=== PATIENT | female | born 1945 | race Caucasian/White ===

== ENCOUNTER 2022-01-06 17:58 | Outpatient (CLI) | payer MEDICARE, SELFPAY ==
[2022-01-06 22:15] LABS: SARS PCR* Negative SARS-CoV-2 (Negative)
== END 2022-01-06 17:59 | disposition home or self-care (01) ==
LOC: KYNREF 17:59
PROVIDERS: PCP Nurse Practitioner Family; Visit Provider Nurse Practitioner Family
DX: Z11.52 Encounter for screening for COVID-19 (principal); R05.9 Cough, unspecified
CPT/HCPCS: 87635

== ENCOUNTER 2022-01-19 09:32 | Outpatient (CLI) | payer MEDICARE, SELFPAY ==
[2022-01-19 13:29] LABS: Basophils Absolute Auto 0.06 K/uL (0.00-0.30); Basophils Percent Auto 0.8 % (0.0-3.0); Eosinophils Absolute Auto 0.13 K/uL (0.00-0.50); Eosinophils Percent Auto 1.8 % (0.0-7.0); Hematocrit 40.7 % (33.0-51.0); Hemoglobin* 13.6 gm/dL (12.0-16.0); Immature Granulocytes Abs Auto 0.01 K/uL (0.00-0.30); Lymphocytes Absolute Auto 1.71 K/uL (0.90-2.90); Lymphocytes Percent Auto 23.1 % (20-44); Mean Corpuscular HGB Conc 33 gm/dL (32-36); Mean Corpuscular Hemoglobin 31 pg (26-34); Mean Corpuscular Volume 93 fL (80-100); Monocytes Percent Auto 7.2 % (0.0-11.0); Neutrophils Absolute Auto 4.95 K/uL (1.7-7.0); Platelet Count* 345 K/uL (140-440); RDW Coefficient of Variation % 12.2 % (11.5-15.5); Red Blood Count 4.38 m/uL (4.00-5.20); White Blood Count* 7.39 K/uL (4.50-11.00)
[2022-01-19 13:46] LABS: Slide Review Reflex No
[2022-01-19 14:07] LABS: Chloride* 99 mmol/L (96-114)
[2022-01-19 14:08] LABS: Potassium* 4.3 mmol/L (3.6-5.1); Sodium* 134 mmol/L (135-149)
[2022-01-19 14:10] LABS: Cholesterol* 216 mg/dL (90-199); Creatinine* 0.8 mg/dL (0.5-1.5); Estimated Glomerular Filt Rate 77 ml/min
[2022-01-19 14:11] LABS: Blood Urea Nitrogen* 13 mg/dL (7-30); Calcium* 9.9 mg/dL (8.4-10.6); Carbon Dioxide* 27 mmol/L (20-32); Glucose* 107 mg/dL (60-115); HDL Cholesterol* 63 mg/dL (>=50); LDL Cholesterol Calculated 130 mg/dL (<100); Triglycerides* 114 mg/dL (40-149)
== END 2022-01-19 09:33 | disposition home or self-care (01) ==
PROVIDERS: PCP Nurse Practitioner Family; Visit Provider Nurse Practitioner Family
DX: Z00.00 Encounter for general adult medical examination without abnormal findings (principal); Z13.0 Encounter for screening for diseases of the blood and blood-forming organs and certain disorders involving the immune mechanism; Z13.1 Encounter for screening for diabetes mellitus; Z13.6 Encounter for screening for cardiovascular disorders
CPT/HCPCS: 36415; 80048; 80061; 85025

== ENCOUNTER 2022-02-13 09:03 | Outpatient (CLI) | payer MEDICARE, SELFPAY ==
--- OUTSIDE RECORDS SUMMARY | 2022-02-13 09:14 | XMS_ITS | Encounter Summary ---
:1945 Author Organization [facility] Address [address] [place] [address] Care Team Providers Name Role Phone Tigre Preciado P.A.-C. Primary Care Provider [phone] Reason for Visit Reason Comments Mouth Lesions Appointment Request (Routine) - Closed Specialty Diagnoses / Procedures Referred By Contact Refer red To Contact Family Medicine Referral ID Status Reason Start Date Expiration Date Visits Requ ested Visits Authorized [id number] Closed 06/30/2021 06/30/2022 1 1 Encounter Details Date Type Department Care Team Description 07/02/2021 Office Visit Department of Family Tigre Preciado Ca ndidiasis Oral (Primary Dx); Medicine, Jeff Edmondson Asthma ([facility]) Clinic, in [address] [address] [place], [place] [phone] (Work) [phone] Social History Tobacco Use Types Packs/Day Years Used Date Smoking Tobacco: Former Cigarettes Quit : 1968 Smokeless Tobacco: Never Alcohol Use Standard Drinks/Week Comments Yes 5 (1 standard drink = 0.6 oz pure alcoho l) Physical Activity Answer Date Recorded On average, how many days per week do you engage in moderate to 3 days 12/01/2019 strenuous exercise (like walking fast, running, jogging, dancing, swimming, biking, or other activities that cause a light or heavy sweat)? On average, how many minutes do you engage in exercise at th is 60 min 12/01/2019 level? Stress Answer Date Recorded Do you feel stress - tense, restless, nervous, or Only a lit tle 12/01/2019 anxious, or unable to sleep at night because your mind is troubled all the time - these days? Financial Resource Strain Answer Date Recorded How hard is it for you to pay for the very basics like Not h luiza at all 12/01/2019 food, housing, medical care, and heating? Food Insecurity Answer Date Recorded Within the past 12 months, you worried that your food would Never true 12/01/2019 run out before you got money to buy more. Within the past 12 months, the food you bought just didn't N ever true 12/01/2019 last and you didn't have money to get more. Transportation Needs Answer Date Recorded In the past 12 months, has lack of transportation kept you f rom No 12/01/2019 medical appointments or from getting medications? In the past 12 months, has lack of transportation kept you f rom No 12/01/2019 meetings, work, or getting things needed for daily living? Sex Assigned at Date Recorded Female 01/14/2021 8:28 AM CDT documented as of this encounter Last Filed Vital Signs Vital Sign Reading Time Taken Comments Blood Pressure 139/83 07/02/2021 9:16 AM CDT Pulse 84 07/02/2021 9:16 AM CDT Temperature 36.7 ??C (98.1 ??F) 07/02/2021 9:11 AM CDT Respiratory Rate 16 07/02/2021 9:11 AM CDT Oxygen Saturation - - Inhaled Oxygen Concentration - - Weight 57.6 kg (126 lb 15.8 oz) 07/02/2021 9:11 AM CDT Height - - Body Mass Index 22.22 01/27/2021 1:24 PM CDT documented in this encounter Progress Notes Tigre Preciado P.A.-C. - 07/02/2021 9:30 AM CDT SUBJECTIVE CHIEF COMPLAINT / REASON FOR VISIT Isadora Back is a 76 y.o. female who presents for evaluation of Mouth Lesions. HISTORY OF PRESENT ILLNESS Isadora presents today with complaints of a sore inside her mouth. She has a history of oral candidiasis in the past has responded nicely to nystatin. She has been trying some different toothpaste and this may have causing irritation. She does also have some asthma she had pulmonary function testing donelast year I did review this with her there was not a significant response to bronchodilators. She continues to use albuterol on an as-needed basis. OBJECTIVE Vitals: 07/02/21 0911 07/02/21 0916 BP: 150/82 139/83 BP Location: Right arm Right arm Patient Position: Sitting Sitting Cuff Size: Regular Regular Pulse: 89 84 Resp: 16 Temp: 36.7 ??C TempSrc: Temporal Weight: 57.6 kg Body mass index is 22.22 kg/m??. PHYSICAL EXAMINATION In general she appears in no acute distress Heart: Regular rate rhythm no murmurs Lungs: Clear to auscultation ENT: Oropharynx is moist she does have a whitish colored looking lesions inside of her lower lip these are mildly tender consistent with thrush ASSESSMENT / PLAN #1 Candidiasis Oral I am going to treated with nystatin swish and swallow. If her symptoms worsen or not improve she will let us know #2 Asthma (HCC) She will continue to use the albuterol as needed. It would be reasonable to try some Singulair when her symptoms flare. I called this in for her. She is in agreement with this plan if she has any further questions or problems she will let us know. Tigre Preciado P.A.-C. 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 PCP - General Family Medicine 10/11/19 [address] [place] [address] documented as of this encounter
--- OUTSIDE RECORDS SUMMARY | 2022-02-13 09:14 | XMS_ITS | Clinical Summary ---
:1945 Author Organization [facility] Address [address] [place] [address] Care Team Providers Name Role Phone Tigre Preciado P.A.-C. Primary Care Provider [phone] Source Comments Patient records contain information from all sites at [facility]. For routine questions regarding patient records, call [phone] during business hours, M-F 8:00 AM - 5:00 PM Central Time. Record requests for emergency care only can be directed to [phone] at any time.[facility] Allergies Active Allergy Reactions Severity Noted Date Comments Cefuroxime Axetil GI intolerance Medium 06/02/2017 Other re action(s): GI Upset Ciprofloxacin Tendonitis 08/05/2012 Other reaction (s): Myalgia Fluconazole Other (see comments), High 01/20/2010 Lip bl ister, Anaphylaxis throat closing Latex Rash 03/24/2015 Lidocaine-Epinephrine Palpitations 11/07/2014 Metronidazole Tendonitis 08/05/2012 Other reaction (s): Myalgia Sulfa (Sulfonamide Nausea Only 02/28/2013 Antibiotics) Medications Medication Sig Dispensed Refills Start Date End Date Status CRANBERRY FRUIT cranberry oral 0 08/13/2016 Active EXTRACT (CRANBERRY tablet PRN: ORAL) Urinary discomfort LACTOBACILLUS Take by mouth 0 10/05/2012 A ctive ACIDOPHILUS daily. (ACIDOPHILUS ORAL) calcium Chew 1 tablet. 0 11/07/2009 Acti ve carbonate-vitamin D3 1,250 mg (500 mg calcium)-400 unit per chewable tablet multivitamin tablet Take 1 tablet by 0 06/28/2009 Active mouth. magnesium 200 mg Take 400 mg by 0 Active tablet mouth daily. vitamin Take 1 tablet by 0 Act angelique A,C,A-uyjbbc-zrvtrkby mouth daily. (OCUVITE W/LUTEIN) 1,000 Unit-200 mg-60 Unit-2 mg tablet bromelains (PINEAPPLE Take by mouth 2 0 Active EXTRACT ORAL) (two) times a day. dicyclomine (BENTYL) Take 1 capsule 180 capsule 3 10/31/2020 Active 10 mg capsule (10 mg total) by mouth 4 (four) times a day as needed (abdominal pain or cramps). SUMAtriptan (IMITREX) Take 1 tablet (25 9 tablet 5 05/30/2021 Active 25 mg tablet mg total) by mouth as needed for migraine. May repeat dose once in 2 hours if migraine unresolved. nystatin (MYCOSTATIN) Take 5 mL 280 mL 0 07/02/2021 Active 100,000 unit/mL (500,000 Units suspension total) by mouth 4 (four) times a day. Swish in mouth and swallow albuterol 90 Inhale 2 puffs 8 g 3 07/02/2021 A ctive mcg/actuation inhaler every 4 (four) hours as needed for wheezing. montelukast Take 1 tablet (10 90 tablet 3 07/02/2021 Active (SINGULAIR) 10 mg mg total) by tablet mouth at bedtime. Active Problems Problem Noted Date Cystocele 12/01/2019 Overview: Grade 2-3 cystocele present. Prefers to manage with referral to [facility] and accupuncture at this time. Last Assessment & Plan: Referral to [facility] was completed in f axed. 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 We also discussed management options with vaginal estrogen therapy, pessary, or surgical intervent ion. She is not interested in these opti ons at this time. I recommend she follow up as needed in the future. Hyponatremia 11/13/2019 Neuropathy Peripheral 06/14/2018 Osteoporosis 07/20/2017 Anxiety 03/19/2013 Polyp Colon Personal History 11/10/2012 Asthma 07/12/2009 Resolved Problems Problem Noted Date Resolved Date Cheilitis Angular 12/01/2019 12/30/2020 Overview: Prescription for miconazole 2% ointment was faxed to her pharmacy and she will apply 2 times daily for up to 30 days. If symptoms do not improve I recommend she follow up with her primary care provider or contact me. At this point she has no additional concerns or questions and is agreeable to this plan of care. Immunizations Name Administration Dates Next Due Influenza, Injectable, Quadrivalent 02/19/2020 Influenza, Seasonal, Injectable 04/06/2012, 01/21/2009, 11/0 06/2007, 02/15/2007, 02/24/2006 Influenza, Unspecified 03/07/2014, 02/16/2013, 04/06/2012 PCV13 05/29/2014 PPSV23 04/08/2012 RZV (SHINGRIX) 02/21/2020 (Deferred: Other) SARS-COV-2 (COVID-19) - MODERNA 07/04/2020, 06/06/2020 Td (Adult), adsorbed 01/23/2003 Tdap 04/03/2013 Zoster, Unspecified 02/21/2020 (Deferred: Other) influenza vaccine quad 02/03/2021, 02/19/2020 (FLUZONE/FLUARIX) (6 months and older)(PF) Family History Medical History Relation Name Comments Cancer Brother tibozena laryngeal cancer Cancer Father laryngeal cancer Hypertension Father Breast cancer Mother COPD Mother Diabetes Mother Hypertension Mother Macular degeneration Mother Breast cancer Mother's Sister Coronary artery disease Sister nara Pacemaker pulse generator Sister nara Retinal detachment Sister nara Relation Name Status Comments Brother tibozena (Age 52) Father (Age 80) Mother (Age 90) Mother's Sister Sister nara Alive Social History Tobacco Use Types Packs/Day Years Used Date Smoking Tobacco: Former Cigarettes Quit : 1968 Smokeless Tobacco: Never Tobacco Cessation: Counseling Given: Yes Alcohol Use Standard Drinks/Week Comments Yes 5 [...] Date Recorded Female 01/14/2021 8:28 AM CDT Last Filed Vital Signs Vital Sign Reading Time Taken Comments Blood Pressure 139/83 07/02/2021 9:16 AM CDT Pulse 84 07/02/2021 9:16 AM CDT Temperature 36.7 ??C (98.1 ??F) 07/02/2021 9:11 AM CDT Respiratory Rate 16 07/02/2021 9:11 AM CDT Oxygen Saturation 97% 01/27/2021 1:24 PM CDT Inhaled Oxygen Concentration - - Weight 57.6 kg (126 lb 15.8 oz) 07/02/2021 9:11 AM CDT Height 161 cm (5' 3.39) 01/27/2021 1:24 PM CDT Body Mass Index 22.22 01/27/2021 1:24 PM CDT Plan of Treatment Health Maintenance Due Date Last Done Comments CT Colonography 1945 Cologuard 1945 Zoster Vaccines (1 of 2) 1997 Bone Density Scan Monitoring 07/02/2019 07/01/2017 COVID-19 Vaccine (5 - Booster for 12/12/2021 10/17/2021, , Moderna series) 07/04/2020, Additional history exists Mammogram 01/21/2022 01/21/2021, 11/21/2019, 06/14/2018, Additional history exists Visit: Annual, age 65+ 07/02/2022 07/02/2021 Colonoscopy 03/13/2023 03/13/2020, 11/10/2012, 11/10/2012 Colorectal Cancer Surveillance 03/13/2023 DTaP,Tdap,and Td Vaccines (2 - Td 04/03/2023 04/03/2013, or Tdap) Fasting Glucose for Diabetes 10/19/2023 10/18/2020, 020, Screening 10/12/2019, Additional history exists Pneumococcal vaccine (65+ years) Completed 05/29/2014, Hepatitis C Screening Completed 06/01/2016 Depression Screening (Annual Completed 06/26/2021 PHQ-2) Fall Risk Screen (Annual) Completed 06/26/2021 Influenza Vaccine Completed 01/19/2022, 02/03/2021, 02/19/2020, Additional history exists Insurance Payer Benefit Plan / Subscriber ID Effective Dates Phone Addre ss Type Group UCARE UCARE FOR [id number] 2019-Present [phone] [address] [place] [address] Care Teams Night Filler Relationship Specialty Start Date End Date Tigre Preciado P.A.-C. PCP - General Family Medicine 10/11/19 [address] [place] [address]
--- OUTSIDE RECORDS SUMMARY | 2022-02-13 09:14 | XMS_ITS | Encounter Summary ---
:1945 Author Organization [facility] Address [address] [place] [address] Care Team Providers Name Role Phone Tigre Preciado P.A.-C. Primary Care Provider [phone] Encounter Details Date Type Department Care Team Description 02/24/2021 Admin Visit Department of Family Medicine, [address] [address] [facility] [phone] Social History Tobacco Use Types Packs/Day Years Used Date Smoking Tobacco: Former Cigarettes Quit : 1967 Smokeless Tobacco: Never Alcohol Use Standard Drinks/Week [...] minutes do you engage in exercise at is 60 min 12/01/2019 level? 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 PCP - General Family Medicine 10/11/[address] [place] [phone] documented as of this encounter
--- OUTSIDE RECORDS SUMMARY | 2022-02-13 09:14 | XMS_ITS | Encounter Summary ---
:1945 Author Organization [facility] Address [address] [place] [address] Care Team Providers Name Role Phone Tigre Preciado P.A.-C. Primary Care Provider [phone] Reason for Visit Reason Comments Cough productive cough, sinus drai nage, bouts of diarrhea, fatigue for the last four days - diagnosed with bronch itis on 01/07/2021 Outpatient (Routine) - Closed Specialty Diagnoses / Procedures Referred By Contact Refer red To Contact Family Medicine Tigre Preciado P. A.-C. [facility] Region [address] [place] [address] Referral ID Status Reason Start Date Expiration Date Visits Requ ested Visits Authorized [id number] Closed 12/30/2020 12/30/2021 1 1 Encounter Details Date Type Department Care Team Description 01/27/2021 Office Visit Department of [facility] Mary Segovia, Segundo nba Cough (Primary Dx); Medicine, Jeff Edmondson Drip Post Nasal; Clinic, in [place], [address] [facility]; [place], [place] Cerumen Impacted Right [address] [facility] [address] [place], [place] [phone] (Work) [phone] Social History Tobacco Use Types Packs/Day Years [...] Sign Reading Time Taken Comments Blood Pressure 151/84 01/27/2021 1:27 PM CDT Pulse 69 01/27/2021 1:27 PM CDT Temperature 36.2 ??C (97.1 ??F) 01/27/2021 1:24 PM CDT Respiratory Rate 16 01/27/2021 1:24 PM CDT Oxygen Saturation 97% 01/27/2021 1:24 PM CDT Inhaled Oxygen Concentration - - Weight 57.2 kg (126 lb 1.7 oz) 01/27/2021 1:24 PM CDT Height 161 cm (5' 3.39) 01/27/2021 1:24 PM CDT Body Mass Index 22.07 01/27/2021 1:24 PM CDT documented in this encounter Patient Instructions Patient InstructionsWitte, Mary K, P.A.-C. - 01/27/2021 1:30 PM CDT Cetrizine (Zyrtec) once nightly for drainage. documented in this encounter Progress Notes Mary Segovia P.A.-C. - 01/27/2021 1:30 PM CDT SUBJECTIVE CHIEF COMPLAINT/REASON FOR VISIT Chief Complaint Patient presents with ??? Cough productive cough, sinus drainage, bouts of diarrhea, fatigue for the last four days - diagnosed with bronchitis on 01/07/2021 HISTORY OF PRESENT ILLNESS Isadora Back is a pleasant 75 y.o. female who presents to the clinic today for evaluation of upperrespiratory symptoms. Patient reports multiple bouts of bronchitis over the last few months. She has been seen in November, December and now again. Patient woke Wednesday morning with headache at the base of her skull. Patient reports cough which has improved. She continues to have lots of sinus congestion and postnasal drip. With this bout of bronchitis she has also had associated diarrhea, sweats, weakness, brain fog and fatigue. She denies fevers. Patient was at the [facility] this weekend and may have had COVID exposure there. She is fully vaccinated. Patient has been using Mucinex and her grandson's nebulizer. She uses her albuterol inhaler only when she is coughing really hard. REVIEW OF SYSTEMS Pertinent positive ROS are listed above in HPI. Patient Active Problem List Diagnosis ??? Anxiety ??? Polyp Colon Personal History ??? Asthma (HCC) ??? Osteoporosis ??? Neuropathy Peripheral ??? Hyponatremia ??? Cystocele ALLERGIES/CONTRAINDICATIONS Allergies Allergen Reactions ??? Fluconazole Other (see comments) and Anaphylaxis Lip blister, throat closing ??? Cefuroxime Axetil GI intolerance Other reaction(s): GI Upset ??? Azithromycin Nausea Only and GI intolerance Mood changes Other reaction(s): Headache Mood changes ??? Ciprofloxacin Tendonitis Other reaction(s): Myalgia ??? Latex Rash ??? Lidocaine-Epinephrine Palpitations ??? Metronidazole Tendonitis Other reaction(s): Myalgia ??? Sulfa (Sulfonamide Antibiotics) Nausea Only CURRENT MEDICATIONS Current Outpatient Medications: ??? albuterol (PROAIR HFA) 90 mcg/actuation inhaler, Inhale 2 puffs every 4 (four) hours as needed.,Disp: , Rfl: ??? calcium carbonate-vitamin D3 1,250 mg (500 mg calcium)-400 unit per chewable tablet, Chew 1 tablet., Disp: , Rfl: ??? CRANBERRY FRUIT EXTRACT (CRANBERRY ORAL), cranberry oral tablet PRN: Urinary discomfort, Disp: ,Rfl: ??? dicyclomine (BENTYL) 10 mg capsule, Take 1 capsule (10 mg total) by mouth 4 (four) times a day as needed (abdominal pain or cramps)., Disp: 180 capsule, Rfl: 3 ??? LACTOBACILLUS ACIDOPHILUS (ACIDOPHILUS ORAL), Take by mouth daily., Disp: , Rfl: ??? magnesium 200 mg tablet, Take 400 mg by mouth daily., Disp: , Rfl: ??? multivitamin tablet, Take 1 tablet by mouth., Disp: , Rfl: ??? SUMAtriptan (IMITREX) 25 mg tablet, Take 1 tablet (25 mg total) by mouth as needed for migraine.May repeat dose once in 2 hours if migraine unresolved., Disp: 9 tablet, Rfl: 5 ??? vitamin A,C,J-txsacu-wildqxjz (OCUVITE W/LUTEIN) 1,000 Unit-200 mg-60 Unit-2 mg tablet, Take 1 tablet by mouth daily., Disp: , Rfl: ??? bromelains (PINEAPPLE EXTRACT ORAL), Take by mouth 2 (two) times a day., Disp: , Rfl: OBJECTIVE VITAL SIGNS Vitals: 01/27/21 1327 BP: 151/84 Pulse: 69 Resp: Temp: SpO2: PHYSICAL EXAMINATION General: Well-nourished, well-developed 75 y.o. in no apparent distress. Awake, alert, age appropriate. HEENT: Head is normocephalic, atraumatic. Pupils round and reactive bilaterally. EOM's intact. Conjunctivae and sclerae are clear. Right TM impacted by cerumen. Left TM normal. Oropharynx pink and moist without exudate or erythema. Neck: Neck is supple without lymphadenopathy. Cardiovascular: Regular rate and rhythm without murmurs. Lungs: Clear to auscultation bilaterally with no adventitious sounds ASSESSMENT / PLAN IMPRESSION/REPORT/PLAN: #1 Chronic Cough #2 Drip Post Nasal #3 Fatigue -With constellation of current symptoms recommend retesting for COVID. From chart review it appears patient has had issues with chronic cough over the years. She has asthma listed on her problem list, however has never had spirometry done. Recommend obtaining spirometry with bronchodilation for better evaluation of asthma versus obstructive lung disease pattern to guide treatment. Discussed she may benefit from every day inhaler. -Recommend use of oral antihistamine such as Zyrtec for treatment of postnasal drip. Patient may continue to use Mucinex for nasal congestion. Ibuprofen/Tylenol may be used for headache. -Pulmonary Function Tests; Future; Expected date: 01/27/2021 #4 Impacted Cerumen Right -Ear lavage was terminated due to pain. Recommend use of Debrox ear drops in right ear per instructions on back of box. All questions have been answered. Patient demonstrated understanding and verbalized agreement with the plan. Total time spent is 25 minutes. Mayr Segovia P.A.-C. Mary Segovia P.A.-C. - 01/27/2021 1:30 PM CDT Isadora is seen by Mary Segovia who ordered lavage of the right ear. Verified there are no PE (pressure equalization) tubes in [address] place. The procedure was explained to the patient and verbal consent obtained. Irrigation was performed using Rhino Ear Wash System and 250 cc warm tap water. Irrigant returned with absent amount of none cerumen. The procedure was tolerated with difficulty had to stop due to patient said that it was hurting her, without complication. Instructed not to place cotton tip swabs orother foreign objects in ears and to call the office if there is pressure, discomfort, irritability,and/or decreased hearing. Understanding verbalized. Provider notified of completion. 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 PCP - General Family Medicine 10/11/19 [address] [place] [phone] documented as of this encounter
--- OUTSIDE RECORDS SUMMARY | 2022-02-13 09:14 | XMS_ITS | Encounter Summary ---
:1945 Author Organization [facility] Address [address] [place] [address] Care Team Providers Name Role Phone Tigre Preciado P.A.-C. Primary Care Provider [phone] Reason for Referral Outpatient (Routine) - Closed Specialty Diagnoses / Procedures Referred By Contact Refer red To Contact Family Medicine Tigre [facility]ado P. A.-C. [facility] [address] [phone] Referral ID Status Reason Start Date Expiration Date Visits Requ ested Visits Authorized [id number] Closed 12/30/2020 12/30/2021 1 1 Reason for Visit Reason Comments Follow-up labs taken in October. She will have PAP and Mammo in the future. Outpatient (Routine) - Closed Specialty Diagnoses / Procedures Referred By Contact Refer red To Contact Family Medicine Tigre Preciado P. A.-C. [facility] [address] [phone] Referral ID Status Reason Start Date Expiration Date Visits Requ ested Visits Authorized [id number] Closed 11/13/2019 11/12/2020 1 1 Encounter Details Date Type Department Care Team Description 12/30/2020 Comprehensive Visit Department of Disha Preciado (OPAL) (Primary Dx); Family MedicineTigre P.A.-C. Hyponatremia; [facility], [address] Cystocele; in [facility] [place], [place] Osteoporosis; [place] [address] Polyp Colon Personal History; [address] [phone] General Medical Examination Adult DEJA NOVAK (Work) [phone] Social History Tobacco Use Types Packs/Day Years Used Date Smoking Tobacco: Former Cigarettes Quit : 1967 Smokeless Tobacco: Never Tobacco Cessation: Counseling Given: [...] Sign Reading Time Taken Comments Blood Pressure 136/81 12/30/2020 10:47 AM CDT Pulse 83 12/30/2020 10:47 AM CDT Temperature 36.1 ??C (97 ??F) 12/30/2020 10:47 AM CDT Respiratory Rate 14 12/30/2020 10:47 AM CDT Oxygen Saturation 100% 12/30/2020 10:47 AM CDT Inhaled Oxygen Concentration - - Weight 57.4 kg (126 lb 8.7 oz) 12/30/2020 10:47 AM CDT Height 161 cm (5' 3.39) 12/30/2020 10:47 AM CDT Body Mass Index 22.14 12/30/2020 10:47 AM CDT documented in this encounter Progress Notes Tigre Preciado P.A.-C. - 12/30/2020 11:00 AM CDT CHIEF COMPLAINT / REASON FOR VISIT Isadora Back is a 75 y.o. female who presents for evaluation of Follow-up (labs taken in October. Shewill have PAP and Mammo in the future. ). HISTORY OF PRESENT ILLNESS Isadora presents today for her yearly medication review. Overall she is doing well she had blood drawna month or 2 ago and this does show mild hyponatremia but otherwise no significant abnormalities. She has asthma in rarely uses her albuterol inhaler. She has a cystocele and continues to do her pelvicfloor exercises which seems to continue helping with this. She has osteoporosis she did not like theway Fosamax made her feel so she continues with calcium and weight-bearing exercise. She has a history of a colon polyp she will need another colonoscopy in a couple years. She otherwise has no new concerns she has some irritable bowel that flares up occasionally Bentyl has helped with this somewhat she occasionally does get the diarrhea but she is going to try some increased fiber. Patient Active Problem List Diagnosis ??? Anxiety ??? Polyp Colon Personal History ??? Asthma (HCC) ??? Osteoporosis ??? Neuropathy Peripheral ??? Hyponatremia ??? Cystocele OBJECTIVE Vitals: 12/30/20 1047 BP: 136/81 BP Location: Left arm Patient Position: Sitting Cuff Size: Small Pulse: 83 Resp: 14 Temp: 36.1 ??C TempSrc: Temporal SpO2: 100% Weight: 57.4 kg Height: 161 cm Body mass index is 22.14 kg/m??. PHYSICAL EXAM General: Patient appears in no acute distress. ENT: TMs no erythema. Throat no erythema. Neck: No lymphadenopathy. No thyroid masses. Heart: Regular rate and rhythm. No murmurs. Lungs: Clear to auscultation. Abdomen: Soft and nontender to palpation. IMPRESSION / REPORT / PLAN #1 Asthma (HCC) She will continue with the inhaler as needed #2 Hyponatremia I will recheck her sodium again next year with metabolic panel. This is just slightly abnormal and Ithink we can continue to monitor this without further treatment #3 Cystocele She would like to follow with OBGYN but says overall she will continue her exercises and follow-up with them next year #4 Osteoporosis She will continue her weight-bearing exercise and calcium intake #5 Polyp Colon Personal History She will be due for colonoscopy in a couple years. #6 General Medical Examination Adult She has irritable bowel and this is somewhat frustrating for but overall she seems to control it pretty well the Bentyl helps the fiber will hopefully help as well. She is up-to-date on her immunizations I recommend she continue with an active lifestyle as much as possible. If she has any questions orproblems she will let us know otherwise follow up as needed. Total time spent 30 Tigre Preciado P.A.-C. documented in this encounter Plan of Treatment Scheduled Orders Name Type Priority Associated Diagnoses Order S [facility] Basic Metabolic Panel Lab Routine Hyponatremia Expect ed: 12/30/2021 (Approximate), Expires: 12/31/2023 Scheduled Referrals Name Type Priority Associated Diagnoses Order S [facility] Family Medicine Outpatient Referral Routine Expec erickson: office visit 12/30/2021 (clinic) (Approximate), Expires: 12/31/2023 documented as of this encounter Visit Diagnoses Diagnosis Asthma (HCC) - Primary Hyponatremia Cystocele Osteoporosis Polyp Colon Personal History General Medical Examination Adult documented in this encounter Additional Health Concerns Assessment Noted Time PHQ-9 Depression Total Score: 1 06/02/2017 9:34 AM BAKER BISCUIT documented as of this encounter Care Teams Director Community Health Nursing Relationship Specialty Start Date End Date Tigre Preciado P.A.-C. PCP - General Family Medicine 10/11/19 [address] [place] [address] documented as of this encounter
--- OUTSIDE RECORDS SUMMARY | 2022-02-13 09:14 | XMS_ITS | Encounter Summary ---
:1945 Author Organization [facility] Address [address] [place] [address] Care Team Providers Name Role Phone Tigre Preciado P.A.-C. Primary Care Provider [phone] Reason for Visit Reason Comments Medication Question Encounter Details Date Type Department Care Team Description 02/07/2021 Nurse Triage Department of [facility] Nanda Barakat Me dication Question Medicine, [facility], [facility] [phone] [place] (Work) [address] [place] [phone] Social History Tobacco Use Types Packs/Day Years [...] AM CDT documented as of this encounter Miscellaneous Notes Telephone Encounter - Nanda Barakat R.N. - 02/07/2021 5:15 PM CDT Chief Complaint / Reason for Call Patient is a 75 y.o. female calling regarding Medication Question. Assessment Concern: Patient was prescribed doxycyline today by her PCP. She had 2 messages into the clinic requesting changing the medication to amoxicillin or a Z- pac. Patient received no response. Offered to send message to our on-call provider to request switching medication. Let patient know response could take up to 4 hours. Patient was upset that medication couldn't be changed right now. Shestates she will be seen at to get her medication. documented in this encounter Plan of Treatment Not on filedocumented as of this encounter Visit Diagnoses Not on filedocumented in this encounter Additional Health Concerns Assessment Noted Time PHQ-9 Depression Total Score: 1 06/02/2017 9:34 AM CARE ATTENDANT documented as of this encounter Care Teams Systems Software Designer Relationship Specialty Start Date End Date Tigre Preciado P.A.-C. PCP - General Family Medicine 10/11/[address] [place] [phone] documented as of this encounter
--- OUTSIDE RECORDS SUMMARY | 2022-02-13 09:14 | XMS_ITS | Encounter Summary ---
:1945 Author Organization [facility] Address [address] [place] [address] Care Team Providers Name Role Phone Tigre Preciado P.A.-C. Primary Care Provider [phone] Reason for Visit Reason Comments Form Review [facility] POC 03/27/21 Encounter Details Date Type Department Care Team Description 03/28/2021 Clinical Communication Department of Ilana, Form Review ([facility], [facility] POC 03/27) [facility] [address] [facility] [address] [place], [place] [phone] (Work) [phone] Social History Tobacco Use Types Packs/Day Years [...] this encounter Miscellaneous Notes Telephone Encounter - Carie Ahmadi - 03/31/2021 9:07 AM CST Form faxed back to facility and sent for scanning. TIATIONS DIRECTOR Telephone Encounter - Carie Ahmadi - 03/28/2021 11:43 AM CST Form was emailed to Tigre Preciado PA-C for electronic review/signature. SUPERVISOR PROCESS TESTING: [facility] PHONE NUMBER: [phone] INFO REQUESTED: PT POC 03/27/21 INSTRUCTIONS: Fax form to [phone] TIATIONS DIRECTOR documented in this encounter Plan of Treatment Not on filedocumented as of this encounter Visit Diagnoses Not on filedocumented in this encounter Additional Health Concerns Assessment Noted Time PHQ-9 Depression Total Score: 1 06/02/2017 9:34 AM NEGOTIATIONS DIRECTOR documented as of this encounter Care Teams Automobile Brake Bonder Relationship Specialty Start Date End Date Tigre Preciado P.A.-C. PCP - General Family Medicine 10/11/[address] [place] [phone] documented as of this encounter
--- OUTSIDE RECORDS SUMMARY | 2022-02-13 09:14 | XMS_ITS | Encounter Summary ---
:1945 Author Organization [facility] Address [address] [place] [address] Care Team Providers Name Role Phone Tigre Preciado P.A.-C. Primary Care Provider [phone] Reason for Visit Reason Comments Cough JAMARCUS Nurse Barb Encounter Details Date Type Department Care Team Description 07/17/2021 Nurse Triage Department of [facility] Garima Serrato; JAMARCUS Nurse Medicine, Ozaukeeedaurdo Dozier R.N. [facility], [facility] [phone] [place] (Work) [address] [place] [phone] Social History Tobacco Use Types Packs/Day [...] this encounter Miscellaneous Notes Telephone Encounter - Marco Ortiz L.P.N. - 07/17/2021 12:44 PM CDT Patient has an appointment set up with Tammy Dobson on July 18. Telephone Encounter - Tigre Preciado P.A.-C. - 07/17/2021 12:14 PM CDT I would really like to listen to her lungs. I think it is best if she comes in Telephone Encounter - Phuong Alexandra - 07/17/2021 11:56 AM CDT SUBJECTIVE CHIEF COMPLAINT / REASON FOR CALL Cough and COVID Nurse Line Information Discussed Called and informed patient she will need to be seen per Chato Serra. Patient states shewas feeling better on 07/16/21 but now does not feel very well again. Patient states she does have some tightness in the chest, but it is not as bad as it was. Also, feeling weak and shaky inside. Patient states she has been doing everything she can to help with her cough, she has been using a nebulizer. Patient was going to go soak in a warm bath hoping that would help her to feel better. Patient states that she is really not wanting to drive for an appointment and would like to have an antibiotic. Patient states she knows that antibiotics don't always work, but would like to try something before co yudelka in. Patient was transferred to scheduling to assist with an appointment. PLAN Disposition/Recommendation: notified provider and awaiting recommendations Information/Education: patient/caller able to teach back Caller agreeable to plan of care: yes The following references were used: provider Tigre Preciado P.A.-C. Telephone Encounter - Tigre Preciado P.A.-C. - 07/17/2021 11:22 AM CDT She needs to be seen Telephone Encounter - Garima Serrato R.N. - 07/17/2021 9:36 AM CDT COVID-19 Nurse Line Screening ASSESSMENT Initial Screening Pathway Select appropriate pathway: : Adult In the last 48 hours, have you had a fever* OR symptoms that are unrelated to a preexisting illness?: New cough, New headache Date of symptom onset: 07/13/21 COVID Symptomatic Screening Do you have any of the following urgent symptoms?: No urgent symptoms noted (Continue Screening) Have you received a COVID-19 vaccine in the last 72 hours? : No vaccine received (Continue Screening) Have you had close contact* with a person who has tested positive with COVID-19 in the past 14 days?: No (Continue Screening) Have you tested positive for COVID-19 in the last 45 days?: No. COVID-19 testing is indicated (Continue Screening for Additional Testing) Additional Screening for Influenza, RSV and Strep Select appropriate region: : [place] Do you have any of the following respiratory syntonical virus (RSV) complications? : No complications noted (Continue Screening) Do you have any of the following high risk influenza criteria?: Age 65 years or older, Chronic pulmonary disease including asthma or COPD, 1 or more high risk flu complications are noted. (Continue Screening) Based on your last response, you are considered high risk for Influenza complications and may benefit taking a medication called Tamiflu?? (Oseltamivir). Are you interested in pursuing a prescription for Tamiflu?? (Oseltamivir)?: No, patient doesn't qualify since symptoms started >48h ago (ContinueScreening) Are all of the following Strep criteria met? : No, all criteria are not met. Influenza testing is indicated. (End Screening) Symptom Onset Date of symptom onset: 07/13/21 Testing Recommendation Endpoint Is testing recommended? : Recommended to test Further Triage Needs Any further triage needs? : No further concerns noted. PLAN Endpoint recommendation: Testing indicated, patient declining testing. Standard Care Points -Get a COVID -19 vaccine as soon as you can if not fully vaccinated. -Wash hands frequently with soap and water, use hand tag stringer if soap and water aren't available. -Wear a mask over your nose and mouth to help protect yourself and others if not fully vaccinated and having no symptoms -Stay 6 feet between yourself and others who don't live with you. -Avoid crowds and poorly ventilated indoor spaces. -Seek emergent care if any of the following occur Trouble breathing Bluish lips or face Persistent pain or pressure in the chest New confusion or inability to rouse. -Notify your regular care provider of any new or worsening symptoms. Patient agreeable to plan of care: No The following references were used: [facility] novel coronavirus (COVID- 19) resources Nursing judgement Telephone Encounter - Garima Serrato R.N. - 07/17/2021 9:15 AM CDT Chief Complaint / Reason for Call Patient is a 76 y.o. female calling regarding Cough and COVID Nurse Line. Assessment Concern: Patient is experiencing a cough, headache and sinus congestion. The cough is productive of clear-yellow mucus. The cough interferes with sleep. She does not experience long lasting coughing fits. The headache is located around her RIGHT eye. She describes the pain as aching/throbbing and rates it an 8 out of 10. The headache has resolved at the time of this call. The sinus congestion is on the LEFT side. She denies fever, chest pain or difficulty breathing. Patient had a negative at-home COVID test. Present for: 5 days Home cares tried: Mucinex DM, nasal rinses, inhaler and breathing treatments Calling to request: Treatment The recommended disposition is See a health care provider within 24 hours. Patient prefers to have amessage sent to primary care Patient would like to know if she has to be seen or if a prescription for an antibiotic can be sent to [facility] on file. Reason for Disposition ??? [1] Known COPD or other severe lung disease (i.e., bronchiectasis, cystic fibrosis, lung surgery) AND [2] worsening symptoms (i.e., increased sputum purulence or amount, increased breathing difficulty Protocols used: COUGH - ACUTE [id number] Care Advice Patient/Caregiver understands and will follow care advice?: Yes, able to teach back CALL BACK IF: * You become worse. CARE ADVICE given per Cough - Acute Productive (Adult) guideline. documented in this encounter Plan of Treatment Not on filedocumented as of this encounter Visit Diagnoses Not on filedocumented in this encounter Additional Health Concerns Assessment Noted Time PHQ-9 Depression Total Score: 1 06/02/2017 9:34 AM SOLE BUFFER documented as of this encounter Care Teams Manager Public Relationship Specialty Start Date End Date Tigre Preciado P.A.-C. PCP - General Family Medicine 10/11/[address] [place] [phone] documented as of this encounter
--- OUTSIDE RECORDS SUMMARY | 2022-02-13 09:14 | XMS_ITS | Encounter Summary ---
:1945 Author Organization [facility] Address [address] [place] [address] Care Team Providers Name Role Phone Tigre Preciado P.A.-C. Primary Care Provider Reason for Visit Reason Comments Form Review [facility] PT 11/25/20 POC Encounter Details Date Type Department Care Team Description 11/25/2020 Clinical Communication Department of Ilana, Form Review ([facility], PT 11/25/20 P OC ) [facility] [address] [facility] [address] [place], [place] [phone] (Work) [phone] Social History Tobacco Use Types Packs/Day Years [...] Notes Telephone Encounter - Carie Ahmadi - 11/25/2020 4:56 PM CDT Form faxed back to facility and sent for scanning. Telephone Encounter - Carie Ahmadi - 11/25/2020 4:17 PM CDT Form was emailed to Tigre Preciado PA-C for electronic review/signature. SHUTTLECOCK FEATHER TRIMMER: [facility] Physical Therapy PHONE NUMBER: [phone] INFO REQUESTED: POC 11/25/20 INSTRUCTIONS: Fax form to [phone] documented in this encounter Plan of Treatment Not on filedocumented as of this encounter Visit Diagnoses Not on filedocumented in this encounter Additional Health Concerns Assessment Noted Time PHQ-9 Depression Total Score: 1 06/02/2017 9:34 AM RADAR SYSTEMS ENGINEER documented as of this encounter Care Teams Silver Wrapper Relationship Specialty Start Date End Date Tigre Preciado P.A.-C. PCP - General Family Medicine 10/11/[address] [place] [phone] documented as of this encounter
--- OUTSIDE RECORDS SUMMARY | 2022-02-13 09:14 | XMS_ITS | Encounter Summary ---
:1945 Author Organization [facility] Address [address] [place] [address] Care Team Providers Name Role Phone Tigre Preciado P.A.-C. Primary Care Provider [phone] Encounter Details Date Type Department Care Team Description 02/11/2021 Orders Only [facility] Sa juani Rivera M.D. [address] [place], [place] [phone] (Wo rk) Social History Tobacco Use Types Packs/Day Years [...] Depression Total Score: 1 06/02/2017 9:34 AM LETTER SORTING MACHINE OPERATOR documented as of this encounter Care Teams Lead Applications Developer Relationship Specialty Start Date End Date Tigre Preciado P.A.-C. PCP - General Family Medicine 10/11/[address] [place] [phone] documented as of this encounter
--- OUTSIDE RECORDS SUMMARY | 2022-02-13 09:14 | XMS_ITS | Encounter Summary ---
:1945 Author Organization [facility] Address [address] [place] [address] Care Team Providers Name Role Phone Tirge Preciado P.A.-C. Primary Care Provider [phone] Encounter Details Date Type Department Care Team Description 02/27/2021 Hospital Encounter Department of Pulmonary Zach Segovia, Chronic Cough Medicine in [facility] Juan-Tae [place] [address] [place] [phone] Social History Tobacco Use Types Packs/Day Years [...] AM CDT documented as of this encounter Medications at Time of Discharge Medication Sig Dispensed Refills Start Date End Date bromelains (PINEAPPLE Take by mouth 2 0 EXTRACT ORAL) (two) times a day. calcium Chew 1 tablet. 0 11/07/2009 carbonate-vitamin D3 1,250 mg (500 mg calcium)-400 unit per chewable tablet CRANBERRY FRUIT EXTRACT cranberry oral 0 08/14/19 17 (CRANBERRY ORAL) tablet PRN: Urinary discomfort dicyclomine (BENTYL) 10 Take 1 capsule (10 180 capsule 3 mg capsule mg total) by mouth 4 (four) times a day as needed (abdominal pain or cramps). LACTOBACILLUS Take by mouth daily. 0 10/05/2012 ACIDOPHILUS (ACIDOPHILUS ORAL) magnesium 200 mg tablet Take 400 mg by mouth 0 daily. multivitamin tablet Take 1 tablet by 0 06/28/2009 mouth. vitamin Take 1 tablet by 0 A,C,U-umuuvh-numeddke mouth daily. (OCUVITE W/LUTEIN) 1,000 Unit-200 mg-60 Unit-2 mg tablet albuterol 90 Inhale 2 puffs every 0 10/30/2016 mcg/actuation inhaler 4 (four) hours as needed. doxycycline hyclate Take 1 capsule (100 20 capsule 0 021 07/02/2021 (VIBRAMYCIN) 100 mg mg total) by mouth 2 capsule (two) times a day. SUMAtriptan (IMITREX) Take 1 tablet (25 mg 9 tablet 5 07/2 10/2019 05/29/2021 25 mg tablet total) by mouth as needed for migraine. May repeat dose once in 2 hours if migraine unresolved. documented as of this encounter Plan of Treatment Pending Results Name Type Priority Associated Diagnoses Date/Ti me Pulmonary Function Tests PFT Routine Chronic Cough 11:31 AM BOX SPRING FRAME BUILDER documented as of this encounter Procedures Procedure Name Priority Date/Time Associated Diagnosis Comme nts PULMONARY FUNCTION Routine 02/27/2021 11:31 AM BOX SPRING FRAME BUILDER Chronic Cou gh TESTS documented in this encounter Visit Diagnoses Diagnosis Chronic Cough documented in this encounter Additional Health Concerns Assessment Noted Time PHQ-9 Depression Total Score: 1 06/02/2017 9:34 AM BOX SPRING FRAME BUILDER documented as of this encounter Care Teams Roll Up Helper Relationship Specialty Start Date End Date Tigre Preciado P.A.-C. PCP - General Family Medicine 10/11/19 [address] [place] [phone] documented as of this encounter
--- OUTSIDE RECORDS SUMMARY | 2022-02-13 09:14 | XMS_ITS | Encounter Summary ---
:[address] [facility] Address [address] [place] [address] Care Team Providers Name Role Phone Tigre Preciado P.A.-C. Primary Care Provider [phone] Reason for Visit Reason Onset Date Comments Testing For Upper Respiratory Virus Symptoms 01/27/2021 Encounter Details Date Type Department Care Team Description 01/27/2021 External Outreach Department of Family Sree Posadas Contact With And Medicine, Waylon Montanez D.O. (Suspected) Exposure Clinic, in [place], [address] To COVID-19 (Primary [place], [place] Dx) [address] [address] [place], [place] [phone] [address] (Work) [phone] Social History Tobacco Use Types Packs/Day Years [...] AM CDT documented as of this encounter Progress Notes Chelsea Lott R.N. - 01/27/2021 3:05 PM CDT Encounter created for symptomatic infectious disease screening with possible COVID, Influenza, RSV, and/or Group A Strep testing. documented in this encounter Plan of Treatment Not on filedocumented as of this encounter Procedures Procedure Name Priority Date/Time Associated Diagnosis Comme nts SARS CORONAVIRUS-2 Routine 01/28/2021 10:39 AM Contact With An d Results for this RNA, V CDT (Suspected) Exposure procedu re are in To COVID-19 the results section. documented in this encounter Results SARS Coronavirus-2 RNA, V Symptomatic (01/28/2021 10:39 AM CDT) [facility] Method Time Signature SARS-CoV-2 Swab, 01/28/2021 MKTO Specimen Nasopharynx 9:44 PM CDT Source SARS CoV-2 Undetected Undetected 01/28/2021 MKTO RNA, TMA 9:44 PM CDT Comment: SARS-CoV-2 RNA absent. This result does not rule out COVID-19 in the patient, as the sensitivity of the test depends o n the timing of the specimen collection and the quality of the specim en. Result should be correlated with patient's history and clinical presentat ion. ----ADDITIONAL INFORMATION---- This molecular amplification test was pe rformed using the Aptima SARS-CoV-2 assay ([employer] on the [employer] tem under emergency use authorization (EUA) by the U.S. Food and Drug Administ ration. Fact sheets for this EUA assay can be fo und at the following links: For Healthcare Providers: https://www.Mini[employer] a.gov/media/369678/download For Patients: https://www.fda.gov/media/ 175873/download Specimen Anatomical Collection Method Collection Time Receive d Time (Source) Location / / Volume Laterality Varies 01/28/2021 10:39 01/28/2021 2:47 (Nasopharynx) AM CDT PM CDT Sree Posadas D.O. LAB MICROBIOLOGY - GENERAL O RDERABLES Performing Organization Address City/State/ZIP Code Phon e Number [address] [address] [address] documented in this encounter Visit Diagnoses Diagnosis Contact With And (Suspected) Exposure To COVID-19 - Primary documented in this encounter Additional Health Concerns Infection Onset Date Last Indicated Resolved Time COVID19 Pending 01/27/2021 01/28/2021 01/28/2021 9:44 PM CDT Assessment Noted Time PHQ-9 Depression Total Score: 1 06/02/2017 9:34 AM WATER POLLUTION SPECIALIST documented as of this encounter Care Teams Tray Drier Operator Relationship Specialty Start Date End Date Tigre Preciado P.A.-C. PCP - General Family Medicine 10/11/19 [address] [place] [address] documented as of this encounter
--- OUTSIDE RECORDS SUMMARY | 2022-02-13 09:14 | XMS_ITS | Encounter Summary ---
:1945 Author Organization [facility] Address [address] [place] [address] Care Team Providers Name Role Phone Tigre Preciado P.A.-C. Primary Care Provider Encounter Details Date Type Department Care Team Description 01/28/2021 Admin Visit Department of Family Medicine, [address] [address] [facility] [phone] Social History Tobacco Use Types Packs/Day Years [...] Depression Total Score: 1 06/02/2017 9:34 AM CAR DELIVERER documented as of this encounter Care Teams Environmental Department Manager Relationship Specialty Start Date End Date Tigre Preciado P.A.-C. PCP - General Family Medicine 10/11/19 [address] [place] [address] documented as of this encounter
--- OUTSIDE RECORDS SUMMARY | 2022-02-13 09:14 | XMS_ITS | Encounter Summary ---
:1945 Author Organization [facility] Address [address] [place] [address] Care Team Providers Name Role Phone Tigre Preciado P.A.-C. Primary Care Provider [phone] Reason for Visit Reason Comments Other Swelling under tongue x 6 we eks, patient stated that there are bumps under her tongue and the texture feels off. Patient stated she has an extremely dry mouth at night where at time s it does wake her up. Patient stated the only recent thing that happened w as that she was exposed to Covid 19. Appointment Request (Routine) - Closed Specialty Diagnoses / Procedures Referred By Contact Refer red To Contact Family Medicine Referral ID Status Reason Start Date Expiration Date Visits Requ ested Visits Authorized [id number] Closed 06/26/2021 06/26/2022 1 1 Encounter Details Date Type Department Care Team Description 06/26/2021 Office Visit Department of Family Aydc, Colt M, Dry Mouth Unspecified Medicine, Jeff Valladares (Primary Dx) Clinic, in [address] [address] [place], [place] [phone] [address] (Work) [phone] Social History Tobacco Use Types Packs/Day Years [...] Sign Reading Time Taken Comments Blood Pressure 157/84 06/26/2021 1:18 PM HEALTHCARE CONSULTANT Pulse 91 06/26/2021 1:18 PM HEALTHCARE CONSULTANT Temperature 36.6 ??C (97.9 ??F) 06/26/2021 1:08 PM HEALTHCARE CONSULTANT Respiratory Rate 20 06/26/2021 1:08 PM HEALTHCARE CONSULTANT Oxygen Saturation - - Inhaled Oxygen Concentration - - Weight 58 kg (127 lb 12.1 oz) 06/26/2021 1:08 PM HEALTHCARE CONSULTANT Height - - Body Mass Index 22.36 01/27/2021 1:24 PM CDT documented in this encounter Progress Colt Reyes M.D. - 06/26/2021 1:30 PM CST Progress Note Patient is 76 years old female who presented today to the clinic for evaluation of dry mouth. Patient stated that she has been having dry mouth mostly at night. She also noticed bumps under her tongue and the texture feel different. She denies any other symptoms such as dry eyes, pain, numbness, sore throat or cough. Allergies Allergen Reactions ??? Fluconazole Other (see comments) and Anaphylaxis Lip blister, throat closing ??? Cefuroxime Axetil GI intolerance Other reaction(s): GI Upset ??? Ciprofloxacin Tendonitis Other reaction(s): Myalgia ??? Latex Rash ??? Lidocaine-Epinephrine Palpitations ??? Metronidazole Tendonitis Other reaction(s): Myalgia ??? Sulfa (Sulfonamide Antibiotics) Nausea Only Current Outpatient Medications: ??? albuterol 90 mcg/actuation inhaler, Inhale 2 puffs every 4 (four) hours as needed., Disp: , Rfl: ??? calcium carbonate-vitamin D3 1,250 [...] Disp: 9 tablet, Rfl: 5 ??? vitamin A,C,D-gmurma-gopebhfl (OCUVITE W/LUTEIN) 1,000 Unit-200 mg-60 Unit-2 mg tablet, Take 1 tablet by mouth daily., Disp: , Rfl: ??? bromelains (PINEAPPLE EXTRACT ORAL), Take by mouth 2 (two) times a day., Disp: , Rfl: ??? doxycycline hyclate (VIBRAMYCIN) 100 mg capsule, Take 1 capsule (100 mg total) by mouth 2 (two) times a day. (Patient not taking: Reported on 06/26/2021), Disp: 20 capsule, Rfl: 0 Past Medical History: Diagnosis Date ??? Anxiety ??? Asthma NOS ??? Diverticulosis with one episode of diverticulitis ??? Fasciitis Plantar ??? Migraine Headache ??? Osteoporosis 06/2017 ??? Pain Neck ??? Polyp Colon Personal History ??? Tendonitis Of the right knee which she believes was secondary to Levaquin. Social History Tobacco Use ??? Smoking status: Former Smoker Quit date: 1968 Years since quittin.2 ??? Smokeless tobacco: Never Used Substance Use Topics ??? Alcohol use: Yes Alcohol/week: 5.0 standard drinks Types: 5 Glasses of wine per week ??? Drug use: No REVIEW OF SYSTEMS Vitals: 06/26/21 1308 06/26/21 1318 BP: 149/83 157/84 BP Location: Left arm Left arm Patient Position: Sitting Sitting Cuff Size: Regular Regular Pulse: 83 91 Resp: 20 Temp: 36.6 ??C TempSrc: Temporal Weight: 58 kg Constitutional Appearance: She is well-developed. HENT Head: Normocephalic and atraumatic. Right Ear: External ear normal. Left Ear: External ear normal. Nose: Nose normal. Eyes Conjunctiva/sclera: Conjunctivae normal. Pupils: Pupils are equal, round, and reactive to light. Cardiovascular Rate and Rhythm: Normal rate and regular rhythm. Heart sounds: Normal heart sounds. Pulmonary Effort: Pulmonary effort is normal. No respiratory distress. Breath sounds: Normal breath sounds. Abdominal General: Bowel sounds are normal. There is no distension. Palpations: Abdomen is soft. There is no mass. Tenderness: There is no abdominal tenderness. There is no guarding. Musculoskeletal General: Normal range of motion. Cervical back: Normal range of motion and neck supple. Skin General: Skin is warm and dry. Neurological Mental Status: She is alert and oriented to person, place, and time. Deep Tendon Reflexes: Reflexes are normal and symmetric. Psychiatric Behavior: Behavior normal. Isadora was seen today for other. Diagnoses and all orders for this visit: Dry Mouth Unspecified Physical exam within normal limit. Patient stated that she does not have symptoms during the day butonly at night. She stated that she breathes through her mouth. We discussed that her symptoms are most likely due to mouth breathing. She does have history of allergies and she has been taking over-the- counter antihistamine p.r.n. as well as using Flonase p.r.n.. We discussed she needs to maximize thetreatment of her allergies by using Claritin and Flonase. She also needs to use mouth tape at night.If she continues to have symptoms she will let us know. THCARE CONSULTANT documented in this encounter Plan of Treatment Not on filedocumented as of this encounter Visit Diagnoses Diagnosis Dry Mouth Unspecified - Primary documented in this encounter Additional Health Concerns Assessment Noted Time PHQ-9 Depression Total Score: 1 06/02/2017 9:34 AM HEALTHCARE CONSULTANT documented as of this encounter Care Teams Front Office Administrator Relationship Specialty Start Date End Date Tigre Preciado P.A.-C. PCP - General Family Medicine 10/11/[address] [place] [phone] documented as of this encounter
--- OUTSIDE RECORDS SUMMARY | 2022-02-13 09:14 | XMS_ITS | Encounter Summary ---
:1945 Author Organization [facility] Address [address] [place] [address] Care Team Providers Name Role Phone Tigre Preciado P.A.-C. Primary Care Provider [phone] Encounter Details Date Type Department Care Team Description 02/07/2021 Clinical Communication Department of [facility] Tigre Preciado, [facility] [place] [facility], in [address] [address] [place], [place] [phone] [phone] (Work) [phone] Social History Tobacco Use Types Packs/Day Years [...] this encounter Miscellaneous Notes Telephone Encounter - Maricruz Easton L.P.N. - 02/11/2021 8:35 AM CDT SUBJECTIVE CHIEF COMPLAINT / REASON FOR CALL No chief complaint on file. Information Discussed Called and informed patient that DIANNE Alas has sent in a new prescription. Patient states thatshe needed that four days ago, not today. Patient states that she couldn't wait so she went to Urgent Care that evening and was given an antibiotic. Reviewed patient's allergies. Patient states that she is not allergic to Azithromycin and asks that it be removed. Allergy removed from list. PLAN Disposition/Recommendation: self-care is appropriate at this time, patient encouraged to call back with questions Information/Education: patient/caller able to teach back Caller agreeable to plan of care: no Patient sought alternative care The following references were used: provider Luca Addendum Note - Janie Pressley P.A.-C. - 02/11/2021 8:11 AM CDT Addended by: JANIE PRESSLEY on: 02/11/2021 08:11 AM Modules accepted: Orders Telephone Encounter - Krysta Sanches - 02/07/2021 4:24 PM CDT Reason for Communication: Patient needs a different medication Current Can Nursing/Provider leave a detailed message?: n/a Did the patient refuse triage through Nurse line? (for symptom based concerns): n/a Action Needed: Patient is waiting up at the pharmacy in hopes that a rx can be sent for the z pac oramoxycillin. The medication that was sent makes her joints hurt as stated in previous message. Name of Medication (if relevant): doxycycline hyclate (VIBRAMYCIN) 100 mg capsule Please send all scheduling replies to scheduling pool. Telephone Encounter - Minerva Lock L.P.N. - 02/07/2021 2:34 PM CDT SUBJECTIVE CHIEF COMPLAINT / REASON FOR CALL No chief complaint on file. Information Discussed Called and spoke to patient she usually gets joint pain on Doxycycline. Was wondering if amoxicillinor the Z pack would work? PLAN Disposition/Recommendation: notified provider and awaiting recommendations Information/Education: patient/caller able to teach back Caller agreeable to plan of care: yes The following references were used: provider Janie Telephone Encounter - Janie Pressley P.A.-C. - 02/07/2021 2:24 PM CDT Please let patient know I will send prescription for doxycyline. If symptoms do not improve following antibiotic she should return to clinic for further evaluation. Recommend she hold her vitamin supplements while taking antibiotic. Telephone Encounter - Phuong Alexandra - 02/07/2021 10:03 AM CDT Does patient need to be seen or can she get a prescription? See also nurse triage note. Thank you Telephone Encounter - Loyda Rosales - 02/07/2021 9:40 AM CDT Reason for Communication: Patient called. She spoke to Hanna on [facility] and was transferred to tx to take a message. Isadora saw Janie Pressley on 01/27/21. She is still having the tightness in her chest, cough and phlegm, and having trouble sleeping. (she had a neg covid test on 01/28). She is wondering if she should be seen again or get an Rx? If Rx, she would like it sent to [facility] in [place]. They close at 6:00 today and she lives in [place] so would like a call back as soon as possible. Current Can Nursing/Provider leave a detailed message?: yes Did the patient refuse triage through Nurse line? (for symptom based concerns): She did speak to NL Action Needed: wants call back Name of Medication (if relevant): Please send all scheduling replies to scheduling pool. documented in this encounter Plan of Treatment Not on filedocumented as of this encounter Visit Diagnoses Not on filedocumented in this encounter Additional Health Concerns Assessment Noted Time PHQ-9 Depression Total Score: 1 06/02/2017 9:34 AM IVF EMBRYOLOGIST documented as of this encounter Care Teams Lump Machine Operator Relationship Specialty Start Date End Date Tigre Preciado P.A.-C. PCP - General Family Medicine 10/11/[address] [place] [phone] documented as of this encounter
--- OUTSIDE RECORDS SUMMARY | 2022-02-13 09:14 | XMS_ITS | Encounter Summary ---
:1945 Author Organization [facility] Address [address] [place] [address] Care Team Providers Name Role Phone Tigre Preciado P.A.-C. Primary Care Provider [phone] Reason for Visit Reason Comments URI Encounter Details Date Type Department Care Team Description 02/07/2021 [facility], [facility], [facility] [address] [place] [address] [place] [phone] Social History Tobacco Use Types Packs/Day Years [...] this encounter Miscellaneous Notes Telephone Encounter - Hanna Calvo R.N. - 02/07/2021 9:21 AM CDT Chief Complaint / Reason for Call Patient is a 75 y.o. female calling regarding URI. Assessment Concern: Was seen last week for symptoms, has continuing issues with bronchitis. She has been doing recommendations from last visit and states that she doesn't have pulmonology consult until 02/27. States she has a little more chest tightness than when she was previously seen, but continues to have a lot of post nasal drainage and coughing up phlegm that is sometimes yellowish in color and sometimes clear. She has felt better for a few days and Wednesday night really hit her again. Present for: Ongoing Home cares tried: Inhaler, Mucinex, Zyrtec, and regular saline nasal spray Calling to request: Appointment/Advice The recommended disposition is See a health care provider within 24 hours. Patient was warm transferred to [place] at the clinic for further assistance. Reason for Disposition ??? [1] Known COPD or other severe lung disease (i.e., bronchiectasis, cystic fibrosis, lung surgery) AND [2] worsening symptoms (i.e., increased sputum purulence or amount, increased breathing difficulty Protocols used: COUGH - ACUTE [id number] Care Advice Patient/Caregiver understands and will follow care advice?: Yes, able to teach back DRINK PLENTY OF LIQUIDS: * Drink plenty of liquids. * Staying well-hydrated will help loosen phlegm. * The liquids will also help soothe a dry or irritated throat. HUMIDIFIER: * If the air is dry, use a humidifier in the bedroom. * Dry air makes coughs worse. CALL BACK IF: * You become worse. COVID-19 Nurse Line Screening ASSESSMENT Region Select appropriate region: : [place] Age Pathway Select approprite pathway: : Adult Have you had close contact* with a person who has a LABORATORY CONFIRMED case of COVID-19 in the past 14 days?: No (Continue Screening) In the last 48 hours, have you had a fever* OR symptoms that are unrelated to a preexisting illness?: New cough Have you received a COVID-19 vaccine in the last 72 hours? : No vaccine received (Continue Screening) Do you have any of the following urgent symptoms?: No urgent symptoms noted (Continue Screening) Have you tested positive for COVID-19 in the last 45 days?: No (Continue Screening) Are ALL the following criteria met: age between 18 to 75 yrs, main symptom is a sore throat with duration of 24 hrs to 7 days, onset of sore throat not associated with new upper respiratory symptoms*? : No, COVID testing is recommended (End Screening) Testing Recommendation Endpoint Is testing recommended? : Recommended to test PLAN Endpoint recommendation: Testing indicated, patient declining testing. Symptomatic Carepoints: Rest. Hydrate. Use a humidifier. Education: Patient/caregiver able to teach back Patient agreeable to plan of care: Yes The following references were used: [facility] novel coronavirus (COVID- 19) resources documented in this encounter Plan of Treatment Not on filedocumented as of this encounter Visit Diagnoses Not on filedocumented in this encounter Additional Health Concerns Assessment Noted Time PHQ-9 Depression Total Score: 1 06/02/2017 9:34 AM MANAGER COMPLIANCE documented as of this encounter Care Teams Records Analyst Relationship Specialty Start Date End Date Tigre Preciado P.A.-C. PCP - General Family Medicine 10/11/[address] [place] [phone] documented as of this encounter
--- OUTSIDE RECORDS SUMMARY | 2022-02-13 09:14 | XMS_ITS | Encounter Summary ---
:1945 Author Organization [facility] Address [address] [place] [address] Care Team Providers Name Role Phone Tigre Preciado P.A.-C. Primary Care Provider [phone] Reason for Referral Outpatient (Routine) - Closed Specialty Diagnoses / Procedures Referred By Contact Refer red To Contact Diagnoses Screening Mammogram Breast Cancer Tigre Preciado P.A.-C. [facility] Procedures BI Breast Screening Bilateral with Tomosynthesis [address] [place] [address] Referral ID Status Reason Start Date Expiration Date Visits Requ ested Visits Authorized [id number] Closed 12/03/2020 12/03/2021 1 1 Encounter Details Date Type Department Care Team Description 12/03/2020 [facility] Tigre Preciado, Screening Mammogram [facility] Breast Cancer [address] [place] [phone] Social History Tobacco Use Types Packs/Day Years [...] Not on filedocumented as of this encounter Results BI Breast Screening Bilateral with Tomosynthesis (01/21/2021 2:18 PM CDT) Anatomical Region Laterality Modality Breast, Breast Imaging [facility], Breast Imaging [facility], [address] Bilateral Mammography Imaging [facility] Specimen (Source) Anatomical Collection Method Collection Time Re ceived Time Location / / Volume Laterality 01/21/2021 3:16 PM CDT Impressions 01/21/2021 3:18 PM CDT Negative. RECOMMENDATION: ??Annual Screening Mammo gram ASSESSMENT: ??BI-RADS: 1: Negative. Narrative 01/21/2021 3:18 PM CDT EXAM: ??BI BREAST SCREENING BILATERAL WITH TOMOSYNTHESIS Current study was evaluated with a Compu ter Aided Detection (CAD) system. INDICATION: ??Screening mammogram. COMPARISON: ??Prior exam(s) were availab le and reviewed for comparison. DENSITY: ??c. The breast(s) are heteroge neously dense, which may obscure small masses. FINDINGS: ??No mammographic findings of malignancy. Procedure Note Sanjeev Rodriguez M.D. - 01/21/2021 EXAM: BI BREAST SCREENING BILATERAL WITH TOMOSYNTHESIS Current study was evaluated with a Compu ter Aided Detection (CAD) system. INDICATION: Screening mammogram. COMPARISON: Prior exam(s) were available and reviewed for comparison. DENSITY: c. The breast(s) are heterogene ously dense, which may obscure small masses. FINDINGS: No mammographic findings of ma lignancy. IMPRESSION: Negative. RECOMMENDATION: Annual Screening Mammogr am ASSESSMENT: BI-RADS: 1: Negative. Tigre Preciado P.A.-C. IMG BI PROCEDURES documented in this encounter Visit Diagnoses Diagnosis Screening Mammogram Breast Cancer Screening Mammogram Breast Cancer documented in this encounter Additional Health Concerns Assessment Noted Time PHQ-9 Depression Total Score: 1 06/02/2017 9:34 AM GUEST SERVICES AMBASSADOR documented as of this encounter Care Teams News Agent Relationship Specialty Start Date End Date Tigre Preciado P.A.-C. PCP - General Family Medicine 10/11/[address] [place] [phone] documented as of this encounter
--- OUTSIDE RECORDS SUMMARY | 2022-02-13 09:14 | XMS_ITS | Encounter Summary ---
:1945 Author Organization [facility] Address [address] [place] [address] Care Team Providers Name Role Phone Tigre Preciado P.A.-C. Primary Care Provider [phone] Encounter Details Date Type Department Care Team Description 01/28/2021 Hospital Encounter Department of Laboratory Wood Posadas, Medicine, [facility], in [place], [address] [place], [place] [address] [facility] [phone] [place] [address] [phone] Social History Tobacco Use Types Packs/Day Years [...] mouth. vitamin Take 1 tablet by 0 A,C,T-nuhriq-crtxruxz mouth daily. (OCUVITE W/LUTEIN) 1,000 Unit-200 mg-60 Unit-2 mg tablet albuterol 90 Inhale 2 puffs every 0 10/30/2016 mcg/actuation inhaler 4 (four) hours as needed. SUMAtriptan (IMITREX) Take 1 tablet (25 mg 9 tablet 5 10/1805/29/2021 25 mg tablet total) by mouth as [...] Depression Total Score: 1 06/02/2017 9:34 AM FIELD SERVICE ENGINEER documented as of this encounter Care Teams Training Systems Officer Relationship Specialty Start Date End Date Tigre Preciado P.A.-C. PCP - General Family Medicine 10/11/[address] [place] [phone] documented as of this encounter
--- OUTSIDE RECORDS SUMMARY | 2022-02-13 09:14 | XMS_ITS | Encounter Summary ---
:1945 Author Organization [facility] Address [address] [place] [address] Care Team Providers Name Role Phone Tigre Preciado P.A.-C. Primary Care Provider [phone] Reason for Visit Reason Onset Date Comments Outpatient COVID-19 Testing 02/23/2021 Encounter Details Date Type Department Care Team Description 02/23/2021 External Outreach Department of Family Sree Posadas Contact With And Medicine, John Montanez D.O. (Suspected) Exposure Building, in [address] To COVID-19 (Primary [place], [place] Dx) [address] [facility] [address] [place], [place] [phone] [address] (Work) [phone] Social History Tobacco Use Types Packs/Day Years [...] documented as of this encounter Progress Notes Solange Brown R.N. - 02/23/2021 10:48 AM CST Encounter created for infectious disease screening. CULTURE PROGRAM DIRECTOR documented in this encounter Plan of Treatment Not on filedocumented as of this encounter Procedures Procedure Name Priority Date/Time Associated Diagnosis Comme nts SARS CORONAVIRUS-2 Routine 02/24/2021 11:04 AM Contact With An d Results for this RNA, V AQUACULTURE PROGRAM DIRECTOR (Suspected) Exposure procedu re are in To COVID-19 the results section. documented in this encounter Results SARS Coronavirus-2 RNA, V Asymptomatic (02/24/2021 11:04 AM AQUACULTURE PROGRAM DIRECTOR) [facility] Method Time Signature SARS-CoV-2 Swab, 02/25/2021 MKTO Specimen Nasopharynx 3:11 PM AQUACULTURE PROGRAM DIRECTOR Source SARS CoV-2 Undetected Undetected 02/25/2021 MKTO RNA, TMA 3:11 PM AQUACULTURE PROGRAM DIRECTOR Comment: SARS-CoV-2 RNA absent. This result does not rule out COVID-19 in the patient, as the sensitivity of the test depends o n the timing of the specimen collection and the quality of the specim en. Result should be correlated with patient's history and clinical presentat ion. ----ADDITIONAL INFORMATION---- This molecular amplification test was pe rformed using the Aptima SARS-CoV-2 assay ([employer] on the [place] Sys tem under emergency use authorization (EUA) by the U.S. Food and Drug Administ ration. Fact sheets for this EUA assay can be fo und at the following links: For Healthcare Providers: https://www.fd a.gov/media/242583/download For Patients: https://www.fda.gov/media/ 625940/download Specimen Anatomical Collection Method Collection Time Receive d Time (Source) Location / / Volume Laterality Varies 02/24/2021 11:04 02/25/2021 7:49 (Nasopharynx) AM AQUACULTURE PROGRAM DIRECTOR AM AQUACULTURE PROGRAM DIRECTOR Sree Posadas D.O. LAB MICROBIOLOGY - GENERAL O RDERABLES Performing Organization Address [facility] Phon e Number [address] [place] [address] [address] documented in this encounter Visit Diagnoses Diagnosis Contact With And (Suspected) Exposure To COVID-19 - Primary documented in this encounter Additional Health Concerns Infection Onset Date Last Indicated Resolved Time COVID19 Pending 02/23/2021 02/24/2021 02/25/2021 3:12 PM AQUACULTURE PROGRAM DIRECTOR Assessment Noted Time PHQ-9 Depression Total Score: 1 06/02/2017 9:34 AM AQUACULTURE PROGRAM DIRECTOR documented as of this encounter Care Teams Substance Abuse Rn Relationship Specialty Start Date End Date Tigre Preciado P.A.-C. PCP - General Family Medicine 10/11/19 [address] [place] [address] documented as of this encounter
--- OUTSIDE RECORDS SUMMARY | 2022-02-13 09:14 | XMS_ITS | Encounter Summary ---
:1945 Author Organization [facility] Address [address] [place] [address] Care Team Providers Name Role Phone Tigre Preciado P.A.-C. Primary Care Provider [phone] Reason for Referral Specialty Diagnoses / Procedures Referred By Contact Refer red To Contact Tigre Preciado P. A.-C. [facility] Region [address] [place] [address] Referral ID Status Reason Start Date Expiration Date Visits Requ ested Visits Authorized Encounter Details Date Type Department Care Team Description 09/02/2021 Orders Only [facility] PCP [facility] Tigre Preciado P.A.-C. [address] [place] [phone] (Wo rk) Social History Tobacco Use Types [...] as of this encounter Plan of Treatment Scheduled Referrals Name Type Priority Associated Order Schedule Diagnoses Covid immunization Outpatient Referral Routine Ex pected: office visit Booster 022 (Approximate), Expires: 09/02/2022 documented as of this encounter Visit Diagnoses Not on filedocumented in this encounter Additional Health Concerns Assessment Noted Time PHQ-9 Depression Total Score: 1 06/02/2017 9:34 AM TRAY LINE SUPERVISOR documented as of this encounter Care Teams Bladder Tier Relationship Specialty Start Date End Date Tigre Preciado P.A.-C. PCP - General Family Medicine 10/11/19 [address] [place] [address] documented as of this encounter
--- OUTSIDE RECORDS SUMMARY | 2022-02-13 09:14 | XMS_ITS | Encounter Summary ---
:1945 Author Organization [facility] Address [address] [place] [address] Care Team Providers Name Role Phone Tigre Preciado P.A.-C. Primary Care Provider [phone] Reason for Referral Outpatient (Routine) - Closed Specialty Diagnoses / Procedures Referred By Contact Refer red To Contact Diagnoses Screening Mammogram Breast Cancer Tigre Preciado P.A.-C. [facility] Region Procedures BI Breast Screening Bilateral with Tomosynthesis [address] [place] [address] Referral ID Status Reason Start Date Expiration Date Visits Requ ested Visits Authorized [id number] Closed 12/03/2020 12/03/2021 1 1 Reason for Visit Outpatient (Routine) - Closed Specialty Diagnoses / Procedures Referred By Contact Refer red To Contact Diagnoses Screening Mammogram Breast Cancer Tigre Preciado P.A.-C. [facility] Procedures BI Breast Screening Bilateral with Tomosynthesis [address] [place] [address] Referral ID Status Reason Start Date Expiration Date Visits Requ ested Visits Authorized [id number] Closed 12/03/2020 12/03/2021 1 1 Encounter Details Date Type Department Care Team Description 01/21/2021 Hospital Encounter Department of Loco Preciado Mammogram Radiology in [place] Breast Cancer [place], [place] [address] [place] [phone] [phone] Social History Tobacco Use Types Packs/Day Years [...] mouth. vitamin Take 1 tablet by 0 A,C,J-rsicml-qhqylaii mouth daily. (OCUVITE W/LUTEIN) 1,000 Unit-200 mg-60 [...] encounter Procedures Procedure Name Priority Date/Time Associated Comments Diagnosis BI BREAST SCREENING RAD - Routine 01/21/2021 2:18 Screening Resu lts for BILATERAL WITH (most inpatients PM CDT Mammogram Breast this procedure TOMOSYNTHESIS and all Cancer are in the outpatients) results section. documented in this encounter Results BI Breast Screening Bilateral with Tomosynthesis (01/21/2021 2:18 PM CDT) Anatomical Region Laterality Modality Breast, Breast Imaging RST LOS, Breast Imaging ARZ LOS, Tami st Bilateral Mammography Imaging FLA [facility] Specimen (Source) Anatomical Collection Method Collection Time [...] Visit Diagnoses Diagnosis Screening Mammogram Breast Cancer documented in this encounter Additional Health Concerns Assessment Noted Time PHQ-9 Depression Total Score: 1 06/02/2017 9:34 AM STAFF ANESTHETIST documented as of this encounter Care Teams Diplomatic Courier Relationship Specialty Start Date End Date Tigre Preciado P.A.-C. PCP - General Family Medicine 10/11/19 [address] [place] [address] documented as of this encounter
--- OUTSIDE RECORDS SUMMARY | 2022-02-13 09:15 | XMS_ITS | Encounter Summary ---
:1945 Author Organization [facility] Address [address] [place] [address] Care Team Providers Name Role Phone Tigre Preciado P.A.-C. Primary Care Provider [phone] Reason for Visit Reason Comments Headache Nasal Congestion Facial Pain Encounter Details Date Type Department Care Team Description 11/06/2020 Nurse Triage Department of [facility] Tigre Preciado He adache; Nasal Medicine, Jeff Edmondson Congestion; Facial Clinic, in [address] [facility] [address] [place], [place] [phone] (Work) [phone] Social History Tobacco Use Types Packs/Day Years [...] this encounter Miscellaneous Notes Telephone Encounter - Ashli Rosales RKarime. - 11/06/2020 9:15 AM CDT CARE POINTS REVIEWED - Drink plenty of fluids. - Apply warm wet compresses to sinus area. - Get adequate rest. - Use cool-mist humidifier in room or home. - Avoid smoke and do not smoke. - Continue the medications normally taken for pain/discomfort, as directed, including wbrn-szi-uzppjyx cold remedies. - Consider use of Flonase or other steroid nasal sprayChief Complaint / Reason for Call Patient is a 75 y.o. female calling regarding No chief complaint on file.. Assessment Concern: Facial pain, nasal congestion, headache Present for: 3 days Home cares tried: None Calling to request: Treatment The recommended disposition is No disposition on file.. 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 PCP - General Family Medicine 10/11/[address] [place] [phone] documented as of this encounter
--- OUTSIDE RECORDS SUMMARY | 2022-02-13 09:15 | XMS_ITS | Encounter Summary ---
:1945 Author Organization [facility] Address [address] [place] [address] Care Team Providers Name Role Phone Tigre Preciado P.A.-C. Primary Care Provider [phone] Encounter Details Date Type Department Care Team Description 03/18/[address] [facility] Milo Amaro, Surgery in [place] [facility] [address] [place] [phone] Social History Tobacco Use Types Packs/Day Years [...] this encounter Miscellaneous Notes Telephone Encounter - Claudia Mensah L.P.N. - 03/20/2020 4:01 PM CONTRACT TECHNICAL WRITER Patient is aware HM and reminders updated RACT TECHNICAL WRITER Telephone Encounter - Duncan Amaro M.D. - 03/18/2020 10:00 PM CST This patient recently underwent colonoscopy. Preoperative diagnosis: History of colon polyps 5 years ago. 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 One tubular and one serrated polyp were 10 mm in size. The others were smaller. Prep Given: Two day prep. Watson Bowel Prep Score: 9 (Excellent bowel preparation on the second day) Recommendations for timing of next scheduled colonoscopy: 3 years Recommendations for bowel preparation for next colonoscopy: Two day prep Electronically signed by: Duncan Amaro M.D. 03/18/20 10:02 PM CONTRACT TECHNICAL WRITER RACT TECHNICAL WRITER documented in this encounter Plan of Treatment Not on filedocumented as of this encounter Visit Diagnoses Not on filedocumented in this encounter Additional Health Concerns Assessment Noted Time PHQ-9 Depression Total Score: 1 06/02/2017 9:34 AM CONTRACT TECHNICAL WRITER documented as of this encounter Care Teams Manager In Training Relationship Specialty Start Date End Date Tigre Preciado P.A.-C. PCP - General Family Medicine 10/11/19 [address] [place] [address] documented as of this encounter
--- OUTSIDE RECORDS SUMMARY | 2022-02-13 09:15 | XMS_ITS | Encounter Summary ---
:1945 Author Organization [facility] Address [address] [place] [address] Care Team Providers Name Role Phone Tigre Preciado P.A.-C. Primary Care Provider [phone] Encounter Details Date Type Department Care Team Description 10/18/2020 Hospital Encounter Department of Ilana, Pain Lef t Lower Quadrant; Radiology in [place] Bloating Abdominal; [place], [place] [address] Nausea [address] [place] [phone] Social History Tobacco Use Types Packs/Day Years [...] EXTRACT ORAL) (two) times a day. calcium carbonate-vitamin Chew 1 tablet. 0 2009 D3 1,250 mg (500 mg calcium)-400 unit per chewable tablet CRANBERRY FRUIT EXTRACT cranberry oral 0 08/14/19 17 (CRANBERRY ORAL) tablet PRN: Urinary discomfort LACTOBACILLUS ACIDOPHILUS Take by mouth daily. 0 10/05/2012 (ACIDOPHILUS ORAL) magnesium 200 mg tablet Take 400 mg by mouth 0 daily. multivitamin tablet Take 1 tablet by 0 06/28/2009 mouth. vitamin Take 1 tablet by 0 A,C,Z-gzyfox-hdvvlwhr mouth daily. (OCUVITE W/LUTEIN) 1,000 Unit-200 mg-60 Unit-2 mg tablet albuterol 90 Inhale 2 puffs every 0 10/30/2016 mcg/actuation inhaler 4 (four) hours as needed. ondansetron ODT Take 1 tablet (4 mg 20 tablet 0 10/18/2020 12/30/2020 (ZOFRAN-ODT) 4 mg total) by mouth disintegrating tablet every 8 (eight) hours as needed for nausea or vomiting. SUMAtriptan (IMITREX) 25 Take 1 tablet (25 mg 9 tablet 5 0 11/13/2019 05/29/2021 mg tablet total) by mouth as needed for migraine. May repeat dose once in 2 hours if migraine unresolved. documented as of this encounter Plan of Treatment Not on filedocumented as of this encounter Procedures Procedure Name Priority Date/Time Associated Comments Diagnosis DX ABDOMEN 1 VIEW RAD - Routine 10/18/2020 11:06 Pain Left Lower Re sults for this (most inpatients AM CDT Quadrant procedure are in and all Bloating the results outpatients) Abdominal section. Nausea documented in this encounter Results DX Abdomen 1 View (10/18/2020 11:06 AM CDT) Anatomical Region Laterality Modality Abdomen, Abdominal RST LOS, Abdominal ARZ LOS, N/A Digital Radiography Abdominal FLA LOS Specimen (Source) Anatomical Collection Method Collection Time Re ceived Time Location / / Volume Laterality 10/18/2020 11:38 AM CDT Impressions 10/18/2020 11:42 AM CDT Nonobstructed bowel gas pattern. Large stool burden. Cholecystectomy. No consolidations of th e lung bases. Lumbar curve. 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 Sclerosis at the pubic symphysis. Narrative 10/18/2020 11:42 AM CDT EXAM: DX ABDOMEN 1 VIEW Procedure Note Misael Ortega M.D. - 10/18/2020For matting of this note might be different from the original. EXAM: DX ABDOMEN 1 VIEW IMPRESSION: Nonobstructed bowel gas pattern. Large s tool burden. Cholecystectomy. No consolidations of th e lung bases. Lumbar curve. 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 Sclerosis at the pubic symphysis. Tigre Preciado P.A.-C. IMG DIAGNOSTIC IMAGING PROCE DURES documented in this encounter Visit Diagnoses Diagnosis Pain Left Lower Quadrant Bloating Abdominal Nausea documented in this encounter Additional Health Concerns Assessment Noted Time PHQ-9 Depression Total Score: 1 06/02/2017 9:34 AM NEUROSCIENTIST documented as of this encounter Care Teams Computer System Specialist Relationship Specialty Start Date End Date Tigre Preciado P.A.-C. PCP - General Family Medicine 10/11/19 [address] [place] [address] documented as of this encounter
--- OUTSIDE RECORDS SUMMARY | 2022-02-13 09:15 | XMS_ITS | Encounter Summary ---
:1945 Author Organization [facility] Address [address] [place] [address] Care Team Providers Name Role Phone Tigre Preciado P.A.-C. Primary Care Provider [phone] Reason for Referral Outpatient (Routine) - Closed Specialty Diagnoses / Procedures Referred By Contact Refer red To Contact Family Medicine Tigre Preciado P. A.-C. [facility] Region [address] [place] [phone] Referral ID Status Reason Start Date Expiration Date Visits Requ ested Visits Authorized [id number] Closed 10/18/2020 10/18/2021 1 1 Reason for Visit Reason Comments Follow-up nausea/gas, vomiting, follow up from same day clinic, abdominal pain. Appointment Request (Routine) - Closed Specialty Diagnoses / Procedures Referred By Contact Refer red To Contact Family Medicine Referral ID Status Reason Start Date Expiration Date Visits Requ ested Visits Authorized [id number] Closed 10/18/2020 10/18/2021 1 1 Encounter Details Date Type Department Care Team Description 10/18/2020 Office Visit Department of Tigre Simon Pa in Left Lower Quadrant (Primary Dx); Medicine, Jeff Edmondson Bloating Abdominal; Clinic, in [address] [facility] [address] [place], [place] [phone] (Work) [phone] Social History Tobacco Use Types Packs/Day Years [...] Sign Reading Time Taken Comments Blood Pressure 129/60 10/18/2020 10:04 AM CDT Pulse 72 10/18/2020 10:04 AM CDT Temperature 36.3 ??C (97.3 ??F) 10/18/2020 10:04 AM CDT Respiratory Rate 16 10/18/2020 10:04 AM CDT Oxygen Saturation - - Inhaled Oxygen Concentration - - Weight 57.4 kg (126 lb 8.7 oz) 10/18/2020 10:04 AM CDT Height 161 cm (5' 3.39) 10/18/2020 10:04 AM CDT Body Mass Index 22.14 10/18/2020 10:04 AM CDT documented in this encounter Progress Notes Tigre Preciado P.A.-C. - 10/18/2020 10:00 AM CDT CHIEF COMPLAINT / REASON FOR VISIT Isadora Back is a 75 y.o. female who presents for evaluation of Follow-up (nausea/gas, vomiting, follow up from same day clinic, abdominal pain. ). HISTORY OF PRESENT ILLNESS Isadora for follow-up of her recent urgent care visit for abdominal bloating and possible diverticulitis. Isadora has a longstanding history of abdominal bloating. She has tried some other remedies for thisin the past she has use simethicone she also uses magnesium which keeps her bowels soft. The bloating is been ongoing issue but over the last couple weeks his seems to have gotten worse. She has had some nausea as well she is having normal bowel movements. She had a colonoscopy last year that showed afew polyps but no significant abnormalities otherwise. She was seen in urgent care and treated for diverticulitis with Augmentin but took 1 dose and became significantly nauseated. She has not taken another dose since then and says that she thinks she is feeling a little better she does not have any acute pain or fever. OBJECTIVE Vitals: 10/18/20 1004 BP: 129/60 BP Location: Left arm Patient Position: Sitting Cuff Size: Regular Pulse: 72 Resp: 16 Temp: 36.3 ??C TempSrc: Temporal Weight: 57.4 kg Height: 161 cm Body mass index is 22.14 kg/m??. PHYSICAL EXAM In general she appears in no acute distress Heart: Regular rate rhythm no murmurs Lungs: Clear to auscultation Abdomen: Bowel sounds are present abdomen was soft with some mild generalized discomfort but no acute discomfort to palpation. IMPRESSION / REPORT / PLAN #1 Pain Left Lower Quadrant I would like to look into this further. There is a couple possibilities. I am going to do a CBC metabolic panel and C reactive protein today I think we should do a CT scan of her abdomen. I am going todo an abdominal x-ray today as well to rule out a small-bowel obstruction. She will let us know if any of her symptoms worsen. I will plan to see her back after this CT scan. #2 Bloating Abdominal I will see her back after this workup. #3 Nausea I am going to give her some Zofran to help with the nausea. If she has any worsening of her symptomsin the meantime she should be seen sooner. Total time spent 30 minutes Tigre Preciado P.A.-C. documented in this encounter Plan of Treatment Scheduled Referrals Name Type Priority Associated Diagnoses Order S [facility] Medicine Outpatient Referral Routine Expec erickson: office visit 10/18/2020 (clinic) (Approximate), Expires: 10/19/2023 documented as of this encounter Procedures Procedure Name Priority Date/Time Associated Comments Diagnosis CELIAC DISEASE SEROLOGY Routine 10/18/2020 11:09 Pain Left Low er Results for this CASCADE, S AM CDT Quadrant procedure are in Bloating Abdominal the resul ts section. TISSUE TRANSGLUTAMINASE Routine 10/18/2020 11:09 Results for this (TTG) AB, IGA, S AM CDT procedure a re in the results section. CBC WITH DIFFERENTIAL, B Routine 10/18/2020 11:09 Pain Left Lo wer Results for this AM CDT Quadrant procedure are in Bloating Abdominal the resul ts section. COMPREHENSIVE METABOLIC Routine 10/18/2020 11:09 Pain Left Low er Results for this PANEL, S/P AM CDT Quadrant procedure are in Bloating Abdominal the resul ts section. documented in this encounter Results tTG (Tissue Transglutaminase), Antibody, IgA (10/18/2020 11:09 AM CDT) [facility] Method Time Signature Tissue <1.2 <4.0 10/22/2020 [facility] Transglutaminase Ab, (Negative 3:45 PM CDT IgA, S ) U/mL Specimen Anatomical Collection Method Collection Time Receive d Time (Source) Location / / Volume Laterality Blood 10/18/2020 11:09 10/22/2020 AM CDT 10:51 AM CDT Tigre Preciado P.A.-C. LAB BLOOD ADD-ON Performing Organization Address City/State/ZIP Code Phon e Number [facility] [address] [place] [phone] [facility] [place] [address] Laboratory Medicine and Pathology [address] [place] [address] Dr. CADET Celiac Disease Serology [place] (10/18/2020 11:09 AM CDT) Component Value Ref Test Analysis Performed Pathologis t Range Method Time At Signature Immunoglobulin A 162 61 - 356 10/22/2020 [facility] (IgA), S mg/dL 7:53 AM CDT Celiac Disease Negative serology. Celiac di sease unlikely. However, approximately 10% of 10/22/2020 [facility] Interpretation patients with celiac disease are seronegative. Also, patients who are already 10:13 PM adhering to a gluten-free diet may be seronegative. If everett iac disease is CDT highly clinically suspected, consider HLA-DQ typing. Specimen Anatomical Collection Method Collection Time Receive d Time (Source) Location / / Volume Laterality Blood (Blood, 10/18/2020 11:09 10/22/2020 6:10 Venous) AM CDT AM CDT Narrative [facility] - 10/22/2020 10:13 PM CDT Specimen Information: Specimen ID: [id number] Specimen Type: Blood Specimen Collection Start Date: 11:09 AM Specimen Received Date: 10/22/2020 ??6:10 AM Specimen ID: [id number] Specimen Type: Blood Specimen Collection Start Date: 11:09 AM Specimen Received Date: 10/19/2020 ??7:07 AM Tigre Preciado P.A.-C. LAB BLOOD ADD-ON Performing Organization Address City/[facility]/ZIP Code Phon e Number [facility] [address] [place] [phone] [facility] [place] [address] Laboratory Medicine and Pathology [address] [place] [address] Dr. CADET CBC with Differential, Blood (10/18/2020 11:09 AM CDT) P athologist Signature Hemoglobin 13.3 11.6 - 10/18/2020 [facility] 15.0 g/dL 11:17 AM CDT Hematocrit 38.7 35.5 - 10/18/2020 [facility] 44.9 % 11:17 AM CDT Erythrocytes 4.25 3.92 - 10/18/2020 [facility] 5.13 11:17 AM CDT x10(12)/L MCV 91.1 78.2 - 10/18/2020 [facility] 97.9 fL 11:17 AM CDT RBC Distrib Width 12.9 12.2 - 10/18/2020 [facility] 16.1 % 11:17 AM CDT Platelet Count 339 157 - 371 10/18/2020 [facility] x10(9)/L 11:17 AM CDT Leukocytes 8.6 3.4 - 9.6 10/18/2020 [facility] x10(9)/L 11:17 AM CDT Neutrophils 5.76 1.56 - 10/18/2020 [facility] 6.45 11:17 AM CDT x10(9)/L Lymphocytes 1.75 0.95 - 10/18/2020 [facility] 3.07 11:17 AM CDT x10(9)/L Monocytes 0.81 0.26 - 10/18/2020 [facility] 0.81 11:17 AM CDT x10(9)/L Eosinophils 0.25 0.03 - 10/18/2020 [facility] 0.48 11:17 AM CDT x10(9)/L Basophils 0.03 0.01 - 10/18/2020 [facility] 0.08 11:17 AM CDT x10(9)/L Specimen Anatomical Collection Method Collection Time Receive d Time (Source) Location / / Volume Laterality Blood (Blood, 10/18/2020 11:09 10/18/2020 Venous) AM CDT 11:09 AM CDT Tigre Preciado P.A.-C. LAB BLOOD ADD-ON Performing Organization Address City/State/ZIP Code Phon e Number [facility]- [address] [place] [address] [facility] [place] [address] System in [place] [address] (ABNORMAL) Comprehensive Metabolic Panel (10/18/2020 11:09 AM CDT) P athologist Signature Potassium, P 4.4 3.6 - 5.2 10/18/2020 [facility] mmol/L 2:13 PM CDT Sodium, P 134 (L) 135 - 145 10/18/2020 [facility] mmol/L 2:13 PM CDT Chloride, P 98 98 - 107 10/18/2020 [facility] mmol/L 2:13 PM CDT Bicarbonate, P 27 22 - 29 10/18/2020 [facility] mmol/L 2:13 PM CDT Anion Gap, P 9 7 - 15 10/18/2020 [facility] 2:13 PM CDT BUN (Blood Urea 11 6 - 21 10/18/2020 [facility] Nitrogen), P mg/dL 2:13 PM CDT Creatinine 0.86 0.59 - 10/18/2020 [facility] 1.04 mg/dL 2:13 PM CDT eGFR-Black/Afri 78 >=60 10/18/2020 [facility] can Guine[place] mL/min/BSA 2:13 PM CDT Comment: ----ADDITIONAL INFORMATION---- Estimated GFR calculated using the 2009 CKD_EPI creatinine equation. eGFR Non-Black/ 67 >=60 mL/min/BSA 2:13 PM CDT [facility] Comment: ----ADDITIONAL INFORMATION---- Estimated GFR calculated using the 2009 CKD_EPI creatinine equation. Calcium, Total, P 9.5 8.8 - 10.2 mg/dL 10/18/2020 2:13 PM CDT [facility] Glucose, P 99 70 - 140 mg/dL 10/18/2020 2:13 PM CDT O DAISY Protein, Total, P 7.3 6.3 - 7.9 g/dL 10/18/2020 2:13 P M CDT [facility] Albumin, P 4.3 3.5 - 5.0 g/dL 10/18/2020 2:13 PM CDT O DAISY Aspartate Aminotransferase 27 8 - 43 U/L 10/18/2020 2 :13 PM CDT [facility] (AST), P Alkaline Phosphatase, P 98 35 - 104 U/L 10/18/2020 2: 13 PM CDT [facility] Alanine Aminotransferase (ALT), 14 7 - 45 U/L 021 2:13 PM CDT [facility] P Bilirubin, Total, P 0.3 <=1.2 mg/dL 10/18/2020 2:13 PM CDT [facility] Specimen Anatomical Collection Method Collection Time Receive d Time (Source) Location / / Volume Laterality Blood (Blood, 10/18/2020 11:09 10/18/2020 1:40 Venous) AM CDT PM CDT Tigre Preciado P.A.-C. 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 PCP - General Family Medicine 10/11/[address] [place] [phone] documented as of this encounter
--- OUTSIDE RECORDS SUMMARY | 2022-02-13 09:15 | XMS_ITS | Encounter Summary ---
:1945 Author Organization [facility] Address [address] [place] [address] Care Team Providers Name Role Phone Tigre Preciado P.A.-C. Primary Care Provider [phone] Reason for Visit Reason Comments Colonoscopy Encounter Details Date Type Department Care Team Description 03/12/2020 Nurse Triage Department of [facility] Adal Aldridge Tasia, [place] Colonoscopy Medicine, [facility], [address] [place], [place] [address] [facility] [address] [address] [place] [address] [phone] Social History Tobacco Use Types Packs/Day Years [...] this encounter Miscellaneous Notes Telephone Encounter - Milagros Aldridge R.N. - 03/12/2020 4:19 AM CST Chief Complaint / Reason for Call Patient is a 74 y.o. female calling regarding Colonoscopy. Assessment Concern: Colonoscopy scheduled for the morning, she has been trying to do the prep all night. She isstruggling to tolerate the prep. Her test is scheduled for 8 a.m. this morning. Is having liquid diarrhea. The magnesium citrate lisa. She has taken the laxative earlier and half of the magnesium citrate. Present for: overnight Home cares tried: Sipping on other liquids Calling to request: advice The recommended disposition is Home Care Reason for Disposition ??? Abdominal bloating, cramping, nausea, or vomiting while drinking bowel prep, questions about Protocols used: COLONOSCOPY SYMPTOMS AND [id number] Care Advice Patient/Caregiver understands and will follow care advice?: Yes, able to teach back HOME CARE: * You should be able to treat this at home. REASSURANCE AND EDUCATION: * Most liquid bowel preps have a pleasant flavor. However, some people do not like the taste. * The prep can sometimes cause mild nausea or cramps. Less often, a person may vomit a couple times. * It is important to try and take the prep as ordered. * Here is some care advice that should help. TIPS TO IMPROVE THE TASTE OF THE BOWEL PREP: * Keep the liquid bowel prep in the fridge. It often tastes better cold. * You can add sugar-free flavor packets or drops (such as Crystal Light or [place]) to improve the taste. CAUTION: Do not use red-colored flavoring. It can be mistaken for blood. * Use a straw to drink the bowel prep. Some people find this helps. TIPS TO RELIEVE NAUSEA DUE TO THE BOWEL PREP: * If you vomit or feel very nauseated, stop taking the prep. * Let your stomach rest for one hour. * Then start sipping the bowel prep liquid again. Take a sip every 5 minutes. * Try to drink as much of the bowel prep as possible. GOAL: * The goal of the prep is to clean out the colon and remove all stool. * During your prep, you will pass lots of liquid stool. * Towards the end of your prep, the stool should look like castellanos or yellow clear water (similar to urine). CALL BACK IF: * You continue to vomit following this care advice * You are unable to continue taking the bowel preparation * You have other questions or concerns * You become worse. 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 PCP - General Family Medicine 10/11/19 [address] [place] [phone] documented as of this encounter
--- OUTSIDE RECORDS SUMMARY | 2022-02-13 09:15 | XMS_ITS | Encounter Summary ---
:1945 Author Organization [facility] Address [address] [place] [address] Care Team Providers Name Role Phone Tigre Preciado P.A.-C. Primary Care Provider [phone] Reason for Visit Reason Comments Results Encounter Details Date Type Department Care Team Description 10/18/2020 Clinical Communication Department of [facility] Tigre Preciado, [facility] Medicine, [place] [facility], in [address] [address] [place], [place] [phone] (Work) [phone] Social History Tobacco Use Types Packs/Day Years [...] this encounter Miscellaneous Notes Telephone Encounter - Malena Trevizo R.M.A. - 10/23/2020 8:29 AM CDT SUBJECTIVE CHIEF COMPLAINT / REASON FOR CALL Results PLAN The following information was provided: Per Tigre Preciado PA-C patient notified of the following: Please call the patient. ??Her x-ray does show a large amount of stool present. ??It is possible that constipation could contribute to this. ??It would be reasonable to try some MiraLax to see if this helps alleviate some of the stool burden and this might help with some of her symptoms she is experiencing. Information/Education: patient/caller able to teach back The following references were used: none Telephone Encounter - Minerva Lock L.P.N. - 10/22/2020 9:56 AM CDT Images from the original note were not included. Left message for patient to return call to clinic. ?? Does the patient need to speak to nursing? N/A ?? Action needed: please inform the patient of the following ? Result Notes Awilda Levine CCMA 10/18/2020 ??1:21 PM CDT Back to Top Result Notes Tigre Preciado P.A.-C. 10/18/2020 12:52 PM CDT Back to Top ?? Please call the patient. ??Her x-ray does show a large amount of stool present. ??It is possible that constipation could contribute to this. ??It would be reasonable to try some MiraLax to see if this helps alleviate some of the stool burden and this might help with some of her symptoms she is experiencing. Telephone Encounter - Awilda Levine CCMA - 10/18/2020 4:51 PM CDT Images from the original note were not included. Left message for patient to return call to clinic. Patient has no voicemail Does the patient need to speak to nursing? yes Action needed: inform the patient of the following Tigre Preciado P.A.-C. P [facility] Fam Fbfb Nurse Cc: Noel Veliz Fbfb Scheduling Please let her know I have everything back but her celiac test. ??The rest of her labs look good. ??I will see her back as we discussed after the CT scan. ??I am also copying the schedulers on this. ??I see that her follow-up is November [address] scanis October 30. ??I should be able to see her on the or of October. 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 PCP - General Family Medicine 10/11/19 [address] [place] [phone] documented as of this encounter
--- OUTSIDE RECORDS SUMMARY | 2022-02-13 09:15 | XMS_ITS | Encounter Summary ---
:1945 Author Organization [facility] Address [address] [place] [address] Care Team Providers Name Role Phone Tigre Preciado P.A.-C. Primary Care Provider [phone] Reason for Visit Reason Comments Abdominal Pain Lower Left, gas, 4 days on and off, not sleeping Pain Lower Left, started last nig ht Nausea denies vomiting, 4 days come s and goes gagging with eating, 4 times Appointment Request (Routine) - Closed Specialty Diagnoses / Procedures Referred By Contact Refer red To Contact Family Medicine Referral ID Status Reason Start Date Expiration Date Visits Requ ested Visits Authorized [id number] Closed 10/15/2020 10/15/2021 1 1 Encounter Details Date Type Department Care Team Description 10/15/2020 Office Visit Department of Family Kitty Garrett [facility], [facility], in [place] (Primary Dx) [place] [address] [place] [phone] Social History Tobacco Use Types Packs/Day Years [...] Sign Reading Time Taken Comments Blood Pressure 133/61 10/15/2020 1:17 PM CDT Pulse 79 10/15/2020 1:17 PM CDT Temperature 36.4 ??C (97.5 ??F) 10/15/2020 1:17 PM CDT Respiratory Rate 16 10/15/2020 1:17 PM CDT Oxygen Saturation 96% 10/15/2020 1:17 PM CDT Inhaled Oxygen Concentration - - Weight 57.3 kg (126 lb 5.2 oz) 10/15/2020 1:17 PM CDT Height - - Body Mass Index 22.38 03/04/2020 3:49 PM TACKER OFF documented in this encounter Progress Notes Del Garrett P.A.-C. - 10/15/2020 1:30 PM CDT SUBJECTIVE CHIEF COMPLAINT / REASON FOR VISIT Isadora Back is a 75 y.o. female who presents for evaluation of Abdominal Pain (Lower Left, gas,4 days on and off, not sleeping), Pain (Lower Left, started last night), and Nausea (denies vomiting, 4 days comes and goes gagging with eating, 4 times). HISTORY OF PRESENT ILLNESS Patient states that She has been feeling ill for 4 day(s). The abdominal pain has been Moderate and located LLQ, associated by nausea. Pt has had no fever . Chills and sweats have been absent. She denied any vomiting, diarrhea, signs of constipation. Also denied frequency and urgency with urination. No household members or close friends have had similar symptoms. Pt denied any recent travel or ingestion of untreated water or suspicious foods. Pt has h/o diverticulitis. Denied surgeries or ho spitalizations The following portions of the patient's history were reviewed and updated as appropriate: allergies,current medications, family history, medical history, social history, surgical history and problem list. Brief Review of Systems: A brief review of systems was negative except for that mentioned in the history of present of illness. Past Surgical History: Procedure Laterality Date ??? BREAST BIOPSY Right OK ??? COLONOSCOPY W/ OR W/O BIOPSY 11/10/[address] Eric Cabrera who recommended repeat in 5 years. ??? DILATION AND CURETTAGE OF UTERUS at age 15 for menorrhagia ??? LAPAROSCOPIC CHOLECYSTECTOMY N/A 2007 Laparoscopic cholecystectomy ??? LUMPECTOMY BREAST Right ??? VAGINAL DELIVERY 1973 1975 1977 x 3 Current Outpatient Medications Medication Sig ??? albuterol (PROAIR HFA) 90 mcg/actuation inhaler Inhale 2 puffs every 4 (four) hours as needed. ??? calcium carbonate-vitamin D3 1,250 mg (500 mg calcium)-400 unit per chewable tablet Chew 1 tablet. ??? CRANBERRY FRUIT EXTRACT (CRANBERRY ORAL) cranberry oral tablet PRN: Urinary discomfort ??? LACTOBACILLUS ACIDOPHILUS (ACIDOPHILUS ORAL) Take by mouth daily. ??? magnesium 200 mg tablet Take 400 mg by mouth daily. ??? multivitamin tablet Take 1 tablet by mouth. ??? SUMAtriptan (IMITREX) 25 mg tablet Take 1 tablet (25 mg total) by mouth as needed for migraine. May repeat dose once in 2 hours if migraine unresolved. ??? vitamin A,C,F-jpndxt-voksrmfk (OCUVITE W/LUTEIN) 1,000 Unit-200 mg-60 Unit-2 mg tablet Take 1 tablet by mouth daily. ??? amoxicillin-pot clavulanate (AUGMENTIN) 875-125 mg per tablet Take 1 tablet by mouth every 12 (twelve) hours for 10 days. ??? nystatin (MYCOSTATIN) 100,000 unit/mL suspension Take 5 mL (500,000 Units total) by mouth 4 (four) times a day. Swish in mouth and swallow (Patient not taking: Reported on 10/15/2020 ) Allergies Allergen Reactions ??? Fluconazole Other (see comments) and Anaphylaxis Lip blister, throat closing ??? Cefuroxime Axetil GI intolerance Other reaction(s): GI Upset ??? Azithromycin Nausea Only and GI intolerance Mood changes Other reaction(s): Headache Mood changes ??? Ciprofloxacin Tendonitis Other reaction(s): Myalgia ??? Latex Rash ??? Lidocaine-Epinephrine Palpitations ??? Metronidazole Tendonitis Other reaction(s): Myalgia ??? Sulfa (Sulfonamide Antibiotics) Nausea Only OBJECTIVE PHYSICAL EXAM BP 133/61 (BP Location: Right arm, Patient Position: Sitting, Cuff Size: Regular) Pulse 79 Temp 36.4 ??C (Temporal) Resp 16 Wt 57.3 kg LMP (LMP Unknown) SpO2 96% BMI 22.38 kg/m?? Body mass index is 22.38 kg/m??. GENERAL: this patient is alert and awake in NAD in no acute distress, responds appropriately to auditory and visual stimmuli HEENT: mucosa of the mouth is WNL, no sores or other lesions noted, hydration normal RESPIRATORY: lungs are clear to ascultation, no wheezing/rales or rhonchi; normal respiratory effort, no retractions; CVA tenderness absent bilateral ABDOMEN: soft, bowel sounds are present in all four quads; tenderness present in LLQ and is Moderate, rebound Absent HEART: RRR, SKIN: normal color tugor, temperature and moisture, no rashes or lesions are noted DIAGNOSTICS: No results found for this or any previous visit (from the past 24 hour(s)). ASSESSMENT/PLAN: Diagnosis Plan 1. Tenderness Left Lower Quadrant Abdominal amoxicillin-pot clavulanate (AUGMENTIN) 875-125 mg per tablet Discussed etiology, course and treatment of diverticular disease and diverticulitis. Eduction from up-to-date beyond the basics provided. Questions answered. Go to the ED if severe pain, fever and chills. Advised to stay hydrated and rested. Suggested increasing dietary fiber content in the diet. Advisedavoiding foods that promote constipation. Discussed in detail, questions answered. Follow up in 2-3 days if sxs worsen. Del Garrett P.A.-C. documented in this encounter Plan of Treatment Not on filedocumented as of this encounter Visit Diagnoses Diagnosis Tenderness Left Lower Quadrant Abdominal - Primary documented in this encounter Additional Health Concerns Assessment Noted Time PHQ-9 Depression Total Score: 1 06/02/2017 9:34 AM TACKER OFF documented as of this encounter Care Teams Digital Field Service Technician Relationship Specialty Start Date End Date Tigre Preciado P.A.-C. PCP - General Family Medicine 10/11/[address] [place] [phone] documented as of this encounter
--- OUTSIDE RECORDS SUMMARY | 2022-02-13 09:15 | XMS_ITS | Encounter Summary ---
:1945 Author Organization [facility] Address [address] [place] [address] Care Team Providers Name Role Phone Tigre Preciado P.A.-C. Primary Care Provider [phone] Encounter Details Date Type Department Care Team Description 10/16/2020 Clinical Communication [facility] [address] [place] [phone] Social History Tobacco Use Types Packs/Day Years [...] this encounter Miscellaneous Notes Telephone Encounter - Del Garrett P.A.-C. - 10/16/2020 1:48 PM CDT Returned phone call. Will hold antibiotics for now. Pt's abdominal pain is better. Advised to followup in 2-3 days. Questions answered. Del Garrett P.A.-C. Telephone Encounter - Meliza Steiner - 10/16/2020 10:58 AM CDT Patient states she started the Augmentin at 6pm and was vomiting at 11pm. Patient is wondering if this is the right medication for her. 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 PCP - General Family Medicine 10/11/[address] [place] [phone] documented as of this encounter
--- OUTSIDE RECORDS SUMMARY | 2022-02-13 09:15 | XMS_ITS | Encounter Summary ---
:1945 Author Organization [facility] Address [address] [place] [address] Care Team Providers Name Role Phone Tigre Preciado P.A.-C. Primary Care Provider [phone] Reason for Visit Reason Comments Results Encounter Details Date Type Department Care Team Description 10/18/2020 Clinical Communication Department of [facility] Tigre Preciado, [facility] Medicine, [place] [facility], in [address] [address] [place], [place] [phone] (Work) [phone] Social History Tobacco Use Types Packs/Day Years [...] this encounter Miscellaneous Notes Telephone Encounter - Awilda Levine CCMA - 10/18/2020 1:23 PM CDT Images from the original note were not included. Left message for patient to return call to clinic. Does the patient need to speak to nursing? N/A Action needed: please inform the patient of the following Result Notes Awilda Levine CCMA 10/18/2020 ??1:21 [...] some of her symptoms she is experiencing. 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 PCP - General Family Medicine 10/11/19 [address] [place] [address] documented as of this encounter
--- OUTSIDE RECORDS SUMMARY | 2022-02-13 09:15 | XMS_ITS | Encounter Summary ---
:1945 Author Organization [facility] Address [address] [place] [address] Care Team Providers Name Role Phone Tigre Preciado P.A.-C. Primary Care Provider [phone] Reason for Visit Reason Comments Follow-up go over CT scan results from 10/30 in [facility]. Outpatient (Routine) - Closed Specialty Diagnoses / Procedures Referred By Contact Refer red To Contact Family Medicine Tigre Preciado P. A.-C. [address] [phone] Referral ID Status Reason Start Date Expiration Date Visits Requ ested Visits Authorized [id number] Closed 10/18/2020 10/18/2021 1 1 Encounter Details Date Type Department Care Team Description 10/31/2020 Office Visit Department of Tigre Simon [facility] Irritable Bowel [facility], [place], in [address] [facility] [address] [place], [place] [phone] (Work) [phone] Social History Tobacco Use Types Packs/Day Years [...] Sign Reading Time Taken Comments Blood Pressure 124/59 10/31/2020 2:12 PM CDT Pulse 84 10/31/2020 2:12 PM CDT Temperature 35.8 ??C (96.5 ??F) 10/31/2020 2:12 PM CDT Respiratory Rate 20 10/31/2020 2:12 PM CDT Oxygen Saturation - - Inhaled Oxygen Concentration - - Weight 56.5 kg (124 lb 9 oz) 10/31/2020 2:12 PM CDT Height 161 cm (5' 3.39) 10/31/2020 2:12 PM CDT Body Mass Index 21.8 10/31/2020 2:12 PM CDT documented in this encounter Progress Notes Modesta Byrne REldaN. - 10/31/2020 2:30 PM CDT SUBJECTIVE CHIEF COMPLAINT/REASON FOR VISIT Chief Complaint Patient presents with ??? Follow-up go over CT scan results from 10/30 in [facility]. HISTORY OF PRESENT ILLNESS Isadora Back is a 75 y.o. female who presents to the clinic today for follow up of abdominal pain.This been ongoing issue for her, and she was recently seen in the urgent care for this. Tigre saw her for follow-up on October 18, 2020 and ordered labs and CT scan. Since that visit, she states her symptoms reoccurred last night with severe abdominal cramping and pain that continued throughout the night. This morning she experienced more bloating and belching and an overall decrease in appetite. She sees an accupuncturist regularly and saw one before this visit which she experienced relief from. She adds she has tried to remove dairy from her diet, but only did this for one week and didn't find a diff erence. She seems to associate many of these symptoms with cheese intake. We talked that removing dairy can take up to a month to see a difference. In addition, today we reviewed her labs which were noncontributory and her CT was negative as well for findings that would be related to her symptomology of abdominal pain and cramping. We discussed in detail trying a FODMAP diet to see if there is any association with food sensitivities. She expressed interest in this, so I printed and gave her instructions and more information on the FODMAP diet. REVIEW OF SYSTEMS ROS negative except for in HPI above The patient's social history, problem list, medications and allergies were reviewed in the electronic medical record. OBJECTIVE VITAL SIGNS BP 124/59 (BP Location: Right arm, Patient Position: Sitting, Cuff Size: Regular) Pulse 84 Temp (!) 35.8 ??C (Temporal) Resp 20 Ht 161 cm Wt 56.5 kg LMP (LMP Unknown) BMI 21.80 kg/m?? PHYSICAL EXAMINATION General: Alert female in no acute distress, nontoxic in appearance, well dressed, normal hygiene. Cardiovascular: Regular rate, rhythm, S1, S2. No murmur. No edema. Respiratory: Lungs clear to auscultation in the anterior and posterior chest, easy Respirations. Nonlabored breathing. : Soft, flat abdomen. Mildly tender in upper abdomen on light palpation. BS present. No hepatomegaly or organomegaly appreciated. Neurologic: Alert, oriented, steady gait. Extremities: Warm, pink, dry. DIAGNOSTICS: No results found for this or any previous visit (from the past 24 hour(s)). CT Abdomen Pelvis without IV Contrast Result Date: 10/30/2020 Impression: No acute or suspicious finding in the abdomen or pelvis by noncontrast CT. No findings to explain the patient's symptoms. Incidental findings are in the body of the report. ASSESSMENT / PLAN #1 Mixed Irritable Bowel Syndrome Other orders - Family Medicine office visit (clinic) - dicyclomine (BENTYL) 10 mg capsule; Take 1 capsule (10 mg total) by mouth 4 (four) times a day as needed (abdominal pain or cramps)., Starting Francesca 10/31/2020, Normal After reviewing her labs and CT results, I am suspicious this could be either IBS-mixed or a food allergy/sensitivity. We discussed trying a FODMAP diet and she was agreeable to this. In addition, we discussed and offered a medication option with Bentyl for abdominal cramping relief and she is willingto try this. She will try these interventions and follow up with us as needed for further intervention. PATIENT EDUCATION Ready to learn, no apparent learning barriers were identified; learning preferences include listening. Patient was provided verbal and written education. Patient has no further questions or concerns. Patient will follow up as needed or at the next scheduled return visit. Patient will call the clinic if there are any further questions or concerns in the meantime. Thank you for letting me be involved in your care. Tigre Preciado P.A.-C. - 10/31/2020 2:30 PM CDT CHIEF COMPLAINT / REASON FOR VISIT Isadora Back is a 75 y.o. female who presents for evaluation of Follow-up (go over CT scan resultsfrom 10[facility]30 in [facility] HISTORY OF PRESENT ILLNESS Isadora presents today for follow-up of her CT scan. She continues to have abdominal bloating and discomfort. Her CT scan did not show any significant abnormalities. This always seems to be associated with a meal. She does have a history of some anxiety as well. I think it would be reasonable to treat her for irritable bowel. Patient Active Problem List Diagnosis ??? Anxiety ??? Polyp Colon Personal History ??? Asthma (HCC) ??? Osteoporosis ??? Neuropathy Peripheral ??? Hyponatremia ??? Cystocele ??? Cheilitis Angular OBJECTIVE Vitals: 10/31/20 1412 BP: 124/59 BP Location: Right arm Patient Position: Sitting Cuff Size: Regular Pulse: 84 Resp: 20 Temp: (!) 35.8 ??C TempSrc: Temporal Weight: 56.5 kg Height: 161 cm Body mass index is 21.8 kg/m??. PHYSICAL EXAM In general she appears in no acute distress Heart: Regular rate rhythm no murmurs Lungs: Clear to auscultation Abdomen: Soft and nontender IMPRESSION / REPORT / PLAN #1 Mixed Irritable Bowel Syndrome We had a good discussion about this. I saw her today with nurse practitioner student Modesta Byrne. She is going to work on a FODMAP diet and I am going to give her a trial of some Bentyl for her ongoing issues with irritable bowel. If her symptoms worsen or not improve with this she will let us know and we will consider further imaging possibly EGD. Tigre Preciado P.A.-C. documented in this encounter Plan of Treatment Not on filedocumented as of this encounter Visit Diagnoses Diagnosis Mixed Irritable Bowel Syndrome - Primary documented in this encounter Additional Health Concerns Assessment Noted Time PHQ-9 Depression Total Score: 1 06/02/2017 9:34 AM SOCIAL SERVICE MANAGER documented as of this encounter Care Teams Appliance Fixer Relationship Specialty Start Date End Date Tigre Preciado P.A.-C. PCP - General Family Medicine 10/11/19 [address] [place] [address] documented as of this encounter
--- OUTSIDE RECORDS SUMMARY | 2022-02-13 09:15 | XMS_ITS | Encounter Summary ---
:1945 Author Organization [facility] Address [address] [place] [address] Care Team Providers Name Role Phone Tigre Preciado P.A.-C. Primary Care Provider [phone] Reason for Visit Reason Comments Diverticulitis Encounter Details Date Type Department Care Team Description 10/15/2020 Nurse Triage Department of [facility] Claudia Tovar D iverticulitis Medicine, [facility] [address] [address] Social History Tobacco Use Types Packs/Day [...] encounter Miscellaneous Notes Telephone Encounter - Claudia Tovar RKarime. - 10/15/2020 8:13 AM CDT COVID-19 Nurse Line Screening ASSESSMENT Region Select appropriate region: : [place] Age Pathway Select approprite pathway: : Adult Have you had close contact* with a person who has a LABORATORY CONFIRMED case of COVID-19 in the past 14 days?: No (Continue Screening) In the last 48 hours, have you had a fever* OR symptoms that are unrelated to a preexisting illness?: No symptoms noted (Continue Screening) Have you tested positive for COVID-19 in the last 90 days?: No (Continue Screening) Have you been advised to undergo testing or are you requesting testing?: No, testing not recommended(End Screening) Testing Recommendation Endpoint Is testing recommended? : Not recommended to test PLAN Endpoint recommendation: Screening negative, testing not indicated at this time Asymptomatic without exposure Carepoints: Testing is not recommended at this time. If you become symptomatic, please call back for additional screening. Patient agreeable to plan of care: Yes The following references were used: [facility] novel coronavirus (COVID- 19) resources Telephone Encounter - Claudia Tovar R.N. - 10/15/2020 8:02 AM CDT Chief Complaint / Reason for Call Patient is a 75 y.o. female calling regarding Diverticulitis. Assessment Concern: Abdominal and back pain Home cares tried: Rest, bland diet Calling to request: Advice The recommended disposition is See a health care provider within 24 hours. Warm transfer to [facility]. Location: pain in her Left lower back, bloating and gas. Onset: Wednesday. Sudden: Comes on worse at night when laying. Severity: 3/10 Recurrent symptoms: Patient has hx of of diverticulitis. Relieving/Aggravating factors: Passing gas. Other symptoms: Decreased appetite Denies vomiting, constipation, diarrhea, or urine problems. Reason for Disposition ??? [1] MILD pain (e.g., does not interfere with normal activities) AND [2] pain comes and goes (cramps) AND [3] present > 48 hours Protocols used: ABDOMINAL PAIN - [id number] Care Advice Patient/Caregiver understands and will follow care advice?: Yes, able to teach back SEE PCP WITHIN 24 HOURS: * IF OFFICE WILL BE OPEN: You need to be seen within the next 24 hours. Call your doctor (or MATERIALS DIRECTOR/PA) when the office opens and make an appointment. * IF OFFICE WILL BE CLOSED AND NO PCP (PRIMARY CARE PROVIDER) SECOND-LEVEL TRIAGE: You need to be seen within the next 24 hours. A clinic or an urgent care center is often a good source of care if yourdoctor's office is closed or you can't get an appointment. * IF OFFICE WILL BE CLOSED AND PCP SECOND-LEVEL TRIAGE REQUIRED: You may need to be seen within the next 24 hours. Your doctor (or MATERIALS DIRECTOR/PA) will want to talk with you to decide what's best. I'll page theon-call provider now. NOTE: Since this isn't serious, hold the page between 10 pm and 7 am. Page theon-call provider in the morning. * IF PATIENT HAS NO PCP: Refer patient to a clinic or urgent care center. Also try to help caller find a PCP for future care. CALL BACK IF: * Severe pain lasts over 1 hour * Constant pain lasts over 2 hours * You become worse. documented in this encounter Plan of Treatment Not on filedocumented as of this encounter Visit Diagnoses Not on filedocumented in this encounter Additional Health Concerns Assessment Noted Time PHQ-9 Depression Total Score: 1 06/02/2017 9:34 AM POWER ORIGINATOR documented as of this encounter Care Teams Balling Machine Operator Relationship Specialty Start Date End Date Tigre Preciado P.A.-C. PCP - General Family Medicine 10/11/19 [address] [place] [phone] documented as of this encounter
--- OUTSIDE RECORDS SUMMARY | 2022-02-13 09:15 | XMS_ITS | Encounter Summary ---
:1945 Author Organization [facility] Address [address] [place] [address] Care Team Providers Name Role Phone Tigre Precaido P.A.-C. Primary Care Provider [phone] Reason for Visit MRI/CAT/PET Scan (Routine) - Closed Specialty Diagnoses / Procedures Referred By Contact Refer red To Contact Radiology Diagnoses Bloating Abdominal Tigre Preciado P.A.-C. [facility] Region Procedures CT Abdomen Pelvis without IV Contrast CT Abdomen Pelvis with IV Contrast CT Abdomen Pelvis without IV Contrast FL CT ABD&PELVIS W CNTRST FL CT ABD&PELVIS WO CNTRST [address] [place] [address] Referral ID Status Reason Start Date Expiration Date Visits Requ ested Visits Authorized [id number] Closed 10/18/2020 10/18/2021 1 1 Encounter Details Date Type Department Care Team Description 10/30/2020 Hospital Encounter Department of Maverick Preciado Abdominal Radiology in [place], [place] [address] [facility] [address] [place] [phone] Social History Tobacco Use Types Packs/Day Years [...] mouth. vitamin Take 1 tablet by 0 A,C,E-voaoyy-wshtyrqz mouth daily. (OCUVITE W/LUTEIN) 1,000 Unit-200 mg-60 [...] Procedure Name Priority Date/Time Associated Comments Diagnosis CT ABDOMEN PELVIS RAD - Semiurgent 10/30/2020 3:46 Bloating Res ults for this WITHOUT IV (Fast; most ED PM CDT Abdominal procedure are in CONTRAST patients; some the results inpatients) section. documented in this encounter Results CT Abdomen Pelvis without IV Contrast (10/30/2020 3:46 PM CDT) Anatomical Region Laterality Modality Abdomen, Pelvis, Abdominal RST LOS, Abdominal ARZ LOS, N/A Computed Tomography Abdominal FLA LOS Specimen (Source) Anatomical Collection Method Collection Time Re ceived Time Location / / Volume Laterality 10/30/2020 3:54 PM CDT Impressions 10/30/2020 3:58 PM CDT No acute or suspicious finding in the abdomen or pelvis by noncontrast CT. No findings to explain the patient's sympto ms. Incidental findings are in the body of the report. Narrative 10/30/2020 3:58 PM CDT EXAM: CT ABDOMEN PELVIS WITHOUT IV CONTRAST COMPARISON: None FINDINGS: Evaluation for malignancy and/ or infection is slightly limited without the use of intravenous contrast. Mild bibasilar scarring/atelectasis in t he lungs. No pleural or pericardial effusion. Abdomen/pelvis: Cholecystectomy. No acut e or suspicious finding within the noncontrast enhanced liver, spleen, adre nal glands, pancreas, or kidneys. No hydronephrosis or nephrolithiasis. No hy droureter or obstructing ureteral stone. Urinary bladder is decompressed. Gynecol ogic structures are unremarkable. No adnexal mass. Stomach and duodenum are unremarkable. N o bowel obstruction. Appendix is not seen and may be surgically absent. No ev idence of acute appendicitis. Redundant colon. No significant colonic diverticul osis. No abnormal bowel wall thickening. No free fluid or free air. Aorta is norm al in caliber. No abnormally enlarged lymph nodes. Grade 2 anterolisthesis of L5 on S1 rela erickson to bilateral L5 spondylolysis. Convex left scoliotic curvature of the t horacolumbar spine. Thoracolumbar spondylosis. Osteitis pubis. Mild degene rative changes at the sacroiliac joints. No acute or suspicious finding. Procedure Note Dawson Xiong M.D. - 10/30/2020Formattin g of this note might be different from the original. EXAM: CT ABDOMEN PELVIS WITHOUT IV CONTR AST COMPARISON: None FINDINGS: Evaluation for malignancy and/ or infection is slightly limited without the use of intravenous contrast. Mild bibasilar scarring/atelectasis in t he lungs. No pleural or pericardial effusion. Abdomen/pelvis: Cholecystectomy. No acut e or suspicious finding within the noncontrast enhanced liver, spleen, adre nal glands, pancreas, or kidneys. No hydronephrosis or nephrolithiasis. No hy droureter or obstructing ureteral stone. Urinary bladder is decompressed. Gynecol ogic structures are unremarkable. No adnexal mass. Stomach and duodenum are unremarkable. N o bowel obstruction. Appendix is not seen and may be surgically absent. No ev idence of acute appendicitis. Redundant colon. No significant colonic diverticul osis. No abnormal bowel wall thickening. No free fluid or free air. Aorta is norm al in caliber. No abnormally enlarged lymph nodes. Grade 2 anterolisthesis of L5 on S1 rela erickson to bilateral L5 spondylolysis. Convex left scoliotic curvature of the t horacolumbar spine. Thoracolumbar spondylosis. Osteitis pubis. Mild degene rative changes at the sacroiliac joints. No acute or suspicious finding. IMPRESSION: No acute or suspicious finding in the ab domen or pelvis by noncontrast CT. No findings to explain the patient's sympto ms. Incidental findings are in the body of the report. Tigre Preciado P.A.-C. 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 PCP - General Family Medicine 10/11/19 [address] [place] [address] documented as of this encounter
--- OUTSIDE RECORDS SUMMARY | 2022-02-13 09:15 | XMS_ITS | Encounter Summary ---
:1945 Author Organization [facility] Address [address] [place] [address] Care Team Providers Name Role Phone Tigre Preciado P.A.-C. Primary Care Provider [phone] Reason for Visit Reason Comments Form Review PT POC Encounter Details Date Type Department Care Team Description 08/09/2020 Clinical Communication Department of Grant Preciado Review (PT Family Medicine, Tiger, POC) [facility] in [address] [facility] [address] [place], [place] [phone] (Work) [phone] Social History Tobacco Use Types Packs/Day Years [...] encounter Miscellaneous Notes Telephone Encounter - Carie Naranjo - 08/09/2020 1:41 PM CDT Form faxed back to facility and sent to scanning. Telephone Encounter - Carie Naranjo - 08/09/2020 10:36 AM CDT BATH STEWARD: [facility] PHONE NUMBER: [phone] INFO REQUESTED: POC 08/06/20 INSTRUCTIONS: Fax to: [phone] Requested information was emailed/faxed to Tigre Preciado for review/signature electronically. 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 PCP - General Family Medicine 10/11/[address] [place] [phone] documented as of this encounter
--- OUTSIDE RECORDS SUMMARY | 2022-02-13 09:15 | XMS_ITS | Encounter Summary ---
:1945 Author Organization [facility] Address [address] [place] [address] Care Team Providers Name Role Phone Tigre Preciado P.A.-C. Primary Care Provider [phone] Encounter Details Date Type Department Care Team Description 03/09/2020 Lab Department of [facility] Tigre Preciado, En counter For Screening Medicine, [facility] P.A.-C. For Other Viral Diseases [facility], in [address] (COVID-19) [place], [place] [address] [facility] [address] [place] [address] [phone] Social History Tobacco Use Types Packs/Day Years [...] Associated Diagnosis Comme nts SARS CORONAVIRUS-2 Routine 03/09/2020 1:12 PM Encounter For Re sults for this RNA, V APPLICATIONS PROCESSOR Screening For Other procedur e are in Viral Diseases the results (COVID-19) section. documented in this encounter Results SARS Coronavirus-2 RNA, V Asymptomatic (03/09/2020 1:12 PM APPLICATIONS PROCESSOR) [facility] gist Method Time Signature SARS-CoV-2 Swab, 03/10/2020 [facility] Specimen Nasopharynx 6:19 AM APPLICATIONS PROCESSOR Source SARS CoV-2 Undetected Undetected 03/10/2020 [facility] RNA, TMA 6:19 AM APPLICATIONS PROCESSOR Comment: SARS-CoV-2 RNA absent. This result does not rule out COVID-19 in the patient, as the sensitivity of the test depends o n the timing of the specimen collection and the quality of the specim en. Result should be correlated with patient's history and clinical presentat ion. ----ADDITIONAL INFORMATION---- This test is performed using the Aptima SARS-CoV-2 assay ([employer] which has received Emergency Use Authori zation (EUA) by the U.S. Food and Drug Administration. Fact sheets for this Emergency Use Autho rization (EUA) assay can be found at the following links: For Healthcare Providers: https://www.fd a.gov/media/819107/download For Patients: https://www.fda.gov/media/ 025889/download Specimen Anatomical Collection Method Collection Time Receive d Time (Source) Location / / Volume Laterality Varies 03/09/2020 1:12 PM 0 8:47 (Nasopharynx) APPLICATIONS PROCESSOR PM APPLICATIONS PROCESSOR Tigre Preciado P.A.-C. LAB MICROBIOLOGY - GENERAL O RDERABLES Performing Organization Address City/State/ZIP Code Phon e Number [facility]- [address] [place] [address] [facility] [place] [address] System in [place] [address] [place] [address] documented in this encounter Visit Diagnoses Diagnosis Encounter For Screening For Other Viral Diseases (COVID-19) documented in this encounter Additional Health Concerns Infection Onset Date Last Indicated Resolved Time COVID19 Pending 03/09/2020 03/09/2020 03/10/2020 6:19 AM APPLICATIONS PROCESSOR Assessment Noted Time PHQ-9 Depression Total Score: 1 06/02/2017 9:34 AM APPLICATIONS PROCESSOR documented as of this encounter Care Teams Earth Moving Machine Operator Relationship Specialty Start Date End Date Tigre Preciado P.A.-C. PCP - General Family Medicine 10/11/[address] [place] [phone] documented as of this encounter
--- OUTSIDE RECORDS SUMMARY | 2022-02-13 09:15 | XMS_ITS | Encounter Summary ---
:1945 Author Organization [facility] Address [address] [place] [address] Care Team Providers Name Role Phone Tigre Preciado P.A.-C. Primary Care Provider [phone] Encounter Details Date Type Department Care Team Description 10/18/2020 Clinical Communication Department of [facility] Tigre Preciado, [facility], [place] [facility], in [address] [address] [place], [place] [phone] (Work) [phone] Social History Tobacco Use Types Packs/Day Years [...] this encounter Miscellaneous Notes Telephone Encounter - Arminda Willoughby - 10/18/2020 8:10 AM CDT What is the purpose of the call?: Standard Appointment Process Standard Appointment Process Have you tested positive for COVID-19 in the last 20 days OR do you have a pending COVID-19 test because you had symptoms?: No, neither apply What region is the appointment being requested?: Less than 14 days [employer] In the past 14 days are any of the following symptoms new to you and not related to an existing health condition?: No symptoms noted In the past 14 days have you had close contact* with a person who has a LABORATORY CONFIRMED case ofCOVID-19?: No exposure noted, follow appt process (End Screening) Testing Recommendation Endpoint Is testing recommended? : Not recommended to test Plan: Endpoint recommendation: Followed regional OTG *Reminder if sending patient for testing in [facility] or [facility], route encounter to the correct testing pool. 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 PCP - General Family Medicine 10/11/[address] [place] [phone] documented as of this encounter
--- OUTSIDE RECORDS SUMMARY | 2022-02-13 09:15 | XMS_ITS | Encounter Summary ---
:1945 Author Organization [facility] Address [address] [place] [address] Care Team Providers Name Role Phone Tigre Preciado P.A.-C. Primary Care Provider [phone] Reason for Visit Reason Comments Medication Question Encounter Details Date Type Department Care Team Description 11/06/2020 Clinical Communication [facility] in [address] [facility] [address] [place], [place] [phone] [phone] (Work) [phone] Social History Tobacco Use Types Packs/Day Years [...] this encounter Miscellaneous Notes Telephone Encounter - Rianna Groves R.N. - 11/08/2020 9:44 AM CDT After reviewing patient's chart, it appears that the original prescription was prescribed by Nurse triage line. It also appears that patient was seen for this at [facility] and prescribed Amoxicillin. Telephone Encounter - Minerva Lock L.P.NElda - 11/07/2020 3:03 PM CDT Left message with to have patient return our call. Telephone Encounter - Kanchan Hart - 11/07/2020 11:09 AM CDT Reason for Communication: Patient is calling she is upset wants to have Amoxicillin not Augmentin sent to Pharmacy Current Can Nursing/Provider leave a detailed message?: yes Did the patient refuse triage through Nurse line? (for symptom based concerns): na Action Needed: Please send to [facility] for her Name of Medication (if relevant): Amoxicillin Please send all scheduling replies to scheduling pool. Telephone Encounter - Maricruz Gamboa - 11/06/2020 3:42 PM CDT Reason for Communication: Patient calling. States the wrong Prescription was sent to [facility]. Patient states she cannot take Augmentin as she throws that up. States [facility] Current Can Nursing/Provider leave a detailed message?: yes Did the patient refuse triage through Nurse line? (for symptom based concerns): n/a Action Needed: Call Pharmacy Name of Medication (if relevant): Amoxicillin Please send all scheduling replies to scheduling pool. Telephone Encounter - Nevaeh Baca - 11/06/2020 12:26 PM CDT Reason for Communication: Pharmacist from [facility] called in and stated that patient will not take the compound Amoxicillin since last time she took it she got sick. Patient is willing to try just Amoxicillin. Please send new script to [facility] in [place] Current Can Nursing/Provider leave a detailed message?: No Did the patient refuse triage through Nurse line? (for symptom based concerns): Action Needed: Please send new script to [facility] in [place] Name of Medication (if relevant): amoxicillin-pot clavulanate (AUGMENTIN) Please send all scheduling replies to scheduling pool. 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 PCP - General Family Medicine 10/11/[address] [place] [phone] documented as of this encounter
--- OUTSIDE RECORDS SUMMARY | 2022-02-13 09:16 | XMS_ITS | Encounter Summary ---
:1945 Author Organization [facility] Address [address] [place] [address] Care Team Providers Name Role Phone Tigre Preciado P.A.-C. Primary Care Provider [phone] Encounter Details Date Type Department Care Team Description 01/24/2020 Clinical Communication Department of [facility] Tigre Preciado, [facility], [place] [facility], in [address] [address] [place], [place] [phone] (Work) [phone] Social History Tobacco Use Types Packs/Day Years [...] this encounter Miscellaneous Notes Telephone Encounter - Yana Bella - 01/26/2020 12:31 PM CDT Forwarding to SS team. Telephone Encounter - Roscoe Acevedo - 01/24/2020 9:21 AM CDT Reason for Communication: Patient calling in she is needing to reschedule her colonoscopy she originally had it scheduled for 01/18 but was need to be canceled and is now wanting to reschedule it. Please call the patient back Current Can Nursing/Provider leave a detailed message?: Yes Did the patient refuse triage through Nurse line? 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 PCP - General Family Medicine 10/11/[address] [place] [phone] documented as of this encounter
--- OUTSIDE RECORDS SUMMARY | 2022-02-13 09:16 | XMS_ITS | Encounter Summary ---
:1945 Author Organization [facility] Address [address] [place] [address] Care Team Providers Name Role Phone Tigre Preciado P.A.-C. Primary Care Provider Reason for Referral Outpatient (Routine) - Closed Specialty Diagnoses / Procedures Referred By Contact Refer red To Contact Diagnoses Screening Mammogram Breast Cancer Tiger Preciado P.A.-C. [facility] Procedures BI Breast Screening Bilateral [address] [place] [address] Referral ID Status Reason Start Date Expiration Date Visits Requ ested Visits Authorized [id number] Closed 11/13/2019 11/12/2020 1 1 Reason for Visit Outpatient (Routine) - Closed Specialty Diagnoses / Procedures Referred By Contact Refer red To Contact Diagnoses Screening Mammogram Breast Cancer Tigre Preciado P.A.-C. [facility] Procedures BI Breast Screening Bilateral [address] [place] [address] Referral ID Status Reason Start Date Expiration Date Visits Requ ested Visits Authorized [id number] Closed 11/13/2019 11/12/2020 1 1 Encounter Details Date Type Department Care Team Description 11/21/2019 Hospital Encounter Department of Loco Preciado Mammogram Radiology in [place] Breast Cancer [place], [place] [address] [phone] [phone] Social History Tobacco Use Types Packs/Day Years [...] Sig Dispensed Refills Start Date End Date calcium carbonate-vitamin Chew 1 tablet. 0 2009 [...] mouth. vitamin Take 1 tablet by 0 A,C,M-wlxfgk-gnirfzpi mouth daily. (OCUVITE W/LUTEIN) 1,000 Unit-200 mg-60 Unit-2 mg tablet albuterol 90 Inhale 2 puffs every 0 10/30/2016 mcg/actuation inhaler 4 (four) hours as needed. cyanocobalamin (vitamin Take 100 mcg by 0 03/04/2020 B-12) 100 mcg tablet mouth daily. SUMAtriptan (IMITREX) 25 Take 1 tablet (25 mg 9 tablet 5 0 11/13/2019 05/29/2021 mg tablet total) by mouth as needed for migraine. May repeat dose once in 2 hours if migraine unresolved. documented as of this encounter Plan of Treatment Not on filedocumented as of this encounter Procedures Procedure Name Priority Date/Time Associated Comments Diagnosis BI BREAST RAD - Routine 11/21/2019 1:10 Screening Results for this SCREENING (most inpatients PM CDT Mammogram Breast procedu re are in BILATERAL and all Cancer the results outpatients) section. documented in this encounter Results BI Breast Screening Bilateral (11/21/2019 1:10 PM CDT) Anatomical Region Laterality Modality Breast, Breast Imaging RST LOS, Breast Imaging [facility], Tami Bilateral Mammography Imaging [facility] Specimen (Source) Anatomical Collection Method Collection Time Re ceived Time Location / / Volume Laterality 11/21/2019 1:18 PM CDT Impressions 11/21/2019 1:19 PM CDT Negative. RECOMMENDATION: ??Annual Screening Mammo gram ASSESSMENT: ??BI-RADS: 1: Negative. Narrative 11/21/2019 1:19 PM CDT EXAM: ??BI BREAST SCREENING BILATERAL Current study was evaluated with a Compu ter Aided Detection (CAD) system. INDICATION: ??Screening mammogram. COMPARISON: ??Prior exam(s) were availab le and reviewed for comparison. DENSITY: ??c. The breast(s) are heteroge neously dense, which may obscure small masses. FINDINGS: ??No mammographic findings of malignancy. Procedure Note Sebastian Armstrong M.D. - 11/21/2019Forma tting of this note might be different from the original. EXAM: BI BREAST SCREENING BILATERAL Current study was evaluated with a Compu [...] Depression Total Score: 1 06/02/2017 9:34 AM PADDER documented as of this encounter Care Teams Systems Design Engineer Relationship Specialty Start Date End Date Tigre Preciado P.A.-C. PCP - General Family Medicine 10/11/19 [address] [place] [address] documented as of this encounter
--- OUTSIDE RECORDS SUMMARY | 2022-02-13 09:16 | XMS_ITS | Encounter Summary ---
:1945 Author Organization [facility] Address [address] [place] [address] Care Team Providers Name Role Phone Tigre Preciado P.A.-C. Primary Care Provider [phone] Reason for Visit Reason Onset Date Comments Outpatient COVID-19 Testing Outpatient COVID-19 Testing 10/11/2019 Encounter Details Date Type Department Care Team Description 10/11/2019 External Outreach Department of Sree Posadas Infect [facility] Internal Medicine in J, D.O. Respiratory (Primary [place], [place] [address] Dx) [address] [place] [phone] Social History Tobacco Use [...] documented as of this encounter Progress Notes Krysta Pierce R.N. - 10/11/2019 10:27 AM CDT Encounter created for the drive-through COVID-19 testing. documented in this encounter Plan of Treatment Not on filedocumented as of this encounter Procedures Procedure Name Priority Date/Time Associated Diagnosis Comme nts SARS CORONAVIRUS-2 Routine 10/11/2019 2:24 PM Infection Upper Results for this RNA, V CDT Respiratory procedure are i n the results section. documented in this encounter Results SARS Coronavirus-2 RNA, V Symptomatic (10/11/2019 2:24 PM CDT) [facility] Method Time Signature SARS-CoV-2 Swab, 10/12/2019 MKTO Specimen Nasopharynx 2:05 PM CDT Source SARS CoV-2 Undetected Undetected 10/12/2019 MKTO RNA, TMA 2:05 PM CDT Comment: SARS-CoV-2 RNA absent. This result does not rule out COVID-19 in the patient, as the sensitivity of the test depends o n the timing of the specimen collection and the quality of the specim en. Result should be correlated with patient's history and clinical presentat ion. ----ADDITIONAL INFORMATION---- This test is performed using the Aptima SARS-CoV-2 assay ([employer] which has received Emergency Use Authori zation (EUA) by the U.S. Food and Drug Administration. Fact sheets for this Emergency Use Autho rization (EUA) assay can be found at the following links: For Healthcare Providers: https://www.fd a.gov/media/494140/download For Patients: https://www.fda.gov/media/ 095054/download Specimen Anatomical Collection Method Collection Time Receive d Time (Source) Location / / Volume Laterality Varies 10/11/2019 2:24 PM 0 7:10 (Nasopharynx) CDT PM CDT Sree Posadas D.O. 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 PCP - General Family Medicine 10/11/[address] [place] [phone] documented as of this encounter
--- OUTSIDE RECORDS SUMMARY | 2022-02-13 09:16 | XMS_ITS | Encounter Summary ---
:1945 Author Organization [facility] Address [address] [place] [address] Care Team Providers Name Role Phone Tigre Preciado P.A.-C. Primary Care Provider [phone] Reason for Referral Outpatient (Routine) - Closed Specialty Diagnoses / Procedures Referred By Contact Refer red To Contact Diagnoses Shortness Of Breath Fatigue Cough Unspecified Type Nikkie Singletary APRN, MELONIES [facility] C.N[facility] [address] [place] [address] Referral ID Status Reason Start Date Expiration Date Visits Requ ested Visits Authorized [id number] Closed 10/11/2019 10/10/2020 1 1 Encounter Details Date Type Department Care Team Description 10/11/2019 Orders Only Department of Family Nikkie Singletary Sho rtness Of Breath (Primary Dx); Medicine, [place] [facility], C.N.P[facility] Fatigue; Clinic, in [place], [address] [place], [place] [address] [facility] [address] [place], [place] [phone] (Work) [phone] Social History Tobacco Use Types Packs/Day Years [...] Name Type Priority Associated Order Schedule Diagnoses Comprehensive Outpatient Referral Routine Shortness Of Breath Expected: Respiratory Care Fatigue 10/11/2019 Center Visit Cough (Approximate), Expires: 10/10/2022 documented as of this encounter Visit Diagnoses Diagnosis Shortness Of Breath - Primary Fatigue Cough Unspecified Type documented in this encounter Additional Health Concerns Infection Onset Date Last Indicated Resolved Time COVID19 Pending 10/11/2019 10/11/2019 10/12/2019 2:05 PM CDT Assessment Noted Time PHQ-9 Depression Total Score: 1 06/02/2017 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 PCP - General Family Medicine 10/11/19 [address] [place] [phone] documented as of this encounter
--- OUTSIDE RECORDS SUMMARY | 2022-02-13 09:16 | XMS_ITS | Encounter Summary ---
:1945 Author Organization [facility] Address [address] [place] [address] Care Team Providers Name Role Phone Tigre Preciado P.A.-C. Primary Care Provider [phone] Encounter Details Date Type Department Care Team Description 10/12/2019 Hospital Encounter Department of [place], Shortnes s Of Breath; Radiology in [facility] [address], Fatigue; [place], [place] [facility], P.A. Cough [address] [place] [phone] Social History Tobacco Use Types Packs/Day Years [...] mouth. vitamin Take 1 tablet by 0 A,C,B-poexyv-gtnncvsf mouth daily. (OCUVITE W/LUTEIN) 1,000 Unit-200 mg-60 Unit-2 mg tablet albuterol 90 Inhale 2 puffs every 0 10/30/2016 mcg/actuation inhaler 4 (four) hours as needed. cyanocobalamin (vitamin Take 100 mcg by 0 03/04/2020 B-12) 100 mcg tablet mouth daily. fluticasone (for_FLONASE) Administer 2 sprays 16 g 0 0 07/08/2017 11/13/2019 50 mcg/actuation nasal into each nostril spray daily. SUMAtriptan (IMITREX) 25 TAKE 1 TABLET BY 9 tablet 5 06/0311/13/2019 mg tablet MOUTH FOR 1 DOSE NEEDED FOR MIGRAINE. MAY REPEAT AFTER 1 HOUR IF NEEDED documented as of this encounter Plan of Treatment Not on filedocumented as of this encounter Procedures Procedure Name Priority Date/Time Associated Comments Diagnosis DX CHEST 1 VIEW RAD - Routine 10/12/2019 3:39 Shortness Of Results for this (most inpatients PM CDT Breath procedure are in and all Fatigue the results outpatients) Cough section. documented in this encounter Results DX Chest 1 View (10/12/2019 3:39 PM CDT) Anatomical Region Laterality Modality Chest, Thoracic RST LOS, Thoracic ARZ LOS, Thoracic N/A Digital Radiography FLA LOS Specimen (Source) Anatomical Collection Method Collection Time Re ceived Time Location / / Volume Laterality 10/12/2019 3:46 PM CDT Impressions 10/12/2019 3:47 PM CDT No acute radiographic abnormality. Narrative 10/12/2019 3:47 PM CDT EXAM: DX CHEST 1 VIEW COMPARISON: 07/18/2008 FINDINGS: Cardiomediastinal silhouette a nd pulmonary vasculature are within normal limits. No acute airspace opacity , pleural effusion, or pneumothorax. No acute finding in the bones or upper abdo men. Scoliosis. Spondylosis. Procedure Note Dawson Xiong M.D. - 10/12/2019Formattin g of this note might be different from the original. EXAM: DX CHEST 1 VIEW COMPARISON: 07/18/2008 FINDINGS: Cardiomediastinal silhouette a nd pulmonary vasculature are within normal limits. No acute airspace opacity , pleural effusion, or pneumothorax. No acute finding in the bones or upper abdo men. Scoliosis. Spondylosis. IMPRESSION: No acute radiographic abnormality. Mitch Trivedi P.A.-C., P.A. 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 PCP - General Family Medicine 10/11/19 [address] [place] [phone] documented as of this encounter
--- OUTSIDE RECORDS SUMMARY | 2022-02-13 09:16 | XMS_ITS | Encounter Summary ---
:1945 Author Organization [facility] Address [address] [place] [address] Care Team Providers Name Role Phone Luisa Roy M.D. Primary Care Provider [phone] Encounter Details Date Type Department Care Team Description 09/04/2019 Orders Only RST PCP HLTH MNT Maliha Licea ening Mammogram Breast Luisa guevara M.D. 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 PCP - General 10/01/16 10/10/19 [address], [place] [phone] documented as of this encounter
--- OUTSIDE RECORDS SUMMARY | 2022-02-13 09:16 | XMS_ITS | Encounter Summary ---
:1945 Author Organization [facility] Address [address] [place] [address] Care Team Providers Name Role Phone Tigre Preciado P.A.-C. Primary Care Provider [phone] Encounter Details Date Type Department Care Team Description 01/16/2020 Hospital Encounter Department of Dorita Preciado Laboratory Medicine Juan Landeros Screening For Other in [address] Viral Diseases [place], [place] (COVID-19) [address] [address] [place], [place] [phone] (Work) [phone] Social History Tobacco Use Types Packs/Day Years [...] Dispensed Refills Start Date End Date calcium Chew 1 tablet. 0 11/07/2009 carbonate-vitamin D3 1,250 mg (500 mg calcium)-400 unit per chewable tablet CRANBERRY FRUIT EXTRACT cranberry oral tablet 0 0 08/13/2016 (CRANBERRY ORAL) PRN: Urinary discomfort LACTOBACILLUS Take by mouth daily. 0 10/05/2012 ACIDOPHILUS (ACIDOPHILUS ORAL) magnesium 200 mg tablet Take 400 mg by mouth 0 daily. multivitamin tablet Take 1 tablet by 0 06/28/2009 mouth. vitamin Take 1 tablet by 0 A,C,Z-dbnxch-xkqacwyt mouth daily. (OCUVITE W/LUTEIN) 1,000 Unit-200 mg-60 Unit-2 mg tablet albuterol 90 Inhale 2 puffs every 0 10/30/2016 mcg/actuation inhaler 4 (four) hours as needed. cyanocobalamin (vitamin Take 100 mcg by mouth 0 03/04/2020 B-12) 100 mcg tablet daily. miconazole (MICATIN) 2 % Apply 1 application 28.35 g 0 02/21/2020 creamIndications: topically 2 (two) Cheilitis Angular times a day. SUMAtriptan (IMITREX) 25 Take 1 tablet (25 mg 9 tablet 5 0 11/13/2019 05/29/2021 mg tablet total) by mouth as needed for migraine. May repeat dose once in 2 hours if migraine unresolved. documented as of this encounter Plan of Treatment Not on filedocumented as of this encounter Procedures Procedure Name Priority Date/Time Associated Diagnosis Comme nts SARS CORONAVIRUS-2 Routine 01/16/2020 1:19 PM Encounter For Re sults for this RNA, V CDT Screening For Other procedur e are in Viral Diseases the results (COVID-19) section. SARS-COV-2 TOTAL Routine 01/16/2020 12:59 PM Encounter For Res ults for this ANTIBODY, SERUM CDT Screening For Other proce dure are in Viral Diseases the results (COVID-19) section. documented in this encounter Results SARS Coronavirus-2 RNA, V Asymptomatic (01/16/2020 1:19 PM CDT) [facility] Method Time Signature SARS-CoV-2 Swab, 01/17/2020 MKTO Specimen Nasopharynx 2:22 AM CDT Source SARS CoV-2 Undetected Undetected 01/17/2020 MKTO RNA, TMA 2:22 AM CDT Comment: SARS-CoV-2 RNA absent. This result does not rule out COVID-19 in the patient, as the sensitivity of the test depends o n the timing of the specimen collection and the quality of the specim en. Result should be correlated with patient's history and clinical presentat ion. ----ADDITIONAL INFORMATION---- This test is performed using the Aptima SARS-CoV-2 assay ([employer] which has received Emergency Use Authori zation (EUA) by the U.S. Food and Drug Administration. Fact sheets for this Emergency Use Autho rization (EUA) assay can be found at the following links: For Healthcare Providers: https://www.fd a.gov/media/761282/download For Patients: https://www.fda.gov/media/ 608431/download Specimen Anatomical Collection Method Collection Time Receive d Time (Source) Location / / Volume Laterality Varies 01/16/2020 1:19 PM 0 7:36 (Nasopharynx) CDT PM CDT Tigre Preciado P.A.-C. LAB MICROBIOLOGY - GENERAL O RDERABLES Performing Organization Address City/State/ZIP Code Phon e Number [facility]- [address] [place] [id number] [place] [address] System [address] SARS-CoV-2 Total Antibody, Serum (01/16/2020 12:59 PM CDT) [facility] gist Method Time Signature SARS-CoV-2 Negative Negative 01/16/2020 [facility] Nucleocapsid 7:59 PM CDT Total Ab, S Comment: No antibodies to SARS-CoV-2 detected. Ne gative results may occur in serum collected too soon fo llowing infection or in immunosuppressed patients. Follow- up testing with a molecular test is recommended in symptom atic patients. This test should not be used to exclude activ e/recent COVID-19. ----ADDITIONAL INFORMATION---- Testing was performed using the [employer] [id number]-2 Reagent assay from [employer], which has received Emergency Use Authori zation(EUA) by the U.S. Food and Drug Administration . Fact sheets for this Emergency Use Autho rization (EUA) assay can be found at the following link s: For Healthcare Providers: https://www.fda.gov/media/412350/downloa d For Patients: https://www.fda.gov/media/022992/downloa d Specimen Anatomical Collection Method Collection Time Receive d Time (Source) Location / / Volume Laterality Blood (Blood, 01/16/2020 12:59 01/16/2020 7:31 Venous) PM CDT PM CDT Tigre Preciado P.A.-C. 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 PCP - General Family Medicine 10/11/19 [address] [place] [address] documented as of this encounter
--- OUTSIDE RECORDS SUMMARY | 2022-02-13 09:16 | XMS_ITS | Encounter Summary ---
:1945 Author Organization [facility] Address [address] [place] [address] Care Team Providers Name Role Phone Tigre Preciado P.A.-C. 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 PCP - General Family Medicine 10/11/19 [address] [place] [phone] documented as of this encounter
--- OUTSIDE RECORDS SUMMARY | 2022-02-13 09:16 | XMS_ITS | Encounter Summary ---
:1945 Author Organization [facility] Address [address] [place] [address] Care Team Providers Name Role Phone Tigre Preciado P.A.-C. Primary Care Provider [phone] Reason for Visit Reason Comments Colonoscopy Date Encounter Details Date Type Department Care Team Description 11/13/2019 Clinical Communication Department of Gal Stout Co lonoscopy Date General Surgery in [place], [place] [address] [place] [phone] Social History Tobacco Use [...] this encounter Miscellaneous Notes Telephone Encounter - Tameka Rodriguez - 11/13/2019 3:06 PM CDT PHYSICIAN: Girish REASON FOR CALL: Preop 01/12/20 Tigre Preciado S: SURG DATE: 01/19/2020 Colonoscopy Girish B: REQUEST FOR SURG: OW BRIDGETT A: ANESTHESIA: R: HOSP WILL CALL WITH TIME COVID Lab and Swab scheduled for 01/16/2020 documented in this encounter Plan of Treatment Not on filedocumented as of this encounter Visit Diagnoses Not on filedocumented in this encounter Additional Health Concerns Assessment Noted Time PHQ-9 Depression Total Score: 1 06/02/2017 9: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 PCP - General Family Medicine 10/11/[address] [place] [phone] documented as of this encounter
--- OUTSIDE RECORDS SUMMARY | 2022-02-13 09:16 | XMS_ITS | Encounter Summary ---
:1945 Author Organization [facility] Address [address] [place] [address] Care Team Providers Name Role Phone Tigre PreciadoAElda-CElda Primary Care Provider [phone] Reason for Visit Reason Comments Bladder Prolapse Outpatient (Routine) - Closed Specialty Diagnoses / Procedures Referred By Contact Refer red To Contact Obstetrics and Diagnoses Cystocele Tigre Preciado [facility] [address] [place] [address] Referral ID Status Reason Start Date Expiration Date Visits Requ ested Visits Authorized [id number] Closed 11/13/2019 11/12/2020 1 1 Encounter Details Date Type Department Care Team Description 11/30/2019 Comprehensive Visit Department of Nivia Trujillo (Primary Dx); Obstetrics and J, SENIOR ANALYSIS SPECIALIST, C.N.P. Pap Smear Examination; Gynecology in [address] [facility] [phone] [place] [address] [place], [place] (Work) [phone] Social History Tobacco Use Types [...] Sign Reading Time Taken Comments Blood Pressure 92/62 11/30/2019 2:22 PM CDT Pulse - - Temperature - - Respiratory Rate - - Oxygen Saturation - - Inhaled Oxygen Concentration - - Weight 56.5 kg (124 lb 9 oz) 11/30/2019 2:22 PM CDT Height - - Body Mass Index 22.07 11/13/2019 12:47 PM CDT documented in this encounter Progress Notes Nivia Trujillo, ORION, C.N.P. - 11/30/2019 2:30 PM CDT SUBJECTIVE CHIEF COMPLAINT / REASON FOR VISIT Chief Complaint Patient presents with ??? Bladder Prolapse HISTORY OF PRESENT ILLNESS Isadora is a 74 y.o. . No LMP recorded (lmp unknown). Patient is postmenopausal. She presents with concerns surrounding Bladder Prolapse. Became menopausal at the age of 57. Reproductive organs areintact. She has not used any hormone replacement therapy. Denies any postmenopausal bleeding. Notes that she 1st noticed her cystocele a few years ago, but feels that it has progressively worsened overthe last year. She describes occasional shooting pains in the urethra intermittently, but no pains recently. In regard to her bladder function she states that she occasionally has to sit for prolonged period of time to completely empty her bladder. She does double void on occasion. States that she will occasionally manually reduce her cystocele to help with bladder emptying. She denies any urgency, frequency, or incontinence. She does have history of a tendency towards constipation. States that if she takes her magnesium on a daily basis, her bowel movements are soft, firm, and regular. She really has no concerns surrounding her bowels at this time. Admits that in the past when she has been constipated she will strain to eliminate her stool. She is not sexually active. She is requesting a Pap smear. She has no history of abnormal Pap smears. Her most recent Pap smear was performed 04/14/2013 and indicated in adequate endocervical/transformation zone component, negative for intraepithelial lesion or malignancy, and negative for high-risk Human Papilloma Virus. We did spend time discussing recommendations surrounding Pap smear screening, which recommends discontinuation of Pap smears at the age of 65. Patient states that she does not feelcomfortable with that and would like to proceed with Pap smear today. Her only other concern for me today is surrounding some redness, dryness and cracking at the cornersof her mouth. States that she has tried an [id number] antibiotic cream, a Lotrimin cream, and a herpes cream and did not experience improvement of her symptoms with any of these products. She is i nterested in a prescription to help treat these symptoms. REVIEW OF SYSTEMS Skin: Positive for skin rash. Genitourinary: Positive for difficulty urinating. The following systems were negative: Constitutional, Eyes, ENT, CV, Respiratory, GI, Hematologic, Musculoskeletal, Neuro, Psych The patient's allergies, current medications, problem list, social history and family history were reviewed and updated as appropriate. OBJECTIVE BP 92/62 Wt 56.5 kg LMP (LMP Unknown) BMI 22.07 kg/m?? PHYSICAL EXAM General: She is a well-appearing female, in no acute distress. Mental: Alert and oriented x3. Affect pleasant. Mood happy. SKIN: Warm, dry and pink. No rashes, lesions or bruising. HEENT: Vision and hearing grossly intact. Lymph Nodes: No inguinal lymphadenopathy. No masses or tenderness. Abdomen: Soft, nontender, nondistended. No masses palpable. Pelvis: External genitalia appears healthy and normal. BUS is negative. Negative cough stress test. Urethral hypermobility is present. Prolapse is apparent at rest. Upon speculum exam vaginal mucosa appears atrophic and intact. Cervix is present and cervical os is noted to be stenosed. Thin prep Pap smear was obtained nonetheless. Upon split speculum exam findings include: Grade 2-3 cystocele, minimal uterine descent, and apparent adequate posterior support. Pelvic floor muscle strength is moderate.No pelvic floor tension myalgia noted. Upon bimanual exam there is no cervical motion tenderness, uterus is small mobile and nontender. Adnexa is not palpable, and is without masses or tenderness. Rectovaginal confirms bimanual exam. Bag Loader Machine Operator: Bag Loader Machine Operator for pelvic exam or qualifying procedure: Iman Hackett L.P.N. DIAGNOSTICS Thin prep Pap smear obtained and pending. ASSESSMENT / PLAN #1 Cystocele Overview: Grade 2-3 cystocele present. Prefers to manage with referral to [facility] and accupuncture at this time. Assessment & Plan: Referral to [facility] was completed in faxed. 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 We also discussed management options with vaginal estrogen therapy, pessary, or surgical intervention. She is not interested in these options at this time. I recommend she follow up as needed in thefuture. Orders: - Obstetrics and Gynecology - Urogynecology consult (clinic) #2 Pap Smear Examination - ThinPrep w/HPV Co-Test Screen #3 Cheilitis Angular Overview: Prescription for miconazole 2% ointment was faxed to her pharmacy and she will apply 2 times daily for up to 30 days. If symptoms do not improve I recommend she follow up with her primary care provideror contact me. At this point she has no additional concerns or questions and is agreeable to this plan of care. Other orders - HPV with Genotyping, PCR, ThinPrep - miconazole nitrate (DERMAFUNGAL) 2 % ointment; Apply 1 application topically 2 (two) times a day.,Starting Wed12/01/2019, Normal I will plan to send her a letter with her Pap smear results. If Pap smear is normal, she no longer needs to have Pap smears obtained going forward, based on the current guidelines. All questions have been answered and those present are in agreement with this plan. Nivia Trujillo APRN, C.N.P. Patient Education Ready to learn, no apparent learning barriers were identified; learning preferences include listening. Explained diagnosis and treatment plan; patient expressed understanding of the content. documented in this encounter Miscellaneous Notes Assessment & Plan Note - Nivia Trujillo APRN, C.N.P. - 12/01/2019 8:32 AM CDTAssociated Problem(s): Cystocele Referral to [facility] was completed in faxed. 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 We also discussed management options with vaginal estrogen therapy, pessary, or surgical intervention. She is not interested in these options at this time. I recommend she follow up as needed in thefuture. documented in this encounter Plan of Treatment Not on filedocumented as of this encounter Procedures Procedure Name Priority Date/Time Associated Diagnosis Comme nts THINPREP W/HPV Routine 11/30/2019 3:29 PM Pap Smear Results for this CO-TEST SCREEN CDT Examination procedure are in the results section. HPV WITH Routine 11/30/2019 3:29 PM Results f or this GENOTYPING, PCR, CDT procedure a re in THINPREP the results section. documented in this encounter Results HPV with Genotyping, PCR, ThinPrep (11/30/2019 3:29 PM CDT) P athologist Signature HPV with Negative Negative 12/01/2019 [facility] Genotyping, 1:42 PM CDT ThinPrep, PCR Comment: Negative for high risk HPV by nucleic ac id amplification. ??The following high risk HPV types were not detected: 16, 18, 31, 33, 35, 39, 45, 51, 52, 56, 58, 59, 66, and 68 Specimen Anatomical Collection Method Collection Time Receive d Time (Source) Location / / Volume Laterality Varies 11/30/2019 3:29 PM 0 6:58 CDT AM CDT Tae Stein APRNN.P. LAB MICROBIOLOGY - GENE RAL ORDERABLES Performing Organization Address City/State/ZIP Code Phon e Number [facility] [place] [address] [facility] [place] [address] System in [place] [address] [place] [address] ThinPrep w/HPV Co-Test Screen (11/30/2019 3:29 PM CDT) Component Value Ref Test Analysis Performed Pathologis t Range Method Time At Signature 12/04/2019 [facility] 2:01 PM CDT Report RHONA Grullon(ASCP) 12/04/2019 [facility] electronically I verify that I have examined all relevant slides/ma terials 2:01 PM signed by for the specimen(s) and rendered or confirmed the diagnosis. CDT Gross Description Received specimen 12/04/2019 [facility] in a ThinPrep 2:01 PM vial. CDT Pap Test Source Cervical/Endocervi 12/04/2019 [facility] rocio 2:01 PM CDT Clinical History screen 12/04/2019 [facility] 2:01 PM CDT Menstrual pm 12/04/2019 [facility] Status(LMP, PM, 2:01 PM ) CDT Hormone None/Not known 12/04/2019 [facility] Therapy/Contracep 2:01 PM tives CDT Interpretation Cervical/Endocervical ??(ThinPrep): 12/04/2019 [facility] Satisfactory for Evaluation 2:01 PM Negative for Intraepithelial Lesion or Malignancy CDT High Risk HPV: ??Negative Negative for High Risk HPV by nucleic acid amplification. The following High Risk HPV types were not detected: 16, 18, 31, 33, 35, 39, 45, 51, 52, 56, 58, 59, 66, and 68. Specimen Anatomical Collection Method Collection Time Receive d Time (Source) Location / / Volume Laterality Varies 11/30/2019 3:29 PM 0 6:58 (Cervix/Endocerv CDT AM CDT ix) Narrative This result has an attachment that is no t available. iNvia Trujillo APRN, C.N.P. LAB PAP PATHDX ORDERABL ES Performing Organization Address City/State/ZIP Code Phon e Number 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 PCP - General Family Medicine 10/11/19 [address] [place] [address] documented as of this encounter
--- OUTSIDE RECORDS SUMMARY | 2022-02-13 09:16 | XMS_ITS | Encounter Summary ---
:1945 Author Organization [facility] Address [address] [place] [address] Care Team Providers Name Role Phone Tigre Preciado P.A.-C. Primary Care Provider [phone] Reason for Referral Outpatient (Routine) - Closed Specialty Diagnoses / Procedures Referred By Contact Refer red To Contact Diagnoses Shortness Of Breath Fatigue Mitch Trivedi [facility] Procedures ECG 12 Lead P.Vy.Chery., P.A. [address] [place] [phone] Referral ID Status Reason Start Date Expiration Date Visits Requ ested Visits Authorized [id number] Closed 10/12/2019 10/11/2020 1 1 Reason for Visit Reason Comments Shortness of Breath x 2-3 days - had a spell lik e this a few weeks ago Fatigue Outpatient (Routine) - Closed Specialty Diagnoses / Procedures Referred By Contact Refer red To Contact Diagnoses Shortness Of Breath Fatigue Cough Unspecified Type Nikkie Singletary APRN, [facility] [place] [facility] C.N.P. [address] [place] [address] [phone] Referral ID Status Reason Start Date Expiration Date Visits Requ ested Visits Authorized [id number] Closed 10/11/2019 10/10/2020 1 1 Encounter Details Date Type Department Care Team Description 10/12/2019 Office Visit Urgent Care in Nikkie Singletary APRN, C.N.P. [address] [place] [phone] Elevated Blood Pressure (Primary Dx); [place], [place] Mitch Trivedi P.A.-C., P.A. [address] [place] [phone] Shortness Of Breath; [address] Fatigue; [place] [phone] Social History Tobacco Use Types Packs/Day [...] Sign Reading Time Taken Comments Blood Pressure 156/105 10/12/2019 2:25 PM CDT Pulse 102 10/12/2019 2:25 PM CDT Temperature 36.7 ??C (98.1 ??F) 10/12/2019 2:25 PM CDT Respiratory Rate - - Oxygen Saturation 97% 10/12/2019 2:25 PM CDT Inhaled Oxygen Concentration - - Weight - - Height - - Body Mass Index - - documented in this encounter Progress Notes Mitch Trivedi P.A.-C., Noel.Vielka - 10/12/2019 2:30 PM CDT SUBJECTIVE CHIEF COMPLAINT / REASON FOR VISIT Isadora Back is a 74 y.o. female who presents for evaluation of Shortness of Breath (x 2-3 days - had a spell like this a few weeks ago ) and Fatigue. HISTORY OF PRESENT ILLNESS Patient is a pleasant well-appearing 72-year-old female presenting clinic today with concerns for fatigue, shortness of breath, leg weakness. Shares that a couple days ago she had a spell similar to what she had a few weeks ago which included the shortness of breath and fatigue. Slight lightheadedness. Currently with what she describes an extremely minor headache. She does admit to having headaches frequently in the morning due to neck pain. She has not scheduled physical therapy appointment that she feels would be beneficial which she has used in the past. Denies any fever or chills. No sore throat, earache, or worse headache ever. Denies any chest pain. Admits to a cough which is producing some mucus but relates this to chronic sinus drainage for the last several months unchanged. No abdominal pain, nausea, vomiting, diarrhea. No urinary symptoms including urgency, frequency, dysuria, burning.Normal bowel habits. He does admit to being bit by some sort of insect or bug a few weeks ago just prior to symptoms beginning which was quite bloody. She did have increased swelling and mild the pruritus with this. She is uncertain what did bit her but denies any known tick bites. She has been outside and her has been bitten by a tick and has been treated with antibiotics recently. The likely this is increased but she does admit to having neuropathy. Overall, the patient shares that her symp toms have improved considerably just beginning this afternoon. She occasionally does take aspirin and Advil which also did seem to help. Again, the initial episode was a few weeks ago and seem to resolve and most recent was a couple of days ago with mood very recent improvement of symptoms. She deniesany changes in vision, logic, thinking. Denies any history of bleeding or clotting disorders. Patient does share with me that her younger sister has an unknown heart condition but does have a pacemakerand her symptoms did begin with shortness of breath. This is of concern for the patient herself as her biggest concern is the shortness of breath. Was screen and recently tested for COVID and returned n egative. Patient was unaware of this result as it looks to be resulted just prior to today's appointment. Denies any recent travel or or otherwise ill contacts. The following portions of the patient's history were reviewed and updated as appropriate: allergies,current medications, family history, medical history, social history, surgical history and problem list. REVIEW OF SYSTEMS All other systems reviewed and are negative. OBJECTIVE BP (!) 156/105 (BP Location: Right arm, Patient Position: Sitting, Cuff Size: Regular) Pulse 102 Temp 36.7 ??C LMP (LMP Unknown) SpO2 97% No PHYSICAL EXAM Vitals signs and nursing note reviewed. Constitutional General: She is not in acute distress. Appearance: Normal appearance. She is not ill-appearing, toxic-appearing or diaphoretic. HENT Head: Normocephalic and atraumatic. Right Ear: Tympanic membrane, ear canal and external ear normal. Left Ear: Tympanic membrane, ear canal and external ear normal. Nose: Nose normal. Mouth/Throat: Mouth: Mucous membranes are moist. Pharynx: Oropharynx is clear. Eyes Conjunctiva/sclera: Conjunctivae normal. Neck Musculoskeletal: Normal range of motion and neck supple. Thyroid: No thyroid mass or thyromegaly. Trachea: Trachea normal. Cardiovascular Rate and Rhythm: Normal rate and regular rhythm. Heart sounds: Normal heart sounds. No murmur. No friction rub. No gallop. Pulmonary Effort: Pulmonary effort is normal. Breath sounds: Normal breath sounds. No wheezing, rhonchi or rales. Abdominal General: Bowel sounds are normal. Palpations: Abdomen is soft. There is no mass. Tenderness: There is no abdominal tenderness. Musculoskeletal Normal range of motion. Comments: Normal strength upper and lower extremity myotomes bilaterally. Lymphadenopathy Cervical: No cervical adenopathy. Skin General: Skin is warm and dry. Comments: Tiny area for probable insect bite the midline posterior neck region approximately C6. Slightly tender and very minimal erythema. No induration or fluctuance. No distinct borders or target type lesions. No streaking no drainage or discharge. Neurological General: No focal deficit present. Mental Status: She is alert and oriented to person, place, and time. Cranial Nerves: No cranial nerve deficit ( 2 through 12 intact.). Sensory: No sensory deficit (Normal sensation light touch upper and lower extremity dermatomes bilaterally.). Motor: No weakness. Gait: Gait normal. Deep Tendon Reflexes: Reflexes normal. Psychiatric Mood and Affect: Mood normal. Thought Content: Thought content normal. Judgment: Judgment normal. Diagnostics Results for orders placed or performed in visit on 10/12/19 CBC with Differential, Blood Result Value Ref Range Hemoglobin 13.9 11.6 - 15.0 g/dL Hematocrit 40.2 35.5 - 44.9 % Erythrocytes 4.44 3.92 - 5.13 x10(12)/L MCV 90.5 78.2 - 97.9 fL RBC Distrib Width 12.8 12.2 - 16.1 % Platelet Count 390 (H) 157 - 371 x10(9)/L Leukocytes 8.8 3.4 - 9.6 x10(9)/L Neutrophils 5.79 1.56 - 6.45 x10(9)/L Lymphocytes 2.17 0.95 - 3.07 x10(9)/L Monocytes 0.68 0.26 - 0.81 x10(9)/L Eosinophils 0.10 0.03 - 0.48 x10(9)/L Basophils 0.06 0.01 - 0.08 x10(9)/L Urinalysis with Microscopic if Indicated Result Value Ref Range Source Midstream Clarity Clear Clear Color Yellow Blood Negative Negative Nitrite Negative Negative Leukocyte Esterase Small (A) Negative Protein Negative mg/dL Glucose Negative Negative mg/dL Ketone Negative Negative mg/dL Bilirubin Negative Negative pH 6.5 5.0 - 8.0 Specific Mcclave 1.005 1.001 - 1.035 Urobilinogen 0.2 0.2 - 1.0 Comprehensive Metabolic Panel Result Value Ref Range Potassium, P 4.3 3.6 - 5.2 mmol/L Sodium, P 132 (L) 135 - 145 mmol/L Chloride, P 95 (L) 98 - 107 mmol/L Bicarbonate, P 23 22 - 29 mmol/L Anion Gap, P 14 7 - 15 BUN, P 10 6 - 21 mg/dL Creatinine, P 0.83 0.59 - 1.04 mg/dL eGFR Black 81 >=60 mL/min/BSA eGFR Non-Black 71 >=60 mL/min/BSA Calcium, Total, P 9.8 8.8 - 10.2 mg/dL Glucose, P 98 70 - 140 mg/dL Protein, Total, P 7.6 6.3 - 7.9 g/dL Albumin, P 4.6 3.5 - 5.0 g/dL Aspartate Aminotransferase (AST), P 26 8 - 43 U/L Alkaline Phosphatase, P 96 35 - 104 U/L Alanine Aminotransferase (ALT), P 16 7 - 45 U/L Bilirubin, Total, P 0.4 <=1.2 mg/dL Microscopic Automated Result Value Ref Range White Blood Cells None Seen /hpf Red Blood Cells None Seen 0 - 2 /hpf Squamous Cells Occ-3 /hpf ECG 12 Lead Result Value Ref Range Ventricular Rate ECG/Min 75 BPM AK Interval 154 ms QRSD Interval 90 ms QT Interval 388 ms QTC Interval 433 ms P [employer] 48 degrees R [employer] 14 degrees T Wave [employer] 23 degrees IMPRESSION: Normal sinus rhythm Nonspecific ST and T wave abnormality No previous ECGs available Dx Chest 1 View Result Date: 10/12/2019 Impression: No acute radiographic abnormality. ASSESSMENT / PLAN #1 Shortness Of Breath Shared with the patient that exam is quite unremarkable with normal EKG and imaging. No signs and other labs to indicated reason for shortness of breath. Oxygen saturation is normal. With the shortnessof breath seems to be improving will continue to monitor. #2 Fatigue No clear-cut explanation for fatigue but again will continue to monitor as symptoms seem to be improving. Did share with her that she does have slight decrease in sodium and chloride. Very minor but may be contributory. I would increase sodium intake and follow up primary care provider. Red flags thatwould indicate a need for immediate attention emergency department or calling 911 were discussed. #3 Cough Seems to be a more chronic problem associated with postnasal drainage and sinus drainage. Will continue oral her at home management. #4 Elevated Blood Pressure Shared concerns for elevated blood pressure. Failed to get repeat blood pressure in clinic. Did advise monitoring blood pressure at home and when out about. Blood pressure should be less than 140/90 consistently if not follow up primary care provider. She is aware red flags that would would indicate aneed for immediate attention emergency department or by calling 911. Other orders - [facility] Visit - ECG 12 Lead - DX Chest 1 View; Future; Expected date: 10/12/2019 - CBC with Differential, Blood - Urinalysis with Microscopic if Indicated - Comprehensive Metabolic Panel - Tick-Borne Ab Panel - Microscopic Automated Tick-borne panel pending. If need for treatment change be notified and treated accordingly. If symptoms worsen or do not improve, they are to seek further medical attention. Patient's questions were answered. They voiced understanding and agree to this plan. Mitch Trivedi PA-C documented in this encounter Plan of Treatment Not on filedocumented as of this encounter Procedures Procedure Name Priority Date/Time Associated Comments Diagnosis TICK-BORNE AB PANEL STAT 10/12/2019 3:47 PM Shortness Of Breath Results for this CDT Fatigue procedure are i n the results section. CBC WITH DIFFERENTIAL, STAT 10/12/2019 3:47 PM Shortn ess Of Breath Results for this B CDT Fatigue procedure are i n the results section. COMPREHENSIVE STAT 10/12/2019 3:47 PM Shortness Of Breath Results for this METABOLIC PANEL, S/P CDT Fatigue procedu re are in the results section. ECG Routine 10/12/2019 3:38 PM Shortness Of Breath Results for this CDT Fatigue procedure are i n the results section. URINALYSIS WITH STAT 10/12/2019 2:58 PM Shortness Of Breath Results for this MICROSCOPIC IF CDT Fatigue procedure are in INDICATED, U the results section. AK URINALYSIS AUTO WO STAT 10/12/2019 2:58 PM Results for this MICRO CDT procedure are i n the results section. documented in this encounter Results Tick-Borne Ab Panel (10/12/2019 3:47 PM CDT) athologist Signature Lyme Disease Negative Negative 10/13/2019 [facility] Serology, S 3:06 PM CDT Comment: No evidence of antibodies to B. burgdorf jennifer detected. False negative results may occur in rece ntly infected patients (<=2 weeks) due to low or undet ectable antibody levels to B. burgdorferi. If recent expo sure is suspected, a second sample should be collected and tested in 2-4 weeks. Anaplasma phagocytophilum Ab, IgG,S <1:64 <1:64 titer 10/13/2019 3:22 PM CDT [facility] Comment: ----ADDITIONAL INFORMATION---- This test was developed using an analyte specific reagent. Its performance characteristics were determined by [facility] in a manner consistent with CLIA requirements. This test has not bee n cleared or approved by the U.S. Food and Drug Administration. Ehrlichia Chaffeensis ([facility]) Ab, IgG <1:64 <1:64 titer 10/13/2019 3:21 PM CDT [facility] Comment: ----ADDITIONAL INFORMATION---- This test was developed using an analyte specific reagent. Its performance characteristics were determined by [facility] in a manner consistent with CLIA requirements. This test has not bee n cleared or approved by the U.S. Food and Drug Administration. Babesia microti IgG Ab, S <1:64 <1:64 titer 10/13/2019 3 :20 PM CDT [facility] Comment: ----ADDITIONAL INFORMATION---- This test was developed using an analyte specific reagent. Its performance characteristics were determined by [facility] in a manner consistent with CLIA requirements. This test has not bee n cleared or approved by the U.S. Food and Drug Administration. Specimen Anatomical Collection Method Collection Time Receive d Time (Source) Location / / Volume Laterality Blood (Blood, 10/12/2019 3:47 PM 10/13/19 7:08 Venous) CDT AM CDT Mitch Trivedi P.A.-C., P.A. LAB MICROBIOLOGY - BL OOD ORDERABLES Performing Organization Address City/State/ZIP Code Phon e Number [facility] [address] [place], [place] [address] [place] [address] [place] [address] Laboratory Medicine and Pathology [address] CADET (ABNORMAL) Comprehensive Metabolic Panel (10/12/2019 3:47 PM CDT) P athologist Signature Potassium, P 4.3 3.6 - 5.2 10/12/2019 [place] mmol/L 4:33 PM CDT Sodium, P 132 (L) 135 - 145 10/12/2019 [facility] mmol/L 4:33 PM CDT Chloride, P 95 (L) 98 - 107 10/12/2019 [place] mmol/L 4:33 PM CDT Bicarbonate, P 23 22 - 29 10/12/2019 [place] mmol/L 4:33 PM CDT Anion Gap, P 14 7 - 15 10/12/2019 [facility] 4:33 PM CDT BUN (Blood Urea 10 6 - 21 10/12/2019 [facility] Nitrogen), P mg/dL 4:33 PM CDT Creatinine 0.83 0.59 - 10/12/2019 [facility] 1.04 mg/dL 4:33 PM CDT eGFR-Black/Afri 81 >=60 10/12/2019 [facility] can [place] mL/min/BSA 4:33 PM CDT Comment: ----ADDITIONAL INFORMATION---- Estimated GFR calculated using the 2009 CKD_EPI creatinine equation. eGFR Non-Black/ 71 >=60 mL/min/BSA 4:33 PM CDT [facility] Comment: ----ADDITIONAL INFORMATION---- Estimated GFR calculated using the 2009 CKD_EPI creatinine equation. Calcium, Total, P 9.8 8.8 - 10.2 mg/dL 10/12/2019 4:33 PM CDT [facility] Glucose, P 98 70 - 140 mg/dL 10/12/2019 4:33 PM CDT O DAISY Protein, Total, P 7.6 6.3 - 7.9 g/dL 10/12/2019 4:33 P M CDT [facility] Albumin, P 4.6 3.5 - 5.0 g/dL 10/12/2019 4:33 PM CDT O DAISY Aspartate Aminotransferase 26 8 - 43 U/L 10/12/2019 4 :33 PM CDT [facility] (AST), P Alkaline Phosphatase, P 96 35 - 104 U/L 10/12/2019 4: 33 PM CDT [facility] Alanine Aminotransferase (ALT), 16 7 - 45 U/L 020 4:33 PM CDT [facility] P Bilirubin, Total, P 0.4 <=1.2 mg/dL 10/12/2019 4:33 PM CDT [facility] Specimen Anatomical Collection Method Collection Time Receive d Time (Source) Location / / Volume Laterality Blood (Blood, 10/12/2019 3:47 PM 10/12/19 20 4:02 Venous) CDT PM CDT Mitch Trivedi P.A.-C., P.A. LAB BLOOD ADD-ON Performing Organization Address City/State/ZIP Code Phon e Number [facility] [address] [place] [address] [place] [address] System in [place] [address] (ABNORMAL) CBC with Differential, Blood (10/12/2019 3:47 PM CDT) [facility] gist Method Time Signature Hemoglobin 13.9 11.6 - 10/12/2019 [facility] 15.0 g/dL 4:12 PM CDT Hematocrit 40.2 35.5 - 10/12/2019 [facility] 44.9 % 4:12 PM CDT Erythrocytes 4.44 3.92 - 10/12/2019 [place] 5.13 4:12 PM CDT x10(12)/L MCV 90.5 78.2 - 10/12/2019 [facility] 97.9 fL 4:12 PM CDT RBC Distrib Width 12.8 12.2 - 10/12/2019 [facility] 16.1 % 4:12 PM CDT Platelet Count 390 (H) 157 - 371 10/12/2019 [facility] x10(9)/L 4:12 PM CDT Leukocytes 8.8 3.4 - 9.6 10/12/2019 [place] x10(9)/L 4:12 PM CDT Neutrophils 5.79 1.56 - 10/12/2019 [facility] 6.45 4:12 PM CDT x10(9)/L Lymphocytes 2.17 0.95 - 10/12/2019 [place] 3.07 4:12 PM CDT x10(9)/L Monocytes 0.68 0.26 - 10/12/2019 [facility] 0.81 4:12 PM CDT x10(9)/L Eosinophils 0.10 0.03 - 10/12/2019 [place] 0.48 4:12 PM CDT x10(9)/L Basophils 0.06 0.01 - 10/12/2019 [place] 0.08 4:12 PM CDT x10(9)/L Specimen Anatomical Collection Method Collection Time Receive d Time (Source) Location / / Volume Laterality Blood (Blood, 10/12/2019 3:47 PM 10/12/19 20 4:02 Venous) CDT PM CDT Mitch Trivedi P.A.-C., P.A. LAB BLOOD ADD-ON Performing Organization Address City/State/ZIP Code Phon e Number [facility] [address] [place] [address] [facility] [place] [address] System in [place] [address] DX Chest 1 View (10/12/2019 3:39 PM [...] Spondylosis. IMPRESSION: No acute radiographic abnormality. Mitch T Holzwarth P.A.-C., P.A. IMG DIAGNOSTIC IMAGIN G PROCEDURES ECG 12 Lead (10/12/2019 3:38 PM CDT) P athologist Signature Ventricular Rate 75 BPM MUSE ECG/Min AK Interval 154 ms MUSE QRSD Interval 90 ms MUSE QT Interval 388 ms MUSE QTC Interval 433 ms MUSE P [employer] 48 degrees MUSE R [employer] 14 degrees MUSE T Wave [employer] 23 degrees MUSE Specimen Anatomical Collection Method Collection Time Receive d Time (Source) Location / / Volume Laterality 10/12/2019 3:38 PM 0 3:52 CDT PM CDT Impressions MUSE - 10/12/2019 3:52 PM CDT Normal sinus rhythm Nonspecific ST and T wave abnormality No previous ECGs available Reviewed by MAYLIN Schmitt Narrative This result has an attachment that is no t available. Procedure Note Luciano Atkins Jr., M.D. - 10/12/2019For matting of this note might be different from the original. IMPRESSION: Normal sinus rhythm Nonspecific ST and T wave abnormality No previous ECGs available Reviewed by MAYLIN Schmitt Mitch Trivedi P.A.-C., P.A. ECG ORDERABLES Performing Organization Address City/State/ZIP Code Phon e Number MUSE MUSE NA Microscopic Automated (10/12/2019 2:58 PM CDT) Analysis Performed At Patho logist Time Signature White Blood None Seen /hpf 10/12/2019 [facility] Cells 4:10 PM CDT Comment: ----REFERENCE VALUE---- Males: 0-3 Females: 0-10 Unknown: 0-10 Red Blood Cells None Seen 0 - 2 /hpf 10/12/2019 4:10 PM CDT [facility] Squamous Cells Occ-3 /hpf 10/12/2019 4:10 PM CDT [facility] Specimen Anatomical Collection Method Collection Time Receive d Time (Source) Location / / Volume Laterality Urine 10/12/2019 2:58 PM 0 4:03 CDT PM CDT Mitch Trivedi P.A.-C., P.A. LAB URINE ORDERABLES Performing Organization Address City/State/ZIP Code Phon e Number [facility]- [address] [place] [address] [place] [address] System in [place] [address] [facility] (ABNORMAL) Urinalysis with Microscopic if Indicated (10/12/2019 2:58 PM CDT) P athologist Signature Source Midstream 10/12/2019 [facility] 4:10 PM CDT Clarity Clear Clear 10/12/2019 [facility] 4:10 PM CDT Color Yellow 10/12/2019 [facility] 4:10 PM CDT Comment: ----REFERENCE VALUE---- Colorless Yellow Ny Blood Negative Negative 10/12/2019 4:10 PM CDT [facility] Nitrite Negative Negative 10/12/2019 4:10 PM CDT [facility] Leukocyte Esterase Small (A) Negative 10/12/2019 4:10 PM CD T [facility] Protein Negative mg/dL 10/12/2019 4:10 PM CDT [facility] Comment: ----REFERENCE VALUE---- Negative Trace Glucose Negative Negative mg/dL 10/12/2019 4:10 PM CDT [facility] Ketone Negative Negative mg/dL 10/12/2019 4:10 PM CDT [facility] Bilirubin Negative Negative 10/12/2019 4:10 PM CDT [facility] pH 6.5 5.0 - 8.0 10/12/2019 4:10 PM CDT [facility] Specific [place] 1.005 1.001 - 1.035 10/12/2019 4:10 PM CDT [facility] Urobilinogen 0.2 0.2 - 1.0 10/12/2019 4:10 PM CDT [facility] Specimen Anatomical Collection Method Collection Time Receive d Time (Source) Location / / Volume Laterality Urine (Urine, 10/12/2019 2:58 PM 10/12/19 20 4:03 Clean Catch) CDT PM CDT Mitch Trivedi P.A.-C., P.A. 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 PCP - General Family Medicine 10/11/19 [address] [place] [address] documented as of this encounter
--- OUTSIDE RECORDS SUMMARY | 2022-02-13 09:16 | XMS_ITS | Encounter Summary ---
:1945 Author Organization [facility] Address [address] [place] [address] Care Team Providers Name Role Phone Tigre Preciado P.A.-C. 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 PCP - General Family Medicine 10/11/[address] [place] [phone] documented as of this encounter
--- OUTSIDE RECORDS SUMMARY | 2022-02-13 09:16 | XMS_ITS | Encounter Summary ---
:1945 Author Organization [facility] Address [address] [place] [address] Care Team Providers Name Role Phone Tigre Preciado P.A.-C. Primary Care Provider [phone] Reason for Visit Reason Comments Pain Mouth sores 3 days, Sore Throat from mouth sores Nausea 3 days on and off from mout h sores Outpatient (Routine) - Closed Specialty Diagnoses / Procedures Referred By Contact Refer red To Contact Diagnoses Nausea Tigre Preciado P.A.-C. [facility] Region [address] [place] [address] Referral ID Status Reason Start Date Expiration Date Visits Requ ested Visits Authorized [id number] Closed 02/12/2020 02/11/2021 1 1 Encounter Details Date Type Department Care Team Description 02/12/2020 Office Visit Urgent Care in Tigre Preciado P.A.-C. [address] [place] [phone] Sialoadenitis ([place], [place] Del Garrett P.A.-C. [address] [place] [address] Dx) [address] [place] [address] Social History Tobacco Use Types Packs/Day [...] Sign Reading Time Taken Comments Blood Pressure 149/70 02/12/2020 4:40 PM CDT Pulse 83 02/12/2020 4:40 PM CDT Temperature 36.6 ??C (97.9 ??F) 02/12/2020 4:40 PM CDT Respiratory Rate - - Oxygen Saturation 96% 02/12/2020 4:40 PM CDT Inhaled Oxygen Concentration - - Weight - - Height - - Body Mass Index - - documented in this encounter Progress Notes Del Garrett P.A.-Jovani., P.A. - 02/12/2020 4:45 PM CDT SUBJECTIVE: Isadora Back is an 74 y.o. female who presents for evaluation and treatment of sores in the mouth.Symptoms also include dry mouth. Onset 3 days, stable since that time. Known exposure: none pertinent. She has had some sore throat, denied other symptoms. Current Outpatient Medications on File Prior to Visit Medication Sig Dispense Refill ??? albuterol (PROAIR HFA) 90 mcg/actuation inhaler Inhale 2 puffs every 4 (four) hours as needed. ??? calcium carbonate-vitamin D3 1,250 mg (500 mg calcium)-400 unit per chewable tablet Chew 1 tablet. ??? CRANBERRY FRUIT EXTRACT (CRANBERRY ORAL) cranberry oral tablet PRN: Urinary discomfort ??? cyanocobalamin (vitamin B-12) 100 mcg tablet Take 100 mcg by mouth daily. ??? LACTOBACILLUS ACIDOPHILUS (ACIDOPHILUS ORAL) Take by mouth daily. ??? magnesium 200 mg tablet Take 400 mg by mouth daily. ??? multivitamin tablet Take 1 tablet by mouth. ??? SUMAtriptan (IMITREX) 25 mg tablet Take 1 tablet (25 mg total) by mouth as needed for migraine. May repeat dose once in 2 hours if migraine unresolved. 9 tablet 5 ??? vitamin A,C,A-hbvhhw-rfocfewb (OCUVITE W/LUTEIN) 1,000 Unit-200 mg-60 Unit-2 mg tablet Take 1 tablet by mouth daily. ??? miconazole (MICATIN) 2 % cream Apply 1 application topically 2 (two) times a day. (Patient not taking: Reported on 02/12/2020 ) 28.35 g 0 No current facility-administered medications on file prior to visit. Allergies Allergen Reactions ??? Fluconazole Other (see comments) and Anaphylaxis Lip blister, throat closing ??? Cefuroxime Axetil GI intolerance Other reaction(s): GI Upset ??? Azithromycin Nausea Only and GI intolerance Mood changes Other reaction(s): Headache Mood changes ??? Ciprofloxacin Tendonitis Other reaction(s): Myalgia ??? Latex Rash ??? Lidocaine-Epinephrine Palpitations ??? Metronidazole Tendonitis Other reaction(s): Myalgia ??? Sulfa (Sulfonamide Antibiotics) Nausea Only Social History Tobacco Use ??? Smoking status: Former Smoker Quit date: 1968 Years since quittin.8 ??? Smokeless tobacco: Never Used Substance Use Topics ??? Alcohol use: Yes Alcohol/week: 5.0 standard drinks Types: 5 Glasses of wine per week OBJECTIVE: BP 149/70 (BP Location: Right arm, Patient Position: Sitting, Cuff Size: Regular) Pulse 83 Temp 36.6 ??C (Temporal) LMP (LMP Unknown) SpO2 96% General appearance:healthy, alert, no distress, cooperative Ears: R TM - normal landmarks and mobility without significant erythema or bulging, L TM - normal landmarks and mobility without significant erythema or bulging Nose: normal Oropharynx: bilateral sublingual and submandibular salivary ducts appear inflamed and tender with palpation, no ductal stones palpated, tonsils normal bilaterally, pharynx normal Uvula midline Neck: supple and no lymphadenopathy; trismus absent No results found for this or any previous visit (from the past 24 hour(s)). ASSESSMENT and PLAN: Diagnosis Plan 1. [facility]oadenitis [facility] Visit cephalexin (Keflex) 500 mg capsule 1) Symptomatic treatment with fluids, vaporizer, acetaminophen. Recommended sialogogues. 2) Recheck as needed for persistence, worsening, appearance of new symptoms. Typical improvement should be expected in 2-3 days with antibiotics. Please follow up with ENT if not better. Side effects of the recommended medications discussed. Questions answered. Del Garrett P.A.-C., P.A. 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 PCP - General Family Medicine 10/11/[address] [place] [phone] documented as of this encounter
--- OUTSIDE RECORDS SUMMARY | 2022-02-13 09:16 | XMS_ITS | Encounter Summary ---
:1945 Author Organization [facility] Address [address] [place] [address] Care Team Providers Name Role Phone Tigre Preciado P.A.-C. Primary Care Provider [phone] Reason for Referral Outpatient (Routine) - Closed Specialty Diagnoses / Procedures Referred By Contact Refer red To Contact Family Medicine Tigre Preciado P. A.-C. [facility] Region [address] [place] [phone] Referral ID Status Reason Start Date Expiration Date Visits Requ ested Visits Authorized [id number] Closed 11/13/2019 11/12/2020 1 1 Outpatient (Routine) - Closed Specialty Diagnoses / Procedures Referred By Contact Refer red To Contact Diagnoses Screening Mammogram Breast Cancer Tigre Preciado P.A.-C. [facility] Procedures BI Breast Screening Bilateral [address] [place] [phone] Referral ID Status Reason Start Date Expiration Date Visits Requ ested Visits Authorized [id number] Closed 11/13/2019 11/12/2020 1 1 Physical Therapy (Routine) - Closed Specialty Diagnoses / Procedures Referred By Contact Refer red To Contact Diagnoses Pain Neck Tigre Preciado P.A.-C. [address] [place] [phone] Referral ID Status Reason Start Date Expiration Date Visits V isits Requested Authorized Closed Service not 11/13/2019 11/12/2020 1 1 available in [facility] Outpatient (Routine) - Closed Specialty Diagnoses / Procedures Referred By Contact Refer red To Contact Obstetrics and Diagnoses Cystocele Tigre Preciado [facility] Gynecology [place] [address] [place] [phone] Referral ID Status Reason Start Date Expiration Date Visits Requ ested Visits Authorized [id number] Closed 11/13/2019 11/12/2020 1 1 Reason for Visit Reason Comments Annual Exam labs completed on 11/08/2019 Appointment Request (Routine) - Closed Specialty Diagnoses / Procedures Referred By Contact Refer red To Contact Family Medicine Referral ID Status Reason Start Date Expiration Date Visits Requ ested Visits Authorized [id number] Closed 10/13/2019 10/12/2020 1 1 Encounter Details Date Type Department Care Team Description 11/13/2019 Comprehensive Visit Department of Claudia Preciado Personal History (Primary Dx); Family MedicineTigre P.A.-C. Asthma (HCC); [facility], [address] [place] [address] Anxiety; in [place], [place] Osteoporosis; [place] [address] Neuropathy Peripheral; [address] [phone] General Medical Examination Adult; [place], [place] (Work) Cystocele; [phone] Hyponatremia; Pain Neck; Screening Mammo gram Breast Cancer Social History Tobacco Use Types Packs/Day Years [...] Sign Reading Time Taken Comments Blood Pressure 118/72 11/13/2019 12:47 PM CDT Pulse 89 11/13/2019 12:47 PM CDT Temperature 37.2 ??C (99 ??F) 11/13/2019 12:47 PM CDT Respiratory Rate 18 11/13/2019 12:47 PM CDT Oxygen Saturation - - Inhaled Oxygen Concentration - - Weight 55.5 kg (122 lb 5.7 11/13/2019 12:47 PM with nadege es on oz) CDT Height 160 cm (5' 2.99) 11/13/2019 12:47 PM with shoes on CDT Body Mass Index 21.68 11/13/2019 12:47 PM CDT documented in this encounter H&P Notes Tigre Preciado P.A.-C. - 11/13/2019 1:00 PM CDT CHIEF COMPLAINT / REASON FOR VISIT Isadora Back is a 74 y.o. female who presents for evaluation of Annual Exam (labs completed on 11/08/2019). HISTORY OF PRESENT ILLNESS Isadora presents today for her yearly history and physical. For the most part she is doing quite well she has a history of colon polyps and is due for colonoscopy. She would like to do Cologuard but she is at higher risk because of her history of polyps and would really benefit from having colonoscopy. She has asthma and uses her albuterol occasionally. She has a history of migraine headaches and rarely uses Imitrex. She would like a refill of this. She recently was feeling fatigued she had extensive evaluation that was really negative with the exception of some mild hyponatremia. She says she eats plenty of salt. She prefers salty snacks to sugar he snacks. She has peripheral neuropathy and occasionally diverticulitis and she says she treats these with herbal remedies and has had good success withthis. She has a history of a lumpectomy of her breast in the past she is due for a mammogram again. She has a cystocele and says she can palpate her bladder from her vagina occasionally. She is wantingif his anything that can be done about this. PAST MEDICAL HISTORY: Patient Active Problem List Diagnosis ??? Anxiety ??? Polyp Colon Personal History ??? Asthma (HCC) ??? Osteoporosis ??? Neuropathy Peripheral ??? Hyponatremia PAST SURGICAL HISTORY: Past Surgical History: Procedure Laterality Date ??? BREAST BIOPSY Right OK ??? COLONOSCOPY W/ OR W/O BIOPSY 11/10/[address] Eric Cabrera who recommended repeat in 5 years. ??? DILATION AND CURETTAGE OF UTERUS at age 15 for menorrhagia ??? LAPAROSCOPIC CHOLECYSTECTOMY N/A 2007 Laparoscopic cholecystectomy ??? LUMPECTOMY BREAST Right ??? VAGINAL DELIVERY 1973 1976 1978 x 3 SOCIAL HISTORY: Social History Tobacco Use ??? Smoking status: Former Smoker Last attempt to quit: 1968 Years since quittin.6 ??? Smokeless tobacco: Never Used Substance Use Topics ??? Alcohol use: Yes Alcohol/week: 5.0 standard drinks Types: 5 Glasses of wine per week ??? Drug use: No FAMILY HISTORY: Family History Problem Relation Age of Onset ??? COPD Mother ??? Diabetes Mother ??? Hypertension Mother ??? Macular degeneration Mother ??? Breast cancer Mother ??? Hypertension Father ??? Cancer Father laryngeal cancer ??? Pacemaker pulse generator Sister ??? Coronary artery disease Sister ??? Retinal detachment Sister ??? Cancer Brother laryngeal cancer ??? Breast cancer Mother's Sister REVIEW OF SYSTEMS: General: Denies recent fever, weight loss, or extreme fatigue. Eyes: Denies double vision or sudden loss of vision. ENT: Denies sore throat, runny nose, ear pain, or hearing loss. Heart:: Denies chest pain or irregular heartbeats. Respiratory: Denies cough, wheezing, shortness of breath. Digestion: Denies nausea, vomiting, diarrhea or constipation. Genito/Urinary: Denies frequent or painful urination. Skin: Denies rash, sores, excessive bruising, or change of a mole. Nerves/Brain: Denies headache, persistent weakness or numbness. Endocrine: Denies excessive thirst or urination, cold or heat intolerance. Blood: Denies unusual bruising or bleeding or enlarged lymph nodes. MEDICATIONS: Current Outpatient Medications Medication Sig Dispense Refill ??? albuterol (PROAIR [...] migraine unresolved. 9 tablet 5 ??? vitamin A,C,F-dxmylp-vettlkkc (OCUVITE W/LUTEIN) 1,000 Unit-200 mg-60 Unit-2 mg tablet Take 1 tablet by mouth daily. No current facility-administered medications for this visit. ALLERGIES: Allergies Allergen Reactions ??? Fluconazole Other (see comments) and Anaphylaxis Lip blister, throat closing ??? Cefuroxime Axetil GI intolerance Other reaction(s): GI Upset ??? Azithromycin Nausea Only and GI intolerance Mood changes Other reaction(s): Headache Mood changes ??? Ciprofloxacin Tendonitis Other reaction(s): Myalgia ??? Latex Rash ??? Lidocaine-Epinephrine Palpitations ??? Metronidazole Tendonitis Other reaction(s): Myalgia ??? Sulfa (Sulfonamide Antibiotics) Nausea Only OBJECTIVE Vitals: 11/13/19 1247 BP: 118/72 Pulse: 89 Resp: 18 Temp: 37.2 ??C TempSrc: Temporal Weight: 55.5 kg Height: 160 cm Body mass index is 21.68 kg/m??. PHYSICAL EXAMINATION General: Patient appears in no acute distress. ENT: TMs no erythema. Throat no erythema. Neck: No lymphadenopathy. No thyroid masses. Heart: Regular rate and rhythm. No murmurs. Lungs: Clear to auscultation. Abdomen: Soft and nontender to palpation. IMPRESSION / REPORT / PLAN #1 Polyp Colon Personal History She is due for colonoscopy. Will put this through today today's visit will count as her preop if shegets them within the next 30 days. She will be ASA class 2 #2 Asthma (HCC) This is well controlled she will use her albuterol as needed #3 Anxiety Overall this is stable. #4 Osteoporosis She will continue with her calcium supplementation #5 Neuropathy Peripheral She says that this has done much better with herbal treatments #6 General Medical Examination Adult She maintains an active lifestyle I would encourage her to continue with this #7 Cystocele I would like her to follow up with Nivia Trujillo in OBGYN. She discussed possibly doing some physical therapy as well #8 Hyponatremia A this point will have her liberalize her salt intake and will reassess this is again in the future.Her sodium was just slightly low I do not think there is anything that needs to be done acutely. There is nothing else that is contributing to her low sodium based on her medications. #9 Pain Neck She occasionally gets some neck pain is not bothering her now but when it does she likes to do physical therapy. I gave her a referral for physical therapy today #10 Screening Mammogram Breast Cancer Will put through her mammogram today. Total time spent with her was 40 minutes of which 30 was [id number] coordination of care and counseling Tigre Preciado P.A.-C. documented in this encounter Plan of Treatment Scheduled Referrals Name Type Priority Associated Order Schedule Diagnoses Obstetrics and Outpatient Referral Routine Cystocele Expect ed: Gynecology - 11/13/2019 Urogynecology consult (Appro ximate), (clinic) Expires: 11/12/2022 Family Medicine office Outpatient Referral Routine Expected: visit (clinic) 11/12/2020 (Approximate), Expires: 11/12/2022 documented as of this encounter Results BI Breast Screening Bilateral (11/21/2019 1:10 PM CDT) Anatomical Region Laterality Modality Breast, Breast Imaging RST LOS, Breast Imaging ARZ LOS, Tami st Bilateral Mammography Imaging FLA LOS Specimen (Source) Anatomical Collection Method [...] documented in this encounter Visit Diagnoses Diagnosis Polyp Colon Personal History - Primary Asthma (HCC) Anxiety Osteoporosis Neuropathy Peripheral General Medical Examination Adult Cystocele Hyponatremia Pain Neck Screening Mammogram Breast Cancer Screening Mammogram Breast Cancer documented in this encounter Additional Health Concerns Assessment Noted Time PHQ-9 Depression Total Score: 1 06/02/2017 9: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 PCP - General Family Medicine 10/11/19 [address] [place] [address] documented as of this encounter
--- OUTSIDE RECORDS SUMMARY | 2022-02-13 09:16 | XMS_ITS | Encounter Summary ---
:1945 Author Organization [facility] Address [address] [place] [address] Care Team Providers Name Role Phone Tigre Preciado P.A.-C. Primary Care Provider [phone] Reason for Visit Reason Comments Pre-op Exam froman 01/19/20 colonoscopy sore on face Appointment Request (Routine) - Closed Specialty Diagnoses / Procedures Referred By Contact Refer red To Contact Family Medicine Tigre Preciado P. A.-C. [address] [place] [phone] Referral ID Status Reason Start Date Expiration Date Visits Requ ested Visits Authorized [id number] Closed 11/13/2019 11/12/2020 1 1 Encounter Details Date Type Department Care Team Description 01/12/2020 Office Visit Department of Family Tigre Preciado Po lyfrancesco Colon Personal History (Primary Dx); MedicineJeff P.A.-C. Screening Cancer Colon; Clinic, in [address] [facility] [address] [place], [place] [phone] (Work) [phone] Social History Tobacco Use Types Packs/Day Years [...] Sign Reading Time Taken Comments Blood Pressure 138/70 01/12/2020 10:58 AM CDT Pulse 74 01/12/2020 10:06 AM CDT Temperature 36.6 ??C (97.9 ??F) 01/12/2020 10:06 AM CDT Respiratory Rate 20 01/12/2020 10:06 AM CDT Oxygen Saturation 99% 01/12/2020 10:06 AM CDT Inhaled Oxygen Concentration - - Weight 56.2 kg (123 lb 14.4 oz) 01/12/2020 10:06 AM CDT Height 159 cm (5' 2.6) 01/12/2020 10:06 AM CDT Body Mass Index 22.23 01/12/2020 10:06 AM CDT documented in this encounter H&P Notes Tigre Preciado P.A.-C. - 01/12/2020 10:30 AM CDT PREOPERATIVE HISTORY AND PHYSICAL CHIEF COMPLAINT / REASON FOR VISIT Isadora Back is a 74 y.o. female who presents for evaluation of Pre-op Exam (from 01/19/20 colonoscopy ) and sore on face. HISTORY OF PRESENT ILLNESS: Isadora presents today for preop history and physical prior to her colonoscopy coming up next week. Overall she is doing well. She has a history of colon polyps and is due for her colonoscopy. She is very active woman and is able to walk at least 2 city blocks without getting shortness of breath or chest discomfort PAST MEDICAL HISTORY: Patient Active Problem List Diagnosis ??? Anxiety ??? Polyp Colon Personal History ??? Asthma (HCC) ??? Osteoporosis ??? Neuropathy Peripheral ??? Hyponatremia ??? Cystocele ??? Cheilitis Angular PAST SURGICAL HISTORY: Past Surgical History: Procedure Laterality Date ??? BREAST BIOPSY Right 1990s [place] ??? COLONOSCOPY W/ OR W/O BIOPSY 11/10/[address] Eric Cabrera who recommended repeat in 5 years. ??? DILATION AND CURETTAGE OF UTERUS at age 15 for menorrhagia ??? LAPAROSCOPIC CHOLECYSTECTOMY N/A 2007 Laparoscopic cholecystectomy ??? LUMPECTOMY BREAST Right ??? VAGINAL DELIVERY 1974 1976 1978 x 3 SOCIAL HISTORY: Social History Tobacco Use ??? Smoking status: Former Smoker Last attempt to quit: 1968 Years since quittin.7 ??? Smokeless tobacco: Never Used Substance Use [...] Take 400 mg by mouth daily. ??? miconazole (MICATIN) 2 % cream Apply 1 application topically 2 (two) times a day. 28.35 g 0 ??? multivitamin tablet Take 1 tablet by mouth. ??? SUMAtriptan (IMITREX) 25 mg tablet Take 1 tablet (25 mg total) by mouth as needed for migraine. May repeat dose once in 2 hours if migraine unresolved. 9 tablet 5 ??? vitamin A,C,W-mzjmmf-biwvlwqr (OCUVITE W/LUTEIN) 1,000 Unit-200 mg-60 Unit-2 mg [...] Myalgia ??? Sulfa (Sulfonamide Antibiotics) Nausea Only VITALS: Vitals: 01/12/20 1006 01/12/20 1010 01/12/20 1058 BP: 151/68 150/72 138/70 BP Location: Left arm Left arm Patient Position: Sitting Sitting Cuff Size: Regular Regular Pulse: 74 Resp: 20 Temp: 36.6 ??C SpO2: 99% Weight: 56.2 kg Height: 159 cm Body mass index is 22.23 kg/m??. PHYSICAL EXAMINATION: General: Patient appears in no acute distress. ENT: TMs no erythema. Throat no erythema. She does have an area of erythema on the left side of her mouth consistent with angular cheilitis Neck: No lymphadenopathy. No thyroid masses. Heart: Regular rate and rhythm. No murmurs. Lungs: Clear to auscultation. Abdomen: Soft and nontender to palpation. IMPRESSION / REPORT / PLAN: #1 Polyp Colon Personal History She will follow up for colonoscopy as scheduled #2 Screening Cancer Colon She is ASA class 2 for surgery. She has medical comorbidities but they are all well controlled. Follow-up as scheduled #3 Cheilitis Angular She has been using some miconazole for this am going to have her also use some hydrocortisone this will hopefully help settle down her inflammation of it does not resolve she will let us know Tigre Preciado P.A.-C. 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 PCP - General Family Medicine 10/11/19 [address] [place] [phone] documented as of this encounter
--- OUTSIDE RECORDS SUMMARY | 2022-02-13 09:16 | XMS_ITS | Encounter Summary ---
:1945 Author Organization [facility] Address [address] [place] [address] Care Team Providers Name Role Phone Tigre Preciado P.A.-C. Primary Care Provider [phone] Encounter Details Date Type Department Care Team Description 11/08/2019 Hospital Encounter Department of Loco Preciado Examination Diabetes Mellitus; Laboratory Medicine Juan Landeros Encounter For Screening For Cardiovascul ar Disorders; in [address] Screening Examination For Thyroid Disord er [place], [place] [address] [facility] [address] [place], [place] [phone] [address] (Work) [phone] Social History Tobacco Use Types Packs/Day Years [...] mouth. vitamin Take 1 tablet by 0 A,C,V-zqriqc-afrmijvh mouth daily. (OCUVITE W/LUTEIN) 1,000 Unit-200 mg-60 [...] Name Priority Date/Time Associated Diagnosis Comme nts LIPID PANEL, S Routine 11/08/2019 9:24 AM Screening Examinatio n Results for this CDT Diabetes Mellitu s procedure are in Encounter For Screening the results For Cardiovascular section. Disorders Screening Examination For Thyroid Disorder THYROID-STIMULATIN Routine 11/08/2019 9:24 AM Screening Examin ation Results for this G CDT Diabetes Wenitu s procedure are in HORMONE-SENSITIVE Encounter For Screening the results (S-TSH) For Cardiovascular section. Disorders Screening Examination For Thyroid Disorder BASIC METABOLIC Routine 11/08/2019 9:24 AM Screening Examinati on Results for this PANEL, S/P CDT Diabetes Mellitu s procedure are in Encounter For Screening the results For Cardiovascular section. Disorders Screening Examination For Thyroid Disorder documented in this encounter Results S-TSH (Thyroid-Stimulating Hormone - Sensitive) (11/08/2019 9:24 AM CDT) P athologist Signature TSH, Sensitive 4.0 0.3 - 4.2 11/08/2019 [place] mIU/L 11:17 AM CDT Comment: Biotin has been identified by the emilia galloway as a potential interfering substance. ??Higher concentr ations of biotin may be found in multivitamins, hair/nail supple ments, and workout supplements. ??If the result does not ma tch clinical observations, repeat testing after patient refrains fr om the use of supplements for at least 12 hours. Specimen Anatomical Collection Method Collection Time Receive d Time (Source) Location / / Volume Laterality Blood (Blood, 11/08/2019 9:24 AM 11/08/19 20 Venous) CDT 10:26 AM CDT Tigre Preciado P.A.-C. LAB BLOOD ADD-ON Performing Organization Address City/State/ZIP Code Phon e Number [facility] [address] [place] [address] [place] [address] System in [place] [address] (ABNORMAL) Lipid Panel (11/08/2019 9:24 AM CDT) P athologist Signature Cholesterol, 210 (H) mg/dL 11/08/2019 [place] Total 4:18 PM CDT Comment: ----REFERENCE VALUE---- Desirable: < 200 Borderline high: 200 - 239 High: > or = 240 Triglycerides 83 mg/dL 11/08/2019 4:18 PM CDT [place] T Comment: ----REFERENCE VALUE---- Normal: <150 Borderline high: 150-199 High: 200-499 Very high: > or =500 Cholesterol, HDL 68 >=50 mg/dL 11/08/2019 4:18 PM CDT [place] Calculated LDL 125 mg/dL 11/08/2019 4:18 PM CDT [place] Comment: ----REFERENCE VALUE---- Desirable: <100 Above Desirable: 100-129 Borderline high: 130-159 High: 160-189 Very high: > or =190 Cholesterol, Non-HDL, Calculated 142 mg/dL 020 4:18 PM CDT [place] Comment: ----REFERENCE VALUE---- Desirable: <130 Above Desirable: 130-159 Borderline high: 160-189 High: 190-219 Very high: > or =220 Specimen Anatomical Collection Method Collection Time Receive d Time (Source) Location / / Volume Laterality Blood (Blood, 11/08/2019 9:24 AM 11/08/19 20 Venous) CDT 10:26 AM CDT Tigre Preciado P.A.-C. LAB BLOOD ADD-ON Performing Organization Address City/State/ZIP Code Phon e Number [facility] [address] [place] [address] [facility] [place] [address] System in [place] [address] [facility] (ABNORMAL) Basic Metabolic Panel (11/08/2019 9:24 AM CDT) P athologist Signature Potassium, P 4.5 3.6 - 5.2 11/08/2019 [place] mmol/L 4:18 PM CDT Sodium, P 132 (L) 135 - 145 11/08/2019 [place] mmol/L 4:18 PM CDT Chloride, P 94 (L) 98 - 107 11/08/2019 [place] mmol/L 4:18 PM CDT Bicarbonate, P 25 22 - 29 11/08/2019 [place] mmol/L 4:18 PM CDT Anion Gap, P 13 7 - 15 11/08/2019 [place] 4:18 PM CDT BUN (Blood Urea 10 6 - 21 11/08/2019 [place] Nitrogen), P mg/dL 4:18 PM CDT Creatinine 0.85 0.59 - 11/08/2019 [place] 1.04 mg/dL 4:18 PM CDT eGFR-Black/Afri 79 >=60 11/08/2019 [facility] can Algerian mL/min/BSA 4:18 PM CDT Comment: ----ADDITIONAL INFORMATION---- Estimated GFR calculated using the 2009 CKD_EPI creatinine equation. eGFR Non-Black/ 69 >=60 mL/min/BSA 4:18 PM CDT [facility] Comment: ----ADDITIONAL INFORMATION---- Estimated GFR calculated using the 2009 CKD_EPI creatinine equation. Calcium, Total, P 9.9 8.8 - 10.2 mg/dL 11/08/2019 4:18 PM CDT [place] Glucose, P 95 70 - 140 mg/dL 11/08/2019 4:18 PM CDT O DAISY Specimen Anatomical Collection Method Collection Time Receive d Time (Source) Location / / Volume Laterality Blood (Blood, 11/08/2019 9:24 AM 11/08/19 20 Venous) CDT 10:26 AM CDT Tigre Preciado P.A.-C. LAB BLOOD ADD-ON Performing Organization Address City/State/ZIP Code Phon e Number [facility] [address] [place] [address] [place] [address] System in [place] [facility] documented in this encounter Visit Diagnoses Diagnosis Screening Examination Diabetes Mellitus Encounter For Screening For Cardiovascul ar Disorders Screening Examination For Thyroid Disord er documented in this encounter Additional Health Concerns Assessment Noted Time PHQ-9 Depression Total Score: 1 06/02/2017 9:34 AM ACQUISITION EDITOR documented as of this encounter Care Teams Professor Of Theatre Relationship Specialty Start Date End Date Tigre Preciado P.A.-C. PCP - General Family Medicine 10/11/19 [address] [place] [address] documented as of this encounter
--- OUTSIDE RECORDS SUMMARY | 2022-02-13 09:16 | XMS_ITS | Encounter Summary ---
:1945 Author Organization [facility] Address [address] [place] [address] Care Team Providers Name Role Phone Tigre Preciado P.A.-C. Primary Care Provider [phone] Reason for Visit Reason Comments COVID Inquiry Encounter Details Date Type Department Care Team Description 11/08/2019 Clinical Communication Department of [facility] JAMARCUS Preciado [facility] Juan Landeros [facility], in [address] [facility] [address] [place], [place] [phone] (Work) [phone] Social History Tobacco Use Types Packs/Day Years [...] this encounter Miscellaneous Notes Telephone Encounter - Loyda Rosales - 11/08/2019 8:41 AM CDT ([facility] and [facility] locations only: If the patient is not having symptoms and is requesting COVID-19 Nasal Swab testing only, use the process listed in the COVID-19 Patient Requesting COVID PCR Test OTG COVID-19 [place] Patient Requesting COVID PCR Test). 1. Do you have a pending COVID test because you had symptoms or exposure to someone with COVID or you have tested positive for COVID in the last 30 days? no 2. In the past 14 days, do you, anyone in the household, or anyone you have had prolonged exposure have any of the following? a. Fever greater than or equal to 37.8 C (100.0 F)? no b. New symptoms (Specifically: headache, cough, shortness of breath, respiratory distress, sore throat, diarrhea, nausea, vomiting, chills and repeated shaking with chills, myalgia's (muscle aches), loss of smell, or change or loss of taste sensation)? no c. Had close contact with a patient with known or possible COVID-19 in the last 14 days? no Scheduling Contact Number: [phone] documented in this encounter Plan of Treatment Not on filedocumented as of this encounter Visit Diagnoses Not on filedocumented in this encounter Additional Health Concerns Assessment Noted Time PHQ-9 Depression Total Score: 1 06/02/2017 9:34 AM CONSTRUCTION SAFETY MANAGER documented as of this encounter Care Teams Adult School Counselor Relationship Specialty Start Date End Date Tigre Preciado P.A.-C. PCP - General Family Medicine 10/11/19 [address] [place] [address] documented as of this encounter
--- OUTSIDE RECORDS SUMMARY | 2022-02-13 09:16 | XMS_ITS | Encounter Summary ---
:1945 Author Organization [facility] Address [address] [place] [address] Care Team Providers Name Role Phone Tigre Preciado P.A.-C. Primary Care Provider Reason for Visit Reason Comments Colonoscopy Date Encounter Details Date Type Department Care Team Description 02/07/2020 Clinical Communication Department of Duncan Amaro onoscopy Date General Surgery in [place], [place] [address] [place] [phone] Social History Tobacco Use Types Packs/Day Years [...] this encounter Miscellaneous Notes Telephone Encounter - Krysta Banda L.PEldaNElda - 02/07/2020 11:34 AM CDT Noted. Telephone Encounter - Tameka Rodriguez - 02/07/2020 11:27 AM CDT PHYSICIAN: Sherman Amaro REASON FOR CALL: Preop 03/04/2020 Tigre Preciado S: SURG DATE: 03/12/2020 Colonoscopy Fatmata B: REQUEST FOR SURG: [facility] [place] A: ANESTHESIA: R: HOSP WILL CALL WITH TIME COVID Swab scheduled for 03/09/2020 documented in this encounter Plan of Treatment Not on filedocumented as of this encounter Visit Diagnoses Not on filedocumented in this encounter Additional Health Concerns Assessment Noted Time PHQ-9 Depression Total Score: 1 06/02/2017 9:34 AM PERSONAL LINES ADVISOR documented as of this encounter Care Teams Logistics Management Specialist Relationship Specialty Start Date End Date Tigre Preciado P.A.-C. PCP - General Family Medicine 10/11/19 [address] [place] [address] documented as of this encounter
--- OUTSIDE RECORDS SUMMARY | 2022-02-13 09:16 | XMS_ITS | Encounter Summary ---
:1945 Author Organization [facility] Address [address] [place] [address] Care Team Providers Name Role Phone Tigre Preciado P.A.-C. Primary Care Provider Reason for Visit Reason Comments COVID Nurse Line Encounter Details Date Type Department Care Team Description 10/11/2019 Clinical Communication Central Appointment Line, Cov[place] Nurse Line Office in [facility] [address] [place] [address] Social History Tobacco Use Types Packs/Day Years [...] encounter Miscellaneous Notes Telephone Encounter - Maricruz Garcia R.N. - 10/11/2019 9:52 AM CDT COVID-19 Nurse Line Screening Patient called COVID-19 Triage Line on 10/10 to report shortness of breath within the last 48 hours. Patient screened positive for COVID-19 testing. She agreed to test. Patient was given address, hours,and instructions of [place], [place] testing location. Patient educated on procedure and precautions andverbalized understanding. Patient advised to call back if new symptoms develop. She agreed to plan of care. No further questions at the end of encounter. ASSESSMENT COVID 19 Screening Have you had close contact with a person who has a LABORATORY CONFIRMED case of COVID-19?: No - Continue screening. In the last 48 hours have you had any of the following symptoms?: New shortness of breath Do you have any urgent symptoms?: None- Patient meets criteria for testing. PLAN Endpoint recommendation: Screening positive, testing indicated, advised to be swabbed for COVID-19, sent to [place] located [address] [facility]. Take [address]age [address] to back of the clinic; cannot access from main parking lot. Testing hours are daily 10 am to 6 pm. When you arrive stay in your car and someone will direct you. and Self-isolation, quarantine at home Care Points provided: STANDARD PRECAUTIONS FOR ALL PATIENTS: Wash hands often with soap and water for at least 20 seconds, especially after blowing your nose, coughing, sneezing, or having been in a public place. Avoid close contact with anyone who may be exhibiting respiratory symptoms such as coughing and sneezing. Clean and disinfect frequently touched surfaces daily. Cover your mouth and nose with a cloth face cover when around others or in public. The cloth face cover is not a substitute for social distancing. Continue to keep about 6 feet between yourself and others. Monitor for symptoms. Do not take your temperature within 30 minutes of exercise. If your test or screen is negative and new symptoms develop please contact your care provider to determine if re-testing is necessary. RECOMMENDATIONS TESTING CRITERIA IS MET: Stay home except to get medical care. Avoid public areasand public transportation. Separate yourself from other people and stay in a specific sick room ifpossible. Wear a cloth face covering, over your nose and mouth if you must be around other people even at home). Cover your nose and mouth when coughing or sneezing. Seek emergent care if any of the following occur: 1) Trouble breathing, 2) Bluish lips or face, 3) Persistent pain or pressure in the chest, 4) Newly confused or unable to stay alert and awake. Notify appropriate care provider if any newor worsening symptoms. If your test is negative and new symptoms develop please contact your care provider to determine if re-testing is necessary. SELF CARE FOR ALL PATIENTS: Take breaks from watching, reading, or listening to news stories. Connect with others. Be creative in keeping connected with loved ones, especially those at high risk. Try healthy coping strategies such as meditation, relaxation, exercise, healthy eating habits, and avoid alcohol and drugs. Education: patient/caregiver Patient/caregiver able to teach back Patient agreeable to plan of care: Yes The following references were used: [facility] novel coronavirus (COVID- 19) resources Nursing judgement documented in this encounter Plan of Treatment Not on filedocumented as of this encounter Visit Diagnoses Not on filedocumented in this encounter Additional Health Concerns Assessment Noted Time PHQ-9 Depression Total Score: 1 06/02/2017 9:34 AM MODEL BUILDER DISPLAY documented as of this encounter Care Teams Chemist Enzymes Relationship Specialty Start Date End Date Tigre Preciado P.A.-C. PCP - General Family Medicine 10/11/19 [address] [place] [address] documented as of this encounter
--- OUTSIDE RECORDS SUMMARY | 2022-02-13 09:16 | XMS_ITS | Encounter Summary ---
:1945 Author Organization [facility] Address [address] [place] [address] Care Team Providers Name Role Phone Tigre Preciado P.A.-C. Primary Care Provider [phone] Reason for Visit Reason Comments Pre-op Exam colonoscopy on 03/[address] Amaro in [place] Appointment Request (Routine) - Closed Specialty Diagnoses / Procedures Referred By Contact Refer red To Contact Family Medicine Referral ID Status Reason Start Date Expiration Date Visits Requ ested Visits Authorized [id number] Closed 02/05/2020 02/04/2021 1 1 Encounter Details Date Type Department Care Team Description 03/04/2020 Office Visit Department of Family Tigre Preciado Pr eoperative Exam (Primary Dx); Medicine, Jeff Edmondson Polyp Colon Personal History Clinic, in [address] [facility] [address] [place], [place] [phone] [phone] (Work) [phone] Social History Tobacco Use Types Packs/Day Years [...] Sign Reading Time Taken Comments Blood Pressure 138/80 03/04/2020 3:49 PM FRONT DESK AGENT Pulse 76 03/04/2020 3:49 PM FRONT DESK AGENT Temperature 36.5 ??C (97.7 ??F) 03/04/2020 3:49 PM FRONT DESK AGENT Respiratory Rate - - Oxygen Saturation 98% 03/04/2020 3:49 PM FRONT DESK AGENT Inhaled Oxygen Concentration - - Weight 57 kg (125 lb 10.6 oz) 03/04/2020 3:49 PM FRONT DESK AGENT Height 160 cm (5' 2.99) 03/04/2020 3:49 PM FRONT DESK AGENT Body Mass Index 22.27 03/04/2020 3:49 PM FRONT DESK AGENT documented in this encounter H&P Notes Tigre Preciado P.A.-C. - 03/04/2020 4:00 PM CST PREOPERATIVE HISTORY AND PHYSICAL CHIEF COMPLAINT / REASON FOR VISIT Isadora Back is a 74 y.o. female who presents for evaluation of Pre-op Exam (colonoscopy on 03/[address] Amaro in [place]). HISTORY OF PRESENT ILLNESS: Isadora comes in today for preop history and physical. She has a history of colon polyps. She was to have her colonoscopy done about a month ago but her was ill and so she delayed it to now. Now she needs to be seen for another preop. I did recently see her for angular cheilitis and she also hadthrush she responded nicely to nystatin. I did review her other medical problems. In general she is feeling well she is able to walk 2 city blocks without getting short of breath or have chest pain PAST MEDICAL HISTORY: Patient Active Problem List [...] Former Smoker Quit date: 1968 Years since quittin.9 ??? Smokeless tobacco: Never Used Substance Use [...] tablet Take 1 tablet by mouth. ??? nystatin (MYCOSTATIN) 100,000 unit/mL suspension Take 5 mL (500,000 Units total) by mouth 4 (four) times a day. Swish in mouth and swallow 280 mL 0 ??? SUMAtriptan (IMITREX) 25 mg tablet Take 1 tablet (25 mg total) by mouth as needed for migraine. May repeat dose once in 2 hours if migraine unresolved. 9 tablet 5 ??? vitamin A,C,C-zwhzmg-ldlkleak (OCUVITE W/LUTEIN) 1,000 Unit-200 mg-60 Unit-2 mg [...] Sulfa (Sulfonamide Antibiotics) Nausea Only VITALS: Vitals: 03/04/20 1549 BP: 138/80 BP Location: Left arm Patient Position: Sitting Cuff Size: Regular Pulse: 76 Temp: 36.5 ??C SpO2: 98% Weight: 57 kg Height: 160 cm Body mass index is 22.27 kg/m??. PHYSICAL EXAMINATION: General: Patient appears in no acute distress. ENT: TMs no erythema. Throat no erythema. Oropharynx is moist no lesions on her tongue Neck: No lymphadenopathy. No thyroid masses. Heart: Regular rate and rhythm. No murmurs. Lungs: Clear to auscultation. Abdomen: Soft and nontender to palpation. IMPRESSION / REPORT / PLAN: #1 Preoperative Exam She is ASA class 2 for surgery. Follow-up as scheduled she does have a COVID test scheduled #2 Polyp Colon Personal History Follow-up for her colonoscopy as scheduled. Total time spent with her was 25 minutes of which 15 [id number] coordination of care and counseling Tigre Preciado P.A.-C. T DESK AGENT documented in this encounter Plan of Treatment Not on filedocumented as of this encounter Visit Diagnoses Diagnosis Preoperative Exam - Primary Polyp Colon Personal History documented in this encounter Additional Health Concerns Assessment Noted Time PHQ-9 Depression Total Score: 1 06/02/2017 9:34 AM FRONT DESK AGENT documented as of this encounter Care Teams Bit Sharpener Relationship Specialty Start Date End Date Tigre Preciado P.A.-C. PCP - General Family Medicine 10/11/19 [address] [place] [address] documented as of this encounter
--- OUTSIDE RECORDS SUMMARY | 2022-02-13 09:16 | XMS_ITS | Encounter Summary ---
:1945 Author Organization [facility] Address [address] [place] [address] Care Team Providers Name Role Phone Tigre Preciado P.A.-C. Primary Care Provider [phone] Reason for Visit Reason Comments Medication Question Pharm calling Encounter Details Date Type Department Care Team Description 12/01/2019 Clinical Communication Department of Charles Zafar Obstetrics and Oc Montanez (Pharm callin g) [facility] [address] [place], [place] [address] [facility] [address] [place], [place] [phone] [address] (Work) [phone] Social History Tobacco Use Types Packs/Day Years [...] this encounter Miscellaneous Notes Telephone Encounter - Laurence Kapadia R.N. - 12/01/2019 4:38 PM CDT Isadora was notified. Addendum Note - Oc Zafar APRN, C.N.P. - 12/01/2019 4:27 PM CDT Addended by: OC ZAFAR on: 12/01/2019 04:27 PM Modules accepted: Orders Telephone Encounter - Laurence Kapadia R.N. - 12/01/2019 9:43 AM CDT Was seen yesterday. Please advise. Thanks Telephone Encounter - Ivon Purdy - 12/01/2019 9:37 AM CDT Reason for Communication: Yesika from [facility] called. RX miconazole nitrate was sent as an ointment and they are asking if they can switch it to a cream. Current Action Needed: please call documented in this encounter Plan of Treatment Not on filedocumented as of this encounter Visit Diagnoses Diagnosis Cheilitis Angular - Primary documented in this encounter Additional Health Concerns Assessment Noted Time PHQ-9 Depression Total Score: 1 06/02/2017 9:34 AM APPRENTICE EMBALMER documented as of this encounter Care Teams Track Dresser Relationship Specialty Start Date End Date Tigre Preciado P.A.-C. PCP - General Family Medicine 10/11/[address] [place] [phone] documented as of this encounter
--- OUTSIDE RECORDS SUMMARY | 2022-02-13 09:16 | XMS_ITS | Encounter Summary ---
:1945 Author Organization [facility] Address [address] [place] [address] Care Team Providers Name Role Phone Tigre Preciado P.A.-C. Primary Care Provider [phone] Encounter Details Date Type Department Care Team Description 10/13/2019 Clinical Communication Department of [facility] Tigre Preciado, [facility] [place], Jeff Edmondson [facility], in [address] [address] [place], [place] [phone] [address] (Work) [phone] Social History Tobacco Use Types Packs/Day Years [...] this encounter Miscellaneous Notes Telephone Encounter - Soniya Martinez LEldaP.N. - 10/16/2019 11:41 AM CDT SUBJECTIVE CHIEF COMPLAINT / REASON FOR CALL No chief complaint on file. PLAN The following information was provided: Patient notified of the information as indicated. Call connected with industry operations investigator to set up lab only appointment Information/Education: patient/caller able to teach back The following references were used: provider Tigre DEAN Telephone Encounter - Nanda Wilkins - 10/13/2019 1:35 PM CDT Reason for Communication: pt called and scheduled a physical on 11/12 she would like labs prior. Current Phone Number: Can Nursing/Provider leave a detailed message: Did the patient refuse triage through Nurse line? (for symptom based concerns): Action Needed: Name of Medication (if relevant): documented in this encounter Plan of Treatment Not on filedocumented as of this encounter Results S-TSH (Thyroid-Stimulating Hormone - Sensitive) (11/08/2019 9:24 AM CDT) P athologist Signature TSH, Sensitive 4.0 0.3 - 4.2 11/08/2019 [place] mIU/L 11:17 AM CDT Comment: Biotin has been identified by the emilia aglloway as a potential interfering substance. ??Higher concentr ations of biotin may be found in multivitamins, hair/nail supple ments, and workout supplements. ??If the result does not [facility] clinical observations, repeat testing after patient refrains fr om the use of supplements for at least 12 hours. Specimen Anatomical Collection Method Collection Time Receive d Time (Source) Location / / Volume Laterality Blood (Blood, 11/08/2019 9:24 AM 11/08/19 20 Venous) CDT 10:26 AM CDT Tigre Preciado P.A.-C. LAB BLOOD ADD-ON Performing Organization Address City/State/ZIP Code Phon e Number [facility]- [address] [place] [address] [facility] [address] System in [place] [address] (ABNORMAL) Lipid Panel (11/08/2019 9:24 AM CDT) athologist Signature Cholesterol, 210 (H) mg/dL 11/08/2019 [...] Organization Address City/State/ZIP Code Phon e Number [facility]- [address] [place] [address] [facility] [place] [address] System in [place] [address] (ABNORMAL) Basic Metabolic Panel (11/08/2019 9:24 AM [...] CDT eGFR-Black/Afri 79 >=60 11/08/2019 [place] can [place] mL/min/BSA 4:18 PM CDT Comment: ----ADDITIONAL INFORMATION---- [...] Organization Address City/State/ZIP Code Phon e Number [facility]- [address] [place] [address] [place] [address] System in [place] [address] documented in this encounter Visit Diagnoses Diagnosis Screening Examination Diabetes Mellitus - Primary Encounter For Screening For Cardiovascul ar Disorders Screening Examination For Thyroid Disord er documented in this encounter Additional Health Concerns Assessment Noted Time PHQ-9 Depression Total Score: 1 06/02/2017 9:34 AM APPLICATION DBA documented as of this encounter Care Teams Manager Stylist Relationship Specialty Start Date End Date Tigre Preciado P.A.-C. PCP - General Family Medicine 10/11/[address] [place] [phone] documented as of this encounter
--- OUTSIDE RECORDS SUMMARY | 2022-02-13 09:16 | XMS_ITS | Encounter Summary ---
:1945 Author Organization [facility] Address [address] [place] [address] Care Team Providers Name Role Phone Tigre Preciado P.A.-C. Primary Care Provider [phone] Reason for Visit Reason Comments Follow-up [place] [facility] about mouth infecti on Appointment Request (Routine) - Closed Specialty Diagnoses / Procedures Referred By Contact Refer red To Contact Family Medicine Referral ID Status Reason Start Date Expiration Date Visits Requ ested Visits Authorized [id number] Closed 02/21/2020 02/20/2021 1 1 Encounter Details Date Type Department Care Team Description 02/21/2020 Office Visit Department of Family Tigre Preciado Ch eilitis Angular (Primary Dx); Medicine, Jeff Edmondson [facility], in [address] [address] [place], [place] [phone] [address] (Work) [phone] Social History Tobacco Use Types Packs/Day Years [...] Sign Reading Time Taken Comments Blood Pressure 146/60 02/21/2020 1:10 PM YARD GOODS SALESPERSON Pulse 86 02/21/2020 1:05 PM YARD GOODS SALESPERSON Temperature 36.7 ??C (98.1 ??F) 02/21/2020 1:05 PM YARD GOODS SALESPERSON Respiratory Rate 18 02/21/2020 1:05 PM YARD GOODS SALESPERSON Oxygen Saturation - - Inhaled Oxygen Concentration - - Weight 56.7 kg (125 lb) 02/21/2020 1:05 PM YARD GOODS SALESPERSON Height - - Body Mass Index 22.43 01/12/2020 10:06 AM CDT documented in this encounter Progress Notes Tigre Preciado P.A.-C. - 02/21/2020 1:30 PM CST CHIEF COMPLAINT / REASON FOR VISIT Isadora Back is a 74 y.o. female who presents for evaluation of Follow-up (From [facility] about mouth infection). HISTORY OF PRESENT ILLNESS Isadora was recently seen in same-day clinic and diagnosed with sialadenitis. She was started on antibiotic. Her symptoms have persisted. It has been there for a little over a week now. She also has a history of angular chelitis. She has been treating this and it seems to be getting better but has not yet resolved OBJECTIVE Vitals: 02/21/20 1305 02/21/20 1310 BP: 153/69 146/60 BP Location: Left arm Left arm Patient Position: Sitting Sitting Cuff Size: Regular Regular Pulse: 86 Resp: 18 Temp: 36.7 ??C TempSrc: Temporal Weight: 56.7 kg Body mass index is 22.43 kg/m??. PHYSICAL EXAM In general she appears in no acute distress. She does have some mild inflammation on the left side of her mouth. Oropharynx she has a few areas of small white sores both on the outside of her gums as well as on the inside under her tongue. More so on the left side. There are whitish small plaques. They were tender to the touch. IMPRESSION / REPORT / PLAN #1 Cheilitis Angular I am going to treat this for possible yeast I will have her use some nystatin if it does not resolveshe will let us know #2 Aphthous Ulcer We talked about the possible diagnoses. This does look like a thrush am hopeful that will respond tothe treatment with nystatin. It also could be aphthous ulcers and they should resolve on their own. If it does not completely resolve within the next 1-2 weeks she will let us know and I will probably have her follow-up with ENT for possible biopsy. Tigre Preciado P.A.-C. GOODS SALESPERSON documented in this encounter Plan of Treatment Not on filedocumented as of this encounter Visit Diagnoses Diagnosis Cheilitis Angular - Primary Aphthous Ulcer documented in this encounter Additional Health Concerns Assessment Noted Time PHQ-9 Depression Total Score: 1 06/02/2017 9:34 AM YARD GOODS SALESPERSON documented as of this encounter Care Teams Public Address Technician Relationship Specialty Start Date End Date Tigre Preciado P.A.-C. PCP - General Family Medicine 10/11/19 [address] [place] [address] documented as of this encounter
--- OUTSIDE RECORDS SUMMARY | 2022-02-13 09:16 | XMS_ITS | Encounter Summary ---
:1945 Author Organization [facility] Address [address] [place] [address] Care Team Providers Name Role Phone Tigre Preciado P.A.-C. Primary Care Provider [phone] Encounter Details Date Type Department Care Team Description 10/16/2019 Clinical Communication Department of [facility] Tigre Preciado, [facility], Jeff Edmondson [facility], in [address] [address] [place] [phone] (Work) [phone] Social History Tobacco Use Types Packs/Day Years [...] encounter Miscellaneous Notes Telephone Encounter - Claudia Rodriguez - 10/16/2019 11:44 AM CDT ([facility] and [facility] locations only: If the patient is not having symptoms and is requesting COVID-19 Nasal Swab testing only, use the process listed in the COVID-19 Patient Requesting COVID PCR Test OTG COVID-19 [place] Patient Requesting COVID PCR Test). In the past 30 days have you had a swab for COVID that tested positive? no Route reply to: Scheduling Contact Number: [phone] documented in this encounter Plan of Treatment Not on filedocumented as of this encounter Visit Diagnoses Not on filedocumented in this encounter Additional Health Concerns Assessment Noted Time PHQ-9 Depression Total Score: 1 06/02/2017 9:34 AM NEWSPAPER DELIVERER documented as of this encounter Care Teams Police Officer Crime Prevention Relationship Specialty Start Date End Date Tigre Preciado P.A.-C. PCP - General Family Medicine 10/11/19 [address] [place] [phone] documented as of this encounter
--- OUTSIDE RECORDS SUMMARY | 2022-02-13 09:17 | XMS_ITS | Encounter Summary ---
:[address] [facility] Address [address] [place] [address] Care Team Providers Name Role Phone Luisa Roy M.D. Primary Care Provider Reason for Visit Reason Comments Communication Encounter Details Date Type Department Care Team Description 05/28/2017 Clinical Communication Department of [facility] Beka Trimble [facility] Medicine, Luisa Mendoza, [facility], in [place] [address] [facility] [place] [phone] Social History Tobacco Use Types Packs/Day Years [...] encounter Miscellaneous Notes Telephone Encounter - Claudia Harden R.N. - 05/28/2017 2:56 PM CST Patient notified of recommendation. She will cone picker prescription. ER/INSTALLER Telephone Encounter - Claudia Harden R.N. - 05/28/2017 2:54 PM CST Images from the original note were not included. Tigre Preciado P.A.-C. ??You 1 hour ago (1:42 PM) I called in [facility] for her (Routing comment) ER/INSTALLER Telephone Encounter - Claudia Rodriguez - 05/28/2017 12:47 PM CST Patient called in and still has a blocked ear and has a lot of drainage and bringing up a lot of stuff and her teeth hurt. Please call her back at [phone] or [phone](no voicemail) She wouldlike to know what she should do. ER/INSTALLER documented in this encounter Plan of Treatment Not on filedocumented as of this encounter Visit Diagnoses Not on filedocumented in this encounter Care Teams Baggage Agent Supervisor Relationship Specialty Start Date End Date Luisa Roy M.D. PCP - General 10/01/16 10/10/[address] [phone] documented as of this encounter
--- OUTSIDE RECORDS SUMMARY | 2022-02-13 09:17 | XMS_ITS | Encounter Summary ---
:1945 Author Organization [facility] Address [address] [place] [address] Care Team Providers Name Role Phone Luisa Roy M.D. Primary Care Provider [phone] Reason for Visit Reason Comments Gynecologic Exam patient states it feels like my bladder is falling into my nicolas x 2 weeks and also noting pa in in uretha Appointment Request (Routine) - Closed Specialty Diagnoses / Procedures Referred By Contact Refer red To Contact Family Medicine Referral ID Status Reason Start Date Expiration Date Visits Requ ested Visits Authorized [id number] Closed 01/03/2018 01/03/2019 1 Encounter Details Date Type Department Care Team Description 01/14/2018 Office Visit Department of Family [place] axation Pelvic Floor (Primary Dx); Medicine, Luisa Connolly, [facility], in Jac[place] Aguilar [place] [address] [place] [phone] Social History Tobacco Use Types Packs/Day Years [...] Sign Reading Time Taken Comments Blood Pressure 128/62 01/14/2018 10:17 AM CDT Pulse 80 01/14/2018 10:17 AM CDT Temperature 36.7 ??C (98.1 ??F) 01/14/2018 10:17 AM CDT Respiratory Rate 16 01/14/2018 10:17 AM CDT Oxygen Saturation - - Inhaled Oxygen Concentration - - Weight 57.2 kg (125 lb 15.9 oz) 01/14/2018 10:17 AM CDT Height 159 cm (5' 2.6) 01/14/2018 10:17 AM CDT Body Mass Index 22.61 01/14/2018 10:17 AM CDT documented in this encounter Progress Notes Luisa Roy M.D. - 01/14/2018 10:15 AM CDT SUBJECTIVE CHIEF COMPLAINT / REASON FOR VISIT Isadora Back is a 72 y.o. female who presents for evaluation of Gynecologic Exam (patient states it feels like my bladder is falling into my nicolas x 2 weeks and also noting pain in uretha). HISTORY OF PRESENT ILLNESS Isadora Back comes in with complaints of a feeling of fullness in her vagina and wonders if her bladder is falling. She has had a similar sensation for few years but now feels that the bulge is bigger than it used to be. She is not having any problems with incontinence. She is not having any problems emptying, starting or stopping. She and has not had any stool problem, constipation or hemorrhoids. She has had 3 pregnancies and vaginal deliveries. She has also noticed a stinging sensation with urination. OBJECTIVE BP 128/62 Pulse 80 Temp 36.7 ??C (Temporal) Resp 16 Ht 159 cm Wt 57.2 kg LMP (LMP Unknown) BMI 22.61 kg/m?? PHYSICAL EXAM GENERAL: Patient is alert and oriented, well groomed and appropriately dressed. HEENT: TMS are both normal. Nasal mucosa is normal without congestion or discharge. Oropharynx is without erythema or exudate. NECK: Without adenopathy, thyromegaly or carotid bruits. HEART: Regular rate and rhythm without murmur. LUNGS: Clear without wheeze crackle or rhonchus. GENITALIA: No lesions on the external genitalia. There is a moderate cystocele well recumbent and bearing down it descends to but not below the vaginal opening. There is a tiny urethral prolapse. EXTREMITIES: Normal without edema. SKIN: No rashes or unusual lesions on exposed skin. ASSESSMENT / PLAN #1 Relaxation Pelvic Floor It is not particularly bothersome but will probably become so later on. We could consider vaginal estrogen. Consider slusher operator consult. #2 Dysuria This is likely secondary to the small urethral prolapse. UA UC are obtained to rule out infection. Other orders - Urinalysis with Microscopic if Indicated - Bacterial Culture, Aerobic + Susc, Urine - Microscopic Manual documented in this encounter Plan of Treatment Not on filedocumented as of this encounter Procedures Procedure Name Priority Date/Time Associated Comments Diagnosis URINALYSIS WITH Routine 01/14/2018 11:10 Relaxation Pelvic Res ults for this MICROSCOPIC IF AM CDT Floor procedure are in INDICATED, U Dysuria the results section. MICROSCOPIC MANUAL Routine 01/14/2018 11:10 Resul ts for this AM CDT procedure are i n the results section. BACTERIAL CULTURE, Routine 01/14/2018 11:10 Relaxation Pelvic Results for this AEROBIC + SUSC, URINE AM CDT Floor procedure are in Dysuria the results section. documented in this encounter Results Microscopic Manual (01/14/2018 11:10 AM CDT) P athologist Signature White Blood Occ-3 /hpf 01/14/2018 [facility] Cells 11:43 AM CDT [facility]ENIXGen4 [facility]PLA[facility] Comment: ----REFERENCE VALUE---- Males: 0-3 Females: 0-10 Unknown: 0-10 Red Blood Cells None Seen 0 - 2 /hpf 01/14/2018 11:43 AM CDT [facility] [place] B Specimen Anatomical Collection Method Collection Time Receive d Time (Source) Location / / Volume Laterality Urine 01/14/2018 11:10 01/14/2018 AM CDT 11:29 AM CDT Luisa Roy M.D. LAB URINE ORDERABLES Performing Organization Address City/[facility]/ZIP Code Phon e Number [facility]- [address] [place] [id number] [place] [facility]- [address] [place] [address] [facility] Bacterial Culture, Aerobic + Susc, Urine (01/14/2018 11:10 AM CDT) [facility] gist Method Time Signature Bacterial No growth 01/15/2018 [facility] Culture, after 1 day 4:12 PM CDT [facility] Aerobic, Urine of SYSTEM- [facility] LAB Specimen Anatomical Collection Method Collection Time Receive d Time (Source) Location / / Volume Laterality Urine (Urine, 01/14/2018 11:10 01/14/2018 6:53 Midstream) AM CDT PM CDT Comment: Specimen Source Site: Urine Mid stream Luisa Roy M.D. LAB MICROBIOLOGY - GEN ERAL ORDERABLES Performing Organization Address City/State/ZIP Code Phon e Number [facility] [address] [place] [address] LAB (ABNORMAL) Urinalysis with Microscopic if Indicated (01/14/2018 11:10 AM CDT) P athologist Signature Source Midstream 01/14/2018 [facility] 11:29 AM [facility] Clarity Clear Clear 01/14/2018 [facility] 11:29 AM [facility] Color Yellow 01/14/2018 [facility] 11:29 AM [facility] Comment: ----REFERENCE VALUE---- Colorless Yellow [place] Blood Negative Negative 01/14/2018 11:29 AM [facility] [place] B Nitrite Negative Negative 01/14/2018 11:29 AM [facility] [place] B Leukocyte Esterase Trace (A) Negative 01/14/2018 11:29 AM [facility] [place] B Protein Negative mg/dL 01/14/2018 11:29 AM [facility] [place] B Comment: ----REFERENCE VALUE---- Negative Trace Glucose Negative Negative mg/dL 01/14/2018 11:29 AM [facility] Ketones, QI(U) Negative Negative mg/dL 01/14/2018 11:29 AM [facility] Bilirubin Negative Negative 01/14/2018 11:29 AM [facility] pH 7.0 5.0 - 8.0 01/14/2018 11:29 AM [facility] Specific [place] 1.015 1.001 - 1.035 01/14/2018 11:29 AM [facility] Urobilinogen 0.2 0.2 - 1.0 mg/dL 01/14/2018 11:29 AM [facility] Specimen Anatomical Collection Method Collection Time Receive d Time (Source) Location / / Volume Laterality Urine (Urine, 01/14/2018 11:10 01/14/2018 Clean Catch) AM CDT 11:18 AM CDT Luisa Roy M.D. LAB URINE ORDERABLES Performing Organization Address City/State/ZIP Code Phon e Number [facility] State [place] [address] [place] [facility] [address] [facility] DEJA Agu[place] [address], [facility] documented in this encounter Visit Diagnoses Diagnosis Relaxation Pelvic Floor - Primary Dysuria documented in this encounter Additional Health Concerns Assessment Noted Time PHQ-9 Depression Total Score: 1 06/02/2017 9:34 AM PALEOLOGIST documented as of this encounter Care Teams Marketing Program Manager Relationship Specialty Start Date End Date Luisa Roy M.D. PCP - General 10/01/16 10/10/19 [address] [phone] documented as of this encounter
--- OUTSIDE RECORDS SUMMARY | 2022-02-13 09:17 | XMS_ITS | Encounter Summary ---
:1945 Author Organization [facility] Address [address] [place] [address] Care Team Providers Name Role Phone Luisa Roy M.D. Primary Care Provider [phone] Reason for Visit Reason Comments Follow-up review dexa scan findings co mpleted on 07/01/2017 Appointment Request (Routine) - Closed Specialty Diagnoses / Procedures Referred By Contact Refer red To Contact Family Medicine Referral ID Status Reason Start Date Expiration Date Visits Requ ested Visits Authorized [id number] Closed 07/05/2017 01/01/2018 1 Encounter Details Date Type Department Care Team Description 07/20/2017 Office Visit Department of Family [place] Ost eoporosis (Primary Dx); Medicine, Luisa Connolly, Octavio s; Clinic, in [place] [facility] [address] [place] [phone] Social History Tobacco Use Types Packs/Day [...] Sign Reading Time Taken Comments Blood Pressure 138/72 07/20/2017 1:17 PM CDT Pulse 84 07/20/2017 1:13 PM CDT Temperature 37.1 ??C (98.8 ??F) 07/20/2017 1:13 PM CDT Respiratory Rate 16 07/20/2017 1:13 PM CDT Oxygen Saturation - - Inhaled Oxygen Concentration - - Weight 56.9 kg (125 lb 7.1 oz) 07/20/2017 1:13 PM CDT Height 159 cm (5' 2.6) 07/20/2017 1:13 PM CDT Body Mass Index 22.51 07/20/2017 1:13 PM CDT documented in this encounter Patient Instructions Patient InstructionsLuisa Roy M.D. - 07/20/2017 1:30 PM CDT We discussed management of your osteoporosis and considered four options. 1. Do nothing 2. Continue calcium 1200 mg daily, vitamin D 1000 IU daily, and daily weight bearing exercise. 3. Restart a bisphosphonate like Fosamax 4. See an chief engineer production to discus other injectable options You have chosen to continue with your current course of treatment. We'll check another bone density test in 2 years. I sent a prescription for 3 azithromycin pills to finish up a 5 day course of treatment for sinus infection. I popped out a little bead of sebum ( sebaceous cyst ) from your left cheek. Keep this covered with ointment and guaze and let me know it there are any problems. documented in this encounter Progress Notes Luisa Roy M.D. - 07/20/2017 1:30 PM CDT CHIEF COMPLAINT/ REASON FOR VISIT Review bone density scan results. HISTORY OF PRESENT ILLNESS Isadora Back is a 72 y.o. female who presents to the clinic today for review bone density scan results. She had a bone density scan on 07/01/2017 and I asked her to followup to review those results. The T-score of her hips was -2.7 which puts her in range of osteoporosis. She was seen at an outside clinic urgent care recently and diagnosed with a sinus infection. Isadora was treated with Augmentin but wasn???t able to tolerate the medication. She had 3 pills of Azithromycin at home and started taking these and would like to complete a course of Zithromax. She pointed out a small nodule on the left upper cheek that has been bothering her for a few years and wonders what can be done about it. The patient denies any additional questions or concerns at this time. SYSTEMS REVIEW Please see HPI for pertinent positives, otherwise rest of ROS negative. MEDICATIONS Current Outpatient Prescriptions Medication Sig Dispense Refill ??? albuterol (PROAIR [...] Take 1 tablet by mouth. ??? SUMAtriptan (for_IMITREX) 25 mg tablet TAKE 1 TABLET BY MOUTH FOR 1 DOSE NEEDED FOR MIGRAINE.MAY REPEAT AFTER 1 HOUR IF NEEDED 9 tablet 5 ??? amoxicillin-pot clavulanate (for_AUGMENTIN) 875-125 mg per tablet Take 1 tablet by mouth. ??? azithromycin (for_ZITHROMAX) 250 mg tablet Take one tab daily for 3 days to finish up a 5 day course. 3 tablet 0 ??? fluticasone (for_FLONASE) 50 mcg/actuation nasal spray Administer 2 sprays into each nostril daily. (Patient not taking: Reported on 07/20/2017 ) 16 g 0 No current facility-administered medications for this visit. ALLERGIES Allergies Allergen Reactions ??? Ceftin [Cefuroxime Axetil] GI intolerance ??? Ciprofloxacin Tendonitis ??? Fluconazole Other (see comments) and Anaphylaxis ??? Latex Rash ??? Lidocaine-Epinephrine Palpitations ??? Metronidazole Tendonitis ??? Sulfa (Sulfonamide Antibiotics) Nausea Only PAST MEDICAL / SURGICAL HISTORY Past Medical History: Diagnosis Date ??? Anxiety ??? Asthma NOS ??? Diverticulosis with one episode of diverticulitis ??? Fasciitis Plantar ??? Migraine Headache ??? Osteoporosis 06/2017 ??? Pain Neck ??? Polyp Colon Personal History ??? Tendonitis Of the right knee which she believes was secondary to Levaquin. Past Surgical History: Procedure Laterality Date ??? BREAST BIOPSY Right OK ??? COLONOSCOPY W/ OR W/O BIOPSY 11/10/[address] Eric Cabrera who recommended repeat in 5 years. ??? DILATION AND CURETTAGE OF UTERUS at age 15 for menorrhagia ??? LAPAROSCOPIC CHOLECYSTECTOMY N/A 2007 Laparoscopic cholecystectomy ??? LUMPECTOMY BREAST Right ??? VAGINAL DELIVERY x 3 PREVENTIVE SERVICES Social History Substance Use Topics ??? Smoking status: Former Smoker Quit date: 1967 ??? Smokeless tobacco: Never Used ??? Alcohol use 3.0 oz/week 5 Glasses of wine per week VITAL SIGNS Vitals: 07/20/17 1313 07/20/17 1317 BP: 146/78 138/72 Pulse: 84 Temp: 37.1 ??C Resp: 16 Height: 159 cm Weight: 56.9 kg TempSrc: Temporal PHYSICAL EXAMINATION General: Patient is alert and oriented times three, in no acute distress, good hygiene and is dressed appropriately. Skin: Overlying the mid maxilla on the left is a small subcutaneous nodule, mobile, consistent with a milium. This was cleansed with betadine and the overlying skin was unroofed and a small, approximately 2 mm milium was extruded. ASSESSMENT / PLAN #1 Osteoporosis Management was discussed with the patient and the following four options were considered: 1. Do nothing 2. Continue calcium 1200 mg daily, vitamin D 1000 IU daily, and daily weight bearing exercise. 3. Restart a bisphosphonate like Fosamax. 4. See an chief engineer production to discus other injectable options. The patient decided to continue with option 2 at this time. She will need a bone density scan again in 2 years. #2 Sinusitis A prescription was sent to her pharmacy for #3 tablets of Azithromycin 250 mg in order to complete a5-day course of Zithromax. #3 Milium, left cheek See above. I recommended keeping this covered with antibiotic ointment and gauze. She will notify ifshe has any difficulty. Follow up The patient will contact the clinic with any new or worsening symptoms. This document serves as a record of services personally performed by Luisa Ireland MD. It was created on their behalf by Beryl Augustine, a trained medical coding specialist. The creation of this record is based on the scribe's personal observations and the provider's statements to them. This document has been arti cked and approved by the attending provider. documented in this encounter Plan of Treatment Not on filedocumented as of this encounter Visit Diagnoses Diagnosis Osteoporosis - Primary Sinusitis Milium Colloid documented in this encounter Additional Health Concerns Assessment Noted Time PHQ-9 Depression Total Score: 1 06/02/2017 9:34 AM TOOL DISTRIBUTOR documented as of this encounter Care Teams Soil Specialist Relationship Specialty Start Date End Date Luisa Roy M.D. PCP - General 10/01/16 10/10/[address] [phone] documented as of this encounter
--- OUTSIDE RECORDS SUMMARY | 2022-02-13 09:17 | XMS_ITS | Encounter Summary ---
:1945 Author Organization [facility] Address [address] [place] [address] Care Team Providers Name Role Phone Luisa Roy M.D. Primary Care Provider [phone] Reason for Visit Reason Comments Vaginal Pain patient wishes to discuss re occurring sharp pain of uretha, she has experienced Appointment Request (Routine) - Closed Specialty Diagnoses / Procedures Referred By Contact Refer red To Contact Family Medicine Referral ID Status Reason Start Date Expiration Date Visits Requ ested Visits Authorized [id number] Closed 10/17/2018 10/17/2019 1 1 Encounter Details Date Type Department Care Team Description 10/24/2018 Office Visit Department of Family Gertrude lira (Primary Dx) Medicine, [place] Luisa thomson M.D. [facility], in [facility] [address] [place], [place] [address] [facility] [address] [place], [place] [phone] (Work) [phone] Social History Tobacco Use Types Packs/Day Years [...] Sign Reading Time Taken Comments Blood Pressure 110/70 10/24/2018 2:56 PM CDT Pulse 76 10/24/2018 2:56 PM CDT Temperature 36.6 ??C (97.9 ??F) 10/24/2018 2:56 PM CDT Respiratory Rate 16 10/24/2018 2:56 PM CDT Oxygen Saturation - - Inhaled Oxygen Concentration - - Weight 57.3 kg (126 lb 6.9 oz) 10/24/2018 2:56 PM CDT Height 159.5 cm (5' 2.8) 10/24/2018 2:56 PM CDT Body Mass Index 22.54 10/24/2018 2:56 PM CDT documented in this encounter Progress Notes Luisa Roy M.D. - 10/24/2018 2:30 PM CDT SUBJECTIVE Chief Complaint Patient presents with ??? Vaginal Pain patient wishes to discuss reoccurring sharp pain of uretha, she has experienced HISTORY OF PRESENT ILLNESS Isadora Back is a 73 y.o. female who presents to the clinic today for evaluation of a vaginal pain. The patient states that she is experiencing intermittent stabbing sensation in urethra that occurs every few weeks and lasts a few days at time. There is nothing that precipitates it. Isadora relieves itby using cranberry. The symptoms do not necessarily occur with urinating. The patient denies any additional questions or concerns at this time. REVIEW OF SYSTEMS Please see HPI for pertinent positives, otherwise rest of ROS negative. CURRENT MEDICATIONS Current Outpatient Medications Medication Sig Dispense Refill [...] mouth. ??? SUMAtriptan (IMITREX) 25 mg tablet TAKE 1 TABLET BY MOUTH FOR 1 DOSE NEEDED FOR MIGRAINE. MAYREPEAT AFTER 1 HOUR IF NEEDED 9 tablet 5 ??? vitamin A,C,N-zghhpo-jnhrkpvt (OCUVITE W/LUTEIN) 1,000 Unit-200 mg-60 Unit-2 mg tablet Take 1 tablet by mouth daily. ??? cyanocobalamin (vitamin B-12) 100 mcg tablet Take 100 mcg by mouth daily. ??? fluticasone (for_FLONASE) 50 mcg/actuation nasal spray Administer 2 sprays into each nostril daily. (Patient not taking: Reported on 07/20/2017 ) 16 g 0 No current facility-administered medications for this visit. ALLERGIES / CONTRAINDICATIONS Allergies Allergen Reactions ??? Fluconazole Other (see comments) and Anaphylaxis Lip blister, throat closing ??? Cefuroxime Axetil GI intolerance Other reaction(s): GI Upset ??? Azithromycin Nausea Only and GI intolerance Mood changes Other reaction(s): Headache Mood changes ??? Ciprofloxacin Tendonitis Other reaction(s): Myalgia ??? Latex Rash ??? Lidocaine-Epinephrine Palpitations ??? Metronidazole Tendonitis Other reaction(s): Myalgia ??? Sulfa (Sulfonamide Antibiotics) Nausea Only MEDICAL HISTORY Past Medical History: Diagnosis Date ??? Anxiety ??? Asthma NOS ??? Diverticulosis with one episode of diverticulitis ??? Fasciitis Plantar ??? Migraine Headache ??? Osteoporosis 06/2017 ??? Pain Neck ??? Polyp Colon Personal History ??? Tendonitis Of the right knee which she believes was secondary to Levaquin. SURGICAL HISTORY Past Surgical History: Procedure Laterality Date ??? BREAST BIOPSY Right 1990s [place] ??? COLONOSCOPY W/ OR W/O BIOPSY 11/10/[address] Eric Cabrera who recommended repeat in 5 years. ??? DILATION AND CURETTAGE OF UTERUS at age 15 for menorrhagia ??? LAPAROSCOPIC CHOLECYSTECTOMY N/A 2007 Laparoscopic cholecystectomy ??? LUMPECTOMY BREAST Right ??? VAGINAL DELIVERY 1974 1976 1978 x 3 PREVENTIVE SERVICES: SOCIAL HISTORY Social History Tobacco Use ??? Smoking status: Former Smoker Last attempt to quit: 1968 Years since quittin.5 ??? Smokeless tobacco: Never Used Substance Use Topics ??? Alcohol use: Yes Alcohol/week: 5.0 standard drinks Types: 5 Glasses of wine per week ??? Drug use: No OBJECTIVE VITAL SIGNS BP 110/70 Pulse 76 Temp 36.6 ??C (Temporal) Resp 16 Ht 159.5 cm Wt 57.3 kg LMP (LMP Unknown) BMI 22.54 kg/m?? PHYSICAL EXAMINATION General: Patient is alert and oriented times three, in no acute distress, good hygiene and is dressed appropriately. Heart: Regular rate and rhythm without murmur. Lungs: Clear to auscultation. Abdomen: Soft and nontender with no masses. Pelvic: There is a tiny urethra caruncle noted. Otherwise pelvic examination is unremarkable. Extremities: Within normal limits. Skin: No rashes or suspicious lesions noted on exposed skin. ASSESSMENT / PLAN #1. Dysuria. PLAN: the following studies are performed today: - Bacterial Culture, Aerobic + Susc, Urine - Urinalysis with Microscopic if Indicated The patient will be notified of the results when available and provided with further recommendationsat that time. #2. Follow up PLAN: The patient will contact the clinic with any new or worsening symptoms. This document serves as a record of services personally performed by Dr. Liusa Ireland. It was created on their behalf by Yessenia Vail, a trained medical billing assistant. The creation of this record is based on the scribe's personal observations and the provider's statements to them. This document has been checked and approved by the attending provider. documented in this encounter Plan of Treatment Not on filedocumented as of this encounter Procedures Procedure Name Priority Date/Time Associated Comments Diagnosis URINALYSIS WITH Routine 10/24/2018 3:46 PM Dysuria Result s for this MICROSCOPIC IF CDT procedure are in INDICATED, U the results section. MO URINALYSIS AUTO WO Routine 10/24/2018 3:46 PM Results for this MICRO CDT procedure are i n the results section. BACTERIAL CULTURE, Routine 10/24/2018 3:46 PM Dysuria Res ults for this AEROBIC + SUSC, URINE CDT proced ure are in the results section. documented in this encounter Results Microscopic Manual (10/24/2018 3:46 PM CDT) athologist Signature White Blood Occ-3 /hpf 10/24/2018 Cells 4:03 PM CDT Comment: ----REFERENCE VALUE---- Males: 0-3 Females: 0-10 Unknown: 0-10 Red Blood Cells Occ-2 0 - 2 /hpf 10/24/2018 4:03 PM CDT Specimen Anatomical Collection Method Collection Time Receive d Time (Source) Location / / Volume Laterality Urine 10/24/2018 3:46 PM 9 3:53 CDT PM CDT Luisa Roy M.D. LAB URINE ORDERABLES Performing Organization Address City/State/ZIP Code Phon e Number [facility] [address] [address] LAB (ABNORMAL) Urinalysis with Microscopic if Indicated (10/24/2018 3:46 PM CDT) athologist Signature Source Midstream 10/24/2018 3:57 PM CDT Clarity Clear Clear 10/24/2018 3:57 PM CDT Color Yellow 10/24/2018 3:57 PM CDT Comment: ----REFERENCE VALUE---- Colorless Yellow Ny Blood Negative Negative 10/24/2018 3:57 PM CDT Nitrite Negative Negative 10/24/2018 3:57 PM CDT Leukocyte Esterase Trace (A) Negative 10/24/2018 3:57 PM CD T Protein Negative mg/dL 10/24/2018 3:57 PM CDT Comment: ----REFERENCE VALUE---- Negative Trace Glucose Negative Negative mg/dL 10/24/2018 3:57 PM CDT Ketones, QI(U) Negative Negative mg/dL 10/24/2018 3:57 PM C DT Bilirubin Negative Negative 10/24/2018 3:57 PM CDT pH 7.0 5.0 - 8.0 10/24/2018 3:57 PM CDT Specific [place] 1.010 1.001 - 1.035 10/24/2018 3:57 PM CDT Urobilinogen 0.2 0.2 - 1.0 mg/dL 10/24/2018 3:57 PM CD T Specimen Anatomical Collection Method Collection Time Receive d Time (Source) Location / / Volume Laterality Urine (Urine, 10/24/2018 3:46 PM 10/25/19 19 3:53 Clean Catch) CDT PM CDT Luisa Roy M.D. LAB URINE ORDERABLES Performing Organization Address City/[facility]/ZIP Code Phon e Number [address] [address] LAB Bacterial Culture, Aerobic + Susc, Urine (10/24/2018 3:46 PM CDT) [facility] Method Time Signature Urine Culture No growth 10/25/2018 after 1 day 4:47 PM CDT of incubation. Specimen Anatomical Collection Method Collection Time Receive d Time (Source) Location / / Volume Laterality Urine (Urine, 10/24/2018 3:46 PM 10/25/19 19 6:56 Midstream) CDT PM CDT Comment: Specimen Source Site: Urine Luisa Roy M.D. LAB MICROBIOLOGY - GEN ERAL ORDERABLES Performing Organization Address City/State/ZIP Code Phon e Number [facility] [address] [place] [address] LAB documented in this encounter Visit Diagnoses Diagnosis Dysuria - Primary documented in this encounter Additional Health Concerns Assessment Noted Time PHQ-9 Depression Total Score: 1 06/02/2017 9:34 AM CHUCK WAGON COOK documented as of this encounter Care Teams Underground Miner Relationship Specialty Start Date End Date Luisa Roy M.D. PCP - General 10/01/16 10/10/[address] [phone] documented as of this encounter
--- OUTSIDE RECORDS SUMMARY | 2022-02-13 09:17 | XMS_ITS | Encounter Summary ---
:1945 Author Organization [facility] Address [address] [place] [address] Care Team Providers Name Role Phone Luisa Roy M.D. Primary Care Provider [phone] Reason for Visit Reason Comments Earache Right ear pain, swollen lymp h nodes Encounter Details Date Type Department Care Team Description 06/30/2017 Office Visit Department of Family Christian Tesfaye Post Nasal (Primary Dx); Medicine, Alice CraneSElda, Hearing Disorder Right Clinic, in [facility] [address] [facility] [address] [place] [phone] Social History Tobacco Use Types Packs/Day [...] Sign Reading Time Taken Comments Blood Pressure 120/84 06/30/2017 11:40 AM CDT Pulse 72 06/30/2017 11:40 AM CDT Temperature 37.1 ??C (98.8 ??F) 06/30/2017 11:40 AM CDT Respiratory Rate 16 06/30/2017 11:40 AM CDT Oxygen Saturation - - Inhaled Oxygen Concentration - - Weight 57.3 kg (126 lb 6.9 oz) 06/30/2017 11:40 AM CDT Height 159 cm (5' 2.6) 06/30/2017 11:40 AM CDT Body Mass Index 22.69 06/30/2017 11:40 AM CDT documented in this encounter H&P Notes Christian Tesfaye M.D., M.B.B.S. - 06/30/2017 11:45 AM CDT SUBJECTIVE CHIEF COMPLAINT / REASON FOR VISIT Isadora Back is a 72 y.o. female who presents for evaluation of Earache (Right ear pain, swollen lymph nodes). HISTORY OF PRESENT ILLNESS Patient is here with 2 month history of right ear ache. There's also has associated reduced hearing (she describes it as muffled hearing). Patient denies tinnitus, vertigo or ear discharge. She has hadno fever or chills. Two weeks ago patient had her ears cleaned but this did not help. Symptoms began after she recovered from an influenza infection. She reports postnasal drip with associated nighttime coughing. She also reports a sinus congestion. She denies any cough, fatigue or shortness of breath. She denies any headaches or focal weakness. The following portions of the patient's history were reviewed and updated as appropriate: allergies,current medications, family history, medical history, social history, surgical history and problem list. REVIEW OF SYSTEMS Pertinent items are noted in HPI. OBJECTIVE BP 120/84 (BP Location: Right arm, Patient Position: Sitting, Cuff Size: Regular) Pulse 72 Temp 37.1 ??C Resp 16 Ht 159 cm Wt 57.3 kg LMP (LMP Unknown) BMI 22.69 kg/m?? PHYSICAL EXAM General Appearance: healthy, alert, no distress, cooperative. Head: normocephalic, no masses, lesions, tenderness or abnormalities. Ears: external ears normal, canals clear, TM's normal. Oropharynx: lips, mucosa, and tongue normal, teeth and gums normal, oropharynx normal. Neck: positive findings: moderate anterior cervical nodes. ASSESSMENT / PLAN #1 Drip Post Nasal #2 Hearing Disorder Right Patient's symptoms are most likely associated with a postnasal drip which would control. I have recommended 2 weeks of intranasal steroids twice a day. If symptoms do not improve patient should return for re-evaluation. documented in this encounter Plan of Treatment Not on filedocumented as of this encounter Visit Diagnoses Diagnosis Drip Post Nasal - Primary Hearing Disorder Right documented in this encounter Additional Health Concerns Assessment Noted Time PHQ-9 Depression Total Score: 1 06/02/2017 9:34 AM TODDLER CAREGIVER documented as of this encounter Care Teams Campus Supervisor Relationship Specialty Start Date End Date Luisa Roy M.D. PCP - General 10/01/16 10/10/19 [address] [place] [phone] documented as of this encounter
--- OUTSIDE RECORDS SUMMARY | 2022-02-13 09:17 | XMS_ITS | Encounter Summary ---
:1945 Author Organization [facility] Address [address] [place] [address] Care Team Providers Name Role Phone Luisa Roy M.D. Primary Care Provider Reason for Referral Outpatient (Routine) - Closed Specialty Diagnoses / Procedures Referred By Contact Refer red To Contact Otorhinolaryngology Diagnoses Loss Hearing Bilateral Scot Chavarria Judy, M.D. M.D. [address] [place], [place] [phone] Referral ID Status Reason Start Date Expiration Visits Visits Date Requested Authorized [id number] Closed Patient 08/24/2017 02/20/2018 1 1 Preference Encounter Details Date Type Department Care Team Description 08/24/2017 Orders Only Department of [facility] [place] rose Hearing Bilateral Medicine, Luisa Connolly, (Primary Dx) Clinic, in [place] [facility] [address] [place] [phone] Social History Tobacco Use Types Packs/Day Years [...] as of this encounter Visit Diagnoses Diagnosis Loss Hearing Bilateral - Primary documented in this encounter Additional Health Concerns Assessment Noted Time PHQ-9 Depression Total Score: 1 06/02/2017 9:34 AM RESTORATION TECHNICIAN documented as of this encounter Care Teams Lombardi Developer Relationship Specialty Start Date End Date Luisa Roy M.D. PCP - General 10/01/16 10/10/19 [address] [place] [address] documented as of this encounter
--- OUTSIDE RECORDS SUMMARY | 2022-02-13 09:17 | XMS_ITS | Encounter Summary ---
:1945 Author Organization [facility] Address [address] [place] [address] Care Team Providers Name Role Phone Luisa Roy M.D. Primary Care Provider [phone] Reason for Visit Reason Comments Med Refill Encounter Details Date Type Department Care Team Description 05/24/2017 Refill Department of Family Medicine, [facility] Refill [facility], in Luisa Aguilar M.D. [place] [address] [phone] [place] [address] [phone] Social History Tobacco Use Types Packs/Day Years [...] on filedocumented in this encounter Care Teams Learning Analyst Relationship Specialty Start Date End Date Luisa Roy M.D. PCP - General 10/01/16 10/10/[address] [phone] documented as of this encounter
--- OUTSIDE RECORDS SUMMARY | 2022-02-13 09:17 | XMS_ITS | Encounter Summary ---
:1945 Author Organization [facility] Address [address] [place] [address] Care Team Providers Name Role Phone Luisa Roy M.D. Primary Care Provider [phone] Reason for Visit Reason Comments Follow-up right ear, states not better , states now the left ear is starting to bug her. Encounter Details Date Type Department Care Team Description 07/08/2017 Office Visit Department of Tigre Simon Eu stach[facility] T[facility] in [place], P.A.-C. Disorder Right [place] [address] [facility] (Primary Dx) [address] [place] [phone] Social History Tobacco Use Types Packs/Day Years [...] Sign Reading Time Taken Comments Blood Pressure 122/76 07/08/2017 12:54 PM CDT Pulse 87 07/08/2017 12:54 PM CDT Temperature 37.1 ??C (98.8 ??F) 07/08/2017 12:54 PM CDT Respiratory Rate 16 07/08/2017 12:54 PM CDT Oxygen Saturation 99% 07/08/2017 12:54 PM CDT Inhaled Oxygen Concentration - - Weight 56.1 kg (123 lb 10.9 oz) 07/08/2017 12:54 PM CDT Height - - Body Mass Index 22.19 06/30/2017 11:40 AM CDT documented in this encounter Progress Notes Tigre Preciado P.A.-C. - 07/08/2017 1:00 PM CDT CHIEF COMPLAINT / REASON FOR VISIT Isadora Back is a 72 y.o. female who presents for evaluation of Follow-up (right ear, states not better, states now the left ear is starting to bug her.). HISTORY OF PRESENT ILLNESS Isadora presents today because of ongoing difficulty hearing in her right ear. This been going on for almost 3 months now following her influenza. She had ear wax irrigated from a year she has tried Afrinwithout much success she did see Dr. Tesfaye who recommended she try nasal spray but she did not dothis yet. OBJECTIVE Vitals: 07/08/17 1254 BP: 122/76 BP Location: Right arm Patient Position: Sitting Cuff Size: Large Pulse: 87 Resp: 16 Temp: 37.1 ??C TempSrc: Temporal SpO2: 99% Weight: 56.1 kg Body mass index is 22.19 kg/m??. PHYSICAL EXAM GENERAL: Patient appears in no acute distress. ENT: TMs no erythema. Throat no erythema. NECK: No lymphadenopathy. No thyroid masses. HEART: Regular rate and rhythm. No murmurs. LUNGS: Clear to auscultation. ABDOMEN: Soft and nontender to palpation. IMPRESSION / REPORT / PLAN #1 Eustachian Tube Disorder Right I discussed this diagnosis with her today I am going to have her try Flonase 2 sprays in each nostril once a day if her symptoms do not improve with this I will have her follow up with ENT within the next couple weeks if she has questions or problems she will let us know Tigre Preciado P.A.-C. documented in this encounter Plan of Treatment Not on filedocumented as of this encounter Visit Diagnoses Diagnosis Eustachian Tube Disorder Right - Primary documented in this encounter Additional Health Concerns Assessment Noted Time PHQ-9 Depression Total Score: 1 06/02/2017 9:34 AM SECONDARY SPANISH TEACHER documented as of this encounter Care Teams Newspaper Stuffer Relationship Specialty Start Date End Date Luisa Roy M.D. PCP - General 10/01/16 10/10/[address] [address] documented as of this encounter
--- OUTSIDE RECORDS SUMMARY | 2022-02-13 09:17 | XMS_ITS | Encounter Summary ---
:1945 Author Organization [facility] Address [address] [place] [address] Care Team Providers Name Role Phone Luisa Roy M.D. Primary Care Provider Reason for Visit Reason Onset Date Comments Scheduling AWV 05/02/2019 Encounter Details Date Type Department Care Team Description 05/02/2019 Clinical Communication Department of [facility] Beka Trimble Scheduling AWV Medicine, Luisa Bocanegra, [facility], in Jacquelyn Aguilar [place] [address] [place] [phone] Social History Tobacco Use Types Packs/Day [...] this encounter Miscellaneous Notes Telephone Encounter - Lili Rodriguez REldaN. - 05/02/2019 2:13 PM CST Called patient to discuss scheduling a Medicare Annual Wellness Visit. Patient not interested but can call again next year. R SOFTWARE ENGINEER documented in this encounter Plan of Treatment Not on filedocumented as of this encounter Visit Diagnoses Not on filedocumented in this encounter Additional Health Concerns Assessment Noted Time PHQ-9 Depression Total Score: 1 06/02/2017 9:34 AM CYBER SOFTWARE ENGINEER documented as of this encounter Care Teams Air Export Agent Relationship Specialty Start Date End Date Luisa Roy M.D. PCP - General 10/01/16 10/10/[address] [address] documented as of this encounter
--- OUTSIDE RECORDS SUMMARY | 2022-02-13 09:17 | XMS_ITS | Encounter Summary ---
:1945 Author Organization [facility] Address [address] [place] [address] Care Team Providers Name Role Phone Luisa Roy M.D. Primary Care Provider Reason for Referral Outpatient (Routine) - Closed Specialty Diagnoses / Procedures Referred By Contact Refer red To Contact Podiatry Diagnoses Pain Foot Left [facility], [facility] [address] [facility] [place] [address] [address] [place] [address] Phone: [phone] Referral ID Status Reason Start Date Expiration Visits Visits Date Requested Authorized [id number] Closed Patient 06/14/2018 06/14/2019 1 1 Preference hysical Therapy (Routine) - Closed Specialty Diagnoses / Procedures Referred By Contact Refer red To Contact Physical Therapy Diagnoses Pain Neck [facility] [address] [place] [address] [address] [place] [address] Phone: [phone] Referral ID Status Reason Start Date Expiration Visits Visits Date Requested Authorized [id number] Closed Patient 06/14/2018 06/14/2019 1 1 Preference SUPERVISOR Reason for Visit Reason Comments Annual Exam Patient is in today for barney al exam. Appointment Request (Routine) - Closed Specialty Diagnoses / Procedures Referred By Contact Refer red To Contact Family Medicine Referral ID Status Reason Start Date Expiration Date Visits Requ ested Visits Authorized [id number] Closed 05/06/2018 05/06/2019 1 Encounter Details Date Type Department Care Team Description 06/14/2018 [facility] Examination Diabetes Mellitus (Primary Dx); Medicine, [place] Luisa mendez, Screen ing Lipid; Clinic, in M.D. Pain Neck; [place], [place] [address] Neuropathy Peripheral; [address] [place] [address] Social History Tobacco Use Types Packs/Day [...] Sign Reading Time Taken Comments Blood Pressure 136/88 06/14/2018 8:41 AM CREW SUPERVISOR Pulse 76 06/14/2018 8:35 AM CREW SUPERVISOR Temperature 36.6 ??C (97.9 ??F) 06/14/2018 8:35 AM CREW SUPERVISOR Respiratory Rate 12 06/14/2018 8:35 AM CREW SUPERVISOR Oxygen Saturation - - Inhaled Oxygen Concentration - - Weight 56.7 kg (125 lb) 06/14/2018 8:35 AM CREW SUPERVISOR Height 159.5 cm (5' 2.8) 06/14/2018 8:35 AM CREW SUPERVISOR Body Mass Index 22.29 06/14/2018 8:35 AM CREW SUPERVISOR documented in this encounter H&P Notes Luisa Roy M.D. - 06/14/2018 8:45 AM CST CHIEF COMPLAINT/ REASON FOR VISIT Review medications, review medical concerns, update preventive services. HISTORY OF PRESENT ILLNESS Isadora Back is a 73 y.o. female who presents to the clinic today for her annual examination. She is having pain in the back of her neck which she attributes to arthritis. She is interested in physical therapy. She is also having pain in her left foot. There was a previous fracture and now she has it and occasional catching sensation. She is also having some numbness and tingling in both of her feet. There are no further concerns at this time. SYSTEMS REVIEW Please [...] HOUR IF NEEDED 9 tablet 5 ??? cyanocobalamin (vitamin B-12) 100 mcg tablet [...] BREAST Right ??? VAGINAL DELIVERY 1974 1976 1977 x 3 PREVENTIVE SERVICES Mammogram: Updated today Lipid panel: Updated today Colonoscopy: 11/10/2012 with 5 year follow-up recommended. Pap smear: No longer indicated Bone density scan: 07/01/2017 with T-score -3.2 Immunization History Administered Date(s) Administered ??? Influenza, Seasonal, Injectable 02/24/2006, 02/15/2007, 02/20/2008, 01/21/2009, 04/06/2012 ??? Influenza, Unspecified 04/06/2012, 02/16/2013, 03/07/2014 ??? PCV13 05/29/2014 ??? PPSV23 04/08/2012 ??? Td (Adult), adsorbed 01/23/2003 ??? Tdap 04/03/2013 SOCIAL HISTORY Social History Social History ??? Marital status: Spouse name: N/A ??? Number of children: N/A ??? Years of education: N/A Social History Main Topics ??? Smoking status: Former Smoker Quit date: 1967 ??? Smokeless tobacco: Never Used ??? Alcohol use 3.0 oz/week 5 Glasses of wine per week ??? Drug use: No ??? Sexual activity: Not Asked Other Topics Concern ??? None Social History Narrative She is . Previously helped operate an [employer]. She also helps care for her grandchildren. She has 3 daughters, 1 out [place], 1 in the [facility], 1 in [place]. History Drug Use No History Alcohol Use ??? 3.0 oz/week ??? 5 Glasses of wine per week FAMILY HISTORY Family History Problem Relation Age of Onset ??? COPD Mother ??? Diabetes Mother ??? Hypertension Mother ??? Macular degeneration Mother ??? Breast cancer Mother ??? Hypertension Father ??? Cancer Father laryngeal cancer ??? Pacemaker pulse generator Sister ??? Coronary artery disease Sister ??? Retinal detachment Sister ??? Cancer Brother laryngeal cancer ??? Breast cancer Mother's Sister VITAL SIGNS Vitals: 06/14/18 0835 06/14/18 0841 BP: 144/80 136/88 Patient Position: Sitting Sitting Pulse: 76 Temp: 36.6 ??C Resp: 12 Height: 159.5 cm Weight: 56.7 kg TempSrc: Temporal Body mass index is 22.29 kg/m??. PHYSICAL EXAMINATION General: Patient is alert and oriented times three, in no acute distress, good hygiene and is dressed appropriately. HEENT: Tympanic membranes are normal bilaterally. Oropharynx is without erythema or exudate. Nasal mucosa is without injection. Neck is without adenopathy. Lymph nodes: Not palpably enlarged and no nodules are palpated. Heart: Regular rate and rhythm without murmur. Lungs: Clear to auscultation. Abdomen: Soft and nontender with no masses. Breasts: Without mass or nipple discharge. There are no axillary or supraclavicular adenopathy. Rectum: Exam is without mass. Genitalia: External genitalia without lesions. Cervix is normal in appearance. Bimanual exam revealssmall nontender uterus and adnexa. Extremities: Within normal limits. Skin: No rashes or suspicious lesions noted on exposed skin. ASSESSMENT / PLAN #1 Screening Examination Diabetes Mellitus Basic metabolic panel with fasting blood sugar obtained today. #2 Screening Lipid Fasting lipid panel obtained today #3 Pain Neck She will be referred to Physical therapy. #4 Neuropathy Peripheral #5 Pain Foot Left She is referred to Podiatry. #6 General medical examination adult PLAN: Mammogram was completed today, continue annually. Colonoscopy is due. Will arrange for colonoscopy. Pap smear no longer indicated due to age. Immunizations are reviewed and are up to date . New shingles vaccine is recommended. Continue with annual flu shots. She is encouraged to maintain healthybody weight through diet and exercise. She is reminded of the need for monthly self-breast exam, yearly eye and regular dental visits. Follow up PLAN: The patient will contact the clinic with any new or worsening symptoms. SUPERVISOR documented in this encounter Plan of Treatment Not on filedocumented as of this encounter Procedures Procedure Name Priority Date/Time Associated Diagnosis Comme nts LIPID PANEL, S Routine 06/14/2018 10:20 AM Screening Lipid Res ults for this CREW SUPERVISOR procedure are i n the results section. BASIC METABOLIC Routine 06/14/2018 10:20 AM Screening Resul ts for this PANEL, S/P CREW SUPERVISOR Examination Diabetes procedu re are in Mellitus the results section. documented in this encounter Results Basic Metabolic Panel (06/14/2018 10:20 AM CREW SUPERVISOR) P athologist Signature Potassium, S 4.4 3.6 - 5.2 06/14/2018 [facility] mmol/L 1:55 PM [facility] Sodium, S 139 135 - 145 06/14/2018 [facility] mmol/L 1:55 PM [facility] Chloride, S 100 98 - 107 06/14/2018 [facility] mmol/L 1:55 PM [facility] Bicarbonate, S 29 22 - 29 06/14/2018 [facility] mmol/L 1:55 PM [facility] Anion Gap 10 7 - 15 06/14/2018 [facility] 1:55 PM [facility] BUN (Blood Urea 10 6 - 21 06/14/2018 [facility] Nitrogen), S mg/dL 1:55 PM [facility] Creatinine 0.90 0.59 - 06/14/2018 [facility] 1.04 mg/dL 2:51 PM [facility] eGFR-Non 65 >=60 06/14/2018 [facility] Black/ mL/min/BSA 2:51 PM [facility] Amanda Huff DBA [facility] Comment: ----ADDITIONAL INFORMATION---- Estimated GFR calculated using the 2009 CKD_EPI creatinine equation. eGFR-Black/ 74 >=60 mL/min/BSA 2018 2:51 PM [facility] Amanda Huff DBA [facility] Comment: ----ADDITIONAL INFORMATION---- Estimated GFR calculated using the 2009 CKD_EPI creatinine equation. Calcium, Total, S 9.7 8.8 - 10.2 mg/dL 06/14/2018 1 :55 PM [facility] Glucose, S 95 70 - 140 mg/dL 06/14/2018 2:51 PM [facility] Amanda Huff [facility]BA [facility] Specimen Anatomical Collection Method Collection Time Receive d Time (Source) Location / / Volume Laterality Blood (Blood, 06/14/2018 10:20 06/14/2018 1:05 Venous) AM [facility] PM CREW SUPERVISOR Luisa Roy M.D. LAB BLOOD ADD-ON Performing Organization Address City/State/ZIP Code Phon e Number [facility] [place] [address] [place] [address] LAB Lipid Panel (06/14/2018 10:20 AM [facility]) athologist Signature Cholesterol, 183 mg/dL 06/14/2018 [facility] Total 2:51 PM [facility] Amanda Huff DBA [facility] Comment: ----REFERENCE VALUE---- Desirable: < 200 Borderline high: 200 - 239 High: > or = 240 Triglycerides 97 mg/dL 06/14/2018 2:51 PM [facility] Comment: ----REFERENCE VALUE---- Normal: <150 Borderline high: 150-199 High: 200-499 Very high: > or =500 Cholesterol, HDL, S 63 >=50 mg/dL 06/14/2018 2:51 PM [facility] Calculated LDL 101 mg/dL 06/14/2018 2:[address] [facility] Comment: ----REFERENCE VALUE---- Desirable: <100 Above Desirable: 100-129 Borderline high: 130-159 High: 160-189 Very high: > or =190 Cholesterol, Non-HDL, 120 mg/dL 06/14/2018 2:51 PM [facility] Comment: ----REFERENCE VALUE---- Desirable: <130 Above Desirable: 130-159 Borderline high: 160-189 High: 190-219 Very high: > or =220 Specimen Anatomical Collection Method Collection Time Receive d Time (Source) Location / / Volume Laterality Blood (Blood, 06/14/2018 10:20 06/14/2018 1:05 Venous) AM CREW SUPERVISOR PM CREW SUPERVISOR Luisa Roy M.D. LAB BLOOD ADD-ON Performing Organization Address City/State/ZIP Code Phon e Number [facility] [address] [place] [address] LAB DX Foot Left 3+ Views (06/14/2018 10:15 AM CREW SUPERVISOR) Anatomical Region Laterality Modality Lower Extremity, Foot, Musculoskeletal RST LOS, Left Digital Radiography Musculoskeletal ARZ LOS, Muskuloskeletal FLA LOS Specimen (Source) Anatomical Collection Method Collection Time Re ceived Time Location / / Volume Laterality 06/14/2018 10:36 AM CREW SUPERVISOR Impressions 06/14/2018 10:37 AM CREW SUPERVISOR IMPRESSION: No appreciable acute osseous injury of the left foot. Scattered degenerative changes of the left mid and hindfoot. Narrative 06/14/2018 10:37 AM CREW SUPERVISOR EXAM: DX FOOT LEFT 3+ VIEWS COMPARISON: November 09, 2013. FINDINGS: Moderately prominent scattered degenerative changes of the left mid, hind foot. No radiopaque foreign bodies. No appreci able acute osseous injury of the left foot. Medium-sized left calcaneal heel spur. If pain persists consider follow-up imag ing. Procedure Note Sebastian Armstrong M.D. - 06/14/2018Forma tting of this note might be different from the original. EXAM: DX FOOT LEFT 3+ VIEWS COMPARISON: November 09, 2013. FINDINGS: Moderately prominent scattered degenerative changes of the left mid, hind foot. No radiopaque foreign bodies. No appreci able acute osseous injury of the left foot. Medium-sized left calcaneal heel spur. If pain persists consider follow-up imag ing. IMPRESSION: No appreciable acute osseous injury of the left foot. Scattered degenerative changes of the left mid and hindfoot. Luisa Roy M.D. IMG DIAGNOSTIC IMAGING PROCEDURES documented in this encounter Visit Diagnoses Diagnosis Screening Examination Diabetes Mellitus - Primary Screening Lipid Pain Neck Neuropathy Peripheral Pain Foot Left Pain Foot Left documented in this encounter Additional Health Concerns Assessment Noted Time PHQ-9 Depression Total Score: 1 06/02/2017 9:34 AM CREW SUPERVISOR documented as of this encounter Care Teams Mail Handler Sorter Relationship Specialty Start Date End Date Luisa Roy M.D. PCP - General 10/01/16 10/10/[address] [address] documented as of this encounter
--- OUTSIDE RECORDS SUMMARY | 2022-02-13 09:17 | XMS_ITS | Encounter Summary ---
:1945 Author Organization [facility] Address [address] [place] [address] Care Team Providers Name Role Phone Luisa Roy M.D. Primary Care Provider [phone] Reason for Visit Reason Comments Med Refill Encounter Details Date Type Department Care Team Description 06/03/2018 Refill Department of Family Medicine, [facility] Refill [facility], in Luisa Aguilar M.D. [place] [address] [address] [place] [address] [phone] Social History Tobacco Use Types Packs/Day Years [...] Depression Total Score: 1 06/02/2017 9:34 AM COMMERCIAL CENTER MANAGER documented as of this encounter Care Teams Carpet Sewing Machine Operator Relationship Specialty Start Date End Date Luisa Roy M.D. PCP - General 10/01/16 10/10/19 [address] [address] documented as of this encounter
--- OUTSIDE RECORDS SUMMARY | 2022-02-13 09:17 | XMS_ITS | Encounter Summary ---
:1945 Author Organization [facility] Address [address] [place] [address] Care Team Providers Name Role Phone Luisa Roy M.D. Primary Care Provider Reason for Visit Reason Comments Foot Pain and up leg at times Appointment Request (Routine) - Closed Specialty Diagnoses / Procedures Referred By Contact Refer red To Contact Family Medicine Referral ID Status Reason Start Date Expiration Date Visits Requ ested Visits Authorized [id number] Closed 12/03/2017 12/03/2018 1 Encounter Details Date Type Department Care Team Description 12/13/2017 Office Visit Department of Family Tigre Preciado Pe s Planus Left (Primary Dx); Medicine in [place] Pain Foot Left [place] [address] [facility] [address] [place], [place] [address] [phone] Social History Tobacco Use Types Packs/Day Years [...] Sign Reading Time Taken Comments Blood Pressure 118/76 12/13/2017 11:57 AM CDT Pulse 88 12/13/2017 11:57 AM CDT Temperature 37.3 ??C (99.1 ??F) 12/13/2017 11:57 AM CDT Respiratory Rate - - Oxygen Saturation - - Inhaled Oxygen Concentration - - Weight 57 kg (125 lb 10.6 oz) 12/13/2017 11:57 AM CDT Height - - Body Mass Index 22.55 11/18/2017 8:36 AM CDT documented in this encounter Progress Notes Tigre Preciado P.A.-C. - 12/13/2017 11:45 AM CDT CHIEF COMPLAINT / REASON FOR VISIT Isadora Back is a 72 y.o. female who presents for evaluation of Foot Pain (and up leg at times). HISTORY OF PRESENT ILLNESS Isadora presents today for complaints of left foot pain has been bothering her chronically. She broke this foot many years ago and says that she has always had some pain there but it does seem to be getting worse lately and also radiates up into her leg and in her low back. She does not think that she has been walking abnormally. She does go to physical therapy regularly and finds this to be helpful. OBJECTIVE Vitals: 12/13/17 1157 BP: 118/76 BP Location: Right arm Patient Position: Sitting Cuff Size: Regular Pulse: 88 Temp: 37.3 ??C Weight: 57 kg Body mass index is 22.55 kg/m??. PHYSICAL EXAM Examination of her left foot today shows some discomfort to palpation on the arch of her foot she does have definite pes planus. She has a full range of motion of her ankle and her foot she also has some discomfort to palpation of her left sciatic region in the gluteal area no pain really in the low back. IMPRESSION / REPORT / PLAN #1 Pes Planus Left I do think that she would benefit from wearing orthotics. She goes to physical therapy regularly Dahlia gave her a new referral for physical therapy and she is going to take this with her to do some treatments on this and consider a custom orthotic. We gave her the option of seeing the project assistant but for now she wants to stick with physical therapy we also talked about possibly doing an x-ray but weregoing to hold off for now if it does not get better with this she will let us know #2 Pain Foot Left Follow up with physical therapy as we discussed if it does get better she will let us know Tigre Preciado P.A.-C. documented in this encounter Plan of Treatment Not on filedocumented as of this encounter Visit Diagnoses Diagnosis Pes Planus Left - Primary Pain Foot Left documented in this encounter Additional Health Concerns Assessment Noted Time PHQ-9 Depression Total Score: 1 06/02/2017 9:34 AM SALVAGE CLERK documented as of this encounter Care Teams Bevel Mill Operator Relationship Specialty Start Date End Date Luisa Roy M.D. PCP - General 10/01/16 10/10/19 [address] [place] [phone] documented as of this encounter
--- OUTSIDE RECORDS SUMMARY | 2022-02-13 09:17 | XMS_ITS | Encounter Summary ---
:1945 Author Organization [facility] Address [address] [place] [address] Care Team Providers Name Role Phone Luisa Roy M.D. Primary Care Provider Reason for Referral Physical Therapy (Routine) - Closed Specialty Diagnoses / Procedures Referred By Contact Refer red To Contact Physical Therapy Diagnoses Pain Neck Chase Roy Physical [facility] [address] [facility] [place] [address] [place] [address] Phone: [phone] Referral ID Status Reason Start Date Expiration Visits Visits Date Requested Authorized [id number] Closed Patient 09/15/2017 09/15/2018 1 1 Preference Encounter Details Date Type Department Care Team Description 09/08/2017 Clinical Communication Department [facility], in [place] [address] [place] [phone] [phone] Social History Tobacco Use Types Packs/Day Years [...] this encounter Miscellaneous Notes Telephone Encounter - Cara Alston, L.P.N. - 09/22/2017 7:46 AM CDT referal faxed to [facility] physical therapy Telephone Encounter - Luisa Roy M.D. - 09/15/2017 5:28 PM CDT [facility] Encounter - Namita Rodriguez L.P.N. - 09/14/2017 2:05 PM CDT See message. Telephone Encounter - Namita Rodriguez L.P.N. - 09/08/2017 2:03 PM CDT Patient would like to continue therapy for her neck. Last referral found scanned under document viewer. Please call patient back when complete. May leave message on her phone. Telephone Encounter - Claudia Rodriguez - 09/08/2017 8:43 AM CDT Patient would like to extended her referral at [facility]. She can be reached at [phone] documented in this encounter Plan of Treatment Not on filedocumented as of this encounter Visit Diagnoses Diagnosis Pain Neck - Primary documented in this encounter Additional Health Concerns Assessment Noted Time PHQ-9 Depression Total Score: 1 06/02/2017 9:34 AM CLAIM ANALYST documented as of this encounter Care Teams Irrigator Valve Pipe Relationship Specialty Start Date End Date Luisa Roy M.D. PCP - General 10/01/16 10/10/[address] [phone] documented as of this encounter
--- OUTSIDE RECORDS SUMMARY | 2022-02-13 09:17 | XMS_ITS | Encounter Summary ---
:1945 Author Organization [facility] Address [address] [place] [address] Care Team Providers Name Role Phone Luisa Roy M.D. Primary Care Provider [phone] Encounter Details Date Type Department Care Team Description 08/23/2017 Clinical Communication Department of Internal [facility] in [place], [place] Jacqu[place] [address] [place] [address] [place], [place] [phone] Social History Tobacco Use Types Packs/Day Years [...] this encounter Miscellaneous Notes Telephone Encounter - Luisa Roy M.D. - 08/24/2017 1:06 PM CDT Where would she like to go? Telephone Encounter - Namita Rodriguez L.P.N. - 08/24/2017 9:28 AM CDT See message. Telephone Encounter - Rosalind Velazquez - 08/23/2017 11:13 AM CDT Patient is wondering if she could be referred elsewhere for Audiology/ENT. She does not want to waituntil 09/08/17. Please advise and call [phone] documented in this encounter Plan of Treatment Not on filedocumented as of this encounter Visit Diagnoses Not on filedocumented in this encounter Additional Health Concerns Assessment Noted Time PHQ-9 Depression Total Score: 1 06/02/2017 9:34 AM SEAFOOD FISHERMAN documented as of this encounter Care Teams Technical Maintenance Technician Relationship Specialty Start Date End Date Luisa Roy M.D. PCP - General 10/01/16 10/10/[address] [phone] documented as of this encounter
--- OUTSIDE RECORDS SUMMARY | 2022-02-13 09:17 | XMS_ITS | Encounter Summary ---
:1945 Author Organization [facility] Address [address] [place] [address] Care Team Providers Name Role Phone Luisa Roy M.D. Primary Care Provider [phone] Encounter Details Date Type Department Care Team Description 06/14/2018 Hospital Encounter Department of Radiology Grant Felix Pain Foot Left in [place], [facility] Luisa randle M.D. [address] [facility] [address] [place] [phone] Social History Tobacco Use Types Packs/Day Years [...] Take 1 tablet by 0 06/28/2009 mouth. albuterol 90 Inhale 2 puffs every 0 [...] Name Priority Date/Time Associated Comments Diagnosis DX FOOT LEFT 3+ RAD - Routine 06/14/2018 10:15 Pain Foot Left Resul ts for this VIEWS (most inpatients AM BEARING RING ASSEMBLER procedure a re in and all the results outpatients) section. documented in this encounter Results DX Foot Left 3+ Views (06/14/2018 10:15 AM BEARING RING ASSEMBLER) Anatomical Region Laterality Modality Lower Extremity, Foot, Musculoskeletal RST LOS, Left Digital Radiography Musculoskeletal ARZ LOS, Muskuloskeletal FLA LOS Specimen (Source) Anatomical Collection Method Collection Time Re ceived Time Location / / Volume Laterality 06/14/2018 10:36 AM BEARING RING ASSEMBLER Impressions 06/14/2018 10:37 AM BEARING RING ASSEMBLER IMPRESSION: No appreciable acute osseous injury of the left foot. Scattered degenerative changes of the left mid and hindfoot. Narrative 06/14/2018 10:37 AM BEARING RING ASSEMBLER EXAM: DX FOOT LEFT 3+ VIEWS COMPARISON: [...] in this encounter Visit Diagnoses Diagnosis Pain Foot Left documented in this encounter Additional Health Concerns Assessment Noted Time PHQ-9 Depression Total Score: 1 06/02/2017 9:34 AM BEARING RING ASSEMBLER documented as of this encounter Care Teams Dairy Quality Assurance Officer Relationship Specialty Start Date End Date Luisa Roy M.D. PCP - General 10/01/16 10/10/19 [address], [place] [address] documented as of this encounter
--- OUTSIDE RECORDS SUMMARY | 2022-02-13 09:17 | XMS_ITS | Encounter Summary ---
:1945 Author Organization [facility] Address [address] [place] [address] Care Team Providers Name Role Phone Luisa Roy M.D. Primary Care Provider [phone] Encounter Details Date Type Department Care Team Description 06/02/2017 Hospital Encounter Department of Chitra salcido Mammogram Radiology in Luisa mendez, Average Risk Patient Norman Aguilar M.D. [address] [facility] [address] [facility] [address] [place], [place] [phone] Social History Tobacco Use Types Packs/Day [...] B-12) 100 mcg tablet mouth daily. SUMAtriptan (for_IMITREX) TAKE 1 TABLET BY 9 tablet 5 09/201706/03/2018 25 mg tablet MOUTH FOR 1 DOSE NEEDED FOR MIGRAINE. MAY REPEAT AFTER 1 HOUR IF NEEDED documented as of this encounter Plan of Treatment Not on filedocumented as of this encounter Procedures Procedure Name Priority Date/Time Associated Comments Diagnosis BI BREAST RAD - Routine 06/02/2017 11:02 Screening Results fo r this SCREENING (most inpatients AM WEED CONTROL INSPECTOR Mammogram Average proced ure are in BILATERAL and all Risk Patient the results outpatients) section. documented in this encounter Results BI Breast Screening Bilateral (06/02/2017 11:02 AM WEED CONTROL INSPECTOR) Anatomical Region Laterality Modality Breast Bilateral Mammography Specimen (Source) Anatomical Collection Method Collection Time Re ceived Time Location / / Volume Laterality 06/02/2017 1:18 PM WEED CONTROL INSPECTOR Impressions 06/02/2017 1:19 PM WEED CONTROL INSPECTOR IMPRESSION: ??Negative. RECOMMENDATION: ??Annual Screening Mammo gram ASSESSMENT: ??BI-RADS: 1: Negative. Narrative 06/02/2017 1:19 PM WEED CONTROL INSPECTOR EXAM: ??BI BREAST SCREENING BILATERAL Current study was evaluated with a Compu ter Aided Detection (CAD) system. INDICATION: ??Screening mammogram. COMPARISON: ??Prior exams were available for comparison. DENSITY: ??c. The breast(s) are heteroge neously dense, which may obscure small masses. FINDINGS: ??No mammographic findings of malignancy. Procedure Note Sebastian Armstrong M.D. - 06/02/2017Forma tting of this note might be different from the original. EXAM: BI BREAST SCREENING BILATERAL Current study was evaluated with a Compu ter Aided Detection (CAD) system. INDICATION: Screening mammogram. COMPARISON: Prior exams were available f or comparison. DENSITY: c. The breast(s) are heterogene ously dense, which may obscure small masses. FINDINGS: No mammographic findings of ma lignancy. IMPRESSION: Negative. RECOMMENDATION: Annual Screening Mammogr am ASSESSMENT: BI-RADS: 1: Negative. Luisa Roy M.D. IMG BI PROCEDURES documented in this encounter Visit Diagnoses Diagnosis Screening Mammogram Average Risk Patient documented in this encounter Additional Health Concerns Assessment Noted Time PHQ-9 Depression Total Score: 1 06/02/2017 9:34 AM WEED CONTROL INSPECTOR documented as of this encounter Care Teams Grain Cleaner And Transfer Operator Relationship Specialty Start Date End Date Luisa Roy M.D. PCP - General 10/01/16 10/10/[address] [phone] documented as of this encounter
--- OUTSIDE RECORDS SUMMARY | 2022-02-13 09:17 | XMS_ITS | Encounter Summary ---
:[address] [facility] Address [address] [place] [address] Care Team Providers Name Role Phone Luisa Roy M.D. Primary Care Provider [phone] Reason for Visit Reason Onset Date Comments Medicare Annual Wellness Visit Subsequent 08/03/2018 Encounter Details Date Type Department Care Team Description 08/03/2018 Clinical Communication Department of Rianna Groves Annual Family Medicine, M, R.N. Wellness Visit [facility], Subsequent in [facility] (Work) [address] [phone] Social History Tobacco Use Types Packs/Day Years [...] Telephone Encounter - Rianna Groves R.N. - 08/11/2018 11:51 AM CDT Order placed. Scheduling will make another attempt to reach patient to schedule Medicare Annual Wellness Visit. Telephone Encounter - Rianna Groves R.N. - 08/03/2018 10:30 AM CDT Called patient to discuss scheduling a Medicare Annual Wellness Visit. Unable to reach patient, left message for patient to return call to discuss. documented in this encounter Plan of Treatment Not on filedocumented as of this encounter Visit Diagnoses Diagnosis Annual Medicare Examination Return - Palmira perez documented in this encounter Additional Health Concerns Assessment Noted Time PHQ-9 Depression Total Score: 1 06/02/2017 9:34 AM LOCOMOTIVE ENGINEER documented as of this encounter Care Teams Tow Boat Captain Relationship Specialty Start Date End Date Luisa Roy M.D. PCP - General 10/01/16 10/10/19 [address] [address] documented as of this encounter
--- OUTSIDE RECORDS SUMMARY | 2022-02-13 09:17 | XMS_ITS | Encounter Summary ---
:1945 Author Organization [facility] Address [address] [place] [address] Care Team Providers Name Role Phone Luisa Roy M.D. Primary Care Provider Reason for Visit Reason Comments Rash x 2 weeks located behind eliud ateral ears Ear Fullness noted since recovery from t he flu Encounter Details Date Type Department Care Team Description 05/18/2017 Office Visit Department of [facility] ea Corporis (Primary Medicine, Luisa [place], [place]) Clinic, in [place] [address] [facility] [place] [phone] Social History Tobacco Use Types Packs/Day [...] Sign Reading Time Taken Comments Blood Pressure 130/78 05/18/2017 11:52 AM BRIQUETTE MACHINE OPERATOR Pulse 76 05/18/2017 11:52 AM BRIQUETTE MACHINE OPERATOR Temperature 36.9 ??C (98.4 ??F) 05/18/2017 11:52 AM BRIQUETTE MACHINE OPERATOR Respiratory Rate 20 05/18/2017 11:52 AM BRIQUETTE MACHINE OPERATOR Oxygen Saturation - - Inhaled Oxygen Concentration - - Weight 56.5 kg (124 lb 9 oz) 05/18/2017 11:52 AM BRIQUETTE MACHINE OPERATOR Height 160 cm (5' 2.99) 05/18/2017 11:52 AM BRIQUETTE MACHINE OPERATOR Body Mass Index 22.07 05/18/2017 11:52 AM BRIQUETTE MACHINE OPERATOR documented in this encounter Progress Notes Luisa Roy M.D. - 05/18/2017 11:45 AM CST CHIEF COMPLAINT/ REASON FOR VISIT Rash. HISTORY OF PRESENT ILLNESS Isadora Back is a 72 y.o. female who presents to the clinic today for rash. She has a circular rash on each side of her face along her jaw. She also has another spot starting on the bridge of her nose. Isadora is wondering if the rash is ringworm. She wonders this because a flyer was sent home from school with information about ringworm and it said that people can get ringworm from cats and dogs and she is worried her cat may have ringworm. Isadora has been sick for the last couple weeks with what she thinks was the flu. She had an episodes where she fainted. She was seen in the clinic on 05/06 by Tigre Preciado who treated her for left otitis media with a course of Amoxicillin. The patient denies any additional questions or [...] (IMITREX) 25 mg tablet Take 1 tablet by mouth once as needed. ??? azithromycin (for_ZITHROMAX) 250 mg tablet Take 2 tabs (500 mg) by mouth today, then 1 tab (250 mg) daily for 4 days. (Patient not taking: Reported on 05/06/2017 ) 6 tablet 0 No current facility-administered medications for this visit. ALLERGIES Allergies Allergen Reactions ??? Ciprofloxacin Tendonitis ??? Fluconazole Other (see comments) and Anaphylaxis ??? Latex Rash ??? Lidocaine-Epinephrine Palpitations ??? Metronidazole Tendonitis ??? Sulfa (Sulfonamide Antibiotics) Nausea Only PAST MEDICAL / SURGICAL HISTORY Past Medical History: Diagnosis Date ??? Anxiety ??? Asthma NOS ??? Diverticulosis with one episode of diverticulitis ??? Fasciitis Plantar ??? Migraine Headache ??? Osteopenia ??? Pain Neck ??? Polyp Colon Personal History ??? Tendonitis Of the right knee which she believes was secondary to Levaquin. Past Surgical History: Procedure Laterality Date ??? COLONOSCOPY W/ OR W/O BIOPSY 11/10/[address] Eric Cabrera who recommended repeat in 5 years. ??? LAPAROSCOPIC CHOLECYSTECTOMY N/A 2007 Laparoscopic cholecystectomy ??? LUMPECTOMY BREAST Right ??? VAGINAL DELIVERY x 3 PREVENTIVE SERVICES Social History Substance Use Topics ??? Smoking status: Former Smoker Quit date: 1967 ??? Smokeless tobacco: Never Used ??? Alcohol use 3.0 oz/week 5 Glasses of wine per week VITAL SIGNS BP 130/78 (BP Location: Left arm, Patient Position: Sitting, Cuff Size: Regular) Pulse 76 Temp 36.9 ??C (Temporal) Resp 20 Ht 160 cm Wt 56.5 kg LMP (LMP Unknown) BMI 22.07 kg/m?? PHYSICAL EXAMINATION General: Patient is alert and oriented times three, in no acute distress, good hygiene and is dressed appropriately. HEENT: Tympanic membranes are normal bilaterally. Oropharynx is without erythema or exudate. Nasal mucosa is without injection. Neck: Is without cervical lymphadenopathy. Heart: Regular rate and rhythm without murmur. Lungs: Faint crackles right base clears with deep inspiration. Skin: On the right cheek, just at the angle of the jaw is an erythematous plaque 2x1.5 cm that is slightly raised with central clearing. Just posterior to the angle of the jaw on the left is a similar appearing area 3x1 cm. Just to the left of the bridge of the nose between the bridge and medial canthus of the left eye is a slightly raised and slightly erythematous patch with some mild flaking unableto determine central clearing. There is a violaceous macule just to the right of midline on the bridge of the nose. ASSESSMENT / PLAN #1 Tinea corporis. I recommended that she use [id number] Lamisil. Discussed that it may take 2-4 weeks to resolve. Follow up The patient will contact the clinic with any new or worsening symptoms. This document serves as a record of services personally performed by Luisa Ireland MD. It was created on their behalf by Beryl Augustine, a trained medical office coordinator. The creation of this record is based on the scribe's personal observations and the provider's statements to them. This document has been arti cked and approved by the attending provider. UETTE MACHINE OPERATOR documented in this encounter Plan of Treatment Not on filedocumented as of this encounter Visit Diagnoses Diagnosis Tinea Corporis - Primary documented in this encounter Care Teams Mobile Sales Technician Relationship Specialty Start Date End Date Luisa Roy M.D. PCP - General 10/01/16 10/10/[address] [phone] documented as of this encounter
--- OUTSIDE RECORDS SUMMARY | 2022-02-13 09:17 | XMS_ITS | Encounter Summary ---
:1945 Author Organization [facility] Address [address] [place] [address] Care Team Providers Name Role Phone Luisa Roy M.D. Primary Care Provider [phone] Encounter Details Date Type Department Care Team Description 01/14/2018 Clinical Communication Department of [facility] Beka Menard [facility], [facility] in [place]quelyn Aguilar [address] [place], [place] [phone] Social History Tobacco Use Types Packs/Day Years [...] this encounter Miscellaneous Notes Telephone Encounter - Clarissa Owens C.MRobert - 01/17/2018 9:20 AM CDT Patient informed and verbalized understanding. Telephone Encounter - Luisa Roy M.D. - 01/14/2018 4:48 PM CDT Please call patient with normal urinalysis results. documented in this encounter Plan of Treatment Not on filedocumented as of this encounter Visit Diagnoses Not on filedocumented in this encounter Additional Health Concerns Assessment Noted Time PHQ-9 Depression Total Score: 1 06/02/2017 9:34 AM PHOTO OPTICS TECHNICIAN documented as of this encounter Care Teams Table Worker Relationship Specialty Start Date End Date Luisa Roy M.D. PCP - General 10/01/16 10/10/19 [address], [place] [address] documented as of this encounter
--- OUTSIDE RECORDS SUMMARY | 2022-02-13 09:17 | XMS_ITS | Encounter Summary ---
:1945 Author Organization [facility] Address [address] [place] [address] Care Team Providers Name Role Phone Luisa Roy M.D. Primary Care Provider [phone] Encounter Details Date Type Department Care Team Description 12/03/2017 Clinical Communication Department [facility], in [address] [address] [place], [place] [phone] (Work) [phone] Social History Tobacco Use Types Packs/Day Years [...] this encounter Miscellaneous Notes Telephone Encounter - Diya Saenz LEldaP.N. - 12/03/2017 3:42 PM CDT Switched appt from Dec to Dec 13 Telephone Encounter - Davis Villalobos - 12/03/2017 12:51 PM CDT PT calling to see if we could work her into schedule on either 12/06 or 12/13, in [place]. Pt is havingft pain, and we have an appt set for 12/23, but was hoping to be seen sooner. Please advise: [phone] documented in this encounter Plan of Treatment Not on filedocumented as of this encounter Visit Diagnoses Not on filedocumented in this encounter Additional Health Concerns Assessment Noted Time PHQ-9 Depression Total Score: 1 06/02/2017 9:34 AM STAFF COUNSELOR documented as of this encounter Care Teams Handbook Writer Relationship Specialty Start Date End Date Luisa Roy M.D. PCP - General 10/01/16 10/10/19 [address] [address] documented as of this encounter
--- OUTSIDE RECORDS SUMMARY | 2022-02-13 09:17 | XMS_ITS | Encounter Summary ---
:1945 [address] [facility] Address [address] [place] [address] Care Team Providers Name Role Phone Luisa Roy M.D. Primary Care Provider Reason for Visit Reason Comments Pain In Limb constant numbness and tingli ng sensation in bilateral toes URI cough and congestion with lo w grade fever x 4 days Encounter Details Date Type Department Care Team Description 11/18/2017 Office Visit Department of [facility] [place] burgess Peripheral (Primary Dx); Medicine, Luisa Connolly, Infectio n Upper Respiratory Clinic, in Jacquelyn Aguilar [place] [address] [place] [address] [facility] [place] [phone] Social History Tobacco Use Types Packs/Day [...] Sign Reading Time Taken Comments Blood Pressure 118/70 11/18/2017 8:36 AM CDT Pulse 84 11/18/2017 8:36 AM CDT Temperature 37.3 ??C (99.1 ??F) 11/18/2017 8:36 AM CDT Respiratory Rate 16 11/18/2017 8:36 AM CDT Oxygen Saturation 99% 11/18/2017 8:36 AM CDT room ai r Inhaled Oxygen Concentration - - Weight 56.8 kg (125 lb 5.3 oz) 11/18/2017 8:36 AM CDT Height 159 cm (5' 2.6) 11/18/2017 8:36 AM CDT Body Mass Index 22.49 11/18/2017 8:36 AM CDT documented in this encounter Progress Notes Luisa Roy M.D. - 11/18/2017 8:45 AM CDT SUBJECTIVE CHIEF COMPLAINT / REASON FOR VISIT Isadora Back is a 72 y.o. female who presents for evaluation of Pain In Limb (constant numbness and tingling sensation in bilateral toes) and URI (cough and congestion with low grade fever x 4 days). HISTORY OF PRESENT ILLNESS She has had a 'cold ' for the last four days with low grade fevers. She has some muslcle aching associated so thinks it may be viral. Right ear is blocked up after myringotomy. Both feet have tingling and a numb sensation on the toes. It isn't painful but it it very irritataing. The right foot has had remote injury and has pain laterally causing her to supinate when walking causing left leg and back pain. Has had PT in the past. Has final sessions approved already. Has had leg cramping. OBJECTIVE BP 118/70 Pulse 84 Temp 37.3 ??C (Temporal) Resp 16 Ht 159 cm Wt 56.8 kg LMP (LMP Unknown) SpO2 99% Comment: room air BMI 22.49 kg/m?? PHYSICAL EXAM GENERAL: Patient is alert and oriented, well groomed and appropriately dressed. HEENT: TMS are both normal. Nasal mucosa is normal without congestion or discharge. Oropharynx is without erythema or exudate. NECK: Without adenopathy, thyromegaly or carotid bruits. HEART: Regular rate and rhythm without murmur. LUNGS: Clear without wheeze crackle or rhonchus. ABDOMEN: Normal bowel sounds. No mass or tenderness. EXTREMITIES: She has normal sensation on her toes. She has good dorsalis and posterior tibial pulses. Capillary refill is normal. No lesions on the feet. There is a nontender bony prominence the dorsal lateral aspect the left foot over the tarsal metatarsal area.. SKIN: No rashes or unusual lesions on exposed skin. ASSESSMENT / PLAN #1 Neuropathy Peripheral She has not had neuropathy screening labs. Will contact with results. Suspect non reversible causes. - CBC with Differential, Blood - Vitamin B12 Assay - Thyroid Function [place] #2 Infection Upper Respiratory Like viral. Symptomatic measures discussed and recommended. documented in this encounter Plan of Treatment Not on filedocumented as of this encounter Procedures Procedure Name Priority Date/Time Associated Diagnosis Comme nts THYROID FUNCTION Routine 11/18/2017 9:38 AM Neuropathy Resul ts for this CASCADE, S CDT Peripheral procedure are i n the results section. CBC WITH Routine 11/18/2017 9:38 AM Neuropathy Results f or this DIFFERENTIAL, B CDT Peripheral procedure ar e in the results section. VITAMIN B12 ASSAY, Routine 11/18/2017 9:38 AM Neuropathy Res ults for this S CDT Peripheral procedure are i n the results section. documented in this encounter Results Thyroid Function [place] (11/18/2017 9:38 AM CDT) P athologist Signature TSH, Sensitive 3.7 0.3 - 4.2 11/18/2017 [facility] mIU/L 11:47 AM CDT [facility] Comment: Biotin has been identified by the emilia galloway as a potential interfering substance. ??Higher concentr ations of biotin may be found in multivitamins, hair/nail supple ments, and workout supplements. ??If the result does not ma tc clinical observations, repeat testing after patient refrains fr om the use of supplements for at least 12 hours. Specimen Anatomical Collection Method Collection Time Receive d Time (Source) Location / / Volume Laterality Blood (Blood, 11/18/2017 9:38 AM 11/19/19 18 Venous) CDT 11:09 AM CDT Luisa Roy M.D. LAB BLOOD ADD-ON Performing Organization Address City/State/ZIP Code Phon e Number [facility] [address] [place] [address] LAB (ABNORMAL) Vitamin B12 Assay (11/18/2017 9:38 AM CDT) Analysis Performed At Patho logist Time Signature Vitamin B12 >2000 (H) 232 - 1245 11/18/2017 [facility] Assay, S ng/L 2:49 PM CDT [facility] Comment: Biotin has been identified by the emilia galloway as a potential interfering substance. ??Higher concentr ations of biotin may be found in multivitamins, hair/nail supple ments, and workout supplements. ??If the result does not ma tc clinical observations, repeat testing after patient refrains fr om the use of supplements for at least 12 hours. Specimen Anatomical Collection Method Collection Time Receive d Time (Source) Location / / Volume Laterality Blood (Blood, 11/18/2017 9:38 AM 11/19/19 18 1:59 Venous) CDT PM CDT Luisa Roy M.D. LAB BLOOD ADD-ON Performing Organization Address City/State/ZIP Code Phon e Number [facility]- [address] [place] [address] [facility] CBC with Differential, Blood (11/18/2017 9:38 AM CDT) P athologist Signature Hemoglobin 14.2 11.6 - 11/18/2017 [facility] 15.0 g/dL 9:[address] [email or web address] Hematocrit 41.4 35.5 - 11/18/2017 [facility] 44.9 % 9:[address] [facility] Erythrocytes 4.57 3.92 - 11/18/2017 [facility] 5.13 9:55 AM CDT [facility] x10(12)/L [facility]- [facility] MCV 90.6 78.2 - 11/18/2017 [facility] 97.9 fL 9:[address] [facility] RBC Distrib Width 13.0 12.2 - 11/18/2017 [facility] 16.1 % 9:[address] [facility] Platelet Count 349 157 - 371 11/18/2017 [facility] x10(9)/L 9:[address] [facility] Leukocytes 6.4 3.4 - 9.6 11/18/2017 [facility] x10(9)/L 9:[address] [facility] Neutrophils 3.50 1.56 - 11/18/2017 [facility] 6.45 9:55 AM CDT [facility] x10(9)/L SYSTEM- [facility] Lymphocytes 1.87 0.95 - 11/18/2017 [facility] 3.07 9:55 AM CDT [facility] x10(9)/L SYSTEM- [facility] Monocytes 0.79 0.26 - 11/18/2017 [facility] 0.81 9:55 AM CDT [facility] x10(9)/L SYSTEM- [facility] Eosinophils 0.16 0.03 - 11/18/2017 [facility] 0.48 9:55 AM CDT [facility] x10(9)/L [facility]- [facility] Basophils 0.07 0.01 - 11/18/2017 [facility] 0.08 9:55 AM CDT [facility] x[facility](9)/[facility]- [facility] Specimen Anatomical Collection Method Collection Time Receive d Time (Source) Location / / Volume Laterality Blood (Blood, 11/18/2017 9:38 AM 11/19/19 18 9:40 Venous) CDT AM CDT Luisa Roy M.D. LAB BLOOD ADD-ON Performing Organization Address City/State/ZIP Code Phon e Number [facility] [address] [facility] [place] [address] [facility] [address] [facility] DEJA Aguilar [address] [place] [facility] documented in this encounter Visit Diagnoses Diagnosis Neuropathy Peripheral - Primary Infection Upper Respiratory documented in this encounter Additional Health Concerns Assessment Noted Time PHQ-9 Depression Total Score: 1 06/02/2017 9:34 AM TRAVEL TRAILER COMPONENTS ASSEMBLER documented as of this encounter Care Teams Acute Care Physical Therapist Relationship Specialty Start Date End Date Luisa Roy M.D. PCP - General 10/01/16 10/10/[address] [phone] documented as of this encounter
--- OUTSIDE RECORDS SUMMARY | 2022-02-13 09:17 | XMS_ITS | Encounter Summary ---
:1945 Author Organization [facility] Address [address] [place] [address] Care Team Providers Name Role Phone Luisa Roy M.D. Primary Care Provider [phone] Reason for Visit Reason Comments URI states not feeling any heriberto r ears/neck states may feel a little better not completely Encounter Details Date Type Department Care Team Description 05/06/2017 Office Visit Department of [facility] Tigre Preciado As thma ([facility]) (Primary Dx); Medicine in [place], PEldaAElda-Jovani. Otitis Media Acute Left [place] [address] [facility] [address] [place] [phone] Social History Tobacco Use Types Packs/Day Years [...] Sign Reading Time Taken Comments Blood Pressure 138/76 05/06/2017 1:00 PM TRAIN MASTER Pulse 82 05/06/2017 1:00 PM TRAIN MASTER Temperature 36.5 ??C (97.7 ??F) 05/06/2017 1:00 PM TRAIN MASTER Respiratory Rate 16 05/06/2017 1:00 PM TRAIN MASTER Oxygen Saturation 96% 05/06/2017 1:00 PM TRAIN MASTER Inhaled Oxygen Concentration - - Weight 56.2 kg (123 lb 14.4 oz) 05/06/2017 1:00 PM TRAIN MASTER Height - - Body Mass Index 21.95 03/08/2017 4:39 PM TRAIN MASTER documented in this encounter Progress Notes Tigre Preciado, ChatoC. - 05/06/2017 1:00 PM CST CHIEF COMPLAINT / REASON FOR VISIT Isadora Back is a 72 y.o. female who presents for evaluation of URI (states not feeling any betterears/neck states may feel a little better not completely). HISTORY OF PRESENT ILLNESS Isadora presents today for follow-up of her recent upper respiratory infection. I thought she had influenza I treated her with Tamiflu and azithromycin but she never got the Tamiflu because it was too expensive. She continues to have a cough and feel poorly her cough has been very productive of a thick mucus OBJECTIVE Vitals: 05/06/17 1300 BP: 138/76 BP Location: Left arm Patient Position: Sitting Cuff Size: Large Pulse: 82 Resp: 16 Temp: 36.5 ??C TempSrc: Temporal SpO2: 96% Weight: 56.2 kg Body mass index is 21.95 kg/m??. PHYSICAL EXAM GENERAL: Patient appears in no acute distress. ENT: TMs no erythema. Throat no erythema. NECK: No lymphadenopathy. No thyroid masses. HEART: Regular rate and rhythm. No murmurs. LUNGS: She has just a few crackles in her right base otherwise lungs are clear ABDOMEN: Soft and nontender to palpation. IMPRESSION / REPORT / PLAN #1 Asthma (HCC) She continues on her inhaler as necessary. We had a good discussion about this today she has a little bit of fluid behind her ear and I am going to treated with a different antibiotic I would like to cover something that covers more resistant bacteria. She requested amoxicillin and is on a fixed budget but not very good insurance coverage so I am going to treated with amoxicillin 875 mg twice daily for 10 days if her symptoms worsen or not improve in 7-10 days she will let us know #2 Otitis Media Acute Left Will treat her as per 1. Tigre Preciado P.A.-C. N MASTER documented in this encounter Plan of Treatment Not on filedocumented as of this encounter Visit Diagnoses Diagnosis Asthma (HCC) - Primary Otitis Media Acute Left documented in this encounter Care Teams Relay Record Clerk Relationship Specialty Start Date End Date Luisa Roy M.D. PCP - General 10/01/16 10/10/19 [address] [place] [phone] documented as of this encounter
--- OUTSIDE RECORDS SUMMARY | 2022-02-13 09:17 | XMS_ITS | Encounter Summary ---
:1945 Author Organization [facility] Address [address] [place] [address] Care Team Providers Name Role Phone Luisa Roy M.D. Primary Care Provider [phone] Reason for Referral Outpatient (Routine) - Closed Specialty Diagnoses / Procedures Referred By Contact Refer stephon To Contact Diagnoses Screening Osteoporosis YOGI Roy [place] Procedures BMD Bone Density Spine Hips [place] DEXA BONE DENSITY AXIAL HC DEXA BONE DENSITY AXIAL W[place] DEXA BONE DENSITY AXIAL Jacquelyn Moran [address] [place] [phone] Referral ID Status Reason Start Date Expiration Date Visits Requ ested Visits Authorized [id number] Closed 06/02/2017 11/29/2017 1 1 Reason for Visit Outpatient (Routine) - Closed Specialty Diagnoses / Procedures Referred By Contact Refer red To Contact Diagnoses Screening Osteoporosis YOGI Roy [place] Procedures BMD Bone Density Spine Hips [place] DEXA BONE DENSITY AXIAL HC DEXA BONE DENSITY AXIAL [place] DEXA BONE DENSITY AXIAL Jacquelyn Moran [address], [place] [address] Referral ID Status Reason Start Date Expiration Date Visits Requ ested Visits Authorized [id number] Closed 06/02/2017 11/29/2017 1 1 Encounter Details Date Type Department Care Team Description 07/01/2017 Hospital Encounter Department of [facility] Radiology in Luisa mendez, Osteoporosis [place] Norman Valladares [address] [place] [phone] [place] [phone] Social History Tobacco Use Types Packs/Day [...] Procedure Name Priority Date/Time Associated Comments Diagnosis BMD BONE DENSITY RAD - Routine 07/01/2017 1:41 Screening Results for this SPINE HIPS (most inpatients PM CDT Osteoporosis procedure a re in and all the results outpatients) section. documented in this encounter Results BMD Bone Density Spine Hips (07/01/2017 1:41 PM CDT) Anatomical Region Laterality Modality Hip, Lumbar Spine N/A Radiographic Imaging Specimen (Source) Anatomical Collection Method Collection Time Re ceived Time Location / / Volume Laterality 07/01/2017 2:57 PM CDT Impressions 07/01/2017 2:59 PM CDT Impression: Osteoporosis. Narrative 07/01/2017 2:59 PM CDT EXAM: BMD BONE DENSITY SPINE HIPS COMPARISON: 2012, 2007, 2005 Drug Safety Physician/Model: Fanshout FINDINGS: ?? LUMBAR SPINE L1-L4 included unless otherwise indicate d. Lumbar BMD: 0.951 gm/cm2 T-score: -2.0 BMD % change: -3.2% Significance: Statistically significant BMD decrease from the comparison exam. HIP(S) Lowest femoral BMD: 0.66 gm/cm 2 Lowest T-score: -2.7 BMD % change: -5.7% Significance: Statistically significant BMD decrease from the comparison exam. Continued and significant trend in bone mineral loss is identified throughout all exams dating to 2005. FRAX 10 year probability of major osteop orotic fracture 24.2 % FRAX 10 year probability of hip fracture ??7.2 % FRAX scores: Not clinically validated fo r patients with history of therapy with bisphosphonates in the past two years, c alcitonin in the last year, PTH in the last year, Denosumab in the last year. ? ?Calcium and vitamin D do NOT constitute treatment' in this context. ??All treat ment decisions require clinical judgement and consideration of individual patient factors which may not be captured in the FRAX model and the risk of fracture may be over- or under-estimated by FRAX. Treatment recommended for: Patients with hip or vertebral fracture (clinical or morphometric). Patients with osteoporosis at the spine and/or hip as defined by T-score <= -2.5. Postmenopausal women or men age 50 and o lder with low bone mass (T-score -1 to -2.5, osteopenia) at the femoral neck, t otal hip, or spine and 10 year hip fracture probability >3% or a 10 year al l major osteoporosis related fracture probability of >20% based on the [place] apted WHO absolute risk model. Exclude secondary causes of low bone den sity in the appropriate clinical setting. Follow-up exams should be performed at n o sooner than two-year intervals. Direct comparison can only be performed on exams performed at the same facility. World Health Organization T-score criter ia: 0 to -1.0 ?? Normal range < -1.0 to > -2.5 ?? Low bone density (os teopenia) -2.5 or less ?? Osteoporosis Procedure Note Patric Uriarte M.D. - 07/01/2017Formatti ng of this note might be different from the original. EXAM: BMD BONE DENSITY SPINE HIPS COMPARISON: 2012, 2007, 2005 Drug Safety Physician/Model: Fanshout FINDINGS: LUMBAR SPINE L1-L4 included unless otherwise indicate d. Lumbar BMD: 0.951 gm/cm2 T-score: -2.0 BMD % change: -3.2% Significance: Statistically significant BMD decrease from the comparison exam. HIP(S) Lowest femoral BMD: 0.66 gm/cm 2 Lowest T-score: -2.7 BMD % change: -5.7% Significance: Statistically significant BMD decrease from the comparison exam. Continued and significant trend in bone mineral loss is identified throughout all exams dating to 2006. FRAX 10 year probability of major osteop orotic fracture 24.2 % FRAX 10 year probability of hip fracture 7.2 % FRAX scores: Not clinically validated fo r patients with history of therapy with bisphosphonates in the past two years, c alcitonin in the last year, PTH in the last year, Denosumab in the last year. C alcium and vitamin D do NOT constitute treatment' in this context. All treatme nt decisions require clinical judgement and consideration of individual patient factors which may not be captured in the FRAX model and the risk of fracture may be over- or under-estimated by FRAX. Treatment recommended for: Patients with hip or vertebral fracture (clinical or morphometric). Patients with osteoporosis at the spine and/or hip as defined by T-score <= -2.5. Postmenopausal women or men age 50 and o lder with low bone mass (T-score -1 to -2.5, osteopenia) at the femoral neck, t otal hip, or spine and 10 year hip fracture probability >3% or a 10 year al l major osteoporosis related fracture probability of >20% based on the [place] ad apted WHO absolute risk model. Exclude secondary causes of low bone den sity in the appropriate clinical setting. Follow-up exams should be performed at n o sooner than two-year intervals. Direct comparison can only be performed on exams performed at the same facility. World Health Organization T-score criter ia: 0 to -1.0 Normal range < -1.0 to > -2.5 Low bone density (osteo penia) -2.5 or less Osteoporosis Impression: Osteoporosis. Luisa Roy M.D. IMG DXA PROCEDURES documented in this encounter Visit Diagnoses Diagnosis Screening Osteoporosis documented in this encounter Additional Health Concerns Assessment Noted Time PHQ-9 Depression Total Score: 1 06/02/2017 9:34 AM RADAR SYSTEMS ENGINEER documented as of this encounter Care Teams Building Repair Maintenance Supervisor Relationship Specialty Start Date End Date Luisa Roy M.D. PCP - General 10/01/16 10/10/19 [address], [place] [phone] documented as of this encounter
--- OUTSIDE RECORDS SUMMARY | 2022-02-13 09:17 | XMS_ITS | Encounter Summary ---
:1945 Author Organization [facility] Address [address] [place] [address] Care Team Providers Name Role Phone Luisa Roy M.D. Primary Care Provider Reason for Referral Outpatient (Routine) - Closed Specialty Diagnoses / Procedures Referred By Contact Refer stephon To Contact Diagnoses Screening Osteoporosis YOGI Roy [facility] Region Procedures BMD Bone Density Spine Hips VT DEXA BONE DENSITY AXIAL HC DEXA BONE DENSITY AXIAL VT DEXA BONE DENSITY AXIAL Jac[place]elyn Moran [address] [place] [phone] Referral ID Status Reason Start Date Expiration Date Visits Requ ested Visits Authorized [id number] Closed 06/02/2017 11/29/2017 1 1 E POURER Reason for Visit Reason Comments Annual Exam patient fasting for any need ed bloodwork Gynecologic Exam Appointment Request (Routine) - Closed Specialty Diagnoses / Procedures Referred By Contact Refer stephon To Contact Family Medicine Referral ID Status Reason Start Date Expiration Date Visits Requ ested Visits Authorized [id number] Closed 05/18/2017 11/14/2017 1 1 Encounter Details Date Type Department Care Team Description 06/02/2017 Comprehensive Visit Department of [facility] Malika Screening Osteoporosis (Primary Dx); Medicine, [place] Examination Diabetes Mellitus; Clinic, in [place] Moran Screening Lipid [place], [place] [address] [place] [phone] Social History Tobacco Use Types Packs/Day Years [...] Sign Reading Time Taken Comments Blood Pressure 142/64 06/02/2017 9:41 AM LADLE POURER Pulse 80 06/02/2017 9:35 AM LADLE POURER Temperature 36.7 ??C (98.1 ??F) 06/02/2017 9:35 AM LADLE POURER Respiratory Rate 16 06/02/2017 9:35 AM LADLE POURER Oxygen Saturation - - Inhaled Oxygen Concentration - - Weight 56.4 kg (124 lb 7.2 oz) 06/02/2017 9:35 AM LADLE POURER Height 159 cm (5' 2.6) 06/02/2017 9:35 AM LADLE POURER Body Mass Index 22.33 06/02/2017 9:35 AM LADLE POURER documented in this encounter H&P Notes Luisa Roy M.D. - 06/02/2017 9:30 AM CST CHIEF COMPLAINT/ REASON FOR VISIT Review medications, review medical concerns, update preventive services. HISTORY OF PRESENT ILLNESS Isadora Back is a 72 y.o. female who presents to the clinic today for her annual examination. She has not been feeling well for several weeks now with what she assumes has been influenza. She continues to have some lingering symptoms. She rarely gets a migraine but when she does Imitrex is helpful. There are no further concerns at this [...] 1 HOUR IF NEEDED 9 tablet 5 No current facility-administered medications for this visit. [...] ??? VAGINAL DELIVERY x 3 PREVENTIVE SERVICES Mammogram: 06/02/2017. Colonoscopy: 11/10/2012 with recommended 5 year followup. Pap smear: 04/14/2013. Hepatitis C screening results: 06/01/2016. Bone density scan: 04/25/2012. Lipid panel: 06/02/2017. Immunization History Administered Date(s) Administered ??? Influenza, [...] None Social History Narrative She is . 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 She also helps care for her grandchildren. History Drug Use No History Alcohol Use [...] detachment Sister ??? Cancer Brother laryngeal cancer VITAL SIGNS BP 142/64 (BP Location: Left arm, Patient Position: Sitting, Cuff Size: Regular) Pulse 80 Temp 36.7 ??C (Temporal) Resp 16 Ht 159 cm Wt 56.4 kg LMP (LMP Unknown) BMI 22.33 kg/m?? PHYSICAL EXAMINATION General: Patient is alert [...] without mass. Genitalia: External genitalia without lesions. Speculum exam was brief; cervix is normal in appearance. Bimanual exam reveals small nontender uterus and adnexa. Extremities: Within normal limits. Skin: No rashes or suspicious lesions noted on exposed skin. DIAGNOSTICS PHQ-9 Flowsheet Row Comprehensive Visit from 06/02/2017 in Department of Family Medicine in [place], [place] Office Visit from 03/08/2017 in Department of Family Medicine in [place], [place] OP Visit from 06/01/2016 in [facility] OP Visit from 05/30/2015 in [facility] OP Visit from in [facility] PHQ-9 Total Score (max 27) 1 0 0 0 4 LABORATORY: BMP and lipid panel results: pending. ASSESSMENT / PLAN #1 Health care maintenance. She is encouraged to achieve and maintain healthy body weight through diet and exercise. She is reminded of the need for monthly self-breast exam, yearly eye and regular dental visits. Mammogram will be updated today. Fasting labs will be checked today including BMP and lipid panel; she will be notified of the results. Immunizations are up-to-date; a high dose influenza vaccine was given today. #2 Personal history of adenomatous colon polyps. She will be due for a colonoscopy in October this year. #3 Migraine headaches. Continue with as needed use of Imitrex. #4 Influenza-like illness. There is no evidence for bacterial process on exam. Continue with symptomatic measures. Follow up The patient will contact the clinic with any new or worsening symptoms. This document serves as a record of services personally performed by Luisa Irealnd MD. It was created on their behalf by Beryl Augustine, a trained medical assistant prn. The creation of this record is based on the scribe's personal observations and the provider's statements to them. This document has been arti cked and approved by the attending provider. E POURER documented in this encounter Plan of Treatment Not on filedocumented as of this encounter Procedures Procedure Name Priority Date/Time Associated Diagnosis Comme nts LIPID PANEL, S Routine 06/02/2017 11:15 AM Screening Lipid Res ults for this LADLE POURER procedure are i n the results section. BASIC METABOLIC Routine 06/02/2017 11:15 AM Screening Lipid Re sults for this PANEL, S/P LADLE POURER procedure are i n the results section. documented in this encounter Results BMD [...] DENSITY SPINE HIPS COMPARISON: 2012, 2007, 2005 Closing Manager/Model: [employer] FINDINGS: ?? LUMBAR SPINE L1-L4 included unless [...] DENSITY SPINE HIPS COMPARISON: 2012, 2007, 2005 Closing Manager/Model: [employer] FINDINGS: LUMBAR SPINE L1-L4 included unless otherwise [...] -2.5 or less Osteoporosis Impression: Osteoporosis. Luisa UGARTE DXA PROCEDURES BMP (Basic Metabolic Panel) (06/02/2017 11:15 AM LADLE POURER) P athologist Signature Potassium, S 4.5 3.6 - 5.2 06/02/2017 [facility] mmol/L 3:49 PM [facility] [place] [facility] Sodium, S 139 135 - 145 06/02/2017 [facility] mmol/L 3:49 PM [facility] [place] [facility] Chloride, S 98 98 - 107 06/02/2017 [facility] mmol/L 3:49 PM [facility] [place] [facility] Bicarbonate, S 28 22 - 29 06/02/2017 [facility] mmol/L 3:49 PM [facility] [place] [facility] Anion Gap 13 7 - 15 06/02/2017 [facility] 3:49 PM [facility] [place] [facility] BUN (Blood Urea 10 6 - 21 06/02/2017 [facility] Nitrogen), S mg/dL 3:49 PM [facility] [place] [facility] Creatinine 0.88 0.59 - 06/02/2017 [facility] 1.04 mg/dL 3:49 PM [facility] [place] [facility] eGFR 67 >=60 06/02/2017 [facility] Non-Black/Afric mL/min/BSA 3:49 PM [facility] [place] [facility] Comment: ----ADDITIONAL INFORMATION---- Estimated GFR calculated using the 2009 CKD_EPI creatinine equation. eGFR Black/ 77 >=60 mL/min/BSA 06/02/2017 3:49 PM [facility] [place] [facility] [place] [facility] Comment: ----ADDITIONAL INFORMATION---- Estimated GFR calculated using the 2009 CKD_EPI creatinine equation. Calcium, Total, S 10.0 8.9 - 10.1 mg/dL 06/02/2017 3 :49 PM [facility] [place] [facility] Glucose, S 88 70 - 140 mg/dL 06/02/2017 3:49 PM [facility] [place] [facility] Specimen Anatomical Collection Method Collection Time Receive d Time (Source) Location / / Volume Laterality Blood (Blood, 06/02/2017 11:15 06/02/2017 3:34 Venous) AM LADLE POURER PM [facility] Luisa Roy M.D. LAB BLOOD ADD-ON Performing Organization Address City/State/ZIP Code Phon e Number [facility] [place] [address] [place] [address] LAB (ABNORMAL) Lipid Panel (06/02/2017 11:15 AM [facility]) athologist Signature Cholesterol, 208 (H) mg/dL 06/02/2017 [facility] Total 3:49 PM LADLE POURER [facility] [place] [facility] Comment: ----REFERENCE VALUE---- Desirable: < 200 Borderline high: 200 - 239 High: > or = 240 Triglycerides 112 mg/dL 06/02/2017 3:[address] [facility] [place] [facility] Comment: ----REFERENCE VALUE---- Normal: <150 Borderline high: 150-199 High: 200-499 Very high: > or =500 Cholesterol, HDL, S 68 >=50 mg/dL 06/02/2017 3:49 PM LADLE POURER [facility] [place] [facility] Calculated LDL 118 mg/dL 06/02/2017 3:49 PM LADLE POURER [facility] [place] [facility] Comment: ----REFERENCE VALUE---- Desirable: <100 Above Desirable: 100-129 Borderline high: 130-159 High: 160-189 Very high: > or =190 Cholesterol, Non-HDL, 140 mg/dL 06/02/2017 3:49 PM LADLE POURER [facility] [place] [facility] Comment: ----REFERENCE VALUE---- Desirable: <130 Above Desirable: 130-159 Borderline high: 160-189 High: 190-219 Very high: > or =220 Specimen Anatomical Collection Method Collection Time Receive d Time (Source) Location / / Volume Laterality Blood (Blood, 06/02/2017 11:15 06/02/2017 3:34 Venous) AM LADLE POURER PM LADLE POURER Luisa Roy M.D. LAB BLOOD ADD-ON Performing Organization Address City/State/ZIP Code Phon e Number [facility] [address] [address] LAB documented in this encounter Visit Diagnoses Diagnosis Screening Osteoporosis - Primary Screening Examination Diabetes Mellitus Screening Lipid Screening Osteoporosis documented in this encounter Additional Health Concerns Assessment Noted Time PHQ-9 Depression Total Score: 1 06/02/2017 9:34 AM LADLE POURER documented as of this encounter Care Teams Wilton Weaver Relationship Specialty Start Date End Date Luisa Roy M.D. PCP - General 10/01/16 10/10/192199 [address] [phone] documented as of this encounter
--- OUTSIDE RECORDS SUMMARY | 2022-02-13 09:17 | XMS_ITS | Encounter Summary ---
:1945 Author Organization [facility] Address [address] [place] [address] Care Team Providers Name Role Phone Luisa Roy M.D. Primary Care Provider [phone] Encounter Details Date Type Department Care Team Description 06/14/2018 Hospital Encounter Department of Chitra salcido Mammogram Radiology in Luisa mendez, Breast Cancer [place], [place] Jac[place]elyn [address] [facility] [address] [place], [place] [phone] Social History Tobacco Use Types Packs/Day [...] Comments Diagnosis BI BREAST RAD - Routine 06/14/2018 10:05 Screening Results fo r this SCREENING (most inpatients AM VENEER DRIER FEEDER Mammogram Breast procedu re are in BILATERAL and all Cancer the results outpatients) section. documented in this encounter Results BI Breast Screening Bilateral (06/14/2018 10:05 AM VENEER DRIER FEEDER) Anatomical Region Laterality Modality Breast, Breast Imaging RST LOS, Breast Imaging ARZ LOS, [place] [address] Bilateral Mammography Imaging FLA LOS Specimen (Source) Anatomical Collection Method Collection Time Re ceived Time Location / / Volume Laterality 06/14/2018 11:19 AM V[facility]ER FEEDER Impressions 06/14/2018 11:20 AM VENEER DRIER FEEDER IMPRESSION: ??Negative. RECOMMENDATION: ??Annual Screening Mammo gram ASSESSMENT: ??BI-RADS: 1: Negative. Narrative 06/14/2018 11:20 AM V[facility] DRIER FEEDER EXAM: ??BI BREAST SCREENING BILATERAL Current study was evaluated with a Bundle Buyu ter Aided Detection (CAD) system. INDICATION: ??Screening mammogram. COMPARISON: ??Prior exam(s) were availab le and reviewed for comparison. DENSITY: ??c. The breast(s) are heteroge neously dense, which may obscure small masses. FINDINGS: ??No mammographic findings of malignancy. Procedure Note Diamante Corona M.D. - 06/14/2018Forma tting of this note [...] Depression Total Score: 1 06/02/2017 9:34 AM VENEER DRIER FEEDER documented as of this encounter Care Teams Doctor Of Podiatric Medicine Relationship Specialty Start Date End Date Luisa Roy M.D. PCP - General 10/01/16 10/10/19 [address] [place] [phone] documented as of this encounter
--- OUTSIDE RECORDS SUMMARY | 2022-02-13 09:17 | XMS_ITS | Encounter Summary ---
:1945 Author Organization [facility] Address [address] [place] [address] Care Team Providers Name Role Phone Luisa Roy M.D. Primary Care Provider Reason for Visit Reason Onset Date Comments Increase in pain 10/27/2018 Encounter Details Date Type Department Care Team Description 10/27/2018 Clinical Communication Department of [facility] Beka Hmuphrey Increase in pain Medicine, [place], [facility], in [place], [place] [address] [facility] [place] [phone] Social History Tobacco Use Types Packs/Day Years [...] encounter Miscellaneous Notes Telephone Encounter - Cara Alston L.P.N. - 10/27/2018 2:48 PM CDT SUBJECTIVE CHIEF COMPLAINT / REASON FOR CALL Increase in pain INFORMATION DISCUSSED Spoke to patient with patient given findings of neg for UTI. Per patient she requested orders and referal for ct urogram at [facility] be put on hold at this time due to patient stating painhas become so intense she is reporting to [facility] emergency room to be evaluated. Patient will return call to clinic after visit to er with advisement PLAN Disposition/Recommendation: report to the nearest emergency department Information: patient/caller able to repeat back in their own words Caller agreeable to plan of care: yes The following references were used: none Telephone Encounter - Luisa Roy M.D. - 10/27/2018 1:06 PM CDT The urine is negative. If she is having pain radiating into the left flank, she need CT scan to further evaluate. Please order CT urogram to [place] [id number]. Telephone Encounter - Michelle Tovar L.P.N. - 10/27/2018 8:20 AM CDT Spoke with Isadora and she stated that her pain in the ureter is worse and that it is going up to the left side of groin area. Wanting to know what the results are of her urine. Telephone Encounter - Norma Ohara - 10/27/2018 7:59 AM CDT Reason for Communication: Patient is calling in regards to her labs. Patient is stating that she is having an increase in pain and has gone up into the left side. Current Can Nursing/Provider leave a detailed message: No answering machine Action Needed: Please review and advise. Name of Medication (if relevant): documented in this encounter Plan of Treatment Not on filedocumented as of this encounter Visit Diagnoses Not on filedocumented in this encounter Additional Health Concerns Assessment Noted Time PHQ-9 Depression Total Score: 1 06/02/2017 9:34 AM TABLE GAMES MANAGER documented as of this encounter Care Teams Process Tank Tender Relationship Specialty Start Date End Date Luisa Roy M.D. PCP - General 10/01/16 10/10/[address] [phone] documented as of this encounter
--- OUTSIDE RECORDS SUMMARY | 2022-02-13 09:18 | XMS_ITS | Encounter Summary ---
:1945 Author Organization [facility] Address [address] [place] [address] Care Team Providers Name Role Phone Unavailable Primary Care Provider Unavailable Encounter Details Date Type Department Care Team Description 08/17/2014 Hospital Encounter HX [facility] Oc Barnett, DETENTION DEPUTY, C.N.P. [address] [place], [place] [phone] (Wo rk) Social History Tobacco Use Types Packs/Day Years Used Date Smoking Tobacco: Never Assessed Physical Activity Answer Date Recorded On average, [...] Sign Reading Time Taken Comments Blood Pressure 130/82 08/17/2014 10:51 AM CDT Pulse 74 08/17/2014 10:51 AM CDT Temperature - - Respiratory Rate - - Oxygen Saturation - - Inhaled Oxygen Concentration - - Weight 54.6 kg (120 lb 5.9 oz) 08/17/2014 10:51 AM CDT Height 162 cm (5' 3.78) 08/17/2014 10:51 AM CDT Body Mass Index 20.8 08/17/2014 10:51 AM CDT documented in this encounter Medications at Time of Discharge Medication Sig Dispensed Refills Start Date End Date calcium carbonate-vitamin Chew 1 tablet. 0 2009 D3 1,250 mg (500 mg calcium)-400 unit per chewable tablet LACTOBACILLUS ACIDOPHILUS Take by mouth daily. 0 10/05/2012 (ACIDOPHILUS ORAL) multivitamin tablet Take 1 tablet by 0 06/28/2009 mouth. documented as of this encounter Progress Notes Oc Zafar, ORION, C.N.P. - 08/17/2014 10:42 AM CDT [id number] CHIEF COMPLAINT/REASON FOR VISIT Vaginitis. HISTORY OF PRESENT ILLNESS Isadora is a 69-year-old patient who I last saw in the Department of Obstetrics and Gynecology on 08/31/2013 for her recurrent vaginitis. She was doing better at that point in time but does have history of diagnoses of ureaplasma and vaginal atrophy. She did not tolerate vaginal estrogen as well and, therefore, is using at homeopathic remedy for her vaginal atrophy that has been working extremely well for her. About a week ago though, she started having symptoms of vulvovaginal itching and swelling andsome vaginal odor. She states that she increased her acidophilus from 1 to 3 tablets per day at thatpoint in time. She started placing an ice pack on her bottom when she went to bed and she noted thatthe homeopathic remedy, which is a gel that she has been using made of green tea and chamomile that had been working for her very well for her vaginal dryness, started to irritate her within the last week so she has she has stopped using it. She does admit that her stress has been even higher recentlythan it had been before. She notes that she and her have not been sexually active for about a year now, so she does not believe that he could have passed anything on to her at all. She really has not noticed any discharge. She has had no burning with urination, urgency or frequency. No fevers,chills or body aches. She does note that her diverticulosis has been irritating her a little bit more recently as well. Otherwise no other concerns for me today. MEDICATIONS 1. Flovent. 2. Imitrex. 3. Lorazepam. 4. Acidophilus. 5. Potassium citrate. 6. ProAir HFA. 7. Tylenol. 8. Triamcinolone topical ointment (prescription provided today). ALLERGIES 1. Ciprofloxacin, reaction tendinitis. 2. Diflucan, reaction blister and swelling of the throat. 3. Metronidazole, reaction tendinitis. 4. Sulfa drugs, reaction nausea. PAST MEDICAL/SURGICAL HISTORY Reviewed in EMR. VITAL SIGNS Heart rate 74, blood pressure 130/82. Height 162, weight 54.6, BMI 20.8. PHYSICAL EXAMINATION GENERAL: She is a well-appearing female, in no acute distress. ABDOMEN: Soft and nontender. No organomegaly. No suprapubic pressure. No pelvic masses or tenderness. PELVIS: Her labia minora do appear swollen and erythemic. The introitus is also erythemic. Atrophy is noted throughout and dryness is noted throughout. Upon speculum examination, vaginal mucosa appearsatrophic and dry. No vaginal discharge is present. No erythema within the vagina. Cervix is visualized, appears atrophic but otherwise intact and without lesions. Ureaplasma swab obtained. Wet prep swab obtained. IMPRESSION/REPORT/PLAN Vaginitis. She does have definite erythema and swelling at the introitus. I am going to go ahead andprovide her some triamcinolone for immediate relief of her symptoms. We will run the wet prep and ureaplasma testing and I will call her on Wednesday, either at home at [phone] or on her cell at [phone] those results. She is planning a trip on Wednesday and would like to be comfortable for that long road trip out of state so I would like to get her the results before she leaves town on Wednesday. At this point, she has no additional concerns or questions. Oc Zafar CNP/rolando Electronically Signed By: OC ZAFAR RN, CNP On: 08/20/2014 08:34 AM Source: [facility] MHSDOLBEYNONRADSYS Document Id: [id number] documented in this encounter Miscellaneous Notes Telephone Encounter - Conversion, Historical Provider Ser - 08/20/2014 2:34 PM CDT *Phone Message/Oc Zafar Document Contains Addenda Addendum by CO ZAFAR RN, CNP on 21 Aug 2014 10:15:54 CDT Called her with results, all of which were normal. She will continue the ointment up to 2 weeks. Addendum by JOYCE AMIN on 20 Aug 2014 16:14:01 CDT From: JOYCE AMIN (SERENA Zafar Nurse) To: OC ZAFAR RN, CNP; Sent: 08/20/2014 16:14:01 CDT Subject: FW: *Phone Message/Oc Zafar Addendum by NGUYỄN HOROWITZ LPN on 20 Aug 2014 14:36:29 CDT From: NGUYỄN HOROWITZ LPN ( Obstetrics/Gynecology Nurse) To: SERENA Zafar Nurse; Sent: 08/20/2014 14:36:29 CDT Subject: FW: *Phone Message/Oc Zafar From: LISSETTE ASHLEY ( [employer] Manager) To: Obstetrics/Gynecology Nurse; Sent: 08/20/2014 14:34:06 CDT Subject: *Phone Message/Oc Zafar Caller is: ( x ) Patient ( ) Mother ( ) Father ( ) Spouse ( ) Daughter ( ) Son ( ) Pharmacy ( ) Other: Physician: Oc Zafar Patient MRN #: Reason for Call: Message: S Patient is waiting for test results from her appointment on Wednesday. Then she needs to drive in to [place] from [place] to pickle cutter her prescription so she needs to know the results soon. B A R Please call patient back at [phone] to advise. Advice/Action: Source used: ( ) Verbalizes understanding of instructions ( ) Instructed to call back if symptoms worsen or do not resolve ( ) Refused to see provider ( ) Appointment Scheduled ( ) OK to leave message on voice mail ( ) Patient told to expect return call: ( ) today ( ) tomorrow ( ) next work day ( ) Patient's email ( ) Patient told physician out of office, will call upon return call on ( ) ( ) Patient told physician out of office, routed to other physician ( ) Other ( ) Call back telephone number ( ) Call back cell phone number ( ) Source: [facility] Document Id: [id number] Miscellaneous - Oc Zafar, DETENTION DEPUTY, C.N.P. - 08/17/2014 11:16 AM CDT Ambulatory Patient Summary [facility] [address] [place] [id number] Visit Information Name: ISADORA BACK [facility] Number: [id number] Current Date: 08/17/2014 11:16:15 Physicians Attending Provider: OC ZAFAR RN BANK OFFICER Primary Care Provider: LUI ALVARADO MD ISADORA BACK has been given the following list of follow-up instructions, medication list, and patient education materials: Follow-up Instructions Your Medications Here is a list of your medications. It is important to take your medications as directed. Use a pillbox or chart to help remind you to take your medications. Please let your doctor or nurse know if you have problems taking your medications. Medication/Strength How to Take Indications/Special Instructions/Comments/Notes for Patient Medication Changes/Routing acetaminophen (Tylenol) Oral albuterol (ProAir HFA 90 mcg/inh inhalation aerosol) 2 puff(s), Inhalation, every 4 hours as needed for Wheezing fluticasone (Flovent HFA 110 mcg/inh inhalation aerosol) 2 puff(s), Inhalation, two times a day LORazepam (lorazepam 0.5 mg oral tablet) 1 Tablet(s), Oral, once a day (at bedtime) as needed for Anxiety Misc Prescription (Misc Prescription) 1 tab, Oral, once a day Acidphollis potassium citrate (potassium citrate) Oral SUMAtriptan (Imitrex 25 mg oral tablet) 1 Tablet(s), Oral, once as needed for Migraine headache repeat after one hour if needed triamcinolone topical (triamcinolone 0.1% topical ointment) 1 lidia, Topical, three times a day New Routed to [facility] [address] [place] [address] Stop Taking the Following Medications: Medication list as of 08-17-14 11:16 Attention: If you have any medications at home that are not on this list, DO NOT take them until youcontact your provider for clarification. Give a copy of your medication list to your primary care provider. Update your medication list any time medications or doses are changed and carry your medication list at all times in case of emergency. Electronically Signed By: OC ZAFAR RN, CNP Signed On:17-AUG-2014 11:16:10 Your Allergies & Intolerances Substance Reaction Symptoms Category Comments ciprofloxacin Tendonitis Drug sulfa drugs Drug Diflucan blister Drug Diflucan swelling of throat Drug metroNIDAZOLE Tendonitis Drug Your Problem List Problem Status Onset Comments Migraine headache Active Rhinitis, Allergic Active Diverticulitis of colon NOS Active Atrophic vaginitis Active Headache Active 02/24/2013 Anxiety disorder NOS Active Your Upcoming Appointments Date Time Location Provider No Appointments found Attention: Contact your local Clinic if further appointment detail needed. Your Goals/Additional instructions: Source: [facility] POWERCHART Document Id: [id number] Miscellaneous - Oc Zafar APRN, C.N.P. - 08/17/2014 11:16 AM CDT Ambulatory Discharge Medication List [facility] [address] [place] [id number] Visit Information Name: ISADORA BACK [facility] Number: [id number] Visit Date: 08/17/2014 11:16:13 Attending Provider: OC ZAFAR RN BANK OFFICER Primary Care Provider: LUI ALVARADO MD ISADORA BACK has been given the following list of medications: Your Medications It is important to take your medications as directed. Use a pill box or chart to help remind you to take your medications. Please let your doctor or nurse know if you have problems taking your medications. Medication/Strength How to Take Indications/Special Instructions/Comments/Notes for Patient Medication Changes/Routing acetaminophen (Tylenol) Oral albuterol (ProAir HFA 90 mcg/inh inhalation aerosol) 2 puff(s), Inhalation, every 4 hours as needed for Wheezing fluticasone (Flovent HFA 110 mcg/inh inhalation aerosol) 2 puff(s), Inhalation, two times a day LORazepam (lorazepam 0.5 mg oral tablet) 1 Tablet(s), Oral, once a day (at bedtime) as needed for Anxiety Misc Prescription (Misc Prescription) 1 tab, Oral, once a day Acidphollis potassium citrate (potassium citrate) Oral SUMAtriptan (Imitrex 25 mg oral tablet) 1 Tablet(s), Oral, once as needed for Migraine headache repeat after one hour if needed triamcinolone topical (triamcinolone 0.1% topical ointment) 1 lidia, Topical, three times a day New Routed to [facility] [address] [place] [address] Stop Taking the Following Medications: Medication list as of 08-17-14 11:16 Attention: If you have any medications at home that are not on this list, DO NOT take them until youcontact your provider for clarification. Give a copy of your medication list to your primary care provider. Update your medication list any time medications or doses are changed and carry your medication list at all times in case of emergency. Electronically Signed By: OC ZAFAR RN BANK OFFICER Signed On:17-AUG-2014 11:16:10 Additional Information: Source: [facility] POWERCHART Document Id: [id number] Miscellaneous - Yves Gamez R.N. - 08/17/2014 10:51 AM CDT Adult Finishing Machine Operator Automatic Intake/History Adult Finishing Machine Operator Automatic Intake/History Entered On: 08/17/2014 10:51 CDT Performed On: 08/17/2014 10:51 CDT by YVES CHAVEZ Intake Chief Complaint : vaginal infection Peripheral Pulse Rate : 74 /min Systolic Blood Pressure : 130 mmHg Diastolic Blood Pressure : 82 mmHg NIBP Mean : 98 mmHg BP Location : Right upper extremity Blood Pressure Cuff Size : Regular Height : 162 cm(Converted to: 5 ft 4 inch(es), 64 inch(es)) Actual Weight : 54.6 kg(Converted to: 120 lb 6 oz) Dosing Weight Clinic : 54.6 kg Clinic BSA : 1.57 Body Mass Index : 20.8 kg/m2 YVES CHAVEZ - 08/17/2014 10:51 CDT General Info Languages : Yoruba Is Patient Female and 13-50 no hysterectomy : No YVES CHAVEZ - 08/17/2014 10:51 CDT Subjective Pain Symptoms : No YVES CHAVEZ 08/17/2014 10:51 CDT Dependent Habits Tobacco Use/Currently Using : No Exposure to Tobacco Smoke : Other: quit smoking at age 22 Smoking Status : Former smoker YVES CHAVEZ 08/17/2014 10:51 CDT Caffeine Use Grid Caffeine Use : Current Type : Coffee, Soft drinks Frequency : Daily Amount : 4 Last Use : today YVES CHAVEZ - 08/17/2014 10:51 CDT Recreational Drug Use Grid Drug Use : None YVES CHAVEZ 08/17/2014 10:51 CDT ID Screen Drug Resistant Organism : No Travel Within Last 21 Days : No Contact with someone with Ebola : No YVES CHAVEZ - 08/17/2014 10:51 CDT Source: [facility] POWERCHART Document Id: [id number] CDT!37 documented in this encounter Plan of Treatment Not on filedocumented as of this encounter Procedures Procedure Name Priority Date/Time Associated Comments Diagnosis UREAPL PCR SRC Routine 08/17/2014 11:00 AM Result s for this CDT procedure are i n the results section. UREAPLASMA UREA PCR Routine 08/17/2014 11:00 AM R esults for this CDT procedure are i n the results section. UREAPLASMA PARV PCR Routine 08/17/2014 11:00 AM R esults for this CDT procedure are i n the results section. WET PREP EXAM, Routine 08/17/2014 11:00 AM Result s for this UROGENITAL CDT procedure are i n the results section. documented in this encounter Results HX-Ureaplasma Parv PCR (08/17/2014 11:00 AM CDT) Analysis Performed At Patho logist Time Signature Ureaplasma Negative POWERCHART parvum PCR Specimen (Source) Anatomical Collection Method Collection Time Re ceived Time Location / / Volume Laterality 08/17/2014 11:00 AM CDT Narrative POWERCHART - 08/20/2014 4:01 PM CDT ADDITIONAL INFORMATION Laboratory developed test. Test Performed by: [address] [address] Sport Intern: Giacomo Gatica II, M.D., Ph.D. Oc Zafar APRN CEldaN.PElda LAB HISTORICAL ORDERS Performing Organization Address City/State/ZIP Code Phon e Number POWERCHART HX-Ureaplasma Urea PCR (08/17/2014 11:00 AM CDT) Patholo gist Method Time Signature Ureaplasma Negative POWERCHART urealyticum PCR Specimen (Source) Anatomical Collection Method Collection Time Re ceived Time Location / / Volume Laterality 08/17/2014 11:00 AM CDT Oc Zafar APRN, C.N.P. LAB HISTORICAL ORDERS Performing Organization Address City/[facility]/ZIP Code Phon e Number POWERCHART HX-Ureapl PCR Src (08/17/2014 11:00 AM CDT) athologist Signature HXUreapl PCR Vagina POWERCHART [facility] Specimen (Source) Anatomical Collection Method Collection Time Re ceived Time Location / / Volume Laterality 08/17/2014 11:00 AM CDT Oc Zafar APRN, C.N.P. LAB HISTORICAL ORDERS Performing Organization Address [facility] Code Phon e Number POWERCHART Wet Prep Exam, Urogenital (08/17/2014 11:00 AM CDT) athologist Signature HXWet Prep POWERCHART HXFinal No yeast, POWERCHART Trichomonas , clue cells, or sperm seen. Specimen (Source) Anatomical Collection Method Collection Time Re ceived Time Location / / Volume Laterality Vagina 08/17/2014 11:00 AM CDT Oc Zafar APRN, C.N.P. LAB MICROBIOLOGY - GENE RAL ORDERABLES Performing Organization Address City/[facility] Code Phon e Number POWERCHART documented in this encounter Visit Diagnoses Not on filedocumented in this encounter
--- OUTSIDE RECORDS SUMMARY | 2022-02-13 09:18 | XMS_ITS | Encounter Summary ---
:1945 Author Organization [facility] Address [address] [place] [address] Care Team Providers Name Role Phone Unavailable Primary Care Provider Unavailable Encounter Details Date Type Department Care Team Description 05/29/2014 Hospital Encounter HX [facility] FB FAMILYPRA Luisa Crockett i, M.D. [address] [place] [address] (Wo rk) Social History Tobacco [...] Sign Reading Time Taken Comments Blood Pressure 128/82 05/29/2014 2:11 PM PARTNER CCO Pulse 84 05/29/2014 2:11 PM PARTNER CCO Temperature - - Respiratory Rate - - Oxygen Saturation - - Inhaled Oxygen Concentration - - Weight 56.5 kg (124 lb 9 oz) 05/29/2014 2:11 PM PARTNER CCO Height 162 cm (5' 3.78) 05/29/2014 2:11 PM PARTNER CCO Body Mass Index 21.53 05/29/2014 2:11 PM PARTNER CCO documented in this encounter Medications at Time of Discharge Medication Sig Dispensed Refills Start Date End Date calcium carbonate-vitamin Chew 1 tablet. 0 2009 D3 1,250 mg (500 mg calcium)-400 unit per chewable tablet LACTOBACILLUS ACIDOPHILUS Take by mouth daily. 0 10/05/2012 (ACIDOPHILUS ORAL) multivitamin tablet Take 1 tablet by 0 06/28/2009 mouth. documented as of this encounter Progress Notes Luisa Whitten M.D. - 05/29/2014 1:53 PM CST FM-LE CHIEF COMPLAINT/REASON FOR VISIT Sore on tongue. HISTORY OF PRESENT ILLNESS Isadora has had a sore spot on the right side of the tip of her tongue for several months. It seems to be somewhat larger and more sore over the past couple of weeks. She has not injured the area. She hasnot bitten down on it. She is a never smoker and does not drink alcohol. MEDICATIONS Reviewed and are as outlined in the EMR. VITAL SIGNS Temperature 36, heart rate 84, respirations 16, blood pressure 128/82. Height is 162 cm. Weight is 56.5 kg. PHYSICAL EXAMINATION GENERAL: She appears well and in no distress. ENT: TMs are normal. Nasal mucosa is pink and moist without purulent discharge. Just to the right ofthe tip of the tongue is a small papule which appears to be simply a hypertrophied papilla. No otherlesions are noted. There are no white spots. No oral ulcers. NECK: Without adenopathy. LUNGS: Clear. HEART: Regular rate and rhythm. IMPRESSION/REPORT/PLAN Intraoral lesion appears to be hypertrophied papilla. She will continue to monitor the area. We can have her see Ear, Nose, and Throat if there are further concerns. Luisa Ty M.D./rolando Electronically Signed By: LUISA WHITTEN MD On: 06/22/2014 08:43 AM Source: [facility] MHSDOLBEYNONRADSYS Document Id: [id number] NER CCO documented in this encounter Miscellaneous Notes Miscellaneous - Elda García R.N. - 08/06/2014 2:01 PM CDT lorazepam Document Contains Addenda Addendum by JUAN MESSER on 07 August 2014 14:37:06 CDT Faxed to [facility]. Addendum by LUISA WHITTEN MD on 07 August 2014 12:55:04 CDT From: LUISA WHITTEN MD Sent: 08/07/2014 12:55:03 CDT Subject: RE:lorazepam Approved Order:LORazepam (lorazepam 0.5 mg oral tablet) 1 tab(s) PO Bedtime Qty: 15 tab(s) Refills: 1 Substitutions Allowed PRN Anxiety Print - [id number] Signed by LUISA WHITTEN MD 08/07/2014 12:54:17 From: ELDA GARCÍA ( [place] Medication Refill) To: LUISA WHITTEN MD; Cc: MARCIO Ireland Nurse; Sent: 08/06/2014 14:01:04 CDT Subject: lorazepam On hold pending signature Order:LORazepam (lorazepam 0.5 mg oral tablet) 1 tab(s) PO Bedtime Qty: 15 tab(s) Refills: 1 Substitutions Allowed PRN Anxiety Print - [id number] on [employer] (from [id number]) in session 354 Caller is: ( ) Patient ( ) Mother ( ) Father ( ) Spouse ( ) Daughter ( ) Son ( scott/carlos ) Pharmacy ( ) Other: Provider: [facility] Pharmacy: Name of Medications Needing Refill: lorazepam 0.5 mg Last Refill Date: 03/07/14 qty 15 Additional Information: 1 tab po hs prn anxiety..... Last / Future Appointment: 05/29/13 Disposition: ( x ) Send to Pharmacy ( ) Call to Pharmacy ( ) Patient will pick pulling machine operator Script ( ) Mail Rxto Patient Source: [facility] POWERCHART Document Id: [id number] Miscellaneous - Conversion, Historical Provider Ser - 05/29/2014 2:11 PM PARTNER CCO Adult Golf Professional Intake/History Adult Golf Professional Intake/History Entered On: 05/29/2014 14:13 PARTNER CCO Performed On: 05/29/2014 14:11 PARTNER CCO by ELENO MORALES LPN Intake Chief Complaint : sore on tongue Temperature Core : 36.0 DegC(Converted to: 96.8 DegF) (LOW) Peripheral Pulse Rate : 84 /min Systolic Blood Pressure : 128 mmHg Diastolic Blood Pressure : 82 mmHg NIBP Mean : 97 mmHg BP Location : Left upper extremity Blood Pressure Cuff Size : Regular Height : 162 cm(Converted to: 5 ft 4 inch(es), 64 inch(es)) Actual Weight : 56.5 kg(Converted to: 124 lb 9 oz) Dosing Weight Clinic : 56.5 kg Clinic BSA : 1.59 Body Mass Index : 21.53 kg/m2 ELENO MORALES LPN - 05/29/2014 14:11 PARTNER CCO General Info Information Given By : Patient Languages : Cuban Is Patient Female and 13-50 no hysterectomy : No ELENO MORALES [facility] - 05/29/2014 14:11 PARTNER CCO Subjective Pain Symptoms : No ELENO MORALES [facility] - 05/29/2014 14:11 PARTNER CCO Dependent Habits Tobacco Use/Currently Using : No Exposure to Tobacco Smoke : Other: quit smoking at age 22 Smoking Status : Former smoker ELENO MORALES [facility] - 05/29/2014 14:11 PARTNER CCO Tobacco Use Grid Last Use : quit 1970 ELENO MORALES [facility] - 05/29/2014 14:11 PARTNER CCO Caffeine Use Grid Caffeine Use : Current Type : Coffee, Soft drinks Frequency : Daily Amount : 4 Last Use : today ELENO MORALES [facility] - 05/29/2014 14:11 PARTNER CCO Recreational Drug Use Grid Drug Use : None ELENO MORALES [facility] - 05/29/2014 14:11 PARTNER CCO ID Screen Drug Resistant Organism : No Travel Within Last 21 Days : No ELENO MORALES [facility] - 05/29/2014 14:11 PARTNER CCO Source: [facility] POWERCHART Document Id: [id number] PARTNER CCO!41 documented in this encounter Plan of Treatment Not on filedocumented as of this encounter Visit Diagnoses Not on filedocumented in this encounter
--- OUTSIDE RECORDS SUMMARY | 2022-02-13 09:18 | XMS_ITS | Encounter Summary ---
:1945 Author Organization [facility] Address [address] [place] [address] Care Team Providers Name Role Phone Luisa Roy M.D. Primary Care Provider Encounter Details Date Type Department Care Team Description 03/08/2017 Orders Only Department of Family [place] [facility], Luisa Connolly Average Risk Patient Clinic, in [place] Agu[place] (Primary Dx) [place] [address] [place] [id number] [phone] Social History Tobacco Use Types Packs/Day Years [...] BI Breast Screening Bilateral (06/02/2017 11:02 AM SLIMER) Anatomical Region Laterality Modality Breast Bilateral Mammography Specimen (Source) Anatomical Collection Method Collection Time Re ceived Time Location / / Volume Laterality 06/02/2017 1:18 PM SLIMER Impressions 06/02/2017 1:19 PM SLIMER IMPRESSION: ??Negative. RECOMMENDATION: ??Annual Screening Mammo gram ASSESSMENT: ??BI-RADS: 1: Negative. Narrative 06/02/2017 1:19 PM SLIMER EXAM: ??BI BREAST SCREENING BILATERAL Current study was evaluated with a [employer] Aided Detection (CAD) system. INDICATION: ??Screening mammogram. COMPARISON: ??Prior exams were available for comparison. DENSITY: ??c. The breast(s) are heteroge neously dense, which may obscure small masses. FINDINGS: ??No mammographic findings of malignancy. Procedure Note Sebastian Armstrong M.D. - 06/02/2017Forma tting of this note might be different from the original. EXAM: BI BREAST SCREENING BILATERAL Current study was evaluated with a [employer] Aided Detection (CAD) system. INDICATION: Screening mammogram. [...] Diagnoses Diagnosis Screening Mammogram Average Risk Patient - Primary Screening Mammogram Average Risk Patient documented in this encounter Care Teams Mathematical Statistician Relationship Specialty Start Date End Date Luisa Roy M.D. PCP - General 10/01/16 10/10/[address] [address] documented as of this encounter
--- OUTSIDE RECORDS SUMMARY | 2022-02-13 09:18 | XMS_ITS | Encounter Summary ---
:1945 Author Organization [facility] Address [address] [place] [address] Care Team Providers Name Role Phone Unavailable Primary Care Provider Unavailable Encounter Details Date Type Department Care Team Description 04/09/[address] [facility] [place] [facility] Lui Crockett i, M.D. [address] [place] [address] (Wo rk) Social History Tobacco [...] Sign Reading Time Taken Comments Blood Pressure 110/54 04/09/2015 10:43 AM STRIKE PLATE ATTACHER Pulse - - Temperature - - Respiratory Rate - - Oxygen Saturation - - Inhaled Oxygen Concentration - - Weight 55.5 kg (122 lb 5.7 oz) 04/09/2015 10:43 AM STRIKE PLATE ATTACHER Height 162 cm (5' 3.78) 04/09/2015 10:43 AM STRIKE PLATE ATTACHER Body Mass Index 21.15 04/09/2015 10:43 AM STRIKE PLATE ATTACHER documented in this encounter Medications at Time of Discharge Medication Sig Dispensed Refills Start Date End Date calcium carbonate-vitamin Chew 1 tablet. 0 2009 D3 1,250 mg (500 mg calcium)-400 unit per chewable tablet LACTOBACILLUS ACIDOPHILUS Take by mouth daily. 0 10/05/2012 (ACIDOPHILUS ORAL) multivitamin tablet Take 1 tablet by 0 06/28/2009 mouth. documented as of this encounter Progress Notes Lui Whitten M.D. - 04/09/2015 10:33 AM CST [id number] CHIEF COMPLAINT/ REASON FOR VISIT Hematomas on lower left leg. HISTORY OF PRESENT ILLNESS Isadora is a 70 year old female who presents to the clinic today for hematomas on lower left leg. Isadora misstepped while going down stairs and fell 6 and went to the local emergency room where she was evaluated. The evaluation including an x-ray of her left tibia and fibula and no fractures were found.Today Isadora has areas of swelling and bruising on her lower left leg. She states that the area is notas tender as it had been. She has been using an arnica-montana gel that is meant to help bring the swelling down. Her homeopath also gave her a homeopathic remedy of arnica meant to help with swelling.Isadora has also been elevating and icing her leg. She would also like refills on her Cyclobenzaprine and Lorazepam today. The patient denies any additional questions or concerns at this time. MEDICATIONS Post-visit Medication Reconciliation Reviewed and are as outlined in the EMR includin. Cyclobenzaprine 5 mg, 1 tablet, PO, t.i.d., PRN for muscle spasm for 10 days, renewed today. 2. Lorazepam 0.5 mg, 1 tablet, PO, at bedtime, PRN for anxiety, renewed today. ALLERGIES Diflucan-blister - swelling of throat. Sulfa drugs - nausea. Ciprofloxacin - tendonitis. Metronidazole - tendonitis. SYSTEMS REVIEW Please see HPI for pertinent positives, otherwise rest of ROS negative. PAST MEDICAL/SURGICAL HISTORY 1. 3, para 3. 2. Laparoscopic cholecystectomy. 3. Right breast lumpectomy with unknown pathology. 4. Osteopenia. 5. History of tendonitis of the right knee which she feels was secondary to Levaquin. 6. Diverticulosis with 1 episode of diverticulitis. 7. Anxiety. 8. History of frequent and prolonged URIs. 9. Neck tightness. 10. Plantar fascitis. 11. Migraine headaches. 12. Reactive airways disease. PREVENTIVE SERVICES Tobacco use: none, former smoker. VITAL SIGNS HEIGHT: 162 cm. WEIGHT: 55.5 kg. BMI: 21.15 kg/m2. TEMP: 37.1 Deg C. SYSTOLIC: 110 mmHg. DIASTOLIC: 54 mmHg. PHYSICAL EXAMINATION GENERAL: Patient is alert and oriented times three, in no acute distress, good hygiene and is dressed appropriately. EXTREMITIES: There is an intense area of ecchymosis from just above the popliteal fossa to 10 centimeters distal. There is ecchymosis on the lateral and medial aspects of the calf from the mid-calf to the ankle and on the dorsal lateral aspect of the foot extending to just distal to the second and third MTP joints. There is redness swelling and warmth with fluctuance in two areas in the anterior ruvalcaba; the uppermost is 10 centimeters in length and the lowermost is 8- 9 centimeters in length, both are fluctuant and tender. MENTAL STATUS: PHQ9 score of 4. IMPRESSION/REPORT/PLAN 1. Large hematomas on the lower left leg. Will consult with Dr. Bowles regarding need for continued monitoring vs IND. 2. Muscle spasms. Cyclobenzaprine 5 mg was renewed today. 3. Anxiety. She finds an occasional Ativan 0.5 mg to be helpful, this was renewed today, as above. 4. Follow up. The patient will contact the clinic with any new or worsening symptoms. This document serves as a record of services personally performed by Lui Ireland MD. It was created on their behalf by Beryl Augustine, a trained medical transcription radiology. The creation of this record is based on the scribe's personal observations and the provider's statements to them. This document has been arti cked and approved by the attending provider. Lui Ty M.D./evan Electronically Signed By: LUI WHITTEN MD On: 04/16/2015 12:26 AM Source: [facility] [id number] Document Id: [id number] KE PLATE ATTACHER documented in this encounter Miscellaneous Notes Telephone Encounter - Paula Bose R.N. - 11/01/2015 10:35 AM CDT Pharmacy calling- clotrimazole not in stock Document Contains Addenda Addendum by PAULA BOSE RN on November 05, 2015 07:58:49 CDT Noted. Addendum by ALIN CABRERA CNP on November 05, 2015 07:11:19 CDT From: ALIN CABRERA CNP [facility]; Sent: 11/05/2015 07:11:19 CDT Subject: RE: Pharmacy calling- clotrimazole not in stock Changed to terconazole [facility]: [facility]UL[facility] To: ALIN CABRERA CNP; Sent: 11/01/2015 10:35:20 CDT ! Subject: Pharmacy calling- clotrimazole not in stock Caller is: ( ) Patient ( ) Mother ( ) Father ( ) Spouse ( ) Daughter ( ) Son ( Jeff Nagel [phone] ) Pharmacy ( ) Other: Physician: Demetri Patient MRN #: Reason for Call: Message: S. Rx not in stock. B. Today, patient was prescribed clotrimazole 2% vaginal cream. The pharmacy does not have this in stock. A. Is it ok to change it to terconazole vaginal cream? The pharmacy has two options in stock: 3 day suppository course OR 7 day cream course. R. Please send new Rx to the pharmacy or can call back him back. Advice/Action: Source used: ( ) Verbalizes understanding [...] back cell phone number ( ) Source: [facility] POWERCHART Document Id: [id number] Telephone Encounter - Conversion, Historical Provider Ser - 04/16/2015 3:14 PM CST *Phone Message Document Contains Addenda Addendum by LUI WHITTEN MD on 17 April 2015 12:30:15 STRIKE PLATE ATTACHER From: LUI WHITTEN MD To: MARCIO Ireland Nurse; Sent: 04/17/2015 12:30:15 STRIKE PLATE ATTACHER Subject: RE: *Phone Message ok thanks Addendum by CARA ALSTON LPN on 17 April 2015 11:41:16 STRIKE PLATE ATTACHER From: CARA ALSTON LPN ([facility] Nurse) To: LUI WHITTEN MD; Sent: 04/17/2015 11:41:16 STRIKE PLATE ATTACHER Subject: FW: *Phone Message Addendum by CARA ALSTON LPN on 17 April 2015 11:41:05 STRIKE PLATE ATTACHER patient states she is doing much better and the bumps have gotten soft overnight. patient stats sheis feeling well and will wait a week and if still any issues will make appt too be seen at that time From: JAIR NEAL ([facility] Nurse) [facility]; Sent: 04/16/2015 15:14:43 STRIKE PLATE ATTACHER Subject: *Phone Message Caller is: ( ) Patient ( ) Mother ( ) Father ( ) Spouse ( ) Daughter ( ) Son ( ) Pharmacy ( ) Other: Physician: Patient MRN #: Reason for Call: Message: would like to give update to how she is feeling after fall and last appt call back at [phone] Advice/Action: Source used: ( ) Verbalizes understanding [...] back cell phone number ( ) Source: [facility] POWERCHART Document Id: [id number] Miscellaneous - Cara Alston, L.P.N. - 04/09/2015 10:47 AM CST PHQ-9 PHQ-9 Entered On: 04/09/2015 10:48 STRIKE PLATE ATTACHER Performed On: 04/09/2015 10:47 STRIKE PLATE ATTACHER by CARA ALSTON LPN PHQ-9 Little interest or pleasure in doing things : Not at all Feeling down, depressed, or hopeless : Not at all Trouble falling or staying asleep, or sleeping too much : Nearly every day Feeling tired or having little energy : Several days Poor appetite or overeating : Not at all Feeling bad about yourself or that you are a failure : Not at all Trouble concentrating on things : Not at all Moving or speaking slowly; restless or fidgety : Not at all Thoughts that you would be better off /hurting self : Not at all PHQ-9 Calculated Score : 4 Problems make work, home, or dealing with others : Somewhat difficult CARA ALSTON LPN - 04/09/2015 10:47 STRIKE PLATE ATTACHER Source: [facility] DeckDAQ Document Id: [id number] STRIKE PLATE ATTACHER!13 KE PLATE ATTACHER Miscellaneous - Cara Alston L.P.N. - 04/09/2015 10:46 AM CST Health Assessment Health Assessment Entered On: 04/09/2015 10:47 STRIKE PLATE ATTACHER Performed On: 04/09/2015 10:46 STRIKE PLATE ATTACHER by CARA ALSTON LPN Health Assessment Complete Health Assessment Complete or Modified : Annual Health Assessment Annual Health Assessment Completed : Yes CARA ALSTON LPN - 04/09/2015 10:46 STRIKE PLATE ATTACHER Nutrition Nutrition Risk Factors by History Adult : None CARA ALSTON LPN - 04/09/2015 10:46 STRIKE PLATE ATTACHER Functional Living Situation : Home independently Current Daily Living Assistance : None CARA ALSTON LPN - 04/09/2015 10:46 STRIKE PLATE ATTACHER Dependent Habits Exposure to Tobacco Smoke : Other: quit smoking at age 22 Smoking Status : Former smoker Tobacco 2A : Yes Tobacco Use/Currently Using : No Tobacco Use/Last 30 Days : No Tobacco Use/Last 12 months : No CARA ALSTON LPN - 04/09/2015 10:46 STRIKE PLATE ATTACHER Caffeine Use Grid Caffeine Use : Current Type : Coffee, Soft drinks Frequency : Daily Amount : 4 Last Use : today CARA ALSTON LPN - 04/09/2015 10:46 STRIKE PLATE ATTACHER Alcohol Use : No CARA ALSTON LPN - 04/09/2015 10:46 STRIKE PLATE ATTACHER Recreational Drug Use Grid Drug Use : None CARA ALSTON LPN - 04/09/2015 10:46 STRIKE PLATE ATTACHER Psychosocial Domestic Abuse Concerns : None Behavioral Health Screen/Safety Assmt : No Mandaen Preference : No qualifying data available. CARA ALSTON LPN - 04/09/2015 10:46 STRIKE PLATE ATTACHER Advance Directive Advanced Directives : No Advance Directive Additional Information : No CARA ALSTON LPN - 04/09/2015 10:46 STRIKE PLATE ATTACHER Educ Needs Learning Style Preference Adult Grid Patient : Demonstration, Printed materials, Verbal explanation Family : None CARA ALSTON LPN - 04/09/2015 10:46 STRIKE PLATE ATTACHER [facility] Document Id: [id number] STRIKE PLATE ATTACHER!38 KE PLATE ATTACHER Miscellaneous - Cara Alston L.P.N. - 04/09/2015 10:43 AM CST Adult Paper Cutter Operator Intake/History Adult Paper Cutter Operator Intake/History Entered On: 04/09/2015 10:46 STRIKE PLATE ATTACHER Performed On: 04/09/2015 10:43 STRIKE PLATE ATTACHER by CARA ALSTON LPN Intake Chief Complaint : er follow up to fall on 03/24/2015 receiving contussion on left ruvalcaba LMP Date : Postmenopausal Temperature Core : 37.1 DegC(Converted to: 98.8 DegF) Systolic Blood Pressure : 110 mmHg Diastolic Blood Pressure : 54 mmHg NIBP Mean : 73 mmHg BP Location : Right upper extremity Blood Pressure Cuff Size : Regular Height : 162 cm(Converted to: 5 ft 4 inch(es), 64 inch(es)) Actual Weight : 55.5 kg(Converted to: 122 lb 6 oz) Weight Source : Standing scale Dosing Weight Clinic : 55.5 kg Clinic BSA : 1.58 Body Mass Index : 21.15 kg/m2 CARA ALSTON LPN - 04/09/2015 10:43 STRIKE PLATE ATTACHER General Info Information Given By : Patient Preferred Communication Mode : Verbal Languages : Khmer Is Patient Female and 13-50 no hysterectomy : No CARA ALSTON LPN - 04/09/2015 10:43 STRIKE PLATE ATTACHER Subjective Pain Symptoms : No CARA ALSTON LPN - 04/09/2015 10:43 STRIKE PLATE ATTACHER Dependent Habits Exposure to Tobacco Smoke : Other: quit smoking at age 22 Smoking Status : Former smoker Tobacco 2A : Yes Tobacco Use/Currently Using : No Tobacco Use/Last 30 Days : No Tobacco Use/Last 12 months : No CARA ALSTON BENDING ROLL OPERATOR - 04/09/2015 10:43 STRIKE PLATE ATTACHER Caffeine Use Grid Caffeine Use : Current Type : Coffee, Soft drinks Frequency : Daily Amount : 4 Last Use : today CARA ALSTON BENDING ROLL OPERATOR - 04/09/2015 10:43 STRIKE PLATE ATTACHER Recreational Drug Use Grid Drug Use : None CARA ALSTON [facility] - 04/09/2015 10:43 STRIKE PLATE ATTACHER Source[facility] Document Id: [id number] STRIKE PLATE ATTACHER!40 KE PLATE ATTACHER documented in this encounter Plan of Treatment Not on filedocumented as of this encounter Visit Diagnoses Not on filedocumented in this encounter Additional Health Concerns Assessment Noted Time PHQ-9 Depression Total Score: 4 04/09/2015 10:47 AM CS T documented as of this encounter
--- OUTSIDE RECORDS SUMMARY | 2022-02-13 09:18 | XMS_ITS | Encounter Summary ---
:1945 Author Organization [facility] Address [address] [place] [address] Care Team Providers Name Role Phone Unavailable Primary Care Provider Unavailable Encounter Details Date Type Department Care Team Description 06/02/2016 Hospital Encounter HX [facility] Lui Pearson M.D. [address] [place], [place] [address] (Wo rk) Social History Tobacco Use Types Packs/Day Years Used Date Smoking Tobacco: Former Physical Activity Answer Date Recorded On average, [...] for the very basics like Not h luiaz at all 12/01/2019 food, housing, medical care, [...] Sign Reading Time Taken Comments Blood Pressure - - Pulse - - Temperature - - Respiratory Rate - - Oxygen Saturation - - Inhaled Oxygen Concentration - - Weight - - Height 159 cm (5' 2.6) 06/02/2016 8:57 AM WINDLACE MACHINE OPERATOR Body Mass Index - - documented in this encounter Medications at Time of Discharge Medication Sig Dispensed Refills Start Date End Date calcium carbonate-vitamin Chew 1 tablet. 0 2009 D3 1,250 mg (500 mg calcium)-400 unit per chewable tablet LACTOBACILLUS ACIDOPHILUS Take by mouth daily. 0 10/05/2012 (ACIDOPHILUS ORAL) multivitamin tablet Take 1 tablet by 0 06/28/2009 mouth. documented as of this encounter Miscellaneous Notes Miscellaneous - Lui Whitten M.D. - 06/07/2016 10:25 AM WINDLACE MACHINE OPERATOR Custom Result Letter June 07, 2016 ISADORA BACK [address] [place] [id number] Dear ISADORA BACK, Labs are unremarkable. Hepatitis test is negative. Result Name Current Result Previous Result Normal Range Sodium Lvl (mmol/L) 137 06/01/2016 137 06/13/2015 135 - 145 Potassium Lvl (mmol/L) 4.6 06/01/2016 4.1 06/13/2015 3.6 - 5.2 Chloride (mmol/L) 98 06/01/2016 (L) 96 06/13/2015 98 - 107 CO2 (mmol/L) 27 06/01/2016 28 06/13/2015 22 - 29 AGAP (mmol/L) 12 06/01/2016 13 06/13/2015 7 - 15 Glucose Fasting (mg/dL) 97 06/01/2016 94 06/13/2015 70 - 99 Creatinine (mg/dL) 0.95 06/01/2016 0.9 06/13/2015 0.60 - 1.10 EGFR (MDRD) (mL/min/1.73m2) (L) 58 06/01/2016 >60 06/13/2015 >=60 - EGFR (MDRD) (mL/min/1.73m2) >60 06/01/2016 >60 06/13/2015 >=60 - BUN (mg/dL) 7 06/01/2016 10 06/13/2015 6 - 21 b Calcium Lvl (mg/dL) 9.9 06/01/2016 9.8 06/13/2015 8.8 - 10.3 HCV Ab [facility] Negative 06/01/2016 Negative - [place] Mammo Screening w/ CADD 06/02/2016 05/30/2015 [facility] Sincerely, LUI CRONIN [address] [place] [id number] Electronic Signature Electronically Signed By: LUI WHITTEN MD On: June 07, 2016 This document has images extracted. Source: [facility] POWERCHART Document Id: [id number] Electronically signed by Conversion, [facility] Patient Account Representative [id number] at 09/29/2016 12:06 AM CDT documented in this encounter Plan of Treatment Not on filedocumented as of this encounter Procedures Procedure Name Priority Date/Time Associated Diagnosis Comme nts BI BREAST SCREENING Routine 06/02/2016 9:22 AM Re sults for this BILATERAL WINDLACE MACHINE OPERATOR procedure are i n the results section. documented in this encounter Results BI Breast Screening Bilateral (06/02/2016 9:22 AM WINDLACE MACHINE OPERATOR) Anatomical Region Laterality Modality Breast Bilateral Mammography Specimen (Source) Anatomical Collection Method Collection Time Re ceived Time Location / / Volume Laterality 06/02/2016 9:22 AM WINDLACE MACHINE OPERATOR Addenda Addendum by Provider, Jacquelyn Riggs 06/02/2016 9:22 AM WINDLACE MACHINE OPERATOR RAD^^^OW [place] Mammo Screening w ??CADD 06/02/2016 09:22:32 Impressions 06/02/2016 12:54 PM WINDLACE MACHINE OPERATOR Negative. No mammographic findings of malignancy. ?? RECOMMENDATIONS: Annual screening mammog ana. ?? BI-RADS ASSESSMENT: CODE: 1-NEGATIVE Full field digital mammography is used a nd Computer Aided Detection is performed on the digital mammogram image s. LETTER SENT: L1/2 - negative screen Narrative 06/02/2016 12:54 PM WINDLACE MACHINE OPERATOR EXAM: [place] Mammo Screening w/ CADD INDICATION: Screening. ? COMPARISON: dating back to 2007 DENSITY: b. There are scattered areas of fibroglandular density. ?? FINDINGS: No findings of malignancy. No significant change since prior exams. Procedure Note Salo Morris M.D. / ProviderCharlotte M.D. - 10/05/2016 EXAM: [place] Mammo Screening w/ CADD INDICATION: Screening. COMPARISON: dating back to 2007 DENSITY: b. There are scattered areas of fibroglandular density. FINDINGS: No findings of malignancy. No significant change since prior exams. IMPRESSION: Negative. No mammographic fi ndings of malignancy. RECOMMENDATIONS: Annual screening mammog ana. BI-RADS ASSESSMENT: CODE: 1-NEGATIVE Full field digital mammography is used a nd Computer Aided Detection is performed on the digital mammogram image s. LETTER SENT: L1/2 - negative screen Tayler Long(R), REldaTElda(R)(M) IMG BI PROCEDURES documented in this encounter Visit Diagnoses Not on filedocumented in this encounter
--- OUTSIDE RECORDS SUMMARY | 2022-02-13 09:18 | XMS_ITS | Encounter Summary ---
:1945 Author Organization [facility] Address [address] [place] [address] Care Team Providers Name Role Phone Unavailable Primary Care Provider Unavailable Encounter Details Date Type Department Care Team Description 03/07/2014 Hospital Encounter HX [facility] Lui Crockett i, M.D. [address] [place] [address] (Wo rk) Social History Tobacco [...] Sign Reading Time Taken Comments Blood Pressure 112/76 03/07/2014 1:44 PM ROLL CUTTER Pulse 68 03/07/2014 1:44 PM ROLL CUTTER Temperature - - Respiratory Rate 15 03/07/2014 1:44 PM ROLL CUTTER Oxygen Saturation - - Inhaled Oxygen Concentration - - Weight 56 kg (123 lb 7.3 oz) 03/07/2014 1:44 PM ROLL CUTTER Height 162 cm (5' 3.78) 03/07/2014 1:44 PM ROLL CUTTER Body Mass Index 21.34 03/07/2014 1:44 PM ROLL CUTTER documented in this encounter Medications at Time of Discharge Medication Sig Dispensed Refills Start Date End Date calcium carbonate-vitamin Chew 1 tablet. 0 2009 D3 1,250 mg (500 mg calcium)-400 unit per chewable tablet LACTOBACILLUS ACIDOPHILUS Take by mouth daily. 0 10/05/2012 (ACIDOPHILUS ORAL) multivitamin tablet Take 1 tablet by 0 06/28/2009 mouth. documented as of this encounter H&P Notes Lui Whitten M.D. - 03/07/2014 1:33 PM CST [id number] CHIEF COMPLAINT/ REASON FOR VISIT Review medications, review medical concerns, update preventive services. MEDICATIONS Post-visit Medication Reconciliation 1. Flovent HFA 110 mcg/inh inhalation aerosol 1 puffs, inhalation, b.i.d. 2. Lorazepam 0.5mg oral tablet 1 tab bedtime, PRN anxiety renewed today 3. ProAir HFA 90mcg/inh inhalation aerosol 2 puffs, inhalation, q4hr, PRN wheezing renewed today 4. Tylenol maintenance 5. Imitrex 25mg oral tablet 1 tab once, PRN migraine headache, repeat after one hour if needed renewed today 6. Misc Prescription 1 tab daily, Acidphollis 7. Potassium citrate maintenance ALLERGIES Diflucan-blister, swelling of throat Sulfa drugs-nausea Ciprofloxacin-tendonitis Metronidazole-tendonitis SYSTEMS REVIEW She has a sore on her head that has been there for about 10 days. She has used antibiotic cream. She was seen on 02/21 for plantar fascitis. This appears to be resolving. She has had an episode of constipation but this has resolved. She states that she will get headaches on occasion but is well-managed. She otherwise has no complaints. No headaches, numbness or tingling. No changes in vision or hearing. No sore throat, runny nose, earache or cough. No shortness of breath or chest pain. No abdominal pain or change in bowel habits. No hematuria or dysuria. No vaginal discharge or dyspareunia. No musculoskeletal aches or pains. No lymph node swelling. No easy bruising or bleeding. No excessive thirst or hunger. No mood or behavioral difficulties. PAST MEDICAL/SURGICAL HISTORY 1. 3, para 3. 2. Laparoscopic cholecystectomy. 3. Right breast lumpectomy with unknown pathology. 4. Osteopenia. 5. History of tendonitis of the right knee which she feels was secondary to Levaquin. 6. Diverticulosis with 1 episode of diverticulitis. 7. Anxiety 8. History of frequent and prolonged URIs 9. Neck tightness 10. Plantar fascitis 11. Migraine headaches 12. Reactive airways disease PREVENTIVE SERVICES Tobacco use: None, former smoker Mammogram: To be completed. Lipid panel: 04/14/13 Colonoscopy: 11/10/12 Tetanus booster: 04/03/13 Influenza: 03/07/14 Bone density: 04/25/12 SOCIAL HISTORY She continues to care for grandchildren. She is and helps to operate an [employer]. FAMILY HISTORY Mother is and had breast cancer in her 60s and also has COPD, diabetes and hypertension. Father at age 80 of laryngeal cancer. He also had hypertension. A sister has had a pacemaker placed. Brother at age 50 of laryngeal cancer. VITAL SIGNS HEIGHT: 162 cm WEIGHT: 56 kg BMI: 21.34 kg/m2 TEMP: 36.2 Deg C PULSE: 68 /min RESP: 15 /min SYSTOLIC: 112 mmHg DIASTOLIC: 76 mmHg PHYSICAL EXAMINATION GENERAL: Patient is alert and oriented times three, in no acute distress, good hygiene and is dressed appropriately. ENT: Tympanic membranes are normal bilaterally. Oropharynx is without erythema or exudate. Inferior nasal turbinates are without injection. Neck is without adenopathy. LYMPH NODES: Not palpably enlarged and no nodules are palpated. HEART: Regular rate and rhythm without murmur. LUNGS: Clear to auscultation. ABDOMEN: Soft and nontender with no masses. BREASTS: Without mass or nipple discharge. There are no axillary or supraclavicular adenopathy. RECTUM: Exam is without mass. GENITALIA: External genitalia without lesions. Cervix is normal in appearance. Bimanual exam revealssmall nontender uterus and adnexa. EXTREMITIES: Within normal limits. SCALP: Area approximately 1cm in diameter slightly erythematous macule with small papule on the medial aspect of the macule. This is located on the mid-crown. IMPRESSION/REPORT/PLAN 1. Health care maintenance. She is encouraged to achieve and maintain healthy body weight through diet and exercise. She is reminded of the need for monthly self-breast exam, yearly eye and regular dental visits. Influenza vaccine was given today. She requested regular dose rather than high dose. Medications were renewed today. We discussed the shingles vaccine and she will check with her insurance about coverage. 2. Resolving rash on scalp. Will continue to treat symptomatically. 3. Follow up: The patient will contact the clinic with any new or worsening symptoms. This document serves as a record of services personally performed by Lui Ireland MD. It was created on their behalf by Melanie ramírez trained faculty i on call medical assistant. The creation of this record is based onthe scribe's personal observations and the provider's statements to them. This document has been [facility] and approved by the attending provider. Lui Ireland M.D./anderson Electronically Signed By: LUI WHITTEN MD On: 06/17/2014 09:39 PM [facility] Document Id: [id number] CUTTER documented in this encounter Miscellaneous Notes Miscellaneous - Vanessa Messer C.M.A. - 03/07/2014 1:48 PM CST Health Assessment Health Assessment Entered On: 03/07/2014 13:49 ROLL CUTTER Performed On: 03/07/2014 13:48 ROLL CUTTER by VANESSA MESSER Health Assessment Complete Health Assessment Complete or Modified : Annual Health Assessment Annual Health Assessment Completed : Yes VANESSA MESSER - 03/07/2014 13:48 ROLL CUTTER Nutrition Nutrition Risk Factors by History Adult : None VANESSA MESSER - 03/07/2014 13:48 ROLL CUTTER Functional Current Daily Living Assistance : None VANESSA MESSER - 03/07/2014 13:48 ROLL CUTTER Dependent Habits Tobacco Use/Currently Using : No Exposure to Tobacco Smoke : Other: quit smoking at age 22 Smoking Status : Former smoker VANESSA MESSER - 03/07/2014 13:48 ROLL CUTTER Tobacco Use Grid Last Use : quit 1970 VANESSA MESSER - 03/07/2014 13:48 ROLL CUTTER Caffeine Use Grid Caffeine Use : Current Type : Coffee, Soft drinks Frequency : Daily Amount : 4 Last Use : today VANESSA MESSER - 03/07/2014 13:48 ROLL CUTTER Recreational Drug Use Grid Drug Use : None VANESSA MESSER - 03/07/2014 13:48 ROLL CUTTER Psychosocial Domestic Abuse Concerns : None Sikh Preference : No qualifying data available. VANESSA MESSER - 03/07/2014 13:48 ROLL CUTTER Advance Directive Advanced Directives : No Advance Directive Additional Information : Yes VANESSA MESSER - 03/07/2014 13:48 ROLL CUTTER Educ Needs Learning Style Preference Adult Grid Patient : Demonstration, Printed materials Family : Printed materials, Demonstration VANESSA MESSER - 03/07/2014 13:48 ROLL CUTTER Source: [facility] POWERCHART Document Id: [id number] ROLL CUTTER!35 CUTTER Miscellaneous - Vanessa Messer C.M.A. - 03/07/2014 1:44 PM CST Adult Thermoscrew Operator Intake/History Adult Thermoscrew Operator Intake/History Entered On: 03/07/2014 13:47 ROLL CUTTER Performed On: 03/07/2014 13:44 ROLL CUTTER by VANESSA MESSER Intake Chief Complaint : annual physical Temperature Core : 36.2 DegC(Converted to: 97.2 DegF) (LOW) Peripheral Pulse Rate : 68 /min Respiratory Rate : 15 /min Heart Rhythm : Regular Systolic Blood Pressure : 112 mmHg Diastolic Blood Pressure : 76 mmHg NIBP Mean : 88 mmHg BP Location : Right upper extremity Blood Pressure Cuff Size : Regular Height : 162 cm(Converted to: 5 ft 4 inch(es), 64 inch(es)) Actual Weight : 56 kg(Converted to: 123 lb 7 oz) Weight Source : Standing scale Dosing Weight Clinic : 56 kg Clinic BSA : 1.59 Body Mass Index : 21.34 kg/m2 VANESSA MESSER - 03/07/2014 13:44 ROLL CUTTER General Info Information Given By : Patient Languages : [place] Is Patient Female and 13-50 no hysterectomy : No VANESSA MESSER - 03/07/2014 13:44 ROLL CUTTER Subjective Pain Symptoms : No VANESSA MESSER - 03/07/2014 13:44 ROLL CUTTER Dependent Habits Tobacco Use/Currently Using : No Exposure to Tobacco Smoke : Other: quit smoking at age 22 Smoking Status : Former smoker VANESSA MESSER - 03/07/2014 13:44 ROLL CUTTER Tobacco Use Grid Last Use : quit 1970 VANESSA MESSER 03/07/2014 13:44 ROLL CUTTER Caffeine Use Grid Caffeine Use : Current Type : Coffee, Soft drinks Frequency : Daily Amount : 4 Last Use : today VANESSA MESSER - 03/07/2014 13:44 ROLL CUTTER Recreational Drug Use Grid Drug Use : None VANESSA MESSER - 03/07/2014 13:44 ROLL CUTTER ID Screen Drug Resistant Organism : No Travel Within Last 21 Days : No VANESSA MESSER - 03/07/2014 13:44 ROLL CUTTER Source: [facility] POWERCHART Document Id: [id number] ROLL CUTTER!44 CUTTER documented in this encounter Plan of Treatment Not on filedocumented as of this encounter Visit Diagnoses Not on filedocumented in this encounter
--- OUTSIDE RECORDS SUMMARY | 2022-02-13 09:18 | XMS_ITS | Encounter Summary ---
:1945 Author Organization [facility] Address [address] [place] [address] Care Team Providers Name Role Phone Luisa Roy M.D. Primary Care Provider [phone] Encounter Details Date Type Department Care Team Description 10/30/2016 Hospital Encounter HX [facility] Luisa Alba M.D. [address] [place], [place] [phone] (Wo rk) Social History [...] Sign Reading Time Taken Comments Blood Pressure 104/72 10/30/2016 1:29 PM CDT Pulse - - Temperature - [...] mouth daily. 0 10/05/2012 ACIDOPHILUS (ACIDOPHILUS ORAL) multivitamin tablet Take 1 tablet by 0 06/28/2009 mouth. albuterol 90 Inhale 2 puffs every 0 10/30/2016 mcg/actuation inhaler 4 (four) hours as needed. SUMAtriptan (IMITREX) 25 Take 1 tablet by 0 08/1305/24/2017 mg tablet mouth once as needed. documented as of this encounter Progress Notes Luisa Roy M.D. - 02/19/2017 12:00 AM CDT [id number] NOTE FROM THE PHYSICIAN: the patient no-showed to her appointment this afternoon. This document serves as a record of services personally performed by Luisa Ireland MD. It was created on their behalf by Beryl Augustine, a trained hospital medical biller. The creation of this record is based on the scribe's personal observations and the provider's statements to them. This document has been arti cked and approved by the attending provider. Luisa Ty M.D./sp Electronically Signed By: LUISA WHITTEN MD On: 02/19/2017 04:07 PM Source: [facility] Document Id: [id number] Luisa Whitten M.D. - 10/30/2016 1:20 PM CDT [id number] CHIEF COMPLAINT/ REASON FOR VISIT Right sided facial fullness. HISTORY OF PRESENT ILLNESS Isadora is a 71 year old female who presents to the clinic today for above concern. She has had difficulty with intermittent nasal congestion over the last spring and into the summer months. For a couple weeks she has some pressure over her right face. Isadora has some tenderness along her jaw and near her right ear. She is currently having no nasal drainage. There are times that when she bends over she feels somewhat lightheaded. Her teeth have been more sensitive to hot and cold. She occasionally has tooth pain and has a known crack in a molar on the right; Isadora has an appointment with her dentist coming up. The patient denies any additional questions or concerns at this time. MEDICATIONS Post-visit Medication Reconciliation Reviewed and are as outlined in the EMR includin. ProAir HFA 90 mcg/inh inhalation aerosol, inhale 2 puffs, q4hr, PRN for wheezing, prescribed today. 2. Amoxicillin 500 mg, 1 tablet, PO, t.i.d. for 10 days, prescribed today. ALLERGIES Ciprofloxacin - tendinitis. Diflucan - blister and swelling of throat. Lidocaine-Epinephrine - heart racing. Metronidazole - tendonitis. Sulfa drugs - nausea. SYSTEMS REVIEW Please see HPI for pertinent positives, otherwise rest of ROS negative. PAST MEDICAL/SURGICAL HISTORY Reviewed and updated per the EMR 11/02/2016. PREVENTIVE SERVICES Tobacco use: none, former smoker (quit at age 22). VITAL SIGNS HEIGHT: 159 cm. WEIGHT: 55.4 kg. BMI: 21.91 kg/m2. TEMP: 36.6 Deg C. PULSE: 72 /min. RESP: 14 /min. SYSTOLIC: 104 mmHg. DIASTOLIC: 72 mmHg. PHYSICAL EXAMINATION GENERAL: Patient is alert and oriented times three, in no acute distress, good hygiene and is dressed appropriately. ENT: Tympanic membranes are normal bilaterally. Oropharynx is without erythema or exudate. Nasal mucosa is without injection. Tenderness over right maxillary sinuses. NECK: Is without lymphadenopathy. HEART: Regular rate and rhythm without murmur. LUNGS: Slight wheezing is noticed with deep expiration on the right. EXTREMITIES: Within normal limits. IMPRESSION/REPORT/PLAN 1. Possible sinusitis. Will treat with Amoxicillin 500 mg three times daily for 10 days. If she has a dental infection going on this will treat that as well. 2. Wheezing. Prescription was given today for albuterol ProAir inhaler, as above, to be used as needed. 3. Follow up. The patient will contact the clinic with any new or worsening symptoms. This document serves as a record of services personally performed by Luisa Ireland MD. It was created on their behalf by Beryl Augustine, a trained hospital medical biller. The creation of this record is based on the scribe's personal observations and the provider's statements to them. This document has been arti cked and approved by the attending provider. Luisa Ty M.D./evan Electronically Signed By: LUISA WHITTEN MD On: 11/05/2016 10:48 PM Source: [facility] Document Id: [id number] documented in this encounter Miscellaneous Notes Miscellaneous - Loyda Lee, L.P.N. - 10/30/2016 1:29 PM CDT Adult Soaking Pits Supervisor Intake/History Adult Soaking Pits Supervisor Intake/History Entered On: 10/30/2016 13:32 CDT Performed On: 10/30/2016 13:29 CDT by VANESCH, LOYDA K RUN BOAT OPERATOR Intake Chief Complaint : sinus drainage pain pressure Temperature Core : 36.6 DegC(Converted to: 97.9 DegF) Peripheral Pulse Rate : 72 /min Respiratory Rate : 14 /min Systolic Blood Pressure : 104 mmHg Diastolic Blood Pressure : 72 mmHg NIBP Mean : 83 mmHg BP Location : Left upper extremity Blood Pressure Cuff Size : Regular Height : 159 cm(Converted to: 5 ft 3 inch(es), 63 inch(es)) Actual Weight : 55.4 kg(Converted to: 122 lb 2 oz) Weight Source : Standing scale Dosing Weight Clinic : 55.4 kg Clinic BSA : 1.56 Body Mass Index : 21.91 kg/m2 LOYDA LEE LPN - 10/30/2016 13:29 CDT General Info Information Given By : Patient Languages : British Is Patient Female and 13-50 no hysterectomy : No LOYDA LEE LPN - 10/30/2016 13:29 CDT Subjective Pain Symptoms : Yes LOYDA LEE LPN 10/30/2016 13:29 CDT Pain Scale Pain Scale Verbal 0-10 : Open LOYDA LEE LPN - 10/30/2016 13:29 CDT Pain Pain Assessment Grid Pain 1 Location : Other: R ear, jaw, face tender LOYDA LEE LPN - 10/30/2016 13:29 CDT Dependent Habits Exposure to Tobacco Smoke : Other: quit smoking at age 22 Smoking Status : Former smoker Tobacco 2A : Yes Tobacco Use/Currently Using : No Tobacco Use/Last 30 Days : No Tobacco Use/Last 12 months : No Tobacco Last Use/Year : 1967 LOYDA LEE LPN 10/30/2016 13:29 CDT Caffeine Use Grid Caffeine Use : Current Type : Coffee, Soft drinks Frequency : Daily Amount : 1-2 cups Last Use : 11/01/15 LOYDA LEE LPN 10/30/2016 13:29 CDT Recreational Drug Use Grid Drug Use : None LOYDA LEE LPN 10/30/2016 13:29 CDT Source: [facility] POWERCHART Document Id: [id number] CDT!47 documented in this encounter Plan of Treatment Not on filedocumented as of this encounter Visit Diagnoses Not on filedocumented in this encounter Care Teams Timber Incisor Operator Relationship Specialty Start Date End Date Luisa Roy M.D. PCP - General 10/01/16 10/10/[address] [phone] documented as of this encounter
--- OUTSIDE RECORDS SUMMARY | 2022-02-13 09:18 | XMS_ITS | Encounter Summary ---
:1945 Author Organization [facility] Address [address] [place] [address] Care Team Providers Name Role Phone Unavailable Primary Care Provider Unavailable Encounter Details Date Type Department Care Team Description 09/04/2016 Hospital Encounter HX [facility] Sabine Alvarado M.D. [address] [place], [place] [phone] (Wo rk) Social History [...] - - Temperature - - Respiratory Rate 14 09/04/2016 9:45 AM CDT Oxygen Saturation - - Inhaled Oxygen Concentration - - Weight 55.6 kg (122 lb 9.2 oz) 09/04/2016 9:45 AM CDT Height 159 cm (5' 2.6) 09/04/2016 9:45 AM CDT Body Mass Index 21.99 09/04/2016 9:45 AM CDT documented in this encounter Medications [...] Take 1 tablet by 0 06/28/2009 mouth. SUMAtriptan (IMITREX) 25 Take 1 tablet by 0 08/1305/24/2017 mg tablet mouth once as needed. documented as of this encounter Consult Notes Sabine Zapata M.D. - 09/04/2016 9:28 AM CDT [id number] HISTORY OF PRESENT ILLNESS Isadora is a very pleasant 71-year-old female who I am seeing in consultation today in regard to a right distal radius fracture. She states she fell 8 days ago while running after her and she tripped on a step. She landed on her outstretched right upper extremity. She was seen at [facility] and her x-rays demonstrated distal radius fracture. She was placed in a Velcro removable splint. She notes in the last few days her wrist has started to feel a lot better and she is actually wantingto use it a little bit. She takes her splint off to shower every day. She has no history of fractures. Please see Orthopedic intake form for complete list of medications, allergies, past medical history,past surgical history, social history, and review of systems. PHYSICAL EXAMINATION Isadora is a healthy-appearing female in no acute distress. Examination of her right wrist reveals somemild swelling and some resolving ecchymosis. She has tenderness over the distal radius. She otherwise is neurovascularly intact with good range of motion of her fingers. DIAGNOSTICS Outside imaging are reviewed. She has a completely nondisplaced distal radius fracture that is extra-articular. IMPRESSION/REPORT/PLAN Isadora is a 71-year-old female, 8 days out from a fall on her outstretched right upper extremity whereshe sustained a nondisplaced extra-articular distal radius fracture. At this point, she does not want a cast. I recommended placing her in an Exos removable cast which she did agree with. We are going to place her in this today. We did advise her to use this and treat it as a cast for the next 5 weeks, other than taking it off once a day to shower. I will plan on seeing her back at that time for repeat x-rays. Sabine Zapata M.D./rolando Electronically Signed By: SABINE ZAPATA MD On: 09/04/2016 10:51 AM Source: [facility] MHSDOLBEYNONRADSYS Document Id: [id number] documented in this encounter Miscellaneous Notes Miscellaneous - Sabine Zapata M.D. - 09/04/2016 9:58 AM CDT Ambulatory Patient Summary [facility] [address] [place], [place] [id number] Visit Information Name: ISADORA BACK [facility] Number: [id number] Current Date: 09/04/2016 09:58:01 Physicians Attending Provider: SABINE ZAPATA MD Primary Care Provider: LUI ALVARADO MD ISADORA [...] Take Indications/Special Instructions/Comments/Notes for Patient Medication Changes/Routing albuterol (ProAir HFA 90 mcg/inh inhalation aerosol) 2 puff(s), Inhalation, every 4 hours as needed for Wheezing cranberry (cranberry oral tablet) as needed for Urinary discomfort Misc Prescription (Misc Prescription) 1 tab, Oral, once a day Acidphollis SUMAtriptan (Imitrex 25 mg oral tablet) 1 Tablet(s), Oral, once as needed for Migraine headache repeat after one hour if needed Stop Taking the Following Medications: Medication list as of 09-04-16 09:58 Attention: If you have any medications at home that are not on this list, DO NOT take them until youcontact your provider for clarification. Give a copy of your medication list to your primary care provider. Update your medication list any time medications or doses are changed and carry your medication list at all times in case of emergency. Electronically Signed By: SABINE ZAPATA MD Signed On:04-SEP-2016 09:57:58 Your Allergies & Intolerances Substance Reaction Symptoms Category Comments ciprofloxacin Tendonitis Drug sulfa drugs Drug Diflucan blister Drug Diflucan swelling of throat Drug metroNIDAZOLE Tendonitis Drug lidocaine-EPINEPHrine heart racing Drug Your Problem List Problem Status Onset Comments Migraine headache Active Rhinitis, Allergic Active Diverticulitis of colon NOS Active Atrophic vaginitis Active Headache Active 02/24/2013 Anxiety disorder NOS Active Your Upcoming Appointments Date Time Location Provider No Appointments found Attention: Contact your local Clinic if further appointment detail needed. Consider Using Patient Online Services Patient Online Services is a secure online and Mobile application that lets you: ?? View lab and test results ?? View portions of your medical record including clinical notes, immunizations and discharge summaries ?? Request an appointment or medication refill ?? Review your appointment schedule ?? Send secure messages to your care team Its easy to create an account if you dont have one. Go to [email or web address] and click on Create Your Account. Then, follow the directions to complete the online form. Youll be asked for your [facility] number which you can find at the top of this document. Your Goals/Additional instructions: Source: [facility] POWERCHART Document Id: [id number] Miscellaneous - Sabine Zapata M.D. - 09/04/2016 9:58 AM CDT Ambulatory Discharge Medication List [facility] [address] [place], [place] [id number] Visit Information Name: ISADORA BACK [facility] Number: [id number] Current Date: 09/04/2016 09:58:00 Attending Provider: SABINE ZAPATA MD Primary Care Provider: LUI ALVARADO MD ISADORA [...] Take Indications/Special Instructions/Comments/Notes for Patient Medication Changes/Routing albuterol (ProAir HFA 90 mcg/inh inhalation aerosol) 2 puff(s), Inhalation, every 4 hours as needed for Wheezing cranberry (cranberry oral tablet) as needed for Urinary discomfort Misc Prescription (Misc Prescription) 1 tab, Oral, once a day Acidphollis SUMAtriptan (Imitrex 25 mg oral tablet) 1 Tablet(s), Oral, once as needed for Migraine headache repeat after one hour if needed Stop Taking the Following Medications: Medication list as of 09-04-16 09:58 Attention: If you have any medications at home that are not on this list, DO NOT take them until youcontact your provider for clarification. Give a copy of your medication list to your primary care provider. Update your medication list any time medications or doses are changed and carry your medication list at all times in case of emergency. Electronically Signed By: SABINE ZAPATA MD Signed On:04-SEP-2016 09:57:58 Additional Information: Source: [facility] VisiKardCHART Document Id: [id number] Miscellaneous - Rodolfo Jacinto C.MRobert - 09/04/2016 9:45 AM CDT Adult Chemical Laboratory Assistant Intake/History Adult Chemical Laboratory Assistant Intake/History Entered On: 09/04/2016 9:48 CDT Performed On: 09/04/2016 9:45 CDT by [facility] Intake Chief Complaint : Right distal radius fracture. Tripped and fell. DOI 08/27/16 Currently in a removable splint, no pain. Respiratory Rate : 14 /min Height : 159 cm(Converted to: 5 ft 3 inch(es), 63 inch(es)) Actual Weight : 55.6 kg(Converted to: 122 lb 9 oz) Weight Source : Standing scale Dosing Weight Clinic : 55.6 kg Clinic BSA : 1.57 Body Mass Index : 21.99 kg/m2 [facility] - 09/04/2016 9:45 CDT General Info Information Given By : Patient Preferred Communication Mode : Verbal Languages : Andorran Is Patient Female and 13-50 no hysterectomy : No [facility] - 09/04/2016 9:45 CDT Subjective Pain Symptoms : No [facility] - 09/04/2016 9:45 CDT Dependent Habits Exposure to Tobacco Smoke : Other: quit smoking at age 22 Smoking Status : Former smoker Tobacco 2A : Yes Tobacco Use/Currently Using : No Tobacco Use/Last 30 Days : No Tobacco Use/Last 12 months : No Tobacco Last Use/Year : 1965 [facility] - 09/04/2016 9:45 CDT Caffeine Use Grid Caffeine Use : Current Type : Coffee, Soft drinks Frequency : Daily Amount : 1-2 cups Last Use : 11/01/15 [facility] - 09/04/2016 9:45 CDT Recreational Drug Use Grid Drug Use : None [facility] - 09/04/2016 9:45 CDT Source: [facility] VisiKardCHART Document Id: [id number] CDT!35 documented in this encounter Plan of Treatment Not on filedocumented as of this encounter Visit Diagnoses Not on filedocumented in this encounter
--- OUTSIDE RECORDS SUMMARY | 2022-02-13 09:18 | XMS_ITS | Encounter Summary ---
:1945 Author Organization [facility] Address [address] [place] [address] Care Team Providers Name Role Phone Unavailable Primary Care Provider Unavailable Encounter Details Date Type Department Care Team Description 02/21/2014 Hospital Encounter HX [facility] Luisa Crockett i, M.D. [address] [place] [phone] (Wo rk) Social History Tobacco [...] Reading Time Taken Comments Blood Pressure 118/70 02/21/2014 10:41 AM REPRESENTATIVE PHLEBOTOMY SERVICES Pulse 60 02/21/2014 10:41 AM REPRESENTATIVE PHLEBOTOMY SERVICES Temperature - - Respiratory Rate - - Oxygen Saturation - - Inhaled Oxygen Concentration - - Weight - - Height 164 cm (5' 4.57) 02/21/2014 10:41 AM REPRESENTATIVE PHLEBOTOMY SERVICES Body Mass Index - - documented in [...] encounter Progress Notes Luisa Whitten M.D. - 02/21/2014 10:08 AM CST [id number] CHIEF COMPLAINT/ REASON FOR VISIT Left foot pain HISTORY OF PRESENT ILLNESS Isadora is a 68-year-old female who presents to the clinic today for left foot pain. She was seen for left foot pain 11/09 where it was recommended to use Ibuprofen and physical therapy.She has elevated it and iced it. Her left foot pain has gotten worse. It is on the inside of the foot and radiates up into the ankle. It will hurt constantly but is worse in the morning. She can hardlywalk on it at times. Her left knee hurts and she recently noticed that her right knee hurts. She does some stretches. She is concerned about heel spurs and has had them in the past. The patient denies any additional questions or concerns at this time. MEDICATIONS Post-visit Medication Reconciliation Reviewed and are as outlined in the EMR. ALLERGIES Diflucan-blister, swelling of throat Sulfa drugs-nausea Ciprofloxacin-tendonitis Metronidazole-tendonitis SYSTEMS REVIEW See HPI. PAST MEDICAL/SURGICAL HISTORY 1. 3, para 3. 2. Laparoscopic cholecystectomy. 3. Right breast lumpectomy with unknown pathology. 4. Osteopenia. 5. History of tendonitis of the right knee which she feels was secondary to Levaquin. 6. Diverticulosis with 1 episode of diverticulitis. 7. Anxiety 8. History of frequent and prolonged URIs 9. Neck tightness PREVENTIVE SERVICES Tobacco use: None, former smoker VITAL SIGNS HEIGHT: 164 cm TEMP: 36.8 Deg C PULSE: 60 /min SYSTOLIC: 118 mmHg DIASTOLIC: 70 mmHg PHYSICAL EXAMINATION GENERAL: Patient is alert and oriented times three, in no acute distress, good hygiene and is dressed appropriately. EXTREMITIES: Within normal limits. IMPRESSION/REPORT/PLAN 1. Plantar fascitis. She will wear shoes with arch support and is advised to ice and can use Ibuprofen. She can tape to support the arch. She is advised to abstain from wearing slippers and walking barefoot. 2. Follow up: The patient will contact the clinic with any new or worsening symptoms. This document serves as a record of services personally performed by Luisa Ireland MD. It was created on their behalf by Melanie Alaniz, a trained center medical specialist. The creation of this record is based on the scribe's personal observations and the provider's statements to them. This document has been arti cked and approved by the attending provider. Luisa Ireland M.D./anderson Electronically Signed By: LUISA WHITTEN MD On: 06/15/2014 01:32 PM Source: [facility] MHSDOLBEYNONRADSYS Document Id: [id number] ES[employer]ATIVE PHLEBOT[employer]Y [employer] documented in this encounter Miscellaneous Notes Miscellaneous - Juan Messer C.M.A. - 02/21/2014 10:41 AM CST Adult Dry Cleaning Counter Clerk Intake/History Adult Dry Cleaning Counter Clerk Intake/History Entered On: 02/21/2014 10:45 REPRESENTATIVE [employer]Y [employer] Performed On: 02/21/2014 10:41 REPRESENTATIVE PHLEBOTOMY SERVICES by JUAN MESSER Intake Chief Complaint : left foot pain since October 20 Temperature Core : 36.8 DegC(Converted to: 98.2 DegF) Peripheral Pulse Rate : 60 /min Apical Heart Rate : 16 /min (<LLOW) Heart Rhythm : Regular Systolic Blood Pressure : 118 mmHg Diastolic Blood Pressure : 70 mmHg NIBP Mean : 86 mmHg BP Location : Left upper extremity Blood Pressure Cuff Size : Regular Height : 164 cm(Converted to: 5 ft 5 inch(es), 65 inch(es)) JUAN MESSER - 02/21/2014 10:41 REPRESENTATIVE PHLEBOTOMY SERVICES General Info Information Given By : Patient Languages : Greenlandic Is Patient Female and 13-50 no hysterectomy : No JUAN MESSER - 02/21/2014 10:41 REPRESENTATIVE PHLEBOTOMY SERVICES Subjective Pain Symptoms : Yes JUAN MESSER - 02/21/2014 10:41 REPRESENTATIVE PHLEB[employer]Y [employer] Pain Pain Assessment Grid Pain 1 Location : Foot Laterality : Left JUAN MESSER - 02/21/2014 10:41 REPRESENTATIVE PHLEBOTOMY SERVICES Dependent Habits Tobacco Use/Currently Using : No Exposure to Tobacco Smoke : Other: quit smoking at age 22 Smoking Status : Former smoker JUAN MESSER - 02/21/2014 10:41 REPRESENTATIVE PHLEBOTOMY SERVICES Tobacco Use Grid Last Use : quit 1970 JUAN MESSER - 02/21/2014 10:41 REPRESENTATIVE PHLEBOTOMY SERVICES Caffeine Use Grid Caffeine Use : Current Type : Coffee, Soft drinks Frequency : Daily Amount : 4 Last Use : today JUAN MESSER - 02/21/2014 10:41 REPRESENTATIVE PHLEBOTOMY SERVICES Recreational Drug Use Grid Drug Use : None JUAN MESSER - 02/21/2014 10:41 REPRESENTATIVE PHLEBOTOMY SERVICES ID Screen Travel Within Last 21 Days : No JUAN MESSER - 02/21/2014 10:41 REPRESENTATIVE PHLEBOTOMY SERVICES Source: [facility] POWERCHART Document Id: [id number] REPRESENTATIVE PHLEBOTOMY SERVICES!43 ESENTATIVE PHLEBOTOMY [employer] documented in this encounter Plan of Treatment Not on filedocumented as of this encounter Visit Diagnoses Not on filedocumented in this encounter
--- OUTSIDE RECORDS SUMMARY | 2022-02-13 09:18 | XMS_ITS | Encounter Summary ---
:1945 Author Organization [facility] Address [address] [place] [address] Care Team Providers Name Role Phone Unavailable Primary Care Provider Unavailable Encounter Details Date Type Department Care Team Description 06/13/2015 Hospital Encounter HX [facility] Channing Preciado P.A.-C. [address] [place] [address] (Wo rk) Social History Tobacco Use Types [...] Sign Reading Time Taken Comments Blood Pressure 138/78 06/13/2015 2:06 PM GUEST SERVICES AGENT Pulse 76 06/13/2015 2:06 PM GUEST SERVICES AGENT Temperature - - Respiratory Rate 16 06/13/2015 2:06 PM GUEST SERVICES AGENT Oxygen Saturation - - Inhaled Oxygen Concentration - - Weight 55.4 kg (122 lb 2.2 oz) 06/13/2015 2:06 PM GUEST SERVICES AGENT Height 159 cm (5' 2.6) 06/13/2015 2:06 PM GUEST SERVICES AGENT Body Mass Index 21.91 06/13/2015 2:06 PM GUEST SERVICES AGENT documented in this encounter Medications at Time of Discharge Medication Sig Dispensed Refills Start Date End Date calcium carbonate-vitamin Chew 1 tablet. 0 2009 D3 1,250 mg (500 mg calcium)-400 unit per chewable tablet LACTOBACILLUS ACIDOPHILUS Take by mouth daily. 0 10/05/2012 (ACIDOPHILUS ORAL) multivitamin tablet Take 1 tablet by 0 06/28/2009 mouth. documented as of this encounter Progress Notes Adele Preciado P.A.-C. - 06/13/2015 2:00 PM CST [id number] CHIEF COMPLAINT/REASON FOR VISIT Pharyngitis. HISTORY OF PRESENT ILLNESS Milagros is a very pleasant 70-year-old female who has had a sudden onset of a sore throat and a fever over the last day. Her grandsons were recently diagnosed with strep throat and she has been around them for the last couple days. They have been on antibiotics. PHYSICAL EXAMINATION VITAL SIGNS: Noted in the EMR. GENERAL: She appears in no acute distress. She is afebrile. ENT: TMs no erythema. Throat was red in appearance. No exudate present. No lymphadenopathy noted in the neck. HEART: Regular rate and rhythm. No murmurs. LUNGS: Clear to auscultation. IMPRESSION/REPORT/PLAN Pharyngitis. She had some diarrhea last week as well. I am concerned given her grandsons' positive strep diagnosis and she has had immediate exposure with them all day yesterday. I am going to go aheadand treat her with amoxicillin 875 mg 2 times daily for 10 days. I want her to gargle with saltwater, push fluids and if her symptoms worsen or do not improve she will let us know. Otherwise, follow up as needed. Adele Preciado PA-C/rolando Electronically Signed By: ADELE PRECIADO PA-C On: 06/14/2015 08:22 AM Source: [facility] [email or web address] Document Id: [id number] T SERVICES AGENT documented in this encounter Miscellaneous Notes Telephone Encounter - Conversion, Historical Provider Ser - 07/04/2015 2:52 PM CDT *Phone Message- lizette Document Contains Addenda Addendum by LOYDA LEE LPN on July 04, 2015 16:28:25 CDT notified Isadora that the referral was sent to [facility] Addendum by LUI ALVARADO MD on July 04, 2015 16:20:48 CDT From: LUI ALVARADO MD [facility]; Sent: 07/04/2015 16:20:48 CDT Subject: RE: *Phone Message- lizette Please refer to [facility] for neck pain. Addendum by LOYDA LEE LPN on July 04, 2015 14:57:23 CDT From: LOYDA LEE LPN ( [facility]) To: LUI ALVARADO MD; Sent: 07/04/2015 14:57:23 CDT Subject: FW: *Phone Message- lizette Addendum by LOYDA LEE LPN on July 04, 2015 14:57:15 CDT would like referral to [facility] regarding neck pain which is starting to give her headaches again in the morning From: RODOLFO BAUM ([facility] 2W Nurse) To: MARCIO Ireland Nurse; Sent: 07/04/2015 14:52:06 CDT Subject: *Phone Message- lizette Caller is: ( s ) Patient ( ) Mother ( ) Father ( ) Spouse ( ) Daughter ( ) Son ( ) Pharmacy ( ) Other: Physician: Patient MRN #: Reason for Call: Message: would like a call for referal to [facility], please call to discuss [phone] or cell [phone] Advice/Action: Source used: ( ) Verbalizes understanding [...] back cell phone number ( ) Source: [facility] POWERCHART Document Id: [id number] Miscellaneous - Adele Preciado PBebeto. - 06/13/2015 2:25 PM CST Ambulatory Patient Summary [address] [id number] Visit Information Name: ISADORA BACK [facility] Number: [id number] Current Date: 06/13/2015 14:25:01 Physicians Attending Provider: ADELE PRECIADO PA-C Primary Care Provider: LUI ALVARADO MD ISADORA [...] every 4 hours as needed for Wheezing amoxicillin (amoxicillin 875 mg oral tablet) 1 Tablet(s), Oral, two times a day x 10 day(s) New Routed to [facility] [address] [place] [address] fluticasone (Flovent HFA 110 mcg/inh inhalation aerosol) [...] the Following Medications: Medication list as of 06-13-15 14:25 Attention: If you have any medications at home that are not on this list, DO NOT take them until youcontact your provider for clarification. Give a copy of your medication list to your primary care provider. Update your medication list any time medications or doses are changed and carry your medication list at all times in case of emergency. Electronically Signed By: ADELE PRECIADO PA-C Signed On:13-JUN-2015 14:17:28 Your Allergies & Intolerances Substance Reaction Symptoms [...] if you dont have one. Go to [email or web address] and click on Create Your Account. Then, follow the directions to complete the online form. Youll be asked for your [facility] number which you can find at the top of this document. Your Goals/Additional instructions: Source: [facility] POWERCHART Document Id: [id number] T SERVICES AGENT Miscellaneous - Adele Preciado P.A.-C. - 06/13/2015 2:25 PM CST Ambulatory Discharge Medication List [address] [id number] Visit Information Name: ISADORA BACK [facility] Number: [id number] Visit Date: 06/13/2015 14:24:59 Attending Provider: ADELE PRECIADO PA-C Primary Care Provider: LUI ALVARADO MD FRANCIS ISADORA NIX has been given the following list of [...] every 4 hours as needed for Wheezing amoxicillin (amoxicillin 875 mg oral tablet) 1 Tablet(s), Oral, two times a day x 10 day(s) New Routed to [facility] [address] [place] [address] fluticasone (Flovent HFA 110 mcg/inh inhalation aerosol) [...] the Following Medications: Medication list as of 06-13-15 14:25 Attention: If you have any medications at home that are not on this list, DO NOT take them until youcontact your provider for clarification. Give a copy of your medication list to your primary care provider. Update your medication list any time medications or doses are changed and carry your medication list at all times in case of emergency. Electronically Signed By: ADELE PRECIADO PA-C Signed On:13-JUN-2015 14:17:28 Additional Information: Source: [facility] POWERCHART Document Id: [id number] T SERVICES AGENT Miscellaneous - Tanja Hernandez, L.P.N. - 06/13/2015 2:06 PM CST Adult Food Science Professor Intake/History Adult Food Science Professor Intake/History Entered On: 06/13/2015 14:10 GUEST SERVICES AGENT Performed On: 06/13/2015 14:06 GUEST SERVICES AGENT by TANJA HERNANDEZ LPN Intake Chief Complaint : sore throat started yesterday, notes two grandson's just Dx with strep on 06/11/15 Onset of Symptoms : 1 day Temperature Core : 36.9 DegC(Converted to: 98.4 DegF) Peripheral Pulse Rate : 76 /min Respiratory Rate : 16 /min Systolic Blood Pressure : 138 mmHg Diastolic Blood Pressure : 78 mmHg NIBP Mean : 98 mmHg BP Location : Left upper extremity Blood Pressure Cuff Size : Large SpO2 : 100 % Oxygen Therapy : Room air Height : 159 cm(Converted to: 5 ft 3 inch(es), 63 inch(es)) Actual Weight : 55.4 kg(Converted to: 122 lb 2 oz) Weight Source : Standing scale Dosing Weight Clinic : 55.4 kg Clinic BSA : 1.56 Body Mass Index : 21.91 kg/m2 TANJA HERNANDEZ LPN - 06/13/2015 14:06 GUEST SERVICES AGENT General Info Information Given By : Patient Preferred Communication Mode : Verbal Languages : Swedish Is Patient Female and 13-50 no hysterectomy : No TANJA HERNANDEZ LPN - 06/13/2015 14:06 GUEST SERVICES AGENT Subjective Pain Symptoms : Yes TANJA HERNANDEZ LPN 06/13/2015 14:06 GUEST SERVICES AGENT Pain Scale Pain Scale Verbal 0-10 : Open TANJA HERNANDEZ LPN 06/13/2015 14:06 GUEST SERVICES AGENT Pain Pain Assessment Grid Pain 1 Location : Throat Laterality : Bilateral Intensity : 8 Duration : 1 day TANJA HERNANDEZ LPN 06/13/2015 14:06 GUEST SERVICES AGENT Dependent Habits Exposure to Tobacco Smoke : Other: quit smoking at age 22 Smoking Status : Former smoker Tobacco 2A : Yes Tobacco Use/Currently Using : No Tobacco Use/Last 30 Days : No Tobacco Use/Last 12 months : No Tobacco Last Use/Year : 1965 Alcohol Use : Yes TANJA HERNANDEZ LPN 06/13/2015 14:06 GUEST SERVICES AGENT Caffeine Use Grid Caffeine Use : Current Type : Coffee, Soft drinks Frequency : Daily Amount : 4 Last Use : 06/13/2015 TANJA HERNANDEZ LPN 06/13/2015 14:06 GUEST SERVICES AGENT Recreational Drug Use Grid Drug Use : None TANJA HERNANDEZ LPN - 06/13/2015 14:06 GUEST SERVICES AGENT Source: [facility] POWERCHART Document Id: [id number] GUEST SERVICES AGENT!55 T SERVICES AGENT documented in this encounter Plan of Treatment Not on filedocumented as of this encounter Visit Diagnoses Not on filedocumented in this encounter
--- OUTSIDE RECORDS SUMMARY | 2022-02-13 09:18 | XMS_ITS | Encounter Summary ---
:1945 Author Organization [facility] Address [address] [place] [address] Care Team Providers Name Role Phone Unavailable Primary Care Provider Unavailable Encounter Details Date Type Department Care Team Description 06/13/[address] [facility] Lui Flores M.D. [address] [place], [place] [phone] (Wo rk) Social History [...] - - Height 159 cm (5' 2.6) 06/13/2015 8:12 AM PALLIATIVE CARE PHYSICIAN Body Mass Index - - documented in [...] Notes Miscellaneous - Lui Whitten M.D. - 06/13/2015 10:24 PM PALLIATIVE CARE PHYSICIAN Custom Result Letter 13 June 2015 ISADORA BACK [address] [place] [id number] Dear ISADORA BACK, Your labs are all normal. Please call or follow up if you have questions. Result Name Current Result Normal Range Sodium Lvl (mmol/L) 137 06/13/2015 135 - 145 Potassium Lvl (mmol/L) 4.1 06/13/2015 3.6 - 5.2 Chloride (mmol/L) (L) 96 06/13/2015 98 - 107 CO2 (mmol/L) 28 06/13/2015 22 - 29 AGAP (mmol/L) 13 06/13/2015 7 - 15 Glucose Fasting (mg/dL) 94 06/13/2015 70 - 99 Creatinine (mg/dL) 0.9 06/13/2015 0.6 - 1.1 EGFR (MDRD) (mL/min/1.73m2) >60 06/13/2015 >=60 - EGFR (MDRD) (mL/min/1.73m2) >60 06/13/2015 >=60 - BUN (mg/dL) 10 06/13/2015 6 - 21 Calcium Lvl (mg/dL) 9.8 06/13/2015 8.8 - 10.3 Cholesterol (mg/dL) (H) 206 06/13/2015 - <=199 Trig (mg/dL) 120 06/13/2015 - <=149 HDL (mg/dL) 67 06/13/2015 >=50 - LDL Calculated (mg/dL) 115 06/13/2015 - <=129 Chol/HDL Ratio 3.07 06/13/2015 LDL/HDL 2 06/13/2015 Sincerely, LUI CRONIN [address] [place] [address] Electronic Signature Electronically Signed By: LUI WHITTEN MD On: 13 June 2015 This document has images extracted. Source: [facility] Condition OneCHART Document Id: [id number] documented in this encounter Plan of Treatment Not on filedocumented as of this encounter Procedures Procedure Name Priority Date/Time Associated Diagnosis Comme nts LIPID PANEL, S Routine 06/13/2015 8:19 AM Results for this PALLIATIVE CARE PHYSICIAN procedure are i n the results section. BASIC METABOLIC Routine 06/13/2015 8:19 AM Result s for this PANEL, S/P PALLIATIVE CARE PHYSICIAN procedure are i n the results section. documented in this encounter Results (ABNORMAL) BMP (Basic Metabolic Panel) (06/13/2015 8:19 AM PALLIATIVE CARE PHYSICIAN) P athologist Signature Sodium, S 137 135 - 145 POWERCHART MMOLL Potassium, S 4.1 3.6 - 5.2 POWERCHART MMOLL Chloride, S 96 (L) 98 - 107 POWERCHART MMOLL CO2 Total 28 22 - 29 POWERCHART MMOLL Glucose, 94 70 - 99 POWERCHART Fasting, S MGDL BUN (Blood Urea 10 6 - 21 POWERCHART Nitrogen), S MGDL Creatinine 0.9 0.6 - 1.1 POWERCHART MGDL Calcium, Total, 9.8 8.8 - 10.3 POWERCHART S MGDL Anion Gap 13 7 - 15 POWERCHART MMOLL HXeGFR (MDRD) >60 >=60 POWERCHART [id number] eGFR >60 >=60 POWERCHART Black/ [id number] Egyptian Specimen (Source) Anatomical Collection Method Collection Time Re ceived Time Location / / Volume Laterality Blood 06/13/2015 8:19 AM PALLIATIVE CARE PHYSICIAN Lui Roy M.D. LAB BLOOD ADD-ON Performing Organization Address City/State/ZIP Code Phon e Number POWERCHART (ABNORMAL) Lipid Panel (06/13/2015 8:19 AM PALLIATIVE CARE PHYSICIAN) P athologist Signature Calculated LDL 115 <=129 MGDL POWERCHART Comment: 2013 National Lipid Association recommen dations for LDL-C in adults ages 18 and up: Desirable <100 mg/dL Above desirable 100-129 mg/dL Borderline high 130-159 mg/dL High 160-189 mg/dL Very High 190 mg/dL 2013 National Lipid Association recommen dations for LDL-C in children ages 2 to 17. Acceptable <110 mg/dL Borderline High 110-129mg/dL High 130 mg/dL LDL-C >190mg/dL: The markedly elevated LDL level is suggestive of a genetic condition such as familial hypercholesterolemia(FH) or familial defective apolipoprotein B-100 (FDB). Molecular genetic t esting for FH and FDB is available throu [facility]: FH/ADH Genetic Reflex Orozco el (test ADHP). Acquired (non-genetic) causes of markedly increased LDL cholesterol include cholestatic liver disease due to the presence of LpX. If a genetic form of hypercholesterolemia is suspected, family studies including biochemical testing fo r lipids (total cholesterol,triglycerides, LDL cholesterol and HDL cholesterol) are recommended. ??Please contact the laboratory at or the on-line test catalog at [employer] for information about how to order these annette ts or to speak with a genetic counselor. Further interpretation would require clinical information. Total Cholesterol/HDL Ratio 3.07 PO WERCHART Cholesterol, Total 206 (H) <=199 MGDL POWERCHART Comment: 2013 National Lipid Association recommen dations for Total Cholesterol in adults ages 18 and up: Desirable <200 mg/dL Borderline high 200-239 mg/dL High 240 mg/dL 2014 National Lipid Association recommen dations for Total Cholesterol in children ages 2 to 17. Acceptable <170 mg/dL Borderline High 170-199 mg/dL High 200 mg/dL HX HDL 67 >=50 MGDL POWERCHART Comment: 2013 National Lipid Association recommen dations for HDL-C in adults ages 18 and up: Low <40 mg/dL (Men) Low <50 mg/dL (Women) 2014 National Lipid Association recommen dations for HDL-C in children ages 2 to 17. Low <40 mg/dL Borderline Low 40-45 mg/dL Acceptable >45 mg/dL Triglycerides 120 <=149 MGDL POWERCHART Comment: 2013 National Lipid Association recommen dations for Triglycerides in adults ages 18 and up: Normal <150 mg/dL Borderline High 150-199 mg/dL High 200-499 mg/dL Very High 500 mg/dL 2014 National Lipid Association recommen dations for Triglycerides in children ages 2 to 9. Acceptable <75 mg/dL Borderline High 75-99 mg/dL High 100 mg/dL 2014 National Lipid Association recommen dations for Triglycerides in children ages 10 to 17. Acceptable <90 mg/dL Borderline High 90-129 mg/dL High 130 mg/dL Trigs >400mg/dL: Triglycerides >400 mg/ dL. Calculated LDL cholesterol is not valid. Non-HDL cholesterol may be used for risk assessment when triglycerides are >400mg/dL. HXLDL/HDL 2 POWERCHART Specimen (Source) Anatomical Collection Method Collection Time Re ceived Time Location / / Volume Laterality Blood 06/13/2015 8:19 AM PALLIATIVE CARE PHYSICIAN Lui Roy M.D. LAB BLOOD ADD-ON Performing Organization Address City/State/ZIP Code Phon e Number POWERCHART documented in this encounter Visit Diagnoses Not on filedocumented in this encounter
--- OUTSIDE RECORDS SUMMARY | 2022-02-13 09:18 | XMS_ITS | Encounter Summary ---
:1945 Author Organization [facility] Address [address] [place] [address] Care Team Providers Name Role Phone Unavailable Primary Care Provider Unavailable Encounter Details Date Type Department Care Team Description 11/14/2014 Hospital Encounter HX [facility] FB NURSE Jagruti Benavides M.D. [address] , [address] [place], [place] [address] (Wo rk) Social History Tobacco Use Types [...] Concentration - - Weight - - Height 162 cm (5' 3.78) 11/14/2014 2:16 PM CDT Body Mass Index - - documented in this encounter Medications at Time of Discharge Medication Sig Dispensed Refills Start Date End Date calcium carbonate-vitamin Chew 1 tablet. 0 2009 D3 1,250 mg (500 mg calcium)-400 unit per chewable tablet LACTOBACILLUS ACIDOPHILUS Take by mouth daily. 0 10/05/2012 (ACIDOPHILUS ORAL) multivitamin tablet Take 1 tablet by 0 06/28/2009 mouth. documented as of this encounter Nursing Notes Marco Hernandez, L.P.N. - 11/14/2014 3:39 PM CDT suture removal Suture was removed from left cheek. Patient tolerated removal without complaints. Area did have a spot of blood. Bandaid was applied. Patient denies complaints of pain. Is aware if any concerns to call clinic as needed. Electronically Signed By: MARCO HERNANDEZ LPN On: 11/14/2014 03:41 PM Source: [facility] POWERCHART Document Id: [id number] documented in this encounter Plan of Treatment Not on filedocumented as of this encounter Visit Diagnoses Not on filedocumented in this encounter
--- OUTSIDE RECORDS SUMMARY | 2022-02-13 09:18 | XMS_ITS | Encounter Summary ---
:1945 Author Organization [facility] Address [address] [place] [address] Care Team Providers Name Role Phone Unavailable Primary Care Provider Unavailable Encounter Details Date Type Department Care Team Description 01/23/2014 Hospital Encounter HX [facility] Etta Jamil M.D. [address] [place], [place] [address] (Wo rk) Social History Tobacco Use Types [...] Sign Reading Time Taken Comments Blood Pressure 116/84 01/23/2014 2:34 PM CDT Pulse 78 01/23/2014 2:34 PM CDT Temperature - - Respiratory Rate - - Oxygen Saturation - - Inhaled Oxygen Concentration - - Weight 55.8 kg (123 lb 0.3 oz) 01/23/2014 2:34 PM CDT Height 164 cm (5' 4.57) 01/23/2014 2:34 PM CDT Body Mass Index 20.75 01/23/2014 2:34 PM CDT documented in this encounter Medications at Time of Discharge Medication Sig Dispensed Refills Start Date End Date calcium carbonate-vitamin Chew 1 tablet. 0 2009 D3 1,250 mg (500 mg calcium)-400 unit per chewable tablet LACTOBACILLUS ACIDOPHILUS Take by mouth daily. 0 10/05/2012 (ACIDOPHILUS ORAL) multivitamin tablet Take 1 tablet by 0 06/28/2009 mouth. documented as of this encounter Progress Notes Jose G Jamil M.D. - 01/23/2014 2:31 PM CDT [id number] Patient is a 68-year-old female with an 8-day history of productive cough with clear nasaldischarge, runny nose and right ear discomfort. She initiated amoxicillin previously prescribed by Dr. Gauthier, but not used by patient for a prior similar illness 1 month ago. Patient now here today noting that she has begun using her albuterol inhaler up to 2 times a day, where as she rarely usedat all. She believed initiation of illness was due to a grandson of 3 years of age who was recently diagnosed with croup. She denies any fever or change in appetite. Past medical, past surgical, family medical history, as well as current medications are as noted in the patient's electronic medical record. ALLERGIES Patient with noted allergies to: Flagyl. Diflucan. Ciprofloxacin. Sulfa, which remain unchanged, as they all have been previously noted. SYSTEMS REVIEW GENERAL: Aside from the aforementioned history of present illness, patient otherwise believes herself to be at baseline of stable good general health. Review of medical systems including eyes, cardiovascular, gastrointestinal, neurologic, immunologic, musculoskeletal, hematologic, urologic, and psychiatric systems are negative. With regarding ear, nose, mouth, throat, is as per history of present illness. With regarding pulmonary systems, the patient does not have a history of asthma per se, but hasbeen given ProAir inhaler by Dr. Gauthier in the past for relief of bronchospasm when she gets an upper respiratory illness. PHYSICAL EXAMINATION VITAL SIGNS: Patient afebrile at 37.2 degrees centigrade, heart rate 78 beats per minute and regular, blood pressure 116/84, height 164 cm, for this patient weighing 55.8 kg. She is a nonsmoker. HEENT: Pupils equal and reactive to light and accommodation. Posterior oropharynx noted for postnasal drip. There is no maxillary sinus tenderness. Right ear distended, but light reflex present and tympanic membrane without erythema. NECK: Supple. No gross jugular venous distention. CHEST: No supraclavicular, infraclavicular or axillary adenopathy. Lungs show breath sounds present throughout. There is no egophony. There are no true wheezes or rales. There is a mild prolongation of the inspiratory to expiratory ratio. Heart is regular rate and rhythm. No murmur or rub is noted. ABDOMEN: Soft, nontender, nondistended. EXTREMITIES: No clubbing, cyanosis, or edema. Capillary refill adequate at around 2 seconds throughout both upper and lower extremities. NEUROLOGIC: Patient aware and oriented x3. Cranial nerves II through XII grossly intact and nonfocal. IMPRESSION/REPORT/PLAN A 68-year-old female with the following active medical issues: Acute bronchitis with associated bronchospasm. Patient may continue the amoxicillin that she has already initiated. I have recommended oral steroids, but she tends to defer based on previous adverse reaction to them. She is interested in getting a steroid injection, as she has heard that this has provi ded some help in the past to people that she knows. I declined to offer this to the patient due to possibilities of risks regarding musculoskeletal or fat necrosis at the site of injection and the lackof signs that supports this method of administration. We did agree that she might find inhaled steroids of benefit and as such, Flovent 110 mcg per actuation strength inhaler is ordered per EMR order. Patient otherwise to stay well hydrated and follow up as needed. Jose G Jamil M.D./rolando Electronically Signed By: JOSE G JAMIL MD On: 01/25/2014 08:28 AM Source: [facility] [email or web address] Document Id: [id number] documented in this encounter Nursing Notes Jose G Jamil M.D. - 01/23/2014 3:03 PM CDT Ambulatory Patient Education The following Patient Education Materials have been given to the patient: Patient Education Materials: Pulmonology Acute Bronchitis Pulmonology Acute Bronchitis Your health care provider has told you that you have acute bronchitis. Bronchitis is infection or inflammation of the bronchial tubes (airways in the lungs). Normally, air moves easily in and out of the airways. Bronchitis narrows the airways, making it harder for air to flow in and out of the lungs. This causes symptoms such as shortness of breath, coughing, and wheezing. Bronchitis can be acute or chronic. Acute means the condition comes on quickly and goes away in a short time. Chronic means a condition lasts a long time and often comes back. Read on to learn more about acute bronchitis. What Causes Acute Bronchitis? Acute bronchitis almost always starts as a viral respiratory infection, such as a cold or the flu. Certain factors make it more likely for a cold or flu to turn into bronchitis. These include being very young or very old or having a heart or lung problem. Cigarette smoking also makes bronchitis more likely. When bronchitis develops, the airways become swollen. The airways may also become infected with bacteria. This is known as a secondary infection. Diagnosing Acute Bronchitis Your health care provider will examine you and ask about your symptoms and health history. You may also have a sputum culture to test the fluid in your lungs. Chest X-rays may be done to look for infection in the lungs. Treating Acute Bronchitis Bronchitis usually clears up as the cold or flu goes away. You can help feel better faster by doing the following: ?? Take medication as directed. You may be told to take ibuprofen or other homu-ccm-zvlqgaj medications. These help relieve inflammation in your bronchial tubes. Your doctor may prescribe an inhaler tohelp open up the bronchial tubes. If you have a bacterial infection, you may be prescribed antibiotics. If so, take all of this medication as directed until it is gone, even if you feel better. ?? Drink plenty of fluids, such as water, juice, or warm soup. Fluids loosen mucus so that you can cough it up. This helps you breathe more easily. Fluids also prevent dehydration. ?? Make sure you get plenty of rest. ?? Do not smoke. Do not allow anyone else to smoke in your home. Recovery and Follow-Up Follow up with your doctor as you are told. You will likely feel better in a week or two. But a dry cough can linger beyond that time. Let your doctor know if you still have symptoms (other than a dry cough) after 2 weeks. If youre prone to getting bronchial infections, let your doctor know. And take steps to protect yourself from future infections. These steps include stopping smoking and avoiding tobacco smoke, washing your hands often, and getting a yearly flu shot. When to Call the Doctor Call the doctor if you have any of the following: Fever of 100.4??F (38.0??C) higher Symptoms that get worse, or new symptoms Trouble breathing Symptoms that dont start to improve within a week, or within 3 days of taking antibiotics ?? [id number] [place] [address]. All rights reserved. This information is not intended as a substitute for professional medical care. Always follow your healthcare professional's instructions. This document has images extracted. Please consider using [employer] for all your patient education needs. Source: [facility] POWERCHART Document Id: [id number] Jose G Jamil M.D. - 01/23/2014 3:02 PM CDT Ambulatory Patient Education The following Patient Education Materials have been given to the patient: Patient Education Materials: Pulmonology Acute Bronchitis Pulmonology Acute Bronchitis Your health care provider has told you that you have acute bronchitis. Bronchitis is infection or inflammation of the bronchial tubes (airways in the lungs). Normally, air moves easily in and out of the airways. Bronchitis narrows the airways, making it harder for air to flow in and out of the lungs. This causes symptoms such as shortness of breath, coughing, and wheezing. Bronchitis can be acute or chronic. Acute means the condition comes on quickly and goes away in a short time. Chronic means a condition lasts a long time and often comes back. Read on to learn more about acute bronchitis. What Causes Acute Bronchitis? Acute bronchitis almost always starts as a viral respiratory infection, such as a cold or the flu. Certain factors make it more likely for a cold or flu to turn into bronchitis. These include being very young or very old or having a heart or lung problem. Cigarette smoking also makes bronchitis more likely. When bronchitis develops, the airways become swollen. The airways may also become infected with bacteria. This is known as a secondary infection. Diagnosing Acute Bronchitis Your health care provider will examine you and ask about your symptoms and health history. You may also have a sputum culture to test the fluid in your lungs. Chest X-rays may be done to look for infection in the lungs. Treating Acute Bronchitis Bronchitis usually clears up as the cold or flu goes away. You can help feel better faster by doing the following: ?? Take medication as directed. You may be told to take ibuprofen or other yndt-gyw-kptishg medications. These help relieve inflammation in your bronchial tubes. Your doctor may prescribe an inhaler tohelp open up the bronchial tubes. If you have a bacterial infection, you may be prescribed antibiotics. If so, take all of this medication as directed until it is gone, even if you feel better. ?? Drink plenty of fluids, such as water, juice, or warm soup. Fluids loosen mucus so that you can cough it up. This helps you breathe more easily. Fluids also prevent dehydration. ?? Make sure you get plenty of rest. ?? Do not smoke. Do not allow anyone else to smoke in your home. Recovery and Follow-Up Follow up with your doctor as you are told. You will likely feel better in a week or two. But a dry cough can linger beyond that time. Let your doctor know if you still have symptoms (other than a dry cough) after 2 weeks. If youre prone to getting bronchial infections, let your doctor know. And take steps to protect yourself from future infections. These steps include stopping smoking and avoiding tobacco smoke, washing your hands often, and getting a yearly flu shot. When to Call the Doctor Call the doctor if you have any of the following: Fever of 100.4??F (38.0??C) higher Symptoms that get worse, or new symptoms Trouble breathing Symptoms that dont start to improve within a week, or within 3 days of taking antibiotics ?? [id number] [facility], [address] [place] [address], [place] [address]. All rights reserved. This information is not intended as a substitute for professional medical care. Always follow your healthcare professional's instructions. This document has images extracted. Please consider using [employer] for all your patient education needs. Source: [facility] POWERCHART Document Id: [id number] documented in this encounter Miscellaneous Notes Miscellaneous - Jose G Jamil M.D. - 01/23/2014 3:03 PM CDT Ambulatory Patient Summary [address] [id number] Visit Information Name: ISADORA BACK [facility] Number: [id number] Current Date: 01/23/2014 15:03:11 Physicians Attending Provider: JOSE G JAMIL MD Primary Care Provider: LUI GAUTHIER MD ISADORA BACK has been given the following list of follow-up instructions, medication list, and patient education materials: Follow-up Instructions With: Address: When: Follow up with primary care provider , only if needed Comments: Your Medications Here is a list of [...] 2 puff(s), Inhalation, two times a day New Routed to [address] [place] [address] LORazepam (lorazepam 0.5 mg oral tablet) 1 [...] the Following Medications: Medication list as of 01-23-14 15:03 Attention: If you have any medications at home that are not on this list, DO NOT take them until youcontact your provider for clarification. Give a copy of your medication list to your primary care provider. Update your medication list any time medications or doses are changed and carry your medication list at all times in case of emergency. Electronically Signed By: JOSE G JAMIL MD Signed On:23-JAN-2014 15:02:39 Your Allergies & Intolerances Substance Reaction Symptoms [...] local Clinic if further appointment detail needed. Acute Bronchitis Your health care provider has told you that you have acute bronchitis. Bronchitis is infection or inflammation of the bronchial tubes (airways in the lungs). Normally, air moves easily in and out of the airways. Bronchitis narrows the airways, making it harder for air to flow in and out of the lungs. This causes symptoms such as shortness of breath, coughing, and wheezing. Bronchitis can be acute or chronic. Acute means the condition comes on quickly and goes away in a short time. Chronic means a condition lasts a long time and often comes back. Read on to learn more about acute bronchitis. What Causes Acute Bronchitis? Acute bronchitis almost always starts as a viral respiratory infection, such as a cold or the flu. Certain factors make it more likely for a cold or flu to turn into bronchitis. These include being very young or very old or having a heart or lung problem. Cigarette smoking also makes bronchitis more likely. When bronchitis develops, the airways become swollen. The airways may also become infected with bacteria. This is known as a secondary infection. Diagnosing Acute Bronchitis Your health care provider will examine you and ask about your symptoms and health history. You may also have a sputum culture to test the fluid in your lungs. Chest X-rays may be done to look for infection in the lungs. Treating Acute Bronchitis Bronchitis usually clears up as the cold or flu goes away. You can help feel better faster by doing the following: ?? Take medication as directed. You may be told to take ibuprofen or other nuyt-xkh-ozkqfey medications. These help relieve inflammation in your bronchial tubes. Your doctor may prescribe an inhaler tohelp open up the bronchial tubes. If you have a bacterial infection, you may be prescribed antibiotics. If so, take all of this medication as directed until it is gone, even if you feel better. ?? Drink plenty of fluids, such as water, juice, or warm soup. Fluids loosen mucus so that you can cough it up. This helps you breathe more easily. Fluids also prevent dehydration. ?? Make sure you get plenty of rest. ?? Do not smoke. Do not allow anyone else to smoke in your home. Recovery and Follow-Up Follow up with your doctor as you are told. You will likely feel better in a week or two. But a dry cough can linger beyond that time. Let your doctor know if you still have symptoms (other than a dry cough) after 2 weeks. If youre prone to getting bronchial infections, let your doctor know. And take steps to protect yourself from future infections. These steps include stopping smoking and avoiding tobacco smoke, washing your hands often, and getting a yearly flu shot. When to Call the Doctor Call the doctor if you have any of the following: Fever of 100.4?F (38.0?C) higher Symptoms that get worse, or new symptoms Trouble breathing Symptoms that dont start to improve within a week, or within 3 days of taking antibiotics ?? [id number] [facility], [address] [place] [address], [place] [address]. All rights reserved. This information is not intended as a substitute for professional medical care. Always follow your healthcare professional's instructions. Your Goals/Additional instructions: This document has images extracted. Please consider using [employer] for all your patient education needs. Source: [facility] POWERCHART Document Id: [id number] Miscellaneous - Jose G Jamil M.D. - 01/23/2014 3:03 PM CDT Ambulatory Discharge Medication List [place] [address] [facility] [place], [place] [phone] Visit Information Name: ISADORA BACK [facility] Number: [id number] Visit Date: 01/23/2014 15:03:10 Attending Provider: JOSE G JAMIL MD Primary Care Provider: LUI GAUTHIER MD ISADORA BACK has been given the [...] 2 puff(s), Inhalation, two times a day New Routed to [address] [place] [address] LORazepam (lorazepam 0.5 mg oral tablet) 1 [...] the Following Medications: Medication list as of 01-23-14 15:03 Attention: If you have any medications at home that are not on this list, DO NOT take them until youcontact your provider for clarification. Give a copy of your medication list to your primary care provider. Update your medication list any time medications or doses are changed and carry your medication list at all times in case of emergency. Electronically Signed By: JOSE G JAMIL MD Signed On:23-JAN-2014 15:02:39 Additional Information: Source: [facility] POWERCHART Document Id: [id number] Miscellaneous - Maribel Jackman L.P.N. 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 right ear painand fullness. This has since resolved with amoxicillin 500 mg since Wednesday. chest has felt full for 1 month. Onset of Symptoms : 1 week. Temperature Core : 37.2 DegC(Converted to: 99.0 DegF) Peripheral Pulse Rate : 78 /min Heart Rhythm : Regular Systolic Blood Pressure : 116 mmHg Diastolic Blood Pressure : 84 mmHg NIBP Mean : 95 mmHg BP Location : Right upper extremity Blood Pressure Cuff Size : Regular Height : 164 cm(Converted to: 5 ft 5 inch(es), 65 inch(es)) Actual Weight : 55.8 kg(Converted to: 123 lb 0 oz) Weight Source : Standing scale Dosing Weight Clinic : 55.8 kg Clinic BSA : 1.59 Body Mass Index : 20.75 kg/m2 MARIBEL JACKMAN - 01/23/2014 14:34 CDT General Info Information Given By : Patient Preferred Communication Mode : Verbal Languages : Greek Is Patient Female and 13-50 no hysterectomy : No MARIBEL JACKMAN - 01/23/2014 14:34 CDT Subjective Pain Symptoms : Yes MARIBEL JACKMAN - 01/23/2014 14:34 CDT Pain Pain Assessment Grid Pain 1 Location : Chest (Comment: when coughing [MARIBEL JACKMANYL - 01/23/2014 14:34 CDT] ) Laterality : Other: center of chest MARIBEL JACKMANYL - 01/23/2014 14:34 CDT Dependent Habits Tobacco Use/Currently Using : No Exposure to Tobacco Smoke : Other: quit smoking at age 22 Smoking Status : Former smoker MARIBEL JACKMAN - 01/23/2014 14:34 CDT Tobacco Use Grid Last Use : quit 1970 MARIBEL JACKMAN ZURI - 01/23/2014 14:34 CDT Caffeine Use Grid Caffeine Use : Current Type : Coffee, Soft drinks Frequency : Daily Amount : 4 Last Use : today MARIBEL JACKMAN ZURI - 01/23/2014 14:34 CDT Recreational Drug Use Grid Drug Use : None MARIBEL JACKMAN ZURI - 01/23/2014 14:34 CDT Source: [facility] [email or web address] Document Id: [id number] documented in this encounter Plan of Treatment Not on filedocumented as of this encounter Visit Diagnoses Not on filedocumented in this encounter
--- OUTSIDE RECORDS SUMMARY | 2022-02-13 09:18 | XMS_ITS | Encounter Summary ---
:1945 Author Organization [facility] Address [address] [place] [address] Care Team Providers Name Role Phone Unavailable Primary Care Provider Unavailable Encounter Details Date Type Department Care Team Description 05/30/2015 Hospital Encounter HX [facility] Lui Pearson M.D. [address], [place] [phone] (Wo rk) Social History [...] - - Height 159 cm (5' 2.6) 05/30/2015 11:15 AM BLOCK LAYER Body Mass Index - - documented in [...] Encounter - Conversion, Historical Provider Ser - 06/04/2015 4:55 PM CST *Phone Message Document Contains Addenda Addendum by IMER ALCANTARA LPN on 05 June 2015 09:25:51 BLOCK LAYER patient notified and will make appt Addendum by LUI ALVARADO MD on 04 June 2015 23:26:51 BLOCK LAYER From: LUI ALVARADO [facility]; Sent: 06/04/2015 23:26:51 BLOCK LAYER Subject: RE: *Phone Message Orders are in. Addendum by IMER ALCANTARA LPN on 04 June 2015 17:03:25 BLOCK LAYER From: [facility] ALCANTARA LPN ([facility] To: LUI ALVARADO MD; Sent: 06/04/2015 17:03:25 BLOCK LAYER ! Subject: FW: *Phone Message From: DREA LIRA (MARCIO [employer] Sales Rep) To: MARCIO [place] Nurse; Sent: 06/04/2015 16:55:23 BLOCK LAYER Subject: *Phone Message Caller is: ( x ) Patient ( ) Mother ( ) Father ( ) Spouse ( ) Daughter ( ) Son ( ) Pharmacy ( ) Other: Physician: Patient MRN #: Reason for Call: Patient is waiting for lab orders? Nothing is in the queue. Please place orders andcontact patient when she can schedule. [phone] Message: Advice/Action: Source used: ( ) Verbalizes understanding [...] back cell phone number ( ) [facility] Document Id: [id number] documented in this encounter Plan of Treatment Not on filedocumented as of this encounter Procedures Procedure Name Priority Date/Time Associated Diagnosis Comme nts BI BREAST SCREENING Routine 05/30/2015 11:58 AM R esults for this BILATERAL BLOCK LAYER procedure are i n the results section. documented in this encounter Results BI Breast Screening Bilateral (05/30/2015 11:58 AM BLOCK LAYER) Anatomical Region Laterality Modality Breast Bilateral Mammography Specimen (Source) Anatomical Collection Method Collection Time Re ceived Time Location / / Volume Laterality 05/30/2015 11:58 AM BLOCK LAYER Addenda Addendum by Provider, Jacquelyn Riggs 05/30/2015 11:58 AM BLOCK LAYER RAD^^^OW MA Mammo Screening w ??CADD 05/30/2015 11:58:50 Impressions 05/30/2015 3:43 PM BLOCK LAYER The breasts are heterogeneously dense, which may obscure small masses. No suspicious findings in either breast. No change. Recommendations: I recommend a follow-up mammogram in 1 year, self breast exams at least once per month and a clinical breast exam at least once per year. Of note, benign fin dings should not deter biopsy in the setting of a palpable abnormality . The false negative rate of mammography is approximately 10%. Code: 2 - Benign. Appropriate letter sent. Full field digital mammography is used a nd Computer Aided Detection is performed on the digital mammogram im ages. Narrative 05/30/2015 3:43 PM BLOCK LAYER EXAM: MA Mammo Screening w/ CADD INDICATION: yearly ? AGE: 70 years-old PREVIOUS STUDIES: Dating back to 2004 VIEWS: MLO and CC views of bilateral nery asts. Procedure Note Juno Tran M.D. / ProviderHis norberto M.D. - 08/21/2016 EXAM: MA Mammo Screening w/ CADD INDICATION: yearly AGE: 70 years-old PREVIOUS STUDIES: Dating back to 2004 VIEWS: MLO and CC views of bilateral nery asts. IMPRESSION: The breasts are heterogeneou sly dense, which may obscure small masses. No suspicious findings in either breast. No change. Recommendations: I recommend a follow-up mammogram in 1 year, self breast exams at least once per month and a clinical breast exam at least once per year. Of note, benign fin dings should not deter biopsy in the setting of a palpable abnormality . The false negative rate of mammography is approximately 10%. Code: 2 - Benign. Appropriate letter sent. Full field digital mammography is used a nd Computer Aided Detection is performed on the digital mammogram im ages. Historical Provider IMG BI PROCEDURES documented in this encounter Visit Diagnoses Not on filedocumented in this encounter
--- OUTSIDE RECORDS SUMMARY | 2022-02-13 09:18 | XMS_ITS | Encounter Summary ---
:1945 Author Organization [facility] Address [address] [place] [address] Care Team Providers Name Role Phone Unavailable Primary Care Provider Unavailable Encounter Details Date Type Department Care Team Description 06/01/2016 Hospital Encounter HX [facility] Luisa Alba M.D. [address] [place], [place] [phone] (Wo rk) Social History [...] Sign Reading Time Taken Comments Blood Pressure 136/84 06/01/2016 9:12 AM REGIONAL LOSS PREVENTION MANAGER Pulse 76 06/01/2016 9:12 AM REGIONAL LOSS PREVENTION MANAGER Temperature - - Respiratory Rate 16 06/01/2016 9:12 AM REGIONAL LOSS PREVENTION MANAGER Oxygen Saturation - - Inhaled Oxygen Concentration - - Weight 55.4 kg (122 lb 3.9 oz) 06/01/2016 9:12 AM REGIONAL LOSS PREVENTION MANAGER Height 159 cm (5' 2.6) 06/01/2016 9:12 AM REGIONAL LOSS PREVENTION MANAGER Body Mass Index 21.93 06/01/2016 9:12 AM REGIONAL LOSS PREVENTION MANAGER documented in this encounter Medications at Time of Discharge Medication Sig Dispensed Refills Start Date End Date calcium carbonate-vitamin Chew 1 tablet. 0 2009 D3 1,250 mg (500 mg calcium)-400 unit per chewable tablet LACTOBACILLUS ACIDOPHILUS Take by mouth daily. 0 10/05/2012 (ACIDOPHILUS ORAL) multivitamin tablet Take 1 tablet by 0 06/28/2009 mouth. documented as of this encounter H&P Notes Luisa Whitten M.D. - 06/01/2016 8:59 AM CST [id number] CHIEF COMPLAINT/ REASON FOR VISIT Review medications, review medical concerns, update preventive services. HISTORY OF PRESENT ILLNESS Isadora is a 71 year old female who presents to the clinic today for an annual exam. Overall she is doing well and has not had any recent illnesses. Isadora wonders if she should continue with annual mammograms. She last had a fasting lipid panel checked on 06/13/2015 which showed an LDL of 115, HDL of 67, triglyceride of 120 and total cholesterol of 206. The patient denies any additional questions or concerns at this time. MEDICATIONS Post-visit Medication Reconciliation 1. Tylenol, PO, PRN. 2. ProAir HFA 90mcg/inh inhalation aerosol, 2 puffs, q4hr, PRN for wheezing. 3. Flovent HFA 110mcg/inh inhalation aerosol, 2 puffs, b.i.d. 4. Lorazepam 0.5mg, 1 tablet, PO, daily at bedtime, PRN for anxiety. 5. Acidophilus, 1 tablet, PO, daily. 6. Potassium citrate, PO, maintenance. 7. Sumatriptan 25 mg, 1 tablet, PO, PRN for migraine headaches. 8. Triamcinolone 0.1% topical ointment, apply to affected area t.i.d. ALLERGIES Diflucan-blister, swelling of throat. Sulfa drugs-nausea. Ciprofloxacin-tendonitis. Metronidazole-tendonitis. SYSTEMS REVIEW Please see HPI for pertinent [...] 11. Migraine headaches. 12. Reactive airways disease. 13. Colonoscopy; most recently done on 11/10/[address] Eric Cabrera who recommended 5 year followup. 14. Personal history of colon polyps. PREVENTIVE SERVICES Tobacco use: none, former smoker. Mammogram: 05/30/2015. Colonoscopy: 11/10/2012 with recommended 5 year followup. Pap smear: 04/14/2013. Bone density: 04/25/2012. Lipid panel: 04/14/2013. Tetanus booster: 04/03/2013. Pneumococcal 23: 04/08/2012. Pneumovax 13: 05/29/2014. Influenza: declined. SOCIAL HISTORY She continues to care for grandchildren. 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 FAMILY HISTORY Mother is and had breast cancer in her 60s and also had COPD, diabetes, hypertension, and macular degeneration; she when she was 90 of organ failure. Father at age 80 of laryngeal cancer. He also had hypertension. Sister, Ivon has coronary artery disease. Brother at age50 of laryngeal cancer. VITAL SIGNS HEIGHT: 159 cm. WEIGHT: 55.45 kg. BMI: 21.93 kg/m2. TEMP: 36.3 Deg C. PULSE: 76 /min. RESP: 16 /min. SYSTOLIC: 136 mmHg. DIASTOLIC: 84 mmHg. PHYSICAL EXAMINATION GENERAL: Patient is alert and oriented times three, in no acute distress, good hygiene and is dressed appropriately. ENT: Tympanic membranes are normal bilaterally. Oropharynx is without erythema or exudate. Nasal mucosa is without injection. Neck is without adenopathy. LYMPH [...] uterus and adnexa. EXTREMITIES: Within normal limits. DIAGNOSTICS: PHQ9 score of 0. BMP and Hepatitis C screening results: pending. IMPRESSION/REPORT/PLAN 1. Health care maintenance. She is encouraged to achieve and maintain healthy body weight through diet and exercise. She is reminded of the need for monthly self-breast exam, yearly eye and regular dental visits. I recommended continuing with annual mammograms; mammogram was ordered which she may schedule at her convenience. Fasting BMP and Hepatitis C screening will be checked today; she will be notified of the results. 2. History of colon polyps. She will be due for a colonoscopy in 10/2017. 3. Follow up. The patient will contact [...] Electronically Signed By: LUISA WHITTEN MD On: 06/28/2016 04:58 PM Source: [facility] Document Id: [id number] documented in this encounter Miscellaneous Notes Miscellaneous - Imer Alston, L.P.N. - 06/01/2016 9:16 AM CST PHQ-9 PHQ-9 Entered On: 06/01/2016 9:16 REGIONAL LOSS PREVENTION MANAGER Performed On: 06/01/2016 9:16 REGIONAL LOSS PREVENTION MANAGER by IMER ALSTON LPN PHQ-9 Little interest or pleasure in doing things : Not at all Feeling down, depressed, or hopeless : Not at all Trouble falling or staying asleep, or sleeping too much : Not at all Feeling tired or having little energy : Not at all Poor appetite or overeating : Not at all Feeling bad about yourself or that you are a failure : Not at all Trouble concentrating on things : Not at all Moving or speaking slowly; restless or fidgety : Not at all Thoughts that you would be better off /hurting self : Not at all PHQ-9 Calculated Score : 0 IMER ALSTON LPN - 06/01/2016 9:16 REGIONAL LOSS PREVENTION MANAGER Source: [place] Document Id: [id number] REGIONAL LOSS PREVENTION MANAGER!12 ONAL LOSS PREVENTION MANAGER Miscellaneous - Imer Alston, L.P.N. - 06/01/2016 9:14 AM CST Health Assessment Health Assessment Entered On: 06/01/2016 9:16 REGIONAL LOSS PREVENTION MANAGER Performed On: 06/01/2016 9:14 REGIONAL LOSS PREVENTION MANAGER by IMER ALSTON LPN Health Assessment Complete Health Assessment Complete or Modified : Annual Health Assessment Annual Health Assessment Completed : Yes IMER ALSTON LPN - 06/01/2016 9:14 REGIONAL LOSS PREVENTION MANAGER Nutrition Nutrition Risk Factors by History Adult : None Home Diet : Other: gluetin free diet IMER ALSTON LPN - 06/01/2016 9:14 REGIONAL LOSS PREVENTION MANAGER Functional Living Situation : Home independently Current Daily Living Assistance : None IMER ALSTON LPN - 06/01/2016 9:14 REGIONAL LOSS PREVENTION MANAGER Dependent Habits Exposure to Tobacco Smoke : Other: quit smoking at age 22 Smoking Status : Former smoker Tobacco 2A : Yes Tobacco Use/Currently Using : No Tobacco Use/Last 30 Days : No Tobacco Use/Last 12 months : No Tobacco Last Use/Year : 1965 Alcohol Use : Yes IMER ALSTON [facility] - 06/01/2016 9:14 REGIONAL LOSS PREVENTION MANAGER Caffeine Use Grid Caffeine Use : Current Type : Coffee, Soft drinks Frequency : Daily Amount : 1-2 cups Last Use : 11/01/15 IMER ALSTON [facility] - 06/01/2016 9:14 REGIONAL LOSS PREVENTION MANAGER Recreational Drug Use Grid Drug Use : None IMER ALSTON [facility] - 06/01/2016 9:14 REGIONAL LOSS PREVENTION MANAGER AUDIT Tool How Often Do You Have A Drink : Monthly or less How Many Drinks in a Day When Drinking : 1 or 2 Six or More Drinks On One Occassion : Never Audit Phase 1 Score : 1 IMER ALSTON [facility] - 06/01/2016 9:14 REGIONAL LOSS PREVENTION MANAGER Psychosocial Domestic Abuse Concerns : None Behavioral Health Screen/Safety Assmt : No Sabianism Preference : No qualifying data available. IMER ALSTON [facility] - 06/01/2016 9:14 REGIONAL LOSS PREVENTION MANAGER Advance Directive Advanced Directives : No Advance Directive Additional Information : No IMER ALSTON [facility] - 06/01/2016 9:14 REGIONAL LOSS PREVENTION MANAGER Educ Needs Learning Style Preference Adult Grid Patient : Demonstration, Printed materials, Verbal explanation Family : None IMER ALSTON NETWORK SECURITY ARCHITECT - 06/01/2016 9:14 REGIONAL LOSS PREVENTION MANAGER Source: [facility] POWERCHART Document Id: [id number] REGIONAL LOSS PREVENTION MANAGER!45 ONAL LOSS PREVENTION MANAGER Miscellaneous - Imer Alston, L.P.N. - 06/01/2016 9:12 AM CST Adult Corporate Buyer Intake/History Adult Corporate Buyer Intake/History Entered On: 06/01/2016 9:14 REGIONAL LOSS PREVENTION MANAGER Performed On: 06/01/2016 9:12 REGIONAL LOSS PREVENTION MANAGER by IMER ALSTON [facility] Intake Chief Complaint : physical with patient fasting for any needed bloodwork LMP Date : Postmenopausal Temperature Core : 36.3 DegC(Converted to: 97.3 DegF) (LOW) Peripheral Pulse Rate : 76 /min Respiratory Rate : 16 /min Systolic Blood Pressure : 136 mmHg Diastolic Blood Pressure : 84 mmHg NIBP Mean : 101 mmHg BP Location : Left upper extremity Blood Pressure Cuff Size : Regular Height : 159 cm(Converted to: 5 ft 3 inch(es), 63 inch(es)) Actual Weight : 55.45 kg(Converted to: 122 lb 4 oz) Weight Source : Standing scale Dosing Weight Clinic : 55.45 kg Prosthetic device on during patient weight : No Clinic BSA : 1.56 Body Mass Index : 21.93 kg/m2 IMER ALSTON [facility] - 06/01/2016 9:12 REGIONAL LOSS PREVENTION MANAGER General Info Information Given By : Patient Preferred Communication Mode : Verbal Languages : Welsh Is Patient Female and 13-50 no hysterectomy : No IMER ALSTON [facility] 06/01/2016 9:12 REGIONAL LOSS PREVENTION MANAGER Subjective Pain Symptoms : Yes IMER ALSTON [facility] 06/01/2016 9:12 REGIONAL LOSS PREVENTION MANAGER Pain Scale Pain Scale Verbal 0-10 : Open IMER ALSTON [facility] 06/01/2016 9:12 REGIONAL LOSS PREVENTION MANAGER Pain Pain Assessment Grid Pain 1 Location : Foot Laterality : Bilateral Intensity : 2 IMER ALSTON [facility] - 06/01/2016 9:12 REGIONAL LOSS PREVENTION MANAGER Dependent Habits Exposure to Tobacco Smoke : Other: quit smoking at age 22 Smoking Status : Former smoker Tobacco 2A : Yes Tobacco Use/Currently Using : No Tobacco Use/Last 30 Days : No Tobacco Use/Last 12 months : No Tobacco Last Use/Year : 1967 IMER ALSTON [facility] 06/01/2016 9:12 REGIONAL LOSS PREVENTION MANAGER Caffeine Use Grid Caffeine Use : Current Type : Coffee, Soft drinks Frequency : Daily Amount : 1-2 cups Last Use : 11/01/15 IMER ALSTON [facility] - 06/01/2016 9:12 REGIONAL LOSS PREVENTION MANAGER Recreational Drug Use Grid Drug Use : None IMER ALSTON [facility] 06/01/2016 9:12 REGIONAL LOSS PREVENTION MANAGER Source: [place] Document Id: [id number] REGIONAL LOSS PREVENTION MANAGER!52 ONAL LOSS PREVENTION MANAGER documented in this encounter Plan of Treatment Not on filedocumented as of this encounter Procedures Procedure Name Priority Date/Time Associated Diagnosis Comme nts HCV AB SCRN Routine 06/01/2016 10:10 AM Results for this W/REFLEX TO HCV REGIONAL LOSS PREVENTION MANAGER procedure ar e in PCR, S the results section. BASIC METABOLIC Routine 06/01/2016 10:10 AM Resul ts for this PANEL, S/P REGIONAL LOSS PREVENTION MANAGER procedure are i n the results section. documented in this encounter Results (ABNORMAL) BMP (Basic Metabolic Panel) (06/01/2016 10:10 AM REGIONAL LOSS PREVENTION MANAGER) athologist Signature Sodium, S 137 135 - 145 POWERCHART MMOLL Potassium, S 4.6 3.6 - 5.2 POWERCHART MMOLL Chloride, S 98 98 - 107 POWERCHART MMOLL CO2 Total 27 22 - 29 POWERCHART MMOLL Comment: Reference ranges have not been established for patients that are <12 months of age. Glucose, Fasting, S 97 70 - 99 MGDL POWERCH ART BUN (Blood Urea Nitrogen), S 7 6 - 21 MGDL POWERCHART Creatinine 0.95 0.60 - 1.10 MGDL POWERCHART Calcium, Total, S 9.9 8.8 - 10.3 MGDL POWERC COE Anion Gap 12 7 - 15 MMOLL POWERCHART HXeGFR (MDRD) 58 (L) >=60 [id number] POWERCHART eGFR Black/ >60 >=60 [id number] POWERCHART Specimen (Source) Anatomical Collection Method Collection Time Re ceived Time Location / / Volume Laterality Blood 06/01/2016 10:10 AM REGIONAL LOSS PREVENTION MANAGER Luisa Roy M.D. LAB BLOOD ADD-ON Performing Organization Address City/State/ZIP Code Phon e Number POWERCHART HCV Ab w/Reflex to HCV PCR, S (medicare) (06/01/2016 10:10 AM REGIONAL LOSS PREVENTION MANAGER) athologist Signature HXHCV Ab Negative Negative POWERCHART Counts Include [address] Comment: Hzunbi-xc-erswrf ratio is <1.00. Test Performed by: [address] [address] [place] Hand: Giacomo Gatica II, M.D., Ph.D. Specimen (Source) Anatomical Collection Method Collection Time Re ceived Time Location / / Volume Laterality Blood 06/01/2016 10:10 AM REGIONAL LOSS PREVENTION MANAGER Luisa Leyva.D. LAB MICROBIOLOGY - BLO OD ORDERABLES Performing Organization Address City/State/ZIP Code Phon e Number POWERCHART documented in this encounter Visit Diagnoses Not on filedocumented in this encounter
--- OUTSIDE RECORDS SUMMARY | 2022-02-13 09:18 | XMS_ITS | Encounter Summary ---
:1945 Author Organization [facility] Address [address] [place] [address] Care Team Providers Name Role Phone Unavailable Primary Care Provider Unavailable Encounter Details Date Type Department Care Team Description 11/07/2014 Hospital Encounter HX [facility] Manuel Gresham M.D. [id number] , [address] [place], [place] [address] (Wo rk) Social History [...] - - Height 162 cm (5' 3.78) 11/07/2014 10:49 AM CDT Body Mass Index - - documented [...] documented as of this encounter Progress Notes aTnna Gresham M.D. - 11/07/2014 10:19 AM CDT DERM-LE CHIEF COMPLAINT/REASON FOR VISIT Spot on left cheek. HISTORY OF PRESENT ILLNESS Ms. Bruno Back is a very pleasant 69-year-old female with no personal history of skin cancer presents for an evaluation of 1-month history of a moderately itchy, skin-colored, firm, smooth bump on the left cheek that does not bleed and does not hurt. The itching is worse when she talks on her cell phoneand it rubs against it. Topical emollients have not improved this. Otherwise, there is a red spot onthe nasal dorsum that she would like evaluated. Otherwise, Ms. Back is in her routine state of health. An integumentary and allergic/immunologic review of systems is negative except otherwise remarked above or below. PAST MEDICAL/SURGICAL HISTORY Negative skin cancer. SYSTEMS REVIEW As noted above. ALLERGIES Ciprofloxacin, Diflucan, epinephrine (lidocaine causes no problems), metronidazole, and sulfa drugs. PHYSICAL EXAMINATION GENERAL: Pleasant, euthymic, well-dressed, well-appearing female, seated in chair, appropriately alert and oriented x3 in no acute distress. SKIN: Skin examination performed of the scalp, head, neck, face, eyes, oral mucosa, upper chest, andbilateral upper extremities. There is some sun damaged skin. On the nose, is a telangiectasia with redness that partially blanches on diascopy and refills. No evidence of basal cell cancer on dermopathy. On the left cheek, there is a 2.5 mm skin colored, firm papule consistent with skin growth of uncertain behavior (probable epidermoid cyst). IMPRESSION/REPORT/PLAN 1. Skin growth of uncertain behavior, left cheek. We will perform excision to rule out skin cancer. This may be a ruptured epidermoid cyst. Verbal consent obtained for photograph of this lesion today to document location. Indication is to rule out skin cancer. Recommended removal due to rule out skin cancer. Skin specimen to pathology. The patient should receive notification of the outcome of the pathology results in 2 to 4 weeks and should call the clinic otherwise. Risks, benefits, alternatives of the procedure and necessity of other healthcare team members were reviewed and discussed. All questions answered. Before the procedure, a pause was conducted to identify patient identity, procedure, site, position. Special equipment and requirements were also verified. Procedure Details: Excision with simple repair. Location: Left cheek. Indication: Excision to rule out skin cancer. Anesthesia used was 1% lidocaine with no epinephrine and no preservative. The skin of the left cheek was identified and prepped in the usual sterile fashion. Preoperative size: 2.5 mm. The lesion was excised with 0.25 mm clinically tumor-free margins in a fusiform fashion through the skin and through the subcutaneous tissue for a total excisional size of 3 mm diameter. Due to wound size, the wound edges were closed in a simple fashion using 6-0 nylon skin sutures. Final length was 4 mm. Estimated blood loss was none. Complications were none. Wound care is routine. Wound dressing applied and wound care instructions provided. Hemostasis confirmed. Skin specimen to pathology to rule out skin cancer. Biopsy report pending. Remove skin suture at 7 days. 2. Telangiectasia, nose: The benign nature of the diagnosis was discussed. No treatment required. Recommend observation. Return to Dermatology for reassessment if symptoms or change noted. 3. Sun-damaged skin: Due to chronic sun damage in order to reduce risk of skin cancer and flare of photo-sensitive dermatoses, we recommend use of 50 SPF sunscreen from [employer] 2 times daily to the skin when going outdoors for more than 30 minutes. PATIENT EDUCATION Ready to learn, no apparent learning barriers were identified; learning preferences include listening. Explained diagnosis and treatment plan; patient expressed understanding of the content. Tanna Gresham M.D./rolando Electronically Signed By: TANNA GRESHAM MD On: 02/18/2015 02:20 PM Source: [facility] MHSDOLBEYNONRADSYS Document Id: [id number] GRATION MANAGER documented in this encounter Miscellaneous Notes Miscellaneous - Tanna Gresham M.D. - 11/12/2014 1:20 PM CDT Results Notification Document Contains Addenda Addendum by PEYTON MANNING on 12 November 2014 14:01:13 CDT noted From: TANNA GRESHAM MD To: Dermatology Nurse; Sent: 11/12/2014 13:20:06 CDT Show up: 11/12/2014 13:20:00 CDT Subject: Results Notification No need to call patient. Letter sent. A. DermPath Consultation, Wet Tissue; left cheek: Ruptured inflamed epidermal cyst Results: Date Result Name Value 11/07/2014 14:49 Drm Exam [facility] [id number] 11/07/2014 14:49 Drm Exam Addr[place] See Comment 11/07/2014 14:49 Drm Exam Impr[place] See Comment 11/07/2014 14:49 Drm Exam Mtrl[place] See Comment 11/07/2014 14:49 Drm Exam Refer[place] See Comment 11/07/2014 14:49 Drm Exam Sign[place] See Comment 11/07/2014 14:49 Drm Exam Site[place] See Comment Source: [facility] POWERCHART Document Id: [id number] Miscellaneous - Tanna Gresham M.D. - 11/12/2014 1:19 PM CDT Custom Result Letter 12 November 2014 ISADORA BACK [address] [place] [id number] Dear ISADORAVy BACK, During your evaluation in the Department of Dermatology, a biopsy specimen was obtained from the skin lesion on your left cheek. The specimen was examined under the microscope and showed a ruptured andinflamed epidermal cyst (benign cyst). This is a benign condition of the skin that is not a cancer and requires no further treatment. It was a pleasure to participate in your dermatologic care. Please do not hesitate to contact me if you have any questions. Result Name Current Result Drm Exam [facility] [id number] 11/07/2014 Drm Exam [facility] See Comment 11/07/2014 Drm Exam Impr[facility] See Comment 11/07/2014 Drm Exam Mtrl[place] See Comment 11/07/2014 Drm Exam Ref[facility] See Comment 11/07/2014 Drm Exam Sign[place] See Comment 11/07/2014 Drm Exam [facility] See Comment 11/07/2014 Sincerely, TANNA GRESHAM [address] [place] [id number] Electronic Signature Electronically Signed By: TANNA GRESHAM MD On: 12 November 2014 This document has images extracted. Source: [facility] POWERCHART Document Id: [id number] Miscellaneous - Tanna Gresham M.D. - 11/07/2014 7:50 PM CDT Ambulatory Patient Summary [facility] [address] [place] [id number] Visit Information Name: FRANCIS ISADORA NIX [facility] Number: [id number] Current Date: 11/07/2014 19:50:52 Physicians Attending Provider: TANNA GRESHAM MD Primary Care Provider: LUI ALVARADO MD ISADORA BACKE has been given the following list of [...] the Following Medications: Medication list as of 11-07-14 19:50 Attention: If you have any medications at home that are not on this list, DO NOT take them until youcontact your provider for clarification. Give a copy of your medication list to your primary care provider. Update your medication list any time medications or doses are changed and carry your medication list at all times in case of emergency. Electronically Signed By: Signed On: Your Allergies & Intolerances Substance Reaction Symptoms [...] if you dont have one. Go to [email or web address] and click on Create Your Account. Then, follow the directions to complete the online form. Youll be asked for your [facility] number which you can find at the top of this document. Your Goals/Additional instructions: Source: [facility] POWERCHART Document Id: [id number] Miscellaneous - Tanna Gresham M.D. - 11/07/2014 7:50 PM CDT Ambulatory Discharge Medication List [facility] [address] [place], [place] [phone] Visit Information Name: ISADORA BACK [facility] Number: [id number] Visit Date: 11/07/2014 19:50:52 Attending Provider: TANNA GRESHAM MD Primary Care Provider: LUI ALVARADO MD [...] the Following Medications: Medication list as of 11-07-14 19:50 Attention: If you have any medications at home that are not on this list, DO NOT take them until youcontact your provider for clarification. Give a copy of your medication list to your primary care provider. Update your medication list any time medications or doses are changed and carry your medication list at all times in case of emergency. Electronically Signed By: Signed On: Additional Information: Source: [facility] Tail Document Id: [id number] Miscellaneous - Rodolfo Chaudhry R.M.AElda - 11/07/2014 10:49 AM CDT Adult Twist Packer Intake/History Adult Twist Packer Intake/History Entered On: 11/07/2014 10:49 CDT Performed On: 11/07/2014 10:49 CDT by RODOLFO CHAUDHRY Intake Chief Complaint : Itchy bump on left cheek x 4 weeks Height : 162 cm(Converted to: 5 ft 4 inch(es), 64 inch(es)) RODOLFO CHAUDHRY - 11/07/2014 10:49 CDT General Info Information Given By : Patient Languages : Ghanaian Is Patient Female and 13-50 no hysterectomy : No RODOLFO CHAUDHRY - 11/07/2014 10:49 CDT Subjective Pain Symptoms : No RODOLFO CHAUDHRY - 11/07/2014 10:49 CDT Dependent Habits Tobacco Use/Currently Using : No Exposure to Tobacco Smoke : Other: quit smoking at age 22 Smoking Status : Former smoker RODOLFO CHAUDHRY - 11/07/2014 10:49 CDT Caffeine Use Grid Caffeine Use : Current Type : Coffee, Soft drinks Frequency : Daily Amount : 4 Last Use : today RODOLFO CHAUDHRY - 11/07/2014 10:49 CDT Recreational Drug Use Grid Drug Use : None RODOLFO CHAUDHRY - 11/07/2014 10:49 CDT Source: [facility] Tail Document Id: [id number] CDT!24 documented in this encounter Plan of Treatment Not on filedocumented as of this encounter Procedures Procedure Name Priority Date/Time Associated Comments Diagnosis DERMATOPATHOLOGY CONSULT Routine 11/07/2014 2:49 Results for this PM CDT procedure are i n the results section. LAB SURG PATH,LEVEL III Routine 11/07/2014 2:49 R esults for this PRO AND TECH PM CDT procedure are i n the results section. documented in this encounter Results LAB SURG PATH,LEVEL III PRO AND TECH (11/07/2014 2:49 PM CDT) Analysis Performed At Patho logist Time Signature HXLvl III Surg Performed POWERCHART [facility] Comment: Test Performed by: [address] [address] Bee Raiser: Giacomo Gatica II, M.D., Ph.D. Specimen Anatomical Collection Method Collection Time Receive d Time (Source) Location / / Volume Laterality Tissue 11/07/2014 2:49 PM 5 7:13 CDT AM CDT Historical Provider [facility] Performing Organization Address City/State/ZIP Code Phon e Number POWERCHART PATHOLOGY DERMPATH CONSULT, WET TISSUE (11/07/2014 2:49 PM CDT) [facility] gist Method Time Signature HXDrm Exam [id number] [facility] HXDrm Exam See Comment POWERCHART [facility] Comment: RESULT: Tanna Gresham M.D. HXDrm Exam [facility] See Comment POWERCH ART Comment: [address] [address] HXDrm Exam [facility] See Comment POWERCH ART Comment: RESULT: A. DermPath Consultatio n, Wet Tissue; left cheek: HXDrm Exam [facility] See Comment POWERCH ART Comment: A. ??Received in formalin labeled with t he patient's name and and lab eled as left cheek is a 0.3 cm in diameter skin punch biopsy exc ised to depth of 0.4 cm. ??No discrete lesion is grossly identified. T he specimen is submitted en toto in cassette A1. HXDrm Exam [facility] See Comment POWERCH ART Comment: A. ??DermPath Consultation, Wet Tissue; left cheek: ??Ruptured inflamed epidermal cyst HXDrm Exam [facility] See Comment POWERCH ART Comment: RESULT: 11/12/2014 11:12 ??Interpreted by : Sloane Oliveros M.D Report electronically signed by Sloane Oliveros M.D. Transcribed by: yulissa 11/12/2014 10:20:28 Test Performed by: [place] [address] Bee Raiser: Giacomo Gatica II, M.D., Ph.D. Specimen (Source) Anatomical Collection Method Collection Time Re ceived Time Location / / Volume Laterality Tissue 11/07/2014 2:49 PM CDT Tanna Gresham M.D. LAB PATH DERM ORDERABLES Performing Organization Address City/State/ZIP Code Phon e Number POWERCHART documented in this encounter Visit Diagnoses Not on filedocumented in this encounter
--- OUTSIDE RECORDS SUMMARY | 2022-02-13 09:18 | XMS_ITS | Encounter Summary ---
:1945 Author Organization [facility] Address [address] [place] [address] Care Team Providers Name Role Phone Unavailable Primary Care Provider Unavailable Encounter Details Date Type Department Care Team Description 05/21/2014 Hospital Encounter [facility] Channing Preciado P.A.-C. [address] [place] [address] (Wo rk) Social History Tobacco [...] Reading Time Taken Comments Blood Pressure 128/82 05/21/2014 1:26 PM MOISTURE METER READER Pulse 66 05/21/2014 1:26 PM MOISTURE METER READER Temperature - - Respiratory Rate 16 05/21/2014 1:26 PM MOISTURE METER READER Oxygen Saturation - - Inhaled Oxygen Concentration - - Weight 57 kg (125 lb 10.6 oz) 05/21/2014 1:26 PM MOISTURE METER READER Height 162 cm (5' 3.78) 05/21/2014 1:26 PM MOISTURE METER READER Body Mass Index 21.72 05/21/2014 1:26 PM MOISTURE METER READER documented in this encounter Medications at Time [...] encounter Progress Notes Adele Preciado P.A.-C. - 05/21/2014 1:08 PM CST [id number] CHIEF COMPLAINT/REASON FOR VISIT Back pain x3 days. HISTORY OF PRESENT ILLNESS Isadora is a very pleasant 69-year-old female, who has had some back pain for the last 3 days, and she does not recall any specific injury. She has had some radiation of the pain down into her gluteal region. She denies any real pain with urination. She went on a long car ride over this weekend, where she really did not help things. She has tried ice and heat and taken warm bath, but does not seem to have made any better. PHYSICAL EXAMINATION VITAL SIGNS: Noted in the EMR. GENERAL: She appears in no acute distress. HEART: Regular rate and rhythm. No murmurs. LUNGS: Clear to auscultation. ABDOMEN: Soft, nontender to palpation. BACK: Shows some mild left-sided CVA tenderness to percussion, but this radiates more so down into her sacroiliac and her gluteal region rather than around to the front in her flank area. DIAGNOSTICS Urinalysis was done today and was normal. IMPRESSION/REPORT/PLAN Back pain. I think more likely this is a musculoskeletal back pain. I am going to give her refill ofher cyclobenzaprine, which she has used in the past. I have her take this up to 3 times a day, but it may make her drowsy. She do some ibuprofen 600 mg 3 times a day for the next 3 to 4 days. If her symptoms worsen, not completely resolve with this therapy, she will let us know, otherwise followup as needed. Adele Preciado PA-C/rolando Electronically Signed By: ADELE PRECIADO PA-C On: 05/23/2014 08:50 AM Source: [facility] MHSDOLBEYNONRADSYS Document Id: [id number] TURE METER READER documented in this encounter Nursing Notes Marco Hernandez L.P.NElda - 05/21/2014 4:03 PM CST Prior Authorization request cyclobenzaprine HCI Document Contains Addenda Addendum by MARCO HERNANDEZ LPN on 23 May 2014 13:56 MOISTURE METER READER Received notice that a diagnoses was requested for the prior authorization, have faxed this information back to [facility]. Modified by and Electronically Signed by: MARCO HERNANDEZ LPN On: 05/23/2014 01:56 PM Prior Authorization Request for Cyclobenzaprine HCI completed through cover my meds inititated by pharmacy. Time spent on form 25 minutes. Electronically Signed By: MARCO HERNANDEZ LPN On: 05/21/2014 04:05 PM Source: [facility] POWERCHART Document Id: [id number] TURE METER READER documented in this encounter Miscellaneous Notes Miscellaneous - Vanessa Monroy C.M.A. - 05/21/2014 1:26 PM CST Adult Electrician Aircraft Intake/History Adult Electrician Aircraft Intake/History Entered On: 05/21/2014 13:29 MOISTURE METER READER Performed On: 05/21/2014 13:26 MOISTURE METER READER by VANESSA MONROY Intake Chief Complaint : possible kidney infection,(lower left side hurts) Temperature Core : 36.5 DegC(Converted to: 97.7 DegF) Peripheral Pulse Rate : 66 /min Respiratory Rate : 16 /min Systolic Blood Pressure : 128 mmHg Diastolic Blood Pressure : 82 mmHg NIBP Mean : 97 mmHg BP Location : Right upper extremity Blood Pressure Cuff Size : Regular Height : 162 cm(Converted to: 5 ft 4 inch(es), 64 inch(es)) Actual Weight : 57 kg(Converted to: 125 lb 11 oz) Weight Source : Standing scale Dosing Weight Clinic : 57 kg Clinic BSA : 1.6 Body Mass Index : 21.72 kg/m2 VANESSA MONROY - 05/21/2014 13:26 MOISTURE METER READER General Info Information Given By : Patient Languages : Icelandic Is Patient Female and 13-50 no hysterectomy : No VANESSA MONROY 05/21/2014 13:26 MOISTURE METER READER Subjective Pain Symptoms : Yes VANESSA MONROY 05/21/2014 13:26 MOISTURE METER READER Pain Scale Pain Scale Verbal 0-10 : Open VANESSA MONROY 05/21/2014 13:26 MOISTURE METER READER Pain Pain Assessment Grid Pain 1 Location : Lower back Laterality : Left VANESSA MONROY 05/21/2014 13:26 MOISTURE METER READER Dependent Habits Tobacco Use/Currently Using : No Exposure to Tobacco Smoke : Other: quit smoking at age 22 Smoking Status : Former smoker VANESSA MONROY 05/21/2014 13:26 MOISTURE METER READER Tobacco Use Grid Last Use : quit 1970 VANESSA MONROY 05/21/2014 13:26 MOISTURE METER READER Caffeine Use Grid Caffeine Use : Current Type : Coffee, Soft drinks Frequency : Daily Amount : 4 Last Use : today VANESSA MONROY 05/21/2014 13:26 MOISTURE METER READER Recreational Drug Use Grid Drug Use : None VANESSA MONROY 05/21/2014 13:26 MOISTURE METER READER ID Screen Drug Resistant Organism : No Travel Within Last 21 Days : No VANESSA MONROY 05/21/2014 13:26 MOISTURE METER READER Source: [facility] POWERCHART Document Id: [id number] MOISTURE METER READER!50 TURE METER READER documented in this encounter Plan of Treatment Not on filedocumented as of this encounter Procedures Procedure Name Priority Date/Time Associated Comments Diagnosis BACTERIAL CULTURE, Routine 05/21/2014 1:27 PM Res ults for this AEROBIC, URINE MOISTURE METER READER procedure are in the results section. URINALYSIS WITH Routine 05/21/2014 1:26 PM Result s for this MICROSCOPIC MOISTURE METER READER procedure are i n the results section. documented in this encounter Results Bacterial Culture, Aerobic, Urine (05/21/2014 1:27 PM MOISTURE METER READER) [facility] Method Time Signature Bacterial POWERCHART Culture, Aerobic, Urine HXPre No growth POWERCHART HXFinal Mixed agusto. No POWERCHART further studies unless notified. HXFinal [facility] POWERCHART Microbiology laboratory [phone] Specimen (Source) Anatomical Collection Method Collection Time Re ceived Time Location / / Volume Laterality Urine, First 05/21/2014 1:27 PM Voided MOISTURE METER READER Adele Preciado P.A.-C. LAB MICROBIOLOGY - GENERAL O RDERABLES Performing Organization Address City/State/ZIP Code Phon e Number POWERCHART (ABNORMAL) Urinalysis, Complete, Includes Microscopic (05/21/2014 1:26 PM MOISTURE METER READER) [facility] Method Time Signature Protein, Ur, Dip Negative Negative POWERCHART MGDL HXUr Color Yellow Colorless POWERCHART Glucose Negative Negative POWERCHART MGDL HXBILIRUBIN Negative Negative POWERCHART Ketones, QL(U) Negative Negative POWERCHART MGDL Specific 1.015 POWERCHART [place], POCT, U Clarity Clear Clear POWERCHART pH, POCT, Urine 7.0 <5.0 POWERCHART HXBLOOD Trace (A) Negative POWERCHART Urobilinogen 0.2 0.2 MGDL POWERCHART HXNITRITE Negative Negative POWERCHART Leukocyte Negative Negative POWERCHART Esterase HXUR WBC. Occ-3 None Seen POWERCHART HPF HXUR RBC. Occ-2 None Seen POWERCHART HPF Specimen (Source) Anatomical Collection Method Collection Time Re ceived Time Location / / Volume Laterality Urine, First 05/21/2014 1:26 PM Voided MOISTURE METER READER Adele Preciado P.A.-C. LAB URINE ORDERABLES Performing Organization Address City/State/ZIP Code Phon e Number POWERCHART documented in this encounter Visit Diagnoses Not on filedocumented in this encounter
--- OUTSIDE RECORDS SUMMARY | 2022-02-13 09:18 | XMS_ITS | Encounter Summary ---
:1945 Author Organization [facility] Address [address] [place] [address] Care Team Providers Name Role Phone Luisa Roy M.D. Primary Care Provider Reason for Visit Reason Comments Neck Pain patient requesting referal rashida toribio physical therapy for chronic neck pain with headaches Appointment Request (Routine) - Closed Specialty Diagnoses / Procedures Referred By Contact Refer red To Contact Family Medicine Luisa Roy M.D. [address] [place] [address] Referral ID Status Reason Start Date Expiration Date Visits Requ ested Visits Authorized [id number] Closed 02/18/2017 08/17/2017 1 1 Encounter Details Date Type Department Care Team Description 03/08/2017 Office Visit Department of [facility] [place] anderson Neck (Primary Dx); Medicine, Luisa Connolly, Spasm [facility], in [place] [address] [phone] Social History Tobacco Use Types Packs/Day Years [...] Sign Reading Time Taken Comments Blood Pressure 130/60 03/08/2017 4:39 PM LOSS PREVENTION AUDITOR Pulse 68 03/08/2017 4:39 PM LOSS PREVENTION AUDITOR Temperature 36.6 ??C (97.9 ??F) 03/08/2017 4:39 PM LOSS PREVENTION AUDITOR Respiratory Rate 16 03/08/2017 4:39 PM LOSS PREVENTION AUDITOR Oxygen Saturation - - Inhaled Oxygen Concentration - - Weight 57.2 kg (125 lb 15.9 oz) 03/08/2017 4:39 PM LOSS PREVENTION AUDITOR Height 160 cm (5' 2.99) 03/08/2017 4:39 PM LOSS PREVENTION AUDITOR Body Mass Index 22.32 03/08/2017 4:39 PM LOSS PREVENTION AUDITOR documented in this encounter Progress Notes Beryl Augustine - 03/08/2017 4:15 PM CST CHIEF COMPLAINT/ REASON FOR VISIT Neck pain. HISTORY OF PRESENT ILLNESS Isadora is a 71 year old female who presents to the clinic today for neck pain. She is requesting a referral for physical therapy for her neck. Isadora has found physical therapy helpful and it is something that she would like to continue. She also goes for a massage about once a month. She denies any numbness or weakness in her arms. For about 5 years she has noticed tingling and numbness in her feet and toes. It first started with her left foot but is now in both feet. Isadora recalls needing B12 injections when she was younger. The patient denies any additional questions or concerns at this time. MEDICATIONS Post-visit Medication Reconciliation Reviewed and are as outlined in the EMR dated 03/08/2017. ALLERGIES Allergies Allergen Reactions ??? Azithromycin GI intolerance and Nausea Only Mood changes ??? Ciprofloxacin Tendonitis ??? Fluconazole Other (see comments) and Anaphylaxis ??? Latex Rash ??? Lidocaine-Epinephrine Palpitations ??? Metronidazole Tendonitis ??? Sulfa (Sulfonamide Antibiotics) Nausea Only SYSTEMS REVIEW Please see HPI for pertinent positives, otherwise rest of ROS negative. PAST MEDICAL HISTORY Past Medical History: Diagnosis Date ??? Anxiety ??? Asthma NOS ??? Diverticulosis with one episode of diverticulitis ??? Fasciitis Plantar ??? Migraine Headache ??? Osteopenia ??? Pain Neck ??? Polyp Colon Personal History ??? Tendonitis Of the right knee which she believes was secondary to Levaquin. PAST SURGICAL HISTORY Past Surgical History: Procedure Laterality Date ??? COLONOSCOPY W/ OR W/O BIOPSY 11/10/[address] Eric Cabrera who recommended repeat in 5 years. ??? LAPAROSCOPIC CHOLECYSTECTOMY N/A 2007 Laparoscopic cholecystectomy ??? LUMPECTOMY BREAST Right ??? VAGINAL DELIVERY x 3 PREVENTIVE SERVICES Tobacco use: none, former smoker. VITAL SIGNS BP 130/60 (BP Location: Left arm, Patient Position: Sitting, Cuff Size: Regular) Pulse 68 Temp 36.6 ??C (Temporal) Resp 16 Ht 160 cm Wt 57.2 kg LMP (LMP Unknown) BMI 22.32 kg/m?? PHYSICAL EXAMINATION General: Patient is in no acute distress, good hygiene and is dressed appropriately. Heart: Regular rate and rhythm without murmur. Lungs: Clear to auscultation. Musculoskeletal: Upper trapezius muscle spasm. Neuro: Alert and oriented x 3. IMPRESSION/REPORT/PLAN #1 Neck pain. Will refer to [facility] for Pt. #2 Probable neuropathy. When she returns for her physical we will evaluate further with labs including B12 level and TSH. Follow up. The patient will contact the clinic with any new or worsening symptoms. This document serves as a record of services personally performed by Luisa Ireland MD. It was created on their behalf by Beryl Augustine, a trained certified medical coding specialist. The creation of this record is based on the scribe's personal observations and the provider's statements to them. This document has been arti cked and approved by the attending provider. PREVENTION AUDITOR documented in this encounter Plan of Treatment Not on filedocumented as of this encounter Visit Diagnoses Diagnosis Pain Neck - Primary Spasm Muscle documented in this encounter Care Teams Press And Blow Machine Tender Relationship Specialty Start Date End Date Luisa Roy M.D. PCP - General 10/01/16 10/10/19 [address] [place] [phone] documented as of this encounter
--- OUTSIDE RECORDS SUMMARY | 2022-02-13 09:18 | XMS_ITS | Encounter Summary ---
:1945 Author Organization [facility] Address [address] [place] [address] Care Team Providers Name Role Phone Unavailable Primary Care Provider Unavailable Encounter Details Date Type Department Care Team Description 05/21/2014 Hospital Encounter HX NO MAPPING Isak Preciado P.A.-C. [address] [place] [address] (Wo rk) Social History Tobacco [...] of this encounter Miscellaneous Notes Miscellaneous - Conversion, Historical Provider Ser - 05/21/2014 11:59 PM LOSS PREVENTION DETECTIVE Coding Summary-Paper Based CODING DATE: 05/25/2014 FINAL [facility] STATUS: * Discharged to Home or Self Care PAYOR: Medicare Advantage ADMIT DX: REASON FOR VISIT DX: FINAL DX: PRINCIPAL: 788.1 Dysuria SECONDARY: PROCEDURES DOCTOR NAME DATE NOTE: The code number assigned matches the documented diagnosis and / or procedure in the patient's chart. However, the narrative phrase printed from the coding software may appear abbreviated, or result in slightly different terminology. Coded By: LUIS GTZ Date Saved: 05/25/2014 03:33 pm Source: [facility] POWERCHART Document Id: [id number] documented in this encounter Plan of Treatment Not on filedocumented as of this encounter Visit Diagnoses Not on filedocumented in this encounter
--- OUTSIDE RECORDS SUMMARY | 2022-02-13 09:18 | XMS_ITS | Encounter Summary ---
:1945 Author Organization [facility] Address [address] [place] [address] Care Team Providers Name Role Phone Unavailable Primary Care Provider Unavailable Encounter Details Date Type Department Care Team Description 09/17/2014 Hospital Encounter HX [facility] Etta Jamil M.D. [address] [place], [place] [address] (Wo rk) Social History [...] Sign Reading Time Taken Comments Blood Pressure 120/76 09/17/2014 4:05 PM CDT Pulse 74 09/17/2014 4:05 PM CDT Temperature - - Respiratory Rate 12 09/17/2014 4:05 PM CDT Oxygen Saturation - - Inhaled Oxygen Concentration - - Weight 56 kg (123 lb 7.3 oz) 09/17/2014 4:05 PM CDT Height 162 cm (5' 3.78) 09/17/2014 4:03 PM CDT Body Mass Index 21.34 09/17/2014 4:03 PM CDT documented in this encounter Medications [...] Progress Notes Jose G Jamil M.D. - 09/17/2014 4:32 PM CDT Clinic Progress Note Consolidated CHIEF COMPLAINT/REASON FOR VISIT possible bronchitis. ibuprofen taken at 9-10am Pt with 10 day hx of onset nonproductive cough from postnasal drip. She has exposure to 3yo grandchild in household taht has been sick as well. Two days ago she felt chilled while on an extended biking trip. The pt has a hx of allergic rhinitis but disdains use of antihistamines because they seem to make her dizzy. She was prescribed flovent in the past but does not use it as indicated for maintainence, instead using it for flareups. She claims she rarely has need to use albuterol inhaler (1-2 x a month), but over the last two days using the rescue inhaler q4 hr while awake. EXAM: HEENT: NC/AT> PERRLA. EOMI. No frontal or maxillary sinus tenderness. OP unobstructed, noted formild psotnasal drip. No tonsillar hypertrophy. NECK: supple LUNGS: BS clear throughout, no wheezes or rales. No gross prolongation of the I:E ratio CV: NSR ABD: S/NT/ND MEDICATIONS Flovent HFA 110 mcg/inh inhalation aerosol, 2 puff(s), Inhalation, 2xDay, 11 refills Imitrex 25 mg oral tablet, 25 mg, 1 tab(s), repeat after one hour if needed, PO, Once, PRN, 5 refills lorazepam 0.5 mg oral tablet, 0.5 mg, 1 tab(s), PO, Bedtime, PRN, 1 refills Misc Prescription, 1 tab, Acidphollis, PO, Daily potassium citrate, PO ProAir HFA 90 mcg/inh inhalation aerosol, 2 puff(s), Inhalation, q4hr, PRN, 11 refills triamcinolone 0.1% topical ointment, 1 lidia, Topical, 3xDay, 0 refills Tylenol, PO ALLERGIES ciprofloxacin (Tendonitis) Diflucan (blister,swelling of throat) metroNIDAZOLE (Tendonitis) sulfa drugs (nausea) PAST MEDICAL HISTORY Chronic Anxiety disorder NOS Atrophic vaginitis Diverticulitis of colon NOS Headache Migraine headache Rhinitis, Allergic Historical No historical problems PROCEDURES/SURGICAL HISTORY Colonoscopy (11/10/2012), Colonoscopy (12/08/2007), Laparoscopic cholecystectomy (2006). SOCIAL HISTORY Date Time: 09/17/2014 16:05 Tobacco: Smoking Status: No Results Found Exposure: No Results Found Alcohol: Use: No Results Found Recreational Drugs: Use: None Type: No Results Found FAMILY HISTORY Mother:Positive: CA - Breast cancer; COPD - Chronic obstructive pulmonary disease; Diabetes mellitus; Hypertension Father ( at 80 year(s)):Positive: Cancer; Hypertension Sister:Positive: Pacemaker pulse generator Brother ( at 50 year(s)):Positive: Cancer IMPRESSION/REPORT/PLAN Bronchitis Acute I've urged her to do daily use of flovent as scripted. WHile she is taking her rescue inhaler underparameters that would indicated use of oral steroids, she strongly defers and I believe its ok as her use is more reactive (and inappropriate to need) Ordered: azithromycin, 2 tablets on day 1, then 1 tablet on days 2-5, PO, As Directed, x 5 day(s), # 6 tab(s), 0 Refill(s), Acute, Pharmacy: [id number] OV Est Pt Level 3 - [address]105 - 15 min Rhinitis, Allergic SHe does not wish to use antihistamines. If she persists, or we can firmly establish taht her allergies trigger bronchospasm or even asthma, we should consider singulair at some future point. Ordered: azithromycin, 2 tablets on day 1, then 1 tablet on days 2-5, PO, As Directed, x 5 day(s), # 6 tab(s), 0 Refill(s), Acute, Pharmacy: [id number] OV Est Pt Level 3 - [address]97 - 15 min Electronically Signed By: JOSE G JAMIL MD On: 09/17/2014 04:42 PM Source: [employer] Document Id: [id number] documented in this encounter Nursing Notes Jose G Jamil M.D. - 09/17/2014 4:29 PM CDT Ambulatory Patient Education The following Patient Education Materials have been given to the patient: Patient Education Materials: Ambulatory BRONCHITIS, Abx Tx (Adult) Ambulatory Bronchitis (Adult: Abx Tx) BRONCHITIS is an infection of the air passages (bronchial tubes). It often occurs during the common cold. Symptoms include cough with mucus (phlegm) and low-grade fever. Bronchitis usually lasts 7-14 days. Mild cases can be treated with simple home remedies. More severe infection is treated with an antibiotic. Home Care: If symptoms are severe, rest at home for the first 2-3 days. When you resume activity, don't let yourself get too tired. Do not smoke. Avoid being exposed to the smoke of others. You may use acetaminophen (Tylenol) or ibuprofen (Motrin, Advil) to control fever or pain, unless another medicine was prescribed for this. [NOTE: If you have chronic liver or kidney disease or ever had a stomach ulcer or GI bleeding, talk with your doctor before using these medicines.] Your appetite may be poor, so a light diet is fine. Avoid dehydration by drinking 6-8 glasses of fluids per day (water, soft, drinks, juices, tea, soup, etc.). Extra fluids will help loosen secretions in the lungs. Yvtr-zbe-vehwcma cough medicines that contain dextromethorphan (such as Robitussin DM) and decongestants (Actifed or Sudafed) may help relieve cough and congestion. [NOTE: Do not use decongestants if you have high blood pressure.] Finish all antibiotic medicine, even if you are feeling better after only a few days. Follow Up with your doctor or as directed if you dont start to feel better after three days. [NOTE: If you are age 65 or older, or if you have chronic asthma or COPD, we recommend a PNEUMOCOCCAL VACCINATION every five years and a yearly INFLUENZAVACCINATION (FLU-SHOT) every . Ask your doctor about this. If you had an X-ray, a radiologist will review it. You will be notified of any new fi ndings that may affect your care.] Get Prompt Medical Attention if any of the following occur: ?? Fever over 100.4??F (38.0??C) for more than three days ?? Trouble breathing, wheezing or pain with breathing ?? Coughing up blood or increased amounts of colored sputum ?? Weakness, drowsiness, headache, facial pain, ear pain or a stiff neck ?? [phone] [place] [address]. All rights reserved. This information is not intended as a substitute for professional medical care. Always follow your healthcare professional's instructions. This document has images extracted. Please consider using [employer] for all your patient education needs. Source: [facility] POWERCHART Document Id: [id number] Jose G Jamil M.D. - 09/17/2014 4:28 PM CDT Ambulatory Patient Education The following Patient Education Materials have been given to the patient: Patient Education Materials: Ambulatory BRONCHITIS, Abx Tx (Adult) Ambulatory Bronchitis (Adult: Abx Tx) BRONCHITIS is an infection of the air passages (bronchial tubes). It often occurs during the common cold. Symptoms include cough with mucus (phlegm) and low-grade fever. Bronchitis usually lasts 7-14 days. Mild cases can be treated with simple home remedies. More severe infection is treated with an antibiotic. Home Care: If symptoms are severe, rest at home for the first 2-3 days. When you resume activity, don't let yourself get too tired. Do not smoke. Avoid being exposed to the smoke of others. You may use acetaminophen (Tylenol) or ibuprofen (Motrin, Advil) to control fever or pain, unless another medicine was prescribed for this. [NOTE: If you have chronic liver or kidney disease or ever had a stomach ulcer or GI bleeding, talk with your doctor before using these medicines.] Your appetite may be poor, so a light diet is fine. Avoid dehydration by drinking 6-8 glasses of fluids per day (water, soft, drinks, juices, tea, soup, etc.). Extra fluids will help loosen secretions in the lungs. Pkoo-gbq-thbjjie cough medicines that contain dextromethorphan (such as Robitussin DM) and decongestants (Actifed or Sudafed) may help relieve cough and congestion. [NOTE: Do not use decongestants if you have high blood pressure.] Finish all antibiotic medicine, even if you are feeling better after only a few days. Follow Up with your doctor or as directed if you dont start to feel better after three days. [NOTE: If you are age 65 or older, or if you have chronic asthma or COPD, we recommend a PNEUMOCOCCAL VACCINATION every five years and a yearly INFLUENZAVACCINATION (FLU-SHOT) every . Ask your doctor about this. If you had an X-ray, a radiologist will review it. You will be notified of any new fi ndings that may affect your care.] Get Prompt Medical Attention if any of the following occur: ?? Fever over 100.4??F (38.0??C) for more than three days ?? Trouble breathing, wheezing or pain with breathing ?? Coughing up blood or increased amounts of colored sputum ?? Weakness, drowsiness, headache, facial pain, ear pain or a stiff neck ?? [phone] Malathi Lemus, [address] [place] [address], [place] [address]. All rights reserved. This information is not intended as a substitute for professional medical care. Always follow your healthcare professional's instructions. This document has images extracted. Please consider using [employer] for all your patient education needs. Source: [facility] Health Data Vision Document Id: [id number] Jose G Jamil M.D. - 09/17/2014 4:28 PM CDT Ambulatory Patient Education The following Patient Education Materials have been given to the patient: Patient Education Materials: Source: [facility] Health Data [employer] Document Id: [id number] documented in this encounter Miscellaneous Notes Miscellaneous - Jose G Jamil M.D. - 09/17/2014 4:29 PM CDT Ambulatory Patient Summary [address] [id number] Visit Information Name: ISADORA BACK [facility] Number: [id number] Current Date: 09/17/2014 16:29:09 Physicians Attending Provider: JOSE G JAMIL MD Primary Care Provider: LUI ALVARADO MD [...] every 4 hours as needed for Wheezing azithromycin (azithromycin 250 mg oral tablet) 2 tablets on day 1, then 1 tablet on days 2-5, Oral, as directed x 5 day(s) [facility] [address] [place] [address] fluticasone (Flovent HFA 110 mcg/inh inhalation aerosol) [...] 1 lidia, Topical, three times a day Stop Taking the Following Medications: Medication list as of 09-17-14 16:29 Attention: If you have any medications at [...] Signed By: JOSE G JAMIL MD Signed On:17-SEP-2014 16:28:35 Your Allergies & Intolerances Substance Reaction Symptoms [...] local Clinic if further appointment detail needed. Bronchitis (Adult: Abx Tx) BRONCHITIS is an infection of the air passages (bronchial tubes). It often occurs during the common cold. Symptoms include cough with mucus (phlegm) and low-grade fever. Bronchitis usually lasts 7-14 days. Mild cases can be treated with simple home remedies. More severe infection is treated with an antibiotic. Home Care: If symptoms are severe, rest at home for the first 2-3 days. When you resume activity, don't let yourself get too tired. Do not smoke. Avoid being exposed to the smoke of others. You may use acetaminophen (Tylenol) or ibuprofen (Motrin, Advil) to control fever or pain, unless another medicine was prescribed for this. [NOTE: If you have chronic liver or kidney disease or ever had a stomach ulcer or GI bleeding, talk with your doctor before using these medicines.] Your appetite may be poor, so a light diet is fine. Avoid dehydration by drinking 6-8 glasses of fluids per day (water, soft, drinks, juices, tea, soup, etc.). Extra fluids will help loosen secretions in the lungs. Yxzj-yjw-rhhupsq cough medicines that contain dextromethorphan (such as Robitussin DM) and decongestants (Actifed or Sudafed) may help relieve cough and congestion. [NOTE: Do not use decongestants if you have high blood pressure.] Finish all antibiotic medicine, even if you are feeling better after only a few days. Follow Up with your doctor or as directed if you dont start to feel better after three days. [NOTE: If you are age 65 or older, or if you have chronic asthma or COPD, we recommend a PNEUMOCOCCAL VACCINATION every five years and a yearly INFLUENZAVACCINATION (FLU-SHOT) every . Ask your doctor about this. If you had an X-ray, a radiologist will review it. You will be notified of any new fi ndings that may affect your care.] Get Prompt Medical Attention if any of the following occur: ?? Fever over 100.4?F (38.0?C) for more than three days ?? Trouble breathing, wheezing or pain with breathing ?? Coughing up blood or increased amounts of colored sputum ?? Weakness, drowsiness, headache, facial pain, ear pain or a stiff neck ?? [phone] [facility], [address] [place] [address], [place] [address]. All rights reserved. This information is not intended as a substitute for professional medical care. Always follow your healthcare professional's instructions. Your Goals/Additional instructions: This document has images extracted. Please consider using [employer] for all your patient education needs. Source: [facility] POWERCHART Document Id: [id number] Miscellaneous - Jose G Jamil M.D. - 09/17/2014 4:29 PM CDT Ambulatory Discharge Medication List [address] [place] [id number] Visit Information Name: ISADORA BACK [facility] Number: [id number] Visit Date: 09/17/2014 16:29:08 Attending Provider: JOSE G JAMIL MD Primary Care Provider: LUI ALVARADO MD [...] every 4 hours as needed for Wheezing azithromycin (azithromycin 250 mg oral tablet) 2 tablets on day 1, then 1 tablet on days 2-5, Oral, as directed x 5 day(s) New [facility] [address] [place] [address] fluticasone (Flovent HFA 110 mcg/inh inhalation aerosol) [...] 1 lidia, Topical, three times a day Stop Taking the Following Medications: Medication list as of 09-17-14 16:29 Attention: If you have any medications at [...] Signed By: JOSE G JAMIL MD Signed On:17-SEP-2014 16:28:35 Additional Information: Source: [facility] POWERCHART Document Id: [id number] Miscellaneous - Iman Burden L.P.N. - 09/17/2014 4:05 PM CDT Adult Intellectual Property Counsel Intake/History Adult Intellectual Property Counsel Intake/History Entered On: 09/17/2014 16:08 CDT Performed On: 09/17/2014 16:05 CDT by IMAN BURDEN LPN Intake Chief Complaint : possible bronchitis. ibuprofen taken at 9-10am Temperature Core : 36.9 DegC(Converted to: 98.4 DegF) Peripheral Pulse Rate : 74 /min Respiratory Rate : 12 /min (LOW) Heart Rhythm : Regular Systolic Blood Pressure : 120 mmHg Diastolic Blood Pressure : 76 mmHg NIBP Mean : 91 mmHg BP Location : Left upper extremity Blood Pressure Cuff Size : Regular SpO2 : 99 % Oxygen Therapy : Room air Actual Weight : 56 kg(Converted to: 123 lb 7 oz) Dosing Weight Clinic : 56 kg IMAN BURDEN LPN - 09/17/2014 16:05 CDT General Info Information Given By : Patient Languages : Nauruan Is Patient Female and 13-50 no hysterectomy : No IMAN BURDEN LPN - 09/17/2014 16:05 CDT Subjective Pain Symptoms : No IMAN BURDEN LPN - 09/17/2014 16:05 CDT Dependent Habits Tobacco Use/Currently Using : No Exposure to Tobacco Smoke : Other: quit smoking at age 22 Smoking Status : Former smoker IMAN BURDEN LPN - 09/17/2014 16:05 CDT Caffeine Use Grid Caffeine Use : Current Type : Coffee, Soft drinks Frequency : Daily Amount : 4 Last Use : today IMAN BURDEN LPN - 09/17/2014 16:05 CDT Recreational Drug Use Grid Drug Use : None IMAN BURDEN LPN - 09/17/2014 16:05 CDT ID Screen Drug Resistant Organism : No Travel Within Last 21 Days : No Contact with someone with Ebola : No IMAN BURDEN LPN - 09/17/2014 16:05 CDT Source: [facility] Health Data Vision Document Id: [id number] documented in this encounter Plan of Treatment Not on filedocumented as of this encounter Visit Diagnoses Not on filedocumented in this encounter
--- OUTSIDE RECORDS SUMMARY | 2022-02-13 09:18 | XMS_ITS | Encounter Summary ---
:1945 Author Organization [facility] Address [address] [place] [address] Care Team Providers Name Role Phone Unavailable Primary Care Provider Unavailable Encounter Details Date Type Department Care Team Description 05/29/2014 Hospital Encounter HX [facility] Luisa Pearson M.D. [address], [place] [phone] (Wo rk) Social History [...] - - Height 162 cm (5' 3.78) 05/29/2014 3:23 PM DOCK HAND Body Mass Index - - documented in this encounter Medications at Time of Discharge Medication Sig Dispensed Refills Start Date End Date calcium carbonate-vitamin Chew 1 tablet. 0 2009 D3 1,250 mg (500 mg calcium)-400 unit per chewable tablet LACTOBACILLUS ACIDOPHILUS Take by mouth daily. 0 10/05/2012 (ACIDOPHILUS ORAL) multivitamin tablet Take 1 tablet by 0 06/28/2009 mouth. documented as of this encounter Plan of Treatment Not on filedocumented as of this encounter Procedures Procedure Name Priority Date/Time Associated Diagnosis Comme nts BI BREAST SCREENING Routine 05/29/2014 4:00 PM Re sults for this BILATERAL DOCK HAND procedure are i n the results section. documented in this encounter Results BI Breast Screening Bilateral (05/29/2014 4:00 PM DOCK HAND) Anatomical Region Laterality Modality Breast Bilateral Mammography Specimen (Source) Anatomical Collection Method Collection Time Re ceived Time Location / / Volume Laterality 05/29/2014 4:00 PM DOCK HAND Addenda Addendum by ProviderOneil M.D. o n 05/29/2014 4:00 PM DOCK HAND RAD^^^OW MA Mammo Screening w ??CADD 05/29/2014 16:00:00 Addendum by Oneil Lua M.D. o n 05/29/2014 3:41 PM DOCK HAND RAD^^^OW MA Mammo Screening w ??CADD 05/29/2014 15:41:13 Addendum by Oneil Lua M.D. o n 05/29/2014 4:00 PM DOCK HAND RAD^^^MA MA MAMMO SCREENING W CADD 05/29/2014 16:00:00 Addendum by Oneil Lua M.D. o n 05/29/2014 3:41 PM DOCK HAND RAD^^^MA MA MAMMO SCREENING W CADD 05/29/2014 15:41:13 Impressions 05/29/2014 4:19 PM DOCK HAND Stable negative mammogram, BIRADS 1. Yearly mammograms are recommended. MAMMOGRAPHY - GENERAL OBSERVATIONS: The reported false negative rate for mammography is 15-20%. It cannot be used, therefore, to replace the regular physical examination. A norm al or noncontributory mammogram report also should not deter t he aggressive further workup of any suspected palpable masses. Narrative 05/29/2014 4:19 PM DOCK HAND HISTORY: Screening mammogram. Technique: Bilateral digital mammograms were obtained in the CC and MLO projections. COMPARISON: 04/26/2013 and prior. FINDINGS: There has been no significant interval change. The breast parenchymal pattern remains heterogeneou sly dense for age 69 which mildly decreases mammographic sensitivit y. There is no definite evidence of a new dominant spiculated ma ss / focal asymmetry, concerning (not vascular) clustered pleo morphic microcalcifications, or de seun architectural distortion (not post-surgical scarring). There is no new skin thickening, lymphad enopathy, or nipple retraction / inversion. There are no oth er definite concerning mammogram findings. CAD was utilized. Procedure Note Arron Esteban M.D. / Provider, Tj dinero M.D. - 08/26/2016 HISTORY: Screening mammogram. Technique: Bilateral digital mammograms were obtained in the CC and MLO projections. COMPARISON: 04/26/2013 and prior. FINDINGS: There has been no significant interval change. The breast parenchymal pattern remains heterogeneou sly dense for age 69 which mildly decreases mammographic sensitivit y. There is no definite evidence of a new dominant spiculated ma ss / focal asymmetry, concerning (not vascular) clustered pleo morphic microcalcifications, or de seun architectural distortion (not post-surgical scarring). There is no new skin thickening, lymphad enopathy, or nipple retraction / inversion. There are no oth er definite concerning mammogram findings. CAD was utilized. IMPRESSION: Stable negative mammogram, B IRADS 1. Yearly mammograms are recommended. MAMMOGRAPHY - GENERAL OBSERVATIONS: The reported false negative rate for mammography is 15-20%. It cannot be used, therefore, to replace the regular physical examination. A norm al or noncontributory mammogram report also should not deter t he aggressive further workup of any suspected palpable masses. Ari Long(Aliya)(M) IMG BI PROCEDURES documented in this encounter Visit Diagnoses Not on filedocumented in this encounter
--- OUTSIDE RECORDS SUMMARY | 2022-02-13 09:18 | XMS_ITS | Encounter Summary ---
:1945 Author Organization [facility] Address [address] [place] [address] Care Team Providers Name Role Phone Unavailable Primary Care Provider Unavailable Encounter Details Date Type Department Care Team Description 08/13/2016 Hospital Encounter HX [facility] FAMILYPRA Emi Garcia, MANAGER ENVIRONMENTAL HEALTH, C.N.P. [address] [place], [place] [phone] (Wo rk) Social History [...] Sign Reading Time Taken Comments Blood Pressure 128/76 08/13/2016 3:46 PM CDT Pulse 68 08/13/2016 3:46 PM CDT Temperature - - Respiratory Rate 16 08/13/2016 3:46 PM CDT Oxygen Saturation - - Inhaled Oxygen Concentration - - Weight 56.1 kg (123 lb 12.6 oz) 08/13/2016 3:46 PM CDT Height 159 cm (5' 2.6) 08/13/2016 3:46 PM CDT Body Mass Index 22.21 08/13/2016 3:46 PM CDT documented in this encounter Medications [...] documented as of this encounter Progress Notes Emi Garcia, ORION, C.N.P. - 08/13/2016 4:02 PM CDT Clinic Full Note CHIEF COMPLAINT/REASON FOR VISIT Throat feels swollen and has white spots. Feeling alot of pressure in head. Both ears feel full. Started about a month ago. Declined Zostervax. HISTORY OF PRESENT ILLNESS Isadora states she has had sinus congestion for the past month. Throat is scratchy from postnasal drip. She has pressure in both of her ears, the right is worse. She denies fever. She has been very tired. MEDICATIONS Afrin 0.05% nasal spray, 2 spray(s), Stop after 5 days., Nostrils(Both), 2xDay cranberry oral tablet, PRN Imitrex 25 mg oral tablet, 25 mg, 1 tab(s), repeat after one hour if needed, PO, Once, PRN, 5 refills ProAir HFA 90 mcg/inh inhalation aerosol, 2 puff(s), Inhalation, q4hr, PRN, 11 refills ALLERGIES ciprofloxacin (Tendonitis) Diflucan (blister,swelling of throat) lidocaine-EPINEPHrine (heart racing) metroNIDAZOLE (Tendonitis) sulfa drugs (nausea) PAST MEDICAL HISTORY Chronic Anxiety disorder NOS Atrophic vaginitis Diverticulitis of colon NOS Headache Migraine headache Rhinitis, Allergic Historical No historical problems PROCEDURES/SURGICAL HISTORY Colonoscopy (11/10/2012), Colonoscopy (12/08/2007), Laparoscopic cholecystectomy (2006). SOCIAL HISTORY Date Time: 08/13/2016 15:46 Tobacco: Smoking Status: Former smoker Exposure: Other: quit smoking at age 22 Alcohol: Use: No Results Found Recreational Drugs: Use: None Type: No Results Found FAMILY HISTORY Mother ( at 90 year(s)):Positive: CA - Breast cancer; COPD - Chronic obstructive pulmonary disease; Diabetes mellitus; Hypertension; Macular disease Father ( at 80 year(s)):Positive: Cancer; Hypertension Sister:Positive: Coronary artery disease; Pacemaker pulse generator; Retinal detachment Brother ( at 50 year(s)):Positive: Cancer HEALTH MAINTENANCE Zostavax declined. SYSTEMS REVIEW Positive for that mentioned in the History of Present Illness and Past Medical History. All other systems were reviewed and were negative. VITAL SIGNS T: 36.6 ??C (Core) HR: 68 RR: 16 BP: 128 / 76 SpO2: 99% HT: 159 cm WT: 56.15 kg BMI: 22.21 PHYSICAL EXAMINATION GENERAL: Well-developed, well-nourished, in no acute distress. SKIN: Warm and dry. HEENT: Right ear canal impacted with cerumen. Left TM dull with serous fluid in the middle ear. Throat mild erythema. Nares congested with yellow mucus, tenderness over the maxillary sinuses. NECK: Supple. Mild anterior cervical lymphadenopathy. No thyromegaly. HEART: Regular rate and rhythm. S1, S2. No murmur. LUNGS: Clear to auscultation. No wheezes or rales. ABDOMEN: Soft, nontender. No hepatosplenomegaly. EXTREMITIES: Warm, dry. No peripheral edema. IMPRESSION/REPORT/PLAN Cerumen Impacted R Ears irrigated with warm water. Moderate amount of cerumen removed. TMs clear. Ordered: Ear Irrigation Impacted (Nurse Order) - Clinic OV Est Pt Level 4 - 51059 - 25 min Otitis Media (OM) Serous Sukhdeep Worsening, Afrin nasal spray, 2 sprays each nostril twice daily for 5 days then discontinue. Ordered: OV Est Pt Level 4 - 10586 - 25 min Sinusitis Maxillary Worsening, amoxicillin 875 mg, 1 tab, PO, 2xDay, x 10 days. Encourage fluids, acetaminophen or ibuprofen for fever and discomfort. Rest. Recheck if symptoms do not improve. Ordered: OV Est Pt Level 4 - [id number] - 25 min Orders: amoxicillin, 875 mg = 1 tab(s), PO, 2xDay, x 10 day(s), # 20 tab(s), 0 Refill(s), [id number] Electronically Signed By: EMI GARCIA APRN, CNP On: 08/13/2016 04:06 PM [facility] [employer] Document Id: [id number] documented in this encounter Nursing Notes Emi Garcia APRN, C.N.P. - 08/13/2016 4:00 PM CDT Ambulatory Patient Education The following Patient Education Materials have been given to the patient: Patient Education Materials: Ambulatory SINUSITIS, Abx Tx Ambulatory Sinusitis [Abx Tx] The sinuses are air-filled spaces within the bones of the face. They connect to the inside of the nose. Sinusitis is an inflammation of the tissue lining the sinus cavity. Sinus inflammation can occur during a cold or hay-fever (allergies to pollens and other particles in the air) and cause symptoms of sinus congestion and fullness. A sinus infection causes fever, headache and facial pain. There is usually green or yellow drainage from the nose or into the back of the throat (post-nasal drip). Antibiotics are prescribed to treat this condition. Home Care: ?? Drink plenty of water, hot tea, and other liquids to stay well hydrated. This thins the mucus andpromotes sinus drainage. ?? Apply heat to the painful areas of the face. Use a towel soaked in hot water. Or, operations intelligence superintendent the shower and direct the hot spray onto your face. This is a good way to inhale warm water vapor and get heat on your face at the same time. (Cover your mouth and nose with your hands so you can still breathe as you do this.) ?? Use a vaporizer with products such as PadProof VapoRub (contains menthol) at night. Suck on peppermint, menthol or eucalyptus hard candies during the day. ?? An expectorant containing guaifenesin (such as Robitussin), helps to thin the mucus and promote drainage from the sinuses. ?? [id number]-[id number]-[id number] decongestants may be used unless a similar medicine was prescribed. Nasal sprayswork the fastest. Use one that contains phenylephrine (Tom-synephrine, Sinex and others) or oxymetazoline (Afrin). First blow the nose gently to remove mucus, then apply the drops. Do not use these medicines more often than directed on the label or for more than three days or symptoms may worsen. You may also use tablets containing pseudoephedrine (Sudafed). Many sinus remedies combine ingredients, which may increase side effects. Read the labels or ask the pharmacist for help. NOTE: Persons with high blood pressure should not use decongestants. They can raise blood pressure. ?? Antihistamines are useful if allergies are a cause of your sinusitis. The mildest one is chlorpheniramine (available without a prescription). The dose for adults is 8-12mg three times a day. [NOTE: Do not use chlorpheniramine if you have glaucoma or if you are a man with trouble urinating due to anenlarged prostate.] Claritin (loratidine) is an antihistamine that causes less drowsiness and is a good alternative for daytime use. ?? Do not use nasal rinses or irrigation during an acute sinus infection, unless advised by your doctor. Rinsing may spread the infection to other sinuses. ?? You may use acetaminophen (Tylenol) or ibuprofen (Motrin, Advil) to control pain, unless another pain medicine was prescribed. [ NOTE: If you have chronic liver or kidney disease or ever had a stomach ulcer, talk with your doctor before using these medicines.] (Aspirin should never be used in anyone under 18 years of age who is ill with a fever. It may cause severe liver damage.) ?? Finish the full course, even if you are feeling better after a few days. Follow Up with your doctor or this facility in one week or as instructed by our staff if not improving. Get Prompt Medical Attention if any of the following occur: ?? Facial pain or headache becomes more severe ?? Stiff neck ?? Unusual drowsiness or confusion, or not acting like your normal self ?? Swelling of the forehead or eyelids ?? Vision problems including blurred or double vision ?? Fever of 100.4??F (38??C) or higher, or as directed by your healthcare provider ?? Seizure ?? [id number] [place] [address]. All rights reserved. This information is not intended as a substitute for professional medical care. Always follow your healthcare professional's instructions. This document has images extracted. Please consider using [employer] for all your patient education needs. Source: [facility] POWERCHART Document Id: [id number] documented in this encounter Miscellaneous Notes Telephone Encounter - Conversion, Historical Provider Ser - 08/31/2016 10:33 AM CDT *Phone Message/Ortho Document Contains Addenda Addendum by LUIS PALUMBO LPN on September 01, 2016 15:28:36 CDT From: LUIS PALUMBO LPN ( Orthopedic Nurse) To: JUAN VALIENTE; Sent: 09/01/2016 15:28:36 CDT Subject: FW: *Phone Message/Ortho Addendum by LUIS PALUMBO LPN on September 01, 2016 15:26:56 CDT Patient notified of message below. Patient states she is feeling much better and doesn't think she will need a cast. Call transferred to scheduling to make appointment with Dr. Zapata on 09/04/16 at9:45 am with EDWINA Martin blocked for casting. Addendum by SABINE ZAPATA MD on September 01, 2016 14:00:09 CDT From: SABINE ZAPATA MD To: Orthopedic Nurse; Sent: 09/01/2016 14:00:09 CDT Subject: RE: *Phone Message/Ortho Will need to be seen in [place]. Can double book with me Wednesday with a PA blocked to cast. Has to be this Wednesday as I'm out of town next week. Addendum by LUIS PALUMBO LPN on September 01, 2016 13:17:34 CDT From: LUIS PALUMBO LPN ( Orthopedic Nurse) To: SABINE ZAPATA MD; Sent: 09/01/2016 13:17:34 CDT Subject: FW: *Phone Message/Ortho X-rays are viewable in PACS. Please advise. Addendum by LUIS PALUMBO LPN on August 31, 2016 11:19:22 CDT From: LUIS PALUMBO LPN ( Orthopedic Nurse) To: SABINE ZAPATA MD; Sent: 08/31/2016 11:19:22 CDT Subject: FW: *Phone Message/Ortho Patient informed she needs to get a CD from [facility] and bring to [place] today for review by Dr. Zapata. Patient verbalizes understanding of instructions. Patient states she may not be able to bring images in until tomorrow. FYI message forwarded to Dr. Zapata. Addendum by SABINE ZAPATA MD on August 31, 2016 10:52:23 CDT From: SABINE ZAPATA MD To: Orthopedic Nurse; Sent: 08/31/2016 10:52:23 CDT Subject: RE: *Phone Message/Ortho I was not electronic design engineer this weekend. If she is a FB patient, then I would need her to drop off images to decide on f/up Addendum by LUIS PALUMBO LPN on August 31, 2016 10:43:42 CDT From: LUIS PALUMBO LPN ( Orthopedic Nurse) To: SABINE ZAPATA MD; Sent: 08/31/2016 10:43:42 CDT Subject: FW: *Phone Message/Ortho s- ER follow up b- Tripped and fell on steps by the [place] this weekend. Seen in the [facility] for a right distal radius fx. Told the fx is in good alignment. Placed in a splint which she removes for bathing. Was told to see the Orthopedic doctor this week. Lives in [place] and normally sees Dr. Ireland. Does not have any images or records as the ER doctor told her everything was viewable in the system. a- needs appointment r- Message forwarded to provider to review and recommend plan of care. Patient was told she may needto come in for imaging since she does not have records. From: MICHAELA CALDWELL ([address] Cubing Machine Tender) To: Orthopedic Nurse; Sent: 08/31/2016 10:33:11 CDT Subject: *Phone Message/Ortho Caller is: ( X ) Patient ( ) Mother ( ) Father ( ) Spouse ( ) Daughter ( ) Son ( ) Pharmacy ( ) Other: Physician: Patient MRN #: Reason for Call: Message: s: Patient calling for nurse b: Patient was seen over the week at the [facility], she had a fall and fractured her right wrist. She is needing to follow up with Ortho in 7-10 days. She doesn't have any images or reports,she was told that the provider seeing her would be able to get copies of those a: Callback r: Isadora at [phone] Advice/Action: Source used: ( ) Verbalizes understanding [...] back cell phone number ( ) Source: [facility] POWERCHART Document Id: [id number] Miscellaneous - Emi Garcia APRN, C.N.P. - 08/13/2016 4:00 PM CDT Ambulatory Patient Summary [address] [id number] Visit Information Name: ISADORA BACK [facility] Number: [id number] Current Date: 08/13/2016 16:00:41 Physicians Attending Provider: EMI GARCIA APRN [facility] Primary Care Provider: LUI ALVARADO MD ISADORA [...] day x 10 day(s) New Routed to [facility] [address] [place], [place] [id number] cranberry (cranberry oral tablet) as needed for Urinary discomfort Misc Prescription (Misc Prescription) 1 tab, Oral, once a day Acidphollis oxymetazoline nasal (Afrin 0.05% nasal spray) 2 [place](s), Nostrils(Both), two times a day x 5 day(s)Stop after 5 days. New SUMAtriptan (Imitrex 25 mg oral tablet) 1 Tablet(s), Oral, once as needed for Migraine headache repeat after one hour if needed Routed to [facility] [address] [place] [address] Stop Taking the Following Medications: potassium citrate (potassium citrate) Medication list as of 08-13-16 16:00 Attention: If you have any medications at home that are not on this list, DO NOT take them until youcontact your provider for clarification. Give a copy of your medication list to your primary care provider. Update your medication list any time medications or doses are changed and carry your medication list at all times in case of emergency. Electronically Signed By: EMI GARCIA APRN, CNP Signed On:13-AUG-2016 16:00:28 Your Allergies & Intolerances Substance Reaction Symptoms [...] local Clinic if further appointment detail needed. Sinusitis [Abx Tx] The sinuses are air-filled spaces within the bones of the face. They connect to the inside of the nose. Sinusitis is an inflammation of the tissue lining the sinus cavity. Sinus inflammation can occur during a cold or hay-fever (allergies to pollens and other particles in the air) and cause symptoms of sinus congestion and fullness. A sinus infection causes fever, headache and facial pain. There is usually green or yellow drainage from the nose or into the back of the throat (post-nasal drip). Antibiotics are prescribed to treat this condition. Home Care: ?? Drink plenty of water, hot tea, and other liquids to stay well hydrated. This thins the mucus andpromotes sinus drainage. ?? Apply heat to the painful areas of the face. Use a towel soaked in hot water. Or, operations intelligence superintendent the shower and direct the hot spray onto your face. This is a good way to inhale warm water vapor and get heat on your face at the same time. (Cover your mouth and nose with your hands so you can still breathe as you do this.) ?? Use a vaporizer with products such as Vicks VapoRub (contains menthol) at night. Suck on peppermint, menthol or eucalyptus hard candies during the day. ?? An expectorant containing guaifenesin (such as Robitussin), helps to thin the mucus and promote drainage from the sinuses. ?? ntxtb??Uvlr-eyl-jfsgcwm decongestants may be used unless a similar medicine was prescribed. Nasalsprays work the fastest. Use one that contains phenylephrine (Tom-synephrine, Sinex and others) or oxymetazoline (Afrin). First blow the nose gently to remove mucus, then apply the drops. Do not use these medicines more often than directed on the label or for more than three days or symptoms may worsen. You may also use tablets containing pseudoephedrine (Sudafed). Many sinus remedies combine ingredients, which may increase side effects. Read the labels or ask the pharmacist for help. NOTE: Persons with high blood pressure should not use decongestants. They can raise blood pressure. ?? Antihistamines are useful if allergies are a cause of your sinusitis. The mildest one is chlorpheniramine (available without a prescription). The dose for adults is 8-12mg three times a day. [NOTE: Do not use chlorpheniramine if you have glaucoma or if you are a man with trouble urinating due to anenlarged prostate.] Claritin (loratidine) is an antihistamine that causes less drowsiness and is a good alternative for daytime use. ?? Do not use nasal rinses or irrigation during an acute sinus infection, unless advised by your doctor. Rinsing may spread the infection to other sinuses. ?? You may use acetaminophen (Tylenol) or ibuprofen (Motrin, Advil) to control pain, unless another pain medicine was prescribed. [ NOTE: If you have chronic liver or kidney disease or ever had a stomach ulcer, talk with your doctor before using these medicines.] (Aspirin should never be used in anyone under 18 years of age who is ill with a fever. It may cause severe liver damage.) ?? Finish the full course, even if you are feeling better after a few days. Follow Up with your doctor or this facility in one week or as instructed by our staff if not improving. Get Prompt Medical Attention if any of the following occur: ?? Facial pain or headache becomes more severe ?? Stiff neck ?? Unusual drowsiness or confusion, or not acting like your normal self ?? Swelling of the forehead or eyelids ?? Vision problems including blurred or double vision ?? Fever of 100.4?F (38?C) or higher, or as directed by your healthcare provider ?? Seizure ?? [id number] [facility], [address] [place] [address], [place] [address]. All rights reserved. This information is not intended as a substitute for professional medical care. Always follow your healthcare professional's instructions. Consider Using Patient Online Services Patient Online [...] if you dont have one. Go to [email or web address] and click on Create Your Account. Then, follow the directions to complete the online form. Youll be asked for your [facility] number which you can find at the top of this document. Your Goals/Additional instructions: This document has images extracted. Please consider using [employer] for all your patient education needs. Source: [facility] POWERCHART Document Id: [id number] Miscellaneous - Emi Garcia APRN, C.N.P. - 08/13/2016 4:00 PM CDT Ambulatory Discharge Medication List [address] [id number] Visit Information Name: ISADORA BACK [facility] Number: [id number] Current Date: 08/13/2016 16:00:41 Attending Provider: EMI GARCIA APRN, CNP Primary Care Provider: LUI ALVARADO MD FRANCIS [...] day x 10 day(s) New Routed to [facility] [address] [place] [address] cranberry (cranberry oral tablet) as needed for Urinary discomfort Misc Prescription (Misc Prescription) 1 tab, Oral, once a day Acidphollis oxymetazoline nasal (Afrin 0.05% nasal spray) 2 [place](s), Nostrils(Both), two times a day x 5 day(s)Stop after 5 days. New SUMAtriptan (Imitrex 25 mg oral tablet) 1 Tablet(s), Oral, once as needed for Migraine headache repeat after one hour if needed Routed to [facility] [address] [place] [address] Stop Taking the Following Medications: potassium citrate (potassium citrate) Medication list as of 08-13-16 16:00 Attention: If you have any medications at home that are not on this list, DO NOT take them until youcontact your provider for clarification. Give a copy of your medication list to your primary care provider. Update your medication list any time medications or doses are changed and carry your medication list at all times in case of emergency. Electronically Signed By: EMI GARCIA APRN, CNP Signed On:13-AUG-2016 16:00:28 Additional Information: Source: [facility] POWERCHART Document Id: [id number] Miscellaneous - Michelle Kwong L.P.N. - 08/13/2016 3:46 PM CDT Adult Remnant Sorter Intake/History Document Has Been Updated Adult Remnant Sorter Intake/History Entered On: 08/13/2016 15:48 CDT Performed On: 08/13/2016 15:46 CDT by MICHELLE KWONG LPN Intake Chief Complaint : Throat feels swollen and has white spots. Feeling alot of pressure in head. Both ears feel full. Started about a month ago. Declined Zostervax. MICHELLE KWONG LPN - 08/13/2016 15:51 CDT Temperature Core : 36.6 DegC(Converted to: 97.9 DegF) Peripheral Pulse Rate : 68 /min Respiratory Rate : 16 /min Heart Rhythm : Regular Systolic Blood Pressure : 128 mmHg Diastolic Blood Pressure : 76 mmHg NIBP Mean : 93 mmHg BP Location : Left upper extremity Blood Pressure Cuff Size : Regular SpO2 : 99 % Oxygen Therapy : Room air Height : 159 cm(Converted to: 5 ft 3 inch(es), 63 inch(es)) Actual Weight : 56.15 kg(Converted to: 123 lb 13 oz) Weight Source : Standing scale Dosing Weight Clinic : 56.15 kg Clinic BSA : 1.57 Body Mass Index : 22.21 kg/m2 MICHELLE KWONG LPN - 08/13/2016 15:46 CDT General Info Information Given By : Patient Preferred Communication Mode : Verbal Languages : Maldivian Is Patient Female and 13-50 no hysterectomy : No MICHELLE KWONG LPN - 08/13/2016 15:46 CDT Subjective Pain Symptoms : No MICHELLE KWONG LPN - 08/13/2016 15:46 CDT Dependent Habits Exposure to Tobacco Smoke : Other: quit smoking at age 22 Smoking Status : Former smoker Tobacco 2A : Yes Tobacco Use/Currently Using : No Tobacco Use/Last 30 Days : No Tobacco Use/Last 12 months : No Tobacco Last Use/Year : 1965 MICHELLE KWONG LPN - 08/13/2016 15:46 CDT Caffeine Use Grid Caffeine Use : Current Type : Coffee, Soft drinks Frequency : Daily Amount : 1-2 cups Last Use : 11/01/15 MICHELLE KWONG LPN - 08/13/2016 15:46 CDT Recreational Drug Use Grid Drug Use : None MICHELLE KWONG LPN - 08/13/2016 15:46 CDT Source: [facility] [employer] Document Id: [id number] CDT!3 documented in this encounter Plan of Treatment Not on filedocumented as of this encounter Visit Diagnoses Not on filedocumented in this encounter
--- OUTSIDE RECORDS SUMMARY | 2022-02-13 09:18 | XMS_ITS | Encounter Summary ---
:1945 Author Organization [facility] Address [address] [place] [address] Care Team Providers Name Role Phone Unavailable Primary Care Provider Unavailable Encounter Details Date Type Department Care Team Description 11/01/2015 Hospital Encounter HX [facility] Yessica Mosquera APRN, C.N.P., M.S.N. [address] [place] [address] (Wo rk) Social History Tobacco Use Types [...] Sign Reading Time Taken Comments Blood Pressure 120/70 11/01/2015 8:06 AM CDT Pulse 62 11/01/2015 8:06 AM CDT Temperature - - Respiratory Rate 16 11/01/2015 8:06 AM CDT Oxygen Saturation - - Inhaled Oxygen Concentration - - Weight 56.1 kg (123 lb 10.9 oz) 11/01/2015 8:06 AM CDT Height 159 cm (5' 2.6) 11/01/2015 8:06 AM CDT Body Mass Index 22.19 11/01/2015 8:06 AM CDT documented in this encounter Medications at Time of Discharge Medication Sig Dispensed Refills Start Date End Date calcium carbonate-vitamin Chew 1 tablet. 0 2009 D3 1,250 mg (500 mg calcium)-400 unit per chewable tablet LACTOBACILLUS ACIDOPHILUS Take by mouth daily. 0 10/05/2012 (ACIDOPHILUS ORAL) multivitamin tablet Take 1 tablet by 0 06/28/2009 mouth. documented as of this encounter Progress Notes Yessica Mosquera APRN, SALES ACCOUNT ASSOCIATE - 11/01/2015 7:58 AM CDT [id number] CHIEF COMPLAINT/REASON FOR VISIT Vaginal pain. HISTORY OF PRESENT ILLNESS A very pleasant 70-year-old female presents with vaginal pain and swelling. The patient states she has had a recurrent problem for this in the past. States that she usually has to take antibiotics and then apply a topical steroid cream. 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 She is out of her triamcinolone cream. The patientstates that she does not want a vaginal exam with speculum today due to pain. She denies any other complaints at this time. No recent illnesses. No fevers, chills, headache, neck pain, chest pain, shortness of breath, abdominal pain, nausea, vomiting or diarrhea. The patient is not sexually active. The patient does see a homeopath for other healthcare problems but has not seen them for this problem. MEDICATIONS Reviewed today. See EMR medication list. ALLERGIES Reviewed today. See EMR allergy list. SYSTEMS REVIEW Negative except for pertinent positives in HPI. PAST MEDICAL/SURGICAL HISTORY Reviewed today. See EMR history and procedures. SOCIAL HISTORY Reviewed today. No changes. FAMILY HISTORY Reviewed today. No changes. VITAL SIGNS Refer to EMR vital signs flow sheet. PHYSICAL EXAMINATION GENERAL: Well appearing. No distress. HEENT: Ears: Bilateral TMs and canals without erythema edema or exudate. Positive light reflex bilaterally. No pain over bilateral tragi. Nose: Bilateral nasal turbinates 2+, pink and moist. Oropharynx: Without injection, erythema, edema or exudate. Tongue moist. NECK: Supple. Trachea midline. No lymphadenopathy. CARDIAC: Regular rate and rhythm. Normal S1, S2. No murmurs, rubs, or clicks. LUNGS: Lungs clear without wheezing, rhonchi, or rales. ABDOMEN: Soft. No tenderness on palpation. Normoactive bowel sounds. GENITALIA: Internal exam not performed today but external genitalia with severe erythema, edema, small amount of skin breakdown in the perianal area. IMPRESSION/REPORT/PLAN Vaginitis, atrophic. Triamcinolone cream refilled. Azithromycin prescribed. However, patient will wait to see if topical remedies work first before taking the antibiotic. Clotrimazole cream prescribed.Strongly encouraged patient to follow up in 1 week for reevaluation to ensure that treatment is working. The patient agreeable to plan and patient will follow up as discussed. Doris Cadena -C./rolando Electronically Signed By: YESSICA MOSQUERA CNP On: 11/23/2015 05:17 PM Source: [facility] Document Id: [id number] documented in this encounter Miscellaneous Notes Miscellaneous - Marco Hernandez L.P.N. - 11/01/2015 8:06 AM CDT Adult Neuroscience Specialist Intake/History Adult Neuroscience Specialist Intake/History Entered On: 11/01/2015 8:07 CDT Performed On: 11/01/2015 8:06 CDT by MARCO HERNANDEZ LPN Intake Chief Complaint : vaginal infection states one month, denies pain although states urine will touch the irritated skin and burn. Onset of Symptoms : month Temperature Core : 36.9 DegC(Converted to: 98.4 DegF) Peripheral Pulse Rate : 62 /min Respiratory Rate : 16 /min Systolic Blood Pressure : 120 mmHg Diastolic Blood Pressure : 70 mmHg NIBP Mean : 87 mmHg BP Location : Right upper extremity Blood Pressure Cuff Size : Large Height : 159 cm(Converted to: 5 ft 3 inch(es), 63 inch(es)) Actual Weight : 56.1 kg(Converted to: 123 lb 11 oz) Weight Source : Standing scale Dosing Weight Clinic : 56.1 kg Clinic BSA : 1.57 Body Mass Index : 22.19 kg/m2 MARCO HERNANDEZ LPN - 11/01/2015 8:06 CDT General Info Information Given By : Patient Preferred Communication Mode : Verbal Languages : Malian Is Patient Female and 13-50 no hysterectomy : No MARCO HERNANDEZ LPN - 11/01/2015 8:06 CDT Subjective Pain Symptoms : No MARCO HERNANDEZ LPN - 11/01/2015 8:06 CDT Dependent Habits Exposure to Tobacco Smoke : Other: quit smoking at age 22 Smoking Status : Former smoker Tobacco 2A : Yes Tobacco Use/Currently Using : No Tobacco Use/Last 30 Days : No Tobacco Use/Last 12 months : No Tobacco Last Use/Year : 1967 Alcohol Use : Yes MARCO HERNANDEZ LPN - 11/01/2015 8:06 CDT Caffeine Use Grid Caffeine Use : Current Type : Coffee, Soft drinks Frequency : Daily Amount : 1-2 cups Last Use : 11/01/15 MARCO HERNANDEZ LPN - 11/01/2015 8:06 CDT Recreational Drug Use Grid Drug Use : None MARCO HERNANDEZ LPN - 11/01/2015 8:06 CDT [facility] Document Id: [id number] CDT!44 documented in this encounter Plan of Treatment Not on filedocumented as of this encounter Visit Diagnoses Not on filedocumented in this encounter
--- OUTSIDE RECORDS SUMMARY | 2022-02-13 09:18 | XMS_ITS | Encounter Summary ---
:1945 Author Organization [facility] Address [address] [place] [address] Care Team Providers Name Role Phone Unavailable Primary Care Provider Unavailable Encounter Details Date Type Department Care Team Description 05/30/[address] [facility] FAMILYPRA Lui Crockett i, M.D. [address] [place] [address] (Wo rk) Social History Tobacco [...] Sign Reading Time Taken Comments Blood Pressure 118/62 05/30/2015 10:14 AM PHARMACY TECHNICIAN PROGRAM DIRECTOR Pulse 64 05/30/2015 10:14 AM PHARMACY TECHNICIAN PROGRAM DIRECTOR Temperature - - Respiratory Rate 16 05/30/2015 10:14 AM PHARMACY TECHNICIAN PROGRAM DIRECTOR Oxygen Saturation - - Inhaled Oxygen Concentration - - Weight 55 kg (121 lb 4.1 oz) 05/30/2015 10:14 AM PHARMACY TECHNICIAN PROGRAM DIRECTOR Height 159 cm (5' 2.6) 05/30/2015 10:14 AM PHARMACY TECHNICIAN PROGRAM DIRECTOR Body Mass Index 21.76 05/30/2015 10:14 AM PHARMACY TECHNICIAN PROGRAM DIRECTOR documented in this encounter Medications at Time [...] encounter H&P Notes Lui Whitten M.D. - 05/30/2015 10:03 AM CST [id number] CHIEF COMPLAINT/ REASON FOR VISIT Review medications, review medical concerns, update preventive services. MEDICATIONS Post-visit Medication Reconciliation 1. Flovent HFA 110 mcg/inh inhalation aerosol, 1 puff, b.i.d. 2. Lorazepam 0.5mg, 1 tablet, PO, at bedtime, PRN for anxiety. 3. ProAir HFA 90mcg/inh inhalation aerosol, 2 puffs, q4hr, PRN for wheezing. 4. Tylenol, PO. 5. Imitrex 25 mg, 1 tablet, PO, once PRN for migraine headache, repeat after one hour if needed, renewed today. 6. Acidophilus, 1 tablet, PO, daily. 7. Potassium citrate, PO. ALLERGIES Diflucan-blister, swelling of throat. Sulfa drugs-nausea. Ciprofloxacin-tendonitis. Metronidazole-tendonitis. SYSTEMS REVIEW Isadora is a 70 year old female who presents to the clinic for an annual exam. She has occasional knee pain and takes Tylenol or uses an Arnica gel to help with this. Isadora had a fall in March and continues to have a bruise on the front of her left leg. She is having migraine headaches infrequently and they are easily treated with Imitrex. She otherwise has no complaints. No headaches, numbness or tingling. No changes in vision or hearing. No sore throat, runny nose, earache or cough. No shortness of breath or chest pain. No abdominal pain or change in bowel habits. No hematuria or dysuria. No vaginal discharge or dyspareunia. No lymph node swelling. No easy bruising [...] Tobacco use: none, former smoker. Mammogram: 05/30/2015. Lipid panel: 04/14/2013. Colonoscopy: 11/10/2012, 5 year followup recommended. Tetanus booster: 04/03/2013. Influenza: 03/07/2014, declined the influenza vaccine for this season. Bone density: 04/25/2012. Pneumovax 13: 05/29/2014. Pneumococcal 23: 04/08/2012. SOCIAL HISTORY She continues to care for grandchildren. 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 FAMILY HISTORY Mother is and had breast cancer in her 60s and also had COPD, diabetes, hypertension, and macular degeneration; she when she was 90 of organ failure. Father at age 80 of laryngeal cancer. He also had hypertension. Sister, Ivon has coronary artery disease. Brother at age50 of laryngeal cancer. VITAL SIGNS HEIGHT: 159 cm. WEIGHT: 55 kg. BMI: 21.76 kg/m2. TEMP: 36.5 Deg C. PULSE: 64 /min. RESP: 16 /min. SYSTOLIC: 118 mmHg. DIASTOLIC: 62 mmHg. PHYSICAL EXAMINATION GENERAL: Patient is alert [...] uterus and adnexa. EXTREMITIES: Within normal limits. Large area resolving bruising of the left ruvalcaba still with some fluctuance. MENTAL STATUS: PHQ9 score of 0. IMPRESSION/REPORT/PLAN 1. Health care maintenance. She is encouraged to achieve and maintain healthy body weight through diet and exercise. She is reminded of the need for monthly self-breast exam, yearly eye and regular dental visits. Mammogram will be updated today. She declines a flu shot. She will be due for a colonoscopy in 2018. 2. Arthritic aches and pains. She finds that physical therapy has been helpful in the past and wouldlike to have a referral on file for when she decides she is ready to schedule an appointment; [facility]. 3. Migraine headaches. Prescription for Imitrex 25 mg was renewed today, as above. 4. Follow up. The patient will contact the clinic with any new or worsening symptoms. This document serves as a record of services personally performed by Lui Ireland MD. It was created on their behalf by Beryl Augustine, a trained chief medical technologist. The creation of this record is based on the scribe's personal observations and the provider's statements to them. This document has been arti cked and approved by the attending provider. Lui Ty M.D./evan Electronically Signed By: LUI WHITTEN MD On: 05/30/2015 09:16 PM Source: [facility]SDOLBE[facility] Document Id: [id number] MACY TECHNICIAN PROGRAM DIRECTOR documented in this encounter Nursing Notes Loyda Lee L.P.N. - 05/30/2015 12:31 PM CST script quantity gave Ketty/pharmacist verbal order for sumatriptan quantity of [address] CARRILLO Electronically Signed By: LOYDA LEE LPN On: 05/30/2015 12:32 PM Source: [facility] POWERCHART Document Id: [id number] MACY TECHNICIAN PROGRAM DIRECTOR documented in this encounter Miscellaneous Notes Miscellaneous - Lui Whitten M.D. - 05/30/2015 10:48 PM PHARMACY TECHNICIAN PROGRAM DIRECTOR Ambulatory Patient Summary [address] [id number] Visit Information Name: FRANCIS ISADORA NIX [facility] Number: [id number] Current Date: 05/30/2015 22:48:43 Physicians Attending Provider: LUI WHITTEN MD Primary Care Provider: LUI WHITTEN MD ISADORA BACK has been given the [...] the Following Medications: Medication list as of 05-30-15 22:48 Attention: If you have any medications at home that are not on this list, DO NOT take them until youcontact your provider for clarification. Give a copy of your medication list to your primary care provider. Update your medication list any time medications or doses are changed and carry your medication list at all times in case of emergency. Electronically Signed By: LUI WHITTEN MD Signed On:30-MAY-2015 22:48:37 Your Allergies & Intolerances Substance Reaction Symptoms [...] if you dont have one. Go to [email or web address] and click on Create Your Account. Then, follow the directions to complete the online form. Youll be asked for your [facility] number which you can find at the top of this document. Your Goals/Additional instructions: Source: [facility] POWER[facility]ART Document Id: [id number] MACY TECHNICIAN PROGRAM DIRECTOR Miscellaneous - Lui Whitten M.D. - 05/30/2015 10:48 PM PHARMACY TECHNICIAN PROGRAM DIRECTOR Ambulatory Discharge Medication List [address] [id number] Visit Information Name: ISADORA BACK [facility] Number: [id number] Visit Date: 05/30/2015 22:48:41 Attending Provider: LUI WHITTEN MD Primary Care Provider: LUI WHITTEN MD ISADORA ABCK has been given the following list of [...] the Following Medications: Medication list as of 05-30-15 22:48 Attention: If you have any medications at home that are not on this list, DO NOT take them until youcontact your provider for clarification. Give a copy of your medication list to your primary care provider. Update your medication list any time medications or doses are changed and carry your medication list at all times in case of emergency. Electronically Signed By: LUI WHITTEN MD Signed On:30-MAY-2015 22:48:37 Additional Information: Source: [facility] Trov Document Id: [id number] MACY TECHNICIAN PROGRAM DIRECTOR Miscellaneous - Perfecto Mas C.M.A. - 05/30/2015 10:18 AM CST PHQ-9 PHQ-9 Entered On: 05/30/2015 10:18 PHARMACY TECHNICIAN PROGRAM DIRECTOR Performed On: 05/30/2015 10:18 PHARMACY TECHNICIAN PROGRAM DIRECTOR by PERFECTO MAS [facility] PHQ-9 Little interest or pleasure in doing [...] at all PHQ-9 Calculated Score : 0 PERFECTO MAS [facility] - 05/30/2015 10:18 PHARMACY TECHNICIAN PROGRAM DIRECTOR Source: [facility] Trov Document Id: [id number] PHARMACY TECHNICIAN PROGRAM DIRECTOR!12 MACY TECHNICIAN PROGRAM DIRECTOR Luzcellaneous - Perfecto Mas C.MRobert - 05/30/2015 10:14 AM CST Adult Sleep Technician Intake/History Adult Sleep Technician Intake/History Entered On: 05/30/2015 10:17 PHARMACY TECHNICIAN PROGRAM DIRECTOR Performed On: 05/30/2015 10:14 PHARMACY TECHNICIAN PROGRAM DIRECTOR by PERFECTO MAS [facility] Intake Chief Complaint : Physical Temperature Core : 36.5 DegC(Converted to: 97.7 DegF) Peripheral Pulse Rate : 64 /min Respiratory Rate : 16 /min Heart Rhythm : Regular Systolic Blood Pressure : 118 mmHg Diastolic Blood Pressure : 62 mmHg NIBP Mean : 81 mmHg BP Location : Right upper extremity Blood Pressure Cuff Size : Regular Height : 159 cm(Converted to: 5 ft 3 inch(es), 63 inch(es)) Actual Weight : 55 kg(Converted to: 121 lb 4 oz) Weight Source : Standing scale Dosing Weight Clinic : 55 kg Clinic BSA : 1.56 Body Mass Index : 21.76 kg/m2 PERFECTO MAS [facility] - 05/30/2015 10:14 PHARMACY TECHNICIAN PROGRAM DIRECTOR General Info Information Given By : Patient Preferred Communication Mode : Verbal Languages : Icelandic Is Patient Female and 13-50 no hysterectomy : No PERFECTO MAS [facility] - 05/30/2015 10:14 PHARMACY TECHNICIAN PROGRAM DIRECTOR Subjective Pain Symptoms : No PERFECTO MAS [facility] 05/30/2015 10:14 PHARMACY TECHNICIAN PROGRAM DIRECTOR Dependent Habits Exposure to Tobacco Smoke : Other: quit smoking at age 22 Smoking Status : Former smoker Tobacco 2A : Yes Tobacco Use/Currently Using : No Tobacco Use/Last 30 Days : No Tobacco Use/Last 12 months : No PERFECTO MAS [facility] - 05/30/2015 10:14 PHARMACY TECHNICIAN PROGRAM DIRECTOR Caffeine Use Grid Caffeine Use : Current Type : Coffee, Soft drinks Frequency : Daily Amount : 4 Last Use : today PERFECTO MAS [facility] - 05/30/2015 10:14 PHARMACY TECHNICIAN PROGRAM DIRECTOR Recreational Drug Use Grid Drug Use : None PERFECTO MAS [facility] 05/30/2015 10:14 PHARMACY TECHNICIAN PROGRAM DIRECTOR Source: [facility]OWER[facility] Document Id: [id number] PHARMACY TECHNICIAN PROGRAM DIRECTOR!42 MACY TECHNICIAN PROGRAM DIRECTOR documented in this encounter Plan of Treatment Not on filedocumented as of this encounter Visit Diagnoses Not on filedocumented in this encounter
--- OUTSIDE RECORDS SUMMARY | 2022-02-13 09:18 | XMS_ITS | Encounter Summary ---
:1945 Author Organization [facility] Address [address] [place] [address] Care Team Providers Name Role Phone Luisa Roy M.D. Primary Care Provider [phone] Encounter Details Date Type Department Care Team Description 03/15/2017 [facility] Only [facility], [facility], [address] [place] [address] [place] [address] [place] [address] Social History Tobacco Use Types Packs/Day [...] on filedocumented in this encounter Care Teams Seafood Harvester Relationship Specialty Start Date End Date Luisa Roy M.D. PCP - General 10/01/16 10/10/[address] [address] documented as of this encounter
--- OUTSIDE RECORDS SUMMARY | 2022-02-13 09:18 | XMS_ITS | Encounter Summary ---
:1945 Author Organization [facility] Address [address] [place] [address] Care Team Providers Name Role Phone Luisa Roy M.D. Primary Care Provider [phone] Encounter Details Date Type Department Care Team Description 02/22/2017 Abstract Department of Family Medicine, Provider, Historical [facility], in [place], [place] [address] [place] [address] [facility] [phone] Social History Tobacco Use Types Packs/Day Years [...] on filedocumented in this encounter Care Teams Patternmaker [employer] Relationship Specialty Start Date End Date Luisa Roy M.D. PCP - General 10/01/16 10/10/[address] [address] documented as of this encounter
--- OUTSIDE RECORDS SUMMARY | 2022-02-13 09:18 | XMS_ITS | Encounter Summary ---
:1945 Author Organization [facility] Address [address] [place] [address] Care Team Providers Name Role Phone Lui Roy M.D. Primary Care Provider [phone] Encounter Details Date Type Department Care Team Description 10/09/2016 Hospital Encounter HX [facility] Matt Agosto P.AElda-CElda [address] [place], [place] [phone] (Wo rk) Social History [...] Taken Comments Blood Pressure - - Pulse 61 10/09/2016 10:23 AM CDT Temperature - - Respiratory Rate 16 10/09/2016 10:23 AM CDT Oxygen Saturation - - Inhaled Oxygen Concentration - - Weight 55.5 kg (122 lb 5.7 oz) 10/09/2016 10:23 AM CDT Height 159 cm (5' 2.6) 10/09/2016 10:23 AM CDT Body Mass Index 21.95 10/09/2016 10:23 AM CDT documented in this encounter Medications [...] documented as of this encounter Progress Notes Matt Vargas - 10/09/2016 9:49 AM CDT [id number] PRIMARY CARE PROVIDER Lui Ireland MD CHIEF COMPLAINT/REASON FOR VISIT Recheck of a right distal radius fracture. HISTORY OF PRESENT ILLNESS Isadora is a pleasant 71-year-old female who presents today for recheck of a right distal radius fracture. She is 5 weeks out from injury. She was previously seen by Dr. Richards on 09/04/2016 and at that time was placed into an Exos removable short arm forearm brace. The patient reports that she stopped wearing that brace approximately a week ago. She said the proximal edge of it was rubbing on to herarm and was uncomfortable. She has been occasionally wearing a different type of brace that she has.She is not seeing much for pain. She states that her swelling is completely gone. She has no issues or complaints at this time. PHYSICAL EXAMINATION GENERAL: A well-nourished, well-developed, elderly female. She is alert and oriented x3. No acute distress. She is cooperative and responds appropriately to all questions. MUSCULOSKELETAL: Examination of the right forearm reveals no pain with palpation. She demonstrates full range of motion of the elbow, wrist and fingers. She is neurovascularly intact distally. Capillary refill less than 2 seconds. DIAGNOSTICS X-rays of the right wrist were obtained. These show a skeletally mature individual with a healing distal radius fracture. There has been mild shortening and dorsal tilt since previous x-rays but alignment is acceptable. No other acute osseous injuries. IMPRESSION/REPORT/PLAN Five weeks status post right distal radius fracture. PLAN: Isadora is doing well. At this point, she can wean herself out of the splint as she has already done. She can use the splint as she needs for more active activities. I will plan on following up withher on an as-needed basis. She states that she will have Demetra Wheat work on massage for her forearm probably in about a month. All questions were answered to patient's satisfaction. Total time of visit 15 minutes, 10 minutes spent on counseling and coordination of care. Matt Vargas P.A.-C./rolando cc: Jacquelyn Pena in [address] [place] [address]. [place] [address] Electronically Signed By: MATT VARGAS PA On: 10/12/2016 01:13 PM Source: [facility] Document Id: [id number] documented in this encounter Miscellaneous Notes Miscellaneous - Matt Vargas - 10/09/2016 11:46 AM CDT Ambulatory Patient Summary [facility] [address] [facility] [place] [place] [id number] Visit Information Name: ISADORA BACK [facility] Number: [id number] Current Date: 10/09/2016 11:46:26 Physicians Attending Provider: MATT VARGAS Primary Care Provider: LUI ALVARADO MD ISADORA [...] the Following Medications: Medication list as of 10-09-16 11:46 Attention: If you have any medications at home that are not on this list, DO NOT take them until youcontact your provider for clarification. Give a copy of your medication list to your primary care provider. Update your medication list any time medications or doses are changed and carry your medication list at all times in case of emergency. Electronically Signed By: MATT VARGAS Signed On:09-OCT-2016 11:46:11 Your Allergies & Intolerances Substance Reaction Symptoms [...] you dont have one. Go to [email or web address] and click on Create Your Account. Then, follow the directions to complete the online form. Youll be asked for your [facility] number which you can find at the top of this document. Your Goals/Additional instructions: Source: [facility] POWERCHART Document Id: [id number] Miscellaneous - Matt Vargas - 10/09/2016 11:46 AM CDT Ambulatory Discharge Medication List [facility] [address] [place] [id number] Visit Information Name: ISADORA BACK [facility] Number: [id number] Current Date: 10/09/2016 11:46:25 Attending Provider: MATT VARGAS Primary Care Provider: LUI ALVARADO MD ISADORA [...] the Following Medications: Medication list as of 10-09-16 11:46 Attention: If you have any medications at home that are not on this list, DO NOT take them until youcontact your provider for clarification. Give a copy of your medication list to your primary care provider. Update your medication list any time medications or doses are changed and carry your medication list at all times in case of emergency. Electronically Signed By: MATT VARGAS PA Signed On:09-OCT-2016 11:46:11 Additional Information: Source: [facility] POWERCHART Document Id: [id number] Miscellaneous - Yessica Downing L.P.N. - 10/09/2016 10:23 AM CDT Adult Grinder Set Up Operator Gear Tool Intake/History Adult Grinder Set Up Operator Gear Tool Intake/History Entered On: 10/09/2016 10:26 CDT Performed On: 10/09/2016 10:23 CDT by YESSICA DOWNING LPN Intake Chief Complaint : lv 09/04/16. Right DRF. Stopped wearing brace last wek. Peripheral Pulse Rate : 61 /min Respiratory Rate : 16 /min Height : 159 cm(Converted to: 5 ft 3 inch(es), 63 inch(es)) Actual Weight : 55.5 kg(Converted to: 122 lb 6 oz) Dosing Weight Clinic : 55.5 kg Clinic BSA : 1.57 Body Mass Index : 21.95 kg/m2 YESSICA DOWNING LPN - 10/09/2016 10:23 CDT General Info Information Given By : Patient Languages : Turkish Is Patient Female and 13-50 no hysterectomy : No YESSICA DOWNING LPN - 10/09/2016 10:23 CDT Subjective Pain Symptoms : Yes YESSICA DOWNING LPN - 10/09/2016 10:23 CDT Pain Scale Pain Scale Verbal 0-10 : Open YESSICA DOWNING LPN - 10/09/2016 10:23 CDT Pain Pain Assessment Grid Pain 1 Location : Wrist Laterality : Right YESSICA DOWNING LPN - 10/09/2016 10:23 CDT Dependent Habits Exposure to Tobacco Smoke : Other: quit smoking at age 22 Smoking Status : Former smoker Tobacco 2A : Yes Tobacco Use/Currently Using : No Tobacco Use/Last 30 Days : No Tobacco Use/Last 12 months : No Tobacco Last Use/Year : 1965 YESSICA DOWNING DOLPHIN TRAINER - 10/09/2016 10:23 CDT Caffeine Use Grid Caffeine Use : Current Type : Coffee, Soft drinks Frequency : Daily Amount : 1-2 cups Last Use : 11/01/15 YESSICA DOWNING DOLPHIN TRAINER - 10/09/2016 10:23 CDT Recreational Drug Use Grid Drug Use : None YESSICA DOWNING DOLPHIN TRAINER - 10/09/2016 10:23 CDT Source: [facility] Document Id: [id number] CDT!41 documented in this encounter Plan of Treatment Not on filedocumented as of this encounter Procedures Procedure Name Priority Date/Time Associated Diagnosis Comme nts DX WRIST RIGHT 3+ Routine 10/09/2016 9:57 AM Resu lts for this VIEWS CDT procedure are i n the results section. documented in this encounter Results DX Wrist Right 3+ Views (10/09/2016 9:57 AM CDT) Anatomical Region Laterality Modality Upper Extremity, Wrist Right Radiographic Imag ing Specimen (Source) Anatomical Collection Method Collection Time Re ceived Time Location / / Volume Laterality 10/09/2016 9:57 AM CDT Addenda Addendum by Provider, Jacquelyn Riggs 10/09/2016 9:57 AM CDT RAD^^^OW XR Wrist Right 3 or more views 10/09/2016 09:57:57 Impressions 10/09/2016 10:25 AM CDT ??Please see above dictation. Narrative 10/09/2016 10:25 AM CDT EXAM: ??XR Wrist Right 3 or more views INDICATION: ??recheck right distal radiu s fx COMPARISON: ??None. ?? FINDINGS: ??Skeletally mature individual with a healing distal radius fracture. There has been mild shortening and dorsal tilt since previous x-rays but alignment is accepta ble. No other acute osseous injuries. Procedure Note Mauricio Richards M.D. / Provider, His norberto M.D. - 10/23/2016 EXAM: XR Wrist Right 3 or more views INDICATION: recheck right distal radius fx COMPARISON: None. FINDINGS: Skeletally mature individual w ith a healing distal radius fracture. There has been mild shortening and dorsal tilt since previous x-rays but alignment is accepta ble. No other acute osseous injuries. IMPRESSION: Please see above dictation. Erin Long(R)(CT), Mercedes(R) IMG DIAGNOSTIC IMAGING PROCEDURES documented in this encounter Visit Diagnoses Not on filedocumented in this encounter Care Teams Servicenow Administrator Developer Relationship Specialty Start Date End Date Lui Roy M.D. PCP - General 10/01/16 10/10/19 [address] [place] [phone] documented as of this encounter
--- OUTSIDE RECORDS SUMMARY | 2022-02-13 09:19 | XMS_ITS | Encounter Summary ---
:1945 Author Organization [facility] Address [address] [place] [address] Care Team Providers Name Role Phone Unavailable Primary Care Provider Unavailable Encounter Details Date Type Department Care Team Description 07/11/2013 Hospital Encounter HX [facility] Oc Barnett, DOOR FURRING INSTALLER, C.N.P. 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 - 07/11/2013 12:44 PM CDT [id number] CHIEF COMPLAINT/REASON FOR VISIT Vaginitis. HISTORY OF PRESENT ILLNESS Isadora is a 68-year-old para 3-0-0-3, female whom I last saw in the department of obstetrics and gynecology on February 16, 2013, please review my note from that date for her complete history. Isadora presents today with continued symptoms of a recurrent vaginal infection. 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 She notes that herhusband has been having issues with recurrent bladder infections as well and has been seen by a urologist with the initial episode of the Ureaplasma diagnosis. Both she and her were treated at that time, but she is concerned that they are continuing to pass it back and forth as he continues tohave issues. She notes that about a month ago, she was in with a bronchial infection, was treated with amoxicillin, and when she took the amoxicillin, it did improve her vaginal symptoms. She is wondering if that would maybe be a better antibiotic as she cannot tolerate the doxycycline. She did take the azithromycin for her last infection, and that did work well, but unfortunately the symptoms did return. At this point, she is thinking that she needs to be taking her antibiotics for a longer period of time to completely wipe out the infection, which is not uncommon with Ureaplasma. She also notes that she has been seeing a homeopathist in [place] for some of her symptoms and trying to improve the natural environment in the vagina with acidophilus to try to prevent infections. She has used somePremarin cream in the past, but every time she inserts the Premarin cream, she gets a yeast infection. MEDICATIONS 1. Azithromycin. 2. Imitrex. 3. Lorazepam. 4. Acidophilus. 5. Potassium citrate. 6. ProAir HFA. 7. Tylenol. ALLERGIES 1. Ciprofloxacin. Reaction: Tendinitis. 2. Diflucan. Reaction: Blister and swelling of the throat. 3. Metronidazole. Reaction: Tendinitis. 4. Sulfa drugs. Reaction: Nausea. VITAL SIGNS Heart rate 63. Blood pressure 122/72. Weight 56.6. Tobacco use: No. PHYSICAL EXAMINATION Not performed today. IMPRESSION/REPORT/PLAN Vaginitis. At this point, Isadora declined exam and reculture for Ureaplasma because she is convinced that she is having a recurrent infection of her Ureaplasma. She is requesting longer treatment this time around. Therefore, a Z- Jasno was provided x2 Z-Paks. She will take a Z-Jason for 5 days, and then 10 days later, she will start the 2nd one. She will call me if her symptoms do not improve or resolve, and if that is not working, we would consider trying the amoxicillin as that did improve her symptoms previously. Prescription for azithromycin was faxed to [facility], per request. She will call me roberto further followup is needed. Oc Zafar CNP/rolando Electronically Signed By: OC ZAFAR RN, CNP On: 07/12/2013 12:33 PM Source: [facility] MHSDOLBEYNONRADSYS Document Id: [id number] documented in this encounter Miscellaneous Notes Miscellaneous - Oc Zafar APRN, C.N.P. - 07/11/2013 1:31 PM CDT Ambulatory Patient Summary [facility] [address] [place] [id number] Visit Information Name: ISADORA BACK [facility] Number: [id number] Current Date: 07/11/2013 13:31:50 Physicians Attending Provider: OC ZAFAR RN [facility] Primary Care Provider: LUI GAUTHIER MD ISADORA [...] 4 hours as needed for Wheezing azithromycin (Azithromycin 3 Day Dose Pack 500 mg oral tablet) 1 Tablet(s), Oral, once a day x 5 day(s) Take two tablets on day 1, and 1 tablet daily after that. [place] [address] [place] [address] [place] [address] LORazepam (lorazepam 0.5 mg oral tablet) 1 Tablet(s), Oral, three times a day as needed for Anxiety Misc Prescription (Misc Prescription) 1 tab, Oral, once a day Acidphollis potassium citrate (potassium citrate) Oral SUMAtriptan (Imitrex 25 mg oral tablet) 1 Tablet(s), Oral, once as needed for Migraine headache repeat after one hour if needed Stop Taking the Following Medications: Medication list as of 07-11-13 13:31 Attention: If you have any medications at home that are not on this list, DO NOT take them until youcontact your provider for clarification. Give a copy of your medication list to your primary care provider. Update your medication list any time medications or doses are changed and carry your medication list at all times in case of emergency. Your Allergies & Intolerances Substance Reaction Symptoms Category Comments ciprofloxacin Tendonitis Drug sulfa drugs Drug Diflucan blister Drug Diflucan swelling of throat Drug metroNIDAZOLE Tendonitis Drug Your Problem List Problem Status Onset Comments Migraine headache Active Rhinitis, Allergic Active Diverticulitis of colon NOS Active Atrophic vaginitis Active Headache Active 02/24/2013 Anxiety disorder NOS Active Your Upcoming Appointments Date Time Location Reason Provider No Appointments found Attention: Contact your local Clinic if further appointment detail needed. Your Goals/Additional instructions: Source: [facility] POWERCHART Document Id: [id number] Miscellaneous - Oc Zafar APRN, C.N.P. - 07/11/2013 1:31 PM CDT Ambulatory Discharge Medication List [address] [id number] Visit Information Name: ISADORA BACK [facility] Number: [id number] Visit Date: 07/11/2013 13:31:49 Attending Provider: OC ZAFAR RN BILL CHECKER Primary Care Provider: LUI GAUTHIER MD ISADORA [...] 4 hours as needed for Wheezing azithromycin (Azithromycin 3 Day Dose Pack 500 mg oral tablet) 1 Tablet(s), Oral, once a day x 5 day(s) Take two tablets on day 1, and 1 tablet daily after that. New Routed to [address] [address] LORazepam (lorazepam 0.5 mg oral tablet) 1 Tablet(s), Oral, three times a day as needed for Anxiety Misc Prescription (Misc Prescription) 1 tab, Oral, once a day Acidphollis potassium citrate (potassium citrate) Oral SUMAtriptan (Imitrex 25 mg oral tablet) 1 Tablet(s), Oral, once as needed for Migraine headache repeat after one hour if needed Stop Taking the Following Medications: Medication list as of 07-11-13 13:31 Attention: If you have any medications at home that are not on this list, DO NOT take them until youcontact your provider for clarification. Give a copy of your medication list to your primary care provider. Update your medication list any time medications or doses are changed and carry your medication list at all times in case of emergency. Additional Information: Source: [facility] POWERCHART Document Id: [id number] Miscellaneous - Lauren Gamez, R.NElda - 07/11/2013 12:56 PM CDT Adult Phototypesetting Equipment Monitor Intake/History Adult Phototypesetting Equipment Monitor Intake/History Entered On: 07/11/2013 12:56 CDT Performed On: 07/11/2013 12:56 CDT by LAUREN CHAVEZ Intake Chief Complaint : vaginal infection Peripheral Pulse Rate : 63 /min Systolic Blood Pressure : 122 mmHg Diastolic Blood Pressure : 72 mmHg NIBP Mean : 89 mmHg BP Location : Right upper extremity Blood Pressure Cuff Size : Regular Actual Weight : 56.6 kg(Converted to: 124 lb 13 oz) Dosing Weight Clinic : 56.6 kg LAUREN CHAVEZ - 07/11/2013 12:56 CDT General Info Languages : Cuban LAUREN CHAVEZ - 07/11/2013 12:56 CDT Subjective Pain Symptoms : No LAUREN CHAVEZ - 07/11/2013 12:56 CDT Dependent Habits Tobacco Use/Currently Using : No Exposure to Tobacco Smoke : Other: quit smoking at age 22 Smoking Status : Former smoker LAUREN CHAVEZ - 07/11/2013 12:56 CDT Tobacco Use Grid Last Use : quit 1970 LAUREN CHAVEZ - 07/11/2013 12:56 CDT Caffeine Use Grid Caffeine Use : Current Type : Coffee, Soft drinks Frequency : Daily Amount : 4 Last Use : today LAUREN CHAVEZ - 07/11/2013 12:56 CDT Recreational Drug Use Grid Drug Use : None LAUREN CHAVEZ - 07/11/2013 12:56 CDT [facility] Document Id: [id number] CDT!32 documented in this encounter Plan of Treatment Not on filedocumented as of this encounter Visit Diagnoses Not on filedocumented in this encounter
--- OUTSIDE RECORDS SUMMARY | 2022-02-13 09:19 | XMS_ITS | Encounter Summary ---
:1945 Author Organization [facility] Address [address] [place] [address] Care Team Providers Name Role Phone Unavailable Primary Care Provider Unavailable Encounter Details Date Type Department Care Team Description 11/09/2013 Hospital Encounter HX [facility] MyrJulieta carrillo, DEPUTY CHIEF MAGISTRATE, C.N.P. [address] [place] [address] (Wo rk) Social History Tobacco [...] Sign Reading Time Taken Comments Blood Pressure 114/74 11/09/2013 4:34 PM CDT Pulse 80 11/09/2013 4:34 PM CDT Temperature - - Respiratory Rate 20 11/09/2013 4:34 PM CDT Oxygen Saturation - - Inhaled Oxygen Concentration - - Weight 55.2 kg (121 lb 11.1 oz) 11/09/2013 4:34 PM CDT Height 164 cm (5' 4.57) 11/09/2013 4:34 PM CDT Body Mass Index 20.52 11/09/2013 4:34 PM CDT documented in this encounter Medications [...] Progress Notes Emi Garcia, ORION, C.N.P. - 11/09/2013 4:23 PM CDT [id number] CHIEF COMPLAINT/REASON FOR VISIT Left heel pain. HISTORY OF PRESENT ILLNESS Isadora states she has had left heel pain for approximately last 3 weeks. It started after she was wearing Crocs for about 6 hours on her feet for extended periods of time. She states she has history of heel spurs. She is concerned she may have a crack in her heel. She has not tried any anti-inflammatoryor ice. She has been doing some stretching. MEDICATIONS See depart summary from today. ALLERGIES See EMR. SYSTEMS REVIEW Positive for that mentioned in the history of present illness and noted in the past medical history in the EMR. All other systems were reviewed and were negative. PREVENTIVE Up-to-date. VITAL SIGNS See EMR. PHYSICAL EXAMINATION GENERAL: Well-developed, well-nourished female, in no acute distress. SKIN: Warm and dry. HEART: Regular rate and rhythm. LUNGS: Clear to auscultation. EXTREMITIES: Left heel tender to palpation. No Achilles tenderness. Normal sensation in the toes. Good pedal pulse. Normal range of motion of the ankle. IMPRESSION/REPORT/PLAN Left heel pain. X-ray negative for fracture or osseous abnormality. Recommend icing, ibuprofen 600 mg twice a day with food for the next 5 days. Continue with stretching exercises. She states she sees [facility] physical therapy on a monthly basis for neck. She is going to talk to him about her foot if he feels it would be beneficial for her to have PT, she will call for referral. Total time spent with the patient 25 minutes, 20 minutes of it counseling and coordinating care. Emi Garcia CNP/rolando Electronically Signed By: EMI GARCIA CNP On: 11/10/2013 01:28 PM Source: [facility] MHSDOLBEYNONRADSYS Document Id: [id number] documented in this encounter Nursing Notes Emi Garcia APRN, C.N.P. - 11/09/2013 4:43 PM CDT Ambulatory Patient Education The following Patient Education Materials have been given to the patient: Patient Education Materials: Orthopaedics R.I.C.E. Orthopaedics [id number] R.I.C.E. R.I.C.E. stands for Rest, Ice, Compression, and Elevation. Doing these things helps limit pain and swelling after an injury. R.I.C.E. also helps injuries heal faster. Use R.I.C.E. for sprains, strains,and severe bruises or bumps. Follow the tips on this handout and begin R.I.C.E. as soon as possible after an injury. Rest Pain is your bodys way of telling you to rest an injured area. Whether you have hurt an elbow, hand,foot, or knee, limiting its use will prevent further injury and help you heal. Ice Applying ice right after an injury helps prevent swelling and reduce pain. Dont place ice directly on your skin. ?? Wrap a cold pack or bag of ice in a thin cloth. Place it over the injured area. ?? Ice for 10 minutes every 3 hours. Dont ice for more than 20 minutes at a time. Compression Putting pressure (compression) on an injury helps prevent swelling and provides support. ?? Wrap the injured area firmly with an elastic bandage. If your hand or foot tingles, becomes discolored, or feels cold to the touch, the bandage may be too tight. Rewrap it more loosely. ?? If your bandage becomes too loose, rewrap it. ?? Do not wear an elastic bandage overnight. Elevation Keeping an injury elevated helps reduce swelling, pain, and throbbing. Elevation is most effective when the injury is kept elevated higher than the heart. Call your health care provider if you notice any of the following: Fingers or toes feel numb, are cold to the touch, or change color Skin looks shiny or tight Pain, swelling, or bruising worsens and isnot improved with elevation ?? [phone] [place] [address]. All rights reserved. This information is not intended as a substitute for professional medical care. Always follow your healthcare professional's instructions. This document has images extracted. Please consider using [employer] for all your patient education needs. Source: [facility] POWERCHART Document Id: [id number] documented in this encounter Miscellaneous Notes Miscellaneous - Emi Garcia APRN, C.N.P. - 11/09/2013 4:43 PM CDT Ambulatory Patient Summary [address] [id number] Visit Information Name: ISADORA BACK [facility] Number: [id number] Current Date: 11/09/2013 16:43:08 Physicians Attending Provider: EMI GARCIA CNP Primary Care Provider: LUI GAUTHIER MD ISADORA BACK BOYD has been given the following list of [...] every 4 hours as needed for Wheezing LORazepam (lorazepam 0.5 mg oral tablet) 1 Tablet(s), Oral, three times a day as needed for Anxiety Misc Prescription (Misc Prescription) 1 tab, Oral, once a day Acidphollis potassium citrate (potassium citrate) Oral SUMAtriptan (Imitrex 25 mg oral tablet) 1 Tablet(s), Oral, once as needed for Migraine headache repeat after one hour if needed Stop Taking the Following Medications: Medication list as of 11-09-13 16:43 Attention: If you have any medications at [...] of emergency. Electronically Signed By: EMI GARCIA CNP Signed On:09-NOV-2013 16:42:36 Your Allergies & Intolerances Substance Reaction Symptoms [...] local Clinic if further appointment detail needed. [id number] R.I.C.E. R.I.C.E. stands for Rest, Ice, Compression, and Elevation. Doing these things helps limit pain and swelling after an injury. R.I.C.E. also helps injuries heal faster. Use R.I.C.E. for sprains, strains,and severe bruises or bumps. Follow the tips on this handout and begin R.I.C.E. as soon as possible after an injury. Rest Pain is your bodys way of telling you to rest an injured area. Whether you have hurt an elbow, hand,foot, or knee, limiting its use will prevent further injury and help you heal. Ice Applying ice right after an injury helps prevent swelling and reduce pain. Dont place ice directly on your skin. ?? Wrap a cold pack or bag of ice in a thin cloth. Place it over the injured area. ?? Ice for 10 minutes every 3 hours. Dont ice for more than 20 minutes at a time. Compression Putting pressure (compression) on an injury helps prevent swelling and provides support. ?? Wrap the injured area firmly with an elastic bandage. If your hand or foot tingles, becomes discolored, or feels cold to the touch, the bandage may be too tight. Rewrap it more loosely. ?? If your bandage becomes too loose, rewrap it. ?? Do not wear an elastic bandage overnight. Elevation Keeping an injury elevated helps reduce swelling, pain, and throbbing. Elevation is most effective when the injury is kept elevated higher than the heart. Call your health care provider if you notice any of the following: Fingers or toes feel numb, are cold to the touch, or change color Skin looks shiny or tight Pain, swelling, or bruising worsens and isnot improved with elevation ?? [phone] [place] [address]. All rights reserved. This information is not intended as a substitute for professional medical care. Always follow your healthcare professional's instructions. Your Goals/Additional instructions: This document has images extracted. Please consider using [employer] for all your patient education needs. Source: [facility] POWERCHART Document Id: [id number] Miscellaneous - Emi Garcia APRN, C.N.P. - 11/09/2013 4:43 PM CDT Ambulatory Discharge Medication List [place] [address] [facility] [address] [place], [place] [id number] Visit Information Name: ISADORA BACK [facility] Number: [id number] Visit Date: 11/09/2013 16:43:07 Attending Provider: EMI GARCIA CNP Primary Care Provider: LUI GAUTHIER MD ISADORA [...] every 4 hours as needed for Wheezing LORazepam (lorazepam 0.5 mg oral tablet) 1 Tablet(s), Oral, three times a day as needed for Anxiety Misc Prescription (Misc Prescription) 1 tab, Oral, once a day Acidphollis potassium citrate (potassium citrate) Oral SUMAtriptan (Imitrex 25 mg oral tablet) 1 Tablet(s), Oral, once as needed for Migraine headache repeat after one hour if needed Stop Taking the Following Medications: Medication list as of 11-09-13 16:43 Attention: If you have any medications at [...] of emergency. Electronically Signed By: EMI GARCIA CNP Signed On:09-NOV-2013 16:42:36 Additional Information: Source: [facility] POWERCHART Document Id: [id number] Miscellaneous - Michelle Kwong L.P.N. - 11/09/2013 4:34 PM CDT Adult Manager Transportation Planning Intake/History Adult Manager Transportation Planning Intake/History Entered On: 11/09/2013 16:37 CDT Performed On: 11/09/2013 16:34 CDT by MICHELLE KWONG LPN Intake Chief Complaint : Left heel pain going on for 3 weeks. Started after wearing crocks for 6 hours. Temperature Core : 36.4 DegC(Converted to: 97.5 DegF) (LOW) Peripheral Pulse Rate : 80 /min Respiratory Rate : 20 /min Heart Rhythm : Regular Systolic Blood Pressure : 114 mmHg Diastolic Blood Pressure : 74 mmHg NIBP Mean : 87 mmHg BP Location : Right upper extremity Blood Pressure Cuff Size : Regular Height : 164 cm(Converted to: 5 ft 5 inch(es), 65 inch(es)) Actual Weight : 55.2 kg(Converted to: 121 lb 11 oz) Weight Source : Standing scale Dosing Weight Clinic : 55.2 kg Clinic BSA : 1.59 Body Mass Index : 20.52 kg/m2 LIDIAMIKOMARTIN PisanoMICHELLEANIYAH ADKINS LPN - 11/09/2013 16:34 CDT General Info Information Given By : Patient Languages : Argentine MICHELLE KWONG LUCILLE PRASAD - 11/09/2013 16:34 CDT Subjective Pain Symptoms : Yes LIDIAMIKOMICHELLE Pisano LUCILLE PRASAD 11/09/2013 16:34 CDT Pain Pain Assessment Grid Pain 1 Location : Foot Laterality : Other: Left heel Intensity : 8 MICHELLE KOWNG LUCILLE PRASAD 11/09/2013 16:34 CDT Dependent Habits Tobacco Use/Currently Using : No Exposure to Tobacco Smoke : Other: quit smoking at age 22 Smoking Status : Former smoker LIDIAMIKOAliyaMICHELLE LPN 11/09/2013 16:34 CDT Tobacco Use Grid Last Use : quit 1970 VAR[facility] MICHELLE ADKINS LPN 11/09/2013 16:34 CDT Caffeine Use Grid Caffeine Use : Current Type : Coffee, Soft drinks Frequency : Daily Amount : 4 Last Use : today LIDIAMIKOAliya MICHELLE ADKINS LPN 11/09/2013 16:34 CDT Recreational Drug Use Grid Drug Use : None MARISELAliya MICHELLE ADKINS LPN 11/09/2013 16:34 CDT Source: [employer] Document Id: [id number] CDT!46 documented in this encounter Plan of Treatment Not on filedocumented as of this encounter Procedures Procedure Name Priority Date/Time Associated Diagnosis Comme nts DX FOOT LEFT 3+ Routine 11/09/2013 4:42 PM Result s for this VIEWS CDT procedure are i n the results section. documented in this encounter Results DX Foot Left 3+ Views (11/09/2013 4:42 PM CDT) Anatomical Region Laterality Modality Lower Extremity, Foot Left Radiographic Imagi ng Specimen (Source) Anatomical Collection Method Collection Time Re ceived Time Location / / Volume Laterality 11/09/2013 4:42 PM CDT Addenda Addendum by Oneil Lua M.D. o n 11/09/2013 4:42 PM CDT RAD^^^OW XR Foot Left 3 or more views 11/09/2013 16:42:50 Addendum by ProviderOenil M.D. o n 11/09/2013 4:42 PM CDT RAD^^^MA XR Foot Left 3 or more views 11/09/2013 16:42:50 Narrative 11/09/2013 4:59 PM CDT Technique: Multiple views of the left fo ot were obtained. No prior studies are available for comparison. FINDINGS: There are no evidence of fract ure, dislocation/subluxation or focal destruction. The joint spaces a re maintained and no soft tissue abnormality is seen. ??No radiopa que foreign bodies identified. Moderate sized plantar calcaneal spur is identified. Impression: No radiographic evidence of acute osseous pathology. Procedure Note Kj Ramos M.D. / ProviderBing M.D. - 08/29/2016 Technique: Multiple views of the left fo ot were obtained. No prior studies are available for comparison. FINDINGS: There are no evidence of fract ure, dislocation/subluxation or focal destruction. The joint spaces a re maintained and no soft tissue abnormality is seen. No radiopaqu e foreign bodies identified. Moderate sized plantar calcaneal spur is identified. Impression: No radiographic evidence of acute osseous pathology. Tayler Long(R), REldaT.(R)(M) IMG DIAGNOSTIC IMAG ING PROCEDURES documented in this encounter Visit Diagnoses Not on filedocumented in this encounter
--- OUTSIDE RECORDS SUMMARY | 2022-02-13 09:19 | XMS_ITS | Encounter Summary ---
:1945 Author Organization [facility] Address [address] [place] [address] Care Team Providers Name Role Phone Unavailable Primary Care Provider Unavailable Encounter Details Date Type Department Care Team Description 03/28/2013 Hospital Encounter HX [facility] Nacho Duenas, ORION, C.N.P., D. N.P. [address] [place], [place] [address] (Wo rk) Social History Tobacco Use Types [...] Sign Reading Time Taken Comments Blood Pressure 110/60 03/28/2013 10:57 AM OFFSET PRESS OPERATOR HELPER Pulse 64 03/28/2013 10:57 AM OFFSET PRESS OPERATOR HELPER Temperature - - Respiratory Rate 20 03/28/2013 10:57 AM OFFSET PRESS OPERATOR HELPER Oxygen Saturation - - Inhaled Oxygen Concentration - - Weight 56.8 kg (125 lb 3.5 oz) 03/28/2013 10:57 AM OFFSET PRESS OPERATOR HELPER Height - - Body Mass Index 21.64 02/28/2013 3:12 PM OFFSET PRESS OPERATOR HELPER documented in this encounter Medications at Time of Discharge Medication Sig Dispensed Refills Start Date End Date calcium carbonate-vitamin Chew 1 tablet. 0 2009 D3 1,250 mg (500 mg calcium)-400 unit per chewable tablet LACTOBACILLUS ACIDOPHILUS Take by mouth daily. 0 10/05/2012 (ACIDOPHILUS ORAL) multivitamin tablet Take 1 tablet by 0 06/28/2009 mouth. documented as of this encounter Progress Notes Abel Duenas, ORION, C.N.P. - 03/28/2013 10:38 AM CST [id number] CHIEF COMPLAINT/REASON FOR VISIT Discuss meds. HISTORY OF PRESENT ILLNESS The patient is a 68-year-old female who comes to the clinic to discuss her Ureaplasma. Patient has completed 5 days of Zithromax and states her symptoms have improved but are not gone. She still has vaginal discharge and irritation. Patient is wondering if the Zithromax should be extended or she brought in information regarding Ureaplasma that suggested erythromycin 400 mg 2 tablets 4 times a day for7 days would be more effective. Patient also has history of anxiety and takes lorazepam as needed. At last appointment we did discuss possibly starting a maintenance medication to have better control. Patient is now interested in doing this. She denies fever, chills, nausea, vomiting, shortness breathor chest pain. No thoughts of suicide. MEDICATIONS See depart summary. ALLERGIES See EMR. PAST MEDICAL/SURGICAL HISTORY Unchanged see EMR. SOCIAL HISTORY Unchanged see EMR. FAMILY HISTORY Unchanged see EMR. VITAL SIGNS See EMR. PHYSICAL EXAMINATION GENERAL: Well-appearing female in no acute distress. MENTAL: Alert and oriented to person, place and time. IMPRESSION/REPORT/PLAN 1. Ureaplasma. Patient was instructed that this is not my area of expertise and that if her symptomscontinues, she will need to follow up with Gynecology at [facility] or Nivia Trujillo CNP for further recommendations. Once again reiterated doxycycline is superior treatment for Ureaplasma. However she is unable to tolerate that and we have tried alternative treatment of Zithromax once and the symptoms returned, and on repeat testing she still had Ureaplasma. Patient is in agreement to start erythromycin 400 mg 2 tablets 4 times a day for 7 days. Did discuss side effects to include diarrhea and GI upset. If she does not tolerate this antibiotic she will need to let me know so I canrefer her to Gynecology. 2. Anxiety. At this time we will start Celexa 10 mg once a day. Patient will follow up in 1 month for recheck. Patient was instructed most likely it will need to be titrated up. However, we will start low to prevent any side effects. She will not start this medication until after completing the erythromycin due to the side effect of possible prolonged QT interval. We did discuss side effects of this medication as well. Patient will follow up in 1 month for recheck. Patient verbalizes understanding and agrees with plan of care. Abel Shafer CNP/awais Electronically Signed By: ABEL SHAFER CNP On: 07/30/2013 04:03 PM Source: [facility] [id number] Document Id: [id number] documented in this encounter Miscellaneous Notes Miscellaneous - Abel Duenas APRN, C.N.P. - 03/28/2013 11:40 AM OFFSET PRESS OPERATOR HELPER Ambulatory Patient Summary [address] [place] [address] Visit Information Name: ISADORA BACK [facility] Number: [id number] Visit Date: 03/28/2013 11:40:02 Attending Provider: ABEL SHAFER CNP Primary Care Provider: LUI GAUTHIER MD [...] 4 hours as needed for Wheezing azithromycin (Zithromax Z-Jason 250 mg oral tablet) 2 tablets on day 1, then 1 tablet on days 2-5, Oral, as directed x 5 day(s) New Routed to [address] [id number] citalopram (CeleXA 10 mg oral tablet) 1 Tablet(s), Oral, once a day New Routed to [address] [id number] erythromycin (erythromycin ethylsuccinate 400 mg oral tablet) 2 Tablet(s), Oral, every 6 hours x 7 day(s) New Routed to [address] [id number] LORazepam (lorazepam 0.5 mg oral tablet) 1 Tablet(s), Oral, three times a day as needed for Anxiety Misc Prescription (Misc Prescription) 1 tab, Oral, once a day Acidphollis potassium citrate (potassium citrate) Oral sumatriptan (Imitrex 25 mg oral tablet) 1 Tablet(s), Oral, once as needed for Migraine headache repeat after one hour if needed Stop Taking the Following Medications: Medication list as of 03-28-13 11:40 Attention: If you have any medications at home that are not on this list, DO NOT take them until youcontact your provider for clarification. Give a copy of your medication list to your primary care provider. Update your medication list any time medications or doses are changed and carry your medication list at all times in case of emergency. Additional Information: Source: [facility] POWERCHART Document Id: [id number] ET PRESS OPERATOR HELPER Miscellaneous - Abel Duenas APRN, C.N.P. - 03/28/2013 11:40 AM OFFSET PRESS OPERATOR HELPER Ambulatory Depart Summary [address] [address] Visit Information Name: FRANCIS ISADORA NIX [facility] Number: [id number] Visit Date: 03/28/2013 11:39:59 Attending Provider: ABEL SHAFER [facility] Primary Care Provider: LUI GAUTHIER MD ISADORA BACKE has been given the [...] 4 hours as needed for Wheezing azithromycin (Zithromax Z-Jason 250 mg oral tablet) 2 tablets on day 1, then 1 tablet on days 2-5, Oral, as directed x 5 day(s) New Routed to [facility] [address] [place], [place] [id number] citalopram (CeleXA 10 mg oral tablet) 1 Tablet(s), Oral, once a day New Routed [id number] [place], [place] [id number] erythromycin (erythromycin ethylsuccinate 400 mg oral tablet) 2 Tablet(s), Oral, every 6 hours x 7 day(s) New Routed to [address] [id number] LORazepam (lorazepam 0.5 mg oral tablet) 1 Tablet(s), Oral, three times a day as needed for Anxiety Misc Prescription (Misc Prescription) 1 tab, Oral, once a day Acidphollis potassium citrate (potassium citrate) Oral sumatriptan (Imitrex 25 mg oral tablet) 1 Tablet(s), Oral, once as needed for Migraine headache repeat after one hour if needed Stop Taking the Following Medications: Medication list as of 03-28-13 11:40 Attention: If you have any medications at home that are not on this list, DO NOT take them until youcontact your provider for clarification. Give a copy of your medication list to your primary care provider. Update your medication list any time medications or doses are changed and carry your medication list at all times in case of emergency. Additional Information: Source: [facility] POWERCHART Document Id: [id number] ET PRESS OPERATOR HELPER Miscellaneous - Marco Hernandez, L.P.N. - 03/28/2013 10:57 AM CST Adult Loading Unit Tool Setter Intake/History Adult Loading Unit Tool Setter Intake/History Entered On: 03/28/2013 10:59 OFFSET PRESS OPERATOR HELPER Performed On: 03/28/2013 10:57 OFFSET PRESS OPERATOR HELPER by MARCO HERNANDEZ Intake Chief Complaint : questions if should restart ABX for vaginal infection Temperature Core : 35.8 DegC(Converted to: 96.4 DegF) (LOW) Peripheral Pulse Rate : 64 /min Respiratory Rate : 20 /min Systolic Blood Pressure : 110 mmHg Diastolic Blood Pressure : 60 mmHg NIBP Mean : 77 mmHg BP Location : Right upper extremity Blood Pressure Cuff Size : Regular Actual Weight : 56.8 kg(Converted to: 125 lb 4 oz) Weight Source : Standing scale Dosing Weight Clinic : 56.8 kg MARCO HERNANDEZ - 03/28/2013 10:57 OFFSET PRESS OPERATOR HELPER General Info Information Given By : Patient Languages : Khmer MARCO HERNANDEZ - 03/28/2013 10:57 OFFSET PRESS OPERATOR HELPER Subjective Pain Symptoms : Yes MARCO HERNANDEZ - 03/28/2013 10:57 OFFSET PRESS OPERATOR HELPER Pain Pain Assessment Grid Pain 1 Location : Bladder Intensity : 4 Duration : couple days MARCO HERNANDEZ - 03/28/2013 10:57 OFFSET PRESS OPERATOR HELPER Dependent Habits Tobacco Use/Currently Using : No Tobacco Use/Last 12 months : No Tobacco Use/Advised to Quit : No Smoking Status : Never smoker MARCO HERNANDEZ - 03/28/2013 10:57 OFFSET PRESS OPERATOR HELPER Tobacco Use Grid Last Use : quit 1969 MARCO HERNANDEZ - 03/28/2013 10:57 OFFSET PRESS OPERATOR HELPER Caffeine Use Grid Caffeine Use : Current Type : Coffee Frequency : Daily Amount : 3 Last Use : today MARCO HERNANDEZ - 03/28/2013 10:57 OFFSET PRESS OPERATOR HELPER Source: [employer] Document Id: [id number] OFFSET PRESS OPERATOR HELPER!40 ET PRESS OPERATOR HELPER Miscellaneous - Marco Hernandez L.P.NElda - 03/28/2013 10:57 AM CST Health Assessment Health Assessment Entered On: 03/28/2013 11:01 OFFSET PRESS OPERATOR HELPER Performed On: 03/28/2013 10:57 OFFSET PRESS OPERATOR HELPER by MARCO HERNANDEZ Health Assessment Complete Health Assessment Complete or Modified : Modified Health Assessment MARCO HERNANDEZ - 03/28/2013 10:57 OFFSET PRESS OPERATOR HELPER Nutrition Nutrition Risk Factors by History Adult : None MARCO HERNANDEZ - 03/28/2013 10:57 OFFSET PRESS OPERATOR HELPER Functional Current Daily Living Assistance : None MARCO HERNANDEZ - 03/28/2013 10:57 OFFSET PRESS OPERATOR HELPER Dependent Habits Tobacco Use/Currently Using : No Tobacco Use/Last 12 months : No Smoking Status : Former smoker MARCO HERNANDEZ - 03/28/2013 10:57 OFFSET PRESS OPERATOR HELPER Tobacco Use Grid Last Use : quit 1969 MARCO HERNANDEZ - 03/28/2013 10:57 OFFSET PRESS OPERATOR HELPER Alcohol Use : Yes MARCO HERNANDEZ - 03/28/2013 10:57 OFFSET PRESS OPERATOR HELPER Caffeine Use Grid Caffeine Use : Current Type : Coffee Frequency : Daily Amount : 4 Last Use : today MARCO HERNANDEZ - 03/28/2013 10:57 OFFSET PRESS OPERATOR HELPER Recreational Drug Use Grid Drug Use : None MARCO HERNANDEZ - 03/28/2013 10:57 OFFSET PRESS OPERATOR HELPER AUDIT Tool How Often Do You Have A Drink : Monthly or less How Many Drinks in a Day When Drinking : 1 or 2 Six or More Drinks On One Occassion : Never Audit Phase 1 Score : 1 MARCO HERNANDEZ - 03/28/2013 10:57 OFFSET PRESS OPERATOR HELPER Psychosocial Domestic Abuse Concerns : None Marital Status : Years of Marriage : 41 Number of Children : 3 MARCO HERNANDEZ - 03/28/2013 10:57 OFFSET PRESS OPERATOR HELPER Advance Directive Advanced Directives : No MARCO HERNANDEZ - 03/28/2013 10:57 OFFSET PRESS OPERATOR HELPER Educ Needs Learning Style Preference Adult Grid Patient : Verbal explanation Family : Verbal explanation MARCO HERNANDEZ - 03/28/2013 10:57 OFFSET PRESS OPERATOR HELPER Source: [facility] POWERCHART Document Id: [id number] OFFSET PRESS OPERATOR HELPER!41 ET PRESS OPERATOR HELPER documented in this encounter Plan of Treatment Not on filedocumented as of this encounter Visit Diagnoses Not on filedocumented in this encounter
--- OUTSIDE RECORDS SUMMARY | 2022-02-13 09:19 | XMS_ITS | Encounter Summary ---
:1945 Author Organization [facility] Address [address] [place] [address] Care Team Providers Name Role Phone Unavailable Primary Care Provider Unavailable Encounter Details Date Type Department Care Team Description 08/31/2013 Hospital Encounter HX NO MAPPING Oc Zafar A PRN, C.N.P. [address] [place], [place] [phone] (Wo rk) Social History [...] Reading Time Taken Comments Blood Pressure 110/60 08/31/2013 2:37 PM CDT Pulse 68 08/31/2013 2:37 PM CDT Temperature - - Respiratory Rate 16 08/31/2013 2:37 PM CDT Oxygen Saturation - - Inhaled Oxygen Concentration - - Weight 54.8 kg (120 lb 13 oz) 08/31/2013 2:37 PM CDT Height - - Body Mass Index 20.37 04/14/2013 8:41 AM POULTRY TRIMMER documented in this encounter Medications at Time [...] Progress Notes Oc Zafar, ORION, C.N.P. - 08/31/2013 2:29 PM CDT [id number] CHIEF COMPLAINT/REASON FOR VISIT Followup for vaginitis. HISTORY OF PRESENT ILLNESS Isadora is a 68-year-old patient whom I last saw in the Department of Obstetrics and Gynecology on in 08/08/2013. Please review my note from that date for her complete history. She does have a history of Ureaplasma and was treated with multiple antibiotics because she was not able to tolerate the full recommended prescription due to side effects. She has since felt as though symptoms have basically resolved. She is no longer having odor, discharge, itching or burning. She does note some fairly significant dryness of the vagina. She is here today wants to be sure that her Ureaplasma infection is not there at this point. Therefore, she came for a culture. At this point, she does not think she has an infection and thinks that she is primarily dealing with vaginal dryness at this point, she has attempted vaginal estrogen therapy in the past, but that did lead to migraine headaches and therefore she wasnot able to tolerate it. We discussed alternatives to the vaginal estrogen cream. Including the vaginal estrogen tablets reverses vaginal moisturizers. She has use Replens in the past and that ended upgetting quite chunky and goopy while it was in the vagina and she did not like that and therefore she discontinued it. She is also working with a homeopathist trying to naturally get some vaginal dryness, and she would like to continue working in that route for the current time. The patient has had some stress with in her life. Her middle daughter has some problems with alcoholism and eating disorder and is currently living with Isadora and her . She also brings her son Silviano who is 2-1/2 years old into the house. This is a lot of additional work and stress for Isadora. Shedoes pretty well with it, but notes that she is having some difficulty sleeping. Therefore, she has been taking her Lorazepam 0.5 mg at night before bed, and she states that is just enough to take the edge off and help her get to sleep. She notes that she is almost out of her prescription for that andis wondering if I would refill that for her which I am happy to do today. I will go ahead and provide her a month's worth with 1 refill. MEDICATIONS 1. Imitrex. 2. Lorazepam(prescription renewed today). 3. Acidophilus. 4. Potassium citrate. 5. ProAir HFA. 6. Tylenol. ALLERGIES 1. Ciprofloxacin, reaction tendinitis. 2. Diflucan, reaction blister and swelling of the throat. 3. Metronidazole, reaction tendinitis. 4. Sulfa drugs, reaction nausea. SYSTEMS REVIEW Pertinent positives noted in HPI. Otherwise negative. PAST MEDICAL/SURGICAL HISTORY As per EMR. VITAL SIGNS Temperature 37.2, heart rate 68, respiratory rate 16, blood pressure 110/60, weight 54.8. PHYSICAL EXAMINATION GENERAL: She is a well-appearing female, in no acute distress. PELVIS: Really no exam was performed but culturette was inserted into the vagina and culture was collected. External genitalia does appear dry and atrophic but otherwise within normal limits. IMPRESSION/REPORT/PLAN Followup for vaginitis. PLAN: Ureaplasma culture was obtained but most likely, at this point, we are dealing with vaginal dryness and atrophy. The patient's plan is to continue working with her homeopathist which she use vaginal moisture through natural methods. She is not interested in any medication or any moisturizers at this point, I will plan to give her a call with her culture results when I have them, and we will treat accordingly. Oc Zafar CNP/rolando Electronically Signed By: OC ZAFAR RN, CNP On: 09/01/2013 11:00 AM Source: [facility] MHSDOLBEYNONRADSYS Document Id: [id number] documented in this encounter Miscellaneous Notes Miscellaneous - Vandana García R.N. - 12/05/2013 4:03 PM CDT Lorazepam Document Contains Addenda Addendum by VANDANA GARCÍA on 06 December 2013 12:08:37 CDT Phone call to pt. She is going to schedule an appt for 12/14/13.... Addendum by OC ZAFAR RN, CNP on 06 December 2013 08:53:14 CDT From: OC ZAFAR RN, CNP To: MARCIO Jesus Medication Refill; Sent: 12/06/2013 08:53:14 CDT Subject: RE: Lorazepam Please ask her to schedule an appointment to discuss her usage. Maureen Christiansen Addendum by NICCI RODRIGUEZ on 05 December 2013 17:05:02 CDT From: NICCI RODRIGUEZ (FB Sumner Medication Refill) To: OC ZAFAR RN, CNP; Sent: 12/05/2013 17:05:02 CDT Subject: FW: Lorazepam please see below. Addendum by EMI GARCIA CNP on 05 December 2013 16:11:51 CDT From: EMI GARCIA SYSTEMS PROJECT MANAGER To: MARCIO Jesus Medication Refill; Sent: 12/05/2013 16:11:51 CDT Subject: RE: Lorazepam This should go to Oc Zafar. From: VANDANA GARCÍA (FB Jesus Medication Refill) To: EMI GARCIA CNP; Sent: 12/05/2013 16:03:55 CDT Subject: Lorazepam Caller is: ( ) Patient ( ) Mother ( ) Father ( ) Spouse ( ) Daughter ( ) Son ( Adria/Brittani ) Pharmacy ( ) Other: Provider: [facility]: Name of Medications Needing Refill: Lorazepam 0.5 mg Last Refill Date: 10/24/13 qty 30 Additional Information: 1 tab po TID for 30 days PRN anxiety.... Last / Future Appointment: 11/09/13 Disposition: ( x ) Send to Pharmacy ( ) Call to Pharmacy ( ) Patient will pickle pumper Script ( ) Mail Rxto Patient Source: [facility] POWERCHART Document Id: [id number] Electronically signed by Yfn [facility] Citizenship Teacher [id number] at 09/15/2016 6:08 AM CDT Miscellaneous - Tanja Hernandez, L.P.N. - 09/05/2013 1:55 PM CDT General Message Document Contains Addenda Addendum by OC ZAFAR RN, CNP on 12 Sep 2013 09:45:00 CDT From: OC ZAFAR RN SYSTEMS PROJECT MANAGER To: TANJA HERNANDEZ LPN; Sent: 09/12/2013 09:45:00 CDT Subject: RE: General Message Thanks! From: TANJA HERNANDEZ LPN To: OC ZAFAR RN, CNP; Sent: 09/05/2013 13:55:43 CDT Subject: General Message Patient returned call. Told patient results were negative. She states she is still having irritationand she will try some of the things you mentioned. She states she is not ready to try hormonal therapy related to headaches, but she will try the other things you mentioned. Source: [facility] POWERCHART Document Id: [id number] Miscellaneous - Oc Zafar APRN, C.N.P. - 08/31/2013 3:11 PM CDT Ambulatory Patient Summary [address] [id number] Visit Information Name: ISADORA BACK [facility] Number: [id number] Current Date: 08/31/2013 15:11:44 Physicians Attending Provider: OC ZAFAR RN [facility] Primary Care Provider: LUI GAUTHIER MD ISADORA [...] times a day as needed for Anxiety Routed to Printer Misc Prescription (Misc Prescription) 1 tab, Oral, once a day Acidphollis potassium citrate (potassium citrate) Oral SUMAtriptan (Imitrex 25 mg oral tablet) 1 Tablet(s), Oral, once as needed for Migraine headache repeat after one hour if needed Stop Taking the Following Medications: Medication list as of 08-31-13 15:11 Attention: If you have any medications at [...] emergency. Electronically Signed By: OC ZAFAR RN SYSTEMS PROJECT MANAGER Signed On:31-AUG-2013 15:11:38 Your Allergies & Intolerances Substance Reaction Symptoms [...] appointment detail needed. Your Goals/Additional instructions: Source: [facility] POWERCHART Document Id: [id number] Miscellaneous - Oc Zafar APRN, C.N.P. - 08/31/2013 3:11 PM CDT Ambulatory Discharge Medication List [address] [id number] Visit Information Name: ISADORA BACK [facility] Number: [id number] Visit Date: 08/31/2013 15:11:42 Attending Provider: OC ZAFAR RN SYSTEMS PROJECT MANAGER Primary Care Provider: LUI GAUTHIER MD ISADORA [...] times a day as needed for Anxiety Routed to Printer Misc Prescription (Misc Prescription) 1 tab, Oral, once a day Acidphollis potassium citrate (potassium citrate) Oral SUMAtriptan (Imitrex 25 mg oral tablet) 1 Tablet(s), Oral, once as needed for Migraine headache repeat after one hour if needed Stop Taking the Following Medications: Medication list as of 08-31-13 15:11 Attention: If you have any medications at [...] emergency. Electronically Signed By: OC ZAFAR RN SYSTEMS PROJECT MANAGER Signed On:31-AUG-2013 15:11:38 Additional Information: Source: [facility] POWERCHART Document Id: [id number] Miscellaneous - Tanja Hernandez, L.P.N. - 08/31/2013 2:37 PM CDT Adult Live Truck Technician Intake/History Adult Live Truck Technician Intake/History Entered On: 08/31/2013 14:40 CDT Performed On: 08/31/2013 14:37 CDT by TANJA HERNANDEZ LPN Intake Chief Complaint : check if still has vaginal infection or not Onset of Symptoms : 11/2012 Temperature Core : 37.2 DegC(Converted to: 99.0 DegF) Peripheral Pulse Rate : 68 /min Respiratory Rate : 16 /min Systolic Blood Pressure : 110 mmHg Diastolic Blood Pressure : 60 mmHg NIBP Mean : 77 mmHg BP Location : Right upper extremity Blood Pressure Cuff Size : Regular Actual Weight : 54.8 kg(Converted to: 120 lb 13 oz) Weight Source : Standing scale Dosing Weight Clinic : 54.8 kg TANJA HERNANDEZ LPN - 08/31/2013 14:37 CDT General Info Information Given By : Patient Preferred Communication Mode : Verbal Languages : German TANJA HERNANDEZ LPN - 08/31/2013 14:37 CDT Subjective Pain Symptoms : No TANJA HERNANDEZ LPN - 08/31/2013 14:37 CDT Dependent Habits Tobacco Use/Currently Using : No Tobacco Use/Last 12 months : No Tobacco Use/Advised to Quit : No Exposure to Tobacco Smoke : Other: quit smoking at age 22 Smoking Status : Former smoker TANJA HERNANDEZ CV RN - 08/31/2013 14:37 CDT Tobacco Use Grid Last Use : quit 1970 TANJA HERNANDEZ CV RN - 08/31/2013 14:37 CDT Alcohol Use : Yes TANJA HERNANDEZ CV RN - 08/31/2013 14:37 CDT Caffeine Use Grid Caffeine Use : Current Type : Coffee, Soft drinks Frequency : Daily Amount : 4 Last Use : today TANJA HERNANDEZ CV RN - 08/31/2013 14:37 CDT Recreational Drug Use Grid Drug Use : None TANJA HERNANDEZ CV RN - 08/31/2013 14:37 CDT Source: [facility] [employer] Document Id: [id number] CDT!41 documented in this encounter Plan of Treatment Not on filedocumented as of this encounter Procedures Procedure Name Priority Date/Time Associated Comments Diagnosis UREAPL PCR SRC Routine 08/31/2013 4:33 PM Results for this CDT procedure are i n the results section. UREAPLASMA UREA PCR Routine 08/31/2013 4:33 PM Re sults for this CDT procedure are i n the results section. UREAPLASMA PARV PCR Routine 08/31/2013 4:33 PM Re sults for this CDT procedure are i n the results section. documented in this encounter Results HX-Ureaplasma Parv PCR (08/31/2013 4:33 PM CDT) Analysis Performed At Patho logist Time Signature Ureaplasma Negative POWERCHART parvum PCR Specimen (Source) Anatomical Collection Method Collection Time Re ceived Time Location / / Volume Laterality 08/31/2013 4:33 PM CDT Narrative POWERCHART - 09/04/2013 4:30 PM CDT Laboratory developed test. Test Performed by: [address] [address] Outreach Manager: Varinder tucker III, M.D. Oc Zafar APRN, C.N.P. LAB HISTORICAL ORDERS Performing Organization Address City/[facility] Code Phon e Number POWERCHART HX-Ureaplasma Urea PCR (08/31/2013 4:33 PM CDT) Patholo gist Method Time Signature Ureaplasma Negative POWERCHART urealyticum PCR Specimen (Source) Anatomical Collection Method Collection Time Re ceived Time Location / / Volume Laterality 08/31/2013 4:33 PM CDT Oc Zafar APRN, C.N.P. LAB HISTORICAL ORDERS Performing Organization Address City/[facility] Code Phon e Number POWERCHART HX-Ureapl PCR Src (08/31/2013 4:33 PM CDT) P athologist Signature HXUreapl PCR genital POWERCHART Src-Jasper Specimen (Source) Anatomical Collection Method Collection Time Re ceived Time Location / / Volume Laterality 08/31/2013 4:33 PM CDT Oc Zafar APRN, C.N.P. LAB HISTORICAL ORDERS Performing Organization Address City/[facility] Code Phon e Number POWERCHART documented in this encounter Visit Diagnoses Not on filedocumented in this encounter
--- OUTSIDE RECORDS SUMMARY | 2022-02-13 09:19 | XMS_ITS | Encounter Summary ---
:1945 Author Organization [facility] Address [address] [place] [address] Care Team Providers Name Role Phone Unavailable Primary Care Provider Unavailable Encounter Details Date Type Department Care Team Description 06/14/2013 Hospital Encounter HX [facility] Nacho Duenas, ORION, C.N.P., D. N.P. [address] [place], [place] [address] (Wo rk) Social History [...] Sign Reading Time Taken Comments Blood Pressure 120/78 06/14/2013 10:04 AM SCANNING SUPERVISOR Pulse 88 06/14/2013 10:04 AM SCANNING SUPERVISOR Temperature - - Respiratory Rate 16 06/14/2013 10:04 AM SCANNING SUPERVISOR Oxygen Saturation - - Inhaled Oxygen Concentration - - Weight 56.1 kg (123 lb 10.9 oz) 06/14/2013 10:04 AM SCANNING SUPERVISOR Height - - Body Mass Index 20.86 04/14/2013 8:41 AM SCANNING SUPERVISOR documented in this encounter Medications at Time [...] Progress Notes Abel Duenas, ORION, C.N.P. - 06/14/2013 9:58 AM CST FM-LE CHIEF COMPLAINT/REASON FOR VISIT Left knee pain. HISTORY OF PRESENT ILLNESS The patient is a 68-year-old female, who presents to the clinic for left knee pain for 2 months. Patient denies any injury. She has not been exercising. Patient states that it is tender and feels swollen. She occasionally hears a pop. She denies fever, chills, nausea, vomiting, shortness of breath or chest pain. MEDICATIONS See depart summary. ALLERGIES See EMR. PAST MEDICAL/SURGICAL HISTORY Unchanged. See EMR. SOCIAL HISTORY Unchanged. See EMR. FAMILY HISTORY Unchanged. See EMR. VITAL SIGNS See EMR. PHYSICAL EXAMINATION GENERAL: Well-appearing female, in no acute distress. LYMPH: No cervical lymphadenopathy. LUNGS: Clear to auscultation. HEART: Regular rate and rhythm. EXTREMITIES: Patient does have pain on full extension. She has negative anterior-posterior drawer test. No tenderness along joint line. No effusion or redness noted. MENTAL: Alert and oriented to person, place and time. IMPRESSION/REPORT/PLAN Left knee pain. Will obtain x-ray. Notify her of the results. Patient was encouraged to take Tylenoland ibuprofen on a regular basis. She should apply ice 20 minutes 2 to 3 times a day. Patient shouldstretch and begin strengthening. If it does not improve, she should return for possible steroid injection or MRI if needed. Patient will be referred to physical therapy. Patient verbalizes understanding and agrees with plan of care. Abel Shafer CNP/rolando Electronically Signed By: ABEL SHAFER CNP On: 07/30/2013 03:27 PM Source: [facility] MHSDOLBEYNONRADSYS Document Id: [id number] documented in this encounter Miscellaneous Notes Miscellaneous - Abel Duenas APRN, C.N.P. - 06/14/2013 2:09 PM SCANNING SUPERVISOR Results Notification Document Contains Addenda Addendum by TANJA HERNANDEZ LPN on 20 June 2013 15:35:11 SCANNING SUPERVISOR referral completed. Addendum by ABEL SHAFER CNP on 20 June 2013 12:35:17 SCANNING SUPERVISOR From: ABEL SHAFER CNP To: MARCIO Lee [facility] Nurse; Sent: 06/20/2013 12:35:17 SCANNING SUPERVISOR Show up: 06/20/2013 12:35:00 SCANNING SUPERVISOR Subject: RE: Results Notification Addendum by ABEL SHAFER CNP on 20 June 2013 08:14:03 SCANNING SUPERVISOR From: ABEL SHAFER CNP To: ABEL SHAFER CNP; Sent: 06/20/2013 08:14:03 SCANNING SUPERVISOR Show up: 06/20/2013 08:13:00 SCANNING SUPERVISOR Subject: RE: Results Notification Please minerva to [facility] for left knee pain. Addendum by TANJA HERNANDEZ LPN on 19 June 2013 16:40:04 SCANNING SUPERVISOR Patient did call back. She would like a referral to [facility] in [place] for her left knee. She states they see her for her neck and they notice that the thigh muscle is stressed, causing it to pull up on the knee cap and that is causing her pain, they said with a referral they can treat her. Addendum by TANJA HERNANDEZ LPN on 16 June 2013 11:43:34 SCANNING SUPERVISOR Left message to return call From: ABEL SHAFER CNP Sent: 06/14/2013 14:09:10 SCANNING SUPERVISOR ! Show up: 06/14/2013 14:09:10 SCANNING SUPERVISOR Subject: Results Notification Actions: Notify patient of results Reminder Comments: No space narrowing at this time. No effusion either. If pain worsens or does not improve should recheck. Results: Date Result Type Result Name 06/14/2013 11:11 Radiology XR Knee Left 2 or less views Source: [facility] POWERCHART Document Id: [id number] Electronically signed by [facility]fn [facility] Electronics Assembler [id number] at 09/14/2016 11:05 PM CDT Miscellaneous - Abel Duenas, ORION, C.N.P. - 06/14/2013 10:31 AM SCANNING SUPERVISOR Ambulatory Patient Summary [facility] [address] [place] [id number] Visit Information Name: ISADORA BACK [facility] Number: [id number] Visit Date: 06/14/2013 10:31:53 Attending Provider: ABEL SHAFER CNP Primary Care [...] for Patient Medication Changes/Routing acetaminophen (Tylenol) Oral New albuterol (ProAir HFA 90 mcg/inh inhalation aerosol) [...] the Following Medications: Medication list as of 06-14-13 10:31 Attention: If you have any medications at home that are not on this list, DO NOT take them until youcontact your provider for clarification. Give a copy of your medication list to your primary care provider. Update your medication list any time medications or doses are changed and carry your medication list at all times in case of emergency. Additional Information: Source: [facility] POWERCHART Document Id: [id number] NING SUPERVISOR Miscellaneous - Abel Duenas APRN, C.N.P. - 06/14/2013 10:31 AM SCANNING SUPERVISOR Ambulatory Discharge Medication List [address] [id number] Visit Information Name: ISADORA BACK [facility] Number: [id number] Visit Date: 06/14/2013 10:31:51 Attending Provider: ABEL SHAFER CNP Primary Care [...] for Patient Medication Changes/Routing acetaminophen (Tylenol) Oral New albuterol (ProAir HFA 90 mcg/inh inhalation aerosol) [...] the Following Medications: Medication list as of 06-14-13 10:31 Attention: If you have any medications at home that are not on this list, DO NOT take them until youcontact your provider for clarification. Give a copy of your medication list to your primary care provider. Update your medication list any time medications or doses are changed and carry your medication list at all times in case of emergency. Additional Information: Source: [facility] POWERCHART Document Id: [id number] NING SUPERVISOR Miscellaneous - Tanja Hernandez, LEldaP.N. - 06/14/2013 10:04 AM CST Adult Java Software Architect Intake/History Adult Java Software Architect Intake/History Entered On: 06/14/2013 10:08 SCANNING SUPERVISOR Performed On: 06/14/2013 10:04 SCANNING SUPERVISOR by TANJA HERNANDEZ LPN Intake Temperature Core : 36.8 DegC(Converted to: 98.2 DegF) Peripheral Pulse Rate : 88 /min Respiratory Rate : 16 /min Systolic Blood Pressure : 120 mmHg Diastolic Blood Pressure : 78 mmHg NIBP Mean : 92 mmHg BP Location : Right upper extremity Blood Pressure Cuff Size : Regular Actual Weight : 56.1 kg(Converted to: 123 lb 11 oz) Weight Source : Mechanical lift Dosing Weight Clinic : 56.1 kg TANJA HERNANDEZ LPN - 06/14/2013 10:04 SCANNING SUPERVISOR General Info Information Given By : Patient Languages : Kosovan TANJA HERNANDEZ LPN - 06/14/2013 10:04 SCANNING SUPERVISOR Subjective Pain Symptoms : Yes MARY DAISYHEIDI Olivia PRASAD - 06/14/2013 10:04 SCANNING SUPERVISOR Pain Pain Assessment Grid Pain 1 Location : Knee (Comment: left [MARY TANJA Baker LPN - 06/14/2013 10:04 SCANNING SUPERVISOR] ) Intensity : 7 Duration : 2 months MARY DAISYHEIDI Olivia PRASAD - 06/14/2013 10:04 SCANNING SUPERVISOR (Comment: states pain is when knee not in motion, hurts most in bed [LACEYPHIL TANJA Baker LPN 06/14/2013 10:04 SCANNING SUPERVISOR] ) Dependent Habits Tobacco Use/Currently Using : No Tobacco Use/Last 12 months : No Tobacco Use/Advised to Quit : No Exposure to Tobacco Smoke : Other: quit smoking at age 22 Smoking Status : Former smoker LACEYPHIL TANJA Baker LPN - 06/14/2013 10:04 SCANNING SUPERVISOR Tobacco Use Grid Last Use : quit 1970 TANJA HERNANDEZ LPN 06/14/2013 10:04 SCANNING SUPERVISOR Caffeine Use Grid Caffeine Use : Current Type : Coffee, Soft drinks Frequency : Daily Amount : 4 Last Use : today TOSHIARODRIGUEZ TANJA Baker LPN - 06/14/2013 10:04 SCANNING SUPERVISOR Recreational Drug Use Grid Drug Use : None MARY TANJA Baker LPN - 06/14/2013 10:04 SCANNING SUPERVISOR [facility] Document Id: [id number] SCANNING SUPERVISOR!43 NING SUPERVISOR documented in this encounter Plan of Treatment Not on filedocumented as of this encounter Procedures Procedure Name Priority Date/Time Associated Diagnosis Comme nts DX KNEE LEFT 1 VIEW Routine 06/14/2013 11:10 AM R esults for this SCANNING SUPERVISOR procedure are i n the results section. documented in this encounter Results DX Knee Left 1 View (06/14/2013 11:10 AM SCANNING SUPERVISOR) Anatomical Region Laterality Modality Lower Extremity, Knee Left Radiographic Imagi ng Specimen (Source) Anatomical Collection Method Collection Time Re ceived Time Location / / Volume Laterality 06/14/2013 11:10 AM SCANNING SUPERVISOR Addenda Addendum by Provider, Jacquelyn Riggs 06/14/2013 11:10 AM SCANNING SUPERVISOR RAD^^^OW XR Knee Left 2 or less views 06/14/2013 11:10:19 Addendum by Provider, Jacquelyn Riggs 06/14/2013 11:10 AM SCANNING SUPERVISOR RAD^^^MA XR KNEE LEFT 2 OR LESS VIEWS 06/14/2013 11:10:00 Narrative 06/14/2013 11:08 AM SCANNING SUPERVISOR Exam: ?XR Knee Left 2 or less views Clinical history: ??knee pain x2 months Comparison: None Findings: There is no knee joint effusio n. The bones about the knee are intact and well aligned without lety ical lucency to suggest fracture. There is no joint space narrow ing. Impression: ??No fracture or dislocation .. Procedure Note Gama Bateman M.D. / Provider, John campoverde M.D. - 08/28/2016 Exam: XR Knee Left 2 or less views Clinical history: knee pain x2 months Comparison: None Findings: There is no knee joint effusio n. The bones about the knee are intact and well aligned without lety ical lucency to suggest fracture. There is no joint space narrow ing. Impression: No fracture or dislocation.. Ari Long(Aliya)(M) IMG DIAGNOSTIC IMAGING PROCE DURES documented in this encounter Visit Diagnoses Not on filedocumented in this encounter
--- OUTSIDE RECORDS SUMMARY | 2022-02-13 09:19 | XMS_ITS | Encounter Summary ---
:1945 Author Organization [facility] Address [address] [place] [address] Care Team Providers Name Role Phone Unavailable Primary Care Provider Unavailable Encounter Details Date Type Department Care Team Description 04/26/2013 Hospital Encounter HX [facility] Luisa Pearson M.D. [address], [place] [phone] (Wo rk) Social History [...] Diagnosis Comme nts BI BREAST SCREENING Routine 04/26/2013 1:30 PM Re sults for this BILATERAL CASING MIXER procedure are i n the results section. documented in this encounter Results BI Breast Screening Bilateral (04/26/2013 1:30 PM CASING MIXER) Anatomical Region Laterality Modality Breast Bilateral Mammography Specimen (Source) Anatomical Collection Method Collection Time Re ceived Time Location / / Volume Laterality 04/26/2013 1:30 PM CASING MIXER Addenda Addendum by ProviderOneil M.D. o n 04/26/2013 1:30 PM CASING MIXER RAD^^^OW MA Mammo Screening w ??CADD 04/26/2013 13:30:00 Addendum by Oneli Lua M.D. o n 04/26/2013 1:57 PM CASING MIXER RAD^^^OW MA Mammo Screening w ??CADD 04/26/2013 13:57:50 Addendum by Oneil Lua M.D. o n 04/26/2013 1:30 PM CASING MIXER RAD^^^MA MA MAMMO SCREENING W CADD 04/26/2013 13:30:00 Addendum by Oneil Lua M.D. o n 04/26/2013 1:57 PM CASING MIXER RAD^^^MA MA MAMMO SCREENING W CADD 04/26/2013 13:57:00 Impressions 04/26/2013 2:49 PM CASING MIXER Stable mammogram, no evidence of malignancy. BI-RADS code: 1, negative mammogram. Narrative 04/26/2013 2:49 PM CASING MIXER EXAM: [place] Mammo Screening w/ CADD INDICATION: screening COMPARISON: 04/06/2012, 07/16/2010, and . FINDINGS: Breasts are of intermediate ra diographic density in a stable pattern. No suspicious dominant m ass or clustered microcalcifications suspicious for malig tana identified. There is no suspicious interval change compared with 04/06/2012. CAD was utilized in the interpretation o f this exam. Procedure Note Paco Ley Jr., M.D. / Oneil Jimenez M.D. - 08/28/2016 EXAM: [place] Mammo Screening w/ CADD INDICATION: screening COMPARISON: 04/06/2012, 07/16/2010, and . FINDINGS: Breasts are of intermediate ra diographic density in a stable pattern. No suspicious dominant m ass or clustered microcalcifications suspicious for malig tana identified. There is no suspicious interval change compared with 04/06/2012. CAD was utilized in the interpretation o f this exam. IMPRESSION: Stable mammogram, no evidenc e of malignancy. BI-RADS code: 1, negative mammogram. Martha Long(R), REldaTElda(R)(M) IMG BI PROCEDUR ES documented in this encounter Visit Diagnoses Not on filedocumented in this encounter
--- OUTSIDE RECORDS SUMMARY | 2022-02-13 09:19 | XMS_ITS | Encounter Summary ---
:1945 Author Organization [facility] Address [address] [place] [address] Care Team Providers Name Role Phone Unavailable Primary Care Provider Unavailable Encounter Details Date Type Department Care Team Description 04/14/2013 Hospital Encounter HX [facility] Luisa Crockett i, M.D. [address] [place] [address] (Wo rk) Social History Tobacco [...] Sign Reading Time Taken Comments Blood Pressure 108/78 04/14/2013 8:41 AM [employer] Pulse 76 04/14/2013 8:41 AM [employer] Temperature - - Respiratory Rate 18 04/14/2013 8:41 AM [employer] Oxygen Saturation - - Inhaled Oxygen Concentration - - Weight 59 kg (130 lb 1.1 oz) 04/14/2013 8:41 AM [employer] Height 164 cm (5' 4.57) 04/14/2013 8:41 AM [employer] Body Mass Index 21.94 04/14/2013 8:41 AM [employer] documented in this encounter Medications at Time [...] encounter H&P Notes Luisa Whitten M.D. - 04/14/2013 8:32 AM CST [id number] CHIEF COMPLAINT/REASON FOR VISIT Review medications, review medical concerns, update preventive services. MEDICATIONS Sumatriptan 25 mg as needed for migraines. Lorazepam 0.5 mg three times a day as needed for anxiety. Albuterol MDI 2 inhalations every 4 hours as needed for wheezing. ALLERGIES Cipro. Diflucan. Metronidazole. Sulfa. PAST MEDICAL/SURGICAL HISTORY 1. 3, para 3. 2. Laparoscopic cholecystectomy. 3. Right breast lumpectomy with unknown pathology. 4. Osteopenia. 5. History of tendonitis of the right knee which she feels was secondary to Levaquin. 6. Diverticulosis with 1 episode of diverticulitis. SYSTEMS REVIEW Isadora uses lorazepam occasionally for sleep. She has not needed to use it during the day for anxiety.She has not been taking the Celexa that was recently prescribed, as she does not like taking medications. She feels that her anxiety is fairly well controlled without this. She had a recent vaginal infection which she believes has cleared up with amoxicillin use. She has got some soreness and swellingon her left upper arm at a recent Adacel site. She does have some vaginal dryness and uses coconut oil for this. No headaches, numbness or tingling. No changes in vision or hearing. No sore throat, runny nose, earache or cough. No shortness of breath or chest pain. No abdominal pain or change in bowelhabits. No hematuria or dysuria. No vaginal discharge or dyspareunia. No musculoskeletal aches or pains. No lymph node swelling. No easy bruising or bleeding. No excessive thirst or hunger. No mood or behavioral difficulties. HEALTH MAINTENANCE Tobacco use: None. Tetanus booster: 04/03/2013. Pneumovax: 04/08/2012. Lipid panel: Updated today. Influenza: 02/16/2013. Colonoscopy: 11/10/2012. SOCIAL HISTORY She continues to care for grandchildren. 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 FAMILY HISTORY Mother had breast cancer in her 60s and also has COPD, diabetes and hypertension. She has recently. Father at age 80 of laryngeal cancer. He also had hypertension. A sister has had a pacemaker placed. Brother at age 50 of laryngeal cancer. VITAL SIGNS Height is 164 cm, weight is 59 kg, temperature 36.7, respirations 18, pulse 76, blood pressure 108/78. PHYSICAL EXAMINATION SKIN: Well-healed surgical scar on the left breast inferior to the areola. ENT: Tympanic membranes are normal bilaterally. Oropharynx is without erythema or exudate. Inferior nasal turbinates are without injection. LYMPH NODES: Neck without adenopathy or thyromegaly. BREASTS: Without mass or nipple discharge. There is no axillary or supraclavicular adenopathy. PERIPHERAL VESSELS: HEART: Regular rate and rhythm without murmur. LUNGS: Clear to auscultation. ABDOMEN: Soft and nontender with no masses. RECTUM: Exam is without mass. GENITALIA: External genitalia without lesions. Cervix is normal in appearance. Bimanual exam revealssmall nontender uterus and adnexa. EXTREMITIES: Within normal limits. IMPRESSION/REPORT/PLAN 1. Healthcare maintenance. She is encouraged to maintain healthy body weight through diet and exercise. She is reminded of the need for monthly self-breast exams, yearly eye and regular dental visits. Screening labs today are basic metabolic panel, lipid panel. 2. Anxiety. She feels that this is well controlled with infrequent use of lorazepam. Luisa Gauthier M.D./merced Electronically Signed By: LUISA GAUTHIER MD On: 04/17/2013 02:27 PM Source: [facility] MHSDOLBEYNONRADSYS Document Id: [id number] [employer] documented in this encounter Miscellaneous Notes Miscellaneous - Luisa Whitten M.D. - 04/25/2013 11:13 AM [employer] General Message Document Contains Addenda Addendum by ELENO MORALES LPN on 25 April 2013 16:31:12 [employer] notified, and said she will do the otc Addendum by ELENO MORALES LPN on 25 April 2013 12:25:46 [employer] got answering machine From: LUISA GAUTHIER MD To: ELENO MORALES LPN; Sent: 04/25/2013 11:13:27 [employer] Subject: General Message Isadora's pap is normal but they saw some yeast on the pap. She can treat with otc yeast creams or [facility] if [facility] like. Source: [facility] POWERCHART Document Id: [id number] Miscellaneous - Luisa Whitten M.D. - 04/15/2013 2:08 PM [employer] Normal Results Letter 15 April 2013 ISADORA BROWN [address] [place] [phone] Dear ISADORA BACK, I am pleased to report that your results from the following diagnostic test(s) are normal. Please follow up with us as we discussed during your visit or sooner if you have any concerns. If you have questions or concerns, please do not hesitate to call our office. Result Name Current Result Previous Result Normal Range Sodium Lvl (mmol/L) 139 04/14/2013 135 - 145 Potassium Lvl (mmol/L) 4.5 04/14/2013 3.5 - 4.8 Chloride (mmol/L) (L) 99 04/14/2013 100 - 108 CO2 (mmol/L) 30 04/14/2013 22 - 30 Glucose Fasting (mg/dL) 96 04/14/2013 70 - 99 Creatinine (mg/dL) 0.8 04/14/2013 0.8 02/24/2013 0.7 - 1.2 EGFR (MDRD) (mL/min) >60 04/14/2013 >60 02/24/2013 EGFR (MDRD) (mL/min) >60 04/14/2013 >60 02/24/2013 BUN (mg/dL) 10 04/14/2013 6 - 20 Calcium Lvl (mg/dL) 9.8 04/14/2013 8.5 - 10.5 Cholesterol (mg/dL) 179 04/14/2013 0 - 200 Trig (mg/dL) 80 04/14/2013 0 - 150 HDL (mg/dL) (H) 62.0 04/14/2013 40.0 - 60.0 LDL Calculated (mg/dL) (H) 101 04/14/2013 0 - 100 Sincerely, LUISA GAUTHIER [address] [place] [address] Electronic Signature Electronically Signed By: LUISA GAUTHIER MD On: 15 April 2013 This document has images extracted. Source: [facility] POWERCHART Document Id: [id number] Electronically signed by Conversion, [facility] Turbine Engine Assembler [id number] at 09/16/2016 10:49 PM CDT Miscellaneous - Luisa Whitten M.D. - 04/14/2013 9:31 AM [employer] Ambulatory Patient Summary [id number] [place] [address] Visit Information Name: ISADORA BACK [facility] Number: [id number] Current Date: 04/14/2013 09:31:54 Physicians Attending Provider: LUISA GAUTHIER MD Primary Care Provider: LUISA GAUTHIER MD ISADORA BACK has been given [...] the Following Medications: Medication list as of 04-14-13 09:31 Attention: If you have any medications at [...] Upcoming Appointments Date Time Location Reason Provider 04/25/2013 11:00 [facility] Room 1 Attention: Contact your local Clinic if further appointment detail needed. Your Goals/Additional instructions: Source: [facility] POWERCHART Document Id: [id number] [employer] Miscellaneous - Luisa Whitten M.D. - 04/14/2013 9:31 AM [employer] Ambulatory Depart Summary [id number] [place] [address] Visit Information Name: ISADORA BACK [facility] Number: [id number] Visit Date: 04/14/2013 09:31:52 Attending Provider: LUISA GAUTHIER MD Primary Care Provider: LUISA GAUTHIER MD ISADORA BACK has been given [...] the Following Medications: Medication list as of 04-14-13 09:31 Attention: If you have any medications at home that are not on this list, DO NOT take them until youcontact your provider for clarification. Give a copy of your medication list to your primary care provider. Update your medication list any time medications or doses are changed and carry your medication list at all times in case of emergency. Additional Information: Source: [facility] POWERCHART Document Id: [id number] [employer] Miscellaneous - Conversion, Historical Provider Ser - 04/14/2013 8:41 AM [employer] Adult Oxidation Engineer Intake/History Adult Oxidation Engineer Intake/History Entered On: 04/14/2013 8:47 [employer] Performed On: 04/14/2013 8:41 [employer] by BREE DARNELL LPN Intake Temperature Core : 36.7 DegC(Converted to: 98.1 DegF) BREE DARNELL LPN - 04/14/2013 8:47 [employer] Chief Complaint : annual Peripheral Pulse Rate : 76 /min Respiratory Rate : 18 /min Systolic Blood Pressure : 108 mmHg Diastolic Blood Pressure : 78 mmHg NIBP Mean : 88 mmHg BP Location : Left upper extremity Blood Pressure Cuff Size : Regular Height : 164 cm(Converted to: 5 ft 5 inch(es), 64.57 inch(es)) Actual Weight : 59 kg(Converted to: 130 lb 1 oz) Weight Source : Standing scale Dosing Weight Clinic : 59 kg Clinic BSA : 1.64 Body Mass Index : 21.94 kg/m2 BREE DARNELL LPN - 04/14/2013 8:41 [employer] General Info Languages : Tamazight BREE DARNELL LPN - 04/14/2013 8:41 [employer] Subjective Pain Symptoms : No BREE DARNELL LPN - 04/14/2013 8:41 [employer] Dependent Habits Tobacco Use/Currently Using : No Smoking Status : Former smoker BREE DARNELL LPN - 04/14/2013 8:41 [employer] Tobacco Use Grid Last Use : quit 1970 BREE DARNELL LPN - 04/14/2013 8:41 [employer] Alcohol Use : Yes (Comment: ocassioanl [BREE DARNELL LPN - 04/14/2013 8:41 [employer]] ) BREE DARNELL LPN - 04/14/2013 8:41 [employer] Caffeine Use Grid Caffeine Use : Current Type : Coffee, Soft drinks Frequency : Daily Amount : 4 Last Use : today BREE DARNELL LPN - 04/14/2013 8:41 [employer] Recreational Drug Use Grid Drug Use : None BREE DARNELL LPN - 04/14/2013 8:41 [employer] Source: [facility] POWERCHART Document Id: [id number] [employer]!3 Miscellaneous - Conversion, Historical Provider Ser - 04/14/2013 8:40 AM [employer] Health Assessment Health Assessment Entered On: 04/14/2013 8:41 [employer] Performed On: 04/14/2013 8:40 [employer] by BERE DARNELL LPN Health Assessment Complete Health Assessment Complete or Modified : Annual Health Assessment Annual Health Assessment Completed : Yes BREE DARNELL LPN - 04/14/2013 8:40 [employer] Nutrition Nutrition Risk Factors by History Adult : None BREE DARNELL LPN - 04/14/2013 8:40 [employer] Functional Current Daily Living Assistance : None BREE DARNELL LPN - 04/14/2013 8:40 [employer] Dependent Habits Tobacco Use/Currently Using : No Smoking Status : Former smoker BREE DARNELL LPN - 04/14/2013 8:40 [employer] Tobacco Use Grid Last Use : quit 1970 BREE DARNELL LPN - 04/14/2013 8:40 [employer] Caffeine Use Grid Caffeine Use : Current Type : Coffee Frequency : Daily Amount : 4 Last Use : today BREE DARNELL LPN - 04/14/2013 8:40 [employer] Recreational Drug Use Grid Drug Use : None BREE DARNELL LPN - 04/14/2013 8:40 [employer] Psychosocial Domestic Abuse Concerns : None Marital Status : BREE DARNELL LPN - 04/14/2013 8:40 [employer] Advance Directive Advanced Directives : No BREE DARNELL LPN 04/14/2013 8:40 [employer] Educ Needs Learning Style Preference Adult Grid Patient : Demonstration, Printed materials, Verbal explanation, Video/Educational TV Family : Demonstration, Printed materials, Verbal explanation, Video/Educational TV BREE DARNELL LPN - 04/14/2013 8:40 [employer] Source: [facility] [employer] Document Id: [id number] [employer]!33 documented in this encounter Plan of Treatment Not on filedocumented as of this encounter Procedures Procedure Name Priority Date/Time Associated Diagnosis Comme nts LIPID PANEL, S Routine 04/14/2013 9:49 AM Results for this [employer] procedure are i n the results section. BASIC METABOLIC Routine 04/14/2013 9:49 AM Result s for this PANEL, S/P [employer] procedure are i n the results section. THINPREP SCREEN HPV Routine 04/14/2013 9:40 AM Re sults for this REFLEX [employer] procedure are i n the results section. documented in this encounter Results (ABNORMAL) BMP (Basic Metabolic Panel) (04/14/2013 9:49 AM [employer]) P athologist Signature BUN (Blood Urea 10 6 - 20 POWERCHART Nitrogen), S MGDL Creatinine 0.8 0.7 - 1.2 POWERCHART MGDL Potassium, S 4.5 3.5 - 4.8 POWERCHART MMOLL Sodium, S 139 135 - 145 POWERCHART MMOLL Chloride, S 99 (L) 100 - 108 POWERCHART MMOLL CO2 Total 30 22 - 30 POWERCHART MMOLL Calcium, Total, 9.8 8.5 - 10.5 POWERCHART S MGDL eGFR >60 MLMIN POWERCHART Black/ Glucose, 96 70 - 99 POWERCHART Fasting, S MGDL HXeGFR (MDRD) >60 MLMIN POWERCHART Specimen (Source) Anatomical Collection Method Collection Time Re ceived Time Location / / Volume Laterality Blood 04/14/2013 9:49 AM [employer] Luisa Roy M.D. LAB BLOOD ADD-ON Performing Organization Address City/State/ZIP Code Phon e Number POWERCHART (ABNORMAL) Lipid Panel (04/14/2013 9:49 AM [employer]) Patholo gist Method Time Signature Cholesterol, 179 0 - 200 POWERCHART Total MGDL HX HDL 62.0 (H) 40.0 - POWERCHART 60.0 MGDL Triglycerides 80 0 - 150 POWERCHART MGDL Calculated LDL 101 (H) 0 - 100 POWERCHART MGDL Specimen (Source) Anatomical Collection Method Collection Time Re ceived Time Location / / Volume Laterality Blood 04/14/2013 9:49 AM [employer] Luisa Roy M.D. LAB BLOOD ADD-ON Performing Organization Address City/State/ZIP Code Phon e Number POWERCHART Pathology ThinPrep Screen HPV Reflex (04/14/2013 9:40 AM [employer]) [facility] Method Time Signature Interpretation [id number] [facility] See Comment POWERCHART [facility] Comment: A. ??ThinPrep Pap Test Screen (Cervical/ Endocervical HPV Reflex): Satisfactory for evaluation. Partially obscuring inflammation. Inadequate endocervical/transformation z one component Negative for intraepithelial lesion or m alignancy. Fungal organisms morphologically consist ent with Alina species HPV testing was performed by [employer] and is negative for HPV types 16,18,31,33,35,39 ,45,51,52,56,58,59 and 68. Comment: An inadequate endocervical/warner sformational zone component is not necessarily an indicati on for immediately repeating the pap. Correlation with the history an d clinical exam are required. [facility] See Comment SHIV GOETZT Comment: Report electronically signed by Jimmy Prescott, SAAD(ASCP) 04/25/2013 10:58 Interpreted by: RHONA Mccarthy(ASCP) [facility] See Comment POWERCHART Comment: A. ??ThinPrep Pap Test Screen (Cervical/ Endocervical HPV Reflex): Received cloudy specimen in ThinPrep via l. Test Performed by: [place] [address] Site Worker: Varinder tucker III, M.D. Specimen (Source) Anatomical Collection Method Collection Time Re ceived Time Location / / Volume Laterality Cervix/Endocervix 04/14/2013 9:40 AM [employer] Luisa Roy M.D. LAB PAP PATHDX ORDERAB LES Performing Organization Address City/State/ZIP Code Phon e Number POWERCHART documented in this encounter Visit Diagnoses Not on filedocumented in this encounter
--- OUTSIDE RECORDS SUMMARY | 2022-02-13 09:19 | XMS_ITS | Encounter Summary ---
:1945 Author Organization [facility] Address [address] [place] [address] Care Team Providers Name Role Phone Unavailable Primary Care Provider Unavailable Encounter Details Date Type Department Care Team Description 04/03/2013 Hospital Encounter HX [facility] FAMILY[facility] MyrJulieta carrillo, STORE OPERATIONS MANAGER, C.N.P. [address] [place] [address] (Wo rk) Social History Tobacco [...] Sign Reading Time Taken Comments Blood Pressure 108/58 04/03/2013 1:47 PM BOREMATIC OPERATOR Pulse 80 04/03/2013 1:47 PM BOREMATIC OPERATOR Temperature - - Respiratory Rate 20 04/03/2013 1:47 PM BOREMATIC OPERATOR Oxygen Saturation - - Inhaled Oxygen Concentration - - Weight 58 kg (127 lb 13.9 oz) 04/03/2013 1:47 PM BOREMATIC OPERATOR Height 162 cm (5' 3.78) 04/03/2013 1:47 PM BOREMATIC OPERATOR Body Mass Index 22.1 04/03/2013 1:47 PM BOREMATIC OPERATOR documented in this encounter Medications at Time [...] Progress Notes Emi Garcia, ORION, C.N.P. - 04/03/2013 1:38 PM CST [id number] CHIEF COMPLAINT/REASON FOR VISIT 1. Sinus congestion 2. Chest congestion with cough HISTORY OF PRESENT ILLNESS Isadora states she is returning from a long weekend in [place] and developed a sinus infection. She has had a lot of pressure over her maxillary sinuses. She has had postnasal drip. She is coughing. She usually uses albuterol when she has chest congestion but she did not have it with her in [place]. She has not been home yet but she does have some at home does not need a refill today. She denies fever. MEDICATIONS See depart summary from today. ALLERGIES Cipro, Diflucan and metronidazole and sulfa SYSTEMS REVIEW Reviewed systems positive for that mentioned in history of present illness and noted in the past medical history in the EMR. All other systems reviewed are negative. PREVENTIVE She is updated on tetanus pertussis with Adacel VITAL SIGNS See EMR PHYSICAL EXAMINATION Well developed well nourished female in no acute distress. SKIN: Warm and dry. TMs are clear. Nares congested with yellow mucus tenderness over maxillary sinus. Throat clear. Mild anterior cervical lymphadenopathy. HEART: Regular rate and rhythm LUNGS: Clear to auscultation. ABDOMEN: Soft, nontender, hepatosplenomegaly. IMPRESSION/REPORT/PLAN Acute sinusitis with upper respiratory infection and cough. Amoxicillin 875 mg 1 2 times a day for 10 days. Encourage fluids, Tylenol for fever and discomfort and recheck if symptoms do not improve. Emi Garcia CNP/sallie Electronically Signed By: EMI GARCIA CNP On: 04/04/2013 12:04 PM Source: [facility] MHSDOLBEYNONRADSYS Document Id: [id number] MATIC OPERATOR documented in this encounter Miscellaneous Notes Miscellaneous - Emi Garcia APRN, C.N.P. - 04/03/2013 2:01 PM CST Ambulatory Patient Summary [address] [address] Visit Information Name: ISADORA BACK [facility] Number: [id number] Current Date: 04/03/2013 14:01:13 Physicians Attending Provider: EMI GARCIA CNP Primary Care Provider: LUISA GAUTHIER MD ISADORA [...] day x 10 day(s) New Routed to [address] [place] [id number] LORazepam (lorazepam 0.5 mg oral tablet) 1 Tablet(s), Oral, three times a day as needed for Anxiety Misc Prescription (Misc Prescription) 1 tab, Oral, once a day Acidphollis potassium citrate (potassium citrate) Oral sumatriptan (Imitrex 25 mg oral tablet) 1 Tablet(s), Oral, once as needed for Migraine headache repeat after one hour if needed Stop Taking the Following Medications: Medication list as of 04-03-13 14:01 Attention: If you have any medications at [...] Upcoming Appointments Date Time Location Reason Provider 04/07/2013 14:30 [facility] Mammo [facility] Room 1 04/14/2013 08:30 [facility] FamilyPra annual exam Beka SOTO, Luisa Dozier Attention: Contact your local Clinic if further appointment detail needed. Your Goals/Additional instructions: Source: [facility] POWERCHART Document Id: [id number] MATIC OPERATOR Miscellaneous - Emi Garcia APRN, C.N.P. - 04/03/2013 2:01 PM CST Ambulatory Depart Summary [address] [place] [address] Visit Information Name: ISADORA BACK [facility] Number: [id number] Visit Date: 04/03/2013 14:01:11 Attending Provider: EMI GARCIA CNP Primary Care Provider: LUISA GAUTHIER MD ISADORA [...] day x 10 day(s) New Routed to [address] [id number] LORazepam (lorazepam 0.5 mg oral tablet) 1 Tablet(s), Oral, three times a day as needed for Anxiety Misc Prescription (Misc Prescription) 1 tab, Oral, once a day Acidphollis potassium citrate (potassium citrate) Oral sumatriptan (Imitrex 25 mg oral tablet) 1 Tablet(s), Oral, once as needed for Migraine headache repeat after one hour if needed Stop Taking the Following Medications: Medication list as of 04-03-13 14:01 Attention: If you have any medications at home that are not on this list, DO NOT take them until youcontact your provider for clarification. Give a copy of your medication list to your primary care provider. Update your medication list any time medications or doses are changed and carry your medication list at all times in case of emergency. Additional Information: Source: [facility] POWERCHART Document Id: [id number] MATIC OPERATOR Miscellaneous - Junior Mcclendon LEldaP.N. - 04/03/2013 1:47 PM CST Adult Off Track Betting Manager Intake/History Adult Off Track Betting Manager Intake/History Entered On: 04/03/2013 13:48 BOREMATIC OPERATOR Performed On: 04/03/2013 13:47 BOREMATIC OPERATOR by JUNIOR MCCLENODN LPN Intake Chief Complaint : cold Temperature Core : 36.8 DegC(Converted to: 98.2 DegF) Peripheral Pulse Rate : 80 /min Respiratory Rate : 20 /min Heart Rhythm : Regular Systolic Blood Pressure : 108 mmHg Diastolic Blood Pressure : 58 mmHg NIBP Mean : 75 mmHg BP Location : Left upper extremity Blood Pressure Cuff Size : Regular Height : 162 cm(Converted to: 5 ft 4 inch(es), 63.78 inch(es)) Actual Weight : 58 kg(Converted to: 127 lb 14 oz) Weight Source : Standing scale Dosing Weight Clinic : 58 kg Clinic BSA : 1.62 Body Mass Index : 22.1 kg/m2 JUNIOR MCCLENDON PRINTING ESTIMATOR - 04/03/2013 13:47 BOREMATIC OPERATOR General Info Information Given By : Patient Languages : Croatian JUNIOR MCCLENDON LPN - 04/03/2013 13:47 BOREMATIC OPERATOR Subjective Pain Symptoms : No JUNIOR MCCLENDON LPN - 04/03/2013 13:47 BOREMATIC OPERATOR Dependent Habits Tobacco Use/Currently Using : No Smoking Status : Former smoker JUNIOR MCCLENDON LPN - 04/03/2013 13:47 BOREMATIC OPERATOR Tobacco Use Grid Last Use : quit 1970 JUNIOR MCCLENDON PRINTING ESTIMATOR - 04/03/2013 13:47 BOREMATIC OPERATOR Caffeine Use Grid Caffeine Use : Current Type : Coffee Frequency : Daily Amount : 4 Last Use : today JUNIOR MCCLENDON LPN 04/03/2013 13:47 BOREMATIC OPERATOR Recreational Drug Use Grid Drug Use : None JUNIOR MCCLENDON LPN - 04/03/2013 13:47 BOREMATIC OPERATOR Source: [facility] POWERCHART Document Id: [id number] BOREMATIC OPERATOR!39 MATIC OPERATOR documented in this encounter Plan of Treatment Not on filedocumented as of this encounter Visit Diagnoses Not on filedocumented in this encounter
--- OUTSIDE RECORDS SUMMARY | 2022-02-13 09:19 | XMS_ITS | Encounter Summary ---
:1945 Author Organization [facility] Address [address] [place] [address] Care Team Providers Name Role Phone Unavailable Primary Care Provider Unavailable Encounter Details Date Type Department Care Team Description 08/08/2013 Hospital Encounter HX [facility] Oc Barnett, CHILDCARE CENTER ADMINISTRATOR, C.N.P. [address] [place], [place] [address] (Wo rk) Social History [...] Sign Reading Time Taken Comments Blood Pressure 100/54 08/08/2013 3:01 PM CDT Pulse 75 08/08/2013 3:01 PM CDT Temperature - - Respiratory Rate - - Oxygen Saturation - - Inhaled Oxygen Concentration - - Weight 55.7 kg (122 lb 12.7 oz) 08/08/2013 3:01 PM CDT Height - - Body Mass Index 20.71 04/14/2013 8:41 AM WATER RIGHTS SPECIALIST documented in this encounter Medications at Time [...] Progress Notes Oc Zafar, ORION, C.N.P. 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 HISTORY OF PRESENT ILLNESS Isadora is a 68-year-old patient whom I last saw in the Department of Obstetrics and Gynecology on 07/11/2013 for her recurrent vaginitis. Please review my note from that date for her complete history. She recently finished antibiotic regimen, initially with Z-Jason and then with amoxicillin, as attempted treatment for her Ureaplasma symptoms. She notes that both antibiotics were effective for brief periods of time, but then gradually her symptoms did persist. She states that currently she is experiencing some mild discomfort in her urethra and a return of a mild vaginal odor. She is tolerating these symptoms okay at this point in time and did just finished her antibiotics a couple of days ago. Therefore, a culture at this point would likely not be beneficial. MEDICATIONS 1. Imitrex. 2. Lorazepam. 3. Acidophilus. 4. Potassium citrate. 5. ProAir HFA. 6. Tylenol. ALLERGIES 1. Ciprofloxacin, reaction tendinitis. 2. Diflucan, reaction blister and swelling of throat. 3. Metronidazole, reaction tendinitis. 4. Sulfa drugs, reaction nausea. SYSTEMS REVIEW Pertinent positives noted in HPI. Otherwise negative. PAST MEDICAL/SURGICAL HISTORY MEDICAL HISTORY: 1. Anxiety. 2. Diverticulitis. 3. Headaches. 4. Allergic rhinitis. 5. Atrophic vaginitis. SURGICAL HISTORY: 1. Colonoscopy, 11/10/2012. 2. Laparoscopic cholecystectomy, 2006. VITAL SIGNS Heart rate 75, blood pressure 100/54, weight 55.7. PHYSICAL EXAMINATION Not performed today. IMPRESSION/REPORT/PLAN Recheck for vaginitis history. PLAN: At this point, I encouraged Isadora to avoid antibiotics for a period of time if possible. It is too early to do any cultures at this point. She has no itching or burning, so it is unlikely that isabell developed a yeast infection at this point. She does not feel like she has a yeast infection. At this point, I have asked her to take a break from antibiotics and return to see me in approximately 2weeks if her symptoms become worse. If her symptoms resolve, she does not need to return. At that point, if symptoms continue and she returns in 2 weeks, I would want to re-culture both urine and vagina and at that point initiate appropriate treatments. At this point, she is agreeable to this plan, has no further concerns or questions, and will call to schedule an appointment in 2 weeks if necessary. Oc Zafar CNP/rolando Electronically Signed By: OC ZAFAR RN, CNP On: 08/09/2013 08:20 AM Source: [facility] MHSDOLBEYNONRADSYS Document Id: [id number] documented in this encounter Miscellaneous Notes Miscellaneous - Oc Zafar APRN, C.N.P. - 08/08/2013 3:18 PM CDT Ambulatory Patient Summary [address] [id number] Visit Information Name: ISADORA BACK [facility] Number: [id number] Current Date: 08/08/2013 15:18:24 Physicians Attending Provider: OC ZAFAR RN, CNP Primary Care Provider: LUI GAUTHIER MD [...] the Following Medications: Medication list as of 08-08-13 15:18 Attention: If you have any medications at [...] Signed By: OC ZAFAR RN, CNP Signed On:08-AUG-2013 15:18:17 Your Allergies & Intolerances Substance Reaction Symptoms [...] appointment detail needed. Your Goals/Additional instructions: Source: [facility] POWERCHART Document Id: [id number] Miscellaneous - Oc Zafar APRN, C.N.P. - 08/08/2013 3:18 PM CDT Ambulatory Discharge Medication List [address] [id number] Visit Information Name: ISADORA BACK [facility] Number: [id number] Visit Date: 08/08/2013 15:18:22 Attending Provider: OC ZAFAR RN INSPECTOR AND CLIPPER Primary Care Provider: LUI GAUTHIER MD ISADORA [...] the Following Medications: Medication list as of 08-08-13 15:18 Attention: If you have any medications at [...] emergency. Electronically Signed By: OC ZAFAR RN INSPECTOR AND CLIPPER Signed On:08-AUG-2013 15:18:17 Additional Information: Source: [facility] [employer] Document Id: [id number] Miscellaneous - Lauren Gamez RMigel - 08/08/2013 3:01 PM CDT Adult Commissary Officer Intake/History Adult Commissary Officer Intake/History Entered On: 08/08/2013 15:02 CDT Performed On: 08/08/2013 15:01 CDT by LAUREN CHAVEZ Intake Chief Complaint : recheck vaginal infection Peripheral Pulse Rate : 75 /min Systolic Blood Pressure : 100 mmHg Diastolic Blood Pressure : 54 mmHg NIBP Mean : 69 mmHg BP Location : Right upper extremity Blood Pressure Cuff Size : Regular Actual Weight : 55.7 kg(Converted to: 122 lb 13 oz) Dosing Weight Clinic : 55.7 kg LAUREN CHAVEZ - 08/08/2013 15:01 CDT General Info Languages : Lao LAUREN CHAVEZ - 08/08/2013 15:01 CDT Subjective Pain Symptoms : No LAUREN CHAVEZ - 08/08/2013 15:01 CDT Dependent Habits Tobacco Use/Currently Using : No Exposure to Tobacco Smoke : Other: quit smoking at age 22 Smoking Status : Former smoker LAUREN CHAVEZ - 08/08/2013 15:01 CDT Tobacco Use Grid Last Use : quit 1970 LAUREN CHAVEZ - 08/08/2013 15:01 CDT Caffeine Use Grid Caffeine Use : Current Type : Coffee, Soft drinks Frequency : Daily Amount : 4 Last Use : today LAUREN CHAVEZ - 08/08/2013 15:01 CDT Recreational Drug Use Grid Drug Use : None LAUREN CHAVEZ - 08/08/2013 15:01 CDT [facility] Document Id: [id number] CDT!32 documented in this encounter Plan of Treatment Not on filedocumented as of this encounter Visit Diagnoses Not on filedocumented in this encounter
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
--- OUTSIDE RECORDS SUMMARY | 2022-02-13 09:20 | XMS_ITS | Encounter Summary ---
:1945 Author Organization [facility] Address [address] [place] [address] Care Team Providers Name Role Phone Unavailable Primary Care Provider Unavailable Encounter Details Date Type Department Care Team Description 10/05/2012 Hospital Encounter [facility] Nacho Duenas, ORION, C.N.P., D. N.P. [address] [place], [place] [address] (Wo rk) Social History [...] Reading Time Taken Comments Blood Pressure 110/70 10/05/2012 11:16 AM CDT Pulse 90 10/05/2012 11:16 AM CDT Temperature - - Respiratory Rate [...] as of this encounter Progress Notes Abel Duenas APRN, C.N.P. - 10/05/2012 11:06 AM CDT [id number] CHIEF COMPLAINT/REASON FOR VISIT Bronchitis. HISTORY OF PRESENT ILLNESS The patient is a 67-year-old female who presents to the clinic for cold symptoms for 1 week. She complains of fatigue, shortness of breath, cough for 5 days, sinus pressure and ear pressure. She deniesfever, chills, vomiting, headache or chest pain. Patient has a history of intolerance of antibiotics. She did take an antibiotic from a previous prescription she had and started to feel better. She took Augmentin 875 mg twice however she does believe it is upsetting her stomach. She is requesting a prescription for amoxicillin. CURRENT MEDICATIONS See depart summary. ALLERGIES See EMR. PAST MEDICAL/SURGICAL HISTORY Unchanged. See EMR. SOCIAL HISTORY Unchanged. See EMR. FAMILY HISTORY Unchanged. See EMR. VITAL SIGNS See EMR. PHYSICAL EXAMINATION GENERAL: Ill-appearing female. No acute distress. SKIN: Warm, dry and pink. HEAD: Normocephalic. EYES: Conjunctivae clear. Sclerae are white. No drainage. EARS: Ear canals clear bilaterally. TMs dull with effusion. No erythema. NOSE: Nasal mucosa edematous and injected. THROAT: Posterior pharynx injected. No lesions or exudate. LYMPH: Moderate cervical lymphadenopathy. LUNGS: Clear to auscultation. No wheezes. HEART: Regular rate and rhythm. No murmurs. MENTAL: Alert and oriented to person, place and time. IMPRESSION/REPORT/PLAN Acute sinusitis. Patient will be given a prescription for amoxicillin 1000 mg twice a day for 10 days. Patient was instructed that it may be early use of antibiotics because it has not been a full 10 days of symptoms yet. Because she has already started a course of antibiotics she had left over, will treat. She should also increase her fluids, rest and take Tylenol and ibuprofen as needed for discomfort. If her symptoms worsen or do not improve she should return for reevaluation. Patient verbalizes understanding and agrees with plan of care. Abel Shafer CNP/jana Electronically Signed By: ABEL SHAFER CNP On: 10/13/2012 02:20 PM Source: [facility] [id number] Document Id: [id number] documented in this encounter Miscellaneous Notes Miscellaneous - Conversion, Historical Provider Ser - 10/05/2012 2:47 PM CDT Medication Refill Msg Document Contains Addenda Addendum by ELENO MORALES LPN on 05 October 2012 16:17:45 CDT faxed to pharmacy Addendum by LUI GAUTHIER MD on 05 October 2012 16:15:03 CDT From: LUI GAUTHIER MD To: LEVI JIMENEZ; Sent: 10/05/2012 16:15:03 CDT Subject: RE: Medication Refill Msg done From: LEVI JIMENEZ To: LUI GAUTHIER MD; Cc: ELENO MORALES LPN; Sent: 10/05/2012 14:47:47 CDT Subject: Medication Refill Msg Caller is: ( ) Patient ( ) Mother ( ) Father ( ) Spouse ( ) Daughter ( ) Son ( ) Pharmacy ( ) Other: Provider: [facility]: [facility] Name of Medications Needing Refill: Lorazepam 0.5mg tab Last Refill Date: 07/29/12, #10, 1 refill Additional Information: Last / Future Appointment: 08/05/12 Disposition: ( ) Send to Pharmacy ( ) Call to Pharmacy ( ) Patient will burr picker Script ( ) Mail Rx to Patient Source: [facility] Next Safety Document Id: [id number] Miscellaneous - Abel Duenas, ORION, C.N.P. - 10/05/2012 11:40 AM CDT Ambulatory Depart Summary [address] [address] Visit Information Name: ISADORA BACK [facility] Number: [id number] Visit Date: 10/05/2012 11:40:49 Attending Provider: ABEL SHAFER [facility] Primary Care Provider: LUI GAUTHIER MD FRANCIS ISADORA NIX has been given the following list of medications: Your Medications It is important to take your medications as directed. Use a pill box or chart to help remind you to take your medications. Please let your doctor or nurse know if you have problems taking your medications. Medication/Strength Dose Route Frequency Indications/Special Instructions/Comments amoxicillin (amoxicillin 500 mg oral capsule) 1,000 mg Oral two times a day for 10 Days Disregard order for tablets, prefers capsules Misc Prescription (Misc Prescription) 1 tab Oral once a day Acidphollis conjugated estrogens topical (Premarin 0.625 mg/g vaginal cream with applicator) 0.5 gm Vaginal 2 times a week potassium citrate (potassium citrate) Oral lorazepam (lorazepam 0.5 mg oral tablet) 0.5 mg Oral three times a day as needed for Anxiety albuterol (ProAir HFA 90 mcg/inh inhalation aerosol) 2 puff(s) Inhalation every 4 hours as needed for Wheezing sumatriptan (Imitrex 25 mg oral tablet) 25 mg Oral once as needed for Migraine headache repeat afterone hour if needed Attention: If you have any medications at home that are not on this list, DO NOT take them until youcontact your provider for clarification. Additional Information: Source: [facility] POWERCHART Document Id: [id number] Miscellaneous - Abel Duenas APRN, C.N.P. - 10/05/2012 11:40 AM CDT Ambulatory Patient Summary [address] [address] Visit Information Name: ISADORA BACK [facility] Number: [id number] Visit Date: 10/05/2012 11:40:50 Attending Provider: ABEL SHAFER [facility] Primary Care Provider: LUI GAUTHIER MD ISADORA BACK has been given the following list of medications: Your Medications It is important to take your medications as directed. Use a pill box or chart to help remind you to take your medications. Please let your doctor or nurse know if you have problems taking your medications. Medication/Strength Dose Route Frequency Indications/Special Instructions/Comments amoxicillin (amoxicillin 500 mg oral capsule) 1,000 mg Oral two times a day for 10 Days Disregard order for tablets, prefers capsules Misc Prescription (Misc Prescription) 1 tab Oral once a day Acidphollis conjugated estrogens topical (Premarin 0.625 mg/g vaginal cream with applicator) 0.5 gm Vaginal 2 times a week potassium citrate (potassium citrate) Oral lorazepam (lorazepam 0.5 mg oral tablet) 0.5 mg Oral three times a day as needed for Anxiety albuterol (ProAir HFA 90 mcg/inh inhalation aerosol) 2 puff(s) Inhalation every 4 hours as needed for Wheezing sumatriptan (Imitrex 25 mg oral tablet) 25 mg Oral once as needed for Migraine headache repeat afterone hour if needed Attention: If you have any medications at home that are not on this list, DO NOT take them until youcontact your provider for clarification. Additional Information: Source: [facility] Next Safety Document Id: [id number] Miscellaneous - Conversion, Historical Provider Ser - 10/05/2012 11:16 AM CDT Adult Social Studies Department Chair Intake/History Adult Social Studies Department Chair Intake/History Entered On: 10/05/2012 11:18 CDT Performed On: 10/05/2012 11:16 CDT by AUGUSTUS GUERRERO Intake Chief Complaint : bronchitis Temperature Core : 37.2 DegC(Converted to: 99.0 DegF) Peripheral Pulse Rate : 90 /min Systolic Blood Pressure : 110 mmHg Diastolic Blood Pressure : 70 mmHg NIBP Mean : 83 mmHg SpO2 : 97 % Oxygen Therapy : Room air AUGUSTUS GUERRERO - 10/05/2012 11:16 CDT General Info Information Given By : Patient Preferred Communication Mode : Verbal Languages : Kosovan AUGUSTUS GUERRERO - 10/05/2012 11:16 CDT Subjective Pain Symptoms : No AUGUSTUS GUERRERO - 10/05/2012 11:16 CDT Dependent Habits Tobacco Use/Currently Using : No Smoking Status : Former smoker AUGUSTUS GUERRERO - 10/05/2012 11:16 CDT Tobacco Use Grid Last Use : quit 1970 AUGUSTUS GUERRERO - 10/05/2012 11:16 CDT [facility] Document Id: [id number] CDT!22 documented in this encounter Plan of Treatment Not on filedocumented as of this encounter Visit Diagnoses Not on filedocumented in this encounter
--- OUTSIDE RECORDS SUMMARY | 2022-02-13 09:20 | XMS_ITS | Encounter Summary ---
:1945 Author Organization [facility] Address [address] [place] [address] Care Team Providers Name Role Phone Unavailable Primary Care Provider Unavailable Encounter Details Date Type Department Care Team Description 01/04/2013 Hospital Encounter [facility]X [facility] Oc Barnett, PIN DRAFTING MACHINE TENDER, C.N.P. [address] [place], [place] [phone] (Wo rk) [...] Sign Reading Time Taken Comments Blood Pressure 120/60 01/04/2013 4:10 PM CDT Pulse 72 01/04/2013 4:10 PM CDT Temperature - - Respiratory Rate - - Oxygen Saturation - - Inhaled Oxygen Concentration - - Weight 56.7 kg (125 lb) 01/04/2013 4:10 PM CDT Height - - Body Mass Index 21.6 08/05/2012 3:40 PM CDT documented in this encounter Medications [...] Progress Notes Oc Zafar, ORION, C.N.P. - 01/04/2013 4:05 PM CDT [id number] CHIEF COMPLAINT/REASON FOR VISIT Continued vaginal irritation. HISTORY OF PRESENT ILLNESS Isadora is a 67-year-old patient whom I last saw in the Department of Obstetrics and Gynecology on 2012 for her vaginal concerns. Please review my note from that date for her complete history. Atthat point she was diagnosed with Ureaplasma and treated with doxycycline 100 mg twice daily for 10 days. Her was also treated. She notes that after that treatment her symptoms did improve but then she developed a vulvar vaginal yeast infection. She did self- treat with [id number] Monistat at that point but she notes that her symptoms really have not improved. She was in to the [facility] to see her primary care provider Soledad Shafer CNP on December 30, 2012. Please review her note from that date for her complete history. Recent history, she describes vaginal itching, irritation and swelling. At that visit she did perform a wet prep which came back negative and also had another culture for Ureaplasma and a fungal culture performed, both of which are currently pending. She was given a printed handout on vulvar hygiene and reiterated overall good vaginal vulvar care practices. She was sent to me for followup. At this point she remains unchanged in regard to her status. She has been using the Estrace cream on a daily basis over the last week but unfortunately test results are still pending. CURRENT MEDICATIONS 1. Estrace vaginal cream. 2. Imitrex. 3. Lorazepam. 4. Acidophilus. 5. Potassium citrate. 6. ProAir HFA inhalation aerosol. ALLERGIES 1. Ciprofloxacin reaction tendonitis. 2. Diflucan reaction blister and swelling of throat. 3. Metronidazole reaction tendonitis. 4. Sulfa drugs reaction nausea. PAST MEDICAL / SURGICAL HISTORY 1. Atrophic vaginitis. 2. Diverticulitis. 3. Migraine headaches. 4. Allergic rhinitis. SURGICAL HISTORY: 1. Colonoscopy 12/08/2007. 2. Laparoscopic cholecystectomy 2006. VITAL SIGNS HEART RATE: 72. BLOOD PRESSURE: 120/60. WEIGHT: 56.7. PHYSICAL EXAMINATION GENERAL: She is a well-appearing female in no acute distress. LABORATORY DATA: Previously obtained vaginal cultures are still pending therapy. IMPRESSION / REPORT / PLAN 1. Continued vaginal irritation. PLAN: At this point tests are pending. We will await those for results. We have discussed possible alternative therapies that may be beneficial for her in reestablishing balance of her healthy normal vaginal agusto. I will plan to contact her as soon as I get those results. If these results are negative then I think it reasonable to investigate for some more rare vaginal conditions. This was discussedwith Isadora in detail and I will plan to be in touch with her in this regard. I will also keep the lines of communication open between Ms. Shafer her primary care provider and myself as well. At this point Isadora was pleased with this discussion, has no further questions and she will await her results and an explanation of these results. Oc Zafar CNP/lorin Electronically Signed By: OC ZAFAR RN, CNP On: 01/06/2013 09:55 AM Source: [facility] MHSDOLBEYNGETACHEW Document Id: [id number] documented in this encounter Miscellaneous Notes Miscellaneous - Oc Zafar APRN, C.N.P. - 01/04/2013 4:42 PM CDT Ambulatory Depart Summary [address] [address] Visit Information Name: ISADORA BACK [facility] Number: [id number] Visit Date: 01/04/2013 16:42:30 Attending Provider: OC ZAFAR RN SUPERVISOR [employer]ING [employer]MING Primary Care Provider: LUI GAUTHIER MD ISADORA BACK has been given the following list of medications: Your Medications It is important to take your medications as directed. Use a pill box or chart to help remind you to take your medications. Please let your doctor or nurse know if you have problems taking your medications. Medication/Strength Dose Route Frequency Indications/Special Instructions/Comments/Notes LORazepam (lorazepam 0.5 mg oral tablet) 0.5 mg Oral three times a day as needed for Anxiety estradiol topical (Estrace Vaginal 0.1 mg/g vaginal cream) See Instructions Insert 1/2 gram into thevagina 2 to 3 times per week. Can also apply pea-size amount to opening of vagina 2 to 3 times per week. Misc Prescription (Misc Prescription) 1 tab Oral once a day Acidphollis potassium citrate (potassium citrate) Oral albuterol (ProAir HFA 90 mcg/inh inhalation [...] your provider for clarification. Additional Information: Source: [facility] POWERCHART Document Id: [id number] Miscellaneous - Oc Zafar APRN, C.N.P. - 01/04/2013 4:42 PM CDT Ambulatory Patient Summary [address] [address] Visit Information Name: ISADORA BACK [facility] Number: [id number] Current Date: 01/04/2013 16:42:31 Physicians Attending Provider: OC ZAFAR RN SUPERVISOR [employer] Primary Care Provider: LUI GAUTHIER MD Your Medications Here is a list of your medications. It is important to take your medications as directed. Use a pillbox or chart to help remind you to take your medications. Please let your doctor or nurse know if you have problems taking your medications. Medication/Strength Dose Route Frequency Indications/Special Instructions/Comments/Notes LORazepam (lorazepam 0.5 mg oral tablet) 0.5 mg Oral three times a day as needed for Anxiety estradiol topical (Estrace Vaginal 0.1 mg/g vaginal cream) See Instructions Insert 1/2 gram into thevagina 2 to 3 times per week. Can also apply pea-size amount to opening of vagina 2 to 3 times per week. Misc Prescription (Misc Prescription) 1 tab Oral once a day Acidphollis potassium citrate (potassium citrate) Oral albuterol (ProAir HFA 90 mcg/inh inhalation aerosol) 2 puff(s) Inhalation every 4 hours as needed for Wheezing sumatriptan (Imitrex 25 mg oral tablet) 25 mg Oral once as needed for Migraine headache repeat afterone hour if needed Attention: If you have any medications at home that are not on this list, DO NOT take them until youcontact your provider for clarification. Your Allergies & Intolerances Substance Reaction Symptoms Category Comments ciprofloxacin Tendonitis Drug sulfa drugs nausea Drug Diflucan blister Drug Diflucan swelling of throat Drug metroNIDAZOLE Tendonitis Drug Your Problem List Problem Status Onset Comments Migraine headache Active Rhinitis, Allergic Active Diverticulitis of colon NOS Active Atrophic vaginitis Active Your Upcoming Appointments Date Time Location Reason Provider No Appointments found Your Goals/Additional instructions: Source: [facility] POWERCHART Document Id: [id number] Miscellaneous - Lauren Gamez RMigel - 01/04/2013 4:10 PM CDT Adult Police Chief Intake/History Adult Police Chief Intake/History Entered On: 01/04/2013 16:10 CDT Performed On: 01/04/2013 16:10 CDT by LAUREN CHAVEZ Intake Chief Complaint : vaginal irritation Peripheral Pulse Rate : 72 /min Systolic Blood Pressure : 120 mmHg Diastolic Blood Pressure : 60 mmHg NIBP Mean : 80 mmHg BP Location : Right upper extremity Blood Pressure Cuff Size : Regular Actual Weight : 56.7 kg(Converted to: 125 lb 0 oz) Dosing Weight Clinic : 56.7 kg LAUREN CHAVEZ - 01/04/2013 16:10 CDT General Info Languages : Kinyarwanda LAUREN CHAVEZ - 01/04/2013 16:10 CDT Subjective Pain Symptoms : No LAUREN CHAVEZ - 01/04/2013 16:10 CDT Dependent Habits Tobacco Use/Currently Using : No Smoking Status : Former smoker LAUREN CHAVEZ - 01/04/2013 16:10 CDT Tobacco Use Grid Last Use : quit 1970 LAUREN CHAVEZ - 01/04/2013 16:10 CDT Source: [facility] Document Id: [id number] CDT!21 documented in this encounter Plan of Treatment Not on filedocumented as of this encounter Visit Diagnoses Not on filedocumented in this encounter
--- OUTSIDE RECORDS SUMMARY | 2022-02-13 09:20 | XMS_ITS | Encounter Summary ---
:1945 Author Organization [facility] Address [address] [place] [address] Care Team Providers Name Role Phone Unavailable Primary Care Provider Unavailable Encounter Details Date Type Department Care Team Description 04/25/2012 Hospital Encounter HX [facility] FBHB BONE DENS Luisa Crockett i, M.D. [address] [place] [address] (Wo rk) Social History Tobacco [...] Encounter - Conversion, Historical Provider Ser - 06/01/2012 4:09 PM CST Phone Message Document Contains Addenda Addendum by AUGUSTUS GUERRERO on 01 June 2012 16:49:52 GEOMAGNETICIAN Patient notified. Addendum by ABEL MENDEZ CNP on 01 June 2012 16:12:58 GEOMAGNETICIAN From: ABEL MENDEZ CNP To: MARCIO Lee Nurse; Sent: 06/01/2012 16:12:58 GEOMAGNETICIAN Subject: RE: Phone Message Changed to Z-ck. May be viral and antibiotics wouldn't work. From: AUGUSTUS GUERRERO (MARCIO Lee Nurse) To: ABEL MENDEZ CNP; Sent: 06/01/2012 16:09:45 GEOMAGNETICIAN Subject: Phone Message Caller is: ( x) Patient ( ) Mother ( ) Father ( ) Spouse ( ) Daughter ( ) Son ( ) Pharmacy ( ) Other: Physician: Patient MRN #: Reason for Call: Message: Patient called and said that the Amoxicillan doesn't seem to be wroking. Advice/Action: Source used: ( ) Verbalizes understanding [...] back cell phone number ( ) [facility] P[facility] Document Id: [id number] documented in this encounter Plan of Treatment Not on filedocumented as of this encounter Visit Diagnoses Not on filedocumented in this encounter
--- OUTSIDE RECORDS SUMMARY | 2022-02-13 09:20 | XMS_ITS | Encounter Summary ---
:1945 Author Organization [facility] Address [address] [place] [address] Care Team Providers Name Role Phone Unavailable Primary Care Provider Unavailable Encounter Details Date Type Department Care Team Description 12/30/2012 Hospital Encounter HX [facility]ILY[facility] Nacho Duenas, ORION, C.N.P., D. N.P. [address] [place], [place] [address] (Wo rk) Social History [...] Sign Reading Time Taken Comments Blood Pressure 94/70 12/30/2012 9:38 AM CDT Pulse 72 12/30/2012 9:38 AM CDT Temperature - - Respiratory Rate 16 12/30/2012 9:38 AM CDT Oxygen Saturation - - Inhaled Oxygen Concentration - - Weight 56.5 kg (124 lb 9 oz) 12/30/2012 9:38 AM CDT Height - - Body Mass Index 21.53 08/05/2012 3:40 PM CDT documented in this [...] Progress Notes Abel Duenas APRN, C.N.P. - 12/30/2012 9:33 AM CDT [id number] CHIEF COMPLAINT/REASON FOR VISIT Vaginal irritation. HISTORY OF PRESENT ILLNESS The patient is a 67-year-old female who presents to the clinic for vaginal irritation. Patient complains of vaginal itching, irritation and swelling. She was seen by Abel Trujillo on November 16, 2012 and was treated for a ureaplasma. She states that she did complete 9 days of the doxycycline. However she did not take the final 3 tablets because she did not like the way it made her feel. She thought that she might be getting a yeast infection due to being on antibiotic and she did do Monistat and it made her feel better for a couple days, however the irritation returned. She states the last use of Monistat was 4 days ago. Last sexual intercourse was on Day. She has continued to use the Estrace prescribed by Abel Trujillo. She states that she is very concerned that her vaginal secretions areincreased and it is milky and not clear. She denies fever, chills, nausea, vomiting, shortness of breath or chest pain. CURRENT MEDICATIONS See depart summary. ALLERGIES See EMR PAST MEDICAL/SURGICAL HISTORY Unchanged see EMR SOCIAL HISTORY Unchanged see EMR FAMILY HISTORY Unchanged see EMR VITAL SIGNS See EMR PHYSICAL EXAMINATION GENERAL: Well-appearing female in no acute distress. GENITALIA: External genitalia appropriate for age. Normal female coarse pubic hair distribution. Patient's external genitalia is slightly erythematous and swollen. No lesions noted. Three swabs were obtained. MENTAL: Alert and oriented to person, place and time. IMPRESSION/REPORT/PLAN 1. Vaginitis. At this time, will collect a wet prep and notify her of the results. We will also obtain the ureaplasma and fungal culture as well. If wet prep does not come back positive for yeast, I will not treat. I will go ahead and have the patient follow back up with Abel Trujillo next week for r eevaluation. Patient was given printed out on vulvar hygiene. Patient states that she does not wear underwear at bedtime and she does wear cotton underwear. She was instructed to avoid placing any products in her vaginal area. Patient verbalizes understanding and agrees with plan of care. She will follow up with Abel next week. Abel Shafer CNP/sallie Electronically Signed By: ABEL SHAFER CNP On: 02/01/2013 03:08 PM Source: [facility] MHSDOLBEYNONRADSYS Document Id: [id number] documented in this encounter Miscellaneous Notes Miscellaneous - Abel Duenas APRN, C.N.P. - 01/07/2013 9:59 AM CDT Results Notification Document Contains Addenda Addendum by AUGUSTUS GUERRERO on 10 January 2013 16:57:09 CDT notfiied. From: ABEL SHAFER STAFF COUNSELOR To: [facility] Medicine Nurse; Sent: 01/07/2013 09:59:30 CDT ! Show up: 01/07/2013 14:59:30 [place] Subject: Results Notification Actions: Notify patient of results Reminder Comments: No fungal growth after 7 days. Results: Date Result Name Value 12/30/2012 11:43 Gamaliel Vag Rslt-Leiva See Comment Source: [facility] CO-ValueCHART Document Id: [id number] Electronically signed by Conversion, [facility] Pressure Control Supervisor [id number] at 09/16/2016 5:53 PM CDT Miscellaneous - Abel Duenas APRN, C.N.P. - 12/30/2012 12:48 PM CDT Results Notification Document Contains Addenda Addendum by AUGUSTUS GUERRERO on 02 January 2013 15:29:52 CDT notified. has an apt. with abel [place]. Addendum by AUGUSTUS GUERRERO on 02 January 2013 11:23:39 CDT unable to reach. From: ABEL SHAFER CNP To: [facility] Medicine Nurse; Sent: 12/30/2012 12:48:47 CDT ! Show up: 12/30/2012 17:48:47 [place] Subject: Results Notification Actions: Notify patient of results Reminder Comments: negative for yeast. 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 Intake/History Entered On: 12/30/2012 9:41 CDT Performed On: 12/30/2012 9:38 CDT by AUGUSTUS GUERRERO Intake Chief Complaint : infection in vaginal area Temperature Core : 36.9 DegC(Converted to: 98.4 DegF) Peripheral Pulse Rate : 72 /min Respiratory Rate : 16 /min Heart Rhythm : Regular Systolic Blood Pressure : 94 mmHg Diastolic Blood Pressure : 70 mmHg NIBP Mean : 78 mmHg BP Location : Right upper extremity Blood Pressure Cuff Size : Regular Actual Weight : 56.5 kg(Converted to: 124 lb 9 oz) Weight Source : Standing scale Dosing Weight Clinic : 56.5 kg AUGUSTUS GUERRERO [facility] 12/30/2012 9:38 CDT General Info Information Given By : Patient Preferred Communication Mode : Verbal Languages : Malay AUGUSTUS GUERRERO [facility] 12/30/2012 9:38 CDT Subjective Pain Symptoms : Yes AUGUSTUS GUERRERO 12/30/2012 9:38 CDT Dependent Habits Tobacco Use/Currently Using : No Tobacco Use/Last 12 months : No Smoking Status : Former smoker AUGUSTUS GUERRERO [facility] 12/30/2012 9:38 CDT Tobacco Use Grid Last Use : quit 1969 AUGUSTUS GUERRERO [facility] 12/30/2012 9:38 CDT Source: [employer] Document Id: [id number] CDT!28 documented in this encounter Plan of Treatment Not on filedocumented as of this encounter Procedures Procedure Name Priority Date/Time Associated Comments Diagnosis BACTERIAL CULTURE, Routine 12/30/2012 11:58 AM Re sults for this AEROBIC CDT procedure are i n the results section. GAMALIEL VAG RSLT Routine 12/30/2012 11:43 AM Results for this CDT procedure are i n the results section. WET PREP EXAM, Routine 12/30/2012 11:43 AM Result s for this UROGENITAL CDT procedure are i n the results section. documented in this encounter Results Bacterial Culture, Aerobic (12/30/2012 11:58 AM CDT) [facility] gist Method Time Signature HXCulture POWERCHART Genital HXFinal See POWERCHART scanned/paper report. Test performed at [facility]. Specimen (Source) Anatomical Collection Method Collection Time Re ceived Time Location / / Volume Laterality Vagina 12/30/2012 11:58 AM CDT Abel Duenas APRN, C.N.P., D.N.P. LAB MICROBIOLOGY - GENERAL ORDERABLES Performing Organization Address [facility] Phon e Number POWERCHART HX-Gamaliel Vag Rslt (12/30/2012 11:43 AM CDT) Patholo gist Method Time Signature Fungal See Comment POWERCHART Culture, Vaginal Specimen (Source) Anatomical Collection Method Collection Time Re ceived Time Location / / Volume Laterality 12/30/2012 11:43 AM CDT Narrative POWERCHART - 01/07/2013 1:15 AM CDT SOURCE: VAGINA, vaginal FUNGAL CULTURE, VAGINAL ?FINAL No growth after 7 days of incubation. Test Performed by: [place] [address] Clamp Operator: Varinder tucker III, M.D. Vida Hodge APRN.PElda, D.N.P. LAB HISTORICAL O RDERS Performing Organization Address [facility] Phon e Number POWERCHART Wet Prep Exam, Urogenital (12/30/2012 11:43 AM CDT) P athologist Signature HXWet Prep POWERCHART HXFinal No yeast, POWERCHART Trichomonas , clue cells, or sperm seen. Specimen (Source) Anatomical Collection Method Collection Time Re ceived Time Location / / Volume Laterality Vagina 12/30/2012 11:43 AM CDT Jovani Hodge APRN.N.P., D.N.P. LAB MICROBIOLOGY - GENERAL ORDERABLES Performing Organization Address [facility] Phon e Number POWERCHART documented in this encounter Visit Diagnoses Not on filedocumented in this encounter
--- OUTSIDE RECORDS SUMMARY | 2022-02-13 09:20 | XMS_ITS | Encounter Summary ---
:1945 Author Organization [facility] Address [address] [place] [address] Care Team Providers Name Role Phone Unavailable Primary Care Provider Unavailable Encounter Details Date Type Department Care Team Description 09/06/2012 Hospital Encounter HX [facility] FBKF FAMILYPRA Nacho Duenas, ORION, C.N.P., D. N.P. [address] [place], [place] [address] (Wo rk) Social History [...] Sign Reading Time Taken Comments Blood Pressure 110/72 09/06/2012 2:33 PM CDT Pulse 64 09/06/2012 2:33 PM CDT Temperature - - Respiratory Rate 16 09/06/2012 2:33 PM CDT Oxygen Saturation - - Inhaled Oxygen Concentration - - Weight 57 kg (125 lb 10.6 oz) 09/06/2012 2:33 PM CDT Height - - Body Mass Index 21.72 08/05/2012 3:40 PM CDT documented in this encounter Medications at Time of Discharge Medication Sig Dispensed Refills Start Date End Date calcium carbonate-vitamin Chew 1 tablet. 0 2009 D3 1,250 mg (500 mg calcium)-400 unit per chewable tablet multivitamin tablet Take 1 tablet by 0 06/28/2009 mouth. documented as of this encounter Progress Notes Abel Duenas APRN, C.N.P. - 09/06/2012 2:29 PM CDT [id number] CHIEF COMPLAINT/REASON FOR VISIT Bladder infection. HISTORY OF PRESENT ILLNESS The patient is a 67-year-old female who presents to the clinic for dysuria for 2 to 3 weeks. Patientstates that she has a pain across her urethra when she urinates. She feels like she has to go to [facility] and it lisa. She started cranberry juice and it did not change her symptoms. She does complain of flank pain and nausea. She denies fever, chills, vomiting, shortness of breath or chest pain.Patient does have a history of vaginal atrophy and was previously started on Premarin cream. Patientstates that she discontinued the medication because it triggered her headaches. Patient states as she has aged her headaches have improved. CURRENT MEDICATIONS See depart summary. ALLERGIES See EMR. PAST MEDICAL/SURGICAL HISTORY Unchanged, see EMR. SOCIAL HISTORY The patient is and has 3 children and she is retired. She denies tobacco use. FAMILY HISTORY Unchanged, see EMR. VITAL SIGNS See EMR. PHYSICAL EXAMINATION GENERAL: Well-appearing female in no acute distress. SKIN: Warm, dry and pink. HEAD: Normocephalic. LYMPH: No cervical lymphadenopathy. LUNGS: Clear to auscultation. No wheezes, rales or rhonchi. BACK: No CVA tenderness. HEART: Regular rate and no murmurs. ABDOMEN: Flat, soft, nondistended. No organomegaly or masses. Some suprapubic tenderness noted. Bowel sounds present x4 quadrants. MENTAL: Alert and oriented to person, place and time. IMPRESSION/REPORT/PLAN 1. Dysuria. We will obtain a UA and it was negative. Patient was instructed that she most likely does not have a urinary tract infection. We did obtain a wet prep and it was negative for yeast or bacterial vaginosis. We will continue to monitor for new or worsening symptoms. 2. Atrophic vaginitis. Patient will resume her Premarin cream. This can be applied twice a week. Patient does not insert full applicator, but rather she places it vaginally with her finger. Patient does have concerns about headache possibly returning, but she complains of vaginal dryness and if these symptoms are contributing to her dysuria as well. Patient will resume medication. If she has any difficulties with resuming the Premarin, she will notify me. If the pain worsens, I did suggest that she see Nivia Trujillo for a full pelvic exam. Patient verbalizes understanding and agrees with plan of care. Abel Shafer CNP/merced Electronically Signed By: ABEL SHAFER CNP On: 10/04/2012 01:17 PM Source: [facility] MHSDOLBEYNONRADSYS Document Id: [id number] documented in this encounter Procedure Notes Conversion, Historical Provider Ser - 09/06/2012 3:17 PM CDT Urine Dipstick Urine Dipstick Entered On: 09/06/2012 15:18 CDT Performed On: 09/06/2012 15:17 CDT by AUGUSTUS GUERRERO Urine Dipstick UA Color POC : Colorless UA Appear POC : Clear UA Leuk POC : Negative UA Nitrite POC : Negative UA Urobilinogen POC : 0.2 mg/dl UA Protein POC : Negative UA pH POC : 6.5 UA Blood POC : Negativ UA Spec Grav POC : 1.010 UA Bili POC : Negative UA Glucose POC : Negative Test Strip Lot # : [id number] Test Strip Expiration Date : AUGUSTUS GUERRERO - 09/06/2012 15:17 CDT Source: [facility] [employer] Document Id: [id number] CDT!15 documented in this encounter Miscellaneous Notes Miscellaneous - Abel Duenas, ORION, C.N.P. - 09/06/2012 5:56 PM CDT Ambulatory [place] [address] Visit Information Name: ISADORA BACK [facility] Number: [id number] Current Date: 09/06/2012 17:56:18 Physicians Attending Provider: ABEL SHAFER [facility] Primary Care Provider: LUI GAUTHIER MD Your Medications Here is a list of your medications. It is important to take your medications as directed. Use a pillbox or chart to help remind you to take your medications. Please let your doctor or nurse know if you have problems taking your medications. Medication/Strength Dose Route Frequency Indications/Special Instructions/Comments conjugated estrogens topical (Premarin 0.625 mg/g vaginal [...] No Appointments found Your Goals/Additional instructions: Source: [facility] POWERCHART Document Id: [id number] Miscellaneous - Abel Duenas APRN, C.N.P. - 09/06/2012 5:56 PM CDT Ambulatory Depart Summary [address] [address] Visit Information Name: ISADORA BACK [facility] Number: [id number] Visit Date: 09/06/2012 17:56:18 Attending Provider: ABEL SHAFER CNP Primary Care Provider: LUI GAUTHIER MD FRANCIS ISADORA NIX has been given the following list of medications: Your Medications It is important to take your medications as directed. Use a pill box or chart to help remind you to take your medications. Please let your doctor or nurse know if you have problems taking your medications. Medication/Strength Dose Route Frequency Indications/Special Instructions/Comments conjugated estrogens topical (Premarin 0.625 mg/g vaginal [...] your provider for clarification. Additional Information: Source: [facility] [employer] AppCHART Document Id: [id number] Miscellaneous - Abel Duenas APRN, C.N.P. - 09/06/2012 5:16 PM CDT Results Notification Document Contains Addenda Addendum by AUGUSTUS GUERRERO on 09 Sep 2012 16:46:32 CDT 2 unsucessful attempts to call will mail results. From: ABEL SHAFER VEGETABLE TIER [facility]; Sent: 09/06/2012 17:16:20 CDT ! Show up: 09/06/2012 22:16:20 [facility] Subject: Results Notification Actions: Notify patient of results Reminder Comments: No yeast, Trich, or BV. (Negative wet prep) Results: Date Result Type Ind Result Name 09/06/2012 MBO Review WET Prep WBC's Source: [facility] [employer] AppCHART Document Id: [id number] Electronically signed by Yfn, [facility] [place] Inspector Repairer [id number] at 09/16/2016 2:03 PM CDT Miscellaneous - Conversion, Historical Provider Ser - 09/06/2012 2:33 PM CDT Adult Hospital Unit Coordinator Intake/History Adult Hospital Unit Coordinator Intake/History Entered On: 09/06/2012 14:37 CDT Performed On: 09/06/2012 14:33 CDT by AUGUSTUS GUERRERO Intake Chief Complaint : bladder infection Onset of Symptoms : 2-3 weeks Temperature Core : 36.9 DegC(Converted to: 98.4 DegF) Peripheral Pulse Rate : 64 /min Respiratory Rate : 16 /min Systolic Blood Pressure : 110 mmHg Diastolic Blood Pressure : 72 mmHg NIBP Mean : 85 mmHg BP Location : Right upper extremity Blood Pressure Cuff Size : Regular Actual Weight : 57.0 kg(Converted to: 125 lb 11 oz) Weight Source : Standing scale Dosing Weight Clinic : 57 kg AUGUSTUS GUERRERO 09/06/2012 14:33 CDT General Info Information Given By : Patient Preferred Communication Mode : Verbal Languages : Upper Sorbian AUGUSTUS GUERRERO 09/06/2012 14:33 CDT Subjective Pain Symptoms : No AUGUSTUS GUERRERO 09/06/2012 14:33 CDT Dependent Habits Tobacco Use/Currently Using : No Smoking Status : Never smoker AUGUSTUS GUERRERO 09/06/2012 14:33 CDT Tobacco Use Grid Last Use : quit 1970 AUGUSTUS GUERRERO 09/06/2012 14:33 CDT [facility] Document Id: [id number] CDT!27 documented in this encounter Plan of Treatment Not on filedocumented as of this encounter Procedures Procedure Name Priority Date/Time Associated Comments Diagnosis HX UA NITRITE POC Routine 09/06/2012 3:18 PM Resu lts for this CDT procedure are i n the results section. HX UA GLUCOSE POC Routine 09/06/2012 3:18 PM Resu lts for this CDT procedure are i n the results section. HX UA APPEAR POC Routine 09/06/2012 3:18 PM Resul ts for this CDT procedure are i n the results section. DIPSTICK, POCT, U Routine 09/06/2012 3:18 PM Resu lts for this (DIPC1) CDT procedure are i n the results section. DIPSTICK, POCT, U Routine 09/06/2012 3:18 PM Resu lts for this (DIPC1) CDT procedure are i n the results section. DIPSTICK, POCT, U Routine 09/06/2012 3:18 PM Resu lts for this (DIPC1) CDT procedure are i n the results section. DIPSTICK, POCT, U Routine 09/06/2012 3:18 PM Resu lts for this (DIPC1) CDT procedure are i n the results section. DIPSTICK, POCT, U Routine 09/06/2012 3:18 PM Resu lts for this (DIPC1) CDT procedure are i n the results section. DIPSTICK, POCT, U Routine 09/06/2012 3:18 PM Resu lts for this (DIPC1) CDT procedure are i n the results section. DIPSTICK, POCT, U Routine 09/06/2012 3:18 PM Resu lts for this (DIPC1) CDT procedure are i n the results section. DIPSTICK, POCT, U Routine 09/06/2012 3:18 PM Resu lts for this (DIPC1) CDT procedure are i n the results section. WET PREP EXAM, Routine 09/06/2012 3:03 PM Results for this UROGENITAL CDT procedure are i n the results section. documented in this encounter Results HX UA GLUCOSE POC (09/06/2012 3:18 PM CDT) P athologist Signature Glucose, POCT, Negative POWERCHART U Specimen (Source) Anatomical Collection Method Collection Time Re ceived Time Location / / Volume Laterality 09/06/2012 3:18 PM CDT Historical Provider LAB HISTORICAL ORDERS Performing Organization Address City/State/ZIP Code Phon e Number POWERCHART Dipstick, POCT, Urine (lab) (09/06/2012 3:18 PM CDT) athologist Signature Bilirubin, Negative POWERCHART POCT, U Specimen (Source) Anatomical Collection Method Collection Time Re ceived Time Location / / Volume Laterality 09/06/2012 3:18 PM CDT Historical Provider LAB POCT ORDERABLES - DEVICE Performing Organization Address [facility] Phon e Number POWERCHART Dipstick, POCT, Urine (lab) (09/06/2012 3:18 PM CDT) P athologist Signature Specific 1.010 POWERCHART [place], POCT, U Specimen (Source) Anatomical Collection Method Collection Time Re ceived Time Location / / Volume Laterality 09/06/2012 3:18 PM CDT Historical Provider LAB POCT ORDERABLES - DEVICE Performing Organization Address [facility]/ZIP Code Phon e Number POWERCHART Dipstick, POCT, Urine (lab) (09/06/2012 3:18 PM CDT) P athologist Signature Blood, POCT, U Negative POWERCHART Specimen (Source) Anatomical Collection Method Collection Time Re ceived Time Location / / Volume Laterality 09/06/2012 3:18 PM CDT Historical Provider LAB POCT ORDERABLES - DEVICE Performing Organization Address City/State/ZIP Code Phon e Number POWERCHART Dipstick, POCT, Urine (lab) (09/06/2012 3:18 PM CDT) P athologist Signature pH, POCT, Urine 6.5 POWERCHART Specimen (Source) Anatomical Collection Method Collection Time Re ceived Time Location / / Volume Laterality 09/06/2012 3:18 PM CDT Historical Provider LAB POCT ORDERABLES - DEVICE Performing Organization Address [facility]/ZIP Code Phon e Number POWERCHART Dipstick, POCT, Urine (lab) (09/06/2012 3:18 PM CDT) P athologist Signature Protein, POCT, Negative POWERCHART U Specimen (Source) Anatomical Collection Method Collection Time Re ceived Time Location / / Volume Laterality 09/06/2012 3:18 PM CDT Historical Provider LAB POCT ORDERABLES - DEVICE Performing Organization Address [facility] Phon e Number POWERCHART Dipstick, POCT, Urine (lab) (09/06/2012 3:18 PM CDT) [facility] Signature Urobilinogen, 0.2 mg/dl POWERCHART POCT, Urine Specimen (Source) Anatomical Collection Method Collection Time Re ceived Time Location / / Volume Laterality 09/06/2012 3:18 PM CDT Historical Provider LAB POCT ORDERABLES - DEVICE Performing Organization Address [facility] Code Phon e Number POWERCHART HX UA NITRITE POC (09/06/2012 3:18 PM CDT) P athologist Signature Nitrites, Negative POWERCHART POCT, U Specimen (Source) Anatomical Collection Method Collection Time Re ceived Time Location / / Volume Laterality 09/06/2012 3:18 PM CDT Historical Provider LAB HISTORICAL ORDERS Performing Organization Address City/[facility]/ZIP Code Phon e Number POWERCHART Dipstick, POCT, Urine (lab) (09/06/2012 3:18 PM CDT) P athologist Signature Leukocytes, Negative POWERCHART POCT, U Specimen (Source) Anatomical Collection Method Collection Time Re ceived Time Location / / Volume Laterality 09/06/2012 3:18 PM CDT Historical Provider LAB POCT ORDERABLES - DEVICE Performing Organization Address [facility]/ZIP [facility] Phon e Number POWERCHART HX UA APPEAR POC (09/06/2012 3:18 PM CDT) athologist Signature Appearance Clear POWERCHART Specimen (Source) Anatomical Collection Method Collection Time Re ceived Time Location / / Volume Laterality 09/06/2012 3:18 PM CDT Historical Provider LAB HISTORICAL ORDERS Performing Organization Address [facility] Phon e Number POWERCHART Dipstick, POCT, Urine (lab) (09/06/2012 3:18 PM CDT) athologist Signature Color Colorless POWERCHART Specimen (Source) Anatomical Collection Method Collection Time Re ceived Time Location / / Volume Laterality 09/06/2012 3:18 PM CDT Historical Provider LAB POCT ORDERABLES - DEVICE Performing Organization Address [facility] Phon e Number POWERCHART Wet Prep Exam, Urogenital (09/06/2012 3:03 PM CDT) athologist Signature HXWet Prep POWERCHART HXFinal No yeast, POWERCHART Trichomonas , clue cells, or sperm seen. Specimen (Source) Anatomical Collection Method Collection Time Re ceived Time Location / / Volume Laterality Vagina 09/06/2012 3:03 PM CDT Abel Duenas APRN, C.N.P., D.N.P. LAB MICROBIOLOGY - GENERAL ORDERABLES Performing Organization Address City/[facility]/ZIP [facility] Phon e Number POWERCHART documented in this encounter Visit Diagnoses Not on filedocumented in this encounter
--- OUTSIDE RECORDS SUMMARY | 2022-02-13 09:20 | XMS_ITS | Encounter Summary ---
:1945 Author Organization [facility] Address [address] [place] [address] Care Team Providers Name Role Phone Unavailable Primary Care Provider Unavailable Encounter Details Date Type Department Care Team Description 11/16/2012 Hospital Encounter HX [facility] Oc Barnett, RESPIRATORY THERAPIST, C.N.P. [address] [place], [place] [phone] (Wo rk) Social History [...] Sign Reading Time Taken Comments Blood Pressure 102/60 11/16/2012 9:04 AM CDT Pulse 72 11/16/2012 9:04 AM CDT Temperature - - Respiratory Rate - - Oxygen Saturation - - Inhaled Oxygen Concentration - - Weight 55.9 kg (123 lb 3.8 oz) 11/16/2012 9:04 AM CDT Height - - Body Mass Index 21.3 08/05/2012 3:40 PM CDT documented in this [...] Progress Notes Oc Zafar, ORION, C.N.P. - 11/16/2012 8:49 AM CDT [id number] CHIEF COMPLAINT / REASON FOR VISIT Vaginal concerns. HISTORY OF PRESENT ILLNESS Isadora is a 67-year-old postmenopausal woman whose reproductive organs are intact who has been doctoring with Soledad Shafer RN, 911 OPERATOR in regard to an ongoing vaginal infection that she has been experiencing. She just finished clindamycin vaginally and felt that that was not helpful. She has been given a prescription for Premarin cream. States that she is using that 3 nights per week. When asked how she is using that she states she is placing a pea-size amount around the opening of the vagina 3 daysper week. She does feel like that has been somewhat beneficial for decreasing the dryness but she does note that she continues to have some swelling around the opening of the vagina as well as some itching and discharge that she describes as smooth and milky. She denies any vaginal odor. Denies any burning sensation. At this point, she is concerned that she may be allergic to the Premarin cream. Has had testing for bacterial vaginosis, which was negative as well as yeast infection, Trichomonas all of which were negative. Patient is in a monogamous relationship with her . They are sexually act angelique. She was experiencing some dryness with intercourse. She notes that recently this problem becameworse again after she was positioned during intercourse on the bottom. She feels like possibly she does not to drain secretions from intercourse as well when she is positioned on the bottom. Typically,she positions herself on the top. Patient is otherwise healthy and has no other concerns or complaints for me today. CURRENT MEDICATIONS 1. Estrace cream (prescription provided today). 2. Imitrex. 3. Lorazepam. 4. Acidophilus. 5. Potassium citrate. 6. ProAir. ALLERGIES 1. Ciprofloxacin, reaction tendonitis. 2. Diflucan, reaction blister and swelling of the throat. 3. Metronidazole, reaction tendonitis. 4. Sulfa drugs, reaction nausea. SYSTEMS REVIEW Pertinent positives noted in HPI, otherwise negative. PAST MEDICAL/SURGICAL HISTORY MEDICAL HISTORY: 1. Atrophic vaginitis 2. Diverticulitis of the colon. 3. Migraine headaches. 4. Allergic rhinitis. SURGICAL HISTORY: 1. Colonoscopy 12/08/2007. 2. Laparoscopic cholecystectomy 2006. VITAL SIGNS HEART RATE: 72. BLOOD PRESSURE: 102/60. WEIGHT: 55.9. PHYSICAL EXAMINATION GENERAL: She is well-appearing female in no acute distress. Skin is warm, dry and pink. No rashes, lesions or bruising. Abdomen is soft and nontender, nondistended. No masses palpable. PELVIS: External genitalia without any lesions but is noted to be erythematous and slightly swollen.Urethral meatus is normal in location and appearance without masses. Normal pubic hair distribution.Negative Bartholin's and [place]'s. Negative for any pelvic floor muscle pain or tenderness. The introitus looks fairly well estrogenated but the internal vaginal tissue does appear dry and atrophic and quite pale. Cervix is visualized, appears atrophic but otherwise normal. Culture was obtained. No lesions are noted intravaginally. Upon bimanual exam, there is no cervical motion tenderness. Uterus is normal size and mobile. Adnexa nonpalpable. No masses or tenderness noted. RECTUM: No external hemorrhoids or fissures. LABORATORY DATA: Vaginal culture obtained for Ureaplasma/Mycoplasma. IMPRESSION / REPORT / PLAN Vaginitis. PLAN: At this point, I am going to go ahead and switch her from the Premarin vaginal cream to the Estrace vaginal cream as she thinks she may be sensitive to the Premarin cream. Prescription for Estrace cream was faxed to [facility]. I am recommending that she insert 0.5 gram into the vagina 3 days per week. She can continue to use the pea-sized amount around the opening of the vagina if she would like. We talked about risks, benefits and potential side effects from the Estrace cream. I also amsending the culture for Ureaplasma and Mycoplasma. I will plan to give her a telephone call either at home at [phone] or on her cell at [phone] with those results in 3 to 7 days. We discussed possible treatment regimens for Ureaplasma if it comes back positive. If it comes back negative, I did spendtime talking about possible dermatitis conditions that may be occurring and possible triggers for that. She will take these things into consideration and make some changes in her daily regimen. Otherwise, we are going to continue with the Estrace cream and I will plan to see her back in about 3 monthsfor followup. At this point, she does not have any additional concerns or questions and she is agreeable to this plan of care. Oc Zafar CNP/chen Electronically Signed By: OC ZAFAR RN, CNP On: 11/18/2012 09:15 AM Source: [facility] MHSDOLBEYNONRADSYS Document Id: [id number] documented in this encounter Miscellaneous Notes Miscellaneous - cO Zafar APRN, C.N.P. - 11/16/2012 9:51 AM CDT Ambulatory [place] [address] Visit Information Name: ISADORA BACK [facility] Number: [id number] Current Date: 11/16/2012 09:51:20 Physicians Attending Provider: OC ZAFAR RN 911 OPERATOR Primary Care Provider: LUI GAUTHIER MD Your Medications Here is a list of your medications. It is important to take your medications as directed. Use a pillbox or chart to help remind you to take your medications. Please let your doctor or nurse know if you have problems taking your medications. Medication/Strength Dose Route Frequency Indications/Special Instructions/Comments/Notes estradiol topical (Estrace Vaginal 0.1 mg/g vaginal cream) See Instructions Insert 1/2 gram into thevagina 2 to 3 times per week. Can also apply pea-size amount to opening of vagina 2 to 3 times per week. lorazepam (lorazepam 0.5 mg oral tablet) 0.5 mg Oral three times a day as needed for Anxiety Misc Prescription (Misc Prescription) 1 tab Oral [...] No Appointments found Your Goals/Additional instructions: Source: [facility] POWERCHART Document Id: [id number] Miscellaneous - Oc Zafar APRN, C.N.P. - 11/16/2012 9:51 AM CDT Ambulatory Depart Summary [address] [address] Visit Information Name: ISADORA BACK [facility] Number: [id number] Visit Date: 11/16/2012 09:51:20 Attending Provider: OC ZAFAR RN 911 OPERATOR Primary Care Provider: LUI GAUTHIER MD ISADORA BACK has been given the following list of medications: Your Medications It is important to take your medications as directed. Use a pill box or chart to help remind you to take your medications. Please let your doctor or nurse know if you have problems taking your medications. Medication/Strength Dose Route Frequency Indications/Special Instructions/Comments/Notes estradiol topical (Estrace Vaginal 0.1 mg/g vaginal cream) See Instructions Insert 1/2 gram into thevagina 2 to 3 times per week. Can also apply pea-size amount to opening of vagina 2 to 3 times per week. lorazepam (lorazepam 0.5 mg oral tablet) 0.5 mg Oral three times a day as needed for Anxiety Misc Prescription (Misc Prescription) 1 tab Oral [...] your provider for clarification. Additional Information: Source: [facility] POWERCHART Document Id: [id number] Miscellaneous - Lauren Gamez, REldaN. - 11/16/2012 9:04 AM CDT Adult Die Hardener Intake/History Adult Die Hardener Intake/History Entered On: 11/16/2012 9:05 CDT Performed On: 11/16/2012 9:04 CDT by LAUREN CHAVEZ Intake Chief Complaint : vaginal irritation Peripheral Pulse Rate : 72 /min Systolic Blood Pressure : 102 mmHg Diastolic Blood Pressure : 60 mmHg NIBP Mean : 74 mmHg BP Location : Right upper extremity Blood Pressure Cuff Size : Regular Actual Weight : 55.9 kg(Converted to: 123 lb 4 oz) Dosing Weight Clinic : 55.9 kg LAUREN CHAVEZ - 11/16/2012 9:04 CDT General Info Languages : Telugu LAURNE CHAVEZ - 11/16/2012 9:04 CDT Subjective Pain Symptoms : No LAUREN CHAVEZ - 11/16/2012 9:04 CDT Dependent Habits Tobacco Use/Currently Using : No Tobacco Use/Last 12 months : No Smoking Status : Former smoker LAUREN CHAVEZ - 11/16/2012 9:04 CDT Tobacco Use Grid Last Use : quit 1970 LAUREN CHAVEZ - 11/16/2012 9:04 CDT Source: [facility] POWERCHART Document Id: [id number] CDT!22 documented in this encounter Plan of Treatment Not on filedocumented as of this encounter Procedures Procedure Name Priority Date/Time Associated Comments Diagnosis UREAPL PCR SRC Routine 11/16/2012 9:41 AM Results for this CDT procedure are i n the results section. UREAPLASMA UREA PCR Routine 11/16/2012 9:41 AM Re sults for this CDT procedure are i n the results section. UREAPLASMA PARV PCR Routine 11/16/2012 9:41 AM Re sults for this CDT procedure are i n the results section. documented in this encounter Results HX-Ureaplasma Parv PCR (11/16/2012 9:41 AM CDT) Analysis Performed At Patho logist Time Signature Ureaplasma Positive POWERCHART parvum PCR Specimen (Source) Anatomical Collection Method Collection Time Re ceived Time Location / / Volume Laterality 11/16/2012 9:41 AM CDT Narrative POWERCHART - 11/17/2012 1:58 PM CDT Laboratory developed test. Test Performed by: [address] [address] Nursing Home Director: Varinder tucker III, M.D. Tae Stein APRNNEldaPElda LAB HISTORICAL ORDERS Performing Organization Address City/State/ZIP Code Phon e Number POWERCHART HX-Ureaplasma Urea PCR (11/16/2012 9:41 AM CDT) Patholo gist Method Time Signature Ureaplasma Negative POWERCHART urealyticum PCR Specimen (Source) Anatomical Collection Method Collection Time Re ceived Time Location / / Volume Laterality 11/16/2012 9:41 AM CDT Oc Zafar APRN, C.N.P. LAB HISTORICAL ORDERS Performing Organization Address City/[facility] Code Phon e Number POWERCHART HX-Ureapl PCR Src (11/16/2012 9:41 AM CDT) P athologist Signature HXUreapl PCR vaginal POWERCHART [facility] Specimen (Source) Anatomical Collection Method Collection Time Re ceived Time Location / / Volume Laterality 11/16/2012 9:41 AM CDT Oc Zafar APRN, C.N.P. LAB HISTORICAL ORDERS Performing Organization Address City/[facility]/ZIP Code Phon e Number POWERCHART documented in this encounter Visit Diagnoses Not on filedocumented in this encounter
--- OUTSIDE RECORDS SUMMARY | 2022-02-13 09:20 | XMS_ITS | Encounter Summary ---
:1945 Author Organization [facility] Address [address] [place] [address] Care Team Providers Name Role Phone Unavailable Primary Care Provider Unavailable Encounter Details Date Type Department Care Team Description 01/04/2013 Hospital Encounter HX NO MAPPING Nivia Trujillo A PRN, C.N.P. [address] [place], [place] [phone] (Wo rk) Social History [...]
--- OUTSIDE RECORDS SUMMARY | 2022-02-13 09:20 | XMS_ITS | Encounter Summary ---
:1945 Author Organization [facility] Address [address] [place] [address] Care Team Providers Name Role Phone Unavailable Primary Care Provider Unavailable Encounter Details Date Type Department Care Team Description 02/16/2013 Hospital Encounter HX NO MAPPING Oc Zafar A PRN, C.N.P. [address] [place], [place] [phone] (Wo rk) Social History [...] Sign Reading Time Taken Comments Blood Pressure 124/60 02/16/2013 2:07 PM CDT Pulse 78 02/16/2013 2:07 PM CDT Temperature - - Respiratory Rate 16 02/16/2013 2:07 PM CDT Oxygen Saturation - - Inhaled Oxygen Concentration - - Weight 56.8 kg (125 lb 3.5 oz) 02/16/2013 2:07 PM CDT Height - - Body Mass Index 21.64 08/05/2012 3:40 PM CDT documented in this [...] Progress Notes Oc Zafar, ORION, C.N.P. - 02/16/2013 2:02 PM CDT [id number] CHIEF COMPLAINT/REASON FOR VISIT Continued vaginitis. HISTORY OF PRESENT ILLNESS Isadora is a 67-year-old patient whom I last saw in the Department of Obstetrics and Gynecology on January 04, 2013, for her continued vaginal irritation. Please review my note from that date for her complete history. She notes that at this point her symptoms have returned very similar to what she was experiencing when I first saw her back in October 2012 when she was diagnosed with a culture- proven Ureaplasma. At that point I did provide her with doxycycline 100 mg to take twice daily for 10 days. She was only able to tolerate it for 8 days at that point in time because it was making her feel a bit achy but she notes that the symptoms she is having now are exactly the same as what she was experiencing back then. She is having white fairly thick discharge. She has noticed an odor. The discharge is smooth and milky in appearance. She is not having any burning or itching but she has noticed some low back pain. She notes that every time she uses her vaginal cream, she gets a migraine so she has discontinued use of that vaginal cream at this point. She feels she is just very sensitive to it so she is no longer utilizing that. She denies any fevers, chills or body aches. When I last saw her I had mentioned to her that there is a specialist in [place], Dr. Chelsea Kevin, MERCHANDISING COORDINATOR, who might be a very beneficial person for her to see if the problems continued. She has called and scheduled an appointment with Dr. Kevin for March and she did talk to her over the ayla ne. Her recommendation over the phone was to try to gradually decrease her coffee intake because of the acidic content in coffee. Isadora has been trying to cut back on her coffee since that conversation.Her goal is to cut back to 1 cup per day. MEDICATIONS 1. Doxycycline (prescription provided today). 2. Imitrex. 3. Lorazepam. 4. Acidophilus. 5. Potassium citrate. 6. ProAir HFA. 7. Terazol 7 vaginal cream (prescription provided today). ALLERGIES 1. Ciprofloxacin reaction tendonitis. 2. Diflucan reaction blister and swelling of the throat. 3. Metronidazole reaction tendonitis. 4. Sulfa drugs reaction nausea. SYSTEMS REVIEW Pertinent positives noted in HPI, otherwise negative. PAST MEDICAL/SURGICAL HISTORY 1. Atrophic vaginitis. 2. Diverticulitis. 3. Migraine headache. 4. Allergic rhinitis. 5. Colonoscopy 12/08/2007. 6. Laparoscopic cholecystectomy 2006. VITAL SIGNS TEMPERATURE: 36.8. HEART RATE: 78. RESPIRATORY RATE: 16. BLOOD PRESSURE: 124/60. WEIGHT: 56.8. PHYSICAL EXAMINATION GENERAL: She is a well-appearing female in no acute distress. 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 PLAN: At this point due to her history, I am going to go ahead and provide her with a prescription for doxycycline to treat recurrent Ureaplasma infection. She is not interested in having the culture repeated today for confirmation as her symptoms are exactly the same as when she had the Ureaplasma infection in October that was culture confirmed. Therefore I am providing her with a prescription for doxycycline 100 mg to take twice daily for 14 days. A minimum of 10 days was recommended. We reviewed signs and symptoms of allergic reaction and reasons to stop taking the medication. Otherwise she should try to continue it and finish it. I offered a prescription for her but she states that she would like to talk to him first. He did take the medication last time it was prescribed. She will call me if she would like me to provide him a prescription as well which I am recommending. I did provide her a written handout on Ureaplasma for her to review at home and discuss with her . At this point she has no additional concerns or questions. She does agree to this plan of care. Oc Zafar CNP/todd Electronically Signed By: OC ZAFAR RN, CNP On: 02/17/2013 10:15 AM Source: [facility] MHSDOLBEYNONRADSYS Document Id: [id number] documented in this encounter Miscellaneous Notes Miscellaneous - Oc Zafar APRN, C.N.P. - 02/16/2013 2:53 PM CDT Ambulatory Patient Summary [address] [address] Visit Information Name: ISADORA BACK [facility] Number: [id number] Current Date: 02/16/2013 14:53:48 Physicians Attending Provider: OC ZAFAR RN, CNP [...] medications. Medication/Strength Dose Route Frequency Indications/Special Instructions/Comments/Notes doxycycline (doxycycline hyclate 100 mg oral capsule) 100 mg Oral two times a day for 14 Days may take with food to minimize abdominal discomfort with fluids terconazole topical (Terazol 7 vaginal cream) 1 lidia Vaginal once a day (at bedtime) for 7 Days LORazepam (lorazepam 0.5 mg oral tablet) 0.5 [...] appointment detail needed. Your Goals/Additional instructions: Source: [facility] POWERCHART Document Id: [id number] Miscellaneous - Oc Zafar APRN, C.N.P. - 02/16/2013 2:53 PM CDT Ambulatory Depart Summary [address] [address] Visit Information Name: ISADORA BACK [facility] Number: [id number] Visit Date: 02/16/2013 14:53:48 Attending Provider: OC ZAFAR RN [facility] Primary Care Provider: LUI GAUTHIER MD ISADORA BACK has been given the following list of medications: Your Medications It is important to take your medications as directed. Use a pill box or chart to help remind you to take your medications. Please let your doctor or nurse know if you have problems taking your medications. Medication/Strength Dose Route Frequency Indications/Special Instructions/Comments/Notes doxycycline (doxycycline hyclate 100 mg oral capsule) 100 mg Oral two times a day for 14 Days may take with food to minimize abdominal discomfort with fluids terconazole topical (Terazol 7 vaginal cream) 1 lidia Vaginal once a day (at bedtime) for 7 Days LORazepam (lorazepam 0.5 mg oral tablet) 0.5 [...] your provider for clarification. Additional Information: Source: [facility] POWERCHART Document Id: [id number] Miscellaneous - Conversion, Historical Provider Ser - 02/16/2013 2:07 PM CDT Adult Polysomnographic Technician Intake/History Adult Polysomnographic Technician Intake/History Entered On: 02/16/2013 14:08 CDT Performed On: 02/16/2013 14:07 CDT by AUGUSTUS GUERRERO Intake Chief Complaint : needs to talk to kasandra Temperature Core : 36.8 DegC(Converted to: 98.2 DegF) Peripheral Pulse Rate : 78 /min Respiratory Rate : 16 /min Heart Rhythm : Regular Systolic Blood Pressure : 124 mmHg Diastolic Blood Pressure : 60 mmHg NIBP Mean : 81 mmHg BP Location : Left upper extremity Blood Pressure Cuff Size : Regular Actual Weight : 56.8 kg(Converted to: 125 lb 4 oz) Weight Source : Standing scale Dosing Weight Clinic : 56.8 kg AUGUSTUS GUERRERO - 02/16/2013 14:07 CDT General Info Information Given By : Patient Preferred Communication Mode : Verbal Languages : Romanian AUGUSTUS GUERRERO - 02/16/2013 14:07 CDT Subjective Pain Symptoms : No AUGUSTUS GUERRERO S - 02/16/2013 14:07 CDT Dependent Habits Tobacco Use/Currently Using : No Smoking Status : Former smoker AUGUSTUS GUERRERO S - 02/16/2013 14:07 CDT Tobacco Use Grid Last Use : quit 1969 AUGUSTUS GUERRERO S - 02/16/2013 14:07 CDT [facility] Document Id: [id number] CDT!27 documented in this encounter Plan of Treatment Not on filedocumented as of this encounter Visit Diagnoses Not on filedocumented in this encounter
--- OUTSIDE RECORDS SUMMARY | 2022-02-13 09:20 | XMS_ITS | Encounter Summary ---
:[address] [facility] Address [address] [place] [address] Care Team Providers Name Role Phone Unavailable Primary Care Provider Unavailable Encounter Details Date Type Department Care Team Description 08/05/2012 Hospital Encounter HX [facility] FB FAMILYPRA Luisa Crockett i, M.D. [address] [place] [address] (Wo rk) Social History Tobacco [...] Sign Reading Time Taken Comments Blood Pressure 124/88 08/05/2012 3:40 PM CDT Pulse 80 08/05/2012 3:40 PM CDT Temperature - - Respiratory Rate 16 08/05/2012 3:40 PM CDT Oxygen Saturation - - Inhaled Oxygen Concentration - - Weight 56 kg (123 lb 7.3 oz) 08/05/2012 3:40 PM CDT Height 162 cm (5' 3.78) 08/05/2012 3:40 PM CDT Body Mass Index 21.34 08/05/2012 3:40 PM CDT documented in this encounter Medications at Time of Discharge Medication Sig Dispensed Refills Start Date End Date calcium carbonate-vitamin Chew 1 tablet. 0 2009 D3 1,250 mg (500 mg calcium)-400 unit per chewable tablet multivitamin tablet Take 1 tablet by 0 06/28/2009 mouth. documented as of this encounter Progress Notes Luisa Whitten M.D. - 08/05/2012 2:44 PM CDT [id number] CHIEF COMPLAINT/REASON FOR VISIT Shoulder pain Isadora has had pain in the right shoulder over the past 3 months. She knows of no injury. She has noticed that wearing a purse on her right shoulder is painful as well as the bra strap. She has had to loosen her bra. She does not know of any other activity that increases her pain. It is not constant butbrought on by pressure and not particularly certain movements. She has not used any dkfh-vcl-sgamurysmjx relievers. She has noted no weakness. She does have neck pain for which she is seeing physical therapy. Isadora has history of adenomatous colon polyps without dysplasia. The last colonoscopy with adenomatous polyp was 08/01/2009. Medications are reviewed and are as outlined in the EMR VITAL SIGNS HEIGHT is 162 cm WEIGHT: 56 kg TEMPERATURE: 36.0 RESPIRATIONS: 16 PULSE: 80 BLOOD PRESSURE: 124/88 PHYSICAL EXAM She appears well and in no distress. She has a bruise on her shoulder where her bra strap has been. She is tender in this area. She has full passive and active range of motion of the shoulder without discomfort. She does have tenderness at the anterior and anterolateral glenohumeral joint. X-ray showed mild degenerative change at the AC joint. IMPRESSION/REPORT/PLAN 1. Right shoulder pain. She will benefit from physical therapy. I have referred her to [facility] for their evaluation and ongoing management. 2. Adenomatous colon polyps. She is due for colonoscopy. Will submit her name for this. Luisa Gauthier M.D./sushma Electronically Signed By: LUISA GAUTHIER MD On: 08/08/2012 05:50 PM Source: [facility] MHSDOLBEYNONRADSYS Document Id: [id number] documented in this encounter Miscellaneous Notes Miscellaneous - Luisa Whitten M.D. - 08/05/2012 11:51 PM CDT Ambulatory Patient Summary [address] [address] Visit Information Name: ISADORA BACK [facility] Number: [id number] Current Date: 08/05/2012 23:51:37 Physicians Attending Provider: LUISA GAUTHIER MD Primary Care Provider: LUISA GAUTHIER MD Your Medications Here is a list of your medications. It is important to take your medications as directed. Use a pillbox or chart to help remind you to take your medications. Please let your doctor or nurse know if you have problems taking your medications. Medication/Strength Dose Route Frequency Indications/Special Instructions/Comments potassium citrate (potassium citrate) Oral lorazepam (lorazepam [...] Comments ciprofloxacin Tendonitis Drug sulfa drugs Drug metroNIDAZOLE Tendonitis Drug Your Problem List Problem Status Onset Comments Migraine headache Active Rhinitis, Allergic Active Diverticulitis of colon NOS Active Your Upcoming Appointments Date Time Location Reason Provider No Appointments found Your Goals/Additional instructions: Source: [facility] POWERCHART Document Id: [id number] Miscellaneous - Luisa Whitten M.D. - 08/05/2012 11:51 PM CDT Ambulatory Depart Summary [address] [address] Visit Information Name: ISADORA BACK [facility] Number: [id number] Visit Date: 08/05/2012 23:51:37 Attending Provider: LUISA GAUTHIER MD Primary Care [...] medications. Medication/Strength Dose Route Frequency Indications/Special Instructions/Comments potassium citrate (potassium citrate) Oral lorazepam (lorazepam [...] your provider for clarification. 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 Entered On: 08/05/2012 15:43 CDT Performed On: 08/05/2012 15:40 CDT by ELENO MORALES LPN Intake Chief Complaint : right shoulder pain Temperature Core : 36.0 DegC(Converted to: 96.8 DegF) (LOW) Peripheral Pulse Rate : 80 /min Respiratory Rate : 16 /min Systolic Blood Pressure : 124 mmHg Diastolic Blood Pressure : 88 mmHg NIBP Mean : 100 mmHg BP Location : Right upper extremity Blood Pressure Cuff Size : Regular Height : 162 cm(Converted to: 5 ft 4 inch(es), 63.78 inch(es)) Actual Weight : 56 kg(Converted to: 123 lb 7 oz) Dosing Weight Clinic : 56 kg Clinic BSA : 1.59 Body Mass Index : 21.34 kg/m2 JULIANE LANCE, ELENO CAROL DEPLOYMENT SPECIALIST - 08/05/2012 15:40 CDT General Info Information Given By : Patient Languages : Albanian JULIANE LANCE, ELENO CAROL [facility] - 08/05/2012 15:40 CDT Subjective Pain Symptoms : Yes ELENO MORALES LPN - 08/05/2012 15:40 CDT Pain Pain Assessment Grid Pain 1 Location : Shoulder Laterality : Right JULIANE LUCAS ELENONAGA LAINEZ LPN - 08/05/2012 15:40 CDT Dependent Habits Tobacco Use/Currently Using : No Tobacco Use/Last 12 months : No Smoking Status : Former smoker ELENO MORALES LPN - 08/05/2012 15:40 CDT Tobacco Use Grid Last Use : quit 1970 JULIANE LANCEELENO VERDUGO LPN - 08/05/2012 15:40 CDT Source: [facility] WorksCHART Document Id: [id number] CDT!33 Miscellaneous - Conversion, Historical Provider Ser - 07/29/2012 4:04 PM CDT Medication Refill Msg Document Contains Addenda Addendum by ELENO MORALES LPN on 29 July 2012 17:11:08 CDT sent to [facility] in [place] Addendum by LUISA GAUTHIER MD on 29 July 2012 16:55:06 CDT From: LUISA GAUTHIER MD To: ELENO MORALES LPN; Sent: 07/29/2012 16:55:06 CDT Subject: RE: Medication Refill Msg my condolences to her From: ELENO MORALES LPN To: LUISA GAUTHIER MD; ELENO MORALES LPN; Sent: 07/29/2012 16:04:08 CDT Subject: Medication Refill Msg Caller is: ( ) Patient ( ) Mother ( ) Father ( ) Spouse ( ) Daughter ( ) Son ( ) Pharmacy ( ) Other: Provider: Pharmacy: Name of Medications Needing Refill: would like a refill of the lorazepam, her mother andis having some trouble sleeping and with anxiety. said has appointment set up for next wednesday to seeyou. 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 documented in this encounter Results DX Shoulder Right 2+ Views (08/05/2012 4:24 PM CDT) Anatomical Region Laterality Modality Upper Extremity, Shoulder Right Radiographic I maging Specimen (Source) Anatomical Collection Method Collection Time Re ceived Time Location / / Volume Laterality 08/05/2012 4:24 PM CDT Addenda Addendum by Provider, Jacquelyn Riggs n 08/05/2012 4:24 PM CDT RAD^^^OW XR Shoulder Right 2 or more views 08/05/2012 16:24:00 Addendum by Provider, Jacquelyn Riggs o n 08/05/2012 4:24 PM CDT RAD^^^MA XR Shoulder Right 2 or more views 08/05/2012 16:24:00 Impressions 08/05/2012 4:59 PM CDT Mild acromioclavicular degenerative changes. No acute radiographic abnormality. Narrative 08/05/2012 4:59 PM CDT Comparison: None. FINDINGS: Right humeral head normally located with the glenoid. No acute fracture or destructive osseous abnormal ity. Mild acromioclavicular degenerative changes with undersurface o steophyte formation. Visualized right lung clear. Procedure Note Gama Haley M.D. / Provider, His norberto M.D. - 09/04/2016 Comparison: None. FINDINGS: Right humeral head normally located with the glenoid. No acute fracture or destructive osseous abnormal ity. Mild acromioclavicular degenerative changes with undersurface o steophyte formation. Visualized right lung clear. IMPRESSION: Mild acromioclavicular degen erative changes. No acute radiographic abnormality. Aithai See R.T.(R) IMG DIAGNOSTIC IMAGING PROCE DURES documented in this encounter Visit Diagnoses Not on filedocumented in this encounter
--- OUTSIDE RECORDS SUMMARY | 2022-02-13 09:20 | XMS_ITS | Encounter Summary ---
:1945 Author Organization [facility] Address [address] [place] [address] Care Team Providers Name Role Phone Unavailable Primary Care Provider Unavailable Encounter Details Date Type Department Care Team Description 03/15/2013 Hospital Encounter HX [facility] FBKF FAMILYPRA Nacho Duenas, ORION, C.N.P., D. N.P. 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 - 03/15/2013 10:00 AM CST [id number] CHIEF COMPLAINT/REASON FOR VISIT Still having troubles with infection. HISTORY OF PRESENT ILLNESS The patient is a 67-year-old female who presents to the clinic for a vaginal discharge. Patient has been doctoring with Nivia Trujillo CNP and being treated for Ureaplasma. The patient could not tolerate doxycycline and we did use the alternative Zithromax. Patient is wondering if she should complete another course because she does not feel like the infection is gone. She states the white sludge is still present and not clear. She states the odor has improved and the itching has subsided. Patient does have some stressors in her life to include her daughter's problems and watching her grandson quite frequently. Patient is requesting a refill of her Ativan today as well. She denies fever, chills, nausea, vomiting, shortness of breath or chest pain. No suicidal thoughts. MEDICATIONS See depart summary. ALLERGIES See EMR. PAST MEDICAL/SURGICAL HISTORY Unchanged see EMR. SOCIAL HISTORY Unchanged see EMR. FAMILY HISTORY Unchanged see EMR. VITAL SIGNS See EMR. PHYSICAL EXAMINATION GENERAL: Well-appearing female in no acute distress. SKIN: Warm, dry and pink. No rashes or lesions. HEAD: Normocephalic. EYES: Conjunctivae clear. Sclerae white. No drainage. EARS: Ear canals clear bilaterally. TMs intact, whiting shiny light reflex present bilaterally. NOSE: Nasal mucosa pink and moist. THROAT: Posterior pharynx moist and pink. LYMPH: No cervical lymphadenopathy. LUNGS: Clear to auscultation. No wheezes or crackles. HEART: Regular rate and rhythm. No murmurs. ABDOMEN: Flat, soft, nondistended. No organomegaly or masses. No tenderness on palpation. Bowel sounds times 4 quadrants. GENITALIA: Female external genitalia appropriate for age. Normal female coarse pubic hair distribution. No swelling, lesions, discharge noted from the [place], [place]'s or urethra. Vaginal castro appear supple, pink and moist. No vaginal discharge noted. MENTAL: Alert and oriented to person, place and time. PHQ-9 with a score of 3. CRISTINA-7 with a score of4. IMPRESSION/REPORT/PLAN 1. Vaginal discharge. We will obtain Ureaplasma culture and wet prep and notify her of the result. Patient was given a Zithromax Z-Jason to continue another 5 days of treatment. Patient was instructed tofollow up with Nivia Trujillo for recheck or further concerns. Patient was instructed that what shedescribes as white sludge could just be her normal physiological vaginal discharge. 2. Anxiety. Patient's Ativan was refilled. Patient was instructed that Ativan can be habit-forming and should not be treatment of choice. If patient has problems with anxiety, starting an antidepressant would be more appropriate. Patient has had counseling in the past. Patient is not interested in starting a long-term medication at this time and will continue to use Ativan sparingly. Patient will follow up as needed. Patient verbalizes understanding and agrees with plan of care. Abel Shafer CNP/todd Electronically Signed By: ABEL SHAFER CNP On: 07/30/2013 04:15 PM Source: [facility] Document Id: [id number] documented in this encounter Miscellaneous Notes Miscellaneous - Abel Duenas APRN, C.N.P. - 03/17/2013 2:23 PM MA[employer]GER [employer] Results Notification Document Contains Addenda Addendum by TANJA HERNANDEZ on 2013 15:13:06 [employer]GER [employer] From: TANJA HERNANDEZ ([facility] Medicine Nurse) To: ABEL SHAFER CNP; Sent: 2013 15:13:06 MANAGER [employer] Show up: 2013 15:12:00 [employer]GER [employer] Subject: RE: Results Notification Patient states she will try the z-jason as she has it waiting at [facility] if [place]. From: ABEL SHAFER CNP To: [facility] Medicine Nurse; Sent: 03/17/2013 14:23:16 MA[employer] ! Show up: 03/17/2013 20:23:16 [facility] Subject: Results Notification Actions: Notify patient of results Reminder Comments: Ureaplasma still positive. Results: Date Result Name Value Ref Range 03/15/2013 10:45 Ureapl PCR Src-[place] VAGINAL 03/15/2013 10:45 Ureaplasma Urea PCR-Levia Positive (Not Applicable - ) 03/15/2013 10:45 Ureaplasma Parv PCR-[place] Negative (Not Applicable - ) Source: [facility] POWERCHART Document Id: [id number] Miscellaneous - Abel Duenas APRN, C.N.P. - 03/15/2013 5:00 PM [employer] Results Notification Document Contains Addenda Addendum by TANJA HERNANDEZ on 2013 15:13:33 MA[employer] Patient aware of results. From: ABEL SHAFER CNP To: [facility] Nurse; Sent: 03/15/2013 17:00:44 [employer] ! Show up: 03/15/2013 23:00:44 [facility] Subject: Results Notification Actions: Notify patient of results Reminder Comments: No yeast, trich, or clue cells (BV) Results: Date Result Type Ind Result Name MBO Review WET Prep WBC's Source: 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 discuss concerns Temperature Core : 36.3 DegC(Converted to: 97.3 DegF) (LOW) Peripheral Pulse Rate : 68 /min Respiratory Rate : 18 /min Systolic Blood Pressure : 36 mmHg (<LLOW) Diastolic Blood Pressure : 62 mmHg NIBP Mean : 53 mmHg BP Location : Right upper extremity Blood Pressure Cuff Size : Regular Actual Weight : 56.6 kg(Converted to: 124 lb 13 oz) Weight Source : Standing scale Dosing Weight Clinic : 56.6 kg BREE DARNELL LPN - 03/15/2013 10:13 [employer] General Info Languages : Welsh BREE DARNELL LPN - 03/15/2013 10:13 [employer] Subjective Pain Symptoms : No BREE DARNELL LPN - 03/15/2013 10:13 [employer] Dependent Habits Tobacco Use/Currently Using : No Smoking Status : Never smoker BREE DARNELL LPN - 03/15/2013 10:13 [employer] Tobacco Use Grid Last Use : quit 1970 BREE DARNELL LPN - 03/15/2013 10:13 [employer] Caffeine Use Grid Caffeine Use : Current Type : Coffee Frequency : Daily Amount : 3 Last Use : today BREE DARNELL LPN - 03/15/2013 10:13 [employer] Source: [facility] POWERCHART Document Id: [id number] MANAGER [employer]!31 documented in this encounter Plan of Treatment Not on filedocumented as of this encounter Procedures Procedure Name Priority Date/Time Associated Comments Diagnosis UREAPL PCR SRC Routine 03/15/2013 10:45 AM Result s for this [employer] procedure are i n the results section. UREAPLASMA UREA PCR Routine 03/15/2013 10:45 AM R esults for this [employer] procedure are i n the results section. UREAPLASMA PARV PCR Routine 03/15/2013 10:45 AM R esults for this [employer] procedure are i n the results section. WET PREP EXAM, Routine 03/15/2013 10:45 AM Result s for this UROGENITAL [employer] procedure are i n the results section. documented in this encounter Results HX-Ureaplasma Parv PCR (03/15/2013 10:45 AM MANAGER [employer]) Analysis Performed At Patho logist Time Signature Ureaplasma Negative POWERCHART parvum PCR Specimen (Source) Anatomical Collection Method Collection Time Re ceived Time Location / / Volume Laterality 03/15/2013 10:45 AM MA[employer]GER [employer] Narrative POWERCHART - 03/17/2013 2:17 PM MA[employer] Laboratory developed test. Test Performed by: [place] [address] Test Developer: Varinder tucker III, M.D. Jovani Hodge APRN.N.PElda, D.N.P. LAB HISTORICAL O RDERS Performing Organization Address City/[facility] Code Phon e Number POWERCHART HX-Ureaplasma Urea PCR (03/15/2013 10:45 AM MANA[employer]) Patholo gist Method Time Signature Ureaplasma Positive POWERCHART urealyticum PCR Specimen (Source) Anatomical Collection Method Collection Time Re ceived Time Location / / Volume Laterality 03/15/2013 10:45 AM [employer] Jovani Hodge APRN.N.PElda, D.N.P. LAB HISTORICAL O RDERS Performing Organization Address City/State/ZIP Code Phon e Number POWERCHART HX-Ureapl PCR Src (03/15/2013 10:45 AM MANAGER [employer]) athologist Signature HXUreapl PCR VAGINAL POWERCHART [facility] Specimen (Source) Anatomical Collection Method Collection Time Re ceived Time Location / / Volume Laterality 03/15/2013 10:45 AM MANAGER [employer] Abel Duenas APRN, C.N.P., D.N.P. LAB HISTORICAL O RDERS Performing Organization Address [facility] Phon e Number POWERCHART Wet Prep Exam, Urogenital (03/15/2013 10:45 AM MANAGER [employer]) athologist Signature HXWet Prep POWERCHART HXFinal No yeast, POWERCHART Trichomonas , clue cells, or sperm seen. Specimen (Source) Anatomical Collection Method Collection Time Re ceived Time Location / / Volume Laterality Vagina 03/15/2013 10:45 AM MANAGER [employer] Abel Duenas APRN, C.N.P., D.N.P. LAB MICROBIOLOGY - GENERAL ORDERABLES Performing Organization Address City/[facility] Phon e Number POWERCHART documented in this encounter Visit Diagnoses Not on filedocumented in this encounter
--- OUTSIDE RECORDS SUMMARY | 2022-02-13 09:20 | XMS_ITS | Encounter Summary ---
:1945 Author Organization [facility] Address [address] [place] [address] Care Team Providers Name Role Phone Unavailable Primary Care Provider Unavailable Encounter Details Date Type Department Care Team Description 10/25/2012 Hospital Encounter [facility]X [facility] Nacho Duenas, ORION, C.N.P., D. N.P. [address] [place], [place] [address] (Wo rk) Social History [...] Sign Reading Time Taken Comments Blood Pressure 118/78 10/25/2012 11:13 AM CDT Pulse 60 10/25/2012 11:13 AM CDT Temperature - - Respiratory Rate 16 10/25/2012 11:13 AM CDT Oxygen Saturation - - Inhaled Oxygen Concentration - - Weight 57.1 kg (125 lb 14.1 oz) 10/25/2012 11:13 AM CDT Height - - Body Mass Index 21.76 08/05/2012 3:40 PM CDT documented in this [...] Progress Notes Abel Duenas APRN, C.N.P. - 10/25/2012 10:58 AM CDT [id number] CHIEF COMPLAINT/REASON FOR VISIT Vaginal problems. HISTORY OF PRESENT ILLNESS The patient is a 67-year-old female who continues to have vaginal irritation. She also complains of pruritis. Patient has known atrophic vaginitis and takes Premarin twice a week. However she does not use a full applicator she only dabs it on. She has increased this to three times a week. Patient alsohas painful intercourse and prefers to be on top. She feels like the retained semen does not agree with her and she has to douche after intercourse. She has not recently douched. She has not recently had sexual intercourse either. Patient states that SABRINA yarbrouhg has never worked for her and she uses Aloevera gel. She denies fever, chills, nausea, vomiting, chest pain or shortness breath. CURRENT MEDICATIONS See depart summary. ALLERGIES See EMR. PAST MEDICAL/SURGICAL HISTORY Unchanged see EMR. SOCIAL HISTORY Unchanged see EMR. FAMILY HISTORY Unchanged see EMR. VITAL SIGNS See EMR. PHYSICAL EXAMINATION GENERAL: Well appearing female in no acute distress. SKIN: Warm, dry and pink. HEAD: Normocephalic. LYMPHS: No cervical lymphadenopathy. LUNGS: Clear to auscultation. HEART: Regular rate and rhythm. GENITALIA: External genitalia appropriate for age. Normal female coarse pubic hair distribution. No swelling, lesions or discharge noted from the [employer]'s or urethra. Speculum exam performed.Vaginal castro are atrophic and pale appearing no lesions noted. Cervix pink no lesions. Os closed. Moderate amount of thick white discharge. Wet prep obtained. Bimanual exam performed. No CMT. No uterine enlargement or masses. Ovaries not palpated. No adnexal tenderness. MENTAL: Alert and oriented to person, place and time. IMPRESSION/REPORT/PLAN Vaginal atrophy. Wet prep will be obtained and we will notify her of the results. Patient has been previously treated for yeast and it was not successful. At this time we will go ahead and treat her for possible bacterial vaginosis. Patient will take clindamycin 2% vaginal cream once a night for 7 days. Patient was instructed if her symptoms do not improve or worsen that I would like her to follow upwith ST[facility] REFINISHER for further recommendation. Patient verbalizes understanding agrees with plan of care. Abel Shafer CNP/anna marie Electronically Signed By: ABEL SHAFER CNP On: 11/13/2012 09:49 PM Modified by and Electronically Signed by: ABEL SHAFER CNP On: 11/13/2012 09:49 PM Source: [facility] MHSDOLBEYNONRADSYS Document Id: [id number] documented in this encounter Miscellaneous Notes Miscellaneous - Conversion, Historical Provider Ser - 12/15/2012 11:50 AM CDT Medication Refill Msg Document Contains Addenda Addendum by ELENO MORALES LPN on 16 December 2012 10:58:15 CDT faxed Addendum by LUI GAUTHIER MD on 15 December 2012 13:29:15 CDT From: LUI GAUTHIER MD To: LEVI JIMENEZ; Sent: 12/15/2012 13:29:15 CDT Subject: RE: Medication Refill Msg printed From: LEVI JIMENEZ To: LUI GAUTHIER MD; Cc: ELENO MORALES LPN; Sent: 12/15/2012 11:49:59 CDT Subject: Medication Refill Msg Caller is: ( ) Patient ( ) Mother ( ) Father ( ) Spouse ( ) Daughter ( ) Son ( ) Pharmacy ( ) Other: Provider: Pharmacy: [facility] [phone] # [phone] Name of Medications Needing Refill: Lorazepam 0.5mg tab Last Refill Date: 10/05/12, #10, 1 refill Additional Information: Last / Future Appointment:08/05/12 Disposition: ( ) Send to Pharmacy ( ) Call to Pharmacy ( ) Patient will hand picker Script ( ) Mail Rx to Patient Source: [facility] POWERCHART Document Id: [id number] Miscellaneous - Abel Duenas APRN, C.N.P. - 10/25/2012 12:19 PM CDT Results Notification Document Contains Addenda Addendum by AUGUSTUS GUERRERO on 25 October 2012 13:19:00 CDT Patient notified. From: ABEL SHAFER CNP To: MARCIO [facility] Family Medicine Nurse; Sent: 10/25/2012 12:19:36 CDT ! Show up: 10/25/2012 17:19:36 [facility] Subject: Results Notification Actions: Notify patient of results Reminder Comments: Negative for yeast, trich, clue cells, or sperm. Call on cell [phone] Results: Date Result Type Ind Result Name MBO Review WET Prep WBC's Source: [facility] PharmAtheneCHART Document Id: [id number] Miscellaneous - Abel Duenas, ORION, C.N.P. - 10/25/2012 11:40 AM CDT Ambulatory Patient Summary [address] [address] Visit Information Name: ISADORA BACK [facility] Number: [id number] Visit Date: 10/25/2012 11:40:19 Attending Provider: ABEL SHAFER [facility] Primary Care Provider: LUI GAUTHIER MD FRANCIS ISADORA NIX has been given the following list of medications: Your Medications It is important to take your medications as directed. Use a pill box or chart to help remind you to take your medications. Please let your doctor or nurse know if you have problems taking your medications. Medication/Strength Dose Route Frequency Indications/Special Instructions/Comments/Notes clindamycin topical (clindamycin 2% vaginal cream) 1 lidia Vaginal once a day (at bedtime) for 7 Days lorazepam (lorazepam 0.5 mg oral tablet) 0.5 mg Oral three times a day as needed for Anxiety Misc Prescription (Misc Prescription) 1 tab Oral once a day Acidphollis conjugated estrogens topical (Premarin 0.625 mg/g vaginal cream with applicator) 0.5 gm Vaginal 2 times a week potassium citrate (potassium citrate) Oral albuterol (ProAir [...] your provider for clarification. Additional Information: Source: [facility] POWERCHART Document Id: [id number] Miscellaneous - Abel Duenas APRN, C.N.P. - 10/25/2012 11:40 AM CDT Ambulatory Depart Summary [address] [address] Visit Information Name: ISADORA BACK [facility] Number: [id number] Visit Date: 10/25/2012 11:40:18 Attending Provider: ABEL SHAFER CNP Primary Care [...] medications. Medication/Strength Dose Route Frequency Indications/Special Instructions/Comments/Notes clindamycin topical (clindamycin 2% vaginal cream) 1 lidia Vaginal once a day (at bedtime) for 7 Days lorazepam (lorazepam 0.5 mg oral tablet) 0.5 mg Oral three times a day as needed for Anxiety Misc Prescription (Misc Prescription) 1 tab Oral once a day Acidphollis conjugated estrogens topical (Premarin 0.625 mg/g vaginal cream with applicator) 0.5 gm Vaginal 2 times a week potassium citrate (potassium citrate) Oral albuterol (ProAir [...] your provider for clarification. Additional Information: Source: [facility] POWERCHART Document Id: [id number] Miscellaneous - Conversion, Historical Provider Ser - 10/25/2012 11:13 AM CDT Adult Pododermatologist Intake/History Adult Pododermatologist Intake/History Entered On: 10/25/2012 11:16 CDT Performed On: 10/25/2012 11:13 CDT by AUGUSTUS GUERRERO Intake Chief Complaint : yeast infection Temperature Core : 36.7 DegC(Converted to: 98.1 DegF) Peripheral Pulse Rate : 60 /min Respiratory Rate : 16 /min Heart Rhythm : Regularly irregular Systolic Blood Pressure : 118 mmHg Diastolic Blood Pressure : 78 mmHg NIBP Mean : 91 mmHg BP Location : Right upper extremity Blood Pressure Cuff Size : Regular Actual Weight : 57.1 kg(Converted to: 125 lb 14 oz) Weight Source : Standing scale Dosing Weight Clinic : 57.1 kg AUGUSTUS GUERRERO - 10/25/2012 11:13 CDT General Info Information Given By : Patient Preferred Communication Mode : Verbal Languages : Malagasy AUGUSTUS GUERRERO - 10/25/2012 11:13 CDT Subjective Pain Symptoms : No AUGUSTUS GUERRERO - 10/25/2012 11:13 CDT Dependent Habits Tobacco Use/Currently Using : No Smoking Status : Former smoker AUGUSTUS GUERRERO - 10/25/2012 11:13 CDT Tobacco Use Grid Last Use : quit 1969 AUGUSTUS GUERRERO - 10/25/2012 11:13 CDT Source: [facility] POWERCHART Document Id: [id number] documented in this encounter Plan of Treatment Not on filedocumented as of this encounter Procedures Procedure Name Priority Date/Time Associated Comments Diagnosis WET PREP EXAM, Routine 10/25/2012 11:43 AM Result s for this UROGENITAL CDT procedure are i n the results section. documented in this encounter Results Wet Prep Exam, Urogenital (10/25/2012 11:43 AM CDT) P athologist Signature HXWet Prep POWERCHART HXFinal No yeast, POWERCHART Trichomonas , clue cells, or sperm seen. Specimen (Source) Anatomical Collection Method Collection Time Re ceived Time Location / / Volume Laterality Vagina 10/25/2012 11:43 AM CDT Abel Duenas APRN C.N.P., D.N.P. LAB MICROBIOLOGY - GENERAL ORDERABLES Performing Organization Address City/State/ZIP Code Phon e Number POWERCHART documented in this encounter Visit Diagnoses Not on filedocumented in this encounter
--- OUTSIDE RECORDS SUMMARY | 2022-02-13 09:20 | XMS_ITS | Encounter Summary ---
:1945 Author Organization [facility] Address [address] [place] [address] Care Team Providers Name Role Phone Unavailable Primary Care Provider Unavailable Encounter Details Date Type Department Care Team Description 05/31/2012 Hospital Encounter [facility]X [facility] Nacho Duenas, ORION, C.N.P., D. N.P. [address] [place], [place] [address] (Wo rk) Social History [...] Sign Reading Time Taken Comments Blood Pressure 100/70 05/31/2012 10:24 AM VACATION GUIDE Pulse 90 05/31/2012 10:24 AM VACATION GUIDE Temperature - - Respiratory Rate 16 05/31/2012 10:24 AM VACATION GUIDE Oxygen Saturation - - Inhaled Oxygen Concentration - - Weight 57.6 kg (126 lb 15.8 oz) 05/31/2012 10:24 AM VACATION GUIDE Height - - Body Mass Index 22.5 04/08/2012 3:23 PM VACATION GUIDE documented in this encounter Medications at Time of Discharge Medication Sig Dispensed Refills Start Date End Date calcium carbonate-vitamin Chew 1 tablet. 0 2009 D3 1,250 mg (500 mg calcium)-400 unit per chewable tablet multivitamin tablet Take 1 tablet by 0 06/28/2009 mouth. documented as of this encounter Progress Notes Abel Duenas APRN, C.N.P. - 05/31/2012 10:16 AM CST [id number] CHIEF COMPLAINT/REASON FOR VISIT Bronchitis HISTORY OF PRESENT ILLNESS The patient is a 67-year-old female who presents to the clinic for cold symptoms for 5 to 7 days. She complains of fever, chills, nausea, shortness of breath with activity and chest tightness. She states that she cannot lay down flat because she cannot stop coughing. She denies vomiting or chest pain.She has taken an vjjy-esn-vdabrkd [employer]ee cough and sinus medication. She also takes a herbal supplement for congestion called Simmilfan. Patient states that during the summer, she does fairly well. However, she did get whooping cough this past summer. Patient is due for a current TDaP. Patient states that she is allergic to dust, however she does not like to take antihistamines because they make her feel dizzy. CURRENT MEDICATIONS See depart summary. ALLERGIES See EMR PAST MEDICAL/SURGICAL HISTORY Updated and see EMR SOCIAL HISTORY The patient is and has 3 children. She is retired from working with [employer]. FAMILY HISTORY Unchanged and see EMR. VITAL SIGNS See EMR PHYSICAL EXAM GENERAL: Well-appearing female in no acute distress. SKIN: Warm, dry and pink. No rashes or lesions. HEAD: Normocephalic. No tenderness with palpation over the frontal or maxillary sinuses. EYES: Conjunctivae clear. Sclerae white. No drainage. ENT: Ears: Ear canals clear bilaterally. TMs dull. No erythema. Nose: Nasal mucosa edematous and injected. Throat: Posterior pharynx raw and moist. No lesions or exudate. LYMPH NODES: Moderate cervical lymphadenopathy. LUNGS: Clear to auscultation. HEART: Regular rate and rhythm. No murmurs. ABDOMEN: Flat, soft, nondistended. No organomegaly or masses. No tenderness on palpation. Bowel sounds x4 quadrant. MENTAL: Alert and oriented to person, place and time. IMPRESSION/REPORT/PLAN 1. Cough. Patient was instructed this could be still viral at this point in time; however, she is adamant that she be treated with amoxicillin. Did discuss she was recently treated with amoxicillin in March and did not want her to become resistant to antibiotics. Patient states that she cannot takeAugmentin due to diarrhea. The last time she took Bactrim, that also did not agree with her stomach.Patient also had problems with Levaquin due to tendon problems. Patient was given a prescription foramoxicillin 875 mg twice a day for 10 days. She was encouraged to rest, increase her fluids and takeTylenol and ibuprofen as needed for discomfort. Patient will be given a prescription for albuterol to help with coughing and chest tightness. She can take 2 puffs every 4 hours as needed for coughing, wheezing or shortness of breath. Patient was also encouraged to use cdpj-pyr-tmtvktn Mucinex to help expel chest and nasal congestion as well. 2. Allergic rhinitis. Patient was given printed information on Singulair. If patient cannot tolerateantihistamine, she may benefit from Singulair during the winter months to prevent recurrent cough and bronchitis. Patient will read over the information and let me know. 3. Preventative health services. Patient is inquiring about her bone density test results, however they have not been scanned into the EMR yet. Patient was also curious when her colonoscopy was due. Did look up her scanned in records from [facility] and was last done in July 2009, and was to be repeated in 3 years due to polyps. This information was given to the patient. Patient was also instructed to return on a nurse-only calendar to have her TDaP updated as well. Patient will followup as needed. Patient verbalizes understanding and agrees with plan of care. Abel Shafer CNP/merced DOCID: [id number] Electronically Signed By: ABEL SHAFER CNP On: 06/15/2012 09:44 PM Source: [facility] MHSDOLBEYNONRADSYS Document Id: [id number] TION GUIDE documented in this encounter Miscellaneous Notes Miscellaneous - Abel Duenas APRN, C.N.P. - 05/31/2012 11:08 AM VACATION GUIDE Ambulatory Patient Summary [address] [address] Visit Information Name: ISADORA BACK [facility] Number: [id number] Visit Date: 05/31/2012 11:08:13 Attending Provider: ABEL SHAFER CNP Primary Care [...] Dose Route Frequency Indications/Special Instructions/Comments amoxicillin (amoxicillin 875 mg oral tablet) 875 mg Oral two times a day for 10 Days albuterol (ProAir HFA 90 mcg/inh inhalation aerosol) [...] your provider for clarification. Additional Information: Source: [facility] POWERCHART Document Id: [id number] TION GUIDE Miscellaneous - Abel Duenas APRN, C.N.P. - 05/31/2012 11:08 AM VACATION GUIDE Ambulatory Depart Summary [address] [address] Visit Information Name: ISADORA BACK [facility] Number: [id number] Visit Date: 05/31/2012 11:08:12 Attending Provider: ABEL SHAFER [facility] Primary Care Provider: LUI GAUTHIER MD ISADORA BACK has been given the following list of medications: Your Medications It is important to take your medications as directed. Use a pill box or chart to help remind you to take your medications. Please let your doctor or nurse know if you have problems taking your medications. Medication/Strength Dose Route Frequency Indications/Special Instructions/Comments amoxicillin (amoxicillin 875 mg oral tablet) 875 mg Oral two times a day for 10 Days albuterol (ProAir HFA 90 mcg/inh inhalation aerosol) [...] your provider for clarification. Additional Information: Source: [facility] POWERCHART Document Id: [id number] TION GUIDE Miscellaneous - Conversion, Historical Provider Ser - 05/31/2012 10:24 AM VACATION GUIDE Adult Instrumental Teacher Intake/History Adult Instrumental Teacher Intake/History Entered On: 05/31/2012 10:26 VACATION GUIDE Performed On: 05/31/2012 10:24 VACATION GUIDE by AUGUSTUS GUERRERO S Intake Chief Complaint : bronchitis Onset of Symptoms : 5 days Temperature Core : 37.0C(Converted to: 98.6DegF) Peripheral Pulse Rate : 90/min Respiratory Rate : 16/min Heart Rhythm : Regular Systolic Blood Pressure : 100mmHg Diastolic Blood Pressure : 70mmHg NIBP Mean : 80mmHg BP Location : Right upper extremity Blood Pressure Cuff Size : Regular SpO2 : 99% Oxygen Therapy : Room air Actual Weight : 57.6kg(Converted to: 127lb 0oz) Weight Source : Standing scale Dosing Weight Clinic : 57.60kg AUGUSTUS GUERRERO 05/31/2012 10:24 VACATION GUIDE General Info Information Given By : Patient Preferred Communication Mode : Verbal Languages : Portuguese AUGUSTUS GUERRERO 05/31/2012 10:24 VACATION GUIDE Subjective Pain Symptoms : No AUGUSTUS GUERRERO 05/31/2012 10:24 VACATION GUIDE Dependent Habits Tobacco Use/Currently Using : No Smoking Status : Former smoker AUGUSTUS GUERRERO 05/31/2012 10:24 VACATION GUIDE Tobacco Use Grid Last Use : quit 1970 AUGUSTUS GUERRERO 05/31/2012 10:24 VACATION GUIDE Allergy Allergies (Active) sulfa drugs Estimated Onset Date: Unspecified ; Created By: ELENO MORALES LPN; Reaction Status: Active ; Category: Drug ; Substance: sulfa drugs ; Type: Allergy ; Updated By: ELENO MORALES LPN; Reviewed Date: 05/31/2012 10:23 VACATION GUIDE Source: [facility] POWERCHART Document Id: [id number] documented in this encounter Plan of Treatment Not on filedocumented as of this encounter Visit Diagnoses Not on filedocumented in this encounter
--- OUTSIDE RECORDS SUMMARY | 2022-02-13 09:20 | XMS_ITS | Encounter Summary ---
:1945 Author Organization [facility] Address [address] [place] [address] Care Team Providers Name Role Phone Unavailable Primary Care Provider Unavailable Encounter Details Date Type Department Care Team Description 02/24/2013 Hospital Encounter HX [facility] FB FAMILYPRA Maura Newton M.D. Social History Tobacco Use Types Packs/Day Years [...] Sign Reading Time Taken Comments Blood Pressure 144/84 02/24/2013 3:23 PM ARMY RANGER Pulse 70 02/24/2013 3:23 PM ARMY RANGER Temperature - - Respiratory Rate 20 02/24/2013 3:23 PM ARMY RANGER Oxygen Saturation - - Inhaled Oxygen Concentration - - Weight 57 kg (125 lb 10.6 oz) 02/24/2013 3:23 PM ARMY RANGER Height - - Body Mass Index 21.72 [...] documented as of this encounter Progress Notes Cedrick Newton M.D. - 02/24/2013 3:14 PM CST [id number] CHIEF COMPLAINT/REASON FOR VISIT Headaches, earaches. HISTORY OF PRESENT ILLNESS This 67-year-old female patient had a flu shot on February 16. She had the lower dose flu shot, not the high-dose flu zone, given to older people. Since then she has had headaches and earaches, migraines. She has some nausea but she is also on doxycycline for a female infection. EMR record reviewed and updated. SYSTEMS REVIEW RESPIRATORY: No cough or shortness of breath. CARDIOVASCULAR: No palpitation of the heart, no chest pain. GI: Nausea. No vomiting, diarrhea, constipation or recent change in weight. : No dysuria, no hematuria. All other systems reviewed and negative, except as mentioned above. PHYSICAL EXAMINATION SKIN: Clear. EYES: Pupils equal, round, react to light and accommodation; EOMs full; fundi no papilledema, hemorrhage or exudate; lids normal. ENT: Ears: TMs clear; external auditory canals clear. Throat clear. Tongue normal. Teeth normal. LYMPH NODES: Neck: no lymphadenopathy. THYROID: Normal size, symmetric. HEART: No murmur, gallop or rub; normal size; PMI arteries normal. LUNGS: Clear to percussion and auscultation, normal to inspection, no retractions, no dyspnea. ABDOMEN: No masses, no organomegaly, nontender; normal to inspection, percussion and palpation; no distention. EXTREMITIES: Legs: no edema. IMPRESSION/REPORT/PLAN 1. Headaches. 2. Earache. CBC shows a shifting towards lymphocytes. PLAN: Continue with the doxycycline as prescribed and recheck in 1 to 2 weeks with primary provider Soledad Shafer CNP. Return sooner if needed. 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 drainage, right ear hurts, headaches constant. right side. Teeth hurt. Being treated for a bacterial infection by ambulance driver paramedic. She is on Doxycycline. Onset of Symptoms : Last . Temperature Core : 37.1 DegC(Converted to: 98.8 DegF) Peripheral Pulse Rate : 70 /min Respiratory Rate : 20 /min Heart Rhythm : Regular Systolic Blood Pressure : 144 mmHg (HI) Diastolic Blood Pressure : 84 mmHg NIBP Mean : 104 mmHg BP Location : Left upper extremity Blood Pressure Cuff Size : Regular Actual Weight : 57 kg(Converted to: 125 lb 11 oz) Weight Source : Standing scale Dosing Weight Clinic : 57 kg KARI BURGESS - 02/24/2013 15:23 ARMY RANGER General Info Information Given By : Patient Preferred Communication Mode : Verbal Languages : Syriac KARI BURGESS - 02/24/2013 15:23 ARMY RANGER Subjective Pain Symptoms : Yes KARI BURGESS - 02/24/2013 15:23 ARMY RANGER Dependent Habits Tobacco Use/Currently Using : No Tobacco Use/Last 12 months : Yes Smoking Status : Former smoker KARI BURGESS - 02/24/2013 15:23 ARMY RANGER Tobacco Use Grid Last Use : quit 1970 KARI BURGESS - 02/24/2013 15:23 ARMY RANGER Alcohol Use : Yes KARI BURGESS - 02/24/2013 15:23 ARMY RANGER Caffeine Use Grid Caffeine Use : Current Type : Coffee Frequency : Daily Amount : 3 Last Use : today KARI BURGESS - 02/24/2013 15:23 ARMY RANGER Source: [facility] POWERCHART Document Id: [id number] ARMY RANGER!37 documented in this encounter Plan of Treatment Not on filedocumented as of this encounter Procedures Procedure Name Priority Date/Time Associated Comments Diagnosis AUTOMATED Routine 02/24/2013 4:23 PM Results f or this DIFFERENTIAL, B ARMY RANGER procedure ar e in the results section. CBC WITH Routine 02/24/2013 4:23 PM Results f or this DIFFERENTIAL, B ARMY RANGER procedure ar e in the results section. CREATININE WITH Routine 02/24/2013 4:23 PM Result s for this EGFR, S/P ARMY RANGER procedure are i n the results section. documented in this encounter Results (ABNORMAL) Automated Differential (02/24/2013 4:23 PM ARMY RANGER) [facility] gist Method Time Signature Neutro % 56.6 34.0 - POWERCHART 71.1 Lymphocytes % 34.8 19.3 - POWERCHART 51.7 HX [place] % 6.5 4.7 - 12.5 POWERCHART HX Eos % 1.6 0.7 - 5.8 POWERCHART HX Baso % 0.5 0.1 - 1.2 POWERCHART Absolute 4.81 1.70 - POWERCHART Neutrophils 7.00 109L Lymphocytes 2.96 (H) 0.90 - POWERCHART 2.90 X109L Monocytes 0.55 0.30 - POWERCHART 0.90 X109L Eosinophils 0.14 0.05 - POWERCHART 0.50 X109L Absolute 0.04 0.00 - POWERCHART Basophil 0.30 X109L Specimen Anatomical Collection Method Collection Time Receive d Time (Source) Location / / Volume Laterality Blood 02/24/2013 4:23 PM 3 4:23 ARMY RANGER PM ARMY RANGER Cedrick Newton M.D. LAB BLOOD ADD-ON Performing Organization Address City/State/ZIP Code Phon e Number POWERCHART CBC with Differential (02/24/2013 4:23 PM ARMY RANGER) P athologist Signature Leukocytes 8.5 3.4 - 10.5 POWERCHART X109L Erythrocytes 4.11 3.90 - POWERCHART 5.03 [id number] Hemoglobin 12.8 12.0 - POWERCHART 15.5 GDL Hematocrit 36.5 34.9 - POWERCHART 44.5 MCV 88.8 82.0 - POWERCHART 98.0 FL Platelet Count 333 150 - 450 POWERCHART X109L HX RDW 12.2 11.9 - POWERCHART 15.5 HXDifferential? Auto POWERCHART Specimen (Source) Anatomical Collection Method Collection Time Re ceived Time Location / / Volume Laterality Blood 02/24/2013 4:23 PM ARMY RANGER Cedrick Newton M.D. LAB BLOOD ADD-ON Performing Organization Address City/State/ZIP Code Phon e Number POWERCHART Creatinine with eGFR (02/24/2013 4:23 PM ARMY RANGER) P athologist Signature Creatinine 0.8 0.7 - 1.2 POWERCHART MGDL HXeGFR (MDRD) >60 MLMIN POWERCHART eGFR >60 MLMIN POWERCHART Black/ Specimen (Source) Anatomical Collection Method Collection Time Re ceived Time Location / / Volume Laterality Blood 02/24/2013 4:23 PM ARMY RANGER Cedrick Newton M.D. LAB BLOOD ADD-ON Performing Organization Address City/State/ZIP Code Phon e Number POWERCHART documented in this encounter Visit Diagnoses Not on filedocumented in this encounter
--- OUTSIDE RECORDS SUMMARY | 2022-02-13 09:20 | XMS_ITS | Encounter Summary ---
:1945 Author Organization [facility] Address [address] [place] [address] Care Team Providers Name Role Phone Unavailable Primary Care Provider Unavailable Encounter Details Date Type Department Care Team Description 02/28/2013 Hospital Encounter HX [facility] FB[facility]F FAMILYPRA Nacho Duenas, ORION, C.N.P., D. N.P. [address] [place], [place] [address] (Wo rk) Social History [...] Sign Reading Time Taken Comments Blood Pressure 118/60 02/28/2013 3:12 PM SAP TECHNICAL ARCHITECT Pulse 70 02/28/2013 3:12 PM SAP TECHNICAL ARCHITECT Temperature - - Respiratory Rate 18 02/28/2013 3:12 PM SAP TECHNICAL ARCHITECT Oxygen Saturation - - Inhaled Oxygen Concentration - - Weight 57.8 kg (127 lb 6.8 oz) 02/28/2013 3:12 PM SAP TECHNICAL ARCHITECT Height 162 cm (5' 3.78) 02/28/2013 3:12 PM SAP TECHNICAL ARCHITECT Body Mass Index 22.02 02/28/2013 3:12 PM SAP TECHNICAL ARCHITECT documented in this encounter Medications at Time [...] Progress Notes Abel Duenas, ORION, C.N.P. - 02/28/2013 2:58 PM CST [id number] CHIEF COMPLAINT/REASON FOR VISIT Needs to talk. HISTORY OF PRESENT ILLNESS The patient is a 67-year-old female who presents to discuss concerns over her antibiotic, doxycycline. Patient was seen on February 16, 2013, by my colleague, Nivia Trujillo CNP, for treatment for Ureaplasma. Patient was started on doxycycline 100 mg twice a day for 10 days. Patient states at first she was having improvement of her vaginal itchiness and discomfort. However it has now returned. Patient also had a prescription for terconazole, which she has been using half applicator as well. Patient was not feeling well and was seen by Jair Shields M.D. on February 24, 2013. She had a CBC done that did not indicate bacterial infection. She most likely had viral syndrome. Patient was unsure if she was having symptoms from her recent influenza vaccination. Ever since starting the doxycycline the patient has had a constant headache. She has been using Imitrex but with no relief. Her headache is currently rated 2 to 3 out at 10 and tolerable at this time. Patient is eating and drinking okay. She denies fever, vomiting, shortness breath or chest pain. She does complain of chills and nausea. Patient was instructed by Dr. Shields that she could decrease her doxycycline 100 mg once a day however she does not believe that she can do any more days of the doxycycline. Patient was wondering if swathi needed to 200 mg at doxycycline a day due to her weight. Patient brings up a concern that antibiotic dosing for children is based on weight and because she does not weight that much she was unsure she needed a full dose. Patient was reassured with the dosing of doxycycline even if calculated byweight, which would only be for someone less than 8 years old, she was still need more than 100 mg of doxycycline a day. MEDICATIONS See depart summary. ALLERGIES See EMR. PAST MEDICAL/SURGICAL HISTORY Unchanged see EMR. SOCIAL HISTORY Unchanged see EMR. FAMILY HISTORY Unchanged see EMR. VITAL SIGNS See EMR. PHYSICAL EXAMINATION GENERAL: Well-appearing female in no acute distress. SKIN: Warm, dry and pale. HEAD: Normocephalic. LYMPH: No cervical lymphadenopathy. LUNGS: Clear to auscultation. No wheezes or crackles. HEART: Regular rate and rhythm. No murmurs. ABDOMEN: Flat, soft, nondistended. No organomegaly or masses. No tenderness on palpation. Bowel sounds times 4 quadrants. MENTAL: Alert and oriented to person, place and time. IMPRESSION/REPORT/PLAN Ureaplasma. I did look on UpToDate and found that Zithromax or fluoroquinolone could be an alternative treatment to doxycycline. However doxycycline is superior treatment. Patient will at this time. Discontinue the doxycycline due to side effects. Patient will be given a prescription for Z-Jason. I did consult with Nivia Trujillo in regards to doing this as well. Patient does have appointment in March to follow up with Urogynecology at [facility]. She will keep this appointment. Patientwas instructed if her headache continues to let me know. Patient will follow up as needed. Patient verbalizes understanding and agrees with plan of care. Abel Shafer CNP/marlene Electronically Signed By: ABEL SHAFER CNP On: 03/19/2013 10:58 AM Source: [facility] MHSDOLBEYNONRADSYS Document Id: [id number] TECHNICAL ARCHITECT documented in this encounter Miscellaneous Notes Miscellaneous - Abel Duenas APRN C.N.P. - 02/28/2013 3:49 PM SAP TECHNICAL ARCHITECT Ambulatory Patient Summary [address] [address] Visit Information Name: ISADORA BACK [facility] Number: [id number] Visit Date: 02/28/2013 15:49:50 Attending Provider: ABEL SHAFER CNP Primary Care Provider: LUI GAUTHIER MD FRANCIS ISADORA BOYD has been given the following list of medications: Your Medications It is important to take your medications as directed. Use a pill box or chart to help remind you to take your medications. Please let your doctor or nurse know if you have problems taking your medications. Medication/Strength Dose Route Frequency Indications/Special Instructions/Comments/Notes azithromycin (Zithromax Z-Jason 250 mg oral tablet) 2 tablets on day 1, then 1 tablet on days 2-5 Oralas directed for 5 Days terconazole topical (Terazol 7 vaginal cream) 1 [...] your provider for clarification. Additional Information: Source: [facility] POWERCHART Document Id: [id number] TECHNICAL ARCHITECT Miscellaneous - Abel Duenas APRN, C.N.P. - 02/28/2013 3:49 PM SAP TECHNICAL ARCHITECT Ambulatory Depart Summary [address] [address] Visit Information Name: ISADORA BACK [facility] Number: [id number] Visit Date: 02/28/2013 15:49:49 Attending Provider: ABEL SHAFER [facility] Primary Care Provider: LUI GAUTHIER MD FRANCIS ISADORA NIX has been given the following list of medications: Your Medications It is important to take your medications as directed. Use a pill box or chart to help remind you to take your medications. Please let your doctor or nurse know if you have problems taking your medications. Medication/Strength Dose Route Frequency Indications/Special Instructions/Comments/Notes azithromycin (Zithromax Z-Jason 250 mg oral tablet) 2 tablets on day 1, then 1 tablet on days 2-5 Oralas directed for 5 Days terconazole topical (Terazol 7 vaginal cream) 1 [...] your provider for clarification. Additional Information: Source: [facility] POWERCHART Document Id: [id number] TECHNICAL ARCHITECT Miscellaneous - Conversion, Historical Provider Ser - 02/28/2013 3:12 PM SAP TECHNICAL ARCHITECT Adult [employer] Program Coordinator Intake/History Adult [place] Program Coordinator Intake/History Entered On: 02/28/2013 15:16 SAP TECHNICAL ARCHITECT Performed On: 02/28/2013 15:12 SAP TECHNICAL ARCHITECT by BREE DARNELL LPN Intake Chief Complaint : migraines, labs elevated Temperature Core : 37 DegC(Converted to: 98.6 DegF) Peripheral Pulse Rate : 70 /min Respiratory Rate : 18 /min Systolic Blood Pressure : 118 mmHg Diastolic Blood Pressure : 60 mmHg NIBP Mean : 79 mmHg BP Location : Right upper extremity Blood Pressure Cuff Size : Regular Height : 162 cm(Converted to: 5 ft 4 inch(es), 63.78 inch(es)) Actual Weight : 57.8 kg(Converted to: 127 lb 7 oz) Weight Source : Standing scale Dosing Weight Clinic : 57.8 kg Clinic BSA : 1.61 Body Mass Index : 22.02 kg/m2 BREE DARNELL LPN - 02/28/2013 15:12 SAP TECHNICAL ARCHITECT General Info Languages : Stateless BREE DARNELL LPN - 02/28/2013 15:12 SAP TECHNICAL ARCHITECT Subjective Pain Symptoms : Yes BREE DARNELL LPN - 02/28/2013 15:12 SAP TECHNICAL ARCHITECT Pain Pain Assessment Grid Pain 1 Location : Head Laterality : Right Intensity : 3 Time Pattern : Intermittent Onset : Gradual BREE DARNELL LPN - 02/28/2013 15:12 SAP TECHNICAL ARCHITECT Dependent Habits Tobacco Use/Currently Using : No Smoking Status : Former smoker BREE DARNELL LPN - 02/28/2013 15:12 SAP TECHNICAL ARCHITECT Tobacco Use Grid Last Use : quit 1970 BREE DARNELL LPN - 02/28/2013 15:12 SAP TECHNICAL ARCHITECT Caffeine Use Grid Caffeine Use : Current Type : Coffee Frequency : Daily Amount : 3 Last Use : today BREE DARNELL LPN - 02/28/2013 15:12 SAP TECHNICAL ARCHITECT Source: [facility] POWERCHART Document Id: [id number] SAP TECHNICAL ARCHITECT!42 documented in this encounter Plan of Treatment Not on filedocumented as of this encounter Visit Diagnoses Not on filedocumented in this encounter
--- OUTSIDE RECORDS SUMMARY | 2022-02-13 09:21 | XMS_ITS | Encounter Summary ---
:1945 Author Organization [facility] Address [address] [place] [address] Care Team Providers Name Role Phone Unavailable Primary Care Provider Unavailable Encounter Details Date Type Department Care Team Description 02/20/2008 Hospital Encounter HX NO MAPPING Luisa Roy M.D. [address] [place], [place] [phone] (Wo rk) Social History [...] Diagnosis Comme nts BI BREAST SCREENING Routine 02/20/2008 8:52 AM Re sults for this BILATERAL COOPERATIVE EXTENSION AGENT procedure are i n the results section. documented in this encounter Results BI Breast Screening Bilateral (02/20/2008 8:52 AM COOPERATIVE EXTENSION AGENT) Anatomical Region Laterality Modality Breast Bilateral Mammography Specimen (Source) Anatomical Collection Method Collection Time Re ceived Time Location / / Volume Laterality 02/20/2008 8:52 AM COOPERATIVE EXTENSION AGENT Impressions 02/20/2008 8:52 AM COOPERATIVE EXTENSION AGENT 1. Negative, normal mammogram, ACR categ ory 1. 2. I recommend routine yearly mammograms on this patient. ?? BREAST MAMMOGRAPHY-GENERAL OBSERVATION: The false negative rate for mammography it is 10 to 15%. It cannot b e used, therefore, to replace regular physical examination. A normal o r noncontributory mammogram report should also not deter the aggress angelique further workup of any suspected palpable masses. Narrative 02/20/2008 8:52 AM COOPERATIVE EXTENSION AGENT Originally Signed By UNKNOWN, PERSONNEL Reason for exam: YEARLY Bilateral craniocaudal and oblique views of the breast were obtained, and compared to the patient's prior stud ies of 02/15/2007 and prior. ?? The breast parenchyma remains predominan tly fatty and fibroglandular in appearance. There are no suspicious g rouping of calcifications, dominant nodules, areas of skin thickeni ng or nipple retraction to suggest malignancy. ? Procedure Note Provider, Jacquelyn Riggs - 09/22/2016F ormatting of this note might be different from the original. Originally Signed By UNKNOWN, PERSONNEL Reason for exam: YEARLY Bilateral craniocaudal and oblique views of the breast were obtained, and compared to the patient's prior stud ies of 02/15/2007 and prior. The breast parenchyma remains predominan tly fatty and fibroglandular in appearance. There are no suspicious g rouping of calcifications, dominant nodules, areas of skin thickeni ng or nipple retraction to suggest malignancy. IMPRESSION: 1. Negative, normal mammogram, ACR categ ory 1. 2. I recommend routine yearly mammograms on this patient. BREAST MAMMOGRAPHY-GENERAL OBSERVATION: The false negative rate for mammography it is 10 to 15%. It cannot b e used, therefore, to replace regular physical examination. A normal o r noncontributory mammogram report should also not deter the aggress angelique further workup of any suspected palpable masses. Historical Provider IMG BI PROCEDURES documented in this encounter Visit Diagnoses Not on filedocumented in this encounter
--- OUTSIDE RECORDS SUMMARY | 2022-02-13 09:21 | XMS_ITS | Encounter Summary ---
:1945 Author Organization [facility] Address [address] [place] [address] Care Team Providers Name Role Phone Unavailable Primary Care Provider Unavailable Encounter Details Date Type Department Care Team Description 04/08/2012 Hospital Encounter HX [facility] FB FAMILYPRA Luisa Crockett i, M.D. [address] [place] [address] (Wo rk) Social History Tobacco [...] Sign Reading Time Taken Comments Blood Pressure 112/70 04/08/2012 3:23 PM DRAW FRAME TENDER Pulse 72 04/08/2012 3:23 PM DRAW FRAME TENDER Temperature - - Respiratory Rate 16 04/08/2012 3:23 PM DRAW FRAME TENDER Oxygen Saturation - - Inhaled Oxygen Concentration - - Weight 57 kg (125 lb 10.6 oz) 04/08/2012 3:23 PM DRAW FRAME TENDER Height 160 cm (5' 2.99) 04/08/2012 3:23 PM DRAW FRAME TENDER Body Mass Index 22.27 04/08/2012 3:23 PM DRAW FRAME TENDER documented in this encounter Medications at Time of Discharge Medication Sig Dispensed Refills Start Date End Date calcium carbonate-vitamin Chew 1 tablet. 0 2009 D3 1,250 mg (500 mg calcium)-400 unit per chewable tablet multivitamin tablet Take 1 tablet by 0 06/28/2009 mouth. documented as of this encounter H&P Notes Luisa Whitten M.D. - 04/08/2012 3:01 PM CST [id number] CHIEF COMPLAINT/REASON FOR VISIT Review medications, review medical concerns, update preventive services CURRENT MEDICATIONS Imitrex 25 mg as needed for migraine. ALLERGIES Sulfa SYSTEMS REVIEW She has been eating a gluten-free diet and feels that this is helping her bowel issues. She would like to continue physical therapy out at [facility] for neck pain. She has enjoyed good health over her last few years, having needed to change clinics for insurance reasons. No headaches, numbness or tingling. No changes [...] or behavioral difficulties. PAST MEDICAL/SURGICAL HISTORY 1. Episode of diverticulitis. 2. History of tendonitis of the right knee which she feels was secondary to Levaquin. 3. Osteopenia 4. Right breast lumpectomy with unknown pathology. 5. 3, para 3 6. Laparoscopic cholecystectomy HEALTH MAINTENANCE Tobacco use: None Lipid panel: 02/20/2008 Bone density: 04/25/2012, is scheduled Colonoscopy: 12/08/2007 Mammogram: 04/06/2012 Pap smear updated today. Influenza updated today. Pneumovax updated today. Tetanus vaccine: 01/23/2003 SOCIAL HISTORY She spends much time caring for her grandchildren. She continues to operate an [employer]. FAMILY HISTORY Mother with breast cancer in her 60's. She also had COPD, diabetes and hypertension. Father at age 80 of laryngeal cancer. He also had hypertension. She has a sister who has needed a pacemaker mike brother who at age 50 of laryngeal cancer. VITAL SIGNS HEIGHT: 160 cm WEIGHT: 57 kg TEMPERATURE: 37.1 RESPIRATIONS: 16 PULSE: 72 BLOOD PRESSURE: 112/70 PHYSICAL EXAM ENT: Tympanic membranes are normal bilaterally. Oropharynx [...] without lesions. Cervix is normal in appearance. Samples taken for Papsmear with cytobrush and spatula. Bimanual exam reveals small nontender uterus and adnexa. EXTREMITIES: Within normal limits. IMPRESSION/REPORT/PLAN 1. Health care maintenance. She is encouraged to maintain healthy body weight through diet and exercise. She is reminded of the need for monthly self breast exam, yearly eye and regular dental visits. Screening labs today are Pap smear. She should schedule a bone density. Influenza, Pneumovax and Adacel are updated today. 2. Osteopenia. Again, she should schedule a bone density. 3. Migraine headaches. We will continue with Imitrex. Luisa Gauthier M.D./merced DOCID: [id number] Electronically Signed By: LUISA GAUTHIER MD On: 06/16/2012 09:00 AM Source: [facility] MHSDOLBEYNONRADSYS Document Id: [id number] FRAME TENDER documented in this encounter Miscellaneous Notes Telephone Encounter - Conversion, Historical Provider Ser - 05/06/2012 10:14 AM CST Phone Message Document Contains Addenda Addendum by ELENO MORALES LPN on 06 May 2012 14:14:38 DRAW FRAME TENDER notified Addendum by LUISA GAUTHIER MD on 06 May 2012 12:55:25 DRAW FRAME TENDER From: LUISA GAUTHIER MD To: BREE DARNELL LPN; Sent: 05/06/2012 12:55:25 DRAW FRAME TENDER Subject: RE: Phone Message OK. I hope everything is ok From: BREE DARNELL LPN To: LUISA GAUTHIER MD; Cc: ELENO MORALES LPN; Sent: 05/06/2012 10:14:02 DRAW FRAME TENDER Subject: Phone Message Caller is: ( X ) Patient ( ) Mother ( ) Father ( ) Spouse ( ) Daughter ( ) Son ( ) Pharmacy ( ) Other: Physician: Patient MRN #: Reason for Call: Message: Patient calling requesting a Lorazepan perscription refill. previously was perscribed a PRNorder so she hasnt needed a refill in awhile as she just takes it once and awhile but she is having a very stressful time, with middle daughter in the hospital. and has run out and would like that refilled. Please advise. [phone] thanks :) Advice/Action: Source used: ( ) Verbalizes understanding [...] back cell phone number ( ) Source: [facility] [employer]ART Document Id: [id number] Luisa Woo M.D. - 04/15/2012 6:11 PM DRAW FRAME TENDER Results Notification Document Contains Addenda Addendum by SRIRAM LUNA LPN on 18 April 2012 08:19:16 DRAW FRAME TENDER Results mailed. From: LUISA GAUTHIER MD To: ELENO MORALES LPN Sent: 04/15/2012 18:11:45 DRAW FRAME TENDER ! Show up: 04/16/2012 00:11:45 [facility] Subject: Results Notification Actions: Notify patient of results Source: [facility] [employer] Document Id: [id number] Electronically signed by Conversion, [facility] Analysis Manager [id number] at 09/19/2016 4:05 PM CDT Luisa Woo M.D. - 04/09/2012 7:41 PM DRAW FRAME TENDER Ambulatory Patient Summary [address] [address] Visit Information Name: ISADORA BACK [facility] Number: [id number] Current Date: 04/09/2012 19:41:32 Physicians Attending Provider: LUISA GAUTHIER MD Primary Care Provider: LUISA GAUTHIER MD Your Medications Here is a list of your medications. It is important to take your medications as directed. Use a pillbox or chart to help remind you to take your medications. Please let your doctor or nurse know if you have problems taking your medications. Medication/Strength Dose Route Frequency Indications/Special Instructions/Comments albuterol (ProAir HFA 90 mcg/inh inhalation aerosol) 2 puff(s) Inhalation every 4 hours as needed for Wheezing amoxicillin (amoxicillin 875 mg oral tablet) 875 mg Oral two times a day for 10 Days sumatriptan (Imitrex 25 mg oral tablet) 25 mg Oral once as needed for Migraine headache repeat afterone hour if needed Attention: If you have any medications at home that are not on this list, DO NOT take them until youcontact your provider for clarification. Your Allergies & Intolerances Substance Reaction Symptoms Category Comments sulfa drugs Drug Your Problem List Problem Status Onset Comments Migraine headache Active Your Upcoming Appointments Date Time Location Reason Provider 04/25/2012 11:00 [facility] Bone Dens screening Your Goals/Additional instructions: Source: [facility] POWERCHART Document Id: [id number] FRAME TENDER Miscellaneous - Luisa Whitten M.D. - 04/09/2012 7:41 PM DRAW FRAME TENDER Ambulatory Depart Summary [address] [address] Visit Information Name: ISADORA BACK [facility] Number: [id number] Visit Date: 04/09/2012 19:41:31 Attending Provider: LUISA GAUTHIER MD Primary Care [...] medications. Medication/Strength Dose Route Frequency Indications/Special Instructions/Comments albuterol (ProAir HFA 90 mcg/inh inhalation aerosol) 2 puff(s) Inhalation every 4 hours as needed for Wheezing amoxicillin (amoxicillin 875 mg oral tablet) 875 mg Oral two times a day for 10 Days sumatriptan (Imitrex 25 mg oral tablet) 25 mg Oral once as needed for Migraine headache repeat afterone hour if needed Attention: If you have any medications at home that are not on this list, DO NOT take them until youcontact your provider for clarification. Additional Information: Source: [facility] POWERCHART Document Id: [id number] FRAME TENDER Miscellaneous - Conversion, Historical Provider Ser - 04/08/2012 3:23 PM DRAW FRAME TENDER Adult Sports Therapist Intake/History Adult Sports Therapist Intake/History Entered On: 04/08/2012 15:26 DRAW FRAME TENDER Performed On: 04/08/2012 15:23 DRAW FRAME TENDER by ELENO MORALES LPN Intake Chief Complaint : physical LMP Date : Postmenopausal Temperature Core : 37.1C(Converted to: 98.8DegF) Peripheral Pulse Rate : 72/min Respiratory Rate : 16/min Systolic Blood Pressure : 112mmHg Diastolic Blood Pressure : 70mmHg NIBP Mean : 84mmHg BP Location : Left upper extremity Blood Pressure Cuff Size : Regular Height : 160cm(Converted to: 5ft 3inch(es), 62.99inch(es)) Actual Weight : 57kg(Converted to: 125lb 11oz) Dosing Weight Clinic : 57.00kg Clinic BSA : 1.59 Body Mass Index : 22.27kg/m2 ELENO MORALES LPN - 04/08/2012 15:23 DRAW FRAME TENDER Subjective Pain Symptoms : No ELENO MORALES LPN - 04/08/2012 15:23 DRAW FRAME TENDER Dependent Habits Tobacco Use/Currently Using : No Smoking Status : Former smoker ELENO MORALES LPN - 04/08/2012 15:23 DRAW FRAME TENDER Tobacco Use Grid Last Use : quit 1969 ELENO MORALES LPN - 04/08/2012 15:23 DRAW FRAME TENDER Allergy Allergies (Active) sulfa drugs Estimated Onset Date: Unspecified ; Created By: ELENO MORALES LPN; Reaction Status: Active ; Category: Drug ; Substance: sulfa drugs ; Type: Allergy ; Updated By: ELENO MORALES LPN; Reviewed Date: 04/08/2012 15:22 DRAW FRAME TENDER Source: [employer] Document Id: [id number] Miscellaneous - Conversion, Historical Provider Ser - 04/08/2012 3:23 PM DRAW FRAME TENDER Health Assessment Health Assessment Entered On: 04/08/2012 15:29 DRAW FRAME TENDER Performed On: 04/08/2012 15:23 DRAW FRAME TENDER by ELENO MORALES LPN Health Assessment Complete Health Assessment Complete or Modified : Annual Health Assessment Annual Health Assessment Completed : Yes ELENO MORALES LPN - 04/08/2012 15:23 DRAW FRAME TENDER Nutrition Nutrition Risk Factors by History Adult : None ELENO MORALES LPN - 04/08/2012 15:23 DRAW FRAME TENDER Functional Current Daily Living Assistance : None ELENO MORALES LPN - 04/08/2012 15:23 DRAW FRAME TENDER Dependent Habits Tobacco Use/Currently Using : No Smoking Status : Former smoker ELENO MORALES LPN - 04/08/2012 15:23 DRAW FRAME TENDER Psychosocial Domestic Abuse Concerns : None ELENO MORALES LPN - 04/08/2012 15:23 DRAW FRAME TENDER Advance Directive Advanced Directives : No ELENO MORALES LPN - 04/08/2012 15:23 DRAW FRAME TENDER Educ Needs Learning Style Preference Adult Grid Patient : Printed materials Family : Printed materials ELENO MORALES LPN - 04/08/2012 15:23 DRAW FRAME TENDER Source: [employer] Document Id: [id number] documented in this encounter Plan of Treatment Not on filedocumented as of this encounter Procedures Procedure Name Priority Date/Time Associated Diagnosis Comme nts THINPREP SCREEN HPV Routine 04/08/2012 4:38 PM Re sults for this REFLEX DRAW FRAME TENDER procedure are i n the results section. documented in this encounter Results Pathology ThinPrep Screen HPV Reflex (04/08/2012 4:38 PM DRAW FRAME TENDER) [facility] Method Time Signature Interpretation [id number] POWERCHART HXThPrep Scrn See Comment POWERCHART [facility] Comment: A. ??ThinPrep Pap Test Screen (Cervical/ Endocervical HPV Reflex): Satisfactory for evaluation. Negative for intraepithelial lesion or m alignancy. Atrophic pattern. [facility]ThPrep Scrn [facility] See Comment SHIV RCHART Comment: Report electronically signed by RHONA Oliveira(ASCP) 04/14/2012 14:11 Interpreted by: RHONA Andrea(ASCP) Spec [facility] See Comment POWERCHART Comment: A. ??ThinPrep Pap Test Screen (Cervical/ Endocervical HPV Reflex): Received cloudy specimen in ThinPrep via l. Test Performed by: [place] [address] Pathology Technologist: Varinder tucker III, M.D. Specimen (Source) Anatomical Collection Method Collection Time Re ceived Time Location / / Volume Laterality Cervix/Endocervix 04/08/2012 4:38 PM DRAW FRAME TENDER Luisa Roy M.D. LAB PAP PATHDX ORDERAB LES Performing Organization Address City/State/ZIP Code Phon e Number POWERCHART documented in this encounter Visit Diagnoses Not on filedocumented in this encounter
--- OUTSIDE RECORDS SUMMARY | 2022-02-13 09:21 | XMS_ITS | Encounter Summary ---
:[address] [facility] Address [address] [place] [address] Care Team Providers Name Role Phone Unavailable Primary Care Provider Unavailable Encounter Details Date Type Department Care Team Description 04/06/2012 Hospital Encounter HX [facility] Nikkie Medel, GAMING CASHIER, C.N.P. [address] [place], [place] [phone] (Wo rk) Social History [...] Diagnosis Comme nts BI BREAST SCREENING Routine 04/06/2012 11:32 AM R esults for this BILATERAL GOLF COURSE KEEPER procedure are i n the results section. documented in this encounter Results BI Breast Screening Bilateral (04/06/2012 11:32 AM GOLF COURSE KEEPER) Anatomical Region Laterality Modality Breast Bilateral Mammography Specimen (Source) Anatomical Collection Method Collection Time Re ceived Time Location / / Volume Laterality 04/06/2012 11:32 AM GOLF COURSE KEEPER Addenda Addendum by ProviderOneil M.D. o n 04/06/2012 11:32 AM GOLF COURSE KEEPER RAD^^^OW MA Mammo Screening w ??CADD 04/06/2012 11:32:00 Addendum by Provider, Jacquelyn Riggs 04/06/2012 11:32 AM GOLF COURSE KEEPER RAD^^^MA MA MAMMO SCREENING W CADD 04/06/2012 11:32:00 Impressions 04/06/2012 4:23 PM GOLF COURSE KEEPER Stable negative mammogram, BIRADS 1. Yearly mammograms are recommended. MAMMOGRAPHY - GENERAL OBSERVATIONS: The reported false negative rate for mammography is 15-20%. It cannot be used, therefore, to replace the regular physical examination. A norm al or noncontributory mammogram report also should not deter t he aggressive further workup of any suspected palpable masses. Narrative 04/06/2012 4:23 PM GOLF COURSE KEEPER HISTORY: Screening mammogram. Technique: Bilateral full-field digital mammograms were obtained in the CC and MLO projections. COMPARISON: 07/16/2010 and prior. FINDINGS: There has been no significant interval change. The breast parenchymal pattern is heterogeneously d ense for age 67 which mildly decreases mammographic sensitivity while increasing the importance of physical exams. There is no definite verena dence of a new dominant spiculated mass, concerning (not vascula r) clustered pleomorphic microcalcifications, or de seun (nonsurg ical) architectural distortion. No new skin thickening, lymp hadenopathy, or nipple retraction. No other definite concerning mammographic findings. CAD was utilized. Procedure Note Arron Esteban M.D. / Provider, Tj dinero M.D. - 09/09/2016 HISTORY: Screening mammogram. Technique: Bilateral full-field digital mammograms were obtained in the CC and MLO projections. COMPARISON: 07/16/2010 and prior. FINDINGS: There has been no significant interval change. The breast parenchymal pattern is heterogeneously d ense for age 67 which mildly decreases mammographic sensitivity while increasing the importance of physical exams. There is no definite verena dence of a new dominant spiculated mass, concerning (not vascula r) clustered pleomorphic microcalcifications, or de seun (nonsurg ical) architectural distortion. No new skin thickening, lymp hadenopathy, or nipple retraction. No other definite concerning mammographic findings. CAD was utilized. IMPRESSION: Stable negative [...]
--- OUTSIDE RECORDS SUMMARY | 2022-02-13 09:21 | XMS_ITS | Encounter Summary ---
:1945 Author Organization [facility] Address [address] [place] [address] Care Team Providers Name Role Phone Unavailable Primary Care Provider Unavailable Encounter Details Date Type Department Care Team Description 12/19/2008 Hospital Encounter HX [facility] Scot Le M.D. [address] [place], [place] [address] (Wo rk) Social History Tobacco Use Types [...]
--- OUTSIDE RECORDS SUMMARY | 2022-02-13 09:21 | XMS_ITS | Encounter Summary ---
:1945 Author Organization [facility] Address [address] [place] [address] Care Team Providers Name Role Phone Unavailable Primary Care Provider Unavailable Encounter Details Date Type Department Care Team Description 07/18/2008 Hospital Encounter HX NO MAPPING Luisa Roy M.D. [address] [place], [place] [phone] (Wo rk) Social History [...] Priority Date/Time Associated Diagnosis Comme nts DX CHEST AP OR PA Routine 07/18/2008 3:05 PM Resu lts for this AND LATERAL 2 VIEWS CDT procedur e are in the results section. documented in this encounter Results DX Chest AP or PA and Lateral 2 Views (07/18/2008 3:05 PM CDT) Anatomical Region Laterality Modality Chest N/A Radiographic Imaging Specimen (Source) Anatomical Collection Method Collection Time Re ceived Time Location / / Volume Laterality 07/18/2008 3:05 PM CDT Narrative 07/18/2008 3:05 PM CDT Originally Signed By UNKNOWN, PERSONNEL Reason for exam: WHEEZING Comparison: 02/22/2007 ?? Findings: ?? Lung lacy are clear. ??Heart and media stinal structures are normal. ?? Bony thorax and soft tissues appear inta ct. ??Normal pulmonary vasculature. ? Impression: No active disease. Procedure Note ProviderOneil M.D. - 09/22/2016F ormatting of this note might be different from the original. Originally Signed By UNKNOWN, PERSONNEL Reason for exam: WHEEZING Comparison: 02/22/2007 Findings: Lung lacy are clear. Heart and mediast inal structures are normal. Bony thorax and soft tissues appear inta ct. Normal pulmonary vasculature. Impression: No active disease. Historical Provider IMG DIAGNOSTIC IMAGING PROCE CARIE documented in this encounter Visit Diagnoses Not on filedocumented in this encounter
--- OUTSIDE RECORDS SUMMARY | 2022-02-13 09:21 | XMS_ITS | Encounter Summary ---
:1945 Author Organization [facility] Address [address] [place] [address] Care Team Providers Name Role Phone Unavailable Primary Care Provider Unavailable Encounter Details Date Type Department Care Team Description 04/06/2012 Hospital Encounter HX [facility] MyrJulieta carrillo, PLANT OPERATIONS MANAGER, C.N.P. [address] [place] [address] (Wo rk) Social History Tobacco [...] Sign Reading Time Taken Comments Blood Pressure 108/74 04/06/2012 11:00 AM GEOTHERMAL INSTALLER Pulse 76 04/06/2012 11:00 AM GEOTHERMAL INSTALLER Temperature - - Respiratory Rate 16 04/06/2012 11:00 AM GEOTHERMAL INSTALLER Oxygen Saturation - - Inhaled Oxygen Concentration - - Weight 58 kg (127 lb 13.9 oz) 04/06/2012 11:00 AM GEOTHERMAL INSTALLER Height 161.5 cm (5' 3.58) 04/06/2012 11:00 AM GEOTHERMAL INSTALLER Body Mass Index 22.24 04/06/2012 11:00 AM GEOTHERMAL INSTALLER documented in this encounter Medications at Time of Discharge Medication Sig Dispensed Refills Start Date End Date calcium carbonate-vitamin Chew 1 tablet. 0 2009 D3 1,250 mg (500 mg calcium)-400 unit per chewable tablet multivitamin tablet Take 1 tablet by 0 06/28/2009 mouth. documented as of this encounter Progress Notes Emi Garcia, ORION, C.N.P. - 04/06/2012 10:51 AM CST [id number] CHIEF COMPLAINT/REASON FOR VISIT 1. Establish care 2. Sinus congestion 3. Cough and chest congestion 4. Migraine headaches HISTORY OF PRESENT ILLNESS 1. This is Isadora's first visit back at [facility] in [place]. In the past 3 years she has been seen at [facility]. 2. She states she has had sinus congestion with postnasal drip and pressure in her right ear for the past 2 weeks. Now for the past couple of days she has had more chest congestion and is coughing up mucus. She states she had a low grade fever yesterday. 3. Migraine headaches. She states she does well with Imitrex 25 mg and needs refill. CURRENT MEDICATIONS See depart summary from today. ALLERGIES Sulfa. SYSTEMS REVIEW Positive for that mentioned in history present illness and noted in the past medical history in the EMR all other systems reviewed and were negative PAST MEDICAL/SURGICAL HISTORY Migraine headaches. PAST SURGICAL HISTORY: Laparoscopic cholecystectomy in 2006 PREVENTIVE: She was given a flu shot today. She is due for mammogram orders are in for her to schedule. She has physical exam with Pap smear scheduled with Dr. Gauthier in 2 days. She is also due forPneumovax and Zostavax. VITAL SIGNS See EMR PHYSICAL EXAMINATION GENERAL: Well developed well nourished female in no acute distress. SKIN: Warm and dry. ENT: Right TM is dull with serous fluid. Left TM is clear. Nares congested with yellow mucus. Tenderness over maxillary sinus. Throat clear. Mild anterior cervical lymphadenopathy. HEART: Regular rate and rhythm LUNGS: Clear to auscultation. No wheezes or rales. ABDOMEN: Soft, nontender, hepatosplenomegaly. EXTREMITIES: Warm, dry, no peripheral edema. IMPRESSION/REPORT/PLAN 1. Establish care. She will have records transferred from [facility] 2. Acute sinusitis. Amoxicillin 875 mg 1 2 times a day for 10 days. Encourage fluids, Tylenol for fever discomfort. 3. Acute bronchitis. Continue albuterol HFA 2 puffs every 4 hours as needed for cough and wheeze 4. Migraine headaches. Refill on Imitrex 25 mg 1 as needed. She will schedule for mammogram before her appointment with Dr. Gauthier on 04/08/2012 Emi Garcia CNP/anna marie Electronically Signed By: EMI GARCIA CNP On: 04/07/2012 11:04 AM Source: [facility] MHSDOLBEYNONRADSYS Document Id: [id number] HERMAL INSTALLER documented in this encounter Miscellaneous Notes Miscellaneous - Emi Garcia APRN, C.N.P. - 04/06/2012 11:17 AM GEOTHERMAL INSTALLER Ambulatory Patient Summary [address] [address] Visit Information Name: ISADORA BACK [facility] Number: [id number] Current Date: 04/06/2012 11:17:55 Physicians Attending Provider: EMI GARCIA CNP Primary Care Provider: LUISA GAUTHIER MD Your [...] Upcoming Appointments Date Time Location Reason Provider 04/08/2012 15:00 [facility] FamilyPra annual Luisa Gauthier MD Your Goals/Additional instructions: Source: [facility] POWERCHART Document Id: [id number] HERMAL INSTALLER Miscellaneous - Emi Garcia APRN, C.N.P. - 04/06/2012 11:17 AM GEOTHERMAL INSTALLER Ambulatory Depart Summary [address] [address] Visit Information Name: ISADORA BACK [facility] Number: [id number] Visit Date: 04/06/2012 11:17:55 Attending Provider: EMI GARCIA CNP Primary Care [...] your provider for clarification. Additional Information: Source: [facility] TwyxtCHART Document Id: [id number] HERMAL INSTALLER Miscellaneous - Clarice White L.P.N. - 04/06/2012 11:02 AM CST Health Assessment Health Assessment Entered On: 04/06/2012 11:02 GEOTHERMAL INSTALLER Performed On: 04/06/2012 11:02 GEOTHERMAL INSTALLER by CLARICE WHITE Health Assessment Complete Health Assessment Complete or Modified : Annual Health Assessment Annual Health Assessment Completed : Yes CLARICE WHITE - 04/06/2012 11:02 GEOTHERMAL INSTALLER Nutrition Nutrition Risk Factors by History Adult : None CLARICE WHITE - 04/06/2012 11:02 GEOTHERMAL INSTALLER Functional Current Daily Living Assistance : None CLARICE WHITE - 04/06/2012 11:02 GEOTHERMAL INSTALLER Dependent Habits Tobacco Use/Currently Using : No Smoking Status : Never smoker CLARICE WHITE - 04/06/2012 11:02 GEOTHERMAL INSTALLER Psychosocial Domestic Abuse Concerns : None CLARICE WHITE - 04/06/2012 11:02 GEOTHERMAL INSTALLER Advance Directive Advanced Directives : No CLARICE WHITE - 04/06/2012 11:02 GEOTHERMAL INSTALLER Educ Needs Learning Style Preference Adult Grid Patient : Verbal explanation Family : Verbal explanation CLARICE WHITE - 04/06/2012 11:02 GEOTHERMAL INSTALLER Source: [facility] TwyxtCHART Document Id: [id number] HERMAL INSTALLER Miscellaneous - Clarice White LEldaPEldaN. - 04/06/2012 11:00 AM CST Adult Cleat Layer Intake/History Adult Cleat Layer Intake/History Entered On: 04/06/2012 11:02 GEOTHERMAL INSTALLER Performed On: 04/06/2012 11:00 GEOTHERMAL INSTALLER by CLARICE WHITE Intake Chief Complaint : coughing Temperature Core : 37.2C(Converted to: 99.0DegF) Peripheral Pulse Rate : 76/min Respiratory Rate : 16/min Systolic Blood Pressure : 108mmHg Diastolic Blood Pressure : 74mmHg NIBP Mean : 85mmHg Height : 161.5cm(Converted to: 5ft 4inch(es), 63.58inch(es)) Actual Weight : 58.0kg(Converted to: 127lb 14oz) Dosing Weight Clinic : 58.00kg Clinic BSA : 1.61 Body Mass Index : 22.24kg/m2 CLARICE WHITE - 04/06/2012 11:00 GEOTHERMAL INSTALLER Subjective Pain Symptoms : No CLARICE WHITE - 04/06/2012 11:00 GEOTHERMAL INSTALLER Dependent Habits Tobacco Use/Currently Using : No Smoking Status : Never smoker CLARICE WHITE - 04/06/2012 11:00 GEOTHERMAL INSTALLER Allergy Allergies (Active) sulfa drugs Estimated Onset Date: Unspecified ; Created By: ELENO MORALES LPN; Reaction Status: Active ; Category: Drug ; Substance: sulfa drugs ; Type: Allergy ; Updated By: ELENO MORALES LPN; Reviewed Date: 03/30/2012 8:35 GEOTHERMAL INSTALLER Source: [facility] POWERCHART Document Id: [id number] HERMAL INSTALLER documented in this encounter Plan of Treatment Not on filedocumented as of this encounter Visit Diagnoses Not on filedocumented in this encounter
--- OUTSIDE RECORDS SUMMARY | 2022-02-13 09:21 | XMS_ITS | Encounter Summary ---
:1945 Author Organization [facility] Address [address] [place] [address] Care Team Providers Name Role Phone Unavailable Primary Care Provider Unavailable Encounter Details Date Type Department Care Team Description 01/15/2009 Hospital Encounter HX [facility] Scot Le M.D. [address] [place], [place] [address] (Wo rk) Social History [...]
--- OUTSIDE RECORDS SUMMARY | 2022-02-13 09:22 | XMS_ITS | Clinical Summary ---
:1945 Author Organization [facility] [place] [address] Care Team Providers Name Role Phone Tirge Preciado Primary Care Provider Allergies Active Allergy Reactions Severity Noted Date Comments Amoxicillin-Pot Vomiting 11/07/2020 Clavulanate Cefuroxime Axetil GI Upset Medium 06/02/2017 Ciprofloxacin Myalgia, Other - 08/05/2012 Other reac tion(s): Describe In Comment Myalgia Field Fluconazole Other - Describe In High 01/20/[address], Comment Field throat closing diflucan Latex Rash 03/24/2015 Lidocaine-Epinephrine Palpitations 11/07/2014 Metronidazole Myalgia 08/05/2012 Sulfa (Sulfonamide Nausea Only 02/28/2013 Antibiotics) Azithromycin Nausea Only, Headache 02/04/2009 Mood c hanges Medications Medication Sig Dispensed Refills Start Date End Date Status Calcium-Cholecalcifero Take 1 tablet by 0 11/07/2009 Active l, D3, (CALCIUM 500+D) mouth once daily. 500 mg(1,250mg) -400 unit chewable tabletIndications: Loose stools SUMAtriptan (IMITREX) TAKE ONE TABLET BY 9 tablet 5 2 Active 25 mg MOUTH EVERY 2 tabletIndications: HOURS NEEDED Headache(784.0) FOR MIGRAINE. MAX DOSE: 200MG PER 24 HOURS. vit A,C and Take 1 Tab by 0 Acti ve Q-zybkwy-fneqkbdb mouth once daily. (OCUVITE WITH LUTEIN) 1,000 unit-200 mg-60 unit-2 mg tab Magnesium 200 mg tab Take 400 mg by 0 Active mouth once daily. cyanocobalamin Take 100 mcg by 0 Active (VITAMIN B12) 100 mcg mouth once daily. tablet nystatin (MYCOSTATIN) Take 500,000 units 0 0 Active 100,000 unit/mL by mouth. suspension MULTIVITAMIN ORAL Take 1 tablet by 0 Active mouth once daily. With elderberry vit A/vit Take 1 tablet by 0 Act angelique C/bioflav/Zn/Herb25 mouth once daily. (ECHINACEA ACZ ORAL) ondansetron (ZOFRAN) 4 Take 1 tablet by 2 tablet 0 03/12/2020 Active mg tabletIndications: mouth every 8 History of colonic hours if needed polyps for Nausea/Vomiting. Take one tablet prior to each half of the Golytely codeine-guaiFENesin Take 10 mL by 118 mL 0 02/07/2021 Active (ROBITUSSIN AC) 10-100 mouth at bedtime mg/5 mL if needed for liquidIndications: Cough. Max dose 60 Cough, Acute mL per 24 hrs. bronchiolitis due to unspecified organism Active Problems Problem Noted Date Angular cheilitis 12/01/2019 Overview: Formatting of this note might be differe nt from the original. Prescription for miconazole 2% ointment was faxed to her pharmacy and she will apply 2 times daily for up to 30 days. If symptoms do not improve I recommend she follow up with her primary care provider or contact me. At this point she has no additional concerns or questions and is agreeable to this plan of care. Female bladder prolapse 12/01/2019 Overview: Formatting of this note might be differe nt from the original. Grade 2-3 cystocele present. Prefers to manage with referral to [facility] and accupuncture at this time. Last Assessment & Plan: Formatting of this note might be differe nt from the original. Referral to [facility] was completed in f axed. She will continue to work with her current director of vendor management. We also discussed management options with vaginal estrogen therapy, pessary, or surgical intervent ion. She is not interested in these opti ons at this time. I recommend she follow up as needed in the future. Osteoporosis 07/20/2017 Personal history of colonic polyps 11/10/2012 Reactive airway disease 07/12/2009 Headache(784.0) 01/09/2009 Immunizations Name Administration Dates Next Due COVID-19 vaccine (Prizzm 30mcg/0.3mL) PF, MDV Influenza, IIV3 (Age >=3 years) 01/21/2009 Influenza, IIV4 02/03/2021, 02/19/2020 Tdap 01/23/2003 Family History Medical History Relation Name Comments Cancer Brother 2 throat/smoker Cancer Father neck/smoker Cancer-breast Mother Diabetes Mother Relation Name Status Comments Brother 1 Brother 2 Daughter Alive 3 Father Maternal Grandfather Maternal Grandmother Mother Alive Paternal Grandfather Paternal Grandmother Sister Alive Social History Tobacco Use Types Packs/Day Years Used Date Former Smoker Quit: 1967 Smokeless Tobacco: Never Used Tobacco Cessation: Counseling Given: No Alcohol Use Standard Drinks/Week Comments Yes 0 (1 standard drink = 0.6 oz pure alcoho l) 5 glasses of wine/week Alcohol Habits Answer Date Recorded How often do you have a drink containing Not asked alcohol? How many drinks containing alcohol do you have Not asked on a typical day when you are drinking? How often do you have six or more drinks on one Not asked occasion? Comment: 5 glasses of wine/week 02/29/2020 Sex Assigned at Date Recorded Not on file Obstetrics History Para Term AB IAB SAB Ectopic Multiple Living Live Births 3 3 3 3 Date Outcome GA Total Labor/2nd/3rd Weight Sex Delivery Anes PTL Sarah Beth A 1 A5 Name Clin Labor Term Term Term Last Filed Vital Signs Vital Sign Reading Time Taken Comments Blood Pressure 110/64 02/07/2021 5:40 PM CDT Pulse 94 02/07/2021 5:40 PM CDT Temperature 36.6 ??C (97.8 ??F) 02/07/2021 5:40 PM CDT Respiratory Rate 16 02/07/2021 5:40 PM CDT Oxygen Saturation 98% 02/07/2021 5:40 PM CDT Inhaled Oxygen Concentration - - Weight 57.2 kg (126 lb) 02/07/2021 5:40 PM CDT Height 159 cm (5' 2.6) 02/29/2020 12:48 PM TRAINING INTERN Body Mass Index 22.61 02/29/2020 12:48 PM TRAINING INTERN Plan of Treatment Health Maintenance Due Date Last Done Comments BMI (ht and wt on same day) for 1963 age 18+ Hepatitis C screening for age 1203/22/1965 18-79 Zoster (shingles) series for age 1203/22/1997 50+ (1 of 2) Mammogram for age 45-75 07/17/2011 07/16/2010, 05/22/2009 DEXA/DXA scan for age 65+ 2012 Medicare Wellness for age 65+ 2012 Pneumococcal series for age 65+ (1 2012 - PCV) Tetanus booster 01/23/2013 01/23/2003 Lipids for age 45-75 06/05/2015 06/05/2010, 05/22/2009 Depression screening for age 12+ 11/22/2018 11/22/2017 COVID-19 vaccine series (4 - 04/21/2021 02/24/2021, 021, Booster for Moderna series) 06/06/2020 Influenza for age 65+ 12/18/2021 02/03/2021, 02/19/2020, 01/21/2009 Colonoscopy through age 75 03/13/2030 03/13/2020, 3, 11/10/2012, Additional history exists Tdap Completed 01/23/2003 Results Not on filefrom Last 3 Months Insurance Payer Benefit Plan / Subscriber ID Effective Dates Phone Addre ss Type Group MEDICARE PART B MEDICARE PART B [id number] 2012-Presen ATTN: CLAIMS - HB USE ONLY HB ONLY t [address] [place] [address] [facility] [id number] 2014-Present [address] [place] [address] [place] UCARE MEDICARE [id number] 2019-Present [address] [place] [address] Isadora Back Personal/Family Self 1945 [address] (Home) [place] [id number] Advance Directives Latest Code Status on File Code Status Date Activated Date Inactivated Comments Full Code 03/13/2020 7:36 AM 03/13/2020 1:19 PM Code Status Discussion: Not Discussed Care Teams Asw/Asuw Tactical Air Controller Relationship Specialty Start Date End Date Tigre Preciado PA PCP - General Physician Supervisor [employer] 01/15/20
== END 2022-02-13 09:04 | disposition home or self-care (01) ==
PROVIDERS: PCP Nurse Practitioner Family; Visit Provider Nurse Practitioner Family
DX: N39.0 Urinary tract infection, site not specified (principal)
CPT/HCPCS: 87086; 87186

== ENCOUNTER 2022-04-01 13:44 | Outpatient (CLI) | payer MEDICARE, SELFPAY ==
--- OUTSIDE RECORDS SUMMARY | 2022-04-01 13:47 | XMS_ITS | Encounter Summary ---
:1945 Author Organization [facility] Address [address] [place] [address] Care Team Providers Name Role Phone Tigre Preciado P.A.-C. Primary Care Provider [phone] Encounter Details Date Type Department Care Team Description 01/28/2021 Hospital Encounter Department of Laboratory Wood Posadas, Medicine, [facility], in [place], [address] [place], [place] [address] [facility] [address] [place] [address] [phone] Social History Tobacco Use Types Packs/Day Years [...] mouth. vitamin Take 1 tablet by 0 A,C,D-zhbcqq-zntcjzjh mouth daily. (OCUVITE W/LUTEIN) 1,000 Unit-200 mg-60 [...] Depression Total Score: 1 06/02/2017 9:34 AM BAKERY SALES CLERK documented as of this encounter Care Teams Roll Scale Worker Relationship Specialty Start Date End Date Tigre Preciado P.A.-C. PCP - General Family Medicine 10/11/[address] [place] [phone] documented as of this encounter
--- OUTSIDE RECORDS SUMMARY | 2022-04-01 13:47 | XMS_ITS | Encounter Summary ---
:1945 Author Organization [facility] Address [address] [place] [address] Care Team Providers Name Role Phone Tigre Preciado P.A.-C. Primary Care Provider [phone] Reason for Visit Reason Comments Mouth Lesions Appointment Request (Routine) - Closed Specialty Diagnoses / Procedures Referred By Contact Refer red To Contact Family Medicine Referral ID Status Reason Start Date Expiration Date Visits Requ ested Visits Authorized [id number] Closed 06/30/2021 06/30/2022 1 1 Encounter Details Date Type Department Care Team Description 07/02/2021 Office Visit Department of Family Tigre Preciado Ca ndidiasis Oral (Primary Dx); Medicine, [facility] ([facility]) Clinic, in [address] [address] [place], [place] [phone] [address] (Work) [phone] Social History Tobacco Use Types Packs/Day Years [...] Depression Total Score: 1 06/02/2017 9:34 AM TEST RACK OPERATOR documented as of this encounter Care Teams Regulator Mechanic Relationship Specialty Start Date End Date Tigre Preciado P.A.-C. PCP - General Family Medicine 10/11/[address] [place] [phone] documented as of this encounter
--- OUTSIDE RECORDS SUMMARY | 2022-04-01 13:47 | XMS_ITS | Encounter Summary ---
:1945 Author Organization [facility] Address [address] [place] [address] Care Team Providers Name Role Phone Tigre Preciado P.A.-C. Primary Care Provider [phone] Reason for Visit Reason Comments URI Encounter Details Date Type Department Care Team Description 02/07/2021 [facility] [address] [place] [address] [address] [place] [address] Social History Tobacco Use Types Packs/Day [...] 24 hours. Patient was warm transferred to [place] at the clinic for further assistance. Reason for Disposition ??? [1] Known COPD or other severe lung disease (i.e., bronchiectasis, cystic fibrosis, lung surgery) AND [2] worsening symptoms (i.e., increased sputum purulence or amount, increased breathing difficulty Protocols used: COUGH - ACUTE [id number] Care Advice Patient/Caregiver understands and will follow [...] Screening ASSESSMENT Region Select appropriate region: : [place] Age Pathway Select approprite pathway: : Adult [...] care: Yes The following references were used: [facility] novel coronavirus (COVID- 19) resources documented in this encounter Plan of Treatment Not on filedocumented as of this encounter Visit Diagnoses Not on filedocumented in this encounter Additional Health Concerns Assessment Noted Time PHQ-9 Depression Total Score: 1 06/02/2017 9:34 AM SAFETY REPRESENTATIVE documented as of this encounter Care Teams Thermocouple Tester Relationship Specialty Start Date End Date Tigre Preciado P.A.-C. PCP - General Family Medicine 10/11/19 [address] [place] [address] documented as of this encounter
--- OUTSIDE RECORDS SUMMARY | 2022-04-01 13:47 | XMS_ITS | Encounter Summary ---
:1945 Author Organization [facility] Address [address] [place] [address] Care Team Providers Name Role Phone Tigre Preciado P.A.-C. Primary Care Provider [phone] Reason for Visit Reason Comments Other Swelling [...] Expiration Date Visits Requ ested Visits Authorized [id number] Closed 06/26/2021 06/26/2022 1 1 Encounter Details Date Type Department Care Team Description 06/26/2021 Office Visit Department of Family Ubaldo, Colt M, Dry Mouth Unspecified Medicine, Jeff Valladares (Primary Dx) Clinic, in [address] [address] [place], [place] [phone] (Work) [phone] Social History Tobacco Use Types Packs/Day Years [...] Comments Blood Pressure 157/84 06/26/2021 1:18 PM PAVING MACHINE OPERATOR Pulse 91 06/26/2021 1:18 PM PAVING MACHINE OPERATOR Temperature 36.6 ??C (97.9 ??F) 06/26/2021 1:08 PM PAVING MACHINE OPERATOR Respiratory Rate 20 06/26/2021 1:08 PM PAVING MACHINE OPERATOR Oxygen Saturation - - Inhaled Oxygen Concentration - - Weight 58 kg (127 lb 12.1 oz) 06/26/2021 1:08 PM PAVING MACHINE OPERATOR Height - - Body Mass Index 22.36 [...] Disp: 9 tablet, Rfl: 5 ??? vitamin A,C,D-udsuaw-iyltcbmj (OCUVITE W/LUTEIN) 1,000 Unit-200 mg-60 Unit-2 mg [...] Smoking status: Former Smoker Quit date: 1967 Years since quittin.2 ??? Smokeless tobacco: Never [...] have symptoms she will let us know. NG MACHINE OPERATOR documented in this encounter Plan of Treatment Not on filedocumented as of this encounter Visit Diagnoses Diagnosis Dry Mouth Unspecified - Primary documented in this encounter Additional Health Concerns Assessment Noted Time PHQ-9 Depression Total Score: 1 06/02/2017 9:34 AM PAVING MACHINE OPERATOR documented as of this encounter Care Teams Operational Communication Chief Relationship Specialty Start Date End Date Tigre Preciado P.A.-C. PCP - General Family Medicine 10/11/[address] [place] [phone] documented as of this encounter
--- OUTSIDE RECORDS SUMMARY | 2022-04-01 13:47 | XMS_ITS | Encounter Summary ---
:1945 Author Organization [facility] Address [address] [place] [address] Care Team Providers Name Role Phone Tigre Preciado P.A.-C. Primary Care Provider [phone] Encounter Details Date Type Department Care Team Description 02/11/2021 Orders Only [facility] P[facility] Sa juani iRvera M.D. [address] [place], [place] [phone] (Wo rk) Social History [...] Depression Total Score: 1 06/02/2017 9:34 AM HEALTH PROMOTION SPECIALIST documented as of this encounter Care Teams Looping Inspector Relationship Specialty Start Date End Date Tigre Preciado P.A.-C. PCP - General Family Medicine 10/11/[address] [place] [phone] documented as of this encounter
--- OUTSIDE RECORDS SUMMARY | 2022-04-01 13:47 | XMS_ITS | Encounter Summary ---
:1945 Author Organization [facility] Address [address] [place] [address] Care Team Providers Name Role Phone Tigre Preciado P.A.-C. Primary Care Provider [phone] Reason for Referral Outpatient (Routine) - Closed Specialty Diagnoses / Procedures Referred By Contact Refer red To Contact Diagnoses Screening Mammogram Breast Cancer Tigre Preciado P.A.-C. [facility] Procedures BI Breast Screening Bilateral with Tomosynthesis [address] [place] [address] Referral ID Status Reason Start Date Expiration Date Visits Requ ested Visits Authorized [id number] Closed 12/03/2020 12/03/2021 1 1 Encounter Details Date Type Department Care Team Description 12/03/2020 Orders Only [facility] PCP [facility] MNT Tigre Preciado, Screening Mammogram P.Manuel Breast Cancer [address] [place] [phone] Social History Tobacco Use Types Packs/Day Years [...] Breast Imaging [facility], Breast Imaging [facility], [facility] Bilateral Mammography Imaging [facility] Specimen (Source) Anatomical Collection Method [...] Depression Total Score: 1 06/02/2017 9:34 AM TESTING SPECIALIST documented as of this encounter Care Teams Core Placer Relationship Specialty Start Date End Date Tirge Preciado P.A.-C. PCP - General Family Medicine 10/11/19 [address] [place] [phone] documented as of this encounter
--- OUTSIDE RECORDS SUMMARY | 2022-04-01 13:47 | XMS_ITS | Encounter Summary ---
:1945 Author Organization [facility] Address [address] [place] [address] Care Team Providers Name Role Phone Tigre Preciado P.A.-C. Primary Care Provider [phone] Reason for Referral Specialty Diagnoses / Procedures Referred By Contact Refer red To Contact Tigre Preciado P. A.-C. [facility] Region [address] [place] [address] Referral ID Status Reason Start Date Expiration Date Visits Requ ested Visits Authorized Encounter Details Date Type Department Care Team Description 09/02/2021 Orders Only [facility] Tigre Preciado P.A.-C. [address] [place] [address] (Wo rk) Social History [...] Depression Total Score: 1 06/02/2017 9:34 AM SENIOR ANALYST DEVELOPER documented as of this encounter Care Teams Radiopharmacist Relationship Specialty Start Date End Date Tigre Preciado P.A.-C. PCP - General Family Medicine 10/11/19 [address] [place] [address] documented as of this encounter
--- OUTSIDE RECORDS SUMMARY | 2022-04-01 13:47 | XMS_ITS | Encounter Summary ---
:1945 Author Organization [facility] Address [address] [place] [address] Care Team Providers Name Role Phone Tigre Preciado P.A.-C. Primary Care Provider [phone] Encounter Details Date Type Department Care Team Description 02/24/2021 Hospital Encounter Department of Laboratory Wood Posadas, Medicine, [facility], in [place], [address] [place], [place] 10[address] [facility] [address] [place] [address] [phone] Social History Tobacco Use Types Packs/Day Years [...] mouth. vitamin Take 1 tablet by 0 A,C,Z-loiuee-rnguzjda mouth daily. (OCUVITE W/LUTEIN) 1,000 Unit-200 mg-60 [...] COVID19 Pending 02/23/2021 02/24/2021 02/25/2021 3:12 PM COMPUTER SUPPORT TECHNICIAN Assessment Noted Time PHQ-9 Depression Total Score: 1 06/02/2017 9:34 AM COMPUTER SUPPORT TECHNICIAN documented as of this encounter Care Teams Codifier Relationship Specialty Start Date End Date Tigre Preciado P.A.-C. PCP - General Family Medicine 10/11/19 [address] [place] [address] documented as of this encounter
--- OUTSIDE RECORDS SUMMARY | 2022-04-01 13:47 | XMS_ITS | Encounter Summary ---
:1945 Author Organization [facility] Address [address] [place] [address] Care Team Providers Name Role Phone Tigre Preciado P.A.-C. Primary Care Provider [phone] Reason for Visit Reason Comments Headache Nasal Congestion Facial Pain Encounter Details Date Type Department Care Team Description 11/06/2020 Nurse Triage Department of [facility] Tigre Preciado He adache; Nasal Medicine, Jeff Edmondson Congestion; Facial Clinic, in [address] 300 [facility] [address] [place], [place] [phone] [address] (Work) [phone] Social History Tobacco Use Types Packs/Day Years [...] Miscellaneous Notes Telephone Encounter - Ashli Rosales R.N. - 11/06/2020 9:15 AM CDT CARE POINTS REVIEWED - Drink plenty of fluids. - Apply warm wet compresses to sinus area. - Get adequate rest. - Use cool-mist humidifier in room or home. - Avoid smoke and do not smoke. - Continue the medications normally taken for pain/discomfort, as directed, including bdki-zxt-vwngjtq cold remedies. - Consider use of Flonase [...] Depression Total Score: 1 06/02/2017 9:34 AM CORRECTIONAL SUPERVISOR LIEUTENANT documented as of this encounter Care Teams Hcc Coders Relationship Specialty Start Date End Date Tigre Preciado P.A.-C. PCP - General Family Medicine 10/11/[address] [place] [phone] documented as of this encounter
--- OUTSIDE RECORDS SUMMARY | 2022-04-01 13:47 | XMS_ITS | Encounter Summary ---
:1945 Author Organization [facility] Address [address] [place] [address] Care Team Providers Name Role Phone Tigre Preciado P.A.-C. Primary Care Provider [phone] Reason for Visit Reason Comments Med Refill Encounter Details Date Type Department Care Team Description 05/29/2021 Refill Department of Family Medicine, Tigre Orellana P.A.-C. Med Refill [facility], in [address] [place] [address] [place] [address] [place] [address] [place] [address] [phone] Social History Tobacco Use Types Packs/Day Years [...] Depression Total Score: 1 06/02/2017 9:34 AM FURNACE LINER documented as of this encounter Care Teams Utility Arborist Relationship Specialty Start Date End Date Tigre Preciado P.A.-C. PCP - General Family Medicine 10/11/[address] [place] [phone] documented as of this encounter
--- OUTSIDE RECORDS SUMMARY | 2022-04-01 13:47 | XMS_ITS | Encounter Summary ---
:1945 Author Organization [facility] Address [address] [place] [address] Care Team Providers Name Role Phone Tigre Preciado P.A.-C. Primary Care Provider [phone] Reason for Visit Reason Comments Follow-up go over CT scan results from 10/30 in [facility]. Outpatient (Routine) - Closed Specialty Diagnoses / Procedures Referred By Contact Refer red To Contact Family Medicine Tigre Preciado P. A.-C. [address] [address] Referral ID Status Reason Start Date Expiration Date Visits Requ ested Visits Authorized [id number] Closed 10/18/2020 10/18/2021 1 1 Encounter Details Date Type Department Care Team Description 10/31/2020 Office Visit Department of Tigre Simon Mi xed Irritable Bowel MedicineJeff P.A.-C. Syndrome (Primary Dx) Clinic, in [address] 300 [facility] [address] [place], [place] [phone] [address] (Work) [phone] Social History Tobacco Use Types Packs/Day Years [...] in this encounter Progress Notes Modesta Byrne R.N. - 10/31/2020 2:30 PM CDT SUBJECTIVE CHIEF COMPLAINT/REASON FOR VISIT Chief Complaint Patient presents with ??? Follow-up go over CT scan results from 10/30 in [facility]. HISTORY OF PRESENT ILLNESS Isadora Back is [...] (go over CT scan resultsfrom 10/30 in [facility] HISTORY OF PRESENT ILLNESS Isadora presents today [...] Depression Total Score: 1 06/02/2017 9:34 AM PROGRAM AIDE GROUP WORK documented as of this encounter Care Teams Strategic Partnership Specialist Relationship Specialty Start Date End Date Tigre Preciado P.A.-C. PCP - General Family Medicine 10/11/19 [address] [place] [phone] documented as of this encounter
--- OUTSIDE RECORDS SUMMARY | 2022-04-01 13:47 | XMS_ITS | Encounter Summary ---
:1945 Author Organization [facility] Address [address] [place] [address] Care Team Providers Name Role Phone Tigre Preciado P.A.-C. Primary Care Provider [phone] Encounter Details Date Type Department Care Team Description 02/24/2021 Admin Visit Department of Family Medicine, [address] [address] [facility] [phone] Social History Tobacco Use Types Packs/Day Years [...] COVID19 Pending 02/23/2021 02/24/2021 02/25/2021 3:12 PM RECREATIONAL PROGRAMS DIRECTOR Assessment Noted Time PHQ-9 Depression Total Score: 1 06/02/2017 9:34 AM RECREATIONAL PROGRAMS DIRECTOR documented as of this encounter Care Teams Plate Stacker Relationship Specialty Start Date End Date Tigre Preciado P.A.-C. PCP - General Family Medicine 10/11/[address] [place] [phone] documented as of this encounter
--- OUTSIDE RECORDS SUMMARY | 2022-04-01 13:47 | XMS_ITS | Encounter Summary ---
:1945 Author Organization [facility] Address [address] [place] [address] Care Team Providers Name Role Phone Tigre Preciado P.A.-C. Primary Care Provider [phone] Reason for Visit Reason Comments Medication Question Encounter Details Date Type Department Care Team Description 02/07/2021 Nurse Triage Department of [facility] Nanda Barakat Me dication Question Medicine, [facility], [facility] [phone] [place] (Work) [address] [place] [address] Social History Tobacco Use Types Packs/Day [...] Depression Total Score: 1 06/02/2017 9:34 AM BENZENE WASHER documented as of this encounter Care Teams Boat Buffer Plastic Relationship Specialty Start Date End Date Tigre Preciado P.A.-C. PCP - General Family Medicine 10/11/19 [address] [place] [address] documented as of this encounter
--- OUTSIDE RECORDS SUMMARY | 2022-04-01 13:47 | XMS_ITS | Encounter Summary ---
:1945 Author Organization [facility] Address [address] [place] [address] Care Team Providers Name Role Phone Tigre Preciado P.A.-C. Primary Care Provider [phone] Encounter Details Date Type Department Care Team Description 02/27/2021 Hospital Encounter Department of Pulmonary Zach Segovia, Chronic Cough Medicine [facility] [address] [place] [phone] Social History Tobacco Use Types Packs/Day Years [...] mouth. vitamin Take 1 tablet by 0 A,C,D-oqfllk-swabwxdw mouth daily. (OCUVITE W/LUTEIN) 1,000 Unit-200 mg-60 [...] Tests PFT Routine Chronic Cough 11:31 AM BRANCH SERVICE LEADER documented as of this encounter Procedures Procedure Name Priority Date/Time Associated Diagnosis Comme nts PULMONARY FUNCTION Routine 02/27/2021 11:31 AM BRANCH SERVICE LEADER Chronic Cou gh TESTS documented in this encounter Visit Diagnoses Diagnosis Chronic Cough documented in this encounter Additional Health Concerns Assessment Noted Time PHQ-9 Depression Total Score: 1 06/02/2017 9:34 AM BRANCH SERVICE LEADER documented as of this encounter Care Teams Tower Foreman Relationship Specialty Start Date End Date Tigre Preciado P.A.-C. PCP - General Family Medicine 10/11/19 [address] [place] [address] documented as of this encounter
--- OUTSIDE RECORDS SUMMARY | 2022-04-01 13:47 | XMS_ITS | Encounter Summary ---
:1945 Author Organization [facility] Address [address] [place] [address] Care Team Providers Name Role Phone Tigre Preciado P.A.-C. Primary Care Provider [phone] Encounter Details Date Type Department Care Team Description 02/07/2021 Clinical Communication Department of [facility], Jeff Edmondson [facility], in [address] 300 [facility] [address] [place], [place] [phone] [address] (Work) [phone] Social History Tobacco Use Types Packs/Day Years [...] this encounter Miscellaneous Notes Telephone Encounter - Maricrzu Easton L.P.N. - 02/11/2021 8:35 AM CDT [...] Patient called. She spoke to Hanna on [facility] and was transferred to [place] to take a message. Isadora saw Janie Pressley on 01/27/21. She is still having the tightness in her chest, cough and phlegm, and having trouble sleeping. (she had a neg covid test on 01/28). She is wondering if she should be seen again or get an Rx? If Rx, she would like it sent to [facility] in [place]. They close at 6:00 today and she lives in [place] so would like a call back as soon as possible. Current Can Nursing/Provider leave a detailed message?: yes Did the patient refuse triage through Nurse line? (for symptom based concerns): She did speak to Action Needed: wants call back Name of Medication (if relevant): Please send all scheduling replies to scheduling pool. documented in this encounter Plan of Treatment Not on filedocumented as of this encounter Visit Diagnoses Not on filedocumented in this encounter Additional Health Concerns Assessment Noted Time PHQ-9 Depression Total Score: 1 06/02/2017 9:34 AM LAND TITLE EXAMINER documented as of this encounter Care Teams Count Team Member Relationship Specialty Start Date End Date Tigre Preciado P.A.-C. PCP - General Family Medicine 10/11/[address] [place] [phone] documented as of this encounter
--- OUTSIDE RECORDS SUMMARY | 2022-04-01 13:47 | XMS_ITS | Encounter Summary ---
:1945 Author Organization [facility] Address [address] [place] [address] Care Team Providers Name Role Phone Tigre Preciado P.A.-C. Primary Care Provider [phone] Reason for Referral Outpatient (Routine) - Closed Specialty Diagnoses / Procedures Referred By Contact Refer red To Contact Family Medicine Tigre Preciado P. A.-C. [facility] [address] [address] Referral ID Status Reason Start Date Expiration Date Visits Requ ested Visits Authorized [id number] Closed 12/30/2020 12/30/2021 1 1 Reason for Visit Reason Comments Follow-up labs taken in October. She will have PAP and Mammo in the future. Outpatient (Routine) - Closed Specialty Diagnoses / Procedures Referred By Contact Refer red To Contact Family Medicine Tigre Preciado P. A.-C. [facility] [address] [address] Referral ID Status Reason Start Date Expiration Date Visits Requ ested Visits Authorized [id number] Closed 11/13/2019 11/12/2020 1 1 Encounter Details Date Type Department Care Team Description 12/30/2020 Comprehensive Visit Department of Disha Preciado ([facility]) (Primary Dx); Family Tigre Mello P.A.-C. Hyponatremia; [facility], [address] [place] [address] Cystocele; in [place] Osteoporosis; [place] [address] Polyp Colon Personal History; [address] [phone] General Medical Examination Adult DEJA NOVAK (Work) [...] Name Type Priority Associated Diagnoses Order [facility] Basic Metabolic Panel Lab Routine Hyponatremia Expect ed: 12/30/2021 (Approximate), Expires: 12/31/2023 Scheduled Referrals Name Type Priority Associated Diagnoses Order [facility] Family Medicine Outpatient Referral Routine Expec erickson: office visit 12/30/2021 (clinic) (Approximate), Expires: 12/31/2023 documented as of this encounter Visit Diagnoses Diagnosis Asthma (HCC) - Primary Hyponatremia Cystocele Osteoporosis Polyp Colon Personal History General Medical Examination Adult documented in this encounter Additional Health Concerns Assessment Noted Time PHQ-9 Depression Total Score: 1 06/02/2017 9:34 AM SPINNING MACHINE TENDER documented as of this encounter Care Teams Artificial Teeth Inspector Relationship Specialty Start Date End Date Tigre Preciado P.A.-C. PCP - General Family Medicine 10/11/19 [address] [place] [address] documented as of this encounter
--- OUTSIDE RECORDS SUMMARY | 2022-04-01 13:47 | XMS_ITS | Encounter Summary ---
:1945 Author Organization [facility] Address [address] [place] [address] Care Team Providers Name Role Phone Tigre Preciado P.A.-C. Primary Care Provider [phone] Reason for Visit Reason Comments Medication Question Encounter Details Date Type Department Care Team Description 11/06/2020 Clinical Communication Department of Charles Preciado Family MedicineTigre [facility] in [address] 300 [facility] [address] [place], [place] [phone] [address] (Work) [phone] Social History Tobacco Use Types Packs/Day Years [...] that patient was seen for this at [facility] and prescribed Amoxicillin. Telephone [...] States the wrong Prescription was sent to [place]. Patient states she cannot take Augmentin as she throws that up. States [facility] Current Can Nursing/Provider leave a detailed message?: yes Did the patient refuse triage through Nurse line? (for symptom based concerns): n/a Action Needed: Call Pharmacy Name of Medication (if relevant): Amoxicillin Please send all scheduling replies to scheduling pool. Telephone Encounter - Nevaeh Baca - 11/06/2020 12:26 PM CDT Reason for Communication: Pharmacist from [facility] called in and stated that patient will not take the compound Amoxicillin since last time she took it she got sick. Patient is willing to try just Amoxicillin. Please send new script to [facility] in [place] Current Can Nursing/Provider leave a detailed message?: No Did the patient refuse triage through Nurse line? (for symptom based concerns): Action Needed: Please send new script to [facility] in [place] Name of Medication (if relevant): amoxicillin-pot clavulanate (AUGMENTIN) Please send all scheduling replies to scheduling pool. documented in this encounter Plan of Treatment Not on filedocumented as of this encounter Visit Diagnoses Not on filedocumented in this encounter Additional Health Concerns Assessment Noted Time PHQ-9 Depression Total Score: 1 06/02/2017 9:34 AM WASTEWATER PROCESS ENGINEER documented as of this encounter Care Teams Power Line Lineman Relationship Specialty Start Date End Date Tigre Preciado P.A.-C. PCP - General Family Medicine 10/11/[address] [place] [phone] documented as of this encounter
--- OUTSIDE RECORDS SUMMARY | 2022-04-01 13:47 | XMS_ITS | Encounter Summary ---
:1945 Author Organization [facility] Address [address] [place] [address] Care Team Providers Name Role Phone Tigre Preciado P.A.-C. Primary Care Provider [phone] Reason for Visit Reason Onset Date Comments Testing For Upper Respiratory Virus Symptoms 01/27/2021 Encounter Details Date Type Department Care Team Description 01/27/2021 External Outreach Department of Family Sree Posadas Contact With And Medicine, Waylon Montanez D.O. (Suspected) Exposure Clinic, in [place], [address] To COVID-19 (Primary [place], [place] Dx) [address] [address] [place], [place] [phone] (Work) [phone] Social History Tobacco Use Types Packs/Day Years [...] RNA, V Symptomatic (01/28/2021 10:39 AM CDT) [facility] Method Time Signature SARS-CoV-2 Swab, 01/28/2021 [...] pe rformed using the Aptima SARS-CoV-2 assay ([employer] on the iPrints tem under emergency use authorization (EUA) by the U.S. Food and Drug Administ ration. Fact sheets for this EUA assay can be fo und at the following links: For Healthcare Providers: https://www.fd a.gov/media/078823/download For Patients: https://www.fda.gov/media/ 068494/download Specimen Anatomical Collection Method Collection Time Receive d Time (Source) Location / / Volume Laterality Varies 01/28/2021 10:39 01/28/2021 2:47 (Nasopharynx) AM CDT PM CDT Sree Posadas D.O. LAB MICROBIOLOGY - GENERAL O RDERABLES Performing Organization Address City/State/ZIP Code Phon e Number [facility]- [address] [place] [address] [place] [address] [address] documented in this encounter Visit Diagnoses Diagnosis Contact With And (Suspected) Exposure To COVID-19 - Primary documented in this encounter Additional Health Concerns Infection Onset Date Last Indicated Resolved Time COVID19 Pending 01/27/2021 01/28/2021 01/28/2021 9:44 PM CDT Assessment Noted Time PHQ-9 Depression Total Score: 1 06/02/2017 9:34 AM EMBALMER ASSISTANT documented as of this encounter Care Teams Healthcare Financial Analyst Relationship Specialty Start Date End Date Tigre Preciado P.A.-C. PCP - General Family Medicine 10/11/19 [address] [place] [address] documented as of this encounter
--- OUTSIDE RECORDS SUMMARY | 2022-04-01 13:47 | XMS_ITS | Encounter Summary ---
:[address] [facility] Address [address] [place] [address] Care Team Providers Name Role Phone Tigre Preciado P.A.-C. Primary Care Provider [phone] Reason for Visit Reason Comments Form Review [facility] PT POC 03/27/21 Encounter Details Date Type Department Care Team Description 03/28/2021 Clinical Communication Department of Ilana, Form [facility] [address] 300 [facility] [address] [place], [place] [phone] [phone] (Work) [phone] Social History Tobacco Use Types Packs/Day Years [...] back to facility and sent for scanning. D CONTROL INSPECTOR Telephone Encounter - Carie Ahmadi - 03/28/2021 11:43 AM CST Form was emailed to Tigre Preciado PA-C for electronic review/signature. ORGANIC LAB WORKER: [facility] PHONE NUMBER: [phone] INFO REQUESTED: PT POC 03/27/21 INSTRUCTIONS: Fax form to [phone] D CONTROL INSPECTOR documented in this encounter Plan of Treatment Not on filedocumented as of this encounter Visit Diagnoses Not on filedocumented in this encounter Additional Health Concerns Assessment Noted Time PHQ-9 Depression Total Score: 1 06/02/2017 9:34 AM FIELD CONTROL INSPECTOR documented as of this encounter Care Teams Children'S Nursery Assistant Relationship Specialty Start Date End Date Tigre Preciado P.A.-C. PCP - General Family Medicine 10/11/[address] [place] [phone] documented as of this encounter
--- OUTSIDE RECORDS SUMMARY | 2022-04-01 13:47 | XMS_ITS | Encounter Summary ---
:1945 Author Organization [facility] Address [address] [place] [address] Care Team Providers Name Role Phone Tigre Preciado P.A.-C. Primary Care Provider [phone] Reason for Visit Reason Comments Cough productive cough, sinus drai nage, bouts of diarrhea, fatigue for the last four days - diagnosed with bronch itis on 01/07/2021 Outpatient (Routine) - Closed Specialty Diagnoses / Procedures Referred By Contact Refer red To Contact Family Medicine Tigre Preciado P. A.-C. [facility] Region [address] [place] [address] Referral ID Status Reason Start Date Expiration Date Visits Requ ested Visits Authorized [id number] Closed 12/30/2020 12/30/2021 1 1 Encounter Details Date Type Department Care Team Description 01/27/2021 Office Visit Department of [facility] Mary Segovia, Segundo nba Cough (Primary Dx); MedicineJeff P.A.-C. Drip Post Nasal; Clinic, in [facility] [address] Pending Sale To [facility]; [place], [place] Cerumen Impacted Right [address] [facility] [address] [place] [address] [place], [place] [phone] [address] (Work) [phone] Social History Tobacco Use Types Packs/Day Years [...] documented in this encounter Patient Instructions Patient InstructionsMary Segovia P.A.-C. - 01/27/2021 1:30 PM CDT Cetrizine [...] She denies fevers. Patient was at the [employer] this weekend and may have had COVID [...] Disp: 9 tablet, Rfl: 5 ??? vitamin A,C,Z-ljsqzr-tsmbgwle (OCUVITE W/LUTEIN) 1,000 Unit-200 mg-60 Unit-2 mg [...] plan. Total time spent is 25 minutes. Mary Segovia P.A.-C. Mary Segovia P.A.-C. - 01/27/2021 [...] Tests PFT Routine Chronic Cough 11:31 AM INTEGRATED CIRCUIT FABRICATOR documented as of this encounter Visit Diagnoses Diagnosis Chronic Cough - Primary Drip Post Nasal Fatigue Cerumen Impacted Right documented in this encounter Additional Health Concerns Assessment Noted Time PHQ-9 Depression Total Score: 1 06/02/2017 9:34 AM INTEGRATED CIRCUIT FABRICATOR documented as of this encounter Care Teams Stretching Machine Tender Frame Relationship Specialty Start Date End Date Tigre Preciado P.A.-C. PCP - General Family Medicine 10/11/19 [address] [place] [phone] documented as of this encounter
--- OUTSIDE RECORDS SUMMARY | 2022-04-01 13:47 | XMS_ITS | Encounter Summary ---
:1945 Author Organization [facility] Address [address] [place] [address] Care Team Providers Name Role Phone Tigre Preciado P.A.-C. Primary Care Provider [phone] Reason for Referral Outpatient (Routine) - Authorized Specialty Diagnoses / Procedures Referred By Contact Refer red To Contact Diagnoses Screening Mammogram Breast Cancer Tigre Preciado P.A.-C. [facility] Region Procedures BI Breast Screening Bilateral with Tomosynthesis [address] [place] [address] Referral ID Status Reason Start Date Expiration Date Visits V isits Requested Authorized [id number] Authorized 02/17/2022 02/17/2023 1 1 Encounter Details Date Type Department Care Team Description 02/17/2022 Orders Only [facility] SEMN PCP [facility] MNT Tigre Preciado, Screening Mammogram P.Manuel Breast Cancer [address] [place] [phone] Social History Tobacco Use Types Packs/Day Years [...] of this encounter Plan of Treatment Scheduled Orders Name Type Priority Associated Order Schedule Diagnoses BI Breast Screening Imaging RAD - Routine (most Screening Mamm ogram Expected: Bilateral with inpatients and all Breast Cancer 2021, Tomosynthesis outpatients) Expires: 08/16/2022 documented as of this encounter Visit Diagnoses Diagnosis Screening Mammogram Breast Cancer documented in this encounter Additional Health Concerns Assessment Noted Time PHQ-9 Depression Total Score: 1 06/02/2017 9:34 AM MEDIA SERVICES SPECIALIST documented as of this encounter Care Teams Nursing Staffing Coordinator Relationship Specialty Start Date End Date Tigre Preciado P.A.-C. PCP - General Family Medicine 10/11/19 [address] [place] [phone] documented as of this encounter
--- OUTSIDE RECORDS SUMMARY | 2022-04-01 13:47 | XMS_ITS | Encounter Summary ---
:1945 Author Organization [facility] Address [address] [place] [address] Care Team Providers Name Role Phone Tigre Preciado P.A.-C. Primary Care Provider [phone] Reason for Visit Reason Comments Form Review Chase PT 11/25/20 POC Encounter Details Date Type Department Care Team Description 11/25/2020 Clinical Communication Department of Ilana, Form Review ([facility] MedicineTigre, PT 11/25/20 P OC ) [facility] [address] [facility] [address] [place], [place] [phone] [address] (Work) [phone] Social History Tobacco Use Types Packs/Day Years [...] to Tigre Preciado PA-C for electronic review/signature. SECURITY INCIDENT HANDLER: [facility] Physical [facility] PHONE NUMBER: [phone] INFO REQUESTED: POC 11/25/20 INSTRUCTIONS: Fax form to [phone] documented in this encounter Plan of Treatment Not on filedocumented as of this encounter Visit Diagnoses Not on filedocumented in this encounter Additional Health Concerns Assessment Noted Time PHQ-9 Depression Total Score: 1 06/02/2017 9:34 AM FIREWORKS DISPLAY SPECIALIST documented as of this encounter Care Teams Tenterer Relationship Specialty Start Date End Date Tigre Preciado P.A.-C. PCP - General Family Medicine 10/11/[address] [place] [phone] documented as of this encounter
--- OUTSIDE RECORDS SUMMARY | 2022-04-01 13:47 | XMS_ITS | Encounter Summary ---
:1945 Author Organization [facility] Address [address] [place] [address] Care Team Providers Name Role Phone Tigre Preciado P.A.-C. Primary Care Provider [phone] Reason for Visit Reason Onset Date Comments Outpatient COVID-19 Testing 02/23/2021 Encounter Details Date Type Department Care Team Description 02/23/2021 External Outreach Department of Family Sree Posadas Contact With And Medicine, John Montanez D.O. (Suspected) Exposure Building, in [address] To COVID-19 (Primary [place], [place] Dx) [address] [facility] [address] [place], [place] [phone] [address] (Work) [phone] Social History Tobacco Use Types Packs/Day Years [...] CST Encounter created for infectious disease screening. E SETTER documented in this encounter Plan of Treatment Not on filedocumented as of this encounter Procedures Procedure Name Priority Date/Time Associated Diagnosis Comme nts SARS CORONAVIRUS-2 Routine 02/24/2021 11:04 AM Contact With An d Results for this RNA, V PLATE SETTER (Suspected) Exposure procedu re are in To COVID-19 the results section. documented in this encounter Results SARS Coronavirus-2 RNA, V Asymptomatic (02/24/2021 11:04 AM PLATE SETTER) [facility] Method Time Signature SARS-CoV-2 Swab, 02/25/2021 MKTO Specimen Nasopharynx 3:11 PM PLATE SETTER Source SARS CoV-2 Undetected Undetected 02/25/2021 MKTO RNA, TMA 3:11 PM PLATE SETTER Comment: SARS-CoV-2 RNA absent. This result does not rule out COVID-19 in the patient, as the sensitivity of the test depends o n the timing of the specimen collection and the quality of the specim en. Result should be correlated with patient's history and clinical presentat ion. ----ADDITIONAL INFORMATION---- This molecular amplification test was pe rformed using the Aptima SARS-CoV-2 assay ([employer] on the [employer] Sys tem under emergency use authorization (EUA) by the U.S. Food and Drug Administ ration. Fact sheets for this EUA assay can be fo und at the following links: For Healthcare Providers: https://www.fd a.gov/media/232011/download For Patients: https://www.fda.gov/media/ 682759/download Specimen Anatomical Collection Method Collection Time Receive d Time (Source) Location / / Volume Laterality Varies 02/24/2021 11:04 02/25/2021 7:49 (Nasopharynx) AM PLATE SETTER AM PLATE SETTER Sree Posadas D.O. LAB MICROBIOLOGY - GENERAL O RDERABLES Performing Organization Address City/State/ZIP [facility] [place] Number [facility]- [address] [place] [address] [place] [address] System [address] documented in this encounter Visit Diagnoses Diagnosis Contact With And (Suspected) Exposure To COVID-19 - Primary documented in this encounter Additional Health Concerns Infection Onset Date Last Indicated Resolved Time COVID19 Pending 02/23/2021 02/24/2021 02/25/2021 3:12 PM PLATE SETTER Assessment Noted Time PHQ-9 Depression Total Score: 1 06/02/2017 9:34 AM PLATE SETTER documented as of this encounter Care Teams Neuropsychology Division Chief Relationship Specialty Start Date End Date Tigre Prceiado P.A.-C. PCP - General Family Medicine 10/11/[address] [place] [phone] documented as of this encounter
--- OUTSIDE RECORDS SUMMARY | 2022-04-01 13:47 | XMS_ITS | Encounter Summary ---
:1945 Author Organization [facility] Address [address] [place] [address] Care Team Providers Name Role Phone Tigre Preciado P.A.-C. Primary Care Provider [phone] Reason for Visit Reason Comments Cough JAMARCUS Nurse Barb Encounter Details Date Type Department Care Team Description 07/17/2021 Nurse Triage Department of [facility] Garima Serrato; JAMARCUS Nurse [facility] [place] Do[place] R.N. [facility], [facility] [phone] [place] (Work) [address] [place] [phone] Social History Tobacco Use Types Packs/Day [...] yes The following references were used: provider Tiger Preciado P.A.-C. Telephone Encounter - Tigre Preciado [...] RSV and Strep Select appropriate region: : [place] Do you have any of the following [...] frequently with soap and water, use hand electrical tester if soap and water aren't available. -Wear [...] care: No The following references were used: [facility] novel coronavirus (COVID- 19) resources Nursing [...] for an antibiotic can be sent to [facility] on file. Reason for Disposition ??? [1] Known COPD or other severe lung disease (i.e., bronchiectasis, cystic fibrosis, lung surgery) AND [2] worsening symptoms (i.e., increased sputum purulence or amount, increased breathing difficulty Protocols used: COUGH - ACUTE [id number] Care Advice Patient/Caregiver understands and will follow [...] Depression Total Score: 1 06/02/2017 9:34 AM GERIATRICS PHYSICIAN documented as of this encounter Care Teams Substance Abuse Specialist Relationship Specialty Start Date End Date Tigre Preciado P.A.-C. PCP - General Family Medicine 10/11/[address] [place] [phone] documented as of this encounter
--- OUTSIDE RECORDS SUMMARY | 2022-04-01 13:47 | XMS_ITS | Encounter Summary ---
:1945 Author Organization [facility] Address [address] [place] [address] Care Team Providers Name Role Phone Tigre Preciado P.A.-C. Primary Care Provider [phone] Reason for Referral Outpatient (Routine) - Closed Specialty Diagnoses / Procedures Referred By Contact Refer red To Contact Diagnoses Screening Mammogram Breast Cancer Tigre Preciado P.A.-C. [facility] Region Procedures BI Breast Screening Bilateral with Tomosynthesis [address] [place] [address] Referral ID Status Reason Start Date Expiration Date Visits Requ ested Visits Authorized [id number] Closed 12/03/2020 12/03/2021 1 1 Reason for Visit Outpatient (Routine) - Closed Specialty Diagnoses / Procedures Referred By Contact Refer red To Contact Diagnoses Screening Mammogram Breast Cancer Tigre Preciado P.A.-C. [facility] Region Procedures BI Breast Screening Bilateral with Tomosynthesis [address] [place] [address] Referral ID Status Reason Start Date Expiration Date Visits Requ ested Visits Authorized [id number] Closed 12/03/2020 12/03/2021 1 1 Encounter Details Date Type Department Care Team Description 01/21/2021 Hospital Encounter Department of Loco Preciado Mammogram Radiology in [place]os Breast Cancer [place], [place] [address], [place]JA NOVAK [phone] Social History Tobacco Use Types Packs/Day [...] mouth. vitamin Take 1 tablet by 0 A,C,N-ibyest-bbdshnyq mouth daily. (OCUVITE W/LUTEIN) 1,000 Unit-200 mg-60 [...] Imaging RST LOS, Breast Imaging ARZ LOS, [place] Bilateral Mammography Imaging FLA [facility] Specimen (Source) Anatomical Collection Method Collection [...] TOMOSYNTHESIS Current study was evaluated with a Pigitu ter Aided Detection (CAD) system. INDICATION: Screening [...] Depression Total Score: 1 06/02/2017 9:34 AM PARCEL WRAPPER documented as of this encounter Care Teams Driver Education Instructor Relationship Specialty Start Date End Date Tigre Preciado P.A.-C. PCP - General Family Medicine 10/11/19 [address] [place] [phone] documented as of this encounter
--- OUTSIDE RECORDS SUMMARY | 2022-04-01 13:47 | XMS_ITS | Clinical Summary ---
:1945 Author Organization [facility] Address [address] [place] [address] Care Team Providers Name Role Phone Tigre Preciado P.A.-C. Primary Care Provider [phone] Source Comments Patient records contain information from all sites at [facility]. For routine questions regarding patient records, call [phone] during business hours, M-F 8:00 AM - 5:00 PM Central Time. Record requests for emergency care only can be directed to [phone] at any time.[facility] Allergies Active Allergy Reactions Severity Noted Date [...] Take 1 tablet by 0 Act angelique A,C,T-xguuqt-kptmuzgc mouth daily. (OCUVITE W/LUTEIN) 1,000 Unit-200 mg-60 [...] will continue to work with her current learning and development analyst. We also discussed management options with vaginal [...] is agreeable to this plan of care. Encounters Date Type Specialty Care Team Description 02/17/2022 Orders Only Tigre Preciado, Screening Mammogram Breast P.A.-C. Cancer from Last 3 Months Immunizations Name Administration Dates Next Due Influenza, Injectable, Quadrivalent 02/19/2020 Influenza, Seasonal, Injectable 04/06/2012, 01/21/2009, 06/2007, 02/15/2007, 02/24/2006 Influenza, Unspecified 03/07/2014, 02/16/2013, 04/06/2012 PCV13 05/29/2014 PPSV23 04/08/2012 RZV (SHINGRIX) 02/21/2020 (Deferred: Other) SARS-COV-2 (COVID-19) - MODERNA 07/04/2020, 06/06/2020 Td (Adult), adsorbed 01/23/2003 Tdap 04/03/2013 Zoster, Unspecified 02/21/2020 (Deferred: Other) influenza vaccine quad 02/03/2021, 02/19/2020 (FLUZONE/FLUARIX) (6 months and older)(PF) Family History Medical History Relation Name Comments Cancer Brother tiim laryngeal cancer Cancer Father laryngeal cancer Hypertension Father Breast cancer Mother COPD Mother Diabetes Mother Hypertension Mother Macular degeneration Mother Breast cancer Mother's Sister Coronary artery disease Sister nara Pacemaker pulse generator Sister nara Retinal detachment Sister nara Relation Name Status Comments Brother tiim (Age 52) Father (Age 80) Mother (Age [...] Addre ss Type Group UCARE UCARE FOR [id number] 2019-Present [phone] [address] [place] [address] Care Teams Client Delivery Manager Relationship Specialty Start Date End Date Tigre Preciado P.A.-C. PCP - General Family Medicine 10/11/19 [address] [facility] [place] [phone]
--- OUTSIDE RECORDS SUMMARY | 2022-04-01 13:47 | XMS_ITS | Encounter Summary ---
:1945 Author Organization [facility] Address [address] [place] [address] Care Team Providers Name Role Phone Tigre Preciado P.A.-C. Primary Care Provider Encounter Details Date Type Department Care Team Description 01/28/2021 Admin Visit Department of Family Medicine, [address] [address] [facility] [phone] Social History Tobacco Use Types Packs/Day Years [...] Depression Total Score: 1 06/02/2017 9:34 AM INTERNAL SECURITY MANAGER documented as of this encounter Care Teams Security System Technician Relationship Specialty Start Date End Date Tigre Preciado P.A.-C. PCP - General Family Medicine 10/11/[address] [place] [phone] documented as of this encounter
--- OUTSIDE RECORDS SUMMARY | 2022-04-01 13:48 | XMS_ITS | Encounter Summary ---
:1945 Author Organization [facility] Address [address] [place] [address] Care Team Providers Name Role Phone Tigre Preciado P.A.-C. Primary Care Provider [phone] Reason for Visit Reason Comments Results Encounter Details Date Type Department Care Team Description 10/18/2020 Clinical Communication Department of [facility] Tigre Preciado, [facility] Medicine, [facility], in [address] [address] [place], [place] [phone] (Work) [phone] Social History Tobacco Use Types Packs/Day Years [...] Depression Total Score: 1 06/02/2017 9:34 AM CORRUGATED FASTENER DRIVER documented as of this encounter Care Teams Quality Improvement Coordinator Relationship Specialty Start Date End Date Tigre Preciado P.A.-C. PCP - General Family Medicine 10/11/19 [address] [place] [address] documented as of this encounter
--- OUTSIDE RECORDS SUMMARY | 2022-04-01 13:48 | XMS_ITS | Encounter Summary ---
:1945 Author Organization [facility] Address [address] [place] [address] Care Team Providers Name Role Phone Tigre Preciado P.A.-C. Primary Care Provider Reason for Referral Outpatient (Routine) - Closed Specialty Diagnoses / Procedures Referred By Contact Refer red To Contact Diagnoses Screening Mammogram Breast Cancer Tigre Preciado P.A.-C. [facility] Region Procedures BI Breast Screening Bilateral [address] [place] [address] Referral ID Status Reason Start Date Expiration Date Visits Requ ested Visits Authorized [id number] Closed 11/13/2019 11/12/2020 1 1 Reason for Visit Outpatient (Routine) - Closed Specialty Diagnoses / Procedures Referred By Contact Refer red To Contact Diagnoses Screening Mammogram Breast Cancer Tigre Preciado P.A.-C. [facility] Region Procedures BI Breast Screening Bilateral [address] [place] [address] Referral ID Status Reason Start Date Expiration Date Visits Requ ested Visits Authorized [id number] Closed 11/13/2019 11/12/2020 1 1 Encounter Details Date Type Department Care Team Description 11/21/2019 Hospital Encounter Department of Loco Preciado Mammogram Radiology in [place] Landeros Breast Cancer [place], [place] [address] [address] [phone] Social History Tobacco Use Types Packs/Day Years [...] mouth. vitamin Take 1 tablet by 0 A,C,X-bduksb-jmwdsxae mouth daily. (OCUVITE W/LUTEIN) 1,000 Unit-200 mg-60 [...] Imaging RST LOS, Breast Imaging ARZ LOS, [address] Bilateral Mammography Imaging FLA [facility] Specimen (Source) Anatomical Collection Method Collection [...] Depression Total Score: 1 06/02/2017 9:34 AM SHORT HAUL DRIVER documented as of this encounter Care Teams Medical Service Representative Relationship Specialty Start Date End Date Tigre Preciado P.A.-C. PCP - General Family Medicine 10/11/[address] [place] [phone] documented as of this encounter
--- OUTSIDE RECORDS SUMMARY | 2022-04-01 13:48 | XMS_ITS | Encounter Summary ---
:1945 Author Organization [facility] Address [address] [place] [address] Care Team Providers Name Role Phone Tigre Preciado P.A.-C. Primary Care Provider [phone] Reason for Visit Reason Comments Medication Question Pharm calling Encounter Details Date Type Department Care Team Description 12/01/2019 Clinical Communication Department of Charles Zafar Obstetrics and Oc Montanez (Pharm callin g) [facility], [address] [place], [place] 200 [facility] [address] [place], [place] [phone] [address] (Work) [phone] Social History Tobacco Use Types Packs/Day Years [...] Depression Total Score: 1 06/02/2017 9:34 AM OXYGEN FURNACE OPERATOR documented as of this encounter Care Teams Embryology Professor Relationship Specialty Start Date End Date Tigre Preciado P.A.-C. PCP - General Family Medicine 10/11/[address] [place] [phone] documented as of this encounter
--- OUTSIDE RECORDS SUMMARY | 2022-04-01 13:48 | XMS_ITS | Encounter Summary ---
:1945 Author Organization [facility] Address [address] [place] [address] Care Team Providers Name Role Phone Tigre Preciado P.A.-C. Primary Care Provider [phone] Reason for Visit Reason Comments Pain Mouth sores 3 days, Sore Throat from mouth sores Nausea 3 days on and off from mout h sores Outpatient (Routine) - Closed Specialty Diagnoses / Procedures Referred By Contact Refer red To Contact Diagnoses Nausea Tigre Preciado P.A.-C. [facility] Region [address] [place] [address] Referral ID Status Reason Start Date Expiration Date Visits Requ ested Visits Authorized [id number] Closed 02/12/2020 02/11/2021 1 1 Encounter Details Date Type Department Care Team Description 02/12/2020 Office Visit Urgent Care in Tigre Preciado P.A.-C. [address] [place] [address] Sialoadenitis ([place], [place] Del Garrett P.A.-C. [address] [place] [address] Dx) [address] [place] [address] Social History Tobacco Use Types [...] migraine unresolved. 9 tablet 5 ??? vitamin A,C,L-izwrjs-lsxhfnll (OCUVITE W/LUTEIN) 1,000 Unit-200 mg-60 Unit-2 mg [...] Depression Total Score: 1 06/02/2017 9:34 AM AIRCRAFT INSTRUMENT MECHANIC documented as of this encounter Care Teams Drivers License Examiner Relationship Specialty Start Date End Date Tigre Preciado P.A.-C. PCP - General Family Medicine 10/11/19 [address] [place] [phone] documented as of this encounter
--- OUTSIDE RECORDS SUMMARY | 2022-04-01 13:48 | XMS_ITS | Encounter Summary ---
:1945 Author Organization [facility] Address [address] [place] [address] Care Team Providers Name Role Phone Tigre Preciado P.A.-C. Primary Care Provider [phone] Encounter Details Date Type Department Care Team Description 10/18/2020 Hospital Encounter Department of Ilana, Pain Lef t Lower Quadrant; Radiology in [place] Landeros Bloating Abdominal; [place], [place] [address] Nausea [address] [facility] [place] [phone] Social History Tobacco Use Types Packs/Day Years [...] mouth. vitamin Take 1 tablet by 0 A,C,V-qjnxga-osoioqko mouth daily. (OCUVITE W/LUTEIN) 1,000 Unit-200 mg-60 [...] Depression Total Score: 1 06/02/2017 9:34 AM COMBER SETTER documented as of this encounter Care Teams Customer Service Supervisor Relationship Specialty Start Date End Date Tigre Preciado P.A.-C. PCP - General Family Medicine 10/11/19 [address] [place] [address] documented as of this encounter
--- OUTSIDE RECORDS SUMMARY | 2022-04-01 13:48 | XMS_ITS | Encounter Summary ---
:1945 Author Organization [facility] Address [address] [place] [address] Care Team Providers Name Role Phone Tigre Preciado P.A.-C. Primary Care Provider [phone] Reason for Visit Reason Comments Follow-up From [facility] about mouth infecti on Appointment Request (Routine) - Closed Specialty Diagnoses / Procedures Referred By Contact Refer red To Contact Family Medicine Referral ID Status Reason Start Date Expiration Date Visits Requ ested Visits Authorized [id number] Closed 02/21/2020 02/20/2021 1 1 Encounter Details Date Type Department Care Team Description 02/21/2020 Office Visit Department of Family Tigre Preciado Ch eilitis Angular (Primary Dx); Medicine, [facility], in [address] 300 [facility] [address] [place], [place] [phone] (Work) [phone] Social History Tobacco Use Types Packs/Day Years [...] Comments Blood Pressure 146/60 02/21/2020 1:10 PM MARKETING INTELLIGENCE ANALYST Pulse 86 02/21/2020 1:05 PM MARKETING INTELLIGENCE ANALYST Temperature 36.7 ??C (98.1 ??F) 02/21/2020 1:05 PM MARKETING INTELLIGENCE ANALYST Respiratory Rate 18 02/21/2020 1:05 PM MARKETING INTELLIGENCE ANALYST Oxygen Saturation - - Inhaled Oxygen Concentration - - Weight 56.7 kg (125 lb) 02/21/2020 1:05 PM MARKETING INTELLIGENCE ANALYST Height - - Body Mass Index 22.43 01/12/2020 10:06 AM CDT documented in this encounter Progress Notes Tigre Preciado P.A.-C. - 02/21/2020 1:30 PM CST CHIEF COMPLAINT / REASON FOR VISIT Isadora Back is a 74 y.o. female who presents for evaluation of Follow-up (From [facility] about mouth infection). HISTORY OF PRESENT ILLNESS [...] ENT for possible biopsy. Tigre Preciado P.A.-C. ETING INTELLIGENCE ANALYST documented in this encounter Plan of Treatment Not on filedocumented as of this encounter Visit Diagnoses Diagnosis Cheilitis Angular - Primary Aphthous Ulcer documented in this encounter Additional Health Concerns Assessment Noted Time PHQ-9 Depression Total Score: 1 06/02/2017 9:34 AM MARKETING INTELLIGENCE ANALYST documented as of this encounter Care Teams Counseling Services Director Relationship Specialty Start Date End Date Tigre Preciado P.A.-C. PCP - General Family Medicine 10/11/19 [address] [place] [phone] documented as of this encounter
--- OUTSIDE RECORDS SUMMARY | 2022-04-01 13:48 | XMS_ITS | Encounter Summary ---
:1945 Author Organization [facility] Address [address] [place] [address] Care Team Providers Name Role Phone Tigre Preciado P.A.-C. Primary Care Provider [phone] Reason for Referral Outpatient (Routine) - Closed Specialty Diagnoses / Procedures Referred By Contact Refer red To Contact Family Medicine Tigre Preciado P. A.-C. [facility] Region [address] [place] [phone] Referral ID Status Reason Start Date Expiration Date Visits Requ ested Visits Authorized [id number] Closed 10/18/2020 10/18/2021 1 1 Reason for Visit Reason Comments Follow-up nausea/gas, vomiting, follow up from same day clinic, abdominal pain. Appointment Request (Routine) - Closed Specialty Diagnoses / Procedures Referred By Contact Refer red To Contact Family Medicine Referral ID Status Reason Start Date Expiration Date Visits Requ ested Visits Authorized [id number] Closed 10/18/2020 10/18/2021 1 1 Encounter Details Date Type Department Care Team Description 10/18/2020 Office Visit Department of Tigre Simon Pa in Left Lower Quadrant (Primary Dx); MedicineJeff P.A.-C. Bloating Abdominal; Clinic, in [address] [address] [place], [place] [phone] (Work) [phone] Social History Tobacco Use Types Packs/Day Years [...] Name Type Priority Associated Diagnoses Order S [facility] Medicine Outpatient Referral Routine Expec erickson: [...] Transglutaminase), Antibody, IgA (10/18/2020 11:09 AM CDT) [facility] gist Method Time Signature Tissue <1.2 <4.0 10/22/2020 [facility] Transglutaminase Ab, (Negative 3:45 PM CDT IgA, S ) U/mL Specimen Anatomical Collection Method Collection Time Receive d Time (Source) Location / / Volume Laterality Blood 10/18/2020 11:09 10/22/2020 AM CDT 10:51 AM CDT Tigre Preciado P.A.-C. LAB BLOOD ADD-ON Performing Organization Address City/[facility] Code Phon e Number [facility] [address] HELIO Rivera [facility] 05 SUPPORT [facility] [place] [address] Laboratory Medicine and Pathology [address] [place] [address] Dr. CADET Celiac Disease Serology [place] (10/18/2020 11:09 AM CDT) Component Value Ref Test Analysis Performed Pathologis t Range Method Time At Signature Immunoglobulin A 162 61 - 356 10/22/2020 [facility] (IgA), S mg/dL 7:53 AM CDT Celiac Disease Negative serology. Celiac di sease unlikely. However, approximately 10% of 10/22/2020 [facility] Interpretation patients with celiac disease are seronegative. Also, patients who are already 10:13 PM adhering to a gluten-free diet may be seronegative. If everett iac disease is CDT highly clinically suspected, consider HLA-DQ typing. Specimen Anatomical Collection Method Collection Time Receive d Time (Source) Location / / Volume Laterality Blood (Blood, 10/18/2020 11:09 10/22/2020 6:10 Venous) AM CDT AM CDT Narrative [facility] - 10/22/2020 10:13 PM CDT Specimen Information: Specimen ID: [id number] Specimen Type: Blood Specimen Collection Start Date: 11:09 AM Specimen Received Date: 10/22/2020 ??6:10 AM Specimen ID: [id number] Specimen Type: Blood Specimen Collection Start Date: 11:09 AM Specimen Received Date: 10/19/2020 ??7:07 AM Tigre Preciado P.A.-C. LAB BLOOD ADD-ON Performing Organization Address City/State/ZIP Code Phon e Number [facility] [address] Jesus [address] SU[address] [facility] [place] [address] Laboratory Medicine and Pathology [address] [place] [address] Dr. CADET CBC with Differential, Blood (10/18/2020 [...] Organization Address City/State/ZIP Code Phon e Number [facility]- [address] [place] [address] [facility] [address] [place] [address] System in [place] [address] (ABNORMAL) Comprehensive Metabolic Panel (10/18/2020 [...] CDT eGFR-Black/Afri 78 >=60 10/18/2020 [facility] can [place] mL/min/BSA 2:13 PM CDT Comment: ----ADDITIONAL INFORMATION---- [...] Organization Address City/State/ZIP Code Phon e Number [facility]- [address] [place] [address] [place] [address] System in [place] [address] DX Abdomen 1 [...] Depression Total Score: 1 06/02/2017 9:34 AM GLOVE STITCHER documented as of this encounter Care Teams Manager Ent Relationship Specialty Start Date End Date Tigre Preciado P.A.-C. PCP - General Family Medicine 10/11/[address] [place] [phone] documented as of this encounter
--- OUTSIDE RECORDS SUMMARY | 2022-04-01 13:48 | XMS_ITS | Encounter Summary ---
:1945 Author Organization [facility] Address [address] [place] [address] Care Team Providers Name Role Phone Tigre Preciado P.A.-C. Primary Care Provider [phone] Encounter Details Date Type Department Care Team Description 01/24/2020 Clinical Communication Department of [facility], Jeff Edmondson [facility], in [address] [address] [place], [place] [phone] (Work) [phone] Social History Tobacco Use Types Packs/Day Years [...] Depression Total Score: 1 06/02/2017 9:34 AM CASH PROCESSING SPECIALIST documented as of this encounter Care Teams Surface Miner Relationship Specialty Start Date End Date Tigre Preciado P.A.-C. PCP - General Family Medicine 10/11/[address] [place] [phone] documented as of this encounter
--- OUTSIDE RECORDS SUMMARY | 2022-04-01 13:48 | XMS_ITS | Encounter Summary ---
:1945 Author Organization [facility] Address [address] [place] [address] Care Team Providers Name Role Phone Tigre Preciado P.A.-C. Primary Care Provider [phone] Encounter Details Date Type Department Care Team Description 10/18/2020 Clinical Communication Department of [facility], Jeff Edmondson [facility], in [address] 300 [facility] [address] [place], [place] [phone] (Work) [phone] Social History Tobacco Use Types Packs/Day Years [...] appointment being requested?: Less than 14 days [place] In the past 14 days are any [...] *Reminder if sending patient for testing in [facility] or [facility], route encounter to the correct testing pool. documented in this encounter Plan of Treatment Not on filedocumented as of this encounter Visit Diagnoses Not on filedocumented in this encounter Additional Health Concerns Assessment Noted Time PHQ-9 Depression Total Score: 1 06/02/2017 9:34 AM PACKAGE DESIGNER documented as of this encounter Care Teams Plastic Panel Installer Relationship Specialty Start Date End Date Tigre Preciado P.A.-C. PCP - General Family Medicine 10/11/[address] [place] [phone] documented as of this encounter
--- OUTSIDE RECORDS SUMMARY | 2022-04-01 13:48 | XMS_ITS | Encounter Summary ---
:1945 Author Organization [facility] Address [address] [place] [address] Care Team Providers Name Role Phone Tigre Preciado P.A.-C. Primary Care Provider [phone] Reason for Visit MRI/CAT/PET Scan (Routine) - Closed Specialty Diagnoses / Procedures Referred By Contact Refer red To Contact Radiology Diagnoses Bloating Abdominal Tigre Preciado P.A.-C. [facility] Region Procedures CT Abdomen Pelvis without IV Contrast CT Abdomen Pelvis with IV Contrast CT Abdomen Pelvis without IV Contrast OR CT ABD&PELVIS W CNTRST OR CT ABD&PELVIS WO CNTRST [address] [place] [address] Referral ID Status Reason Start Date Expiration Date Visits Requ ested Visits Authorized [id number] Closed 10/18/2020 10/18/2021 1 1 Encounter Details Date Type Department Care Team Description 10/30/2020 Hospital Encounter Department of Maverick Preciado Abdominal Radiology in Debo Landeros [place], [place] 225 [facility] [address] [place] [phone] Social History Tobacco Use Types Packs/Day [...] mouth. vitamin Take 1 tablet by 0 A,C,U-lrkzvn-bqgxbpjq mouth daily. (OCUVITE W/LUTEIN) 1,000 Unit-200 mg-60 Unit-2 mg tablet albuterol 90 Inhale 2 puffs every 0 10/30/2016 03 / mcg/actuation inhaler 4 (four) hours as needed. [...] body of the report. Tigre Preciado P.A.-C. IMG CT PROCEDURES documented in this encounter Visit Diagnoses Diagnosis Bloating Abdominal documented in this encounter Additional Health Concerns Assessment Noted Time PHQ-9 Depression Total Score: 1 06/02/2017 9:34 AM HYDROGEN CELL TENDER documented as of this encounter Care Teams Chief Engineer Production Relationship Specialty Start Date End Date Tigre Preciado P.A.-C. PCP - General Family Medicine 10/11/[address] [place] [phone] documented as of this encounter
--- OUTSIDE RECORDS SUMMARY | 2022-04-01 13:48 | XMS_ITS | Encounter Summary ---
:1945 Author Organization [facility] Address [address] [place] [address] Care Team Providers Name Role Phone Adele Preciado P.A.-C. Primary Care Provider [phone] Reason for Referral Outpatient (Routine) - Closed Specialty Diagnoses / Procedures Referred By Contact Refer red To Contact Diagnoses Nausea Adele Preciado P.A.-C. [address] [phone] Referral ID Status Reason Start Date Expiration Date Visits Requ ested Visits Authorized [id number] Closed 02/12/2020 02/11/2021 1 1 Reason for Visit Reason Comments COVID Inquiry Encounter Details Date Type Department Care Team Description 02/12/2020 Clinical Communication Department of [facility] Juan Landeros [facility], in [address] 300 [facility] [address] [place], [place] [phone] (Work) [phone] Social History Tobacco Use Types Packs/Day Years [...] encounter Miscellaneous Notes Telephone Encounter - Diya Peterson L.P.NElda - 02/12/2020 11:29 AM CDT SUBJECTIVE CHIEF COMPLAINT / REASON FOR CALL COVID Inquiry PLAN The following information was provided: Notified Isadora that the resp clinic will be contacting her to set up appt Information/Education: patient/caller able to teach back The following references were used: provider Ilana Addendum Note - Adele Preciado P.A.-C. - 02/12/2020 11:25 AM CDT Addended by: ADELE PRECIADO on: 02/12/2020 11:25 AM Modules accepted: Orders Telephone Encounter - Diya Peterson L.P.N. - 02/12/2020 9:42 AM CDT I suggested that Isadora would need to go to the resp clinic in [place] and just awaiting an order if that is what you think please Telephone Encounter - Davis Villalobos Autumn - 02/12/2020 8:10 AM CDT 1. Is the patient requesting a COVID test only or other appointments? Other Appointments 2. Have you tested positive for COVID-19 in the last 30 days or do you have a pending COVID-19 test because you had symptoms? no 3. In the last 14 days have you had close contact with a lab confirmed positive case of COVID-19 (close contact is defined as a household case of COVID or being within 6 feet of a COVID-19 patient for more than 5 minutes or having direct contact with infectious secretions, e.g., being coughed on)? no 4. In the past 14 days, are any of the following symptoms new to you and not related to an existing health condition? a. Fever greater than or equal to 37.8 C (100.0 F)? no b. New symptoms (Specifically: headache, cough, shortness of breath, respiratory distress, sore throat, diarrhea, nausea, vomiting, chills and repeated shaking with chills, myalgia's (muscle aches), loss of smell, or change or loss of taste sensation)? Yes- some nausea and chills- believes it is related to the mouth sores 5. Are you having NEW trouble breathing, worsening breathing, or feeling as though you're going to collapse when you stand or sit up? no 6. Have you tested positive for COVID in the last 90 days? no Route reply to: Scheduling Contact Number: [phone] Please call patient if we should have patient do a phone visit first- no active portal to do video appt. documented in this encounter Plan of Treatment Scheduled Referrals Name Type Priority Associated Order Schedule Diagnoses Comprehensive Outpatient Referral Routine Nausea Expecte d: Respiratory Care 02/12/2020 Center Visit (Approximate), Expires: 02/11/2023 documented as of this encounter Visit Diagnoses Diagnosis Nausea - Primary documented in this encounter Additional Health Concerns Assessment Noted Time PHQ-9 Depression Total Score: 1 06/02/2017 9:34 AM INSTRUCTION ASSISTANT PRINCIPAL documented as of this encounter Care Teams Waste/Materials Exchange Specialist Relationship Specialty Start Date End Date Adele Preciado P.A.-C. PCP - General Family Medicine 10/11/19 [address] [place] [address] documented as of this encounter
--- OUTSIDE RECORDS SUMMARY | 2022-04-01 13:48 | XMS_ITS | Encounter Summary ---
:1945 Author Organization [facility] Address [address] [place] [address] Care Team Providers Name Role Phone Tigre PreciadoAElda-CElda Primary Care Provider Encounter Details Date Type Department Care Team Description 03/09/2020 Lab Department of [facility] Tigre Preciado, En counter For Screening Medicine, [facility] P.AElda-CElda For Other Viral Diseases [facility], in [address] (COVID-19) [place], [place] [address] [facility] [address] [place] [address] [phone] Social History Tobacco Use Types Packs/Day Years [...] For Re sults for this RNA, V TRADITIONAL [facility] PRACTITIONER Screening For Other procedur e are in Viral Diseases the results (COVID-19) section. documented in this encounter Results SARS Coronavirus-2 RNA, V Asymptomatic (03/09/2020 1:12 PM TRADITIONAL [facility] PRACTITIONER) [facility] gist Method Time Signature SARS-CoV-2 Swab, 03/10/2020 [facility] Specimen Nasopharynx 6:19 AM TRADITIONAL [facility] PRACTITIONER Source SARS CoV-2 Undetected Undetected 03/10/2020 [facility] RNA, TMA 6:19 AM TRADITIONAL [facility] PRACTITIONER Comment: SARS-CoV-2 RNA absent. This result does not rule out COVID-19 in the patient, as the sensitivity of the test depends o n the timing of the specimen collection and the quality of the specim en. Result should be correlated with patient's history and clinical presentat ion. ----ADDITIONAL INFORMATION---- This test is performed using the Aptima SARS-CoV-2 assay ([employer] which has received Emergency Use Authori zation (EUA) by the U.S. Food and Drug Administration. Fact sheets for this Emergency Use Autho rization (EUA) assay can be found at the following links: For Healthcare Providers: https://www.fd a.gov/media/909540/download For Patients: https://www.fda.gov/media/ 469617/download Specimen Anatomical Collection Method Collection Time Receive d Time (Source) Location / / Volume Laterality Varies 03/09/2020 1:12 PM 0 8:47 (Nasopharynx) TRADITIONAL [facility] PRACTITIONER PM TRADITIONAL [facility] PRACTITIONER Tigre Preciado P.A.-C. LAB MICROBIOLOGY - GENERAL O RDERABLES Performing Organization Address City/State/ZIP Code Phon e Number [facility]- [address] [place] [address] [place] [address] System in [place] [address] [place] [address] documented in this encounter Visit Diagnoses Diagnosis Encounter For Screening For Other Viral Diseases (COVID-19) documented in this encounter Additional Health Concerns Infection Onset Date Last Indicated Resolved Time COVID19 Pending 03/09/2020 03/09/2020 03/10/2020 6:19 AM TRADITIONAL [facility] HE[facility] PRACTITIONER Assessment Noted Time PHQ-9 Depression Total Score: 1 06/02/2017 9:34 AM TRADITIONAL [facility]I HE[facility] PRACTITIONER documented as of this encounter Care Teams Floor Representative Relationship Specialty Start Date End Date Tigre Preciado P.A.-C. PCP - General Family Medicine 10/11/19 [address] [place] [phone] documented as of this encounter
--- OUTSIDE RECORDS SUMMARY | 2022-04-01 13:48 | XMS_ITS | Encounter Summary ---
:1945 Author Organization [facility] Address [address] [place] [address] Care Team Providers Name Role Phone Tigre Preciado P.A.-C. Primary Care Provider [phone] Encounter Details Date Type Department Care Team Description 10/16/2020 Clinical Communication Department [facility], [facility] [address] [place] [address] [phone] Social History Tobacco Use Types Packs/Day Years [...] the right medication for her. Please advise [phone] documented in this encounter Plan of Treatment Not on filedocumented as of this encounter Visit Diagnoses Not on filedocumented in this encounter Additional Health Concerns Assessment Noted Time PHQ-9 Depression Total Score: 1 06/02/2017 9:34 AM PHARMACY GENERAL MANAGER documented as of this encounter Care Teams Flight Attendant Inflight Services Relationship Specialty Start Date End Date Tigre Preciado P.A.-C. PCP - General Family Medicine 10/11/19 [address] [place] [address] documented as of this encounter
--- OUTSIDE RECORDS SUMMARY | 2022-04-01 13:48 | XMS_ITS | Encounter Summary ---
:1945 Author Organization [facility] Address [address] [place] [address] Care Team Providers Name Role Phone Tigre Preciado P.A.-C. Primary Care Provider [phone] Reason for Visit Reason Comments Pre-op Exam colonoscopy on 03/[address] Amaro in [place] Appointment Request (Routine) - Closed Specialty Diagnoses / Procedures Referred By Contact Refer red To Contact Family Medicine Referral ID Status Reason Start Date Expiration Date Visits Requ ested Visits Authorized [id number] Closed 02/05/2020 02/04/2021 1 1 Encounter Details Date Type Department Care Team Description 03/04/2020 Office Visit Department of Family Tigre Preciado Pr eoperative Exam (Primary Dx); Jeff Mello P.A.-C. Polyp Colon [facility], in [address] 300 [facility] [address] [place], [place] [phone] [phone] (Work) [phone] Social History Tobacco Use Types Packs/Day Years [...] Comments Blood Pressure 138/80 03/04/2020 3:49 PM DIRECTOR OF LITIGATION Pulse 76 03/04/2020 3:49 PM DIRECTOR OF LITIGATION Temperature 36.5 ??C (97.7 ??F) 03/04/2020 3:49 PM DIRECTOR OF LITIGATION Respiratory Rate - - Oxygen Saturation 98% 03/04/2020 3:49 PM DIRECTOR OF LITIGATION Inhaled Oxygen Concentration - - Weight 57 kg (125 lb 10.6 oz) 03/04/2020 3:49 PM DIRECTOR OF LITIGATION Height 160 cm (5' 2.99) 03/04/2020 3:49 PM DIRECTOR OF LITIGATION Body Mass Index 22.27 03/04/2020 3:49 PM DIRECTOR OF LITIGATION documented in this encounter H&P Notes Tigre Preciado P.A.-C. - 03/04/2020 4:00 PM CST PREOPERATIVE HISTORY AND PHYSICAL CHIEF COMPLAINT / REASON FOR VISIT Isadora Back is a 74 y.o. female who presents for evaluation of Pre-op Exam (colonoscopy on 03/[address] Amaro in [place]). HISTORY OF PRESENT ILLNESS: Isadora comes in [...] migraine unresolved. 9 tablet 5 ??? vitamin A,C,X-yrxehn-wiyrgfsp (OCUVITE W/LUTEIN) 1,000 Unit-200 mg-60 Unit-2 mg [...] her was 25 minutes of which 15 fbgfhqt-xt-atwp coordination of care and counseling Tigre Preciado P.A.-C. CTOR OF LITIGATION documented in this encounter Plan of Treatment Not on filedocumented as of this encounter Visit Diagnoses Diagnosis Preoperative Exam - Primary Polyp Colon Personal History documented in this encounter Additional Health Concerns Assessment Noted Time PHQ-9 Depression Total Score: 1 06/02/2017 9:34 AM DIRECTOR OF LITIGATION documented as of this encounter Care Teams Photocopying Machine Operator Relationship Specialty Start Date End Date Tigre Preciado P.A.-C. PCP - General Family Medicine 10/11/19 [address] [place] [address] documented as of this encounter
--- OUTSIDE RECORDS SUMMARY | 2022-04-01 13:48 | XMS_ITS | Encounter Summary ---
:1945 Author Organization [facility] Address [address] [place] [address] Care Team Providers Name Role Phone Tigre Preciado P.A.-C. Primary Care Provider [phone] Reason for Visit Reason Comments Form Review PT POC Encounter Details Date Type Department Care Team Description 08/09/2020 Clinical Communication Department of Ilana, Grant Review (PT Family MedicineTigre, POC) [facility] [address] 300 [facility] [address] [place], [place] [phone] (Work) [phone] Social History Tobacco Use Types Packs/Day Years [...] Carie Naranjo - 08/09/2020 10:36 AM CDT PC[facility]: [facility] PHONE NUMBER: [phone] INFO REQUESTED: POC 08/06/20 INSTRUCTIONS: Fax to: [phone] Requested information was emailed/faxed to Tigre Preciado for review/signature electronically. documented in this encounter Plan of Treatment Not on filedocumented as of this encounter Visit Diagnoses Not on filedocumented in this encounter Additional Health Concerns Assessment Noted Time PHQ-9 Depression Total Score: 1 06/02/2017 9:34 AM INTEGRATION DIRECTOR documented as of this encounter Care Teams Supervisor Properties Relationship Specialty Start Date End Date Tigre Preciado P.A.-C. PCP - General Family Medicine 10/11/[address] [place] [phone] documented as of this encounter
--- OUTSIDE RECORDS SUMMARY | 2022-04-01 13:48 | XMS_ITS | Encounter Summary ---
:1945 Author Organization [facility] Address [address] [place] [address] Care Team Providers Name Role Phone Tigre Preciado P.A.-C. Primary Care Provider [phone] Reason for Visit Reason Comments Diverticulitis Encounter Details Date Type Department Care Team Description 10/15/2020 Nurse Triage Department of [facility] Claudia Tovar D iverticulitis Medicine, [facility] [address] [place] [address] Social History Tobacco Use [...] Screening ASSESSMENT Region Select appropriate region: : [place] Age Pathway Select approprite pathway: : Adult [...] care: Yes The following references were used: [facility] novel coronavirus (COVID- 19) resources Telephone Encounter [...] 48 hours Protocols used: ABDOMINAL PAIN - [id number] Care Advice Patient/Caregiver understands and will follow care advice?: Yes, able to teach back SEE PCP WITHIN 24 HOURS: * IF OFFICE WILL BE OPEN: You need to be seen within the next 24 hours. Call your doctor (or RN BEHAVIORAL HEALTH/PA) when the office opens and make an [...] the next 24 hours. Your doctor (or RN BEHAVIORAL HEALTH/PA) will want to talk with you to [...] Depression Total Score: 1 06/02/2017 9:34 AM DIGITAL SPECIALIST documented as of this encounter Care Teams Supervisor [employer] Relationship Specialty Start Date End Date Tigre Preciado P.A.-C. PCP - General Family Medicine 10/11/19 [address] [place] [address] documented as of this encounter
--- OUTSIDE RECORDS SUMMARY | 2022-04-01 13:48 | XMS_ITS | Encounter Summary ---
:1945 Author Organization [facility] Address [address] [place] [address] Care Team Providers Name Role Phone Tigre Preciado P.A.-C. Primary Care Provider [phone] Reason for Visit Reason Comments Colonoscopy Encounter Details Date Type Department Care Team Description 03/12/2020 Nurse Triage Department of [facility] Adal Aldridge, RMigel Colonoscopy Medicine, [facility], [address] [place], [place] [address] [facility] [place] [address] [place] [address] [phone] Social History Tobacco Use Types Packs/Day Years [...] questions about Protocols used: COLONOSCOPY SYMPTOMS AND GALRBJXMR-IAANP-LT Care Advice Patient/Caregiver understands and will follow [...] or drops (such as Crystal Light or [place]) to improve the taste. CAUTION: Do not [...] questions or concerns * You become worse. ITY SUPERVISOR documented in this encounter Plan of Treatment Not on filedocumented as of this encounter Visit Diagnoses Not on filedocumented in this encounter Additional Health Concerns Assessment Noted Time PHQ-9 Depression Total Score: 1 06/02/2017 9:34 AM QUALITY SUPERVISOR documented as of this encounter Care Teams Brick Veneer Maker Relationship Specialty Start Date End Date Tigre Preciado P.A.-C. PCP - General Family Medicine 10/11/19 [address] [place] [address] documented as of this encounter
--- OUTSIDE RECORDS SUMMARY | 2022-04-01 13:48 | XMS_ITS | Encounter Summary ---
:1945 Author Organization [facility] Address [address] [place] [address] Care Team Providers Name Role Phone Tigre Preciado P.A.-C. Primary Care Provider [phone] Reason for Visit Reason Comments Results Encounter Details Date Type Department Care Team Description 10/18/2020 Clinical Communication Department of [facility] Tigre Preciado, [facility] Medicine, [place] [facility], in [address] [address] [place], [place] [phone] [address] (Work) [phone] Social History Tobacco Use Types Packs/Day Years [...] of the following ? Result Notes Awilda Lveine CCMA 10/18/2020 ??1:21 PM CDT Back to [...] of the following Tigre Preciado P.A.-C. [facility] Fbfb Nurse Cc: Noel Veliz Fbfb Scheduling [...] Depression Total Score: 1 06/02/2017 9:34 AM SHINGLE CATCHER documented as of this encounter Care Teams Media Assistant Relationship Specialty Start Date End Date Tigre Preciado P.A.-C. PCP - General Family Medicine 10/11/19 [address] [place] [address] documented as of this encounter
--- OUTSIDE RECORDS SUMMARY | 2022-04-01 13:48 | XMS_ITS | Encounter Summary ---
:1945 Author Organization [facility] Address [address] [place] [address] Care Team Providers Name Role Phone Tigre Preciado P.A.-C. Primary Care Provider [phone] Encounter Details Date Type Department Care Team Description 03/18/2020 Clinical Communication Department of Milo Chicas, Surgery in [facility] [address] [place] [phone] Social History Tobacco Use Types Packs/Day Years [...] Claudia Mensah L.P.N. - 03/20/2020 4:01 PM YOUTH CAREER SPECIALIST Patient is aware HM and reminders updated H CAREER SPECIALIST Telephone Encounter - Duncan Amaro M.D. - 03/18/2020 10:00 PM CST This patient recently underwent colonoscopy. Preoperative diagnosis: History of colon polyps 5 years ago. 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 One tubular and one serrated polyp were 10 mm in size. The others were smaller. Prep Given: Two day prep. Slick Bowel Prep Score: 9 (Excellent bowel preparation on the second day) Recommendations for timing of next scheduled colonoscopy: 3 years Recommendations for bowel preparation for next colonoscopy: Two day prep Electronically signed by: Duncan Amaro M.D. 03/18/20 10:02 PM YOUTH CAREER SPECIALIST H CAREER SPECIALIST documented in this encounter Plan of Treatment Not on filedocumented as of this encounter Visit Diagnoses Not on filedocumented in this encounter Additional Health Concerns Assessment Noted Time PHQ-9 Depression Total Score: 1 06/02/2017 9:34 AM YOUTH CAREER SPECIALIST documented as of this encounter Care Teams Registered Sales Assistant Relationship Specialty Start Date End Date Tigre Preciado P.A.-C. PCP - General Family Medicine 10/11/19 [address] [place] [address] documented as of this encounter
--- OUTSIDE RECORDS SUMMARY | 2022-04-01 13:48 | XMS_ITS | Encounter Summary ---
:1945 Author Organization [facility] Address [address] [place] [address] Care Team Providers Name Role Phone Tigre Preciado P.A.-C. Primary Care Provider [phone] Reason for Visit Reason Comments Bladder Prolapse Outpatient (Routine) - Closed Specialty Diagnoses / Procedures Referred By Contact Refer red To Contact Obstetrics and Diagnoses Cystocele Tigre Preciado [facility] Gynecology P.AElda-C. [address] [place] [address] Referral ID Status Reason Start Date Expiration Date Visits Requ ested Visits Authorized [id number] Closed 11/13/2019 11/12/2020 1 1 Encounter Details Date Type Department Care Team Description 11/30/2019 Comprehensive Visit Department of Nivia Trujillo (Primary Dx); Obstetrics and J, LOOP TENDER, C.N.P. Pap Smear Examination; Gynecology in [address] [facility] [phone] [place] [address] [place], [place] (Work) [phone] Social History Tobacco Use [...] mouth. States that she has tried an vilr-mwj-ydbuxvr antibiotic cream, a Lotrimin cream, and a [...] masses or tenderness. Rectovaginal confirms bimanual exam. Help Desk Rep: Help Desk Rep for pelvic exam or qualifying procedure: Iman Hackett L.P.N. DIAGNOSTICS Thin prep Pap smear obtained and pending. ASSESSMENT / PLAN #1 Cystocele Overview: Grade 2-3 cystocele present. Prefers to manage with referral to [facility] and accupuncture at this time. Assessment & Plan: Referral to Chase GONZALEZ was completed in faxed. 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 We also discussed management options with vaginal [...] will continue to work with her current raw hide trimmer. We also discussed management options with vaginal [...] 3:29 PM 0 6:58 CDT AM CDT Nivia Trujillo APRN, C.N.P. LAB MICROBIOLOGY - GENE [facility] ORDERABLES Performing Organization Address City/State/ZIP Code Phon e Number [facility]- [facility] [place] [address] [place] [address] System in [place] [address] [place] [address] ThinPrep w/HPV Co-Test Screen (11/30/2019 3:29 PM CDT) Component Value Ref Test Analysis Performed Pathologis t Range Method Time At Signature 12/04/2019 [facility] 2:01 PM CDT Report RHONA Grullon(ASCP) 12/04/2019 [facility] electronically I verify that I have examined all relevant slides/ma terials 2:01 PM signed by for the specimen(s) and rendered or confirmed the diagnosis. CDT Gross Description Received specimen 12/04/2019 [facility] in a ThinPrep 2:01 PM vial. CDT Pap Test Source Cervical/Endocervi 12/04/2019 [facility] rocio 2:01 PM CDT Clinical History screen 12/04/2019 [facility] 2:01 PM CDT Menstrual pm 12/04/2019 [facility] Status(LMP, PM, 2:01 PM ) CDT Hormone [...] an attachment that is no t available. Nivia Trujillo APRN, C.N.P. LAB PAP PATHDX ORDERABL ES Performing Organization Address City/State/ZIP Code Phon e Number [facility]- [address] [place] [address] [facility] Cytology [address] [facility] documented in this encounter Visit Diagnoses Diagnosis Cystocele - Primary Pap Smear Examination Cheilitis Angular documented in this encounter Additional Health Concerns Assessment Noted Time PHQ-9 Depression Total Score: 1 06/02/2017 9:34 AM CIGARETTE CATCHER documented as of this encounter Care Teams Assorter Relationship Specialty Start Date End Date Tigre Preciado P.A.-C. PCP - General Family Medicine 10/11/19 [address] [place] [address] documented as of this encounter
--- OUTSIDE RECORDS SUMMARY | 2022-04-01 13:48 | XMS_ITS | Encounter Summary ---
:1945 Author Organization [facility] Address [address] [place] [address] Care Team Providers Name Role Phone Tigre Preciado P.A.-C. Primary Care Provider [phone] Reason for Visit Reason Comments Pre-op Exam froman 01/19/20 colonoscopy sore on face Appointment Request (Routine) - Closed Specialty Diagnoses / Procedures Referred By Contact Refer red To Contact Family Medicine Tigre Preciado P. A.-C. [address] [place] [address] Referral ID Status Reason Start Date Expiration Date Visits Requ ested Visits Authorized [id number] Closed 11/13/2019 11/12/2020 1 1 Encounter Details Date Type Department Care Team Description 01/12/2020 Office Visit Department of Family Tigre Preciado Po lyfrancesco Colon Personal History (Primary Dx); Jeff Mello P.A.-C. Screening Cancer Colon; Clinic, in [address] [facility] [address] [place], [place] [phone] [address] (Work) [phone] Social History Tobacco Use Types Packs/Day Years [...] migraine unresolved. 9 tablet 5 ??? vitamin A,C,D-igoptv-jdwlykmv (OCUVITE W/LUTEIN) 1,000 Unit-200 mg-60 Unit-2 mg [...] Sulfa (Sulfonamide Antibiotics) Nausea Only VITALS: Vitals: 09/25/20 1006 01/12/20 1010 01/12/20 1058 BP: 151/68 [...] Depression Total Score: 1 06/02/2017 9:34 AM CREDIT RESOLUTION REPRESENTATIVE documented as of this encounter Care Teams Tow Truck Dispatcher Relationship Specialty Start Date End Date Tigre Preciado P.A.-C. PCP - General Family Medicine 10/11/19 [address] [place] [address] documented as of this encounter
--- OUTSIDE RECORDS SUMMARY | 2022-04-01 13:48 | XMS_ITS | Encounter Summary ---
:1945 Author Organization [facility] Address [address] [place] [address] Care Team Providers Name Role Phone Tigre Preciado P.A.-C. Primary Care Provider [phone] Encounter Details Date Type Department Care Team Description 02/21/2020 Clinical Communication Department of [facility], Jeff Edmondson [facility], in [address] [address] [place], [place] [phone] [address] (Work) [phone] Social History Tobacco Use Types Packs/Day Years [...] COVID19 Pending 03/09/2020 03/09/2020 03/10/2020 6:19 AM SOFTWARE VALIDATION ENGINEER Assessment Noted Time PHQ-9 Depression Total Score: 1 06/02/2017 9:34 AM SOFTWARE VALIDATION ENGINEER documented as of this encounter Care Teams Hoistman Relationship Specialty Start Date End Date Tigre Preciado P.A.-C. PCP - General Family Medicine 10/11/19 [address] [place] [address] documented as of this encounter
--- OUTSIDE RECORDS SUMMARY | 2022-04-01 13:48 | XMS_ITS | Encounter Summary ---
:1945 Author Organization [facility] Address [address] [place] [address] Care Team Providers Name Role Phone Tigre Preciado P.A.-C. Primary Care Provider [phone] Reason for Visit Reason Comments Colonoscopy Date Encounter Details Date Type Department Care Team Description 02/07/2020 Clinical Communication Department of Duncan Amaro onoscopy Date General Surgery in [place], [place] [address] [place] [address] Social History Tobacco Use [...] Miscellaneous Notes Telephone Encounter - Krysta Banda L.P.N. - 02/07/2020 11:34 AM CDT Noted. 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 PCP - General Family Medicine 10/11/19 [address] [place] [address] documented as of this encounter
--- OUTSIDE RECORDS SUMMARY | 2022-04-01 13:48 | XMS_ITS | Encounter Summary ---
:1945 Author Organization [facility] Address [address] [place] [address] Care Team Providers Name Role Phone Tigre Preciado P.A.-C. 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 ??? vitamin A,C,L-ztmgil-loqbmzsh (OCUVITE W/LUTEIN) 1,000 Unit-200 mg-60 Unit-2 mg [...] Depression Total Score: 1 06/02/2017 9:34 AM LONG WALL SHEAR OPERATOR documented as of this encounter Care Teams Certified Cytotechnologist Relationship Specialty Start Date End Date Tigre Preciado P.A.-C. PCP - General Family Medicine 10/11/[address] [place] [address] documented as of this encounter
--- OUTSIDE RECORDS SUMMARY | 2022-04-01 13:48 | XMS_ITS | Encounter Summary ---
:1945 Author Organization [facility] Address [address] [place] [address] Care Team Providers Name Role Phone Tigre Preciado P.A.-C. Primary Care Provider [phone] Encounter Details Date Type Department Care Team Description 01/16/2020 Hospital Encounter Department of Dorita Preciado For Laboratory Medicine Juan Landeros Screening For Other in [address] Viral Diseases [place], [place] (COVID-19) [address] [address] [facility] [place] [phone] [address] (Work) [phone] Social History Tobacco Use Types Packs/Day Years [...] mouth. vitamin Take 1 tablet by 0 A,C,R-vsudrb-xcsseyby mouth daily. (OCUVITE W/LUTEIN) 1,000 Unit-200 mg-60 [...] RNA, V Asymptomatic (01/16/2020 1:19 PM CDT) [facility] Method Time Signature SARS-CoV-2 Swab, 01/17/2020 [...] is performed using the Aptima SARS-CoV-2 assay ([employer] which has received Emergency Use Authori zation (EUA) by the U.S. Food and Drug Administration. Fact sheets for this Emergency Use Autho rization (EUA) assay can be found at the following links: For Healthcare Providers: https://www.fd a.gov/media/918073/download For Patients: https://www.fda.gov/media/ 165450/download Specimen Anatomical Collection Method Collection Time Receive d Time (Source) Location / / Volume Laterality Varies 01/16/2020 1:19 PM 0 7:36 (Nasopharynx) CDT PM CDT Tigre Preciado P.A.-C. LAB MICROBIOLOGY - GENERAL O RDERABLES Performing Organization Address City/State/ZIP Code Phon e Number [facility]- [address] [place] [address] [place] [address] [address] SARS-CoV-2 Total Antibody, Serum (01/16/2020 12:59 PM CDT) [facility] Method Time Signature SARS-CoV-2 Negative Negative 01/16/2020 [facility] Nucleocapsid 7:59 PM CDT Total Ab, [...] was performed using the [employer] Qvhy-LFYE-BvZ-2 Reagent assay from [employer], which has received Emergency Use Authori zation(EUA) by the U.S. Food and Drug Administration . Fact sheets for this Emergency Use Autho rization (EUA) assay can be found at the following link s: For Healthcare Providers: https://www.fda.gov/media/628289/downloa d For Patients: https://www.fda.gov/media/439378/downloa d Specimen Anatomical Collection Method Collection Time Receive d Time (Source) Location / / Volume Laterality Blood (Blood, 01/16/2020 12:59 01/16/2020 7:31 Venous) PM CDT PM CDT Tigre Preciado P.A.-C. LAB MICROBIOLOGY - BLOOD ORD [facility] Organization Address City/State/ZIP Code Phon e Number [facility]- [address] [place] [address] [place] [address] System [address] documented in this encounter Visit Diagnoses Diagnosis Encounter For Screening For Other Viral Diseases (COVID-19) documented in this encounter Additional Health Concerns Infection Onset Date Last Indicated Resolved Time COVID19 Pending 01/16/2020 01/16/2020 01/17/2020 2:22 AM CDT Assessment Noted Time PHQ-9 Depression Total Score: 1 06/02/2017 9:34 AM MANAGER OF CORPORATE documented as of this encounter Care Teams Gas Plant Dispatcher Relationship Specialty Start Date End Date Roethler, Tigre, P.A.-C. PCP - General Family Medicine 10/11/19 [address] [facility] [place] [address] documented as of this encounter
--- OUTSIDE RECORDS SUMMARY | 2022-04-01 13:48 | XMS_ITS | Encounter Summary ---
:1945 Author Organization [facility] Address [address] [place] [address] Care Team Providers Name Role Phone Tigre Preciado P.A.-C. Primary Care Provider [phone] Reason for Visit Reason Comments Colonoscopy Date Encounter Details Date Type Department Care Team Description 11/13/2019 Clinical Communication Department of Gal Stout lonoscopy Date General Surgery in [place], [place] [address] [place] [phone] Social History Tobacco Use [...] Total Score: 1 06/02/2017 9:34 AM MANAGER EXCHANGE documented as of this encounter Care Teams Logistics Intern Relationship Specialty Start Date End Date Tigre Preciado P.A.-C. PCP - General Family Medicine 10/11/19 [address] [place] [address] documented as of this encounter
--- OUTSIDE RECORDS SUMMARY | 2022-04-01 13:49 | XMS_ITS | Encounter Summary ---
:1945 Author Organization [facility] Address [address] [place] [address] Care Team Providers Name Role Phone Tigre Preciado P.A.-C. Primary Care Provider [phone] Reason for Referral Outpatient (Routine) - Closed Specialty Diagnoses / Procedures Referred By Contact Refer red To Contact Diagnoses Shortness Of Breath Fatigue Mitch Trivedi [facility] Region Procedures ECG 12 Lead P.A.Chery., P.A. [address] [phone] Referral ID Status Reason Start Date Expiration Date Visits Requ ested Visits Authorized [id number] Closed 10/12/2019 10/11/2020 1 1 Reason for Visit Reason Comments Shortness of Breath x 2-3 days - had a spell lik e this a few weeks ago Fatigue Outpatient (Routine) - Closed Specialty Diagnoses / Procedures Referred By Contact Refer red To Contact Diagnoses Shortness Of Breath Fatigue Cough Unspecified Type Nikkie Singletary APRN, [facility] [place] Region C.N.P. [address] [place] [phone] Referral ID Status Reason Start Date Expiration Date Visits Requ ested Visits Authorized [id number] Closed 10/11/2019 10/10/2020 1 1 Encounter Details Date Type Department Care Team Description 10/12/2019 Office Visit Urgent Care in Nikkie Singletary APRN, CEldaN.P. [address] [place] [address] Elevated Blood Pressure (Primary Dx); [place], [place] Mitch Trivedi P.A.-C., P.A. [address] [place] [address] Shortness Of Breath; [address] Fatigue; [place], [place] Cough [phone] Social History Tobacco Use Types Packs/Day Years [...] in this encounter Progress Notes Mitch Trivedi P.A.-Tae, P.AElda - 10/12/2019 2:30 PM CDT SUBJECTIVE CHIEF [...] Negative pH 6.5 5.0 - 8.0 Specific [place] 1.005 1.001 - 1.035 Urobilinogen 0.2 0.2 [...] Ref Range Ventricular Rate ECG/Min 75 BPM MS Interval 154 ms QRSD Interval 90 ms QT Interval 388 ms QTC Interval 433 ms P [place] 48 degrees R [place] 14 degrees T Wave [place] 23 degrees IMPRESSION: Normal sinus rhythm Nonspecific [...] are in INDICATED, U the results section. MS URINALYSIS AUTO WO STAT 10/12/2019 2:58 PM Results for this MICRO CDT procedure are i n the results section. documented in this encounter Results Tick-Borne Ab Panel (10/12/2019 3:47 PM CDT) P athologist Signature Lyme Disease Negative Negative 10/13/2019 [facility] Serology, S 3:06 PM CDT Comment: No [...] <1:64 <1:64 titer 10/13/2019 3:22 PM CDT [facility] Comment: ----ADDITIONAL INFORMATION---- This test was developed using an analyte specific reagent. Its performance characteristics were determined by [facility] in a manner consistent with CLIA requirements. This test has not bee n cleared or approved by the U.S. Food and Drug Administration. Ehrlichia Chaffeensis (HME) Ab, IgG <1:64 <1:64 titer 10/13/2019 3:21 PM CDT [facility] Comment: ----ADDITIONAL INFORMATION---- This test was developed using an analyte specific reagent. Its performance characteristics were determined by [facility] in a manner consistent with CLIA requirements. This test has not bee n cleared or approved by the U.S. Food and Drug Administration. Babesia microti IgG Ab, S <1:64 <1:64 titer 10/13/2019 3 :20 PM CDT [facility] Comment: ----ADDITIONAL INFORMATION---- This test was developed using an analyte specific reagent. Its performance characteristics were determined by [facility] in a manner consistent with CLIA requirements. This test has not bee n cleared or approved by the U.S. Food and Drug Administration. Specimen Anatomical Collection Method Collection Time Receive d Time (Source) Location / / Volume Laterality Blood (Blood, 10/12/2019 3:47 PM 10/13/19 20 7:08 Venous) CDT AM CDT Mitch Trivedi P.A.-C., P.A. LAB MICROBIOLOGY - BL OOD ORDERABLES Performing Organization Address City/State/ZIP Code Phon e Number [facility] [address] [place] [address] [place] [address] [place] [address] Laboratory Medicine and Pathology [address] [...] CDT eGFR-Black/Afri 81 >=60 10/12/2019 [place] can Vietnamese mL/min/BSA 4:33 PM CDT Comment: ----ADDITIONAL INFORMATION---- [...] Organization Address City/State/ZIP Code Phon e Number [facility] [address] [place] [address] [facility] [place] [address] System in [place] [address] (ABNORMAL) CBC with Differential, Blood (10/12/2019 3:47 PM CDT) [facility] gist Method Time Signature Hemoglobin 13.9 11.6 [...] Organization Address City/State/ZIP Code Phon e Number [facility]- [address] [place] [address] [facility] [place] [address] System in [place] [address] DX Chest 1 View [...] Signature Ventricular Rate 75 BPM MUSE ECG/Min MS Interval 154 ms MUSE QRSD Interval 90 ms MUSE QT Interval 388 ms MUSE QTC Interval 433 ms MUSE P [place] 48 degrees MUSE R [place] 14 degrees MUSE T Wave [place] 23 degrees MUSE Specimen Anatomical Collection Method [...] Organization Address City/State/ZIP Code Phon e Number [facility]- [address] [place] [address] [place] [address] System in [place] [address] (ABNORMAL) Urinalysis with Microscopic if Indicated (10/12/2019 [...] 8.0 10/12/2019 4:10 PM CDT [place] Specific [place] 1.005 1.001 - 1.035 10/12/2019 4:10 PM CDT [facility] Urobilinogen 0.2 0.2 - 1.0 10/12/2019 4:10 PM CDT [place] Specimen Anatomical Collection Method Collection Time Receive d Time (Source) Location / / Volume Laterality Urine (Urine, 10/12/2019 2:58 PM 10/12/19 20 4:03 Clean Catch) CDT PM CDT Mitch Trivedi P.A.-C., P.A. LAB URINE ORDERABLES Performing Organization Address City/State/ZIP Code Phon e Number [facility]- [address] [place] [address] [place] [address] System in [place] [address] [facility] documented in this encounter Visit Diagnoses Diagnosis Elevated Blood Pressure - Primary Shortness Of Breath Fatigue Cough Unspecified Type Shortness Of Breath Fatigue Cough Unspecified Type documented in this encounter Additional Health Concerns Assessment Noted Time PHQ-9 Depression Total Score: 1 06/02/2017 9:34 AM ASSEMBLER SEMICONDUCTOR documented as of this encounter Care Teams Piano Regulator Inspector Relationship Specialty Start Date End Date Tigre Preciado P.A.-C. PCP - General Family Medicine 10/11/[address] [place] [phone] documented as of this encounter
--- OUTSIDE RECORDS SUMMARY | 2022-04-01 13:49 | XMS_ITS | Encounter Summary ---
:1945 Author Organization [facility] Address [address] [place] [address] Care Team Providers Name Role Phone Tigre Preciado P.A.-C. Primary Care Provider [phone] Reason for Referral Outpatient (Routine) - Closed Specialty Diagnoses / Procedures Referred By Contact Refer red To Contact Family Medicine Tigre Preciado P. A.-C. [facility] Region [address] [place] [phone] Referral ID Status Reason Start Date Expiration Date Visits Requ ested Visits Authorized [id number] Closed 11/13/2019 11/12/2020 1 1 Outpatient (Routine) - Closed Specialty Diagnoses / Procedures Referred By Contact Refer red To Contact Diagnoses Screening Mammogram Breast Cancer Tigre Preciado P.A.-C. [facility] Procedures BI Breast Screening Bilateral [address] [place] [phone] Referral ID Status Reason Start Date Expiration Date Visits Requ ested Visits Authorized [id number] Closed 11/13/2019 11/12/2020 1 1 Physical Therapy (Routine) - Closed Specialty Diagnoses / Procedures Referred By Contact Refer red To Contact Diagnoses Pain Neck Tigre Preciado P.A.-C. [address] [place] [phone] Referral ID Status Reason Start Date Expiration Date Visits V isits Requested Authorized Closed Service not 11/13/2019 11/12/2020 1 1 available in [facility] Outpatient (Routine) - Closed Specialty Diagnoses / Procedures Referred By Contact Refer red To Contact Obstetrics and Diagnoses Cystocele Tigre Preciado [facility] [place] [address] [place] [phone] Referral ID Status Reason Start Date Expiration Date Visits Requ ested Visits Authorized [id number] Closed 11/13/2019 11/12/2020 1 1 Reason for Visit Reason Comments Annual Exam labs completed on 11/08/2019 Appointment Request (Routine) - Closed Specialty Diagnoses / Procedures Referred By Contact Refer red To Contact Family Medicine Referral ID Status Reason Start Date Expiration Date Visits Requ ested Visits Authorized [id number] Closed 10/13/2019 10/12/2020 1 1 Encounter Details Date Type Department Care Team Description 11/13/2019 Comprehensive Visit Department of Claudia Preciado Personal History (Primary Dx); Family MedicineTigre P.A.-C. Asthma (HCC); [facility], [address] [place] [address] Anxiety; in [place], [place] Osteoporosis; [place] [address] Neuropathy Peripheral; [address] [phone] General Medical Examination Adult; [place], [place] (Work) Cystocele; [phone] Hyponatremia; Pain Neck; [...] documented in this encounter H&P Notes Tigre rPeciado P.A.-C. - 11/13/2019 1:00 PM CDT CHIEF [...] W/ OR W/O BIOPSY 11/10/[address] Eirc Cabrera who recommended repeat in 5 years. [...] migraine unresolved. 9 tablet 5 ??? vitamin A,C,U-uwctlv-qmqdgwcb (OCUVITE W/LUTEIN) 1,000 Unit-200 mg-60 Unit-2 mg [...] was 40 minutes of which 30 was jqje-cl-bsvq coordination of care and counseling Tigre Preciado [...] BILATERAL Current study was evaluated with a Sliced Applesu ter Aided Detection (CAD) system. 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 PCP - General Family Medicine 10/11/19 [address] [place] [phone] documented as of this encounter
--- OUTSIDE RECORDS SUMMARY | 2022-04-01 13:49 | XMS_ITS | Encounter Summary ---
:1945 Author Organization [facility] Address [address] [place] [address] Care Team Providers Name Role Phone Tigre Preciado P.A.-C. Primary Care Provider Encounter Details Date Type Department Care Team Description 10/13/2019 Clinical Communication Department of [facility], Jeff Edmondson [facility], in [address] [address] [place], [place] [phone] [phone] (Work) [phone] Social History Tobacco Use Types Packs/Day Years [...] encounter Miscellaneous Notes Telephone Encounter - Soniya Martinez, LEldaP.N. - 10/16/2019 11:41 AM CDT SUBJECTIVE CHIEF COMPLAINT / REASON FOR CALL No chief complaint on file. PLAN The following information was provided: Patient notified of the information as indicated. Call connected with automatic riveting machine operator to set up lab only appointment Information/Education: [...] supplements. ??If the result [facility] not [facility], repeat testing after patient refrains fr om the use of supplements for at least 12 hours. Specimen Anatomical Collection Method Collection Time Receive d Time (Source) Location / / Volume Laterality Blood (Blood, 11/08/2019 9:24 AM 11/08/19 20 Venous) CDT 10:26 AM CDT Tigre Preciado P.A.-C. LAB BLOOD ADD-ON Performing Organization Address City/State/ZIP Code Phon e Number [facility]- [address] [place] [address] [facility] [place] [address] System in [place] [address] (ABNORMAL) Lipid Panel (11/08/2019 9:24 AM CDT) [...] Organization Address City/State/ZIP Code Phon e Number [facility]- [address] [place] [address] [place] [address] System in [place] [address] (ABNORMAL) Basic Metabolic Panel [...] CDT eGFR-Black/Afri 79 >=60 11/08/2019 [place] can [place] mL/min/BSA 4:18 PM CDT Comment: ----ADDITIONAL INFORMATION---- [...] Organization Address City/State/ZIP Code Phon e Number [facility]- [address] [place] [address] [facility] [place] [address] System in [place] [address] documented in this encounter Visit Diagnoses Diagnosis Screening Examination Diabetes Mellitus - Primary Encounter For Screening For Cardiovascul ar Disorders Screening Examination For Thyroid Disord er documented in this encounter Additional Health Concerns Assessment Noted Time PHQ-9 Depression Total Score: 1 06/02/2017 9:34 AM SUPPLEMENTAL MANAGER documented as of this encounter Care Teams Senior Office Support Assistant Sosa Relationship Specialty Start Date End Date Tigre Preciado P.A.-C. PCP - General Family Medicine 10/11/[address] [place] [phone] documented as of this encounter
--- OUTSIDE RECORDS SUMMARY | 2022-04-01 13:49 | XMS_ITS | Encounter Summary ---
:1945 Author Organization [facility] Address [address] [place] [address] Care Team Providers Name Role Phone Tigre Preciado P.A.-C. Primary Care Provider [phone] Reason for Visit Reason Onset Date Comments Outpatient COVID-19 Testing Outpatient COVID-19 Testing 10/11/2019 Encounter Details Date Type Department Care Team Description 10/11/2019 External Outreach Department of Sree Posadas Infect ion [facility] Internal Medicine in J, D.O. Respiratory (Primary [place], [place] [address] Dx) [address] [place] [phone] Social History Tobacco Use [...] RNA, V Symptomatic (10/11/2019 2:24 PM CDT) [facility] Method Time Signature SARS-CoV-2 Swab, 10/12/2019 MKTO [...] is performed using the Aptima SARS-CoV-2 assay ([employer] which has received Emergency Use Authori zation (EUA) by the U.S. Food and Drug Administration. Fact sheets for this Emergency Use Autho rization (EUA) assay can be found at the following links: For Healthcare Providers: https://www.fd a.gov/media/193621/download For Patients: https://www.fda.gov/media/ 782898/download Specimen Anatomical Collection Method Collection Time Receive d Time (Source) Location / / Volume Laterality Varies 10/11/2019 2:24 PM 0 7:10 (Nasopharynx) CDT PM CDT Sree Posadas D.O. 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 PCP - General Family Medicine 10/11/[address] [place] [phone] documented as of this encounter
--- OUTSIDE RECORDS SUMMARY | 2022-04-01 13:49 | XMS_ITS | Encounter Summary ---
:1945 Author Organization [facility] Address [address] [place] [address] Care Team Providers Name Role Phone Tigre Preciado P.A.-C. Primary Care Provider [phone] Encounter Details Date Type Department Care Team Description 10/12/2019 Hospital Encounter Department of [place], Shortnes s Of Breath; Radiology in [facility], Fatigue; [place], [place] Debo, P.A. Cough [address] [facility] [place] [phone] Social History Tobacco Use Types Packs/Day Years [...] mouth. vitamin Take 1 tablet by 0 A,C,Q-vdssfy-dqbuhgym mouth daily. (OCUVITE W/LUTEIN) 1,000 Unit-200 mg-60 [...] Depression Total Score: 1 06/02/2017 9:34 AM PROPERTY ASSISTANT documented as of this encounter Care Teams Lieutenant Colonel Relationship Specialty Start Date End Date Tigre Preciado P.A.-C. PCP - General Family Medicine 10/11/[address] [place] [phone] documented as of this encounter
--- OUTSIDE RECORDS SUMMARY | 2022-04-01 13:49 | XMS_ITS | Encounter Summary ---
:1945 Author Organization [facility] Address [address] [place] [address] Care Team Providers Name Role Phone Tigre Preciado P.A.-C. Primary Care Provider [phone] Encounter Details Date Type Department Care Team Description 10/16/2019 Clinical Communication Department [facility], Jeff Ed[facility], in [address] [address] [place], [place] [phone] (Work) [phone] Social History Tobacco Use Types Packs/Day Years [...] - 10/16/2019 11:44 AM CDT ([facility] and [facility] locations only: If the patient is not having symptoms and is requesting COVID-19 Nasal Swab testing only, use the process listed in the COVID-19 Patient Requesting COVID PCR Test OTG COVID-19 [place] Patient Requesting COVID PCR Test). In the past 30 days have you had a swab for COVID that tested positive? 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 PCP - General Family Medicine 10/11/19 [address] [place] [phone] documented as of this encounter
--- OUTSIDE RECORDS SUMMARY | 2022-04-01 13:49 | XMS_ITS | Encounter Summary ---
:1945 Author Organization [facility] Address [address] [place] [address] Care Team Providers Name Role Phone Tigre Preciado P.A.-C. 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 PCP - General Family Medicine 10/11/19 [address] [place] [address] documented as of this encounter
--- OUTSIDE RECORDS SUMMARY | 2022-04-01 13:49 | XMS_ITS | Encounter Summary ---
:1945 Author Organization [facility] Address [address] [place] [address] Care Team Providers Name Role Phone Tigre Preciado P.A.-C. Primary Care Provider [phone] Reason for Referral Outpatient (Routine) - Closed Specialty Diagnoses / Procedures Referred By Contact Refer red To Contact Diagnoses Shortness Of Breath Fatigue Cough Unspecified Type Nikkie Singletary APRN, [facility] C.N.P. [address] [place] [address] Referral ID Status Reason Start Date Expiration Date Visits Requ ested Visits Authorized [id number] Closed 10/11/2019 10/10/2020 1 1 Encounter Details Date Type Department Care Team Description 10/11/2019 Orders Only Department of Family Nikkie Singletary Sho rtness Of Breath (Primary Dx); Medicine, [place], C.N.P. Fatigue; Clinic, in [place], [address] [place], [place] 300 [facility] [address] [place], [place] [phone] (Work) [phone] Social History Tobacco Use Types Packs/Day Years [...] Depression Total Score: 1 06/02/2017 9:34 AM HORSE RACETRACK MANAGER documented as of this encounter Care Teams Fun House Attendant Relationship Specialty Start Date End Date Tigre Preciado P.A.-C. PCP - General Family Medicine 10/11/19 [address] [place] [phone] documented as of this encounter
--- OUTSIDE RECORDS SUMMARY | 2022-04-01 13:49 | XMS_ITS | Encounter Summary ---
:1945 Author Organization [facility] Address [address] [place] [address] Care Team Providers Name Role Phone Tigre Preciado P.A.-C. Primary Care Provider [phone] Reason for Visit Reason Comments COVID Inquiry Encounter Details Date Type Department Care Team Description 11/08/2019 Clinical Communication Department of [facility] Juan Landeros [facility], in [address] 300 [facility] [address] [place], [place] [phone] (Work) [phone] Social History Tobacco Use Types Packs/Day Years [...] - 11/08/2019 8:41 AM CDT ([facility] and [facility] locations only: If the patient is not having symptoms and is requesting COVID-19 Nasal Swab testing only, use the process listed in the COVID-19 Patient Requesting COVID PCR Test OTG COVID-19 [place] Patient Requesting COVID PCR Test). 1. Do [...] last 14 days? no Scheduling Contact Number: [phone] documented in this encounter Plan of Treatment Not on filedocumented as of this encounter Visit Diagnoses Not on filedocumented in this encounter Additional Health Concerns Assessment Noted Time PHQ-9 Depression Total Score: 1 06/02/2017 9:34 AM HEALTH PROMOTION SPECIALIST documented as of this encounter Care Teams Emt Driver Relationship Specialty Start Date End Date Tigre Preciado P.A.-C. PCP - General Family Medicine 10/11/19 [address] [place] [phone] documented as of this encounter
--- OUTSIDE RECORDS SUMMARY | 2022-04-01 13:49 | XMS_ITS | Encounter Summary ---
:1945 Author Organization [facility] Address [address] [place] [address] Care Team Providers Name Role Phone Tigre Preciado P.A.-C. Primary Care Provider [phone] Encounter Details Date Type Department Care Team Description 10/13/2019 Clinical Communication Department [facility], Jeff Edmondson [facility], in [address] [address] [place], [place] [phone] (Work) [phone] Social History Tobacco Use Types Packs/Day Years [...] encounter Miscellaneous Notes Telephone Encounter - Nanda Wilkins - 10/13/2019 1:31 PM CDT ([facility] and [facility] locations only: If the patient is not having symptoms and is requesting COVID-19 Nasal Swab testing only, use the process listed in the COVID-19 Patient Requesting COVID PCR Test OTG COVID-19 [place] Patient Requesting COVID PCR Test). In the past 30 days have you had a swab for COVID that tested positive? no Route reply to: Scheduling Contact Number: [phone] documented in this encounter Plan of Treatment Not on filedocumented as of this encounter Visit Diagnoses Not on filedocumented in this encounter Additional Health Concerns Assessment Noted Time PHQ-9 Depression Total Score: 1 06/02/2017 9:34 AM TABLE CUT OFF SAW OPERATOR documented as of this encounter Care Teams Strawhat Inspector And Packer Relationship Specialty Start Date End Date Tigre Preciado P.A.-C. PCP - General Family Medicine 10/11/19 [address] [place] [phone] documented as of this encounter
--- OUTSIDE RECORDS SUMMARY | 2022-04-01 13:49 | XMS_ITS | Encounter Summary ---
:1945 Author Organization [facility] Address [address] [place] [address] Care Team Providers Name Role Phone Tigre Preciado P.A.-C. Primary Care Provider [phone] Encounter Details Date Type Department Care Team Description 11/08/2019 Hospital Encounter Department of Loco Preciado Examination Diabetes Mellitus; Laboratory Medicine Juan Landeros Encounter For Screening For Cardiovascul ar Disorders; in [address] Screening Examination For Thyroid Disord er [place], [place] [address] [facility] [address] [place] [phone] [address] (Work) [phone] Social History Tobacco Use Types Packs/Day Years [...] mouth. vitamin Take 1 tablet by 0 A,C,Y-upcssu-nrcplklb mouth daily. (OCUVITE W/LUTEIN) 1,000 Unit-200 mg-60 [...] ation Results for this G CDT Diabetes Mellitu s procedure are in HORMONE-SENSITIVE Encounter For [...] Biotin has been identified by the emilia galloawy as a potential interfering substance. ??Higher concentr ations of biotin may be found in multivitamins, hair/nail supple ments, and workout supplements. ??If the result does not ma h clinical observations, repeat testing after patient refrains fr om the use of supplements for at least 12 hours. Specimen Anatomical Collection Method Collection Time Receive d Time (Source) Location / / Volume Laterality Blood (Blood, 11/08/2019 9:24 AM 11/08/19 20 Venous) CDT 10:26 AM CDT Tigre Preciado P.A.-C. LAB BLOOD ADD-ON Performing Organization Address City/State/ZIP Code Phon e Number [facility]- [address] [place] [address] [place] [address] System in [place] [address] (ABNORMAL) Lipid Panel [...] Organization Address City/State/ZIP Code Phon e Number [facility]- [address] [place] [address] [facility] [place] [address] System in [place] [address] (ABNORMAL) Basic Metabolic Panel (11/08/2019 9:24 [...] CDT eGFR-Black/Afri 79 >=60 11/08/2019 OW[place] can Turkish mL/min/BSA 4:18 PM CDT Comment: ----ADDITIONAL INFORMATION---- [...] Organization Address City/State/ZIP Code Phon e Number [facility]- [address] [place] [address] [place] [address] System in [place] [address] [facility] documented in this encounter Visit Diagnoses Diagnosis Screening Examination Diabetes Mellitus Encounter For Screening For Cardiovascul ar Disorders Screening Examination For Thyroid Disord er documented in this encounter Additional Health Concerns Assessment Noted Time PHQ-9 Depression Total Score: 1 06/02/2017 9:34 AM DRESSED POULTRY GRADER documented as of this encounter Care Teams Wool Brusher Relationship Specialty Start Date End Date Tigre Preciado P.A.-C. PCP - General Family Medicine 10/11/19 [address] [place] [address] documented as of this encounter
--- OUTSIDE RECORDS SUMMARY | 2022-04-01 13:49 | XMS_ITS | Encounter Summary ---
:1945 Author Organization [facility] Address [address] [place] [address] Care Team Providers Name Role Phone Tigre Preciado P.A.-C. Primary Care Provider [phone] Encounter Details Date Type Department Care Team Description 10/11/2019 Clinical Communication Department of [facility], Jeff Edmondson [employer], in [address] [address] [place], [place] [phone] [phone] (Work) [phone] Social History Tobacco Use Types Packs/Day Years [...] Telephone Encounter - Claudia Harden R.N. - 10/12/2019 2:04 PM CDT Patient is scheduled today. Telephone Encounter - Marco Ortiz L.P.NElda - 10/11/2019 4:08 PM CDT Left message for patient to return call to clinic. Does the patient need to speak to nursing? no Action needed: When patient returns call, please assist her with scheduling an appointment with [place] [facility]. Thank you. Telephone Encounter - Marco Ortiz L.P.N. - 10/11/2019 4:05 PM CDT SUBJECTIVE CHIEF COMPLAINT / REASON FOR CALL No chief complaint on file. Information Discussed Left a message stating related to her symptoms, we would like her to call and schedule a visit with the [facility] in [place]. PLAN Disposition/Recommendation: Left Message to return our call and schedule Respiratory Clinic Appointment in [place]. Information/Education: not applicable Caller agreeable to plan of care: N/A The following references were used: provider Nikkie Singletary SUBJECTIVE Telephone Encounter - Marco Ortiz L.P.N. - 10/11/2019 4:03 PM CDT Noted, My error in typing. That was where I was requesting her to go. Thank you. Telephone Encounter - Roscoe Acevedo - 10/11/2019 10:00 AM CDT Reason for Communication: Patient calling in she has been having some shortness of breath, very tired, a slight cough and some dizziness. Patient is going in today to have a Covid test done. Patient does not think she has Covid but because of the shortness of breath she is needing to be tested. Patient is not baron savvy to do a virtual visit so wondering if she can come in for a F2F after her results come back if they are negative or a phone visit Current Can Nursing/Provider leave a detailed message: Did the patient refuse triage through Nurse line? (for symptom based concerns): Action Needed: Please call patient back and let her know what the best option would be for her to beseen. 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 PCP - General Family Medicine 10/11/[address] [place] [phone] documented as of this encounter
--- OUTSIDE RECORDS SUMMARY | 2022-04-01 13:50 | XMS_ITS | Encounter Summary ---
:1945 Author Organization [facility] Address [address] [place] [address] Care Team Providers Name Role Phone Luisa Roy M.D. Primary Care Provider [phone] Encounter Details Date Type Department Care Team Description 06/14/2018 Hospital Encounter Department of Chitra salcido Mammogram Radiology in Luisa mendez, Breast Cancer [place] Jacquelyn [address] [facility] [address] [facility] [address] [place], [place] [phone] Social History Tobacco Use Types Packs/Day [...] fo r this SCREENING (most inpatients AM RN ALLERGY Mammogram Breast procedu re are in BILATERAL and all Cancer the results outpatients) section. documented in this encounter Results BI Breast Screening Bilateral (06/14/2018 10:05 AM RN ALLERGY) Anatomical Region Laterality Modality Breast, Breast Imaging RST LOS, Breast Imaging ARZ LOS, [address] st Bilateral Mammography Imaging FLA LOS Specimen (Source) Anatomical Collection Method Collection Time Re ceived Time Location / / Volume Laterality 06/14/2018 11:19 AM RN ALLERGY Impressions 06/14/2018 11:20 AM RN ALLERGY IMPRESSION: ??Negative. RECOMMENDATION: ??Annual Screening Mammo gram ASSESSMENT: ??BI-RADS: 1: Negative. Narrative 06/14/2018 11:20 AM RN ALLERGY EXAM: ??BI BREAST SCREENING BILATERAL Current study was evaluated with a Mohoundu ter Aided Detection (CAD) system. INDICATION: ??Screening [...] BILATERAL Current study was evaluated with a Mohoundu ter Aided Detection (CAD) system. INDICATION: Screening [...] Depression Total Score: 1 06/02/2017 9:34 AM RN ALLERGY documented as of this encounter Care Teams Concrete Block Layer Relationship Specialty Start Date End Date Luisa Roy M.D. PCP - General 10/01/16 10/10/19 [address] [place] [phone] documented as of this encounter
--- OUTSIDE RECORDS SUMMARY | 2022-04-01 13:50 | XMS_ITS | Encounter Summary ---
:1945 Author Organization [facility] Address [address] [place] [address] Care Team Providers Name Role Phone Luisa Roy M.D. Primary Care Provider [phone] Encounter Details Date Type Department Care Team Description 09/04/2019 Orders Only RST PCP HLTH MNT Maliha Licea ening Mammogram Breast Luisa guevara M.D. Cancer [address] [place] [address] (Wo rk) Social History Tobacco [...] Depression Total Score: 1 06/02/2017 9:34 AM AQUATIC INSTRUCTOR documented as of this encounter Care Teams Deputy Treasurer Relationship Specialty Start Date End Date Luisa Roy M.D. PCP - General 10/01/16 10/10/[address] [phone] documented as of this encounter
--- OUTSIDE RECORDS SUMMARY | 2022-04-01 13:50 | XMS_ITS | Encounter Summary ---
:1945 Author Organization [facility] Address [address] [place] [address] Care Team Providers Name Role Phone Luisa Roy M.D. Primary Care Provider [phone] Reason for Referral Outpatient (Routine) - Closed Specialty Diagnoses / Procedures Referred By Contact Refer stephon To Contact Diagnoses Screening Osteoporosis YOGI Roy [facility] Region Procedures BMD Bone Density Spine Hips ID DEXA BONE DENSITY AXIAL HC DEXA BONE DENSITY AXIAL ID DEXA BONE DENSITY AXIAL Jacquelyn Moran [address] [place] [address] Referral ID Status Reason Start Date Expiration Date Visits Requ ested Visits Authorized [id number] Closed 06/02/2017 11/29/2017 1 1 KE WORKER Reason for Visit Reason Comments Annual Exam patient fasting for any need ed bloodwork Gynecologic Exam Appointment Request (Routine) - Closed Specialty Diagnoses / Procedures Referred By Contact Refer red To Contact Family Medicine Referral ID Status Reason Start Date Expiration Date Visits Requ ested Visits Authorized [id number] Closed 05/18/2017 11/14/2017 1 1 Encounter Details Date Type Department Care Team Description 06/02/2017 Comprehensive Visit Department of Family Malika Screening Osteoporosis (Primary Dx); Medicine, Loco Wayne Examination Diabetes Mellitus; Clinic, in Jacquelyn Moran Screening Lipid [place], [place] [address] [place] [phone] Social History Tobacco Use Types Packs/Day Years [...] Comments Blood Pressure 142/64 06/02/2017 9:41 AM INTAKE WORKER Pulse 80 06/02/2017 9:35 AM INTAKE WORKER Temperature 36.7 ??C (98.1 ??F) 06/02/2017 9:35 AM INTAKE WORKER Respiratory Rate 16 06/02/2017 9:35 AM INTAKE WORKER Oxygen Saturation - - Inhaled Oxygen Concentration - - Weight 56.4 kg (124 lb 7.2 oz) 06/02/2017 9:35 AM INTAKE WORKER Height 159 cm (5' 2.6) 06/02/2017 9:35 AM INTAKE WORKER Body Mass Index 22.33 06/02/2017 9:35 AM INTAKE WORKER documented in this encounter H&P Notes Luisa [...] She is . 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 She also helps care for her [...] 06/02/2017 in Department of Family Medicine in [place], [place] Office Visit from 03/08/2017 in Department of Family Medicine in [place], [place] OP Visit from 06/01/2016 in [facility] OP Visit from 05/30/[address] [facility] OP Visit from in [facility] PHQ-9 Total Score (max 27) [...] by Beryl Augustine, a trained medical transcription editor. The creation of this record is based on the scribe's personal observations and the provider's statements to them. This document has been arti cked and approved by the attending provider. KE WORKER documented in this encounter Plan of Treatment Not on filedocumented as of this encounter Procedures Procedure Name Priority Date/Time Associated Diagnosis Comme nts LIPID PANEL, S Routine 06/02/2017 11:15 AM Screening Lipid Res ults for this INTAKE WORKER procedure are i n the results section. BASIC METABOLIC Routine 06/02/2017 11:15 AM Screening Lipid Re sults for this PANEL, S/P INTAKE WORKER procedure are i n the results section. [...] DENSITY SPINE HIPS COMPARISON: 2012, 2007, 2005 Fast Food Manager/Model: [employer] FINDINGS: ?? LUMBAR SPINE L1-L4 included unless [...] DENSITY SPINE HIPS COMPARISON: 2012, 2007, 2005 Fast Food Manager/Model: [employer] FINDINGS: LUMBAR SPINE L1-L4 included unless otherwise [...] BMP (Basic Metabolic Panel) (06/02/2017 11:15 AM [facility]) P athologist Signature Potassium, S 4.5 3.6 - 5.2 06/02/2017 [facility] mmol/L 3:49 PM [facility] Sodium, S 139 135 - 145 06/02/2017 [facility] mmol/L 3:49 PM [facility] [place] [facility] Chloride, S 98 98 - 107 06/02/2017 [facility] mmol/L 3:49 PM [facility] [place] [facility] Bicarbonate, S 28 22 - 29 06/02/2017 [facility] mmol/L 3:49 PM [facility] [place] [facility] Anion Gap 13 7 - 15 06/02/2017 [facility] 3:49 PM [facility] [place] [facility] BUN (Blood Urea 10 6 - 21 06/02/2017 [facility] Nitrogen), S mg/dL 3:49 PM [facility] [place] [facility] Creatinine 0.88 0.59 - 06/02/2017 [facility] 1.04 mg/dL 3:49 PM [facility] [place] [facility] eGFR 67 >=60 06/02/2017 [facility] Non-Black/Afric mL/min/BSA 3:49 PM [facility] [facility] Comment: ----ADDITIONAL INFORMATION---- Estimated GFR calculated using the 2009 CKD_EPI creatinine equation. eGFR Black/ 77 >=60 mL/min/BSA 06/02/2017 3:49 PM [facility] [place] [facility] Comment: ----ADDITIONAL INFORMATION---- Estimated GFR calculated using the 2009 CKD_EPI creatinine equation. Calcium, Total, S 10.0 8.9 - 10.1 mg/dL 06/02/2017 3 :49 PM [facility] [place] [facility] Glucose, S 88 70 - 140 mg/dL 06/02/2017 3:49 PM [facility] [place] [facility] Specimen Anatomical Collection Method Collection Time Receive d Time (Source) Location / / Volume Laterality Blood (Blood, 06/02/2017 11:15 06/02/2017 3:34 Venous) AM INTAKE WORKER PM INTAKE WORKER Luisa Roy M.D. LAB BLOOD ADD-ON Performing Organization Address City/State/ZIP Code Phon e Number [facility] [place] [address] [place] [address] LAB (ABNORMAL) Lipid Panel (06/02/2017 11:15 AM [facility]) P athologist Signature Cholesterol, 208 (H) mg/dL 06/02/2017 [facility] Total 3:49 PM INTAKE WORKER [facility]- [place] [facility] Comment: ----REFERENCE VALUE---- Desirable: < 200 Borderline high: 200 - 239 High: > or = 240 Triglycerides 112 mg/dL 06/02/2017 3:49 PM INTAKE WORKER [facility]- [place] [facility] Comment: ----REFERENCE VALUE---- Normal: <150 Borderline high: 150-199 High: 200-499 Very high: > or =500 Cholesterol, HDL, S 68 >=50 mg/dL 06/02/2017 3:49 PM INTAKE WORKER [facility] [place] [facility] Calculated LDL 118 mg/dL 06/02/2017 3:49 PM INTAKE WORKER [facility]- [place] [facility] Comment: ----REFERENCE VALUE---- Desirable: <100 Above Desirable: 100-129 Borderline high: 130-159 High: 160-189 Very high: > or =190 Cholesterol, Non-HDL, 140 mg/dL 06/02/2017 3:49 PM INTAKE WORKER [facility]- [place] [facility] Comment: ----REFERENCE VALUE---- Desirable: <130 Above Desirable: 130-159 Borderline high: 160-189 High: 190-219 Very high: > or =220 Specimen Anatomical Collection Method Collection Time Receive d Time (Source) Location / / Volume Laterality Blood (Blood, 06/02/2017 11:15 06/02/2017 3:34 Venous) AM INTAKE WORKER PM INTAKE WORKER Luisa Roy M.D. LAB BLOOD ADD-ON Performing Organization Address City/State/ZIP Code Phon e Number [facility] [employer] [facility] [place] [address] [place] [address] LAB documented in this encounter Visit Diagnoses Diagnosis Screening Osteoporosis - Primary Screening Examination Diabetes Mellitus Screening Lipid Screening Osteoporosis documented in this encounter Additional Health Concerns Assessment Noted Time PHQ-9 Depression Total Score: 1 06/02/2017 9:34 AM INTAKE WORKER documented as of this encounter Care Teams Brick Picker Relationship Specialty Start Date End Date Luisa Roy M.D. PCP - General 10/01/16 10/10/19 [address] [place] [phone] documented as of this encounter
--- OUTSIDE RECORDS SUMMARY | 2022-04-01 13:50 | XMS_ITS | Encounter Summary ---
:1945 Author Organization [facility] Address [address] [place] [address] Care Team Providers Name Role Phone Luisa Roy M.D. Primary Care Provider [phone] Reason for Visit Reason Comments Referral Encounter Details Date Type Department Care Team Description 06/30/2019 Clinical Communication Department of [facility] Beka Menard [facility] Medicine, Luisa Connolly, [facility], in Jacquelyn Aguilar [place] [address] [place] [phone] Social History Tobacco Use Types Packs/Day Years [...] for the very basics like Not h liuza at all 12/01/2019 food, housing, medical care, [...] this encounter Miscellaneous Notes Telephone Encounter - Trinity Hodge C.M.AElda - 06/30/2019 4:46 PM CDT [place] in [place]. Telephone Encounter - Luisa Roy M.D. - 06/30/2019 4:40 PM CDT I would love to refer the patient to physical therapy if you tell me where she wants to go. Telephone Encounter - Meliza Steiner - 06/30/2019 1:12 PM CDT Patient would like a referrals for PT for her right hip pain. Please advise [phone] documented in this encounter Plan of Treatment Not on filedocumented as of this encounter Visit Diagnoses Not on filedocumented in this encounter Additional Health Concerns Assessment Noted Time PHQ-9 Depression Total Score: 1 06/02/2017 9:34 AM QA INTERNSHIP documented as of this encounter Care Teams Direct Service Professional Relationship Specialty Start Date End Date Luisa Roy M.D. PCP - General 10/01/16 10/10/[address] [phone] documented as of this encounter
--- OUTSIDE RECORDS SUMMARY | 2022-04-01 13:50 | XMS_ITS | Encounter Summary ---
:1945 Author Organization [facility] Address [address] [place] [address] Care Team Providers Name Role Phone Luisa Roy M.D. Primary Care Provider Reason for Visit Reason Comments Follow-up review dexa scan findings co mpleted on 07/01/2017 Appointment Request (Routine) - Closed Specialty Diagnoses / Procedures Referred By Contact Refer red To Contact Family Medicine Referral ID Status Reason Start Date Expiration Date Visits Requ ested Visits Authorized [id number] Closed 07/05/2017 01/01/2018 1 Encounter Details Date Type Department Care Team Description 07/20/2017 Office Visit Department of Family Conrad Ost eoporosis (Primary Dx); Medicine, Luisa Connolly, [place]; Clinic, in Jacquelyn Aguilar [facility] [address] [place] [address] [place] [phone] Social History Tobacco Use Types Packs/Day [...] documented in this encounter Patient Instructions Patient InstructionsFrLuisa Ramos M.D. - 07/20/2017 1:30 PM CDT We discussed management of your osteoporosis and considered four options. 1. Do nothing 2. Continue calcium 1200 mg daily, vitamin D 1000 IU daily, and daily weight bearing exercise. 3. Restart a bisphosphonate like Fosamax 4. See an portable irrigation operator to discus other injectable options You have [...] a bisphosphonate like Fosamax. 4. See an portable irrigation operator to discus other injectable options. The patient [...] behalf by Beryl Augustine, a trained medical anthropologist. The creation of this record is based [...] Depression Total Score: 1 06/02/2017 9:34 AM CLAY THROWER documented as of this encounter Care Teams Customer Service Specialist Relationship Specialty Start Date End Date FruLuisa Nair M.D. PCP - General 10/01/16 10/10/19 [address] [place] [phone] documented as of this encounter
--- OUTSIDE RECORDS SUMMARY | 2022-04-01 13:50 | XMS_ITS | Encounter Summary ---
:1945 Author Organization [facility] Address [address] [place] [address] Care Team Providers Name Role Phone Luisa Roy M.D. Primary Care Provider [phone] Reason for Visit Reason Comments Earache Right ear pain, swollen lymp h nodes Encounter Details Date Type Department Care Team Description 06/30/2017 Office Visit Department of Family Christian Tesfaye Post Nasal (Primary Dx); Medicine, Alice CraneSElda, Hearing Disorder Right [facility], in [place] Agu[place] [address] [facility] [place] [address] [place], [place] [phone] Social History Tobacco Use Types Packs/Day [...] Depression Total Score: 1 06/02/2017 9:34 AM IRRIGATIONIST documented as of this encounter Care Teams Sponge [place] Relationship Specialty Start Date End Date Luisa Roy M.D. PCP - General 10/01/16 10/10/19 [address] [phone] documented as of this encounter
--- OUTSIDE RECORDS SUMMARY | 2022-04-01 13:50 | XMS_ITS | Encounter Summary ---
:1945 Author Organization [facility] Address [address] [place] [address] Care Team Providers Name Role Phone Luisa Roy M.D. Primary Care Provider [phone] Reason for Visit Reason Comments Foot Pain and up leg at times Appointment Request (Routine) - Closed Specialty Diagnoses / Procedures Referred By Contact Refer red To Contact Family Medicine Referral ID Status Reason Start Date Expiration Date Visits Requ ested Visits Authorized [id number] Closed 12/03/2017 12/03/2018 1 Encounter Details Date Type Department Care Team Description 12/13/2017 Office Visit Department of Family Tigre Preciado Pe s Planus Left (Primary Dx); Medicine in [place] Pain Foot Left [place] [address] [place] [phone] Social History Tobacco Use Types Packs/Day Years [...] gave her the option of seeing the social sciences professor but for now she wants to stick [...] Total Score: 1 06/02/2017 9:34 AM CIGARETTE TESTER documented as of this encounter Care Teams Color Sprayer Relationship Specialty Start Date End Date Luisa Roy M.D. PCP - General 10/01/16 10/10/19 [address] [phone] documented as of this encounter
--- OUTSIDE RECORDS SUMMARY | 2022-04-01 13:50 | XMS_ITS | Encounter Summary ---
:1945 Author Organization [facility] Address [address] [place] [address] Care Team Providers Name Role Phone Luisa Roy M.D. Primary Care Provider [phone] Reason for Visit Reason Onset Date Comments Medicare Annual Wellness Visit Subsequent 08/03/2018 Encounter Details Date Type Department Care Team Description 08/03/2018 Clinical Communication Department of Rianna Groves Annual Family Medicine, M, R.N. Wellness Visit [facility], Subsequent in [facility] [address] [place] [address] Social History Tobacco Use Types Packs/Day [...] Depression Total Score: 1 06/02/2017 9:34 AM POLYSOMNOGRAPH TECH documented as of this encounter Care Teams Keno Writer/Runner Relationship Specialty Start Date End Date Luisa Roy M.D. PCP - General 10/01/16 10/10/19 [address] [phone] documented as of this encounter
--- OUTSIDE RECORDS SUMMARY | 2022-04-01 13:50 | XMS_ITS | Encounter Summary ---
:1945 Author Organization [facility] Address [address] [place] [address] Care Team Providers Name Role Phone Luisa Roy M.D. Primary Care Provider [phone] Reason for Visit Reason Comments Vaginal Pain patient wishes to discuss re occurring sharp pain of uretha, she has experienced Appointment Request (Routine) - Closed Specialty Diagnoses / Procedures Referred By Contact Refer red To Contact Family Medicine Referral ID Status Reason Start Date Expiration Date Visits Requ ested Visits Authorized [id number] Closed 10/17/2018 10/17/2019 1 1 Encounter Details Date Type Department Care Team Description 10/24/2018 Office Visit Department of Family Gertrude lira (Primary Dx) Medicine, [place] Luisa thomson M.D. [facility], in [facility] [address] [place], [place] 300 [facility] [address] [place], [place] [phone] [address] (Work) [phone] Social History Tobacco Use Types Packs/Day Years [...] IF NEEDED 9 tablet 5 ??? vitamin A,C,H-yrkcvt-tkffmeyt (OCUVITE W/LUTEIN) 1,000 Unit-200 mg-60 Unit-2 mg [...] of services personally performed by Dr. Luisa Ireland. It was created on their behalf by Yessenia Vail, a trained medical service technician. The creation of this record is based [...] the results section. MS URINALYSIS AUTO WO Routine 10/24/2018 3:46 PM [...] Organization Address City/State/ZIP Code Phon e Number [facility]- [address] [place] [address] LAB (ABNORMAL) Urinalysis with Microscopic if Indicated [...] - 8.0 10/24/2018 3:57 PM CDT Specific [place] 1.010 1.001 - 1.035 10/24/2018 3:57 PM CDT Urobilinogen 0.2 0.2 - 1.0 mg/dL 10/24/2018 3:57 PM CD T Specimen Anatomical Collection Method Collection Time Receive d Time (Source) Location / / Volume Laterality Urine (Urine, 10/24/2018 3:46 PM 10/25/19 19 3:53 Clean Catch) CDT PM CDT Luisa Roy M.D. LAB URINE ORDERABLES Performing Organization Address City/[facility]/ZIP Code Phon e Number [facility] [address] [place] [address] LAB Bacterial Culture, Aerobic + Susc, Urine (10/24/2018 3:46 PM CDT) [facility] Method Time Signature Urine Culture No [...] Code Phon e Number [facility] [address] [place] [address] LAB documented in this encounter Visit Diagnoses Diagnosis Dysuria - Primary documented in this encounter Additional Health Concerns Assessment Noted Time PHQ-9 Depression Total Score: 1 06/02/2017 9:34 AM DOCUMENT PHOTOGRAPHER documented as of this encounter Care Teams Rv Mechanic Relationship Specialty Start Date End Date Luisa Roy M.D. PCP - General 10/01/16 10/10/[address] [phone] documented as of this encounter
--- OUTSIDE RECORDS SUMMARY | 2022-04-01 13:50 | XMS_ITS | Encounter Summary ---
:1945 Author Organization [facility] Address [address] [place] [address] Care Team Providers Name Role Phone Luias Roy M.D. Primary Care Provider [phone] Encounter Details Date Type Department Care Team Description 06/02/2017 Hospital Encounter Department of Chitra salcido Mammogram Radiology in Luisa mendez, Average Risk Patient Norman Aguilar M.D. 300 [facility] [address] [facility] [address] [place], [place] [phone] Social History Tobacco Use Types Packs/Day [...] fo r this SCREENING (most inpatients AM RIPSAWYER Mammogram Average proced ure are in BILATERAL and all Risk Patient the results outpatients) section. documented in this encounter Results BI Breast Screening Bilateral (06/02/2017 11:02 AM RIPSAWYER) Anatomical Region Laterality Modality Breast Bilateral Mammography Specimen (Source) Anatomical Collection Method Collection Time Re ceived Time Location / / Volume Laterality 06/02/2017 1:18 PM RIPSAWYER Impressions 06/02/2017 1:19 PM RIPSAWYER IMPRESSION: ??Negative. RECOMMENDATION: ??Annual Screening Mammo gram ASSESSMENT: ??BI-RADS: 1: Negative. Narrative 06/02/2017 1:19 PM RIPSAWYER EXAM: ??BI BREAST SCREENING BILATERAL Current study [...] Depression Total Score: 1 06/02/2017 9:34 AM RIPSAWYER documented as of this encounter Care Teams Punch Press Operator Helper Relationship Specialty Start Date End Date Luisa Roy M.D. PCP - General 10/01/16 10/10/19 [address] [place] [address] documented as of this encounter
--- OUTSIDE RECORDS SUMMARY | 2022-04-01 13:50 | XMS_ITS | Encounter Summary ---
:1945 Author Organization [facility] Address [address] [place] [address] Care Team Providers Name Role Phone Tigre Preciado P.A.-C. Primary Care Provider [phone] Reason for Visit Reason Comments COVID Nurse Line Encounter Details Date Type Department Care Team Description 10/11/2019 Clinical Communication Central Appointment Line, Covid JAMARCUS Nurse Line Office in [facility] [address] [place] [address] Social History Tobacco Use Types [...] Patient was given address, hours,and instructions of [place], [place] testing location. Patient educated on procedure [...] to be swabbed for COVID-19, sent to [place] located [address] [facility]. Take frontage [address] to back of the [...] care: Yes The following references were used: [facility] novel coronavirus (COVID- 19) resources Nursing judgement documented in this encounter Plan of Treatment Not on filedocumented as of this encounter Visit Diagnoses Not on filedocumented in this encounter Additional Health Concerns Assessment Noted Time PHQ-9 Depression Total Score: 1 06/02/2017 9:34 AM HYDRO STATION SUPERVISOR documented as of this encounter Care Teams Soda Flaker Relationship Specialty Start Date End Date Tigre Preciado P.A.-C. PCP - General Family Medicine 10/11/[address] [place] [phone] documented as of this encounter
--- OUTSIDE RECORDS SUMMARY | 2022-04-01 13:50 | XMS_ITS | Encounter Summary ---
:1945 Author Organization [facility] Address [address] [place] [address] Care Team Providers Name Role Phone Luisa Roy M.D. Primary Care Provider [phone] Reason for Visit Reason Onset Date Comments Scheduling AWV 05/02/2019 Encounter Details Date Type Department Care Team Description 05/02/2019 Clinical Communication Department of [facility] Beka Trimble Scheduling AWV Medicine, Luisa Bocanegra, [facility], in Jacquelyn Aguilar [place] [address] [place] [phone] Social History Tobacco Use Types [...] interested but can call again next year. LLERY SPECIALIST documented in this encounter Plan of Treatment Not on filedocumented as of this encounter Visit Diagnoses Not on filedocumented in this encounter Additional Health Concerns Assessment Noted Time PHQ-9 Depression Total Score: 1 06/02/2017 9:34 AM ARTILLERY SPECIALIST documented as of this encounter Care Teams Mr Teacher Relationship Specialty Start Date End Date Luisa Roy M.D. PCP - General 10/01/16 10/10/[address] [phone] documented as of this encounter
--- OUTSIDE RECORDS SUMMARY | 2022-04-01 13:50 | XMS_ITS | Encounter Summary ---
:1945 Author Organization [facility] Address [address] [place] [address] Care Team Providers Name Role Phone Luisa Roy M.D. Primary Care Provider Reason for Referral Outpatient (Routine) - Closed Specialty Diagnoses / Procedures Referred By Contact Refer red To Contact Diagnoses Screening Osteoporosis YOGI Roy [place] Region Procedures BMD Bone Density Spine Hips NE DEXA BONE DENSITY AXIAL HC DEXA BONE DENSITY AXIAL NE DEXA BONE DENSITY AXIAL Jacquelyn Moran [address] [place] [phone] Referral ID Status Reason Start Date Expiration Date Visits Requ ested Visits Authorized [id number] Closed 06/02/2017 11/29/2017 1 1 Reason for Visit Outpatient (Routine) - Closed Specialty Diagnoses / Procedures Referred By Contact Refer red To Contact Diagnoses Screening Osteoporosis YOGI Roy [place] Region Procedures BMD Bone Density Spine Hips NE DEXA BONE DENSITY AXIAL HC DEXA BONE DENSITY AXIAL NE DEXA BONE DENSITY AXIAL Jacquelyn Moran [address] [place] [phone] Referral ID Status Reason Start Date Expiration Date Visits Requ ested Visits Authorized [id number] Closed 06/02/2017 11/29/2017 1 1 Encounter Details Date Type Department Care Team Description 07/01/2017 Hospital Encounter Department of [facility] Radiology in nzinski, Luisa, Osteoporosis LocoNorman M.D. [address] [place] [address] [place] [phone] Social History Tobacco Use Types Packs/Day [...] DENSITY SPINE HIPS COMPARISON: 2012, 2007, 2005 Powdered Metal Supervisor/Model: ELERTS FINDINGS: ?? LUMBAR SPINE L1-L4 included unless [...] DENSITY SPINE HIPS COMPARISON: 2012, 2007, 2005 Powdered Metal Supervisor/Model: ELERTS FINDINGS: LUMBAR SPINE L1-L4 included unless otherwise [...] Depression Total Score: 1 06/02/2017 9:34 AM GEOGRAPHY PROFESSOR documented as of this encounter Care Teams Cake Tester Relationship Specialty Start Date End Date Luisa Roy M.D. PCP - General 10/01/16 10/10/19 [address] [place] [phone] documented as of this encounter
--- OUTSIDE RECORDS SUMMARY | 2022-04-01 13:50 | XMS_ITS | Encounter Summary ---
:1945 Author Organization [facility] Address [address] [place] [address] Care Team Providers Name Role Phone Luisa Roy M.D. Primary Care Provider [phone] Reason for Referral Outpatient (Routine) - Closed Specialty Diagnoses / Procedures Referred By Contact Refer red To Contact Otorhinolaryngology Diagnoses Loss Hearing Bilateral Scot Chavarria Judy, M.D. M.D. [address] [place], [place] [phone] Referral ID Status Reason Start Date Expiration Visits Visits Date Requested Authorized [id number] Closed Patient 08/24/2017 02/20/2018 1 1 Preference Encounter Details Date Type Department Care Team Description 08/24/2017 Orders Only Department of Family [place] rose Hearing Bilateral Medicine, Luisa Connolly, (Primary Dx) Clinic, in Jacquelyn Aguilar [place] [address] [place] [phone] Social History Tobacco Use Types Packs/Day Years [...] Depression Total Score: 1 06/02/2017 9:34 AM GRANTS ASSISTANT documented as of this encounter Care Teams Plumbing Engineering Draftsperson Relationship Specialty Start Date End Date Luisa Roy M.D. PCP - General 10/01/16 10/10/19 [address] [place] [phone] documented as of this encounter
--- OUTSIDE RECORDS SUMMARY | 2022-04-01 13:50 | XMS_ITS | Encounter Summary ---
:1945 Author Organization [facility] Address [address] [place] [address] Care Team Providers Name Role Phone Luisa Roy M.D. Primary Care Provider Reason for Visit Reason Comments Pain In Limb constant numbness and tingli ng sensation in bilateral toes URI cough and congestion with lo w grade fever x 4 days Encounter Details Date Type Department Care Team Description 11/18/2017 Office Visit Department of [facility] [place] Peripheral (Primary Dx); Medicine, Luisa Connolly Infectio n [facility], in Jacquelyn Aguilar [place] [address] [place] [address] [place] [phone] Social History Tobacco Use Types Packs/Day Years [...] - Vitamin B12 Assay - Thyroid Function Epes #2 Infection Upper Respiratory Like viral. Symptomatic [...] documented in this encounter Results Thyroid Function Epes (11/18/2017 9:38 AM CDT) P athologist Signature TSH, Sensitive 3.7 0.3 - 4.2 11/18/2017 [facility] mIU/L 11:47 AM CDT [facility] LAB Comment: Biotin has been identified by [...] e Number [facility] [address] [place] [address] LAB (ABNORMAL) Vitamin B12 Assay (11/18/2017 9:38 AM CDT) Analysis Performed At Patho logist Time Signature Vitamin B12 >2000 (H) 232 - 1245 11/18/2017 [facility] Assay, S ng/L 2:49 PM CDT [facility] LAB Comment: Biotin has been identified by [...] 18 1:59 Venous) CDT PM CDT Luisa Kirill Valladares LAB BLOOD ADD-ON Performing Organization Address City/State/ZIP Code Phon e Number [facility]- [address] [place] [address] DEPOSIT LAB CBC with Differential, Blood (11/18/2017 9:38 AM CDT) P athologist Signature Hemoglobin 14.2 11.6 - 11/18/2017 [facility] 15.0 g/dL 9:55 AM CDT [facility] [place] [facility] Hematocrit 41.4 35.5 - 11/18/2017 [facility] 44.9 % 9:55 AM CDT [facility] Erythrocytes 4.57 3.92 - 11/18/2017 [facility] 5.13 9:55 AM CDT [facility] MCV 90.6 78.2 - 11/18/2017 [facility] 97.9 fL 9:55 AM CDT [facility] RBC Distrib Width 13.0 12.2 - 11/18/2017 [facility] 16.1 % 9:55 AM CDT [facility] Platelet Count 349 157 - 371 11/18/2017 [facility] x10(9)/L 9:55 AM CDT [facility] Leukocytes 6.4 3.4 - 9.6 11/18/2017 [facility] x10(9)/L 9:55 AM CDT [facility] Neutrophils 3.50 1.56 - 11/18/2017 [facility] 6.45 9:55 AM CDT [facility] [place] [facility] Lymphocytes 1.87 0.95 - 11/18/2017 [facility] 3.07 9:55 AM CDT [facility] [place] [facility] Monocytes 0.79 0.26 - 11/18/2017 [facility] 0.81 9:55 AM CDT [facility] [place] [facility] Eosinophils 0.16 0.03 - 11/18/2017 [facility] 0.48 9:55 AM CDT [facility] [place] [facility] Basophils 0.07 0.01 - 11/18/2017 [facility] 0.08 9:55 AM CDT [facility] Specimen Anatomical Collection Method Collection Time Receive d Time (Source) Location / / Volume Laterality Blood (Blood, 11/18/2017 9:38 AM 11/19/19 18 9:40 Venous) CDT AM CDT Luisa Roy M.D. LAB BLOOD ADD-ON Performing Organization Address City/State/ZIP Code Phon e Number [facility] [address] [facility] [place] [address] [facility] [address] [facility] [place] [address] [place] [facility] documented in this encounter Visit Diagnoses Diagnosis Neuropathy Peripheral - Primary Infection Upper Respiratory documented in this encounter Additional Health Concerns Assessment Noted Time PHQ-9 Depression Total Score: 1 06/02/2017 9:34 AM MEDICAL TYPIST documented as of this encounter Care Teams Air Defense Artillery Senior Sergeant Relationship Specialty Start Date End Date Luisa Roy M.D. PCP - General 10/01/16 10/10/[address] [phone] documented as of this encounter
--- OUTSIDE RECORDS SUMMARY | 2022-04-01 13:50 | XMS_ITS | Encounter Summary ---
:1945 Author Organization [facility] Address [address] [place] [address] Care Team Providers Name Role Phone Luisa Roy M.D. Primary Care Provider [phone] Reason for Visit Reason Comments Follow-up right ear, states not better , states now the left ear is starting to bug her. Encounter Details Date Type Department Care Team Description 07/08/2017 Office Visit Department of Tigre Simon Eu stachian Tube Medicine in [place], P.AElda-C. Disorder Right [place] [address] [facility] (Primary Dx) [address] [place] [phone] Social History Tobacco Use Types Packs/Day Years [...] in this encounter Progress Notes Tigre Preciado P.A.ArtC. - 07/08/2017 1:00 PM CDT CHIEF COMPLAINT [...] Depression Total Score: 1 06/02/2017 9:34 AM CHILD WELFARE SPECIALIST documented as of this encounter Care Teams Communications Analyst Relationship Specialty Start Date End Date Luisa Roy M.D. PCP - General 10/01/16 10/10/[address] [phone] documented as of this encounter
--- OUTSIDE RECORDS SUMMARY | 2022-04-01 13:50 | XMS_ITS | Encounter Summary ---
:1945 Author Organization [facility] Address [address] [place] [address] Care Team Providers Name Role Phone Luisa Roy M.D. Primary Care Provider [phone] Encounter Details Date Type Department Care Team Description 01/14/2018 Clinical Communication Department of [facility] Beka Menard [facility], Luisa Connolly, [facility], in Jacquelyn Aguilar [place] [phone] [address] [place], [place] [phone] Social History Tobacco Use Types Packs/Day Years [...] Total Score: 1 06/02/2017 9:34 AM SEED DISTRICT SALES MANAGER documented as of this encounter Care Teams Synthetic Soil Blocks Pulper Relationship Specialty Start Date End Date Luisa Roy M.D. PCP - General 10/01/16 10/10/19 [address] [place] [address] documented as of this encounter
--- OUTSIDE RECORDS SUMMARY | 2022-04-01 13:50 | XMS_ITS | Encounter Summary ---
:1945 Author Organization [facility] Address [address] [place] [address] Care Team Providers Name Role Phone Luisa Roy M.D. Primary Care Provider [phone] Reason for Referral Physical Therapy (Routine) - Closed Specialty Diagnoses / Procedures Referred By Contact Refer red To Contact Physical Therapy Diagnoses Pain Neck Chase Roy M.D. Therapy [address] [facility] [place] [address] [place] [address] [place] [address] Phone: [phone] Referral ID Status Reason Start Date Expiration Visits Visits Date Requested Authorized [id number] Closed Patient 09/15/2017 09/15/2018 1 1 Preference Encounter Details Date Type Department Care Team Description 09/08/2017 Clinical Communication [facility], Luisa Zhou [facility], in Jacquelyn Connors [place] [address] [place] [address] [phone] Social History Tobacco Use Types Packs/Day Years [...] 09/22/2017 7:46 AM CDT referal faxed to [facility] physical therapy Telephone Encounter - Luisa Roy M.D. - 09/15/2017 5:28 PM CDT [facility] Encounter - Namita Rodriguez L.P.N. - [...] would like to extended her referral at [facility]. She can be reached at [phone] documented in this encounter Plan of Treatment Not on filedocumented as of this encounter Visit Diagnoses Diagnosis Pain Neck - Primary documented in this encounter Additional Health Concerns Assessment Noted Time PHQ-9 Depression Total Score: 1 06/02/2017 9:34 AM BRUSH OR BROOM CUTTER documented as of this encounter Care Teams Medical Administrator Relationship Specialty Start Date End Date Luisa Roy M.D. PCP - General 10/01/16 [address] [address] documented as of this encounter
--- OUTSIDE RECORDS SUMMARY | 2022-04-01 13:50 | XMS_ITS | Encounter Summary ---
:1945 Author Organization [facility] Address [address] [place] [address] Care Team Providers Name Role Phone Luisa Roy M.D. Primary Care Provider [phone] Encounter Details Date Type Department Care Team Description 12/03/2017 Clinical Communication Department of [facility], in [address] [address] [place], [place] [phone] [address] (Work) [phone] Social History Tobacco Use Types Packs/Day Years [...] Miscellaneous Notes Telephone Encounter - Diya Saenz L.P.N. - 12/03/2017 3:42 PM CDT Switched appt from Dec to Dec 13 Telephone Encounter - Davis Villalobos - 12/03/2017 12:51 PM CDT PT calling to see if we could work her into schedule on either 12/06 or 12/13, in [place]. Pt is havingft pain, and we have an appt set for 12/23, but was hoping to be seen sooner. Please advise: [phone] documented in this encounter Plan of Treatment Not on filedocumented as of this encounter Visit Diagnoses Not on filedocumented in this encounter Additional Health Concerns Assessment Noted Time PHQ-9 Depression Total Score: 1 06/02/2017 9:34 AM EDUCATIONAL TECHNICIAN documented as of this encounter Care Teams Form Tamper Operator Relationship Specialty Start Date End Date Luisa Roy M.D. PCP - General 10/01/16 10/10/[address] [phone] documented as of this encounter
--- OUTSIDE RECORDS SUMMARY | 2022-04-01 13:50 | XMS_ITS | Encounter Summary ---
:1945 Author Organization [facility] Address [address] [place] [address] Care Team Providers Name Role Phone Luisa Roy M.D. Primary Care Provider [phone] Encounter Details Date Type Department Care Team Description 06/14/2018 Hospital Encounter Department of Radiology Grant Felix Pain Foot Left in [facility] Luisa randle M.D. [address] [facility] [address] [facility] [place] [phone] Social History Tobacco Use Types Packs/Day [...] ts for this VIEWS (most inpatients AM BENDING ROLL OPERATOR procedure a re in and all the results outpatients) section. documented in this encounter Results DX Foot Left 3+ Views (06/14/2018 10:15 AM BENDING ROLL OPERATOR) Anatomical Region Laterality Modality Lower Extremity, Foot, Musculoskeletal RST LOS, Left Digital Radiography Musculoskeletal ARZ LOS, Muskuloskeletal FLA LOS Specimen (Source) Anatomical Collection Method Collection Time Re ceived Time Location / / Volume Laterality 06/14/2018 10:36 AM BENDING ROLL OPERATOR Impressions 06/14/2018 10:37 AM BENDING ROLL OPERATOR IMPRESSION: No appreciable acute osseous injury of the left foot. Scattered degenerative changes of the left mid and hindfoot. Narrative 06/14/2018 10:37 AM BENDING ROLL OPERATOR EXAM: DX FOOT LEFT 3+ VIEWS COMPARISON: [...] Depression Total Score: 1 06/02/2017 9:34 AM BENDING ROLL OPERATOR documented as of this encounter Care Teams Geophysical Party Chief Relationship Specialty Start Date End Date Luisa Roy M.D. PCP - General 10/01/16 10/10/19 [address] [place] [phone] documented as of this encounter
--- OUTSIDE RECORDS SUMMARY | 2022-04-01 13:50 | XMS_ITS | Encounter Summary ---
:1945 Author Organization [facility] Address [address] [place] [address] Care Team Providers Name Role Phone Luisa Roy M.D. Primary Care Provider Reason for Referral Outpatient (Routine) - Closed Specialty Diagnoses / Procedures Referred By Contact Refer red To Contact Podiatry Diagnoses Pain Foot Left Antolin [facility], [facility] [address] [facility] [address] [place] [address] [address] [place] [address] Phone: [phone] Referral ID Status Reason Start Date Expiration Visits Visits Date Requested Authorized [id number] Closed Patient 06/14/2018 06/14/2019 1 1 Preference hysical Therapy (Routine) - Closed Specialty Diagnoses / Procedures Referred By Contact Refer red To Contact Physical Therapy Diagnoses Pain Neck Chase Roy Physical [facility] [address] [facility] [place] [address] [address] [place] [address] Phone: [phone] Referral ID Status Reason Start Date Expiration Visits Visits Date Requested Authorized [id number] Closed Patient 06/14/2018 06/14/2019 1 1 Preference WORKER Reason for Visit Reason Comments Annual Exam Patient is in today for barney al exam. Appointment Request (Routine) - Closed Specialty Diagnoses / Procedures Referred By Contact Refer red To Contact Family Medicine Referral ID Status Reason Start Date Expiration Date Visits Requ ested Visits Authorized [id number] Closed 05/06/2018 05/06/2019 1 Encounter Details Date Type Department Care Team Description 06/14/2018 Comprehensive Visit Department of [facility] Malika darnell Screening Examination Diabetes Mellitus (Primary Dx); Medicine, [place] Luisa mendez, Screen ing Lipid; Clinic, in M.D. Pain Neck; [place], [place] [address] Neuropathy Peripheral; [address] Pain [...] Comments Blood Pressure 136/88 06/14/2018 8:41 AM COKE WORKER Pulse 76 06/14/2018 8:35 AM COKE WORKER Temperature 36.6 ??C (97.9 ??F) 06/14/2018 8:35 AM COKE WORKER Respiratory Rate 12 06/14/2018 8:35 AM COKE WORKER Oxygen Saturation - - Inhaled Oxygen Concentration - - Weight 56.7 kg (125 lb) 06/14/2018 8:35 AM COKE WORKER Height 159.5 cm (5' 2.8) 06/14/2018 8:35 AM COKE WORKER Body Mass Index 22.29 06/14/2018 8:35 AM COKE WORKER documented in this encounter H&P Notes [...] She is . 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 She also helps care for her grandchildren. She has 3 daughters, 1 [place], 1 in the [facility], 1 in [place]. History Drug Use No History Alcohol Use [...] clinic with any new or worsening symptoms. WORKER documented in this encounter Plan of Treatment Not on filedocumented as of this encounter Procedures Procedure Name Priority Date/Time Associated Diagnosis Comme nts LIPID PANEL, S Routine 06/14/2018 10:20 AM Screening Lipid Res ults for this COKE WORKER procedure are i n the results section. BASIC METABOLIC Routine 06/14/2018 10:20 AM Screening Resul ts for this PANEL, S/P COKE WORKER Examination Diabetes procedu re are in Mellitus the results section. documented in this encounter Results Basic Metabolic Panel (06/14/2018 10:20 AM COKE WORKER) P athologist Signature Potassium, S 4.4 3.6 - 5.2 06/14/2018 [facility] mmol/L 1:55 PM [facility] [place] [facility] Sodium, S 139 135 - 145 06/14/2018 [facility] mmol/L 1:55 PM [facility] Chloride, S 100 98 - 107 06/14/2018 [facility] mmol/L 1:55 PM [facility] Bicarbonate, S 29 22 - 29 06/14/2018 [facility] mmol/L 1:55 PM [facility] Anion Gap 10 7 - 15 06/14/2018 [facility] 1:55 PM [facility] BUN (Blood Urea 10 6 - 21 06/14/2018 [facility] Nitrogen), S mg/dL 1:55 PM [facility] Creatinine 0.90 0.59 - 06/14/2018 [facility] 1.04 mg/dL 2:51 PM [facility] eGFR-Non 65 >=60 06/14/2018 [facility] Black/ mL/min/BSA 2:51 PM [facility] [place] [facility] Comment: ----ADDITIONAL INFORMATION---- Estimated GFR calculated using the 2009 CKD_EPI creatinine equation. eGFR-Black/ 74 >=60 mL/min/BSA 2018 2:51 PM [facility] [place] [facility] Comment: ----ADDITIONAL INFORMATION---- Estimated GFR calculated using the 2009 CKD_EPI creatinine equation. Calcium, Total, S 9.7 8.8 - 10.2 mg/dL 06/14/2018 1 :55 PM [facility] Glucose, S 95 70 - 140 mg/dL 06/14/2018 2:51 PM [facility] Specimen Anatomical Collection Method Collection Time Receive d Time (Source) Location / / Volume Laterality Blood (Blood, 06/14/2018 10:20 06/14/2018 1:05 Venous) AM COKE WORKER PM COKE WORKER Luisa Roy M.D. LAB BLOOD ADD-ON Performing Organization Address City/State/ZIP Code Phon e Number [facility] [address] [place] [address] LAB Lipid Panel (06/14/2018 10:20 AM [facility]) athologist Signature Cholesterol, 183 mg/dL 06/14/2018 [facility] Total 2:51 PM [facility] [place] [facility] Comment: ----REFERENCE VALUE---- Desirable: < 200 Borderline high: 200 - 239 High: > or = 240 Triglycerides 97 mg/dL 06/14/2018 2:51 PM [facility] [place] [facility] Comment: ----REFERENCE VALUE---- Normal: <150 Borderline high: 150-199 High: 200-499 Very high: > or =500 Cholesterol, HDL, S 63 >=50 mg/dL 06/14/2018 2:51 PM COKE WORKER [facility] Calculated LDL 101 mg/dL 06/14/2018 2:51 PM COKE WORKER [facility] [place] [facility] Comment: ----REFERENCE VALUE---- Desirable: <100 Above Desirable: 100-129 Borderline high: 130-159 High: 160-189 Very high: > or =190 Cholesterol, Non-HDL, 120 mg/dL 06/14/2018 2:51 PM COKE WORKER [facility] [place] [facility] Comment: ----REFERENCE VALUE---- Desirable: <130 Above Desirable: 130-159 Borderline high: 160-189 High: 190-219 Very high: > or =220 Specimen Anatomical Collection Method Collection Time Receive d Time (Source) Location / / Volume Laterality Blood (Blood, 06/14/2018 10:20 06/14/2018 1:05 Venous) AM COKE WORKER PM COKE WORKER Luisa Roy M.D. LAB BLOOD ADD-ON Performing Organization Address City/State/ZIP Code Phon e Number [facility] [address] [place] [address] LAB DX Foot Left 3+ Views (06/14/2018 10:15 AM COKE WORKER) Anatomical Region Laterality Modality Lower Extremity, Foot, Musculoskeletal RST LOS, Left Digital Radiography Musculoskeletal ARZ LOS, Muskuloskeletal FLA LOS Specimen (Source) Anatomical Collection Method Collection Time Re ceived Time Location / / Volume Laterality 06/14/2018 10:36 AM COKE WORKER Impressions 06/14/2018 10:37 AM COKE WORKER IMPRESSION: No appreciable acute osseous injury of the left foot. Scattered degenerative changes of the left mid and hindfoot. Narrative 06/14/2018 10:37 AM COKE WORKER EXAM: DX FOOT LEFT 3+ VIEWS COMPARISON: [...] Depression Total Score: 1 06/02/2017 9:34 AM COKE WORKER documented as of this encounter Care Teams Milking Worker Relationship Specialty Start Date End Date Luisa Roy M.D. PCP - General 10/01/16 10/10/[address] [address] documented as of this encounter
--- OUTSIDE RECORDS SUMMARY | 2022-04-01 13:50 | XMS_ITS | Encounter Summary ---
:1945 Author Organization [facility] Address [address] [place] [address] Care Team Providers Name Role Phone Luisa Roy M.D. Primary Care Provider [phone] Encounter Details Date Type Department Care Team Description 08/23/2017 Clinical Communication Department of Internal Jonathan Schultz Medicine in [place], [place] M.D. [address] [place] [address] [place], [place] [phone] Social History Tobacco Use Types Packs/Day Years [...] to go? Telephone Encounter - Namita Rodriguez L.PEldaNElda - 08/24/2017 9:28 AM CDT See message. Telephone Encounter - Rosalind Velazquez - 08/23/2017 11:13 AM CDT Patient is wondering if she could be referred elsewhere for Audiology/ENT. She does not want to waituntil 09/08/17. Please advise and call [phone] documented in this encounter Plan of Treatment Not on filedocumented as of this encounter Visit Diagnoses Not on filedocumented in this encounter Additional Health Concerns Assessment Noted Time PHQ-9 Depression Total Score: 1 06/02/2017 9:34 AM CLERICAL PROOFREADER documented as of this encounter Care Teams Fur Tailor Relationship Specialty Start Date End Date Luisa Roy M.D. PCP - General 10/01/16 10/10/[address] [address] documented as of this encounter
--- OUTSIDE RECORDS SUMMARY | 2022-04-01 13:50 | XMS_ITS | Encounter Summary ---
:1945 Author Organization [facility] Address [address] [place] [address] Care Team Providers Name Role Phone Luisa Roy M.D. Primary Care Provider [phone] Encounter Details Date Type Department Care Team Description 08/24/2017 Clinical Communication Department of [facility] Beka Menard [facility], Luisa Connolly, [facility], in Jacquelyn Aguilar [place] [id number] [address], [place] [phone] Social History Tobacco Use Types Packs/Day Years [...] Telephone Encounter - Cara Alston L.P.N. - 08/24/2017 3:49 PM CDT referal submitted to juan luis ent with patient notified and patient to call to make appointment Telephone Encounter - Namita Rodriguez L.P.N. - 08/24/2017 1:18 PM CDT Attempted to contact patient. Message left to return my call. See previous message. Telephone Encounter - Luisa Roy M.D. - 08/24/2017 1:11 PM CDT Where would she like to go fir audiology? documented in this encounter Plan of Treatment Not on filedocumented as of this encounter Visit Diagnoses Not on filedocumented in this encounter Additional Health Concerns Assessment Noted Time PHQ-9 Depression Total Score: 1 06/02/2017 9:34 AM MISSILE MECHANIC documented as of this encounter Care Teams Washing And Screening Plant Supervisor Relationship Specialty Start Date End Date Luisa Roy M.D. PCP - General 10/01/16 10/10/[address] [address] documented as of this encounter
--- OUTSIDE RECORDS SUMMARY | 2022-04-01 13:50 | XMS_ITS | Encounter Summary ---
:1945 Author Organization [facility] Address [address] [place] [address] Care Team Providers Name Role Phone Luisa Roy M.D. Primary Care Provider Reason for Visit Reason Comments Gynecologic Exam patient states it feels like my bladder is falling into my nicolas x 2 weeks and also noting pa in in uretha Appointment Request (Routine) - Closed Specialty Diagnoses / Procedures Referred By Contact Refer red To Contact Family Medicine Referral ID Status Reason Start Date Expiration Date Visits Requ ested Visits Authorized [id number] Closed 01/03/2018 01/03/2019 1 Encounter Details Date Type Department Care Team Description 01/14/2018 Office Visit Department of Family [place] Paul axmuriel Pelvic Floor (Primary Dx); Medicine, Luisa Connolly, Dysuria Clinic, in Jacquelyn Aguilar [place] [address] [place] [address] Social History Tobacco Use Types Packs/Day [...] on. We could consider vaginal estrogen. Consider landing man consult. #2 Dysuria This is likely secondary [...] athologist Signature White Blood Occ-3 /hpf 01/14/2018 [facility] Cells 11:43 AM CDT [facility] Comment: ----REFERENCE VALUE---- Males: 0-3 Females: 0-10 Unknown: 0-10 Red Blood Cells None Seen 0 - 2 /hpf 01/14/2018 11:43 AM CDT [facility] [place] [facility] Specimen Anatomical Collection Method Collection Time Receive d Time (Source) Location / / Volume Laterality Urine 01/14/2018 11:10 01/14/2018 AM CDT 11:29 AM CDT Luisa Roy M.D. LAB URINE ORDERABLES Performing Organization Address City/Special Care Hospital/ZIP Code Phon e Number [facility]- [address] [place] [address] [facility]- [address] [place] [address] [facility] Bacterial Culture, Aerobic + Susc, Urine (01/14/2018 11:10 AM CDT) [facility] gist Method Time Signature Bacterial No growth 01/15/2018 [facility] Culture, after 1 day 4:12 PM CDT [facility] Aerobic, Urine of SYSTEM- [facility] LAB Specimen Anatomical Collection Method Collection Time Receive d Time (Source) Location / / Volume Laterality Urine (Urine, 01/14/2018 11:10 01/14/2018 6:53 Mid[facility]) AM CDT PM CDT Comment: Specimen Source Site: Urine Mid stream Luisa Roy M.D. LAB MICROBIOLOGY - GEN ERAL ORDERABLES Performing Organization Address City/Special Care Hospital/ZIP Code Phon e Number [facility] [address] [place] [address] LAB (ABNORMAL) Urinalysis with Microscopic if Indicated (01/14/2018 11:10 AM CDT) P athologist Signature Source Midstream 01/14/2018 [facility] 11:29 AM [facility] LAB Clarity Clear Clear 01/14/2018 [facility] 11:29 AM [facility] Color Yellow 01/14/2018 [facility] 11:29 AM [facility] Comment: ----REFERENCE VALUE---- Colorless Yellow Ny Blood Negative Negative 01/14/2018 11:29 AM [facility] [place] B Nitrite Negative Negative 01/14/2018 11:29 AM [facility] [place] B Leukocyte Esterase Trace (A) Negative 01/14/2018 11:29 AM [facility] [place] B Protein Negative mg/dL 01/14/2018 11:29 AM [facility] B Comment: ----REFERENCE VALUE---- Negative Trace Glucose Negative Negative mg/dL 01/14/2018 11:29 AM [facility] Ketones, QI(U) Negative Negative mg/dL 01/14/2018 11:29 AM [facility] LAB Bilirubin Negative Negative 01/14/2018 11:29 AM [facility] pH 7.0 5.0 - 8.0 01/14/2018 11:29 AM [facility] LAB Specific [place] 1.015 1.001 - 1.035 01/14/2018 11:29 AM [facility] Urobilinogen 0.2 0.2 - 1.0 mg/dL 01/14/2018 11:[address] LAB Specimen Anatomical Collection Method Collection Time Receive d Time (Source) Location / / Volume Laterality Urine (Urine, 01/14/2018 11:10 01/14/2018 [facility]) AM CDT 11:18 AM CDT Luisa Roy M.D. LAB URINE ORDERABLES Performing Organization Address City/State/ZIP Code Phon e Number [facility]- [address] [place] [address] [facility]- [address] [facility] DEJA Aguilar [address], [facility] [place] documented in this encounter Visit Diagnoses Diagnosis Relaxation Pelvic Floor - Primary Dysuria documented in this encounter Additional Health Concerns Assessment Noted Time PHQ-9 Depression Total Score: 1 06/02/2017 9:34 AM LIGHT BULB ASSEMBLER documented as of this encounter Care Teams Vp Relationship Specialty Start Date End Date Luisa Roy M.D. PCP - General 10/01/16 10/10/19 [address], [place] [address] documented as of this encounter
--- OUTSIDE RECORDS SUMMARY | 2022-04-01 13:50 | XMS_ITS | Encounter Summary ---
:1945 Author Organization [facility] Address [address] [place] [address] Care Team Providers Name Role Phone Luisa Roy M.D. Primary Care Provider [phone] Reason for Visit Reason Comments Med Refill Encounter Details Date Type Department Care Team Description 06/03/2018 Refill Department of Family Medicine, Beka Hayes Med Refill [facility] Luisa Aguilar M.D. [place] [address] [place] [address] [place] [address] [phone] Social History Tobacco Use Types Packs/Day Years [...] Total Score: 1 06/02/2017 9:34 AM CASH APPLICATIONS ASSOCIATE documented as of this encounter Care Teams Custom Wood Stair Builder Relationship Specialty Start Date End Date Luisa Roy M.D. PCP - General 10/01/16 10/10/[address] [address] documented as of this encounter
--- OUTSIDE RECORDS SUMMARY | 2022-04-01 13:50 | XMS_ITS | Encounter Summary ---
:[address] [facility] Address [address] [place] [address] Care Team Providers Name Role Phone Luisa Roy M.D. Primary Care Provider [phone] Reason for Visit Reason Onset Date Comments Increase in pain 10/27/2018 Encounter Details Date Type Department Care Team Description 10/27/2018 Clinical Communication Department of [facility] Beka Rojas in pain Medicine, [place] Luisa mendez, [facility], in [place], [place] [address] [place] [phone] Social History Tobacco Use Types Packs/Day [...] Miscellaneous Notes Telephone Encounter - Cara Alston LEldaP.N. - 10/27/2018 2:48 PM CDT SUBJECTIVE CHIEF COMPLAINT / REASON FOR CALL Increase in pain INFORMATION DISCUSSED Spoke to patient with patient given findings of neg for UTI. Per patient she requested orders and referal for ct urogram at [facility] be put on hold at this time due to patient stating painhas become so intense she is reporting to [facility] emergency room to be evaluated. Patient [...] further evaluate. Please order CT urogram to [place] [address]. Telephone Encounter - Michelle Tovar LEldaP.N. - 10/27/2018 8:20 AM CDT Spoke with [...] Depression Total Score: 1 06/02/2017 9:34 AM BRASS POLISHER documented as of this encounter Care Teams Sap Mobility Architect Relationship Specialty Start Date End Date Luisa Roy M.D. PCP - General 10/01/16 10/10/[address] [address] documented as of this encounter
--- OUTSIDE RECORDS SUMMARY | 2022-04-01 13:51 | XMS_ITS | Encounter Summary ---
:1945 Author Organization [facility] Address [address] [place] [address] Care Team Providers Name Role Phone Luisa Roy M.D. Primary Care Provider [phone] Reason for Visit Reason Comments Communication Encounter Details Date Type Department Care Team Description 05/28/2017 Clinical Communication Department of [facility] Beka Lyman Medicine, Luisa Mendoza, [facility], in Jacquelyn [place] [address] [facility] [place] [phone] Social History Tobacco Use Types Packs/Day Years [...] CST Patient notified of recommendation. She will picker/puller prescription. ING PRESS OPERATOR Telephone Encounter - Claudia Harden R.N. - 05/28/2017 2:54 PM CST Images from the original note were not included. Tigre Preciado P.A.-C. ??You 1 hour ago (1:42 PM) I called in [place] for her (Routing comment) ING PRESS OPERATOR Telephone Encounter - Claudia Rodriguez - 05/28/2017 12:47 PM CST Patient called in and still has a blocked ear and has a lot of drainage and bringing up a lot of stuff and her teeth hurt. Please call her back at [phone] or [phone](no voicemail) She wouldlike to know what she should do. ING PRESS OPERATOR documented in this encounter Plan of Treatment Not on filedocumented as of this encounter Visit Diagnoses Not on filedocumented in this encounter Care Teams Wastewater Treatment Engineer Relationship Specialty Start Date End Date Luisa Roy M.D. PCP - General 10/01/16 10/10/19 [address] [phone] documented as of this encounter
--- OUTSIDE RECORDS SUMMARY | 2022-04-01 13:51 | XMS_ITS | Encounter Summary ---
:1945 Author Organization [facility] Address [address] [place] [address] Care Team Providers Name Role Phone Luisa Roy M.D. Primary Care Provider [phone] Encounter Details Date Type Department Care Team Description 10/30/2016 Hospital Encounter HX [facility] Luisa Alba M.D. [address] [place], [place] [phone] (Wo rk) Social History [...] Roy M.D. - 02/19/2017 12:00 AM CDT [id number] NOTE FROM THE PHYSICIAN: the patient no-showed to her appointment this afternoon. This document serves as a record of services personally performed by Luisa Ireland MD. It was created on their behalf by Beryl Augustine, a trained biomedical engineer. The creation of this record is based on the scribe's personal observations and the provider's statements to them. This document has been arti cked and approved by the attending provider. Luisa Ty M.D./evan Electronically Signed By: LUISA WHITTEN MD On: 02/19/2017 04:07 PM Source: [facility] MHSDOLBEYNDOMOSYS Document Id: [id number] Luisa Whitten M.D. - 10/30/2016 1:20 PM CDT [id number] CHIEF COMPLAINT/ REASON FOR VISIT Right sided [...] their behalf by Beryl Augustine, a trained biomedical engineer. The creation of this record is based on the scribe's personal observations and the provider's statements to them. This document has been arti cked and approved by the attending provider. Luisa Ty M.D./evan Electronically Signed By: LUISA WHITTEN MD On: 11/05/2016 10:48 PM Source: [facility] MHSDOLBEYNONRADSYS Document Id: [id number] documented in this encounter Miscellaneous Notes Miscellaneous - Loyda Lee, L.P.N. - 10/30/2016 1:29 PM CDT Adult Cable Tv Installer Intake/History Adult Cable Tv Installer Intake/History Entered On: 10/30/2016 13:32 CDT Performed On: 10/30/2016 13:29 CDT by LOYDA LEE LPN Intake Chief Complaint : sinus drainage pain [...] Information Given By : Patient Languages : German Is Patient Female and 13-50 no hysterectomy : No LOYDA LEE LPN - 10/30/2016 13:29 CDT Subjective Pain Symptoms : Yes LOYDA LEE LPN - 10/30/2016 13:29 CDT Pain Scale Pain Scale [...] Last Use/Year : 1965 LOYDA LEE LPN - 10/30/2016 13:29 CDT Caffeine Use Grid Caffeine Use : Current Type : Coffee, Soft drinks Frequency : Daily Amount : 1-2 cups Last Use : 11/01/15 LOYDA LEE LPN - 10/30/2016 13:29 CDT Recreational Drug Use Grid Drug Use : None LOYDA LEE LPN - 10/30/2016 13:29 CDT Source: [facility] POWERCHART Document Id: [id number] documented in this encounter Plan of Treatment Not on filedocumented as of this encounter Visit Diagnoses Not on filedocumented in this encounter Care Teams Supervisor Counseling And Guidance Relationship Specialty Start Date End Date Luisa Roy M.D. PCP - General 10/01/16 10/10/19 [address] [phone] documented as of this encounter
--- OUTSIDE RECORDS SUMMARY | 2022-04-01 13:51 | XMS_ITS | Encounter Summary ---
:1945 Author Organization [facility] Address [address] [place] [address] Care Team Providers Name Role Phone Unavailable Primary Care Provider Unavailable Encounter Details Date Type Department Care Team Description 06/01/2016 Hospital Encounter HX FBCV FAMILYPRA Luisa Alba M.D. [address] [place], [place] [phone] (Wo rk) Social History [...] Comments Blood Pressure 136/84 06/01/2016 9:12 AM ROTARY FURNACE OPERATOR Pulse 76 06/01/2016 9:12 AM ROTARY FURNACE OPERATOR Temperature - - Respiratory Rate 16 06/01/2016 9:12 AM ROTARY FURNACE OPERATOR Oxygen Saturation - - Inhaled Oxygen Concentration - - Weight 55.4 kg (122 lb 3.9 oz) 06/01/2016 9:12 AM ROTARY FURNACE OPERATOR Height 159 cm (5' 2.6) 06/01/2016 9:12 AM ROTARY FURNACE OPERATOR Body Mass Index 21.93 06/01/2016 9:12 AM ROTARY FURNACE OPERATOR documented in this encounter Medications at [...] Whitten M.D. 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 FAMILY HISTORY Mother is and had [...] behalf by Beryl Augustine, a trained medical services coordinator. The creation of this record is based on the scribe's personal observations and the provider's statements to them. This document has been arti cked and approved by the attending provider. Luisa Ty M.D./evan Electronically Signed By: LUISA WHITTEN MD On: 06/28/2016 04:58 PM Source: [facility] KAREEM Document Id: [id number] documented in this encounter Miscellaneous Notes Miscellaneous - Imer Alston, L.P.N. - 06/01/2016 9:16 AM CST PHQ-9 PHQ-9 Entered On: 06/01/2016 9:16 ROTARY FURNACE OPERATOR Performed On: 06/01/2016 9:16 ROTARY FURNACE OPERATOR by IMER ALSTON LPN PHQ-9 Little interest [...] 0 IMER ALSTON LPN - 06/01/2016 9:16 ROTARY FURNACE OPERATOR Source: [employer] Document Id: [id number] ROTARY FURNACE OPERATOR!12 RY FURNACE OPERATOR Miscellaneous - Imer Alston, L.P.N. - 06/01/2016 9:14 AM CST Health Assessment Health Assessment Entered On: 06/01/2016 9:16 ROTARY FURNACE OPERATOR Performed On: 06/01/2016 9:14 ROTARY FURNACE OPERATOR by IMER ALSTON LPN Health Assessment Complete Health Assessment Complete or Modified : Annual Health Assessment Annual Health Assessment Completed : Yes IMER ALSTON LPN - 06/01/2016 9:14 ROTARY FURNACE OPERATOR Nutrition Nutrition Risk Factors by History Adult : None Home Diet : Other: gluetin free diet IMER ALSTON LPN - 06/01/2016 9:14 ROTARY FURNACE OPERATOR Functional Living Situation : Home independently Current Daily Living Assistance : None IMER ALSTON LPN - 06/01/2016 9:14 ROTARY FURNACE OPERATOR Dependent Habits Exposure to Tobacco Smoke : Other: quit smoking at age 22 Smoking Status : Former smoker Tobacco 2A : Yes Tobacco Use/Currently Using : No Tobacco Use/Last 30 Days : No Tobacco Use/Last 12 months : No Tobacco Last Use/Year : 1965 Alcohol Use : Yes IMER ALSTON SYSTEM SUPPORT DEVELOPER - 06/01/2016 9:14 ROTARY FURNACE OPERATOR Caffeine Use Grid Caffeine Use : Current Type : Coffee, Soft drinks Frequency : Daily Amount : 1-2 cups Last Use : 11/01/15 IMER ASLTON SYSTEM SUPPORT DEVELOPER - 06/01/2016 9:14 ROTARY FURNACE OPERATOR Recreational Drug Use Grid Drug Use : None IMER ALSTON LPN - 06/01/2016 9:14 ROTARY FURNACE OPERATOR AUDIT Tool How Often Do You Have A Drink : Monthly or less How Many Drinks in a Day When Drinking : 1 or 2 Six or More Drinks On One Occassion : Never Audit Phase 1 Score : 1 IMER ALSTON SYSTEM SUPPORT DEVELOPER - 06/01/2016 9:14 ROTARY FURNACE OPERATOR Psychosocial Domestic Abuse Concerns : None Behavioral Health Screen/Safety Assmt : No Muslim Preference : No qualifying data available. IMER ALSTON LPN - 06/01/2016 9:14 ROTARY FURNACE OPERATOR Advance Directive Advanced Directives : No Advance Directive Additional Information : No IMER ALSTON LPN - 06/01/2016 9:14 ROTARY FURNACE OPERATOR Educ Needs Learning Style Preference Adult Grid Patient : Demonstration, Printed materials, Verbal explanation Family : None IMER ALSTON LPN - 06/01/2016 9:14 ROTARY FURNACE OPERATOR Source: [facility] POWERCHART Document Id: [id number] ROTARY FURNACE OPERATOR!45 RY FURNACE OPERATOR Miscellaneous - Imer Alston, L.P.N. - 06/01/2016 9:12 AM CST Adult Chief Underwriter Intake/History Adult Chief Underwriter Intake/History Entered On: 06/01/2016 9:14 ROTARY FURNACE OPERATOR Performed On: 06/01/2016 9:12 ROTARY FURNACE OPERATOR by IMER ALSTON [facility] Intake Chief Complaint : physical with patient [...] Mass Index : 21.93 kg/m2 IMER ALSTON [facility] 06/01/2016 9:12 ROTARY FURNACE OPERATOR General Info Information Given By : Patient Preferred Communication Mode : Verbal Languages : Ukrainian Is Patient Female and 13-50 no hysterectomy : No IMER ALSTON [facility] 06/01/2016 9:12 ROTARY FURNACE OPERATOR Subjective Pain Symptoms : Yes IMER ALSTON [facility] 06/01/2016 9:12 ROTARY FURNACE OPERATOR Pain Scale Pain Scale Verbal 0-10 : Open IMER ALSTON [facility] 06/01/2016 9:12 ROTARY FURNACE OPERATOR Pain Pain Assessment Grid Pain 1 Location : Foot Laterality : Bilateral Intensity : 2 IMER ALSTON [facility] 06/01/2016 9:12 ROTARY FURNACE OPERATOR Dependent Habits Exposure to Tobacco Smoke : Other: quit smoking at age 22 Smoking Status : Former smoker Tobacco 2A : Yes Tobacco Use/Currently Using : No Tobacco Use/Last 30 Days : No Tobacco Use/Last 12 months : No Tobacco Last Use/Year : 1965 IMER ALSTON [facility] 06/01/2016 9:12 ROTARY FURNACE OPERATOR Caffeine Use Grid Caffeine Use : Current Type : Coffee, Soft drinks Frequency : Daily Amount : 1-2 cups Last Use : 11/01/15 IMER ALSTON [facility] 06/01/2016 9:12 ROTARY FURNACE OPERATOR Recreational Drug Use Grid Drug Use : None IMER ALSTON [facility] 06/01/2016 9:12 ROTARY FURNACE OPERATOR Source: [facility] POWERCHART Document Id: [id number] ROTARY FURNACE OPERATOR!52 RY FURNACE OPERATOR documented in this encounter Plan of Treatment Not on filedocumented as of this encounter Procedures Procedure Name Priority Date/Time Associated Diagnosis Comme nts HCV AB SCRN Routine 06/01/2016 10:10 AM Results for this W/REFLEX TO HCV ROTARY FURNACE OPERATOR procedure ar e in PCR, S the results section. BASIC METABOLIC Routine 06/01/2016 10:10 AM Resul ts for this PANEL, S/P ROTARY FURNACE OPERATOR procedure are i n the results section. documented in this encounter Results (ABNORMAL) BMP (Basic Metabolic Panel) (06/01/2016 10:10 AM ROTARY FURNACE OPERATOR) athologist Signature Sodium, S 137 135 - [...] MMOLL POWERCHART HXeGFR (MDRD) 58 (L) >=60 [id number] POWERCHART eGFR Black/ >60 >=60 [id number] POWERCHART Specimen (Source) Anatomical Collection Method Collection Time Re ceived Time Location / / Volume Laterality Blood 06/01/2016 10:10 AM ROTARY FURNACE OPERATOR Luisa Roy M.D. LAB BLOOD ADD-ON Performing Organization Address City/State/ZIP Code Phon e Number POWERCHART HCV Ab w/Reflex to HCV PCR, S (medicare) (06/01/2016 10:10 AM ROTARY FURNACE OPERATOR) athologist Signature HXHCV Ab Negative Negative POWERCHART [facility] Comment: Ofenqx-us-lamrok ratio is <1.00. Test Performed by: [place] [address] Culture Room Worker: Giacomo Gatica II, M.D., Ph.D. Specimen (Source) Anatomical Collection Method Collection Time Re ceived Time Location / / Volume Laterality Blood 06/01/2016 10:10 AM ROTARY FURNACE OPERATOR Luisa Roy M.D. LAB MICROBIOLOGY - BLO OD ORDERABLES Performing Organization Address City/State/ZIP Code Phon e Number POWERCHART documented in this encounter Visit Diagnoses Not on filedocumented in this encounter
--- OUTSIDE RECORDS SUMMARY | 2022-04-01 13:51 | XMS_ITS | Encounter Summary ---
:[address] [facility] Address [address] [place] [address] Care Team Providers Name Role Phone Unavailable Primary Care Provider Unavailable Encounter Details Date Type Department Care Team Description 08/17/2014 Hospital Encounter HX [facility] FBCV Oc Barnett, ORION, C.N.P. [address] [place], [place] [phone] (Wo rk) Social History [...] ORION, C.N.P. - 08/17/2014 10:42 AM CDT [id number] CHIEF COMPLAINT/REASON FOR VISIT Vaginitis. HISTORY OF [...] her on Wednesday, either at home at [phone] or on her cell at [phone] those results. She is planning a trip on Wednesday and would like to be comfortable for that long road trip out of state so I would like to get her the results before she leaves town on Wednesday. At this point, she has no additional concerns or questions. Oc Zafar CNP/rolando Electronically Signed By: OC ZAFAR RN, CNP On: 08/20/2014 08:34 AM Source: [facility] MHSDOLBEYNONRADSYS Document Id: [id number] documented in this encounter Miscellaneous Notes Telephone Encounter - Conversion, Historical Provider Ser - 08/20/2014 2:34 PM CDT *Phone Message/Oc Zafar Document Contains Addenda Addendum by OC ZAFAR RN, CNP on 21 Aug 2014 [...] *Phone Message/Oc Zafar From: LISSETTE ASHLEY ( [place] Program Proposals Coordinator) To: FB Obstetrics/Gynecology Nurse; Sent: 08/20/2014 14:34:06 CDT Subject: [...] Then she needs to drive in to [place] from [place] to continuous pickling line pickler her prescription so she needs to know the results soon. B A R Please call patient back at [phone] to advise. Advice/Action: Source used: ( ) [...] back cell phone number ( ) Source: [facility] [employer] Document Id: [id number] Miscellaneous - Oc Zafar, WHEEL ALIGNMENT MECHANIC, C.N.P. - 08/17/2014 11:16 AM CDT Ambulatory Patient Summary [address] [id number] Visit Information Name: ISADORA BACK [facility] Number: [id number] Current Date: 08/17/2014 11:16:15 Physicians Attending Provider: OC ZAFAR RN [facility] Primary Care Provider: LUI ALVARADO MD ISADORA [...] three times a day New Routed to [facility] [address] [place] [address] Stop Taking the Following Medications: Medication list [...] appointment detail needed. Your Goals/Additional instructions: Source: [facility] POWERCHART Document Id: [id number] Miscellaneous - Oc Zafar APRN, C.N.P. - 08/17/2014 11:16 AM CDT Ambulatory Discharge Medication List [facility] [address] [place] [id number] Visit Information Name: ISADORA BACK [facility] Number: [id number] Visit Date: 08/17/2014 11:16:13 Attending Provider: OC ZAFAR RN BRANCH SERVICE LEADER Primary Care Provider: LIU ALVARADO MD ISADORA BACK has been given [...] three [facility] a [facility] [address] [place] [address] Stop Taking the Following Medications: Medication list [...] emergency. Electronically Signed By: OC ZAFAR RN BRANCH SERVICE LEADER Signed On:17-AUG-2014 11:16:10 Additional Information: Source: [facility] POWERCHART Document Id: [id number] Miscellaneous - Yves Gamez R.N. - 08/17/2014 10:51 AM CDT Adult Parts Sales Counterperson Intake/History Adult Parts Sales Counterperson Intake/History Entered On: 08/17/2014 10:51 CDT Performed [...] 08/17/2014 10:51 CDT General Info Languages : Bahraini Is Patient Female and 13-50 no hysterectomy [...] someone with Ebola : No YVES CHAVEZ Vy - 08/17/2014 10:51 CDT Source: [facility] POWERCHART Document Id: [id number] CDT!37 documented in this encounter Plan of [...] Volume Laterality 08/17/2014 11:00 AM CDT Narrative ZULYCHART - 08/20/2014 4:01 PM CDT ADDITIONAL INFORMATION Laboratory developed test. Test Performed by: [address] [address] Skip Load Driver: Giacomo Gatica II, M.D., Ph.D. Oc Zafar APRN C.N.PElda LAB HISTORICAL ORDERS Performing Organization Address City/State/ZIP Code Phon e Number POWERCHART HX-Ureaplasma Urea PCR (08/17/2014 11:00 AM CDT) Patholo gist Method Time Signature Ureaplasma Negative POWERCHART urealyticum PCR Specimen (Source) Anatomical Collection Method Collection Time Re ceived Time Location / / Volume Laterality 08/17/2014 11:00 AM CDT Oc Zafar APRN, C.N.P. LAB HISTORICAL ORDERS Performing Organization Address City/[facility]/ZIP Code Phon e Number POWERCHART HX-Ureapl PCR Src (08/17/2014 11:00 AM CDT) athologist Signature HXUreapl PCR Vagina POWERCHART [facility] Specimen (Source) Anatomical Collection Method Collection Time Re ceived Time Location / / Volume Laterality 08/17/2014 11:00 AM CDT Oc Zafar APRN, C.N.P. LAB HISTORICAL ORDERS Performing Organization Address [facility]/ZIP Code Phon e Number POWERCHART Wet Prep Exam, Urogenital (08/17/2014 11:00 AM CDT) athologist Signature HXWet Prep POWERCHART HXFinal No yeast, POWERCHART Trichomonas , clue cells, or sperm seen. Specimen (Source) Anatomical Collection Method Collection Time Re ceived Time Location / / Volume Laterality Vagina 08/17/2014 11:00 AM CDT Oc Zafar APRN, C.N.P. LAB MICROBIOLOGY - GENE RAL ORDERABLES Performing Organization Address City/[facility]/ZIP Code Phon e Number POWERCHART documented in this encounter Visit Diagnoses Not on filedocumented in this encounter
--- OUTSIDE RECORDS SUMMARY | 2022-04-01 13:51 | XMS_ITS | Encounter Summary ---
:1945 Author Organization [facility] Address [address] [place] [address] Care Team Providers Name Role Phone Unavailable Primary Care Provider Unavailable Encounter Details Date Type Department Care Team Description 09/17/2014 Hospital Encounter HX [facility] FBHB FAMILYPRA Etta Jamil M.D. [address] [place], [place] [address] (Wo rk) Social History [...] # 6 tab(s), 0 Refill(s), Acute, [facility] OV Est Pt Level 3 - [address] - 15 min Rhinitis, Allergic SHe does not wish to use antihistamines. If she persists, or we can firmly establish taht her allergies trigger bronchospasm or even asthma, we should consider singulair at some future point. Ordered: azithromycin, 2 tablets on day 1, then 1 tablet on days 2-5, PO, As Directed, x 5 day(s), # 6 tab(s), 0 Refill(s), Acute, [facility] OV Est Pt Level 3 - [address] - 15 min Electronically Signed By: JOSE G JAMIL MD On: 09/17/2014 04:42 PM Source: [facility] [employer] Document Id: [id number] documented in this encounter Nursing Notes Jose [...] will help loosen secretions in the lungs. Qquz-skt-zpzboit cough medicines that contain dextromethorphan (such as [...] ear pain or a stiff neck ?? 4917-2550 [place] [address]. All rights reserved. This information is not intended as a substitute for professional medical care. Always follow your healthcare professional's instructions. This document has images extracted. Please consider using [employer] for all your patient education needs. Source: [facility] POWERCHART Document Id: [id number] Jose G Jamil M.D. - 09/17/2014 4:28 [...] will help loosen secretions in the lungs. Siec-isx-fvznugd cough medicines that contain dextromethorphan (such as [...] ear pain or a stiff neck ?? 3649-6092 Malathi [facility], [address] [place] [address], [place] [address]. All rights reserved. This information is not intended as a substitute for professional medical care. Always follow your healthcare professional's instructions. This document has images extracted. Please consider using [employer] for all your patient education needs. Source: [facility] [employer] Document Id: [id number] Jose G Jamil M.D. - 09/17/2014 4:28 PM CDT Ambulatory Patient Education The following Patient Education Materials have been given to the patient: Patient Education Materials: Source: [facility] [employer] Document Id: [id number] documented in this encounter Miscellaneous Notes Miscellaneous - Jose G Jamil M.D. - 09/17/2014 4:29 PM CDT Ambulatory Patient Summary [address] [id number] Visit Information Name: ISADORA BACK [facility] Number: [id number] Current Date: 09/17/2014 16:29:09 Physicians [...] directed x 5 day(s) New Routed to [facility] [address] [place] [address] fluticasone (Flovent HFA 110 mcg/inh inhalation aerosol) [...] will help loosen secretions in the lungs. Rndr-jzx-huadbpi cough medicines that contain dextromethorphan (such as [...] ear pain or a stiff neck ?? 1904[address] [facility], [address] [place] [address], [place] [address]. All rights reserved. This information is not intended as a substitute for professional medical care. Always follow your healthcare professional's instructions. Your Goals/Additional instructions: This document has images extracted. Please consider using [employer] for all your patient education needs. Source: [facility] POWERCHART Document Id: [id number] Miscellaneous - Jose G Jamil M.D. - 09/17/2014 4:29 PM CDT Ambulatory Discharge Medication List [address] [place], [place] [phone] Visit Information Name: ISADORA BACK [facility] Number: [id number] Visit Date: 09/17/2014 16:29:08 Attending [...] directed x 5 day(s) New Routed to [facility] [address] [place] [address] fluticasone (Flovent HFA 110 mcg/inh inhalation aerosol) [...] MD Signed On:17-SEP-2014 16:28:35 Additional Information: Source: [facility] POWERCHART Document Id: [id number] Miscellaneous - Iman Burden L.P.N. - 09/17/2014 4:05 PM CDT Adult Button Machine Operator Intake/History Adult Button Machine Operator Intake/History Entered On: 09/17/2014 16:08 CDT Performed [...] Information Given By : Patient Languages : Luxembourgish Is Patient Female and 13-50 no hysterectomy [...] BURDEN LPN - 09/17/2014 16:05 CDT [facility] Document Id: [id number] CDT!40 documented in this encounter Plan of Treatment Not on filedocumented as of this encounter Visit Diagnoses Not on filedocumented in this encounter
--- OUTSIDE RECORDS SUMMARY | 2022-04-01 13:51 | XMS_ITS | Encounter Summary ---
:1945 Author Organization [facility] Address [address] [place] [address] Care Team Providers Name Role Phone Luisa Roy M.D. Primary Care Provider [phone] Reason for Visit Reason Comments Rash x 2 weeks located behind eliud ateral ears Ear Fullness noted since recovery from t he flu Encounter Details Date Type Department Care Team Description 05/18/2017 Office Visit Department of Family [place] [facility] ea Corporis (Primary Medicine, Luisa Connolly, Florina) Clinic, in [place] [address] [place] [phone] Social History Tobacco Use Types [...] Comments Blood Pressure 130/78 05/18/2017 11:52 AM METALWORKER Pulse 76 05/18/2017 11:52 AM METALWORKER Temperature 36.9 ??C (98.4 ??F) 05/18/2017 11:52 AM METALWORKER Respiratory Rate 20 05/18/2017 11:52 AM METALWORKER Oxygen Saturation - - Inhaled Oxygen Concentration - - Weight 56.5 kg (124 lb 9 oz) 05/18/2017 11:52 AM METALWORKER Height 160 cm (5' 2.99) 05/18/2017 11:52 AM METALWORKER Body Mass Index 22.07 05/18/2017 11:52 AM METALWORKER documented in this encounter Progress Notes Luisa [...] Tinea corporis. I recommended that she use odcl-hlm-cspnrsw Lamisil. Discussed that it may take 2-4 weeks to resolve. Follow up The patient will contact the clinic with any new or worsening symptoms. This document serves as a record of services personally performed by Luisa Ireland MD. It was created on their behalf by Beryl Augustine, a trained medical billing and coding instructor. The creation of this record is based on the scribe's personal observations and the provider's statements to them. This document has been arti cked and approved by the attending provider. LWORKER documented in this encounter Plan of Treatment Not on filedocumented as of this encounter Visit Diagnoses Diagnosis Tinea Corporis - Primary documented in this encounter Care Teams Display Maker Relationship Specialty Start Date End Date Luisa Roy M.D. PCP - General 10/01/16 10/10/19 [address], [place] [address] documented as of this encounter
--- OUTSIDE RECORDS SUMMARY | 2022-04-01 13:51 | XMS_ITS | Encounter Summary ---
:1945 Author Organization [facility] Address [address] [place] [address] Care Team Providers Name Role Phone Unavailable Primary Care Provider Unavailable Encounter Details Date Type Department Care Team Description 11/01/2015 Hospital Encounter HX [facility] FBKF FAMILYPRA Yessica Mosquera APRN, C.N.P., M.S.N. [address] [place] [phone] (Wo rk) Social History Tobacco Use Types [...] mouth. documented as of this encounter Progress Yessica Bunch APRN, HAND PLATE STACKER - 11/01/2015 7:58 AM CDT [id number] CHIEF COMPLAINT/REASON FOR VISIT Vaginal pain. HISTORY [...] and patient will follow up as discussed. Nava CadenaP,Chery./rolando Electronically Signed By: YESSICA MOSQUERA CNP On: 11/23/2015 05:17 PM Source: [facility]A Document Id: [id number] documented in this encounter Miscellaneous Notes Miscellaneous - Marco Hernandez, AngelPEldaN. - 11/01/2015 8:06 AM CDT Adult Industrial Security Analyst Intake/History Adult Industrial Security Analyst Intake/History Entered On: 11/01/2015 8:07 CDT Performed [...] Preferred Communication Mode : Verbal Languages : Danish Is Patient Female and 13-50 no hysterectomy [...] HERNANDEZ LPN - 11/01/2015 8:06 CDT [facility] Document Id: [id number] CDT!44 documented in this encounter Plan of Treatment Not on filedocumented as of this encounter Visit Diagnoses Not on filedocumented in this encounter
--- OUTSIDE RECORDS SUMMARY | 2022-04-01 13:51 | XMS_ITS | Encounter Summary ---
:1945 Author Organization [facility] Address [address] [place] [address] Care Team Providers Name Role Phone Unavailable Primary Care Provider Unavailable Encounter Details Date Type Department Care Team Description 06/13/2015 Hospital Encounter HX [facility] FAMILY[facility] Channing Preciado P.A.-C. [address] [place] [address] (Wo rk) Social History Tobacco [...] Comments Blood Pressure 138/78 06/13/2015 2:06 PM PRINT CUTTER Pulse 76 06/13/2015 2:06 PM PRINT CUTTER Temperature - - Respiratory Rate 16 06/13/2015 2:06 PM PRINT CUTTER Oxygen Saturation - - Inhaled Oxygen Concentration - - Weight 55.4 kg (122 lb 2.2 oz) 06/13/2015 2:06 PM PRINT CUTTER Height 159 cm (5' 2.6) 06/13/2015 2:06 PM PRINT CUTTER Body Mass Index 21.91 06/13/2015 2:06 PM PRINT CUTTER documented in this encounter Medications at [...] Preciado P.A.-C. - 06/13/2015 2:00 PM CST [id number] CHIEF COMPLAINT/REASON FOR VISIT Pharyngitis. HISTORY OF [...] PRECIADO PA-C On: 06/14/2015 08:22 AM Source: [facility] MHSDOLBEYNONRADSYS Document Id: [id number] T CUTTER documented in this encounter Miscellaneous Notes Telephone Encounter - Conversion, Historical Provider Ser - 07/04/2015 2:52 PM CDT *Phone Message- beka Document Contains Addenda Addendum by LOYDA LEE LPN on July 04, 2015 16:28:25 CDT notified Isadora that the referral was sent to [facility] Addendum by LUI ALVARADO MD on July 04, 2015 16:20:48 CDT From: LUI ALAVRADO [facility]; Sent: 07/04/2015 16:20:48 CDT Subject: RE: *Phone Message- beka [facility]. Addendum by LOYDA LEE LPN on July 04, 2015 14:57:23 CDT From: LOYDA LEE LPN ( [facility] Nurse) To: LUI ALVARADO MD; Sent: 07/04/2015 14:57:23 CDT Subject: FW: *Phone Message- beka Addendum by LOYDA LEE LPN on July 04, 2015 14:57:15 CDT would like referral to [facility] regarding neck pain which is starting to give her headaches again in the morning From: RODOLFO BAUM ([facility] 2W Nurse) To: MARCIO Ireland Nurse; Sent: 07/04/2015 14:52:06 CDT Subject: *Phone Message- beka Caller is: ( s ) Patient ( ) Mother ( ) Father ( ) Spouse ( ) Daughter ( ) Son ( ) Pharmacy ( ) Other: Physician: Patient MRN #: Reason for Call: Message: would like a call for referal to [facility] physical therapy, please call to discuss [phone] or cell [phone] Advice/Action: Source used: ( ) Verbalizes understanding [...] back cell phone number ( ) Source: [facility] POWERCHART Document Id: [id number] Miscellaneous - Adele Preciado PBebeto. - 06/13/2015 2:25 PM CST Ambulatory Patient Summary [address] [id number] Visit Information Name: ISADORA BACK [facility] Number: [id number] Current Date: 06/13/2015 14:25:01 Physicians Attending Provider: ADELE PRECIADO PA-C Primary Care Provider: LUI ALVARADO MD ILEANA BACKA BOYD has been given the following list [...] day x 10 day(s) New Routed to [facility] [address] [place] [address] fluticasone (Flovent HFA 110 mcg/inh inhalation aerosol) [...] if you dont have one. Go to [email or web address] and click on Create Your Account. Then, follow the directions to complete the online form. Youll be asked for your [facility] number which you can find at the top of this document. Your Goals/Additional instructions: Source: [facility] POWERCHART Document Id: [id number] T CUTTER Miscellaneous - Adele Preciado P.A.-C. - 06/13/2015 2:25 PM CST Ambulatory Discharge Medication List [address] [id number] Visit Information Name: ISADORA BACK [facility] Number: [id number] Visit Date: 06/13/2015 14:24:59 Attending Provider: ADELE PRECIADOC Primary Care Provider: LUI ALVARADO MD ISADORA [...] day x 10 day(s) [facility] [address] [place] [address] fluticasone (Flovent HFA 110 mcg/inh inhalation aerosol) [...] PA-C Signed On:13-JUN-2015 14:17:28 Additional Information: Source: [facility] POWERCHART Document Id: [id number] T CUTTER Miscellaneous - Tanja Hernandez, L.P.N. - 06/13/2015 2:06 PM CST Adult Commercial Lines Manager Intake/History Adult Commercial Lines Manager Intake/History Entered On: 06/13/2015 14:10 PRINT CUTTER Performed On: 06/13/2015 14:06 PRINT CUTTER by TANJA HERNANDEZ LPN Intake Chief Complaint [...] kg/m2 TANJA HERNANDEZ LPN - 06/13/2015 14:06 PRINT CUTTER General Info Information Given By : Patient Preferred Communication Mode : Verbal Languages : Slovak Is Patient Female and 13-50 no hysterectomy : No TANJA HERNANDEZ LPN - 06/13/2015 14:06 PRINT CUTTER Subjective Pain Symptoms : Yes TANJA HERNANDEZ LPN 06/13/2015 14:06 PRINT CUTTER Pain Scale Pain Scale Verbal 0-10 : Open TANJA HERNANDEZ LPN 06/13/2015 14:06 PRINT CUTTER Pain Pain Assessment Grid Pain 1 Location : Throat Laterality : Bilateral Intensity : 8 Duration : 1 day TANJA HERNANDEZ LPN 06/13/2015 14:06 PRINT CUTTER Dependent Habits Exposure to Tobacco Smoke : Other: quit smoking at age 22 Smoking Status : Former smoker Tobacco 2A : Yes Tobacco Use/Currently Using : No Tobacco Use/Last 30 Days : No Tobacco Use/Last 12 months : No Tobacco Last Use/Year : 1967 Alcohol Use : Yes TANJA HERNANDEZ LPN 06/13/2015 14:06 PRINT CUTTER Caffeine Use Grid Caffeine Use : Current Type : Coffee, Soft drinks Frequency : Daily Amount : 4 Last Use : 06/13/2015 TANJA HERNANDEZ LPN 06/13/2015 14:06 PRINT CUTTER Recreational Drug Use Grid Drug Use : None TANJA HERNANDEZ LPN 06/13/2015 14:06 PRINT CUTTER Source: [facility] POWERCHART Document Id: [id number] PRINT CUTTER!55 T CUTTER documented in this encounter Plan of Treatment Not on filedocumented as of this encounter Visit Diagnoses Not on filedocumented in this encounter
--- OUTSIDE RECORDS SUMMARY | 2022-04-01 13:51 | XMS_ITS | Encounter Summary ---
:1945 Author Organization [facility] Address [address] [place] [address] Care Team Providers Name Role Phone Luisa Roy M.D. Primary Care Provider [phone] Reason for Visit Reason Comments Med Refill Encounter Details Date Type Department Care Team Description 05/24/2017 Refill Department of Family Medicine, Beka Hayes Med Refill [facility], [place] Luisa Aguilar M.D. [place] [address] [place] [address] [place] [address] [phone] Social History Tobacco Use Types Packs/Day Years [...] on filedocumented in this encounter Care Teams Lang Interpreter Relationship Specialty Start Date End Date Luisa Roy M.D. PCP - General 10/01/16 10/10/19 [address], [place] [phone] documented as of this encounter
--- OUTSIDE RECORDS SUMMARY | 2022-04-01 13:51 | XMS_ITS | Encounter Summary ---
:1945 Author Organization [facility] Address [address] [place] [address] Care Team Providers Name Role Phone Luisa Roy M.D. Primary Care Provider [phone] Reason for Visit Reason Comments URI states not feeling any heriberto r ears/neck states may feel a little better not completely Encounter Details Date Type Department Care Team Description 05/06/2017 Office Visit Department of [facility] Tigre Preciado As thma ([facility]) (Primary Dx); Medicine in [place], P.A.-. Otitis Media Acute Left [place] [address] [facility] [address] [place] [phone] Social History Tobacco Use Types Packs/Day Years [...] Comments Blood Pressure 138/76 05/06/2017 1:00 PM VICE PRESIDENT PAYER Pulse 82 05/06/2017 1:00 PM VICE PRESIDENT PAYER Temperature 36.5 ??C (97.7 ??F) 05/06/2017 1:00 PM VICE PRESIDENT PAYER Respiratory Rate 16 05/06/2017 1:00 PM VICE PRESIDENT PAYER Oxygen Saturation 96% 05/06/2017 1:00 PM VICE PRESIDENT PAYER Inhaled Oxygen Concentration - - Weight 56.2 kg (123 lb 14.4 oz) 05/06/2017 1:00 PM VICE PRESIDENT PAYER Height - - Body Mass Index 21.95 03/08/2017 4:39 PM VICE PRESIDENT PAYER documented in this encounter Progress Notes Tigre Preciado, PVernell.ArtC. - 05/06/2017 1:00 PM CST CHIEF COMPLAINT [...] productive of a thick mucus OBJECTIVE Vitals: 01/18/18 1300 BP: 138/76 BP Location: Left arm [...] her as per 1. Tigre Preciado P.A.-C. PRESIDENT PAYER documented in this encounter Plan of Treatment Not on filedocumented as of this encounter Visit Diagnoses Diagnosis Asthma (HCC) - Primary Otitis Media Acute Left documented in this encounter Care Teams Operations Dispatcher Relationship Specialty Start Date End Date Luisa Roy M.D. PCP - General 10/01/16 10/10/[address] [address] documented as of this encounter
--- OUTSIDE RECORDS SUMMARY | 2022-04-01 13:51 | XMS_ITS | Encounter Summary ---
:1945 Author Organization [facility] Address [address] [place] [address] Care Team Providers Name Role Phone Unavailable Primary Care Provider Unavailable Encounter Details Date Type Department Care Team Description 11/14/2014 Hospital Encounter HX [facility] FB NURSE Jagruti Benavides M.D. [address] , [address] [place], [place] [address] (Wo rk) Social History [...] HERNANDEZ LPN On: 11/14/2014 03:41 PM Source: [facility] POWERCHART Document Id: [id number] documented in this encounter Plan of Treatment Not on filedocumented as of this encounter Visit Diagnoses Not on filedocumented in this encounter
--- OUTSIDE RECORDS SUMMARY | 2022-04-01 13:51 | XMS_ITS | Encounter Summary ---
:1945 Author Organization [facility] Address [address] [place] [address] Care Team Providers Name Role Phone Luisa Roy M.D. Primary Care Provider [phone] Reason for Visit Reason Comments Neck Pain patient requesting referal rashida toribio physical therapy for chronic neck pain with headaches Appointment Request (Routine) - Closed Specialty Diagnoses / Procedures Referred By Contact Refer red To Contact Family Medicine Luisa Roy M.D. [address] [place] [address] Referral ID Status Reason Start Date Expiration Date Visits Requ ested Visits Authorized [id number] Closed 02/18/2017 08/17/2017 1 1 Encounter Details Date Type Department Care Team Description 03/08/2017 Office Visit Department of [facility] [place] Neck (Primary Dx); Medicine, Luisa [place]olly, [facility], in [place] Agu[place] [address] [address] [phone] Social History Tobacco Use Types Packs/Day Years [...] Comments Blood Pressure 130/60 03/08/2017 4:39 PM RESIDENT IN DIAGNOSTIC RADIOLOGY Pulse 68 03/08/2017 4:39 PM RESIDENT IN DIAGNOSTIC RADIOLOGY Temperature 36.6 ??C (97.9 ??F) 03/08/2017 4:39 PM RESIDENT IN DIAGNOSTIC RADIOLOGY Respiratory Rate 16 03/08/2017 4:39 PM RESIDENT IN DIAGNOSTIC RADIOLOGY Oxygen Saturation - - Inhaled Oxygen Concentration - - Weight 57.2 kg (125 lb 15.9 oz) 03/08/2017 4:39 PM RESIDENT IN DIAGNOSTIC RADIOLOGY Height 160 cm (5' 2.99) 03/08/2017 4:39 PM RESIDENT IN DIAGNOSTIC RADIOLOGY Body Mass Index 22.32 03/08/2017 4:39 PM RESIDENT IN DIAGNOSTIC RADIOLOGY documented in this encounter Progress Notes Beryl [...] IMPRESSION/REPORT/PLAN #1 Neck pain. Will refer to [facility] Physical Therapy for Pt. #2 Probable neuropathy. [...] behalf by Beryl Augustine, a trained medical anthropology director. The creation of this record is based on the scribe's personal observations and the provider's statements to them. This document has been arti cked and approved by the attending provider. DENT IN DIAGNOSTIC RADIOLOGY documented in this encounter Plan of Treatment Not on filedocumented as of this encounter Visit Diagnoses Diagnosis Pain Neck - Primary Spasm Muscle documented in this encounter Care Teams Director Medical Affairs Relationship Specialty Start Date End Date Luisa Roy M.D. PCP - General 10/01/16 10/10/19 [address] [place] [address] documented as of this encounter
--- OUTSIDE RECORDS SUMMARY | 2022-04-01 13:51 | XMS_ITS | Encounter Summary ---
:1945 Author Organization [facility] Address [address] [place] [address] Care Team Providers Name Role Phone Unavailable Primary Care Provider Unavailable Encounter Details Date Type Department Care Team Description 06/02/2016 Hospital Encounter HX [facility] Lui Pearson M.D. [address] [place], [place] [address] (Wo rk) Social History [...] 159 cm (5' 2.6) 06/02/2016 8:57 AM PIERCING ARTIST Body Mass Index - - documented in [...] Lui Whitten M.D. - 06/07/2016 10:25 AM PIERCING ARTIST Custom Result Letter June 07, 2016 ISADORA BACK [address] [place] [id number] Dear ISADORA BACK, Labs are unremarkable. Hepatitis [...] 9.8 06/13/2015 8.8 - 10.3 HCV Ab [facility] Negative 06/01/2016 Negative - MA Mammo Screening w/ CADD 06/02/2016 05/30/2015 FB Outside Correspondence Misc 06/04/2016 Sincerely, LUI CRONIN [address] [place] [address] Electronic Signature Electronically Signed By: LUI WHITTEN MD On: June 07, 2016 This document has images extracted. Source: [facility] POWERCHART Document Id: [id number] Electronically signed by Conversion, [facility] Ladies Suit Operator [id number] at 09/29/2016 12:06 AM CDT documented in this encounter Plan of Treatment Not on filedocumented as of this encounter Procedures Procedure Name Priority Date/Time Associated Diagnosis Comme nts BI BREAST SCREENING Routine 06/02/2016 9:22 AM Re sults for this BILATERAL PIERCING ARTIST procedure are i n the results section. documented in this encounter Results BI Breast Screening Bilateral (06/02/2016 9:22 AM PIERCING ARTIST) Anatomical Region Laterality Modality Breast Bilateral Mammography Specimen (Source) Anatomical Collection Method Collection Time Re ceived Time Location / / Volume Laterality 06/02/2016 9:22 AM PIERCING ARTIST Addenda Addendum by Provider, Jacquelyn Riggs 06/02/2016 9:22 AM PIERCING ARTIST RAD^^^OW MA Mammo Screening w ??CADD 06/02/2016 09:22:32 Impressions 06/02/2016 12:54 PM PIERCING ARTIST Negative. No mammographic findings of malignancy. ?? RECOMMENDATIONS: Annual screening mammog ana. ?? BI-RADS ASSESSMENT: CODE: 1-NEGATIVE Full field digital mammography is used a nd Computer Aided Detection is performed on the digital mammogram image s. LETTER SENT: L1/2 - negative screen Narrative 06/02/2016 12:54 PM PIERCING ARTIST EXAM: MA Mammo Screening w/ CADD INDICATION: Screening. ? COMPARISON: dating back to 2007 DENSITY: b. There are scattered areas of fibroglandular density. ?? FINDINGS: No findings of malignancy. No significant change since prior exams. Procedure Note Salo Morris M.D. / ProviderCharlotte M.D. - 10/05/2016 EXAM: ME Mammo Screening w/ CADD INDICATION: Screening. COMPARISON: [...] SENT: L1/2 - negative screen Tayler Long(R), R.TElda(R)(M) IMG BI PROCEDURES documented in this encounter Visit Diagnoses Not on filedocumented in this encounter
--- OUTSIDE RECORDS SUMMARY | 2022-04-01 13:51 | XMS_ITS | Encounter Summary ---
:1945 Author Organization [facility] Address [address] [place] [address] Care Team Providers Name Role Phone Luisa Roy M.D. Primary Care Provider [phone] Encounter Details Date Type Department Care Team Description 03/08/2017 Orders Only Department of Family [place] [facility] Mammogram Medicine, Luisa Connolly Average Risk Patient Clinic, in [place]qu[place] Aguilar (Primary Dx) [place] [address] [place] [address] Social History Tobacco Use Types Packs/Day [...] BI Breast Screening Bilateral (06/02/2017 11:02 AM FOOD SERVICE MANAGER) Anatomical Region Laterality Modality Breast Bilateral Mammography Specimen (Source) Anatomical Collection Method Collection Time Re ceived Time Location / / Volume Laterality 06/02/2017 1:18 PM FOOD SERVICE MANAGER Impressions 06/02/2017 1:19 PM FOOD SERVICE MANAGER IMPRESSION: ??Negative. RECOMMENDATION: ??Annual Screening Mammo gram ASSESSMENT: ??BI-RADS: 1: Negative. Narrative 06/02/2017 1:19 PM FOOD SERVICE MANAGER EXAM: ??BI BREAST SCREENING BILATERAL Current study was evaluated with a [employer] [place] [employer] Aided Detection (CAD) system. INDICATION: ??Screening mammogram. COMPARISON: ??Prior exams were available for comparison. DENSITY: ??c. The breast(s) are heteroge neously dense, which may obscure small masses. FINDINGS: ??No mammographic findings of malignancy. Procedure Note Sebastian Armstrong M.D. - 06/02/2017Forma tting of this note might be different from the original. EXAM: BI BREAST SCREENING BILATERAL Current study was evaluated with a [employer] [place] [employer] Aided Detection (CAD) system. INDICATION: Screening mammogram. [...] Patient documented in this encounter Care Teams Sheriffs Relationship Specialty Start Date End Date Luisa Roy M.D. PCP - General 10/01/16 10/10/[address] [phone] documented as of this encounter
--- OUTSIDE RECORDS SUMMARY | 2022-04-01 13:51 | XMS_ITS | Encounter Summary ---
:1945 Author Organization [facility] Address [address] [place] [address] Care Team Providers Name Role Phone Luisa Roy M.D. Primary Care Provider [phone] Encounter Details Date Type Department Care Team Description 03/15/2017 Orders Only Department of [place] [facility], [facility], [address] [place] [address] [place] [address] [place] [address] Social History Tobacco Use [...] on filedocumented in this encounter Care Teams Metal Wire Technician Relationship Specialty Start Date End Date Luisa Roy M.D. PCP - General 10/01/16 10/10/[address] [phone] documented as of this encounter
--- OUTSIDE RECORDS SUMMARY | 2022-04-01 13:51 | XMS_ITS | Encounter Summary ---
:1945 Author Organization [facility] Address [address] [place] [address] Care Team Providers Name Role Phone Luisa Roy M.D. Primary Care Provider [phone] Reason for Visit Reason Comments URI states started Wednesday with a headache, now coughing so hard and states feels bronchial now and drainage b ack of throat Appointment Request (Routine) - Closed Specialty Diagnoses / Procedures Referred By Contact Refer red To Contact Family Medicine Referral ID Status Reason Start Date Expiration Date Visits Requ ested Visits Authorized [id number] Closed 04/29/2017 10/26/2017 1 1 Encounter Details Date Type Department Care Team Description 04/29/2017 Office Visit Department of Family Tigre Preciado [place] (Primary Dx); [facility] [place] [address] [place] [phone] Social History Tobacco Use Types Packs/Day Years [...] Sign Reading Time Taken Comments Blood Pressure 136/78 04/29/2017 12:53 PM DIRECTOR EHS Pulse 107 04/29/2017 12:50 PM DIRECTOR EHS Temperature 37.2 ??C (99 ??F) 04/29/2017 12:50 PM DIRECTOR EHS Respiratory Rate 16 04/29/2017 12:50 PM DIRECTOR EHS Oxygen Saturation 100% 04/29/2017 12:50 PM DIRECTOR EHS Inhaled Oxygen Concentration - - Weight 57.5 kg (126 lb 12.2 oz) 04/29/2017 12:50 PM DIRECTOR EHS Height - - Body Mass Index 22.46 03/08/2017 4:39 PM DIRECTOR EHS documented in this encounter Progress Notes Tigre Preciado P.A.-C. - 04/29/2017 1:00 PM CST CHIEF COMPLAINT / REASON FOR VISIT Isadora Back is a 72 y.o. female who presents for evaluation of URI (states started Wednesday with aheadache, now coughing so hard and states feels bronchial now and drainage back of throat). HISTORY OF PRESENT ILLNESS Isadora is a very pleasant 72-year-old female who has had a cough and a fever that started fairly suddenly today. OBJECTIVE Vitals: 04/29/17 1250 04/29/17 1253 BP: 138/88 136/78 BP Location: Right arm Right arm Patient Position: Sitting Sitting Cuff Size: Large Large Pulse: 107 Resp: 16 Temp: 37.2 ??C TempSrc: Temporal SpO2: 100% Weight: 57.5 kg Body mass index is 22.46 kg/m??. PHYSICAL EXAM GENERAL: Patient appears in no acute distress. ENT: TMs no erythema. Throat no erythema. NECK: No lymphadenopathy. No thyroid masses. HEART: Regular rate and rhythm. No murmurs. LUNGS: A few crackles auscultated in the right upper lobe ABDOMEN: Soft and nontender to palpation. IMPRESSION / REPORT / PLAN #1 Cough Many possible etiologies. There has been a significant amount of influenza in the community and I think it would be worthwhile to treated with Tamiflu. Because this could also be a community-acquired pneumonia I will treat her with Zithromax as well. I am going to have her push fluids and notify us ifher symptoms worsen or do not improve in the next 7-10 days #2 Influenza I am going to treated with Tamiflu. Let us know if he has any further questions or problems Tigre Preciado P.A.-C. CTOR EHS documented in this encounter Plan of Treatment Not on filedocumented as of this encounter Visit Diagnoses Diagnosis Cough Unspecified Type - Primary Influenza documented in this encounter Care Teams Wash Plant Operator Relationship Specialty Start Date End Date Luisa Roy M.D. PCP - General 10/01/16 10/10/19 [address], [place] [address] documented as of this encounter
--- OUTSIDE RECORDS SUMMARY | 2022-04-01 13:51 | XMS_ITS | Encounter Summary ---
:1945 Author Organization [facility] Address [address] [place] [address] Care Team Providers Name Role Phone Unavailable Primary Care Provider Unavailable Encounter Details Date Type Department Care Team Description 06/13/[address] [facility] LAB Lui Flores M.D. [address] [place], [place] [phone] (Wo rk) Social History [...] 159 cm (5' 2.6) 06/13/2015 8:12 AM INDOOR LANDSCAPE ARCHITECT Body Mass Index - - documented in [...] Lui Whitten M.D. - 06/13/2015 10:24 PM INDOOR LANDSCAPE ARCHITECT Custom Result Letter 13 June 2015 ISADORA BACK [address] [place] [id number] Dear ISADORA BACK, Your labs are all [...] LDL/HDL 2 06/13/2015 Sincerely, LUI CRONIN [address] [place] [address] Electronic Signature Electronically Signed By: LUI WHITTEN MD On: 13 June 2015 This document has images extracted. Source: [facility] POWERCHART Document Id: [id number] Electronically signed by Conversion, [facility] Jukebox Coin Collector [id number] at 09/12/2016 8:49 AM CDT documented in this encounter Plan of Treatment Not on filedocumented as of this encounter Procedures Procedure Name Priority Date/Time Associated Diagnosis Comme nts LIPID PANEL, S Routine 06/13/2015 8:19 AM Results for this INDOOR LANDSCAPE ARCHITECT procedure are i n the results section. BASIC METABOLIC Routine 06/13/2015 8:19 AM Result s for this PANEL, S/P INDOOR LANDSCAPE ARCHITECT procedure are i n the results section. documented in this encounter Results (ABNORMAL) BMP (Basic Metabolic Panel) (06/13/2015 8:19 AM INDOOR LANDSCAPE ARCHITECT) P athologist Signature Sodium, S 137 135 [...] POWERCHART MMOLL HXeGFR (MDRD) >60 >=60 POWERCHART [id number] eGFR >60 >=60 POWERCHART Black/ [id number] Paraguayan Specimen (Source) Anatomical Collection Method Collection Time Re ceived Time Location / / Volume Laterality Blood 06/13/2015 8:19 AM INDOOR LANDSCAPE ARCHITECT Lui Roy M.D. LAB BLOOD ADD-ON Performing Organization Address City/State/ZIP Code Phon e Number POWERCHART (ABNORMAL) Lipid Panel (06/13/2015 8:19 AM INDOOR LANDSCAPE ARCHITECT) P athologist Signature Calculated LDL 115 <=129 MGDL POWERCHART Comment: 2013 National Lipid Association recommen dations for LDL-C in adults ages 18 and up: Desirable <100 mg/dL Above desirable 100-129 mg/dL Borderline high 130-159 mg/dL High 160-189 mg/dL Very High 190 mg/dL 2014 National Lipid Association recommen dations for LDL-C in children ages 2 to 17. Acceptable <110 mg/dL Borderline High 110-129mg/dL High 130 mg/dL LDL-C >190mg/dL: The markedly elevated LDL level is suggestive of a genetic condition such as familial hypercholesterolemia(FH) or familial defective apolipoprotein B-100 (FDB). Molecular genetic t esting for FH and FDB is available iris [facility]: FH/ADH Genetic Reflex Orozco el (test ADHP). Acquired (non-genetic) causes of markedly increased LDL cholesterol include cholestatic liver disease due to the presence of LpX. If a genetic form of hypercholesterolemia is suspected, family studies including biochemical testing fo r lipids (total cholesterol,triglycerides, LDL cholesterol and HDL cholesterol) are recommended. ??Please contact the laboratory at or the on-line test catalog at [employer] for information about how to order these [...] / Volume Laterality Blood 06/13/2015 8:19 AM INDOOR LANDSCAPE ARCHITECT Lui Roy M.D. LAB BLOOD ADD-ON Performing Organization Address City/State/ZIP Code Phon e Number POWERCHART documented in this encounter Visit Diagnoses Not on filedocumented in this encounter
--- OUTSIDE RECORDS SUMMARY | 2022-04-01 13:51 | XMS_ITS | Encounter Summary ---
:1945 Author Organization [facility] Address [address] [place] [address] Care Team Providers Name Role Phone Unavailable Primary Care Provider Unavailable Encounter Details Date Type Department Care Team Description 11/07/2014 Hospital Encounter HX [facility] Manuel Gresham M.D. [address] , [address] [place], [place] [address] (Wo rk) Social History [...] documented as of this encounter Progress Notes Tanna Gresham M.D. - 11/07/2014 10:19 AM CDT [...] recommend use of 50 SPF sunscreen from [employer] or [employer] company 2 times daily to the skin when going outdoors for more than 30 minutes. PATIENT EDUCATION Ready to learn, no apparent learning barriers were identified; learning preferences include listening. Explained diagnosis and treatment plan; patient expressed understanding of the content. Tanna Gresham M.D./rolando Electronically Signed By: TANNA GRESHAM MD On: 02/18/2015 02:20 PM Source: [facility] MHSDOLBEYNONRADSYS Document Id: [id number] UNTING GENERALIST documented in this encounter Miscellaneous Notes Miscellaneous [...] Result Name Value 11/07/2014 14:49 Drm Exam Accn-[place] [id number] 11/07/2014 14:49 Drm Exam Addr[place] See Comment 11/07/2014 14:49 Drm Exam Impr[place] See Comment 11/07/2014 14:49 Drm Exam Mtrl-[place] See Comment 11/07/2014 14:49 Drm Exam Refer[place] See Comment 11/07/2014 14:49 Drm Exam Sign[place] See Comment 11/07/2014 14:49 Drm Exam Site-[place] See Comment Source: [facility] POWERCHART Document Id: [id number] Electronically signed by [facility] Protein Specialist [id number] at 09/13/2016 11:47 PM CDT Miscellaneous - Tanna Gresham M.D. - 11/12/2014 1:19 PM CDT Custom Result Letter 12 November 2014 ISADORA BACK [address] [place] [id number] Dear ISADORA BACK, During your evaluation in the Department [...] questions. Result Name Current Result Drm Exam Accn[facility] [id number] 11/07/2014 Drm Exam Addr[place] See Comment 11/07/2014 Drm Exam Impr-[place] See Comment 11/07/2014 Drm Exam Mtrl-[place] See Comment 11/07/2014 Drm Exam Refer-[place] See Comment 11/07/2014 Drm Exam Sign[facility] See Comment 11/07/2014 Drm Exam Site[place] See Comment 11/07/2014 Sincerely, TANNA GRESHAM [address] [place] [address] Electronic Signature Electronically Signed By: TANNA GRESHAM MD On: 12 November 2014 This document has images extracted. Source: [facility] POWERCHART Document Id: [id number] Electronically signed by [facility] Protein Specialist [id number] at 09/13/2016 11:47 PM CDT Miscellaneous - Tanna Gresham M.D. - 11/07/2014 7:50 PM CDT Ambulatory Patient Summary [facility] [address] [place], [place] [phone] Visit Information Name: ISADORA BACK [facility] Number: [id number] Current Date: 11/07/2014 19:50:52 Physicians [...] if you dont have one. Go to [email or web address] and click on Create Your Account. Then, follow the directions to complete the online form. Youll be asked for your [facility] number which you can find at the top of this document. Your Goals/Additional instructions: Source: [facility] POWERCHART Document Id: [id number] Miscellaneous - Tanna Gresham M.D. - 11/07/2014 7:50 PM CDT Ambulatory Discharge Medication List [address] [id number] Visit Information Name: ISADORA BACK [facility] Number: [id number] Visit Date: 11/07/2014 19:50:52 Attending [...] Signed By: Signed On: Additional Information: Source: [facility] [employer] Document Id: [id number] Miscellaneous - Rodolfo Chaudhry, R.MEldaAElda - 11/07/2014 10:49 AM CDT Adult Manager Human Capital Intake/History Adult Manager Human Capital Intake/History Entered On: 11/07/2014 10:49 CDT Performed On: 11/07/2014 10:49 CDT by RODOLFO CHAUDHRY Intake Chief Complaint : Itchy bump on left cheek x 4 weeks Height : 162 cm(Converted to: 5 ft 4 inch(es), 64 inch(es)) RODOLFO CHAUDHRY - 11/07/2014 10:49 CDT General Info Information Given By : Patient Languages : Slovak Is Patient Female and [...] Grid Drug Use : None RODOLFO CHAUDHRY 11/07/2014 10:49 CDT Source: [facility] [employer] Document Id: [id number] CDT!24 documented in this encounter Plan of [...] Time Signature HXLvl III Surg Performed POWERCHART [facility] Comment: Test Performed by: [place] [address] Biofuels Research Scientist: Giacomo Gatica II, M.D., Ph.D. Specimen Anatomical Collection Method Collection Time Receive d Time (Source) Location / / Volume Laterality Tissue 11/07/2014 2:49 PM 5 7:13 CDT AM CDT Historical Provider [facility] Performing Organization Address City/State/[facility] Code Phon e Number POWERCHART PATHOLOGY DERMPATH CONSULT, WET TISSUE (11/07/2014 2:49 PM CDT) [facility] Method Time Signature HXDrm Exam [id number] POWERCHART [facility] HXDrm Exam See Comment POWERCHART [facility] Comment: RESULT: Tanna Gresham M.D. HXDrm Exam [facility] See Comment POWERCH ART Comment: [facility] [address] [place] [id number] HXDrm Exam [facility] See Comment POWERCH ART Comment: RESULT: A. DermPath Consultatio n, Wet Tissue; left cheek: HXDrm Exam [facility] See Comment POWERCH ART Comment: A. ??Received in formalin labeled with t he patient's name and and lab eled as left cheek is a 0.3 cm in diameter skin punch biopsy exc ised to depth of 0.4 cm. ??No discrete lesion is grossly identified. T he specimen is submitted en toto in cassette A1. HXDrm Exam [facility] See Comment POWERCH ART Comment: A. ??DermPath Consultation, Wet Tissue; left cheek: ??Ruptured inflamed epidermal cyst HXDrm Exam Sign[facility] See Comment POWERCH ART Comment: RESULT: 11/12/2014 11:12 ??Interpreted by : Sloane Oliveros M.D Report electronically signed by Sloane Oliveros M.D. Transcribed by: yulissa 11/12/2014 10:20:28 Test Performed by: [place] [address] Biofuels Research Scientist: Giacomo Gatica II, M.D., Ph.D. Specimen (Source) Anatomical Collection Method Collection Time Re ceived Time Location / / Volume Laterality Tissue 11/07/2014 2:49 PM CDT Tanna Gresham M.D. LAB PATH DERM ORDERABLES Performing Organization Address City/State/ZIP Code Phon e Number POWERCHART documented in this encounter Visit Diagnoses Not on filedocumented in this encounter
--- OUTSIDE RECORDS SUMMARY | 2022-04-01 13:51 | XMS_ITS | Encounter Summary ---
:1945 Author Organization [facility] Address [address] [place] [address] Care Team Providers Name Role Phone Luisa Roy M.D. Primary Care Provider [phone] Encounter Details Date Type Department Care Team Description 02/22/2017 Abstract Department of Family Medicine, Provider, Historical [facility], in [place], [place] [address] [place] [address] [facility] [phone] Social History Tobacco Use Types Packs/Day Years [...] on filedocumented in this encounter Care Teams Bank Analyst Relationship Specialty Start Date End Date Luisa Roy M.D. PCP - General 10/01/16 10/10/[address] [address] documented as of this encounter
--- OUTSIDE RECORDS SUMMARY | 2022-04-01 13:51 | XMS_ITS | Encounter Summary ---
:1945 Author Organization [facility] Address [address] [place] [address] Care Team Providers Name Role Phone Unavailable Primary Care Provider Unavailable Encounter Details Date Type Department Care Team Description 05/30/2015 Hospital Encounter HX [facility] Lui Pearson M.D. [address] [place], [place] [phone] (Wo rk) Social History [...] 159 cm (5' 2.6) 05/30/2015 11:15 AM MARKET RESEARCH MANAGER Body Mass Index - - documented in [...] ALCANTARA LPN on 05 June 2015 09:25:51 MARKET RESEARCH MANAGER patient notified and will make appt Addendum by LUI ALVARADO MD on 04 June 2015 23:26:51 MARKET RESEARCH MANAGER From: LUI ALVARADO MD [facility]; Sent: 06/04/2015 23:26:51 MARKET RESEARCH MANAGER Subject: RE: *Phone Message Orders are in. Addendum by IMER ALCANTARA LPN on 04 June 2015 17:03:25 MARKET RESEARCH MANAGER From: IMER ALCANTARA LPN ( [facility]) To: LUI ALVARADO MD; Sent: 06/04/2015 17:03:25 MARKET RESEARCH MANAGER ! Subject: FW: *Phone Message From: DREA LIRA (MARCIO Lee Concrete Sculptor) To: MARCIO Ireland Nurse; Sent: 06/04/2015 16:55:23 MARKET RESEARCH MANAGER Subject: *Phone Message Caller is: ( x ) Patient ( ) Mother ( ) Father ( ) Spouse ( ) Daughter ( ) Son ( ) Pharmacy ( ) Other: Physician: Patient MRN #: Reason for Call: Patient is waiting for lab orders? Nothing is in the queue. Please place orders andcontact patient when she can schedule. [phone] Message: Advice/Action: Source used: ( ) Verbalizes [...] back cell phone number ( ) Source: [employer] Document Id: [id number] documented in this encounter Plan of Treatment Not on filedocumented as of this encounter Procedures Procedure Name Priority Date/Time Associated Diagnosis Comme nts BI BREAST SCREENING Routine 05/30/2015 11:58 AM R esults for this BILATERAL MARKET RESEARCH MANAGER procedure are i n the results section. documented in this encounter Results BI Breast Screening Bilateral (05/30/2015 11:58 AM MARKET RESEARCH MANAGER) Anatomical Region Laterality Modality Breast Bilateral Mammography Specimen (Source) Anatomical Collection Method Collection Time Re ceived Time Location / / Volume Laterality 05/30/2015 11:58 AM MARKET RESEARCH MANAGER Addenda Addendum by Provider, Jacquelyn Riggs 05/30/2015 11:58 AM MARKET RESEARCH MANAGER RAD^^^OW MA Mammo Screening w ??CADD 05/30/2015 11:58:50 Impressions 05/30/2015 3:43 PM MARKET RESEARCH MANAGER The breasts are heterogeneously dense, which may [...] mammogram im ages. Narrative 05/30/2015 3:43 PM MARKET RESEARCH MANAGER EXAM: MA Mammo Screening w/ CADD INDICATION: [...]
--- OUTSIDE RECORDS SUMMARY | 2022-04-01 13:51 | XMS_ITS | Encounter Summary ---
:1945 Author Organization [facility] Address [address] [place] [address] Care Team Providers Name Role Phone Unavailable Primary Care Provider Unavailable Encounter Details Date Type Department Care Team Description 05/29/2014 Hospital Encounter HX [facility]HB FAMILYPRA Lui Crockett i, M.D. [address] [place] [address] (Wo rk) Social History Tobacco [...] Comments Blood Pressure 128/82 05/29/2014 2:11 PM HYPERION ANALYST Pulse 84 05/29/2014 2:11 PM HYPERION ANALYST Temperature - - Respiratory Rate - - Oxygen Saturation - - Inhaled Oxygen Concentration - - Weight 56.5 kg (124 lb 9 oz) 05/29/2014 2:11 PM HYPERION ANALYST Height 162 cm (5' 3.78) 05/29/2014 2:11 PM HYPERION ANALYST Body Mass Index 21.53 05/29/2014 2:11 PM HYPERION ANALYST documented in this encounter Medications at Time [...] encounter Progress Notes Lui Whitten M.D. - 05/29/2014 1:53 PM CST [...] and Throat if there are further concerns. Lui Ty M.D./rolando Electronically Signed By: LUI WHITTEN MD On: 06/22/2014 08:43 AM Source: [facility] MHSDOLBEYNONRADSYS Document Id: [id number] RION ANALYST documented in this encounter Miscellaneous Notes Miscellaneous - Elda García, RMigel - 08/06/2014 2:01 PM CDT lorazepam Document Contains Addenda Addendum by JUAN MESSER on 07 August 2014 14:37:06 CDT Faxed to [facility]. Addendum by LUI WHITTEN MD on 07 August 2014 12:55:04 CDT From: LUI WHITTEN MD Sent: 08/07/2014 12:55:03 CDT Subject: RE:lorazepam Approved Order:LORazepam (lorazepam 0.5 mg oral tablet) 1 tab(s) PO Bedtime Qty: 15 tab(s) Refills: 1 Substitutions Allowed PRN Anxiety Print - [id number] Signed by LUI WHITTEN MD 08/07/2014 12:54:17 From: ELDA GARCÍA (FB [place] Medication Refill) To: LUI WHITTEN MD; Cc: MARCIO Ireland Nurse; Sent: 08/06/2014 14:01:04 CDT Subject: lorazepam On hold pending signature Order:LORazepam (lorazepam 0.5 mg oral tablet) 1 tab(s) PO Bedtime Qty: 15 tab(s) Refills: 1 Substitutions Allowed PRN Anxiety Print - [id number] on [employer] (from [id number]) in session 354 Caller is: ( ) [...] Call to Pharmacy ( ) 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 Script ( ) Mail Rxto Patient Source: [facility] POWERCHART Document Id: [id number] Electronically signed by Conversion, [facility] Side Laster Tack [id number] at 09/13/2016 9:08 PM CDT Miscellaneous - Conversion, Historical Provider Ser - 05/29/2014 2:11 PM HYPERION ANALYST Adult Medical Physics Researcher Intake/History Adult Medical Physics Researcher Intake/History Entered On: 05/29/2014 14:13 HYPERION ANALYST Performed On: 05/29/2014 14:11 HYPERION ANALYST by ELENO MORALES LPN Intake Chief Complaint [...] kg/m2 ELENO MORALES LPN - 05/29/2014 14:11 HYPERION ANALYST General Info Information Given By : Patient Languages : Yi Is Patient Female and 13-50 no hysterectomy : No ELENO MORALES [facility] - 05/29/2014 14:11 HYPERION ANALYST Subjective Pain Symptoms : No ELENO MORALES [facility] - 05/29/2014 14:11 HYPERION ANALYST Dependent Habits Tobacco Use/Currently Using : No Exposure to Tobacco Smoke : Other: quit smoking at age 22 Smoking Status : Former smoker ELENO MORAELS [facility] - 05/29/2014 14:11 HYPERION ANALYST Tobacco Use Grid Last Use : quit 1970 ELENO MORALES [facility] 05/29/2014 14:11 HYPERION ANALYST Caffeine Use Grid Caffeine Use : Current Type : Coffee, Soft drinks Frequency : Daily Amount : 4 Last Use : today ELENO MORALES [facility] 05/29/2014 14:11 HYPERION ANALYST Recreational Drug Use Grid Drug Use : None ELENO MORALES [facility] 05/29/2014 14:11 HYPERION ANALYST ID Screen Drug Resistant Organism : No Travel Within Last 21 Days : No ELENO MORALES [facility] - 05/29/2014 14:11 HYPERION ANALYST Source: [facility] POWERCHART Document Id: [id number] HYPERION ANALYST!41 documented in this encounter Plan of Treatment Not on filedocumented as of this encounter Visit Diagnoses Not on filedocumented in this encounter
--- OUTSIDE RECORDS SUMMARY | 2022-04-01 13:51 | XMS_ITS | Encounter Summary ---
:1945 Author Organization [facility] Address [address] [place] [address] Care Team Providers Name Role Phone Unavailable Primary Care Provider Unavailable Encounter Details Date Type Department Care Team Description 05/30/[address] [facility] FBHB FAMILYPRA Lui Crockett i, M.D. [address] [place] [address] (Wo rk) Social History Tobacco [...] Comments Blood Pressure 118/62 05/30/2015 10:14 AM BAGGING SALVAGER Pulse 64 05/30/2015 10:14 AM BAGGING SALVAGER Temperature - - Respiratory Rate 16 05/30/2015 10:14 AM BAGGING SALVAGER Oxygen Saturation - - Inhaled Oxygen Concentration - - Weight 55 kg (121 lb 4.1 oz) 05/30/2015 10:14 AM BAGGING SALVAGER Height 159 cm (5' 2.6) 05/30/2015 10:14 AM BAGGING SALVAGER Body Mass Index 21.76 05/30/2015 10:14 AM BAGGING SALVAGER documented in this encounter Medications at Time [...] Whitten M.D. 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 FAMILY HISTORY Mother is and had [...] appointment; [facility]. 3. Migraine headaches. Prescription for Imitrex 25 mg was renewed today, as above. 4. Follow up. The patient will contact the clinic with any new or worsening symptoms. This document serves as a record of services personally performed by Lui Ireland MD. It was created on their behalf by Beryl Augustine, a trained claim review medical director. The creation of this record is based on the scribe's personal observations and the provider's statements to them. This document has been arti cked and approved by the attending provider. Lui Ty M.D./evan Electronically Signed By: LUI WHITTEN MD On: 05/30/2015 09:16 PM Source: [facility] MHSDOLBEYNONRADSYS Document Id: [id number] ING SALVAGER documented in this encounter Nursing Notes Loyda Lee L.P.N. - 05/30/2015 12:31 PM CST script quantity gave Ketty/pharmacist verbal order for sumatriptan quantity of [address] CARRILLO Electronically Signed By: LOYDA LEE LPN On: 05/30/2015 12:32 PM Source: [facility] POWERCHART Document Id: [id number] ING SALVAGER documented in this encounter Miscellaneous Notes Miscellaneous - Lui Whitten M.D. - 05/30/2015 10:48 PM BAGGING SALVAGER Ambulatory Patient Summary [address] [id number] Visit Information Name: ISADORA BACK [facility] Number: [id number] Current Date: 05/30/2015 22:48:43 Physicians [...] if you dont have one. Go to [email or web address] and click on Create Your Account. Then, follow the directions to complete the online form. Youll be asked for your [facility] number which you can find at the top of this document. Your Goals/Additional instructions: Source: [facility] POWERCHART Document Id: [id number] ING SALVAGER Miscellaneous - Lui Whitten M.D. - 05/30/2015 10:48 PM BAGGING SALVAGER Ambulatory Discharge Medication List [address] [id number] Visit Information Name: ISADORA BACK [facility] Number: [id number] Visit Date: 05/30/2015 22:48:41 Attending [...] MD Signed On:30-MAY-2015 22:48:37 Additional Information: Source: [facility] CAS Medical SystemsCHART Document Id: [id number] ING SALVAGER Miscellaneous - Perfecto Mas C.MRobert - 05/30/2015 10:18 AM CST PHQ-9 PHQ-9 Entered On: 05/30/2015 10:18 BAGGING SALVAGER Performed On: 05/30/2015 10:18 BAGGING SALVAGER by PERFECTO MAS [facility] PHQ-9 Little interest or pleasure [...] PHQ-9 Calculated Score : [address] [facility] - 05/30/2015 10:18 BAGGING SALVAGER Source: [facility] [employer] Document Id: [id number] BAGGING SALVAGER!12 ING SALVAGER Luzcellaneous - Perfecto Mas, C.MEldaAElda - 05/30/2015 10:14 AM CST Adult Tongue Presser Intake/History Adult Tongue Presser Intake/History Entered On: 05/30/2015 10:17 BAGGING SALVAGER Performed On: 05/30/2015 10:14 BAGGING SALVAGER by PERFECTO MAS [facility] Intake Chief Complaint : Physical [...] Mass Index : 21.76 kg/m2 PERFECTO MAS [facility] - 05/30/2015 10:14 BAGGING SALVAGER General Info Information Given By : Patient Preferred Communication Mode : Verbal Languages : Ecuadorean Is Patient Female and 13-50 no hysterectomy : No PERFECTO [facility] - 05/30/2015 10:14 BAGGING SALVAGER Subjective Pain Symptoms : No PERFECTO [facility] - 05/30/2015 10:14 BAGGING SALVAGER Dependent Habits Exposure to Tobacco Smoke : Other: quit smoking at age 22 Smoking Status : Former smoker Tobacco 2A : Yes Tobacco Use/Currently Using : No Tobacco Use/Last 30 Days : No Tobacco Use/Last 12 months : No PERFECTO MAS [facility] - 05/30/2015 10:14 BAGGING SALVAGER Caffeine Use Grid Caffeine Use : Current Type : Coffee, Soft drinks Frequency : Daily Amount : 4 Last Use : today PERFECTO MAS [facility] - 05/30/2015 10:14 BAGGING SALVAGER Recreational Drug Use Grid Drug Use : None PERFECTO MAS [facility] - 05/30/2015 10:14 BAGGING SALVAGER Source: [facility] POWERCHART Document Id: [id number] BAGGING SALVAGER!42 ING SALVAGER documented in this encounter Plan of Treatment Not on filedocumented as of this encounter Visit Diagnoses Not on filedocumented in this encounter
--- OUTSIDE RECORDS SUMMARY | 2022-04-01 13:51 | XMS_ITS | Encounter Summary ---
:1945 Author Organization [facility] Address [address] [place] [address] Care Team Providers Name Role Phone Unavailable Primary Care Provider Unavailable Encounter Details Date Type Department Care Team Description 04/09/2015 Hospital Encounter HX [facility] FAMILY[facility] Lui Crockett i, M.D. [address] [place] [address] (Wo rk) Social History Tobacco [...] Comments Blood Pressure 110/54 04/09/2015 10:43 AM TAILOR'S AIDE Pulse - - Temperature - - Respiratory Rate - - Oxygen Saturation - - Inhaled Oxygen Concentration - - Weight 55.5 kg (122 lb 5.7 oz) 04/09/2015 10:43 AM TAILOR'S AIDE Height 162 cm (5' 3.78) 04/09/2015 10:43 AM TAILOR'S AIDE Body Mass Index 21.15 04/09/2015 10:43 AM TAILOR'S AIDE documented in this encounter Medications at Time [...] Whitten M.D. - 04/09/2015 10:33 AM CST [id number] CHIEF COMPLAINT/ REASON FOR VISIT Hematomas on lower left leg. HISTORY OF PRESENT ILLNESS Isadora is a 70 year old female who presents to the clinic today for hematomas on lower left leg. Isaodra misstepped while going down stairs and fell /6 and went to the local emergency room [...] behalf by Beryl Augustine, a trained medical examiner. The creation of this record is based on the scribe's personal observations and the provider's statements to them. This document has been arti cked and approved by the attending provider. Lui Ty M.D./evan Electronically Signed By: LUI WHITTEN MD On: 04/16/2015 12:26 AM Source: [facility] MHSDOLBEYNONRADSYS Document Id: [id number] OR'S AIDE documented in this encounter Miscellaneous Notes Telephone Encounter - Paula Bose R.N. - 11/01/2015 10:35 AM CDT Pharmacy calling- clotrimazole not in stock Document Contains Addenda Addendum by PAULA BOSE RN on November 05, 2015 07:58:49 CDT Noted. Addendum by ALIN CABRERA CNP on November 05, 2015 07:11:19 CDT From: ALIN CABRERA CNP [facility]: [facility]; Sent: 11/05/2015 07:11:19 CDT Subject: RE: Pharmacy calling- clotrimazole not in stock Changed to terconazole From: PAULA BOSE RN ([facility]) To: ALIN CABRERA CNP; Sent: 11/01/2015 10:35:20 CDT ! Subject: Pharmacy calling- clotrimazole not in stock Caller is: ( ) Patient ( ) Mother ( ) Father ( ) Spouse ( ) Daughter ( ) Son ( Jeff Nagel [phone] ) Pharmacy ( ) Other: Physician: Demetri [...] back cell phone number ( ) Source: [facility] POWERCHART Document Id: [id number] Electronically signed by Yfn, [facility] Electronic Assembler [id number] at 09/14/2016 9:39 AM CDT Telephone Encounter - Conversion, Historical Provider Ser - 04/16/2015 3:14 PM CST *Phone Message Document Contains Addenda Addendum by LUI WHITTEN MD on 17 April 2015 12:30:15 TAILOR'S AIDE From: LUI WHITTEN MD To: MARCIO Ireland Nurse; Sent: 04/17/2015 12:30:15 TAILOR'S AIDE Subject: RE: *Phone Message ok thanks Addendum by CARA ALSTON LPN on 17 April 2015 11:41:16 TAILOR'S AIDE From: CARA ALSTON LPN ([facility] Nurse) To: LUI WHITTEN MD; Sent: 04/17/2015 11:41:16 TAILOR'S AIDE Subject: FW: *Phone Message Addendum by CARA ALSTON LPN on 17 April 2015 11:41:05 TAILOR'S AIDE patient states she is doing much better and the bumps have gotten soft overnight. patient stats sheis feeling well and will wait a week and if still any issues will make appt too be seen at that time From: JAIR NEAL ([facility] Nurse) [facility]: [facility]; Sent: 04/16/2015 15:14:43 TAILOR'S AIDE Subject: *Phone Message Caller is: ( ) [...] back cell phone number ( ) Source: [facility] POWERCHART Document Id: [id number] Miscellaneous - Cara Alston, L.P.N. - 04/09/2015 10:47 AM CST PHQ-9 PHQ-9 Entered On: 04/09/2015 10:48 TAILOR'S AIDE Performed On: 04/09/2015 10:47 TAILOR'S AIDE by CARA ALSTON LPN PHQ-9 Little interest [...] difficult CARA ALSTON LPN - 04/09/2015 10:47 TAILOR'S AIDE Source: [facility] FACILITYVascular Closure Document Id: [id number] TAILOR'S AIDE!13 OR'S AIDE Miscellaneous - Cara Alston, L.P.N. - 04/09/2015 10:46 AM CST Health Assessment Health Assessment Entered On: 04/09/2015 10:47 TAILOR'S AIDE Performed On: 04/09/2015 10:46 TAILOR'S AIDE by CARA ALSTON LPN Health Assessment Complete Health Assessment Complete or Modified : Annual Health Assessment Annual Health Assessment Completed : Yes CARA ALSTON LPN - 04/09/2015 10:46 TAILOR'S AIDE Nutrition Nutrition Risk Factors by History Adult : None CARA ALSTON LPN - 04/09/2015 10:46 TAILOR'S AIDE Functional Living Situation : Home independently Current Daily Living Assistance : None CARA ALSTON LPN - 04/09/2015 10:46 TAILOR'S AIDE Dependent Habits Exposure to Tobacco Smoke : Other: quit smoking at age 22 Smoking Status : Former smoker Tobacco 2A : Yes Tobacco Use/Currently Using : No Tobacco Use/Last 30 Days : No Tobacco Use/Last 12 months : No CARA ALSTON LPN - 04/09/2015 10:46 TAILOR'S AIDE Caffeine Use Grid Caffeine Use : Current Type : Coffee, Soft drinks Frequency : Daily Amount : 4 Last Use : today CARA ALSTON LPN - 04/09/2015 10:46 TAILOR'S AIDE Alcohol Use : No CARA ALSTON LPN - 04/09/2015 10:46 TAILOR'S AIDE Recreational Drug Use Grid Drug Use : None CARA ALSTON LPN - 04/09/2015 10:46 TAILOR'S AIDE Psychosocial Domestic Abuse Concerns : None Behavioral Health Screen/Safety Assmt : No Gnosticist Preference : No qualifying data available. CARA ALSTON LPN - 04/09/2015 10:46 TAILOR'S AIDE Advance Directive Advanced Directives : No Advance Directive Additional Information : No CARA ALSTON LPN - 04/09/2015 10:46 TAILOR'S AIDE Educ Needs Learning Style Preference Adult Grid Patient : Demonstration, Printed materials, Verbal explanation Family : None CARA ALSTON LPN - 04/09/2015 10:46 TAILOR'S AIDE Source: [facility] [employer] Document Id: [id number] TAILOR'S AIDE!38 OR'S AIDE Miscellaneous - Cara Alston L.P.N. - 04/09/2015 10:43 AM CST Adult Clinic Md Associate Intake/History Adult Clinic Md Associate Intake/History Entered On: 04/09/2015 10:46 TAILOR'S AIDE Performed On: 04/09/2015 10:43 TAILOR'S AIDE by CARA ALSTON LPN Intake Chief Complaint [...] kg/m2 CARA ALSTON LPN - 04/09/2015 10:43 TAILOR'S AIDE General Info Information Given By : Patient Preferred Communication Mode : Verbal Languages : Uzbek Is Patient Female and 13-50 no hysterectomy : No CARA ALSTON LPN - 04/09/2015 10:43 TAILOR'S AIDE Subjective Pain Symptoms : No CARA ALSTON LPN - 04/09/2015 10:43 TAILOR'S AIDE Dependent Habits Exposure to Tobacco Smoke : Other: quit smoking at age 22 Smoking Status : Former smoker Tobacco 2A : Yes Tobacco Use/Currently Using : No Tobacco Use/Last 30 Days : No Tobacco Use/Last 12 months : No CARA ALSTON TOMBSTONE ERECTOR - 04/09/2015 10:43 TAILOR'S AIDE Caffeine Use Grid Caffeine Use : Current Type : Coffee, Soft drinks Frequency : Daily Amount : 4 Last Use : today CARA ALSTON TOMBSTONE ERECTOR - 04/09/2015 10:43 TAILOR'S AIDE Recreational Drug Use Grid Drug Use : None CARA ALSTON TOMBSTONE ERECTOR - 04/09/2015 10:43 TAILOR'S AIDE Source: [facility] F[facility]ILITYVascular Closure Document Id: [id number] TAILOR'S AIDE!40 OR'S AIDE documented in this encounter Plan of Treatment Not on filedocumented as of this encounter Visit Diagnoses Not on filedocumented in this encounter Additional Health Concerns Assessment Noted Time PHQ-9 Depression Total Score: 4 04/09/2015 10:47 AM CS T documented as of this encounter
--- OUTSIDE RECORDS SUMMARY | 2022-04-01 13:51 | XMS_ITS | Encounter Summary ---
:1945 Author Organization [facility] Address [address] [place] [address] Care Team Providers Name Role Phone Unavailable Primary Care Provider Unavailable Encounter Details Date Type Department Care Team Description 09/04/2016 Hospital Encounter HX [facility] Sabine Alvarado M.D. [address] [place], [place] [phone] (Wo rk) Social History [...] Zapata M.D. - 09/04/2016 9:28 AM CDT [id number] HISTORY OF PRESENT ILLNESS sIadora is a very pleasant 71-year-old female who I am seeing in consultation today in regard to a right distal radius fracture. She states she fell 8 days ago while running after her and she tripped on a step. She landed on her outstretched right upper extremity. She was seen at [facility] and her x-rays demonstrated distal radius fracture. [...] ZAPATA MD On: 09/04/2016 10:51 AM Source: [facility] MHSDOLBEYNONRADSYS Document Id: [id number] documented in this encounter Miscellaneous Notes Miscellaneous - Sabine Zapata M.D. - 09/04/2016 9:58 AM CDT Ambulatory Patient Summary [facility] [address] [place], [place] [id number] Visit Information Name: ISADORA BACK [facility] Number: [id number] Current Date: 09/04/2016 09:58:01 Physicians Attending Provider: SABINE ZAPATA MD Primary Care Provider: LUI ALVARADO MD ILEANA [...] if you dont have one. Go to [email or web address] and click on Create Your Account. Then, follow the directions to complete the online form. Youll be asked for your [facility] number which you can find at the top of this document. Your Goals/Additional instructions: Source: [facility] POWERCHART Document Id: [id number] Miscellaneous - Sabine Zapata M.D. - 09/04/2016 9:58 AM CDT Ambulatory Discharge Medication List [facility] [address] [place], [place] [id number] Visit Information Name: ISADORA BACK [facility] Number: [id number] Current Date: 09/04/2016 09:58:00 Attending Provider: SABINE ZAPAAT MD Primary Care Provider: LUI ALVARADO MD [...] MD Signed On:04-SEP-2016 09:57:58 Additional Information: Source: [facility] POWERCHART Document Id: [id number] Miscellaneous - Rodolfo Jacinto C.M.A. - 09/04/2016 9:45 AM CDT Adult Funeral Arranger Intake/History Adult Funeral Arranger Intake/History Entered On: 09/04/2016 9:48 CDT Performed On: 09/04/2016 9:45 CDT by RODOLFO JACINTO [facility] Intake Chief Complaint : Right distal radius [...] Mass Index : 21.99 kg/m2 RODOLFO JACINTO [facility] - 09/04/2016 9:45 CDT General Info Information Given By : Patient Preferred Communication Mode : Verbal Languages : Armenian Is Patient Female and 13-50 no hysterectomy : No RODOLFO JACINTO [facility] - 09/04/2016 9:45 CDT Subjective Pain Symptoms : No RODOLFO JACINTO [facility] - 09/04/2016 9:45 CDT Dependent Habits Exposure to Tobacco Smoke : Other: quit smoking at age 22 Smoking Status : Former smoker Tobacco 2A : Yes Tobacco Use/Currently Using : No Tobacco Use/Last 30 Days : No Tobacco Use/Last 12 months : No Tobacco Last Use/Year : 1965 RODOLFO JACINTO [facility] - 09/04/2016 9:45 CDT Caffeine Use Grid Caffeine Use : Current Type : Coffee, Soft drinks Frequency : Daily Amount : 1-2 cups Last Use : 11/01/15 RODOLFO JACINTO [facility] - 09/04/2016 9:45 CDT Recreational Drug Use Grid Drug Use : None RODOLFO JACINTO [facility] - 09/04/2016 9:45 CDT Source: [facility] POWERCHART Document Id: [id number] CDT!35 documented in this encounter Plan of Treatment Not on filedocumented as of this encounter Visit Diagnoses Not on filedocumented in this encounter
--- OUTSIDE RECORDS SUMMARY | 2022-04-01 13:51 | XMS_ITS | Encounter Summary ---
:1945 Author Organization [facility] Address [address] [place] [address] Care Team Providers Name Role Phone Lui Roy M.D. Primary Care Provider [phone] Encounter Details Date Type Department Care Team Description 10/09/2016 Hospital Encounter HX [facility] Matt Agosto , P.A.-CElda [address] [place], [place] [phone] (Wo rk) Social History [...] Matt Vargas - 10/09/2016 9:49 AM CDT [id number] PRIMARY CARE PROVIDER Lui Ireland MD CHIEF [...] Matt Vargas P.A.-C./rolando cc: Jacquelyn Pena in [address] [place] [address]. [place] [address] Electronically Signed By: MATT VARGAS PA On: 10/12/2016 01:13 PM Source: [facility] MHSDOLBEYNGETACHEW Document Id: [id number] documented in this encounter Miscellaneous Notes Miscellaneous - Matt Vargas - 10/09/2016 11:46 AM CDT Ambulatory Patient Summary [facility] [address] [facility] [place] [id number] Visit Information Name: ISADORA BACK [facility] Number: [id number] Current Date: 10/09/2016 11:46:26 Physicians Attending Provider: MATT AVRGAS Primary Care Provider: LUI ALVARADO MD ISADORA [...] if you dont have one. Go to [email or web address] and click on Create Your Account. Then, follow the directions to complete the online form. Youll be asked for your [facility] number which you can find at the top of this document. Your Goals/Additional instructions: Source: [facility] POWERCHART Document Id: [id number] Miscellaneous - Matt Vargas - 10/09/2016 11:46 AM CDT Ambulatory Discharge Medication List [address] [id number] Visit Information Name: ISADORA BACK [facility] Number: [id number] Current Date: 10/09/2016 11:46:25 Attending Provider: MATT VARGAS Primary Care Provider: LUI ALVARADO MD FRANCIS [...] PA Signed On:09-OCT-2016 11:46:11 Additional Information: Source: [facility] POWERCHART Document Id: [id number] Miscellaneous - Yessica Donwing L.P.N. - 10/09/2016 10:23 AM CDT Adult Doughnut Machine Operator Helper Intake/History Adult Doughnut Machine Operator Helper Intake/History Entered On: 10/09/2016 10:26 CDT Performed [...] Information Given By : Patient Languages : Tamazight Is Patient Female and 13-50 no hysterectomy [...] Tobacco Last Use/Year : 1965 YESSICA DOWNING WAREHOUSE HANDLER - 10/09/2016 10:23 CDT Caffeine Use Grid Caffeine Use : Current Type : Coffee, Soft drinks Frequency : Daily Amount : 1-2 cups Last Use : 11/01/15 YESSICA DOWNING [facility] - 10/09/2016 10:23 CDT Recreational Drug Use Grid Drug Use : None YESSICA DOWNING WAREHOUSE HANDLER - 10/09/2016 10:23 CDT Source: [employer] Document Id: [id number] CDT!41 documented in this encounter Plan of [...] on filedocumented in this encounter Care Teams Band Saw Runner Relationship Specialty Start Date End Date Lui Roy M.D. PCP - General 10/01/16 10/10/19 [address] [place] [phone] documented as of this encounter
--- OUTSIDE RECORDS SUMMARY | 2022-04-01 13:51 | XMS_ITS | Encounter Summary ---
:1945 Author Organization [facility] Address [address] [place] [address] Care Team Providers Name Role Phone Unavailable Primary Care Provider Unavailable Encounter Details Date Type Department Care Team Description 08/13/2016 Hospital Encounter HX [facility] FAMILYPRA MyrEmi carrillo, DECKER OPERATOR, C.N.P. [address] [place], [place] [phone] (Wo rk) Social History [...] Clinic OV Est Pt Level 4 - 52549 - 25 min Otitis Media (OM) Serous Sukhdeep Worsening, Afrin nasal spray, 2 sprays each nostril twice daily for 5 days then discontinue. Ordered: OV Est Pt Level 4 - [address]154 - 25 min Sinusitis Maxillary Worsening, amoxicillin 875 mg, 1 tab, PO, 2xDay, x 10 days. Encourage fluids, acetaminophen or ibuprofen for fever and discomfort. Rest. Recheck if symptoms do not improve. Ordered: OV Est Pt Level 4 - 25885 - 25 min Orders: amoxicillin, 875 mg = 1 tab(s), PO, 2xDay, x 10 day(s), # 20 tab(s), 0 Refill(s), Acute, [id number] Electronically Signed By: EMI GARCIA APRN, CNP On: 08/13/2016 04:06 PM Source: [facility] Document Id: [id number] documented in this encounter Nursing Notes Emi [...] a towel soaked in hot water. Or, crm business analyst the shower and direct the hot spray onto your face. This is a good way to inhale warm water vapor and get heat on your face at the same time. (Cover your mouth and nose with your hands so you can still breathe as you do this.) ?? Use a vaporizer with products such as [employer] VapoRub (contains menthol) at night. Suck on peppermint, menthol or eucalyptus hard candies during the day. ?? An expectorant containing guaifenesin (such as Robitussin), helps to thin the mucus and promote drainage from the sinuses. ?? Xbgq-tox-zrdvnyj decongestants may be used unless a similar [...] by your healthcare provider ?? Seizure ?? [phone] [place] [address]. All rights reserved. This information is not intended as a substitute for professional medical care. Always follow your healthcare professional's instructions. This document has images extracted. Please consider using [employer] for all your patient education needs. Source: [facility] POWERCHART Document Id: [id number] documented in this encounter Miscellaneous Notes Telephone Encounter - Conversion, Historical Provider Ser - 08/31/2016 10:33 AM CDT *Phone Message/Ortho Document Contains Addenda Addendum by LUIS PALUMBO LPN on September 01, 2016 15:28:36 CDT From: LUIS PALUMBO LPN ( Orthopedic Nurse) To: MATT VARGAS; Sent: 09/01/2016 15:28:36 CDT Subject: FW: *Phone Message/Ortho Addendum by LUIS PALUMBO LPN on September 01, 2016 15:26:56 CDT Patient notified of message below. Patient states she is feeling much better and doesn't think she will need a cast. Call transferred to scheduling to make appointment with Dr. Zapata on 09/04/16 at9:45 am with Matt Vargas, PAC blocked for casting. Addendum by SABINE ZAPATA MD on September 01, 2016 14:00:09 CDT From: SABINE ZAPATA MD To: Orthopedic Nurse; Sent: 09/01/2016 14:00:09 CDT Subject: RE: *Phone Message/Ortho Will need to be seen in [place]. Can double book with me Wednesday with [...] [facility] and bring to [place] today for review by Dr. Zapata. Patient verbalizes understanding of instructions. Patient states she may not be able to bring images in until tomorrow. FYI message forwarded to Dr. Zapata. Addendum by SABINE ZAPATA MD on August 31, 2016 10:52:23 CDT From: SABINE ZAPATA MD To: Orthopedic Nurse; Sent: 08/31/2016 10:52:23 CDT Subject: RE: *Phone Message/Ortho I was not labor contractor this weekend. If she is a FB patient, then I would need her to drop off images to decide on f/up Addendum by LUIS PALUMBO LPN on August 31, 2016 10:43:42 CDT From: LUIS PALUMBO LPN ( Orthopedic Nurse) To: SABINE ZAPATA MD; Sent: 08/31/2016 10:43:42 CDT Subject: FW: *Phone Message/Ortho s- ER follow up b- Tripped and fell on steps by the [place] this weekend. Seen in the [facility] for a right distal radius fx. Told the fx is in good alignment. Placed in a splint which she removes for bathing. Was told to see the Orthopedic doctor this week. Lives in [place] and normally sees Dr. Ireland. Does not have any images or records as the ER doctor told her everything was viewable in the system. a- needs appointment r- Message forwarded to provider to review and recommend plan of care. Patient was told she may needto come in for imaging since she does not have records. From: MICHAELA CALDWELL ([address] Gunite Nozzle Operator) To: SERENA Orthopedic Nurse; Sent: 08/31/2016 10:33:11 CDT Subject: [...] of those a: Callback r: Isadora at [phone] Advice/Action: Source used: ( ) Verbalizes understanding [...] back cell phone number ( ) Source: [facility] POWERCHART Document Id: [id number] Miscellaneous - Emi Garcia APRN, C.N.P. - 08/13/2016 4:00 PM CDT Ambulatory Patient Summary [address] [id number] Visit Information Name: ISADORA BACK [facility] Number: [id number] Current Date: 08/13/2016 16:00:41 Physicians Attending Provider: EMI GARCIA APRN [facility] Primary Care Provider: LUI ALVARADO MD [...] day x 10 day(s) [facility] [address] [place], [place] [id number] cranberry (cranberry oral tablet) as needed for Urinary discomfort Misc Prescription (Misc Prescription) 1 tab, Oral, once a day Acidphollis oxymetazoline nasal (Afrin 0.05% nasal spray) 2 [place](s), Nostrils(Both), two times a day x 5 day(s)Stop after 5 days. New SUMAtriptan (Imitrex 25 mg oral tablet) 1 Tablet(s), Oral, once as needed for Migraine headache repeat after one hour if needed Routed to [facility] [address] [place] [address] Stop Taking the Following Medications: potassium citrate [...] a towel soaked in hot water. Or, crm business analyst the shower and direct the hot spray [...] and promote drainage from the sinuses. ?? ntxtb??Irrm-iga-aifgkfu decongestants may be used unless a similar [...] by your healthcare provider ?? Seizure ?? [phone] [facility], [address] [place] [address], [place] [address]. All rights reserved. This information is not [...] if you dont have one. Go to [email or web address] and click on Create Your Account. Then, follow the directions to complete the online form. Youll be asked for your [facility] number which you can find at the top of this document. Your Goals/Additional instructions: This document has images extracted. Please consider using [employer] for all your patient education needs. Source: [facility] POWERCHART Document Id: [id number] Miscellaneous - Emi Garcia APRN, C.N.P. - 08/13/2016 4:00 PM CDT Ambulatory Discharge Medication List [address] [id number] Visit Information Name: ISADORA BACK [facility] Number: [id number] Current Date: 08/13/2016 16:00:41 Attending Provider: EMI GARCIA APRN, CNP Primary Care Provider: LUI ALVARADO MD ISADORA BACK BOYD has been given [...] day x 10 day(s) [facility] [address] [place] [address] cranberry (cranberry oral tablet) as needed for Urinary discomfort Misc Prescription (Misc Prescription) 1 tab, Oral, once a day Acidphollis oxymetazoline nasal (Afrin 0.05% nasal spray) 2 Athens(s), Nostrils(Both), two times a day x 5 day(s)Stop after 5 days. New SUMAtriptan (Imitrex 25 mg oral tablet) 1 Tablet(s), Oral, once as needed for Migraine headache repeat after one hour if needed [facility] [address] [place] [address] Stop Taking the Following Medications: [...] CNP Signed On:13-AUG-2016 16:00:28 Additional Information: Source: [facility] POWERCHART Document Id: [id number] Miscellaneous - Michelle Kwong L.P.N. - 08/13/2016 3:46 PM CDT Adult Jacket Preparer Intake/History Document Has Been Updated Adult Jacket Preparer Intake/History Entered On: 08/13/2016 15:48 CDT Performed [...] Preferred Communication Mode : Verbal Languages : Indonesian Is Patient Female and 13-50 no hysterectomy [...] KWONG LPN - 08/13/2016 15:46 CDT Source: [facility] [employer] Document Id: [id number] CDT!3 documented in this encounter Plan of Treatment Not on filedocumented as of this encounter Visit Diagnoses Not on filedocumented in this encounter
--- OUTSIDE RECORDS SUMMARY | 2022-04-01 13:52 | XMS_ITS | Encounter Summary ---
:1945 Author Organization [facility] Address [address] [place] [address] Care Team Providers Name Role Phone Unavailable Primary Care Provider Unavailable Encounter Details Date Type Department Care Team Description 01/04/2013 Hospital Encounter HX NO MAPPING Nivia Trujillo A PRN, C.N.P. [address] [place], [place] [phone] (Wo rk) Social History [...]
--- OUTSIDE RECORDS SUMMARY | 2022-04-01 13:52 | XMS_ITS | Encounter Summary ---
:[address] [facility] Address [address] [place] [address] Care Team Providers Name Role Phone Unavailable Primary Care Provider Unavailable Encounter Details Date Type Department Care Team Description 06/14/2013 Hospital Encounter [facility]X [facility] FAMILYPRA Nacho Duenas, ORION, C.N.P., D. N.P. [address] [place], [place] [address] (Wo rk) Social History [...] Comments Blood Pressure 120/78 06/14/2013 10:04 AM PREVENTION RN Pulse 88 06/14/2013 10:04 AM PREVENTION RN Temperature - - Respiratory Rate 16 06/14/2013 10:04 AM PREVENTION RN Oxygen Saturation - - Inhaled Oxygen Concentration - - Weight 56.1 kg (123 lb 10.9 oz) 06/14/2013 10:04 AM PREVENTION RN Height - - Body Mass Index 20.86 04/14/2013 8:41 AM PREVENTION RN documented in this encounter Medications at Time [...] Progress Notes Abel Duenas APRN, C.N.P. - 06/14/2013 9:58 AM CST FM-LE [...] SHAFER CNP On: 07/30/2013 03:27 PM Source: [facility] MHSDOLBEYNONRADSYS Document Id: [id number] documented in this encounter Miscellaneous Notes Miscellaneous - Abel Duenas APRN, C.N.P. - 06/14/2013 2:09 PM PREVENTION RN Results Notification Document Contains Addenda Addendum by TANJA HERNANDEZ LPN on 20 June 2013 15:35:11 PREVENTION RN referral completed. Addendum by ABEL SHAFER CNP on 20 June 2013 12:35:17 PREVENTION RN From: ABEL SHAFER CNP To: MARCIO Lee [facility] Medicine Nurse; Sent: 06/20/2013 12:35:17 PREVENTION RN Show up: 06/20/2013 12:35:00 PREVENTION RN Subject: RE: Results Notification Addendum by ABEL SHAFER CNP on 20 June 2013 08:14:03 PREVENTION RN From: ABEL SHAFER CNP To: ABEL SHAFER CNP; Sent: 06/20/2013 08:14:03 PREVENTION RN Show up: 06/20/2013 08:13:00 PREVENTION RN Subject: RE: Results Notification Please minerva to [facility] for left knee pain. Addendum by TANJA HERNANDEZ LPN on 19 June 2013 16:40:04 PREVENTION RN Patient did call back. She would like a referral to [facility] in [place] for her left knee. She states they see her for her neck and they notice that the thigh muscle is stressed, causing it to pull up on the knee cap and that is causing her pain, they said with a referral they can treat her. Addendum by TANJA HERNANDEZ LPN on 16 June 2013 11:43:34 PREVENTION RN Left message to return call From: ABEL SHAFER CNP Sent: 06/14/2013 14:09:10 PREVENTION RN ! Show up: 06/14/2013 14:09:10 PREVENTION RN Subject: Results Notification Actions: Notify patient of results Reminder Comments: No space narrowing at this time. No effusion either. If pain worsens or does not improve should recheck. Results: Date Result Type Result Name 06/14/2013 11:11 Radiology XR Knee Left 2 or less views Source: [facility] POWERCHART Document Id: [id number] Miscellaneous - Abel Duenas, ORION, C.N.P. - 06/14/2013 10:31 AM PREVENTION RN Ambulatory Patient Summary [facility] [address] [place] [phone] Visit Information Name: ISADORA BACK [facility] Number: [id number] Visit Date: 06/14/2013 10:31:53 Attending [...] in case of emergency. Additional Information: Source: [facility] POWERCHART Document Id: [id number] ENTION RN Miscellaneous - Abel Duenas APRN, C.N.P. - 06/14/2013 10:31 AM PREVENTION RN Ambulatory Discharge Medication List [address] [id number] Visit Information Name: ISADORA BACK [facility] Number: [id number] Visit Date: 06/14/2013 10:31:51 Attending [...] in case of emergency. Additional Information: Source: [facility] POWERCHART Document Id: [id number] ENTION RN Miscellaneous - Tanja Hernandez, L.P.N. - 06/14/2013 10:04 AM CST Adult Badger Distiller Operator Intake/History Adult Badger Distiller Operator Intake/History Entered On: 06/14/2013 10:08 PREVENTION RN Performed On: 06/14/2013 10:04 PREVENTION RN by TANJA HERNANDEZ LPN Intake Temperature Core [...] kg TANJA HERNANDEZ LPN - 06/14/2013 10:04 PREVENTION RN General Info Information Given By : Patient Languages : Vietnamese TANJA HERNANDEZ LPN - 06/14/2013 10:04 PREVENTION RN Subjective Pain Symptoms : Yes MARY DAISYHEIDI Baker OSMAR - 06/14/2013 10:04 PREVENTION RN Pain Pain Assessment Grid Pain 1 Location : Knee (Comment: left [MARY TANJA Baker LPN 06/14/2013 10:04 PREVENTION RN] ) Intensity : 7 Duration : 2 months MARY TANJA Baker LPN - 06/14/2013 10:04 PREVENTION RN (Comment: states pain is when knee not in motion, hurts most in bed [TANJA HERNANDEZ LPN 06/14/2013 10:04 PREVENTION RN] ) Dependent Habits Tobacco Use/Currently Using : No Tobacco Use/Last 12 months : No Tobacco Use/Advised to Quit : No Exposure to Tobacco Smoke : Other: quit smoking at age 22 Smoking Status : Former smoker LACEYPHIL TANJA Baker LPN 06/14/2013 10:04 PREVENTION RN Tobacco Use Grid Last Use : quit 1970 TANJA HERNANDEZ LPN 06/14/2013 10:04 PREVENTION RN Caffeine Use Grid Caffeine Use : Current Type : Coffee, Soft drinks Frequency : Daily Amount : 4 Last Use : today TOSHIALADONNAPHIL TANJA Baker LPN 06/14/2013 10:04 PREVENTION RN Recreational Drug Use Grid Drug Use : None TANJA HERNANDEZ LPN 06/14/2013 10:04 PREVENTION RN [facility] Document Id: [id number] PREVENTION RN!43 ENTION RN documented in this encounter Plan of Treatment Not on filedocumented as of this encounter Procedures Procedure Name Priority Date/Time Associated Diagnosis Comme nts DX KNEE LEFT 1 VIEW Routine 06/14/2013 11:10 AM R esults for this PREVENTION RN procedure are i n the results section. documented in this encounter Results DX Knee Left 1 View (06/14/2013 11:10 AM PREVENTION RN) Anatomical Region Laterality Modality Lower Extremity, Knee Left Radiographic Imagi ng Specimen (Source) Anatomical Collection Method Collection Time Re ceived Time Location / / Volume Laterality 06/14/2013 11:10 AM PREVENTION RN Addenda Addendum by Provider, Jacquelyn Riggs 06/14/2013 11:10 AM PREVENTION RN RAD^^^OW XR Knee Left 2 or less views 06/14/2013 11:10:19 Addendum by Provider, Jacquelyn Riggs 06/14/2013 11:10 AM PREVENTION RN RAD^^^MA XR KNEE LEFT 2 OR LESS VIEWS 06/14/2013 11:10:00 Narrative 06/14/2013 11:08 AM PREVENTION RN Exam: ?XR Knee Left 2 or less [...] dislocation.. Ari Long(Aliya)(M) IMG DIAGNOSTIC IMAGING PROCE CARIE documented in this encounter Visit Diagnoses Not on filedocumented in this encounter
--- OUTSIDE RECORDS SUMMARY | 2022-04-01 13:52 | XMS_ITS | Encounter Summary ---
:1945 Author Organization [facility] Address [address] [place] [address] Care Team Providers Name Role Phone Unavailable Primary Care Provider Unavailable Encounter Details Date Type Department Care Team Description 02/24/2013 Hospital Encounter HX [facility] FBHB FAMILYPRA Maura Newton M.D. Social History Tobacco [...] Comments Blood Pressure 144/84 02/24/2013 3:23 PM EQUINE INTERN Pulse 70 02/24/2013 3:23 PM EQUINE INTERN Temperature - - Respiratory Rate 20 02/24/2013 3:23 PM EQUINE INTERN Oxygen Saturation - - Inhaled Oxygen Concentration - - Weight 57 kg (125 lb 10.6 oz) 02/24/2013 3:23 PM EQUINE INTERN Height - - Body Mass Index 21.72 [...] Newton M.D. - 02/24/2013 3:14 PM CST [id number] CHIEF COMPLAINT/REASON FOR VISIT Headaches, earaches. HISTORY [...] NEWTON MD On: 02/27/2013 02:30 PM Source: [facility] MHSDOLBEYNONRADSYS Document Id: [id number] NE INTERN documented in this encounter Miscellaneous Notes Miscellaneous - Conversion, Historical Provider Ser - 02/24/2013 3:23 PM EQUINE INTERN Adult Lime Sludge Mixer Intake/History Adult Lime Sludge Mixer Intake/History Entered On: 02/24/2013 15:33 EQUINE INTERN Performed On: 02/24/2013 15:23 EQUINE INTERN by KARI BURGESS Intake Chief Complaint : eyes hurt, sinus infection? drainage, right ear hurts, headaches constant. right side. Teeth hurt. Being treated for a bacterial infection by filler sifter helper. She is on Doxycycline. Onset of Symptoms [...] 57 kg KARI BURGESS - 02/24/2013 15:23 EQUINE INTERN General Info Information Given By : Patient Preferred Communication Mode : Verbal Languages : Bangladeshi KARI BURGESS - 02/24/2013 15:23 EQUINE INTERN Subjective Pain Symptoms : Yes KARI BURGESS - 02/24/2013 15:23 EQUINE INTERN Dependent Habits Tobacco Use/Currently Using : No Tobacco Use/Last 12 months : Yes Smoking Status : Former smoker KARI BURGESS - 02/24/2013 15:23 EQUINE INTERN Tobacco Use Grid Last Use : quit 1970 KARI BURGESS - 02/24/2013 15:23 EQUINE INTERN Alcohol Use : Yes KARI BURGESS - 02/24/2013 15:23 EQUINE INTERN Caffeine Use Grid Caffeine Use : Current Type : Coffee Frequency : Daily Amount : 3 Last Use : today KARI BURGESS - 02/24/2013 15:23 EQUINE INTERN Source: [facility] [employer] Document Id: [id number] EQUINE INTERN!37 documented in this encounter Plan of Treatment Not on filedocumented as of this encounter Procedures Procedure Name Priority Date/Time Associated Comments Diagnosis AUTOMATED Routine 02/24/2013 4:23 PM Results f or this DIFFERENTIAL, B EQUINE INTERN procedure ar e in the results section. CBC WITH Routine 02/24/2013 4:23 PM Results f or this DIFFERENTIAL, B EQUINE INTERN procedure ar e in the results section. CREATININE WITH Routine 02/24/2013 4:23 PM Result s for this EGFR, S/P EQUINE INTERN procedure are i n the results section. documented in this encounter Results (ABNORMAL) Automated Differential (02/24/2013 4:23 PM EQUINE INTERN) [employer] gist Method Time Signature Neutro % 56.6 34.0 - POWERCHART 71.1 Lymphocytes % 34.8 19.3 - POWERCHART 51.7 HX [place] % 6.5 4.7 - 12.5 POWERCHART HX [...] Laterality Blood 02/24/2013 4:23 PM 3 4:23 EQUINE INTERN PM EQUINE INTERN Cedrick Newton M.D. LAB BLOOD ADD-ON Performing Organization Address City/State/ZIP Code Phon e Number POWERCHART CBC with Differential (02/24/2013 4:23 PM EQUINE INTERN) P athologist Signature Leukocytes 8.5 3.4 - 10.5 POWERCHART X109L Erythrocytes 4.11 3.90 - POWERCHART 5.03 [id number] Hemoglobin 12.8 12.0 - POWERCHART 15.5 GDL Hematocrit 36.5 34.9 - POWERCHART 44.5 MCV 88.8 82.0 - POWERCHART 98.0 FL Platelet Count 333 150 - 450 POWERCHART X109L HX RDW 12.2 11.9 - POWERCHART 15.5 HXDifferential? Auto POWERCHART Specimen (Source) Anatomical Collection Method Collection Time Re ceived Time Location / / Volume Laterality Blood 02/24/2013 4:23 PM EQUINE INTERN Cedrick Newton M.D. LAB BLOOD ADD-ON Performing Organization Address City/State/ZIP Code Phon e Number POWERCHART Creatinine with eGFR (02/24/2013 4:23 PM EQUINE INTERN) P athologist Signature Creatinine 0.8 0.7 - 1.2 POWERCHART MGDL HXeGFR (MDRD) >60 MLMIN POWERCHART eGFR >60 MLMIN POWERCHART Black/ Specimen (Source) Anatomical Collection Method Collection Time Re ceived Time Location / / Volume Laterality Blood 02/24/2013 4:23 PM EQUINE INTERN Cedrick Newton M.D. LAB BLOOD ADD-ON Performing Organization Address City/State/ZIP Code Phon e Number POWERCHART documented in this encounter Visit Diagnoses Not on filedocumented in this encounter
--- OUTSIDE RECORDS SUMMARY | 2022-04-01 13:52 | XMS_ITS | Encounter Summary ---
:1945 Author Organization [facility] Address [address] [place] [address] Care Team Providers Name Role Phone Unavailable Primary Care Provider Unavailable Encounter Details Date Type Department Care Team Description 12/14/2013 Hospital Encounter HX [facility] FBHB FAMILYPRA Lui Crockett i, M.D. [address] [place] [address] (Wo rk) Social History Tobacco [...] encounter Progress Notes Lui Whitten M.D. - 12/14/2013 10:39 AM CDT [id number] CHIEF COMPLAINT/REASON FOR VISIT Medication Review. HISTORY [...] is noted that she is leaving for [place] tomorrow morning and would like to have [...] record of services personally performed by Dr. Lui Gauthier. It was created on their behalf by Yessenia Vail, a trained medical instrument cable fabricator. The creation of this record is based on the scribe's personal observations and the provider's statements to them. This document has been checked and approved by the attending provider. Lui Gauthier M.D./fito Electronically Signed By: LUI GAUTHIER MD On: 01/07/2014 09:59 PM Source: [facility] MHSDOLBEYNONRADSYS Document Id: [id number] documented in this encounter Miscellaneous Notes Miscellaneous - Conversion, Historical Provider Ser - 12/14/2013 10:52 AM CDT Adult Avionics Systems Repairer Intake/History Adult Avionics Systems Repairer Intake/History Entered On: 12/14/2013 10:55 CDT Performed [...] Information Given By : Patient Languages : Sinhala Is Patient Female and 13-50 no hysterectomy : No ELENO MORALES LPN - 12/14/2013 10:52 CDT Subjective Pain Symptoms : No ELENO MORALES [facility] - 12/14/2013 10:52 CDT Dependent Habits Tobacco Use/Currently Using : No Tobacco Use/Last 12 months : No Exposure to Tobacco Smoke : Other: quit smoking at age 22 Smoking Status : Former smoker ELENO MORALES [facility] - 12/14/2013 10:52 CDT Tobacco Use Grid Last Use : quit 1970 ELENO MORALES [facility] - 12/14/2013 10:52 CDT Caffeine Use Grid Caffeine Use : Current Type : Coffee, Soft drinks Frequency : Daily Amount : 4 Last Use : today ELENO MORALES [facility] - 12/14/2013 10:52 CDT Recreational Drug Use Grid Drug Use : None ELENO MORALES [facility] - 12/14/2013 10:52 CDT Source: [facility] [employer] Document Id: [id number] CDT!40 documented in this encounter Plan of Treatment Not on filedocumented as of this encounter Visit Diagnoses Not on filedocumented in this encounter
--- OUTSIDE RECORDS SUMMARY | 2022-04-01 13:52 | XMS_ITS | Encounter Summary ---
:1945 Author Organization [facility] Address [address] [place] [address] Care Team Providers Name Role Phone Unavailable Primary Care Provider Unavailable Encounter Details Date Type Department Care Team Description 02/28/2013 Hospital Encounter HX [facility] FAMILYPRA Nacho Duenas, ORION, C.N.P., D. N.P. [address] [place], [place] [address] (Wo rk) Social History [...] Comments Blood Pressure 118/60 02/28/2013 3:12 PM DIRECTOR MEDICAL WRITING Pulse 70 02/28/2013 3:12 PM DIRECTOR MEDICAL WRITING Temperature - - Respiratory Rate 18 02/28/2013 3:12 PM DIRECTOR MEDICAL WRITING Oxygen Saturation - - Inhaled Oxygen Concentration - - Weight 57.8 kg (127 lb 6.8 oz) 02/28/2013 3:12 PM DIRECTOR MEDICAL WRITING Height 162 cm (5' 3.78) 02/28/2013 3:12 PM DIRECTOR MEDICAL WRITING Body Mass Index 22.02 02/28/2013 3:12 PM DIRECTOR MEDICAL WRITING documented in this encounter Medications at Time [...] ORION, C.N.P. - 02/28/2013 2:58 PM CST [id number] CHIEF COMPLAINT/REASON FOR VISIT Needs to talk. [...] of the doxycycline. Patient was wondering if shernitaly needed to 200 mg at doxycycline a [...] March to follow up with Urogynecology at [facility]. She will keep this appointment. Patientwas instructed if her headache continues to let me know. Patient will follow up as needed. Patient verbalizes understanding and agrees with plan of care. Abel Shafer CNP/marlene Electronically Signed By: ABEL SHAFER CNP On: 03/19/2013 10:58 AM Source: [facility] MHSDOLBEYNONRADSYS Document Id: [id number] CTOR MEDICAL WRITING documented in this encounter Miscellaneous Notes Miscellaneous - Abel Duenas APRN C.N.P. - 02/28/2013 3:49 PM DIRECTOR MEDICAL WRITING Ambulatory Patient Summary [address] [address] Visit Information Name: ISADORA BACK [facility] Number: [id number] Visit Date: 02/28/2013 15:49:50 [...] your provider for clarification. Additional Information: Source: [facility] POWERCHART Document Id: [id number] CTOR MEDICAL WRITING Miscellaneous - Abel Duenas APRN, C.N.P. - 02/28/2013 3:49 PM DIRECTOR MEDICAL WRITING Ambulatory Depart Summary [address] [address] Visit Information Name: ISADORA BACK [facility] Number: [id number] Visit Date: 02/28/2013 15:49:49 Attending Provider: ABEL SHAFER [facility] Primary Care Provider: LUI GAUTHIER [...] your provider for clarification. Additional Information: Source: [facility] POWERCHART Document Id: [id number] CTOR MEDICAL WRITING Miscellaneous - Conversion, Historical Provider Ser - 02/28/2013 3:12 PM DIRECTOR MEDICAL WRITING Adult Fusion Juncture Grinder Intake/History Adult Fusion Juncture Grinder Intake/History Entered On: 02/28/2013 15:16 DIRECTOR MEDICAL WRITING Performed On: 02/28/2013 15:12 DIRECTOR MEDICAL WRITING by BREE DARNELL LPN Intake Chief Complaint [...] kg/m2 BREE DARNELL LPN - 02/28/2013 15:12 DIRECTOR MEDICAL WRITING General Info Languages : Lebanese BREE DARNELL LPN - 02/28/2013 15:12 DIRECTOR MEDICAL WRITING Subjective Pain Symptoms : Yes BREE DARNELL LPN - 02/28/2013 15:12 DIRECTOR MEDICAL WRITING Pain Pain Assessment Grid Pain 1 Location : Head Laterality : Right Intensity : 3 Time Pattern : Intermittent Onset : Gradual BREE DARNELL LPN - 02/28/2013 15:12 DIRECTOR MEDICAL WRITING Dependent Habits Tobacco Use/Currently Using : No Smoking Status : Former smoker BREE DARNELL LPN - 02/28/2013 15:12 DIRECTOR MEDICAL WRITING Tobacco Use Grid Last Use : quit 1970 BREE DARNELL LPN - 02/28/2013 15:12 DIRECTOR MEDICAL WRITING Caffeine Use Grid Caffeine Use : Current Type : Coffee Frequency : Daily Amount : 3 Last Use : today BREE DARNELL LPN - 02/28/2013 15:12 DIRECTOR MEDICAL WRITING Source: [facility] POWERCHART Document Id: [id number] DIRECTOR MEDICAL WRITING!42 documented in this encounter Plan of Treatment Not on filedocumented as of this encounter Visit Diagnoses Not on filedocumented in this encounter
--- OUTSIDE RECORDS SUMMARY | 2022-04-01 13:52 | XMS_ITS | Encounter Summary ---
:1945 Author Organization [facility] Address [address] [place] [address] Care Team Providers Name Role Phone Unavailable Primary Care Provider Unavailable Encounter Details Date Type Department Care Team Description 04/26/2013 Hospital Encounter [facility]X [facility] Luisa Pearson M.D. [address] [place], [place] [phone] (Wo rk) Social History [...] 1:30 PM Re sults for this BILATERAL CLASSIFIED AD CLERK procedure are i n the results section. documented in this encounter Results BI Breast Screening Bilateral (04/26/2013 1:30 PM CLASSIFIED AD CLERK) Anatomical Region Laterality Modality Breast Bilateral Mammography Specimen (Source) Anatomical Collection Method Collection Time Re ceived Time Location / / Volume Laterality 04/26/2013 1:30 PM CLASSIFIED AD CLERK Addenda Addendum by Oneil Lua M.D. o n 04/26/2013 1:30 PM CLASSIFIED AD CLERK RAD^^^OW MA Mammo Screening w ??CADD 04/26/2013 13:30:00 Addendum by Oneil Lua M.D. o n 04/26/2013 1:57 PM CLASSIFIED AD CLERK RAD^^^OW MA Mammo Screening w ??CADD 04/26/2013 13:57:50 Addendum by Oneil Lua M.D. o n 04/26/2013 1:30 PM CLASSIFIED AD CLERK RAD^^^MA MA MAMMO SCREENING W CADD 04/26/2013 13:30:00 Addendum by Oneil Lua M.D. o n 04/26/2013 1:57 PM CLASSIFIED AD CLERK RAD^^^MA MA MAMMO SCREENING W CADD 04/26/2013 13:57:00 Impressions 04/26/2013 2:49 PM CLASSIFIED AD CLERK Stable mammogram, no evidence of malignancy. BI-RADS code: 1, negative mammogram. Narrative 04/26/2013 2:49 PM CLASSIFIED AD CLERK EXAM: [place] Mammo Screening w/ CADD INDICATION: [...] BI-RADS code: 1, negative mammogram. Martha Long(R), RGary(R)(M) SHANEL AMARO ES documented in this encounter Visit Diagnoses Not on filedocumented in this encounter
--- OUTSIDE RECORDS SUMMARY | 2022-04-01 13:52 | XMS_ITS | Encounter Summary ---
:1945 Author Organization [facility] Address [address] [place] [address] Care Team Providers Name Role Phone Unavailable Primary Care Provider Unavailable Encounter Details Date Type Department Care Team Description 11/16/2012 Hospital Encounter HX [facility] Oc Barnett, ORION, C.N.P. [address] [place], [place] [phone] (Wo rk) Social History [...] as of this encounter Progress Notes Oc Trujillo, ORION, C.N.P. - 11/16/2012 8:49 AM CDT [id number] CHIEF COMPLAINT / REASON FOR VISIT Vaginal concerns. HISTORY OF PRESENT ILLNESS Isadora is a 67-year-old postmenopausal woman whose reproductive organs are intact who has been doctoring with Soledad Shafer RN, ZONE MAINTENANCE TECHNICIAN in regard to an ongoing vaginal infection [...] masses. Normal pubic hair distribution.Negative Bartholin's and [place]'s. Negative for any pelvic floor muscle pain [...] Prescription for Estrace cream was faxed to [facility]. I am recommending that she insert [...] a telephone call either at home at [phone] or on her cell at [phone] with those results in 3 to 7 [...] agreeable to this plan of care. Oc Trujillo CNP/chen Electronically Signed By: OC TRUJILLO RN, CNP On: 11/18/2012 09:15 AM Source: [facility] MHSDOLBEYNONRADSYS Document Id: [id number] documented in this encounter Miscellaneous Notes Miscellaneous - Oc Trujillo APRN, C.N.P. - 11/16/2012 9:51 AM CDT Ambulatory Patient Summary [address] [address] Visit Information Name: ISADORA BACK [facility] Number: [id number] Current Date: 11/16/2012 09:51:20 Physicians Attending Provider: OC TRUJILLO RN ZONE MAINTENANCE TECHNICIAN Primary Care Provider: LUI GAUTHIER MD Your [...] [facility] POWERCHART Document Id: [id number] Miscellaneous - Oc Trujillo APRN, C.N.P. - 11/16/2012 9:51 AM CDT Ambulatory Depart Summary [address] [address] Visit Information Name: ISADORA BACK [facility] Number: [id number] Visit Date: 11/16/2012 09:51:20 Attending Provider: OC TRUJILLO RN [facility] Primary Care Provider: LUI GAUTHIER MD [...] [facility] POWERCHART Document Id: [id number] Miscellaneous - Lauren Gamez REldaNElda - 11/16/2012 9:04 AM CDT Adult Investigative Analyst Intake/History Adult Investigative Analyst Intake/History Entered On: 11/16/2012 9:05 CDT Performed [...] 11/16/2012 9:04 CDT General Info Languages : Kazakh LAUREN CHAVEZ - 11/16/2012 9:04 CDT Subjective Pain Symptoms : No LAUREN CHAVEZ - 11/16/2012 9:04 CDT Dependent Habits Tobacco Use/Currently Using : No Tobacco Use/Last 12 months : No Smoking Status : Former smoker LAUREN CHAVEZ - 11/16/2012 9:04 CDT Tobacco Use Grid Last Use : quit 1970 LAUREN CHAVEZ - 11/16/2012 9:04 CDT Source: [facility] POWERCHART Document Id: [id number] CDT!22 documented in this encounter Plan of [...] CDT Laboratory developed test. Test Performed by: [address] [address] Wood Router: Varinder tucker III, M.D. Oc Trujillo APRN C.N.P. LAB HISTORICAL ORDERS Performing Organization Address City/State/ZIP Code Phon e Number POWERCHART HX-Ureaplasma Urea PCR (11/16/2012 9:41 AM CDT) Patholo gist Method Time Signature Ureaplasma Negative POWERCHART urealyticum PCR Specimen (Source) Anatomical Collection Method Collection Time Re ceived Time Location / / Volume Laterality 11/16/2012 9:41 AM CDT Oc Trujillo APRN, C.N.P. LAB HISTORICAL ORDERS Performing Organization Address City/[facility]/ZIP Code Phon e Number POWERCHART HX-Ureapl PCR Src (11/16/2012 9:41 AM CDT) P athologist Signature HXUreapl PCR vaginal POWERCHART [facility] Specimen (Source) Anatomical Collection Method Collection Time Re ceived Time Location / / Volume Laterality 11/16/2012 9:41 AM CDT Oc Trujillo APRN, C.N.P. LAB HISTORICAL ORDERS Performing Organization Address City/State/ZIP Code Phon e Number POWERCHART documented in this encounter Visit Diagnoses Not on filedocumented in this encounter
--- OUTSIDE RECORDS SUMMARY | 2022-04-01 13:52 | XMS_ITS | Encounter Summary ---
:1945 Author Organization [facility] Address [address] [place] [address] Care Team Providers Name Role Phone Unavailable Primary Care Provider Unavailable Encounter Details Date Type Department Care Team Description 05/21/2014 Hospital Encounter HX [facility] FBHB FAMILYPRA Channing Preciado P.A.-C. [address] [place] [address] (Wo rk) Social History Tobacco [...] Comments Blood Pressure 128/82 05/21/2014 1:26 PM BARREL POLISHER Pulse 66 05/21/2014 1:26 PM BARREL POLISHER Temperature - - Respiratory Rate 16 05/21/2014 1:26 PM BARREL POLISHER Oxygen Saturation - - Inhaled Oxygen Concentration - - Weight 57 kg (125 lb 10.6 oz) 05/21/2014 1:26 PM BARREL POLISHER Height 162 cm (5' 3.78) 05/21/2014 1:26 PM BARREL POLISHER Body Mass Index 21.72 05/21/2014 1:26 PM BARREL POLISHER documented in this encounter Medications at Time [...] Preciado P.A.-C. - 05/21/2014 1:08 PM CST [id number] CHIEF COMPLAINT/REASON FOR VISIT Back pain x3 [...] PRECIADO PA-C On: 05/23/2014 08:50 AM Source: [facility] MHSDOLBEYNONRADSYS Document Id: [id number] EL POLISHER documented in this encounter Nursing Notes Marco Hernandez L.P.NElda - 05/21/2014 4:03 PM CST Prior Authorization request cyclobenzaprine HCI Document Contains Addenda Addendum by MARCO HERNANDEZ LPN on 23 May 2014 13:56 BARREL POLISHER Received notice that a diagnoses was requested for the prior authorization, have faxed this information back to [facility]. Modified by and Electronically Signed by: MARCO HERNANDEZ LPN On: 05/23/2014 01:56 PM Prior Authorization Request for Cyclobenzaprine HCI completed through cover my meds inititated by pharmacy. Time spent on form 25 minutes. Electronically Signed By: MARCO HERNANDEZ LPN On: 05/21/2014 04:05 PM Source: [facility] POWERCHART Document Id: [id number] EL POLISHER documented in this encounter Miscellaneous Notes Miscellaneous - Vanessa Monroy C.M.A. - 05/21/2014 1:26 PM CST Adult Janitorial Manager Intake/History Adult Janitorial Manager Intake/History Entered On: 05/21/2014 13:29 BARREL POLISHER Performed On: 05/21/2014 13:26 BARREL POLISHER by VANESSA MONROY Intake Chief Complaint : [...] 21.72 kg/m2 VANESSA MONROY - 05/21/2014 13:26 BARREL POLISHER General Info Information Given By : Patient Languages : Kyrgyz Is Patient Female and 13-50 no hysterectomy : No VANESSA MONROY 05/21/2014 13:26 BARREL POLISHER Subjective Pain Symptoms : Yes VANESSA MONROY 05/21/2014 13:26 BARREL POLISHER Pain Scale Pain Scale Verbal 0-10 : Open VANESSA MONROY 05/21/2014 13:26 BARREL POLISHER Pain Pain Assessment Grid Pain 1 Location : Lower back Laterality : Left VANESSA MONROY 05/21/2014 13:26 BARREL POLISHER Dependent Habits Tobacco Use/Currently Using : No Exposure to Tobacco Smoke : Other: quit smoking at age 22 Smoking Status : Former smoker VANESSA MONROY 05/21/2014 13:26 BARREL POLISHER Tobacco Use Grid Last Use : quit 1970 VANESSA MONROY 05/21/2014 13:26 BARREL POLISHER Caffeine Use Grid Caffeine Use : Current Type : Coffee, Soft drinks Frequency : Daily Amount : 4 Last Use : today VANESSA MONROY 05/21/2014 13:26 BARREL POLISHER Recreational Drug Use Grid Drug Use : None VANESSA MONROY 05/21/2014 13:26 BARREL POLISHER ID Screen Drug Resistant Organism : No Travel Within Last 21 Days : No VANESSA MONROY - 05/21/2014 13:26 BARREL POLISHER Source: [facility] POWERCHART Document Id: [id number] BARREL POLISHER!50 EL POLISHER documented in this encounter Plan of Treatment Not on filedocumented as of this encounter Procedures Procedure Name Priority Date/Time Associated Comments Diagnosis BACTERIAL CULTURE, Routine 05/21/2014 1:27 PM Res ults for this AEROBIC, URINE BARREL POLISHER procedure are in the results section. URINALYSIS WITH Routine 05/21/2014 1:26 PM Result s for this MICROSCOPIC BARREL POLISHER procedure are i n the results section. documented in this encounter Results Bacterial Culture, Aerobic, Urine (05/21/2014 1:27 PM BARREL POLISHER) [facility] Method Time Signature Bacterial POWERCHART Culture, Aerobic, Urine HXPre No growth POWERCHART HXFinal Mixed agusto. No POWERCHART further studies unless notified. HXFinal [place] POWERCHART Microbiology laboratory [phone] Specimen (Source) Anatomical Collection Method Collection Time Re ceived Time Location / / Volume Laterality Urine, First 05/21/2014 1:27 PM Voided BARREL POLISHER Adele Preciado P.A.-C. LAB MICROBIOLOGY - GENERAL O RDERABLES Performing Organization Address City/State/ZIP Code Phon e Number POWERCHART (ABNORMAL) Urinalysis, Complete, Includes Microscopic (05/21/2014 1:26 PM BARREL POLISHER) [facility] Method Time Signature Protein, Ur, Dip Negative Negative POWERCHART MGDL HXUr Color Yellow Colorless POWERCHART Glucose Negative Negative POWERCHART MGDL HXBILIRUBIN Negative Negative POWERCHART Ketones, QL(U) Negative Negative POWERCHART MGDL Specific 1.015 POWERCHART Victor, POCT, U Clarity Clear Clear POWERCHART pH, [...] Laterality Urine, First 05/21/2014 1:26 PM Voided BARREL POLISHER Adele Preciado P.A.-C. LAB URINE ORDERABLES Performing Organization Address City/State/ZIP Code Phon e Number POWERCHART documented in this encounter Visit Diagnoses Not on filedocumented in this encounter
--- OUTSIDE RECORDS SUMMARY | 2022-04-01 13:52 | XMS_ITS | Encounter Summary ---
:[address] [facility] Address [address] [place] [address] Care Team Providers Name Role Phone Unavailable Primary Care Provider Unavailable Encounter Details Date Type Department Care Team Description 03/28/2013 Hospital Encounter HX [facility] FBKF FAMILYPRA Nacho Duenas, ORION, C.N.P., D. N.P. [address] [place], [place] [address] (Wo rk) Social History [...] Comments Blood Pressure 110/60 03/28/2013 10:57 AM CYLINDER PRESS FEEDER Pulse 64 03/28/2013 10:57 AM CYLINDER PRESS FEEDER Temperature - - Respiratory Rate 20 03/28/2013 10:57 AM CYLINDER PRESS FEEDER Oxygen Saturation - - Inhaled Oxygen Concentration - - Weight 56.8 kg (125 lb 3.5 oz) 03/28/2013 10:57 AM CYLINDER PRESS FEEDER Height - - Body Mass Index 21.64 02/28/2013 3:12 PM CYLINDER PRESS FEEDER documented in this encounter Medications at Time [...] Progress Notes Abel Duenas APRN, C.N.P. - 03/28/2013 10:38 AM CST [id number] CHIEF COMPLAINT/REASON FOR VISIT Discuss meds. HISTORY [...] need to follow up with Gynecology at [facility] or Nivia Trujillo CNP for further recommendations. [...] SHAFER CNP On: 07/30/2013 04:03 PM Source: [facility] MHSDOLBEYNONRADSYS Document Id: [id number] documented in this encounter Miscellaneous Notes Miscellaneous - Abel Duenas APRN, C.N.P. - 03/28/2013 11:40 AM CYLINDER PRESS FEEDER Ambulatory Patient Summary [address] [id number] Visit Information Name: ISADORA BACK [facility] Number: [id number] Visit Date: 03/28/2013 11:40:02 Attending [...] directed x 5 day(s) New Routed to [address] [id number] citalopram (CeleXA 10 mg oral tablet) 1 Tablet(s), Oral, once a day New Routed to [address] [id number] erythromycin (erythromycin ethylsuccinate 400 mg oral tablet) 2 Tablet(s), Oral, every 6 hours x 7 day(s) New Routed to [address] [id number] LORazepam (lorazepam 0.5 mg oral tablet) 1 [...] in case of emergency. Additional Information: Source: [facility] POWERCHART Document Id: [id number] NDER PRESS FEEDER Miscellaneous - Abel Duenas APRN, C.N.P. - 03/28/2013 11:40 AM CYLINDER PRESS FEEDER Ambulatory Depart Summary [address] [address] Visit Information Name: ISADORA BACK [facility] Number: [id number] Visit Date: 03/28/2013 11:39:59 Attending Provider: ABEL SHAFER [facility] Primary Care Provider: LUI GAUTHIER MD [...] directed x 5 day(s) New Routed to [facility] [address] [place], [place] [id number] citalopram (CeleXA 10 mg oral tablet) 1 Tablet(s), Oral, once a day New Routed to [id number] [place], [place] [id number] erythromycin (erythromycin ethylsuccinate 400 mg oral tablet) 2 Tablet(s), Oral, every 6 hours x 7 day(s) New Routed to [address] [id number] LORazepam (lorazepam 0.5 mg oral tablet) 1 [...] in case of emergency. Additional Information: Source: [facility] POWERCHART Document Id: [id number] NDER PRESS FEEDER Miscellaneous - Marco Hernandez, L.P.N. - 03/28/2013 10:57 AM CST Adult Tassel Snipper Intake/History Adult Tassel Snipper Intake/History Entered On: 03/28/2013 10:59 CYLINDER PRESS FEEDER Performed On: 03/28/2013 10:57 CYLINDER PRESS FEEDER by MARCO HERNANDEZ Intake Chief Complaint : [...] 56.8 kg MARCO HERNANDEZ - 03/28/2013 10:57 CYLINDER PRESS FEEDER General Info Information Given By : Patient Languages : Chinese MARCO HERNANDEZ - 03/28/2013 10:57 CYLINDER PRESS FEEDER Subjective Pain Symptoms : Yes MARCO HERNANDEZ - 03/28/2013 10:57 CYLINDER PRESS FEEDER Pain Pain Assessment Grid Pain 1 Location : Bladder Intensity : 4 Duration : couple days MARCO HERNANDEZ - 03/28/2013 10:57 CYLINDER PRESS FEEDER Dependent Habits Tobacco Use/Currently Using : No Tobacco Use/Last 12 months : No Tobacco Use/Advised to Quit : No Smoking Status : Never smoker MARCO HERNANDEZ - 03/28/2013 10:57 CYLINDER PRESS FEEDER Tobacco Use Grid Last Use : quit 1969 MARCO HERNANDEZ - 03/28/2013 10:57 CYLINDER PRESS FEEDER Caffeine Use Grid Caffeine Use : Current Type : Coffee Frequency : Daily Amount : 3 Last Use : today MARCO HERNANDEZ - 03/28/2013 10:57 CYLINDER PRESS FEEDER Source: [employer] Document Id: [id number] CYLINDER PRESS FEEDER!40 NDER PRESS FEEDER Miscellaneous - Marco Hernandez LEldaP.NElda - 03/28/2013 10:57 AM CST Health Assessment Health Assessment Entered On: 03/28/2013 11:01 CYLINDER PRESS FEEDER Performed On: 03/28/2013 10:57 CYLINDER PRESS FEEDER by MARCO HERNANDEZ Health Assessment Complete Health Assessment Complete or Modified : Modified Health Assessment MARCO HERNANDEZ - 03/28/2013 10:57 CYLINDER PRESS FEEDER Nutrition Nutrition Risk Factors by History Adult : None MARCO HERNANDEZ - 03/28/2013 10:57 CYLINDER PRESS FEEDER Functional Current Daily Living Assistance : None MARCO HERNANDEZ - 03/28/2013 10:57 CYLINDER PRESS FEEDER Dependent Habits Tobacco Use/Currently Using : No Tobacco Use/Last 12 months : No Smoking Status : Former smoker MARCO HERNANDEZ - 03/28/2013 10:57 CYLINDER PRESS FEEDER Tobacco Use Grid Last Use : quit 1969 MARCO HERNANDEZ - 03/28/2013 10:57 CYLINDER PRESS FEEDER Alcohol Use : Yes MARCO HERNANDEZ - 03/28/2013 10:57 CYLINDER PRESS FEEDER Caffeine Use Grid Caffeine Use : Current Type : Coffee Frequency : Daily Amount : 4 Last Use : today MARCO HERNANDEZ - 03/28/2013 10:57 CYLINDER PRESS FEEDER Recreational Drug Use Grid Drug Use : None MARCO HERNANDEZ - 03/28/2013 10:57 CYLINDER PRESS FEEDER AUDIT Tool How Often Do You Have A Drink : Monthly or less How Many Drinks in a Day When Drinking : 1 or 2 Six or More Drinks On One Occassion : Never Audit Phase 1 Score : 1 MARCO HERNANDEZ - 03/28/2013 10:57 CYLINDER PRESS FEEDER Psychosocial Domestic Abuse Concerns : None Marital Status : Years of Marriage : 41 Number of Children : 3 MARCO HERNANDEZ - 03/28/2013 10:57 CYLINDER PRESS FEEDER Advance Directive Advanced Directives : No MARCO HERNANDEZ - 03/28/2013 10:57 CYLINDER PRESS FEEDER Educ Needs Learning Style Preference Adult Grid Patient : Verbal explanation Family : Verbal explanation MARCO HERNANDEZ - 03/28/2013 10:57 CYLINDER PRESS FEEDER Source: [facility] [employer] Document Id: [id number] CYLINDER PRESS FEEDER!41 NDER PRESS FEEDER documented in this encounter Plan of Treatment Not on filedocumented as of this encounter Visit Diagnoses Not on filedocumented in this encounter
--- OUTSIDE RECORDS SUMMARY | 2022-04-01 13:52 | XMS_ITS | Encounter Summary ---
:1945 Author Organization [facility] Address [address] [place] [address] Care Team Providers Name Role Phone Unavailable Primary Care Provider Unavailable Encounter Details Date Type Department Care Team Description 03/15/2013 Hospital Encounter HX [facility] FBKF FAMILYPRA Nacho Duenas, ORION, C.N.P., D. N.P. [address] [place], [place] [address] (Wo rk) Social History [...] - - Pulse 68 03/15/2013 10:13 AM ELECTRONIC ORGAN TECHNICIAN Temperature - - Respiratory Rate 18 03/15/2013 10:13 AM ELECTRONIC ORGAN TECHNICIAN Oxygen Saturation - - Inhaled Oxygen Concentration - - Weight 56.6 kg (124 lb 12.5 oz) 03/15/2013 10:13 AM ELECTRONIC ORGAN TECHNICIAN Height - - Body Mass Index 21.57 02/28/2013 3:12 PM ELECTRONIC ORGAN TECHNICIAN documented in this encounter Medications at Time [...] ORION, C.N.P. - 03/15/2013 10:00 AM CST [id number] CHIEF COMPLAINT/REASON FOR VISIT Still having troubles [...] swelling, lesions, discharge noted from the [place], [place]'s or urethra. Vaginal castro appear supple, pink [...] SHAFER CNP On: 07/30/2013 04:15 PM Source: [facility] MHSDOLBEYNONRADSYS Document Id: [id number] documented in this encounter Miscellaneous Notes Miscellaneous - Abel Duenas APRN C.N.P. - 03/17/2013 2:23 PM ELECTRONIC ORGAN TECHNICIAN Results Notification Document Contains Addenda Addendum by TANJA HERNANDEZ on 2013 15:13:06 ELECTRONIC ORGAN TECHNICIAN From: TANJA HERNANDEZ ([facility] Medicine Nurse) To: ABEL SHAFER CNP; Sent: 2013 15:13:06 ELECTRONIC ORGAN TECHNICIAN Show up: 2013 15:12:00 ELECTRONIC ORGAN TECHNICIAN Subject: RE: Results Notification Patient states she will try the z-jason as she has it waiting at [facility] if [place]. From: ABEL SHAFER CNP To: [facility] Medicine Nurse; Sent: 03/17/2013 14:23:16 ELECTRONIC ORGAN TECHNICIAN ! Show up: 03/17/2013 20:23:16 [facility] Subject: Results Notification Actions: Notify patient of results Reminder Comments: Ureaplasma still positive. Results: Date Result Name Value Ref Range 03/15/2013 10:45 Ureapl PCR [facility] [place] VAGINAL 03/15/2013 10:45 Ureaplasma Urea PCR-[place] Positive (Not Applicable - ) 03/15/2013 10:45 Ureaplasma Parv PCR-[place] Negative (Not Applicable - ) Source: [facility] POWERCHART Document Id: [id number] Miscellaneous - Abel Duenas APRN, C.N.P. - 03/15/2013 5:00 PM ELECTRONIC ORGAN TECHNICIAN Results Notification Document Contains Addenda Addendum by TANJA HERNANDEZ on 2013 15:13:33 ELECTRONIC ORGAN TECHNICIAN Patient aware of results. From: ABEL SHAFER CNP To: [facility] Nurse; Sent: 03/15/2013 17:00:44 ELECTRONIC ORGAN TECHNICIAN ! Show up: 03/15/2013 23:00:44 [place] Subject: Results Notification Actions: Notify patient of results Reminder Comments: No yeast, trich, or clue cells (BV) Results: Date Result Type Ind Result Name MBO Review WET Prep WBC's Source: [facility] POWERCHART Document Id: [id number] Electronically signed by Conversion, [facility] Director Social Welfare [id number] at 09/16/2016 5:03 PM CDT Miscellaneous - Conversion, Historical Provider Ser - 03/15/2013 10:13 AM ELECTRONIC ORGAN TECHNICIAN Adult Interactive Web Developer Intake/History Adult Interactive Web Developer Intake/History Entered On: 03/15/2013 10:14 ELECTRONIC ORGAN TECHNICIAN Performed On: 03/15/2013 10:13 ELECTRONIC ORGAN TECHNICIAN by BREE DARNELL LPN Intake Chief Complaint [...] kg BREE DARNELL LPN - 03/15/2013 10:13 ELECTRONIC ORGAN TECHNICIAN General Info Languages : Singaporean BREE DARNELL LPN - 03/15/2013 10:13 ELECTRONIC ORGAN TECHNICIAN Subjective Pain Symptoms : No BREE DARNELL LPN - 03/15/2013 10:13 ELECTRONIC ORGAN TECHNICIAN Dependent Habits Tobacco Use/Currently Using : No Smoking Status : Never smoker BREE DARNELL LPN - 03/15/2013 10:13 ELECTRONIC ORGAN TECHNICIAN Tobacco Use Grid Last Use : quit 1970 BREE DARNELL LPN - 03/15/2013 10:13 ELECTRONIC ORGAN TECHNICIAN Caffeine Use Grid Caffeine Use : Current Type : Coffee Frequency : Daily Amount : 3 Last Use : today BREE DARNELL LPN - 03/15/2013 10:13 ELECTRONIC ORGAN TECHNICIAN Source: [facility] POWERCHART Document Id: [id number] ELECTRONIC ORGAN TECHNICIAN!31 documented in this encounter Plan of Treatment Not on filedocumented as of this encounter Procedures Procedure Name Priority Date/Time Associated Comments Diagnosis UREAPL PCR SRC Routine 03/15/2013 10:45 AM Result s for this ELECTRONIC ORGAN TECHNICIAN procedure are i n the results section. UREAPLASMA UREA PCR Routine 03/15/2013 10:45 AM R esults for this ELECTRONIC ORGAN TECHNICIAN procedure are i n the results section. UREAPLASMA PARV PCR Routine 03/15/2013 10:45 AM R esults for this ELECTRONIC ORGAN TECHNICIAN procedure are i n the results section. WET PREP EXAM, Routine 03/15/2013 10:45 AM Result s for this UROGENITAL ELECTRONIC ORGAN TECHNICIAN procedure are i n the results section. documented in this encounter Results HX-Ureaplasma Parv PCR (03/15/2013 10:45 AM ELECTRONIC ORGAN TECHNICIAN) Analysis Performed At Patho logist Time Signature Ureaplasma Negative POWERCHART parvum PCR Specimen (Source) Anatomical Collection Method Collection Time Re ceived Time Location / / Volume Laterality 03/15/2013 10:45 AM ELECTRONIC ORGAN TECHNICIAN Narrative POWERCHART - 03/17/2013 2:17 PM ELECTRONIC ORGAN TECHNICIAN Laboratory developed test. Test Performed by: [place] [address] Field Artillery Targeting Technician: Varinder tucker III, M.D. Jovani Hodge APRN.N.P., D.N.P. LAB HISTORICAL O RDERS Performing Organization Address City/[facility] Code Phon e Number POWERCHART HX-Ureaplasma Urea PCR (03/15/2013 10:45 AM ELECTRONIC ORGAN TECHNICIAN) Patholo gist Method Time Signature Ureaplasma Positive POWERCHART urealyticum PCR Specimen (Source) Anatomical Collection Method Collection Time Re ceived Time Location / / Volume Laterality 03/15/2013 10:45 AM ELECTRONIC ORGAN TECHNICIAN Abel Duenas APRN C.N.PElda, D.N.P. LAB HISTORICAL O RDERS Performing Organization Address City/State/ZIP Code Phon e Number POWERCHART HX-Ureapl PCR Src (03/15/2013 10:45 AM ELECTRONIC ORGAN TECHNICIAN) athologist Signature HXUreapl PCR VAGINAL POWERCHART [facility] Specimen (Source) Anatomical Collection Method Collection Time Re ceived Time Location / / Volume Laterality 03/15/2013 10:45 AM ELECTRONIC ORGAN TECHNICIAN Abel Duenas APRN, C.N.P., D.N.P. LAB HISTORICAL O RDERS Performing Organization Address City/[facility] Phon e Number POWERCHART Wet Prep Exam, Urogenital (03/15/2013 10:45 AM ELECTRONIC ORGAN TECHNICIAN) athologist Signature HXWet Prep POWERCHART HXFinal No yeast, POWERCHART Trichomonas , clue cells, or sperm seen. Specimen (Source) Anatomical Collection Method Collection Time Re ceived Time Location / / Volume Laterality Vagina 03/15/2013 10:45 AM ELECTRONIC ORGAN TECHNICIAN Abel Duenas APRN, C.N.P., D.N.P. LAB MICROBIOLOGY - GENERAL ORDERABLES Performing Organization Address City/[facility] Phon e Number POWERCHART documented in this encounter Visit Diagnoses Not on filedocumented in this encounter
--- OUTSIDE RECORDS SUMMARY | 2022-04-01 13:52 | XMS_ITS | Encounter Summary ---
:1945 Author Organization [facility] Address [address] [place] [address] Care Team Providers Name Role Phone Unavailable Primary Care Provider Unavailable Encounter Details Date Type Department Care Team Description 07/11/2013 Hospital Encounter HX [facility] FBCV Oc Barnett, ORION, C.N.P. [address] [place], [place] [phone] (Wo rk) Social History [...] Body Mass Index 21.04 04/14/2013 8:41 AM BEATER OPERATOR documented in this encounter Medications at [...] ORION, C.N.P. - 07/11/2013 12:44 PM CDT [id number] CHIEF COMPLAINT/REASON FOR VISIT Vaginitis. HISTORY OF [...] she has been seeing a homeopathist in [place] for some of her symptoms and trying [...] treatment this time around. Therefore, a Z- Jason was provided x2 Z-Paks. She will take a Z-Jason for 5 days, and then 10 days later, she will start the 2nd one. She will call me if her symptoms do not improve or resolve, and if that is not working, we would consider trying the amoxicillin as that did improve her symptoms previously. Prescription for azithromycin was faxed to [facility], per request. She will call me roberto further followup is needed. Oc Zafar CNP/rolando Electronically Signed By: OC ZAFAR RN, CNP On: 07/12/2013 12:33 PM Source: [facility] MHSDOLBEYNONRADSYS Document Id: [id number] documented in this encounter Miscellaneous Notes Miscellaneous - Oc Zafar APRN, C.N.P. - 07/11/2013 1:31 PM CDT Ambulatory Patient Summary [address] [place], [place] [id number] Visit Information Name: ISADORA BACK [facility] Number: [id number] Current Date: 07/11/2013 13:31:50 Physicians Attending Provider: OC ZAFAR RN, CNP [...] tablet daily after that. New Routed to [address] [address] LORazepam (lorazepam 0.5 mg oral tablet) 1 [...] appointment detail needed. Your Goals/Additional instructions: Source: [facility] [employer] Document Id: [id number] Miscellaneous - Oc Zafar APRN, C.N.P. - 07/11/2013 1:31 PM CDT Ambulatory Discharge Medication List [address] [id number] Visit Information Name: ISADORA BACK [facility] Number: [id number] Visit Date: 07/11/2013 13:31:49 Attending Provider: OC ZAFAR RN [facility] Primary Care Provider: LUI GAUTHIER MD [...] tablet daily after that. New Routed to [address] [address] LORazepam (lorazepam 0.5 mg oral tablet) 1 [...] in case of emergency. Additional Information: Source: [facility] POWERCHART Document Id: [id number] Miscellaneous - Lauren Gamez, R.N. - 07/11/2013 12:56 PM CDT Adult Rn Patient Services Intake/History Adult Rn Patient Services Intake/History Entered On: 07/11/2013 12:56 CDT Performed [...] 07/11/2013 12:56 CDT General Info Languages : Mauritanian LAUREN CHAVEZ - 07/11/2013 12:56 CDT Subjective [...] LAUREN CHAVEZ - 07/11/2013 12:56 CDT [facility]: [facility] Document Id: [id number] CDT!32 documented in this encounter Plan of Treatment Not on filedocumented as of this encounter Visit Diagnoses Not on filedocumented in this encounter
--- OUTSIDE RECORDS SUMMARY | 2022-04-01 13:52 | XMS_ITS | Encounter Summary ---
:1945 Author Organization [facility] Address [address] [place] [address] Care Team Providers Name Role Phone Unavailable Primary Care Provider Unavailable Encounter Details Date Type Department Care Team Description 08/08/2013 Hospital Encounter HX [facility] Oc Barnett, ORION, C.N.P. [address] [place], [place] [address] (Wo rk) Social History [...] Body Mass Index 20.71 04/14/2013 8:41 AM PARTNER documented in this encounter Medications at Time [...] ORION, C.N.P. - 08/08/2013 2:52 PM CDT [id number] CHIEF COMPLAINT/REASON FOR VISIT Recheck for vaginitis [...] RN, CNP On: 08/09/2013 08:20 AM Source: [facility] Document Id: [id number] documented in this encounter Miscellaneous Notes Miscellaneous - Oc Zafar APRN, C.N.P. - 08/08/2013 3:18 PM CDT Ambulatory Patient Summary [address] [id number] Visit Information Name: ISADORA BACK [facility] Number: [id number] Current Date: 08/08/2013 15:18:24 Physicians Attending Provider: OC ZAFAR RN CHEESE MAKER Primary Care Provider: LUI GAUTHIER MD ISADORA [...] emergency. Electronically Signed By: OC ZAFAR RN CHEESE MAKER Signed On:08-AUG-2013 15:18:17 Your Allergies & Intolerances [...] appointment detail needed. Your Goals/Additional instructions: Source: [facility] POWERCHART Document Id: [id number] Miscellaneous - Oc Zafar APRN, C.N.P. - 08/08/2013 3:18 PM CDT Ambulatory Discharge Medication List [address] [id number] Visit Information Name: ISADORA BACK [facility] Number: [id number] Visit Date: 08/08/2013 15:18:22 Attending Provider: OC ZAFAR RN CHEESE MAKER Primary Care Provider: LUI GAUTHIER MD ISADORA [...] emergency. Electronically Signed By: OC ZAFAR RN CHEESE MAKER Signed On:08-AUG-2013 15:18:17 Additional Information: Source: [facility] [employer] Document Id: [id number] Miscellaneous - Lauren Gamez RMigel - 08/08/2013 3:01 PM CDT Adult Box Icer Intake/History Adult Box Icer Intake/History Entered On: 08/08/2013 15:02 CDT Performed [...] 08/08/2013 15:01 CDT General Info Languages : Yakut LAUREN CHAVEZ - 08/08/2013 15:01 CDT Subjective [...] LAUREN CHAVEZ - 08/08/2013 15:01 CDT [facility] Document Id: [id number] CDT!32 documented in this encounter Plan of Treatment Not on filedocumented as of this encounter Visit Diagnoses Not on filedocumented in this encounter
--- OUTSIDE RECORDS SUMMARY | 2022-04-01 13:52 | XMS_ITS | Encounter Summary ---
:1945 Author Organization [facility] Address [address] [place] [address] Care Team Providers Name Role Phone Unavailable Primary Care Provider Unavailable Encounter Details Date Type Department Care Team Description 12/30/2012 Hospital Encounter HX [facility] FBKF FAMILYPRA Nacho Duenas, ORION, C.N.P., D. N.P. [address] [place], [place] [address] (Wo rk) Social History [...] APRN, C.N.P. - 12/30/2012 9:33 AM CDT [id number] CHIEF COMPLAINT/REASON FOR VISIT Vaginal irritation. HISTORY [...] up with Abel next week. Abel Shafer CNP/[facility] Electronically Signed By: ABEL SHAFER CNP On: 02/01/2013 03:08 PM Source: [facility] MHSDOLBEYNONRADSYS Document Id: [id number] documented in this encounter Miscellaneous Notes Miscellaneous - Abel Duenas APRN, C.N.P. - 01/07/2013 9:59 AM CDT Results Notification Document Contains Addenda Addendum by AUGUSTUS GUERRERO on 10 January 2013 16:57:09 CDT notfiied. From: ABEL SHAFER NETWORK SPECIALIST To: MARCIO Lee Channing Home Medicine Nurse; Sent: 01/07/2013 09:59:30 CDT ! Show up: 01/07/2013 14:59:30 [place] Subject: Results Notification Actions: Notify patient of results Reminder Comments: No fungal growth after 7 days. Results: Date Result Name Value 12/30/2012 11:43 Gamaliel Vag Rslt-Leiva See Comment Source: [facility] [employer] Document Id: [id number] Electronically signed by Conversion, [facility] Chemical Engineering Teacher [id number] at 09/16/2016 5:53 PM CDT Miscellaneous - Abel Duenas, ORION, C.N.P. - 12/30/2012 12:48 PM CDT Results Notification Document Contains Addenda Addendum by AUGUSTUS GUERRERO on 02 January 2013 15:29:52 CDT notified. has an apt. with abel [place] Addendum by AUGUSTUS GUERRERO on 02 January 2013 11:23:39 CDT unable to reach. From: ABEL SHAFER CNP To: MARCIO Lee Channing Home Medicine Nurse; Sent: 12/30/2012 12:48:47 CDT ! Show up: 12/30/2012 17:48:47 [place] Subject: Results Notification Actions: Notify patient of results Reminder Comments: negative for yeast. Results: Date Result Type Ind Result Name MBO Review WET Prep WBC's Source: [facility] POWERCHART Document Id: [id number] Electronically signed by Conversion, [facility] Chemical Engineering Teacher [id number] at 09/16/2016 5:53 PM CDT Miscellaneous - Conversion, Historical Provider Ser - 12/30/2012 9:38 AM CDT Adult Care Technician Intake/History Adult Care Technician Intake/History Entered On: 12/30/2012 9:41 CDT Performed [...] Weight Clinic : 56.5 kg AUGUSTUS GUERRERO [facility] 12/30/2012 9:38 CDT General Info Information Given By : Patient Preferred Communication Mode : Verbal Languages : Romanian AUGUSTUS GUERRERO [facility] 12/30/2012 9:38 CDT Subjective Pain Symptoms : Yes AUGUSTUS GUERRERO 12/30/2012 9:38 CDT Dependent Habits Tobacco Use/Currently Using : No Tobacco Use/Last 12 months : No Smoking Status : Former smoker AUGUSTUS GUERRERO 12/30/2012 9:38 CDT Tobacco Use Grid Last Use : quit 1969 AUGUSTUS GUERRERO [facility] 12/30/2012 9:38 CDT [facility] Document Id: [id number] CDT!28 documented in this encounter Plan of [...] Bacterial Culture, Aerobic (12/30/2012 11:58 AM CDT) [facility] gist Method Time Signature HXCulture POWERCHART Genital HXFinal See POWERCHART scanned/paper report. Test performed at [facility]. Specimen (Source) Anatomical Collection Method Collection Time Re ceived Time Location / / Volume Laterality Vagina 12/30/2012 11:58 AM CDT Abel Duenas APRN, C.N.P., D.N.P. LAB MICROBIOLOGY - GENERAL ORDERABLES Performing Organization Address [facility] Phon e Number POWERCHART HX-Gamaliel [...] 7 days of incubation. Test Performed by: [place] [address] Chief Of Production: Varinder tucker III, M.D. Jovani Hodge APRN.N.PElda, D.N.P. LAB HISTORICAL O RDERS Performing Organization Address [facility] Phon e Number POWERCHART Wet Prep Exam, Urogenital (12/30/2012 11:43 AM CDT) P athologist Signature HXWet Prep POWERCHART HXFinal No yeast, POWERCHART Trichomonas , clue cells, or sperm seen. Specimen (Source) Anatomical Collection Method Collection Time Re ceived Time Location / / Volume Laterality Vagina 12/30/2012 11:43 AM CDT Jovani Hodge APRN.N.P., D.N.P. LAB MICROBIOLOGY - GENERAL ORDERABLES Performing Organization Address [facility] Phon e Number POWERCHART documented in this encounter Visit Diagnoses Not on filedocumented in this encounter
--- OUTSIDE RECORDS SUMMARY | 2022-04-01 13:52 | XMS_ITS | Encounter Summary ---
:1945 Author Organization [facility] Address [address] [place] [address] Care Team Providers Name Role Phone Unavailable Primary Care Provider Unavailable Encounter Details Date Type Department Care Team Description 05/21/2014 Hospital Encounter HX NO MAPPING Isak Preciado P.A.-C. [address] [place] [address] (Wo rk) Social History [...] Historical Provider Ser - 05/21/2014 11:59 PM PRODUCT MANAGER E [employer] Coding Summary-Paper Based CODING DATE: 05/25/2014 FINAL [facility] STATUS: * Discharged to Home or Self [...] GTZ Date Saved: 05/25/2014 03:33 pm Source: [facility] [employer] Document Id: [id number] documented in this encounter Plan of Treatment Not on filedocumented as of this encounter Visit Diagnoses Not on filedocumented in this encounter
--- OUTSIDE RECORDS SUMMARY | 2022-04-01 13:52 | XMS_ITS | Encounter Summary ---
:1945 Author Organization [facility] Address [address] [place] [address] Care Team Providers Name Role Phone Unavailable Primary Care Provider Unavailable Encounter Details Date Type Department Care Team Description 03/07/[address] [facility] FBHB FAMILYPRA Lui Crockett i, M.D. [address] [place] [address] (Wo rk) Social History Tobacco [...] Comments Blood Pressure 112/76 03/07/2014 1:44 PM AUTOMATION ENGINEER Pulse 68 03/07/2014 1:44 PM AUTOMATION ENGINEER Temperature - - Respiratory Rate 15 03/07/2014 1:44 PM AUTOMATION ENGINEER Oxygen Saturation - - Inhaled Oxygen Concentration - - Weight 56 kg (123 lb 7.3 oz) 03/07/2014 1:44 PM AUTOMATION ENGINEER Height 162 cm (5' 3.78) 03/07/2014 1:44 PM AUTOMATION ENGINEER Body Mass Index 21.34 03/07/2014 1:44 PM AUTOMATION ENGINEER documented in this encounter Medications at Time [...] Whitten M.D. - 03/07/2014 1:33 PM CST [id number] CHIEF COMPLAINT/ REASON FOR VISIT Review medications, [...] She is and helps to operate an [employer]. FAMILY HISTORY Mother is and had breast [...] on their behalf by Melanie ramírez trained medical accounting clerk. The creation of this record is based onthe scribe's personal observations and the provider's statements to them. This document has been [facility] ked and approved by the attending provider. Lui Ireland M.D./anderson Electronically Signed By: LUI WHITTEN MD On: 06/17/2014 09:39 PM Source[facility] Document Id: [id number] MATION ENGINEER documented in this encounter Miscellaneous Notes Miscellaneous - Vanessa Monroy C.M.A. - 03/07/2014 1:48 PM CST Health Assessment Health Assessment Entered On: 03/07/2014 13:49 AUTOMATION ENGINEER Performed On: 03/07/2014 13:48 AUTOMATION ENGINEER by VANESSA MONROY Health Assessment Complete Health Assessment Complete or Modified : Annual Health Assessment Annual Health Assessment Completed : Yes VANESSA MONROY - 03/07/2014 13:48 AUTOMATION ENGINEER Nutrition Nutrition Risk Factors by History Adult : None VANESSA MONROY - 03/07/2014 13:48 AUTOMATION ENGINEER Functional Current Daily Living Assistance : None VANESSA MONROY - 03/07/2014 13:48 AUTOMATION ENGINEER Dependent Habits Tobacco Use/Currently Using : No Exposure to Tobacco Smoke : Other: quit smoking at age 22 Smoking Status : Former smoker VANESSA MONROY - 03/07/2014 13:48 AUTOMATION ENGINEER Tobacco Use Grid Last Use : quit 1970 VANESSA MONROY - 03/07/2014 13:48 AUTOMATION ENGINEER Caffeine Use Grid Caffeine Use : Current Type : Coffee, Soft drinks Frequency : Daily Amount : 4 Last Use : today VANESSA MONROY - 03/07/2014 13:48 AUTOMATION ENGINEER Recreational Drug Use Grid Drug Use : None VANESSA MONROY - 03/07/2014 13:48 AUTOMATION ENGINEER Psychosocial Domestic Abuse Concerns : None Catholic Preference : No qualifying data available. VANESSA MONROY - 03/07/2014 13:48 AUTOMATION ENGINEER Advance Directive Advanced Directives : No Advance Directive Additional Information : Yes VANESSA MONROY - 03/07/2014 13:48 AUTOMATION ENGINEER Educ Needs Learning Style Preference Adult Grid Patient : Demonstration, Printed materials Family : Printed materials, Demonstration VANESSA MONROY - 03/07/2014 13:48 AUTOMATION ENGINEER Source: [facility] POWERCHART Document Id: [id number] AUTOMATION ENGINEER!35 MATION ENGINEER Miscellaneous - Vanessa Monroy C.M.A. - 03/07/2014 1:44 PM CST Adult Rn Discharge Intake/History Adult Rn Discharge Intake/History Entered On: 03/07/2014 13:47 AUTOMATION ENGINEER Performed On: 03/07/2014 13:44 AUTOMATION ENGINEER by VANESSA MONROY Intake Chief Complaint : annual physical Temperature [...] Body Mass Index : 21.34 kg/m2 VANESSA MONROY - 03/07/2014 13:44 AUTOMATION ENGINEER General Info Information Given By : Patient Languages : Eritrean Is Patient Female and 13-50 no hysterectomy : No VANESSA MONROY - 03/07/2014 13:44 AUTOMATION ENGINEER Subjective Pain Symptoms : No VANESSA MONROY - 03/07/2014 13:44 AUTOMATION ENGINEER Dependent Habits Tobacco Use/Currently Using : No Exposure to Tobacco Smoke : Other: quit smoking at age 22 Smoking Status : Former smoker VANESSA MONROY - 03/07/2014 13:44 AUTOMATION ENGINEER Tobacco Use Grid Last Use : quit 1970 VANESSA MONROY - 03/07/2014 13:44 AUTOMATION ENGINEER Caffeine Use Grid Caffeine Use : Current Type : Coffee, Soft drinks Frequency : Daily Amount : 4 Last Use : today VANESSA MONROY - 03/07/2014 13:44 AUTOMATION ENGINEER Recreational Drug Use Grid Drug Use : None VANESSA MONROY - 03/07/2014 13:44 AUTOMATION ENGINEER ID Screen Drug Resistant Organism : No Travel Within Last 21 Days : No VANESSA MONROY - 03/07/2014 13:44 AUTOMATION ENGINEER Source: [facility] POWERCHART Document Id: [id number] AUTOMATION ENGINEER!44 MATION ENGINEER documented in this encounter Plan of Treatment Not on filedocumented as of this encounter Visit Diagnoses Not on filedocumented in this encounter
--- OUTSIDE RECORDS SUMMARY | 2022-04-01 13:52 | XMS_ITS | Encounter Summary ---
:1945 Author Organization [facility] Address [address] [place] [address] Care Team Providers Name Role Phone Unavailable Primary Care Provider Unavailable Encounter Details Date Type Department Care Team Description 04/14/2013 Hospital Encounter HX [facility] FBHB FAMILYPRA Lui Crockett i, M.D. [address] [place] [address] (Wo rk) Social History Tobacco [...] Comments Blood Pressure 108/78 04/14/2013 8:41 AM SENIOR FIELD SERVICE ENGINEER Pulse 76 04/14/2013 8:41 AM SENIOR FIELD SERVICE ENGINEER Temperature - - Respiratory Rate 18 04/14/2013 8:41 AM SENIOR FIELD SERVICE ENGINEER Oxygen Saturation - - Inhaled Oxygen Concentration - - Weight 59 kg (130 lb 1.1 oz) 04/14/2013 8:41 AM SENIOR FIELD SERVICE ENGINEER Height 164 cm (5' 4.57) 04/14/2013 8:41 AM SENIOR FIELD SERVICE ENGINEER Body Mass Index 21.94 04/14/2013 8:41 AM SENIOR FIELD SERVICE ENGINEER documented in this encounter Medications at [...] encounter H&P Notes Lui Whitten M.D. - 04/14/2013 8:32 AM CST [id number] CHIEF COMPLAINT/REASON FOR VISIT Review medications, review [...] She is and helps to operate an [employer]. FAMILY HISTORY Mother had breast cancer in [...] well controlled with infrequent use of lorazepam. Lui Gauthier M.D./merced Electronically Signed By: LUI GAUTHIER MD On: 04/17/2013 02:27 PM Source: [facility] MHSDOLBEYNONRADSYS Document Id: [id number] OR FIELD SERVICE ENGINEER documented in this encounter Miscellaneous Notes Miscellaneous - Lui Whitten M.D. - 04/25/2013 11:13 AM SENIOR FIELD SERVICE ENGINEER General Message Document Contains Addenda Addendum by ELENO MORALES LPN on 25 April 2013 16:31:12 SENIOR FIELD SERVICE ENGINEER notified, and said she will do the otc Addendum by ELENO MORALES LPN on 25 April 2013 12:25:46 SENIOR FIELD SERVICE ENGINEER got answering machine From: LUI GAUTHIER MD To: ELENO MORALES LPN; Sent: 04/25/2013 11:13:27 SENIOR FIELD SERVICE ENGINEER Subject: General Message Isadora's pap is normal but they saw some yeast on the pap. She can treat with otc yeast creams or [facility]. Source: [facility] POWERCHART Document Id: [id number] Miscellaneous - Lui Whitten M.D. - 04/15/2013 2:08 PM SENIOR FIELD SERVICE ENGINEER Normal Results Letter 15 April 2013 ISADORA BACK [address] [place] [id number] Dear ISADORA BACK, I am pleased to [...] (H) 101 04/14/2013 0 - 100 Sincerely, LUI GAUTHIER [address] [place] [address] Electronic Signature Electronically Signed By: LUI GAUTHIER MD On: 15 April 2013 This document has images extracted. Source: [facility] POWERCHART Document Id: [id number] Electronically signed by Conversion, [facility] Appraiser [id number] at 09/16/2016 10:49 PM CDT Miscellaneous - Lui Whitten M.D. - 04/14/2013 9:31 AM SENIOR FIELD SERVICE ENGINEER Ambulatory Patient Summary [id number] [facility] [place] [address] Visit Information Name: ISADORA BACK [facility] Number: [id number] Current Date: 04/14/2013 09:31:54 Physicians Attending Provider: LUI GAUTHIER MD Primary Care Provider: LUI GAUTHIER MD [...] Location Reason Provider 04/25/2013 11:00 FBHB Mammo [facility] MA Room 1 Attention: Contact your local Clinic if further appointment detail needed. Your Goals/Additional instructions: Source: [facility] POWERCHART Document Id: [id number] OR FIELD SERVICE ENGINEER Miscellaneous - Lui Whitten M.D. - 04/14/2013 9:31 AM SENIOR FIELD SERVICE ENGINEER Ambulatory Depart Summary [address] [place] [address] Visit Information Name: ISADORA BACK [facility] Number: [id number] Visit Date: 04/14/2013 09:31:52 Attending Provider: LUI GAUTHIER MD Primary Care Provider: LUI GAUTHIER MD [...] in case of emergency. Additional Information: Source: [facility] POWERCHART Document Id: [id number] OR FIELD SERVICE ENGINEER Miscellaneous - Conversion, Historical Provider Ser - 04/14/2013 8:41 AM SENIOR FIELD SERVICE ENGINEER Adult Remelt Sugar Boiler Intake/History Adult Remelt Sugar Boiler Intake/History Entered On: 04/14/2013 8:47 SENIOR FIELD SERVICE ENGINEER Performed On: 04/14/2013 8:41 SENIOR FIELD SERVICE ENGINEER by BREE DARNELL LPN Intake Temperature Core : 36.7 DegC(Converted to: 98.1 DegF) BREE DARNELL LPN - 04/14/2013 8:47 SENIOR FIELD SERVICE ENGINEER Chief Complaint : annual Peripheral Pulse Rate [...] kg/m2 BREE DARNELL LPN - 04/14/2013 8:41 SENIOR FIELD SERVICE ENGINEER General Info Languages : Argentine BREE DARNELL LPN - 04/14/2013 8:41 SENIOR FIELD SERVICE ENGINEER Subjective Pain Symptoms : No BREE DARNELL LPN - 04/14/2013 8:41 SENIOR FIELD SERVICE ENGINEER Dependent Habits Tobacco Use/Currently Using : No Smoking Status : Former smoker BREE DARNELL LPN - 04/14/2013 8:41 SENIOR FIELD SERVICE ENGINEER Tobacco Use Grid Last Use : quit 1970 BREE DARNELL LPN - 04/14/2013 8:41 SENIOR FIELD SERVICE ENGINEER Alcohol Use : Yes (Comment: ocassioanl [BREE DARNELL LPN - 04/14/2013 8:41 SENIOR FIELD SERVICE ENGINEER] ) BREE DARNELL LPN 04/14/2013 8:41 SENIOR FIELD SERVICE ENGINEER Caffeine Use Grid Caffeine Use : Current Type : Coffee, Soft drinks Frequency : Daily Amount : 4 Last Use : today BREE DARNELL LPN - 04/14/2013 8:41 SENIOR FIELD SERVICE ENGINEER Recreational Drug Use Grid Drug Use : None BREE DARNELL LPN 04/14/2013 8:41 SENIOR FIELD SERVICE ENGINEER Source: [facility] Document Id: [id number] SENIOR FIELD SERVICE ENGINEER!3 Miscellaneous - Conversion, Historical Provider Ser - 04/14/2013 8:40 AM SENIOR FIELD SERVICE ENGINEER Health Assessment Health Assessment Entered On: 04/14/2013 8:41 SENIOR FIELD SERVICE ENGINEER Performed On: 04/14/2013 8:40 SENIOR FIELD SERVICE ENGINEER by BREE DARNELL LPN Health Assessment Complete Health Assessment Complete or Modified : Annual Health Assessment Annual Health Assessment Completed : Yes BREE DARNELL LPN - 04/14/2013 8:40 SENIOR FIELD SERVICE ENGINEER Nutrition Nutrition Risk Factors by History Adult : None BREE DARNELL LPN 04/14/2013 8:40 SENIOR FIELD SERVICE ENGINEER Functional Current Daily Living Assistance : None BREE DARNELL LPN 04/14/2013 8:40 SENIOR FIELD SERVICE ENGINEER Dependent Habits Tobacco Use/Currently Using : No Smoking Status : Former smoker BERE DANRELL LPN - 04/14/2013 8:40 SENIOR FIELD SERVICE ENGINEER Tobacco Use Grid Last Use : quit 1970 BREE DARNELL LPN - 04/14/2013 8:40 SENIOR FIELD SERVICE ENGINEER Caffeine Use Grid Caffeine Use : Current Type : Coffee Frequency : Daily Amount : 4 Last Use : today BREE DARNELL LPN - 04/14/2013 8:40 SENIOR FIELD SERVICE ENGINEER Recreational Drug Use Grid Drug Use : None BREE DARNELL LPN - 04/14/2013 8:40 SENIOR FIELD SERVICE ENGINEER Psychosocial Domestic Abuse Concerns : None Marital Status : BREE DANRELL LPN 04/14/2013 8:40 SENIOR FIELD SERVICE ENGINEER Advance Directive Advanced Directives : No BREE DARNELL LPN 04/14/2013 8:40 SENIOR FIELD SERVICE ENGINEER Educ Needs Learning Style Preference Adult Grid Patient : Demonstration, Printed materials, Verbal explanation, Video/Educational TV Family : Demonstration, Printed materials, Verbal explanation, Video/Educational TV BREE DARNELL LPN - 04/14/2013 8:40 SENIOR FIELD SERVICE ENGINEER [facility] Document Id: [id number] SENIOR FIELD SERVICE ENGINEER!33 documented in this encounter Plan of Treatment Not on filedocumented as of this encounter Procedures Procedure Name Priority Date/Time Associated Diagnosis Comme nts LIPID PANEL, S Routine 04/14/2013 9:49 AM Results for this SENIOR FIELD SERVICE ENGINEER procedure are i n the results section. BASIC METABOLIC Routine 04/14/2013 9:49 AM Result s for this PANEL, S/P SENIOR FIELD SERVICE ENGINEER procedure are i n the results section. THINPREP SCREEN HPV Routine 04/14/2013 9:40 AM Re sults for this REFLEX SENIOR FIELD SERVICE ENGINEER procedure are i n the results section. documented in this encounter Results (ABNORMAL) BMP (Basic Metabolic Panel) (04/14/2013 9:49 AM SENIOR FIELD SERVICE ENGINEER) P athologist Signature BUN (Blood Urea 10 [...] / Volume Laterality Blood 04/14/2013 9:49 AM SENIOR FIELD SERVICE ENGINEER Lui Roy M.D. LAB BLOOD ADD-ON Performing Organization Address City/State/ZIP Code Phon e Number POWERCHART (ABNORMAL) Lipid Panel (04/14/2013 9:49 AM SENIOR FIELD SERVICE ENGINEER) Patholo gist Method Time Signature Cholesterol, 179 0 - 200 POWERCHART Total MGDL HX HDL 62.0 (H) 40.0 - POWERCHART 60.0 MGDL Triglycerides 80 0 - 150 POWERCHART MGDL Calculated LDL 101 (H) 0 - 100 POWERCHART MGDL Specimen (Source) Anatomical Collection Method Collection Time Re ceived Time Location / / Volume Laterality Blood 04/14/2013 9:49 AM SENIOR FIELD SERVICE ENGINEER Lui Roy M.D. LAB BLOOD ADD-ON Performing Organization Address City/State/ZIP Code Phon e Number POWERCHART Pathology ThinPrep Screen HPV Reflex (04/14/2013 9:40 AM SENIOR FIELD SERVICE ENGINEER) [facility] Method Time Signature Interpretation [id number] POWERCHART [facility] See Comment POWERCHART [facility] Comment: A. ??ThinPrep Pap Test Screen (Cervical/ Endocervical HPV Reflex): Satisfactory for evaluation. Partially obscuring inflammation. Inadequate endocervical/transformation z one component Negative for intraepithelial lesion or m alignancy. Fungal organisms morphologically consist ent with Alina species HPV testing was performed by [employer] and is negative for HPV types 16,18,31,33,35,39 ,45,51,52,56,58,59 and 68. Comment: An inadequate endocervical/warner sformational zone component is not necessarily an indicati on for immediately repeating the pap. Correlation with the history an d clinical exam are required. [facility] See Comment [facility] Comment: Report electronically signed by Jimmy Prescott, SCT(ASCP) 04/25/2013 10:58 Interpreted by: Wolfgang Boyd, RHONA(ASCP) [facility] See Comment POWERCHART Comment: A. ??ThinPrep Pap Test Screen (Cervical/ Endocervical HPV Reflex): Received cloudy specimen in ThinPrep via l. Test Performed by: [place] [address] Wood Drilling Machine Operator: Varinder tucker III, M.D. Specimen (Source) Anatomical Collection Method Collection Time Re ceived Time Location / / Volume Laterality Cervix/Endocervix 04/14/2013 9:40 AM SENIOR FIELD SERVICE ENGINEER Lui Roy M.D. LAB PAP PATHDX ORDERAB LES Performing Organization Address City/State/ZIP Code Phon e Number POWERCHART documented in this encounter Visit Diagnoses Not on filedocumented in this encounter
--- OUTSIDE RECORDS SUMMARY | 2022-04-01 13:52 | XMS_ITS | Encounter Summary ---
:1945 Author Organization [facility] Address [address] [place] [address] Care Team Providers Name Role Phone Unavailable Primary Care Provider Unavailable Encounter Details Date Type Department Care Team Description 02/21/2014 Hospital Encounter HX [facility] FBHB FAMILYPRA Luisa Crockett i, M.D. [address] [place] [address] (Wo rk) Social History Tobacco [...] Comments Blood Pressure 118/70 02/21/2014 10:41 AM PAY STATION DEPARTMENT MANAGER Pulse 60 02/21/2014 10:41 AM PAY STATION DEPARTMENT MANAGER Temperature - - Respiratory Rate - - Oxygen Saturation - - Inhaled Oxygen Concentration - - Weight - - Height 164 cm (5' 4.57) 02/21/2014 10:41 AM PAY STATION DEPARTMENT MANAGER Body Mass Index - - documented [...] Whitten M.D. - 02/21/2014 10:08 AM CST [id number] CHIEF COMPLAINT/ REASON FOR VISIT Left foot [...] their behalf by Melanie Alaniz, a trained medical chief technician. The creation of this record is based on the scribe's personal observations and the provider's statements to them. This document has been arti cked and approved by the attending provider. Luisa Ireland M.D./anderson Electronically Signed By: LUISA WHITTEN MD On: 06/15/2014 01:32 PM Source: [facility] MHSDOLBEYNONRADSYS Document Id: [id number] STATION DEPARTMENT MANAGER documented in this encounter Miscellaneous Notes Miscellaneous - Vanessa Monroy C.M.A. - 02/21/2014 10:41 AM CST Adult Drawer Fitter Intake/History Adult Drawer Fitter Intake/History Entered On: 02/21/2014 10:45 PAY STATION DEPARTMENT MANAGER Performed On: 02/21/2014 10:41 PAY STATION DEPARTMENT MANAGER by VANESSA MONROY Intake Chief Complaint : left foot pain [...] to: 5 ft 5 inch(es), 65 inch(es)) VANESSA MONROY - 02/21/2014 10:41 PAY STATION DEPARTMENT MANAGER General Info Information Given By : Patient Languages : Slovak Is Patient Female and 13-50 no hysterectomy : No VANESSA MONROY - 02/21/2014 10:41 PAY STATION DEPARTMENT MANAGER Subjective Pain Symptoms : Yes VANESSA MONROY - 02/21/2014 10:41 PAY STATION DEPARTMENT MANAGER Pain Pain Assessment Grid Pain 1 Location : Foot Laterality : Left VANESSA MONROY - 02/21/2014 10:41 PAY STATION DEPARTMENT MANAGER Dependent Habits Tobacco Use/Currently Using : No Exposure to Tobacco Smoke : Other: quit smoking at age 22 Smoking Status : Former smoker VANESSA MONROY - 02/21/2014 10:41 PAY STATION DEPARTMENT MANAGER Tobacco Use Grid Last Use : quit 1970 VANESSA MONROY - 02/21/2014 10:41 PAY STATION DEPARTMENT MANAGER Caffeine Use Grid Caffeine Use : Current Type : Coffee, Soft drinks Frequency : Daily Amount : 4 Last Use : today VANESSA MONROY - 02/21/2014 10:41 PAY STATION DEPARTMENT MANAGER Recreational Drug Use Grid Drug Use : None VANESSA MONROY - 02/21/2014 10:41 PAY STATION DEPARTMENT MANAGER ID Screen Travel Within Last 21 Days : No VANESSA MONROY - 02/21/2014 10:41 PAY STATION DEPARTMENT MANAGER Source: [facility] POWERCHART Document Id: [id number] PAY STATION DEPARTMENT MANAGER!43 STATION DEPARTMENT MANAGER documented in this encounter Plan of Treatment Not on filedocumented as of this encounter Visit Diagnoses Not on filedocumented in this encounter
--- OUTSIDE RECORDS SUMMARY | 2022-04-01 13:52 | XMS_ITS | Encounter Summary ---
:1945 Author Organization [facility] Address [address] [place] [address] Care Team Providers Name Role Phone Unavailable Primary Care Provider Unavailable Encounter Details Date Type Department Care Team Description 04/03/2013 Hospital Encounter HX [facility] FAMILYPRA MyrJulieta carrillo, HAND PRESSER, C.N.P. [address] [place] [address] (Wo rk) Social History Tobacco [...] Comments Blood Pressure 108/58 04/03/2013 1:47 PM FRONT OF HOUSE MANAGER Pulse 80 04/03/2013 1:47 PM FRONT OF HOUSE MANAGER Temperature - - Respiratory Rate 20 04/03/2013 1:47 PM FRONT OF HOUSE MANAGER Oxygen Saturation - - Inhaled Oxygen Concentration - - Weight 58 kg (127 lb 13.9 oz) 04/03/2013 1:47 PM FRONT OF HOUSE MANAGER Height 162 cm (5' 3.78) 04/03/2013 1:47 PM FRONT OF HOUSE MANAGER Body Mass Index 22.1 04/03/2013 1:47 PM FRONT OF HOUSE MANAGER documented in this encounter Medications at [...] ORION, C.N.P. - 04/03/2013 1:38 PM CST [id number] CHIEF COMPLAINT/REASON FOR VISIT 1. Sinus congestion 2. Chest congestion with cough HISTORY OF PRESENT ILLNESS Isadora states she is returning from a long weekend in [place] and developed a sinus infection. She has had a lot of pressure over her maxillary sinuses. She has had postnasal drip. She is coughing. She usually uses albuterol when she has chest congestion but she did not have it with her in [place]. She has not been home yet but [...] GARCIA CNP On: 04/04/2013 12:04 PM Source: [facility] MHSDOLBEYNONRADSYS Document Id: [id number] T OF HOUSE MANAGER documented in this encounter Miscellaneous Notes Miscellaneous - Emi Garcia APRN, C.N.P. - 04/03/2013 2:01 PM CST Ambulatory Patient Summary [address] [address] Visit Information Name: ISADORA BACK [facility] Number: [id number] Current Date: 04/03/2013 14:01:13 Physicians [...] day x 10 day(s) New Routed to [address] DEJA NOVAK [id number] LORazepam (lorazepam 0.5 mg oral tablet) 1 [...] Date Time Location Reason Provider 04/07/2013 14:30 FBHB Mammo [facility] Room 1 04/14/2013 08:30 [facility] FamilyPrac annual exam Beka SOTO, Lui Dozier Attention: Contact your local Clinic if further appointment detail needed. Your Goals/Additional instructions: Source: [facility] POWERCHART Document Id: [id number] T OF HOUSE MANAGER Miscellaneous - Emi Garcia APRN, C.N.P. - 04/03/2013 2:01 PM CST Ambulatory Depart Summary [place] [address] [place] [address] Visit Information Name: ISADORA BACK [facility] Number: [id number] Visit Date: 04/03/2013 14:01:11 Attending [...] day x 10 day(s) New Routed to [address] [id number] LORazepam (lorazepam 0.5 mg oral tablet) 1 [...] in case of emergency. Additional Information: Source: [facility] POWERCHART Document Id: [id number] T OF HOUSE MANAGER Miscellaneous - Junior Mcclendon L.P.N. - 04/03/2013 1:47 PM CST Adult Solar Project Coordination Specialist Intake/History Adult Solar Project Coordination Specialist Intake/History Entered On: 04/03/2013 13:48 FRONT OF HOUSE MANAGER Performed On: 04/03/2013 13:47 FRONT OF HOUSE MANAGER by JUNIOR MCCLENDON LPN Intake Chief Complaint : cold Temperature [...] Mass Index : 22.1 kg/m2 JUNIOR MCCLENDON LOT PORTER - 04/03/2013 13:47 FRONT OF HOUSE MANAGER General Info Information Given By : Patient Languages : Icelandic JUNIOR MCCLENDON LOT PORTER - 04/03/2013 13:47 FRONT OF HOUSE MANAGER Subjective Pain Symptoms : No JUNIOR MCCLENDON LPN - 04/03/2013 13:47 FRONT OF HOUSE MANAGER Dependent Habits Tobacco Use/Currently Using : No Smoking Status : Former smoker JUNIOR MCCLENDON LOT PORTER - 04/03/2013 13:47 FRONT OF HOUSE MANAGER Tobacco Use Grid Last Use : quit 1970 JUNIOR MCCLENDON LOT PORTER 04/03/2013 13:47 FRONT OF HOUSE MANAGER Caffeine Use Grid Caffeine Use : Current Type : Coffee Frequency : Daily Amount : 4 Last Use : today JUNIOR MCCLENDON LPN 04/03/2013 13:47 FRONT OF HOUSE MANAGER Recreational Drug Use Grid Drug Use : None JUNIOR MCCLENDON LPN 04/03/2013 13:47 FRONT OF HOUSE MANAGER Source: [facility] POWERCHART Document Id: [id number] FRONT OF HOUSE MANAGER!39 T OF HOUSE MANAGER documented in this encounter Plan of Treatment Not on filedocumented as of this encounter Visit Diagnoses Not on filedocumented in this encounter
--- OUTSIDE RECORDS SUMMARY | 2022-04-01 13:52 | XMS_ITS | Encounter Summary ---
:1945 Author Organization [facility] Address [address] [place] [address] Care Team Providers Name Role Phone Unavailable Primary Care Provider Unavailable Encounter Details Date Type Department Care Team Description 01/23/2014 Hospital Encounter HX [facility] FAMILYPRA Etta Jamil M.D. [address] [place], [place] [address] (Wo rk) Social History [...] Jamil M.D. - 01/23/2014 2:31 PM CDT [id number] Patient is a 68-year-old female with an [...] JAMIL MD On: 01/25/2014 08:28 AM Source: [facility] MHSDOLBEYNONRADSYS Document Id: [id number] documented in this encounter Nursing Notes Jose [...] be told to take ibuprofen or other zvew-soy-wvqadgb medications. These help relieve inflammation in your [...] within 3 days of taking antibiotics ?? 0610-2022 [place] [address]. All rights reserved. This information is not intended as a substitute for professional medical care. Always follow your healthcare professional's instructions. This document has images extracted. Please consider using [employer] for all your patient education needs. Source: [facility] POWERCHART Document Id: [id number] Jose G Jamil M.D. - 01/23/2014 3:02 [...] be told to take ibuprofen or other iasu-pqy-piyerbb medications. These help relieve inflammation in your [...] within 3 days of taking antibiotics ?? 2430-2081 [facility], [address] [place] [address]. All rights reserved. This information is not intended as a substitute for professional medical care. Always follow your healthcare professional's instructions. This document has images extracted. Please consider using [employer] for all your patient education needs. Source: [facility] POWERCHART Document Id: [id number] documented in this encounter Miscellaneous Notes Miscellaneous - Jose G Jamil M.D. - 01/23/2014 3:03 PM CDT Ambulatory Patient Summary [address] [id number] Visit Information Name: ISADORA BACK [facility] Number: [id number] Current Date: 01/23/2014 [...] two times a day New Routed to [place] [address] [facility] [address] LORazepam (lorazepam 0.5 mg oral tablet) 1 [...] be told to take ibuprofen or other pbkg-dlx-xuijytn medications. These help relieve inflammation in your [...] within 3 days of taking antibiotics ?? 4790-6953 Mal[facility] Lemus, [address] [place] [address], [place] [address]. All rights reserved. This information is not intended as a substitute for professional medical care. Always follow your healthcare professional's instructions. Your Goals/Additional instructions: This document has images extracted. Please consider using [employer] for all your patient education needs. Source: [facility] POWERCHART Document Id: [id number] Miscellaneous - Jose G Jamil M.D. - 01/23/2014 3:03 PM CDT Ambulatory Discharge Medication List [place] [address] [facility] [place] [id number] Visit Information Name: ISADORA BACK [facility] Number: [id number] Visit Date: 01/23/2014 15:03:10 Attending Provider: JOSE G JAMIL MD Primary Care Provider: LUI GAUTHIER MD FRANCIS [...] two times a day New Routed to [place] [address] [place] [address] LORazepam (lorazepam 0.5 mg oral tablet) 1 [...] MD Signed On:23-JAN-2014 15:02:39 Additional Information: Source: [facility] POWERCHART Document Id: [id number] Miscellaneous - Maribel Jackman L.PEldaN. - 01/23/2014 2:34 PM CDT Adult Home Sales Consultant Intake/History Adult Home Sales Consultant Intake/History Entered On: 01/23/2014 14:39 CDT Performed [...] Preferred Communication Mode : Verbal Languages : Pashto Is Patient Female and 13-50 no hysterectomy : No MARIBEL JACKMAN - 01/23/2014 14:34 CDT Subjective Pain Symptoms : Yes MARIBEL JACKMAN - 01/23/2014 14:34 CDT Pain Pain Assessment Grid Pain 1 Location : Chest (Comment: when coughing [MARIBEL JACKMAN - 01/23/2014 14:34 CDT] ) Laterality : [...] : 4 Last Use : today MARIBEL JACKMANYL - 01/23/2014 14:34 CDT Recreational Drug Use Grid Drug Use : None MARIBEL JACKMANYL - 01/23/2014 14:34 CDT [facility] Document Id: [id number] CDT!47 documented in this encounter Plan of Treatment Not on filedocumented as of this encounter Visit Diagnoses Not on filedocumented in this encounter
--- OUTSIDE RECORDS SUMMARY | 2022-04-01 13:52 | XMS_ITS | Encounter Summary ---
:1945 Author Organization [facility] Address [address] [place] [address] Care Team Providers Name Role Phone Unavailable Primary Care Provider Unavailable Encounter Details Date Type Department Care Team Description 11/09/2013 Hospital Encounter HX [facility] FAMILYPRA MyrJulieta carrillo, SENIOR PROFESSIONAL SERVICES CONSULTANT, C.N.P. [address] [place] [address] (Wo rk) Social History Tobacco [...] as of this encounter Progress Notes Emi Singletary, ORION, C.N.P. - 11/09/2013 4:23 PM CDT [id number] CHIEF COMPLAINT/REASON FOR VISIT Left heel pain. [...] of it counseling and coordinating care. Emi Singletary CNP/rolando Electronically Signed By: EMI SINGLETARY CNP On: 11/10/2013 01:28 PM Source: [facility] MHSDOLBEYNONRADSYS Document Id: [id number] documented in this encounter Nursing Notes Emi Singletary APRN, C.N.P. - 11/09/2013 4:43 PM CDT Ambulatory Patient Education The following Patient Education Materials have been given to the patient: Patient Education Materials: Orthopaedics R.I.C.E. Orthopaedics [address] R.I.C.E. R.I.C.E. stands for Rest, Ice, Compression, [...] worsens and isnot improved with elevation ?? 1328-4018 [place] [address]. All rights reserved. This information is not intended as a substitute for professional medical care. Always follow your healthcare professional's instructions. This document has images extracted. Please consider using [employer] for all your patient education needs. Source: [facility] POWERCHART Document Id: [id number] documented in this encounter Miscellaneous Notes Miscellaneous - Emi Singletary APRN, C.N.P. - 11/09/2013 4:43 PM CDT Ambulatory Patient Summary [address] [id number] Visit Information Name: ISADORA BACK [facility] Number: [id number] Current Date: 11/09/2013 16:43:08 Physicians Attending Provider: EMI SINGLETARY CNP Primary Care Provider: LUI GAUTHIER MD [...] case of emergency. Electronically Signed By: EMI SINGLETARY CNP Signed On:09-NOV-2013 16:42:36 Your Allergies & [...] local Clinic if further appointment detail needed. [address] R.I.C.E. R.I.C.E. stands for Rest, Ice, Compression, [...] worsens and isnot improved with elevation ?? 3117-4319 [place] [address]. All rights reserved. This information is not intended as a substitute for professional medical care. Always follow your healthcare professional's instructions. Your Goals/Additional instructions: This document has images extracted. Please consider using [employer] for all your patient education needs. Source: [facility] POWERCHART Document Id: [id number] Miscellaneous - Eim Singletary APRN, C.N.P. - 11/09/2013 4:43 PM CDT Ambulatory Discharge Medication List [address] [place] [id number] Visit Information Name: ISADORA BACK [facility] Number: [id number] Visit Date: 11/09/2013 16:43:07 Attending Provider: EMI SINGLETARY CNP Primary Care Provider: LUI GAUTHIER MD [...] case of emergency. Electronically Signed By: EMI SINGLETARY CNP Signed On:09-NOV-2013 16:42:36 Additional Information: Source: [facility] POWERCHART Document Id: [id number] Miscellaneous - Michelle Kwong L.P.N. - 11/09/2013 4:34 PM CDT Adult Associate Scientist Intake/History Adult Associate Scientist Intake/History Entered On: 11/09/2013 16:37 CDT Performed [...] 1.59 Body Mass Index : 20.52 kg/m2 VARGHESE MICHELLEANIYAH ADKINS LPN 11/09/2013 16:34 CDT General Info Information Given By : Patient Languages : Telugu MICHELLE KWONG LUCILLE PRASAD 11/09/2013 16:34 CDT Subjective Pain Symptoms : Yes LIDIAMIKOAliya MICHELLE ADKINS LPN 11/09/2013 16:34 CDT Pain Pain Assessment Grid Pain 1 Location : Foot Laterality : Other: Left heel Intensity : 8 VARGHESE MICHELLE ADKINS LPN 11/09/2013 16:34 CDT Dependent Habits Tobacco Use/Currently Using : No Exposure to Tobacco Smoke : Other: quit smoking at age 22 Smoking Status : Former smoker MICHELLE KWONG LPN 11/09/2013 16:34 CDT Tobacco Use Grid Last Use : quit 1970 MARISELAliya MICHELLE ADKINS LPN 11/09/2013 16:34 CDT Caffeine Use Grid Caffeine Use : Current Type : Coffee, Soft drinks Frequency : Daily Amount : 4 Last Use : today MICHELLE KWONG LPN 11/09/2013 16:34 CDT Recreational Drug Use Grid Drug Use : None MICHELLE KWONG LPN 11/09/2013 16:34 CDT Source: [employer] Document Id: [id number] CDT!46 documented in this encounter Plan of [...] or more views 11/09/2013 16:42:50 Addendum by Oneil Lua M.D. o n [...] pathology. Procedure Note Kj Ramos M.D. / Bing Lua M.D. - 08/29/2016 Technique: Multiple views of [...] radiographic evidence of acute osseous pathology. Tayler Long(RMercedes Hearn(R)(Autumn) IMG DIAGNOSTIC IMAG ING PROCEDURES documented in this encounter Visit Diagnoses Not on filedocumented in this encounter
--- OUTSIDE RECORDS SUMMARY | 2022-04-01 13:52 | XMS_ITS | Encounter Summary ---
:1945 Author Organization [facility] Address [address] [place] [address] Care Team Providers Name Role Phone Unavailable Primary Care Provider Unavailable Encounter Details Date Type Department Care Team Description 01/04/2013 Hospital Encounter HX [facility] Oc Barnett, ORION, C.N.P. [address] [place], [place] [address] (Wo rk) Social History [...] Progress Notes Oc Trujillo, ORION, C.N.P. - 01/04/2013 4:05 PM CDT [id number] CHIEF COMPLAINT/REASON FOR VISIT Continued vaginal irritation. [...] yeast infection. She did self- treat with htfw-aye-muahgyw Monistat at that point but she notes that her symptoms really have not improved. She was in to the [facility] to see her primary care provider Soledad [...] and an explanation of these results. Oc Trujillo CNP/lorin Electronically Signed By: OC TRUJILLO RN, CNP On: 01/06/2013 09:55 AM Source: [facility] Document Id: [id number] documented in this encounter Miscellaneous Notes Miscellaneous - Oc Trujillo APRN, C.N.P. - 01/04/2013 4:42 PM CDT Ambulatory Depart Summary [address] [address] Visit Information Name: ISADORA BACK [facility] Number: [id number] Visit Date: 01/04/2013 16:42:30 Attending Provider: OC TRUJILLO RN MARKET GARDEN WORKER Primary Care Provider: LUI GAUTHIER MD ISADORA [...] your provider for clarification. Additional Information: Source: [facility] POWERCHART Document Id: [id number] Miscellaneous - Oc Trujillo APRN, C.N.P. - 01/04/2013 4:42 PM CDT Ambulatory Patient Summary [place] [address] [place] [address] Visit Information Name: ISADORA BACK [facility] Number: [id number] Current Date: 01/04/2013 16:42:31 Physicians Attending Provider: OC TRUJILLO RN MARKET GARDEN WORKER Primary Care Provider: LUI GAUTHIER MD Your [...] No Appointments found Your Goals/Additional instructions: Source: [facility] POWERCHART Document Id: [id number] Miscellaneous - Lauren Gamez RMigel - 01/04/2013 4:10 PM CDT Adult Welt Treater Intake/History Adult Welt Treater Intake/History Entered On: 01/04/2013 16:10 CDT Performed [...] 01/04/2013 16:10 CDT General Info Languages : Khmer LAUREN CHAVEZ - 01/04/2013 16:10 CDT Subjective Pain Symptoms : No LAUREN CHAVEZ - 01/04/2013 16:10 CDT Dependent Habits Tobacco Use/Currently Using : No Smoking Status : Former smoker LAUREN CHAVEZ - 01/04/2013 16:10 CDT Tobacco Use Grid Last Use : quit 1970 LAUREN CHAVEZ - 01/04/2013 16:10 CDT Source: [employer] Document Id: [id number] CDT!21 documented in this encounter Plan of Treatment Not on filedocumented as of this encounter Visit Diagnoses Not on filedocumented in this encounter
--- OUTSIDE RECORDS SUMMARY | 2022-04-01 13:52 | XMS_ITS | Encounter Summary ---
:1945 Author Organization [facility] Address [address] [place] [address] Care Team Providers Name Role Phone Unavailable Primary Care Provider Unavailable Encounter Details Date Type Department Care Team Description 05/29/2014 [facility] Luisa Pearson M.D. [address] [place], [place] [address] (Wo rk) Social History [...] 162 cm (5' 3.78) 05/29/2014 3:23 PM CUPOLA HOIST OPERATOR Body Mass Index - - documented [...] 4:00 PM Re sults for this BILATERAL CUPOLA HOIST OPERATOR procedure are i n the results section. documented in this encounter Results BI Breast Screening Bilateral (05/29/2014 4:00 PM CUPOLA HOIST OPERATOR) Anatomical Region Laterality Modality Breast Bilateral Mammography Specimen (Source) Anatomical Collection Method Collection Time Re ceived Time Location / / Volume Laterality 05/29/2014 4:00 PM CUPOLA HOIST OPERATOR Addenda Addendum by Oneil Lua M.D. o n 05/29/2014 4:00 PM CUPOLA HOIST OPERATOR RAD^^^OW MA Mammo Screening w ??CADD 05/29/2014 16:00:00 Addendum by Oneil Lua M.D. o n 05/29/2014 3:41 PM CUPOLA HOIST OPERATOR RAD^^^OW MA Mammo Screening w ??CADD 05/29/2014 15:41:13 Addendum by Oneil Lua M.D. o n 05/29/2014 4:00 PM CUPOLA HOIST OPERATOR RAD^^^MA MA MAMMO SCREENING W CADD 05/29/2014 16:00:00 Addendum by Oneil Lua M.D. o n 05/29/2014 3:41 PM CUPOLA HOIST OPERATOR RAD^^^MA MA MAMMO SCREENING W CADD 05/29/2014 15:41:13 Impressions 05/29/2014 4:19 PM CUPOLA HOIST OPERATOR Stable negative mammogram, BIRADS 1. Yearly mammograms are recommended. MAMMOGRAPHY - GENERAL OBSERVATIONS: The reported false negative rate for mammography is 15-20%. It cannot be used, therefore, to replace the regular physical examination. A norm al or noncontributory mammogram report also should not deter t he aggressive further workup of any suspected palpable masses. Narrative 05/29/2014 4:19 PM CUPOLA HOIST OPERATOR HISTORY: Screening mammogram. Technique: Bilateral digital mammograms [...] workup of any suspected palpable masses. Ari Long(R)(M) IMG BI PROCEDURES documented in this encounter Visit Diagnoses Not on filedocumented in this encounter
--- OUTSIDE RECORDS SUMMARY | 2022-04-01 13:52 | XMS_ITS | Encounter Summary ---
:1945 Author Organization [facility] Address [address] [place] [address] Care Team Providers Name Role Phone Unavailable Primary Care Provider Unavailable Encounter Details Date Type Department Care Team Description 08/31/2013 Hospital Encounter HX NO MAPPING Oc Zafar A PRN, C.N.P. [address] [place], [place] [phone] (Wo rk) Social History [...] Body Mass Index 20.37 04/14/2013 8:41 AM KEYMODULE ASSEMBLY SUPERVISOR documented in this encounter Medications at [...] ORION, C.N.P. - 08/31/2013 2:29 PM CDT [id number] CHIEF COMPLAINT/REASON FOR VISIT Followup for vaginitis. [...] RN, CNP On: 09/01/2013 11:00 AM Source: [facility] MHSDOLBEYNONRADSYS Document Id: [id number] documented in this encounter Miscellaneous Notes Miscellaneous - Vandana García R.N. - 12/05/2013 4:03 PM CDT Lorazepam Document Contains Addenda Addendum by VANDANA GARCÍA on 06 December 2013 12:08:37 CDT Phone call to pt. She is going to schedule an appt for 12/14/13.... Addendum by OC AZFAR RN, CNP on 06 December 2013 08:53:14 CDT From: OC ZAFAR RN, CNP To: MARCIO Jesus Medication Refill; Sent: 12/06/2013 08:53:14 CDT Subject: RE: Lorazepam Please ask her to schedule an appointment to discuss her usage. Maureen Christiansen Addendum by NICCI RODRIGUEZ on 05 December 2013 17:05:02 CDT From: NICCI RODRIGUEZ (FB [place] Medication Refill) To: OC ZAFAR RN, CNP; Sent: 12/05/2013 17:05:02 CDT Subject: FW: Lorazepam please see below. Addendum by EMI GARCIA CNP on 05 December 2013 16:11:51 CDT From: EMI GARCIA HAND COLLATOR To: FB [place] Medication Refill; Sent: 12/05/2013 16:11:51 CDT Subject: [...] Call to Pharmacy ( ) Patient will orange picker machine operator Script ( ) Mail Rxto Patient Source: [facility] POWERCHART Document Id: [id number] Miscellaneous - Tanja Hernandez, L.P.N. - 09/05/2013 1:55 PM CDT General Message Document Contains Addenda Addendum by OC ZAFAR RN, CNP on 12 Sep 2013 09:45:00 CDT From: OC ZAFAR RN, CNP To: TANJA HERNANDEZ LPN; Sent: 09/12/2013 09:45:00 [...] try the other things you mentioned. Source: [facility] POWERCHART Document Id: [id number] Miscellaneous - Oc Zafar, ORION, C.N.P. - 08/31/2013 3:11 PM CDT Ambulatory Patient Summary [address] [id number] Visit Information Name: ISADORA BACK [facility] Number: [id number] Current Date: 08/31/2013 15:11:44 Physicians Attending Provider: OC ZAFAR RN HAND COLLATOR Primary Care Provider: LUI GAUTHIER MD ISADORA [...] emergency. Electronically Signed By: OC ZAFAR RN HAND COLLATOR Signed On:31-AUG-2013 15:11:38 Your Allergies & Intolerances [...] appointment detail needed. Your Goals/Additional instructions: Source: [facility] Blazent Document Id: [id number] Miscellaneous - Oc Zafar APRN, C.N.P. - 08/31/2013 3:11 PM CDT Ambulatory Discharge Medication List [address] [id number] Visit Information Name: ISADORA BACK [facility] Number: [id number] Visit Date: 08/31/2013 15:11:42 Attending Provider: OC ZAFAR RN HAND COLLATOR Primary Care Provider: LUI GAUTHIER MD ISADORA [...] emergency. Electronically Signed By: OC ZAFAR RN HAND COLLATOR Signed On:31-AUG-2013 15:11:38 Additional Information: Source: [facility] POWERCHART Document Id: [id number] Miscellaneous - Tanja Hernandez, L.P.N. - 08/31/2013 2:37 PM CDT Adult Oracle Ebs Developer Intake/History Adult Oracle Ebs Developer Intake/History Entered On: 08/31/2013 14:40 CDT Performed [...] Preferred Communication Mode : Verbal Languages : Serbian TANJA HERNANDEZ LPN - 08/31/2013 14:37 CDT Subjective Pain Symptoms : No TANJA HERNANDEZ LPN - 08/31/2013 14:37 CDT Dependent Habits Tobacco Use/Currently Using : No Tobacco Use/Last 12 months : No Tobacco Use/Advised to Quit : No Exposure to Tobacco Smoke : Other: quit smoking at age 22 Smoking Status : Former smoker TANJA HERNANDEZ WEAVING LOOM OPERATOR - 08/31/2013 14:37 CDT Tobacco Use Grid Last Use : quit 1970 TANJA HERNANDEZ WEAVING LOOM OPERATOR - 08/31/2013 14:37 CDT Alcohol Use : Yes TANJA HERNANDEZ WEAVING LOOM OPERATOR - 08/31/2013 14:37 CDT Caffeine Use Grid Caffeine Use : Current Type : Coffee, Soft drinks Frequency : Daily Amount : 4 Last Use : today TANJA HERNANDEZ WEAVING LOOM OPERATOR - 08/31/2013 14:37 CDT Recreational Drug Use Grid Drug Use : None TANJA HERNANDEZ WEAVING LOOM OPERATOR - 08/31/2013 14:37 CDT Source: [facility] Sai MedisoftCHART Document Id: [id number] CDT!41 documented in this encounter Plan of [...] CDT Laboratory developed test. Test Performed by: [address] [address] Cleaner Wall: Varinder tucker III, M.D. Oc Zafar APRN, C.N.P. LAB HISTORICAL ORDERS Performing Organization Address City/[facility] [[email or web address]] Code Phon e Number POWERCHART HX-Ureaplasma Urea PCR (08/31/2013 4:33 PM CDT) Patholo gist Method Time Signature Ureaplasma Negative POWERCHART urealyticum PCR Specimen (Source) Anatomical Collection Method Collection Time Re ceived Time Location / / Volume Laterality 08/31/2013 4:33 PM CDT Oc Zafar APRN C.N.P. LAB HISTORICAL ORDERS Performing Organization Address [facility] Phon e Number POWERCHART HX-Ureapl PCR Src (08/31/2013 4:33 PM CDT) P athologist Signature HXUreapl PCR genital POWERCHART Src-[place] Specimen (Source) Anatomical Collection Method Collection Time Re ceived Time Location / / Volume Laterality 08/31/2013 4:33 PM CDT Oc Zafar APRN, C.N.P. LAB HISTORICAL ORDERS Performing Organization Address [facility] Phon e Number POWERCHART documented in this encounter Visit Diagnoses Not on filedocumented in this encounter
--- OUTSIDE RECORDS SUMMARY | 2022-04-01 13:52 | XMS_ITS | Encounter Summary ---
:1945 Author Organization [facility] Address [address] [place] [address] Care Team Providers Name Role Phone Unavailable Primary Care Provider Unavailable Encounter Details Date Type Department Care Team Description 02/16/2013 Hospital Encounter HX NO MAPPING Oc Zafar A PRN, C.N.P. [address] [place], [place] [phone] (Wo rk) Social History [...] ORION, C.N.P. - 02/16/2013 2:02 PM CDT [id number] CHIEF COMPLAINT/REASON FOR VISIT Continued vaginitis. HISTORY [...] her that there is a specialist in [place], Dr. Chelsea Kevin, PERFORATING MACHINE OPERATOR, who might be a very beneficial person [...] RN, CNP On: 02/17/2013 10:15 AM Source: [facility] MHSDOLBEYNONRADSYS Document Id: [id number] documented in this encounter Miscellaneous Notes Miscellaneous - Oc Zafar APRN, C.N.P. - 02/16/2013 2:53 PM CDT Ambulatory Patient Summary [address] [id number] Visit Information Name: ISADORA BACK [facility] Number: [id number] Current Date: 02/16/2013 14:53:48 Physicians Attending Provider: OC ZAFRA RN, CNP Primary Care Provider: LUI GAUTHIER [...] appointment detail needed. Your Goals/Additional instructions: Source: [facility] POWERCHART Document Id: [id number] Miscellaneous - Oc Zafar APRN, C.N.P. - 02/16/2013 2:53 PM CDT Ambulatory Depart Summary [address] [address] Visit Information Name: ISADORA BACK [facility] Number: [id number] Visit Date: 02/16/2013 14:53:48 Attending Provider: OC ZAFAR RN [facility] Primary Care Provider: LUI GAUTHIER MD [...] your provider for clarification. Additional Information: Source: [facility] POWERCHART Document Id: [id number] Miscellaneous - Conversion, Historical Provider Ser - 02/16/2013 2:07 PM CDT Adult Division Sergeant Intake/History Adult Division Sergeant Intake/History Entered On: 02/16/2013 14:08 CDT Performed [...] Preferred Communication Mode : Verbal Languages : Kenyan AUGUSTUS GUERRERO - 02/16/2013 14:07 CDT Subjective Pain Symptoms : No AUGUSTUS GUERRERO S - 02/16/2013 14:07 CDT Dependent Habits Tobacco Use/Currently Using : No Smoking Status : Former smoker AUGUSTUS GUERRERO S - 02/16/2013 14:07 CDT Tobacco Use Grid Last Use : quit 1970 AUGUSTUS GUERRERO S - 02/16/2013 14:07 CDT [facility] [employer] Document Id: [id number] CDT!27 documented in this encounter Plan of Treatment Not on filedocumented as of this encounter Visit Diagnoses Not on filedocumented in this encounter
--- OUTSIDE RECORDS SUMMARY | 2022-04-01 13:53 | XMS_ITS | Encounter Summary ---
:1945 Author Organization [facility] Address [address] [place] [address] Care Team Providers Name Role Phone Unavailable Primary Care Provider Unavailable Encounter Details Date Type Department Care Team Description 09/06/2012 Hospital Encounter HX [facility]KF FAMILYPRA Nacho Duenas, ORION, C.N.P., D. N.P. [address] [place], [place] [address] (Wo rk) Social History [...] APRN, C.N.P. - 09/06/2012 2:29 PM CDT [id number] CHIEF COMPLAINT/REASON FOR VISIT Bladder infection. HISTORY OF PRESENT ILLNESS The patient is a 67-year-old female who presents to the clinic for dysuria for 2 to 3 weeks. Patientstates that she has a pain across her urethra when she urinates. She feels like she has to go to [facility] and it lisa. She started cranberry juice [...] agrees with plan of care. Abel Shafer CNP/mecred Electronically Signed By: ABEL SHAFER CNP On: 10/04/2012 01:17 PM Source: [facility] MHSDOLBEYNONRADSYS Document Id: [id number] documented in this encounter Procedure Notes Conversion, [...] : Negative Test Strip Lot # : [id number] Test Strip Expiration Date : AUGUSTUS GUERRERO Mauricio - 09/06/2012 15:17 CDT Source: [facility] [employer] Video Document Id: [id number] CDT!15 documented in this encounter Miscellaneous Notes Miscellaneous - Abel Duenas, ORION, C.N.P. - 09/06/2012 5:56 PM CDT Ambulatory [place] [address] Visit Information Name: ISADORA BACK [facility] Number: [id number] Current Date: 09/06/2012 17:56:18 Physicians Attending Provider: ABEL SHAFER [facility] Primary Care Provider: LUI GAUTHIER MD Your [...] No Appointments found Your Goals/Additional instructions: Source: [facility] POWERCHART Document Id: [id number] Miscellaneous - Abel Duenas APRN, C.N.P. - 09/06/2012 5:56 PM CDT Ambulatory Depart Summary [address] [address] Visit Information Name: ISADORA BACK [facility] Number: [id number] Visit Date: 09/06/2012 17:56:18 Attending Provider: ABEL SHAFER [facility] Primary Care Provider: LUI GAUTHIER MD FRANCIS [...] your provider for clarification. Additional Information: Source: [facility] POWERCHART Document Id: [id number] Miscellaneous - Abel Duenas APRN, C.N.P. - 09/06/2012 5:16 PM CDT Results Notification Document Contains Addenda Addendum by AUGUSTUS GUERRERO on 09 Sep 2012 16:46:32 CDT 2 unsucessful attempts to call will mail results. From: ABEL SHAFER REVENUE CYCLE ANALYST To: MARCIO Lee [facility] Medicine Nurse; Sent: 09/06/2012 17:16:20 CDT ! Show up: 09/06/2012 22:16:20 [facility] Subject: Results Notification Actions: Notify patient of results Reminder Comments: No yeast, Trich, or BV. (Negative wet prep) Results: Date Result Type Ind Result Name 09/06/2012 MBO Review WET Prep WBC's Source: [facility] SkyfiberCHART Document Id: [id number] Miscellaneous - Conversion, Historical Provider Ser - 09/06/2012 2:33 PM CDT Adult Mobile Crane Operator Intake/History Adult Mobile Crane Operator Intake/History Entered On: 09/06/2012 14:37 CDT Performed [...] Preferred Communication Mode : Verbal Languages : Polish AUGUSTUS GUERRERO 09/06/2012 14:33 CDT Subjective Pain Symptoms : No AUGUSTUS GUERRERO 09/06/2012 14:33 CDT Dependent Habits Tobacco Use/Currently Using : No Smoking Status : Never smoker AUGUSTUS GUERRERO 09/06/2012 14:33 CDT Tobacco Use Grid Last Use : quit 1970 AUGUSTUS GUERRERO 09/06/2012 14:33 CDT [facility] Document Id: [id number] CDT!27 documented in this encounter Plan of [...] Provider LAB HISTORICAL ORDERS Performing Organization Address City/[facility]/ZIP Code Phon e Number POWERCHART Dipstick, POCT, Urine (lab) (09/06/2012 3:18 PM CDT) P athologist Signature Bilirubin, Negative POWERCHART POCT, U Specimen (Source) Anatomical Collection Method Collection Time Re ceived Time Location / / Volume Laterality 09/06/2012 3:18 PM CDT Historical Provider LAB POCT ORDERABLES - DEVICE Performing Organization Address City/[facility]/ZIP Code Phon e Number POWERCHART Dipstick, POCT, Urine (lab) (09/06/2012 3:18 PM CDT) P athologist Signature Specific 1.010 POWERCHART [place], POCT, U Specimen (Source) Anatomical Collection Method Collection Time Re ceived Time Location / / Volume Laterality 09/06/2012 3:18 PM CDT Historical Provider LAB POCT ORDERABLES - DEVICE Performing Organization Address City/[facility]/ZIP Code Phon e Number POWERCHART Dipstick, POCT, [...] POCT ORDERABLES - DEVICE Performing Organization Address City/[facility]/ZIP Code Phon e Number POWERCHART Dipstick, POCT, Urine (lab) (09/06/2012 3:18 PM CDT) P athologist Signature Protein, POCT, Negative POWERCHART U Specimen (Source) Anatomical Collection Method Collection Time Re ceived Time Location / / Volume Laterality 09/06/2012 3:18 PM CDT Historical Provider LAB POCT ORDERABLES - DEVICE Performing Organization Address [facility]/ZIP Code Phon e Number POWERCHART Dipstick, POCT, Urine (lab) (09/06/2012 3:18 PM CDT) Analysis Performed At Patho logist Time Signature Urobilinogen, 0.2 mg/dl POWERCHART POCT, Urine Specimen (Source) Anatomical Collection Method Collection Time Re ceived Time Location / / Volume Laterality 09/06/2012 3:18 PM CDT Historical Provider LAB POCT ORDERABLES - DEVICE Performing Organization Address City/[facility]/ZIP Code Phon e Number POWERCHART HX UA NITRITE POC (09/06/2012 3:18 PM CDT) P athologist Signature Nitrites, Negative POWERCHART POCT, U Specimen (Source) Anatomical Collection Method Collection Time Re ceived Time Location / / Volume Laterality 09/06/2012 3:18 PM CDT Historical Provider LAB HISTORICAL ORDERS Performing Organization Address City/[facility]/ZIP Code Phon e Number POWERCHART Dipstick, POCT, Urine (lab) (09/06/2012 3:18 PM CDT) athologist Signature Leukocytes, Negative POWERCHART POCT, U Specimen (Source) Anatomical Collection Method Collection Time Re ceived Time Location / / Volume Laterality 09/06/2012 3:18 PM CDT Historical Provider LAB POCT ORDERABLES - DEVICE Performing Organization Address [facility] Phon e Number POWERCHART HX UA APPEAR POC (09/06/2012 3:18 PM CDT) athologist Signature Appearance Clear POWERCHART Specimen (Source) Anatomical Collection Method Collection Time Re ceived Time Location / / Volume Laterality 09/06/2012 3:18 PM CDT Historical Provider LAB HISTORICAL ORDERS Performing Organization Address [facility] Phon e Number POWERCHART Dipstick, POCT, Urine (lab) (09/06/2012 3:18 PM CDT) athologist Signature Color Colorless POWERCHART Specimen (Source) Anatomical Collection Method Collection Time Re ceived Time Location / / Volume Laterality 09/06/2012 3:18 PM CDT Historical Provider LAB POCT ORDERABLES - DEVICE Performing Organization Address [facility] Phon e Number POWERCHART Wet Prep Exam, Urogenital (09/06/2012 3:03 PM CDT) athologist Signature HXWet Prep POWERCHART HXFinal No yeast, POWERCHART Trichomonas , clue cells, or sperm seen. Specimen (Source) Anatomical Collection Method Collection Time Re ceived Time Location / / Volume Laterality Vagina 09/06/2012 3:03 PM CDT Abel Duenas APRN, C.N.P., D.N.P. LAB MICROBIOLOGY - GENERAL ORDERABLES Performing Organization Address City/[facility]/ZIP [facility] Phon e Number POWERCHART documented in this encounter Visit Diagnoses Not on filedocumented in this encounter
--- OUTSIDE RECORDS SUMMARY | 2022-04-01 13:53 | XMS_ITS | Encounter Summary ---
:1945 Author Organization [facility] Address [address] [place] [address] Care Team Providers Name Role Phone Unavailable Primary Care Provider Unavailable Encounter Details Date Type Department Care Team Description 04/25/2012 Hospital Encounter HX [facility] FBHB BONE DENS Luisa Crockett i, M.D. [address] [place] [phone] (Wo rk) Social History Tobacco [...] AUGUSTUS GUERRERO on 01 June 2012 16:49:52 DIMENSIONAL INSPECTOR Patient notified. Addendum by ABEL MENDEZ CNP on 01 June 2012 16:12:58 DIMENSIONAL INSPECTOR From: ABEL MENDEZ CNP To: MARCIO Lee Nurse; Sent: 06/01/2012 16:12:58 DIMENSIONAL INSPECTOR Subject: RE: Phone Message Changed to Z-ck. May be viral and antibiotics wouldn't work. From: AUGUSTUS GUERRERO (MARCIO Lee Nurse) To: ABEL MENDEZ CNP; Sent: 06/01/2012 16:09:45 DIMENSIONAL INSPECTOR Subject: Phone Message Caller is: ( x) [...] back cell phone number ( ) [facility] Document Id: [id number] documented in this encounter Plan of Treatment Not on filedocumented as of this encounter Visit Diagnoses Not on filedocumented in this encounter
--- OUTSIDE RECORDS SUMMARY | 2022-04-01 13:53 | XMS_ITS | Encounter Summary ---
:1945 Author Organization [facility] Address [address] [place] [address] Care Team Providers Name Role Phone Unavailable Primary Care Provider Unavailable Encounter Details Date Type Department Care Team Description 12/19/2008 Hospital Encounter HX [facility] OWOC ENT Scot Le M.D. [address] [place], [place] [address] (Wo rk) Social History [...]
--- OUTSIDE RECORDS SUMMARY | 2022-04-01 13:53 | XMS_ITS | Encounter Summary ---
:1945 Author Organization [facility] Address [address] [place] [address] Care Team Providers Name Role Phone Unavailable Primary Care Provider Unavailable Encounter Details Date Type Department Care Team Description 07/18/2008 Hospital Encounter HX NO MAPPING Luisa Roy M.D. [address] [place], [place] [phone] (Wo rk) Social History [...]
--- OUTSIDE RECORDS SUMMARY | 2022-04-01 13:53 | XMS_ITS | Encounter Summary ---
:1945 Author Organization [facility] Address [address] [place] [address] Care Team Providers Name Role Phone Unavailable Primary Care Provider Unavailable Encounter Details Date Type Department Care Team Description 04/06/2012 Hospital Encounter HX [facility] FBHB Nikkie Medel, ACTUARIAL DIRECTOR, C.N.P. [address] [place], [place] [phone] (Wo rk) Social History [...] 11:32 AM R esults for this BILATERAL NUCLEAR TECHNOLOGIST procedure are i n the results section. documented in this encounter Results BI Breast Screening Bilateral (04/06/2012 11:32 AM NUCLEAR TECHNOLOGIST) Anatomical Region Laterality Modality Breast Bilateral Mammography Specimen (Source) Anatomical Collection Method Collection Time Re ceived Time Location / / Volume Laterality 04/06/2012 11:32 AM NUCLEAR TECHNOLOGIST Addenda Addendum by ProviderOneil M.D. o n 04/06/2012 11:32 AM NUCLEAR TECHNOLOGIST RAD^^^OW MA Mammo Screening w ??CADD 04/06/2012 11:32:00 Addendum by Provider, Jacquelyn Riggs o monica 04/06/2012 11:32 AM NUCLEAR TECHNOLOGIST RAD^^^MA MA MAMMO SCREENING W CADD 04/06/2012 11:32:00 Impressions 04/06/2012 4:23 PM NUCLEAR TECHNOLOGIST Stable negative mammogram, BIRADS 1. Yearly mammograms are recommended. MAMMOGRAPHY - GENERAL OBSERVATIONS: The reported false negative rate for mammography is 15-20%. It cannot be used, therefore, to replace the regular physical examination. A norm al or noncontributory mammogram report also should not deter t he aggressive further workup of any suspected palpable masses. Narrative 04/06/2012 4:23 PM NUCLEAR TECHNOLOGIST HISTORY: Screening mammogram. Technique: Bilateral full-field digital [...]
--- OUTSIDE RECORDS SUMMARY | 2022-04-01 13:53 | XMS_ITS | Encounter Summary ---
:1945 Author Organization [facility] Address [address] [place] [address] Care Team Providers Name Role Phone Unavailable Primary Care Provider Unavailable Encounter Details Date Type Department Care Team Description 05/31/2012 Hospital Encounter [facility]X [facility] FBKF FAMILYPRA Nacho Duenas, ORION, C.N.P., D. N.P. [address] [place], [place] [address] (Wo rk) Social History [...] Comments Blood Pressure 100/70 05/31/2012 10:24 AM POULTRY PICKER Pulse 90 05/31/2012 10:24 AM POULTRY PICKER Temperature - - Respiratory Rate 16 05/31/2012 10:24 AM POULTRY PICKER Oxygen Saturation - - Inhaled Oxygen Concentration - - Weight 57.6 kg (126 lb 15.8 oz) 05/31/2012 10:24 AM POULTRY PICKER Height - - Body Mass Index 22.5 04/08/2012 3:23 PM POULTRY PICKER documented in this encounter Medications at Time of Discharge Medication Sig Dispensed Refills Start Date End Date calcium carbonate-vitamin Chew 1 tablet. 0 2009 D3 1,250 mg (500 mg calcium)-400 unit per chewable tablet multivitamin tablet Take 1 tablet by 0 06/28/2009 mouth. documented as of this encounter Progress Notes Abel Duenas APRN, C.N.P. - 05/31/2012 10:16 AM CST [id number] CHIEF COMPLAINT/REASON FOR VISIT Bronchitis HISTORY OF [...] vomiting or chest pain.She has taken an hcbh-lgb-atlclpk Hy-[employer]ee cough and sinus medication. She also [...] children. She is retired from working with [employer]. FAMILY HISTORY Unchanged and see EMR. VITAL [...] breath. Patient was also encouraged to use gcfq-qtq-dkopdss Mucinex to help expel chest and nasal [...] look up her scanned in records from [facility] and was last done in July 2009, and was to be repeated in 3 years due to polyps. This information was given to the patient. Patient was also instructed to return on a nurse-only calendar to have her TDaP updated as well. Patient will followup as needed. Patient verbalizes understanding and agrees with plan of care. Abel Shafer CNP/merced DOCID: [id number] Electronically Signed By: ABEL SHAFER CNP On: 06/15/2012 09:44 PM Source: [facility] MHSDOLBEYNONRADSYS Document Id: [id number] TRY PICKER documented in this encounter Miscellaneous Notes Miscellaneous - Abel Duenas APRN, C.N.P. - 05/31/2012 11:08 AM POULTRY PICKER Ambulatory Patient Summary [address] [address] Visit Information Name: ISADORA BACK [facility] Number: [id number] Visit Date: 05/31/2012 11:08:13 Attending [...] your provider for clarification. Additional Information: Source: [facility] POWERCHART Document Id: [id number] TRY PICKER Miscellaneous - Abel Duenas APRN C.N.P. - 05/31/2012 11:08 AM POULTRY PICKER Ambulatory Depart Summary [address] [address] Visit Information Name: ISADORA BACK [facility] Number: [id number] Visit Date: 05/31/2012 11:08:12 Attending Provider: ABEL SHAFER [facility] Primary Care Provider: LUI GAUTHIER MD ISADORA [...] your provider for clarification. Additional Information: Source: [facility] POWERCHART Document Id: [id number] TRY PICKER Miscellaneous - Conversion, Historical Provider Ser - 05/31/2012 10:24 AM POULTRY PICKER Adult Gas Meter Installer Intake/History Adult Gas Meter Installer Intake/History Entered On: 05/31/2012 10:26 POULTRY PICKER Performed On: 05/31/2012 10:24 POULTRY PICKER by AUGUSTUS GUERRERO S Intake Chief Complaint [...] Dosing Weight Clinic : 57.60kg AUGUSTUS GUERRERO - 05/31/2012 10:24 POULTRY PICKER General Info Information Given By : Patient Preferred Communication Mode : Verbal Languages : Panamanian AUGUSTUS GUERRERO - 05/31/2012 10:24 POULTRY PICKER Subjective Pain Symptoms : No AUGUSTUS GUERRERO 05/31/2012 10:24 POULTRY PICKER Dependent Habits Tobacco Use/Currently Using : No Smoking Status : Former smoker AUGUSTUS GUERRERO 05/31/2012 10:24 POULTRY PICKER Tobacco Use Grid Last Use : quit 1970 AUGUSTUS GUERRERO 05/31/2012 10:24 POULTRY PICKER Allergy Allergies (Active) sulfa drugs Estimated Onset Date: Unspecified ; Created By: ELENO MORALES LPN; Reaction Status: Active ; Category: Drug ; Substance: sulfa drugs ; Type: Allergy ; Updated By: ELENO MORALES LPN; Reviewed Date: 05/31/2012 10:23 POULTRY PICKER Source: [facility] POWERCHART Document Id: [id number] documented in this encounter Plan of Treatment Not on filedocumented as of this encounter Visit Diagnoses Not on filedocumented in this encounter
--- OUTSIDE RECORDS SUMMARY | 2022-04-01 13:53 | XMS_ITS | Encounter Summary ---
:1945 Author Organization [facility] Address [address] [place] [address] Care Team Providers Name Role Phone Unavailable Primary Care Provider Unavailable Encounter Details Date Type Department Care Team Description 01/15/2009 Hospital Encounter HX [facility] OWOC ENT Scot Le M.D. [address] [place], [place] [address] (Wo rk) Social History [...]
--- OUTSIDE RECORDS SUMMARY | 2022-04-01 13:53 | XMS_ITS | Encounter Summary ---
:1945 Author Organization [facility] Address [address] [place] [address] Care Team Providers Name Role Phone Unavailable Primary Care Provider Unavailable Encounter Details Date Type Department Care Team Description 04/06/2012 Hospital Encounter HX [facility] FBHB FAMILYPRA MyrJulieta carrillo, POINT OF CARE TECHNICIAN, C.N.P. [address] [place] [address] (Wo rk) Social History Tobacco [...] Comments Blood Pressure 108/74 04/06/2012 11:00 AM REHAB ASSISTANT Pulse 76 04/06/2012 11:00 AM REHAB ASSISTANT Temperature - - Respiratory Rate 16 04/06/2012 11:00 AM REHAB ASSISTANT Oxygen Saturation - - Inhaled Oxygen Concentration - - Weight 58 kg (127 lb 13.9 oz) 04/06/2012 11:00 AM REHAB ASSISTANT Height 161.5 cm (5' 3.58) 04/06/2012 11:00 AM REHAB ASSISTANT Body Mass Index 22.24 04/06/2012 11:00 AM REHAB ASSISTANT documented in this encounter Medications at Time of Discharge Medication Sig Dispensed Refills Start Date End Date calcium carbonate-vitamin Chew 1 tablet. 0 2009 D3 1,250 mg (500 mg calcium)-400 unit per chewable tablet multivitamin tablet Take 1 tablet by 0 06/28/2009 mouth. documented as of this encounter Progress Notes Emi Singletary, ORION, C.N.P. - 04/06/2012 10:51 AM CST [id number] CHIEF COMPLAINT/REASON FOR VISIT 1. Establish care 2. Sinus congestion 3. Cough and chest congestion 4. Migraine headaches HISTORY OF PRESENT ILLNESS 1. This is Isadora's first visit back at [facility] in [place]. In the past 3 years she has been seen at [facility]. 2. She states she has had sinus [...] care. She will have records transferred from [facility] 2. Acute sinusitis. Amoxicillin 875 mg 1 2 times a day for 10 days. Encourage fluids, Tylenol for fever discomfort. 3. Acute bronchitis. Continue albuterol HFA 2 puffs every 4 hours as needed for cough and wheeze 4. Migraine headaches. Refill on Imitrex 25 mg 1 as needed. She will schedule for mammogram before her appointment with Dr. Gauthier on 04/08/2012 Emi Singletary CNP/anna marie Electronically Signed By: EMI SINGLETARY CNP On: 04/07/2012 11:04 AM Source: [facility] MHSDOLBEYNONRADSYS Document Id: [id number] B ASSISTANT documented in this encounter Miscellaneous Notes Miscellaneous - Emi Singletary APRN, C.N.P. - 04/06/2012 11:17 AM REHAB ASSISTANT Ambulatory Patient Summary [address] [address] Visit Information Name: ISADORA BACK [facility] Number: [id number] Current Date: 04/06/2012 11:17:55 Physicians Attending Provider: EMI SINGLETARY CNP Primary Care Provider: LUI GAUTHIER MD Your [...] Date Time Location Reason Provider 04/08/2012 15:00 [facility] annual Lui Gauthier MD Your Goals/Additional instructions: Source: [facility] POWERCHART Document Id: [id number] B ASSISTANT Miscellaneous - Emi Singletary APRN, C.N.P. - 04/06/2012 11:17 AM REHAB ASSISTANT Ambulatory Depart Summary [address] [address] Visit Information Name: ISADORA BACK [facility] Number: [id number] Visit Date: 04/06/2012 11:17:55 Attending Provider: EMI SINGLETARY CNP Primary Care [...] your provider for clarification. Additional Information: Source: [facility] POWERCHART Document Id: [id number] B ASSISTANT Miscellaneous - Clarice White L.P.N. - 04/06/2012 11:02 AM CST Health Assessment Health Assessment Entered On: 04/06/2012 11:02 REHAB ASSISTANT Performed On: 04/06/2012 11:02 REHAB ASSISTANT by CLARICE HWITE Health Assessment Complete Health Assessment Complete or Modified : Annual Health Assessment Annual Health Assessment Completed : Yes CLARICE WHITE - 04/06/2012 11:02 REHAB ASSISTANT Nutrition Nutrition Risk Factors by History Adult : None CLARICE WHITE - 04/06/2012 11:02 REHAB ASSISTANT Functional Current Daily Living Assistance : None CLARICE WHITE - 04/06/2012 11:02 REHAB ASSISTANT Dependent Habits Tobacco Use/Currently Using : No Smoking Status : Never smoker CLARICE WHITE - 04/06/2012 11:02 REHAB ASSISTANT Psychosocial Domestic Abuse Concerns : None CLARICE WHITE - 04/06/2012 11:02 REHAB ASSISTANT Advance Directive Advanced Directives : No CLARICE WHITE - 04/06/2012 11:02 REHAB ASSISTANT Educ Needs Learning Style Preference Adult Grid Patient : Verbal explanation Family : Verbal explanation CLARICE WHITE - 04/06/2012 11:02 REHAB ASSISTANT Source: [facility] CookiesCHART Document Id: [id number] B ASSISTANT Miscellaneous - Clarice White L.PEldaNElda - 04/06/2012 11:00 AM CST Adult Mobile Developer Intake/History Adult Mobile Developer Intake/History Entered On: 04/06/2012 11:02 REHAB ASSISTANT Performed On: 04/06/2012 11:00 REHAB ASSISTANT by CLARICE WHITE Intake Chief Complaint : [...] : 22.24kg/m2 CLARICE WHITE - 04/06/2012 11:00 REHAB ASSISTANT Subjective Pain Symptoms : No CLARICE WHITE - 04/06/2012 11:00 REHAB ASSISTANT Dependent Habits Tobacco Use/Currently Using : No Smoking Status : Never smoker CLARICE WHITE - 04/06/2012 11:00 REHAB ASSISTANT Allergy Allergies (Active) sulfa drugs Estimated Onset Date: Unspecified ; Created By: ELENO MORALES LPN; Reaction Status: Active ; Category: Drug ; Substance: sulfa drugs ; Type: Allergy ; Updated By: ELENO MORALES LPN; Reviewed Date: 03/30/2012 8:35 REHAB ASSISTANT Source: [facility] POWERCHART Document Id: [id number] B ASSISTANT documented in this encounter Plan of Treatment Not on filedocumented as of this encounter Visit Diagnoses Not on filedocumented in this encounter
--- OUTSIDE RECORDS SUMMARY | 2022-04-01 13:53 | XMS_ITS | Encounter Summary ---
:1945 Author Organization [facility] Address [address] [place] [address] Care Team Providers Name Role Phone Unavailable Primary Care Provider Unavailable Encounter Details Date Type Department Care Team Description 10/05/2012 Hospital Encounter HX [facility] FBKF FAMILYPRA Nacho Duenas, ORION, C.N.P., D. N.P. [address] [place], [place] [address] (Wo rk) Social History [...] this encounter Progress Notes Abel Duenas APRN, CEldaNEldaP. - 10/05/2012 11:06 AM CDT [id number] CHIEF COMPLAINT/REASON FOR VISIT Bronchitis. HISTORY OF [...] SHAFER CNP On: 10/13/2012 02:20 PM Source: [facility] MHSDOLBEYNONRADSYS Document Id: [id number] documented in this encounter Miscellaneous Notes Miscellaneous [...] ( ) Mail Rx to Patient Source: [facility] [employer] Document Id: [id number] Miscellaneous - Abel Duenas, DIRECTOR EXECUTIVE COMMUNICATIONS, C.N.P. - 10/05/2012 11:40 AM CDT [place] [address] Visit Information Name: ISADORA BACK [facility] Number: [id number] Visit Date: 10/05/2012 11:40:49 Attending Provider: ABEL SHAFER [facility] Primary Care Provider: LUI GAUTHIER MD [...] your provider for clarification. Additional Information: Source: [facility] POWERCHART Document Id: [id number] Miscellaneous - Abel Duenas APRN, C.N.P. - 10/05/2012 11:40 AM CDT Ambulatory Patient Summary [address] [address] Visit Information Name: ISADORA BACK [facility] Number: [id number] Visit Date: 10/05/2012 11:40:50 Attending Provider: ABEL SHAFER [facility] Primary Care Provider: LUI GAUTHIER MD [...] your provider for clarification. Additional Information: Source: [facility] [employer] Document Id: [id number] Miscellaneous - Conversion, Historical Provider Ser - 10/05/2012 11:16 AM CDT Adult Masking Machine Operator Intake/History Adult Masking Machine Operator Intake/History Entered On: 10/05/2012 11:18 CDT Performed [...] Preferred Communication Mode : Verbal Languages : Occitan AUGUSTUS GUERRERO - 10/05/2012 11:16 CDT Subjective Pain Symptoms : No AUGUSTUS GUERRERO - 10/05/2012 11:16 CDT Dependent Habits Tobacco Use/Currently Using : No Smoking Status : Former smoker AUGUSTUS GUERRERO - 10/05/2012 11:16 CDT Tobacco Use Grid Last Use : quit 1970 AUGUSTUS GUERRERO - 10/05/2012 11:16 CDT [facility] Document Id: [id number] CDT!22 documented in this encounter Plan of Treatment Not on filedocumented as of this encounter Visit Diagnoses Not on filedocumented in this encounter
--- OUTSIDE RECORDS SUMMARY | 2022-04-01 13:53 | XMS_ITS | Encounter Summary ---
:1945 Author Organization [facility] Address [address] [place] [address] Care Team Providers Name Role Phone Unavailable Primary Care Provider Unavailable Encounter Details Date Type Department Care Team Description 10/25/2012 Hospital Encounter HX [facility] FBKF FAMILYPRA Nacho Duenas, ORION, C.N.P., D. N.P. [address] [place], [place] [address] (Wo rk) Social History [...] APRN, C.N.P. - 10/25/2012 10:58 AM CDT [id number] CHIEF COMPLAINT/REASON FOR VISIT Vaginal problems. HISTORY [...] sexual intercourse either. Patient states that SABRINA genevievezonia has never worked for her and she [...] lesions or discharge noted from the Bartholin, Biddle's or urethra. Speculum exam performed.Vaginal castro are [...] I would like her to follow upwith SCALE AGENT for further recommendation. Patient verbalizes understanding agrees with plan of care. Abel Shafer CNP/anna marie Electronically Signed By: ABEL SHAFER CNP On: 11/13/2012 09:49 PM Modified by and Electronically Signed by: ABEL SHAFER CNP On: 11/13/2012 09:49 PM Source: [facility] MHSDOLBEYNONRADSYS Document Id: [id number] documented in this encounter Miscellaneous Notes Miscellaneous [...] ( ) Other: Provider: Pharmacy: [facility] [phone] [facility] [phone] Name of Medications Needing Refill: Lorazepam 0.5mg tab Last Refill Date: 10/05/12, #10, 1 refill Additional Information: Last / Future Appointment:08/05/12 Disposition: ( ) Send to Pharmacy ( ) Call to Pharmacy ( ) Patient will picking tech Script ( ) Mail Rx to Patient Source: [facility] POWERCHART Document Id: [id number] Miscellaneous - Abel Duenas APRN, C.N.P. - 10/25/2012 12:19 PM CDT Results Notification Document Contains Addenda Addendum by AUGUSTUS GUERRERO on 25 October 2012 13:19:00 CDT Patient notified. From: ABEL SHAFER CNP To: MARCIO Lee Family Medicine Nurse; Sent: 10/25/2012 12:19:36 CDT ! Show up: 10/25/2012 17:19:36 [facility] Subject: Results Notification Actions: Notify patient of results Reminder Comments: Negative for yeast, trich, clue cells, or sperm. Call on cell [phone] Results: Date Result Type Ind Result Name MBO Review WET Prep WBC's Source: [facility] [employer]CH[employer] Document Id: [id number] Miscellaneous - Abel Duenas, ORION, C.N.P. - 10/25/2012 11:40 AM CDT Ambulatory Patient Summary [address] [address] Visit Information Name: ISADORA BACK [facility] Number: [id number] Visit Date: 10/25/2012 11:40:19 Attending Provider: ABEL SHAFER [facility] Primary Care Provider: LUI GAUTHIER [...] for clarification. Additional Information: Source: [facility] POWERCHART Document Id: [id number] Miscellaneous - Abel Duenas APRN, C.N.P. - 10/25/2012 11:40 AM CDT Ambulatory Depart Summary [address] [address] Visit Information Name: ISADORA BACK [facility] Number: [id number] Visit Date: 10/25/2012 11:40:18 Attending Provider: ABEL SHAFER [facility] Primary Care Provider: LUI GAUTHIER [...] for clarification. Additional Information: Source: [facility] POWERCHART Document Id: [id number] Miscellaneous - Conversion, Historical Provider Ser - 10/25/2012 11:13 AM CDT Adult Medical Lab Specialist Intake/History Adult Medical Lab Specialist Intake/History Entered On: 10/25/2012 11:16 CDT Performed [...] Preferred Communication Mode : Verbal Languages : Albanian AUGUSTUS GUERRERO - 10/25/2012 11:13 CDT Subjective Pain Symptoms : No AUGUSTUS GUERRERO - 10/25/2012 11:13 CDT Dependent Habits Tobacco Use/Currently Using : No Smoking Status : Former smoker AUGUSTUS GUERRERO - 10/25/2012 11:13 CDT Tobacco Use Grid Last Use : quit 1970 AUGUSTUS GUERRERO - 10/25/2012 11:13 CDT Source: [facility] POWERCHART Document Id: [id number] CDT!27 documented in this encounter Plan of [...] Vagina 10/25/2012 11:43 AM CDT Abel Duenas APRN, C.N.P., D.N.P. LAB MICROBIOLOGY - GENERAL ORDERABLES Performing Organization Address City/State/ZIP Code Phon e Number POWERCHART documented in this encounter Visit Diagnoses Not on filedocumented in this encounter
--- OUTSIDE RECORDS SUMMARY | 2022-04-01 13:53 | XMS_ITS | Encounter Summary ---
:1945 Author Organization [facility] Address [address] [place] [address] Care Team Providers Name Role Phone Unavailable Primary Care Provider Unavailable Encounter Details Date Type Department Care Team Description 12/04/2008 Hospital Encounter HX [facility] OWOC ENT Scot Le M.D. [address] [place], [place] [address] (Wo rk) Social History [...]
--- OUTSIDE RECORDS SUMMARY | 2022-04-01 13:53 | XMS_ITS | Encounter Summary ---
:1945 Author Organization [facility] Address [address] [place] [address] Care Team Providers Name Role Phone Unavailable Primary Care Provider Unavailable Encounter Details Date Type Department Care Team Description 04/08/2012 Hospital Encounter HX [facility] FBHB FAMILYPRA Lui Crockett i, M.D. [address] [place] [address] (Wo rk) Social History Tobacco [...] Comments Blood Pressure 112/70 04/08/2012 3:23 PM DRUPAL DEVELOPER Pulse 72 04/08/2012 3:23 PM DRUPAL DEVELOPER Temperature - - Respiratory Rate 16 04/08/2012 3:23 PM DRUPAL DEVELOPER Oxygen Saturation - - Inhaled Oxygen Concentration - - Weight 57 kg (125 lb 10.6 oz) 04/08/2012 3:23 PM DRUPAL DEVELOPER Height 160 cm (5' 2.99) 04/08/2012 3:23 PM DRUPAL DEVELOPER Body Mass Index 22.27 04/08/2012 3:23 PM DRUPAL DEVELOPER documented in this encounter Medications at Time of Discharge Medication Sig Dispensed Refills Start Date End Date calcium carbonate-vitamin Chew 1 tablet. 0 2009 D3 1,250 mg (500 mg calcium)-400 unit per chewable tablet multivitamin tablet Take 1 tablet by 0 06/28/2009 mouth. documented as of this encounter H&P Notes Lui Whitten M.D. - 04/08/2012 3:01 PM CST [id number] CHIEF COMPLAINT/REASON FOR VISIT Review medications, review medical concerns, update preventive services CURRENT MEDICATIONS Imitrex 25 mg as needed for migraine. ALLERGIES Sulfa SYSTEMS REVIEW She has been eating a gluten-free diet and feels that this is helping her bowel issues. She would like to continue physical therapy out at [facility] for neck pain. She has enjoyed [...] her grandchildren. 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 FAMILY HISTORY Mother with breast cancer in [...] Migraine headaches. We will continue with Imitrex. Lui Gauthier M.D./glt DOCID: [id number] Electronically Signed By: LUI GAUTHIER MD On: 06/16/2012 09:00 AM Source: [facility] MHSDOLBEYNONRADSYS Document Id: [id number] AL DEVELOPER documented in this encounter Miscellaneous Notes Telephone Encounter - Conversion, Historical Provider Ser - 05/06/2012 10:14 AM CST Phone Message Document Contains Addenda Addendum by ELENO MORALES LPN on 06 May 2012 14:14:38 DRUPAL DEVELOPER notified Addendum by LUI GAUTHIER MD on 06 May 2012 12:55:25 DRUPAL DEVELOPER From: LUI GAUTHIER MD To: BREE DARNELL LPN; Sent: 05/06/2012 12:55:25 DRUPAL DEVELOPER Subject: RE: Phone Message OK. I hope everything is ok From: BREE DARNELL LPN To: LUI GAUTHIER MD; Cc: ELENO MORALES LPN; Sent: 05/06/2012 10:14:02 DRUPAL DEVELOPER Subject: Phone Message Caller is: ( X [...] and would like that refilled. Please advise. [phone] thanks :) Advice/Action: Source used: ( ) [...] back cell phone number ( ) Source: [facility] POWERCHART Document Id: [id number] Lui Parada M.D. - 04/15/2012 6:11 PM DRUPAL DEVELOPER Results Notification Document Contains Addenda Addendum by SRIRAM LUNA LPN on 18 April 2012 08:19:16 DRUPAL DEVELOPER Results mailed. From: LUI GAUTHIER MD To: ELENO MORALES LPN Sent: 04/15/2012 18:11:45 DRUPAL DEVELOPER ! Show up: 04/16/2012 00:11:45 [facility] Subject: Results Notification Actions: Notify patient of results Source: [facility] POWERCHART Document Id: [id number] Electronically signed by Conversion, [facility] Long Distance Operator [id number] at 09/19/2016 4:05 PM CDT Lui Woo M.D. - 04/09/2012 7:41 PM DRUPAL DEVELOPER Ambulatory Patient Summary [address] [address] Visit Information Name: ISADORA BACK [facility] Number: [id number] Current Date: 04/09/2012 19:41:32 Physicians Attending Provider: LUI GAUTHIER MD Primary Care Provider: LUI GAUTHIER MD Your [...] Bone Dens screening Your Goals/Additional instructions: Source: [facility] POWERCHART Document Id: [id number] AL DEVELOPER Miscellaneous - Lui Whitten M.D. - 04/09/2012 7:41 PM DRUPAL DEVELOPER Ambulatory Depart Summary [address] [address] Visit Information Name: ISADORA BACK [facility] Number: [id number] Visit Date: 04/09/2012 19:41:31 Attending Provider: LUI GAUTHIER MD Primary Care [...] your provider for clarification. Additional Information: Source: [facility] POWERCHART Document Id: [id number] AL DEVELOPER Miscellaneous - Conversion, Historical Provider Ser - 04/08/2012 3:23 PM DRUPAL DEVELOPER Adult Medieval English Literature Professor Intake/History Adult Medieval English Literature Professor Intake/History Entered On: 04/08/2012 15:26 DRUPAL DEVELOPER Performed On: 04/08/2012 15:23 DRUPAL DEVELOPER by ELENO MORALES LPN Intake Chief Complaint [...] 22.27kg/m2 ELENO MORALES LPN - 04/08/2012 15:23 DRUPAL DEVELOPER Subjective Pain Symptoms : No ELENO MORALES LPN - 04/08/2012 15:23 DRUPAL DEVELOPER Dependent Habits Tobacco Use/Currently Using : No Smoking Status : Former smoker ELENO MORALES LPN - 04/08/2012 15:23 DRUPAL DEVELOPER Tobacco Use Grid Last Use : quit 1969 ELENO MORALES LPN - 04/08/2012 15:23 DRUPAL DEVELOPER Allergy Allergies (Active) sulfa drugs Estimated Onset Date: Unspecified ; Created By: ELENO MORALES LPN; Reaction Status: Active ; Category: Drug ; Substance: sulfa drugs ; Type: Allergy ; Updated By: ELENO MORALES LPN; Reviewed Date: 04/08/2012 15:22 DRUPAL DEVELOPER Source: [employer] Document Id: [id number] Miscellaneous - Conversion, Historical Provider Ser - 04/08/2012 3:23 PM DRUPAL DEVELOPER Health Assessment Health Assessment Entered On: 04/08/2012 15:29 DRUPAL DEVELOPER Performed On: 04/08/2012 15:23 DRUPAL DEVELOPER by ELENO MORALES LPN Health Assessment Complete Health Assessment Complete or Modified : Annual Health Assessment Annual Health Assessment Completed : Yes ELENO MORALES LPN - 04/08/2012 15:23 DRUPAL DEVELOPER Nutrition Nutrition Risk Factors by History Adult : None ELENO MORALES LPN - 04/08/2012 15:23 DRUPAL DEVELOPER Functional Current Daily Living Assistance : None ELENO MORALES LPN - 04/08/2012 15:23 DRUPAL DEVELOPER Dependent Habits Tobacco Use/Currently Using : No Smoking Status : Former smoker ELENO MORALES LPN - 04/08/2012 15:23 DRUPAL DEVELOPER Psychosocial Domestic Abuse Concerns : None ELENO MORALES LPN - 04/08/2012 15:23 DRUPAL DEVELOPER Advance Directive Advanced Directives : No ELENO MORALES LPN - 04/08/2012 15:23 DRUPAL DEVELOPER Educ Needs Learning Style Preference Adult Grid Patient : Printed materials Family : Printed materials ELENO MORALES LPN - 04/08/2012 15:23 DRUPAL DEVELOPER Source: [employer] Document Id: [id number] documented in this encounter Plan of Treatment Not on filedocumented as of this encounter Procedures Procedure Name Priority Date/Time Associated Diagnosis Comme nts THINPREP SCREEN HPV Routine 04/08/2012 4:38 PM Re sults for this REFLEX DRUPAL DEVELOPER procedure are i n the results section. documented in this encounter Results Pathology ThinPrep Screen HPV Reflex (04/08/2012 4:38 PM DRUPAL DEVELOPER) [facility] Method Time Signature Interpretation [id number] POWERCHART HXThPrep Scrn See Comment POWERCHART [facility] Comment: A. ??ThinPrep Pap Test Screen (Cervical/ Endocervical HPV Reflex): Satisfactory for evaluation. Negative for intraepithelial lesion or m alignancy. Atrophic pattern. HXThPrep Scrn [facility] See Comment SHIV RCHART Comment: Report electronically signed by RHONA Oliveira(ASCP) 04/14/2012 14:11 Interpreted by: RHONA Andrea(ASCP) [facility] See Comment POWERCHART Comment: A. ??ThinPrep Pap Test Screen (Cervical/ Endocervical HPV Reflex): Received cloudy specimen in ThinPrep via l. Test Performed by: [place] [address] Coffee Roaster: Varinder tucker III, M.D. Specimen (Source) Anatomical Collection Method Collection Time Re ceived Time Location / / Volume Laterality Cervix/Endocervix 04/08/2012 4:38 PM DRUPAL DEVELOPER Lui Roy M.D. LAB PAP PATHDX ORDERAB LES Performing Organization Address City/State/ZIP Code Phon e Number POWERCHART documented in this encounter Visit Diagnoses Not on filedocumented in this encounter
--- OUTSIDE RECORDS SUMMARY | 2022-04-01 13:53 | XMS_ITS | Encounter Summary ---
:1945 Author Organization [facility] Address [address] [place] [address] Care Team Providers Name Role Phone Unavailable Primary Care Provider Unavailable Encounter Details Date Type Department Care Team Description 08/05/2012 Hospital Encounter HX [facility] FBHB FAMILYPRA Lui Crockett i, M.D. [address] [place] [address] (Wo rk) Social History Tobacco [...] encounter Progress Notes Lui Whitten M.D. - 08/05/2012 2:44 PM CDT [id number] CHIEF COMPLAINT/REASON FOR VISIT Shoulder pain Isadora [...] certain movements. She has not used any wreq-yvw-zvashqhncrb relievers. She has noted no weakness. She [...] physical therapy. I have referred her to [facility] for their evaluation and ongoing management. 2. Adenomatous colon polyps. She is due for colonoscopy. Will submit her name for this. Lui Gauthier M.D./sushma Electronically Signed By: LUI GAUTHIER MD On: 08/08/2012 05:50 PM Source: [facility] MHSDOLBEYNONRADSYS Document Id: [id number] documented in this encounter Miscellaneous Notes Miscellaneous - Lui Whitten M.D. - 08/05/2012 11:51 PM CDT Ambulatory Patient Summary [address] [address] Visit Information Name: ISADORA BACK [facility] Number: [id number] Current Date: 08/05/2012 23:51:37 Physicians Attending Provider: LUI GAUTHIER MD Primary [...] No Appointments found Your Goals/Additional instructions: Source: [facility] POWERCHART Document Id: [id number] Miscellaneous - Lui Whitten M.D. - 08/05/2012 11:51 PM CDT Ambulatory Depart Summary [address] [address] Visit Information Name: ISADORA BACK [facility] Number: [id number] Visit Date: 08/05/2012 23:51:37 Attending Provider: LUI GAUTHIER MD Primary Care [...] provider for clarification. Additional Information: [facility] Document Id: [id number] Miscellaneous - Conversion, Historical Provider Ser - 08/05/2012 3:40 PM CDT Adult High Climber Intake/History Adult High Climber Intake/History Entered On: 08/05/2012 15:43 CDT Performed [...] Body Mass Index : 21.34 kg/m2 JULIANE LUCAS ELENONAGA LAINEZ BANQUET CHEF - 08/05/2012 15:40 CDT General Info Information Given By : Patient Languages : Eritrean ELENO MORALES LPN - 08/05/2012 15:40 CDT Subjective Pain Symptoms : Yes ELENO MORALES LPN - 08/05/2012 15:40 CDT Pain Pain Assessment Grid Pain 1 Location : Shoulder Laterality : Right ELENO MORALES LPN - 08/05/2012 15:40 CDT Dependent Habits Tobacco Use/Currently Using : No Tobacco Use/Last 12 months : No Smoking Status : Former smoker ELENO MORALES LPN - 08/05/2012 15:40 CDT Tobacco Use Grid Last Use : quit 1970 ELENO MORALES LPN - 08/05/2012 15:40 CDT [facility] PetsCHART Document Id: [id number] Miscellaneous - Conversion, Historical Provider Ser - 07/29/2012 4:04 PM CDT Medication Refill Msg Document Contains Addenda Addendum by ELENO MORALES LPN on 29 July 2012 17:11:08 CDT sent to [facility] [place] Addendum by LUI GAUTHIER MD on 29 July 2012 16:55:06 CDT From: LUI GAUTHIER MD To: ELENO MORALES LPN; Sent: 07/29/2012 16:55:06 CDT Subject: RE: Medication Refill Msg my condolences to her From: ELENO MORALES LPN To: LUI GAUTHIER MD; ELENO MORALES LPN; Sent: 07/29/2012 [...] appointment set up for next wednesday to seeu. Last Refill Date: Additional Information: Last / Future Appointment: Disposition: ( ) Send to Pharmacy ( ) Call to Pharmacy ( ) Patient will picker and packer Script ( ) Mail Rx to Patient Source: [facility] POWERCHART Document Id: [id number] documented in this encounter Plan of Treatment [...]
--- OUTSIDE RECORDS SUMMARY | 2022-04-01 13:53 | XMS_ITS | Encounter Summary ---
:1945 Author Organization [facility] Address [address] [place] [address] Care Team Providers Name Role Phone Unavailable Primary Care Provider Unavailable Encounter Details Date Type Department Care Team Description 02/20/2008 Hospital Encounter HX NO MAPPING Luisa Roy M.D. [address] [place], [place] [address] [...] 8:52 AM Re sults for this BILATERAL EDUCATIONAL TECHNICIAN procedure are i n the results section. documented in this encounter Results BI Breast Screening Bilateral (02/20/2008 8:52 AM EDUCATIONAL TECHNICIAN) Anatomical Region Laterality Modality Breast Bilateral Mammography Specimen (Source) Anatomical Collection Method Collection Time Re ceived Time Location / / Volume Laterality 02/20/2008 8:52 AM EDUCATIONAL TECHNICIAN Impressions 02/20/2008 8:52 AM EDUCATIONAL TECHNICIAN 1. Negative, normal mammogram, ACR categ ory [...] suspected palpable masses. Narrative 02/20/2008 8:52 AM EDUCATIONAL TECHNICIAN Originally Signed By UNKNOWN, PERSONNEL Reason for [...]
--- OUTSIDE RECORDS SUMMARY | 2022-04-01 13:54 | XMS_ITS | Clinical Summary ---
:1945 Author Organization [facility] [place] [address] Care Team Providers Name Role Phone Tigre Preciado Primary Care Provider Allergies Active Allergy [...] Take 1 Tab by 0 Acti ve F-dyypzp-dveeiron mouth once daily. (OCUVITE WITH LUTEIN) 1,000 [...] will continue to work with her current adaptive physical education specialist. We also discussed management options with vaginal estrogen therapy, pessary, or surgical intervent ion. She is not interested in these opti ons at this time. I recommend she follow up as needed in the future. Osteoporosis 07/20/2017 Personal history of colonic polyps 11/10/2012 Reactive airway disease 07/12/2009 Headache(784.0) 01/09/2009 Immunizations Name Administration Dates Next Due COVID-19 vaccine (Billdesk 30mcg/0.3mL) PF, MDV Influenza, IIV3 (Age >=3 [...] Smokeless Tobacco: Never Tobacco Cessation: Counseling Given: No Alcohol Use Standard Drinks/Week Comments Yes 0 (1 standard drink = 0.6 oz pure alcoho l) 5 glasses of wine/week Sex Assigned at Date Recorded Not on [...] 159 cm (5' 2.6) 02/29/2020 12:48 PM ASPHALT SPREADER Body Mass Index 22.61 02/29/2020 12:48 PM ASPHALT SPREADER Plan of Treatment Health Maintenance Due Date Last Done Comments BMI (ht and wt on same day) for 1965 age 18+ Hepatitis C screening for age 1203/22/1965 18-79 Zoster (shingles) series for age 1203/22/1997 50+ (1 of 2) DEXA/DXA scan for age 65+ 2012 Medicare [...] Group MEDICARE PART B MEDICARE PART B [id number] 2012-Presen ATTN: CLAIMS - HB USE ONLY HB ONLY t [address] [place] [address] [facility] [id number] 2014-Present [address] [place] [address] [facility] UCARE MEDICARE [id number] 2019-Present [address] [place] [address] Isadora Back Personal/Family Self 1945 [address] (Home) [place] [phone] Advance Directives Latest Code Status on File Code Status Date Activated Date Inactivated Comments Full Code 03/13/2020 7:36 AM 03/13/2020 1:19 PM Question Answer Comments Code Status Discussion: Not Discussed Care Teams [employer] Fishing Crew Member Relationship Specialty Start Date End Date Tigre Preciado PA PCP - General Physician Bridge Crew Member 01/15/20
--- NOTE | 2022-04-01 14:00 | CRLHL7_ITS ---
For Patients: As a result of the Century Cures Act, medical imaging exams and procedure reports are released immediately into your electronic medical record. You may view this report before your referring provider. If you have questions, please contact your health care provider. DXA BONE MINERAL DENSITY STUDY Reason for exam: Screening. Current height (in): 63. Weight (lb): 120. Menopause age: 54. Ethnicity: White. 1. Have you had a previous hip or vertebral fracture? No. 2. Have you had any fractures during your adult life which did not result from significant trauma (e.g., auto accident)? No. 3. Did either of your parents have a hip fracture? No. 4. Do you smoke? No. 5. Have you ever taken Glucocorticoids? No. 6. Do you have rheumatoid arthritis? No. 7. Do you have secondary osteoporosis? No. 8. Do you drink 3 or more alcoholic drinks per day? No. 9. Are you being treated for osteoporosis? No. 10. Have you ever taken any of the following medications: Actonel, Evista, Fosamax, Miacalcin, Reclast, Boniva, Forteo, HRT (i.e., estrogen/hormone therapy), Protelos, Prolia, Vitamin D, Calcium, other ??? please specify. ANSWER: Yes, Fosamax, vitamin D, and calcium. 11. Do you have any of the following medical conditions: Anorexia or bulimia, asthma or emphysema, end stage renal disease, hyperparathyroidism, any seizure disorders, cancer, inflammatory bowel diseases, hysterectomy, other ??? please specify. ANSWER: No. 12. What was your maximum height (inches)? 64. 13. Do you perform weight bearing exercise regularly? Yes. 14. Do you regularly consume dairy products? Yes. 15. Do you drink caffeinated beverages? Yes. If female: 16. At what age did your period start? 15. 17. Are you premenopausal? No. 18. How many full-term pregnancies have you had? 3. 19. Have you ever missed your period for more than 6 months in a row (not including or menopause)? No. TECHNIQUE: Bone mineral density study was performed using the [employer]. FINDINGS: The results of the study expressed as bone mineral density (BMD) are as follows: Lumbar spine L1 to L4: BMD: 0.690 g/cm2. T-score: -3.2. Z-score: -0.9 Neck Left: BMD: 0.683 g/cm2. T-score: -1.5. Z-score: 0.6 Right: BMD: 0.570 g/cm2. T-score: -2.5. Z-score: -0.4 Total Left: BMD: 0.629 g/cm2. T-score: -2.6. Z-score: -0.8 Right: BMD: 0.719 g/cm2. T-score: -1.8. Z-score: -0.0 IMPRESSION: Osteoporosis. Sanjeev Hendricks M.D. Diagnostic Radiologist [email or web address] FAITH/malathi servin/Dictated by: Sanjeev Hendricks MD @ 04/02/2022 1:19:00 PM (Electronically Signed)
--- NOTE | 2022-04-01 14:40 | CRLHL7_ITS ---
For Patients: As a result of the Century Cures Act, medical imaging exams and procedure reports are released immediately into your electronic medical record. You may view this report before your referring provider. If you have questions, please contact your health care provider. BILATERAL SCREENING MAMMOGRAM WITH COMPUTER-AIDED DETECTION TECHNIQUE: CC and MLO views were obtained. These mammographic images have been obtained using full-field digital technique. These mammographic images were interpreted with the benefit of computer-aided detection. COMPARISON FILM: 01/21/21, 11/21/19, 06/14/18. FINDINGS: There are scattered areas of fibroglandular density IMPRESSION: There is no radiographic evidence for malignancy. ASSESSMENT: BI-RADS Category 1: Negative RECOMMENDATION: Routine screening mammogram in 1 year. A lay language report of this examination will be provided to the patient. Sanjeev Hendricks M.D. Diagnostic Radiologist [email or web address] KIRILL/Dictated by: Sanjeev Hendricks MD @ 04/14/2022 12:32:00 PM (Electronically Signed)
== END 2022-04-01 13:45 | disposition home or self-care (01) ==
LOC: RAD 13:45
PROVIDERS: PCP Nurse Practitioner Family; Visit Provider Nurse Practitioner Family
DX: Z12.31 Encounter for screening mammogram for malignant neoplasm of breast (principal); Z13.820 Encounter for screening for osteoporosis; M81.0 Age-related osteoporosis without current pathological fracture
CPT/HCPCS: 77067; 77080

== ENCOUNTER 2022-07-03 12:25 | Outpatient (CLI) | payer MEDICARE, SELFPAY | END 2022-07-03 12:26 | disposition home or self-care (01) | PROVIDERS: PCP Nurse Practitioner Family; Visit Provider Nurse Practitioner Family | DX: N39.0 Urinary tract infection, site not specified (principal) | CPT/HCPCS: 81015; 87086 ==

== ENCOUNTER 2022-07-24 09:52 | Outpatient (CLI) | payer MEDICARE, SELFPAY | END 2022-07-24 09:53 | disposition home or self-care (01) | PROVIDERS: PCP Nurse Practitioner Family; Visit Provider Nurse Practitioner Family | DX: R68.83 Chills (without fever) (principal) | CPT/HCPCS: 81015; 87086 ==

== ENCOUNTER 2022-07-28 10:43 | Outpatient (CLI) | payer MEDICARE, SELFPAY ==
[2022-07-28 13:32] LABS: Basophils Absolute Auto 0.03 K/uL (0.00-0.30); Basophils Percent Auto 0.4 % (0.0-3.0); Eosinophils Percent Auto 14.3 % (0.0-7.0); Hemoglobin* 12.8 gm/dL (12.0-16.0); Lymphocytes Absolute Auto 1.87 K/uL (0.90-2.90); Mean Corpuscular HGB Conc 34 gm/dL (32-36); Mean Corpuscular Hemoglobin 31 pg (26-34); Mean Corpuscular Volume 92 fL (80-100); Monocytes Percent Auto 6.6 % (0.0-11.0); Neutrophils Absolute Auto 3.57 K/uL (1.7-7.0); Neutrophils Percent Auto 51.7 % (42.0-72.0); Platelet Count* 322 K/uL (140-440); RDW Coefficient of Variation % 12.6 % (11.5-15.5); Red Blood Count 4.13 m/uL (4.00-5.20); White Blood Count* 6.92 K/uL (4.50-11.00)
[2022-07-28 13:39] LABS: Slide Review Reflex No
== END 2022-07-28 10:44 | disposition home or self-care (01) ==
LOC: KYNREF 10:44
PROVIDERS: PCP Nurse Practitioner Family; Visit Provider Nurse Practitioner Family
DX: N39.0 Urinary tract infection, site not specified (principal); J18.9 Pneumonia, unspecified organism
CPT/HCPCS: 85025; 87086

== ENCOUNTER 2022-12-29 10:24 | Outpatient (CLI) | payer MEDICARE, SELFPAY | END 2022-12-29 10:25 | disposition home or self-care (01) | LOC: KYNREF 10:25 | PROVIDERS: PCP Nurse Practitioner Family; Visit Provider Nurse Practitioner Family | DX: N39.0 Urinary tract infection, site not specified (principal) | CPT/HCPCS: 81015; 87086; 87186 ==

== ENCOUNTER 2023-01-14 11:42 | Outpatient (CLI) | payer MEDICARE, SELFPAY ==
[2023-01-14 11:50] LABS: Appearance Urine Clear (Clear); Bilirubin Urine Negative (Negative); Blood Urine Negative (Negative); Color Urine Yellow (Yellow); Glucose Urine Negative (Negative); Ketones Urine Negative (Negative); Leukocyte Esterase Urine Trace (Negative); Nitrite Urine Negative (Negative); Protein Urine Negative (Negative); Specific Gravity Urine 1.015 (1.000-1.030); Urobilinogen Urine 0.2 (0.2-1.0)
[2023-01-14 14:21] LABS: Squamous Epithelial Cell Urine Few (None-Few); WBC Urine 0-2 (0-5)
== END 2023-01-14 11:43 | disposition home or self-care (01) ==
LOC: KYNREF 11:42
PROVIDERS: PCP Nurse Practitioner Family; Visit Provider Nurse Practitioner Family
DX: N39.0 Urinary tract infection, site not specified (principal)
CPT/HCPCS: 81003; 81015; 87086

== ENCOUNTER 2023-01-21 08:27 | Outpatient (CLI) | payer MEDICARE, SELFPAY | END 2023-01-21 08:28 | disposition home or self-care (01) | PROVIDERS: PCP Nurse Practitioner Family; Visit Provider Nurse Practitioner Family | DX: R10.13 Epigastric pain (principal); Z13.6 Encounter for screening for cardiovascular disorders; Z13.0 Encounter for screening for diseases of the blood and blood-forming organs and certain disorders involving the immune mechanism | CPT/HCPCS: 80053; 80061; 82150; 83690; 85025; 87338 ==

== ENCOUNTER 2023-04-29 13:41 | Outpatient (CLI) | payer MEDICARE, SELFPAY ==
--- OUTSIDE RECORDS SUMMARY | 2023-04-29 13:45 | XMS_ITS | Encounter Summary ---
Author Name Unknown Organization [facility] Address [address] [place] [address] Care Team Providers Care Lead Project Engineer Name Role Phone Tigre Preciado P.A.-C., P.A. Primary Care Pr ovider Reason for Referral * Outpatient (Routine) - Authorized Specialty Diagnoses / Procedures Referred By Contac t Referred To Contact Diagnoses Costochondritis Procedures ECG 12 Lead Edel Monae M.D. [address] [place] [address] [facility] Region Referral ID Status Reason Start Date Expiration Date V isits Requested Visits Authorized [id number] Authorized 08/15/2022 08/15/2023 1 1 Reason for Visit * Reason Comments Cough 5 days, currently on Zpack Shortness of Breath 3 days Chest Pain Earlier today not no w Encounter Details Date Type Department Care Team (Late st Contact Info) Description 08/15/2022 12:30 PM CDT Office Visit Department of Family Medicine, [facility], in [place], [place] [address] [place] [address] Edel Monae M.D. [address] [place] [address] Wheezing (Primary Dx); Fatigue; Asthma (HCC); Costochondritis Social History Tobacco Use Types Packs/Day Years Used Date Smoking Tobacco: Former Cigarettes Q uit: 1968 Smokeless Tobacco: Never Tobacco Cessation:Counseling Given: No Alcohol Use Standard Drinks/Week Comments Yes 5 (1 standard drink = 0.6 oz pur e alcohol) Overall Financial Resource Strain (CARDIA) Answe r Date Recorded How hard is it for you to pa y for the very basics like food, housing, medical care, and heating? Not hard at all 12/01/2019 PHQ-2 Answer Date Recorded PHQ-2 Score 0 06/26/2021 [facility] - Occupational Stress Questionnaire Answer Date Recorded Do you feel stress - tense, restless, nervous, or anxious, or unable to sleep at night because your mind is troubled all the time - these days? Only a little 12/01/2019 Exercise Vital Sign Answer Date Recorde d On average, how many days pe r week do you engage in moderate to strenuous exercise (like a brisk walk)? 3 days 12/01/2019 On average, how many minutes do you engage in exercise at this level? 60 min 12/01/2019 Hunger Vital Sign Answer Date Recorded Within the past 12 months, y ou worried that your food would run out before you got the money to buy more. Never true 12/01/19 20 Within the past 12 months, t he food you bought just didn't last and you didn't have money to get more. Never true 12/01/2019 PRAPARE - Transportation Answer Date Re corded In the past 12 months, has l ack of transportation kept you from medical appointments or from getting medications? No 11/17 In the past 12 months, has l ack of transportation kept you from meetings, work, or from getting things needed for daily living? No 12/01/2019 Nutrition Answer Date Recorded Nutrition: EVOO Fat Source Unknown 06/07 Nutrition: Servings of Fruits/Vegetables per Day Not on file 06/07/2020 Dental Answer Date Recorded Dental: Regular Dentist Unknown 06/07/19 21 Sex and Gender Information Value Date Recorded Sex Assigned at Female 01/14/2021 8:28 AM CDT Gender Identity Not on file Sexual Orientation Not on file documented as of this encounter Last Filed Vital Signs Vital Sign Reading Time Taken Comments Blood Pressure 152/79 08/15/2022 12:20 PM CDT Pulse 84 08/15/2022 12:16 PM CDT Temperature 36.9 ??C (98.4 ??F) 08/15/2022 1 2:16 PM CDT Respiratory Rate 16 08/15/2022 12:1 6 PM CDT Oxygen Saturation 99% 08/15/2022 12: 16 PM CDT Inhaled Oxygen Concentration - - Weight 56.2 kg (123 lb 14.4 oz) 023 12:16 PM CDT Height - - Body Mass Index 21.87 05/26/2022 9:30 AM 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 - 08/15/2022 12:30 PM CDT SUBJECTIVE: CHIEF COMPLAINT / REASON FOR VISIT Isadora is a 77 y.o. female who presents for evaluation of Cough (5 days, currently on Zpack), Shortness of Breath (3 days), and Chest Pain (Earlier today not now). HISTORY OF PRESENT ILLNESS #1 Wheezing #2 Fatigue #3 Asthma (HCC) #4 Costochondritis Isadora Back is a 77 year old female with known history of peripheral neuropathy, asthma, anxiety andhistory of osteoporosis presenting today for follow-up of wheezing, fatigue and sharp sternal chestdiscomfort. She mentions 3 weeks ago she was seen at an emergency department in [place] and was found to have a pneumonia. She completed a 7 day course Levaquin and generally felt improved until 2 weeksago when her cough returned. She was seen in outpatient clinic by her primary care physician last week after which they repeated blood work and repeat a chest x-ray which showed improvement in her pneumonia but she continued to have cough and wheeze and she was prescribed a 5 day course of azithromycin. She is currently on day 4 of 5 and notes she continues to have cough and woke up this morning with this sternal chest discomfort prompting evaluation in the clinic this afternoon. In regards to her cough, she describes it as nonproductive, intermittent throughout the day, worse at night, better after her using her albuterol inhaler and not associated with fever, myalgias or other associated systemic symptoms. In regards to her sternal discomfort, she describes it as a sharp, right-sided sternal discomfort that improves with position changes and heat. She denies any previous history of costochondritis but does note that it is not associated with shortness of breaths or upper extremity numbness or tingling. She has no chest pain at rest or with exertion at baseline. The following portions of the patient's history were reviewed and updated as appropriate: allergies, current medications, family history, medical history, social history, surgical history, and problem list. OBJECTIVE: PHYSICAL EXAM BP 152/79 (BP Location: Right arm, Patient Position: Sitting, Cuff Size: Regular) Pulse 84 Temp36.9 ??C (Temporal) Resp 16 Wt 56.2 kg LMP (LMP Unknown) SpO2 99% BMI 21.87 kg/m?? Physical Exam General: Well appearing person in no apparent distress. Cardiovascular: Regular rate and rhythm, no murmurs, rubs, or gallops. Pulmonary: End expiratory wheezes heard bilaterally throughout all lung lacy. No dullness to percussion. Egophony intact. No decreased breath sounds noted. Skin: Warm and well perfused ASSESSMENT AND PLAN: #1 Wheezing #2 Fatigue #3 Asthma (HCC) Differential includes ongoing community-acquired pneumonia, viral upper respiratory infection, asthma exacerbation status post bacterial infection. To date, she has complete a 7 day course of Levaquin and a 5 day course of azithromycin. She was given a DuoNeb in the clinic and her end expiratory whe ezing and symptoms improved significantly. Also reassured that she was satting 95-97% on room air. This is likely an asthma exacerbation. Will treat the 5 day prednisone burst of 40 mg and recommend if symptoms do not improve that she follow up with her primary care physician for repeat chest x-taiwo well as lab evaluation and potentially some PFTs for suboptimally treated asthma. #4 Costochondritis Differential includes costochondritis, cardiovascular disease, pneumothorax etc.. I am reassured against pneumothorax as she has good air entry in all lobes bilaterally. Concern for costochondritis as it is reproducible, at the costochondral junction and improved with heat and position changes. Recommend ongoing heat, topical lidocaine patches and NSAID use for comfort. EKG done today shows no concerning findings for coronary artery disease and was unchanged from 2020. Recommend that if symptoms worsen that she present to the emergency department for troponin and telemetry monitoring althoughno concerning findings during today. documented in this encounter Plan of Treatment Not on file documented as of this encounter Procedures Procedure Name Priority Date/Time Associated Diagnosis Comments ECG Routine 08/15/2022 12:49 PM CDT Costochondritis documented in this encounter Results * ECG 12 Lead (08/15/2022 12:49 PM CDT) Ventricular Rate ECG/Min 69 BPM MUSE MI Interval 150 ms MUSE QRSD Interval 86 ms MUSE QT Interval 400 ms MUSE QTC Interval 428 ms MUSE P [place] 52 degrees MUSE R [place] 20 degrees MUSE T Wave [place] 32 degrees MUSE 08/15/2022 12:4 9 PM CDT 08/15/2022 12:59 PM CDT Impressions MUSE - 08/15/2022 1:00 PM CDT Normal sinus rhythm Normal ECG When compared with ECG of 12-OCT-2019 15:38, No significant change in data has occurred Reviewed by MAYLIN Quarles Narrative Procedure Note Mehran Wooten M.B.B.S. - 08/15/2022 IMPRESSION: Normal sinus rhythm Normal ECG When compared with ECG of 12-OCT-2019 15:38, No significant change in data has occurred Reviewed by MAYLIN Quarles Edel Monae M.D. ECG ORDERABLE S MUSE NA documented in this encounter Visit Diagnoses Diagnosis Wheezing- Primary Fatigue Asthma (HCC) Costochondritis documented in this encounter Administered Medications Inactive Administered Medications - up to 3 most recent administrations Medication Order MAR Action Action Date Dose Rate Site ipratropium-albuteroL 0.5-2.5 mg/3 mL nebulizer solution 3 mL (DUONEB) 3 mL, nebulization, Once, On 08/15/22 at 1245, For 1 dose Given 08/15/2022 1:03 PM CDT 3 mL documented in this encounter Additional Health Concerns Assessment Noted Time PHQ-9 Depression Total Score: 1 06/02/19 18 9:34 AM MILLING MACHINE 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 PCP - General Family Medicine 10/11/19 documented as of this encounter
--- OUTSIDE RECORDS SUMMARY | 2023-04-29 13:45 | XMS_ITS | Encounter Summary ---
Author Name Unknown Organization [facility] Address [address] [place] [address] Care Team Providers Care Singe Machine Operator Name Role Phone Tigre Preciado P.A.-C., P.A. Primary Care Pr ovider Reason for Referral * Outpatient (Routine) - Closed Specialty Diagnoses / Procedures Referred By Contac t Referred To Contact Gynecology Diagnoses Cystocele Urinary Tract Infection Site Not Specified Personal History Of Other Diseases Of Urinary System Postmenopausal Atrophic Vaginitis Kanchan Granda, C.N.P. [address] [place] [address] [facility] Referral ID Status Reason Start Date Expiration Date Visits Re quested Visits Authorized [id number] Closed 11/27/2022 11/27/2023 1 1 Encounter Details Date Type Department Care Team (Late st Contact Info) Description 11/26/2022 [facility] [address] [place] [address] Kanchan Granda, C.N.P. [address] [place] [address] Urinary Tract Infection Site Not Specified (Primary Dx); Cystocele; Personal History Of Other Diseases Of Urinary System; Postmenopausal Atrophic Vaginitis Social History Tobacco Use Types Packs/Day Years Used Date Smoking Tobacco: Former Cigarettes Q uit: 1968 Smokeless Tobacco: Never Alcohol Use Standard Drinks/Week Comments Yes 5 (1 standard drink = 0.6 oz pur e alcohol) Overall Financial Resource Strain (CARDIA) Answe r Date Recorded How hard is it for you to pa y for the very basics like food, housing, medical care, and heating? Not hard at all 12/01/2019 PHQ-2 Answer Date Recorded PHQ-2 Score 0 06/26/2021 [facility] - Occupational Stress Questionnaire Answer Date Recorded [...] on file documented as of this encounter Plan of Treatment Scheduled Referrals Name Type Priority Associated Diagnoses Order Schedule Urogynecology Referral Outpatient Referral Routine Cystocele Urinary Tract Infection Site Not Specified Personal History Of Other Diseases Of Urinary System Postmenopausal Atrophic Vaginitis Expected: 11/27/2022 (Approximate), Expires: 02/28/2024 documented as of this encounter Visit Diagnoses Diagnosis Urinary Tract Infection Site Not Specified- Primary Cystocele Personal History Of Other Diseases Of Urinary System Postmenopausal Atrophic Vaginitis documented in this encounter Additional Health Concerns Assessment Noted Time PHQ-9 Depression Total Score: 1 06/02/19 18 9:34 AM BATTERY 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 PCP - General Family Medicine 10/11/19 documented as of this encounter
--- OUTSIDE RECORDS SUMMARY | 2023-04-29 13:45 | XMS_ITS | Encounter Summary ---
Author Name Unknown Organization [facility] Address [address] [place] [address] Care Team Providers Care Medical Staff Assistant Name Role Phone Tigre Preciado P.A.-C., P.A. Primary Care Pr ovider Encounter Details Date Type Department Care Team (Late st Contact Info) Description 09/02/2022 Orders Only [facility] Tigre Preciado P.A.-C., P.A. [address] [place] [phone] Social History Tobacco Use Types Packs/Day Years [...] Answer Date Recorded PHQ-2 Score 0 06/26/2021 [facility] [place] of Occupat ional Health - Occupational Stress [...] on file documented as of this encounter Visit Diagnoses Not on filedocumented in this encounter Additional Health Concerns Assessment Noted Time PHQ-9 Depression Total Score: 1 06/02/19 18 9:34 AM STATISTICAL GENETICIST documented as of this encounter Care Teams Medical Staff Assistant Relationship Specialty Start Date End Date Tigre Preciado P.A.-C., P.A. PCP - General Family Medicine 10/11/19 documented as of this encounter
--- OUTSIDE RECORDS SUMMARY | 2023-04-29 13:45 | XMS_ITS | Encounter Summary ---
Author Name Unknown Organization [facility] Address [address] [place] [address] Care Team Providers Care Senior Maintenance Mechanic Name Role Phone Tigre Preciado P.A.-C., P.A. Primary Care Pr ovider Encounter Details Date Type Department Care Team (Late st Contact Info) Description 11/25/2022 Clinical Communication Department of Family Medicine, [facility], in [place], [place] [address] [place] [address] Tigre Preciado P.A.-C., P.A. [address] [place] [address] Social History Tobacco Use Types [...] Answer Date Recorded PHQ-2 Score 0 06/26/2021 [facility] [place] of Occupat ional Health - Occupational Stress [...] Total Score: 1 06/02/19 18 9:34 AM SPA CONCIERGE documented as of this encounter Care Teams Senior Maintenance Mechanic Relationship Specialty Start Date End Date Tigre Preciado P.A.-C., P.A. PCP - General Family Medicine 10/11/19 documented as of this encounter
--- OUTSIDE RECORDS SUMMARY | 2023-04-29 13:45 | XMS_ITS | Encounter Summary ---
Author Name Unknown Organization [facility] Address [address] [place] [address] Care Team Providers Care Magazine Hand Name Role Phone Tigre Preciado P.A.-C., P.A. Primary Care Pr ovider Encounter Details Date Type Department Care Team (Late st Contact Info) Description 02/15/2023 Clinical Communication Department of Obstetrics and Gynecology in [place], [place] [address] [place] [phone] Em Almazan, R.N. [address] [place] [phone] Social History Tobacco Use Types Packs/Day Years [...] Answer Date Recorded PHQ-2 Score 0 06/26/2021 [facility] [place] of Occupat ional Health - Occupational Stress [...] on file documented as of this encounter Miscellaneous Notes * Telephone Encounter - Em Almazan R.N. - 02/15/2023 4:46 PM CDT Received message from Shanice Rico C.N.P that patient's insurance denied coverage for premarin vaginal cream. Spoke with patient and she was aware of the denial from her insurance. She spoke withher pharmacy and is going to fill the prescription any way. documented in this encounter Plan of Treatment Not on file documented as of this encounter Visit Diagnoses Not on filedocumented in this encounter Additional Health Concerns Assessment Noted Time PHQ-9 Depression Total Score: 1 06/02/19 18 9:34 AM CONCRETE FLOATER documented as of this encounter Care Teams Magazine Hand Relationship Specialty Start Date End Date Tigre Preciado P.A.-C. P.AElda PCP - General Family Medicine 10/11/19 documented as of this encounter
--- OUTSIDE RECORDS SUMMARY | 2023-04-29 13:45 | XMS_ITS | Encounter Summary ---
Author Name Unknown Organization [facility] Address [address] [place] [address] Care Team Providers Care Telephone Installer Name Role Phone Tigre Preciado P.A.-C., P.A. Primary Care Pr ovider Encounter Details Date Type Department Care Team (Late st Contact Info) Description 02/04/2023 Orders Only Department of Obstetrics and Gynecology, Division of Urogynecology in [place], [place] [address] [place] [phone] Shanice Rico APRN, C.N.P., D.N.P. [address] [place] [phone] Social History Tobacco Use Types Packs/Day Years [...] Answer Date Recorded PHQ-2 Score 0 06/26/2021 [facility] of Occupat ional Health - Occupational Stress [...] Total Score: 1 06/02/19 18 9:34 AM TRIM OPERATOR documented as of this encounter Care Teams Telephone Installer Relationship Specialty Start Date End Date Tigre Preciado P.A.-C., P.A. PCP - General Family Medicine 10/11/19 documented as of this encounter
--- OUTSIDE RECORDS SUMMARY | 2023-04-29 13:45 | XMS_ITS | Clinical Summary ---
Author Name Unknown Organization [facility] Address [address] [place] [address] Care Team Providers Care Dice Person Name Role Phone Tigre Preciado P.A.-C., P.A. Primary Care Pr ovider Source Comments Patient records contain information from all sites at [facility]. For routine questions regarding patient records, call [phone] during business hours, M-F 8:00 AM - 5:00 PM Central Time. Record requests for emergency care only can be directed to [phone] at any time.[facility] Allergies Active Allergy Reactions Criticality Noted Date Comments Cefuroxime Axetil GI intolerance Medium 06/02/2017 Other reaction(s): GI Upset Ciprofloxacin Tendonitis Medium 08/05/2012 Other reaction(s): Myalgia Epinephrine Other (see comments) Medium 02/13/2022 Palpitations Fluconazole Other (see comments),Anaphylaxis High 01/20/2010 Lip blister, throat closing Latex Rash Low 03/24/2015 Levofloxacin Headache Medium 08/10/2022 Made you sick. -Severe migraine Lidocaine-Epinephrine Palpitations Medium 11/07/2014 Metronidazole Tendonitis Medium 08/05/2012 Other reaction(s): Myalgia Sulfa (Sulfonamide Antibiotics) Nausea Only Low 02/28/2013 Medications Medication Sig Dispensed Refills Start Date End Date Status CRANBERRY FRUIT EXTRACT (CRANBERRY ORAL) Take 2 tablets by mouth 3 (three) times a day as needed. 0 08/13/2016 Active LACTOBACILLUS ACIDOPHILUS (ACIDOPHILUS ORAL) Take by mouth daily. 0 10/05/2012 Active calcium carbonate-vitamin D3 1,250 mg (500 mg calcium)-400 unit per chewable tablet Chew 1 tablet. 0 11/07/2009 Active multivitamin tablet Take 1 tablet by mouth daily. 0 06/28/2009 Active magnesium 200 mg tablet Take 400 mg by mouth daily. 0 Active vitamin A,C,X-ihskgl-bvdtc als (OCUVITE W/LUTEIN) 1,000 Unit-200 mg-60 Unit-2 mg tablet Take 1 tablet by mouth as needed. 0 Active dicyclomine (BENTYL) 10 mg capsule Take 1 capsule (10 mg total) by mouth 4 (four) times a day as needed (abdominal pain or cramps). 180 capsule 3 10/31/2020 Active nystatin (MYCOSTATIN) 100,000 unit/mL suspension Take 5 mL (500,000 Units total) by mouth 4 (four) times a day. Swish in mouth and swallow 280 mL 0 07/02/2021 Active Additional Information Patient taking differently:500,000 Units oralAs needed, Swish in mouth and swallow, Reported on 07/23/2022 albuterol 90 mcg/actuation inhaler Inhale 2 puffs every 4 (four) hours as needed for wheezing. 8 g 3 07/02/2021 Active zoledronic wmnh-ixahcyuM-iudo r (RECLAST) 5 mg/100 mL piggyback Infuse 5 mg into a venous catheter once. Once yearly- last dose 06/10/22 0 Active SUMAtriptan (IMITREX) 25 mg tablet TAKE 1 TABLET BY MOUTH NEEDED FOR MIGRAINE. MAY REPEAT DOSE ONCE IN 2 HOURS IF MIGRAINE UNRESOLVED. 9 tablet 5 07/31/2022 Active azithromycin (ZITHROMAX) 250 mg tablet Take 1 tablet by mouth as directed. BRONCHITIS 0 08/11/2022 Active montelukast (SINGULAIR) 10 mg tablet Take 1 tablet (10 mg total) by mouth at bedtime. 90 tablet 3 10/07/2022 10/07/2023 Active estrogens, conjugated, (Premarin) 1 g (0.625 mg/gram) vaginal cream Insert 1 g into the vagina 3 (three) times a week. At bedtime. 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 Prefers to manage with referral to [facility] and accupuncture at this time. Last Assessment & Plan: Referral to [facility] was completed in faxed. 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 We also discussed management options with vaginal estrogen therapy, pessary, or surgical intervention. She is not interested in these options at this time. I recommend she follow up as needed in the future. Hyponatremia 11/13/2019 Neuropathy Peripheral 06/14/2018 Osteoporosis Without Pathological Fracture 07/20 Anxiety 03/19/2013 Polyp Colon Personal History 11/10/2012 Asthma 07/12/2009 Resolved Problems Problem Noted Date Diagnosed Date Resolved Date Cheilitis Angular 12/01/2019 12/30/2020 [...] this plan of care. Encounters Date Type Department Care Team Description 02/15/2023 Clinical Communication Department of Obstetrics and Gynecology in [place], [place] [address] [place] [address] Em Almazan R.N. 02/05/2023 Orders Only Department of Obstetrics and Gynecology, Division of Urogynecology in [place], [place] [address] [place] [phone] Shanice Rico APRN, C.N.P., D.N.P. 02/04/2023 Orders Only Department of Obstetrics and Gynecology, Division of Urogynecology in [place], [place] [address] [place] [address] Shanice Rico APRN C.N.P., D.N.P. 02/03/2023 Clinical Communication Department of Obstetrics and Gynecology, Division of Urogynecology in [place], [place] [address] [place] [address] Shanice Rico APRN, C.N.P., D.N.P. Communication from Last 3 Months Immunizations Name Administration Dates Next Due Influenza high dose QV(65 ye ars or older) (PF) 01/21/2023,01/19/2022 Influenza, Injectable, Quadrivalent 02/19/2020 Influenza, Seasonal, Injectable 04/06/20 12,01/21/2009,02/20/2008,2006,02/24/2006 Influenza, Unspecified 03/07/2014,02/16/2013, PCV13 05/29/2014 PPSV23 04/08/2012 RZV (SHINGRIX) 08/10/2022(Deferred: Patient Refused - Pt. will receive later locally.),07/23/2022(Deferred: Patient Refused - Pt. will receive later locally.),02/21/2020(Deferred: Other) SARS-COV-2 (COVID-19) - MODERNA 07/04/2020,06/06 Td (Adult), adsorbed 01/23/2003 Tdap 01/21/2023,04/03/2013 Zoster, Unspecified 02/21/2020(Deferred: Other) influenza vaccine quad (FLUZONE/FLUARIX) (6 months and older)(PF) 02/03/2021,02/19/2020 Family History Medical History Relation Name Comments Cancer Brother tiim laryngeal cance r Cancer Father laryngeal cance r Hypertension Father Breast cancer Mother COPD Mother [...] Score 0 06/26/2021 [facility] of Occupat ional Health - Occupational Stress [...] on file Sexual Orientation Not on file Last Filed Vital Signs Vital Sign Reading [...] 14.4 oz) 023 12:16 PM CDT Height 160.3 cm (5' 3.11) 05/26/2022 9:30 AM CS T Body Mass Index 21.87 05/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 Plan of Treatment Health Maintenance Due Date Last Done Comments Visit: Medicare Annual Wellness 1945 Zoster Vaccines (1 of 2) 1997 Depression Screening (Annual PHQ-2) 04/19/2023 Fall Risk Screen (Annual) 04/19/2023 Visit: Annual, age 65+ (or Medicare and <65) 08/16/2023 08/15/2022 Bone Density Scan Monitoring 02/24/202410/2021 (Performed elsewhere), 07/01/2017 DTaP,Tdap,and Td Vaccines (3 - Td or Tdap) 01/21/2033 01/21/2023, 04/03/2013, 01/23/2003 Pneumococcal vaccine (65+ years) Completed 05/29/19 15, 04/08/2012 Hepatitis C Screening Completed 06/01/2016 Colonoscopy Discontinued 03/13/2020, 10/18, 11/10/2012 Colorectal Cancer Surveillance Discontinued Mammogram Discontinued 04/01/2022, 08/2020, 11/21/2019, Additional history exists Influenza Vaccine Completed 01/21/2023, , 02/03/2021, Additional history exists COVID-19 Vaccine Completed 03/29/2023, , 10/17/2021, Additional history exists CT Colonography Discontinued Cologuard Discontinued Care Teams Dice Person Relationship Specialty Start Date End Date Tigre Preciado P.A.-C., P.A. PCP - General Family Medicine 10/11/19
--- OUTSIDE RECORDS SUMMARY | 2023-04-29 13:45 | XMS_ITS | Encounter Summary ---
Author Name Unknown Organization [facility] Address [address] [place] [address] Care Team Providers Care Media Job Titles Name Role Phone Tigre Preciado P.A.-C., P.A. Primary Care Pr ovider Reason for Visit * Reason Comments Med Refill Encounter Details Date Type Department Care Team (Late st Contact Info) Description 10/05/2022 Refill Department of Family Medicine, [facility], in [place], [place] [address] [place] [address] Tigre Preciado P.A.-C., P.A. [address] [place] [address] Med Refill Social History Tobacco Use Types Packs/Day Years [...] Answer Date Recorded PHQ-2 Score 0 06/26/2021 [facility] of Occupat ional Health - Occupational Stress [...] encounter Miscellaneous Notes * Telephone Encounter - Renetta Mosqueda - 10/06/2022 8:41 AM CDT Nurse review: Unable to forward request to provider; Discrepancy; Patient taking Differently Primary Provider: Tigre Prceiado P.A.-C. Requested Prescriptions Pending Prescriptions Disp Refills montelukast (SINGULAIR) 10 mg tablet [Pharmacy Med Name: MONTELUKAST SOD 10 MG TAB 10 Tablet] 90 tablet 3 Sig: TAKE 1 TABLET (10 MG TOTAL) BY MOUTH AT BEDTIME. 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 PCP - General Family Medicine 10/11/19 documented as of this encounter
--- OUTSIDE RECORDS SUMMARY | 2023-04-29 13:45 | XMS_ITS | Encounter Summary ---
Author Name Unknown Organization [facility] Address [address] [place] [address] Care Team Providers Care Autocad Operator Name Role Phone Tigre Preciado P.A.-C., P.A. Primary Care Pr ovider Encounter Details Date Type Department Care Team (Late st Contact Info) Description 02/05/2023 Orders Only Department of Obstetrics and Gynecology, Division of Urogynecology in [place], [place] [address] [place] [phone] Shanice Rico APRN, C.N.P., D.N.P. 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 PCP - General Family Medicine 10/11/19 documented as of this encounter
--- OUTSIDE RECORDS SUMMARY | 2023-04-29 13:45 | XMS_ITS | Encounter Summary ---
Author Name Unknown Organization [facility] Address [address] [place] [address] Care Team Providers Care Medical Collector Name Role Phone Tigre Preciado P.A.-C., P.A. Primary Care Pr ovider Reason for Visit * Reason Onset Date Comments Cough 08/15/2022 Encounter Details Date Type Department Care Team (Late st Contact Info) Description 08/15/2022 Nurse Triage Department of Family Medicine, [facility], in [place], [place] [address] [place] [address] Beryl Arriola, REldaNElda [address] [place] [phone] Cough Social History Tobacco Use Types Packs/Day Years [...] Answer Date Recorded PHQ-2 Score 0 06/26/2021 [facility] [place] of Occupat ional Health - Occupational Stress [...] encounter Miscellaneous Notes * Telephone Encounter - Beryl Arriola, REldaN. - 08/15/2022 9:03 AM CDT Chief Complaint / Reason for Call Patient is a 77 y.o. female calling regarding Cough. Assessment Concern: Cough present, She noticed some relief but now has chest pain at the breast bone. Rattling sound with deep inhale and exhale. No fevers. Some shortness of breath. Just don't feel well. Poor energy but able to perform ADLs. She shares that she was diagnosed with pneumonia at beginning of month with great improvement. Present for: Cough started at the beginning of the week. Home cares tried: Seen by primary care at [facility] (with josi prescribed) by [facility] Provider on Wednesday. Calling to request: An appointment The recommended disposition is See a health care provider within 4 hours. Care Advice Patient/Caregiver understands and will follow care advice?: Yes, able to teach back SEE HCP (OR PCP TRIAGE) WITHIN 4 HOURS: * IF OFFICE WILL BE OPEN: You need to be seen within the next 3 or 4 hours. Call your doctor (or PROGRAM DIRECTOR AIR TALENT/PA) now or as soon as the office opens. * IF OFFICE WILL BE CLOSED AND NO PCP (PRIMARY CARE PROVIDER) SECOND-LEVEL TRIAGE: You need to be seen within the next 3 or 4 hours. A nearby Urgent Care Center (UCC) is often a good source of care. Another choice is to go to the ED. Go sooner if you become worse. * IF OFFICE WILL BE CLOSED AND PCP SECOND-LEVEL TRIAGE REQUIRED: You may need to be seen. Your doctor (or PROGRAM DIRECTOR AIR TALENT/PA) will want to talk with you to decide what's best. I'll page the on-call provider now. If you haven't heard from the provider (or me) within 30 minutes, call again. NOTE: If on-call provider can't be reached, send to UCC or ED. NOTE TO TRIAGER: * Use nurse judgment to select the most appropriate source of care. * Consider both the urgency of the patient's symptoms AND what resources may be needed to evaluate and manage the patient. SOURCES OF CARE: * ED: Patients who may need surgery or hospital admission need to be sent to an ED. So do most patients with serious symptoms or complex medical problems. * UCC: Some UCCs can manage patients who are stable and have less serious symptoms (e.g., minor illnesses and injuries). The triager must know the UCC capabilities before sending a patient there. If unsure, call ahead. * OFFICE: If patient sounds stable and not seriously ill, consult PCP (or follow your office policy) to see if patient can be seen NOW in office. BRING MEDICINES: * Please bring a list of your current medicines when you go to see the doctor. * It is also a good idea to bring the pill bottles too. This will help the doctor to make certain you are taking the right medicines and the right dose. CALL BACK IF: * You become worse Caller was warm transferred to Patient Appointment Roll Capper at the clinic for further assistance. 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 PCP - General Family Medicine 10/11/19 documented as of this encounter
--- OUTSIDE RECORDS SUMMARY | 2023-04-29 13:45 | XMS_ITS | Encounter Summary ---
Author Name Unknown Organization [facility] Address [address] [place] [address] Care Team Providers Care Cis Coordinator Name Role Phone Tigre Preciado P.A.-C., P.A. Primary Care Pr ovider Reason for Visit * Reason Onset Date Comments Communication 02/03/2023 Encounter Details Date Type Department Care Team (Latest Contact Info) Description 02/03/2023 Clinical Communication Department of Obstetrics and Gynecology, Division of Urogynecology in [place], [place] [address] [place] [phone] Shanice Rico, ORION, C.N.P., D.N.P. [address] [place] [phone] Communication Social History Tobacco Use Types Packs/Day Years [...] Answer Date Recorded PHQ-2 Score 0 06/26/2021 [facility] [place] of Occupat ional Health - Occupational Stress [...] encounter Miscellaneous Notes * Telephone Encounter - Mana Trevino RKarime. - 02/04/2023 11:27 AM CDT Called and spoke with patient to let her know Shanice changed her prescription to Premarin cream andsent it to [facility] in [place], [place]. * Telephone Encounter - Em Almazan REldaN. - 02/04/2023 8:52 AM CDT Patient called and I updated her with Shanice's recommendations. She shared that she has also been having a difficult time with sleeping since starting the vaginal estrogen. She will wake up and is unable to fall back to sleep. She also indicated that she is not feeling herself and is shah. She letme know that she will complete the 7 day Monistat and will await a response from Shanice about the additional concerns she shared before restarting the cream. Patient had used Premarin several years ago without any issues. * Telephone Encounter - Em Almazan R.N. - 02/04/2023 8:20 AM CDT Attempted to call patient but no answer. No message left. * Telephone Encounter - Em Almazan R.N. - 02/03/2023 4:48 PM CDT Reached out to patient to gather additional information. She was recently seen by Shanice Rico APRN and was prescribed vaginal estrogen cream. She just started using it on Saturday 01/27 and noticed irritation right away. She continued to use it on Monday 01/29 and Thursday 02/01. Wednesday was thelast dose she used. She continued to use it as she was wondering if her symptoms were from a yeast infection. She did use Monistat cream today. I advised that she discontinue the vaginal estrogen andthat I would send a message to Shanice to see if she had any additional recommendations or if she would like her to be tested for yeast. I let the patient know that we would follow up with her after Shanice has time to review. Patient did not have any additional questions. 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 PCP - General Family Medicine 10/11/19 documented as of this encounter
--- OUTSIDE RECORDS SUMMARY | 2023-04-29 13:45 | XMS_ITS ---
Author Name Unknown Organization [facility] Address [address] [place] [address] Care Team Providers Care Social Worker Delinquency Prevention Name Role Phone Unavailable Unavailable Unavailable Surgery Details Not on file Complications Check Surgery Details section. Procedure Estimated Blood Loss Check Surgery Details section. Procedure Findings Check Surgery Details section. Procedure Specimens Taken Check Surgery Details section.
--- OUTSIDE RECORDS SUMMARY | 2023-04-29 13:45 | XMS_ITS | Encounter Summary ---
Author Name Unknown Organization [facility] Address [address] [place] [address] Care Team Providers Care Patient Relations Director Name Role Phone Tigre Preciado P.A.-C., P.A. Primary Care Pr ovider Reason for Referral * Outpatient (Routine) - Authorized Specialty Diagnoses / Procedures Referred By Contac t Referred To Contact Obstetrics and Gynecology Diagnoses Cystocele Shanice Rico APRN, C.N.P., D.N.P. [address] [place] [phone] [facility] Referral ID Status Reason Start Date Expiration Date V isits Requested Visits Authorized [id number] Authorized 01/26/2023 01/26/2024 1 1 Scheduling Instructions Wants to coordinate with other appointments Reason for Visit * Outpatient (Routine) - Closed Specialty Diagnoses / Procedures Referred By Contac t Referred To Contact Gynecology Diagnoses Cystocele Urinary Tract Infection Site Not Specified Personal History Of Other Diseases Of Urinary System Postmenopausal Atrophic Vaginitis Kanchan Granda, C.N.P. [address] [place] [phone] [facility] Referral ID Status Reason Start Date Expiration Date Visits Re quested Visits Authorized [id number] Closed 11/27/2022 11/27/2023 1 1 Encounter Details Date Type Department Care Team (Latest Contact Info) Description 01/26/2023 9:00 AM CDT Comprehensive Visit Department of Obstetrics and Gynecology, Division of Urogynecology in [place], [place] [address] [place] [address] Shanice Rico APRN, C.N.P., D.N.P. [address] [place] [address] Cystocele; Urinary Tract Infection Site Not Specified; Personal History Of Other Diseases Of Urinary [...] Answer Date Recorded PHQ-2 Score 0 06/26/2021 [facility] of Occupat ional Health - Occupational Stress [...] on file documented as of this encounter Consult Notes * Shanice Rico APRN, C.N.P., D.N.P. - 01/26/2023 9:00 AM CDT REFERRING PROVIDER Kanchan Granda C.N.P. CHIEF COMPLAINT / REASON FOR VISIT Pelvic Organ prolapse HISTORY OF PRESENT CONDITION Ms. Isadora Back is a pleasant 77 y.o. NVD. She was previously seen by Ms. Nivia Trujillo in November of 2019. At that time she was noted to have grade 2-3 anterior prolapse. We did tells me she was referred by her provider as her provider was concerned her prolapse may be contributing to her urinary tract infections. She states she has had about 4-5 urinary tract infections since last winter. Her primary care provider has given her prophylactic antibiotics to take after intercourse to prevent urinary tract infections. She is not currently on vaginal estrogen due to the cost. She denies any urgency, frequency, urge incontinence, urine loss will sleeping, triggers, or difficulty voiding. She gets up about once per night on average. When she has urinary tract infection she will be up twice. If she has a hard cough or laugh she may have drops or more of incontinence. However, stress urinary incontinence is rare. She is unsure how much fluid she consumes per day. She states she has 30 oz of coffee per day, one to two cups of herbal tea, and small amount of water throughout the day. She also drank soda 4 timesper week. She noted her your voiding frequency for two days. Each day she voided 11 times. She denies any current dysuria, hematuria, suprapubic pain/pressure, abdominal pain, or loud snoring/waking up gasping for air. Prolapse symptoms: She has had a prolapse since at least 2019. It is typically not bothersome unless she has urinary tract infection. When she has urinary tract infection she feels the bulge is ???tender?? with a full bladder. The prolapse comes to or a little past the introitus. She does not haveto splint for urination or defecation. Bowel function: She typically has one bowel movement daily that is soft and easily passed. Occasionally she will go 2-3 days without a bowel movement. At that point in time she will take magnesium which will alleviate the constipation. She denies regular constipation or straining with bowel movements. She denies a sensation of stool trapping, perineal/vaginal splinting with bowel movements, fecalurgency or fecal incontinence. Sexual function: She is sexually active and denies dyspareunia or dryness with intercourse. OBJECTIVE PHYSICAL EXAMINATION Genitalia: Atrophic, thin, pale appearing external genitalia. Atrophic, smooth, pale, dry vaginal mucosa. Anterior prolapse-grade 2 in lying position, grade 3 standing. Uterus and posterior wall are well-supported.. No incontinence with cough stress test. Kegel's are satisfactory. No levator spasmsbilaterally. Atrophic appearing cervix with stenotic os. No abnormal urethral vaginal or rectal discharge noted. No bleeding or pain. Bimanual exam reveals mobile, nontender uterus, negative adnexa upon palpation. Voided: 400 cc, Ultrasound post void residual: 43 cc Cane Flume Chute Operator: Nanda Loaiza's ASSESSMENT / PLAN #1 Anterior prolapse-grade 2-3 #2 Urinary Tract Infection Site Not Specified #3 Personal History Of Other Diseases Of Urinary System #4 Postmenopausal Atrophic Vaginitis I reviewed the diagnosis of pelvic organ prolapse including using pictorial aids/handouts. Treatment options include observation, pessary, and surgery. If there are no symptoms associated with pelvicorgan prolapse, then no treatment is needed apart from observation. Maintaining healthy bowels and avoiding heavy lifting can be helpful. Vaginal estrogen is a helpful treatment for atrophic vaginitis. It helps increase blood flow to thetissue and improve tissue integrity. This can help with vaginal dryness, raw feeling and irritation. It also may help decrease urinary tract infections, dyspareunia, and urinary incontinence. It usually takes at least 6 weeks to work. I typically recommend 1/2-1gm to vagina 2-3 times weekly indefinitely (unless there are intolerable reactions to the medication). You may use the tip of your index finger or applicator as to whichever you are most comfortable. It is primarily locally absorbed so safe to use. There is no conclusive evidence that the use of vaginal estrogen increases the risk of breast cancer or other conditions that may be associated with systemic hormone replacement therapy. Urogynecology does not manage recurrent UTI's. Referral to Urology using an eConsult is recommended. Primary Care Provider could consider prophylaxis/suppression therapy as appropriate. Behavioral recommendations: Consume at least 80 oz fluid daily and timed voiding every 2 hours while awake. Suppressive therapy may include: Hippurate: 1,000 mg twice daily or Mandelate: 1,000 mg 4 times daily or Cranberry concentrate tablets 500 mg to 1000 mg total daily dose (fztj-lty-ijypsux) or Vitamin C 1,000 mg daily or D-mannose, probiotics (lzna-ihe-plncvvg) For those with Genitourinary syndrome of Menopause: Vaginal estrogen is a helpful treatment for atrophic vaginitis. It helps increase blood flow to thetissue and improve tissue integrity. This can help with vaginal dryness, raw feeling and irritation. It also may help decrease urinary tract infections, dyspareunia, and urinary incontinence. It usually takes at least 6 weeks to work. I typically recommend 1gm to vagina 3 times weekly indefinitely (unless there are intolerable reactions to the medication). @GENDER@ may use the tip of index fingerfrom clitoris then into lower third of the vagina. It is primarily locally absorbed so safe to use.There is no conclusive evidence that the use of vaginal estrogen increases the risk of breast cancer or other conditions that may be associated with systemic hormone replacement therapy. She is adequately emptying her bladder. It is unlikely that her prolapse is contributing to her urinary symptoms. However we did discuss that she could start with vaginal estrogen and see if that improves her symptoms. Prescription for vaginal estrogen sent to [facility] pharmacy in [place], [place]. If symptoms are not improved with estrogen alone could consider pessary placement. I have placed anorder for a pessary consult in four months. She would like to give the estrogen a chance to work prior to initiating a pessary. documented in this encounter Plan of Treatment Scheduled Referrals Name Type Priority Associated Diagnoses Order Schedule Obstetrics and Gynecology - Pessary consult (clinic) Outpatient Referral Routine Cystocele Expected: 05/24/2023 (Approximate), Expires: 04/28/2024 documented as of this encounter Visit Diagnoses Diagnosis Cystocele Urinary Tract Infection Site Not Specified Personal History Of Other Diseases Of Urinary System Postmenopausal Atrophic Vaginitis documented in this encounter Additional Health Concerns Assessment Noted Time PHQ-9 Depression Total Score: 1 06/02/19 18 9:34 AM VICE PRESIDENT DIGITAL STRATEGIST documented as of this encounter Care Teams Patient Relations Director Relationship Specialty Start Date End Date Tigre Preciado P.A.-C., P.A. PCP - General Family Medicine 10/11/19 documented as of this encounter
--- OUTSIDE RECORDS SUMMARY | 2023-04-29 13:45 | XMS_ITS | Encounter Summary ---
Author Name Unknown Organization [facility] Address [address] [place] [address] Care Team Providers Care Ground Crewman Aircraft Support Name Role Phone Tigre Preciado P.A.-C., P.A. Primary Care Pr ovider Encounter Details Date Type Department Care Team (Late st Contact Info) Description 11/24/2022 [facility] [address] [place] [address] Kanchan Granda, C.N.P. [address] [place] [phone] Urinary Tract Infection Site Not Specified (Primary Dx) Social History Tobacco Use Types Packs/Day Years [...] Answer Date Recorded PHQ-2 Score 0 06/26/2021 [facility] of Occupat ional Health - Occupational Stress [...] Urinary Tract Infection Site Not Specified- Primary documented in this encounter Additional Health Concerns Assessment Noted Time PHQ-9 Depression Total Score: 1 06/02/19 18 9:34 AM MAIL TRUCK DRIVER documented as of this encounter Care Teams Ground Crewman Aircraft Support Relationship Specialty Start Date End Date Tigre Preciado P.A.-C., P.A. PCP - General Family Medicine 10/11/19 documented as of this encounter
--- OUTSIDE RECORDS SUMMARY | 2023-04-29 13:45 | XMS_ITS | Referral Summary ---
Author Name Unknown Organization [facility] Address [address] [place] [address] Care Team Providers Care Dental Technologist Name Role Phone Tigre Preciado P.A.-C., P.A. Primary Care Pr ovider Source Comments Patient records contain information from all sites at [facility]. For routine questions regarding patient records, call [phone] during business hours, M-F 8:00 AM - 5:00 PM Central Time. Record requests for emergency care only can be directed to [phone] at any time.[facility] Encounters Date Type Department Care Team Description 02/15/2023 Clinical Communication Department of Obstetrics and Gynecology in [place], [place] [address] [place] [phone] Em Almazan, R.N. 02/05/2023 Orders Only Department of Obstetrics and Gynecology, Division of Urogynecology in [place], [place] [address] [place] [phone] Shanice Rico APRN, C.N.P., D.N.P. 02/04/2023 Orders Only Department of Obstetrics and Gynecology, Division of Urogynecology in [place], [place] [address] [place] [phone] Shanice Rico APRN, C.N.P., D.N.P. 02/03/2023 Clinical Communication Department of Obstetrics and Gynecology, Division of Urogynecology in [place], [place] [address] [place] [phone] Shanice Rico APRN, C.N.P., D.N.P. Communication from Last 3 Months Allergies Active Allergy Reactions Criticality Noted Date [...] mg by mouth daily. 0 Active vitamin A,C,N-scrdet-kmzqe als (OCUVITE W/LUTEIN) 1,000 Unit-200 mg-60 Unit-2 [...] wheezing. 8 g 3 07/02/2021 Active zoledronic nfzt-aqpzammO-wang r (RECLAST) 5 mg/100 mL piggyback Infuse [...] will continue to work with her current manager telecom. We also discussed management options with vaginal [...] care. Immunizations Name Administration Dates Next Due Influenza [...] quad (FLUZONE/FLUARIX) (6 months and older)(PF) 02/03/2021,02/19/2020 Social History Tobacco Use Types Packs/Day Years [...] Answer Date Recorded PHQ-2 Score 0 06/26/2021 [facility] of Occupat ional Health - Occupational Stress [...] Body Mass Index 21.87 05/26/2022 9:30 AM MANAGER LEGAL Plan of Treatment Not on file Care Teams Dental Technologist Relationship Specialty Start Date End Date Tigre Preciado P.A.-C., P.A. PCP - General Family Medicine 10/11/19
--- OUTSIDE RECORDS SUMMARY | 2023-04-29 13:46 | XMS_ITS | Encounter Summary ---
Author Name Unknown Organization [facility] Address [address] [place] [address] Care Team Providers Care Affiliate Marketing Coordinator Name Role Phone Tigre Preciado P.A.-C., P.A. Primary Care Pr ovider Reason for Visit * Reason Onset Date Comments Pre-visit Intake 07/09/2022 Encounter Details Date Type Department Care Team (Latest Contact Info) Description 07/09/2022 2:30 PM CDT Clinical Communication Virtual Review in [place], [place] [address] [place], [place] [phone] Pre-visit Intake Social History Tobacco Use Types Packs/Day Years Used Date Smoking Tobacco: Former Cigarettes Q uit: 1968 Smokeless Tobacco: Never Tobacco Cessation:Counseling Given: Not Answered Alcohol Use Standard Drinks/Week Comments Yes 5 (1 standard drink = 0.6 oz pur e alcohol) Overall Financial Resource Strain (CARDIA) Answe r Date Recorded How hard is it for you to pa y for the very basics like food, housing, medical care, and heating? Not hard at all 12/01/2019 PHQ-2 Answer Date Recorded PHQ-2 Score 0 06/26/2021 [facility] [place] of Occupat ional Health - Occupational Stress [...] Total Score: 1 06/02/19 18 9:34 AM CHEMICAL ENGINEERING TECHNICIAN documented as of this encounter Care Teams Affiliate Marketing Coordinator Relationship Specialty Start Date End Date Tigre Preciado P.A.-C., P.A. PCP - General Family Medicine 10/11/19 documented as of this encounter
--- OUTSIDE RECORDS SUMMARY | 2023-04-29 13:46 | XMS_ITS | Encounter Summary ---
Author Name Unknown Organization [facility] Address [address] [place] [address] Care Team Providers Care Building Tech Name Role Phone Tigre Preciado P.A.-C., P.A. Primary Care Pr ovider Reason for Visit * Reason Onset Date Comments Pre-visit Intake 07/23/2022 Encounter Details Date Type Department Care Team (Latest Contact Info) Description 07/23/2022 9:00 AM CDT Clinical Communication Virtual Review in [place], [place] [address] [place], [place] [phone] Pre-visit Intake Social History Tobacco Use Types [...] Date Recorded PHQ-2 Score 0 06/26/2021 [facility] [place] of Occupat ional Health - Occupational Stress [...] Total Score: 1 06/02/19 18 9:34 AM STOCK DRIER TENDER documented as of this encounter Care Teams Building Tech Relationship Specialty Start Date End Date Tigre Preciado P.A.-C., P.A. PCP - General Family Medicine 10/11/19 documented as of this encounter
--- OUTSIDE RECORDS SUMMARY | 2023-04-29 13:46 | XMS_ITS | Encounter Summary ---
Author Name Unknown Organization [facility] Address [address] [place] [address] Care Team Providers Care Plan Examiner Name Role Phone Tigre Preciado P.A.-C., P.A. Primary Care Pr ovider Encounter Details Date Type Department Care Team (Latest Contact Info) Description 05/26/2022 10:52 AM PEDIATRIC ANESTHESIOLOGIST - 05/26/2022 11:59 PM [facility] Hospital Encounter Department of Laboratory Medicine and Pathology, [facility] in [place], [place] [address] [place] [address] Duncan Mcgraw M.D. [address] [place] [phone] Osteoporosis Without Pathological Fracture Discharge Disposition: Home or Self Care Social History Tobacco Use Types Packs/Day Years [...] Answer Date Recorded PHQ-2 Score 0 06/26/2021 [facility] [place] of Occupat ional Health - Occupational Stress [...] on file documented as of this encounter Medications at Time of Discharge Medication Sig Dispensed Refills Start Date End Date albuterol 90 mcg/actuation inhaler Inhale 2 puffs every 4 (four) hours as needed for wheezing. 8 g 3 07/02/2021 calcium carbonate-vitamin D3 1,250 mg (500 mg calcium)-400 unit per chewable tablet Chew 1 tablet. 0 11/07/2009 CRANBERRY FRUIT EXTRACT (CRANBERRY ORAL) Take 2 tablets by mouth 3 (three) times a day as needed. 0 08/13/2016 dicyclomine (BENTYL) 10 mg capsule Take 1 capsule (10 mg total) by mouth 4 (four) times a day as needed (abdominal pain or cramps). 180 capsule 3 10/31/2020 LACTOBACILLUS ACIDOPHILUS (ACIDOPHILUS ORAL) Take by mouth daily. 0 10/05/2012 magnesium 200 mg tablet Take 400 mg by mouth daily. 0 multivitamin tablet Take 1 tablet by mouth daily. 0 06/28/2009 nystatin (MYCOSTATIN) 100,000 unit/mL suspension Take 5 mL (500,000 Units total) by mouth 4 (four) times a day. Swish in mouth and swallow 280 mL 0 07/02/2021 vitamin A,C,Z-pleklp-vrbunagu (OCUVITE W/LUTEIN) 1,000 Unit-200 mg-60 Unit-2 mg tablet Take 1 tablet by mouth as needed. 0 bromelains (PINEAPPLE EXTRACT ORAL) Take by mouth as needed. 0 08/10/2022 montelukast (SINGULAIR) 10 mg tablet Take 1 tablet (10 mg total) by mouth at bedtime. 90 tablet 3 07/02/2021 10/06/2022 SUMAtriptan (IMITREX) 25 mg tablet Take 1 tablet (25 mg total) by mouth as needed for migraine. May repeat dose once in 2 hours if migraine unresolved. 9 tablet 5 05/30/2021 07/31/2022 documented as of this encounter Miscellaneous Notes * Result Encounter Note - Duncan Mcgraw M.D. - 05/29/2022 1:28 PM PEDIATRIC ANESTHESIOLOGIST Total vitamin-D level is 57 ng/mL. Optimal total vitamin-D range for skeletal health is 30-50 with allowable safe level up to 60 ng per mL. No change in vitamin-D dosing is needed. Vitamin-D level should be rechecked in 1 year. ATRIC ANESTHESIOLOGIST documented in this encounter Plan of Treatment Not on file documented as of this encounter Procedures Procedure Name Priority Date/Time Associated Diagnosis Comments 25-HYDROXYVITAMIN D2 AND D3, S Routine 05/26/2022 11:02 AM PEDIATRIC ANESTHESIOLOGIST Osteoporosis Without Pathological Fracture CREATININE WITH EGFR, S/P Routine 05/26/2022 11:02 AM PEDIATRIC ANESTHESIOLOGIST Osteoporosis Without Pathological Fracture CALCIUM, TOT, S/P Routine 05/26/2022 11: 02 AM PEDIATRIC ANESTHESIOLOGIST Osteoporosis Without Pathological Fracture documented in this encounter Results * Calcium, Total (05/26/2022 11:02 AM PEDIATRIC ANESTHESIOLOGIST) Pathologist [facility] Calcium, Total, S 10.1 8.8 - 10.2 mg/dL 05/26/2022 11:57 AM PEDIATRIC ANESTHESIOLOGIST DTL Blood (Blood, Venous) 05/26/2022 11:02 AM PEDIATRIC ANESTHESIOLOGIST 05/26/2022 11:36 AM PEDIATRIC ANESTHESIOLOGIST Duncan Mcgraw M.D. LAB BLOOD ADD-ON Performing Organization Address City/[facility]/ZIP Co de Phone Number [facility] [place] [address] [place] [address] * Creatinine with Estimated GFR (05/26/2022 11:02 AM PEDIATRIC ANESTHESIOLOGIST) [facility] Creatinine 0.94 0.59 - 1.04 mg/dL 05/26/2022 11:57 AM PEDIATRIC ANESTHESIOLOGIST DTL Estimated GFR (eGFR) 63 >=60 mL/min/BSA 05/26/2022 11:57 AM PEDIATRIC ANESTHESIOLOGIST DTL Comment: Estimated GFR calculated using the 2020 CKD_EPI creatinine equation. Blood (Blood, Venous) 05/26/2022 11:02 AM PEDIATRIC ANESTHESIOLOGIST 05/26/2022 11:36 AM PEDIATRIC ANESTHESIOLOGIST Duncan Mcgraw M.D. LAB BLOOD ADD-ON Performing Organization Address City/[facility]/ZIP Co de Phone Number [facility] [address] [place] [address], [facility] [place] [address] [place] [address] * 25-Hydroxyvitamin D2 and D3 (05/26/2022 11:02 AM PEDIATRIC ANESTHESIOLOGIST) 25-Hydroxy D2 <4.0 ng/mL 05/28/2022 3:38 PM PEDIATRIC ANESTHESIOLOGIST [facility] 25-Hydroxy D3 57 ng/mL 05/28/2022 3:38 PM PEDIATRIC ANESTHESIOLOGIST [facility] 25-Hydroxy D Total 57 ng/mL 2022 3:38 PM PEDIATRIC ANESTHESIOLOGIST [facility] Comment: Interpretation: 51-80 ng/mL (increased risk of hypercalciuria) ----REFERENCE VALUE---- 25-HYDROXY D TOTAL (D2+D3) Optimum levels in the healthy population are 20-50, patients with bone disease may benefit from higher levels within this range. ----ADDITIONAL INFORMATION---- This test was developed and its performance characteristics determined by [facility] in a manner consistent with CLIA requirements. This test has not been cleared or approved by the U.S. Food and Drug Administration. Blood (Blood, Venous) 05/26/2022 11:02 AM PEDIATRIC ANESTHESIOLOGIST 05/26/2022 3:01 PM PEDIATRIC ANESTHESIOLOGIST Duncan Mcgraw M.D. LAB BLOOD ADD-ON [facility] [address] [place] [address] [facility] [address] [place] [address] documented in this encounter Visit Diagnoses Diagnosis Osteoporosis Without Pathological Fracture documented in this encounter Additional Health Concerns Assessment Noted Time PHQ-9 Depression Total Score: 1 06/02/19 18 9:34 AM PEDIATRIC ANESTHESIOLOGIST documented as of this encounter Care Teams Plan Examiner Relationship Specialty Start Date End Date Tigre Preciado P.A.-C., P.A. PCP - General Family Medicine 10/11/19 documented as of this encounter
--- OUTSIDE RECORDS SUMMARY | 2023-04-29 13:46 | XMS_ITS | Encounter Summary ---
Author Name Unknown Organization [facility] Address [address] [place] [address] Care Team Providers Care Employment Coordinator Name Role Phone Tigre Preciado P.A.-C., P.A. Primary Care Pr ovider Encounter Details Date Type Department Care Team (Late st Contact Info) Description 07/03/2022 Orders Only Division of Endocrinology in [place], [place] [address] [place] [phone] Duncan Mcgraw M.D. [address] [place] [address] Osteoporosis (Primary Dx) Social History Tobacco Use Types [...] Answer Date Recorded PHQ-2 Score 0 06/26/2021 [facility] [place] of Occupat ional Health - Occupational Stress [...] as of this encounter Visit Diagnoses Diagnosis Osteoporosis- Primary documented in this encounter Additional Health Concerns Assessment Noted Time PHQ-9 Depression Total Score: 1 06/02/19 18 9:34 AM BIODIESEL ENGINE SPECIALIST documented as of this encounter Care Teams Employment Coordinator Relationship Specialty Start Date End Date Tigre Preciado P.A.-C., P.A. PCP - General Family Medicine 10/11/19 documented as of this encounter
--- OUTSIDE RECORDS SUMMARY | 2023-04-29 13:46 | XMS_ITS | Encounter Summary ---
Author Name Unknown Organization [facility] Address [address] [place] [address] Care Team Providers Care Greenhouse Laborer Name Role Phone Tigre Preciado P.A.-C., P.A. Primary Care Pr ovider Encounter Details Date Type Department Care Team (Latest Contact Info) Description 05/26/2022 Clinical Communication Division of Endocrinology in [place], [place] [address] [place] [phone] Duncan Mcgraw M.D. [address] [place] [address] Social History Tobacco Use Types Packs/Day Years [...] Answer Date Recorded PHQ-2 Score 0 06/26/2021 [facility] [place] of Occupat ional Health - Occupational Stress [...] Total Score: 1 06/02/19 18 9:34 AM INSPECTOR PROCESS documented as of this encounter Care Teams Greenhouse Laborer Relationship Specialty Start Date End Date Tigre Preciado P.A.-C., P.A. PCP - General Family Medicine 10/11/19 documented as of this encounter
--- OUTSIDE RECORDS SUMMARY | 2023-04-29 13:46 | XMS_ITS | Encounter Summary ---
Author Name Unknown Organization [facility] Address [address] [place] [address] Care Team Providers Care Account Leader Name Role Phone Tigre Preciado P.A.-C., P.A. Primary Care Pr ovider Reason for Visit * Reason Onset Date Comments Pre-visit Intake 08/10/2022 Encounter Details Date Type Department Care Team (Latest Contact Info) Description 08/10/2022 2:30 PM CDT Clinical Communication Virtual Review in [place], [place] [address] [place], [place] [phone] Pre-visit Intake Social History Tobacco Use Types [...] Answer Date Recorded PHQ-2 Score 0 06/26/2021 [facility] [place] of Occupat ional Health - Occupational Stress [...] Total Score: 1 06/02/19 18 9:34 AM DRY CLEANING COUNTER CLERK documented as of this encounter Care Teams Account Leader Relationship Specialty Start Date End Date Tigre Preciado P.A.-C., P.A. PCP - General Family Medicine 10/11/19 documented as of this encounter
--- OUTSIDE RECORDS SUMMARY | 2023-04-29 13:46 | XMS_ITS | Encounter Summary ---
Author Name Unknown Organization [facility] Address [address] [place] [address] Care Team Providers Care Post Closer Name Role Phone Tigre Preciado P.A.-C., P.A. Primary Care Pr ovider Reason for Visit * Reason Onset Date Comments OSM notification 07/06/2022 Encounter Details Date Type Department Care Team (Latest Contact Info) Description 07/06/2022 Clinical Communication Breast Diagnostic Clinic in [place], [place] [address] [place] [phone] Amy Anthony M.D. [address] [place] [phone] OSM notification Social History Tobacco Use Types Packs/Day Years [...] Answer Date Recorded PHQ-2 Score 0 06/26/2021 [facility] [place] of Occupat ional Health - Occupational Stress [...] encounter Miscellaneous Notes * Telephone Encounter - Kaylyn Escobar - 07/06/2022 4:04 PM CDT Start OSM Request: 07/06/2022 Kaylyn 1st OSM Request: Patient has been seen at [facility] in [facility]. All images are in QREADS dating back to 2004. 2nd OSM Request: Final Message forwarded to Harlan PRASAD: * Telephone Encounter - Dianne Conway - 07/06/2022 2:08 PM CDT A Breast Clinic New appointment has been scheduled for the following indication: Patient Name: Isadora Back Indication: Nipple discharge/ breast itchy Appointment Date: 07/15 Please refresh Care Everywhere to check for records and also work with the patient to locate and obtain: Outside Records: Patient is seen at a [facility] system so everything should be here already NOTE: If most recent imaging was completed at [facility], then no need for interpretation of older imaging that was done elsewhere. Patient was made aware there will be associated charges from the Radiology or Pathology department to review outside imaging and pathology. When information has been received, please alert the HARLAN TAPPET ADJUSTER (P RST BRS TAPPET ADJUSTER) by forwarding on thismessage for ordering purposes. Thank you! documented in this encounter Plan of Treatment Not on file documented as of this encounter Visit Diagnoses Not on filedocumented in this encounter Additional Health Concerns Assessment Noted Time PHQ-9 Depression Total Score: 1 06/02/19 18 9:34 AM ORTHO RN documented as of this encounter Care Teams Post Closer Relationship Specialty Start Date End Date Tigre Preciado P.A.-C., P.A. PCP - General Family Medicine 10/11/19 documented as of this encounter
--- OUTSIDE RECORDS SUMMARY | 2023-04-29 13:46 | XMS_ITS | Encounter Summary ---
Author Name Unknown Organization [facility] Address [address] [place] [address] Care Team Providers Care Spindle Carver Name Role Phone Tigre Preciado P.A.-C., P.A. Primary Care Pr ovider Reason for Visit * Reason Comments Med Refill Encounter Details Date Type Department Care Team (Late st Contact Info) Description 07/30/2022 Refill Department of Family Medicine, [facility], in [place], [place] [address] [place] [phone] Tigre Preciado P.A.-C., P.A. [address] [place] [phone] Med Refill Social History Tobacco [...] Answer Date Recorded PHQ-2 Score 0 06/26/2021 [facility] [place] of Occupat ional Health - Occupational Stress [...] Total Score: 1 06/02/19 18 9:34 AM WILDLIFE ECOLOGY PROFESSOR documented as of this encounter Care Teams Spindle Carver Relationship Specialty Start Date End Date Tigre Preciado P.A.-C., P.A. PCP - General Family Medicine 10/11/19 documented as of this encounter
--- OUTSIDE RECORDS SUMMARY | 2023-04-29 13:46 | XMS_ITS | Clinical Summary ---
Author Name Unknown Organization [facility] Address [place], [place] [address] Care Team Providers Care Demurrage Clerk Name Role Phone Tigre Preciado Primary Care Provider [phone] Allergies Active Allergy Reactions Criticality Noted Date Comments Amoxicillin-Pot Clavulanate Vomiting 11/07/2020 Cefuroxime Axetil GI Upset Medium 06/02/2017 Ciprofloxacin Myalgia,Other - Describe In Comment Field 08/05/2012 Other reaction(s): Myalgia Fluconazole Other - Describe In Comment Field High 01/20/2010 Lip blister, throat closing diflucan Latex Rash 03/24/2015 Lidocaine-Epinephrine Palpitations 11/07/2014 Metronidazole Myalgia 08/05/2012 Sulfa (Sulfonamide Antibiotics) Nausea Only 02/28/2013 Azithromycin Nausea Only,Headache 02/04/2009 Mood changes Medications Medication Sig Dispensed Refills Start Date End Date Status Calcium-Cholecalcifer ol, D3, (CALCIUM 500+D) 500 mg(1,250mg) -400 unit chewable tabletIndications:Loo se stools Take 1 tablet by mouth once daily. 0 11/07/2009 Active SUMAtriptan (IMITREX) 25 mg tabletIndications:Hea dache(784.0) TAKE ONE TABLET BY MOUTH EVERY 2 HOURS NEEDED FOR MIGRAINE. MAX DOSE: 200MG PER 24 HOURS. 9 tablet 5 03/09/2012 Active Additional Information Patient taking differently:OralQ 2H PRN, Reported on 01/16/2020 vit A,C and K-ioxqcx-jfqupyqa (OCUVITE WITH LUTEIN) 1,000 unit-200 mg-60 unit-2 mg tab Take 1 Tab by mouth once daily. 0 Active Magnesium 200 mg tab Take 400 mg by mouth once daily. 0 Active cyanocobalamin (VITAMIN B12) 100 mcg tablet Take 100 mcg by mouth once daily. 0 Active nystatin (MYCOSTATIN) 100,000 unit/mL suspension Take 500,000 units by mouth. 0 02/21/2020 Active MULTIVITAMIN ORAL Take 1 tablet by mouth once daily. With elderberry 0 Active vit A/vit C/bioflav/Zn/Herb25 (ECHINACEA ACZ ORAL) Take 1 tablet by mouth once daily. 0 Active ondansetron (ZOFRAN) 4 mg tabletIndications:His tory of colonic polyps Take 1 tablet by mouth every 8 hours if needed for Nausea/Vomiting. Take one tablet prior to each half of the Golytely 2 tablet 0 03/12/2020 Active codeine-guaiFENesin (ROBITUSSIN AC) 10-100 mg/5 mL liquidIndications:Cou gh,Acute bronchiolitis due to unspecified organism Take 10 mL by mouth at bedtime if needed for Cough. Max dose 60 mL per 24 hrs. 118 mL 0 02/07/2021 Active Active Problems Problem Noted Date Diagnosed Date Angular cheilitis 12/01/2019 Overview: Prescription for miconazole 2% ointment was [...] of care. Female bladder prolapse 12/01/2019 Overview: Grade 2-3 cystocele present. Prefers to manage with referral to [place] [facility] and accupuncture at this time. Last Assessment & Plan: Referral to [facility] was completed in faxed. She will continue to work with her current organ fixer. We also discussed management options with vaginal estrogen therapy, pessary, or surgical intervention. She is not interested in these options at this time. I recommend she follow up as needed in the future. Osteoporosis 07/20/2017 Personal history of colonic polyps 11/10/2012 Reactive airway disease 07/12/2009 Headache(784.0) 01/09/2009 Immunizations Name Administration Dates Next Due COVID-19 vaccine ([employer] 30mcg/0.3mL) P F, MDV 02/24/2021 Influenza, IIV3 (Age >=3 years) 01/21/2009 Influenza, IIV4 02/03/2021,02/19/2020 Tdap 01/23/2003 Family History Medical History Relation [...] 0 (1 standard drink = 0.6 oz pur e alcohol) 5 glasses of wine/week PHQ-2 Answer Date Recorded PHQ-2 Score 0 06/19/2018 Sex and Gender Information Value Date Recorded Sex Assigned at Not on file Gender Identity Not on file Sexual Orientation Not on file Obstetrics History Para Term AB IAB SAB Ectopic Multiple Livin g Live Births 3 3 3 3 Date Outcome GA Total Labor Labor/2nd/3rd Weight Sex Delivery Anes PTL Sarah Beth A1 A5 Name Cl in Term Term Term Last Filed Vital Signs Vital Sign Reading Time Taken Comments Blood Pressure 110/64 02/07/2021 5:40 PM CDT Pulse 94 02/07/2021 5:40 PM CDT Temperature 36.6 ??C (97.8 ??F) 02/07/2021 5:40 PM CD T Respiratory Rate 16 02/07/2021 5:40 PM CDT Oxygen Saturation 98% 02/07/2021 5:40 PM CDT Inhaled Oxygen Concentration - - Weight 57.2 kg (126 lb) 02/07/2021 5:40 PM CDT Height 159 cm (5' 2.6) 02/29/2020 12:48 PM SENIOR MECHANICAL PROJECT ENGINEER Body Mass Index 22.61 02/29/2020 12:48 PM SENIOR MECHANICAL PROJECT ENGINEER Plan of Treatment Health Maintenance Due Date Last Done Comments BMI (ht and wt on same day) for age 18+ 1965 Hepatitis C screening for age 18-79 1965 Zoster (shingles) series for age 50+ (1 of 2) 1997 DEXA/DXA scan for age 65+ 2012 Medicare Wellness for age 65+ 2012 Pneumococcal series for age 65+ (1 of 1 - PCV) 2012 Tetanus booster 01/23/2013 01/23/2003 Depression screening for age 12+ 11/22/2018 11/23/19 18 COVID-19 vaccine series (4 - 2022-24 season) 2022 02/24/2021, 07/04/2020, 06/06/2020 Influenza for age 65+ 12/18/2022 02/03/2021 , 02/19/2020, 01/21/2009 Tdap Completed 01/23/2003 Advance Directives Latest Code Status on File Code Status Date Activated Date Inactivated Comments Full Code 03/13/2020 7:36 AM 03/13/2020 1:19 PM Question Answer Comments Code Status Discussion: Not Discussed Care Teams Demurrage Clerk Relationship Specialty Start Date End Date Tigre Preciado PA PCP - General Physician Precision Assembly Inspector 01/15/20
--- OUTSIDE RECORDS SUMMARY | 2023-04-29 13:46 | XMS_ITS | Encounter Summary ---
Author Name Unknown Organization [facility] Address [address] [place] [address] Care Team Providers Care Bundle Breaker Name Role Phone Tigre Preciado P.A.-C., P.A. Primary Care Pr ovider Reason for Visit * Episode Based Medications (Routine) - Closed Specialty Diagnoses / Procedures Referred By Contac t Referred To Contact Diagnoses Osteoporosis Procedures [place] ZOLEDRONIC ACID 1MG Duncan Mcgraw M.D. [address] [place] [phone] [address] [place] [address] [place] [phone] Referral ID Status Reason Start Date Expiration Date Visits Re quested Visits Authorized [id number] Closed 07/03/2022 07/03/2023 1 1 Encounter Details Date Type Department Care Team (Late st Contact Info) Description 07/08/2022 10:15 AM CDT Infusion Department of Infusion Therapy in [place], [place] [address] [place] [phone] Duncan Mcgraw M.D. [address] [place] [phone] Osteoporosis (Primary Dx) Discharge Disposition: Home or Self Care Social [...] Answer Date Recorded PHQ-2 Score 0 06/26/2021 [facility] of Occupat ional Health - [...] Sign Reading Time Taken Comments Blood Pressure 170/75 07/08/2022 10:17 AM CDT Pulse 107 07/08/2022 10:17 AM CDT Temperature 36.9 ??C (98.4 ??F) 07/08/2022 10:17 AM C DT Respiratory Rate 18 07/08/2022 10:17 AM CDT Oxygen Saturation - - Inhaled Oxygen Concentration - - Weight - - Height - - Body Mass Index - - documented in this encounter Plan of Treatment Not on file documented as of this encounter Visit Diagnoses Diagnosis Osteoporosis- Primary documented in this encounter Administered Medications Inactive Administered Medications - up to 3 most recent administrations Medication Order MAR Action Action Date Dose Rate Site NaCl 0.9% infusion 10-250 mL/hr, intravenous, As needed, Post Medications (Hazardous/Low Fluid Volume), Starting on Wed07/08/22 at 1011, Infuse at the same rate as the medication until tubing cleared of medication, then discard. New Bag 07/08/2022 10:42 AM CDT 400 mL/hr 400 mL/hr sodium chloride 0.9 % injection 3 mL 3 mL, intra-catheter, As needed, line care, Starting on Wed07/08/22 at 1011, Prior to and following infusion and between multiple consecutive infusions. Given 07/08/2022 10:50 AM CDT 3 mL zoledronic opqz-ohyeunog-kvkbr IVPB 5 mg (RECLAST) 5 mg, intravenous, at 400 mL/hr, Administer over 15 Minutes, Once, On Wed07/08/22 at 1015, For 1 dose, Notify Provider for creatinine clearance less than 35mL/min as treatment is not recommended. Monitor serum creatinine before each dose, Restriction Criteria (Pharmacy will review and approve if criteria met): Osteoporosis patient who has failed or cannot tolerate one of the oral bisphosphonates, alendronate (Fosamax) and risendronate (Actonel) New Bag 07/08/2022 10:27 AM CDT 5 mg 400 mL/hr documented in this encounter Additional Health Concerns Assessment Noted Time PHQ-9 Depression Total Score: 1 06/02/19 18 9:34 AM SCHOOL CROSSING GUARD SUPERVISOR documented as of this encounter Care Teams Bundle Breaker Relationship Specialty Start Date End Date Tigre Preciado P.A.-C., P.A. PCP - General Family Medicine 10/11/19 documented as of this encounter
--- OUTSIDE RECORDS SUMMARY | 2023-04-29 13:46 | XMS_ITS | Encounter Summary ---
Author Name Unknown Organization [facility] Address [address] [place] [address] Care Team Providers Care Wheelchair Rental Clerk Name Role Phone Tigre Preciado P.A.-C., P.A. Primary Care Pr ovider Reason for Visit * Reason Comments Consult * Outpatient (Routine) - Closed Specialty Diagnoses / Procedures Referred By Contcarlie t Referred To Contact Breast Clinic Diagnoses Discharge Nipple Kanchan Granda, C.N.P. [address] [place] [phone] [facility] Referral ID Status Reason Start Date Expiration Date Visits Re quested Visits Authorized [id number] Closed 07/03/2022 07/03/2023 1 1 Encounter Details Date Type Department Care Team ([facility] st Contact Info) Description 08/13/2022 10:30 AM CDT Comprehensive Visit Breast Diagnostic Clinic in [place], [place] [address] [place] [phone] Shelby Austin M.D., [facility] [address] [place] [phone] Pruritus (Primary Dx); Discharge Nipple Social History Tobacco Use Types Packs/Day Years [...] Date Recorded PHQ-2 Score 0 06/26/2021 [facility] of Occupat ional Health - Occupational [...] Sign Reading Time Taken Comments Blood Pressure 147/84 08/13/2022 10:09 AM CDT Pulse 101 08/13/2022 10:09 AM CDT Temperature - - Respiratory Rate - - Oxygen Saturation - - Inhaled Oxygen Concentration - - Weight - - Height - - Body Mass Index - - documented in this encounter Consult Notes * Shelby Austin M.D. - 08/13/2022 10:30 AM CDT SUBJECTIVE CHIEF COMPLAINT / REASON FOR VISIT Left breast itching HISTORY OF PRESENT ILLNESS The patient is a very pleasant 77 y.o. woman who presents today for further evaluation and recommendations in regards to left breast itching. Mrs. Back is a very pleasant 77-year-old woman who is here today for recommendations regarding left breast itching. She says that it comes and goes. It is not continuous and describes it as being spells. She also says that her left armpit itches. She has gone back and forth with natural deodorantsand more traditional ones. She has stopped washing her undergarments in scented detergents. She does have some concerns because her mother was diagnosed with breast cancer because of nipple discharge. She has also had a previous benign right breast biopsy. She denies any current nipple discharge and has not had any either. She denies any skin changes or nipple crusting. BREAST CANCER RISK PROFILE: She has had 3 pregnancies with 3 live births. She was 27 at first parity. She did breast feed. She was 15 at menarche and 52 at menopause. She maintains her uterus and ovaries. She was previously on control for just a short period of time. She did take hormone replacement therapy for 1-2 years. No fertility medications. No LORRIE exposure. No breast pain. She did have a previous surgical breast biopsy which was reportedly benign. She has not received radiation. She did smoke from age [age] but quit. She did have secondhand smoke exposure for 11 years or more but is not currently exposed. She drinks less than 1 alcoholic beverage per week. She exercises 30 minutes or more at least 3 days per week. Weight is stable at 120 pounds. Maximum adult height is 5 feet 4 inches. She describes herself as white, not , and not adopted. FAMILY CANCER HISTORY: Her mother was diagnosed with breast cancer at age 75. She had 2 maternal aunts who were diagnosed with breast cancer and 1 aunt who was diagnosed with colon cancer who ultimately lived to be [facility]. OBJECTIVE PHYSICAL EXAM BP 147/84 (BP Location: Right arm, Patient Position: Sitting, Cuff Size: Regular) Pulse 101 LMP(LMP Unknown) Constitutional: Well-developed and well-nourished. No acute distress. Lymph: No facial, cervical, supraclavicular or axillary lymphadenopathy. Breasts: On inspection, the breasts appear symmetric in size. Nipples are everted. No significant skin discoloration, lesions, retractions or dimpling. No dominant mass in either breast. No nipple discharge elicited from either side. No nipple crusting. No erythema on the left breast.. Skin: Skin is warm and dry. No rash noted. Psychiatric: Normal mood and affect. Appropriate and interactive. ASSESSMENT / PLAN Pruritus, left breast It was a pleasure to meet with Mrs. Back today. We did have the opportunity to review her satisfactory clinical breast exam. We discussed things to be concern for including worsening erythema, persistent itching of the nipple, nipple crusting, or any lumps that she might notice. These would be things that we need to further evaluate should they occur. We did discuss using Vanicream or another lotion free of or fragrances for her skin. She is doing all sorts of things right at this time andwill continue to do those. She will contact me if she has any further concerns. Breast Clinic recommendations: 1. Annual clinical breast exam 2. Annual screening mammogram with tomosynthesis 3. Self-breast awareness of prompt reporting of any concerns 4. Follow-up as needed for breast itching. documented in this encounter Plan of Treatment Not on file documented as of this encounter Visit Diagnoses Diagnosis Pruritus- Primary Discharge Nipple documented in this encounter Additional Health Concerns Assessment Noted Time PHQ-9 Depression Total Score: 1 06/02/19 18 9:34 AM FREIGHT CAR LOADER documented as of this encounter Care Teams Wheelchair Rental Clerk Relationship Specialty Start Date End Date Tigre Preciado P.A.-C., P.A. PCP - General Family Medicine 10/11/19 documented as of this encounter
--- OUTSIDE RECORDS SUMMARY | 2023-04-29 13:46 | XMS_ITS | Encounter Summary ---
Author Name Unknown Organization [facility] Address [address] [place] [address] Care Team Providers Care Java Portal Developer Name Role Phone Tigre Preciado P.A.-C., P.A. Primary Care Pr ovider Reason for Visit * Reason Onset Date Comments Follow-up Orders 07/01/2022 Reclast Encounter Details Date Type Department Care Team (Latest Contact Info) Description 07/01/2022 Clinical Communication Division of Endocrinology in [place], [place] [address] [place] [phone] Duncan Mcgraw M.D. [address] [place] [phone] Follow-up Orders (Reclast) Social History Tobacco Use Types Packs/Day Years [...] Recorded PHQ-2 Score 0 06/26/2021 [facility] [place] of Occupat ional Health - Occupational Stress [...] Total Score: 1 06/02/19 18 9:34 AM DOBBY LOOMS PEGGER documented as of this encounter Care Teams Java Portal Developer Relationship Specialty Start Date End Date Tigre Preciado P.A.-C., P.A. PCP - General Family Medicine 10/11/19 documented as of this encounter
--- OUTSIDE RECORDS SUMMARY | 2023-04-29 13:46 | XMS_ITS | Encounter Summary ---
Author Name Unknown Organization [facility] Address [address] [place] [address] Care Team Providers Care Narrow Gauge Brakeman Name Role Phone Tigre Preciado P.A.-C., P.A. Primary Care Pr ovider Reason for Visit * Reason Onset Date Comments Med Question 05/28/2022 Encounter Details Date Type Department Care Team (Latest Contact Info) Description 05/28/2022 Clinical Communication Division of Endocrinology in [place], [place] [address] [place] [phone] Duncan Mcgraw M.D. [address] [place] [phone] Med Question Social History Tobacco Use Types Packs/Day Years [...] Answer Date Recorded PHQ-2 Score 0 06/26/2021 [facility] [place] of Occupat ional Health - Occupational Stress [...] encounter Miscellaneous Notes * Telephone Encounter - Juana Mcelroy, R.N. - 06/01/2022 10:52 AM PHOSPHATIC FERTILIZER SUPERVISOR SUBJECTIVE CHIEF COMPLAINT / REASON FOR CALL Med Question Information Discussed Spoke with the patient and questions answered. Reviewed that Zoledronic acid (Reclast) is a bisphosphonate given by vein once a year for three to six years to reduce the risk for fractures due to osteoporosis. Zoledronic acid may be continued or stopped after three years depending on risk of fracture. It is important to be well hydrated on the day of the infusion. Patients receiving zoledronic acid for the first time may experience flu-like symptoms for up to 72 hours after the infusion is received. Tylenol (acetaminophen) 500 mg two tablets taken every eight hours the day of and two days after the infusion can minimize these symptoms. This side effect is less likely to occur with subsequentzoledronic acid treatments. Good dental hygiene and routine preventative dental care are recommended when taking bisphosphonate medications. Additionally discussed her vitamin D result note from Dr. Mcgraw on 05/29/2022. No further questions or concerns at this time. Patient was very appreciative of the return call. PLAN Disposition/Recommendation: per the above Information/Education: patient/caller able to teach back Caller agreeable to plan of care: yes The following references were used: nursing clinical judgement and provider Dr. Mcgraw PHATIC FERTILIZER SUPERVISOR documented in this encounter Plan of Treatment Not on file documented as of this encounter Visit Diagnoses Not on filedocumented in this encounter Additional Health Concerns Assessment Noted Time PHQ-9 Depression Total Score: 1 06/02/19 18 9:34 AM PHOSPHATIC FERTILIZER SUPERVISOR documented as of this encounter Care Teams Narrow Gauge Brakeman Relationship Specialty Start Date End Date Tigre Preciado P.A.-C., P.A. PCP - General Family Medicine 10/11/19 documented as of this encounter
--- OUTSIDE RECORDS SUMMARY | 2023-04-29 13:46 | XMS_ITS | Encounter Summary ---
Author Name Unknown Organization [facility] Address [address] [place] [address] Care Team Providers Care Carton Packaging Machine Operator Name Role Phone Tigre Preciado P.A.-C., P.A. Primary Care Pr ovider Reason for Referral * Outpatient (Routine) - Closed Specialty Diagnoses / Procedures Referred By Contac t Referred To Contact Breast Clinic Diagnoses Discharge Nipple Kanchan Granda, C.N.P. [address] [place] [address] [facility] Referral ID Status Reason Start Date Expiration Date Visits Re quested Visits Authorized [id number] Closed 07/03/2022 07/03/2023 1 1 Encounter Details Date Type Department Care Team (Late st Contact Info) Description 07/03/2022 [facility] [address] [place] [address] Kanchan Granda, C.N.P. [address] [place] [address] Discharge Nipple (Primary Dx) Social History Tobacco Use Types [...] Answer Date Recorded PHQ-2 Score 0 06/26/2021 [facility] - Occupational Stress [...] Scheduled Referrals Name Type Priority Associated Diagnoses Orde r Schedule Breast Center Referral Outpatient Referral Routine Discharge Nipple Expected: 07/03/2022 (Approximate), Expires: 10/04/2023 documented as of this encounter Visit Diagnoses Diagnosis Discharge Nipple- Primary documented in this encounter Additional Health Concerns Assessment Noted Time PHQ-9 Depression Total Score: 1 06/02/19 18 9:34 AM COMMUNICATIONS SCIENTIST documented as of this encounter Care Teams Carton Packaging Machine Operator Relationship Specialty Start Date End Date Tigre Preciado P.A.-C., P.A. PCP - General Family Medicine 10/11/19 documented as of this encounter
--- OUTSIDE RECORDS SUMMARY | 2023-04-29 13:46 | XMS_ITS | Encounter Summary ---
Author Name Unknown Organization [facility] Address [address] [place] [id number] Care Team Providers Care Acquisition Professional Name Role Phone Tigre Preciado P.A.-C., P.A. Primary Care Pr ovider Reason for Visit * Outpatient (Routine) - Closed Specialty Diagnoses / Procedures Referred By Contac t Referred To Contact Endocrinology Diagnoses Osteoporosis Without Pathological Fracture Kanchan Granda, C.N.P. [address] [place] [address] [facility] Referral ID Status Reason Start Date Expiration Date Visits Re quested Visits Authorized [id number] Closed 04/15/2022 04/15/2023 1 1 Encounter Details Date Type Department Care Team (Latest Contact Info) Description 05/26/2022 10:00 AM DAIRY CATTLE FARMER Comprehensive Visit Division of Endocrinology in [place], [place] [address] [place] [phone] Duncan Mcgraw M.D. [address] [place] [phone] Osteoporosis Without Pathological Fracture Social History Tobacco Use Types Packs/Day Years [...] Answer Date Recorded PHQ-2 Score 0 06/26/2021 [facility] - Occupational Stress Questionnaire Answer Date Recorded [...] Sign Reading Time Taken Comments Blood Pressure 149/100 05/26/2022 9:30 AM DAIRY CATTLE FARMER swe ater on Pulse 102 05/26/2022 9:30 AM DAIRY CATTLE FARMER Temperature - - Respiratory Rate - - Oxygen Saturation - - Inhaled Oxygen Concentration - - Weight 56 kg (123 lb 7.3 oz) 05/26/2022 9:30 AM DAIRY CATTLE FARMER Height 160.3 cm (5' 3.11) 05/26/2022 9:30 AM CS T Body Mass Index 21.79 05/26/2022 9:30 AM DAIRY CATTLE FARMER documented in this encounter H&P Notes * Duncan Mcgraw M.D. - 05/26/2022 10:00 AM CST [facility] Endocrinology, Diabetes, Metabolism and Nutrition Bone/Osteoporosis Clinic Date of Visit: 05/26/2022 Clinician: Duncan Mcgraw M.D. Chief Complaint: Osteoporosis History of Present Illness Isadora Back is a 77 y.o. female who presents to the endocrine/bone clinic for consultation and evaluation of osteoporosis management. Pertinent Skeletal History: Past clinical//radiographic fracture: Patient had a rib fracture when she was getting out of a tub and slipped and her chest fell against the top/side of the tub. No other history of fractures. Bone mineral density: Most recent bone density performed at [facility] 04/01/2022 revealed osteoporosis at the lumbar spine (L1-4 density 0.690 g per cm2 (T-score -3.2). Her bonedensity is also in the osteoporosis range at the right hip femur neck (T-score -2.5) and left totalhip (T-score -2.6). Past osteoporosis therapy: More than 15 years ago she was prescribed alendronate therapy for osteoporosis but after 3-4 months she developed groin pain and it was discontinued. The pain subsided shortly after discontinuing alendronate and has not recurred. Gonadal history: Menopause age [age] years. She took hormone replacement therapy for very brief. But it caused migraine headaches and it was discontinued. 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 She currently takes medication for her symptoms with good control. GI or Bariatric surgery: None Kidney dysfunction/stone history: None Loss of height: 1/2 inch loss of height for maximal height of 5 ft 3.5 in Back/Joint pain: She denies back and hip pain. She does have some intermittent knee osteoarthritic related pain and pain at the base of her skull on occasion. She seeks physical therapy for her neck pain. Activity/weight bearing exercise/fall risk: She tends to walk for activities during the day. She enjoys swimming in the summer. 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 Dental health/Oral surgery: Past history of tooth filling. Currently working with her dentist for adental bridge. No planned oral surgery. Dietary Calcium/Supplements: Calcium and supplement intake: Takes Caltrate once daily and when remembers twice daily though thisis likely 50% or less of the time. Also takes magnesium supplement and daily multivitamin as a gummy. Does not take other supplemental vitamin-D. Dairy intake is limited to 1 cheese daily and occasional ice cream or cottage cheese in the summer. She is not drink milk nor consume yogurt. Habits: Smoking history: Smoked for few years from age [age] but none since that time. Alcohol use: Enjoys an occasional glass of wine with friends though no regular daily alcohol intake. Family History: Mother lived to age 90. Sister with bone marrow cancer. She is unclear if there is any family history of osteoporosis. The following portions of the patient's history were also reviewed and updated as appropriate: allergies, current medications, family history, medical history, social history, surgical history, and problem list. BP (!) 149/100 (BP Location: Right arm, Patient Position: Sitting, Cuff Size: Regular) Comment: sweater on Pulse 102 Ht 160.3 cm Wt 56 kg LMP (LMP Unknown) BMI 21.79 kg/m?? Physical Examination/Observation General: Very pleasant demeanor in no acute distress HEENT: Teeth in good repair. No oral lesions. Thyroid: without goiter or palpable nodules. Muscle: Petite build though muscle mass is appropriate for age and gender. 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 Neuro: Able to rise from seated position without assistance. Gait normal. Balance normal. Spine: midthoracic [id number] kyphosis but nontender to palpation and percussion. No hip trochanteric tenderness. Skin: non tanned. Noncushingoid. Impression/Report/Plan I reviewed the available laboratory, radiographic and other test findings pertinent to this visit and discussed these results with the patient. I discussed the following treatment plan with the patient: #1 Osteoporosis Without Pathological Fracture Patient has well established osteoporosis both by bone mineral density and rib fracture. She did not tolerate oral bisphosphonate in the remote past. She is a candidate for parental anti resorptive therapy. We discussed that zoledronate (Reclast) is bisphosphonate antiresorptive drug administered intravenously once a year to reduce the risk of bone loss and fractures. Discussion with the patient included the risks, benefits, and potential side effects of zoledronic acid use (I.e., flu-like symptoms, mu sculoskeletal aches and deep bone pain, osteonecrosis of the jaw, etc.) Zoledronate is deposited inbone, and typically used for 3 to 5 years before considering a drug holiday. The following was discussed with the patient: 1. Good dental hygiene and routine preventative dental care are recommended while receiving zoledronic acid/Reclast. 2. Adequate replacement of calcium (2238-9690 mg/day of elemental calcium in divided doses) via diet and/or calcium supplement. Provided her with a patient education handout regarding calcium contentof foods. If she is not able to increase her calcium food intake she agrees to take her Caltrate as1 tablet twice daily rather than just once daily in the morning. 3. Adequate administration of vitamin-D3 (cholecalciferol to achieve a blood level of 30-50 ng/mL for skeletal health. We will measure vitamin-D today along with calcium and vitamin-D and I will write her with those results. 4. Patient wishes to consider the use of zoledronic acid before agreeing to its administration. I provided her with both verbal information above and written information to take share with her . If she wishes to begin Reclast therapy, she can have this done more locally or I am happy to arrange for it to be done at [facility] in [place]. She should have a bone mineral density in 1 year to document effectiveness of zoledronate/Reclast use, and then every 2 years thereafter whether or not zoledronate therapy is continued. (a) Bone mineral density every 2 years during zoledronate/Reclast therapy would ensure drug effectiveness. Zoledronate is deposited in bone, and typically used for 3 to 5 years before considering a drug holiday. (b) A drug holiday could be considered when the bone mineral density increase plateaus, and if the bone mineral density is not in the osteoporosis range and there have been no clinical fractures during zoledronate/Reclast administration. (c) Resuming zoledronate/Reclast use after a drug holiday should occur if there is a significant loss of bone at any 2 year interval of bone density monitoring during a drug holiday. Total time for the encounter 55 minutes with more than 50% of time in [id number] discussion with the patient who was alone today. Y CATTLE FARMER documented in this encounter Plan of Treatment Not on file documented as of this encounter Results * Calcium, Total (05/26/2022 11:02 AM DAIRY CATTLE FARMER) Calcium, Total, S 10.1 8.8 - 10.2 mg/dL 05/26/2022 11:57 AM DAIRY CATTLE FARMER DTL Blood (Blood, Venous) 05/26/2022 11:02 AM DAIRY CATTLE FARMER 05/26/2022 11:36 AM DAIRY CATTLE FARMER Duncan Mcgraw M.D. LAB BLOOD ADD-ON Performing Organization Address City/[facility]/ZIP Co de Phone Number [address] [place] [address] * Creatinine with Estimated GFR (05/26/2022 11:02 AM DAIRY CATTLE FARMER) Creatinine 0.94 0.59 - 1.04 mg/dL 05/26/2022 11:57 AM DAIRY CATTLE FARMER DTL Estimated GFR (eGFR) 63 >=60 mL/min/BSA 05/26/2022 11:57 AM DAIRY CATTLE FARMER DTL Comment: Estimated GFR calculated using the 2020 CKD_EPI creatinine equation. Blood (Blood, Venous) 05/26/2022 11:02 AM DAIRY CATTLE FARMER 05/26/2022 11:36 AM DAIRY CATTLE FARMER Duncan Mcgraw M.D. LAB BLOOD ADD-ON [address] [place] [address] * 25-Hydroxyvitamin D2 and D3 (05/26/2022 11:02 AM DAIRY CATTLE FARMER) 25-Hydroxy D2 <4.0 ng/mL 05/28/2022 3:38 PM DAIRY CATTLE FARMER SDS 25-Hydroxy D3 57 ng/mL 05/28/2022 3:38 PM DAIRY CATTLE FARMER SDS 25-Hydroxy D Total 57 ng/mL 2022 3:38 PM DAIRY CATTLE FARMER [facility] Comment: Interpretation: 51-80 ng/mL (increased risk of hypercalciuria) ----REFERENCE VALUE---- 25-HYDROXY D TOTAL (D2+D3) Optimum levels in the healthy population are 20-50, patients with bone disease may benefit from higher levels within this range. ----ADDITIONAL INFORMATION---- This test was developed and its performance characteristics determined by [facility] in a manner consistent with CLIA requirements. This test has not been cleared or approved by the U.S. Food and Drug Administration. Blood (Blood, Venous) 05/26/2022 11:02 AM DAIRY CATTLE FARMER 05/26/2022 3:01 PM DAIRY CATTLE FARMER Duncan Mcgraw M.D. LAB BLOOD ADD-ON [facility] [address] [place] [address] [facility] [address] [place] [address] documented in this encounter Visit Diagnoses Diagnosis Osteoporosis Without Pathological Fracture documented in this encounter Additional Health Concerns Assessment Noted Time PHQ-9 Depression Total Score: 1 06/02/19 18 9:34 AM DAIRY CATTLE FARMER documented as of this encounter Care Teams Acquisition Professional Relationship Specialty Start Date End Date Tigre Preciado P.A.-C., P.A. PCP - General Family Medicine 10/11/19 documented as of this encounter
--- NOTE | 2023-04-29 14:00 | CRLHL7_ITS ---
For Patients: As a result of the Century Cures Act, medical imaging exams and procedure reports are released immediately into your electronic medical record. You may view this report before your referring provider. If you have questions, please contact your health care provider. BILATERAL SCREENING MAMMOGRAM WITH COMPUTER-AIDED DETECTION AND TOMOSYNTHESIS TECHNIQUE: CC and MLO views were obtained. These mammographic images have been obtained using full-field digital technique. These mammographic images were interpreted with the benefit of computer-aided detection. Breast Tomosynthesis was used in this interpretation. COMPARISON FILM: 04/01/22, 01/21/21, 11/21/19. FINDINGS: The breasts are heterogeneously dense, which may obscure small masses IMPRESSION: There is no radiographic evidence for malignancy. ASSESSMENT: BI-RADS Category 2: Benign RECOMMENDATION: Routine screening mammogram in 1 year. A lay language report of this examination will be provided to the patient. Sanjeev Hendricks M.D. Diagnostic Radiologist [email or web address] KIRILL/Dictated by: Sanjeev Hendricks MD @ 05/06/2023 1:04:00 PM (Electronically Signed)
== END 2023-04-29 13:42 | disposition home or self-care (01) ==
LOC: MAMMO 13:43
PROVIDERS: PCP Nurse Practitioner Family; Visit Provider Nurse Practitioner Family
DX: Z12.31 Encounter for screening mammogram for malignant neoplasm of breast (principal); R92.2 Inconclusive mammogram
CPT/HCPCS: 77063; 77067

== ENCOUNTER 2023-05-21 16:03 | Outpatient (CLI) | payer MEDICARE, SELFPAY ==
--- NOTE | 2023-05-21 16:00 | CRLHL7_ITS ---
For Patients: As a result of the Century Cures Act, medical imaging exams and procedure reports are released immediately into your electronic medical record. You may view this report before your referring provider. If you have questions, please contact your health care provider. Comparison: None Impression: Negative exam. No sign of DVT. Complex fluid collection medially about the proximal calf measures up to 5.3 centimeters and is most compatible with a hematoma. Dictated by Andrew Mcelroy MD @ 05/21/2023 4:52:58 PM (Electronically Signed)
--- OUTSIDE RECORDS SUMMARY | 2023-05-21 16:10 | XMS_ITS | Clinical Summary ---
Author Name Unknown Organization [facility] Address [address] [place] [address] Care Team Providers Care Clerk Rating Name Role Phone Tigre Preciado P.A.-C., P.A. Primary Care Pr ovider Source Comments Patient records contain information from all sites at [facility]. For routine questions regarding patient records, call [phone] during business hours, M-F 8:00 AM - 5:00 PM Central Time. Record requests for emergency care only can be directed to [phone] at any time.[facility] Allergies Active Allergy Reactions Criticality Noted Date [...] mg by mouth daily. 0 Active vitamin A,C,N-tpihhv-zofxm als (OCUVITE W/LUTEIN) 1,000 Unit-200 mg-60 Unit-2 [...] wheezing. 8 g 3 07/02/2021 Active zoledronic whrb-syfjaqhF-xrhp r (RECLAST) 5 mg/100 mL piggyback Infuse [...] fingertip 30 g 8 02/05/2023 02/05/2024 Active Paxlovid 300 mg (150 mg x 2)-100 mg dose pack Take 3 tablets by mouth 2 (two) times a day. 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 We also discussed management options with vaginal [...] Encounters Date Type Department Care Team Description 05/16/2023 3:57 PM MEDICAL DELIVERY DRIVER - 05/16/2023 11:59 PM MEDICAL DELIVERY DRIVER Hospital Encounter Department of Radiology in [place], [place] [address] [place] [address] Zoe Hope M.D., M.S. Injury Head Initial Discharge Disposition: Home or Self Care 05/16/2023 3:56 PM MEDICAL DELIVERY DRIVER Hospital Encounter Department of Radiology in [place], [place] [address] [address] Zoe Hope M.D., M.S. Injury Head Initial Discharge Disposition: Home or Self Care 05/16/2023 3:00 PM MEDICAL DELIVERY DRIVER Office Visit Department of Family Medicine, [facility], in [place], [place] [address], [place] [address] Zoe Hope M.D., M.S. Injury Head Initial (Primary Dx); History Of Falling 05/16/2023 Clinical Communication Department of Orthopedic Surgery in [place], [place] [address] [place] [address] Sebastián Esteban M.D. 05/16/2023 Nurse Triage Department of Family [facility], [facility], in [place], [place] [address] [address] Valerie Wadsworth R.N. Head Injury; Knee Injury from Last 3 Months Immunizations Name Administration Dates Next Due Influenza high dose QV(65 ye ars or older) (PF) 01/21/2023,01/19/2022 Influenza, Injectable, Quadrivalent 02/19/2020 Influenza, Seasonal, Injectable 04/06/20 12,01/21/2009,02/20/2008,2006,02/24/2006 Influenza, Unspecified 03/07/2014,02/16/2013, PCV13 05/29/2014 PPSV23(Discontinued) 04/08/2012 RZV (SHINGRIX) 08/10/2022(Deferred: Patient Refused - Pt. will receive later locally.),07/23/2022(Deferred: Patient Refused - Pt. will receive later locally.),02/21/2020(Deferred: Other) SARS-COV-2 (COVID-19) - MODERNA(Discontinued) 07/04/2020,06/06/2020 Td (Adult), adsorbed 01/23/2003 Tdap 01/21/2023,04/03/2013 Zoster, Unspecified 02/21/2020(Deferred: Other) influenza vaccine quad (FLUZONE/FLUARIX) (6 months and older)(PF) 02/03/2021,02/19/2020 Family History Medical History Relation Name Comments Cancer Brother tibozena laryngeal cance r Cancer Father laryngeal cance [...] Answer Date Recorded PHQ-2 Score 0 06/26/2021 [facility] - Occupational Stress [...] Sign Reading Time Taken Comments Blood Pressure 150/89 05/16/2023 2:41 PM MEDICAL DELIVERY DRIVER Pulse 111 05/16/2023 2:41 PM MEDICAL DELIVERY DRIVER Temperature 37.5 ??C (99.5 ??F) 05/16/2023 2:41 PM CS T Respiratory Rate 16 08/15/2022 12:16 PM CDT Oxygen Saturation 99% 08/15/2022 12:16 PM CDT Inhaled Oxygen Concentration - - Weight 56.7 kg (125 lb) 05/16/2023 2:41 PM MEDICAL DELIVERY DRIVER Height 160.3 cm (5' 3.11) 05/26/2022 9:30 AM CS T Body Mass Index 22.07 05/26/2022 9:30 AM MEDICAL DELIVERY DRIVER Plan of Treatment Health Maintenance Due Date Last Done Comments Visit: Medicare Annual Wellness 1945 Zoster Vaccines (1 of 2) 1997 Depression Screening (Annual PHQ-2) 04/19/2023 Fall Risk Screen (Annual) 04/19/2023 Bone Density Scan Monitoring 02/24/202410/2021 (Performed elsewhere), 07/01/2017 Visit: Annual, age 65+ (or Medicare and <65) 05/16/2024 05/16/2023 DTaP,Tdap,and Td Vaccines (3 - Td or Tdap) 01/21/2033 01/21/2023, 04/03/2013, 01/23/2003 Pneumococcal vaccine (65+ years) Completed 05/29/19 15, 04/08/2012 Hepatitis C Screening Completed 06/01/2016 Colonoscopy Discontinued 03/13/2020, 07/2 08/2012, 11/10/2012 Colorectal Cancer Surveillance Discontinued Mammogram Discontinued 04/01/2022, 10/0 08/2020, 11/21/2019, Additional history exists Influenza Vaccine Completed 01/21/2023, , 02/03/2021, Additional history exists COVID-19 Vaccine Completed 03/29/2023, , 10/17/2021, Additional history exists CT Colonography Discontinued Cologuard Discontinued Procedures Procedure Name Priority Date/Time Associated Diagnosis Comments DX KNEE LEFT 4+ VIEWS RAD - Semiurgent (Fast; most ED patients; some inpatients) 05/16/2023 4:34 PM MEDICAL DELIVERY DRIVER Injury Head Initial CT HEAD WITHOUT IV CONTRAST RAD - Semiurgent (Fast; most ED patients; some inpatients) 05/16/2023 4:29 PM MEDICAL DELIVERY DRIVER Injury Head Initial URINALYSIS WITH MICROSCOPIC Routine 05/16/2023 4:06 PM MEDICAL DELIVERY DRIVER Injury Head Initial BACTERIAL CULTURE, AEROBIC + SUSC, URINE Routine 05/16/2023 4:06 PM MEDICAL DELIVERY DRIVER Injury Head Initial CBC WITH DIFFERENTIAL, B Routine 05/16/2023 4:05 PM MEDICAL DELIVERY DRIVER Injury Head Initial MAGNESIUM, S Routine 05/16/2023 4:05 PM MEDICAL DELIVERY DRIVER Injury Head Initial PHOSPHORUS (INORGANIC), S Routine 05/16/2023 4:05 PM MEDICAL DELIVERY DRIVER Injury Head Initial ECG Routine 05/16/2023 3:50 PM MEDICAL DELIVERY DRIVER Injury Head Initial BASIC METABOLIC PANEL, S/P Routine 05/16/2023 3:35 PM MEDICAL DELIVERY DRIVER Injury Head Initial FERRITIN, S Routine 05/16/2023 1:35 PM MEDICAL DELIVERY DRIVER Injury Head Initial from Last 3 Months Results * DX Knee Left 4+ Views (05/16/2023 4:34 PM MEDICAL DELIVERY DRIVER) Anatomical Region Laterality Modality Lower Extremity, Knee, Muscu loskeletal RST LOS, Musculoskeletal ARZ LOS, Muskuloskeletal FLA LOS Left Digit al Radiography Impressions 05/16/2023 4:38 PM MEDICAL DELIVERY DRIVER Approximately 14.2 x 3.3 cm region of consolidation along the medial left knee, suggestive of hemorrhage, possibly due to medial collateral ligament damage. Narrative 05/16/2023 4:38 PM MEDICAL DELIVERY DRIVER EXAM: DX KNEE LEFT 4+ VIEWS COMPARISON: 06/14/2013 FINDINGS: There are no acute fractures or dislocations. There is an approximately 14.2 x 3.3 cm soft tissue focus along the medial knee compartment, likely hemorrhage, suggesting damage to the medial collateral ligament. Clinical correlation is necessary. Procedure Note Jimmy Larios M.D. - 05/16/2023 EXAM: DX KNEE LEFT 4+ VIEWS COMPARISON: 06/14/2013 FINDINGS: There are no acute fractures or dislocations. There is anapproximately 14.2 x 3.3 cm soft tissue focus along the medial kneecompartment, likely hemorrhage, suggesting damage to the medial collateralligament. Clinical correlation is necessary. IMPRESSION: Approximately 14.2 x 3.3 cm region of consolidation along the medial leftknee, suggestive of hemorrhage, possibly due to medial collateral ligamentdamage. Zoe Hope M.D., M.S. IMG DIAGNOSTIC IMAG ING PROCEDURES * CT Head without IV Contrast (05/16/2023 4:29 PM MEDICAL DELIVERY DRIVER) Anatomical Region Laterality Modality Head, Neuroradiology RST LOS , Neuroradiology ARZ LOS, Neuroradiology FLA LOS N/A Computed Tomography 05/16/2023 4:26 PM MEDICAL DELIVERY DRIVER Impressions 05/16/2023 4:55 PM MEDICAL DELIVERY DRIVER Cerebral atrophy and small vessel ischemic disease. Otherwise normal CT of the head without contrast. Narrative 05/16/2023 4:55 PM MEDICAL DELIVERY DRIVER EXAM: CT HEAD WITHOUT IV CONTRAST COMPARISON: None FINDINGS: There is no evidence of acute intracranial hemorrhage. There is no intracranial mass. There is no midline shift. Ventricles and sulci are greater in size than expected for the patient's given age. There is no evidence of acute infarction. Periventricular and subcortical white matter areas of low attenuation likely representing chronic microvascular ischemic changes. The skull is intact, with no fracture or lytic lesion. There is moderate right maxillary sinus disease with mild extension into the ethmoid and sphenoid sinus on the right. Procedure Note Jimmy Larios M.D. - 05/16/2023 EXAM: CT HEAD WITHOUT IV CONTRAST COMPARISON: None FINDINGS: There is no evidence of acute intracranial hemorrhage. There isno intracranial mass. There is no midline shift. Ventricles and sulci aregreater in size than expected for the patient's given age. There is noevidence of acute infarction. Periventricular and subcortical white matter areas of low attenuationlikely representing chronic microvascular ischemic changes. The skull isintact, with no fracture or lytic lesion. There is moderate rightmaxillary sinus disease with mild extension into the ethmoid and sphenoid sinus on the right. IMPRESSION: Cerebral atrophy and small vessel ischemic disease. Otherwise normal CT ofthe head without contrast. Zoe Hope M.D., M.S. IMG CT PROCEDURES * Bacterial Culture, Aerobic + Susceptibility, Urine (05/16/2023 4:06 PM MEDICAL DELIVERY DRIVER) Pathologist [facility] [place] Urine Culture No growth after 1 day of incubation. 05/18/2023 8:29 AM MEDICAL DELIVERY DRIVER [facility] Urine (Urine, Midstream) 05/16/2023 4:06 PM MEDICAL DELIVERY DRIVER 05/17/2023 1:48 PM MEDICAL DELIVERY DRIVER Comment:Specimen Source Site : Urine Zoe Hope M.D., M.S. LAB MICROBIOLOGY - GENERAL ORDERABLES [facility] [address] [place] [address], [facility] MKTO [facility] in [place] [address] [place] [address] * Urinalysis with Microscopic: Urine, Midstream (05/16/2023 4:06 PM MEDICAL DELIVERY DRIVER) Source Urine, Urine, Midstream 05/16/2023 4:45 PM MEDICAL DELIVERY DRIVER OWAT Clarity Clear Clear 05/16/2023 4:47 PM MEDICAL DELIVERY DRIVER OWAT Color Yellow 05/16/2023 4:45 PM MEDICAL DELIVERY DRIVER OWAT Comment: ----REFERENCE VALUE---- Colorless Yellow Ny Blood Negative Negative 05/16/2023 4:45 PM MEDICAL DELIVERY DRIVER OWAT Nitrite Negative Negative 05/16/2023 4:45 PM MEDICAL DELIVERY DRIVER OWAT Leukocyte Esterase Negative Negative 05/16/2023 4:45 PM MEDICAL DELIVERY DRIVER OWAT Protein Negative mg/dL 05/16/2023 4:45 PM MEDICAL DELIVERY DRIVER OWAT Comment: ----REFERENCE VALUE---- Negative Trace Glucose Negative Negative mg/dL 05/16/2023 4:45 PM MEDICAL DELIVERY DRIVER OWAT Ketone Negative Negative mg/dL 05/16/2023 4:45 PM MEDICAL DELIVERY DRIVER OWAT Bilirubin Negative Negative 05/16/2023 4:45 PM MEDICAL DELIVERY DRIVER OWAT pH 5.5 5.0 - 8.0 05/16/2023 4:45 PM MEDICAL DELIVERY DRIVER OWAT Specific [place] 1.005 1.001 - 1.035 05/16/2023 4:45 PM MEDICAL DELIVERY DRIVER OWAT Urobilinogen 0.2 0.2 - 1.0 mg/dL 05/16/2023 4:45 PM MEDICAL DELIVERY DRIVER OWAT White Blood Cells None Seen /hpf 05/16/2023 4:47 PM MEDICAL DELIVERY DRIVER OWAT Comment: ----REFERENCE VALUE---- Males: 0-3 Females: 0-10 Unknown: 0-10 Red Blood Cells None Seen 0 - 2 /hpf 4:47 PM MEDICAL DELIVERY DRIVER OWAT Hyaline Casts 1-3 /lpf 05/16/2023 4:47 PM MEDICAL DELIVERY DRIVER OWAT Urine (Urine, Midstream) 05/16/2023 4:06 PM MEDICAL DELIVERY DRIVER 05/16/2023 4:41 PM MEDICAL DELIVERY DRIVER Zoe Hope M.D., M.S. LAB URINE ORDERABLE S [facility] [address] [place] [address], [facility] OWAT [facility] [place] [address] [place] [address] * (ABNORMAL) CBC with Differential, Blood (05/16/2023 4:05 PM MEDICAL DELIVERY DRIVER) Hemoglobin 13.3 11.6 - 15.0 g/dL 05/16/2023 4:09 PM MEDICAL DELIVERY DRIVER OWAT Hematocrit 39.5 35.5 - 44.9 % 05/16/2023 4:09 PM MEDICAL DELIVERY DRIVER OWAT Erythrocytes 4.28 3.92 - 5.13 x10(12)/L 05/16/2023 4:09 PM MEDICAL DELIVERY DRIVER OWAT MCV 92.3 78.2 - 97.9 fL 05/16/2023 4:09 PM MEDICAL DELIVERY DRIVER OWAT RBC Distrib Width 12.2 12.2 - 16.1 % 05/16/2023 4:09 PM MEDICAL DELIVERY DRIVER OWAT Platelet Count 433(H) 157 - 371 x10(9)/L 05/16/2023 4:09 PM MEDICAL DELIVERY DRIVER OWAT Leukocytes 10.2(H) 3.4 - 9.6 x10(9)/L 05/16/2023 4:09 PM MEDICAL DELIVERY DRIVER OWAT Neutrophils 6.87(H) 1.56 - 6.45 x10(9)/L 05/16/2023 4:09 PM MEDICAL DELIVERY DRIVER OWAT Lymphocytes 2.46 0.95 - 3.07 x10(9)/L 05/16/2023 4:09 PM MEDICAL DELIVERY DRIVER OWAT Monocytes 0.70 0.26 - 0.81 x10(9)/L 05/16/2023 4:09 PM MEDICAL DELIVERY DRIVER OWAT Eosinophils 0.07 0.03 - 0.48 x10(9)/L 05/16/2023 4:09 PM MEDICAL DELIVERY DRIVER OWAT Basophils 0.05 0.01 - 0.08 x10(9)/L 05/16/2023 4:09 PM MEDICAL DELIVERY DRIVER OWAT Blood (Blood, Venous) 05/16/2023 4:05 PM MEDICAL DELIVERY DRIVER 05/16/2023 4:05 PM MEDICAL DELIVERY DRIVER Zoe Hope M.D., M.S. LAB BLOOD ADD-ON [facility] [address] [place] [address], [facility] OWAT [facility] [place] [address] [place] [address] * Phosphorus Inorganic (05/16/2023 4:05 PM MEDICAL DELIVERY DRIVER) Phosphorus (Inorganic), P 3.7 2.5 - 4.5 mg/dL 05/17/2023 3:17 PM MEDICAL DELIVERY DRIVER AUST Blood (Blood, Venous) 05/16/2023 4:05 PM MEDICAL DELIVERY DRIVER 05/17/2023 3:02 PM MEDICAL DELIVERY DRIVER Zoe Hope M.D., M.S. LAB BLOOD ADD-ON Performing Organization Address City/[facility]/ZIP Co de Phone Number [facility] [address] [place] [address], [place] A[place] [facility] [address] [place] [address] * Magnesium (05/16/2023 4:05 PM MEDICAL DELIVERY DRIVER) Magnesium, P 2.3 1.7 - 2.3 mg/dL 05/16/2023 4:17 PM MEDICAL DELIVERY DRIVER OWAT Blood (Blood, Venous) 05/16/2023 4:05 PM MEDICAL DELIVERY DRIVER 05/16/2023 4:05 PM MEDICAL DELIVERY DRIVER Zoe Hope M.D., M.S. LAB BLOOD ADD-ON Performing Organization Address City/[facility]/ZIP Co de Phone Number [facility] [address] [place] [address], [place] [employer] [facility] [place] [address] [place] [address] * ECG 12 Lead (05/16/2023 3:50 PM MEDICAL DELIVERY DRIVER) Ventricular Rate ECG/Min 92 BPM MUSE DE Interval 148 ms MUSE QRSD Interval 80 ms MUSE QT Interval 356 ms MUSE QTC Interval 440 ms MUSE P [place] 70 degrees MUSE R [place] 55 degrees MUSE T Wave [place] 36 degrees MUSE 05/16/2023 3:50 PM MEDICAL DELIVERY DRIVER 05/16/2023 4:23 PM MEDICAL DELIVERY DRIVER Impressions MUSE - 05/16/2023 4:23 PM MEDICAL DELIVERY DRIVER Normal sinus rhythm Normal ECG When compared with ECG of 15-AUG-2022 12:49, No significant change was found Reviewed by MAYLIN Cool Narrative Procedure Note Sree Valladares M.D., Ph.D. - 05/16/2023 IMPRESSION: Normal sinus rhythm Normal ECG When compared with ECG of 15-AUG-2022 12:49, No significant change was found Reviewed by MAYLIN Cool Zoe Hope M.D., M.S. ECG ORDERABLES MUSE NA * (ABNORMAL) Basic Metabolic Panel (05/16/2023 3:35 PM MEDICAL DELIVERY DRIVER) Pathologist [facility] [place] Potassium, P 4.3 3.6 - 5.2 mmol/L 05/16/2023 4:40 PM MEDICAL DELIVERY DRIVER OWAT Sodium, P 134(L) 135 - 145 mmol/L 05/16/2023 4:40 PM MEDICAL DELIVERY DRIVER OWAT Chloride, P 97(L) 98 - 107 mmol/L 05/16/2023 4:40 PM MEDICAL DELIVERY DRIVER OWAT Bicarbonate, P 24 22 - 29 mmol/L 05/16/2023 4:40 PM MEDICAL DELIVERY DRIVER OWAT Anion Gap, P 13 7 - 15 05/16/2023 4:40 PM MEDICAL DELIVERY DRIVER OWAT BUN (Blood Urea Nitrogen), P 16 6 - 21 mg/dL 05/16/2023 4:40 PM MEDICAL DELIVERY DRIVER OWAT Creatinine 0.81 0.59 - 1.04 mg/dL 05/16/2023 4:40 PM MEDICAL DELIVERY DRIVER OWAT Estimated GFR (eGFR) 75 >=60 mL/min/BSA 05/16/2023 4:40 PM MEDICAL DELIVERY DRIVER OWAT Comment: Estimated GFR calculated using the 2020 CKD_EPI creatinine equation. Calcium, Total, P 9.8 8.8 - 10.2 mg/dL 05/16/2023 4:40 PM MEDICAL DELIVERY DRIVER OWAT Glucose, P 102 70 - 140 mg/dL 05/16/2023 4:40 PM MEDICAL DELIVERY DRIVER OWAT Blood (Blood, Venous) 05/16/2023 3:35 PM MEDICAL DELIVERY DRIVER 05/16/2023 4:22 PM MEDICAL DELIVERY DRIVER Zoe Hope M.D., M.S. LAB BLOOD ADD-ON [facility] [address] [place] [address], [place] [employer] [facility] [place] [address] [place] [address] * Ferritin (05/16/2023 1:35 PM MEDICAL DELIVERY DRIVER) Ferritin, S 192 11 - 328 mcg/L 05/17/2023 9:14 AM MEDICAL DELIVERY DRIVER OWAT Comment: Biotin has been identified by the inventory checker as a potential interfering substance. Higher concentrations of biotin may be found in multivitamins, hair/nail supplements, and workout supplements. If the result does not match clinical observations, repeat testing after patient refrains from the use of supplements for at least 12 hours. Blood (Blood, Venous) 05/16/2023 1:35 PM MEDICAL DELIVERY DRIVER 05/16/2023 4:07 PM MEDICAL DELIVERY DRIVER Zoe Hope M.D., M.S. LAB BLOOD ADD-ON [facility] [address] [place] [address], [place] [facility] [place] [address] [place] [address] from Last 3 Months Care Teams Clerk Rating Relationship Specialty Start Date End Date Tigre Preciado P.A.-C., P.A. PCP - General Family Medicine 10/11/19
--- OUTSIDE RECORDS SUMMARY | 2023-05-21 16:11 | XMS_ITS | Encounter Summary ---
Author Name Unknown Organization [facility] Address [address] [place] [address] Care Team Providers Care Driver Merchandiser Name Role Phone Tigre Preciado P.A.-C., P.A. Primary Care Pr ovider Reason for Visit * Reason Onset Date Comments Head Injury 05/16/2023 Knee Injury 05/16/2023 Encounter Details Date Type Department Care Team (Late st Contact Info) Description 05/16/2023 Nurse Triage Department of Family Medicine, [facility], in [place], [place] [address] [place] [address] Valerie Wadsworth, R.N. Head Injury; Knee Injury Social History Tobacco Use Types Packs/Day Years [...] Answer Date Recorded PHQ-2 Score 0 06/26/2021 [facility] - Occupational Stress [...] encounter Miscellaneous Notes * Telephone Encounter - Valerie Wadsworth, REldaN. - 05/16/2023 2:23 PM BROADBAND INSTALLER Chief Complaint / Reason for Call Patient is a 78 y.o. female and calling regarding Head Injury and Knee Injury Assessment Concern: [place] dizzy when she got up to go to the restroom last night. Banged her left knee and hit her head, due to passing out in bathroom. Present for: overnight Home cares tried: came to same day clinic for evaluation Calling to request: appt The recommended disposition is See a health care provider within 4 hours. Reason for Disposition [1] Age over 64 years AND [2] swelling or bruise Protocols used: Head Cgjfbv-UFXJV-VD Care Advice Patient/Caregiver understands and will follow care advice?: Yes, able to teach back SEE HCP (OR PCP TRIAGE) WITHIN 4 HOURS: * IF OFFICE WILL BE OPEN: You need to be seen within the next 3 or 4 hours. Call your doctor (or MDS MANAGER/PA) now or as soon as the office opens. CALL BACK IF: * You become worse CARE ADVICE given per Head Injury (Adult) guideline. DBAND INSTALLER documented in this encounter Plan of Treatment Not on file documented as of this encounter Visit Diagnoses Not on filedocumented in this encounter Additional Health Concerns Assessment Noted Time PHQ-9 Depression Total Score: 1 06/02/19 18 9:34 AM BROADBAND INSTALLER documented as of this encounter Care Teams Driver Merchandiser Relationship Specialty Start Date End Date Tigre Preciado P.A.-C., P.A. PCP - General Family Medicine 10/11/19 documented as of this encounter
--- OUTSIDE RECORDS SUMMARY | 2023-05-21 16:11 | XMS_ITS | Encounter Summary ---
Author Name Unknown Organization [facility] Address [address] [place] [address] Care Team Providers Care Business Solutions Architect Name Role Phone Tigre Preciado P.A.-C., P.A. Primary Care Pr ovider Reason for Referral * Outpatient (Routine) - Authorized Specialty Diagnoses / Procedures Referred By Contac t Referred To Contact Obstetrics and Gynecology Diagnoses Cystocele Shanice Rico APRN, C.N.P., D.N.P. [address] [place] [phone] [facility] Referral ID Status Reason Start Date Expiration Date V isits Requested Visits Authorized [id number] Authorized 01/26/2023 01/26/2024 1 1 Scheduling Instructions Wants to coordinate with other appointments Reason for Visit * Outpatient (Routine) - Closed Specialty Diagnoses / Procedures Referred By Contac t Referred To Contact Gynecology Diagnoses Cystocele Urinary Tract Infection Site Not Specified Personal History Of Other Diseases Of Urinary System Postmenopausal Atrophic Vaginitis Kanchan Granda, C.N.P. [address] [place] [address] [facility] Referral ID Status Reason Start Date Expiration Date Visits Re quested Visits Authorized [id number] Closed 11/27/2022 11/27/2023 1 1 Encounter Details Date Type Department Care Team (Latest Contact Info) Description 01/26/2023 9:00 AM CDT Comprehensive Visit Department of Obstetrics and Gynecology, Division of Urogynecology in [place], [place] [address] [place] [address] Shanice Rico APRN, C.N.P., D.N.P. [address] [place] [address] Cystocele; Urinary Tract Infection Site Not Specified; [...] Answer Date Recorded PHQ-2 Score 0 06/26/2021 [facility] Occupat ional Health - Occupational [...] cc, Ultrasound post void residual: 43 cc Superintendent Sanitation: Nanda Loaiza's ASSESSMENT / PLAN #1 Anterior [...] mg to 1000 mg total daily dose ([id number]-[id number]-[id number]) or Vitamin C 1,000 mg daily or D-mannose, probiotics (hqlt-iow-pyqoqos) For those with Genitourinary syndrome of Menopause: [...] symptoms. Prescription for vaginal estrogen sent to [facility] pharmacy in [place], [place]. If symptoms are not improved with [...] Total Score: 1 06/02/19 18 9:34 AM MILLER SUPERVISOR documented as of this encounter Care Teams Business Solutions Architect Relationship Specialty Start Date End Date Tigre Preciado P.A.-C., P.A. PCP - General Family Medicine 10/11/19 documented as of this encounter
--- OUTSIDE RECORDS SUMMARY | 2023-05-21 16:11 | XMS_ITS | Encounter Summary ---
Author Name Unknown Organization [facility] Address [address] [place] [address] Care Team Providers Care Valve Technician Name Role Phone Tigre Preciado P.A.-C., P.A. Primary Care Pr ovider Reason for Visit * Outpatient (Routine) - Closed Specialty Diagnoses / Procedures Referred By Contac t Referred To Contact Diagnoses Injury Head Initial Procedures DX Knee Left 4+ Views DX Knee Left 3 Views Zoe Hope M.D., M.S. [address] [place] [phone] [facility] Region Referral ID Status Reason Start Date Expiration Date Visits Re quested Visits Authorized [id number] Closed 05/16/2023 05/15/2024 1 1 Encounter Details Date Type Department Care Team (Latest Contact Info) Description 05/16/2023 3:57 PM PERSONAL ASSISTANT - 05/16/2023 11:59 PM PERSONAL ASSISTANT Hospital Encounter Department of Radiology in [place], [place] [address] [place] [address] Zoe Hope M.D., M.S. [address] [place] [address] Injury Head Initial Discharge Disposition: Home or Self Care Social [...] Answer Date Recorded PHQ-2 Score 0 06/26/2021 [facility] of Occupat ional Health - [...] pain or cramps). 180 capsule 3 10/31/2020 estrogens, conjugated, (Premarin) 1 g (0.625 mg/gram) vaginal cream Insert 1 g into the vagina 3 (three) times a week. At bedtime. May apply with applicator or fingertip 30 g 8 02/05/2023 02/05/2024 LACTOBACILLUS ACIDOPHILUS (ACIDOPHILUS ORAL) Take by mouth daily. 0 10/05/2012 magnesium 200 mg tablet Take 400 mg by mouth daily. 0 montelukast (SINGULAIR) 10 mg tablet Take 1 tablet (10 mg total) by mouth at bedtime. 90 tablet 3 10/07/2022 10/07/2023 multivitamin tablet Take 1 tablet by mouth daily. 0 06/28/2009 nystatin (MYCOSTATIN) 100,000 unit/mL suspension Take 5 mL (500,000 Units total) by mouth 4 (four) times a day. Swish in mouth and swallow 280 mL 0 07/02/2021 SUMAtriptan (IMITREX) 25 mg tablet TAKE 1 TABLET BY MOUTH NEEDED FOR MIGRAINE. MAY REPEAT DOSE ONCE IN 2 HOURS IF MIGRAINE UNRESOLVED. 9 tablet 5 07/31/2022 vitamin A,C,R-wqrizw-hjcvelmp (OCUVITE W/LUTEIN) 1,000 Unit-200 mg-60 Unit-2 mg tablet Take 1 tablet by mouth as needed. 0 azithromycin (ZITHROMAX) 250 mg tablet Take 1 tablet by mouth as directed. BRONCHITIS 0 08/11/2022 Paxlovid 300 mg (150 mg x 2)-100 mg dose pack Take 3 tablets by mouth 2 (two) times a day. 0 05/10/2023 zoledronic nwkm-tgniijeA-uyplv (RECLAST) 5 mg/100 mL piggyback Infuse 5 mg into a venous catheter once. Once yearly- last dose 06/10/22 0 documented as of this encounter Plan of Treatment Not on file documented as of this encounter Procedures Procedure Name Priority Date/Time Associated Diagnosis Comments DX KNEE LEFT 4+ VIEWS RAD - Semiurgent (Fast; most ED patients; some inpatients) 05/16/2023 4:34 PM PERSONAL ASSISTANT Injury Head Initial documented in this encounter Results * DX Knee Left 4+ Views (05/16/2023 4:34 PM PERSONAL ASSISTANT) Anatomical Region Laterality Modality Lower Extremity, Knee, Muscu loskeletal RST LOS, Musculoskeletal ARZ LOS, Muskuloskeletal FLA LOS Left Digit al Radiography Impressions 05/16/2023 4:38 PM PERSONAL ASSISTANT Approximately 14.2 x 3.3 cm region of consolidation along the medial left knee, suggestive of hemorrhage, possibly due to medial collateral ligament damage. Narrative 05/16/2023 4:38 PM PERSONAL ASSISTANT EXAM: DX KNEE LEFT 4+ VIEWS COMPARISON: [...] M.D., M.S. IMG DIAGNOSTIC IMAG ING PROCEDURES documented in this encounter Visit Diagnoses Diagnosis Injury Head Initial documented in this encounter Additional Health Concerns Assessment Noted Time PHQ-9 Depression Total Score: 1 06/02/19 18 9:34 AM PERSONAL ASSISTANT documented as of this encounter Care Teams Valve Technician Relationship Specialty Start Date End Date Tigre Preciado P.A.-C., P.A. PCP - General Family Medicine 10/11/19 documented as of this encounter
--- OUTSIDE RECORDS SUMMARY | 2023-05-21 16:11 | XMS_ITS | Encounter Summary ---
Author Name Unknown Organization [facility] Address [address] [place] [address] Care Team Providers Care Superior Court Justice Name Role Phone Tigre Preciado P.A.-C., P.A. Primary Care Pr ovider Reason for Visit * Reason Onset Date Comments Communication 02/03/2023 Encounter Details Date Type Department Care Team (Latest Contact Info) Description 02/03/2023 Clinical Communication Department of Obstetrics and Gynecology, Division of Urogynecology in [place], [place] [address] [place] [phone] Shanice Rico, ORION, C.N.P., D.N.P. [address] [place] [phone] Communication Social History Tobacco Use Types Packs/Day [...] Answer Date Recorded PHQ-2 Score 0 06/26/2021 [facility] of Occupat ional Health - Occupational Stress [...] prescription to Premarin cream andsent it to [facility] in [place], [place]. * Telephone Encounter - Em Almazan [...] Total Score: 1 06/02/19 18 9:34 AM MANAGER EXPORT documented as of this encounter Care Teams Superior Court Justice Relationship Specialty Start Date End Date Tigre Preciado P.A.-C., P.A. PCP - General Family Medicine 10/11/19 documented as of this encounter
--- OUTSIDE RECORDS SUMMARY | 2023-05-21 16:11 | XMS_ITS ---
Author Name Unknown Organization [facility] Address [address] [place] [address] Care Team Providers Care Eligibility Consultant Name Role Phone Unavailable Unavailable Unavailable Surgery Details Not on file Complications Check Surgery Details section. Procedure Estimated Blood Loss Check Surgery Details section. Procedure Findings Check Surgery Details section. Procedure Specimens Taken Check Surgery Details section.
--- OUTSIDE RECORDS SUMMARY | 2023-05-21 16:11 | XMS_ITS | Encounter Summary ---
Author Name Unknown Organization [facility] Address [address] [place] [address] Care Team Providers Care Mercury Cell Cleaner Name Role Phone Tigre Preciado P.A.-C., P.A. Primary Care Pr ovider Encounter Details Date Type Department Care Team (Late st Contact Info) Description 02/05/2023 Orders Only Department of Obstetrics and Gynecology, Division of Urogynecology in [place], [place] [address] [place] [phone] Shanice Rico APRN, C.N.P., D.N.P. [address] [place] [phone] Social History Tobacco Use Types Packs/Day Years [...] Date Recorded PHQ-2 Score 0 06/26/2021 [facility] [place] of Occupat ional Health - Occupational Stress [...] Total Score: 1 06/02/19 18 9:34 AM GLASS LATHE OPERATOR documented as of this encounter Care Teams Mercury Cell Cleaner Relationship Specialty Start Date End Date Tigre Preciado P.A.-C., P.A. PCP - General Family Medicine 10/11/19 documented as of this encounter
--- OUTSIDE RECORDS SUMMARY | 2023-05-21 16:11 | XMS_ITS | Encounter Summary ---
Author Name Unknown Organization [facility] Address [address] [place] [address] Care Team Providers Care Ship Carpenter Name Role Phone Tigre Preciado P.A.-C., P.A. Primary Care Pr ovider Reason for Referral * MRI/CAT/PET Scan (Routine) - Closed Specialty Diagnoses / Procedures Referred By Treva field Referred To Contact Radiology Diagnoses Injury Head Initial Procedures CT Head without IV Contrast Zoe Hope M.D., M.S. [address] [place] [phone] [facility] Region Referral ID Status Reason Start Date Expiration Date Visits Re quested Visits Authorized [id number] Closed 05/16/2023 05/15/2024 1 1 MATIC CASTING MACHINE OPERATOR Reason for Visit * MRI/CAT/PET Scan (Routine) - Closed Specialty Diagnoses / Procedures Referred By Treva field Referred To Contact Radiology Diagnoses Injury Head Initial Procedures CT Head without IV Contrast Zoe Hope M.D., M.S. [address] [place] [phone] [facility] Region Referral ID Status Reason Start Date Expiration Date Visits Re quested Visits Authorized [id number] Closed 05/16/2023 05/15/2024 1 1 Encounter Details Date Type Department Care Team (Latest Contact Info) Description 05/16/2023 3:56 PM AUTOMATIC CASTING MACHINE OPERATOR Hospital Encounter Department of Radiology in [place], [place] [address] [place] [address] Zoe Hope M.D., M.S. [address] [place] [address] Injury Head Initial Discharge Disposition: [...] Answer Date Recorded PHQ-2 Score 0 06/26/2021 [facility] of Occupat ional Health - [...] MIGRAINE UNRESOLVED. 9 tablet 5 07/31/2022 vitamin A,C,D-ylanno-dtngdnsf (OCUVITE W/LUTEIN) 1,000 Unit-200 mg-60 Unit-2 mg tablet Take 1 tablet by mouth as needed. 0 azithromycin (ZITHROMAX) 250 mg tablet Take 1 tablet by mouth as directed. BRONCHITIS 0 08/11/2022 Paxlovid 300 mg (150 mg x 2)-100 mg dose pack Take 3 tablets by mouth 2 (two) times a day. 0 05/10/2023 zoledronic xsos-szxgbsxV-srfpe (RECLAST) 5 mg/100 mL piggyback Infuse 5 mg into a venous catheter once. Once yearly- last dose 06/10/22 0 documented as of this encounter Plan of Treatment Not on file documented as of this encounter Procedures Procedure Name Priority Date/Time Associated Diagnosis Comments CT HEAD WITHOUT IV CONTRAST RAD - Semiurgent (Fast; most ED patients; some inpatients) 05/16/2023 4:29 PM AUTOMATIC CASTING MACHINE OPERATOR Injury Head Initial documented in this encounter Results * CT Head without IV Contrast (05/16/2023 4:29 PM AUTOMATIC CASTING MACHINE OPERATOR) Anatomical Region Laterality Modality Head, Neuroradiology RST LOS , Neuroradiology ARZ LOS, Neuroradiology FLA LOS N/A Computed Tomography 05/16/2023 4:26 PM AUTOMATIC CASTING MACHINE OPERATOR Impressions 05/16/2023 4:55 PM AUTOMATIC CASTING MACHINE OPERATOR Cerebral atrophy and small vessel ischemic disease. Otherwise normal CT of the head without contrast. Narrative 05/16/2023 4:55 PM AUTOMATIC CASTING MACHINE OPERATOR EXAM: CT HEAD WITHOUT IV CONTRAST COMPARISON: [...] Zoe Hope M.D., M.S. IMG CT PROCEDURES documented in this encounter Visit Diagnoses Diagnosis Injury Head Initial documented in this encounter Additional Health Concerns Assessment Noted Time PHQ-9 Depression Total Score: 1 06/02/19 18 9:34 AM AUTOMATIC CASTING MACHINE OPERATOR documented as of this encounter Care Teams Ship Carpenter Relationship Specialty Start Date End Date Tigre Preciado P.A.-C., P.A. PCP - General Family Medicine 10/11/19 documented as of this encounter
--- OUTSIDE RECORDS SUMMARY | 2023-05-21 16:11 | XMS_ITS | Encounter Summary ---
Author Name Unknown Organization [facility] Address [address] [place] [address] Care Team Providers Care Waste Treatment Operator Name Role Phone Tigre Preciado P.A.-C., P.A. Primary Care Pr ovider Encounter Details Date Type Department Care Team (Late st Contact Info) Description 11/25/2022 Clinical Communication Department of Family Medicine, [facility], in [place], [place] [address] [place] [address] Tigre Preciado P.A.-C., P.A. [address] [place] [address] Social History Tobacco Use Types [...] Answer Date Recorded PHQ-2 Score 0 06/26/2021 [facility] [place] of Occupat ional Health - Occupational Stress [...] Total Score: 1 06/02/19 18 9:34 AM LABORATORY SECRETARY documented as of this encounter Care Teams Waste Treatment Operator Relationship Specialty Start Date End Date Tigre Preciado P.A.-C., P.A. PCP - General Family Medicine 10/11/19 documented as of this encounter
--- OUTSIDE RECORDS SUMMARY | 2023-05-21 16:11 | XMS_ITS | Encounter Summary ---
Author Name Unknown Organization [facility] Address [address] [place] [address] Care Team Providers Care Exhaust Emissions Automotive Technician Name Role Phone Tigre Preciado P.A.-C., P.A. Primary Care Pr ovider Encounter Details Date Type Department Care Team (Late st Contact Info) Description 05/16/2023 Clinical Communication Department of Orthopedic Surgery in [place], [place] [address] [place] [phone] Sebastián Esteban M.D. [address] [place] [address] Social History Tobacco Use Types Packs/Day Years [...] Answer Date Recorded PHQ-2 Score 0 06/26/2021 [facility] [place] of Occupat ional Health - Occupational Stress [...] encounter Miscellaneous Notes * Telephone Encounter - Sebastián Esteban M.D. - 05/16/2023 4:54 PM SENIOR PYTHON DEVELOPER I was called by primary care in regards to Mrs. Back. Last night, she fell her while walking landing on her knee. She had some vague knee pain but things worsened overnight and this morning her painwas quite severe and she had a large bruise and swelling most notably in the medial aspect of her knee. She went into the urgent care for evaluation and x-rays were taken which were negative for any fractures or avulsion injuries but she does have a large probable hematoma adjacent to her knee. Theswelling and mass were not present yesterday prior to the fall. She was able to bear weight on her lower extremity but range of motion is limited due to swelling and discomfort. I discussed with the provider that they should encourage a compressive wrap. And that she should beable to weightbear as tolerated. If she continues to have symptoms after the swelling has improved in a few weeks, she should be seen by her primary care provider for further follow up. OR PYTHON DEVELOPER documented in this encounter Plan of Treatment Not on file documented as of this encounter Visit Diagnoses Not on filedocumented in this encounter Additional Health Concerns Assessment Noted Time PHQ-9 Depression Total Score: 1 06/02/19 18 9:34 AM SENIOR PYTHON DEVELOPER documented as of this encounter Care Teams Exhaust Emissions Automotive Technician Relationship Specialty Start Date End Date Tigre Preciado P.A.-C., P.A. PCP - General Family Medicine 10/11/19 documented as of this encounter
--- OUTSIDE RECORDS SUMMARY | 2023-05-21 16:11 | XMS_ITS | Encounter Summary ---
Author Name Unknown Organization [facility] Address [address] [place] [address] Care Team Providers Care Mine Safety Director Name Role Phone Tigre Preciado P.A.-C., P.A. Primary Care Pr ovider Encounter Details Date Type Department Care Team (Late st Contact Info) Description 02/15/2023 Clinical Communication Department of Obstetrics and Gynecology in [place], [place] [address] [place] [phone] Em Almazan, R.N. [address] [place] [phone] Social History Tobacco Use Types Packs/Day Years [...] Answer Date Recorded PHQ-2 Score 0 06/26/2021 [facility] [place] of Occupat ional Health - Occupational Stress [...] Total Score: 1 06/02/19 18 9:34 AM ZONE MANAGER documented as of this encounter Care Teams Mine Safety Director Relationship Specialty Start Date End Date Tigre Preciado P.A.-C. P.AElda PCP - General Family Medicine 10/11/19 documented as of this encounter
--- OUTSIDE RECORDS SUMMARY | 2023-05-21 16:11 | XMS_ITS | Encounter Summary ---
Author Name Unknown Organization [facility] Address [address] [place] [address] Care Team Providers Care Hydrologist Name Role Phone Tigre Preciado P.A.-C., P.A. Primary Care Pr ovider Reason for Referral * Outpatient (Routine) - Authorized Specialty Diagnoses / Procedures Referred By Contac t Referred To Contact Diagnoses Injury Head Initial Procedures ECG 12 Lead Zoe Hope M.D., M.S. [address] [place] [address] [facility] Region Referral ID Status Reason Start Date Expiration Date V isits Requested Visits Authorized [id number] Authorized 05/16/2023 05/15/2024 1 1 N SERVICES MANAGER * MRI/CAT/PET Scan (Routine) - Closed Specialty Diagnoses / Procedures Referred By Contac t Referred To Contact Radiology Diagnoses Injury Head Initial Procedures CT Head without IV Contrast Zoe Hope M.D., M.S. [address] [place] [address] [facility] Region Referral ID Status Reason Start Date Expiration Date Visits Re quested Visits Authorized [id number] Closed 05/16/2023 05/15/2024 1 1 N SERVICES MANAGER Reason for Visit * Reason Comments Head Injury Knee Injury * Appointment Request (Routine) - Closed Specialty Diagnoses / Procedures Referred By Treva field Referred To Contact Family Medicine Referral ID Status Reason Start Date Expiration Date Visits Re quested Visits Authorized [id number] Closed 05/16/2023 05/15/2024 1 1 Encounter Details Date Type Department Care Team (Late st Contact Info) Description 05/16/2023 3:00 PM HUMAN SERVICES MANAGER Office Visit Department of Family Medicine, [facility], in [place], [place] [address] [place] [address] Zoe Hope M.D., M.S. [address] [place] [phone] Injury Head Initial (Primary Dx); History Of Falling Social History Tobacco Use Types Packs/Day Years [...] Answer Date Recorded PHQ-2 Score 0 06/26/2021 [facility] [place] of Occupat ional Health - Occupational Stress [...] Comments Blood Pressure 150/89 05/16/2023 2:41 PM HUMAN SERVICES MANAGER Pulse 111 05/16/2023 2:41 PM HUMAN SERVICES MANAGER Temperature 37.5 ??C (99.5 ??F) 05/16/2023 2:41 PM CS T Respiratory Rate - - Oxygen Saturation - - Inhaled Oxygen Concentration - - Weight 56.7 kg (125 lb) 05/16/2023 2:41 PM HUMAN SERVICES MANAGER Height - - Body Mass Index 22.07 05/26/2022 9:30 AM HUMAN SERVICES MANAGER documented in this encounter Patient Instructions * Patient Instructions* Zoe Hope M.D., M.S. - 05/16/2023 3:00 PM HUMAN SERVICES MANAGER -recommend considering TTE or holter to rule out ardiac etiology given syncopal episode. N SERVICES MANAGER documented in this encounter Progress Notes * Zoe Hope M.D., M.S. - 05/16/2023 3:00 PM CST SUBJECTIVE CHIEF COMPLAINT / REASON FOR VISIT Chief Complaint Patient presents with Head Injury Knee Injury HISTORY OF PRESENT ILLNESS #1 Injury Head Initial #2 History Of Falling Isadora Back is a 78 y.o. female who presents for evaluation of fall. Patient states she experienced a fall last night. She is unable to recall the exact events of the fall but recalls feeling lightheaded and seeing black tunnel prior to falling. She was found by her who states her left side of the body was in the bathtub and the other side wasn't. She feels she may have hit her head as she immediately noticed pain in the right frontal portion as well as bruising. She also noticed swelling and ecchymosis on her left knee as well as pain and has now been utilizing a cane. She does not use any gait devices at baseline. Patient mentions she had COVID last week and was treated with a course of Paxlovid. States she had been feeling better but not completely back to her baseline. She does also mention history of recurrent UTIs which typically present as weakness and nausea. She denies any current urinary symptoms. Also denies any chest pain, shortness of breath, nausea, vomiting or diarrhea. OBJECTIVE PHYSICAL EXAM BP 150/89 (BP Location: Right arm, Patient Position: Sitting, Cuff Size: Regular) Pulse (!) 111 Temp 37.5 ??C (Temporal) Wt 56.7 kg LMP (LMP Unknown) BMI 22.07 kg/m?? GENERAL APPEARANCE: Well-appearing, alert, in no acute distress. HEAD: Presence of ecchymosis right frontal scalp with tenderness to palpation. HEENT: Hearing grossly intact. No noted visual disturbances. HEART: RRR with normal S1, S2 without murmur. LUNGS: Clear to auscultation bilaterally. No wheezes or crackles ABDOMEN: Soft, nontender, nondistended. Normoactive bowel sounds. EXTREMITIES: Warm and well perfused. Left knee with presence diffuse swelling, ecchymosis present in the medial portion of the anterior knee, diffuse tenderness anterior portion of knee. NEURO: CN 2-12 intact, strength 4/5 left lower extremity due to knee pain, sensation to light touchintact. ASSESSMENT / PLAN #1 Injury Head Initial #2 History Of Falling Differential diagnosis for fall is broad, could consider infection such as UTI or ongoing COVID, electrolyte derangements, arrhythmia, anemia. Will proceed with urine labs as well as CBC, ferritin, BMP, Mag, phos. Given head injury will also proceed with CT head to rule out any bleed as well as x-ray of the knee given swelling and ecchymosis. Knee pain is most likely from impact of injury and fracture is less likely. Recommended utilizing Alen wrap, as well as ice and either NSAIDs or Tylenol. Also proceeded with EKG, would recommend patient complete either TTE or Holter monitor in the outpatient setting with PCP(she has an appointment with her PCP at [place] tomorrow, recommendations were printed out for patient). Discussed reasons to seek emergent treatment. Knee xray reveals, approximately 14.2 x 3.3 cm region of consolidation along the medial left knee, suggestive of hemorrhage, possibly due to medial collateral ligament damage. Discussed with orthopedics hospital on-call team who recommend knee compression with hinged brace to help decrease amount of swelling and further follow-up in the outpatient setting with primary team. CT head is negative for acute intracranial hemorrhage. - CBC with Differential, Blood; Future; Expected date: 05/16/2023 - Ferritin; Future; Expected date: 05/16/2023 - Magnesium; Future; Expected date: 05/16/2023 - Phosphorus Inorganic; Future; Expected date: 05/16/2023 - Urinalysis with Microscopic: Urine, Midstream; Future; Expected date: 05/16/2023 - Bacterial Culture, Aerobic + Susceptibility, Urine; Future; Expected date: 05/16/2023 - DX Knee Left 3 Views; Future; Expected date: 05/16/2023 - CT Head without IV Contrast; Future; Expected date: 05/16/2023 - ECG 12 Lead; Future; Expected date: 05/16/2023 - ECG 12 Lead - Bacterial Culture, Aerobic + Susceptibility, Urine - Urinalysis with Microscopic: Urine, Midstream - Phosphorus Inorganic - Magnesium - CBC with Differential, Blood - Ferritin - Basic Metabolic Panel; Future; Expected date: 05/16/2023 No orders of the defined types were placed in this encounter. PATIENT EDUCATION Ready to learn, no apparent learning barriers were identified; learning preferences include listening. Explained diagnosis and treatment plan; patient/child/caregiver expressed understanding of the content. Josesito Hope M.D., M.S. N SERVICES MANAGER documented in this encounter Plan of Treatment Not on file documented as of this encounter Procedures Procedure Name Priority Date/Time Associated Diagnosis Comments BACTERIAL CULTURE, AEROBIC + SUSC, URINE Routine 05/16/2023 4:06 PM HUMAN SERVICES MANAGER Injury Head Initial URINALYSIS WITH MICROSCOPIC Routine 05/16/2023 4:06 PM HUMAN SERVICES MANAGER Injury Head Initial CBC WITH DIFFERENTIAL, B Routine 05/16/2023 4:05 PM HUMAN SERVICES MANAGER Injury Head Initial PHOSPHORUS (INORGANIC), S Routine 05/16/2023 4:05 PM HUMAN SERVICES MANAGER Injury Head Initial MAGNESIUM, S Routine 05/16/2023 4:05 PM HUMAN SERVICES MANAGER Injury Head Initial ECG Routine 05/16/2023 3:50 PM HUMAN SERVICES MANAGER Injury Head Initial BASIC METABOLIC PANEL, S/P Routine 05/16/2023 3:35 PM HUMAN SERVICES MANAGER Injury Head Initial FERRITIN, S Routine 05/16/2023 1:35 PM HUMAN SERVICES MANAGER Injury Head Initial documented in this encounter Results * CT Head without IV Contrast (05/16/2023 4:29 PM HUMAN SERVICES MANAGER) Anatomical Region Laterality Modality Head, Neuroradiology RST LOS , Neuroradiology ARZ LOS, Neuroradiology FLA LOS N/A Computed Tomography 05/16/2023 4:26 PM HUMAN SERVICES MANAGER Impressions 05/16/2023 4:55 PM HUMAN SERVICES MANAGER Cerebral atrophy and small vessel ischemic disease. Otherwise normal CT of the head without contrast. Narrative 05/16/2023 4:55 PM HUMAN SERVICES MANAGER EXAM: CT HEAD WITHOUT IV CONTRAST COMPARISON: [...] Aerobic + Susceptibility, Urine (05/16/2023 4:06 PM HUMAN SERVICES MANAGER) Pathologist [facility] Urine Culture No growth after 1 day of incubation. 05/18/2023 8:29 AM HUMAN SERVICES MANAGER [facility] Urine (Urine, Midstream) 05/16/2023 4:06 PM HUMAN SERVICES MANAGER 05/17/2023 1:48 PM HUMAN SERVICES MANAGER Comment:Specimen Source Site : Urine Zoe Hope M.D., M.S. LAB MICROBIOLOGY - GENERAL ORDERABLES [facility] [address] [place] [address], [facility] in [place] [address] [place] [address] * Urinalysis with Microscopic: Urine, Midstream (05/16/2023 4:06 PM HUMAN SERVICES MANAGER) Source Urine, Urine, Midstream 05/16/2023 4:45 PM HUMAN SERVICES MANAGER OWAT Clarity Clear Clear 05/16/2023 4:47 PM HUMAN SERVICES MANAGER OWAT Color Yellow 05/16/2023 4:45 PM HUMAN SERVICES MANAGER OWAT Comment: ----REFERENCE VALUE---- Colorless Yellow [place] Blood Negative Negative 05/16/2023 4:45 PM HUMAN SERVICES MANAGER OWAT Nitrite Negative Negative 05/16/2023 4:45 PM HUMAN SERVICES MANAGER OWAT Leukocyte Esterase Negative Negative 05/16/2023 4:45 PM HUMAN SERVICES MANAGER OWAT Protein Negative mg/dL 05/16/2023 4:45 PM HUMAN SERVICES MANAGER OWAT Comment: ----REFERENCE VALUE---- Negative Trace Glucose Negative Negative mg/dL 05/16/2023 4:45 PM HUMAN SERVICES MANAGER OWAT Ketone Negative Negative mg/dL 05/16/2023 4:45 PM HUMAN SERVICES MANAGER OWAT Bilirubin Negative Negative 05/16/2023 4:45 PM HUMAN SERVICES MANAGER OWAT pH 5.5 5.0 - 8.0 05/16/2023 4:45 PM HUMAN SERVICES MANAGER OWAT Specific [place] 1.005 1.001 - 1.035 05/16/2023 4:45 PM HUMAN SERVICES MANAGER OWAT Urobilinogen 0.2 0.2 - 1.0 mg/dL 05/16/2023 4:45 PM HUMAN SERVICES MANAGER OWAT White Blood Cells None Seen /hpf 05/16/2023 4:47 PM HUMAN SERVICES MANAGER OWAT Comment: ----REFERENCE VALUE---- Males: 0-3 Females: 0-10 Unknown: 0-10 Red Blood Cells None Seen 0 - 2 /hpf 4:47 PM HUMAN SERVICES MANAGER OWAT Hyaline Casts 1-3 /lpf 05/16/2023 4:47 PM HUMAN SERVICES MANAGER OWAT Urine (Urine, Midstream) 05/16/2023 4:06 PM HUMAN SERVICES MANAGER 05/16/2023 4:41 PM HUMAN SERVICES MANAGER Zoe Hope M.D., M.S. LAB URINE ORDERABLE S [facility] [address] [address], [facility] in [place] [address] [place] [address] * Phosphorus Inorganic (05/16/2023 4:05 PM HUMAN SERVICES MANAGER) Phosphorus (Inorganic), P 3.7 2.5 - 4.5 mg/dL 05/17/2023 3:17 PM HUMAN SERVICES MANAGER A[place] Blood (Blood, Venous) 05/16/2023 4:05 PM HUMAN SERVICES MANAGER 05/17/2023 3:02 PM HUMAN SERVICES MANAGER Zoe Hope M.D., M.S. LAB BLOOD ADD-ON Performing Organization Address City/[facility]/ZIP Co de Phone Number [facility] [address] [place] [address], [place] A[place] [facility] [address] [place] [address] * Magnesium (05/16/2023 4:05 PM HUMAN SERVICES MANAGER) Magnesium, P 2.3 1.7 - 2.3 mg/dL 05/16/2023 4:17 PM HUMAN SERVICES MANAGER OWAT Blood (Blood, Venous) 05/16/2023 4:05 PM HUMAN SERVICES MANAGER 05/16/2023 4:05 PM HUMAN SERVICES MANAGER Zoe Hope M.D. MEldaS. LAB BLOOD ADD-ON Performing Organization Address City/[facility] Co de Phone Number [facility] [address] [place] [address], [facility] in [place] [address] [place] [address] * (ABNORMAL) CBC with Differential, Blood (05/16/2023 4:05 PM HUMAN SERVICES MANAGER) Pathologist [facility] Hemoglobin 13.3 11.6 - 15.0 g/dL 05/16/2023 4:09 PM HUMAN SERVICES MANAGER OWAT Hematocrit 39.5 35.5 - 44.9 % 05/16/2023 4:09 PM HUMAN SERVICES MANAGER OWAT Erythrocytes 4.28 3.92 - 5.13 x10(12)/L 05/16/2023 4:09 PM HUMAN SERVICES MANAGER OWAT MCV 92.3 78.2 - 97.9 fL 05/16/2023 4:09 PM HUMAN SERVICES MANAGER OWAT RBC Distrib Width 12.2 12.2 - 16.1 % 05/16/2023 4:09 PM HUMAN SERVICES MANAGER OWAT Platelet Count 433(H) 157 - 371 x10(9)/L 05/16/2023 4:09 PM HUMAN SERVICES MANAGER OWAT Leukocytes 10.2(H) 3.4 - 9.6 x10(9)/L 05/16/2023 4:09 PM HUMAN SERVICES MANAGER OWAT Neutrophils 6.87(H) 1.56 - 6.45 x10(9)/L 05/16/2023 4:09 PM HUMAN SERVICES MANAGER OWAT Lymphocytes 2.46 0.95 - 3.07 x10(9)/L 05/16/2023 4:09 PM HUMAN SERVICES MANAGER OWAT Monocytes 0.70 0.26 - 0.81 x10(9)/L 05/16/2023 4:09 PM HUMAN SERVICES MANAGER OWAT Eosinophils 0.07 0.03 - 0.48 x10(9)/L 05/16/2023 4:09 PM HUMAN SERVICES MANAGER OWAT Basophils 0.05 0.01 - 0.08 x10(9)/L 05/16/2023 4:09 PM HUMAN SERVICES MANAGER OWAT Blood (Blood, Venous) 05/16/2023 4:05 PM HUMAN SERVICES MANAGER 05/16/2023 4:05 PM HUMAN SERVICES MANAGER Zoe Hope M.D., M.S. LAB BLOOD ADD-ON [facility] [address] [place] [address], [facility] in [place] [address] [place] [address] * ECG 12 Lead (05/16/2023 3:50 PM HUMAN SERVICES MANAGER) Ventricular Rate ECG/Min 92 BPM MUSE MD Interval 148 ms MUSE QRSD Interval 80 ms MUSE QT Interval 356 ms MUSE QTC Interval 440 ms MUSE P [place] 70 degrees MUSE R [place] 55 degrees MUSE T Wave [place] 36 degrees MUSE 05/16/2023 3:50 PM HUMAN SERVICES MANAGER 05/16/2023 4:23 PM HUMAN SERVICES MANAGER Impressions MUSE - 05/16/2023 4:23 PM HUMAN SERVICES MANAGER Normal sinus rhythm Normal ECG When compared [...] (ABNORMAL) Basic Metabolic Panel (05/16/2023 3:35 PM HUMAN SERVICES MANAGER) Potassium, P 4.3 3.6 - 5.2 mmol/L 05/16/2023 4:40 PM HUMAN SERVICES MANAGER OWAT Sodium, P 134(L) 135 - 145 mmol/L 05/16/2023 4:40 PM HUMAN SERVICES MANAGER OWAT Chloride, P 97(L) 98 - 107 mmol/L 05/16/2023 4:40 PM HUMAN SERVICES MANAGER OWAT Bicarbonate, P 24 22 - 29 mmol/L 05/16/2023 4:40 PM HUMAN SERVICES MANAGER OWAT Anion Gap, P 13 7 - 15 05/16/2023 4:40 PM HUMAN SERVICES MANAGER OWAT BUN (Blood Urea Nitrogen), P 16 6 - 21 mg/dL 05/16/2023 4:40 PM HUMAN SERVICES MANAGER OWAT Creatinine 0.81 0.59 - 1.04 mg/dL 05/16/2023 4:40 PM HUMAN SERVICES MANAGER OWAT Estimated GFR (eGFR) 75 >=60 mL/min/BSA 05/16/2023 4:40 PM HUMAN SERVICES MANAGER OWAT Comment: Estimated GFR calculated using the 2020 CKD_EPI creatinine equation. Calcium, Total, P 9.8 8.8 - 10.2 mg/dL 05/16/2023 4:40 PM HUMAN SERVICES MANAGER OWAT Glucose, P 102 70 - 140 mg/dL 05/16/2023 4:40 PM HUMAN SERVICES MANAGER OWAT Blood (Blood, Venous) 05/16/2023 3:35 PM HUMAN SERVICES MANAGER 05/16/2023 4:22 PM HUMAN SERVICES MANAGER Zoe Hope M.D., M.S. LAB BLOOD ADD-ON [facility] [address] [place] [address], [place] OWAT [facility] in [place] [address] [place] [address] * Ferritin (05/16/2023 1:35 PM HUMAN SERVICES MANAGER) Ferritin, S 192 11 - 328 mcg/L 05/17/2023 9:14 AM HUMAN SERVICES MANAGER OWAT Comment: Biotin has been identified by the dividing machine operator as a potential interfering substance. Higher concentrations of biotin may be found in multivitamins, hair/nail supplements, and workout supplements. If the result does not match clinical observations, repeat testing after patient refrains from the use of supplements for at least 12 hours. Blood (Blood, Venous) 05/16/2023 1:35 PM HUMAN SERVICES MANAGER 05/16/2023 4:07 PM HUMAN SERVICES MANAGER Zoe Hope M.D., M.S. LAB BLOOD ADD-ON [facility] [address], [place] [address], [facility] in [place] [address], [place] [address] documented in this encounter Visit Diagnoses Diagnosis Injury Head Initial- Primary History Of Falling Injury Head Initial documented in this encounter Additional Health Concerns Assessment Noted Time PHQ-9 Depression Total Score: 1 06/02/19 18 9:34 AM HUMAN SERVICES MANAGER documented as of this encounter Care Teams Hydrologist Relationship Specialty Start Date End Date Tigre Preciado P.A.-C., P.A. PCP - General Family Medicine 10/11/19 documented as of this encounter
--- OUTSIDE RECORDS SUMMARY | 2023-05-21 16:11 | XMS_ITS | Encounter Summary ---
Author Name Unknown Organization [facility] Address [address] [place] [address] Care Team Providers Care Excellence Coach Name Role Phone Tigre Preciado P.A.-C., P.A. Primary Care Pr ovider Encounter Details Date Type Department Care Team (Late st Contact Info) Description 02/04/2023 Orders Only Department of Obstetrics and Gynecology, Division of Urogynecology in [place], [place] [address] [place] [phone] Shanice Rico APRN, C.N.P., D.N.P. [address] [place] [phone] Social History Tobacco Use Types Packs/Day Years [...] Answer Date Recorded PHQ-2 Score 0 06/26/2021 [facility] [place] of Occupat ional Health - Occupational Stress [...] Total Score: 1 06/02/19 18 9:34 AM APPOINTMENT CLERK documented as of this encounter Care Teams Excellence Coach Relationship Specialty Start Date End Date Tigre Preciado P.A.-C., P.A. PCP - General Family Medicine 10/11/19 documented as of this encounter
--- OUTSIDE RECORDS SUMMARY | 2023-05-21 16:11 | XMS_ITS | Referral Summary ---
Author Name Unknown Organization [facility] Address [address] [place] [address] Care Team Providers Care Kinder Teacher Name Role Phone Tigre Preciado P.A.-C., P.A. Primary Care Pr ovider Source Comments Patient records contain information from all sites at [facility]. For routine questions regarding patient records, call [phone] during business hours, M-F 8:00 AM - 5:00 PM Central Time. Record requests for emergency care only can be directed to [phone] at any time.[facility] Encounters Date Type Department Care Team Description 05/16/2023 Clinical Communication Department of Orthopedic Surgery in [place], [place] [address] [place] [phone] Sebastián Esteban M.D. 05/16/2023 3:57 PM ADULT NURSE PRACTITIONER - 05/16/2023 11:59 PM ADULT NURSE PRACTITIONER Hospital Encounter Department of Radiology in [place], [place] [address] [phone] Zoe Hope M.D., M.S. Injury Head Initial Discharge Disposition: Home or Self Care 05/16/2023 3:56 PM ADULT NURSE PRACTITIONER Hospital Encounter Department of Radiology in [place], [place] [address] [place] [phone] Zoe Hope M.D., M.S. Injury Head Initial Discharge Disposition: Home or Self Care 05/16/2023 3:00 PM ADULT NURSE PRACTITIONER Office Visit Department of Family Medicine, [facility], in [place], [place] [address] [phone] Zoe Hope M.D., M.S. Injury Head Initial (Primary Dx); History Of Falling 05/16/2023 Nurse Triage Department of Family Medicine, [facility], in [place], [place] [address] [place] [phone] Valerie Wadsworth R.N. Head Injury; Knee Injury from Last 3 Months Allergies Active Allergy [...] mg by mouth daily. 0 Active vitamin A,C,K-mglmop-xgipe als (OCUVITE W/LUTEIN) 1,000 Unit-200 mg-60 Unit-2 [...] wheezing. 8 g 3 07/02/2021 Active zoledronic eucp-yuettrkZ-wxwn r (RECLAST) 5 mg/100 mL piggyback Infuse [...] Last Assessment & Plan: Referral to [facility] was completed in faxed. 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 We also discussed management options with vaginal [...] Answer Date Recorded PHQ-2 Score 0 06/26/2021 [facility] [place] of Occupat ional Health - Occupational Stress [...] Comments Blood Pressure 150/89 05/16/2023 2:41 PM ADULT NURSE PRACTITIONER Pulse 111 05/16/2023 2:41 PM ADULT NURSE PRACTITIONER Temperature 37.5 ??C (99.5 ??F) 05/16/2023 2:41 PM CS T Respiratory Rate 16 08/15/2022 12:16 PM CDT Oxygen Saturation 99% 08/15/2022 12:16 PM CDT Inhaled Oxygen Concentration - - Weight 56.7 kg (125 lb) 05/16/2023 2:41 PM ADULT NURSE PRACTITIONER Height 160.3 cm (5' 3.11) 05/26/2022 9:30 AM CS T Body Mass Index 22.07 05/26/2022 9:30 AM ADULT NURSE PRACTITIONER Plan of Treatment Not on file Procedures Procedure Name Priority Date/Time Associated Diagnosis Comments DX KNEE LEFT 4+ VIEWS RAD - Semiurgent (Fast; most ED patients; some inpatients) 05/16/2023 4:34 PM ADULT NURSE PRACTITIONER Injury Head Initial CT HEAD WITHOUT IV CONTRAST RAD - Semiurgent (Fast; most ED patients; some inpatients) 05/16/2023 4:29 PM ADULT NURSE PRACTITIONER Injury Head Initial URINALYSIS WITH MICROSCOPIC Routine 05/16/2023 4:06 PM ADULT NURSE PRACTITIONER Injury Head Initial BACTERIAL CULTURE, AEROBIC + SUSC, URINE Routine 05/16/2023 4:06 PM ADULT NURSE PRACTITIONER Injury Head Initial CBC WITH DIFFERENTIAL, B Routine 05/16/2023 4:05 PM ADULT NURSE PRACTITIONER Injury Head Initial MAGNESIUM, S Routine 05/16/2023 4:05 PM ADULT NURSE PRACTITIONER Injury Head Initial PHOSPHORUS (INORGANIC), S Routine 05/16/2023 4:05 PM ADULT NURSE PRACTITIONER Injury Head Initial ECG Routine 05/16/2023 3:50 PM ADULT NURSE PRACTITIONER Injury Head Initial BASIC METABOLIC PANEL, S/P Routine 05/16/2023 3:35 PM ADULT NURSE PRACTITIONER Injury Head Initial FERRITIN, S Routine 05/16/2023 1:35 PM ADULT NURSE PRACTITIONER Injury Head Initial from Last 3 Months Results * DX Knee Left 4+ Views (05/16/2023 4:34 PM ADULT NURSE PRACTITIONER) Anatomical Region Laterality Modality Lower Extremity, Knee, Muscu loskeletal RST LOS, Musculoskeletal ARZ LOS, Muskuloskeletal FLA LOS Left Digit al Radiography Impressions 05/16/2023 4:38 PM ADULT NURSE PRACTITIONER Approximately 14.2 x 3.3 cm region of consolidation along the medial left knee, suggestive of hemorrhage, possibly due to medial collateral ligament damage. Narrative 05/16/2023 4:38 PM ADULT NURSE PRACTITIONER EXAM: DX KNEE LEFT 4+ VIEWS COMPARISON: [...] Head without IV Contrast (05/16/2023 4:29 PM ADULT NURSE PRACTITIONER) Anatomical Region Laterality Modality Head, Neuroradiology RST LOS , Neuroradiology ARZ LOS, Neuroradiology FLA LOS N/A Computed Tomography 05/16/2023 4:26 PM ADULT NURSE PRACTITIONER Impressions 05/16/2023 4:55 PM ADULT NURSE PRACTITIONER Cerebral atrophy and small vessel ischemic disease. Otherwise normal CT of the head without contrast. Narrative 05/16/2023 4:55 PM ADULT NURSE PRACTITIONER EXAM: CT HEAD WITHOUT IV CONTRAST COMPARISON: [...] Aerobic + Susceptibility, Urine (05/16/2023 4:06 PM ADULT NURSE PRACTITIONER) Urine Culture No growth after 1 day of incubation. 05/18/2023 8:29 AM ADULT NURSE PRACTITIONER TO Urine (Urine, Midstream) 05/16/2023 4:06 PM ADULT NURSE PRACTITIONER 05/17/2023 1:48 PM ADULT NURSE PRACTITIONER Comment:Specimen Source Site : Urine Zoe Hope M.D., M.S. LAB MICROBIOLOGY - GENERAL ORDERABLES [facility] [place] [address], [place] MKTO [facility] in [address] [address] * Urinalysis with Microscopic: Urine, Midstream (05/16/2023 4:06 PM ADULT NURSE PRACTITIONER) Source Urine, Urine, Midstream 05/16/2023 4:45 PM ADULT NURSE PRACTITIONER OWAT Clarity Clear Clear 05/16/2023 4:47 PM ADULT NURSE PRACTITIONER OWAT Color Yellow 05/16/2023 4:45 PM ADULT NURSE PRACTITIONER OWAT Comment: ----REFERENCE VALUE---- Colorless Yellow Ny Blood Negative Negative 05/16/2023 4:45 PM ADULT NURSE PRACTITIONER OWAT Nitrite Negative Negative 05/16/2023 4:45 PM ADULT NURSE PRACTITIONER OWAT Leukocyte Esterase Negative Negative 05/16/2023 4:45 PM ADULT NURSE PRACTITIONER OWAT Protein Negative mg/dL 05/16/2023 4:45 PM ADULT NURSE PRACTITIONER OWAT Comment: ----REFERENCE VALUE---- Negative Trace Glucose Negative Negative mg/dL 05/16/2023 4:45 PM ADULT NURSE PRACTITIONER OWAT Ketone Negative Negative mg/dL 05/16/2023 4:45 PM ADULT NURSE PRACTITIONER OWAT Bilirubin Negative Negative 05/16/2023 4:45 PM ADULT NURSE PRACTITIONER OWAT pH 5.5 5.0 - 8.0 05/16/2023 4:45 PM ADULT NURSE PRACTITIONER OWAT Specific Centre 1.005 1.001 - 1.035 05/16/2023 4:45 PM ADULT NURSE PRACTITIONER OWAT Urobilinogen 0.2 0.2 - 1.0 mg/dL 05/16/2023 4:45 PM ADULT NURSE PRACTITIONER OWAT White Blood Cells None Seen /hpf 05/16/2023 4:47 PM ADULT NURSE PRACTITIONER OWAT Comment: ----REFERENCE VALUE---- Males: 0-3 Females: 0-10 Unknown: 0-10 Red Blood Cells None Seen 0 - 2 /hpf 4:47 PM ADULT NURSE PRACTITIONER OWAT Hyaline Casts 1-3 /lpf 05/16/2023 4:47 PM ADULT NURSE PRACTITIONER OWAT Urine (Urine, Midstream) 05/16/2023 4:06 PM ADULT NURSE PRACTITIONER 05/16/2023 4:41 PM ADULT NURSE PRACTITIONER Zoe Hope M.D., M.S. LAB URINE ORDERABLE S [facility] [address] [place] [address], [facility] OWAT [facility] in [place] [address] [place] [address] * (ABNORMAL) CBC with Differential, Blood (05/16/2023 4:05 PM ADULT NURSE PRACTITIONER) Hemoglobin 13.3 11.6 - 15.0 g/dL 05/16/2023 4:09 PM ADULT NURSE PRACTITIONER OWAT Hematocrit 39.5 35.5 - 44.9 % 05/16/2023 4:09 PM ADULT NURSE PRACTITIONER OWAT Erythrocytes 4.28 3.92 - 5.13 x10(12)/L 05/16/2023 4:09 PM ADULT NURSE PRACTITIONER OWAT MCV 92.3 78.2 - 97.9 fL 05/16/2023 4:09 PM ADULT NURSE PRACTITIONER OWAT RBC Distrib Width 12.2 12.2 - 16.1 % 05/16/2023 4:09 PM ADULT NURSE PRACTITIONER OWAT Platelet Count 433(H) 157 - 371 x10(9)/L 05/16/2023 4:09 PM ADULT NURSE PRACTITIONER OWAT Leukocytes 10.2(H) 3.4 - 9.6 x10(9)/L 05/16/2023 4:09 PM ADULT NURSE PRACTITIONER OWAT Neutrophils 6.87(H) 1.56 - 6.45 x10(9)/L 05/16/2023 4:09 PM ADULT NURSE PRACTITIONER OWAT Lymphocytes 2.46 0.95 - 3.07 x10(9)/L 05/16/2023 4:09 PM ADULT NURSE PRACTITIONER OWAT Monocytes 0.70 0.26 - 0.81 x10(9)/L 05/16/2023 4:09 PM ADULT NURSE PRACTITIONER OWAT Eosinophils 0.07 0.03 - 0.48 x10(9)/L 05/16/2023 4:09 PM ADULT NURSE PRACTITIONER OWAT Basophils 0.05 0.01 - 0.08 x10(9)/L 05/16/2023 4:09 PM ADULT NURSE PRACTITIONER OWAT Blood (Blood, Venous) 05/16/2023 4:05 PM ADULT NURSE PRACTITIONER 05/16/2023 4:05 PM ADULT NURSE PRACTITIONER Zoe Hope M.D., M.S. LAB BLOOD ADD-ON Performing Organization Address City/[facility]/ZIP Co de Phone Number [facility] [address] [place] [address], [place] OWAT [facility] in [place] [address] [place] [address] * Phosphorus Inorganic (05/16/2023 4:05 PM ADULT NURSE PRACTITIONER) Phosphorus (Inorganic), P 3.7 2.5 - 4.5 mg/dL 05/17/2023 3:17 PM ADULT NURSE PRACTITIONER AUST Blood (Blood, Venous) 05/16/2023 4:05 PM ADULT NURSE PRACTITIONER 05/17/2023 3:02 PM ADULT NURSE PRACTITIONER Zoe Hope M.D., M.S. LAB BLOOD ADD-ON Performing Organization Address [facility]/ZIP Co de Phone Number [facility] [address] [place] [address], [place] AUST [facility] - [facility] [address] [place] [address] * Magnesium (05/16/2023 4:05 PM ADULT NURSE PRACTITIONER) Magnesium, P 2.3 1.7 - 2.3 mg/dL 05/16/2023 4:17 PM ADULT NURSE PRACTITIONER OWAT Blood (Blood, Venous) 05/16/2023 4:05 PM ADULT NURSE PRACTITIONER 05/16/2023 4:05 PM ADULT NURSE PRACTITIONER Zoe Hope M.D., M.S. LAB BLOOD ADD-ON Performing Organization Address City/[facility]/ZIP Co de Phone Number [facility] [address] [place] [address], [place] OW[place] [facility] [place] [address] [place] [address] * ECG 12 Lead (05/16/2023 3:50 PM ADULT NURSE PRACTITIONER) Ventricular Rate ECG/Min 92 BPM MUSE CA Interval 148 ms MUSE QRSD Interval 80 ms MUSE QT Interval 356 ms MUSE QTC Interval 440 ms MUSE P [place] 70 degrees MUSE R [place] 55 degrees MUSE T Wave [place] 36 degrees MUSE 05/16/2023 3:50 PM ADULT NURSE PRACTITIONER 05/16/2023 4:23 PM ADULT NURSE PRACTITIONER Impressions MUSE - 05/16/2023 4:23 PM ADULT NURSE PRACTITIONER Normal sinus rhythm Normal ECG When compared [...] (ABNORMAL) Basic Metabolic Panel (05/16/2023 3:35 PM ADULT NURSE PRACTITIONER) Potassium, P 4.3 3.6 - 5.2 mmol/L 05/16/2023 4:40 PM ADULT NURSE PRACTITIONER OWAT Sodium, P 134(L) 135 - 145 mmol/L 05/16/2023 4:40 PM ADULT NURSE PRACTITIONER OWAT Chloride, P 97(L) 98 - 107 mmol/L 05/16/2023 4:40 PM ADULT NURSE PRACTITIONER OWAT Bicarbonate, P 24 22 - 29 mmol/L 05/16/2023 4:40 PM ADULT NURSE PRACTITIONER OWAT Anion Gap, P 13 7 - 15 05/16/2023 4:40 PM ADULT NURSE PRACTITIONER OWAT BUN (Blood Urea Nitrogen), P 16 6 - 21 mg/dL 05/16/2023 4:40 PM ADULT NURSE PRACTITIONER OWAT Creatinine 0.81 0.59 - 1.04 mg/dL 05/16/2023 4:40 PM ADULT NURSE PRACTITIONER OWAT Estimated GFR (eGFR) 75 >=60 mL/min/BSA 05/16/2023 4:40 PM ADULT NURSE PRACTITIONER OWAT Comment: Estimated GFR calculated using the 2020 CKD_EPI creatinine equation. Calcium, Total, P 9.8 8.8 - 10.2 mg/dL 05/16/2023 4:40 PM ADULT NURSE PRACTITIONER OWAT Glucose, P 102 70 - 140 mg/dL 05/16/2023 4:40 PM ADULT NURSE PRACTITIONER OWAT Blood (Blood, Venous) 05/16/2023 3:35 PM ADULT NURSE PRACTITIONER 05/16/2023 4:22 PM ADULT NURSE PRACTITIONER Zoe Hope M.D., M.S. LAB BLOOD ADD-ON [facility] [address] [place] [address], [place] OW[place] [facility] [place] [address] [place] [address] * Ferritin (05/16/2023 1:35 PM ADULT NURSE PRACTITIONER) Ferritin, S 192 11 - 328 mcg/L 05/17/2023 9:14 AM ADULT NURSE PRACTITIONER OWAT Comment: Biotin has been identified by the assistant project manager as a potential interfering substance. Higher concentrations of biotin may be found in multivitamins, hair/nail supplements, and workout supplements. If the result does not match clinical observations, repeat testing after patient refrains from the use of supplements for at least 12 hours. Blood (Blood, Venous) 05/16/2023 1:35 PM ADULT NURSE PRACTITIONER 05/16/2023 4:07 PM ADULT NURSE PRACTITIONER Zoe Hope M.D., M.S. LAB BLOOD ADD-ON [facility] [address] [place] [address], [place] OW[place] [facility] [place] [address] [place] [address] from Last 3 Months Care Teams Kinder Teacher Relationship Specialty Start Date End Date Tigre Preciado P.A.-C., P.A. PCP - General Family Medicine 10/11/19
--- OUTSIDE RECORDS SUMMARY | 2023-05-21 16:11 | XMS_ITS | Encounter Summary ---
Author Name Unknown Organization [facility] Address [address] [place] [address] Care Team Providers Care Presentation Designer Name Role Phone Tigre Preciado P.A.-C., P.A. Primary Care Pr ovider Reason for Referral * Outpatient (Routine) - Closed Specialty Diagnoses / Procedures Referred By Contac t Referred To Contact Gynecology Diagnoses Cystocele Urinary Tract Infection Site Not Specified Personal History Of Other Diseases Of Urinary System Postmenopausal Atrophic Vaginitis Kanchan Granda, C.N.P. [address] [place] [phone] [facility] Referral ID Status Reason Start Date Expiration Date Visits Re quested Visits Authorized [id number] Closed 11/27/2022 11/27/2023 1 1 Encounter Details Date Type Department Care Team (Late st Contact Info) Description 11/26/2022 [facility] [address] [place] [address] Kanchan Granda, C.N.P. [address] [place] [address] Urinary Tract Infection Site Not [...] Score 0 06/26/2021 [facility] - Occupational Stress Questionnaire Answer Date [...] Total Score: 1 06/02/19 18 9:34 AM HEALTHCARE ADMINISTRATION INTERN documented as of this encounter Care Teams Presentation Designer Relationship Specialty Start Date End Date Tigre Preciado P.A.-C., P.A. PCP - General Family Medicine 10/11/19 documented as of this encounter
--- OUTSIDE RECORDS SUMMARY | 2023-05-21 16:12 | XMS_ITS | Encounter Summary ---
Author Name Unknown Organization [facility] Address [address] [place] [address] Care Team Providers Care Role Player Name Role Phone Tigre Preciado P.A.-C., P.A. Primary Care Pr ovider Reason for Visit * Reason Onset Date Comments Med Question 05/28/2022 Encounter Details Date Type Department Care Team (Latest Contact Info) Description 05/28/2022 Clinical Communication Division of Endocrinology in [place], [place] [address] [place] [address] Duncan Mcgraw M.D. [address] [place] [phone] Med Question Social History Tobacco Use Types [...] Answer Date Recorded PHQ-2 Score 0 06/26/2021 [facility] of Occupat ional Health - Occupational Stress [...] Juana Mcelroy, R.N. - 06/01/2022 10:52 AM CREW MANAGER SUBJECTIVE CHIEF COMPLAINT / REASON FOR CALL [...] nursing clinical judgement and provider Dr. Mcgraw MANAGER documented in this encounter Plan of Treatment Not on file documented as of this encounter Visit Diagnoses Not on filedocumented in this encounter Additional Health Concerns Assessment Noted Time PHQ-9 Depression Total Score: 1 06/02/19 18 9:34 AM CREW MANAGER documented as of this encounter Care Teams Role Player Relationship Specialty Start Date End Date Tigre Preciado P.A.-C., P.A. PCP - General Family Medicine 10/11/19 documented as of this encounter
--- OUTSIDE RECORDS SUMMARY | 2023-05-21 16:12 | XMS_ITS | Encounter Summary ---
Author Name Unknown Organization [facility] Address [address] [place] [address] Care Team Providers Care Black Oxide Operator Name Role Phone Tigre Preciado P.A.-C., P.A. Primary Care Pr ovider Reason for Visit * Reason Comments Med Refill Encounter Details Date Type Department Care Team (Late st Contact Info) Description 07/30/2022 Refill Department of Family Medicine, [facility], in [place], [place] [address] [place] [address] Tigre Preciado P.A.-C., P.A. [address] [place] [address] Med Refill Social History Tobacco [...] Answer Date Recorded PHQ-2 Score 0 06/26/2021 [facility] [place] of Occupat ional Health - Occupational Stress [...] Total Score: 1 06/02/19 18 9:34 AM ATM SERVICER documented as of this encounter Care Teams Black Oxide Operator Relationship Specialty Start Date End Date Tigre Preciado P.A.-C., P.A. PCP - General Family Medicine 10/11/19 documented as of this encounter
--- OUTSIDE RECORDS SUMMARY | 2023-05-21 16:12 | XMS_ITS | Encounter Summary ---
Author Name Unknown Organization [facility] Address [address] [place] [address] Care Team Providers Care [employer] Flatbed Driver Name Role Phone Tigre Preciado P.A.-C., P.A. Primary Care Pr ovider Reason for Visit * Reason Onset Date Comments Pre-visit Intake 07/09/2022 Encounter Details Date Type Department Care Team (Latest Contact Info) Description 07/09/2022 2:30 PM CDT Clinical Communication Virtual Review in [place], [place] [address] [place], [place] [address] Pre-visit Intake Social History Tobacco Use Types [...] Answer Date Recorded PHQ-2 Score 0 06/26/2021 [facility] [place] of Occupat ional Health - Occupational Stress [...] Total Score: 1 06/02/19 18 9:34 AM MEDICAL OFFICE TECHNOLOGIST documented as of this encounter Care Teams [employer] Flatbed Driver Relationship Specialty Start Date End Date Tigre Preciado P.A.-C., P.A. PCP - General Family Medicine 10/11/19 documented as of this encounter
--- OUTSIDE RECORDS SUMMARY | 2023-05-21 16:12 | XMS_ITS | Encounter Summary ---
Author Name Unknown Organization [facility] Address [address] [place] [address] Care Team Providers Care Latex Foam Worker Name Role Phone Tigre Preciado P.A.-C., P.A. Primary Care Pr ovider Reason for Referral * Outpatient (Routine) - Closed Specialty Diagnoses / Procedures Referred By Contac t Referred To Contact Breast Clinic Diagnoses Discharge Nipple Kanchan Granda, C.N.P. [address] [place] [address] [facility] Referral ID Status Reason Start Date Expiration Date Visits Re quested Visits Authorized [id number] Closed 07/03/2022 07/03/2023 1 1 Encounter Details Date Type Department Care Team (Late st Contact Info) Description 07/03/2022 [facility] [address] [place] [address] Kanchan Granda, C.N.P. [address] [place] [address] Discharge Nipple (Primary Dx) Social [...] Answer Date Recorded PHQ-2 Score 0 06/26/2021 [facility] of Occupat ional Health - Occupational [...] Total Score: 1 06/02/19 18 9:34 AM DEICER INSPECTOR PNEUMATIC documented as of this encounter Care Teams Latex Foam Worker Relationship Specialty Start Date End Date Tigre Preciado P.A.-C., P.A. PCP - General Family Medicine 10/11/19 documented as of this encounter
--- OUTSIDE RECORDS SUMMARY | 2023-05-21 16:12 | XMS_ITS | Encounter Summary ---
Author Name Unknown Organization [facility] Address [address] [place] [address] Care Team Providers Care Paint Pourer Name Role Phone Tigre Preciado P.A.-C., P.A. Primary Care Pr ovider Encounter Details Date Type Department Care Team (Late st Contact Info) Description 09/02/2022 Orders Only [facility] Tigre Preciado P.A.-C., P.A. [address] [place] [phone] Social History Tobacco Use Types Packs/Day Years [...] Answer Date Recorded PHQ-2 Score 0 06/26/2021 [facility] [place] of Occupat ional Health - Occupational Stress [...] Total Score: 1 06/02/19 18 9:34 AM SOFTWARE ENGINEER KERNEL documented as of this encounter Care Teams Paint Pourer Relationship Specialty Start Date End Date Tigre Preciado P.A.-C., P.A. PCP - General Family Medicine 10/11/19 documented as of this encounter
--- OUTSIDE RECORDS SUMMARY | 2023-05-21 16:12 | XMS_ITS | Encounter Summary ---
Author Name Unknown Organization [facility] Address [address] [place] [address] Care Team Providers Care Emt Paramedic Name Role Phone Tigre Preciado P.A.-C., P.A. Primary Care Pr ovider Encounter Details Date Type Department Care Team (Late st Contact Info) Description 07/03/2022 Orders Only Division of Endocrinology in [place], [place] [address] [place] [phone] Duncan Mcgraw M.D. [address] [place] [address] Osteoporosis (Primary Dx) Social History Tobacco Use [...] Answer Date Recorded PHQ-2 Score 0 06/26/2021 [facility] [place] of Occupat ional Health - Occupational Stress [...] Total Score: 1 06/02/19 18 9:34 AM FILTER WASHER AND PRESSER documented as of this encounter Care Teams Emt Paramedic Relationship Specialty Start Date End Date Tigre Preciado P.A.-C., P.A. PCP - General Family Medicine 10/11/19 documented as of this encounter
--- OUTSIDE RECORDS SUMMARY | 2023-05-21 16:12 | XMS_ITS | Encounter Summary ---
Author Name Unknown Organization [facility] Address [address] [place] [address] Care Team Providers Care Junior Assistant Manager Name Role Phone Tigre Preciado P.A.-C., P.A. Primary Care Pr ovider Reason for Visit * Reason Comments Med Refill Encounter Details Date Type Department Care Team (Late st Contact Info) Description 10/05/2022 Refill [facility] in [place], [place] [address] [place] [address] Tigre Preciado P.A.-C., P.A. [address] [place] [address] Med Refill Social History Tobacco [...] Date Recorded PHQ-2 Score 0 06/26/2021 [facility] [place] of Occupat ional Health - Occupational Stress [...] Discrepancy; Patient taking Differently Primary Provider: Tigre Preciado P.A.-C. Requested Prescriptions Pending Prescriptions Disp Refills montelukast (SINGULAIR) 10 mg tablet [Pharmacy Med Name: MONTELUKAST SOD 10 MG TAB 10 Tablet] 90 tablet 3 Sig: TAKE 1 TABLET (10 MG TOTAL) BY MOUTH AT BEDTIME. Pharmacy (include location): [facility] [place], [place] - [address] [place] [address] documented in this encounter Plan of Treatment Not on file documented as of this encounter Visit Diagnoses Not on filedocumented in this encounter Additional Health Concerns Assessment Noted Time PHQ-9 Depression Total Score: 1 06/02/19 18 9:34 AM AIR TURNING MACHINE FEEDER documented as of this encounter Care Teams Junior Assistant Manager Relationship Specialty Start Date End Date Tigre Preciado P.A.-C., P.A. PCP - General Family Medicine 10/11/19 documented as of this encounter
--- OUTSIDE RECORDS SUMMARY | 2023-05-21 16:12 | XMS_ITS | Encounter Summary ---
Author Name Unknown Organization [facility] Address [address] [place] [address] Care Team Providers Care Floor Trader Name Role Phone Tigre Preciado P.A.-C., P.A. Primary Care Pr ovider Reason for Visit * Episode Based Medications (Routine) - Closed Specialty Diagnoses / Procedures Referred By Contac t Referred To Contact Diagnoses Osteoporosis Procedures FL ZOLEDRONIC ACID 1MG Duncan Mcgraw M.D. [address] [place] [phone] [address] End Silvia [address] [place] [phone] Referral ID Status Reason Start Date Expiration Date Visits Re quested Visits Authorized [id number] Closed 07/03/2022 07/03/2023 1 1 Encounter Details Date Type Department Care Team (Late st Contact Info) Description 07/08/2022 10:15 AM CDT Infusion Department of Infusion Therapy in [place], [place] [address] [place] [phone] Duncan Mcgraw M.D. [address] [place] [phone] Osteoporosis (Primary Dx) Discharge Disposition: Home [...] Answer Date Recorded PHQ-2 Score 0 06/26/2021 [facility] of Occupat ional Health - Occupational [...] 07/08/2022 10:50 AM CDT 3 mL zoledronic smwz-dxcjacvm-amith IVPB 5 mg (RECLAST) 5 mg, intravenous, [...] Total Score: 1 06/02/19 18 9:34 AM BLOCKER AND CUTTER CONTACT LENS documented as of this encounter Care Teams Floor Trader Relationship Specialty Start Date End Date Tigre Preciado P.A.-C., P.A. PCP - General Family Medicine 10/11/19 documented as of this encounter
--- OUTSIDE RECORDS SUMMARY | 2023-05-21 16:12 | XMS_ITS | Encounter Summary ---
Author Name Unknown Organization [facility] Address [address] [place] [address] Care Team Providers Care Sole Ruffer Name Role Phone Tigre Preciado P.A.-C., P.A. Primary Care Pr ovider Reason for Visit * Reason Onset Date Comments Follow-up Orders 07/01/2022 Reclast Encounter Details Date Type Department Care Team (Latest Contact Info) Description 07/01/2022 Clinical Communication Division of Endocrinology in [place], [place] [address] [place] [phone] Duncan Mcgraw M.D. [address] [place] [phone] Follow-up Orders (Reclast) Social History Tobacco Use [...] 0 06/26/2021 [facility] of Occupat ional Health - Occupational Stress [...] Total Score: 1 06/02/19 18 9:34 AM MFG ASSOC documented as of this encounter Care Teams Sole Ruffer Relationship Specialty Start Date End Date Tigre Preciado P.A.-C., P.A. PCP - General Family Medicine 10/11/19 documented as of this encounter
--- OUTSIDE RECORDS SUMMARY | 2023-05-21 16:12 | XMS_ITS | Encounter Summary ---
Author Name Unknown Organization [facility] Address [address] [place] [address] Care Team Providers Care Physician Support Coordinator Name Role Phone Tigre Preciado P.A.-C., P.A. Primary Care Pr ovider Reason for Referral * Outpatient (Routine) - Authorized Specialty Diagnoses / Procedures Referred By Contac t Referred To Contact Diagnoses Costochondritis Procedures ECG 12 Lead Edel Monae M.D. [address] [place] [address] [facility] Region Referral ID Status Reason Start Date Expiration Date V isits Requested Visits Authorized [id number] Authorized 08/15/2022 08/15/2023 1 1 Reason for Visit * Reason Comments Cough 5 days, currently on Zpack Shortness of Breath 3 days Chest Pain Earlier today not no w Encounter Details Date Type Department Care Team (Late st Contact Info) Description 08/15/2022 12:30 PM CDT Office Visit Department of Family Medicine, [facility], in [place], [place] [address] [place] [address] Edel Monae M.D. [address] [place] [address] Wheezing (Primary Dx); Fatigue; Asthma [...] Answer Date Recorded PHQ-2 Score 0 06/26/2021 [facility] of Occupat ional Health - Occupational [...] Body Mass Index 21.87 05/26/2022 9:30 AM WALL COVERING INSTALLER documented in this encounter Progress Notes * [...] was seen at an emergency department in [place] and was found to have a pneumonia. [...] CDT) Ventricular Rate ECG/Min 69 BPM MUSE NM Interval 150 ms MUSE QRSD Interval 86 ms MUSE QT Interval 400 ms MUSE QTC Interval 428 ms MUSE P [place] 52 degrees MUSE R [place] 20 degrees MUSE T Wave [place] 32 degrees MUSE 08/15/2022 12:4 9 PM [...] Total Score: 1 06/02/19 18 9:34 AM WALL COVERING INSTALLER documented as of this encounter Care Teams Physician Support Coordinator Relationship Specialty Start Date End Date Tigre Preciado P.A.-C., P.A. PCP - General Family Medicine 10/11/19 documented as of this encounter
--- OUTSIDE RECORDS SUMMARY | 2023-05-21 16:12 | XMS_ITS | Encounter Summary ---
Author Name Unknown Organization [facility] Address [address] [place] [address] Care Team Providers Care Band Director Name Role Phone Tigre Preciado P.A.-C., P.A. Primary Care Pr ovider Reason for Visit * Reason Onset Date Comments Pre-visit Intake 08/10/2022 Encounter Details Date Type Department Care Team (Latest Contact Info) Description 08/10/2022 2:30 PM CDT Clinical Communication Virtual Review in [place], [place] [address] [place], [place] [phone] Pre-visit Intake Social History Tobacco Use Types [...] Answer Date Recorded PHQ-2 Score 0 06/26/2021 [facility] [place] of Occupat ional Health - Occupational Stress [...] Total Score: 1 06/02/19 18 9:34 AM DIALYSIS BIOMED TECHNICIAN documented as of this encounter Care Teams Band Director Relationship Specialty Start Date End Date Tigre Preciado P.A.-C., P.A. PCP - General Family Medicine 10/11/19 documented as of this encounter
--- OUTSIDE RECORDS SUMMARY | 2023-05-21 16:12 | XMS_ITS | Encounter Summary ---
Author Name Unknown Organization [facility] Address [address] [place] [address] Care Team Providers Care Inspector Exhaust Emissions Name Role Phone Tigre Preciado P.A.-C., P.A. Primary Care Pr ovider Reason for Visit * Reason Onset Date Comments Cough 08/15/2022 Encounter Details Date Type Department Care Team (Late st Contact Info) Description 08/15/2022 Nurse Triage Department of Family Medicine, [facility], in [place], [place] [address] [place] [address] Beryl Arriola, RlEdaNElda [address] [place] [phone] Cough Social History Tobacco Use Types Packs/Day [...] PHQ-2 Score 0 06/26/2021 [facility] [place] of Occupat ional Health - Occupational Stress [...] encounter Miscellaneous Notes * Telephone Encounter - Breyl Arriola, REldaN. - 08/15/2022 9:03 AM CDT [...] cares tried: Seen by primary care at [place] (with josi prescribed) by [facility] Provider on Wednesday. Calling to request: [...] or 4 hours. Call your doctor (or RESTORATION SILVERSMITH/PA) now or as soon as the office [...] need to be seen. Your doctor (or RESTORATION SILVERSMITH/PA) will want to talk with you to [...] Caller was warm transferred to Patient Appointment Assistant Field Hockey Coach at the clinic for further assistance. Reason for Disposition [1] MILD difficulty breathing (e.g., minimal/no SOB at rest, SOB with walking, pulse <100) AND [2] still present when not coughing Protocols used: Cough - Acute [place]-YPKBG-XT documented in this encounter Plan of Treatment Not on file documented as of this encounter Visit Diagnoses Not on filedocumented in this encounter Additional Health Concerns Assessment Noted Time PHQ-9 Depression Total Score: 1 06/02/19 18 9:34 AM CONSUMER ELECTRONIC RETAIL SPECIALIST documented as of this encounter Care Teams Inspector Exhaust Emissions Relationship Specialty Start Date End Date Tigre Preciado P.A.-C., P.A. PCP - General Family Medicine 10/11/19 documented as of this encounter
--- OUTSIDE RECORDS SUMMARY | 2023-05-21 16:12 | XMS_ITS | Encounter Summary ---
Author Name Unknown Organization [facility] Address [address] [place] [address] Care Team Providers Care Emergency Department Clinician Name Role Phone Tigre Preciado P.A.-C., P.A. Primary Care Pr ovider Encounter Details Date Type Department Care Team (Late st Contact Info) Description 11/24/2022 [facility] [address] [place] [address] Kanchan Granda, C.N.P. [address] [place] [phone] Urinary Tract Infection Site Not Specified (Primary [...] Answer Date Recorded PHQ-2 Score 0 06/26/2021 [facility] [place] of Occupat ional Health - Occupational Stress [...] Total Score: 1 06/02/19 18 9:34 AM CASINO CAGE SUPERVISOR documented as of this encounter Care Teams Emergency Department Clinician Relationship Specialty Start Date End Date Tigre Preciado P.A.-C., P.A. PCP - General Family Medicine 10/11/19 documented as of this encounter
--- OUTSIDE RECORDS SUMMARY | 2023-05-21 16:12 | XMS_ITS | Encounter Summary ---
Author Name Unknown Organization [facility] Address [address] [place] [address] Care Team Providers Care Top Precipitator Operator Helper Name Role Phone Tigre Preciado P.A.-C., P.A. Primary Care Pr ovider Reason for Visit * Reason Onset Date Comments OSM notification 07/06/2022 Encounter Details Date Type Department Care Team (Latest Contact Info) Description 07/06/2022 Clinical Communication Breast Diagnostic Clinic in [place], [place] [address] [place] [phone] Amy Anthony M.D. [address] [place] [phone] OSM notification Social History Tobacco Use Types [...] Date Recorded PHQ-2 Score 0 06/26/2021 [facility] [place] of Occupat ional Health - Occupational Stress [...] OSM Request: Patient has been seen at [facility] in [facility]. All images are in QREADS dating back [...] Outside Records: Patient is seen at a [facility] system so everything should be here already NOTE: If most recent imaging was completed at [facility], then no need for interpretation of older imaging that was done elsewhere. Patient was made aware there will be associated charges from the Radiology or Pathology department to review outside imaging and pathology. When information has been received, please alert the HARLAN ENROLLMENT MANAGEMENT MANAGER (P RST BRS ENROLLMENT MANAGEMENT MANAGER) by forwarding on thismessage for ordering purposes. Thank you! documented in this encounter Plan of Treatment Not on file documented as of this encounter Visit Diagnoses Not on filedocumented in this encounter Additional Health Concerns Assessment Noted Time PHQ-9 Depression Total Score: 1 06/02/19 18 9:34 AM COMMUNICATIONS EXECUTIVE documented as of this encounter Care Teams Top Precipitator Operator Helper Relationship Specialty Start Date End Date Tigre Preciado P.A.-C., P.A. PCP - General Family Medicine 10/11/19 documented as of this encounter
--- OUTSIDE RECORDS SUMMARY | 2023-05-21 16:12 | XMS_ITS | Encounter Summary ---
Author Name Unknown Organization [facility] Address [address] [place] [address] Care Team Providers Care Wire Bender Name Role Phone Tigre Preciado P.A.-C., P.A. Primary Care Pr ovider Encounter Details Date Type Department Care Team (Latest Contact Info) Description 05/26/2022 10:52 AM CYBER INTELLIGENCE ANALYST - 05/26/2022 11:59 PM [facility] Encounter Department of Laboratory Medicine and Pathology, [facility] in [place], [place] [address] [place] [address] Duncan Mcgraw M.D. [address] [place] [phone] Osteoporosis Without Pathological Fracture Discharge Disposition: Home [...] Date Recorded PHQ-2 Score 0 06/26/2021 [facility] [place] of Occupat ional Health - Occupational Stress [...] and swallow 280 mL 0 07/02/2021 vitamin A,C,J-uaeern-orhmpyds (OCUVITE W/LUTEIN) 1,000 Unit-200 mg-60 Unit-2 mg [...] Duncan Mcgraw M.D. - 05/29/2022 1:28 PM CYBER INTELLIGENCE ANALYST Total vitamin-D level is 57 ng/mL. Optimal total vitamin-D range for skeletal health is 30-50 with allowable safe level up to 60 ng per mL. No change in vitamin-D dosing is needed. Vitamin-D level should be rechecked in 1 year. R INTELLIGENCE ANALYST documented in this encounter Plan of Treatment Not on file documented as of this encounter Procedures Procedure Name Priority Date/Time Associated Diagnosis Comments 25-HYDROXYVITAMIN D2 AND D3, S Routine 05/26/2022 11:02 AM CYBER INTELLIGENCE ANALYST Osteoporosis Without Pathological Fracture CREATININE WITH EGFR, S/P Routine 05/26/2022 11:02 AM CYBER INTELLIGENCE ANALYST Osteoporosis Without Pathological Fracture CALCIUM, TOT, S/P Routine 05/26/2022 11: 02 AM CYBER INTELLIGENCE ANALYST Osteoporosis Without Pathological Fracture documented in this encounter Results * Calcium, Total (05/26/2022 11:02 AM CYBER INTELLIGENCE ANALYST) Pathologist [facility] Calcium, Total, S 10.1 8.8 - 10.2 mg/dL 05/26/2022 11:57 AM CYBER INTELLIGENCE ANALYST DTL Blood (Blood, Venous) 05/26/2022 11:02 AM CYBER INTELLIGENCE ANALYST 05/26/2022 11:36 AM CYBER INTELLIGENCE ANALYST Duncan Mcgraw M.D. LAB BLOOD ADD-ON Performing Organization Address [facility]/ZIP Co de Phone Number [facility] [address] 200 [place] [address] * Creatinine with Estimated GFR (05/26/2022 11:02 AM CYBER INTELLIGENCE ANALYST) [facility] Creatinine 0.94 0.59 - 1.04 mg/dL 05/26/2022 11:57 AM CYBER INTELLIGENCE ANALYST DTL Estimated GFR (eGFR) 63 >=60 mL/min/BSA 05/26/2022 11:57 AM CYBER INTELLIGENCE ANALYST DTL Comment: Estimated GFR calculated using the 2020 CKD_EPI creatinine equation. Blood (Blood, Venous) 05/26/2022 11:02 AM CYBER INTELLIGENCE ANALYST 05/26/2022 11:36 AM CYBER INTELLIGENCE ANALYST Duncan Mcgraw M.D. LAB BLOOD ADD-ON Performing Organization Address [facility]/ZIP Co de Phone Number [facility] [address] [place] [address], [facility] [address] [place] [address] * 25-Hydroxyvitamin D2 and D3 (05/26/2022 11:02 AM CYBER INTELLIGENCE ANALYST) 25-Hydroxy D2 <4.0 ng/mL 05/28/2022 3:38 PM CYBER INTELLIGENCE ANALYST [facility] 25-Hydroxy D3 57 ng/mL 05/28/2022 3:38 PM CYBER INTELLIGENCE ANALYST [facility] 25-Hydroxy D Total 57 ng/mL 2022 3:38 PM CYBER INTELLIGENCE ANALYST [facility] Comment: Interpretation: 51-80 ng/mL (increased risk of hypercalciuria) ----REFERENCE VALUE---- 25-HYDROXY D TOTAL (D2+D3) Optimum levels in the healthy population are 20-50, patients with bone disease may benefit from higher levels within this range. ----ADDITIONAL INFORMATION---- This test was developed and its performance characteristics determined by [facility] in a manner consistent with CLIA requirements. This test has not been cleared or approved by the U.S. Food and Drug Administration. Blood (Blood, Venous) 05/26/2022 11:02 AM CYBER INTELLIGENCE ANALYST 05/26/2022 3:01 PM CYBER INTELLIGENCE ANALYST Duncan Mcgraw M.D. LAB BLOOD ADD-ON [facility] [address] [place] [address] [facility] [address] [place] [address] documented in this encounter Visit Diagnoses Diagnosis Osteoporosis Without Pathological Fracture documented in this encounter Additional Health Concerns Assessment Noted Time PHQ-9 Depression Total Score: 1 06/02/19 18 9:34 AM CYBER INTELLIGENCE ANALYST documented as of this encounter Care Teams Wire Bender Relationship Specialty Start Date End Date Tigre Preciado P.A.-C., P.A. PCP - General Family Medicine 10/11/19 documented as of this encounter
--- OUTSIDE RECORDS SUMMARY | 2023-05-21 16:12 | XMS_ITS | Encounter Summary ---
Author Name Unknown Organization [facility] Address [address] [place] [address] Care Team Providers Care Physiotherapy Aide Name Role Phone Tigre Preciado P.A.-C., P.A. Primary Care Pr ovider Reason for Visit * Reason Onset Date Comments Pre-visit Intake 07/23/2022 Encounter Details Date Type Department Care Team (Latest Contact Info) Description 07/23/2022 9:00 AM CDT Clinical Communication Virtual Review in [place], [place] [address] [place], [place] [phone] Pre-visit Intake Social History Tobacco Use Types [...] Answer Date Recorded PHQ-2 Score 0 06/26/2021 [facility] [place] of Occupat ional Health - Occupational Stress [...] Total Score: 1 06/02/19 18 9:34 AM TANDEM MILL STICKER documented as of this encounter Care Teams Physiotherapy Aide Relationship Specialty Start Date End Date Tigre Preciado P.A.-C., P.A. PCP - General Family Medicine 10/11/19 documented as of this encounter
--- OUTSIDE RECORDS SUMMARY | 2023-05-21 16:12 | XMS_ITS | Encounter Summary ---
Author Name Unknown Organization [facility] Address [address] [place] [address] Care Team Providers Care Big Data Engineer Name Role Phone Tigre Preciado P.A.-C., P.A. Primary Care Pr ovider Encounter Details Date Type Department Care Team (Latest Contact Info) Description 05/26/2022 Clinical Communication Division of Endocrinology in [place], [place] [address] [place] [phone] Duncan Mcgraw M.D. [address] [place] [address] Social History Tobacco Use Types Packs/Day Years [...] Answer Date Recorded PHQ-2 Score 0 06/26/2021 [facility] [place] of Occupat ional Health - Occupational Stress [...] Total Score: 1 06/02/19 18 9:[address]ISTRATE documented as of this encounter Care Teams Big Data Engineer Relationship Specialty Start Date End Date Tigre Preciado P.A.-C., P.A. PCP - General Family Medicine 10/11/19 documented as of this encounter
--- OUTSIDE RECORDS SUMMARY | 2023-05-21 16:12 | XMS_ITS | Encounter Summary ---
Author Name Unknown Organization [facility] Address [address] [place] [address] Care Team Providers Care Advertising Display Rotator Name Role Phone Tigre Preciado P.A.-C., P.A. Primary Care Pr ovider Reason for Visit * Reason Comments Consult * Outpatient (Routine) - Closed Specialty Diagnoses / Procedures Referred By Contcarlie t Referred To Contact Breast Clinic Diagnoses Discharge Nipple Kanchan Granda, C.N.P. [address] [place] [phone] [facility] Referral ID Status Reason Start Date Expiration Date Visits Re quested Visits Authorized [id number] Closed 07/03/2022 07/03/2023 1 1 Encounter Details Date Type Department Care Team ([facility] st Contact Info) Description 08/13/2022 10:30 AM CDT Comprehensive Visit Breast Diagnostic Clinic in [place], [place] [address] [place] [phone] Shelby Austin M.D., [facility] [address] [place] [phone] Pruritus (Primary Dx); Discharge Nipple Social History [...] Answer Date Recorded PHQ-2 Score 0 06/26/2021 [facility] of Occupat ional Health - [...] colon cancer who ultimately lived to be [facility]. OBJECTIVE PHYSICAL EXAM BP 147/84 (BP Location: [...] Total Score: 1 06/02/19 18 9:34 AM OIL RECOVERY OPERATOR documented as of this encounter Care Teams Advertising Display Rotator Relationship Specialty Start Date End Date Tigre Preciado P.A.-C., P.A. PCP - General Family Medicine 10/11/19 documented as of this encounter
--- OUTSIDE RECORDS SUMMARY | 2023-05-21 16:13 | XMS_ITS | Clinical Summary ---
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 We also discussed management options with vaginal estrogen therapy, pessary, or surgical intervention. She is not interested in these options at this time. I recommend she follow up as needed in the future. Osteoporosis 07/20/2017 Personal history of colonic polyps 11/10/2012 Reactive airway disease 07/12/2009 Headache(784.0) 01/09/2009 Encounters Date Type Department Care Team Description 05/16/2023 Orders Only [facility] Staff, Other Clinical 1 scan: (1-Ord) <No description> 05/16/2023 Orders Only [facility] Staff, Other Clinical 1 scan: (1-Ord) <No description> from Last 3 Months Immunizations Name Administration Dates Next Due COVID-19 vaccine (Blazent 30mcg/0.3mL) P F, MDV 02/24/2021 Influenza, IIV3 [...] 159 cm (5' 2.6) 02/29/2020 12:48 PM FIELD MERCHANDISER Body Mass Index 22.61 02/29/2020 12:48 PM FIELD MERCHANDISER Plan of Treatment Health Maintenance Due Date [...] 12+ 11/22/2018 11/23/19 18 COVID-19 vaccine series ( season) 2022 02/24/2021, 07/04/2020, 06/06/2020 Influenza for age 65+ 12/18/2022 02/03/2021 , 02/19/2020, 01/21/2009 Tdap Completed 01/23/2003 Procedures Procedure Name Priority Date/Time Associated Diagnosis Comments SCAN-RADIOLOGY REPORT 05/16/2023 4:34 PM FIELD MERCHANDISER SCAN-RADIOLOGY REPORT 05/16/2023 4:29 PM FIELD MERCHANDISER from Last 3 Months Results * SCAN-RADIOLOGY REPORT (05/16/2023 4:34 PM FIELD MERCHANDISER) Only the most recent of2 resultswithin the time period is included. Anatomical Region Laterality Modality Other Narrative 05/16/2023 4:34 PM FIELD MERCHANDISER Ordered by an unspecified provider. Other Clinical Staff OTHER from Last 3 Months Advance Directives Latest Code Status on File Code Status Date Activated Date Inactivated Comments Full Code 03/13/2020 7:36 AM 03/13/2020 1:19 PM Question Answer Comments Code Status Discussion: Not Discussed Care Teams Residential Counselor Relationship Specialty Start Date End Date Tigre Preciado PA PCP - General Physician Criminal Judge 01/15/20
--- OUTSIDE RECORDS SUMMARY | 2023-05-21 16:13 | XMS_ITS | Encounter Summary ---
Author Name Unknown Organization [facility] Address [address] [place] [address] Care Team Providers Care Belt Glass Sander Name Role Phone Tigre Preciado P.A.-C., P.A. Primary Care Pr ovider Reason for Visit * Outpatient (Routine) - Closed Specialty Diagnoses / Procedures Referred By Contac t Referred To Contact Endocrinology Diagnoses Osteoporosis Without Pathological Fracture Kanchan Granda, C.N.P. [address] [place] [address] [facility] Referral ID Status Reason Start Date Expiration Date Visits Re quested Visits Authorized [id number] Closed 04/15/2022 04/15/2023 1 1 Encounter Details Date Type Department Care Team (Latest Contact Info) Description 05/26/2022 10:00 AM LEGAL DOCUMENT SPECIALIST Comprehensive Visit Division of Endocrinology in [place], [place] [address] [place] [phone] Duncan Mcgraw M.D. [address] [place] [phone] Osteoporosis Without Pathological Fracture Social History Tobacco [...] Answer Date Recorded PHQ-2 Score 0 06/26/2021 [facility] - Occupational Stress Questionnaire Answer [...] Comments Blood Pressure 149/100 05/26/2022 9:30 AM LEGAL DOCUMENT SPECIALIST swe ater on Pulse 102 05/26/2022 9:30 AM LEGAL DOCUMENT SPECIALIST Temperature - - Respiratory Rate - - Oxygen Saturation - - Inhaled Oxygen Concentration - - Weight 56 kg (123 lb 7.3 oz) 05/26/2022 9:30 AM LEGAL DOCUMENT SPECIALIST Height 160.3 cm (5' 3.11) 05/26/2022 9:30 AM CS T Body Mass Index 21.79 05/26/2022 9:30 AM LEGAL DOCUMENT SPECIALIST documented in this encounter H&P Notes * Duncan Mcgraw M.D. - 05/26/2022 10:00 AM CST [facility] Endocrinology, Diabetes, Metabolism and Nutrition Bone/Osteoporosis [...] density: Most recent bone density performed at [facility] 04/01/2022 revealed osteoporosis at the lumbar [...] is appropriate for age and gender. Hand commercial helicopter pilot normal. Neuro: Able to rise from seated position without assistance. Gait normal. Balance normal. Spine: midthoracic xbup-ju-jekhruqe kyphosis but nontender to palpation and percussion. [...] zoledronic acid/Reclast. 2. Adequate replacement of calcium (3919-5473 mg/day of elemental calcium in divided doses) [...] arrange for it to be done at [facility] in [place]. She should have a bone mineral density [...] with more than 50% of time in vvyy-xv-bewr discussion with the patient who was alone today. L DOCUMENT SPECIALIST documented in this encounter Plan of Treatment Not on file documented as of this encounter Results * Calcium, Total (05/26/2022 11:02 AM LEGAL DOCUMENT SPECIALIST) Calcium, Total, S 10.1 8.8 - 10.2 mg/dL 05/26/2022 11:57 AM LEGAL DOCUMENT SPECIALIST DTL Blood (Blood, Venous) 05/26/2022 11:02 AM LEGAL DOCUMENT SPECIALIST 05/26/2022 11:36 AM LEGAL DOCUMENT SPECIALIST Duncan Mcgraw M.D. LAB BLOOD ADD-ON Performing Organization Address City/[facility]/ZIP Co de Phone Number [address] [place] [address] * Creatinine with Estimated GFR (05/26/2022 11:02 AM LEGAL DOCUMENT SPECIALIST) Creatinine 0.94 0.59 - 1.04 mg/dL 05/26/2022 11:57 AM LEGAL DOCUMENT SPECIALIST DTL Estimated GFR (eGFR) 63 >=60 mL/min/BSA 05/26/2022 11:57 AM LEGAL DOCUMENT SPECIALIST DTL Comment: Estimated GFR calculated using the 2020 CKD_EPI creatinine equation. Blood (Blood, Venous) 05/26/2022 11:02 AM LEGAL DOCUMENT SPECIALIST 05/26/2022 11:36 AM LEGAL DOCUMENT SPECIALIST Duncan Mcgraw M.D. LAB BLOOD ADD-ON [address] [place] [address] * 25-Hydroxyvitamin D2 and D3 (05/26/2022 11:02 AM LEGAL DOCUMENT SPECIALIST) 25-Hydroxy D2 <4.0 ng/mL 05/28/2022 3:38 PM LEGAL DOCUMENT SPECIALIST SDS 25-Hydroxy D3 57 ng/mL 05/28/2022 3:38 PM LEGAL DOCUMENT SPECIALIST SDS 25-Hydroxy D Total 57 ng/mL 2022 3:38 PM LEGAL DOCUMENT SPECIALIST [facility] Comment: Interpretation: 51-80 ng/mL (increased risk of hypercalciuria) ----REFERENCE VALUE---- 25-HYDROXY D TOTAL (D2+D3) Optimum levels in the healthy population are 20-50, patients with bone disease may benefit from higher levels within this range. ----ADDITIONAL INFORMATION---- This test was developed and its performance characteristics determined by [facility] in a manner consistent with CLIA requirements. This test has not been cleared or approved by the U.S. Food and Drug Administration. Blood (Blood, Venous) 05/26/2022 11:02 AM LEGAL DOCUMENT SPECIALIST 05/26/2022 3:01 PM LEGAL DOCUMENT SPECIALIST Duncan Mcgraw M.D. LAB BLOOD ADD-ON [facility] [address] [place] [address] [facility] [address] [place] [address] documented in this encounter Visit Diagnoses Diagnosis Osteoporosis Without Pathological Fracture documented in this encounter Additional Health Concerns Assessment Noted Time PHQ-9 Depression Total Score: 1 06/02/19 18 9:34 AM LEGAL DOCUMENT SPECIALIST documented as of this encounter Care Teams Belt Glass Sander Relationship Specialty Start Date End Date Tigre Preciado P.A.-C., P.A. PCP - General Family Medicine 10/11/19 documented as of this encounter
== END 2023-05-21 16:04 | disposition home or self-care (01) ==
LOC: US 16:04
PROVIDERS: PCP Nurse Practitioner Family; Visit Provider Nurse Practitioner Family
DX: S80.02XA Contusion of left knee, initial encounter (principal)
CPT/HCPCS: 93971

== ENCOUNTER 2023-05-25 15:04 | Outpatient (CLI) | payer MEDICARE, SELFPAY ==
--- OUTSIDE RECORDS SUMMARY | 2023-05-25 15:11 | XMS_ITS | Clinical Summary ---
Author Name Unknown Organization [facility] Address [address] [place] [address] Care Team Providers Care Retail Loan Officer Name Role Phone Tigre Preciado P.A.-C., P.A. Primary Care Pr ovider Source Comments Patient records contain information from all sites at [facility]. For routine questions regarding patient records, call [phone] during business hours, M-F 8:00 AM - 5:00 PM Central Time. Record requests for emergency care only can be directed to [phone] at any time.[facility] Allergies Active Allergy Reactions Criticality Noted Date [...] mg by mouth daily. 0 Active vitamin A,C,V-gfvxxm-ppwlz als (OCUVITE W/LUTEIN) 1,000 Unit-200 mg-60 Unit-2 [...] wheezing. 8 g 3 07/02/2021 Active zoledronic zklj-erhonhtF-drzu r (RECLAST) 5 mg/100 mL piggyback Infuse [...] will continue to work with her current pace analyst. We also discussed management options with [...] Encounters Date Type Department Care Team Description 05/25/2023 Orders Only [facility] PCP [facility] MNT Tigre Preciado P.A.Chery., P.A. 05/16/2023 3:57 PM FORESTRY SCIENTIST - 05/16/2023 11:59 PM FORESTRY SCIENTIST Hospital Encounter Department of Radiology in [place], [place] [address] [place] [phone] Zoe Hope M.D., M.S. Injury Head Initial Discharge Disposition: Home or Self Care 05/16/2023 3:56 PM FORESTRY SCIENTIST Hospital Encounter Department of Radiology in [address] [phone] Zoe Hope M.D., M.S. Injury Head Initial Discharge Disposition: Home or Self Care 05/16/2023 3:00 PM FORESTRY SCIENTIST Office Visit Department of Family Medicine, [facility], in [place], [place] [address] [place] [phone] Zoe Hope M.D., M.S. Injury Head Initial (Primary Dx); History Of Falling 05/16/2023 Clinical Communication Department of Orthopedic Surgery in [address] [phone] Sebastián Esteban M.D. 05/16/2023 Nurse Triage Department of Family Medicine, [facility], in [place], [place] [address] [place] [phone] Valerie Wadsworth R.N. Head Injury; Knee Injury [...] pur e alcohol) Overall Financial Resource Strain (CARDI) Answe r Date Recorded How hard is it for you to pa y for the very basics like food, housing, medical care, and heating? Not hard at all 12/01/2019 PHQ-2 Answer Date Recorded PHQ-2 Score 0 06/26/2021 [facility] of Occupat ional Health - Occupational Stress [...] Comments Blood Pressure 150/89 05/16/2023 2:41 PM FORESTRY SCIENTIST Pulse 111 05/16/2023 2:41 PM FORESTRY SCIENTIST Temperature 37.5 ??C (99.5 ??F) 05/16/2023 2:41 PM CS T Respiratory Rate 16 08/15/2022 12:16 PM CDT Oxygen Saturation 99% 08/15/2022 12:16 PM CDT Inhaled Oxygen Concentration - - Weight 56.7 kg (125 lb) 05/16/2023 2:41 PM FORESTRY SCIENTIST Height 160.3 cm (5' 3.11) 05/26/2022 9:30 AM CS T Body Mass Index 22.07 05/26/2022 9:30 AM FORESTRY SCIENTIST Plan of Treatment Health Maintenance Due Date [...] ED patients; some inpatients) 05/16/2023 4:34 PM FORESTRY SCIENTIST Injury Head Initial CT HEAD WITHOUT IV CONTRAST RAD - Semiurgent (Fast; most ED patients; some inpatients) 05/16/2023 4:29 PM FORESTRY SCIENTIST Injury Head Initial URINALYSIS WITH MICROSCOPIC Routine 05/16/2023 4:06 PM FORESTRY SCIENTIST Injury Head Initial BACTERIAL CULTURE, AEROBIC + SUSC, URINE Routine 05/16/2023 4:06 PM FORESTRY SCIENTIST Injury Head Initial CBC WITH DIFFERENTIAL, B Routine 05/16/2023 4:05 PM FORESTRY SCIENTIST Injury Head Initial MAGNESIUM, S Routine 05/16/2023 4:05 PM FORESTRY SCIENTIST Injury Head Initial PHOSPHORUS (INORGANIC), S Routine 05/16/2023 4:05 PM FORESTRY SCIENTIST Injury Head Initial ECG Routine 05/16/2023 3:50 PM FORESTRY SCIENTIST Injury Head Initial BASIC METABOLIC PANEL, S/P Routine 05/16/2023 3:35 PM FORESTRY SCIENTIST Injury Head Initial FERRITIN, S Routine 05/16/2023 1:35 PM FORESTRY SCIENTIST Injury Head Initial from Last 3 Months Results * DX Knee Left 4+ Views (05/16/2023 4:34 PM FORESTRY SCIENTIST) Anatomical Region Laterality Modality Lower Extremity, Knee, Muscu loskeletal RST LOS, Musculoskeletal ARZ LOS, Muskuloskeletal FLA LOS Left Digit al Radiography Impressions 05/16/2023 4:38 PM FORESTRY SCIENTIST Approximately 14.2 x 3.3 cm region of consolidation along the medial left knee, suggestive of hemorrhage, possibly due to medial collateral ligament damage. Narrative 05/16/2023 4:38 PM FORESTRY SCIENTIST EXAM: DX KNEE LEFT 4+ VIEWS COMPARISON: [...] Head without IV Contrast (05/16/2023 4:29 PM FORESTRY SCIENTIST) Anatomical Region Laterality Modality Head, Neuroradiology RST LOS , Neuroradiology ARZ LOS, Neuroradiology FLA LOS N/A Computed Tomography 05/16/2023 4:26 PM FORESTRY SCIENTIST Impressions 05/16/2023 4:55 PM FORESTRY SCIENTIST Cerebral atrophy and small vessel ischemic disease. Otherwise normal CT of the head without contrast. Narrative 05/16/2023 4:55 PM FORESTRY SCIENTIST EXAM: CT HEAD WITHOUT IV CONTRAST COMPARISON: [...] Aerobic + Susceptibility, Urine (05/16/2023 4:06 PM FORESTRY SCIENTIST) Pathologist [facility] Urine Culture No growth after 1 day of incubation. 05/18/2023 8:29 AM FORESTRY SCIENTIST [facility] Urine (Urine, Midstream) 05/16/2023 4:06 PM FORESTRY SCIENTIST 05/17/2023 1:48 PM FORESTRY SCIENTIST Comment:Specimen Source Site : Urine Zoe Hope M.D., M.S. LAB MICROBIOLOGY - GENERAL ORDERABLES [facility] [address] [place] [address], [facility] in [place] [address] [place] [address] * Urinalysis with Microscopic: Urine, Midstream (05/16/2023 4:06 PM FORESTRY SCIENTIST) Source Urine, Urine, Midstream 05/16/2023 4:45 PM FORESTRY SCIENTIST OWAT Clarity Clear Clear 05/16/2023 4:47 PM FORESTRY SCIENTIST OWAT Color Yellow 05/16/2023 4:45 PM FORESTRY SCIENTIST OWAT Comment: ----REFERENCE VALUE---- Colorless Yellow Ny Blood Negative Negative 05/16/2023 4:45 PM FORESTRY SCIENTIST OWAT Nitrite Negative Negative 05/16/2023 4:45 PM FORESTRY SCIENTIST OWAT Leukocyte Esterase Negative Negative 05/16/2023 4:45 PM FORESTRY SCIENTIST OWAT Protein Negative mg/dL 05/16/2023 4:45 PM FORESTRY SCIENTIST OWAT Comment: ----REFERENCE VALUE---- Negative Trace Glucose Negative Negative mg/dL 05/16/2023 4:45 PM FORESTRY SCIENTIST OWAT Ketone Negative Negative mg/dL 05/16/2023 4:45 PM FORESTRY SCIENTIST OWAT Bilirubin Negative Negative 05/16/2023 4:45 PM FORESTRY SCIENTIST OWAT pH 5.5 5.0 - 8.0 05/16/2023 4:45 PM FORESTRY SCIENTIST OWAT Specific Hector 1.005 1.001 - 1.035 05/16/2023 4:45 PM FORESTRY SCIENTIST OWAT Urobilinogen 0.2 0.2 - 1.0 mg/dL 05/16/2023 4:45 PM FORESTRY SCIENTIST OWAT White Blood Cells None Seen /hpf 05/16/2023 4:47 PM FORESTRY SCIENTIST OWAT Comment: ----REFERENCE VALUE---- Males: 0-3 Females: 0-10 Unknown: 0-10 Red Blood Cells None Seen 0 - 2 /hpf 4:47 PM FORESTRY SCIENTIST OWAT Hyaline Casts 1-3 /lpf 05/16/2023 4:47 PM FORESTRY SCIENTIST OWAT Urine (Urine, Midstream) 05/16/2023 4:06 PM FORESTRY SCIENTIST 05/16/2023 4:41 PM FORESTRY SCIENTIST Zoe Hope M.D., M.S. LAB URINE ORDERABLE S [facility] [address] [place] [address], [place] OWAT [facility] in [place] [address] [place] [address] * (ABNORMAL) CBC with Differential, Blood (05/16/2023 4:05 PM FORESTRY SCIENTIST) Hemoglobin 13.3 11.6 - 15.0 g/dL 05/16/2023 4:09 PM FORESTRY SCIENTIST OWAT Hematocrit 39.5 35.5 - 44.9 % 05/16/2023 4:09 PM FORESTRY SCIENTIST OWAT Erythrocytes 4.28 3.92 - 5.13 x10(12)/L 05/16/2023 4:09 PM FORESTRY SCIENTIST OWAT MCV 92.3 78.2 - 97.9 fL 05/16/2023 4:09 PM FORESTRY SCIENTIST OWAT RBC Distrib Width 12.2 12.2 - 16.1 % 05/16/2023 4:09 PM FORESTRY SCIENTIST OWAT Platelet Count 433(H) 157 - 371 x10(9)/L 05/16/2023 4:09 PM FORESTRY SCIENTIST OWAT Leukocytes 10.2(H) 3.4 - 9.6 x10(9)/L 05/16/2023 4:09 PM FORESTRY SCIENTIST OWAT Neutrophils 6.87(H) 1.56 - 6.45 x10(9)/L 05/16/2023 4:09 PM FORESTRY SCIENTIST OWAT Lymphocytes 2.46 0.95 - 3.07 x10(9)/L 05/16/2023 4:09 PM FORESTRY SCIENTIST OWAT Monocytes 0.70 0.26 - 0.81 x10(9)/L 05/16/2023 4:09 PM FORESTRY SCIENTIST OWAT Eosinophils 0.07 0.03 - 0.48 x10(9)/L 05/16/2023 4:09 PM FORESTRY SCIENTIST OWAT Basophils 0.05 0.01 - 0.08 x10(9)/L 05/16/2023 4:09 PM FORESTRY SCIENTIST OWAT Blood (Blood, Venous) 05/16/2023 4:05 PM FORESTRY SCIENTIST 05/16/2023 4:05 PM FORESTRY SCIENTIST Zoe Hope M.D., M.S. LAB BLOOD ADD-ON [facility] [address] [place] [address], [facility] OWAT [facility] [place] [address] [place] [address] * Phosphorus Inorganic (05/16/2023 4:05 PM FORESTRY SCIENTIST) Phosphorus (Inorganic), P 3.7 2.5 - 4.5 mg/dL 05/17/2023 3:17 PM FORESTRY SCIENTIST AUST Blood (Blood, Venous) 05/16/2023 4:05 PM FORESTRY SCIENTIST 05/17/2023 3:02 PM FORESTRY SCIENTIST Zoe Hope M.D., M.S. LAB BLOOD ADD-ON Performing Organization Address City/[facility]/ZIP Co de Phone Number [facility] [address] [place] [address], [place] A[place] [facility] [address] [place] [address] * Magnesium (05/16/2023 4:05 PM FORESTRY SCIENTIST) Magnesium, P 2.3 1.7 - 2.3 mg/dL 05/16/2023 4:17 PM FORESTRY SCIENTIST OWAT Blood (Blood, Venous) 05/16/2023 4:05 PM FORESTRY SCIENTIST 05/16/2023 4:05 PM FORESTRY SCIENTIST Zoe Hope M.D., M.S. LAB BLOOD ADD-ON Performing Organization Address City/[facility] Co de Phone Number [facility] [address] [place] [address], [place] OWAT [facility] in [place] [address] [place] [address] * ECG 12 Lead (05/16/2023 3:50 PM FORESTRY SCIENTIST) Ventricular Rate ECG/Min 92 BPM MUSE TN Interval 148 ms MUSE QRSD Interval 80 ms MUSE QT Interval 356 ms MUSE QTC Interval 440 ms MUSE P [place] 70 degrees MUSE R [place] 55 degrees MUSE T Wave [place] 36 degrees MUSE 05/16/2023 3:50 PM FORESTRY SCIENTIST 05/16/2023 4:23 PM FORESTRY SCIENTIST Impressions MUSE - 05/16/2023 4:23 PM FORESTRY SCIENTIST Normal sinus rhythm Normal ECG When compared [...] (ABNORMAL) Basic Metabolic Panel (05/16/2023 3:35 PM FORESTRY SCIENTIST) Potassium, P 4.3 3.6 - 5.2 mmol/L 05/16/2023 4:40 PM FORESTRY SCIENTIST OWAT Sodium, P 134(L) 135 - 145 mmol/L 05/16/2023 4:40 PM FORESTRY SCIENTIST OWAT Chloride, P 97(L) 98 - 107 mmol/L 05/16/2023 4:40 PM FORESTRY SCIENTIST OWAT Bicarbonate, P 24 22 - 29 mmol/L 05/16/2023 4:40 PM FORESTRY SCIENTIST OWAT Anion Gap, P 13 7 - 15 05/16/2023 4:40 PM FORESTRY SCIENTIST OWAT BUN (Blood Urea Nitrogen), P 16 6 - 21 mg/dL 05/16/2023 4:40 PM FORESTRY SCIENTIST OWAT Creatinine 0.81 0.59 - 1.04 mg/dL 05/16/2023 4:40 PM FORESTRY SCIENTIST OWAT Estimated GFR (eGFR) 75 >=60 mL/min/BSA 05/16/2023 4:40 PM FORESTRY SCIENTIST OWAT Comment: Estimated GFR calculated using the 2020 CKD_EPI creatinine equation. Calcium, Total, P 9.8 8.8 - 10.2 mg/dL 05/16/2023 4:40 PM FORESTRY SCIENTIST OWAT Glucose, P 102 70 - 140 mg/dL 05/16/2023 4:40 PM FORESTRY SCIENTIST OWAT Blood (Blood, Venous) 05/16/2023 3:35 PM FORESTRY SCIENTIST 05/16/2023 4:22 PM FORESTRY SCIENTIST Zoe Hope M.D., M.S. LAB BLOOD ADD-ON [facility] [address] [place] [address], [place] OW[place] [facility] [place] [address] [place] [address] * Ferritin (05/16/2023 1:35 PM FORESTRY SCIENTIST) Ferritin, S 192 11 - 328 mcg/L 05/17/2023 9:14 AM FORESTRY SCIENTIST OWAT Comment: Biotin has been identified by the shower maid as a potential interfering substance. Higher concentrations of biotin may be found in multivitamins, hair/nail supplements, and workout supplements. If the result does not match clinical observations, repeat testing after patient refrains from the use of supplements for at least 12 hours. Blood (Blood, Venous) 05/16/2023 1:35 PM FORESTRY SCIENTIST 05/16/2023 4:07 PM FORESTRY SCIENTIST Zoe Hope M.D., M.S. LAB BLOOD ADD-ON [facility] [address] [place] [address], [place] OW[place] [facility] [place] [address] [place] [address] from Last 3 Months Care Teams Retail Loan Officer Relationship Specialty Start Date End Date Tigre Preciado P.A.-C., P.A. PCP - General Family Medicine 10/11/19
--- OUTSIDE RECORDS SUMMARY | 2023-05-25 15:12 | XMS_ITS ---
Author Name Unknown Organization [facility] Address [address] [place] [address] Care Team Providers Care Pie Bakery Laborer Name Role Phone Unavailable Unavailable Unavailable Surgery Details Not on file Complications Check Surgery Details section. Procedure Estimated Blood Loss Check Surgery Details section. Procedure Findings Check Surgery Details section. Procedure Specimens Taken Check Surgery Details section.
--- OUTSIDE RECORDS SUMMARY | 2023-05-25 15:12 | XMS_ITS | Encounter Summary ---
Author Name Unknown Organization [facility] Address [address] [place] [address] Care Team Providers Care Purchasing Supervisor Name Role Phone Tigre Preciado P.A.-C., P.A. Primary Care Pr ovider Reason for Referral * Outpatient (Routine) - Authorized Specialty Diagnoses / Procedures Referred By Contac t Referred To Contact Tigre Preciado P.A.-C., P.A. [address] [place] [phone] [facility] Region Referral ID Status Reason Start Date Expiration Date V isits Requested Visits Authorized [id number] Authorized 05/25/2023 11/23/2024 1 1 Scheduling Instructions Nurse AWV Do not schedule prior to due date to ensure insurance coverage Visit: Medicare Annual Wellness Never done. PHYSICIAN * Outpatient (Routine) - Authorized Specialty Diagnoses / Procedures Referred By Contac t Referred To Contact Family Medicine Tigre Preciado P.A.-C., P.A. [address] [place] [phone] [facility] Region Referral ID Status Reason Start Date Expiration Date V isits Requested Visits Authorized [id number] Authorized 05/25/2023 11/23/2024 1 1 Scheduling Instructions Medicare annual provider visit/HCC gaps Do not schedule prior to due date to ensure insurance coverage Visit: Medicare Annual Wellness Never done. PHYSICIAN Encounter Details Date Type Department Care Team (Late st Contact Info) Description 05/25/2023 Orders Only [facility] PCP [facility] MNT Tigre Preciado P.A.-C., P.A. [address] [facility] [place] [phone] Social History Tobacco Use Types Packs/Day Years [...] Answer Date Recorded PHQ-2 Score 0 06/26/2021 [facility] of Occupat ional Health - [...] Type Priority Associated Diagnoses Orde r Schedule Family Medicine office visit (clinic) Outpatient Referral Routine Expected: 06/22/2023, Expires: 11/21/2023 Primary Care nurse visit (clinic) - [facility]; Medicare Annual Wellness Outpatient Referral Routine Expected: 06/22/2023, Expires: 11/21/2023 documented as of this encounter Visit Diagnoses Not on filedocumented in this encounter Additional Health Concerns Assessment Noted Time PHQ-9 Depression Total Score: 1 06/02/19 18 9:34 AM ER PHYSICIAN documented as of this encounter Care Teams Purchasing Supervisor Relationship Specialty Start Date End Date Tigre Preciado P.A.-C., P.A. PCP - General Family Medicine 10/11/19 documented as of this encounter
--- OUTSIDE RECORDS SUMMARY | 2023-05-25 15:12 | XMS_ITS | Encounter Summary ---
Author Name Unknown Organization [facility] Address [address] [place] [address] Care Team Providers Care Concrete Paver Name Role Phone Tigre Preciado P.A.-C., P.A. Primary Care Pr ovider Encounter Details Date Type Department Care Team (Late st Contact Info) Description 02/04/2023 Orders Only Department of Obstetrics and Gynecology, Division of Urogynecology in [place], [place] [address] [place] [phone] Shanice Rico APRN, C.N.P., D.N.P. [address] [place] [phone] Social History Tobacco Use Types Packs/Day Years [...] Answer Date Recorded PHQ-2 Score 0 06/26/2021 [facility] of Occupat ional Health - Occupational Stress [...] Total Score: 1 06/02/19 18 9:34 AM CUSTOMER CARE VOICE CONSULTANT documented as of this encounter Care Teams Concrete Paver Relationship Specialty Start Date End Date Tigre Preciado P.A.-C., P.A. PCP - General Family Medicine 10/11/19 documented as of this encounter
--- OUTSIDE RECORDS SUMMARY | 2023-05-25 15:12 | XMS_ITS | Encounter Summary ---
Author Name Unknown Organization [facility] Address [address] [place] [address] Care Team Providers Care Steward/Stewardess Railroad Dining Car Name Role Phone Tigre Preciado P.A.-C., P.A. Primary Care Pr ovider Reason for Visit * Outpatient (Routine) - Closed Specialty Diagnoses / Procedures Referred By Contac t Referred To Contact Diagnoses Injury Head Initial Procedures DX Knee Left 4+ Views DX Knee Left 3 Views Zoe Hope M.D., M.S. [address] [place] [phone] [facility] Region Referral ID Status Reason Start Date Expiration Date Visits Re quested Visits Authorized [id number] Closed 05/16/2023 05/15/2024 1 1 Encounter Details Date Type Department Care Team (Latest Contact Info) Description 05/16/2023 3:57 PM PLASTIC MAKER - 05/16/2023 11:59 PM PLASTIC MAKER Hospital Encounter Department of Radiology in [place], [place] [address] [place] [address] Zoe Hope M.D., M.S. [address] [place] [address] Injury Head Initial Discharge Disposition: [...] Answer Date Recorded PHQ-2 Score 0 06/26/2021 [employer] of Occupat ional Health - Occupational Stress [...] MIGRAINE UNRESOLVED. 9 tablet 5 07/31/2022 vitamin A,C,Y-wadpgo-apqbcccp (OCUVITE W/LUTEIN) 1,000 Unit-200 mg-60 Unit-2 mg tablet Take 1 tablet by mouth as needed. 0 azithromycin (ZITHROMAX) 250 mg tablet Take 1 tablet by mouth as directed. BRONCHITIS 0 08/11/2022 Paxlovid 300 mg (150 mg x 2)-100 mg dose pack Take 3 tablets by mouth 2 (two) times a day. 0 05/10/2023 zoledronic xtjk-xtmqvvoL-bblpf (RECLAST) 5 mg/100 mL piggyback Infuse 5 mg into a venous catheter once. Once yearly- last dose 06/10/22 0 documented as of this encounter Plan of Treatment Not on file documented as of this encounter Procedures Procedure Name Priority Date/Time Associated Diagnosis Comments DX KNEE LEFT 4+ VIEWS RAD - Semiurgent (Fast; most ED patients; some inpatients) 05/16/2023 4:34 PM PLASTIC MAKER Injury Head Initial documented in this encounter Results * DX Knee Left 4+ Views (05/16/2023 4:34 PM PLASTIC MAKER) Anatomical Region Laterality Modality Lower Extremity, Knee, Muscu loskeletal RST LOS, Musculoskeletal ARZ LOS, Muskuloskeletal FLA LOS Left Digit al Radiography Impressions 05/16/2023 4:38 PM PLASTIC MAKER Approximately 14.2 x 3.3 cm region of consolidation along the medial left knee, suggestive of hemorrhage, possibly due to medial collateral ligament damage. Narrative 05/16/2023 4:38 PM PLASTIC MAKER EXAM: DX KNEE LEFT 4+ VIEWS COMPARISON: [...] Total Score: 1 06/02/19 18 9:34 AM PLASTIC MAKER documented as of this encounter Care Teams Steward/Stewardess Railroad Dining Car Relationship Specialty Start Date End Date Tigre Preciado P.A.-C., P.A. PCP - General Family Medicine 10/11/19 documented as of this encounter
--- OUTSIDE RECORDS SUMMARY | 2023-05-25 15:12 | XMS_ITS | Encounter Summary ---
Author Name Unknown Organization [facility] Address [address] [place] [address] Care Team Providers Care Face Boss Name Role Phone Tigre Preciado P.A.-C., P.A. Primary Care Pr ovider Reason for Visit * Reason Onset Date Comments Communication 02/03/2023 Encounter Details Date Type Department Care Team (Latest Contact Info) Description 02/03/2023 Clinical Communication Department of Obstetrics and Gynecology, Division of Urogynecology in [place], [place] [address] [place] [phone] Shanice Rico, ORION, C.N.P., D.N.P. [address] [place] [phone] Communication Social History Tobacco Use Types Packs/Day [...] Answer Date Recorded PHQ-2 Score 0 06/26/2021 [facility] of Occupat ional Health - Occupational Stress [...] prescription to Premarin cream andsent it to [facility] in [place], [place]. * Telephone Encounter - Em Almazan [...] Total Score: 1 06/02/19 18 9:34 AM PHARM TECH documented as of this encounter Care Teams Face Boss Relationship Specialty Start Date End Date Tigre Preciado P.A.-C., P.A. PCP - General Family Medicine 10/11/19 documented as of this encounter
--- OUTSIDE RECORDS SUMMARY | 2023-05-25 15:12 | XMS_ITS | Encounter Summary ---
Author Name Unknown Organization [facility] Address [address] [place] [address] Care Team Providers Care Special Order Jeweler Name Role Phone Tigre Preciado P.A.-C., P.A. Primary Care Pr ovider Encounter Details Date Type Department Care Team (Late st Contact Info) Description 11/24/2022 [facility] [address] [place] [address] Kanchan Granda, C.N.P. [address] [place] [phone] Urinary Tract Infection Site Not Specified (Primary [...] Answer Date Recorded PHQ-2 Score 0 06/26/2021 [facility] [place] of Occupat ional Health - Occupational Stress [...] Total Score: 1 06/02/19 18 9:34 AM GENERAL COUNSEL documented as of this encounter Care Teams Special Order Jeweler Relationship Specialty Start Date End Date Tigre Preciado P.A.-C., P.A. PCP - General Family Medicine 10/11/19 documented as of this encounter
--- OUTSIDE RECORDS SUMMARY | 2023-05-25 15:12 | XMS_ITS | Encounter Summary ---
Author Name Unknown Organization [facility] Address [address] [place] [address] Care Team Providers Care Keno Terminal Operator Name Role Phone Tigre Preciado P.A.-C., P.A. Primary Care Pr ovider Reason for Referral * Outpatient (Routine) - Authorized Specialty Diagnoses / Procedures Referred By Contac t Referred To Contact Obstetrics and Gynecology Diagnoses Cystocele Shanice Rico APRN, C.N.P., D.N.P. [address] [place] [phone] [facility] Referral ID Status Reason Start Date Expiration Date V isits Requested Visits Authorized [id number] Authorized 01/26/2023 01/26/2024 1 1 Scheduling Instructions Wants to coordinate with other appointments Reason for Visit * Outpatient (Routine) - Closed Specialty Diagnoses / Procedures Referred By Contac t Referred To Contact Gynecology Diagnoses Cystocele Urinary Tract Infection Site Not Specified Personal History Of Other Diseases Of Urinary System Postmenopausal Atrophic Vaginitis Kanchan Granda, C.N.P. [address] [place] [address] [facility] Referral ID Status Reason Start Date Expiration Date Visits Re quested Visits Authorized [id number] Closed 11/27/2022 11/27/2023 1 1 Encounter Details Date Type Department Care Team (Latest Contact Info) Description 01/26/2023 9:00 AM CDT Comprehensive Visit Department of Obstetrics and Gynecology, Division of Urogynecology in [place], [place] [address] [place] [address] Shanice Rico APRN, C.N.P., D.N.P. 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 Prescription for vaginal estrogen sent to [facility] pharmacy in [place], [place]. If symptoms are not improved with [...] Total Score: 1 06/02/19 18 9:34 AM HIGH SCHOOL COUNSELOR documented as of this encounter Care Teams Keno Terminal Operator Relationship Specialty Start Date End Date Tigre Preciado P.A.-C., P.A. PCP - General Family Medicine 10/11/19 documented as of this encounter
--- OUTSIDE RECORDS SUMMARY | 2023-05-25 15:12 | XMS_ITS | Encounter Summary ---
Author Name Unknown Organization [facility] Address [address] [place] [address] Care Team Providers Care Packing Machine Operator Name Role Phone Tigre Preciado P.A.-C., P.A. Primary Care Pr ovider Encounter Details Date Type Department Care Team (Late st Contact Info) Description 02/05/2023 Orders Only Department of Obstetrics and Gynecology, Division of Urogynecology in [place], [place] [address] [place] [phone] Shanice Rico APRN, C.N.P., D.N.P. [address] [place] [phone] Social History Tobacco Use Types Packs/Day Years [...] PHQ-2 Score 0 06/26/2021 [facility] [place] of Occupat ional Health - Occupational Stress [...] Total Score: 1 06/02/19 18 9:34 AM FEED RESEARCH TECHNICIAN documented as of this encounter Care Teams Packing Machine Operator Relationship Specialty Start Date End Date Tigre Preciado P.A.-C., P.A. PCP - General Family Medicine 10/11/19 documented as of this encounter
--- OUTSIDE RECORDS SUMMARY | 2023-05-25 15:12 | XMS_ITS | Encounter Summary ---
Author Name Unknown Organization [facility] Address [address] [place] [address] Care Team Providers Care Veterinary Medicine Doctor Name Role Phone Tigre Preciado P.A.-C., P.A. Primary Care Pr ovider Reason for Visit * Reason Onset Date Comments Head Injury 05/16/2023 Knee Injury 05/16/2023 Encounter Details Date Type Department Care Team (Late st Contact Info) Description 05/16/2023 Nurse Triage Department of Family Medicine, [facility], in [place], [place] [address] [place] [address] Valerie Wadsworth, R.N. Head Injury; [...] Answer Date Recorded PHQ-2 Score 0 06/26/2021 [facility] of Occupat ional Health - Occupational Stress [...] Valerie Wadsworth, REldaN. - 05/16/2023 2:23 PM VEGETABLE FARM MANAGER Chief Complaint / Reason for Call Patient is a 78 y.o. female and calling regarding Head Injury and Knee Injury Assessment Concern: [place] dizzy when she got up to go [...] [2] swelling or bruise Protocols used: Head Umrsnc-VPOFL-GH Care Advice Patient/Caregiver understands and will follow care advice?: Yes, able to teach back SEE HCP (OR PCP TRIAGE) WITHIN 4 HOURS: * IF OFFICE WILL BE OPEN: You need to be seen within the next 3 or 4 hours. Call your doctor (or COMPUTER FIELD TECHNICIAN/PA) now or as soon as the office opens. CALL BACK IF: * You become worse CARE ADVICE given per Head Injury (Adult) guideline. TABLE FARM MANAGER documented in this encounter Plan of Treatment Not on file documented as of this encounter Visit Diagnoses Not on filedocumented in this encounter Additional Health Concerns Assessment Noted Time PHQ-9 Depression Total Score: 1 06/02/19 18 9:34 AM VEGETABLE FARM MANAGER documented as of this encounter Care Teams Veterinary Medicine Doctor Relationship Specialty Start Date End Date Tigre Preciado P.A.-C., P.A. PCP - General Family Medicine 10/11/19 documented as of this encounter
--- OUTSIDE RECORDS SUMMARY | 2023-05-25 15:12 | XMS_ITS | Referral Summary ---
Author Name Unknown Organization [facility] Address [address] [place] [address] Care Team Providers Care Safety Lamp Keeper Name Role Phone Tigre Preciado P.A.-C., P.A. Primary Care Pr ovider Source Comments Patient records contain information from all sites at [facility]. For routine questions regarding patient records, call [phone] during business hours, M-F 8:00 AM - 5:00 PM Central Time. Record requests for emergency care only can be directed to [phone] at any time.[facility] Encounters Date Type Department Care Team Description 05/25/2023 Orders Only [facility] Tigre Preciado P.A.-C., P.A. 05/16/2023 Clinical Communication Department of Orthopedic Surgery in [place], [place] [address] [place] [phone] Sebastián Esteban M.D. 05/16/2023 3:57 PM RESEARCH CHIEF ENGINEER - 05/16/2023 11:59 PM RESEARCH CHIEF ENGINEER Hospital Encounter Department of Radiology in [place], [place] [address] [address] Zoe Hope M.D., M.S. Injury Head Initial Discharge Disposition: Home or Self Care 05/16/2023 3:56 PM RESEARCH CHIEF ENGINEER Hospital Encounter Department of Radiology in [place], [place] [address] [place] [phone] Zoe Hope M.D., M.S. Injury Head Initial Discharge Disposition: Home or Self Care 05/16/2023 3:00 PM RESEARCH CHIEF ENGINEER Office Visit Department of Family Medicine, [facility], in [place], [place] [address] [place] [phone] Zoe Hope M.D., M.S. Injury Head Initial (Primary Dx); History Of Falling 05/16/2023 Nurse Triage Department of [facility], [facility], in [place], [place] [address] [address] Valerie Wadsworth R.N. Head Injury; Knee Injury [...] mg by mouth daily. 0 Active vitamin A,C,B-mhfhro-jovlg als (OCUVITE W/LUTEIN) 1,000 Unit-200 mg-60 Unit-2 [...] wheezing. 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 We also discussed management options with vaginal [...] Comments Blood Pressure 150/89 05/16/2023 2:41 PM RESEARCH CHIEF ENGINEER Pulse 111 05/16/2023 2:41 PM RESEARCH CHIEF ENGINEER Temperature 37.5 ??C (99.5 ??F) 05/16/2023 2:41 PM CS T Respiratory Rate 16 08/15/2022 12:16 PM CDT Oxygen Saturation 99% 08/15/2022 12:16 PM CDT Inhaled Oxygen Concentration - - Weight 56.7 kg (125 lb) 05/16/2023 2:41 PM RESEARCH CHIEF ENGINEER Height 160.3 cm (5' 3.11) 05/26/2022 9:30 AM CS T Body Mass Index 22.07 05/26/2022 9:30 AM RESEARCH CHIEF ENGINEER Plan of Treatment Not on file Procedures Procedure Name Priority Date/Time Associated Diagnosis Comments DX KNEE LEFT 4+ VIEWS RAD - Semiurgent (Fast; most ED patients; some inpatients) 05/16/2023 4:34 PM RESEARCH CHIEF ENGINEER Injury Head Initial CT HEAD WITHOUT IV CONTRAST RAD - Semiurgent (Fast; most ED patients; some inpatients) 05/16/2023 4:29 PM RESEARCH CHIEF ENGINEER Injury Head Initial URINALYSIS WITH MICROSCOPIC Routine 05/16/2023 4:06 PM RESEARCH CHIEF ENGINEER Injury Head Initial BACTERIAL CULTURE, AEROBIC + SUSC, URINE Routine 05/16/2023 4:06 PM RESEARCH CHIEF ENGINEER Injury Head Initial CBC WITH DIFFERENTIAL, B Routine 05/16/2023 4:05 PM RESEARCH CHIEF ENGINEER Injury Head Initial MAGNESIUM, S Routine 05/16/2023 4:05 PM RESEARCH CHIEF ENGINEER Injury Head Initial PHOSPHORUS (INORGANIC), S Routine 05/16/2023 4:05 PM RESEARCH CHIEF ENGINEER Injury Head Initial ECG Routine 05/16/2023 3:50 PM RESEARCH CHIEF ENGINEER Injury Head Initial BASIC METABOLIC PANEL, S/P Routine 05/16/2023 3:35 PM RESEARCH CHIEF ENGINEER Injury Head Initial FERRITIN, S Routine 05/16/2023 1:35 PM RESEARCH CHIEF ENGINEER Injury Head Initial from Last 3 Months Results * DX Knee Left 4+ Views (05/16/2023 4:34 PM RESEARCH CHIEF ENGINEER) Anatomical Region Laterality Modality Lower Extremity, Knee, Muscu loskeletal RST LOS, Musculoskeletal ARZ LOS, Muskuloskeletal FLA LOS Left Digit al Radiography Impressions 05/16/2023 4:38 PM RESEARCH CHIEF ENGINEER Approximately 14.2 x 3.3 cm region of consolidation along the medial left knee, suggestive of hemorrhage, possibly due to medial collateral ligament damage. Narrative 05/16/2023 4:38 PM RESEARCH CHIEF ENGINEER EXAM: DX KNEE LEFT 4+ VIEWS COMPARISON: [...] Head without IV Contrast (05/16/2023 4:29 PM RESEARCH CHIEF ENGINEER) Anatomical Region Laterality Modality Head, Neuroradiology RST LOS , Neuroradiology ARZ LOS, Neuroradiology FLA LOS N/A Computed Tomography 05/16/2023 4:26 PM RESEARCH CHIEF ENGINEER Impressions 05/16/2023 4:55 PM RESEARCH CHIEF ENGINEER Cerebral atrophy and small vessel ischemic disease. Otherwise normal CT of the head without contrast. Narrative 05/16/2023 4:55 PM RESEARCH CHIEF ENGINEER EXAM: CT HEAD WITHOUT IV CONTRAST COMPARISON: [...] Aerobic + Susceptibility, Urine (05/16/2023 4:06 PM RESEARCH CHIEF ENGINEER) Urine Culture No growth after 1 day of incubation. 05/18/2023 8:29 AM RESEARCH CHIEF ENGINEER MKTO Urine (Urine, Midstream) 05/16/2023 4:06 PM RESEARCH CHIEF ENGINEER 05/17/2023 1:48 PM RESEARCH CHIEF ENGINEER Comment:Specimen Source Site : Urine Zoe Hope M.D., M.S. LAB MICROBIOLOGY - GENERAL ORDERABLES [facility] [address] [place] [address], [place] MKTO [facility] in [place] [address] [place] [address] * Urinalysis with Microscopic: Urine, Midstream (05/16/2023 4:06 PM RESEARCH CHIEF ENGINEER) Source Urine, Urine, Midstream 05/16/2023 4:45 PM RESEARCH CHIEF ENGINEER OWAT Clarity Clear Clear 05/16/2023 4:47 PM RESEARCH CHIEF ENGINEER OWAT Color Yellow 05/16/2023 4:45 PM RESEARCH CHIEF ENGINEER OWAT Comment: ----REFERENCE VALUE---- Colorless Yellow Ny Blood Negative Negative 05/16/2023 4:45 PM RESEARCH CHIEF ENGINEER OWAT Nitrite Negative Negative 05/16/2023 4:45 PM RESEARCH CHIEF ENGINEER OWAT Leukocyte Esterase Negative Negative 05/16/2023 4:45 PM RESEARCH CHIEF ENGINEER OWAT Protein Negative mg/dL 05/16/2023 4:45 PM RESEARCH CHIEF ENGINEER OWAT Comment: ----REFERENCE VALUE---- Negative Trace Glucose Negative Negative mg/dL 05/16/2023 4:45 PM RESEARCH CHIEF ENGINEER OWAT Ketone Negative Negative mg/dL 05/16/2023 4:45 PM RESEARCH CHIEF ENGINEER OWAT Bilirubin Negative Negative 05/16/2023 4:45 PM RESEARCH CHIEF ENGINEER OWAT pH 5.5 5.0 - 8.0 05/16/2023 4:45 PM RESEARCH CHIEF ENGINEER OWAT Specific [place] 1.005 1.001 - 1.035 05/16/2023 4:45 PM RESEARCH CHIEF ENGINEER OWAT Urobilinogen 0.2 0.2 - 1.0 mg/dL 05/16/2023 4:45 PM RESEARCH CHIEF ENGINEER OWAT White Blood Cells None Seen /hpf 05/16/2023 4:47 PM RESEARCH CHIEF ENGINEER OWAT Comment: ----REFERENCE VALUE---- Males: 0-3 Females: 0-10 Unknown: 0-10 Red Blood Cells None Seen 0 - 2 /hpf 4:47 PM RESEARCH CHIEF ENGINEER OWAT Hyaline Casts 1-3 /lpf 05/16/2023 4:47 PM RESEARCH CHIEF ENGINEER OWAT Urine (Urine, Midstream) 05/16/2023 4:06 PM RESEARCH CHIEF ENGINEER 05/16/2023 4:41 PM RESEARCH CHIEF ENGINEER Zoe Hope M.D. M.S. LAB URINE ORDERABLE S [facility] [address] [place] [address], [place] OW[place] [facility] in [place] [address] [place] [address] * (ABNORMAL) CBC with Differential, Blood (05/16/2023 4:05 PM RESEARCH CHIEF ENGINEER) Hemoglobin 13.3 11.6 - 15.0 g/dL 05/16/2023 4:09 PM RESEARCH CHIEF ENGINEER OWAT Hematocrit 39.5 35.5 - 44.9 % 05/16/2023 4:09 PM RESEARCH CHIEF ENGINEER OWAT Erythrocytes 4.28 3.92 - 5.13 x10(12)/L 05/16/2023 4:09 PM RESEARCH CHIEF ENGINEER OWAT MCV 92.3 78.2 - 97.9 fL 05/16/2023 4:09 PM RESEARCH CHIEF ENGINEER OWAT RBC Distrib Width 12.2 12.2 - 16.1 % 05/16/2023 4:09 PM RESEARCH CHIEF ENGINEER OWAT Platelet Count 433(H) 157 - 371 x10(9)/L 05/16/2023 4:09 PM RESEARCH CHIEF ENGINEER OWAT Leukocytes 10.2(H) 3.4 - 9.6 x10(9)/L 05/16/2023 4:09 PM RESEARCH CHIEF ENGINEER OWAT Neutrophils 6.87(H) 1.56 - 6.45 x10(9)/L 05/16/2023 4:09 PM RESEARCH CHIEF ENGINEER OWAT Lymphocytes 2.46 0.95 - 3.07 x10(9)/L 05/16/2023 4:09 PM RESEARCH CHIEF ENGINEER OWAT Monocytes 0.70 0.26 - 0.81 x10(9)/L 05/16/2023 4:09 PM RESEARCH CHIEF ENGINEER OWAT Eosinophils 0.07 0.03 - 0.48 x10(9)/L 05/16/2023 4:09 PM RESEARCH CHIEF ENGINEER OWAT Basophils 0.05 0.01 - 0.08 x10(9)/L 05/16/2023 4:09 PM RESEARCH CHIEF ENGINEER OWAT Blood (Blood, Venous) 05/16/2023 4:05 PM RESEARCH CHIEF ENGINEER 05/16/2023 4:05 PM RESEARCH CHIEF ENGINEER Zoe Hope M.D., M.S. LAB BLOOD ADD-ON [facility] [address] [facility] [place] [address], [place] OW[place] [facility] [place] [address] [place] [address] * Phosphorus Inorganic (05/16/2023 4:05 PM RESEARCH CHIEF ENGINEER) Phosphorus (Inorganic), P 3.7 2.5 - 4.5 mg/dL 05/17/2023 3:17 PM RESEARCH CHIEF ENGINEER AUST Blood (Blood, Venous) 05/16/2023 4:05 PM RESEARCH CHIEF ENGINEER 05/17/2023 3:02 PM RESEARCH CHIEF ENGINEER Zoe Hope M.D., M.S. LAB BLOOD ADD-ON Performing Organization Address City/[facility] Co de Phone Number [facility] [address] [place] [address], [facility] AUST [facility] - [facility] [address] [place] [address] * Magnesium (05/16/2023 4:05 PM RESEARCH CHIEF ENGINEER) Magnesium, P 2.3 1.7 - 2.3 mg/dL 05/16/2023 4:17 PM RESEARCH CHIEF ENGINEER OWAT Blood (Blood, Venous) 05/16/2023 4:05 PM RESEARCH CHIEF ENGINEER 05/16/2023 4:05 PM RESEARCH CHIEF ENGINEER Zoe Hope M.D., M.S. LAB BLOOD ADD-ON Performing Organization Address City/[facility]/ZIP Co de Phone Number [facility] [address] [place] [address], [place] OW[place] [facility] [place] [address] [place] [address] * ECG 12 Lead (05/16/2023 3:50 PM RESEARCH CHIEF ENGINEER) Ventricular Rate ECG/Min 92 BPM MUSE VA Interval 148 ms MUSE QRSD Interval 80 ms MUSE QT Interval 356 ms MUSE QTC Interval 440 ms MUSE P [place] 70 degrees MUSE R [place] 55 degrees MUSE T Wave [place] 36 degrees MUSE 05/16/2023 3:50 PM RESEARCH CHIEF ENGINEER 05/16/2023 4:23 PM RESEARCH CHIEF ENGINEER Impressions MUSE - 05/16/2023 4:23 PM RESEARCH CHIEF ENGINEER Normal sinus rhythm Normal ECG When compared [...] (ABNORMAL) Basic Metabolic Panel (05/16/2023 3:35 PM RESEARCH CHIEF ENGINEER) Potassium, P 4.3 3.6 - 5.2 mmol/L 05/16/2023 4:40 PM RESEARCH CHIEF ENGINEER OWAT Sodium, P 134(L) 135 - 145 mmol/L 05/16/2023 4:40 PM RESEARCH CHIEF ENGINEER OWAT Chloride, P 97(L) 98 - 107 mmol/L 05/16/2023 4:40 PM RESEARCH CHIEF ENGINEER OWAT Bicarbonate, P 24 22 - 29 mmol/L 05/16/2023 4:40 PM RESEARCH CHIEF ENGINEER OWAT Anion Gap, P 13 7 - 15 05/16/2023 4:40 PM RESEARCH CHIEF ENGINEER OWAT BUN (Blood Urea Nitrogen), P 16 6 - 21 mg/dL 05/16/2023 4:40 PM RESEARCH CHIEF ENGINEER OWAT Creatinine 0.81 0.59 - 1.04 mg/dL 05/16/2023 4:40 PM RESEARCH CHIEF ENGINEER OWAT Estimated GFR (eGFR) 75 >=60 mL/min/BSA 05/16/2023 4:40 PM RESEARCH CHIEF ENGINEER OWAT Comment: Estimated GFR calculated using the 2020 CKD_EPI creatinine equation. Calcium, Total, P 9.8 8.8 - 10.2 mg/dL 05/16/2023 4:40 PM RESEARCH CHIEF ENGINEER OWAT Glucose, P 102 70 - 140 mg/dL 05/16/2023 4:40 PM RESEARCH CHIEF ENGINEER OWAT Blood (Blood, Venous) 05/16/2023 3:35 PM RESEARCH CHIEF ENGINEER 05/16/2023 4:22 PM RESEARCH CHIEF ENGINEER Zoe Hope M.D., M.S. LAB BLOOD ADD-ON Performing Organization Address [facility] Co de Phone Number [facility] [address], [place] [address], [facility] OWAT [facility] [place] [address] [place] [address] * Ferritin (05/16/2023 1:35 PM RESEARCH CHIEF ENGINEER) Ferritin, S 192 11 - 328 mcg/L 05/17/2023 9:14 AM RESEARCH CHIEF ENGINEER OWAT Comment: Biotin has been identified by the street openings inspector as a potential interfering substance. Higher concentrations of biotin may be found in multivitamins, hair/nail supplements, and workout supplements. If the result does not match clinical observations, repeat testing after patient refrains from the use of supplements for at least 12 hours. Blood (Blood, Venous) 05/16/2023 1:35 PM RESEARCH CHIEF ENGINEER 05/16/2023 4:07 PM RESEARCH CHIEF ENGINEER Zoe Hope M.D., M.S. LAB BLOOD ADD-ON Performing Organization Address City/[facility]/ZIP Co de Phone Number [facility] [address] [place] [address], [place] OW[place] [facility] [place] [address], [place] [address] from Last 3 Months Care Teams Safety Lamp Keeper Relationship Specialty Start Date End Date Tigre Preciado P.A.-C., P.A. PCP - General Family Medicine 10/11/19
--- OUTSIDE RECORDS SUMMARY | 2023-05-25 15:12 | XMS_ITS | Encounter Summary ---
Author Name Unknown Organization [facility] Address [address] [place] [address] Care Team Providers Care Long Term Acute Care Registered Nurse Name Role Phone Tigre Preciado P.A.-C., P.A. Primary Care Pr ovider Reason for Referral * Outpatient (Routine) - Closed Specialty Diagnoses / Procedures Referred By Contac t Referred To Contact Gynecology Diagnoses Cystocele Urinary Tract Infection Site Not Specified Personal History Of Other Diseases Of Urinary System Postmenopausal Atrophic Vaginitis Kanchan Granda, C.N.P. [address] [place] [address] [facility] Referral ID Status Reason Start Date Expiration Date Visits Re quested Visits Authorized [id number] Closed 11/27/2022 11/27/2023 1 1 Encounter Details Date Type Department Care Team (Late st Contact Info) Description 11/26/2022 [facility] [address] [place] [address] Kanchan Granda, C.N.P. [address] [place] [address] Urinary Tract Infection Site Not [...] Answer Date Recorded PHQ-2 Score 0 06/26/2021 [facility] - Occupational Stress Questionnaire [...] Total Score: 1 06/02/19 18 9:34 AM FLAT KNITTER HELPER documented as of this encounter Care Teams Long Term Acute Care Registered Nurse Relationship Specialty Start Date End Date Tigre Preciado P.A.-C., P.A. PCP - General Family Medicine 10/11/19 documented as of this encounter
--- OUTSIDE RECORDS SUMMARY | 2023-05-25 15:12 | XMS_ITS | Encounter Summary ---
Author Name Unknown Organization [facility] Address [address] [place] [address] Care Team Providers Care Anime Artist Name Role Phone Tigre Preciado P.A.-C., P.A. Primary Care Pr ovider Reason for Referral * MRI/CAT/PET Scan (Routine) - Closed Specialty Diagnoses / Procedures Referred By Treva field Referred To Contact Radiology Diagnoses Injury Head Initial Procedures CT Head without IV Contrast Zoe Hope M.D., M.S. [address] [place] [address] [facility] Region Referral ID Status Reason Start Date Expiration Date Visits Re quested Visits Authorized [id number] Closed 05/16/2023 05/15/2024 1 1 FITTER SUPERVISOR MAINTENANCE Reason for Visit * MRI/CAT/PET Scan (Routine) - Closed Specialty Diagnoses / Procedures Referred By Treva field Referred To Contact Radiology Diagnoses Injury Head Initial Procedures CT Head without IV Contrast Zoe Hope M.D., M.S. [address] [place] [address] [facility] Region Referral ID Status Reason Start Date Expiration Date Visits Re quested Visits Authorized [id number] Closed 05/16/2023 05/15/2024 1 1 Encounter Details Date Type Department Care Team (Latest Contact Info) Description 05/16/2023 3:56 PM PIPE FITTER SUPERVISOR MAINTENANCE Hospital Encounter Department of Radiology in [place], [place] [address] [place] [address] Zoe Hope M.D., M.S. [address] [place] [address] Injury Head Initial Discharge Disposition: [...] Answer Date Recorded PHQ-2 Score 0 06/26/2021 [facility] of Occupat ional Health - Occupational [...] MIGRAINE UNRESOLVED. 9 tablet 5 07/31/2022 vitamin A,C,S-rxoxhi-cisznfsn (OCUVITE W/LUTEIN) 1,000 Unit-200 mg-60 Unit-2 mg tablet Take 1 tablet by mouth as needed. 0 azithromycin (ZITHROMAX) 250 mg tablet Take 1 tablet by mouth as directed. BRONCHITIS 0 08/11/2022 Paxlovid 300 mg (150 mg x 2)-100 mg dose pack Take 3 tablets by mouth 2 (two) times a day. 0 05/10/2023 zoledronic hdcv-orpyslrO-ylhev (RECLAST) 5 mg/100 mL piggyback Infuse 5 mg into a venous catheter once. Once yearly- last dose 06/10/22 0 documented as of this encounter Plan of Treatment Not on file documented as of this encounter Procedures Procedure Name Priority Date/Time Associated Diagnosis Comments CT HEAD WITHOUT IV CONTRAST RAD - Semiurgent (Fast; most ED patients; some inpatients) 05/16/2023 4:29 PM PIPE FITTER SUPERVISOR MAINTENANCE Injury Head Initial documented in this encounter Results * CT Head without IV Contrast (05/16/2023 4:29 PM PIPE FITTER SUPERVISOR MAINTENANCE) Anatomical Region Laterality Modality Head, Neuroradiology RST LOS , Neuroradiology ARZ LOS, Neuroradiology FLA LOS N/A Computed Tomography 05/16/2023 4:26 PM PIPE FITTER SUPERVISOR MAINTENANCE Impressions 05/16/2023 4:55 PM PIPE FITTER SUPERVISOR MAINTENANCE Cerebral atrophy and small vessel ischemic disease. Otherwise normal CT of the head without contrast. Narrative 05/16/2023 4:55 PM PIPE FITTER SUPERVISOR MAINTENANCE EXAM: CT HEAD WITHOUT IV CONTRAST COMPARISON: [...] Total Score: 1 06/02/19 18 9:34 AM PIPE FITTER SUPERVISOR MAINTENANCE documented as of this encounter Care Teams Anime Artist Relationship Specialty Start Date End Date Tigre Preciado P.A.-C., P.A. PCP - General Family Medicine 10/11/19 documented as of this encounter
--- OUTSIDE RECORDS SUMMARY | 2023-05-25 15:12 | XMS_ITS | Encounter Summary ---
Author Name Unknown Organization [facility] Address [address] [place] [address] Care Team Providers Care Stone Hand Name Role Phone Tigre Preciado P.A.-C., P.A. Primary Care Pr ovider Reason for Referral * Outpatient (Routine) - Authorized Specialty Diagnoses / Procedures Referred By Contac t Referred To Contact Diagnoses Injury Head Initial Procedures ECG 12 Lead Zoe Hope M.D., M.S. [address] [place] [address] [facility] Region Referral ID Status Reason Start Date Expiration Date V isits Requested Visits Authorized [id number] Authorized 05/16/2023 05/15/2024 1 1 ATIENT SERVICES DIRECTOR * MRI/CAT/PET Scan (Routine) - Closed Specialty Diagnoses / Procedures Referred By Contac t Referred To Contact Radiology Diagnoses Injury Head Initial Procedures CT Head without IV Contrast Zoe Hope M.D., M.S. [address] [place] [address] [facility] Region Referral ID Status Reason Start Date Expiration Date Visits Re quested Visits Authorized [id number] Closed 05/16/2023 05/15/2024 1 1 ATIENT SERVICES DIRECTOR Reason for Visit * Reason Comments Head Injury Knee Injury * Appointment Request (Routine) - Closed Specialty Diagnoses / Procedures Referred By Treva field Referred To Contact Family Medicine Referral ID Status Reason Start Date Expiration Date Visits Re quested Visits Authorized [id number] Closed 05/16/2023 05/15/2024 1 1 Encounter Details Date Type Department Care Team (Late st Contact Info) Description 05/16/2023 3:00 PM OUTPATIENT SERVICES DIRECTOR Office Visit Department of Family Medicine, [facility], in [place], [place] [address] [place] [address] Zoe Hope M.D., M.S. [address] [place] [phone] Injury Head Initial (Primary Dx); History Of [...] Answer Date Recorded PHQ-2 Score 0 06/26/2021 [facility] [place] of Occupat ional Health - Occupational Stress [...] Comments Blood Pressure 150/89 05/16/2023 2:41 PM OUTPATIENT SERVICES DIRECTOR Pulse 111 05/16/2023 2:41 PM OUTPATIENT SERVICES DIRECTOR Temperature 37.5 ??C (99.5 ??F) 05/16/2023 2:41 PM CS T Respiratory Rate - - Oxygen Saturation - - Inhaled Oxygen Concentration - - Weight 56.7 kg (125 lb) 05/16/2023 2:41 PM OUTPATIENT SERVICES DIRECTOR Height - - Body Mass Index 22.07 05/26/2022 9:30 AM OUTPATIENT SERVICES DIRECTOR documented in this encounter Patient Instructions * Patient Instructions* Zoe Hope M.D., M.S. - 05/16/2023 3:00 PM OUTPATIENT SERVICES DIRECTOR -recommend considering TTE or holter to rule out ardiac etiology given syncopal episode. ATIENT SERVICES DIRECTOR documented in this encounter Progress Notes * [...] has an appointment with her PCP at [facility] tomorrow, recommendations were printed out for patient). [...] of the content. Josesito Hope M.D., M.S. ATIENT SERVICES DIRECTOR documented in this encounter Plan of Treatment Not on file documented as of this encounter Procedures Procedure Name Priority Date/Time Associated Diagnosis Comments BACTERIAL CULTURE, AEROBIC + SUSC, URINE Routine 05/16/2023 4:06 PM OUTPATIENT SERVICES DIRECTOR Injury Head Initial URINALYSIS WITH MICROSCOPIC Routine 05/16/2023 4:06 PM OUTPATIENT SERVICES DIRECTOR Injury Head Initial CBC WITH DIFFERENTIAL, B Routine 05/16/2023 4:05 PM OUTPATIENT SERVICES DIRECTOR Injury Head Initial PHOSPHORUS (INORGANIC), S Routine 05/16/2023 4:05 PM OUTPATIENT SERVICES DIRECTOR Injury Head Initial MAGNESIUM, S Routine 05/16/2023 4:05 PM OUTPATIENT SERVICES DIRECTOR Injury Head Initial ECG Routine 05/16/2023 3:50 PM OUTPATIENT SERVICES DIRECTOR Injury Head Initial BASIC METABOLIC PANEL, S/P Routine 05/16/2023 3:35 PM OUTPATIENT SERVICES DIRECTOR Injury Head Initial FERRITIN, S Routine 05/16/2023 1:35 PM OUTPATIENT SERVICES DIRECTOR Injury Head Initial documented in this encounter Results * CT Head without IV Contrast (05/16/2023 4:29 PM OUTPATIENT SERVICES DIRECTOR) Anatomical Region Laterality Modality Head, Neuroradiology RST LOS , Neuroradiology ARZ LOS, Neuroradiology FLA LOS N/A Computed Tomography 05/16/2023 4:26 PM OUTPATIENT SERVICES DIRECTOR Impressions 05/16/2023 4:55 PM OUTPATIENT SERVICES DIRECTOR Cerebral atrophy and small vessel ischemic disease. Otherwise normal CT of the head without contrast. Narrative 05/16/2023 4:55 PM OUTPATIENT SERVICES DIRECTOR EXAM: CT HEAD WITHOUT IV CONTRAST COMPARISON: [...] Aerobic + Susceptibility, Urine (05/16/2023 4:06 PM OUTPATIENT SERVICES DIRECTOR) Pathologist [facility] Urine Culture No growth after 1 day of incubation. 05/18/2023 8:29 AM OUTPATIENT SERVICES DIRECTOR [facility] Urine (Urine, Midstream) 05/16/2023 4:06 PM OUTPATIENT SERVICES DIRECTOR 05/17/2023 1:48 PM OUTPATIENT SERVICES DIRECTOR Comment:Specimen Source Site : Urine Zoe Hope M.D., M.S. LAB MICROBIOLOGY - GENERAL ORDERABLES [facility] [address] [place] [address], [facility] in [place] [address] [place] [address] * Urinalysis with Microscopic: Urine, Midstream (05/16/2023 4:06 PM OUTPATIENT SERVICES DIRECTOR) Source Urine, Urine, Midstream 05/16/2023 4:45 PM OUTPATIENT SERVICES DIRECTOR OWAT Clarity Clear Clear 05/16/2023 4:47 PM OUTPATIENT SERVICES DIRECTOR OWAT Color Yellow 05/16/2023 4:45 PM OUTPATIENT SERVICES DIRECTOR OWAT Comment: ----REFERENCE VALUE---- Colorless Yellow Ny Blood Negative Negative 05/16/2023 4:45 PM OUTPATIENT SERVICES DIRECTOR OWAT Nitrite Negative Negative 05/16/2023 4:45 PM OUTPATIENT SERVICES DIRECTOR OWAT Leukocyte Esterase Negative Negative 05/16/2023 4:45 PM OUTPATIENT SERVICES DIRECTOR OWAT Protein Negative mg/dL 05/16/2023 4:45 PM OUTPATIENT SERVICES DIRECTOR OWAT Comment: ----REFERENCE VALUE---- Negative Trace Glucose Negative Negative mg/dL 05/16/2023 4:45 PM OUTPATIENT SERVICES DIRECTOR OWAT Ketone Negative Negative mg/dL 05/16/2023 4:45 PM OUTPATIENT SERVICES DIRECTOR OWAT Bilirubin Negative Negative 05/16/2023 4:45 PM OUTPATIENT SERVICES DIRECTOR OWAT pH 5.5 5.0 - 8.0 05/16/2023 4:45 PM OUTPATIENT SERVICES DIRECTOR OWAT Specific [place] 1.005 1.001 - 1.035 05/16/2023 4:45 PM OUTPATIENT SERVICES DIRECTOR OWAT Urobilinogen 0.2 0.2 - 1.0 mg/dL 05/16/2023 4:45 PM OUTPATIENT SERVICES DIRECTOR OWAT White Blood Cells None Seen /hpf 05/16/2023 4:47 PM OUTPATIENT SERVICES DIRECTOR OWAT Comment: ----REFERENCE VALUE---- Males: 0-3 Females: 0-10 Unknown: 0-10 Red Blood Cells None Seen 0 - 2 /hpf 4:47 PM OUTPATIENT SERVICES DIRECTOR OWAT Hyaline Casts 1-3 /lpf 05/16/2023 4:47 PM OUTPATIENT SERVICES DIRECTOR OWAT Urine (Urine, Midstream) 05/16/2023 4:06 PM OUTPATIENT SERVICES DIRECTOR 05/16/2023 4:41 PM OUTPATIENT SERVICES DIRECTOR Zoe Hope M.D., M.S. LAB URINE ORDERABLE S [facility] [address] [address], [facility] OWAT [facility] in [place] [address] [place] [address] * Phosphorus Inorganic (05/16/2023 4:05 PM OUTPATIENT SERVICES DIRECTOR) Phosphorus (Inorganic), P 3.7 2.5 - 4.5 mg/dL 05/17/2023 3:17 PM OUTPATIENT SERVICES DIRECTOR A[place] Blood (Blood, Venous) 05/16/2023 4:05 PM OUTPATIENT SERVICES DIRECTOR 05/17/2023 3:02 PM OUTPATIENT SERVICES DIRECTOR Zoe Hope M.D., M.S. LAB BLOOD ADD-ON Performing Organization Address City/[facility]/ZIP Co de Phone Number [facility] [address] [place] [address], [place] [facility] [facility] - [facility] [address] [place] [address] * Magnesium (05/16/2023 4:05 PM OUTPATIENT SERVICES DIRECTOR) Magnesium, P 2.3 1.7 - 2.3 mg/dL 05/16/2023 4:17 PM OUTPATIENT SERVICES DIRECTOR OWAT Blood (Blood, Venous) 05/16/2023 4:05 PM OUTPATIENT SERVICES DIRECTOR 05/16/2023 4:05 PM OUTPATIENT SERVICES DIRECTOR Zoe Hope M.D. MEldaS. LAB BLOOD ADD-ON Performing Organization Address City/[facility] Co de Phone Number [facility] [address] [place] [address], [facility] OWAT [facility] in [place] [address] [place] [address] * (ABNORMAL) CBC with Differential, Blood (05/16/2023 4:05 PM OUTPATIENT SERVICES DIRECTOR) Pathologist [facility] Hemoglobin 13.3 11.6 - 15.0 g/dL 05/16/2023 4:09 PM OUTPATIENT SERVICES DIRECTOR OWAT Hematocrit 39.5 35.5 - 44.9 % 05/16/2023 4:09 PM OUTPATIENT SERVICES DIRECTOR OWAT Erythrocytes 4.28 3.92 - 5.13 x10(12)/L 05/16/2023 4:09 PM OUTPATIENT SERVICES DIRECTOR OWAT MCV 92.3 78.2 - 97.9 fL 05/16/2023 4:09 PM OUTPATIENT SERVICES DIRECTOR OWAT RBC Distrib Width 12.2 12.2 - 16.1 % 05/16/2023 4:09 PM OUTPATIENT SERVICES DIRECTOR OWAT Platelet Count 433(H) 157 - 371 x10(9)/L 05/16/2023 4:09 PM OUTPATIENT SERVICES DIRECTOR OWAT Leukocytes 10.2(H) 3.4 - 9.6 x10(9)/L 05/16/2023 4:09 PM OUTPATIENT SERVICES DIRECTOR OWAT Neutrophils 6.87(H) 1.56 - 6.45 x10(9)/L 05/16/2023 4:09 PM OUTPATIENT SERVICES DIRECTOR OWAT Lymphocytes 2.46 0.95 - 3.07 x10(9)/L 05/16/2023 4:09 PM OUTPATIENT SERVICES DIRECTOR OWAT Monocytes 0.70 0.26 - 0.81 x10(9)/L 05/16/2023 4:09 PM OUTPATIENT SERVICES DIRECTOR OWAT Eosinophils 0.07 0.03 - 0.48 x10(9)/L 05/16/2023 4:09 PM OUTPATIENT SERVICES DIRECTOR OWAT Basophils 0.05 0.01 - 0.08 x10(9)/L 05/16/2023 4:09 PM OUTPATIENT SERVICES DIRECTOR OWAT Blood (Blood, Venous) 05/16/2023 4:05 PM OUTPATIENT SERVICES DIRECTOR 05/16/2023 4:05 PM OUTPATIENT SERVICES DIRECTOR Zoe Hope M.D., M.S. LAB BLOOD ADD-ON [facility] [address] [place] [address], [facility] OWAT [facility] in [place] [address] [place] [address] * ECG 12 Lead (05/16/2023 3:50 PM OUTPATIENT SERVICES DIRECTOR) Ventricular Rate ECG/Min 92 BPM MUSE [place] Interval 148 ms MUSE QRSD Interval 80 ms MUSE QT Interval 356 ms MUSE QTC Interval 440 ms MUSE P [place] 70 degrees MUSE R [place] 55 degrees MUSE T Wave [place] 36 degrees MUSE 05/16/2023 3:50 PM OUTPATIENT SERVICES DIRECTOR 05/16/2023 4:23 PM OUTPATIENT SERVICES DIRECTOR Impressions MUSE - 05/16/2023 4:23 PM OUTPATIENT SERVICES DIRECTOR Normal sinus rhythm Normal ECG When compared [...] (ABNORMAL) Basic Metabolic Panel (05/16/2023 3:35 PM OUTPATIENT SERVICES DIRECTOR) Potassium, P 4.3 3.6 - 5.2 mmol/L 05/16/2023 4:40 PM OUTPATIENT SERVICES DIRECTOR OWAT Sodium, P 134(L) 135 - 145 mmol/L 05/16/2023 4:40 PM OUTPATIENT SERVICES DIRECTOR OWAT Chloride, P 97(L) 98 - 107 mmol/L 05/16/2023 4:40 PM OUTPATIENT SERVICES DIRECTOR OWAT Bicarbonate, P 24 22 - 29 mmol/L 05/16/2023 4:40 PM OUTPATIENT SERVICES DIRECTOR OWAT Anion Gap, P 13 7 - 15 05/16/2023 4:40 PM OUTPATIENT SERVICES DIRECTOR OWAT BUN (Blood Urea Nitrogen), P 16 6 - 21 mg/dL 05/16/2023 4:40 PM OUTPATIENT SERVICES DIRECTOR OWAT Creatinine 0.81 0.59 - 1.04 mg/dL 05/16/2023 4:40 PM OUTPATIENT SERVICES DIRECTOR OWAT Estimated GFR (eGFR) 75 >=60 mL/min/BSA 05/16/2023 4:40 PM OUTPATIENT SERVICES DIRECTOR OWAT Comment: Estimated GFR calculated using the 2020 CKD_EPI creatinine equation. Calcium, Total, P 9.8 8.8 - 10.2 mg/dL 05/16/2023 4:40 PM OUTPATIENT SERVICES DIRECTOR OWAT Glucose, P 102 70 - 140 mg/dL 05/16/2023 4:40 PM OUTPATIENT SERVICES DIRECTOR OWAT Blood (Blood, Venous) 05/16/2023 3:35 PM OUTPATIENT SERVICES DIRECTOR 05/16/2023 4:22 PM OUTPATIENT SERVICES DIRECTOR Zoe Hope M.D., M.S. LAB BLOOD ADD-ON [facility] [address] [place] [address], [place] OWAT [facility] in [place] [address] [place] [address] * Ferritin (05/16/2023 1:35 PM OUTPATIENT SERVICES DIRECTOR) Ferritin, S 192 11 - 328 mcg/L 05/17/2023 9:14 AM OUTPATIENT SERVICES DIRECTOR OWAT Comment: Biotin has been identified by the building cleaner as a potential interfering substance. Higher concentrations of biotin may be found in multivitamins, hair/nail supplements, and workout supplements. If the result does not match clinical observations, repeat testing after patient refrains from the use of supplements for at least 12 hours. Blood (Blood, Venous) 05/16/2023 1:35 PM OUTPATIENT SERVICES DIRECTOR 05/16/2023 4:07 PM OUTPATIENT SERVICES DIRECTOR Zoe Hope M.D., M.S. LAB BLOOD ADD-ON [facility] [address], [place] [address], [facility] OWAT [facility] in [place] [address], [place] [address] documented in this encounter Visit Diagnoses Diagnosis Injury Head Initial- Primary History Of Falling Injury Head Initial documented in this encounter Additional Health Concerns Assessment Noted Time PHQ-9 Depression Total Score: 1 06/02/19 18 9:34 AM OUTPATIENT SERVICES DIRECTOR documented as of this encounter Care Teams Stone Hand Relationship Specialty Start Date End Date Tigre Preciado P.A.-C., P.A. PCP - General Family Medicine 10/11/19 documented as of this encounter
--- OUTSIDE RECORDS SUMMARY | 2023-05-25 15:12 | XMS_ITS | Encounter Summary ---
Author Name Unknown Organization [facility] Address [address] [place] [address] Care Team Providers Care Day Care Teacher Name Role Phone Tigre Preciado P.A.-C., P.A. Primary Care Pr ovider Encounter Details Date Type Department Care Team (Late st Contact Info) Description 11/25/2022 Clinical Communication Department of Family Medicine, [facility], in [place], [place] [address] [place] [address] Tigre Preciado P.A.-C., P.A. [address] [place] [address] Social History Tobacco Use Types [...] Answer Date Recorded PHQ-2 Score 0 06/26/2021 [facility] [place] of Occupat ional Health - Occupational Stress [...] Total Score: 1 06/02/19 18 9:34 AM HOME HEALTH CNA documented as of this encounter Care Teams Day Care Teacher Relationship Specialty Start Date End Date Tigre Preciado P.A.-C., P.A. PCP - General Family Medicine 10/11/19 documented as of this encounter
--- OUTSIDE RECORDS SUMMARY | 2023-05-25 15:12 | XMS_ITS | Encounter Summary ---
Author Name Unknown Organization [facility] Address [address] [place] [address] Care Team Providers Care Inlayer Silver Name Role Phone Tigre Preciado P.A.-C., P.A. Primary Care Pr ovider Encounter Details Date Type Department Care Team (Late st Contact Info) Description 05/16/2023 Clinical Communication Department of Orthopedic Surgery in [place], [place] [address] [place] [phone] Sebastián Esteban M.D. [address] [place] [address] Social History Tobacco Use Types Packs/Day Years [...] Answer Date Recorded PHQ-2 Score 0 06/26/2021 [facility] [place] of Occupat ional Health - Occupational Stress [...] Sebastián Esteban M.D. - 05/16/2023 4:54 PM CLOUD DEVELOPER I was called by primary care [...] primary care provider for further follow up. D DEVELOPER documented in this encounter Plan of Treatment Not on file documented as of this encounter Visit Diagnoses Not on filedocumented in this encounter Additional Health Concerns Assessment Noted Time PHQ-9 Depression Total Score: 1 06/02/19 18 9:34 AM CLOUD DEVELOPER documented as of this encounter Care Teams Inlayer Silver Relationship Specialty Start Date End Date Tigre Preciado P.A.-C., P.A. PCP - General Family Medicine 10/11/19 documented as of this encounter
--- OUTSIDE RECORDS SUMMARY | 2023-05-25 15:12 | XMS_ITS | Encounter Summary ---
Author Name Unknown Organization [facility] Address [address] [place] [address] Care Team Providers Care Focusing Machine Operator Name Role Phone Tigre Preciado P.A.-C., P.A. Primary Care Pr ovider Encounter Details Date Type Department Care Team (Late st Contact Info) Description 02/15/2023 Clinical Communication Department of Obstetrics and Gynecology in [place], [place] [address] [place] [phone] Em Almazan, R.N. [address] [place] [phone] Social History Tobacco Use Types Packs/Day Years [...] Date Recorded PHQ-2 Score 0 06/26/2021 [facility] [place] of Occupat ional Health - Occupational Stress [...] Total Score: 1 06/02/19 18 9:34 AM SIGHT MOUNTER documented as of this encounter Care Teams Focusing Machine Operator Relationship Specialty Start Date End Date Tigre Preciado P.A.-C. P.AElda PCP - General Family Medicine 10/11/19 documented as of this encounter
--- OUTSIDE RECORDS SUMMARY | 2023-05-25 15:13 | XMS_ITS | Encounter Summary ---
Author Name Unknown Organization [facility] Address [address] [place] [address] Care Team Providers Care National Business Director Name Role Phone Tigre Preciado P.A.-C., P.A. Primary Care Pr ovider Reason for Visit * Reason Comments Med Refill Encounter Details Date Type Department Care Team (Late st Contact Info) Description 07/30/2022 Refill Department of Family Medicine, [facility], in [place], [place] [address] [place] [address] Tigre Preciado P.A.-C., P.A. [address] [place] [address] Med Refill Social History Tobacco [...] Date Recorded PHQ-2 Score 0 06/26/2021 [facility] [place] of Occupat ional Health - Occupational Stress [...] Total Score: 1 06/02/19 18 9:34 AM VENDING MACHINE ASSEMBLER documented as of this encounter Care Teams National Business Director Relationship Specialty Start Date End Date Tigre Preciado P.A.-C., P.A. PCP - General Family Medicine 10/11/19 documented as of this encounter
--- OUTSIDE RECORDS SUMMARY | 2023-05-25 15:13 | XMS_ITS | Encounter Summary ---
Author Name Unknown Organization [facility] Address [address] [place] [address] Care Team Providers Care Home Maker Name Role Phone Tigre Preciado P.A.-C., P.A. Primary Care Pr ovider Reason for Visit * Episode Based Medications (Routine) - Closed Specialty Diagnoses / Procedures Referred By Contac t Referred To Contact Diagnoses Osteoporosis Procedures CO ZOLEDRONIC ACID 1MG Duncan Mcgraw M.D. [address] [place] [phone] [address] [place] [address] [place] [phone] Referral ID Status Reason Start Date Expiration Date Visits Re quested Visits Authorized [id number] Closed 07/03/2022 07/03/2023 1 1 Encounter Details Date Type Department Care Team (Late st Contact Info) Description 07/08/2022 10:15 AM CDT Infusion Department of Infusion Therapy in [place], [place] [address] [place] [phone] Duncan Mcgraw M.D. [address] [place] [phone] Osteoporosis (Primary Dx) Discharge Disposition: Home [...] 07/08/2022 10:50 AM CDT 3 mL zoledronic bjwg-jraneemq-hftwa IVPB 5 mg (RECLAST) 5 mg, intravenous, [...] Total Score: 1 06/02/19 18 9:34 AM CUTLET MAKER PORK documented as of this encounter Care Teams Home Maker Relationship Specialty Start Date End Date Tigre Preciado P.A.-C., P.A. PCP - General Family Medicine 10/11/19 documented as of this encounter
--- OUTSIDE RECORDS SUMMARY | 2023-05-25 15:13 | XMS_ITS | Encounter Summary ---
Author Name Unknown Organization [facility] Address [address] [place] [address] Care Team Providers Care Facility Designer Name Role Phone Tigre Preciado P.A.-C., P.A. Primary Care Pr ovider Reason for Referral * Outpatient (Routine) - Authorized Specialty Diagnoses / Procedures Referred By Contac t Referred To Contact Diagnoses Costochondritis Procedures ECG 12 Lead Edel Monae M.D. [address] [place] [phone] [facility] Region Referral ID Status Reason Start Date Expiration Date V isits Requested Visits Authorized [id number] Authorized 08/15/2022 08/15/2023 1 1 Reason for Visit * Reason Comments Cough 5 days, currently on Zpack Shortness of Breath 3 days Chest Pain Earlier today not no w Encounter Details Date Type Department Care Team (Late st Contact Info) Description 08/15/2022 12:30 PM CDT Office Visit Department of Family Medicine, [facility], in [place], [place] [address] [place] [address] Edel Monae M.D. [address] [place] [address] Wheezing (Primary Dx); Fatigue; Asthma [...] Date Recorded PHQ-2 Score 0 06/26/2021 [facility] of Occupat ional Health [...] Body Mass Index 21.87 05/26/2022 9:30 AM PROGRAM AND RESEARCH COORDINATOR documented in this encounter Progress Notes * [...] was seen at an emergency department in [place] and was found to have a pneumonia. [...] CDT) Ventricular Rate ECG/Min 69 BPM MUSE WI Interval 150 ms MUSE QRSD Interval 86 ms MUSE QT Interval 400 ms MUSE QTC Interval 428 ms MUSE P Rio 52 degrees MUSE R Rio 20 degrees MUSE T Wave Rio 32 degrees MUSE 08/15/2022 12:4 9 PM [...] Total Score: 1 06/02/19 18 9:34 AM PROGRAM AND RESEARCH COORDINATOR documented as of this encounter Care Teams Facility Designer Relationship Specialty Start Date End Date Tigre Preciado P.A.-C., P.A. PCP - General Family Medicine 10/11/19 documented as of this encounter
--- OUTSIDE RECORDS SUMMARY | 2023-05-25 15:13 | XMS_ITS | Encounter Summary ---
Author Name Unknown Organization [facility] Address [address] [place] [address] Care Team Providers Care Commissioning Engineer Name Role Phone Tigre Preciado P.A.-C., P.A. Primary Care Pr ovider Reason for Visit * Reason Onset Date Comments OSM notification 07/06/2022 Encounter Details Date Type Department Care Team (Latest Contact Info) Description 07/06/2022 Clinical Communication Breast Diagnostic Clinic in [place], [place] [address] [place] [phone] Amy Anthony M.D. [address] [place] [phone] OSM notification Social History Tobacco Use Types [...] Answer Date Recorded PHQ-2 Score 0 06/26/2021 [facility] of Occupat ional Health - Occupational Stress [...] OSM Request: Patient has been seen at [facility] in [facility]. All images are in QREADS dating back [...] Outside Records: Patient is seen at a [facility] system so everything should be here already NOTE: If most recent imaging was completed at [facility], then no need for interpretation of older imaging that was done elsewhere. Patient was made aware there will be associated charges from the Radiology or Pathology department to review outside imaging and pathology. When information has been received, please alert the HARLAN STEP DOWN NURSE (P RST BRS STEP DOWN NURSE) by forwarding on thismessage for ordering purposes. Thank you! documented in this encounter Plan of Treatment Not on file documented as of this encounter Visit Diagnoses Not on filedocumented in this encounter Additional Health Concerns Assessment Noted Time PHQ-9 Depression Total Score: 1 06/02/19 18 9:34 AM BOXING INSPECTOR documented as of this encounter Care Teams Commissioning Engineer Relationship Specialty Start Date End Date Tigre Preciado P.A.-C., P.A. PCP - General Family Medicine 10/11/19 documented as of this encounter
--- OUTSIDE RECORDS SUMMARY | 2023-05-25 15:13 | XMS_ITS | Encounter Summary ---
Author Name Unknown Organization [facility] Address [address] [place] [address] Care Team Providers Care Garbage Truck Dispatcher Name Role Phone Tigre Preciado P.A.-C., P.A. Primary Care Pr ovider Encounter Details Date Type Department Care Team (Latest Contact Info) Description 05/26/2022 Clinical Communication Division of Endocrinology in [place], [place] [address] [place] [phone] Duncan Mcgraw M.D. [address] [place] [address] Social History Tobacco Use Types Packs/Day Years [...] Answer Date Recorded PHQ-2 Score 0 06/26/2021 [facility] [place] of Occupat ional Health - Occupational Stress [...] Total Score: 1 06/02/19 18 9:34 AM CANDY CATCHER documented as of this encounter Care Teams Garbage Truck Dispatcher Relationship Specialty Start Date End Date Tigre Preciado P.A.-C., P.A. PCP - General Family Medicine 10/11/19 documented as of this encounter
--- OUTSIDE RECORDS SUMMARY | 2023-05-25 15:13 | XMS_ITS | Encounter Summary ---
Author Name Unknown Organization [facility] Address [address] [place] [address] Care Team Providers Care Shine Worker Name Role Phone Tigre Preciado P.A.-C., P.A. Primary Care Pr ovider Reason for Visit * Reason Onset Date Comments Med Question 05/28/2022 Encounter Details Date Type Department Care Team (Latest Contact Info) Description 05/28/2022 Clinical Communication Division of Endocrinology in [place], [place] [address] [place] [address] Duncan Mcgraw M.D. [address] [place] [phone] Med Question Social History Tobacco Use Types [...] Answer Date Recorded PHQ-2 Score 0 06/26/2021 [facility] of Occupat ional Health - Occupational Stress [...] Juana Mcelroy, R.N. - 06/01/2022 10:52 AM RAILWAY TRACK PLANT OPERATOR SUBJECTIVE CHIEF COMPLAINT / REASON FOR CALL [...] nursing clinical judgement and provider Dr. Mcgraw WAY TRACK PLANT OPERATOR documented in this encounter Plan of Treatment Not on file documented as of this encounter Visit Diagnoses Not on filedocumented in this encounter Additional Health Concerns Assessment Noted Time PHQ-9 Depression Total Score: 1 06/02/19 18 9:34 AM RAILWAY TRACK PLANT OPERATOR documented as of this encounter Care Teams Shine Worker Relationship Specialty Start Date End Date Tigre Preciado P.A.-C., P.A. PCP - General Family Medicine 10/11/19 documented as of this encounter
--- OUTSIDE RECORDS SUMMARY | 2023-05-25 15:13 | XMS_ITS | Encounter Summary ---
Author Name Unknown Organization [facility] Address [address] [place] [address] Care Team Providers Care Scroll Assembler Name Role Phone Tigre Preciado P.A.-C., P.A. Primary Care Pr ovider Reason for Visit * Reason Comments Consult * Outpatient (Routine) - Closed Specialty Diagnoses / Procedures Referred By Contcarlie t Referred To Contact Breast Clinic Diagnoses Discharge Nipple Kanchan Granda, C.N.P. [address] [place] [phone] [facility] Referral ID Status Reason Start Date Expiration Date Visits Re quested Visits Authorized [id number] Closed 07/03/2022 07/03/2023 1 1 Encounter Details Date Type Department Care Team ([facility] st Contact Info) Description 08/13/2022 10:30 AM CDT Comprehensive Visit Breast Diagnostic Clinic in [place], [place] [address] [place] [phone] Shelby Austin M.D., [facility] [address] [place] [phone] Pruritus (Primary Dx); Discharge Nipple Social History [...] Answer Date Recorded PHQ-2 Score 0 06/26/2021 [facility] of Occupat ional Health - Occupational [...] colon cancer who ultimately lived to be [facility]. OBJECTIVE PHYSICAL EXAM BP 147/84 (BP [...] Total Score: 1 06/02/19 18 9:34 AM SHOT BLAST EQUIPMENT OPERATOR documented as of this encounter Care Teams Scroll Assembler Relationship Specialty Start Date End Date Tigre Preciado P.A.-C., P.A. PCP - General Family Medicine 10/11/19 documented as of this encounter
--- OUTSIDE RECORDS SUMMARY | 2023-05-25 15:13 | XMS_ITS | Encounter Summary ---
Author Name Unknown Organization [facility] Address [address] [place] [address] Care Team Providers Care Tongue And Groove Machine Feeder Name Role Phone Tigre Preciado P.A.-C., P.A. Primary Care Pr ovider Encounter Details Date Type Department Care Team (Late st Contact Info) Description 09/02/2022 Orders Only [facility] MNT Tigre Preciado P.A.-C., P.A. [address] [facility] [place] [phone] Social History Tobacco Use Types Packs/Day Years [...] PHQ-2 Score 0 06/26/2021 [facility] [place] of Occupat ional Health - Occupational Stress [...] Total Score: 1 06/02/19 18 9:34 AM SLATE SPLITTER documented as of this encounter Care Teams Tongue And Groove Machine Feeder Relationship Specialty Start Date End Date Tigre Preciado P.A.-C., P.A. PCP - General Family Medicine 10/11/19 documented as of this encounter
--- OUTSIDE RECORDS SUMMARY | 2023-05-25 15:13 | XMS_ITS | Encounter Summary ---
Author Name Unknown Organization [facility] Address [address] [place] [address] Care Team Providers Care Tapper Balance Wheel Screw Hole Name Role Phone Tigre Preciado P.A.-C., P.A. Primary Care Pr ovider Reason for Visit * Outpatient (Routine) - Closed Specialty Diagnoses / Procedures Referred By Contac t Referred To Contact Endocrinology Diagnoses Osteoporosis Without Pathological Fracture Kanchan Granda, C.N.P. [address] [place] [address] [facility] Referral ID Status Reason Start Date Expiration Date Visits Re quested Visits Authorized [id number] Closed 04/15/2022 04/15/2023 1 1 Encounter Details Date Type Department Care Team (Latest Contact Info) Description 05/26/2022 10:00 AM TERMINAL MAKE UP OPERATOR Comprehensive Visit Division of Endocrinology in [place], [place] [address] [place] [phone] Duncan Mcgraw M.D. [address] [place] [phone] Osteoporosis Without Pathological Fracture Social History Tobacco [...] Answer Date Recorded PHQ-2 Score 0 06/26/2021 [facility] - Occupational Stress Questionnaire Answer Date [...] Comments Blood Pressure 149/100 05/26/2022 9:30 AM TERMINAL MAKE UP OPERATOR swe ater on Pulse 102 05/26/2022 9:30 AM TERMINAL MAKE UP OPERATOR Temperature - - Respiratory Rate - - Oxygen Saturation - - Inhaled Oxygen Concentration - - Weight 56 kg (123 lb 7.3 oz) 05/26/2022 9:30 AM TERMINAL MAKE UP OPERATOR Height 160.3 cm (5' 3.11) 05/26/2022 9:30 AM CS T Body Mass Index 21.79 05/26/2022 9:30 AM TERMINAL MAKE UP OPERATOR documented in this encounter H&P Notes * Duncan Mcgraw M.D. - 05/26/2022 10:00 AM CST [facility] Endocrinology, Diabetes, Metabolism and Nutrition Bone/Osteoporosis Clinic [...] performed at [facility] 04/01/2022 revealed osteoporosis at the lumbar spine [...] is appropriate for age and gender. Hand sales and marketing specialist normal. Neuro: Able to rise from seated position without assistance. Gait normal. Balance normal. Spine: midthoracic dgow-gx-owxokrdk kyphosis but nontender to palpation and percussion. [...] zoledronic acid/Reclast. 2. Adequate replacement of calcium (5491-0045 mg/day of elemental calcium in divided doses) [...] arrange for it to be done at [facility] in [place]. She should have a bone mineral density [...] with more than 50% of time in [id number]-bl-qrtc discussion with the patient who was alone today. INAL MAKE UP OPERATOR documented in this encounter Plan of Treatment Not on file documented as of this encounter Results * Calcium, Total (05/26/2022 11:02 AM TERMINAL MAKE UP OPERATOR) Calcium, Total, S 10.1 8.8 - 10.2 mg/dL 05/26/2022 11:57 AM TERMINAL MAKE UP OPERATOR DTL Blood (Blood, Venous) 05/26/2022 11:02 AM TERMINAL MAKE UP OPERATOR 05/26/2022 11:36 AM TERMINAL MAKE UP OPERATOR Duncan Mcgraw M.D. LAB BLOOD ADD-ON Performing Organization Address City/[facility]/ZIP Co de Phone Number [address] [place] [address] * Creatinine with Estimated GFR (05/26/2022 11:02 AM TERMINAL MAKE UP OPERATOR) Creatinine 0.94 0.59 - 1.04 mg/dL 05/26/2022 11:57 AM TERMINAL MAKE UP OPERATOR DTL Estimated GFR (eGFR) 63 >=60 mL/min/BSA 05/26/2022 11:57 AM TERMINAL MAKE UP OPERATOR DTL Comment: Estimated GFR calculated using the 2020 CKD_EPI creatinine equation. Blood (Blood, Venous) 05/26/2022 11:02 AM TERMINAL MAKE UP OPERATOR 05/26/2022 11:36 AM TERMINAL MAKE UP OPERATOR Duncan Mcgraw M.D. LAB BLOOD ADD-ON [address] [place] [address] * 25-Hydroxyvitamin D2 and D3 (05/26/2022 11:02 AM TERMINAL MAKE UP OPERATOR) 25-Hydroxy D2 <4.0 ng/mL 05/28/2022 3:38 PM TERMINAL MAKE UP OPERATOR SDS 25-Hydroxy D3 57 ng/mL 05/28/2022 3:38 PM TERMINAL MAKE UP OPERATOR SDS 25-Hydroxy D Total 57 ng/mL 2022 3:38 PM TERMINAL MAKE UP OPERATOR [facility] Comment: Interpretation: 51-80 ng/mL (increased risk of hypercalciuria) ----REFERENCE VALUE---- 25-HYDROXY D TOTAL (D2+D3) Optimum levels in the healthy population are 20-50, patients with bone disease may benefit from higher levels within this range. ----ADDITIONAL INFORMATION---- This test was developed and its performance characteristics determined by [facility] in a manner consistent with CLIA requirements. This test has not been cleared or approved by the U.S. Food and Drug Administration. Blood (Blood, Venous) 05/26/2022 11:02 AM TERMINAL MAKE UP OPERATOR 05/26/2022 3:01 PM TERMINAL MAKE UP OPERATOR Duncan Mcgraw M.D. LAB BLOOD ADD-ON [facility] [address] [place] [address] [facility] [address] [place] [address] documented in this encounter Visit Diagnoses Diagnosis Osteoporosis Without Pathological Fracture documented in this encounter Additional Health Concerns Assessment Noted Time PHQ-9 Depression Total Score: 1 06/02/19 18 9:34 AM TERMINAL MAKE UP OPERATOR documented as of this encounter Care Teams Tapper Balance Wheel Screw Hole Relationship Specialty Start Date End Date Tigre Preciado P.A.-C., P.A. PCP - General Family Medicine 10/11/19 documented as of this encounter
--- OUTSIDE RECORDS SUMMARY | 2023-05-25 15:13 | XMS_ITS | Encounter Summary ---
Author Name Unknown Organization [facility] Address [address] [place] [address] Care Team Providers Care Acid Purification Equipment Operator Name Role Phone Tigre Preciado P.A.-C., P.A. Primary Care Pr ovider Reason for Visit * Reason Onset Date Comments Cough 08/15/2022 Encounter Details Date Type Department Care Team (Late st Contact Info) Description 08/15/2022 Nurse Triage Department of Family Medicine, [facility], in [place], [place] [address] [place] [address] Beryl Arriola, REldaNElda [address] [place] [phone] Cough Social History Tobacco Use Types Packs/Day [...] Answer Date Recorded PHQ-2 Score 0 06/26/2021 [facility] [place] of Occupat ional Health - Occupational Stress [...] cares tried: Seen by primary care at [place] (with josi prescribed) by [facility] Provider on Wednesday. Calling to request: [...] or 4 hours. Call your doctor (or ELECTRONIC WIRER/PA) now or as soon as the office [...] need to be seen. Your doctor (or ELECTRONIC WIRER/PA) will want to talk with you to [...] Caller was warm transferred to Patient Appointment Crutch Maker at the clinic for further assistance. Reason for Disposition [1] MILD difficulty breathing (e.g., minimal/no SOB at rest, SOB with walking, pulse <100) AND [2] still present when not coughing Protocols used: Cough - Acute Myidggfyog-XHYZM-YG documented in this encounter Plan of Treatment Not on file documented as of this encounter Visit Diagnoses Not on filedocumented in this encounter Additional Health Concerns Assessment Noted Time PHQ-9 Depression Total Score: 1 06/02/19 18 9:34 AM WELDER PLASTIC documented as of this encounter Care Teams Acid Purification Equipment Operator Relationship Specialty Start Date End Date Tigre Preciado P.A.-C., P.A. PCP - General Family Medicine 10/11/19 documented as of this encounter
--- OUTSIDE RECORDS SUMMARY | 2023-05-25 15:13 | XMS_ITS | Encounter Summary ---
Author Name Unknown Organization [facility] Address [address] [place] [address] Care Team Providers Care Manager Shell Name Role Phone Tigre Preciado P.A.-C., P.A. Primary Care Pr ovider Reason for Visit * Reason Comments Med Refill Encounter Details Date Type Department Care Team (Late st Contact Info) Description 10/05/2022 Refill Department of Family Medicine, [facility], in [place], [place] [address] [place] [address] Tigre Preciado P.A.-C., P.A. [address] [place] [phone] Med Refill Social History Tobacco [...] Answer Date Recorded PHQ-2 Score 0 06/26/2021 [facility] [place] of Occupat ional Health - Occupational Stress [...] BY MOUTH AT BEDTIME. Pharmacy (include location): [facility] [place], [place] - [address] [place] [address] documented in this encounter Plan of Treatment Not on file documented as of this encounter Visit Diagnoses Not on filedocumented in this encounter Additional Health Concerns Assessment Noted Time PHQ-9 Depression Total Score: 1 06/02/19 18 9:34 AM NEEDLE STRAIGHTENER documented as of this encounter Care Teams Manager Shell Relationship Specialty Start Date End Date Tigre Preciado P.A.-C., P.A. PCP - General Family Medicine 10/11/19 documented as of this encounter
--- OUTSIDE RECORDS SUMMARY | 2023-05-25 15:13 | XMS_ITS | Encounter Summary ---
Author Name Unknown Organization [facility] Address [address] [place] [address] Care Team Providers Care Automation And Controls Supervisor Name Role Phone Tigre Preciado P.A.-C., P.A. Primary Care Pr ovider Reason for Visit * Reason Onset Date Comments Pre-visit Intake 08/10/2022 Encounter Details Date Type Department Care Team (Latest Contact Info) Description 08/10/2022 2:30 PM CDT Clinical Communication Virtual Review in [place], [place] [address] [place], [place] [phone] Pre-visit Intake Social History Tobacco Use Types [...] Answer Date Recorded PHQ-2 Score 0 06/26/2021 [facility] [place] of Occupat ional Health - Occupational Stress [...] Total Score: 1 06/02/19 18 9:34 AM ELECTRONICS UTILITY WORKER documented as of this encounter Care Teams Automation And Controls Supervisor Relationship Specialty Start Date End Date Tigre Preciado P.A.-C., P.A. PCP - General Family Medicine 10/11/19 documented as of this encounter
--- OUTSIDE RECORDS SUMMARY | 2023-05-25 15:13 | XMS_ITS | Encounter Summary ---
Author Name Unknown Organization [facility] Address [address] [place] [address] Care Team Providers Care Surgical Garment Assembler Name Role Phone Tigre Preciado P.A.-C., P.A. Primary Care Pr ovider Reason for Visit * Reason Onset Date Comments Follow-up Orders 07/01/2022 Reclast Encounter Details Date Type Department Care Team (Latest Contact Info) Description 07/01/2022 Clinical Communication Division of Endocrinology in [place], [place] [address] [place] [address] Duncan Mcgraw M.D. [address] [place] [phone] Follow-up Orders (Reclast) Social History Tobacco Use [...] Recorded PHQ-2 Score 0 06/26/2021 [facility] [place] of Occupat ional Health - Occupational Stress [...] Total Score: 1 06/02/19 18 9:34 AM TRACK WORKER documented as of this encounter Care Teams Surgical Garment Assembler Relationship Specialty Start Date End Date Tigre Preciado P.A.-C., P.A. PCP - General Family Medicine 10/11/19 documented as of this encounter
--- OUTSIDE RECORDS SUMMARY | 2023-05-25 15:13 | XMS_ITS | Encounter Summary ---
Author Name Unknown Organization [facility] Address [address] [place] [address] Care Team Providers Care Coordinate Measuring Machine Technician Name Role Phone Tigre Preciado P.A.-C., P.A. Primary Care Pr ovider Encounter Details Date Type Department Care Team (Late st Contact Info) Description 07/03/2022 Orders Only Division of Endocrinology in [place], [place] [address] [place] [phone] Duncan Mcgraw M.D. [address] [place] [phone] Osteoporosis (Primary Dx) Social History Tobacco Use [...] Answer Date Recorded PHQ-2 Score 0 06/26/2021 [facility] [place] of Occupat ional Health - Occupational Stress [...] Total Score: 1 06/02/19 18 9:34 AM TRANSMISSION CALIBRATION ENGINEER documented as of this encounter Care Teams Coordinate Measuring Machine Technician Relationship Specialty Start Date End Date Tigre Preciado P.A.-C., P.A. PCP - General Family Medicine 10/11/19 documented as of this encounter
--- OUTSIDE RECORDS SUMMARY | 2023-05-25 15:13 | XMS_ITS | Encounter Summary ---
Author Name Unknown Organization [facility] Address [address] [place] [address] Care Team Providers Care Parking Patroller Name Role Phone Tigre Preciado P.A.-C., P.A. Primary Care Pr ovider Reason for Visit * Reason Onset Date Comments Pre-visit Intake 07/09/2022 Encounter Details Date Type Department Care Team (Latest Contact Info) Description 07/09/2022 2:30 PM CDT Clinical Communication Virtual Review in [place], [place] [address] [place], [place] [phone] Pre-visit Intake Social History Tobacco Use Types [...] Answer Date Recorded PHQ-2 Score 0 06/26/2021 [facility] [place] of Occupat ional Health - Occupational Stress [...] Total Score: 1 06/02/19 18 9:34 AM SECURITY ASSURANCE ANALYST documented as of this encounter Care Teams Parking Patroller Relationship Specialty Start Date End Date Tigre Preciado P.A.-C., P.A. PCP - General Family Medicine 10/11/19 documented as of this encounter
--- OUTSIDE RECORDS SUMMARY | 2023-05-25 15:13 | XMS_ITS | Encounter Summary ---
Author Name Unknown Organization [facility] Address [address] [place] [address] Care Team Providers Care Soccer Referee Name Role Phone Tigre Preciado P.A.-C., P.A. Primary Care Pr ovider Encounter Details Date Type Department Care Team (Latest Contact Info) Description 05/26/2022 10:52 AM FINANCIAL AID OFFICER - 05/26/2022 11:59 PM [facility] Hospital Encounter Department of Laboratory Medicine and Pathology, [facility] in [place], [place] [address] [place] [address] Duncan Mcgraw M.D. [address] [place] [phone] Osteoporosis Without Pathological Fracture Discharge Disposition: Home [...] Answer Date Recorded PHQ-2 Score 0 06/26/2021 [facility] Occupat ional Health - Occupational Stress [...] and swallow 280 mL 0 07/02/2021 vitamin A,C,E-fqyodk-wuvrwxyh (OCUVITE W/LUTEIN) 1,000 Unit-200 mg-60 Unit-2 mg [...] Duncan Mcgraw M.D. - 05/29/2022 1:28 PM FINANCIAL AID OFFICER Total vitamin-D level is 57 ng/mL. Optimal total vitamin-D range for skeletal health is 30-50 with allowable safe level up to 60 ng per mL. No change in vitamin-D dosing is needed. Vitamin-D level should be rechecked in 1 year. NCIAL AID OFFICER documented in this encounter Plan of Treatment Not on file documented as of this encounter Procedures Procedure Name Priority Date/Time Associated Diagnosis Comments 25-HYDROXYVITAMIN D2 AND D3, S Routine 05/26/2022 11:02 AM FINANCIAL AID OFFICER Osteoporosis Without Pathological Fracture CREATININE WITH EGFR, S/P Routine 05/26/2022 11:02 AM FINANCIAL AID OFFICER Osteoporosis Without Pathological Fracture CALCIUM, TOT, S/P Routine 05/26/2022 11: 02 AM FINANCIAL AID OFFICER Osteoporosis Without Pathological Fracture documented in this encounter Results * Calcium, Total (05/26/2022 11:02 AM FINANCIAL AID OFFICER) Pathologist [facility] Calcium, Total, S 10.1 8.8 - 10.2 mg/dL 05/26/2022 11:57 AM FINANCIAL AID OFFICER DTL Blood (Blood, Venous) 05/26/2022 11:02 AM FINANCIAL AID OFFICER 05/26/2022 11:36 AM FINANCIAL AID OFFICER Duncan Mcgraw M.D. LAB BLOOD ADD-ON Performing Organization Address City/[facility]/ZIP Co de Phone Number [facility] [address] [place] [address] * Creatinine with Estimated GFR (05/26/2022 11:02 AM FINANCIAL AID OFFICER) [facility] Creatinine 0.94 0.59 - 1.04 mg/dL 05/26/2022 11:57 AM FINANCIAL AID OFFICER DTL Estimated GFR (eGFR) 63 >=60 mL/min/BSA 05/26/2022 11:57 AM FINANCIAL AID OFFICER DTL Comment: Estimated GFR calculated using the 2020 CKD_EPI creatinine equation. Blood (Blood, Venous) 05/26/2022 11:02 AM FINANCIAL AID OFFICER 05/26/2022 11:36 AM FINANCIAL AID OFFICER Duncan Mcgraw M.D. LAB BLOOD ADD-ON Performing Organization Address City/[facility]/ZIP Co de Phone Number [facility] [address] [place] [address], [facility] [address] [place] [address] * 25-Hydroxyvitamin D2 and D3 (05/26/2022 11:02 AM FINANCIAL AID OFFICER) 25-Hydroxy D2 <4.0 ng/mL 05/28/2022 3:38 PM FINANCIAL AID OFFICER [facility] 25-Hydroxy D3 57 ng/mL 05/28/2022 3:38 PM FINANCIAL AID OFFICER [facility] 25-Hydroxy D Total 57 ng/mL 2022 3:38 PM FINANCIAL AID OFFICER [facility] Comment: Interpretation: 51-80 ng/mL (increased risk of hypercalciuria) ----REFERENCE VALUE---- 25-HYDROXY D TOTAL (D2+D3) Optimum levels in the healthy population are 20-50, patients with bone disease may benefit from higher levels within this range. ----ADDITIONAL INFORMATION---- This test was developed and its performance characteristics determined by [facility] in a manner consistent with CLIA requirements. This test has not been cleared or approved by the U.S. Food and Drug Administration. Blood (Blood, Venous) 05/26/2022 11:02 AM FINANCIAL AID OFFICER 05/26/2022 3:01 PM FINANCIAL AID OFFICER Duncan Mcgraw M.D. LAB BLOOD ADD-ON [facility] [address] [place] [address] [facility] [address] [place] [address] documented in this encounter Visit Diagnoses Diagnosis Osteoporosis Without Pathological Fracture documented in this encounter Additional Health Concerns Assessment Noted Time PHQ-9 Depression Total Score: 1 06/02/19 18 9:34 AM FINANCIAL AID OFFICER documented as of this encounter Care Teams Soccer Referee Relationship Specialty Start Date End Date Tigre Preciado P.A.-C., P.A. PCP - General Family Medicine 10/11/19 documented as of this encounter
--- OUTSIDE RECORDS SUMMARY | 2023-05-25 15:13 | XMS_ITS | Encounter Summary ---
Author Name Unknown Organization [facility] Address [address] [place] [address] Care Team Providers Care Brush Cutter Name Role Phone Tigre Preciado P.A.-C., P.A. Primary Care Pr ovider Reason for Referral * Outpatient (Routine) - Closed Specialty Diagnoses / Procedures Referred By Contac t Referred To Contact Breast Clinic Diagnoses Discharge Nipple Kanchan Granda, C.N.P. [address] [place] [address] [facility] Referral ID Status Reason Start Date Expiration Date Visits Re quested Visits Authorized [id number] Closed 07/03/2022 07/03/2023 1 1 Encounter Details Date Type Department Care Team (Late st Contact Info) Description 07/03/2022 [facility] [address] [place] [address] Kanchan Granda, C.N.P. [address] [place] [address] Discharge Nipple (Primary Dx) Social [...] Answer Date Recorded PHQ-2 Score 0 06/26/2021 [facility]at ional [facility] - [...] Total Score: 1 06/02/19 18 9:34 AM PAPER MACHINE BACK TENDER documented as of this encounter Care Teams Brush Cutter Relationship Specialty Start Date End Date Tigre Preciado P.A.-C., P.A. PCP - General Family Medicine 10/11/19 documented as of this encounter
--- OUTSIDE RECORDS SUMMARY | 2023-05-25 15:13 | XMS_ITS | Encounter Summary ---
Author Name Unknown Organization [facility] Address [address] [place] [id number] Care Team Providers Care Vp Human Resources Name Role Phone Tigre Preciado P.A.-C., P.A. Primary Care Pr ovider Reason for Visit * Reason Onset Date Comments Pre-visit Intake 07/23/2022 Encounter Details Date Type Department Care Team (Latest Contact Info) Description 07/23/2022 9:00 AM CDT Clinical Communication Virtual Review in [place], [place] [address] [place], [place] [address] Pre-visit Intake Social History Tobacco Use Types [...] Answer Date Recorded PHQ-2 Score 0 06/26/2021 [facility] [place] of Occupat ional Health - Occupational [...] Total Score: 1 06/02/19 18 9:34 AM BARREL STRAIGHTENER documented as of this encounter Care Teams Vp Human Resources Relationship Specialty Start Date End Date Tigre Preciado P.A.-C., P.A. PCP - General Family Medicine 10/11/19 documented as of this encounter
--- OUTSIDE RECORDS SUMMARY | 2023-05-25 15:14 | XMS_ITS | Clinical Summary ---
Author Name Unknown Organization [facility] Address [place], [place] [address] Care Team Providers Care Raveler Name Role Phone Tigre Preciado Primary Care Provider [phone] Allergies Active Allergy Reactions Criticality Noted Date [...] PRN, Reported on 01/16/2020 vit A,C and I-bxzhdq-lbsxhzgd (OCUVITE WITH LUTEIN) 1,000 unit-200 mg-60 unit-2 [...] will continue to work with her current transporter radiology. We also discussed management options with vaginal estrogen therapy, pessary, or surgical intervention. She is not interested in these options at this time. I recommend she follow up as needed in the future. Osteoporosis 07/20/2017 Personal history of colonic polyps 11/10/2012 Reactive airway disease 07/12/2009 Headache(784.0) 01/09/2009 Encounters Date Type Department Care Team Description 05/16/2023 Orders Only [facility] Staff, Other Clinical 1 scan: (1-Ord) <No description> 05/16/2023 Orders Only [facility] Staff, Other Clinical 1 scan: (1-Ord) <No description> from Last 3 Months Immunizations Name Administration Dates Next Due COVID-19 vaccine ([employer] 30mcg/0.3mL) P F, MDV 02/24/2021 Influenza, IIV3 [...] 159 cm (5' 2.6) 02/29/2020 12:48 PM USED CAR MAKE READY MECHANIC Body Mass Index 22.61 02/29/2020 12:48 PM USED CAR MAKE READY MECHANIC Plan of Treatment Health Maintenance Due Date [...] Diagnosis Comments SCAN-RADIOLOGY REPORT 05/16/2023 4:34 PM USED CAR MAKE READY MECHANIC SCAN-RADIOLOGY REPORT 05/16/2023 4:29 PM USED CAR MAKE READY MECHANIC from Last 3 Months Results * SCAN-RADIOLOGY REPORT (05/16/2023 4:34 PM USED CAR MAKE READY MECHANIC) Only the most recent of2 resultswithin the time period is included. Anatomical Region Laterality Modality Other Narrative 05/16/2023 4:34 PM USED CAR MAKE READY MECHANIC Ordered by an unspecified provider. Other Clinical Staff OTHER from Last 3 Months Advance Directives Latest Code Status on File Code Status Date Activated Date Inactivated Comments Full Code 03/13/2020 7:36 AM 03/13/2020 1:19 PM Question Answer Comments Code Status Discussion: Not Discussed Care Teams Raveler Relationship Specialty Start Date End Date Tigre Preciado PA PCP - General Physician Executive Vice President And Chief Financial Officer 01/15/20
== END 2023-05-25 15:05 | disposition home or self-care (01) ==
LOC: KYNREF 15:06
PROVIDERS: PCP Nurse Practitioner Family; Visit Provider Nurse Practitioner Family
DX: S80.02XA Contusion of left knee, initial encounter (principal); Z13.0 Encounter for screening for diseases of the blood and blood-forming organs and certain disorders involving the immune mechanism
CPT/HCPCS: 85025

== ENCOUNTER 2023-06-02 09:53 | Outpatient (CLI) | payer MEDICARE, SELFPAY ==
--- OUTSIDE RECORDS SUMMARY | 2023-06-02 10:09 | XMS_ITS | Encounter Summary ---
Author Name Unknown Organization [facility] Address [address] [place] [address] Care Team Providers Care Differential Specialist Name Role Phone Tigre Preciado P.A.-C., P.A. Primary Care Pr ovider Reason for Referral * Outpatient (Routine) - Authorized Specialty Diagnoses / Procedures Referred By Contac t Referred To Contact Tigre Preciado P.A.-C., P.A. [address] [place] [address] [facility] Region Referral ID Status Reason Start Date Expiration Date V isits Requested Visits Authorized [id number] Authorized 05/25/2023 11/23/2024 1 1 Scheduling Instructions Nurse AWV Do not schedule prior to due date to ensure insurance coverage Visit: Medicare Annual Wellness Never done. CATION COUNSELOR * Outpatient (Routine) - Authorized Specialty Diagnoses / Procedures Referred By Contac t Referred To Contact Family Medicine Tigre Preciado P.A.-C., P.A. [address] [place] [address] [facility] Region Referral ID Status Reason Start Date Expiration Date V isits Requested Visits Authorized [id number] Authorized 05/25/2023 11/23/2024 1 1 Scheduling Instructions Medicare annual provider visit/HCC gaps Do not schedule prior to due date to ensure insurance coverage Visit: Medicare Annual Wellness Never done. CATION COUNSELOR Encounter Details Date Type Department Care Team (Late st Contact Info) Description 05/25/2023 Orders Only [facility] Tigre Preciado P.A.-C., P.A. [address] [facility] [place] [phone] Social History Tobacco Use Types Packs/Day Years [...] Answer Date Recorded PHQ-2 Score 0 06/26/2021 [facility] Occupat ional Health [...] 11/21/2023 Primary Care nurse visit (clinic) - [facility]; Medicare Annual Wellness Outpatient Referral Routine Expected: 06/22/2023, Expires: 11/21/2023 documented as of this encounter Visit Diagnoses Not on filedocumented in this encounter Additional Health Concerns Assessment Noted Time PHQ-9 Depression Total Score: 1 06/02/19 18 9:34 AM RELOCATION COUNSELOR documented as of this encounter Care Teams Differential Specialist Relationship Specialty Start Date End Date Tigre Preciado P.A.-C., P.A. PCP - General Family Medicine 10/11/19 documented as of this encounter
--- OUTSIDE RECORDS SUMMARY | 2023-06-02 10:09 | XMS_ITS | Encounter Summary ---
Author Name Unknown Organization [facility] Address [address] [place] [address] Care Team Providers Care Hide Mill Man Name Role Phone Tigre Preciado P.A.-C., P.A. Primary Care Pr ovider Reason for Referral * Outpatient (Routine) - Authorized Specialty Diagnoses / Procedures Referred By Contac t Referred To Contact Diagnoses Injury Head Initial Procedures ECG 12 Lead Zoe Hope M.D., M.S. [address] [place] [address] [facility] Region Referral ID Status Reason Start Date Expiration Date V isits Requested Visits Authorized [id number] Authorized 05/16/2023 05/15/2024 1 1 R ECONOMICS TEACHER * MRI/CAT/PET Scan (Routine) - Closed Specialty Diagnoses / Procedures Referred By Contac t Referred To Contact Radiology Diagnoses Injury Head Initial Procedures CT Head without IV Contrast Zoe Hope M.D., M.S. [address] [place] [address] [facility] Region Referral ID Status Reason Start Date Expiration Date Visits Re quested Visits Authorized [id number] Closed 05/16/2023 05/15/2024 1 1 R ECONOMICS TEACHER Reason for Visit * Reason Comments Head Injury Knee Injury * Appointment Request (Routine) - Closed Specialty Diagnoses / Procedures Referred By Treva field Referred To Contact Family Medicine Referral ID Status Reason Start Date Expiration Date Visits Re quested Visits Authorized [id number] Closed 05/16/2023 05/15/2024 1 1 Encounter Details Date Type Department Care Team (Late st Contact Info) Description 05/16/2023 3:00 PM LABOR ECONOMICS TEACHER Office Visit Department of Family Medicine, [facility], in [place], [place] [address] [place] [address] Zoe Hope M.D., M.S. [address] [place] [phone] Injury Head Initial (Primary Dx); History Of [...] Answer Date Recorded PHQ-2 Score 0 06/26/2021 [facility] of Occupat ional Health - Occupational Stress [...] Comments Blood Pressure 150/89 05/16/2023 2:41 PM LABOR ECONOMICS TEACHER Pulse 111 05/16/2023 2:41 PM LABOR ECONOMICS TEACHER Temperature 37.5 ??C (99.5 ??F) 05/16/2023 2:41 PM CS T Respiratory Rate - - Oxygen Saturation - - Inhaled Oxygen Concentration - - Weight 56.7 kg (125 lb) 05/16/2023 2:41 PM LABOR ECONOMICS TEACHER Height - - Body Mass Index 22.07 05/26/2022 9:30 AM LABOR ECONOMICS TEACHER documented in this encounter Patient Instructions * Patient Instructions* Zoe Hope M.D., M.S. - 05/16/2023 3:00 PM LABOR ECONOMICS TEACHER -recommend considering TTE or holter to rule out ardiac etiology given syncopal episode. R ECONOMICS TEACHER documented in this encounter Progress Notes * [...] has an appointment with her PCP at [facility] tomorrow, recommendations were printed out for patient). [...] of the content. Josesito Hope M.D., M.S. R ECONOMICS TEACHER documented in this encounter Plan of Treatment Not on file documented as of this encounter Procedures Procedure Name Priority Date/Time Associated Diagnosis Comments BACTERIAL CULTURE, AEROBIC + SUSC, URINE Routine 05/16/2023 4:06 PM LABOR ECONOMICS TEACHER Injury Head Initial URINALYSIS WITH MICROSCOPIC Routine 05/16/2023 4:06 PM LABOR ECONOMICS TEACHER Injury Head Initial CBC WITH DIFFERENTIAL, B Routine 05/16/2023 4:05 PM LABOR ECONOMICS TEACHER Injury Head Initial PHOSPHORUS (INORGANIC), S Routine 05/16/2023 4:05 PM LABOR ECONOMICS TEACHER Injury Head Initial MAGNESIUM, S Routine 05/16/2023 4:05 PM LABOR ECONOMICS TEACHER Injury Head Initial ECG Routine 05/16/2023 3:50 PM LABOR ECONOMICS TEACHER Injury Head Initial BASIC METABOLIC PANEL, S/P Routine 05/16/2023 3:35 PM LABOR ECONOMICS TEACHER Injury Head Initial FERRITIN, S Routine 05/16/2023 1:35 PM LABOR ECONOMICS TEACHER Injury Head Initial documented in this encounter Results * CT Head without IV Contrast (05/16/2023 4:29 PM LABOR ECONOMICS TEACHER) Anatomical Region Laterality Modality Head, Neuroradiology RST LOS , Neuroradiology ARZ LOS, Neuroradiology FLA LOS N/A Computed Tomography 05/16/2023 4:26 PM LABOR ECONOMICS TEACHER Impressions 05/16/2023 4:55 PM LABOR ECONOMICS TEACHER Cerebral atrophy and small vessel ischemic disease. Otherwise normal CT of the head without contrast. Narrative 05/16/2023 4:55 PM LABOR ECONOMICS TEACHER EXAM: CT HEAD WITHOUT IV CONTRAST COMPARISON: [...] Aerobic + Susceptibility, Urine (05/16/2023 4:06 PM LABOR ECONOMICS TEACHER) Pathologist [facility] Urine Culture No growth after 1 day of incubation. 05/18/2023 8:29 AM LABOR ECONOMICS TEACHER [facility] Urine (Urine, Midstream) 05/16/2023 4:06 PM LABOR ECONOMICS TEACHER 05/17/2023 1:48 PM LABOR ECONOMICS TEACHER Comment:Specimen Source Site : Urine Zoe Hope M.D., M.S. LAB MICROBIOLOGY - GENERAL ORDERABLES [facility] [address] [place] [address], [facility] in [place] [address] [place] [address] * Urinalysis with Microscopic: Urine, Midstream (05/16/2023 4:06 PM LABOR ECONOMICS TEACHER) Source Urine, Urine, Midstream 05/16/2023 4:45 PM LABOR ECONOMICS TEACHER OWAT Clarity Clear Clear 05/16/2023 4:47 PM LABOR ECONOMICS TEACHER OWAT Color Yellow 05/16/2023 4:45 PM LABOR ECONOMICS TEACHER OWAT Comment: ----REFERENCE VALUE---- Colorless Yellow Ny Blood Negative Negative 05/16/2023 4:45 PM LABOR ECONOMICS TEACHER OWAT Nitrite Negative Negative 05/16/2023 4:45 PM LABOR ECONOMICS TEACHER OWAT Leukocyte Esterase Negative Negative 05/16/2023 4:45 PM LABOR ECONOMICS TEACHER OWAT Protein Negative mg/dL 05/16/2023 4:45 PM LABOR ECONOMICS TEACHER OWAT Comment: ----REFERENCE VALUE---- Negative Trace Glucose Negative Negative mg/dL 05/16/2023 4:45 PM LABOR ECONOMICS TEACHER OWAT Ketone Negative Negative mg/dL 05/16/2023 4:45 PM LABOR ECONOMICS TEACHER OWAT Bilirubin Negative Negative 05/16/2023 4:45 PM LABOR ECONOMICS TEACHER OWAT pH 5.5 5.0 - 8.0 05/16/2023 4:45 PM LABOR ECONOMICS TEACHER OWAT Specific [place] 1.005 1.001 - 1.035 05/16/2023 4:45 PM LABOR ECONOMICS TEACHER OWAT Urobilinogen 0.2 0.2 - 1.0 mg/dL 05/16/2023 4:45 PM LABOR ECONOMICS TEACHER OWAT White Blood Cells None Seen /hpf 05/16/2023 4:47 PM LABOR ECONOMICS TEACHER OWAT Comment: ----REFERENCE VALUE---- Males: 0-3 Females: 0-10 Unknown: 0-10 Red Blood Cells None Seen 0 - 2 /hpf 4:47 PM LABOR ECONOMICS TEACHER OWAT Hyaline Casts 1-3 /lpf 05/16/2023 4:47 PM LABOR ECONOMICS TEACHER OWAT Urine (Urine, Midstream) 05/16/2023 4:06 PM LABOR ECONOMICS TEACHER 05/16/2023 4:41 PM LABOR ECONOMICS TEACHER Zoe Hope M.D., M.S. LAB URINE ORDERABLE S [facility] [address], [place] [address], [facility] OWAT [facility] [place] [address] [place] [address] * Phosphorus Inorganic (05/16/2023 4:05 PM LABOR ECONOMICS TEACHER) Phosphorus (Inorganic), P 3.7 2.5 - 4.5 mg/dL 05/17/2023 3:17 PM LABOR ECONOMICS TEACHER [place] Blood (Blood, Venous) 05/16/2023 4:05 PM LABOR ECONOMICS TEACHER 05/17/2023 3:02 PM LABOR ECONOMICS TEACHER Zoe Hope M.D., M.S. LAB BLOOD ADD-ON Performing Organization Address City/[facility]/ZIP Co de Phone Number [facility] [address] [place] [address], [place] [facility] [address] [place] [address] * Magnesium (05/16/2023 4:05 PM LABOR ECONOMICS TEACHER) Magnesium, P 2.3 1.7 - 2.3 mg/dL 05/16/2023 4:17 PM LABOR ECONOMICS TEACHER OWAT Blood (Blood, Venous) 05/16/2023 4:05 PM LABOR ECONOMICS TEACHER 05/16/2023 4:05 PM LABOR ECONOMICS TEACHER Zoe Hope M.D. MEldaS. LAB BLOOD ADD-ON Performing Organization Address City/[facility] Co de Phone Number [facility] [address] [place] [address], [facility] OWAT [facility] in [place] [address] [place] [address] * (ABNORMAL) CBC with Differential, Blood (05/16/2023 4:05 PM LABOR ECONOMICS TEACHER) Pathologist [facility] Hemoglobin 13.3 11.6 - 15.0 g/dL 05/16/2023 4:09 PM LABOR ECONOMICS TEACHER OWAT Hematocrit 39.5 35.5 - 44.9 % 05/16/2023 4:09 PM LABOR ECONOMICS TEACHER OWAT Erythrocytes 4.28 3.92 - 5.13 x10(12)/L 05/16/2023 4:09 PM LABOR ECONOMICS TEACHER OWAT MCV 92.3 78.2 - 97.9 fL 05/16/2023 4:09 PM LABOR ECONOMICS TEACHER OWAT RBC Distrib Width 12.2 12.2 - 16.1 % 05/16/2023 4:09 PM LABOR ECONOMICS TEACHER OWAT Platelet Count 433(H) 157 - 371 x10(9)/L 05/16/2023 4:09 PM LABOR ECONOMICS TEACHER OWAT Leukocytes 10.2(H) 3.4 - 9.6 x10(9)/L 05/16/2023 4:09 PM LABOR ECONOMICS TEACHER OWAT Neutrophils 6.87(H) 1.56 - 6.45 x10(9)/L 05/16/2023 4:09 PM LABOR ECONOMICS TEACHER OWAT Lymphocytes 2.46 0.95 - 3.07 x10(9)/L 05/16/2023 4:09 PM LABOR ECONOMICS TEACHER OWAT Monocytes 0.70 0.26 - 0.81 x10(9)/L 05/16/2023 4:09 PM LABOR ECONOMICS TEACHER OWAT Eosinophils 0.07 0.03 - 0.48 x10(9)/L 05/16/2023 4:09 PM LABOR ECONOMICS TEACHER OWAT Basophils 0.05 0.01 - 0.08 x10(9)/L 05/16/2023 4:09 PM LABOR ECONOMICS TEACHER OWAT Blood (Blood, Venous) 05/16/2023 4:05 PM LABOR ECONOMICS TEACHER 05/16/2023 4:05 PM LABOR ECONOMICS TEACHER Zoe Hope M.D., M.S. LAB BLOOD ADD-ON [facility] [address] [place] [address], [facility] OWAT [facility] [place] [address] [place] [address] * ECG 12 Lead (05/16/2023 3:50 PM LABOR ECONOMICS TEACHER) Ventricular Rate ECG/Min 92 BPM MUSE SD Interval 148 ms MUSE QRSD Interval 80 ms MUSE QT Interval 356 ms MUSE QTC Interval 440 ms MUSE P [place] 70 degrees MUSE R [place] 55 degrees MUSE T Wave [place] 36 degrees MUSE 05/16/2023 3:50 PM LABOR ECONOMICS TEACHER 05/16/2023 4:23 PM LABOR ECONOMICS TEACHER Impressions MUSE - 05/16/2023 4:23 PM LABOR ECONOMICS TEACHER Normal sinus rhythm Normal ECG When compared [...] (ABNORMAL) Basic Metabolic Panel (05/16/2023 3:35 PM LABOR ECONOMICS TEACHER) Potassium, P 4.3 3.6 - 5.2 mmol/L 05/16/2023 4:40 PM LABOR ECONOMICS TEACHER OWAT Sodium, P 134(L) 135 - 145 mmol/L 05/16/2023 4:40 PM LABOR ECONOMICS TEACHER OWAT Chloride, P 97(L) 98 - 107 mmol/L 05/16/2023 4:40 PM LABOR ECONOMICS TEACHER OWAT Bicarbonate, P 24 22 - 29 mmol/L 05/16/2023 4:40 PM LABOR ECONOMICS TEACHER OWAT Anion Gap, P 13 7 - 15 05/16/2023 4:40 PM LABOR ECONOMICS TEACHER OWAT BUN (Blood Urea Nitrogen), P 16 6 - 21 mg/dL 05/16/2023 4:40 PM LABOR ECONOMICS TEACHER OWAT Creatinine 0.81 0.59 - 1.04 mg/dL 05/16/2023 4:40 PM LABOR ECONOMICS TEACHER OWAT Estimated GFR (eGFR) 75 >=60 mL/min/BSA 05/16/2023 4:40 PM LABOR ECONOMICS TEACHER OWAT Comment: Estimated GFR calculated using the 2020 CKD_EPI creatinine equation. Calcium, Total, P 9.8 8.8 - 10.2 mg/dL 05/16/2023 4:40 PM LABOR ECONOMICS TEACHER OWAT Glucose, P 102 70 - 140 mg/dL 05/16/2023 4:40 PM LABOR ECONOMICS TEACHER OWAT Blood (Blood, Venous) 05/16/2023 3:35 PM LABOR ECONOMICS TEACHER 05/16/2023 4:22 PM LABOR ECONOMICS TEACHER Zoe Hope M.D., M.S. LAB BLOOD ADD-ON [facility] [address] [place] [address], [place] OWAT [facility] [place] [address] [place] [address] * Ferritin (05/16/2023 1:35 PM LABOR ECONOMICS TEACHER) Ferritin, S 192 11 - 328 mcg/L 05/17/2023 9:14 AM LABOR ECONOMICS TEACHER OWAT Comment: Biotin has been identified by the front office attendant as a potential interfering substance. Higher concentrations of biotin may be found in multivitamins, hair/nail supplements, and workout supplements. If the result does not match clinical observations, repeat testing after patient refrains from the use of supplements for at least 12 hours. Blood (Blood, Venous) 05/16/2023 1:35 PM LABOR ECONOMICS TEACHER 05/16/2023 4:07 PM LABOR ECONOMICS TEACHER Zoe Hope M.D., M.S. LAB BLOOD ADD-ON [facility] [address], [place] [address], [facility] OWAT [facility] [place] [address], [place] [address] documented in this encounter Visit Diagnoses Diagnosis Injury Head Initial- Primary History Of Falling Injury Head Initial documented in this encounter Additional Health Concerns Assessment Noted Time PHQ-9 Depression Total Score: 1 06/02/19 18 9:34 AM LABOR ECONOMICS TEACHER documented as of this encounter Care Teams Hide Mill Man Relationship Specialty Start Date End Date Tigre Preciado P.A.-C., P.A. PCP - General Family Medicine 10/11/19 documented as of this encounter
--- OUTSIDE RECORDS SUMMARY | 2023-06-02 10:09 | XMS_ITS | Encounter Summary ---
Author Name Unknown Organization [facility] Address [address] [place] [address] Care Team Providers Care Learning Developer Name Role Phone Tigre Preciado P.A.-C., P.A. Primary Care Pr ovider Reason for Visit * Outpatient (Routine) - Closed Specialty Diagnoses / Procedures Referred By Contac t Referred To Contact Diagnoses Injury Head Initial Procedures DX Knee Left 4+ Views DX Knee Left 3 Views Zoe Hope M.D., M.S. [address] [place] [address] [facility] Region Referral ID Status Reason Start Date Expiration Date Visits Re quested Visits Authorized [id number] Closed 05/16/2023 05/15/2024 1 1 Encounter Details Date Type Department Care Team (Latest Contact Info) Description 05/16/2023 3:57 PM PULP ROLLER - 05/16/2023 11:59 PM PULP ROLLER Hospital Encounter Department of Radiology in [place], [place] [address] [place] [address] Zoe Hope M.D., M.S. [address] [place] [address] Injury Head Initial Discharge Disposition: [...] Answer Date Recorded PHQ-2 Score 0 06/26/2021 [facility] of Occupat ional Health - [...] needed for wheezing. 8 g 3 07/02/2021 azithromycin (ZITHROMAX) 250 mg tablet Take 1 tablet by mouth as directed. BRONCHITIS 0 08/11/2022 calcium carbonate-vitamin D3 1,250 mg (500 mg [...] mouth and swallow 280 mL 0 07/02/2021 Paxlovid 300 mg (150 mg x 2)-100 mg dose pack Take 3 tablets by mouth 2 (two) times a day. 0 05/10/2023 SUMAtriptan (IMITREX) 25 mg tablet TAKE 1 TABLET BY MOUTH NEEDED FOR MIGRAINE. MAY REPEAT DOSE ONCE IN 2 HOURS IF MIGRAINE UNRESOLVED. 9 tablet 5 07/31/2022 vitamin A,C,E-vdswqx-ikunsbom (OCUVITE W/LUTEIN) 1,000 Unit-200 mg-60 Unit-2 mg tablet Take 1 tablet by mouth as needed. 0 zoledronic lrdj-vknenvuG-ynhmv (RECLAST) 5 mg/100 mL piggyback Infuse 5 mg into a venous catheter once. Once yearly- last dose 06/10/22 0 documented as of this encounter Plan of Treatment Not on file documented as of this encounter Procedures Procedure Name Priority Date/Time Associated Diagnosis Comments DX KNEE LEFT 4+ VIEWS RAD - Semiurgent (Fast; most ED patients; some inpatients) 05/16/2023 4:34 PM PULP ROLLER Injury Head Initial documented in this encounter Results * DX Knee Left 4+ Views (05/16/2023 4:34 PM PULP ROLLER) Anatomical Region Laterality Modality Lower Extremity, Knee, Muscu loskeletal RST LOS, Musculoskeletal ARZ LOS, Muskuloskeletal FLA LOS Left Digit al Radiography Impressions 05/16/2023 4:38 PM PULP ROLLER Approximately 14.2 x 3.3 cm region of consolidation along the medial left knee, suggestive of hemorrhage, possibly due to medial collateral ligament damage. Narrative 05/16/2023 4:38 PM PULP ROLLER EXAM: DX KNEE LEFT 4+ VIEWS COMPARISON: [...] Total Score: 1 06/02/19 18 9:34 AM PULP ROLLER documented as of this encounter Care Teams Learning Developer Relationship Specialty Start Date End Date Tigre Preciado P.A.-C., P.A. PCP - General Family Medicine 10/11/19 documented as of this encounter
--- OUTSIDE RECORDS SUMMARY | 2023-06-02 10:09 | XMS_ITS | Encounter Summary ---
Author Name Unknown Organization [facility] Address [address] [place] [address] Care Team Providers Care Hand Woodworking Sander Name Role Phone Tigre Preciado P.A.-C., P.A. Primary Care Pr ovider Reason for Referral * MRI/CAT/PET Scan (Routine) - Closed Specialty Diagnoses / Procedures Referred By Treva field Referred To Contact Radiology Diagnoses Injury Head Initial Procedures CT Head without IV Contrast Zoe Hope M.D., M.S. [address] [place] [address] [facility] Region Referral ID Status Reason Start Date Expiration Date Visits Re quested Visits Authorized [id number] Closed 05/16/2023 05/15/2024 1 1 TIC TECHNICIAN Reason for Visit * MRI/CAT/PET Scan (Routine) - Closed Specialty Diagnoses / Procedures Referred By Treva field Referred To Contact Radiology Diagnoses Injury Head Initial Procedures CT Head without IV Contrast Zoe Hope M.D., M.S. [address] [place] [address] [facility] Region Referral ID Status Reason Start Date Expiration Date Visits Re quested Visits Authorized [id number] Closed 05/16/2023 05/15/2024 1 1 Encounter Details Date Type Department Care Team (Latest Contact Info) Description 05/16/2023 3:56 PM ROBOTIC TECHNICIAN Hospital Encounter Department of Radiology in [place], [place] [address] [place] [address] Zoe Hope M.D., M.S. [address] [place] [address] Injury Head Initial Discharge Disposition: [...] MIGRAINE UNRESOLVED. 9 tablet 5 07/31/2022 vitamin A,C,O-xiupot-ytgxagvm (OCUVITE W/LUTEIN) 1,000 Unit-200 mg-60 Unit-2 mg tablet Take 1 tablet by mouth as needed. 0 zoledronic skyv-wcfwmqnQ-ladlo (RECLAST) 5 mg/100 mL piggyback Infuse 5 mg into a venous catheter once. Once yearly- last dose 06/10/22 0 documented as of this encounter Plan of Treatment Not on file documented as of this encounter Procedures Procedure Name Priority Date/Time Associated Diagnosis Comments CT HEAD WITHOUT IV CONTRAST RAD - Semiurgent (Fast; most ED patients; some inpatients) 05/16/2023 4:29 PM ROBOTIC TECHNICIAN Injury Head Initial documented in this encounter Results * CT Head without IV Contrast (05/16/2023 4:29 PM ROBOTIC TECHNICIAN) Anatomical Region Laterality Modality Head, Neuroradiology RST LOS , Neuroradiology ARZ LOS, Neuroradiology FLA LOS N/A Computed Tomography 05/16/2023 4:26 PM ROBOTIC TECHNICIAN Impressions 05/16/2023 4:55 PM ROBOTIC TECHNICIAN Cerebral atrophy and small vessel ischemic disease. Otherwise normal CT of the head without contrast. Narrative 05/16/2023 4:55 PM ROBOTIC TECHNICIAN EXAM: CT HEAD WITHOUT IV CONTRAST COMPARISON: [...] Total Score: 1 06/02/19 18 9:34 AM ROBOTIC TECHNICIAN documented as of this encounter Care Teams Hand Woodworking Sander Relationship Specialty Start Date End Date Tigre Preciado P.A.-C., P.A. PCP - General Family Medicine 10/11/19 documented as of this encounter
--- OUTSIDE RECORDS SUMMARY | 2023-06-02 10:09 | XMS_ITS ---
Author Name Unknown Organization [facility] Address [address] [place] [address] Care Team Providers Care Front Office Agent Name Role Phone Unavailable Unavailable Unavailable Surgery Details Not on file Complications Check Surgery Details section. Procedure Estimated Blood Loss Check Surgery Details section. Procedure Findings Check Surgery Details section. Procedure Specimens Taken Check Surgery Details section.
--- OUTSIDE RECORDS SUMMARY | 2023-06-02 10:09 | XMS_ITS | Encounter Summary ---
Author Name Unknown Organization [facility] Address [address] [place] [address] Care Team Providers Care Steel Checker Name Role Phone Tigre Preciado P.A.-C., P.A. Primary Care Pr ovider Encounter Details Date Type Department Care Team (Late st Contact Info) Description 05/16/2023 Clinical Communication Department of Orthopedic Surgery in [place], [place] [address] [place] [phone] Sebastián Esteban M.D. [address] [place] [address] Social History Tobacco Use Types Packs/Day Years [...] Answer Date Recorded PHQ-2 Score 0 06/26/2021 [facility] [place] of Occupat ional Health - Occupational Stress [...] Sebastián Esteban M.D. - 05/16/2023 4:54 PM WELL SERVICE FLOOR WORKER I was called by primary care in [...] primary care provider for further follow up. SERVICE FLOOR WORKER documented in this encounter Plan of Treatment Not on file documented as of this encounter Visit Diagnoses Not on filedocumented in this encounter Additional Health Concerns Assessment Noted Time PHQ-9 Depression Total Score: 1 06/02/19 18 9:34 AM WELL SERVICE FLOOR WORKER documented as of this encounter Care Teams Steel Checker Relationship Specialty Start Date End Date Tigre Preciado P.A.-C., P.A. PCP - General Family Medicine 10/11/19 documented as of this encounter
--- OUTSIDE RECORDS SUMMARY | 2023-06-02 10:09 | XMS_ITS | Referral Summary ---
Author Name Unknown Organization [facility] Address [address] [place] [address] Care Team Providers Care Remedial Masseur Name Role Phone Tigre Preciado P.A.-C., P.A. Primary Care Pr ovider Source Comments Patient records contain information from all sites at [facility]. For routine questions regarding patient records, call [phone] during business hours, M-F 8:00 AM - 5:00 PM Central Time. Record requests for emergency care only can be directed to [phone] at any time.[facility] Encounters Date Type Department Care Team Description 05/25/2023 Orders Only [facility] Tigre Preciado P.A.-C., P.A. 05/16/2023 Clinical Communication Department of Orthopedic Surgery in [place], [place] [address] [place] [phone] Sebastián Esteban M.D. 05/16/2023 3:57 PM POISER - 05/16/2023 11:59 PM POISER Hospital Encounter Department of Radiology in [place], [place] [address], [place] [address] Zoe Hope M.D., M.S. Injury Head Initial Discharge Disposition: Home or Self Care 05/16/2023 3:56 PM POISER Hospital Encounter Department of Radiology in [place], [place] [address] [place] [phone] Zoe Hope M.D., M.S. Injury Head Initial Discharge Disposition: Home or Self Care 05/16/2023 3:00 PM POISER Office Visit Department of Family Medicine, [facility], in [place], [place] [address] [place] [phone] Zoe Hope M.D., M.S. Injury Head Initial (Primary Dx); History Of Falling 05/16/2023 Nurse Triage Department of [facility], [facility], in [place], [place] [address], [place] [address] Valerie Wadsworth R.N. Head Injury; [...] mg by mouth daily. 0 Active vitamin A,C,J-vzrbuf-sfmfx als (OCUVITE W/LUTEIN) 1,000 Unit-200 mg-60 Unit-2 [...] wheezing. 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 We also discussed management options with vaginal [...] Answer Date Recorded PHQ-2 Score 0 06/26/2021 [facility] - Occupational [...] Comments Blood Pressure 150/89 05/16/2023 2:41 PM POISER Pulse 111 05/16/2023 2:41 PM POISER Temperature 37.5 ??C (99.5 ??F) 05/16/2023 2:41 PM CS T Respiratory Rate 16 08/15/2022 12:16 PM CDT Oxygen Saturation 99% 08/15/2022 12:16 PM CDT Inhaled Oxygen Concentration - - Weight 56.7 kg (125 lb) 05/16/2023 2:41 PM POISER Height 160.3 cm (5' 3.11) 05/26/2022 9:30 AM CS T Body Mass Index 22.07 05/26/2022 9:30 AM POISER Plan of Treatment Not on file Procedures Procedure Name Priority Date/Time Associated Diagnosis Comments DX KNEE LEFT 4+ VIEWS RAD - Semiurgent (Fast; most ED patients; some inpatients) 05/16/2023 4:34 PM POISER Injury Head Initial CT HEAD WITHOUT IV CONTRAST RAD - Semiurgent (Fast; most ED patients; some inpatients) 05/16/2023 4:29 PM POISER Injury Head Initial URINALYSIS WITH MICROSCOPIC Routine 05/16/2023 4:06 PM POISER Injury Head Initial BACTERIAL CULTURE, AEROBIC + SUSC, URINE Routine 05/16/2023 4:06 PM POISER Injury Head Initial CBC WITH DIFFERENTIAL, B Routine 05/16/2023 4:05 PM POISER Injury Head Initial MAGNESIUM, S Routine 05/16/2023 4:05 PM POISER Injury Head Initial PHOSPHORUS (INORGANIC), S Routine 05/16/2023 4:05 PM POISER Injury Head Initial ECG Routine 05/16/2023 3:50 PM POISER Injury Head Initial BASIC METABOLIC PANEL, S/P Routine 05/16/2023 3:35 PM POISER Injury Head Initial FERRITIN, S Routine 05/16/2023 1:35 PM POISER Injury Head Initial from Last 3 Months Results * DX Knee Left 4+ Views (05/16/2023 4:34 PM POISER) Anatomical Region Laterality Modality Lower Extremity, Knee, Muscu loskeletal RST LOS, Musculoskeletal ARZ LOS, Muskuloskeletal FLA LOS Left Digit al Radiography Impressions 05/16/2023 4:38 PM POISER Approximately 14.2 x 3.3 cm region of consolidation along the medial left knee, suggestive of hemorrhage, possibly due to medial collateral ligament damage. Narrative 05/16/2023 4:38 PM POISER EXAM: DX KNEE LEFT 4+ VIEWS COMPARISON: [...] Head without IV Contrast (05/16/2023 4:29 PM POISER) Anatomical Region Laterality Modality Head, Neuroradiology RST LOS , Neuroradiology ARZ LOS, Neuroradiology FLA LOS N/A Computed Tomography 05/16/2023 4:26 PM POISER Impressions 05/16/2023 4:55 PM POISER Cerebral atrophy and small vessel ischemic disease. Otherwise normal CT of the head without contrast. Narrative 05/16/2023 4:55 PM POISER EXAM: CT HEAD WITHOUT IV CONTRAST COMPARISON: [...] Aerobic + Susceptibility, Urine (05/16/2023 4:06 PM POISER) Urine Culture No growth after 1 day of incubation. 05/18/2023 8:29 AM POISER MKTO Urine (Urine, Midstream) 05/16/2023 4:06 PM POISER 05/17/2023 1:48 PM POISER Comment:Specimen Source Site : Urine Zoe Hope M.D., M.S. LAB MICROBIOLOGY - GENERAL ORDERABLES [facility] [address] [place] [address], [place] MK[place] [facility] [place] [address] [place] [address] * Urinalysis with Microscopic: Urine, Midstream (05/16/2023 4:06 PM POISER) Source Urine, Urine, Midstream 05/16/2023 4:45 PM POISER OWAT Clarity Clear Clear 05/16/2023 4:47 PM POISER OWAT Color Yellow 05/16/2023 4:45 PM POISER OWAT Comment: ----REFERENCE VALUE---- Colorless Yellow Ny Blood Negative Negative 05/16/2023 4:45 PM POISER OWAT Nitrite Negative Negative 05/16/2023 4:45 PM POISER OWAT Leukocyte Esterase Negative Negative 05/16/2023 4:45 PM POISER OWAT Protein Negative mg/dL 05/16/2023 4:45 PM POISER OWAT Comment: ----REFERENCE VALUE---- Negative Trace Glucose Negative Negative mg/dL 05/16/2023 4:45 PM POISER OWAT Ketone Negative Negative mg/dL 05/16/2023 4:45 PM POISER OWAT Bilirubin Negative Negative 05/16/2023 4:45 PM POISER OWAT pH 5.5 5.0 - 8.0 05/16/2023 4:45 PM POISER OWAT Specific [place] 1.005 1.001 - 1.035 05/16/2023 4:45 PM POISER OWAT Urobilinogen 0.2 0.2 - 1.0 mg/dL 05/16/2023 4:45 PM POISER OWAT White Blood Cells None Seen /hpf 05/16/2023 4:47 PM POISER OWAT Comment: ----REFERENCE VALUE---- Males: 0-3 Females: 0-10 Unknown: 0-10 Red Blood Cells None Seen 0 - 2 /hpf 4:47 PM POISER OWAT Hyaline Casts 1-3 /lpf 05/16/2023 4:47 PM POISER OWAT Urine (Urine, Midstream) 05/16/2023 4:06 PM POISER 05/16/2023 4:41 PM POISER Zoe Hope M.D. M.S. LAB URINE ORDERABLE S [facility] [address] [place] [address], [place] OWAT [facility] [place] [address] [place] [address] * (ABNORMAL) CBC with Differential, Blood (05/16/2023 4:05 PM POISER) Hemoglobin 13.3 11.6 - 15.0 g/dL 05/16/2023 4:09 PM POISER OWAT Hematocrit 39.5 35.5 - 44.9 % 05/16/2023 4:09 PM POISER OWAT Erythrocytes 4.28 3.92 - 5.13 x10(12)/L 05/16/2023 4:09 PM POISER OWAT MCV 92.3 78.2 - 97.9 fL 05/16/2023 4:09 PM POISER OWAT RBC Distrib Width 12.2 12.2 - 16.1 % 05/16/2023 4:09 PM POISER OWAT Platelet Count 433(H) 157 - 371 x10(9)/L 05/16/2023 4:09 PM POISER OWAT Leukocytes 10.2(H) 3.4 - 9.6 x10(9)/L 05/16/2023 4:09 PM POISER OWAT Neutrophils 6.87(H) 1.56 - 6.45 x10(9)/L 05/16/2023 4:09 PM POISER OWAT Lymphocytes 2.46 0.95 - 3.07 x10(9)/L 05/16/2023 4:09 PM POISER OWAT Monocytes 0.70 0.26 - 0.81 x10(9)/L 05/16/2023 4:09 PM POISER OWAT Eosinophils 0.07 0.03 - 0.48 x10(9)/L 05/16/2023 4:09 PM POISER OWAT Basophils 0.05 0.01 - 0.08 x10(9)/L 05/16/2023 4:09 PM POISER OWAT Blood (Blood, Venous) 05/16/2023 4:05 PM POISER 05/16/2023 4:05 PM POISER Zoe Hope M.D., M.S. LAB BLOOD ADD-ON [facility] [address] [facility] [place] [address], [place] OWAT [facility] [place] [address] [place] [address] * Phosphorus Inorganic (05/16/2023 4:05 PM POISER) Phosphorus (Inorganic), P 3.7 2.5 - 4.5 mg/dL 05/17/2023 3:17 PM POISER AUST Blood (Blood, Venous) 05/16/2023 4:05 PM POISER 05/17/2023 3:02 PM POISER Zoe Hope M.D., M.S. LAB BLOOD ADD-ON Performing Organization Address City/[facility] Co de Phone Number [facility] [address] [place] [address], [facility] AUST Nick Lab - [facility] [address] [place] [address] * Magnesium (05/16/2023 4:05 PM POISER) Magnesium, P 2.3 1.7 - 2.3 mg/dL 05/16/2023 4:17 PM POISER OWAT Blood (Blood, Venous) 05/16/2023 4:05 PM POISER 05/16/2023 4:05 PM POISER Zoe Hope M.D., M.S. LAB BLOOD ADD-ON Performing Organization Address City/[facility]/ZIP Co de Phone Number [facility] [address] [place] [address], [place] OWAT [facility] [place] [address] [place] [address] * ECG 12 Lead (05/16/2023 3:50 PM POISER) Ventricular Rate ECG/Min 92 BPM MUSE NV Interval 148 ms MUSE QRSD Interval 80 ms MUSE QT Interval 356 ms MUSE QTC Interval 440 ms MUSE P [place] 70 degrees MUSE R [place] 55 degrees MUSE T Wave [place] 36 degrees MUSE 05/16/2023 3:50 PM POISER 05/16/2023 4:23 PM POISER Impressions MUSE - 05/16/2023 4:23 PM POISER Normal sinus rhythm Normal ECG When compared [...] (ABNORMAL) Basic Metabolic Panel (05/16/2023 3:35 PM POISER) Potassium, P 4.3 3.6 - 5.2 mmol/L 05/16/2023 4:40 PM POISER OWAT Sodium, P 134(L) 135 - 145 mmol/L 05/16/2023 4:40 PM POISER OWAT Chloride, P 97(L) 98 - 107 mmol/L 05/16/2023 4:40 PM POISER OWAT Bicarbonate, P 24 22 - 29 mmol/L 05/16/2023 4:40 PM POISER OWAT Anion Gap, P 13 7 - 15 05/16/2023 4:40 PM POISER OWAT BUN (Blood Urea Nitrogen), P 16 6 - 21 mg/dL 05/16/2023 4:40 PM POISER OWAT Creatinine 0.81 0.59 - 1.04 mg/dL 05/16/2023 4:40 PM POISER OWAT Estimated GFR (eGFR) 75 >=60 mL/min/BSA 05/16/2023 4:40 PM POISER OWAT Comment: Estimated GFR calculated using the 2020 CKD_EPI creatinine equation. Calcium, Total, P 9.8 8.8 - 10.2 mg/dL 05/16/2023 4:40 PM POISER OWAT Glucose, P 102 70 - 140 mg/dL 05/16/2023 4:40 PM POISER OWAT Blood (Blood, Venous) 05/16/2023 3:35 PM POISER 05/16/2023 4:22 PM POISER Zoe Hoep M.D., M.S. LAB BLOOD ADD-ON Performing Organization Address [facility] Co de Phone Number [facility] [address], [place] [address], [facility] OWAT [facility] [place] [address] [place] [address] * Ferritin (05/16/2023 1:35 PM POISER) Ferritin, S 192 11 - 328 mcg/L 05/17/2023 9:14 AM POISER OWAT Comment: Biotin has been identified by the turf and grounds supervisor as a potential interfering substance. Higher concentrations of biotin may be found in multivitamins, hair/nail supplements, and workout supplements. If the result does not match clinical observations, repeat testing after patient refrains from the use of supplements for at least 12 hours. Blood (Blood, Venous) 05/16/2023 1:35 PM POISER 05/16/2023 4:07 PM POISER Zoe Hope M.D., M.S. LAB BLOOD ADD-ON Performing Organization Address City/[facility]/ZIP Co de Phone Number [facility] [address] [place] [address], [place] OWAT [facility] [place] [address], [place] [address] from Last 3 Months Care Teams Remedial Masseur Relationship Specialty Start Date End Date Tigre Preciado P.A.-C., P.A. PCP - General Family Medicine 10/11/19
--- OUTSIDE RECORDS SUMMARY | 2023-06-02 10:09 | XMS_ITS | Clinical Summary ---
Author Name Unknown Organization [facility] Address [address] [place] [address] Care Team Providers Care Casserole Preparer Name Role Phone Tigre Preciado P.A.-C., P.A. Primary Care Pr ovider Source Comments Patient records contain information from all sites at [facility]. For routine questions regarding patient records, call [phone] during business hours, M-F 8:00 AM - 5:00 PM Central Time. Record requests for emergency care only can be directed to [phone] at any time.[facility] Allergies Active Allergy Reactions Criticality Noted Date [...] mg by mouth daily. 0 Active vitamin A,C,V-gdedjr-lwlex als (OCUVITE W/LUTEIN) 1,000 Unit-200 mg-60 Unit-2 [...] wheezing. 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 We also discussed management options with [...] Tigre Preciado P.A.Chery., P.A. 05/16/2023 3:57 PM TANK WELDER - 05/16/2023 11:59 PM TANK WELDER Hospital Encounter Department of Radiology in [place], [place] [address] [place] [phone] Zoe Hope M.D., M.S. Injury Head Initial Discharge Disposition: Home or Self Care 05/16/2023 3:56 PM TANK WELDER Hospital Encounter Department of Radiology in [address] [phone] Zoe Hope M.D., M.S. Injury Head Initial Discharge Disposition: Home or Self Care 05/16/2023 3:00 PM TANK WELDER Office Visit Department of Family Medicine, [facility], in [place], [place] [address] [place] [phone] Zoe Hope M.D., M.S. Injury Head Initial (Primary Dx); History Of Falling 05/16/2023 Clinical Communication Department of Orthopedic Surgery in [address] [phone] Sebastián Esteban M.D. 05/16/2023 Nurse Triage Department of Family Medicine, [facility], in [place], [place] [address] [place] [phone] Valerie Wadsworth R.N. Head Injury; Knee Injury [...] Answer Date Recorded PHQ-2 Score 0 06/26/2021 [facility] Occupat ional Health - Occupational Stress [...] Comments Blood Pressure 150/89 05/16/2023 2:41 PM TANK WELDER Pulse 111 05/16/2023 2:41 PM TANK WELDER Temperature 37.5 ??C (99.5 ??F) 05/16/2023 2:41 PM CS T Respiratory Rate 16 08/15/2022 12:16 PM CDT Oxygen Saturation 99% 08/15/2022 12:16 PM CDT Inhaled Oxygen Concentration - - Weight 56.7 kg (125 lb) 05/16/2023 2:41 PM TANK WELDER Height 160.3 cm (5' 3.11) 05/26/2022 9:30 AM CS T Body Mass Index 22.07 05/26/2022 9:30 AM TANK WELDER Plan of Treatment Health Maintenance Due Date [...] ED patients; some inpatients) 05/16/2023 4:34 PM TANK WELDER Injury Head Initial CT HEAD WITHOUT IV CONTRAST RAD - Semiurgent (Fast; most ED patients; some inpatients) 05/16/2023 4:29 PM TANK WELDER Injury Head Initial URINALYSIS WITH MICROSCOPIC Routine 05/16/2023 4:06 PM TANK WELDER Injury Head Initial BACTERIAL CULTURE, AEROBIC + SUSC, URINE Routine 05/16/2023 4:06 PM TANK WELDER Injury Head Initial CBC WITH DIFFERENTIAL, B Routine 05/16/2023 4:05 PM TANK WELDER Injury Head Initial MAGNESIUM, S Routine 05/16/2023 4:05 PM TANK WELDER Injury Head Initial PHOSPHORUS (INORGANIC), S Routine 05/16/2023 4:05 PM TANK WELDER Injury Head Initial ECG Routine 05/16/2023 3:50 PM TANK WELDER Injury Head Initial BASIC METABOLIC PANEL, S/P Routine 05/16/2023 3:35 PM TANK WELDER Injury Head Initial FERRITIN, S Routine 05/16/2023 1:35 PM TANK WELDER Injury Head Initial from Last 3 Months Results * DX Knee Left 4+ Views (05/16/2023 4:34 PM TANK WELDER) Anatomical Region Laterality Modality Lower Extremity, Knee, Muscu loskeletal RST LOS, Musculoskeletal ARZ LOS, Muskuloskeletal FLA LOS Left Digit al Radiography Impressions 05/16/2023 4:38 PM TANK WELDER Approximately 14.2 x 3.3 cm region of consolidation along the medial left knee, suggestive of hemorrhage, possibly due to medial collateral ligament damage. Narrative 05/16/2023 4:38 PM TANK WELDER EXAM: DX KNEE LEFT 4+ VIEWS COMPARISON: [...] Head without IV Contrast (05/16/2023 4:29 PM TANK WELDER) Anatomical Region Laterality Modality Head, Neuroradiology RST LOS , Neuroradiology ARZ LOS, Neuroradiology FLA LOS N/A Computed Tomography 05/16/2023 4:26 PM TANK WELDER Impressions 05/16/2023 4:55 PM TANK WELDER Cerebral atrophy and small vessel ischemic disease. Otherwise normal CT of the head without contrast. Narrative 05/16/2023 4:55 PM TANK WELDER EXAM: CT HEAD WITHOUT IV CONTRAST COMPARISON: [...] Aerobic + Susceptibility, Urine (05/16/2023 4:06 PM TANK WELDER) Pathologist [facility] Urine Culture No growth after 1 day of incubation. 05/18/2023 8:29 AM TANK WELDER [facility] Urine (Urine, Midstream) 05/16/2023 4:06 PM TANK WELDER 05/17/2023 1:48 PM TANK WELDER Comment:Specimen Source Site : Urine Zoe Hope M.D., M.S. LAB MICROBIOLOGY - GENERAL ORDERABLES [facility] [address] [place] [address], [facility] in [place] [address] [place] [id number] * Urinalysis with Microscopic: Urine, Midstream (05/16/2023 4:06 PM TANK WELDER) Source Urine, Urine, Midstream 05/16/2023 4:45 PM TANK WELDER OWAT Clarity Clear Clear 05/16/2023 4:47 PM TANK WELDER OWAT Color Yellow 05/16/2023 4:45 PM TANK WELDER OWAT Comment: ----REFERENCE VALUE---- Colorless Yellow Ny Blood Negative Negative 05/16/2023 4:45 PM TANK WELDER OWAT Nitrite Negative Negative 05/16/2023 4:45 PM TANK WELDER OWAT Leukocyte Esterase Negative Negative 05/16/2023 4:45 PM TANK WELDER OWAT Protein Negative mg/dL 05/16/2023 4:45 PM TANK WELDER OWAT Comment: ----REFERENCE VALUE---- Negative Trace Glucose Negative Negative mg/dL 05/16/2023 4:45 PM TANK WELDER OWAT Ketone Negative Negative mg/dL 05/16/2023 4:45 PM TANK WELDER OWAT Bilirubin Negative Negative 05/16/2023 4:45 PM TANK WELDER OWAT pH 5.5 5.0 - 8.0 05/16/2023 4:45 PM TANK WELDER OWAT Specific [place] 1.005 1.001 - 1.035 05/16/2023 4:45 PM TANK WELDER OWAT Urobilinogen 0.2 0.2 - 1.0 mg/dL 05/16/2023 4:45 PM TANK WELDER OWAT White Blood Cells None Seen /hpf 05/16/2023 4:47 PM TANK WELDER OWAT Comment: ----REFERENCE VALUE---- Males: 0-3 Females: 0-10 Unknown: 0-10 Red Blood Cells None Seen 0 - 2 /hpf 4:47 PM TANK WELDER OWAT Hyaline Casts 1-3 /lpf 05/16/2023 4:47 PM TANK WELDER OWAT Urine (Urine, Midstream) 05/16/2023 4:06 PM TANK WELDER 05/16/2023 4:41 PM TANK WELDER Zoe Hope M.D., M.S. LAB URINE ORDERABLE S [facility] [address] [place] [address], [place] OWAT [facility] [place] [address] [place] [address] * (ABNORMAL) CBC with Differential, Blood (05/16/2023 4:05 PM TANK WELDER) Hemoglobin 13.3 11.6 - 15.0 g/dL 05/16/2023 4:09 PM TANK WELDER OWAT Hematocrit 39.5 35.5 - 44.9 % 05/16/2023 4:09 PM TANK WELDER OWAT Erythrocytes 4.28 3.92 - 5.13 x10(12)/L 05/16/2023 4:09 PM TANK WELDER OWAT MCV 92.3 78.2 - 97.9 fL 05/16/2023 4:09 PM TANK WELDER OWAT RBC Distrib Width 12.2 12.2 - 16.1 % 05/16/2023 4:09 PM TANK WELDER OWAT Platelet Count 433(H) 157 - 371 x10(9)/L 05/16/2023 4:09 PM TANK WELDER OWAT Leukocytes 10.2(H) 3.4 - 9.6 x10(9)/L 05/16/2023 4:09 PM TANK WELDER OWAT Neutrophils 6.87(H) 1.56 - 6.45 x10(9)/L 05/16/2023 4:09 PM TANK WELDER OWAT Lymphocytes 2.46 0.95 - 3.07 x10(9)/L 05/16/2023 4:09 PM TANK WELDER OWAT Monocytes 0.70 0.26 - 0.81 x10(9)/L 05/16/2023 4:09 PM TANK WELDER OWAT Eosinophils 0.07 0.03 - 0.48 x10(9)/L 05/16/2023 4:09 PM TANK WELDER OWAT Basophils 0.05 0.01 - 0.08 x10(9)/L 05/16/2023 4:09 PM TANK WELDER OWAT Blood (Blood, Venous) 05/16/2023 4:05 PM TANK WELDER 05/16/2023 4:05 PM TANK WELDER Zoe Hope M.D., M.S. LAB BLOOD ADD-ON [facility] [address] [place] [address], [place] OWAT [facility] [place] [address] [place] [address] * Phosphorus Inorganic (05/16/2023 4:05 PM TANK WELDER) Phosphorus (Inorganic), P 3.7 2.5 - 4.5 mg/dL 05/17/2023 3:17 PM TANK WELDER AUST Blood (Blood, Venous) 05/16/2023 4:05 PM TANK WELDER 05/17/2023 3:02 PM TANK WELDER Zoe Hope M.D., M.S. LAB BLOOD ADD-ON Performing Organization Address City/[facility]/ZIP Co de Phone Number [facility] [address] [place] [address], [place] AUST Nick Lab - [facility] [address] [place] [address] * Magnesium (05/16/2023 4:05 PM TANK WELDER) Magnesium, P 2.3 1.7 - 2.3 mg/dL 05/16/2023 4:17 PM TANK WELDER OWAT Blood (Blood, Venous) 05/16/2023 4:05 PM TANK WELDER 05/16/2023 4:05 PM TANK WELDER Zoe Hope M.D., M.S. LAB BLOOD ADD-ON Performing Organization Address City/[facility] Co de Phone Number [facility] [address] [place] [address], [place] OWAT [facility] [place] [address] [place] [address] * ECG 12 Lead (05/16/2023 3:50 PM TANK WELDER) Ventricular Rate ECG/Min 92 BPM MUSE NE Interval 148 ms MUSE QRSD Interval 80 ms MUSE QT Interval 356 ms MUSE QTC Interval 440 ms MUSE P [place] 70 degrees MUSE R [place] 55 degrees MUSE T Wave [place] 36 degrees MUSE 05/16/2023 3:50 PM TANK WELDER 05/16/2023 4:23 PM TANK WELDER Impressions MUSE - 05/16/2023 4:23 PM TANK WELDER Normal sinus rhythm Normal ECG When compared [...] (ABNORMAL) Basic Metabolic Panel (05/16/2023 3:35 PM TANK WELDER) Potassium, P 4.3 3.6 - 5.2 mmol/L 05/16/2023 4:40 PM TANK WELDER OWAT Sodium, P 134(L) 135 - 145 mmol/L 05/16/2023 4:40 PM TANK WELDER OWAT Chloride, P 97(L) 98 - 107 mmol/L 05/16/2023 4:40 PM TANK WELDER OWAT Bicarbonate, P 24 22 - 29 mmol/L 05/16/2023 4:40 PM TANK WELDER OWAT Anion Gap, P 13 7 - 15 05/16/2023 4:40 PM TANK WELDER OWAT BUN (Blood Urea Nitrogen), P 16 6 - 21 mg/dL 05/16/2023 4:40 PM TANK WELDER OWAT Creatinine 0.81 0.59 - 1.04 mg/dL 05/16/2023 4:40 PM TANK WELDER OWAT Estimated GFR (eGFR) 75 >=60 mL/min/BSA 05/16/2023 4:40 PM TANK WELDER OWAT Comment: Estimated GFR calculated using the 2020 CKD_EPI creatinine equation. Calcium, Total, P 9.8 8.8 - 10.2 mg/dL 05/16/2023 4:40 PM TANK WELDER OWAT Glucose, P 102 70 - 140 mg/dL 05/16/2023 4:40 PM TANK WELDER OWAT Blood (Blood, Venous) 05/16/2023 3:35 PM TANK WELDER 05/16/2023 4:22 PM TANK WELDER Zoe Hope M.D., M.S. LAB BLOOD ADD-ON [facility] [address] [place] [address], [place] OW[place] [facility] [address] [place] [address] * Ferritin (05/16/2023 1:35 PM TANK WELDER) Ferritin, S 192 11 - 328 mcg/L 05/17/2023 9:14 AM TANK WELDER OWAT Comment: Biotin has been identified by the furniture inspector as a potential interfering substance. Higher concentrations of biotin may be found in multivitamins, hair/nail supplements, and workout supplements. If the result does not match clinical observations, repeat testing after patient refrains from the use of supplements for at least 12 hours. Blood (Blood, Venous) 05/16/2023 1:35 PM TANK WELDER 05/16/2023 4:07 PM TANK WELDER Zoe Hope M.D., M.S. LAB BLOOD ADD-ON [facility] [address] [place] [address], [place] OWAT [facility] [address] [place] [address] from Last 3 Months Care Teams Casserole Preparer Relationship Specialty Start Date End Date Tigre Preciado P.A.-C., P.A. PCP - General Family Medicine 10/11/19
--- OUTSIDE RECORDS SUMMARY | 2023-06-02 10:10 | XMS_ITS | Encounter Summary ---
Author Name Unknown Organization [facility] Address [address] [place] [address] Care Team Providers Care Diamond Saw Operator Name Role Phone Tigre Preciado P.A.-C., P.A. Primary Care Pr ovider Reason for Referral * Outpatient (Routine) - Authorized Specialty Diagnoses / Procedures Referred By Contac t Referred To Contact Diagnoses Costochondritis Procedures ECG 12 Lead Edel Monae M.D. [address] [place] [phone] [facility] Region Referral ID Status Reason Start Date Expiration Date V isits Requested Visits Authorized [id number] Authorized 08/15/2022 08/15/2023 1 1 Reason for Visit * Reason Comments Cough 5 days, currently on Zpack Shortness of Breath 3 days Chest Pain Earlier today not no w Encounter Details Date Type Department Care Team (Late st Contact Info) Description 08/15/2022 12:30 PM CDT Office Visit Department of Family Medicine, [facility], in [place], [place] [address] [place] [address] Edel Monae M.D. [address] [place] [address] Wheezing (Primary Dx); Fatigue; Asthma [...] Date Recorded PHQ-2 Score 0 06/26/2021 [facility] of Occupat ional Health - Occupational [...] Body Mass Index 21.87 05/26/2022 9:30 AM RESEARCH LAB ASSISTANT documented in this encounter Progress Notes * [...] was seen at an emergency department in [place] and was found to have a pneumonia. [...] CDT) Ventricular Rate ECG/Min 69 BPM MUSE [place] Interval 150 ms MUSE QRSD Interval 86 ms MUSE QT Interval 400 ms MUSE QTC Interval 428 ms MUSE P [place] 52 degrees MUSE R [place] 20 degrees MUSE T Wave [place] 32 degrees MUSE 08/15/2022 12:4 9 PM [...] Total Score: 1 06/02/19 18 9:34 AM RESEARCH LAB ASSISTANT documented as of this encounter Care Teams Diamond Saw Operator Relationship Specialty Start Date End Date Tigre Preciado P.A.-C., P.A. PCP - General Family Medicine 10/11/19 documented as of this encounter
--- OUTSIDE RECORDS SUMMARY | 2023-06-02 10:10 | XMS_ITS | Encounter Summary ---
Author Name Unknown Organization [facility] Address [address] [place] [address] Care Team Providers Care High Scaler Name Role Phone Tigre Preciado P.A.-C., P.A. Primary Care Pr ovider Encounter Details Date Type Department Care Team (Late st Contact Info) Description 02/15/2023 Clinical Communication Department of Obstetrics and Gynecology in [place], [place] [address] [place] [phone] Em Almazan, R.N. 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 P.AElda PCP - General Family Medicine 10/11/19 documented as of this encounter
--- OUTSIDE RECORDS SUMMARY | 2023-06-02 10:10 | XMS_ITS | Encounter Summary ---
Author Name Unknown Organization [facility] Address [address] [place] [address] Care Team Providers Care Choir Teacher Name Role Phone Tigre Preciado P.A.-C., P.A. Primary Care Pr ovider Encounter Details Date Type Department Care Team (Late st Contact Info) Description 09/02/2022 Orders Only [facility]NT Tigre Preciado P.A.-C., P.A. [address] [facility] [phone] Social History Tobacco Use Types Packs/Day Years [...] Answer Date Recorded PHQ-2 Score 0 06/26/2021 [facility] [place] of Occupat ional Health - Occupational Stress [...] Total Score: 1 06/02/19 18 9:34 AM HOOP RIVETER documented as of this encounter Care Teams Choir Teacher Relationship Specialty Start Date End Date Tigre Preciado P.A.-C., P.A. PCP - General Family Medicine 10/11/19 documented as of this encounter
--- OUTSIDE RECORDS SUMMARY | 2023-06-02 10:10 | XMS_ITS | Encounter Summary ---
Author Name Unknown Organization [facility] Address [address] [place] [address] Care Team Providers Care Electronics Mechanic Name Role Phone Tigre Preciado P.A.-C., P.A. Primary Care Pr ovider Encounter Details Date Type Department Care Team (Late st Contact Info) Description 02/04/2023 Orders Only Department of Obstetrics and Gynecology, Division of Urogynecology in [place], [place] [address] [place] [phone] Shanice Rico APRN, C.N.P., D.N.P. [address] [place] [phone] Social History Tobacco Use Types Packs/Day Years [...] Answer Date Recorded PHQ-2 Score 0 06/26/2021 [facility] [place] of Occupat ional Health - Occupational Stress [...] Total Score: 1 06/02/19 18 9:34 AM ELECTRICAL MECHANIC documented as of this encounter Care Teams Electronics Mechanic Relationship Specialty Start Date End Date Tigre Preciado P.A.-C., P.A. PCP - General Family Medicine 10/11/19 documented as of this encounter
--- OUTSIDE RECORDS SUMMARY | 2023-06-02 10:10 | XMS_ITS | Encounter Summary ---
Author Name Unknown Organization [facility] Address [address] [place] [address] Care Team Providers Care Radio Despatcher Name Role Phone Tigre Preciado P.A.-C., P.A. Primary Care Pr ovider Reason for Visit * Reason Comments Med Refill Encounter Details Date Type Department Care Team (Late st Contact Info) Description 10/05/2022 Refill Department of Family Medicine, [facility], in [place], [place] [address] [place] [address] Tigre Preciado P.A.-C., P.A. [address] [place] [phone] Med Refill Social History Tobacco [...] PHQ-2 Score 0 06/26/2021 [facility] [place] of Occupat ional Health - Occupational Stress [...] BY MOUTH AT BEDTIME. Pharmacy (include location): [facility] [place], [place] - [address] [place] [address] documented in this encounter Plan of Treatment Not on file documented as of this encounter Visit Diagnoses Not on filedocumented in this encounter Additional Health Concerns Assessment Noted Time PHQ-9 Depression Total Score: 1 06/02/19 18 9:34 AM CROP RESEARCH SCIENTIST documented as of this encounter Care Teams Radio Despatcher Relationship Specialty Start Date End Date Tigre Preciado P.A.-C., P.A. PCP - General Family Medicine 10/11/19 documented as of this encounter
--- OUTSIDE RECORDS SUMMARY | 2023-06-02 10:10 | XMS_ITS | Encounter Summary ---
Author Name Unknown Organization [facility] Address [address] [place] [address] Care Team Providers Care Print Binding Worker Name Role Phone Tigre Preciado P.A.-C., P.A. Primary Care Pr ovider Reason for Visit * Reason Comments Consult * Outpatient (Routine) - Closed Specialty Diagnoses / Procedures Referred By Contcarlie t Referred To Contact Breast Clinic Diagnoses Discharge Nipple Kanchan Granda, C.N.P. [address] [place] [phone] [facility] Referral ID Status Reason Start Date Expiration Date Visits Re quested Visits Authorized [id number] Closed 07/03/2022 07/03/2023 1 1 Encounter Details Date Type Department Care Team ([facility] st Contact Info) Description 08/13/2022 10:30 AM CDT Comprehensive Visit Breast Diagnostic Clinic in [place], [place] [address] [place] [phone] Shelby Austin M.D., [facility] [address] [place] [phone] Pruritus (Primary Dx); Discharge Nipple Social History [...] Answer Date Recorded PHQ-2 Score 0 06/26/2021 [facility] of Occupat ional Health - Occupational [...] colon cancer who ultimately lived to be [facility]. OBJECTIVE PHYSICAL EXAM BP 147/84 (BP Location: [...] 1 06/02/19 18 9:34 AM HIGH SCHOOL LEARNING SUPPORT TEACHER documented as of this encounter Care Teams Print Binding Worker Relationship Specialty Start Date End Date Tigre Preciado P.A.-C., P.A. PCP - General Family Medicine 10/11/19 documented as of this encounter
--- OUTSIDE RECORDS SUMMARY | 2023-06-02 10:10 | XMS_ITS | Encounter Summary ---
Author Name Unknown Organization [facility] Address [address] [place] [address] Care Team Providers Care Merchant Mill Utility Worker Name Role Phone Tigre Preciado P.A.-C., P.A. Primary Care Pr ovider Reason for Visit * Reason Onset Date Comments Cough 08/15/2022 Encounter Details Date Type Department Care Team (Late st Contact Info) Description 08/15/2022 Nurse Triage Department of Family Medicine, [facility], in [place], [place] [address] [place] [phone] Beryl Arriola, REldaNElda [address] [place] [phone] Cough Social History Tobacco Use Types Packs/Day [...] Answer Date Recorded PHQ-2 Score 0 06/26/2021 [facility] [place] of Occupat ional Health [...] cares tried: Seen by primary care at [place] (with josi prescribed) by [facility] [place] Provider on Wednesday. Calling to request: An [...] or 4 hours. Call your doctor (or BILINGUAL CUSTOMER SERVICE/PA) now or as soon as the office [...] need to be seen. Your doctor (or BILINGUAL CUSTOMER SERVICE/PA) will want to talk with you to [...] Caller was warm transferred to Patient Appointment Recruiting Associate at the clinic for further assistance. Reason for Disposition [1] MILD difficulty breathing (e.g., minimal/no SOB at rest, SOB with walking, pulse <100) AND [2] still present when not coughing Protocols used: Cough - Acute Owotqqyxrs-EYREN-PP documented in this encounter Plan of Treatment Not on file documented as of this encounter Visit Diagnoses Not on filedocumented in this encounter Additional Health Concerns Assessment Noted Time PHQ-9 Depression Total Score: 1 06/02/19 18 9:34 AM INSPECTOR WREATH documented as of this encounter Care Teams Merchant Mill Utility Worker Relationship Specialty Start Date End Date Tigre Preciado P.A.-C., P.A. PCP - General Family Medicine 10/11/19 documented as of this encounter
--- OUTSIDE RECORDS SUMMARY | 2023-06-02 10:10 | XMS_ITS | Encounter Summary ---
Author Name Unknown Organization [facility] Address [address] [place] [address] Care Team Providers Care Beam Sealer Name Role Phone Tigre Preciado P.A.-C., P.A. Primary Care Pr ovider Encounter Details Date Type Department Care Team (Late st Contact Info) Description 11/24/2022 [facility] AND [facility] [address] [place] [address] Kanchan Granda, C.N.P. [address] [place] [phone] Urinary Tract Infection Site Not Specified (Primary [...] Answer Date Recorded PHQ-2 Score 0 06/26/2021 [facility] of Occupat ional Health - Occupational Stress [...] Total Score: 1 06/02/19 18 9:34 AM CATCHER FILTER TIP documented as of this encounter Care Teams Beam Sealer Relationship Specialty Start Date End Date Tigre Preciado P.A.-C., P.A. PCP - General Family Medicine 10/11/19 documented as of this encounter
--- OUTSIDE RECORDS SUMMARY | 2023-06-02 10:10 | XMS_ITS | Encounter Summary ---
Author Name Unknown Organization [facility] Address [address] [place] [address] Care Team Providers Care Head Of Data Name Role Phone Tigre Preciado P.A.-C., P.A. Primary Care Pr ovider Reason for Referral * Outpatient (Routine) - Authorized Specialty Diagnoses / Procedures Referred By Contac t Referred To Contact Obstetrics and Gynecology Diagnoses Cystocele Shanice Rico APRN, C.N.P., D.N.P. [address] [place] [phone] [facility] Referral ID Status Reason Start Date Expiration Date V isits Requested Visits Authorized [id number] Authorized 01/26/2023 01/26/2024 1 1 Scheduling Instructions Wants to coordinate with other appointments Reason for Visit * Outpatient (Routine) - Closed Specialty Diagnoses / Procedures Referred By Contac t Referred To Contact Gynecology Diagnoses Cystocele Urinary Tract Infection Site Not Specified Personal History Of Other Diseases Of Urinary System Postmenopausal Atrophic Vaginitis Kanchan Granda, C.N.P. [address] [place] [phone] [facility] Referral ID Status Reason Start Date Expiration Date Visits Re quested Visits Authorized [id number] Closed 11/27/2022 11/27/2023 1 1 Encounter Details Date Type Department Care Team (Latest Contact Info) Description 01/26/2023 9:00 AM CDT Comprehensive Visit Department of Obstetrics and Gynecology, Division of Urogynecology in [place], [place] [address] [place] [phone] Shanice Rico APRN, C.N.P., D.N.P. [address] [place] [phone] Cystocele; Urinary Tract Infection Site Not Specified; [...] Answer Date Recorded PHQ-2 Score 0 06/26/2021 [facility] of Occupat ional Health [...] cc, Ultrasound post void residual: 43 cc Tassel Clipper: Nanda Loaiza's ASSESSMENT / PLAN #1 Anterior [...] mg to 1000 mg total daily dose (qkya-qgy-zxutvks) or Vitamin C 1,000 mg daily or D-mannose, probiotics (zyev-khx-pymkutf) For those with Genitourinary syndrome of Menopause: [...] symptoms. Prescription for vaginal estrogen sent to [facility] pharmacy in [place], [place]. If symptoms are not improved with [...] Total Score: 1 06/02/19 18 9:34 AM GORE SEAMER documented as of this encounter Care Teams Head Of Data Relationship Specialty Start Date End Date Tigre Preciado P.A.-C., P.A. PCP - General Family Medicine 10/11/19 documented as of this encounter
--- OUTSIDE RECORDS SUMMARY | 2023-06-02 10:10 | XMS_ITS | Encounter Summary ---
Author Name Unknown Organization [facility] Address [address] [place] [address] Care Team Providers Care Blood And Plasma Laboratory Assistant Name Role Phone Tigre Preciado P.A.-C., P.A. Primary Care Pr ovider Reason for Referral * Outpatient (Routine) - Closed Specialty Diagnoses / Procedures Referred By Contac t Referred To Contact Gynecology Diagnoses Cystocele Urinary Tract Infection Site Not Specified Personal History Of Other Diseases Of Urinary System Postmenopausal Atrophic Vaginitis Kanchan Granda, C.N.P. [address] [place] [phone] [facility] Referral ID Status Reason Start Date Expiration Date Visits Re quested Visits Authorized [id number] Closed 11/27/2022 11/27/2023 1 1 Encounter Details Date Type Department Care Team (Late st Contact Info) Description 11/26/2022 [facility] [address] [place] [address] Kanchan Granda, C.N.P. [address] [place] [phone] Urinary Tract Infection Site Not [...] Answer Date Recorded PHQ-2 Score 0 06/26/2021 [facility] - Occupational Stress Questionnaire Answer Date [...] Score: 1 06/02/19 18 9:34 AM MANAGER RISK MANAGEMENT documented as of this encounter Care Teams Blood And Plasma Laboratory Assistant Relationship Specialty Start Date End Date Tigre Preciado P.A.-C., P.A. PCP - General Family Medicine 10/11/19 documented as of this encounter
--- OUTSIDE RECORDS SUMMARY | 2023-06-02 10:10 | XMS_ITS | Encounter Summary ---
Author Name Unknown Organization [facility] Address [address] [place] [address] Care Team Providers Care Propulsion Machinery Service Engineer Name Role Phone Tigre Preciado P.A.-C., P.A. Primary Care Pr ovider Reason for Visit * Reason Onset Date Comments Pre-visit Intake 08/10/2022 Encounter Details Date Type Department Care Team (Latest Contact Info) Description 08/10/2022 2:30 PM CDT Clinical Communication Virtual Review in [place], [place] [address] [place], [place] [phone] Pre-visit Intake Social History Tobacco Use Types [...] Recorded PHQ-2 Score 0 06/26/2021 [facility] [place] of Occupat ional Health - Occupational Stress [...] Total Score: 1 06/02/19 18 9:34 AM FIBER LOCKING SUPERVISOR documented as of this encounter Care Teams Propulsion Machinery Service Engineer Relationship Specialty Start Date End Date Tigre Preciado P.A.-C., P.A. PCP - General Family Medicine 10/11/19 documented as of this encounter
--- OUTSIDE RECORDS SUMMARY | 2023-06-02 10:10 | XMS_ITS | Encounter Summary ---
Author Name Unknown Organization [facility] Address [address] [place] [address] Care Team Providers Care Director Of Catering Sales Name Role Phone Tigre Preciado P.A.-C., P.A. Primary Care Pr ovider Encounter Details Date Type Department Care Team (Late st Contact Info) Description 11/25/2022 Clinical Communication Department of Family Medicine, [facility], in [place], [place] [address] [place] [phone] Tigre Preciado P.A.-C., P.A. [address] [place] [phone] Social History Tobacco Use Types [...] PHQ-2 Score 0 06/26/2021 [facility] [place] of Occupat ional Health - Occupational Stress [...] Score: 1 06/02/19 18 9:34 AM MANAGER TRANSMISSION documented as of this encounter Care Teams Director Of Catering Sales Relationship Specialty Start Date End Date Tigre Preciado P.A.-C., P.A. PCP - General Family Medicine 10/11/19 documented as of this encounter
--- OUTSIDE RECORDS SUMMARY | 2023-06-02 10:10 | XMS_ITS | Encounter Summary ---
Author Name Unknown Organization [facility] Address [address] [place] [address] Care Team Providers Care Brand Ambassador Promotional Model Name Role Phone Tigre Preciado P.A.-C., P.A. Primary Care Pr ovider Encounter Details Date Type Department Care Team (Late st Contact Info) Description 02/05/2023 Orders Only Department of Obstetrics and Gynecology, Division of Urogynecology in [place], [place] [address] [place] [phone] Shanice Rico APRN, C.N.P., D.N.P. [address] [place] [phone] Social History Tobacco Use Types Packs/Day Years [...] Answer Date Recorded PHQ-2 Score 0 06/26/2021 [facility] [place] of Occupat ional Health - Occupational Stress [...] Total Score: 1 06/02/19 18 9:34 AM MEAL ATTENDANT documented as of this encounter Care Teams Brand Ambassador Promotional Model Relationship Specialty Start Date End Date Tigre Preciado P.A.-C., P.A. PCP - General Family Medicine 10/11/19 documented as of this encounter
--- OUTSIDE RECORDS SUMMARY | 2023-06-02 10:10 | XMS_ITS | Encounter Summary ---
Author Name Unknown Organization [facility] Address [address] [place] [address] Care Team Providers Care Software Engineer Sales Name Role Phone Tigre Preciado P.A.-C., P.A. Primary Care Pr ovider Reason for Visit * Reason Onset Date Comments Head Injury 05/16/2023 Knee Injury 05/16/2023 Encounter Details Date Type Department Care Team (Late st Contact Info) Description 05/16/2023 Nurse Triage Department of Family Medicine, [facility], in [place], [place] [address] [place] [address] Valerie Wadsworth, R.N. Head Injury; [...] Answer Date Recorded PHQ-2 Score 0 06/26/2021 [facility] [place] of Occupat ional Health - Occupational Stress [...] Valerie Wadsworth, REldaN. - 05/16/2023 2:23 PM POSTAL CLERK Chief Complaint / Reason for Call Patient is a 78 y.o. female and calling regarding Head Injury and Knee Injury Assessment Concern: [place] dizzy when she got up to go [...] [2] swelling or bruise Protocols used: Head Tkomxn-PSPZQ-IJ Care Advice Patient/Caregiver understands and will follow care advice?: Yes, able to teach back SEE HCP (OR PCP TRIAGE) WITHIN 4 HOURS: * IF OFFICE WILL BE OPEN: You need to be seen within the next 3 or 4 hours. Call your doctor (or DIGITAL MARKETING STRATEGIST/PA) now or as soon as the office opens. CALL BACK IF: * You become worse CARE ADVICE given per Head Injury (Adult) guideline. AL CLERK documented in this encounter Plan of Treatment Not on file documented as of this encounter Visit Diagnoses Not on filedocumented in this encounter Additional Health Concerns Assessment Noted Time PHQ-9 Depression Total Score: 1 06/02/19 18 9:34 AM POSTAL CLERK documented as of this encounter Care Teams Software Engineer Sales Relationship Specialty Start Date End Date Tigre Preciado P.A.-C., P.A. PCP - General Family Medicine 10/11/19 documented as of this encounter
--- OUTSIDE RECORDS SUMMARY | 2023-06-02 10:10 | XMS_ITS | Encounter Summary ---
Author Name Unknown Organization [facility] Address [address] [place] [address] Care Team Providers Care Lead Developer Name Role Phone Tigre Preciado P.A.-C., P.A. Primary Care Pr ovider Reason for Visit * Reason Onset Date Comments Communication 02/03/2023 Encounter Details Date Type Department Care Team (Latest Contact Info) Description 02/03/2023 Clinical Communication Department of Obstetrics and Gynecology, Division of Urogynecology in [place], [place] [address] [place] [phone] Shanice Rico, ORION, C.N.P., D.N.P. [address] [place] [phone] Communication Social History Tobacco Use Types Packs/Day [...] Recorded PHQ-2 Score 0 06/26/2021 [facility] [place] of Occupat ional Health - Occupational Stress [...] prescription to Premarin cream andsent it to [facility] in [place], [place]. * Telephone Encounter - Em Almazan [...] Total Score: 1 06/02/19 18 9:34 AM PHOTOVOLTAIC TECHNICIAN documented as of this encounter Care Teams Lead Developer Relationship Specialty Start Date End Date Tigre Preciado P.A.-C., P.A. PCP - General Family Medicine 10/11/19 documented as of this encounter
--- OUTSIDE RECORDS SUMMARY | 2023-06-02 10:11 | XMS_ITS | Encounter Summary ---
Author Name Unknown Organization [facility] Address [address] [place] [address] Care Team Providers Care Quarry Plug And Feather Driller Name Role Phone Tigre Preciado P.A.-C., P.A. Primary Care Pr ovider Reason for Visit * Reason Comments Med Refill Encounter Details Date Type Department Care Team (Late st Contact Info) Description 07/30/2022 Refill Department of Family Medicine, [facility], in [place], [place] [address] [place] [phone] Tigre Preciado P.A.-C., P.A. [address] [place] [phone] Med Refill Social History Tobacco [...] Date Recorded PHQ-2 Score 0 06/26/2021 [facility] [place] of Occupat ional Health - Occupational Stress [...] Total Score: 1 06/02/19 18 9:34 AM SLIVER LAP TENDER documented as of this encounter Care Teams Quarry Plug And Feather Driller Relationship Specialty Start Date End Date Tigre Preciado P.A.-C., P.A. PCP - General Family Medicine 10/11/19 documented as of this encounter
--- OUTSIDE RECORDS SUMMARY | 2023-06-02 10:11 | XMS_ITS | Encounter Summary ---
Author Name Unknown Organization [facility] Address [address] [place] [address] Care Team Providers Care Wire Setter Name Role Phone Tigre Preciado P.A.-C., P.A. Primary Care Pr ovider Reason for Visit * Reason Onset Date Comments Pre-visit Intake 07/23/2022 Encounter Details Date Type Department Care Team (Latest Contact Info) Description 07/23/2022 9:00 AM CDT Clinical Communication Virtual Review in [place], [place] 200 [place], [place] [phone] Pre-visit Intake Social History Tobacco Use Types [...] Recorded PHQ-2 Score 0 06/26/2021 [facility] [place] of Occupat ional Health - Occupational [...] Total Score: 1 06/02/19 18 9:34 AM SAMPLE COORDINATOR documented as of this encounter Care Teams Wire Setter Relationship Specialty Start Date End Date Tigre Preciado P.A.-C., P.A. PCP - General Family Medicine 10/11/19 documented as of this encounter
--- OUTSIDE RECORDS SUMMARY | 2023-06-02 10:11 | XMS_ITS | Encounter Summary ---
Author Name Unknown Organization [facility] Address [address] [place] [address] Care Team Providers Care Silverware Etcher Name Role Phone Tigre Preciado P.A.-C., P.A. Primary Care Pr ovider Reason for Visit * Reason Onset Date Comments Pre-visit Intake 07/09/2022 Encounter Details Date Type Department Care Team (Latest Contact Info) Description 07/09/2022 2:30 PM CDT Clinical Communication Virtual Review in [place], [place] [address] [place], [place] [address] Pre-visit Intake Social History Tobacco Use Types [...] Answer Date Recorded PHQ-2 Score 0 06/26/2021 [facility] [place] of Occupat ional Health - Occupational Stress [...] Total Score: 1 06/02/19 18 9:34 AM FLOAT OPERATOR documented as of this encounter Care Teams Silverware Etcher Relationship Specialty Start Date End Date Tigre Preciado P.A.-C., P.A. PCP - General Family Medicine 10/11/19 documented as of this encounter
--- OUTSIDE RECORDS SUMMARY | 2023-06-02 10:11 | XMS_ITS | Clinical Summary ---
Author Name Unknown Organization [facility] Address [place], [place] [address] Care Team Providers Care Herbarium Curator Name Role Phone Tigre Preciado Primary Care Provider [phone] Allergies Active Allergy Reactions Criticality Noted Date [...] PRN, Reported on 01/16/2020 vit A,C and T-rqpuxn-rqqmwzlr (OCUVITE WITH LUTEIN) 1,000 unit-200 mg-60 unit-2 [...] will continue to work with her current tube sorter. We also discussed management options with vaginal estrogen therapy, pessary, or surgical intervention. She is not interested in these options at this time. I recommend she follow up as needed in the future. Osteoporosis 07/20/2017 Personal history of colonic polyps 11/10/2012 Reactive airway disease 07/12/2009 Headache(784.0) 01/09/2009 Encounters Date Type Department Care Team Description 05/16/2023 Orders Only [facility] Staff, Other Clinical 1 scan: (1-Ord) <No description> 05/16/2023 Orders Only [facility] Staff, Other Clinical 1 scan: (1-Ord) <No description> from Last 3 Months Immunizations Name Administration Dates Next Due COVID-19 vaccine (CarePayment 30mcg/0.3mL) P F, MDV 02/24/2021 Influenza, IIV3 [...] 159 cm (5' 2.6) 02/29/2020 12:48 PM MOBILE PRACTICE LEAD Body Mass Index 22.61 02/29/2020 12:48 PM MOBILE PRACTICE LEAD Plan of Treatment Health Maintenance Due Date [...] Diagnosis Comments SCAN-RADIOLOGY REPORT 05/16/2023 4:34 PM MOBILE PRACTICE LEAD SCAN-RADIOLOGY REPORT 05/16/2023 4:29 PM MOBILE PRACTICE LEAD from Last 3 Months Results * SCAN-RADIOLOGY REPORT (05/16/2023 4:34 PM MOBILE PRACTICE LEAD) Only the most recent of2 resultswithin the time period is included. Anatomical Region Laterality Modality Other Narrative 05/16/2023 4:34 PM MOBILE PRACTICE LEAD Ordered by an unspecified provider. Other Clinical Staff OTHER from Last 3 Months Advance Directives Latest Code Status on File Code Status Date Activated Date Inactivated Comments Full Code 03/13/2020 7:36 AM 03/13/2020 1:19 PM Question Answer Comments Code Status Discussion: Not Discussed Care Teams Herbarium Curator Relationship Specialty Start Date End Date Tigre Preciado PA PCP - General Physician Bed Placement Coordinator 01/15/20
--- OUTSIDE RECORDS SUMMARY | 2023-06-02 10:11 | XMS_ITS | Encounter Summary ---
Author Name Unknown Organization [facility] Address [address] [place] [address] Care Team Providers Care Door Cutter Name Role Phone Tigre Preciado P.A.-C., P.A. Primary Care Pr ovider Reason for Visit * Reason Onset Date Comments Follow-up Orders 07/01/2022 Reclast Encounter Details Date Type Department Care Team (Latest Contact Info) Description 07/01/2022 Clinical Communication Division of Endocrinology in [place], [place] [address] [place] [address] Duncan Mcgraw M.D. [address] [place] [phone] Follow-up Orders (Reclast) Social History Tobacco Use [...] Answer Date Recorded PHQ-2 Score 0 06/26/2021 [facility] [place] of Occupat ional Health - Occupational Stress [...] Total Score: 1 06/02/19 18 9:34 AM MANUFACTURING STOREPERSON documented as of this encounter Care Teams Door Cutter Relationship Specialty Start Date End Date Tigre Preciado P.A.-C., P.A. PCP - General Family Medicine 10/11/19 documented as of this encounter
--- OUTSIDE RECORDS SUMMARY | 2023-06-02 10:11 | XMS_ITS | Encounter Summary ---
Author Name Unknown Organization [facility] Address [address] [place] [address] Care Team Providers Care Washer Cutter Name Role Phone Tigre Preciado P.A.-C., P.A. Primary Care Pr ovider Reason for Visit * Episode Based Medications (Routine) - Closed Specialty Diagnoses / Procedures Referred By Contac t Referred To Contact Diagnoses Osteoporosis Procedures MI ZOLEDRONIC ACID 1MG Duncan Mcgraw M.D. [address] [place] [phone] [address] [place] [address] [place] [phone] Referral ID Status Reason Start Date Expiration Date Visits Re quested Visits Authorized [id number] Closed 07/03/2022 07/03/2023 1 1 Encounter Details Date Type Department Care Team (Late st Contact Info) Description 07/08/2022 10:15 AM CDT Infusion Department of Infusion Therapy in [place], [place] [address] [place] [phone] Duncan Mcgraw M.D. [address] [place] [phone] Osteoporosis (Primary Dx) Discharge Disposition: Home [...] 07/08/2022 10:50 AM CDT 3 mL zoledronic jbag-abyhwsjg-dueru IVPB 5 mg (RECLAST) 5 mg, intravenous, [...] Total Score: 1 06/02/19 18 9:34 AM GRAIN SACKER documented as of this encounter Care Teams Washer Cutter Relationship Specialty Start Date End Date Tigre Preciado P.A.-C., P.A. PCP - General Family Medicine 10/11/19 documented as of this encounter
--- OUTSIDE RECORDS SUMMARY | 2023-06-02 10:11 | XMS_ITS | Encounter Summary ---
Author Name Unknown Organization [facility] Address [address] [place] [address] Care Team Providers Care Recoater Name Role Phone Tigre Preciado P.A.-C., P.A. Primary Care Pr ovider Reason for Referral * Outpatient (Routine) - Closed Specialty Diagnoses / Procedures Referred By Contac t Referred To Contact Breast Clinic Diagnoses Discharge Nipple Kanchan Granda, C.N.P. [address] [place] [phone] [facility] Referral ID Status Reason Start Date Expiration Date Visits Re quested Visits Authorized [id number] Closed 07/03/2022 07/03/2023 1 1 Encounter Details Date Type Department Care Team (Late st Contact Info) Description 07/03/2022 [facility] [address] [place] [address] Kanchan Granda, C.N.P. [address] [place] [phone] Discharge Nipple (Primary Dx) Social [...] Answer Date Recorded PHQ-2 Score 0 06/26/2021 [facility] of Occupat ional Health - Occupational [...] Total Score: 1 06/02/19 18 9:34 AM PANEL COVERER documented as of this encounter Care Teams Recoater Relationship Specialty Start Date End Date Tigre Preciado P.A.-C., P.A. PCP - General Family Medicine 10/11/19 documented as of this encounter
--- OUTSIDE RECORDS SUMMARY | 2023-06-02 10:11 | XMS_ITS | Encounter Summary ---
Author Name Unknown Organization [facility] Address [address] [place] [address] Care Team Providers Care Flattening Machine Operator Name Role Phone Tigre Preciado P.A.-C., P.A. Primary Care Pr ovider Reason for Visit * Reason Onset Date Comments OSM notification 07/06/2022 Encounter Details Date Type Department Care Team (Latest Contact Info) Description 07/06/2022 Clinical Communication Breast Diagnostic Clinic in [place], [place] [address] [place] [phone] Amy Anthony M.D. [address] [place] [phone] OSM notification Social History Tobacco Use Types [...] Answer Date Recorded PHQ-2 Score 0 06/26/2021 [facility] [place] of Occupat ional Health - Occupational Stress [...] OSM Request: Patient has been seen at [facility] in [facility]. All images are in QREADS dating back [...] Outside Records: Patient is seen at a [facility] system so everything should be here already NOTE: If most recent imaging was completed at [facility], then no need for interpretation of older imaging that was done elsewhere. Patient was made aware there will be associated charges from the Radiology or Pathology department to review outside imaging and pathology. When information has been received, please alert the HARLAN GLASS CARRIER (P RST BRS GLASS CARRIER) by forwarding on thismessage for ordering purposes. Thank you! documented in this encounter Plan of Treatment Not on file documented as of this encounter Visit Diagnoses Not on filedocumented in this encounter Additional Health Concerns Assessment Noted Time PHQ-9 Depression Total Score: 1 06/02/19 18 9:34 AM MEAL MILLER documented as of this encounter Care Teams Flattening Machine Operator Relationship Specialty Start Date End Date Tigre Preciado P.A.-C., P.A. PCP - General Family Medicine 10/11/19 documented as of this encounter
--- OUTSIDE RECORDS SUMMARY | 2023-06-02 10:11 | XMS_ITS | Encounter Summary ---
Author Name Unknown Organization [facility] Address [address] [place] [address] Care Team Providers Care Dip Painter Name Role Phone Tigre Preciado P.A.-C., P.A. Primary Care Pr ovider Encounter Details Date Type Department Care Team (Late st Contact Info) Description 07/03/2022 Orders Only Division of Endocrinology in [place], [place] [address] [place] [phone] Duncan Mcgraw M.D. [address] [place] [phone] Osteoporosis (Primary Dx) Social History Tobacco Use [...] Answer Date Recorded PHQ-2 Score 0 06/26/2021 [facility]at ional [facility] - Occupational Stress [...] Score: 1 06/02/19 18 9:34 AM AUTOMATIC NAILING MACHINE OPERATOR documented as of this encounter Care Teams Dip Painter Relationship Specialty Start Date End Date Tigre Preciado P.A.-C., P.A. PCP - General Family Medicine 10/11/19 documented as of this encounter
== END 2023-06-02 09:54 | disposition home or self-care (01) ==
LOC: RAD 09:54
PROVIDERS: PCP Nurse Practitioner Family; Visit Provider Nurse Practitioner Family
DX: R55 Syncope and collapse (principal); I35.1 Nonrheumatic aortic (valve) insufficiency; I34.0 Nonrheumatic mitral (valve) insufficiency
CPT/HCPCS: 93225; 93226; 93306

== ENCOUNTER 2023-07-22 15:00 | Outpatient (CLI) | payer MEDICARE, SELFPAY ==
--- OUTSIDE RECORDS SUMMARY | 2023-07-26 07:11 | XMS_ITS | Clinical Summary ---
Author Name Unknown Organization [facility] Address [address] [place] [address] Care Team Providers Care Boiler Tender Name Role Phone Tigre Preciado P.A.-C., P.A. Primary Care Pr ovider Source Comments Patient records contain information from all sites at [facility]. For routine questions regarding patient records, call [phone] during business hours, M-F 8:00 AM - 5:00 PM Central Time. Record requests for emergency care only can be directed to [phone] at any time.[facility] Allergies Active Allergy Reactions Criticality Noted Date [...] mg by mouth daily. 0 Active vitamin A,C,B-jrlqzf-lnwvs als (OCUVITE W/LUTEIN) 1,000 Unit-200 mg-60 Unit-2 [...] wheezing. 8 g 3 07/02/2021 Active zoledronic bwtw-lrzaulhJ-zfvg r (RECLAST) 5 mg/100 mL piggyback Infuse [...] will continue to work with her current web operations specialist. We also discussed management options with [...] Encounters Date Type Department Care Team Description 07/22/2023 Orders Only Division of Endocrinology in [place], [place] [address] [place] [address] Duncan Mcgraw M.D. 07/22/2023 Clinical Communication Division of Endocrinology in [place], [place] [address] [place] [phone] Duncan Mcgraw M.D. Reclast 07/02/2023 Orders Only Division of Endocrinology in [place], [place] [address] [place] [address] Duncan Mcgraw M.D. Osteoporosis (Primary Dx) 05/25/2023 Orders Only [facility] Tigre Preciado P.A.-C., P.A. 05/16/2023 3:57 PM SUBSTATION OPERATOR CONVERSION - 05/16/2023 11:59 PM SUBSTATION OPERATOR CONVERSION Hospital Encounter Department of Radiology in [address] [phone] Zoe Hope M.D., M.S. Injury Head Initial Discharge Disposition: Home or Self Care 05/16/2023 3:56 PM SUBSTATION OPERATOR CONVERSION Hospital Encounter Department of Radiology in [address] [phone] Zoe Hope M.D., M.S. Injury Head Initial Discharge Disposition: Home or Self Care 05/16/2023 3:00 PM SUBSTATION OPERATOR CONVERSION Office Visit Department of Family Medicine, [facility], in [address] [phone] Zoe Hope M.D., M.S. Injury Head Initial (Primary Dx); History Of Falling 05/16/2023 Clinical Communication Department of Orthopedic Surgery in [place], [place] [address] [place] [address] Sebastián Esteban M.D. 05/16/2023 Nurse Triage Department of Family Medicine, [facility], in [address] [phone] Valerie Wadsworth R.N. Head Injury; Knee Injury [...] Answer Date Recorded PHQ-2 Score 0 06/26/2021 [facility] [place] of Occupat ional Health - Occupational Stress [...] Comments Blood Pressure 150/89 05/16/2023 2:41 PM SUBSTATION OPERATOR CONVERSION Pulse 111 05/16/2023 2:41 PM SUBSTATION OPERATOR CONVERSION Temperature 37.5 ??C (99.5 ??F) 05/16/2023 2:41 PM CS T Respiratory Rate 16 08/15/2022 12:16 PM CDT Oxygen Saturation 99% 08/15/2022 12:16 PM CDT Inhaled Oxygen Concentration - - Weight 56.7 kg (125 lb) 05/16/2023 2:41 PM SUBSTATION OPERATOR CONVERSION Height 160.3 cm (5' 3.11) 05/26/2022 9:30 AM CS T Body Mass Index 22.07 05/26/2022 9:30 AM SUBSTATION OPERATOR CONVERSION Plan of Treatment Health Maintenance Due Date [...] 04/03/2013, 01/23/2003 Pneumococcal vaccine (65+ years) Completed 05/29/19, 04/08/2012 Hepatitis C Screening Completed 06/01/2016 Colonoscopy [...] ED patients; some inpatients) 05/16/2023 4:34 PM SUBSTATION OPERATOR CONVERSION Injury Head Initial CT HEAD WITHOUT IV CONTRAST RAD - Semiurgent (Fast; most ED patients; some inpatients) 05/16/2023 4:29 PM SUBSTATION OPERATOR CONVERSION Injury Head Initial URINALYSIS WITH MICROSCOPIC Routine 05/16/2023 4:06 PM SUBSTATION OPERATOR CONVERSION Injury Head Initial BACTERIAL CULTURE, AEROBIC + SUSC, URINE Routine 05/16/2023 4:06 PM SUBSTATION OPERATOR CONVERSION Injury Head Initial CBC WITH DIFFERENTIAL, B Routine 05/16/2023 4:05 PM SUBSTATION OPERATOR CONVERSION Injury Head Initial MAGNESIUM, S Routine 05/16/2023 4:05 PM SUBSTATION OPERATOR CONVERSION Injury Head Initial PHOSPHORUS (INORGANIC), S Routine 05/16/2023 4:05 PM SUBSTATION OPERATOR CONVERSION Injury Head Initial ECG Routine 05/16/2023 3:50 PM SUBSTATION OPERATOR CONVERSION Injury Head Initial BASIC METABOLIC PANEL, S/P Routine 05/16/2023 3:35 PM SUBSTATION OPERATOR CONVERSION Injury Head Initial FERRITIN, S Routine 05/16/2023 1:35 PM SUBSTATION OPERATOR CONVERSION Injury Head Initial from Last 3 Months Results * DX Knee Left 4+ Views (05/16/2023 4:34 PM SUBSTATION OPERATOR CONVERSION) Anatomical Region Laterality Modality Lower Extremity, Knee, Muscu loskeletal RST LOS, Musculoskeletal ARZ LOS, Muskuloskeletal FLA LOS Left Digit al Radiography Impressions 05/16/2023 4:38 PM SUBSTATION OPERATOR CONVERSION Approximately 14.2 x 3.3 cm region of consolidation along the medial left knee, suggestive of hemorrhage, possibly due to medial collateral ligament damage. Narrative 05/16/2023 4:38 PM SUBSTATION OPERATOR CONVERSION EXAM: DX KNEE LEFT 4+ VIEWS COMPARISON: [...] Head without IV Contrast (05/16/2023 4:29 PM SUBSTATION OPERATOR CONVERSION) Anatomical Region Laterality Modality Head, Neuroradiology RST LOS , Neuroradiology ARZ LOS, Neuroradiology FLA LOS N/A Computed Tomography 05/16/2023 4:26 PM SUBSTATION OPERATOR CONVERSION Impressions 05/16/2023 4:55 PM SUBSTATION OPERATOR CONVERSION Cerebral atrophy and small vessel ischemic disease. Otherwise normal CT of the head without contrast. Narrative 05/16/2023 4:55 PM SUBSTATION OPERATOR CONVERSION EXAM: CT HEAD WITHOUT IV CONTRAST COMPARISON: [...] Aerobic + Susceptibility, Urine (05/16/2023 4:06 PM SUBSTATION OPERATOR CONVERSION) Urine Culture No growth after 1 day of incubation. 05/18/2023 8:29 AM SUBSTATION OPERATOR CONVERSION MKTO Urine (Urine, Midstream) 05/16/2023 4:06 PM SUBSTATION OPERATOR CONVERSION 05/17/2023 1:48 PM SUBSTATION OPERATOR CONVERSION Comment:Specimen Source Site : Urine Zoe Hope M.D., M.S. LAB MICROBIOLOGY - GENERAL ORDERABLES [facility] [address] [place] [address], [facility] MKTO [facility] [place] [address] [place] [address] * Urinalysis with Microscopic: Urine, Midstream (05/16/2023 4:06 PM SUBSTATION OPERATOR CONVERSION) Source Urine, Urine, Midstream 05/16/2023 4:45 PM SUBSTATION OPERATOR CONVERSION OWAT Clarity Clear Clear 05/16/2023 4:47 PM SUBSTATION OPERATOR CONVERSION OWAT Color Yellow 05/16/2023 4:45 PM SUBSTATION OPERATOR CONVERSION OWAT Comment: ----REFERENCE VALUE---- Colorless Yellow Ny Blood Negative Negative 05/16/2023 4:45 PM SUBSTATION OPERATOR CONVERSION OWAT Nitrite Negative Negative 05/16/2023 4:45 PM SUBSTATION OPERATOR CONVERSION OWAT Leukocyte Esterase Negative Negative 05/16/2023 4:45 PM SUBSTATION OPERATOR CONVERSION OWAT Protein Negative mg/dL 05/16/2023 4:45 PM SUBSTATION OPERATOR CONVERSION OWAT Comment: ----REFERENCE VALUE---- Negative Trace Glucose Negative Negative mg/dL 05/16/2023 4:45 PM SUBSTATION OPERATOR CONVERSION OWAT Ketone Negative Negative mg/dL 05/16/2023 4:45 PM SUBSTATION OPERATOR CONVERSION OWAT Bilirubin Negative Negative 05/16/2023 4:45 PM SUBSTATION OPERATOR CONVERSION OWAT pH 5.5 5.0 - 8.0 05/16/2023 4:45 PM SUBSTATION OPERATOR CONVERSION OWAT Specific Dema 1.005 1.001 - 1.035 05/16/2023 4:45 PM SUBSTATION OPERATOR CONVERSION OWAT Urobilinogen 0.2 0.2 - 1.0 mg/dL 05/16/2023 4:45 PM SUBSTATION OPERATOR CONVERSION OWAT White Blood Cells None Seen /hpf 05/16/2023 4:47 PM SUBSTATION OPERATOR CONVERSION OWAT Comment: ----REFERENCE VALUE---- Males: 0-3 Females: 0-10 Unknown: 0-10 Red Blood Cells None Seen 0 - 2 /hpf 4:47 PM SUBSTATION OPERATOR CONVERSION OWAT Hyaline Casts 1-3 /lpf 05/16/2023 4:47 PM SUBSTATION OPERATOR CONVERSION OWAT Urine (Urine, Midstream) 05/16/2023 4:06 PM SUBSTATION OPERATOR CONVERSION 05/16/2023 4:41 PM SUBSTATION OPERATOR CONVERSION Zoe Hope M.D. MEldaS. LAB URINE ORDERABLE S [facility] [address] [place] [address], [facility] OWAT [facility] [place] [address] [place] [address] * (ABNORMAL) CBC with Differential, Blood (05/16/2023 4:05 PM SUBSTATION OPERATOR CONVERSION) Hemoglobin 13.3 11.6 - 15.0 g/dL 05/16/2023 4:09 PM SUBSTATION OPERATOR CONVERSION OWAT Hematocrit 39.5 35.5 - 44.9 % 05/16/2023 4:09 PM SUBSTATION OPERATOR CONVERSION OWAT Erythrocytes 4.28 3.92 - 5.13 x10(12)/L 05/16/2023 4:09 PM SUBSTATION OPERATOR CONVERSION OWAT MCV 92.3 78.2 - 97.9 fL 05/16/2023 4:09 PM SUBSTATION OPERATOR CONVERSION OWAT RBC Distrib Width 12.2 12.2 - 16.1 % 05/16/2023 4:09 PM SUBSTATION OPERATOR CONVERSION OWAT Platelet Count 433(H) 157 - 371 x10(9)/L 05/16/2023 4:09 PM SUBSTATION OPERATOR CONVERSION OWAT Leukocytes 10.2(H) 3.4 - 9.6 x10(9)/L 05/16/2023 4:09 PM SUBSTATION OPERATOR CONVERSION OWAT Neutrophils 6.87(H) 1.56 - 6.45 x10(9)/L 05/16/2023 4:09 PM SUBSTATION OPERATOR CONVERSION OWAT Lymphocytes 2.46 0.95 - 3.07 x10(9)/L 05/16/2023 4:09 PM SUBSTATION OPERATOR CONVERSION OWAT Monocytes 0.70 0.26 - 0.81 x10(9)/L 05/16/2023 4:09 PM SUBSTATION OPERATOR CONVERSION OWAT Eosinophils 0.07 0.03 - 0.48 x10(9)/L 05/16/2023 4:09 PM SUBSTATION OPERATOR CONVERSION OWAT Basophils 0.05 0.01 - 0.08 x10(9)/L 05/16/2023 4:09 PM SUBSTATION OPERATOR CONVERSION OWAT Blood (Blood, Venous) 05/16/2023 4:05 PM SUBSTATION OPERATOR CONVERSION 05/16/2023 4:05 PM SUBSTATION OPERATOR CONVERSION Zoe Hope M.D., M.S. LAB BLOOD ADD-ON [facility] [address] [place] [address], [place] [facility] [place] [address] [place] [address] * Phosphorus Inorganic (05/16/2023 4:05 PM SUBSTATION OPERATOR CONVERSION) Phosphorus (Inorganic), P 3.7 2.5 - 4.5 mg/dL 05/17/2023 3:17 PM SUBSTATION OPERATOR CONVERSION AUST Blood (Blood, Venous) 05/16/2023 4:05 PM SUBSTATION OPERATOR CONVERSION 05/17/2023 3:02 PM SUBSTATION OPERATOR CONVERSION Zoe Hope M.D., M.S. LAB BLOOD ADD-ON Performing Organization Address [facility]/ZIP Co de Phone Number [facility] [address] [place] [address], [place] [facility] [facility] [address] [place] [address] * Magnesium (05/16/2023 4:05 PM SUBSTATION OPERATOR CONVERSION) Magnesium, P 2.3 1.7 - 2.3 mg/dL 05/16/2023 4:17 PM SUBSTATION OPERATOR CONVERSION OWAT Blood (Blood, Venous) 05/16/2023 4:05 PM SUBSTATION OPERATOR CONVERSION 05/16/2023 4:05 PM SUBSTATION OPERATOR CONVERSION Zoe Hope M.D., M.S. LAB BLOOD ADD-ON [facility] [address] [place] [address], [place] [facility] [place] [address] [place] [address] * ECG 12 Lead (05/16/2023 3:50 PM SUBSTATION OPERATOR CONVERSION) Ventricular Rate ECG/Min 92 BPM MUSE IN Interval 148 ms MUSE QRSD Interval 80 ms MUSE QT Interval 356 ms MUSE QTC Interval 440 ms MUSE P [place] 70 degrees MUSE R [place] 55 degrees MUSE T Wave [place] 36 degrees MUSE 05/16/2023 3:50 PM SUBSTATION OPERATOR CONVERSION 05/16/2023 4:23 PM SUBSTATION OPERATOR CONVERSION Impressions MUSE - 05/16/2023 4:23 PM SUBSTATION OPERATOR CONVERSION Normal sinus rhythm Normal ECG When compared [...] (ABNORMAL) Basic Metabolic Panel (05/16/2023 3:35 PM SUBSTATION OPERATOR CONVERSION) Potassium, P 4.3 3.6 - 5.2 mmol/L 05/16/2023 4:40 PM SUBSTATION OPERATOR CONVERSION OWAT Sodium, P 134(L) 135 - 145 mmol/L 05/16/2023 4:40 PM SUBSTATION OPERATOR CONVERSION OWAT Chloride, P 97(L) 98 - 107 mmol/L 05/16/2023 4:40 PM SUBSTATION OPERATOR CONVERSION OWAT Bicarbonate, P 24 22 - 29 mmol/L 05/16/2023 4:40 PM SUBSTATION OPERATOR CONVERSION OWAT Anion Gap, P 13 7 - 15 05/16/2023 4:40 PM SUBSTATION OPERATOR CONVERSION OWAT BUN (Blood Urea Nitrogen), P 16 6 - 21 mg/dL 05/16/2023 4:40 PM SUBSTATION OPERATOR CONVERSION OWAT Creatinine 0.81 0.59 - 1.04 mg/dL 05/16/2023 4:40 PM SUBSTATION OPERATOR CONVERSION OWAT Estimated GFR (eGFR) 75 >=60 mL/min/BSA 05/16/2023 4:40 PM SUBSTATION OPERATOR CONVERSION OWAT Comment: Estimated GFR calculated using the 2020 CKD_EPI creatinine equation. Calcium, Total, P 9.8 8.8 - 10.2 mg/dL 05/16/2023 4:40 PM SUBSTATION OPERATOR CONVERSION OWAT Glucose, P 102 70 - 140 mg/dL 05/16/2023 4:40 PM SUBSTATION OPERATOR CONVERSION OWAT Blood (Blood, Venous) 05/16/2023 3:35 PM SUBSTATION OPERATOR CONVERSION 05/16/2023 4:22 PM SUBSTATION OPERATOR CONVERSION Zoe Hope M.D., M.S. LAB BLOOD ADD-ON Performing Organization Address [facility] Co de Phone Number [facility] [address], [place] [address], [place] OW[place] [facility] [place] [address] * Ferritin (05/16/2023 1:35 PM SUBSTATION OPERATOR CONVERSION) Ferritin, S 192 11 - 328 mcg/L 05/17/2023 9:14 AM SUBSTATION OPERATOR CONVERSION OWAT Comment: Biotin has been identified by the racker octave board as a potential interfering substance. Higher concentrations of biotin may be found in multivitamins, hair/nail supplements, and workout supplements. If the result does not match clinical observations, repeat testing after patient refrains from the use of supplements for at least 12 hours. Blood (Blood, Venous) 05/16/2023 1:35 PM SUBSTATION OPERATOR CONVERSION 05/16/2023 4:07 PM SUBSTATION OPERATOR CONVERSION Zoe Hope M.D., M.S. LAB BLOOD ADD-ON Performing Organization Address [facility] Co de Phone Number [facility] [address], [place] [address], [place] [employer] [facility] [place] [address], [place] [address] from Last 3 Months Care Teams Boiler Tender Relationship Specialty Start Date End Date Tigre Preciado P.A.-C., P.A. PCP - General Family Medicine 10/11/19
--- OUTSIDE RECORDS SUMMARY | 2023-07-26 07:11 | XMS_ITS | Referral Summary ---
Author Name Unknown Organization [facility] Address [address] [place] [address] Care Team Providers Care Rail Walker Name Role Phone Tigre Preciado P.A.-C., P.A. Primary Care Pr ovider Source Comments Patient records contain information from all sites at [facility]. For routine questions regarding patient records, call [phone] during business hours, M-F 8:00 AM - 5:00 PM Central Time. Record requests for emergency care only can be directed to [phone] at any time.[facility] Encounters Date Type Department Care Team Description 07/22/2023 Orders Only Division of Endocrinology in [place], [place] [address] [place] [phone] Duncan Mcgraw M.D. 07/22/2023 Clinical Communication Division of Endocrinology in [place], [place] [address] [place] [phone] Duncan Mcgraw M.D. Reclast 07/02/2023 Orders Only Division of Endocrinology in [place], [place] [address] [place] [address] Duncan Mcgraw M.D. Osteoporosis (Primary Dx) 05/25/2023 Orders Only [facility] Tigre Preciado P.A.-C., P.A. 05/16/2023 Clinical Communication Department of Orthopedic Surgery in [place], [place] [address] [place] [address] Sebastián Esteban M.D. 05/16/2023 3:57 PM MAKE UP ARRANGER - 05/16/2023 11:59 PM MAKE UP ARRANGER Hospital Encounter Department of Radiology in [address] [address] Zoe Hope M.D., M.S. Injury Head Initial Discharge Disposition: Home or Self Care 05/16/2023 3:56 PM MAKE UP ARRANGER Hospital Encounter Department of Radiology in [address] [address] Zoe Hope M.D., M.S. Injury Head Initial Discharge Disposition: Home or Self Care 05/16/2023 3:00 PM MAKE UP ARRANGER Office Visit Department of Family Medicine, [facility], in [address] [address] Zoe Hope M.D., M.S. Injury Head Initial (Primary Dx); History Of Falling 05/16/2023 Nurse Triage Department of Family Medicine, [facility], in [address] [address] Valerie Wadsworth R.N. Head Injury; Knee Injury [...] mg by mouth daily. 0 Active vitamin A,C,O-necanf-ravzg als (OCUVITE W/LUTEIN) 1,000 Unit-200 mg-60 Unit-2 [...] wheezing. 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 We also discussed management options with vaginal [...] Answer Date Recorded PHQ-2 Score 0 06/26/2021 [facility] of Occupat ional Health - Occupational Stress [...] Comments Blood Pressure 150/89 05/16/2023 2:41 PM MAKE UP ARRANGER Pulse 111 05/16/2023 2:41 PM MAKE UP ARRANGER Temperature 37.5 ??C (99.5 ??F) 05/16/2023 2:41 PM CS T Respiratory Rate 16 08/15/2022 12:16 PM CDT Oxygen Saturation 99% 08/15/2022 12:16 PM CDT Inhaled Oxygen Concentration - - Weight 56.7 kg (125 lb) 05/16/2023 2:41 PM MAKE UP ARRANGER Height 160.3 cm (5' 3.11) 05/26/2022 9:30 AM CS T Body Mass Index 22.07 05/26/2022 9:30 AM MAKE UP ARRANGER Plan of Treatment Not on file Procedures Procedure Name Priority Date/Time Associated Diagnosis Comments DX KNEE LEFT 4+ VIEWS RAD - Semiurgent (Fast; most ED patients; some inpatients) 05/16/2023 4:34 PM MAKE UP ARRANGER Injury Head Initial CT HEAD WITHOUT IV CONTRAST RAD - Semiurgent (Fast; most ED patients; some inpatients) 05/16/2023 4:29 PM MAKE UP ARRANGER Injury Head Initial URINALYSIS WITH MICROSCOPIC Routine 05/16/2023 4:06 PM MAKE UP ARRANGER Injury Head Initial BACTERIAL CULTURE, AEROBIC + SUSC, URINE Routine 05/16/2023 4:06 PM MAKE UP ARRANGER Injury Head Initial CBC WITH DIFFERENTIAL, B Routine 05/16/2023 4:05 PM MAKE UP ARRANGER Injury Head Initial MAGNESIUM, S Routine 05/16/2023 4:05 PM MAKE UP ARRANGER Injury Head Initial PHOSPHORUS (INORGANIC), S Routine 05/16/2023 4:05 PM MAKE UP ARRANGER Injury Head Initial ECG Routine 05/16/2023 3:50 PM MAKE UP ARRANGER Injury Head Initial BASIC METABOLIC PANEL, S/P Routine 05/16/2023 3:35 PM MAKE UP ARRANGER Injury Head Initial FERRITIN, S Routine 05/16/2023 1:35 PM MAKE UP ARRANGER Injury Head Initial from Last 3 Months Results * DX Knee Left 4+ Views (05/16/2023 4:34 PM MAKE UP ARRANGER) Anatomical Region Laterality Modality Lower Extremity, Knee, Muscu loskeletal RST LOS, Musculoskeletal ARZ LOS, Muskuloskeletal FLA LOS Left Digit al Radiography Impressions 05/16/2023 4:38 PM MAKE UP ARRANGER Approximately 14.2 x 3.3 cm region of consolidation along the medial left knee, suggestive of hemorrhage, possibly due to medial collateral ligament damage. Narrative 05/16/2023 4:38 PM MAKE UP ARRANGER EXAM: DX KNEE LEFT 4+ VIEWS COMPARISON: [...] Head without IV Contrast (05/16/2023 4:29 PM MAKE UP ARRANGER) Anatomical Region Laterality Modality Head, Neuroradiology RST LOS , Neuroradiology ARZ LOS, Neuroradiology FLA LOS N/A Computed Tomography 05/16/2023 4:26 PM MAKE UP ARRANGER Impressions 05/16/2023 4:55 PM MAKE UP ARRANGER Cerebral atrophy and small vessel ischemic disease. Otherwise normal CT of the head without contrast. Narrative 05/16/2023 4:55 PM MAKE UP ARRANGER EXAM: CT HEAD WITHOUT IV CONTRAST COMPARISON: [...] Aerobic + Susceptibility, Urine (05/16/2023 4:06 PM MAKE UP ARRANGER) Urine Culture No growth after 1 day of incubation. 05/18/2023 8:29 AM MAKE UP ARRANGER [facility] Urine (Urine, Midstream) 05/16/2023 4:06 PM MAKE UP ARRANGER 05/17/2023 1:48 PM MAKE UP ARRANGER Comment:Specimen Source Site : Urine Zoe Hope M.D., M.S. LAB MICROBIOLOGY - GENERAL ORDERABLES [facility] [address] [place] [address], [facility] in [place] [address] [place] [address] * Urinalysis with Microscopic: Urine, Midstream (05/16/2023 4:06 PM MAKE UP ARRANGER) Source Urine, Urine, Midstream 05/16/2023 4:45 PM MAKE UP ARRANGER OWAT Clarity Clear Clear 05/16/2023 4:47 PM MAKE UP ARRANGER OWAT Color Yellow 05/16/2023 4:45 PM MAKE UP ARRANGER OWAT Comment: ----REFERENCE VALUE---- Colorless Yellow Ny Blood Negative Negative 05/16/2023 4:45 PM MAKE UP ARRANGER OWAT Nitrite Negative Negative 05/16/2023 4:45 PM MAKE UP ARRANGER OWAT Leukocyte Esterase Negative Negative 05/16/2023 4:45 PM MAKE UP ARRANGER OWAT Protein Negative mg/dL 05/16/2023 4:45 PM MAKE UP ARRANGER OWAT Comment: ----REFERENCE VALUE---- Negative Trace Glucose Negative Negative mg/dL 05/16/2023 4:45 PM MAKE UP ARRANGER OWAT Ketone Negative Negative mg/dL 05/16/2023 4:45 PM MAKE UP ARRANGER OWAT Bilirubin Negative Negative 05/16/2023 4:45 PM MAKE UP ARRANGER OWAT pH 5.5 5.0 - 8.0 05/16/2023 4:45 PM MAKE UP ARRANGER OWAT Specific [place] 1.005 1.001 - 1.035 05/16/2023 4:45 PM MAKE UP ARRANGER OWAT Urobilinogen 0.2 0.2 - 1.0 mg/dL 05/16/2023 4:45 PM MAKE UP ARRANGER OWAT White Blood Cells None Seen /hpf 05/16/2023 4:47 PM MAKE UP ARRANGER OWAT Comment: ----REFERENCE VALUE---- Males: 0-3 Females: 0-10 Unknown: 0-10 Red Blood Cells None Seen 0 - 2 /hpf 4:47 PM MAKE UP ARRANGER OWAT Hyaline Casts 1-3 /lpf 05/16/2023 4:47 PM MAKE UP ARRANGER OWAT Urine (Urine, Midstream) 05/16/2023 4:06 PM MAKE UP ARRANGER 05/16/2023 4:41 PM MAKE UP ARRANGER Zoe Hope M.D., M.S. LAB URINE ORDERABLE S [facility] [address], [place] [address], [facility] OWAT [facility] in [place] [address], [place] [address] * (ABNORMAL) CBC with Differential, Blood (05/16/2023 4:05 PM MAKE UP ARRANGER) Hemoglobin 13.3 11.6 - 15.0 g/dL 05/16/2023 4:09 PM MAKE UP ARRANGER OWAT Hematocrit 39.5 35.5 - 44.9 % 05/16/2023 4:09 PM MAKE UP ARRANGER OWAT Erythrocytes 4.28 3.92 - 5.13 x10(12)/L 05/16/2023 4:09 PM MAKE UP ARRANGER OWAT MCV 92.3 78.2 - 97.9 fL 05/16/2023 4:09 PM MAKE UP ARRANGER OWAT RBC Distrib Width 12.2 12.2 - 16.1 % 05/16/2023 4:09 PM MAKE UP ARRANGER OWAT Platelet Count 433(H) 157 - 371 x10(9)/L 05/16/2023 4:09 PM MAKE UP ARRANGER OWAT Leukocytes 10.2(H) 3.4 - 9.6 x10(9)/L 05/16/2023 4:09 PM MAKE UP ARRANGER OWAT Neutrophils 6.87(H) 1.56 - 6.45 x10(9)/L 05/16/2023 4:09 PM MAKE UP ARRANGER OWAT Lymphocytes 2.46 0.95 - 3.07 x10(9)/L 05/16/2023 4:09 PM MAKE UP ARRANGER OWAT Monocytes 0.70 0.26 - 0.81 x10(9)/L 05/16/2023 4:09 PM MAKE UP ARRANGER OWAT Eosinophils 0.07 0.03 - 0.48 x10(9)/L 05/16/2023 4:09 PM MAKE UP ARRANGER OWAT Basophils 0.05 0.01 - 0.08 x10(9)/L 05/16/2023 4:09 PM MAKE UP ARRANGER OWAT Blood (Blood, Venous) 05/16/2023 4:05 PM MAKE UP ARRANGER 05/16/2023 4:05 PM MAKE UP ARRANGER Zoe Hope M.D., M.S. LAB BLOOD ADD-ON [facility] [address] [place] [address], [place] [employer] in [place] [address] [place] [address] * Phosphorus Inorganic (05/16/2023 4:05 PM MAKE UP ARRANGER) Phosphorus (Inorganic), P 3.7 2.5 - 4.5 mg/dL 05/17/2023 3:17 PM MAKE UP ARRANGER AUST Blood (Blood, Venous) 05/16/2023 4:05 PM MAKE UP ARRANGER 05/17/2023 3:02 PM MAKE UP ARRANGER Zoe Hope M.D., M.S. LAB BLOOD ADD-ON [facility] [address] [place] [address], [place] [facility] [facility] [address] [place] [address] * Magnesium (05/16/2023 4:05 PM MAKE UP ARRANGER) Magnesium, P 2.3 1.7 - 2.3 mg/dL 05/16/2023 4:17 PM MAKE UP ARRANGER OWAT Blood (Blood, Venous) 05/16/2023 4:05 PM MAKE UP ARRANGER 05/16/2023 4:05 PM MAKE UP ARRANGER Zoe Hope M.D., M.S. LAB BLOOD ADD-ON Performing Organization Address [facility] Co de Phone Number [facility] [address] [place] [address], [place] OW[place] [facility] in [place] [address] [place] [address] * ECG 12 Lead (05/16/2023 3:50 PM MAKE UP ARRANGER) Ventricular Rate ECG/Min 92 BPM MUSE RI Interval 148 ms MUSE QRSD Interval 80 ms MUSE QT Interval 356 ms MUSE QTC Interval 440 ms MUSE P [place] 70 degrees MUSE R [place] 55 degrees MUSE T Wave [place] 36 degrees MUSE 05/16/2023 3:50 PM MAKE UP ARRANGER 05/16/2023 4:23 PM MAKE UP ARRANGER Impressions MUSE - 05/16/2023 4:23 PM MAKE UP ARRANGER Normal sinus rhythm Normal ECG When compared with ECG of 15-AUG-2022 12:49, No significant change was found Reviewed by MAYLIN Cool Narrative Procedure Note Sree Valladares M.D., Ph.D. - 05/16/2023 IMPRESSION: Normal sinus rhythm Normal ECG When compared with ECG of 15-AUG-2022 12:49, No significant change was found Reviewed by MAYLIN Cool Zoe Hope M.D., M.S. ECG ORDERABLES Performing Organization Address [facility] Co de Phone Number MUSE NA * (ABNORMAL) Basic Metabolic Panel (05/16/2023 3:35 PM MAKE UP ARRANGER) Potassium, P 4.3 3.6 - 5.2 mmol/L 05/16/2023 4:40 PM MAKE UP ARRANGER OWAT Sodium, P 134(L) 135 - 145 mmol/L 05/16/2023 4:40 PM MAKE UP ARRANGER OWAT Chloride, P 97(L) 98 - 107 mmol/L 05/16/2023 4:40 PM MAKE UP ARRANGER OWAT Bicarbonate, P 24 22 - 29 mmol/L 05/16/2023 4:40 PM MAKE UP ARRANGER OWAT Anion Gap, P 13 7 - 15 05/16/2023 4:40 PM MAKE UP ARRANGER OWAT BUN (Blood Urea Nitrogen), P 16 6 - 21 mg/dL 05/16/2023 4:40 PM MAKE UP ARRANGER OWAT Creatinine 0.81 0.59 - 1.04 mg/dL 05/16/2023 4:40 PM MAKE UP ARRANGER OWAT Estimated GFR (eGFR) 75 >=60 mL/min/BSA 05/16/2023 4:40 PM MAKE UP ARRANGER OWAT Comment: Estimated GFR calculated using the 2020 CKD_EPI creatinine equation. Calcium, Total, P 9.8 8.8 - 10.2 mg/dL 05/16/2023 4:40 PM MAKE UP ARRANGER OWAT Glucose, P 102 70 - 140 mg/dL 05/16/2023 4:40 PM MAKE UP ARRANGER OWAT Blood (Blood, Venous) 05/16/2023 3:35 PM MAKE UP ARRANGER 05/16/2023 4:22 PM MAKE UP ARRANGER Zoe Hope M.D., M.S. LAB BLOOD ADD-ON [facility] [address] [place] [address], [facility] OW[facility] in [place] [address] [place] [address] * Ferritin (05/16/2023 1:35 PM MAKE UP ARRANGER) Ferritin, S 192 11 - 328 mcg/L 05/17/2023 9:14 AM MAKE UP ARRANGER OWAT Comment: Biotin has been identified by the disc pad plate filler as a potential interfering substance. Higher concentrations of biotin may be found in multivitamins, hair/nail supplements, and workout supplements. If the result does not match clinical observations, repeat testing after patient refrains from the use of supplements for at least 12 hours. Blood (Blood, Venous) 05/16/2023 1:35 PM MAKE UP ARRANGER 05/16/2023 4:07 PM MAKE UP ARRANGER Zoe Hope M.D., M.S. LAB BLOOD ADD-ON [facility] [address] [place] [address], [place] [facility] [facility] in [place] [address] [place] [address] from Last 3 Months Care Teams Rail Walker Relationship Specialty Start Date End Date Tigre Preciado P.A.-C., P.A. PCP - General Family Medicine 10/11/19
--- OUTSIDE RECORDS SUMMARY | 2023-07-26 07:12 | XMS_ITS | Clinical Summary ---
Author Name Unknown Organization [employer] [facility] Address [place], [place] [address] Care Team Providers Care Collar Packer Name Role Phone Kanchan Granda NP Primary Care Provider [phone] Allergies Active Allergy Reactions Criticality Noted Date [...] 0 11/07/2009 Active SUMAtriptan (IMITREX) 25 mg tabletIndications:Hedarrell dacpj(784.0) TAKE ONE TABLET BY MOUTH EVERY 2 HOURS NEEDED FOR MIGRAINE. MAX DOSE: 200MG PER 24 HOURS. 9 tablet 5 03/09/2012 Active Additional Information Patient taking differently:OralQ 2H PRN, Reported on 01/16/2020 vit A,C and R-lwrwkw-wremssio (OCUVITE WITH LUTEIN) 1,000 unit-200 mg-60 unit-2 mg tab Take 1 Tab by mouth once daily. Active Magnesium 200 mg tab Take 400 mg by mouth once daily. Active cyanocobalamin (VITAMIN B12) 100 mcg tablet Take 100 mcg by mouth once daily. Active nystatin (MYCOSTATIN) 100,000 unit/mL suspension Take 500,000 units by mouth. 02/21/2020 Active MULTIVITAMIN ORAL Take 1 tablet by mouth once daily. With elderberry Active vit A/vit C/bioflav/Zn/Herb25 (ECHINACEA ACZ ORAL) Take 1 tablet by mouth once daily. Active ondansetron (ZOFRAN) 4 mg tabletIndications:His tory of colonic polyps Take 1 tablet by mouth every 8 hours if needed for Nausea/Vomiting. Take one tablet prior to each half of the Golytely 2 tablet 03/12/2020 Active codeine-guaiFENesin (ROBITUSSIN AC) 10-100 mg/5 mL liquidIndications:Cou gh,Acute bronchiolitis due to unspecified organism Take 10 mL by mouth at bedtime if needed for Cough. Max dose 60 mL per 24 hrs. 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 We also discussed management options with vaginal estrogen therapy, pessary, or surgical intervention. She is not interested in these options at this time. I recommend she follow up as needed in the future. Osteoporosis 07/20/2017 Personal history of colonic polyps 11/10/2012 Reactive airway disease 07/12/2009 Headache(784.0) 01/09/2009 Encounters Date Type Department Care Team Description 06/04/2023 Orders Only [facility] [address] [place] [address] Annelise Busch 1 scan: (1-Ord) Holter Report ([id number]) 06/02/2023 10:14 AM STARS COORDINATOR - 06/02/2023 11:59 PM STARS COORDINATOR Hospital Encounter [facility] [address] [place] [address] Kanchan Granda NP 06/02/2023 10:00 AM STARS COORDINATOR Ancillary Procedure [facility] & [address] [address] 06/02/2023 Travel 05/16/2023 Orders Only [facility] Staff, Other Clinical 1 scan: (1-Ord) <No description> 05/16/2023 Orders Only [facility] Staff, Other Clinical 1 scan: (1-Ord) <No description> from Last 3 Months Immunizations Name Administration Dates Next Due COVID-19 vaccine ([employer] 30mcg/0.3mL) P F, MDV 02/24/2021 Influenza, IIV3 [...] 159 cm (5' 2.6) 02/29/2020 12:48 PM STARS COORDINATOR Body Mass Index 22.61 02/29/2020 12:48 PM STARS COORDINATOR Plan of Treatment Health Maintenance Due Date [...] 02/24/2021, 07/04/2020, 06/06/2020 Influenza for age 65+ 12/19/2023 02/03/2021 , 02/19/2020, 01/21/2009 Tdap Completed 01/23/2003 Procedures Procedure Name Priority Date/Time Associated Diagnosis Comments HOLTER MONITOR 48 HOURS Routine 06/10/2023 12:00 AM STARS COORDINATOR Syncope ECHO TTE COMPLETE WO CONTRAST Routine 06/02/2023 10:56 AM STARS COORDINATOR Syncope and collapse SCAN-RADIOLOGY REPORT 05/16/2023 4:34 PM STARS COORDINATOR SCAN-RADIOLOGY REPORT 05/16/2023 4:29 PM STARS COORDINATOR from Last 3 Months Results * HOLTER MONITOR 48 HOURS (06/10/2023 12:00 AM STARS COORDINATOR) Kanchan Granda LACTATION SPECIALIST CARDIAC SERVICES [address] * ECHO TTE COMPLETE WO CONTRAST (06/02/2023 10:56 AM STARS COORDINATOR) AORTIC VALVE MEAN PG 5 mmHg EJECTION FRACTION 69 % LVEDD 4.0 cm Anatomical Region Laterality Modality Ultrasound 06/02/2023 10:1 4 AM STARS COORDINATOR Narrative 06/02/2023 11:10 AM STARS COORDINATOR ECHOCARDIOGRAM ISADORA BACK ? Accession#: ?? [id number] : ?1945 78 years Study Date: ?? 06/02/2023 10:14:46 AM Gender: F ?BP: ? 110/64 mmHg Height: 157.00 cm ?BSA: ?1.57 m? ? ? Weight: 57.00 kg ? Tech: ? MSR ? Referring MD: KANCHAN GRANDA Site: ? [facility] Reading Location: Mobile OP Patient Location: Outpatient. Procedure: 2D, Color Doppler and Spectral Doppler. Indication for study: Syncope and collapse Cardiac Rhythm: Regular.Study quality: Fair. Final Impressions: 1. Normal left ventricular size, normal wall thickness, normal global systolic function, calculated EF of 69 %. 2. Right ventricular cavity size is normal, global systolic RV function is normal. 3. Normal left atrium size. 4. The aortic valve is sclerotic, no stenosis and trivial regurgitation. 5. The mitral valve is moderate mitral annular calcification (posterior), trace mitral regurgitation. 6. Tricuspid valve is normal. 7. No pericardial effusion. Chamber Sizes and Function Normal left ventricular size, normal wall thickness, normal global systolic function, calculated EF of 69 %. Left atrial size is normal. Right ventricular cavity size is normal, global systolic RV function is normal. RV wall thickness is normal. The right atrium is normal. The pulmonary artery is of normal size and origin. The sinus of Valsalva is normal sized. The ascending aorta is normal sized. Valves, RV Pressures and Diastolic Function The aortic valve is sclerotic, no stenosis and trivial regurgitation. The mitral valve is moderate mitral annular calcification (posterior), trace mitral regurgitation. Normal diastolic function. The tricuspid valve is normal in structure. Tricuspid regurgitation is regurgitation is not evident. The pulmonic valve is normal. No pulmonary regurgitation. Masses, Effusion, Shunts There is no pericardial effusion. The inferior vena cava is normal sized, respiratory size variation greater than 50%. Interatrial septum is not well visualized. MEASUREMENTS AND CALCULATIONS 2-D Measurements and LV Function: LVID (d) 4.0 cm Planimetered EF 69 % LVID (s) 1.9 cm LV FS% (2D) ? 51 % IVS (d) ??0.8 cm LVOT diameter ?? 2.0 cm LVPW (d) 0.9 cm HR ?82 bpm Ao Sinus 2.6 cm LA Vol index ?24 ml/m2 Asc Ao ?? 3.0 cm RV Max 4C (d) ?? 3.5 cm Diastology: Mitral ?Tissue Doppler E Peak 0.9 m/s ??e', Septum ? 0.08 m/s A Peak 1.1 m/s ??e', Lateral ?0.09 m/s E/A ?0.9 ?E/e' Average ?? 10.36 DT ? 213 msec Aortic Valve: Vmax ? 1.4 m/s ??CHRISTOPHER (V) ?? 2.26 cm? ? ? VTI ?0.33 m ?? CHRISTOPHER (I) ?? 2.42 cm? ? ? LVOT V max 1.0 m/s ??Max PG ?8 mmHg LVOT VTI ?? 0.26 m ?? Mean PG ?? 5 mmHg SV ? 80 ml ?Dim Index 0.79 SV index ?? 51 ml/m? ? ? CO ?6.5 l/min ?CI ?4.2 l/min/m? ? ? Mitral Valve: MVA ?3.6 cm? ? ? MV P 1/2 62 msec Tricuspid Valve and estimated PA pressures: TAPSE 1.9 cm Pulmonic Valve: PIEDV 1.2 m/s . This study was interpreted by an [facility] accredited facility. CC: HIM (med [facility]) [facility]. ??Final ?? Procedure Note Diann Barroso, [facility] - 06/02/2023 ECHOCARDIOGRAM ISADORA BACK : 1945 78 years Study Date: 06/02/2023 10:14:46 AM Gender: F BP: 110/64 mmHg Height: 157.00 cm BSA: 1.57 m? ? ? Weight: 57.00 kg Tech: PALLAVI Referring MD: KANCHAN GRANDA Site: [facility] Reading Location: Mobile OP Patient Location: Outpatient. Procedure: 2D, Color Doppler and Spectral Doppler. Indication for study: Syncope and collapse Cardiac Rhythm: Regular.Study quality: Fair. Final Impressions: 1. Normal left ventricular size, normal wall thickness, normal globalsystolic function, calculated EF of 69 %. 2. Right ventricular cavity size is normal, global systolic RV functionis normal. 3. Normal left atrium size. 4. The aortic valve is sclerotic, no stenosis and trivialregurgitation. 5. The mitral valve is moderate mitral annular calcification (posterior),trace mitral regurgitation. 6. Tricuspid valve is normal. 7. No pericardial effusion. Chamber Sizes and Function Normal left ventricular size, normal wall thickness, normal globalsystolic function, calculated EF of 69 %. Left atrial size is normal.Right ventricular cavity size is normal, global systolic RV function isnormal. RV wall thickness is normal. The right atrium is normal. Thepulmonary artery is of normal size and origin. The sinus of Valsalva isnormal sized. The ascending aorta is normal sized. Valves, RV Pressures and Diastolic Function The aortic valve is sclerotic, no stenosis and trivial regurgitation. Themitral valve is moderate mitral annular calcification (posterior), tracemitral regurgitation. Normal diastolic function. The tricuspid valve isnormal in structure. Tricuspid regurgitation is regurgitation is notevident. The pulmonic valve is normal. No pulmonary regurgitation. Masses, Effusion, Shunts There is no pericardial effusion. The inferior vena cava is normal sized,respiratory size variation greater than 50%. Interatrial septum is notwell visualized. MEASUREMENTS AND CALCULATIONS 2-D Measurements and LV Function: LVID (d) 4.0 cm Planimetered EF 69 % LVID (s) 1.9 cm LV FS% (2D) 51 % IVS (d) 0.8 cm LVOT diameter 2.0 cm LVPW (d) 0.9 cm HR 82 bpm Ao Sinus 2.6 cm LA Vol index 24 ml/m2 Asc Ao 3.0 cm RV Max 4C (d) 3.5 cm Diastology: Mitral Tissue Doppler E Peak 0.9 m/s e', Septum 0.08 m/s A Peak 1.1 m/s e', Lateral 0.09 m/s E/A 0.9 E/e' Average 10.36 DT 213 msec Aortic Valve: Vmax 1.4 m/s CHRISTOPHER (V) 2.26 cm? ? ? VTI 0.33 m CHRISTOPHER (I) 2.42 cm? ? ? LVOT V max 1.0 m/s Max PG 8 mmHg LVOT VTI 0.26 m Mean PG 5 mmHg SV 80 ml Dim Index 0.79 SV index 51 ml/m? ? ? CO 6.5 l/min CI 4.2 l/min/m? ? ? Mitral Valve: MVA 3.6 cm? ? ? MV P 1/2 62 msec Tricuspid Valve and estimated PA pressures: TAPSE 1.9 cm Pulmonic Valve: PIEDV 1.2 m/s . This study was interpreted by an [facility] accredited facility. CC: HIM (med records) [facility]. Final Kanchan Granda NP ECHO ORD * SCAN-RADIOLOGY REPORT (05/16/2023 4:34 PM STARS COORDINATOR) Only the most recent of2 resultswithin the time period is included. Anatomical Region Laterality Modality Other Narrative 05/16/2023 4:34 PM STARS COORDINATOR Ordered by an unspecified provider. Other Clinical Staff OTHER from Last 3 Months Advance Directives * Full Code (Latest Code Status on File) Date Activated Date Inactivated Comments 03/13/2020 7:36 AM 03/13/2020 1:19 PM Question Answer Comments Code Status Discussion: Not Discussed Care Teams Collar Packer Relationship Specialty Start Date End Date Kanchan Granda NP [address] [facility] [place] [id number] PCP - General Emergency Medicine 06/02/23
--- OUTSIDE RECORDS SUMMARY | 2023-07-26 07:12 | XMS_ITS | Encounter Summary ---
Author Name Unknown Organization [facility] Address [address] [place] [address] Care Team Providers Care Monomer Recovery Supervisor Name Role Phone Tigre Preciado P.A.-C., P.A. Primary Care Pr ovider Encounter Details Date Type Department Care Team (Late st Contact Info) Description 07/22/2023 Orders Only Division of Endocrinology in [place], [place] [address] [place] [phone] Duncan Mcgraw M.D. [address] [place] [address] Social History Tobacco Use Types Packs/Day Years [...] Answer Date Recorded PHQ-2 Score 0 06/26/2021 [facility] [place] of Occupat ional Health - Occupational Stress [...] Total Score: 1 06/02/19 18 9:34 AM TEST LEAD documented as of this encounter Care Teams Monomer Recovery Supervisor Relationship Specialty Start Date End Date Tigre Preciado P.A.-C., P.A. PCP - General Family Medicine 10/11/19 documented as of this encounter
--- OUTSIDE RECORDS SUMMARY | 2023-07-26 07:12 | XMS_ITS | Encounter Summary ---
Author Name Unknown Organization [facility] Address [address] [place] [address] Care Team Providers Care New Car Driver Name Role Phone Tigre Preciado P.A.-C., P.A. Primary Care Pr ovider Reason for Visit * Reason Onset Date Comments Head Injury 05/16/2023 Knee Injury 05/16/2023 Encounter Details Date Type Department Care Team (Late st Contact Info) Description 05/16/2023 Nurse Triage Department of Family Medicine, [facility], in [place], [place] [address] [place] [address] Valerie Wadsworth, R.N. Head Injury; [...] Answer Date Recorded PHQ-2 Score 0 06/26/2021 [facility] of Occupat ional Health - Occupational Stress [...] Valerie Wadsworth, REldaN. - 05/16/2023 2:23 PM FIELD SERVICES ANALYST Chief Complaint / Reason for Call Patient is a 78 y.o. female and calling regarding Head Injury and Knee Injury Assessment Concern: Gervais dizzy when she got up to go [...] [2] swelling or bruise Protocols used: Head Gyqiuc-JWECH-FL Care Advice Patient/Caregiver understands and will follow care advice?: Yes, able to teach back SEE HCP (OR PCP TRIAGE) WITHIN 4 HOURS: * IF OFFICE WILL BE OPEN: You need to be seen within the next 3 or 4 hours. Call your doctor (or RAND MAKER/PA) now or as soon as the office opens. CALL BACK IF: * You become worse CARE ADVICE given per Head Injury (Adult) guideline. D SERVICES ANALYST documented in this encounter Plan of Treatment Not on file documented as of this encounter Visit Diagnoses Not on filedocumented in this encounter Additional Health Concerns Assessment Noted Time PHQ-9 Depression Total Score: 1 06/02/19 18 9:34 AM FIELD SERVICES ANALYST documented as of this encounter Care Teams New Car Driver Relationship Specialty Start Date End Date Tigre Preciado P.A.-C., P.A. PCP - General Family Medicine 10/11/19 documented as of this encounter
--- OUTSIDE RECORDS SUMMARY | 2023-07-26 07:12 | XMS_ITS | Encounter Summary ---
Author Name Unknown Organization [facility] Address [address] [place] [address] Care Team Providers Care Shoe Sewing Machine Operator And Tender Name Role Phone Tigre Preciado P.A.-C., P.A. Primary Care Pr ovider Reason for Referral * MRI/CAT/PET Scan (Routine) - Closed Specialty Diagnoses / Procedures Referred By Treva field Referred To Contact Radiology Diagnoses Injury Head Initial Procedures CT Head without IV Contrast Zoe Hope M.D., M.S. [address] [place] [address] [facility] Region Referral ID Status Reason Start Date Expiration Date Visits Re quested Visits Authorized [id number] Closed 05/16/2023 05/15/2024 1 1 E MAN Reason for Visit * MRI/CAT/PET Scan (Routine) - Closed Specialty Diagnoses / Procedures Referred By Treva field Referred To Contact Radiology Diagnoses Injury Head Initial Procedures CT Head without IV Contrast Zoe Hope M.D., M.S. [address] [place] [address] [facility] Region Referral ID Status Reason Start Date Expiration Date Visits Re quested Visits Authorized [id number] Closed 05/16/2023 05/15/2024 1 1 Encounter Details Date Type Department Care Team (Latest Contact Info) Description 05/16/2023 3:56 PM BROKE MAN Hospital Encounter Department of Radiology in [place], [place] [address] [place] [address] Zoe Hope M.D., M.S. [address] [place] [address] Injury Head Initial Discharge Disposition: [...] MIGRAINE UNRESOLVED. 9 tablet 5 07/31/2022 vitamin A,C,I-afgeeo-qgvoumuy (OCUVITE W/LUTEIN) 1,000 Unit-200 mg-60 Unit-2 mg tablet Take 1 tablet by mouth as needed. 0 zoledronic wgmo-gpeietaZ-fppba (RECLAST) 5 mg/100 mL piggyback Infuse 5 mg into a venous catheter once. Once yearly- last dose 06/10/22 0 documented as of this encounter Plan of Treatment Not on file documented as of this encounter Procedures Procedure Name Priority Date/Time Associated Diagnosis Comments CT HEAD WITHOUT IV CONTRAST RAD - Semiurgent (Fast; most ED patients; some inpatients) 05/16/2023 4:29 PM BROKE MAN Injury Head Initial documented in this encounter Results * CT Head without IV Contrast (05/16/2023 4:29 PM BROKE MAN) Anatomical Region Laterality Modality Head, Neuroradiology RST LOS , Neuroradiology ARZ LOS, Neuroradiology FLA LOS N/A Computed Tomography 05/16/2023 4:26 PM BROKE MAN Impressions 05/16/2023 4:55 PM BROKE MAN Cerebral atrophy and small vessel ischemic disease. Otherwise normal CT of the head without contrast. Narrative 05/16/2023 4:55 PM BROKE MAN EXAM: CT HEAD WITHOUT IV CONTRAST COMPARISON: [...] Total Score: 1 06/02/19 18 9:34 AM BROKE MAN documented as of this encounter Care Teams Shoe Sewing Machine Operator And Tender Relationship Specialty Start Date End Date Tigre Preciado P.A.-C., P.A. PCP - General Family Medicine 10/11/19 documented as of this encounter
--- OUTSIDE RECORDS SUMMARY | 2023-07-26 07:12 | XMS_ITS | Encounter Summary ---
Author Name Unknown Organization [facility] Address [address] [place] [address] Care Team Providers Care Clay Maker Name Role Phone Tigre Preciado P.A.-C., P.A. Primary Care Pr ovider Encounter Details Date Type Department Care Team (Late st Contact Info) Description 05/25/2023 Orders Only [facility] Tigre Preciado P.A.-C., P.A. [address] [facility] [place] [phone] Social History Tobacco Use Types Packs/Day Years [...] Answer Date Recorded PHQ-2 Score 0 06/26/2021 [facility] [place] of Occupat ional Health - Occupational Stress [...] Total Score: 1 06/02/19 18 9:34 AM SUPERVISOR PRODUCTION documented as of this encounter Care Teams Clay Maker Relationship Specialty Start Date End Date Tigre Preciado P.A.-C., P.A. PCP - General Family Medicine 10/11/19 documented as of this encounter
--- OUTSIDE RECORDS SUMMARY | 2023-07-26 07:12 | XMS_ITS | Encounter Summary ---
Author Name Unknown Organization [facility] Address [address] [place] [address] Care Team Providers Care Program Production Specialist Name Role Phone Tigre Preciado P.A.-C., P.A. Primary Care Pr ovider Reason for Referral * Outpatient (Routine) - Authorized Specialty Diagnoses / Procedures Referred By Contac t Referred To Contact Diagnoses Injury Head Initial Procedures ECG 12 Lead Zoe Hope M.D., M.S. [address] [place] [address] [facility] Region Referral ID Status Reason Start Date Expiration Date V isits Requested Visits Authorized [id number] Authorized 05/16/2023 05/15/2024 1 1 ADMINISTRATOR * MRI/CAT/PET Scan (Routine) - Closed Specialty Diagnoses / Procedures Referred By Contac t Referred To Contact Radiology Diagnoses Injury Head Initial Procedures CT Head without IV Contrast Zoe Hope M.D., M.S. [address] [place] [address] [facility] Region Referral ID Status Reason Start Date Expiration Date Visits Re quested Visits Authorized [id number] Closed 05/16/2023 05/15/2024 1 1 ADMINISTRATOR Reason for Visit * Reason Comments Head Injury Knee Injury * Appointment Request (Routine) - Closed Specialty Diagnoses / Procedures Referred By Treva field Referred To Contact Family Medicine Referral ID Status Reason Start Date Expiration Date Visits Re quested Visits Authorized [id number] Closed 05/16/2023 05/15/2024 1 1 Encounter Details Date Type Department Care Team (Late st Contact Info) Description 05/16/2023 3:00 PM DATA ADMINISTRATOR Office Visit Department of Family Medicine, [facility], in [facility], [place] [address] [place] [address] Zoe Hope M.D., M.S. [address] [place] [phone] Injury Head Initial (Primary Dx); History Of [...] Answer Date Recorded PHQ-2 Score 0 06/26/2021 [facility] of Occupat ional Health - Occupational Stress [...] Comments Blood Pressure 150/89 05/16/2023 2:41 PM DATA ADMINISTRATOR Pulse 111 05/16/2023 2:41 PM DATA ADMINISTRATOR Temperature 37.5 ??C (99.5 ??F) 05/16/2023 2:41 PM CS T Respiratory Rate - - Oxygen Saturation - - Inhaled Oxygen Concentration - - Weight 56.7 kg (125 lb) 05/16/2023 2:41 PM DATA ADMINISTRATOR Height - - Body Mass Index 22.07 05/26/2022 9:30 AM DATA ADMINISTRATOR documented in this encounter Patient Instructions * Patient Instructions* Zoe Hope M.D., M.S. - 05/16/2023 3:00 PM DATA ADMINISTRATOR -recommend considering TTE or holter to rule out ardiac etiology given syncopal episode. ADMINISTRATOR documented in this encounter Progress Notes * [...] has an appointment with her PCP at [place] tomorrow, recommendations were printed out for patient). [...] of the content. Josesito Hope M.D., M.S. ADMINISTRATOR documented in this encounter Plan of Treatment Not on file documented as of this encounter Procedures Procedure Name Priority Date/Time Associated Diagnosis Comments BACTERIAL CULTURE, AEROBIC + SUSC, URINE Routine 05/16/2023 4:06 PM DATA ADMINISTRATOR Injury Head Initial URINALYSIS WITH MICROSCOPIC Routine 05/16/2023 4:06 PM DATA ADMINISTRATOR Injury Head Initial CBC WITH DIFFERENTIAL, B Routine 05/16/2023 4:05 PM DATA ADMINISTRATOR Injury Head Initial PHOSPHORUS (INORGANIC), S Routine 05/16/2023 4:05 PM DATA ADMINISTRATOR Injury Head Initial MAGNESIUM, S Routine 05/16/2023 4:05 PM DATA ADMINISTRATOR Injury Head Initial ECG Routine 05/16/2023 3:50 PM DATA ADMINISTRATOR Injury Head Initial BASIC METABOLIC PANEL, S/P Routine 05/16/2023 3:35 PM DATA ADMINISTRATOR Injury Head Initial FERRITIN, S Routine 05/16/2023 1:35 PM DATA ADMINISTRATOR Injury Head Initial documented in this encounter Results * CT Head without IV Contrast (05/16/2023 4:29 PM DATA ADMINISTRATOR) Anatomical Region Laterality Modality Head, Neuroradiology RST LOS , Neuroradiology ARZ LOS, Neuroradiology FLA LOS N/A Computed Tomography 05/16/2023 4:26 PM DATA ADMINISTRATOR Impressions 05/16/2023 4:55 PM DATA ADMINISTRATOR Cerebral atrophy and small vessel ischemic disease. Otherwise normal CT of the head without contrast. Narrative 05/16/2023 4:55 PM DATA ADMINISTRATOR EXAM: CT HEAD WITHOUT IV CONTRAST COMPARISON: [...] Aerobic + Susceptibility, Urine (05/16/2023 4:06 PM DATA ADMINISTRATOR) Pathologist [facility] Urine Culture No growth after 1 day of incubation. 05/18/2023 8:29 AM DATA ADMINISTRATOR [facility] Urine (Urine, Midstream) 05/16/2023 4:06 PM DATA ADMINISTRATOR 05/17/2023 1:48 PM DATA ADMINISTRATOR Comment:Specimen Source Site : Urine Zoe Hope M.D., M.S. LAB MICROBIOLOGY - GENERAL ORDERABLES [facility] [address] [place] [address], [facility] in [place] [address] [place] [address] * Urinalysis with Microscopic: Urine, Midstream (05/16/2023 4:06 PM DATA ADMINISTRATOR) Source Urine, Urine, Midstream 05/16/2023 4:45 PM DATA ADMINISTRATOR OWAT Clarity Clear Clear 05/16/2023 4:47 PM DATA ADMINISTRATOR OWAT Color Yellow 05/16/2023 4:45 PM DATA ADMINISTRATOR OWAT Comment: ----REFERENCE VALUE---- Colorless Yellow Ny Blood Negative Negative 05/16/2023 4:45 PM DATA ADMINISTRATOR OWAT Nitrite Negative Negative 05/16/2023 4:45 PM DATA ADMINISTRATOR OWAT Leukocyte Esterase Negative Negative 05/16/2023 4:45 PM DATA ADMINISTRATOR OWAT Protein Negative mg/dL 05/16/2023 4:45 PM DATA ADMINISTRATOR OWAT Comment: ----REFERENCE VALUE---- Negative Trace Glucose Negative Negative mg/dL 05/16/2023 4:45 PM DATA ADMINISTRATOR OWAT Ketone Negative Negative mg/dL 05/16/2023 4:45 PM DATA ADMINISTRATOR OWAT Bilirubin Negative Negative 05/16/2023 4:45 PM DATA ADMINISTRATOR OWAT pH 5.5 5.0 - 8.0 05/16/2023 4:45 PM DATA ADMINISTRATOR OWAT Specific Lejunior 1.005 1.001 - 1.035 05/16/2023 4:45 PM DATA ADMINISTRATOR OWAT Urobilinogen 0.2 0.2 - 1.0 mg/dL 05/16/2023 4:45 PM DATA ADMINISTRATOR OWAT White Blood Cells None Seen /hpf 05/16/2023 4:47 PM DATA ADMINISTRATOR OWAT Comment: ----REFERENCE VALUE---- Males: 0-3 Females: 0-10 Unknown: 0-10 Red Blood Cells None Seen 0 - 2 /hpf 4:47 PM DATA ADMINISTRATOR OWAT Hyaline Casts 1-3 /lpf 05/16/2023 4:47 PM DATA ADMINISTRATOR OWAT Urine (Urine, Midstream) 05/16/2023 4:06 PM DATA ADMINISTRATOR 05/16/2023 4:41 PM DATA ADMINISTRATOR Zoe Hope M.D., M.S. LAB URINE ORDERABLE S [facility] [address] [address], [facility] OWAT [facility] in [place] [address] [place] [address] * Phosphorus Inorganic (05/16/2023 4:05 PM DATA ADMINISTRATOR) Phosphorus (Inorganic), P 3.7 2.5 - 4.5 mg/dL 05/17/2023 3:17 PM DATA ADMINISTRATOR AUST Blood (Blood, Venous) 05/16/2023 4:05 PM DATA ADMINISTRATOR 05/17/2023 3:02 PM DATA ADMINISTRATOR Zoe Hope M.D., M.S. LAB BLOOD ADD-ON Performing Organization Address City/[facility]/ZIP Co de Phone Number [facility] [address] [place] [address], [place] AUST [facility] - [facility] [address] [place] [address] * Magnesium (05/16/2023 4:05 PM DATA ADMINISTRATOR) Magnesium, P 2.3 1.7 - 2.3 mg/dL 05/16/2023 4:17 PM DATA ADMINISTRATOR OWAT Blood (Blood, Venous) 05/16/2023 4:05 PM DATA ADMINISTRATOR 05/16/2023 4:05 PM DATA ADMINISTRATOR Zoe Hope M.D. MEldaS. LAB BLOOD ADD-ON Performing Organization Address City/[facility] Co de Phone Number [facility] [address] [place] [address], [facility] OWAT [facility] in [place] [address] [place] [address] * (ABNORMAL) CBC with Differential, Blood (05/16/2023 4:05 PM DATA ADMINISTRATOR) Pathologist [facility] Hemoglobin 13.3 11.6 - 15.0 g/dL 05/16/2023 4:09 PM DATA ADMINISTRATOR OWAT Hematocrit 39.5 35.5 - 44.9 % 05/16/2023 4:09 PM DATA ADMINISTRATOR OWAT Erythrocytes 4.28 3.92 - 5.13 x10(12)/L 05/16/2023 4:09 PM DATA ADMINISTRATOR OWAT MCV 92.3 78.2 - 97.9 fL 05/16/2023 4:09 PM DATA ADMINISTRATOR OWAT RBC Distrib Width 12.2 12.2 - 16.1 % 05/16/2023 4:09 PM DATA ADMINISTRATOR OWAT Platelet Count 433(H) 157 - 371 x10(9)/L 05/16/2023 4:09 PM DATA ADMINISTRATOR OWAT Leukocytes 10.2(H) 3.4 - 9.6 x10(9)/L 05/16/2023 4:09 PM DATA ADMINISTRATOR OWAT Neutrophils 6.87(H) 1.56 - 6.45 x10(9)/L 05/16/2023 4:09 PM DATA ADMINISTRATOR OWAT Lymphocytes 2.46 0.95 - 3.07 x10(9)/L 05/16/2023 4:09 PM DATA ADMINISTRATOR OWAT Monocytes 0.70 0.26 - 0.81 x10(9)/L 05/16/2023 4:09 PM DATA ADMINISTRATOR OWAT Eosinophils 0.07 0.03 - 0.48 x10(9)/L 05/16/2023 4:09 PM DATA ADMINISTRATOR OWAT Basophils 0.05 0.01 - 0.08 x10(9)/L 05/16/2023 4:09 PM DATA ADMINISTRATOR OWAT Blood (Blood, Venous) 05/16/2023 4:05 PM DATA ADMINISTRATOR 05/16/2023 4:05 PM DATA ADMINISTRATOR Zoe Hope M.D., M.S. LAB BLOOD ADD-ON [facility] [address] [place] [address], [facility] OWAT [facility] in [place] [address] [place] [address] * ECG 12 Lead (05/16/2023 3:50 PM DATA ADMINISTRATOR) Ventricular Rate ECG/Min 92 BPM MUSE ME Interval 148 ms MUSE QRSD Interval 80 ms MUSE QT Interval 356 ms MUSE QTC Interval 440 ms MUSE P [place] 70 degrees MUSE R [place] 55 degrees MUSE T Wave [place] 36 degrees MUSE 05/16/2023 3:50 PM DATA ADMINISTRATOR 05/16/2023 4:23 PM DATA ADMINISTRATOR Impressions MUSE - 05/16/2023 4:23 PM DATA ADMINISTRATOR Normal sinus rhythm Normal ECG When compared [...] (ABNORMAL) Basic Metabolic Panel (05/16/2023 3:35 PM DATA ADMINISTRATOR) Potassium, P 4.3 3.6 - 5.2 mmol/L 05/16/2023 4:40 PM DATA ADMINISTRATOR OWAT Sodium, P 134(L) 135 - 145 mmol/L 05/16/2023 4:40 PM DATA ADMINISTRATOR OWAT Chloride, P 97(L) 98 - 107 mmol/L 05/16/2023 4:40 PM DATA ADMINISTRATOR OWAT Bicarbonate, P 24 22 - 29 mmol/L 05/16/2023 4:40 PM DATA ADMINISTRATOR OWAT Anion Gap, P 13 7 - 15 05/16/2023 4:40 PM DATA ADMINISTRATOR OWAT BUN (Blood Urea Nitrogen), P 16 6 - 21 mg/dL 05/16/2023 4:40 PM DATA ADMINISTRATOR OWAT Creatinine 0.81 0.59 - 1.04 mg/dL 05/16/2023 4:40 PM DATA ADMINISTRATOR OWAT Estimated GFR (eGFR) 75 >=60 mL/min/BSA 05/16/2023 4:40 PM DATA ADMINISTRATOR OWAT Comment: Estimated GFR calculated using the 2020 CKD_EPI creatinine equation. Calcium, Total, P 9.8 8.8 - 10.2 mg/dL 05/16/2023 4:40 PM DATA ADMINISTRATOR OWAT Glucose, P 102 70 - 140 mg/dL 05/16/2023 4:40 PM DATA ADMINISTRATOR OWAT Blood (Blood, Venous) 05/16/2023 3:35 PM DATA ADMINISTRATOR 05/16/2023 4:22 PM DATA ADMINISTRATOR Zoe Hope M.D., M.S. LAB BLOOD ADD-ON [facility] [address] [place] [address], [place] OWAT [facility] in [place] [address] [place] [address] * Ferritin (05/16/2023 1:35 PM DATA ADMINISTRATOR) Ferritin, S 192 11 - 328 mcg/L 05/17/2023 9:14 AM DATA ADMINISTRATOR OWAT Comment: Biotin has been identified by the dairy products maker as a potential interfering substance. Higher concentrations of biotin may be found in multivitamins, hair/nail supplements, and workout supplements. If the result does not match clinical observations, repeat testing after patient refrains from the use of supplements for at least 12 hours. Blood (Blood, Venous) 05/16/2023 1:35 PM DATA ADMINISTRATOR 05/16/2023 4:07 PM DATA ADMINISTRATOR Zoe Hope M.D., M.S. LAB BLOOD ADD-ON [facility] [address] [address], [facility] OWAT [facility] in [place] [address] [address] documented in this encounter Visit Diagnoses Diagnosis Injury Head Initial- Primary History Of Falling Injury Head Initial documented in this encounter Additional Health Concerns Assessment Noted Time PHQ-9 Depression Total Score: 1 06/02/19 18 9:34 AM DATA ADMINISTRATOR documented as of this encounter Care Teams Program Production Specialist Relationship Specialty Start Date End Date Tigre Preciado P.A.-C., P.A. PCP - General Family Medicine 10/11/19 documented as of this encounter
--- OUTSIDE RECORDS SUMMARY | 2023-07-26 07:12 | XMS_ITS | Encounter Summary ---
Author Name Unknown Organization [facility] Address [address] [place] [address] Care Team Providers Care Highway Truck Driver Name Role Phone Tigre Preciado P.A.-C., P.A. Primary Care Pr ovider Reason for Visit * Reason Onset Date Comments Reclast 07/22/2023 Encounter Details Date Type Department Care Team (Latest Contact Info) Description 07/22/2023 Clinical Communication Division of Endocrinology in [place], [place] [address] [place] [address] Duncan Mcgraw M.D. [address] [place] [phone] Reclast Social History Tobacco Use Types Packs/Day Years [...] Answer Date Recorded PHQ-2 Score 0 06/26/2021 [facility] [place] of Occupat ional Health - Occupational Stress [...] Total Score: 1 06/02/19 18 9:34 AM PROMOTIONAL DEMONSTRATOR documented as of this encounter Care Teams Highway Truck Driver Relationship Specialty Start Date End Date Tigre Preciado P.A.-C., P.A. PCP - General Family Medicine 10/11/19 documented as of this encounter
--- OUTSIDE RECORDS SUMMARY | 2023-07-26 07:12 | XMS_ITS | Encounter Summary ---
Author Name Unknown Organization [facility] Address [address] [place] [address] Care Team Providers Care Clerical Supervisor Name Role Phone Tigre Preciado P.A.-C., P.A. Primary Care Pr ovider Reason for Visit * Outpatient (Routine) - Closed Specialty Diagnoses / Procedures Referred By Contac t Referred To Contact Diagnoses Injury Head Initial Procedures DX Knee Left 4+ Views DX Knee Left 3 Views Zoe Hope M.D., M.S. [address] [place] [address] [facility] Region Referral ID Status Reason Start Date Expiration Date Visits Re quested Visits Authorized [id number] Closed 05/16/2023 05/15/2024 1 1 Encounter Details Date Type Department Care Team (Latest Contact Info) Description 05/16/2023 3:57 PM PLATE WASHER - 05/16/2023 11:59 PM PLATE WASHER Hospital Encounter Department of Radiology in [place], [place] [address] [place] [address] Zoe Hope M.D., M.S. [address] [place] [address] Injury Head Initial Discharge Disposition: [...] Answer Date Recorded PHQ-2 Score 0 06/26/2021 [facility] of Occupat ional Health - Occupational [...] MIGRAINE UNRESOLVED. 9 tablet 5 07/31/2022 vitamin A,C,C-aunqbg-jffbtazo (OCUVITE W/LUTEIN) 1,000 Unit-200 mg-60 Unit-2 mg tablet Take 1 tablet by mouth as needed. 0 zoledronic nrrd-akfklcxS-oafst (RECLAST) 5 mg/100 mL piggyback Infuse 5 mg into a venous catheter once. Once yearly- last dose 06/10/22 0 documented as of this encounter Plan of Treatment Not on file documented as of this encounter Procedures Procedure Name Priority Date/Time Associated Diagnosis Comments DX KNEE LEFT 4+ VIEWS RAD - Semiurgent (Fast; most ED patients; some inpatients) 05/16/2023 4:34 PM PLATE WASHER Injury Head Initial documented in this encounter Results * DX Knee Left 4+ Views (05/16/2023 4:34 PM PLATE WASHER) Anatomical Region Laterality Modality Lower Extremity, Knee, Muscu loskeletal RST LOS, Musculoskeletal ARZ LOS, Muskuloskeletal FLA LOS Left Digit al Radiography Impressions 05/16/2023 4:38 PM PLATE WASHER Approximately 14.2 x 3.3 cm region of consolidation along the medial left knee, suggestive of hemorrhage, possibly due to medial collateral ligament damage. Narrative 05/16/2023 4:38 PM PLATE WASHER EXAM: DX KNEE LEFT 4+ VIEWS COMPARISON: [...] Total Score: 1 06/02/19 18 9:34 AM PLATE WASHER documented as of this encounter Care Teams Clerical Supervisor Relationship Specialty Start Date End Date Tigre Preciado P.A.-C., P.A. PCP - General Family Medicine 10/11/19 documented as of this encounter
--- OUTSIDE RECORDS SUMMARY | 2023-07-26 07:12 | XMS_ITS | Encounter Summary ---
Author Name Unknown Organization [facility] Address [address] [place] [address] Care Team Providers Care Genetic Technologist Name Role Phone Tigre Preciado P.A.-C., P.A. Primary Care Pr ovider Encounter Details Date Type Department Care Team (Late st Contact Info) Description 05/16/2023 Clinical Communication Department of Orthopedic Surgery in [place], [place] [address] [place] [phone] Sebastián Esteban M.D. [address] [place] [address] Social History Tobacco Use Types Packs/Day Years [...] PHQ-2 Score 0 06/26/2021 [facility] [place] of Occupat ional Health - Occupational Stress [...] Sebastián Esteban M.D. - 05/16/2023 4:54 PM ROLLER REPAIRER I was called by primary care in [...] primary care provider for further follow up. ER REPAIRER documented in this encounter Plan of Treatment Not on file documented as of this encounter Visit Diagnoses Not on filedocumented in this encounter Additional Health Concerns Assessment Noted Time PHQ-9 Depression Total Score: 1 06/02/19 18 9:34 AM ROLLER REPAIRER documented as of this encounter Care Teams Genetic Technologist Relationship Specialty Start Date End Date Tigre Preciado P.A.-C., P.A. PCP - General Family Medicine 10/11/19 documented as of this encounter
--- OUTSIDE RECORDS SUMMARY | 2023-07-26 07:12 | XMS_ITS ---
Author Name Unknown Organization [facility] Address [address] [place] [address] Care Team Providers Care Communications Attendant Name Role Phone Unavailable Unavailable Unavailable Surgery Details Not on file Complications Check Surgery Details section. Procedure Estimated Blood Loss Check Surgery Details section. Procedure Findings Check Surgery Details section. Procedure Specimens Taken Check Surgery Details section.
--- OUTSIDE RECORDS SUMMARY | 2023-07-26 07:12 | XMS_ITS | Encounter Summary ---
Author Name Unknown Organization [facility] Address [address] [place] [address] Care Team Providers Care Commercial Cleaner Name Role Phone Tigre Preciado P.A.-C., P.A. Primary Care Pr ovider Reason for Referral * Outpatient (Routine) - Authorized Specialty Diagnoses / Procedures Referred By Contac t Referred To Contact Endocrinology Diagnoses Osteoporosis Duncan Mcgraw M.D. [address] [place] [phone] [facility] Referral ID Status Reason Start Date Expiration Date V isits Requested Visits Authorized [id number] Authorized 07/02/2023 12/31/2024 1 1 Scheduling Instructions May see [facility] or any bone MD * Outpatient (Routine) - Authorized Specialty Diagnoses / Procedures Referred By Contac t Referred To Contact Diagnoses Osteoporosis Procedures BMD Bone Density Spine Hips Duncan Mcgraw M.D. 200 [place] [address] [facility] Referral ID Status Reason Start Date Expiration Date V isits Requested Visits Authorized [id number] Authorized 07/02/2023 07/01/2024 1 1 Encounter Details Date Type Department Care Team (Late st Contact Info) Description 07/02/2023 Orders Only Division of Endocrinology in [place], [place] [address] [place] [phone] Duncan Mcgraw M.D. [address] [place] [address] Osteoporosis (Primary Dx) Social History Tobacco Use [...] Answer Date Recorded PHQ-2 Score 0 06/26/2021 [facility] of Occupat ional Health - Occupational [...] Scheduled Orders Name Type Priority Associated Diagnoses Orde r Schedule 25-Hydroxyvitamin D2 and D3 Lab Routine Osteoporosis Expected: 07/03/2024, Expires: 08/21/2024 Beta-CrossLaps (Beta-CTx) Lab Routine Osteoporosis Expected: 07/03/2024, Expires: 08/21/2024 BMD Bone Density Spine Hips Imaging RAD - Routine (most inpatients and all outpatients) Osteoporosis Expected: 07/03/2024, Expires: 08/21/2024 Creatinine with Estimated GFR Lab Routine Osteoporosis Expected: 07/03/2024, Expires: 08/21/2024 Calcium, Total Lab Routine Osteoporosis Expected: 07/03/2024, Expires: 08/21/2024 Scheduled Referrals Name Type Priority Associated Diagnoses Order Schedule Endocrinology office visit (clinic) Outpatient Referral Routine Osteoporosis Expected: 07/03/2024, Expires: 08/21/2024 documented as of this encounter Visit Diagnoses Diagnosis Osteoporosis- Primary documented in this encounter Additional Health Concerns Assessment Noted Time PHQ-9 Depression Total Score: 1 06/02/19 18 9:34 AM ART CONSULTANT documented as of this encounter Care Teams Commercial Cleaner Relationship Specialty Start Date End Date Tigre Preciado P.A.-C., P.A. PCP - General Family Medicine 10/11/19 documented as of this encounter
== END 2023-07-22 15:01 | disposition home or self-care (01) ==
LOC: NFLDREF 07-26 07:09
PROVIDERS: PCP Nurse Practitioner Family; Referring Provider Nurse Practitioner Family; Visit Provider Nurse Practitioner Family
DX: R39.15 Urgency of urination (principal)
CPT/HCPCS: 81001; 87086

== ENCOUNTER 2023-08-26 20:55 | Outpatient (REF) | payer MEDICARE, SELFPAY ==
--- OUTSIDE RECORDS SUMMARY | 2023-08-26 21:00 | XMS_ITS | Clinical Summary ---
Author Name Unknown Organization [facility] Address [place], [place] [address] Care Team Providers Care Electric Motor Assembler And Tester Name Role Phone Kanchan Granda NP Primary Care Provider [phone] Allergies Active Allergy Reactions Criticality Noted Date [...] PRN, Reported on 01/16/2020 vit A,C and F-waiwyg-zbhhkawv (OCUVITE WITH LUTEIN) 1,000 unit-200 mg-60 unit-2 [...] will continue to work with her current cable way operator. We also discussed management options with vaginal estrogen therapy, pessary, or surgical intervention. She is not interested in these options at this time. I recommend she follow up as needed in the future. Osteoporosis 07/20/2017 Personal history of colonic polyps 11/10/2012 Reactive airway disease 07/12/2009 Headache(784.0) 01/09/2009 Encounters Date Type Department Care Team Description 06/04/2023 Orders Only [facility] [address] [place] [address] Annelise Busch 1 scan: (1-Ord) Holter Report ([id number]) 06/02/2023 10:14 AM HEALTH CONSULTANT - 06/02/2023 11:59 PM HEALTH CONSULTANT Hospital Encounter [facility] [address] [place] [address] Kanchan Granda NP 06/02/2023 10:00 AM HEALTH CONSULTANT Ancillary Procedure [facility] [place] [facility] [address] [place] [address] 06/02/2023 Travel from Last 3 Months Immunizations Name Administration Dates Next Due COVID-19 vaccine ([employer] 30mcg/0.3mL) P F, MDV 02/24/2021 Influenza, IIV3 [...] 159 cm (5' 2.6) 02/29/2020 12:48 PM HEALTH CONSULTANT Body Mass Index 22.61 02/29/2020 12:48 PM HEALTH CONSULTANT Plan of Treatment Health Maintenance Due Date [...] MONITOR 48 HOURS Routine 06/10/2023 12:00 AM HEALTH CONSULTANT Syncope ECHO TTE COMPLETE WO CONTRAST Routine 06/02/2023 10:56 AM HEALTH CONSULTANT Syncope and collapse from Last 3 Months Results * HOLTER MONITOR 48 HOURS (06/10/2023 12:00 AM HEALTH CONSULTANT) Kanchan Granda NP CARDIAC SERVICES O RD * ECHO TTE COMPLETE WO CONTRAST (06/02/2023 10:56 AM HEALTH CONSULTANT) AORTIC VALVE MEAN PG 5 mmHg EJECTION FRACTION 69 % LVEDD 4.0 cm Anatomical Region Laterality Modality Ultrasound 06/02/2023 10:1 4 AM HEALTH CONSULTANT Narrative 06/02/2023 11:10 AM HEALTH CONSULTANT ECHOCARDIOGRAM ISADORA BACK ? Accession#: ?? [id number] : ?1945 78 years Study Date: ?? 06/02/2023 10:14:46 AM Gender: F ?BP: ? 110/64 mmHg Height: 157.00 cm ?BSA: ?1.57 m? ? ? Weight: 57.00 kg ? Tech: ? MSR ? Referring MD: KANCHAN GRANDA Site: ? [facility] [place] [facility] Reading Location: Mobile OP Patient Location: Outpatient. [...] . This study was interpreted by an [facility] accredited facility. CC: HIM (med records) [facility] [place] [facility]. ??Final ?? Procedure Note Diann Barroso, [facility] - 06/02/2023 ECHOCARDIOGRAM ISADORA BACK : 1945 78 years Study Date: 06/02/2023 10:14:46 AM Gender: F BP: 110/64 mmHg Height: 157.00 cm BSA: 1.57 m? ? ? Weight: 57.00 kg Tech: PALLAVI Referring MD: KANCHAN GRANDA Site: [facility] [place] [facility] Reading Location: Mobile [...] interpreted by an [facility] accredited facility. CC: MAIA (med [facility]) [facility] [place] [facility]. Final Kanchan Granda RAIL SPECIALIST ECHO ORD from Last 3 Months Advance Directives * Full Code (Latest Code Status on File) Date Activated Date Inactivated Comments 03/13/2020 7:36 AM 03/13/2020 1:19 PM Question Answer Comments Code Status Discussion: Not Discussed Care Teams Electric Motor Assembler And Tester Relationship Specialty Start Date End Date Kanchan Granda NP [address] [facility] [place] [address] PCP - General Emergency Medicine 06/02/23
--- OUTSIDE RECORDS SUMMARY | 2023-08-26 21:00 | XMS_ITS | Clinical Summary ---
Author Name Unknown Organization [facility] Address [address] [place] [address] Care Team Providers Care Vault Custodian Name Role Phone Tigre Preciado P.A.-C., P.A. Primary Care Pr ovider Source Comments Patient records contain information from all sites at [facility]. For routine questions regarding patient records, call [phone] during business hours, M-F 8:00 AM - 5:00 PM Central Time. Record requests for emergency care only can be directed to [phone] at any time.[facility] Allergies Active Allergy Reactions Criticality Noted [...] 3 (three) times a day as needed. 08/13/2016 Active LACTOBACILLUS ACIDOPHILUS (ACIDOPHILUS ORAL) Take by mouth daily. 10/05/2012 Active calcium carbonate-vitamin D3 1,250 mg (500 mg calcium)-400 unit per chewable tablet Chew 1 tablet. 11/07/2009 Active multivitamin tablet Take 1 tablet by mouth daily. 06/28/2009 Active magnesium 200 mg tablet Take 400 mg by mouth daily. Active vitamin A,C,B-bgxvua-ztxfx als (OCUVITE W/LUTEIN) 1,000 Unit-200 mg-60 Unit-2 mg tablet Take 1 tablet by mouth as needed. Active dicyclomine (BENTYL) 10 mg capsule Take 1 capsule (10 mg total) by mouth 4 (four) times a day as needed (abdominal pain or cramps). 180 capsule 3 10/31/2020 Active nystatin (MYCOSTATIN) 100,000 unit/mL suspension Take 5 mL (500,000 Units total) by mouth 4 (four) times a day. Swish in mouth and swallow 280 mL 07/02/2021 Active Additional Information Patient taking differently:500,000 Units oralAs needed, Swish in mouth and swallow, Reported on 07/23/2022 albuterol 90 mcg/actuation inhaler Inhale 2 puffs every 4 (four) hours as needed for wheezing. 8 g 3 07/02/2021 Active zoledronic oacp-mlgauljM-dokj r (RECLAST) 5 mg/100 mL piggyback Infuse 5 mg into a venous catheter once. Once yearly- last dose 06/10/22 Active SUMAtriptan (IMITREX) 25 mg tablet TAKE 1 TABLET BY MOUTH NEEDED FOR MIGRAINE. MAY REPEAT DOSE ONCE IN 2 HOURS IF MIGRAINE UNRESOLVED. 9 tablet 5 07/31/2022 Active azithromycin (ZITHROMAX) 250 mg tablet Take 1 tablet by mouth as directed. BRONCHITIS 08/11/2022 Active montelukast (SINGULAIR) 10 mg tablet [...] by mouth 2 (two) times a day. 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 We also discussed management options with vaginal [...] Encounters Date Type Department Care Team Description 08/24/2023 Orders Only [facility] Tigre Preciado, Anil.Chery., P.A. 07/22/2023 Orders Only Division of Endocrinology in [place], [place] [address] [place] [address] Duncan Mgcraw M.D. 07/22/2023 Clinical Communication Division of Endocrinology in [place], [place] [address] [place] [address] Duncan Mcgraw M.D. Reclast 07/02/2023 Orders Only Division of Endocrinology in [place], [place] [address] [place] [address] Dunacn Mcgraw M.D. Osteoporosis (Primary Dx) from Last 3 Months Immunizations Name Administration [...] Score 0 06/26/2021 [facility] of Occupat ional Health - [...] Comments Blood Pressure 150/89 05/16/2023 2:41 PM CORPORATE QUALITY ENGINEER Pulse 111 05/16/2023 2:41 PM CORPORATE QUALITY ENGINEER Temperature 37.5 ??C (99.5 ??F) 05/16/2023 2:41 PM CS T Respiratory Rate 16 08/15/2022 12:16 PM CDT Oxygen Saturation 99% 08/15/2022 12:16 PM CDT Inhaled Oxygen Concentration - - Weight 56.7 kg (125 lb) 05/16/2023 2:41 PM CORPORATE QUALITY ENGINEER Height 160.3 cm (5' 3.11) 05/26/2022 9:30 AM CS T Body Mass Index 22.07 05/26/2022 9:30 AM CORPORATE QUALITY ENGINEER Plan of Treatment Upcoming Encounters Date Type Department Care Team (Late st Contact Info) Description 09/02/2023 10:15 AM CDT Infusion Department of Infusion Therapy in [place], [place] [address] [place] [address] Duncan Mcgraw M.D. [address] [place] [address] Health Maintenance Due Date Last Done Comments Visit: Medicare Annual Wellness 1945 Zoster Vaccines (1 of 2) 1997 Depression Screening (Annual PHQ-2) 04/19/2023 Fall Risk Screen (Annual) 04/19/2023 COVID-19 Vaccine (2022-2 4 season) 2023 03/29/2023, 04/03/2022, 10/17/2021, Additional history exists Bone Density Scan Monitoring 02/24/202410/2021 (Performed elsewhere), [...] Completed 01/21/2023, , 02/03/2021, Additional history exists CT Colonography Discontinued Cologuard Discontinued Procedures Procedure Name Priority Date/Time Associated Diagnosis Comments OUTSIDE MG MAMMOGRAM Routine 04/01/2022 2:35 PM CORPORATE QUALITY ENGINEER BMD BONE DENSITY SPINE HIPS RAD - Routine (most inpatients and all outpatients) 07/01/2017 1:41 PM CDT Screening Osteoporosis HCV AB SCRN W/REFLEX TO HCV PCR, S Routine 06/01/2016 10:10 AM CORPORATE QUALITY ENGINEER from Last 3 Months or Most Recently Relevant to Health Maintenance Results * MM screening mammo BI-Outside Mammogram (04/01/2022 2:35 PM CORPORATE QUALITY ENGINEER) Narrative IIMS - 07/03/2022 2:31 PM CDT This order has been created and auto-finalized to support the import of outside images. If available, original interpretation can be found on the Media Tab in Chart Review, in Document Viewer, or as an image in QREADS. If a re-interpretation or overread is required please follow defined workflow. ?? Provider Not In System IMG BI PROCEDURES IIMS NA * BMD Bone Density Spine Hips (07/01/2017 1:41 PM CDT) Anatomical Region Laterality Modality Hip, Lumbar Spine N/A Radiographic I maging 07/01/2017 2:57 PM CDT Impressions 07/01/2017 2:59 PM CDT Impression: Osteoporosis. Narrative 07/01/2017 2:59 PM CDT EXAM: BMD BONE DENSITY SPINE HIPS COMPARISON: 2012, 2007, 2005 Balance Wheel Screw Hole Driller/Model: Kasenna FINDINGS: ?? LUMBAR SPINE L1-L4 included unless otherwise indicated. Lumbar BMD: 0.951 gm/cm2 T-score: -2.0 BMD [...] 2005. FRAX 10 year probability of major osteoporotic fracture 24.2 % FRAX 10 year probability of hip fracture ??7.2 % FRAX scores: Not clinically validated for patients with history of therapy with bisphosphonates in the past two years, calcitonin in the last year, PTH in the last year, Denosumab in the last year. ??Calcium and vitamin D do NOT constitute treatment' in this context. ??All treatment decisions require clinical judgement and consideration of [...] Postmenopausal women or men age 50 and older with low bone mass (T-score -1 to -2.5, osteopenia) at the femoral neck, total hip, or spine and 10 year hip fracture probability >3% or a 10 year all major osteoporosis related fracture probability of >20% based on the [place] adapted WHO absolute risk model. Exclude secondary causes of low bone density in the appropriate clinical setting. Follow-up exams should be performed at no sooner than two-year intervals. Direct comparison can only be performed on exams performed at the same facility. World Health Organization T-score criteria: 0 to -1.0 ?? Normal range < -1.0 to > -2.5 ?? Low bone density (osteopenia) -2.5 or less ?? Osteoporosis Procedure Note Patric Uriarte M.D. - 07/01/2017 EXAM: BMD BONE DENSITY SPINE HIPS COMPARISON: 2012, 2007, 2005 Balance Wheel Screw Hole Driller/Model: Kasenna FINDINGS: LUMBAR SPINE L1-L4 included unless otherwise indicated. Lumbar BMD: 0.951 gm/cm2 T-score: -2.0 BMD % change: -3.2% Significance: Statistically significant BMD decrease from the comparisonexam. HIP(S) Lowest femoral BMD: 0.66 gm/cm 2 Lowest T-score: -2.7 BMD % change: -5.7% Significance: Statistically significant BMD decrease from the comparisonexam. Continued and significant trend in bone mineral loss is identifiedthroughout all exams dating to 2005. FRAX 10 year probability of major osteoporotic fracture 24.2 % FRAX 10 year probability of hip fracture 7.2 % FRAX scores: Not clinically validated for patients with history of therapywith bisphosphonates in the past two years, calcitonin in the last year, PTH inthe last year, Denosumab in the last year. Calcium and vitamin D do NOTconstitute treatment' in this context. All treatment decisions require clinicaljudgement and consideration of individual patient factors which may not be capturedin the FRAX model and the risk of fracture may be over- or under-estimated byFRAX. Treatment recommended for: Patients with hip or vertebral fracture (clinical or morphometric). Patients with osteoporosis at the spine and/or hip as defined by T-score<= -2.5. Postmenopausal women or men age 50 and older with low bone mass (T-score-1 to -2.5, osteopenia) at the femoral neck, total hip, or spine and 10 yearhip fracture probability >3% or a 10 year all major osteoporosis relatedfracture probability of >20% based on the [place] adapted WHO absolute risk model. Exclude secondary causes of low bone density in the appropriate clinical setting. Follow-up exams should be performed at no sooner than two-yearintervals. Direct comparison can only be performed on exams performed at the samefacility. World Health Organization T-score criteria: 0 to -1.0 Normal range < -1.0 to > -2.5 Low bone density (osteopenia) -2.5 or less Osteoporosis Impression: Osteoporosis. Luisa Roy M.D. IMG DXA PROCEDURES * HCV Ab w/Reflex to HCV PCR, S (medicare) (06/01/2016 10:10 AM CORPORATE QUALITY ENGINEER) HXHCV Ab [facility] Negative Negative POWERCHART Comment: Nqwztt-ts-ysnbkz ratio is <1.00. Test Performed by: [facility] [address] Cleaning Associate: Giacomo Gatica II, M.D., Ph.D. Blood 06/01/2016 10:1 0 AM CORPORATE QUALITY ENGINEER Luisa Roy M.D. LAB MICR OBIOLOGY - BLOOD ORDERABLES POWERCHART from Last 3 Months or Most Recently Relevant to Health Maintenance Care Teams Vault Custodian Relationship Specialty Start Date End Date Tigre Preciado P.A.-C., P.A. PCP - General Family Medicine 10/11/19
--- OUTSIDE RECORDS SUMMARY | 2023-08-26 21:00 | XMS_ITS | Encounter Summary ---
Author Name Unknown Organization [facility] [place] [facility] Address [address] [place] [address] Care Team Providers Care Inside Sales Supervisor Name Role Phone Tigre Preciado P.A.-C., P.A. Primary Care Pr ovider Reason for Visit * Reason Onset Date Comments Reclast 07/22/2023 Encounter Details Date Type Department Care Team (Latest Contact Info) Description 07/22/2023 Clinical Communication Division of Endocrinology in [place], [place] [address] [place] [address] Duncan Mcgraw M.D. [address] [place] [phone] Reclast Social History Tobacco Use Types Packs/Day [...] Answer Date Recorded PHQ-2 Score 0 06/26/2021 [facility] of Occupat ional Health - Occupational Stress [...] as of this encounter Plan of Treatment Upcoming Encounters Date Type Department Care Team (Late st Contact Info) Description 09/02/2023 10:15 AM CDT Infusion Department of Infusion Therapy in [place], [place] [address] [place] [address] Duncan Mcgraw M.D. [address] [place] [address] documented as of this encounter Visit Diagnoses Diagnosis Osteoporosis- Primary documented in this encounter Additional Health Concerns Assessment Noted Time PHQ-9 Depression Total Score: 1 06/02/19 18 9:34 AM BUSINESS SERVICES ASSISTANT documented as of this encounter Care Teams Inside Sales Supervisor Relationship Specialty Start Date End Date Tigre Preciado P.A.-C., P.A. PCP - General Family Medicine 10/11/19 documented as of this encounter
--- OUTSIDE RECORDS SUMMARY | 2023-08-26 21:00 | XMS_ITS | Encounter Summary ---
Author Name Unknown Organization [facility] Address [address] [place] [address] Care Team Providers Care Hot Mill Tin Roller Name Role Phone Tigre Preciado P.A.-C., P.A. Primary Care Pr ovider Reason for Referral * Outpatient (Routine) - Authorized Specialty Diagnoses / Procedures Referred By Contac t Referred To Contact Tigre Preciado P.A.-C., P.A. [address] [place] [address] [facility] Region Referral ID Status Reason Start Date Expiration Date V isits Requested Visits Authorized [id number] Authorized 08/24/2023 02/22/2025 1 1 Scheduling Instructions Nurse AWV Do not schedule prior to due date to ensure insurance coverage Visit: Medicare Annual Wellness Never done. Encounter Details Date Type Department Care Team (Late st Contact Info) Description 08/24/2023 Orders Only [facility] MNT Tigre Preciado P.A.-C., P.A. [address] [place] [address] Social History Tobacco Use Types [...] PHQ-2 Score 0 06/26/2021 [facility] - Occupational Stress Questionnaire Answer Date [...] CDT Infusion Department of Infusion Therapy in [place], [place] [address] [place] [address] Duncan Mcgraw M.D. [address] [place] [address] Scheduled Referrals Name Type Priority Associated Diagnoses Orde r Schedule Primary Care nurse visit (clinic) - [facility] Region; Medicare Annual Wellness Outpatient Referral Routine Expected: 09/21/2023, Expires: 02/20/2024 documented as of this encounter Visit Diagnoses Not on filedocumented in this encounter Additional Health Concerns Assessment Noted Time PHQ-9 Depression Total Score: 1 06/02/19 18 9:34 AM SUPERVISOR MICROFILM DUPLICATING UNIT documented as of this encounter Care Teams Hot Mill Tin Roller Relationship Specialty Start Date End Date Tigre Preciado P.A.-C., P.A. PCP - General Family Medicine 10/11/19 documented as of this encounter
--- OUTSIDE RECORDS SUMMARY | 2023-08-26 21:00 | XMS_ITS ---
Author Name Unknown Organization [facility] Address [address] [place] [address] Care Team Providers Care Telecommunications Line Mechanic Name Role Phone Unavailable Unavailable Unavailable Surgery Details Not on file Complications Check Surgery Details section. Procedure Estimated Blood Loss Check Surgery Details section. Procedure Findings Check Surgery Details section. Procedure Specimens Taken Check Surgery Details section.
--- OUTSIDE RECORDS SUMMARY | 2023-08-26 21:00 | XMS_ITS | Encounter Summary ---
Author Name Unknown Organization [facility] Address [address] [place] [address] Care Team Providers Care Shellfish Meat Separator Operator Name Role Phone Tigre Preciado P.A.-C., P.A. Primary Care Pr ovider Encounter Details Date Type Department Care Team (Late st Contact Info) Description 05/25/2023 Orders Only [facility] P[facility]NT Tigre Preciado P.A.-C., P.A. [address] [facility] [phone] Social History Tobacco Use Types Packs/Day Years [...] Answer Date Recorded PHQ-2 Score 0 06/26/2021 [facility] of Occupat ional Health - Occupational Stress [...] CDT Infusion Department of Infusion Therapy in [place], [place] [address] [place] [address] Duncan Mcgraw M.D. [address] [place] [address] documented as of this encounter Visit Diagnoses Not on filedocumented in this encounter Additional Health Concerns Assessment Noted Time PHQ-9 Depression Total Score: 1 06/02/19 18 9:34 AM CUSTOMER OPERATIONS ASSOCIATE documented as of this encounter Care Teams Shellfish Meat Separator Operator Relationship Specialty Start Date End Date Tigre Preciado P.A.Chery., P.A. PCP - General Family Medicine 10/11/19 documented as of this encounter
--- OUTSIDE RECORDS SUMMARY | 2023-08-26 21:00 | XMS_ITS | Referral Summary ---
Author Name Unknown Organization [facility] Address [address] [place] [address] Care Team Providers Care Kohinoor Operator Name Role Phone Tigre Preciado P.A.-C., P.A. Primary Care Pr ovider Source Comments Patient records contain information from all sites at [facility]. For routine questions regarding patient records, call [phone] during business hours, M-F 8:00 AM - 5:00 PM Central Time. Record requests for emergency care only can be directed to [phone] at any time.[facility] Encounters Date Type Department Care Team Description 08/24/2023 Orders Only [facility] Tigre Preciado P.A.-C., P.A. 07/22/2023 Orders Only Division of Endocrinology in [place], [place] [address] [place] [address] Duncan Mcgraw M.D. 07/22/2023 Clinical Communication Division of Endocrinology in [place], [place] [address] [place] [address] Duncan Mcgraw M.D. Reclast 07/02/2023 Orders Only Division of Endocrinology in [place], [place] [address] [place] [phone] Duncan Mcgraw M.D. Osteoporosis (Primary Dx) from Last 3 Months Allergies Active Allergy [...] 400 mg by mouth daily. Active vitamin A,C,H-ptehiz-pciit als (OCUVITE W/LUTEIN) 1,000 Unit-200 mg-60 Unit-2 [...] wheezing. 8 g 3 07/02/2021 Active zoledronic zxzy-pzfpfanM-vjje r (RECLAST) 5 mg/100 mL piggyback Infuse [...] will continue to work with her current machine dyer. We also discussed management options with vaginal [...] Answer Date Recorded PHQ-2 Score 0 06/26/2021 [facility] of Occupat ional Health - Occupational Stress [...] Comments Blood Pressure 150/89 05/16/2023 2:41 PM MANUFACTURING LAB TECHNICIAN Pulse 111 05/16/2023 2:41 PM MANUFACTURING LAB TECHNICIAN Temperature 37.5 ??C (99.5 ??F) 05/16/2023 2:41 PM CS T Respiratory Rate 16 08/15/2022 12:16 PM CDT Oxygen Saturation 99% 08/15/2022 12:16 PM CDT Inhaled Oxygen Concentration - - Weight 56.7 kg (125 lb) 05/16/2023 2:41 PM MANUFACTURING LAB TECHNICIAN Height 160.3 cm (5' 3.11) 05/26/2022 9:30 AM CS T Body Mass Index 22.07 05/26/2022 9:30 AM MANUFACTURING LAB TECHNICIAN Plan of Treatment Upcoming Encounters Date Type Department Care Team (Late st Contact Info) Description 09/02/2023 10:15 AM CDT Infusion Department of Infusion Therapy in [place], [place] [address] [place] [phone] Duncan Mcgraw M.D. [address] [place] [address] Procedures Procedure Name Priority Date/Time Associated Diagnosis Comments OUTSIDE MG MAMMOGRAM Routine 04/01/2022 2:35 PM MANUFACTURING LAB TECHNICIAN BMD BONE DENSITY SPINE HIPS RAD - Routine (most inpatients and all outpatients) 07/01/2017 1:41 PM CDT Screening Osteoporosis HCV AB SCRN W/REFLEX TO HCV PCR, S Routine 06/01/2016 10:10 AM MANUFACTURING LAB TECHNICIAN from Last 3 Months or Most Recently Relevant to Health Maintenance Results * MM screening mammo BI-Outside Mammogram (04/01/2022 2:35 PM MANUFACTURING LAB TECHNICIAN) Narrative IIMS - 07/03/2022 2:31 PM CDT [...] DENSITY SPINE HIPS COMPARISON: 2012, 2007, 2005 Communications Tower Climber/Model: Grasshoppers! FINDINGS: ?? LUMBAR SPINE L1-L4 included unless [...] DENSITY SPINE HIPS COMPARISON: 2012, 2007, 2005 Communications Tower Climber/Model: Grasshoppers! FINDINGS: LUMBAR SPINE L1-L4 included unless otherwise [...] less Osteoporosis Impression: Osteoporosis. Luisa Roy M.D. [facility] DXA PROCEDURES * HCV Ab w/Reflex to HCV PCR, S (medicare) (06/01/2016 10:10 AM MANUFACTURING LAB TECHNICIAN) HXHCV Ab [facility] Negative Negative POWERCHART Comment: Xcenua-me-dzgfou ratio is <1.00. Test Performed by: [facility] - [address] [address] Diving Coach: Giacomo Gatica II, M.D., Ph.D. Blood 06/01/2016 10:1 0 AM MANUFACTURING LAB TECHNICIAN Luisa Roy M.D. LAB MICR OBIOLOGY - BLOOD ORDERABLES POWERCHART from Last 3 Months or Most Recently Relevant to Health Maintenance Care Teams Kohinoor Operator Relationship Specialty Start Date End Date Tigre Preciado P.A.-C., P.A. PCP - General Family Medicine 10/11/19
--- OUTSIDE RECORDS SUMMARY | 2023-08-26 21:00 | XMS_ITS | Encounter Summary ---
Author Name Unknown Organization [facility] Address [address] [place] [address] Care Team Providers Care Market Development Analyst Name Role Phone Tigre Preciado P.A.-C., P.A. Primary Care Pr ovider Reason for Referral * Outpatient (Routine) - Authorized Specialty Diagnoses / Procedures Referred By Contac t Referred To Contact Endocrinology Diagnoses Osteoporosis Duncan Mcgraw M.D. [address] [place] [phone] [facility] Referral ID Status Reason Start Date Expiration Date V isits Requested Visits Authorized [id number] Authorized 07/02/2023 12/31/2024 1 1 Scheduling Instructions May see [facility] or any bone MD * Outpatient (Routine) - Authorized Specialty Diagnoses / Procedures Referred By Contac t Referred To Contact Diagnoses Osteoporosis Procedures BMD Bone Density Spine Hips Duncan Mcgraw M.D. [address] [place] [address] [facility] Referral ID Status Reason Start Date Expiration Date V isits Requested Visits Authorized [id number] Authorized 07/02/2023 07/01/2024 1 1 Encounter Details Date Type Department Care Team (Late st Contact Info) Description 07/02/2023 Orders Only Division of Endocrinology in [place], [place] [address] [place] [phone] Duncan Mcgraw M.D. [address] [place] [address] Osteoporosis (Primary Dx) Social History Tobacco Use [...] Answer Date Recorded PHQ-2 Score 0 06/26/2021 [facility] of Occupat ional Health - Occupational [...] CDT Infusion Department of Infusion Therapy in [place], [place] [address] [place] [address] Duncan Mcgraw M.D. [address] [place] [phone] Scheduled Orders Name Type Priority Associated Diagnoses [...] Total Score: 1 06/02/19 18 9:34 AM ARRANGING FUNERAL DIRECTOR documented as of this encounter Care Teams Market Development Analyst Relationship Specialty Start Date End Date Tigre Preciado P.A.-C., P.A. PCP - General Family Medicine 10/11/19 documented as of this encounter
--- OUTSIDE RECORDS SUMMARY | 2023-08-26 21:00 | XMS_ITS | Encounter Summary ---
Author Name Unknown Organization [facility] Address [address] [place] [address] Care Team Providers Care Time Study Technician Name Role Phone Tigre Preciado P.A.-C., P.A. Primary Care Pr ovider Encounter Details Date Type Department Care Team (Late st Contact Info) Description 07/22/2023 Orders Only Division of Endocrinology in [place], [place] [address] [place] [phone] Duncan Mcgraw M.D. [address] [place] [address] Social History Tobacco Use Types Packs/Day Years [...] Answer Date Recorded PHQ-2 Score 0 06/26/2021 [facility] [place] of Occupat ional Health - Occupational Stress [...] CDT Infusion Department of Infusion Therapy in [place], [place] [address] [place] [address] Duncan Mcgraw M.D. [address] [place] [address] documented as of this encounter Visit Diagnoses Not on filedocumented in this encounter Additional Health Concerns Assessment Noted Time PHQ-9 Depression Total Score: 1 06/02/19 18 9:34 AM STEM SETTER documented as of this encounter Care Teams Time Study Technician Relationship Specialty Start Date End Date Tigre Preciado P.A.-C., P.A. PCP - General Family Medicine 10/11/19 documented as of this encounter
[2023-08-26 22:12] LABS: Creatinine* 0.9 mg/dL (0.5-1.5); Estimated Glomerular Filt Rate 66 ml/min
[2023-08-26 22:13] LABS: Calcium* 9.4 mg/dL (8.4-10.6)
== END 2023-08-26 20:56 | disposition home or self-care (01) ==
LOC: NPINS 20:55
PROVIDERS: PCP Nurse Practitioner Family
DX: M81.0 Age-related osteoporosis without current pathological fracture (principal)
CPT/HCPCS: 82310; 82565

== ENCOUNTER 2023-10-04 16:11 | Outpatient (CLI) | payer MEDICARE, SELFPAY ==
--- OUTSIDE RECORDS SUMMARY | 2023-10-04 16:17 | XMS_ITS | Encounter Summary ---
Author Organization [facility] Address [address] [place] [address] Care Team Providers Care Systems Eng Name Role Phone Tigre Preciado P.A.-C., P.A. Primary Care Pr ovider Reason for Visit * Episode Based Medications (Routine) - Closed Specialty Diagnoses / Procedures Referred By Contac t Referred To Contact Diagnoses Osteoporosis Procedures TX ZOLEDRONIC ACID 1MG zoledronic acid (RECLAST) Duncan Mcgraw M.D. [address] [place] [phone] [address] [place] [address] [place] [phone] Referral ID Status Reason Start Date Expiration Date Visits Re quested Visits Authorized [id number] Closed 07/02/2023 04/18/2024 1 1 Encounter Details Date Type Department Care Team (Late st Contact Info) Description 09/02/2023 10:15 AM CDT Infusion Department of Infusion Therapy in [place], [place] [address] [place] [phone] Duncan Mcgraw M.D. [address] [place] [phone] Osteoporosis (Primary Dx) Social History Tobacco Use [...] PHQ-2 Score 0 06/26/2021 [facility] - Occupational Stress Questionnaire Answer [...] Sign Reading Time Taken Comments Blood Pressure 143/65 09/02/2023 10:32 AM CDT Pulse 89 09/02/2023 10:32 AM CDT Temperature 36.7 ??C (98.1 ??F) 09/02/2023 10:32 AM C DT Respiratory Rate 16 09/02/2023 10:32 AM CDT Oxygen Saturation - - Inhaled [...] Date Dose Rate Site NaCl 0.9% infusion 1-999 mL/hr, intravenous, As needed, Post Medications (Hazardous/Low Fluid Volume), Starting on Francesca 09/02/23 at 1041, Infuse at the same rate as the medication until tubing cleared of medication, then discard. New Bag 09/02/2023 11:09 AM CDT 400 mL/hr 400 mL/hr sodium chloride 0.9 % injection 3 mL 3 mL, intravenous, As needed, line care, Starting on Francesca 09/02/23 at 1041, Prior to and following infusion and between multiple consecutive infusions. Given 09/02/2023 11:16 AM CDT 3 mL Given 09/02/2023 10:49 AM CDT 3 mL zoledronic lokj-kyariuhi-qtkvr IVPB 5 mg (RECLAST) 5 mg, intravenous, at 400 mL/hr, Administer over 15 Minutes, Once, On Francesca 09/02/23 at 1100, For 1 dose, Notify Provider for creatinine clearance less than 35mL/min as treatment is not recommended. Monitor serum creatinine before each dose, Restriction Criteria (Pharmacy will review and approve if criteria met): Osteoporosis patient who has failed or cannot tolerate one of the oral bisphosphonates, alendronate (Fosamax) and risendronate (Actonel) New Bag 09/02/2023 10:55 AM CDT 5 m g 400 mL/hr documented in this encounter Additional Health Concerns Assessment Noted Time PHQ-9 Depression Total Score: 1 06/02/19 18 9:34 AM MEASUREMENT DEPARTMENT CHIEF CLERK documented as of this encounter Care Teams Systems Eng Relationship Specialty Start Date End Date Tigre Preciado P.A.-C., P.A. PCP - General Family Medicine 10/11/19 documented as of this encounter
--- OUTSIDE RECORDS SUMMARY | 2023-10-04 16:17 | XMS_ITS | Encounter Summary ---
Author Organization [facility] Address [address] [place] [address] Care Team Providers Care Jewelry Sales Name Role Phone Tigre Preciado P.A.-C., P.A. Primary Care Pr ovider Reason for Referral * Outpatient (Routine) - Authorized Specialty Diagnoses / Procedures Referred By Contac t Referred To Contact Tigre Preciado P.A.-C., P.A. [address] [place] [address] [facility] Region Referral ID Status Reason Start Date Expiration Date V isits Requested Visits Authorized [id number] Authorized 08/24/2023 02/22/2025 1 1 Scheduling Instructions Nurse AWV Do not schedule prior to due date to ensure insurance coverage Visit: Medicare Annual Wellness Never done. Encounter Details Date Type Department Care Team (Late st Contact Info) Description 08/24/2023 Orders Only [facility] PCP [facility] Tigre Preciado P.A.-C., P.A. [address] [place] [address] Social History Tobacco Use Types [...] Recorded PHQ-2 Score 0 06/26/2021 [facility] - Occupational Stress Questionnaire Answer Date [...] Schedule Primary Care nurse visit (clinic) - [facility] Region; Medicare Annual Wellness Outpatient Referral Routine Expected: 09/21/2023, Expires: 02/20/2024 documented as of this encounter Visit Diagnoses Not on filedocumented in this encounter Additional Health Concerns Assessment Noted Time PHQ-9 Depression Total Score: 1 02/14/20 18 9:34 AM SET MAKING MACHINE OPERATOR documented as of this encounter Care Teams Jewelry Sales Relationship Specialty Start Date End Date Tigre Preciado P.A.-C., P.A. PCP - General Family Medicine 10/11/19 documented as of this encounter
--- OUTSIDE RECORDS SUMMARY | 2023-10-04 16:17 | XMS_ITS | Referral Summary ---
Author Organization [facility] Address [address] [place] [address] Care Team Providers Care Mechanic Recovery Name Role Phone Tigre Preciado P.A.-C., P.A. Primary Care Pr ovider Source Comments Patient records contain information from all sites at [facility]. For routine questions regarding patient records, call [phone] during business hours, M-F 8:00 AM - 5:00 PM Central Time. Record requests for emergency care only can be directed to [phone] at any time.[facility] Encounters Date Type Department Care Team Description 09/02/2023 10:15 AM CDT Infusion Department of Infusion Therapy in [place], [place] [address] [place] [phone] Duncan Mcgraw M.D. Osteoporosis (Primary Dx) 08/24/2023 Orders Only [facility] Tig[facility] Preciado P.A.Chery., P.A. 07/22/2023 Orders Only Division of Endocrinology in [place], [place] [address] [place] [phone] Duncan Mcgraw M.D. 07/22/2023 Clinical Communication Division of Endocrinology in [place], [place] [address] [place] [phone] Duncan Mcgraw M.D. Reclast from Last 3 Months Allergies Active Allergy [...] 400 mg by mouth daily. Active vitamin A,C,K-uuqzzc-jxsdn als (OCUVITE W/LUTEIN) 1,000 Unit-200 mg-60 Unit-2 [...] wheezing. 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 We also discussed management options with vaginal [...] Answer Date Recorded PHQ-2 Score 0 06/26/2021 [facility] [place] of Occupat ional Health - Occupational Stress [...] 16 09/02/2023 10:32 AM CDT Oxygen Saturation 99% 08/15/2022 12:16 PM CDT Inhaled Oxygen Concentration - - Weight 56.7 kg (125 lb) 05/16/2023 2:41 PM APPLE PEELER OPERATOR Height 160.3 cm (5' 3.11) 05/26/2022 9:30 AM CS T Body Mass Index 22.07 05/26/2022 9:30 AM APPLE PEELER OPERATOR Plan of Treatment Not on file Procedures Procedure Name Priority Date/Time Associated Diagnosis Comments OUTSIDE MG MAMMOGRAM Routine 04/01/2022 2:35 PM APPLE PEELER OPERATOR BMD BONE DENSITY SPINE HIPS RAD - Routine (most inpatients and all outpatients) 07/01/2017 1:41 PM CDT Screening Osteoporosis HCV AB SCRN W/REFLEX TO HCV PCR, S Routine 06/01/2016 10:10 AM APPLE PEELER OPERATOR from Last 3 Months or Most Recently Relevant to Health Maintenance Results * MM screening mammo BI-Outside Mammogram (04/01/2022 2:35 PM APPLE PEELER OPERATOR) Narrative IIMS - 07/03/2022 2:31 PM CDT This order has been created and auto-finalized to support the import of outside images. If available, original interpretation can be found on the Media Tab in Chart Review, in Document Viewer, or as an image in QREADS. If a re-interpretation or overread is required please follow defined workflow. ?? Provider Not In System IMG BI PROCEDURES IIDE NA * BMD Bone Density Spine Hips (07/01/2017 1:41 PM CDT) Anatomical Region Laterality Modality Hip, Lumbar Spine N/A Radiographic I maging 07/01/2017 2:57 PM CDT Impressions 07/01/2017 2:59 PM CDT Impression: Osteoporosis. Narrative 07/01/2017 2:59 PM CDT EXAM: BMD BONE DENSITY SPINE HIPS COMPARISON: 2012, 2007, 2005 Neuroscience Director Na/Model: [email or web address] financiero FINDINGS: ?? LUMBAR SPINE L1-L4 included unless [...] DENSITY SPINE HIPS COMPARISON: 2012, 2007, 2005 Neuroscience Director Na/Model: [email or web address] financiero FINDINGS: LUMBAR SPINE L1-L4 included unless otherwise indicated. Lumbar BMD: 0.951 gm/cm2 T-score: -2.0 BMD % change: -3.2% Significance: Statistically significant BMD decrease from the comparisonexam. HIP(S) Lowest femoral BMD: 0.66 gm/cm 2 Lowest T-score: -2.7 BMD % change: -5.7% Significance: Statistically significant BMD decrease from the comparisonexam. Continued and significant trend in bone mineral loss is identifiedthroughout all exams dating to 2006. FRAX 10 year probability of major osteoporotic [...] less Osteoporosis Impression: Osteoporosis. Luisa Roy M.D. [facility] DXA PROCEDURES * HCV Ab w/Reflex to HCV PCR, S (medicare) (06/01/2016 10:10 AM APPLE PEELER OPERATOR) HXHCV Ab [facility] Negative Negative POWERCHART Comment: Hlipzw-tr-zmkgto ratio is <1.00. Test Performed by: [place] [address] Die Maker Apprentice: Giacomo Gatica II, M.D., Ph.D. Blood 06/01/2016 10:1 0 AM APPLE PEELER OPERATOR Luisa Roy M.D. LAB MICR OBIOLOGY - BLOOD ORDERABLES POWERCHART from Last 3 Months or Most Recently Relevant to Health Maintenance Care Teams Mechanic Recovery Relationship Specialty Start Date End Date Tigre Preciado P.A.-C., P.A. PCP - General Family Medicine 10/11/19
--- OUTSIDE RECORDS SUMMARY | 2023-10-04 16:17 | XMS_ITS | Encounter Summary ---
Author Organization [facility] Address [address] [place] [address] Care Team Providers Care Almond Roaster Name Role Phone Tigre Preciado P.A.-C., P.A. Primary Care Pr ovider Reason for Visit * Reason Onset Date Comments Reclast 07/22/2023 Encounter Details Date Type Department Care Team (Latest Contact Info) Description 07/22/2023 Clinical Communication Division of Endocrinology in [place], [place] [address] [place] [address] Duncan Mcgraw M.D. [address] [place] [phone] Reclast Social History Tobacco Use Types Packs/Day [...] Answer Date Recorded PHQ-2 Score 0 06/26/2021 [facility] [place] of Occupat ional Health - Occupational Stress [...] Total Score: 1 06/02/19 18 9:34 AM MELTING OPERATOR documented as of this encounter Care Teams Almond Roaster Relationship Specialty Start Date End Date Tigre Preciado P.A.-C., P.A. PCP - General Family Medicine 10/11/19 documented as of this encounter
--- OUTSIDE RECORDS SUMMARY | 2023-10-04 16:17 | XMS_ITS | Clinical Summary ---
Author Organization [facility] Address [place], [place] [address] Care Team Providers Care Jewelry Dipper Name Role Phone Kanchan Granda NP Primary Care Provider [phone] Allergies Active Allergy Reactions Criticality Noted Date [...] PRN, Reported on 01/16/2020 vit A,C and Y-qrzqcy-kaelyfcr (OCUVITE WITH LUTEIN) 1,000 unit-200 mg-60 unit-2 [...] will continue to work with her current delimer. We also discussed management options with vaginal estrogen therapy, pessary, or surgical intervention. She is not interested in these options at this time. I recommend she follow up as needed in the future. Osteoporosis 07/20/2017 Personal history of colonic polyps 11/10/2012 Reactive airway disease 07/12/2009 Headache(784.0) 01/09/2009 Immunizations Name Administration Dates Next Due COVID-19 vaccine ([employer] 30mcg/0.3mL) P F, MDV 02/24/2021 Influenza, IIV3 [...] Outcome GA Total Labor Labor/2nd/3rd Weight Sex Type Anes PTL Sarah Beth A1 A5 Name Clin Term Term Term Last Filed Vital Signs [...] 159 cm (5' 2.6) 02/29/2020 12:48 PM COACH DRIVER Body Mass Index 22.61 02/29/2020 12:48 PM COACH DRIVER Plan of Treatment Health Maintenance Due [...] 12+ 11/22/2018 11/23/19 18 COVID-19 vaccine series (2022-24 season) 2022 02/24/2021, 07/04/2020, 06/06/2020 Influenza for age 65+ 12/19/2023 02/03/2021 , 02/19/2020, 01/21/2009 Tdap Completed 01/23/2003 Advance Directives * Full Code (Latest Code Status on File) Date Activated Date Inactivated Comments 03/13/2020 7:36 AM 03/13/2020 1:19 PM Question Answer Comments Code Status Discussion: Not Discussed Care Teams Jewelry Dipper Relationship Specialty Start Date End Date Kanchan Granda RISK CONTROL REPRESENTATIVE [address] [facility] [place] [phone] PCP - General Emergency Medicine 06/02/23
--- OUTSIDE RECORDS SUMMARY | 2023-10-04 16:17 | XMS_ITS | Clinical Summary ---
Author Organization [facility] Address [address] [place] [address] Care Team Providers Care Lead Former Name Role Phone Tigre Preciado P.A.-C., P.A. Primary Care Pr ovider Source Comments Patient records contain information from all sites at [facility]. For routine questions regarding patient records, call [phone] during business hours, M-F 8:00 AM - 5:00 PM Central Time. Record requests for emergency care only can be directed to [phone] at any time.[facility] Allergies Active Allergy Reactions Criticality Noted Date [...] 400 mg by mouth daily. Active vitamin A,C,U-uohdoq-guhth als (OCUVITE W/LUTEIN) 1,000 Unit-200 mg-60 Unit-2 [...] wheezing. 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 We also discussed management options with vaginal [...] CDT Infusion Department of Infusion Therapy in [place], [place] [address] [place] [address] Duncan Mcgraw M.D. Osteoporosis (Primary Dx) 08/24/2023 Orders Only [facility] PCP HLTH MNT Tirge Preciado P.A.Chery., P.A. 07/22/2023 Orders Only Division of Endocrinology in [place], [place] [address] [place] [address] Duncan Mcgraw M.D. 07/22/2023 Clinical Communication Division of Endocrinology in [place], [place] [address] [place] [address] Duncan Mcgraw M.D. Reclast from Last 3 Months Immunizations Name Administration [...] 56.7 kg (125 lb) 05/16/2023 2:41 PM CAN CONVEYOR FEEDER Height 160.3 cm (5' 3.11) 05/26/2022 9:30 AM CS T Body Mass Index 22.07 05/26/2022 9:30 AM CAN CONVEYOR FEEDER Plan of Treatment Health Maintenance Due Date Last Done Comments Visit: Medicare Annual Wellness 1945 Zoster Vaccines (1 of 2) 1997 Depression Screening (Annual PHQ-2) 04/19/2023 Fall Risk Screen (Annual) 04/19/2023 COVID-19 Vaccine (2022- 4 season) 2023 03/29/2023, 04/03/2022, 10/17/2021, Additional [...] OUTSIDE MG MAMMOGRAM Routine 04/01/2022 2:35 PM CAN CONVEYOR FEEDER BMD BONE DENSITY SPINE HIPS RAD - Routine (most inpatients and all outpatients) 07/01/2017 1:41 PM CDT Screening Osteoporosis HCV AB SCRN W/REFLEX TO HCV PCR, S Routine 06/01/2016 10:10 AM CAN CONVEYOR FEEDER from Last 3 Months or Most Recently Relevant to Health Maintenance Results * MM screening mammo BI-Outside Mammogram (04/01/2022 2:35 PM CAN CONVEYOR FEEDER) Narrative IIMS - 07/03/2022 2:31 PM CDT This order has been created and auto-finalized to support the import of outside images. If available, original interpretation can be found on the Media Tab in Chart Review, in Document Viewer, or as an image in QREADS. If a re-interpretation or overread is required please follow defined workflow. ?? Provider Not In System IMG BI PROCEDURES [facility] NA * BMD Bone Density Spine Hips (07/01/2017 1:41 PM CDT) Anatomical Region Laterality Modality Hip, Lumbar Spine N/A Radiographic I maging 07/01/2017 2:57 PM CDT Impressions 07/01/2017 2:59 PM CDT Impression: Osteoporosis. Narrative 07/01/2017 2:59 PM CDT EXAM: BMD BONE DENSITY SPINE HIPS COMPARISON: 2012, 2007, 2005 Machine Shop Repair Technician/Model: [employer] FINDINGS: ?? LUMBAR SPINE L1-L4 included unless [...] DENSITY SPINE HIPS COMPARISON: 2012, 2007, 2005 Machine Shop Repair Technician/Model: [employer] FINDINGS: LUMBAR SPINE L1-L4 included unless otherwise [...] HCV PCR, S (medicare) (06/01/2016 10:10 AM CAN CONVEYOR FEEDER) HXHCV Ab [facility] Negative Negative POWERCHART Comment: Yobltx-kj-nxnrsh ratio is <1.00. Test Performed by: [place] [address] Coil Rewind Machine Operator: Giacomo Gatica II, M.D., Ph.D. Blood 06/01/2016 10:1 0 AM CAN CONVEYOR FEEDER Luisa Roy M.D. LAB MICR OBIOLOGY - BLOOD ORDERABLES POWERCHART from Last 3 Months or Most Recently Relevant to Health Maintenance Care Teams Lead Former Relationship Specialty Start Date End Date Tigre Preciado P.A.-C., P.A. PCP - General Family Medicine 10/11/19
--- OUTSIDE RECORDS SUMMARY | 2023-10-04 16:17 | XMS_ITS | Encounter Summary ---
Author Organization [facility] Address [address] [place] [address] Care Team Providers Care Tapping Machine Operator Automatic Name Role Phone Tigre Preciado P.A.-C., P.A. Primary Care Pr ovider Encounter Details Date Type Department Care Team (Late st Contact Info) Description 07/22/2023 Orders Only Division of Endocrinology in [place], [place] [address] [place] [phone] Duncan Mcgraw M.D. [address] [place] [address] Social History Tobacco Use Types Packs/Day Years [...] 0 06/26/2021 [facility] [place] of Occupat ional Health - Occupational Stress [...] Score: 1 06/02/19 18 9:34 AM MANAGER INFUSION documented as of this encounter Care Teams Tapping Machine Operator Automatic Relationship Specialty Start Date End Date Tigre Preciado P.A.-C., P.A. PCP - General Family Medicine 10/11/19 documented as of this encounter
--- OUTSIDE RECORDS SUMMARY | 2023-10-04 16:17 | XMS_ITS ---
Author Organization [facility] Address [address] [place] [address] Care Team Providers Care Mysql Dba Name Role Phone Unavailable Unavailable Unavailable Surgery Details Not on file Complications Check Surgery Details section. Procedure Estimated Blood Loss Check Surgery Details section. Procedure Findings Check Surgery Details section. Procedure Specimens Taken Check Surgery Details section.
--- OUTSIDE RECORDS SUMMARY | 2023-10-04 16:17 | XMS_ITS | Encounter Summary ---
Author Organization [facility] Address [address] [place] [address] Care Team Providers Care Assembler Dry Cell And Battery Name Role Phone Tigre Preciado P.A.-C., P.A. Primary Care Pr ovider Reason for Referral * Outpatient (Routine) - Authorized Specialty Diagnoses / Procedures Referred By Contac t Referred To Contact Endocrinology Diagnoses Osteoporosis Duncan Mcgraw M.D. [address] [place] [phone] [facility] Referral ID Status Reason Start Date Expiration Date V isits Requested Visits Authorized [id number] Authorized 07/02/2023 12/31/2024 1 1 Scheduling Instructions May see [facility] or any bone MD * Outpatient (Routine) - Authorized Specialty Diagnoses / Procedures Referred By Contac t Referred To Contact Diagnoses Osteoporosis Procedures BMD Bone Density Spine Hips Duncan Mcgraw M.D. 200 [place] [address] [facility] Referral ID Status Reason Start Date Expiration Date V isits Requested Visits Authorized [id number] Authorized 07/02/2023 07/01/2024 1 1 Encounter Details Date Type Department Care Team (Late st Contact Info) Description 07/02/2023 Orders Only Division of Endocrinology in [place], [place] [address] [place] [phone] Duncan Mcgraw M.D. [address] [place] [address] Osteoporosis (Primary Dx) Social History Tobacco Use [...] Score: 1 06/02/19 18 9:34 AM MANAGER PRODUCT MARKETING documented as of this encounter Care Teams Assembler Dry Cell And Battery Relationship Specialty Start Date End Date Tigre Preciado P.A.-C., P.A. PCP - General Family Medicine 10/11/19 documented as of this encounter
== END 2023-10-04 16:12 | disposition home or self-care (01) ==
PROVIDERS: PCP Nurse Practitioner Family; Visit Provider Nurse Practitioner Family
DX: R10.13 Epigastric pain (principal)
CPT/HCPCS: 80053; 85025

== ENCOUNTER 2023-10-05 16:11 | Outpatient (CLI) | payer MEDICARE, SELFPAY ==
--- OUTSIDE RECORDS SUMMARY | 2023-10-05 09:17 | XMS_ITS | Encounter Summary ---
Author Organization [facility] Address [address] [place] [address] Care Team Providers Care Mortar Man Name Role Phone Tigre Preciado P.A.-C., P.A. Primary Care Pr ovider Reason for Visit * Reason Onset Date Comments Reclast 07/22/2023 Encounter Details Date Type Department Care Team (Latest Contact Info) Description 07/22/2023 Clinical Communication Division of Endocrinology in [place], [place] [address] [place] [address] Duncan Mcgraw M.D. [address] [place] [phone] Reclast Social History Tobacco Use Types Packs/Day [...] Answer Date Recorded PHQ-2 Score 0 06/26/2021 [facility] [place] of Occupat ional Health - Occupational Stress [...] Score: 1 06/02/19 18 9:34 AM PHOTOVOLTAIC INSTALLER documented as of this encounter Care Teams Mortar Man Relationship Specialty Start Date End Date Tigre Preciado P.A.-C., P.A. PCP - General Family Medicine 10/11/19 documented as of this encounter
--- OUTSIDE RECORDS SUMMARY | 2023-10-05 09:17 | XMS_ITS | Referral Summary ---
Author Organization [facility] Address [address] [place] [address] Care Team Providers Care Social Human Services Assistants Name Role Phone Tigre Preciado P.A.-C., P.A. Primary Care Pr ovider Source Comments Patient records contain information from all sites at [facility]. For routine questions regarding patient records, call [phone] during business hours, M-F 8:00 AM - 5:00 PM Central Time. Record requests for emergency care only can be directed to [phone] at any time.[facility] Encounters Date Type Department Care Team Description 09/02/2023 10:15 AM CDT Infusion Department of Infusion Therapy in [place], [place] [address] [place] [phone] Duncan Mcgraw M.D. Osteoporosis (Primary Dx) 08/24/2023 Orders Only [facility] Tig[facility] Preciado P.A.Chery., P.A. 07/22/2023 Orders Only Division of Endocrinology in [place], [place] [address] [place] [phone] Duncan Mcgraw M.D. 07/22/2023 Clinical Communication Division of Endocrinology in [place], [place] [address] [place] [phone] Duncan Mcgraw M.D. Reclast from Last 3 [...] 400 mg by mouth daily. Active vitamin A,C,M-dawzwx-trzko als (OCUVITE W/LUTEIN) 1,000 Unit-200 mg-60 Unit-2 [...] wheezing. 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 We also discussed management options with vaginal [...] Recorded PHQ-2 Score 0 06/26/2021 [facility] [place] of Occupat ional Health - Occupational Stress [...] 56.7 kg (125 lb) 05/16/2023 2:41 PM TEST AND TURN UP TECHNICIAN Height 160.3 cm (5' 3.11) 05/26/2022 9:30 AM CS T Body Mass Index 22.07 05/26/2022 9:30 AM TEST AND TURN UP TECHNICIAN Plan of Treatment Not on file Procedures Procedure Name Priority Date/Time Associated Diagnosis Comments OUTSIDE MG MAMMOGRAM Routine 04/01/2022 2:35 PM TEST AND TURN UP TECHNICIAN BMD BONE DENSITY SPINE HIPS RAD - Routine (most inpatients and all outpatients) 07/01/2017 1:41 PM CDT Screening Osteoporosis HCV AB SCRN W/REFLEX TO HCV PCR, S Routine 06/01/2016 10:10 AM TEST AND TURN UP TECHNICIAN from Last 3 Months or Most Recently Relevant to Health Maintenance Results * MM screening mammo BI-Outside Mammogram (04/01/2022 2:35 PM TEST AND TURN UP TECHNICIAN) Narrative IIMS - 07/03/2022 2:31 PM [...] Provider Not In System IMG BI PROCEDURES [facility] NA * BMD Bone Density Spine Hips (07/01/2017 1:41 PM CDT) Anatomical Region Laterality Modality Hip, Lumbar Spine N/A Radiographic I maging 07/01/2017 2:57 PM CDT Impressions 07/01/2017 2:59 PM CDT Impression: Osteoporosis. Narrative 07/01/2017 2:59 PM CDT EXAM: BMD BONE DENSITY SPINE HIPS COMPARISON: 2012, 2007, 2005 Budget Officer/Model: [employer] FINDINGS: ?? LUMBAR SPINE L1-L4 included unless [...] DENSITY SPINE HIPS COMPARISON: 2012, 2007, 2005 Budget Officer/Model: [employer] FINDINGS: LUMBAR SPINE L1-L4 included unless otherwise [...] less Osteoporosis Impression: Osteoporosis. Luisa Roy M.D. [facility] PROCED[facility] * HCV Ab w/Reflex to HCV PCR, S (medicare) (06/01/2016 10:10 AM TEST AND TURN UP TECHNICIAN) HXHCV Ab [facility] Negative Negative POWERCHART Comment: Mywvxh-uu-jpuhtw ratio is <1.00. Test Performed by: [place] [address] Supervisor Housecleaner: Giacomo Gatica II, M.D., Ph.D. Blood 06/01/2016 10:1 0 AM TEST AND TURN UP TECHNICIAN Luisa Roy M.D. LAB MICR OBIOLOGY - BLOOD ORDERABLES POWERCHART from Last 3 Months or Most Recently Relevant to Health Maintenance Care Teams Social Human Services Assistants Relationship Specialty Start Date End Date Tigre Preciado P.A.-C., P.A. PCP - General Family Medicine 10/11/19
--- OUTSIDE RECORDS SUMMARY | 2023-10-05 09:17 | XMS_ITS ---
Author Organization [facility] Address [address] [place] [address] Care Team Providers Care Grease Maker Name Role Phone Unavailable Unavailable Unavailable Surgery Details Not on file Complications Check Surgery Details section. Procedure Estimated Blood Loss Check Surgery Details section. Procedure Findings Check Surgery Details section. Procedure Specimens Taken Check Surgery Details section.
--- OUTSIDE RECORDS SUMMARY | 2023-10-05 09:17 | XMS_ITS | Clinical Summary ---
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 We also discussed management options with vaginal estrogen therapy, pessary, or surgical intervention. She is not interested in these options at this time. I recommend she follow up as needed in the future. Osteoporosis 07/20/2017 Personal history of colonic polyps 11/10/2012 Reactive airway disease 07/12/2009 Headache(784.0) 01/09/2009 Immunizations Name Administration Dates Next Due COVID-19 vaccine (Anti-Microbial Solutions 30mcg/0.3mL) P F, MDV 02/24/2021 Influenza, IIV3 [...] 159 cm (5' 2.6) 02/29/2020 12:48 PM GEOSCIENCE TECHNICIAN Body Mass Index 22.61 02/29/2020 12:48 PM GEOSCIENCE TECHNICIAN Plan of Treatment Health Maintenance Due Date [...] Code Status Discussion: Not Discussed Care Teams Cert Occupational Therapy Asst Relationship Specialty Start Date End Date Kanchan Granda PROCESS SAFETY MANAGEMENT ENGINEER [address] [facility] [place] [address] PCP - General Emergency Medicine 06/02/23
--- OUTSIDE RECORDS SUMMARY | 2023-10-05 09:17 | XMS_ITS | Encounter Summary ---
Author Organization [facility] Address [address] [place] [address] Care Team Providers Care Boarding Specialist Name Role Phone Tigre Preciado P.A.-C., P.A. Primary Care Pr ovider Reason for Referral * Outpatient (Routine) - Authorized Specialty Diagnoses / Procedures Referred By Contac t Referred To Contact Endocrinology Diagnoses Osteoporosis Duncan Mcgraw M.D. [address] [place] [phone] [facility] Referral ID Status Reason Start Date Expiration Date V isits Requested Visits Authorized [id number] Authorized 07/02/2023 12/31/2024 1 1 Scheduling Instructions May see [facility] or any bone MD * Outpatient (Routine) - Authorized Specialty Diagnoses / Procedures Referred By Contac t Referred To Contact Diagnoses Osteoporosis Procedures BMD Bone Density Spine Hips Duncan cMgraw M.D. 200 [place] [address] [facility] Referral ID Status Reason Start Date Expiration Date V isits Requested Visits Authorized [id number] Authorized 07/02/2023 07/01/2024 1 1 Encounter Details Date Type Department Care Team (Late st Contact Info) Description 07/02/2023 Orders Only Division of Endocrinology in [place], [place] [address] [place] [phone] Duncan Mcgraw M.D. [address] [place] [address] Osteoporosis (Primary Dx) Social History Tobacco Use [...] Total Score: 1 06/02/19 18 9:34 AM CREAM MAKER documented as of this encounter Care Teams Boarding Specialist Relationship Specialty Start Date End Date Tigre Preciado P.A.-C., P.A. PCP - General Family Medicine 10/11/19 documented as of this encounter
--- OUTSIDE RECORDS SUMMARY | 2023-10-05 09:17 | XMS_ITS | Encounter Summary ---
Author Organization [facility] Address [address] [place] [address] Care Team Providers Care Healthcare Management Name Role Phone Tigre Preciado P.A.-C., P.A. Primary Care Pr ovider Reason for Visit * Episode Based Medications (Routine) - Closed Specialty Diagnoses / Procedures Referred By Contac t Referred To Contact Diagnoses Osteoporosis Procedures DE ZOLEDRONIC ACID 1MG zoledronic acid (RECLAST) Duncan Mcgraw M.D. [address] [place] [phone] [address] [place] [address] [place] [phone] Referral ID Status Reason Start Date Expiration Date Visits Re quested Visits Authorized [id number] Closed 07/02/2023 04/18/2024 1 1 Encounter Details Date Type Department Care Team (Late st Contact Info) Description 09/02/2023 10:15 AM CDT Infusion Department of Infusion Therapy in [place], [place] [address] [place] [phone] Duncan Mcgraw M.D. [address] [place] [phone] Osteoporosis (Primary Dx) Social History Tobacco [...] Answer Date Recorded PHQ-2 Score 0 06/26/2021 [facility] - Occupational Stress Questionnaire Answer [...] 09/02/2023 10:49 AM CDT 3 mL zoledronic klkm-jugbgssk-oezxw IVPB 5 mg (RECLAST) 5 mg, intravenous, [...] Total Score: 1 06/02/19 18 9:34 AM MACHINERY MOVER documented as of this encounter Care Teams Healthcare Management Relationship Specialty Start Date End Date Tigre Preciado P.A.-C., P.A. PCP - General Family Medicine 10/11/19 documented as of this encounter
--- OUTSIDE RECORDS SUMMARY | 2023-10-05 09:17 | XMS_ITS | Clinical Summary ---
Author Organization [facility] Address [address] [place] [address] Care Team Providers Care Software Engineer Developer Name Role Phone Tigre Preciado P.A.-C., P.A. Primary Care Pr ovider Source Comments Patient records contain information from all sites at [facility]. For routine questions regarding patient records, call [phone] during business hours, M-F 8:00 AM - 5:00 PM Central Time. Record requests for emergency care only can be directed to [phone] at any time.[facility] Allergies Active Allergy Reactions Criticality [...] 400 mg by mouth daily. Active vitamin A,C,C-zjtqih-cuyke als (OCUVITE W/LUTEIN) 1,000 Unit-200 mg-60 Unit-2 [...] wheezing. 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 We also discussed management options with [...] CDT Infusion Department of Infusion Therapy in [place], [place] [address] [place] [address] Duncan Mcgraw M.D. Osteoporosis (Primary Dx) 08/24/[address] [facility] PCP [facility]TH MNT Tigre Preciado P.A.Chery., P.A. 07/22/2023 Orders Only Division of Endocrinology in [place], [place] [address] [place] [phone] Duncan Mcgraw M.D. 07/22/2023 Clinical Communication Division of Endocrinology in [place], [place] [address] [place] [address] Duncan Mcgraw M.D. Reclast from Last 3 [...] Answer Date Recorded PHQ-2 Score 0 06/26/2021 [facility] of Occupat ional Health - Occupational [...] 56.7 kg (125 lb) 05/16/2023 2:41 PM WELDER METAL FAB Height 160.3 cm (5' 3.11) 05/26/2022 9:30 AM CS T Body Mass Index 22.07 05/26/2022 9:30 AM WELDER METAL FAB Plan of Treatment Health Maintenance Due Date [...] OUTSIDE MG MAMMOGRAM Routine 04/01/2022 2:35 PM WELDER METAL FAB BMD BONE DENSITY SPINE HIPS RAD - Routine (most inpatients and all outpatients) 07/01/2017 1:41 PM CDT Screening Osteoporosis HCV AB SCRN W/REFLEX TO HCV PCR, S Routine 06/01/2016 10:10 AM WELDER METAL FAB from Last 3 Months or Most Recently Relevant to Health Maintenance Results * MM screening mammo BI-Outside Mammogram (04/01/2022 2:35 PM WELDER METAL FAB) Narrative IIMS - 07/03/2022 2:31 PM CDT This order has been created and auto-finalized to support the import of outside images. If available, original interpretation can be found on the Media Tab in Chart Review, in Document Viewer, or as an image in QREADS. If a re-interpretation or overread is required please follow defined workflow. ?? Provider Not In System IMG BI PROCEDURES [facility] NA * BMD Bone Density Spine Hips (07/01/2017 1:41 PM CDT) Anatomical Region Laterality Modality Hip, Lumbar Spine N/A Radiographic I maging 07/01/2017 2:57 PM CDT Impressions 07/01/2017 2:59 PM CDT Impression: Osteoporosis. Narrative 07/01/2017 2:59 PM CDT EXAM: BMD BONE DENSITY SPINE HIPS COMPARISON: 2012, 2007, 2005 Grinder Chipper/Model: [employer] FINDINGS: ?? LUMBAR SPINE L1-L4 included unless [...] DENSITY SPINE HIPS COMPARISON: 2012, 2007, 2005 Grinder Chipper/Model: [employer] FINDINGS: LUMBAR SPINE L1-L4 included unless otherwise [...] HCV PCR, S (medicare) (06/01/2016 10:10 AM WELDER METAL FAB) HXHCV Ab [facility] Negative Negative POWERCHART Comment: Qqzlpb-lj-taajmv ratio is <1.00. Test Performed by: [place] [address] Hangersmith: Giacomo Gatica II, M.D., Ph.D. Blood 06/01/2016 10:1 0 AM WELDER METAL FAB Luisa Roy M.D. LAB MICR OBIOLOGY - BLOOD ORDERABLES POWERCHART from Last 3 Months or Most Recently Relevant to Health Maintenance Care Teams Software Engineer Developer Relationship Specialty Start Date End Date Tigre Preciado P.A.-C., P.A. PCP - General Family Medicine 10/11/19
--- OUTSIDE RECORDS SUMMARY | 2023-10-05 09:17 | XMS_ITS | Encounter Summary ---
Author Organization [facility] Address [address] [place] [address] Care Team Providers Care Videogame Tester Name Role Phone Tigre Preciado P.A.-C., P.A. Primary Care Pr ovider Encounter Details Date Type Department Care Team (Late st Contact Info) Description 07/22/2023 Orders Only Division of Endocrinology in [place], [place] [address] [place] [phone] Duncan Mcgraw M.D. [address] [place] [phone] Social History Tobacco Use Types Packs/Day Years [...] PHQ-2 Score 0 06/26/2021 [facility] [place] of Occupat ional Health - Occupational Stress [...] Total Score: 1 06/02/19 18 9:34 AM PROPERTY PRESERVATION SPECIALIST documented as of this encounter Care Teams Videogame Tester Relationship Specialty Start Date End Date Tigre Preciado P.A.-C., P.A. PCP - General Family Medicine 10/11/19 documented as of this encounter
--- OUTSIDE RECORDS SUMMARY | 2023-10-05 09:17 | XMS_ITS | Encounter Summary ---
Author Organization [facility] Address [address] [place] [address] Care Team Providers Care Rake Operator Name Role Phone Tigre Preciado P.A.-C., P.A. Primary Care Pr ovider Reason for Referral * Outpatient (Routine) - Authorized Specialty Diagnoses / Procedures Referred By Contac t Referred To Contact Tigre Preciado P.A.-C., P.A. [address] [place] [address] [facility] Region Referral ID Status Reason Start Date Expiration Date V isits Requested Visits Authorized [id number] Authorized 08/24/2023 02/22/2025 1 1 Scheduling Instructions Nurse AWV Do not schedule prior to due date to ensure insurance coverage Visit: Medicare Annual Wellness Never done. Encounter Details Date Type Department Care Team (Late st Contact Info) Description 08/24/2023 Orders Only [facility] MNT Tigre Preciado P.A.-C., P.A. [address] [place] [address] Social History Tobacco Use Types [...] Answer Date Recorded PHQ-2 Score 0 06/26/2021 [facility] - Occupational Stress Questionnaire Answer Date [...] Schedule Primary Care nurse visit (clinic) - [facility] Region; Medicare Annual Wellness Outpatient Referral Routine Expected: 09/21/2023, Expires: 02/20/2024 documented as of this encounter Visit Diagnoses Not on filedocumented in this encounter Additional Health Concerns Assessment Noted Time PHQ-9 Depression Total Score: 1 02/14/20 18 9:34 AM HONEYCOMB DECAPPER documented as of this encounter Care Teams Rake Operator Relationship Specialty Start Date End Date Tigre Preciado P.A.-C., P.A. PCP - General Family Medicine 10/11/19 documented as of this encounter
[2023-10-05 15:09] LABS: H pylori Ag Stool* Negative (Negative)
== END 2023-10-05 16:12 | disposition home or self-care (01) ==
PROVIDERS: PCP Nurse Practitioner Family; Visit Provider Nurse Practitioner Family
DX: R10.13 Epigastric pain (principal)
CPT/HCPCS: 87338

== ENCOUNTER 2023-10-25 09:04 | Outpatient (CLI) | payer MEDICARE, SELFPAY ==
--- OUTSIDE RECORDS SUMMARY | 2023-10-25 09:07 | XMS_ITS | Clinical Summary ---
Author Organization [facility] Address [address] [place] [address] Care Team Providers Care Buckle Attaching Machine Operator Name Role Phone Tigre Preciado P.A.-C., P.A. Primary Care Pr ovider Source Comments Patient records contain information from all sites at [facility]. For routine questions regarding patient records, call [phone] during business hours, M-F 8:00 AM - 5:00 PM Central Time. Record requests for emergency care only can be directed to [phone] at any time.[facility] Allergies Active Allergy Reactions Criticality [...] 400 mg by mouth daily. Active vitamin A,C,E-ahjsro-qahkk als (OCUVITE W/LUTEIN) 1,000 Unit-200 mg-60 Unit-2 [...] wheezing. 8 g 3 07/02/2021 Active zoledronic zxro-uebfwhsU-wtsp r (RECLAST) 5 mg/100 mL piggyback Infuse [...] mouth at bedtime. 90 tablet 3 10/07/2022 Active estrogens, conjugated, (Premarin) 1 g (0.625 [...] will continue to work with her current lead mechanical engineer. We also discussed management options with [...] CDT Infusion Department of Infusion Therapy in [place], [place] [address] [place] [address] Duncan Mcgraw M.D. Osteoporosis (Primary Dx) 08/24/2023 Orders Only [facility] MNT Tigre Preciado, P.A.-C., P.A. from Last 3 Months Immunizations Name Administration [...] Answer Date Recorded PHQ-2 Score 0 06/26/2021 [facility] of Occupat ional Health - Occupational Stress [...] 56.7 kg (125 lb) 05/16/2023 2:41 PM DRUM ATTENDANT Height 160.3 cm (5' 3.11) 05/26/2022 9:30 AM CS T Body Mass Index 22.07 05/26/2022 9:30 AM DRUM ATTENDANT Plan of Treatment Health Maintenance Due Date Last Done Comments Visit: Medicare Annual Wellness 1945 Zoster Vaccines (1 of 2) 1997 Depression Screening (Annual PHQ-2) 04/19/2023 Fall Risk Screen (Annual) 04/19/2023 COVID-19 Vaccine (2022-2 4 season) 2023 03/29/2023, 04/03/2022, 10/17/2021, Additional history exists Influenza Vaccine (#1) 2024 , 01/19/2022, 02/03/2021, Additional history exists Bone Density Scan Monitoring 02/24/202410/2021 (Performed elsewhere), 07/01/2017 Visit: Annual, age 65+ (or Medicare and <65) 05/16/2024 05/16/2023 DTaP,Tdap,and Td Vaccines (3 - Td or Tdap) 01/21/2033 01/21/2023, 04/03/2013, 01/23/2003 Pneumococcal vaccine (65+ years) Completed 05/29/19 15, 04/08/2012 Hepatitis C Screening Completed 06/01/2016 Colonoscopy Discontinued 03/13/2020, 10/18, 11/10/2012 Colorectal Cancer Surveillance Discontinued Mammogram Discontinued 04/01/2022, 08/2020, 11/21/2019, Additional history exists CT Colonography Discontinued Cologuard Discontinued Procedures Procedure Name Priority Date/Time Associated Diagnosis Comments OUTSIDE MG MAMMOGRAM Routine 04/01/2022 2:35 PM DRUM ATTENDANT BMD BONE DENSITY SPINE HIPS RAD - Routine (most inpatients and all outpatients) 07/01/2017 1:41 PM CDT Screening Osteoporosis HCV AB SCRN W/REFLEX TO HCV PCR, S Routine 06/01/2016 10:10 AM DRUM ATTENDANT from Last 3 Months or Most Recently Relevant to Health Maintenance Results * MM screening mammo BI-Outside Mammogram (04/01/2022 2:35 PM DRUM ATTENDANT) Narrative IIMS - 07/03/2022 2:31 PM CDT [...] DENSITY SPINE HIPS COMPARISON: 2012, 2007, 2005 [place]/Model: GOOD FINDINGS: ?? LUMBAR SPINE L1-L4 included unless [...] DENSITY SPINE HIPS COMPARISON: 2012, 2007, 2005 [place]/Model: GOOD FINDINGS: LUMBAR SPINE L1-L4 included unless otherwise [...] HCV PCR, S (medicare) (06/01/2016 10:10 AM DRUM ATTENDANT) HXHCV Ab [facility] Negative Negative POWERCHART Comment: Mjsaor-ey-pnbaxd ratio is <1.00. Test Performed by: [place] [address] Room Service Bellhop: Giacomo Gatica II, M.D., Ph.D. Blood 06/01/2016 10:1 0 AM DRUM ATTENDANT Luisa Roy M.D. LAB MICR OBIOLOGY - BLOOD ORDERABLES POWERCHART from Last 3 Months or Most Recently Relevant to Health Maintenance Care Teams Buckle Attaching Machine Operator Relationship Specialty Start Date End Date Tigre Preciado P.A.-C., P.A. PCP - General Family Medicine 10/11/19
--- OUTSIDE RECORDS SUMMARY | 2023-10-25 09:07 | XMS_ITS | Referral Summary ---
Author Organization [facility] Address [address] [place] [address] Care Team Providers Care Weight Count Operator Name Role Phone Tigre Preciado P.A.-C., P.A. Primary Care Pr ovider Source Comments Patient records contain information from all sites at [facility]. For routine questions regarding patient records, call [phone] during business hours, M-F 8:00 AM - 5:00 PM Central Time. Record requests for emergency care only can be directed to [phone] at any time.[facility] Encounters Date Type Department Care Team Description 09/02/2023 10:15 AM CDT Infusion Department of Infusion Therapy in [place], [place] [address] [place] [address] Duncan Mcgraw M.D. Osteoporosis (Primary Dx) 08/24/2023 Orders Only [facility] PCP [facility] MNT Tigre Preciado, P.A.-C., P.A. from Last 3 Months Allergies Active Allergy [...] 400 mg by mouth daily. Active vitamin A,C,V-hhhbjf-zmywo als (OCUVITE W/LUTEIN) 1,000 Unit-200 mg-60 Unit-2 [...] wheezing. 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 We also discussed management options with vaginal [...] Answer Date Recorded PHQ-2 Score 0 06/26/2021 [facility] [place] of Occupat ional Health - Occupational Stress [...] 56.7 kg (125 lb) 05/16/2023 2:41 PM POWDER GUARD Height 160.3 cm (5' 3.11) 05/26/2022 9:30 AM CS T Body Mass Index 22.07 05/26/2022 9:30 AM POWDER GUARD Plan of Treatment Not on file Procedures Procedure Name Priority Date/Time Associated Diagnosis Comments OUTSIDE MG MAMMOGRAM Routine 04/01/2022 2:35 PM POWDER GUARD BMD BONE DENSITY SPINE HIPS RAD - Routine (most inpatients and all outpatients) 07/01/2017 1:41 PM CDT Screening Osteoporosis HCV AB SCRN W/REFLEX TO HCV PCR, S Routine 06/01/2016 10:10 AM POWDER GUARD from Last 3 Months or Most Recently Relevant to Health Maintenance Results * MM screening mammo BI-Outside Mammogram (04/01/2022 2:35 PM POWDER GUARD) Narrative IIMS - 07/03/2022 2:31 PM CDT This order has been created and auto-finalized to support the import of outside images. If available, original interpretation can be found on the Media Tab in Chart Review, in Document Viewer, or as an image in QREADS. If a re-interpretation or overread is required please follow defined workflow. ?? Provider Not In System IMG BI PROCEDURES [facility] NA * BMD Bone Density Spine Hips (07/01/2017 1:41 PM CDT) Anatomical Region Laterality Modality Hip, Lumbar Spine N/A Radiographic I maging 07/01/2017 2:57 PM CDT Impressions 07/01/2017 2:59 PM CDT Impression: Osteoporosis. Narrative 07/01/2017 2:59 PM CDT EXAM: BMD BONE DENSITY SPINE HIPS COMPARISON: 2012, 2007, 2005 Sole Leather Cutting Machine Operator/Model: [email or web address] FINDINGS: ?? LUMBAR SPINE L1-L4 included unless [...] DENSITY SPINE HIPS COMPARISON: 2012, 2007, 2005 Sole Leather Cutting Machine Operator/Model: [email or web address] FINDINGS: LUMBAR SPINE L1-L4 included unless otherwise [...] HCV PCR, S (medicare) (06/01/2016 10:10 AM POWDER GUARD) HXHCV Ab [facility] Negative Negative POWERCHART Comment: Esoyhf-ba-fqogmj ratio is <1.00. Test Performed by: [place] [address] Turn Supervisor: Giacomo Gatica II, M.D., Ph.D. Blood 06/01/2016 10:1 0 AM POWDER GUARD Luisa Roy M.D. LAB MICR OBIOLOGY - BLOOD ORDERABLES POWERCHART from Last 3 Months or Most Recently Relevant to Health Maintenance Care Teams Weight Count Operator Relationship Specialty Start Date End Date Tigre Preciado P.A.-C., P.A. PCP - General Family Medicine 10/11/19
--- OUTSIDE RECORDS SUMMARY | 2023-10-25 09:07 | XMS_ITS | Encounter Summary ---
Author Organization [facility] Address [address] [place] [address] Care Team Providers Care Fitness Manager Name Role Phone Tigre Preciado P.A.-C., P.A. Primary Care Pr ovider Reason for Visit * Episode Based Medications (Routine) - Closed Specialty Diagnoses / Procedures Referred By Contac t Referred To Contact Diagnoses Osteoporosis Procedures WI ZOLEDRONIC ACID 1MG zoledronic acid (RECLAST) Duncan Mcgraw M.D. [address] [place] [phone] [address] [place] [address] [place] [phone] Referral ID Status Reason Start Date Expiration Date Visits Re quested Visits Authorized [id number] Closed 07/02/2023 04/18/2024 1 1 Encounter Details Date Type Department Care Team (Late st Contact Info) Description 09/02/2023 10:15 AM CDT Infusion Department of Infusion Therapy in [place], [place] [address] [place] [phone] Duncan Mcgraw M.D. [address] [place] [phone] Osteoporosis (Primary Dx) Social History Tobacco [...] Date Recorded PHQ-2 Score 0 06/26/2021 [facility] [place] [facility] - Occupational Stress Questionnaire [...] 09/02/2023 10:49 AM CDT 3 mL zoledronic yzmd-rmqqiymh-pvrym IVPB 5 mg (RECLAST) 5 mg, intravenous, [...] Total Score: 1 06/02/19 18 9:34 AM CRISIS COUNSELOR documented as of this encounter Care Teams Fitness Manager Relationship Specialty Start Date End Date Tigre Preciado P.A.-C., P.A. PCP - General Family Medicine 10/11/19 documented as of this encounter
--- OUTSIDE RECORDS SUMMARY | 2023-10-25 09:07 | XMS_ITS ---
Author Organization [facility] Address [address] [place] [address] Care Team Providers Care Sales Record Clerk Name Role Phone Unavailable Unavailable Unavailable Surgery Details Not on file Complications Check Surgery Details section. Procedure Estimated Blood Loss Check Surgery Details section. Procedure Findings Check Surgery Details section. Procedure Specimens Taken Check Surgery Details section.
--- OUTSIDE RECORDS SUMMARY | 2023-10-25 09:08 | XMS_ITS | Clinical Summary ---
Author Organization 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 We also discussed management options with vaginal estrogen therapy, pessary, or surgical intervention. She is not interested in these options at this time. I recommend she follow up as needed in the future. Osteoporosis 07/20/2017 Personal history of colonic polyps 11/10/2012 Reactive airway disease 07/12/2009 Headache(784.0) 01/09/2009 Immunizations Name Administration Dates Next Due COVID-19 vaccine (Hythiam 30mcg/0.3mL) P F, MDV 02/24/2021 Influenza, IIV3 [...] 159 cm (5' 2.6) 02/29/2020 12:48 PM HEDIS ABSTRACTOR Body Mass Index 22.61 02/29/2020 12:48 PM HEDIS ABSTRACTOR Plan of Treatment Health Maintenance Due Date [...] Code Status Discussion: Not Discussed Care Teams Pack Master Relationship Specialty Start Date End Date Kanchan Granda HEALTH THERAPIST [address] [facility] [place] [address] PCP - General Emergency Medicine 06/02/23
--- OUTSIDE RECORDS SUMMARY | 2023-10-25 09:08 | XMS_ITS | Encounter Summary ---
Author Organization [facility] Address [address] [place] [address] Care Team Providers Care Scientist Engineer Name Role Phone Tigre Preciado P.A.-C., P.A. Primary Care Pr ovider Encounter Details Date Type Department Care Team (Late st Contact Info) Description 07/22/2023 Orders Only Division of Endocrinology in [place], [place] [address] [place] [phone] Duncan Mcgraw M.D. [address] [place] [phone] Social History Tobacco Use Types Packs/Day Years [...] Answer Date Recorded PHQ-2 Score 0 06/26/2021 [facility] [place] of Occupat ional Health - Occupational Stress [...] Total Score: 1 06/02/19 18 9:34 AM SURVEYING CREW STAKE RUNNER documented as of this encounter Care Teams Scientist Engineer Relationship Specialty Start Date End Date Tigre Preciado P.A.-C., P.A. PCP - General Family Medicine 10/11/19 documented as of this encounter
--- OUTSIDE RECORDS SUMMARY | 2023-10-25 09:08 | XMS_ITS | Encounter Summary ---
Author Organization [facility] Address [address] [place] [address] Care Team Providers Care Stencil Printer Name Role Phone Tigre Preciado P.A.-C., P.A. Primary Care Pr ovider Reason for Referral * Outpatient (Routine) - Authorized Specialty Diagnoses / Procedures Referred By Contac t Referred To Contact Tigre Preciado P.A.-C., P.A. [address] [place] [address] [facility] Region Referral ID Status Reason Start Date Expiration Date V isits Requested Visits Authorized [id number] Authorized 08/24/2023 02/22/2025 1 1 Scheduling Instructions [...] Answer Date Recorded PHQ-2 Score 0 06/26/2021 [facility] - Occupational Stress Questionnaire Answer [...] Schedule Primary Care nurse visit (clinic) - [facility] Region; Medicare Annual Wellness Outpatient Referral Routine Expected: 09/21/2023, Expires: 02/20/2024 documented as of this encounter Visit Diagnoses Not on filedocumented in this encounter Additional Health Concerns Assessment Noted Time PHQ-9 Depression Total Score: 1 02/14/20 18 9:34 AM BUNDLE TIER AND LABELER documented as of this encounter Care Teams Stencil Printer Relationship Specialty Start Date End Date Tigre Preciado P.A.-C., P.A. PCP - General Family Medicine 10/11/19 documented as of this encounter
--- OUTSIDE RECORDS SUMMARY | 2023-10-25 09:08 | XMS_ITS | Encounter Summary ---
Author Organization [facility] Address [address] [place] [address] Care Team Providers Care Graduate Student Instructor Name Role Phone Tigre Preciado P.A.-C., P.A. Primary Care Pr ovider Reason for Visit * Reason Onset Date Comments Reclast 07/22/2023 Encounter Details Date Type Department Care Team (Latest Contact Info) Description 07/22/2023 Clinical Communication Division of Endocrinology in [place], [place] [address] [place] [address] Duncan Mcgraw M.D. [address] [place] [phone] Reclast Social History Tobacco Use Types Packs/Day [...] Answer Date Recorded PHQ-2 Score 0 06/26/2021 [facility] [place] of Occupat ional Health - Occupational Stress [...] Total Score: 1 06/02/19 18 9:34 AM OUTREACH CONSULTANT documented as of this encounter Care Teams Graduate Student Instructor Relationship Specialty Start Date End Date Tigre Preciado P.A.-C., P.A. PCP - General Family Medicine 10/11/19 documented as of this encounter
--- OUTSIDE RECORDS SUMMARY | 2023-10-25 09:08 | XMS_ITS | Encounter Summary ---
Author Organization [facility] Address [address] [place] [address] Care Team Providers Care Poll Clerk Name Role Phone Tigre Preciado P.A.-C., P.A. Primary Care Pr ovider Reason for Referral * Outpatient (Routine) - Authorized Specialty Diagnoses / Procedures Referred By Contac t Referred To Contact Endocrinology Diagnoses Osteoporosis Duncan Mcgraw M.D. [address] [place] [phone] [facility] Referral ID Status Reason Start Date Expiration Date V isits Requested Visits Authorized [id number] Authorized 07/02/2023 12/31/2024 1 1 Scheduling Instructions May see [facility] or any bone MD * Outpatient (Routine) - Authorized Specialty Diagnoses / Procedures Referred By Contac t Referred To Contact Diagnoses Osteoporosis Procedures BMD Bone Density Spine Hips Duncan Mcgraw M.D. [address] [place] [address] [facility] Referral ID Status Reason Start Date Expiration Date V isits Requested Visits Authorized [id number] Authorized 07/02/2023 07/01/2024 1 1 Encounter Details Date Type Department Care Team (Late st Contact Info) Description 07/02/2023 Orders Only Division of Endocrinology in [place], [place] [address] [place] [phone] Duncan Mcgraw M.D. [address] [place] [address] Osteoporosis (Primary Dx) Social History Tobacco Use [...] Total Score: 1 06/02/19 18 9:34 AM LINE UP WORKER documented as of this encounter Care Teams Poll Clerk Relationship Specialty Start Date End Date Tigre Preciado P.A.-C., P.A. PCP - General Family Medicine 10/11/19 documented as of this encounter
--- NOTE | 2023-10-25 10:27 | W.ANESCHARGE ---
Anesthesia Charges Start Date/Time Anesthesia Start Date: 10/25/23 Anesthesia Start Time: 11:05 Stop Date/Time Anesthesia Stop Date: 10/25/23 Anesthesia Stop Time: 12:08 Summary Extremes of Age - Over 70 or under 1: MDA
--- NOTE | 2023-10-25 12:09 | W.ANESCHARGE ---
Anesthesia Charges Start Date/Time Anesthesia Start Date: 10/25/23 Anesthesia Start Time: 11:05 Stop Date/Time Anesthesia Stop Date: 10/25/23 Anesthesia Stop Time: 12:08
== END 2023-10-25 09:05 | disposition home or self-care (01) ==
LOC: OP CLINIC 09:04
PROVIDERS: PCP Nurse Practitioner Family; Visit Provider Surgery
DX: R19.4 Change in bowel habit (principal); K63.5 Polyp of colon; K57.30 Diverticulosis of large intestine without perforation or abscess without bleeding; K44.9 Diaphragmatic hernia without obstruction or gangrene; R19.8 Other specified symptoms and signs involving the digestive system and abdomen
CPT/HCPCS: 00813; 43239; 45380; 45385; 88305; 99100; J2704

== ENCOUNTER 2023-12-27 17:08 | Outpatient (CLI) | payer MEDICARE, SELFPAY ==
--- OUTSIDE RECORDS SUMMARY | 2023-12-27 09:42 | XMS_ITS | Clinical Summary ---
Author Organization [facility] Address [address] [place] [address] Care Team Providers Care Crotch Breaker Name Role Phone Tigre Preciado P.A.-C. Primary Care Provider Source Comments Patient records contain information from all sites at [facility]. For routine questions regarding patient records, call [phone] during business hours, M-F 8:00 AM - 5:00 PM Central Time. Record requests for emergency care only can be directed to [phone] at any time.[facility] Allergies Active Allergy Reactions Criticality Noted [...] 400 mg by mouth daily. Active vitamin A,C,K-yzympl-njpsx als (OCUVITE W/LUTEIN) 1,000 Unit-200 mg-60 Unit-2 [...] wheezing. 8 g 3 07/02/2021 Active zoledronic ocds-grhuiuuY-kwvn r (RECLAST) 5 mg/100 mL piggyback Infuse [...] 01/26 Fatigue 08/15/2022 Osteoporosis 07/03/2022 Cystocele 12/01/2019 Overview (12/01/2019): Grade 2-3 cystocele present. Prefers to manage with referral to [facility] and accupuncture at this time. Assessment & Plan (12/01/2019 8:33 AM CDT): Referral to [facility] was completed in faxed. She will continue to work with her current dentist. We also discussed management options with vaginal [...] Date Resolved Date Cheilitis Angular 12/01/2019 12/30/2020 Overview (12/01/2019): Prescription for miconazole 2% ointment was faxed [...] Score 0 06/26/2021 [facility] [place] of Occupat ional Health - Occupational Stress [...] 56.7 kg (125 lb) 05/16/2023 2:41 PM REFUGE MANAGER Height 160.3 cm (5' 3.11) 05/26/2022 9:30 AM CS T Body Mass Index 22.07 05/26/2022 9:30 AM REFUGE MANAGER Plan of Treatment Health Maintenance Due Date Last Done Comments Visit: Medicare Annual Wellness 1945 Zoster Vaccines (1 of 2) 1997 Depression Screening (Annual PHQ-2) 04/19/2023 Fall Risk Screen (Annual) 04/19/2023 COVID-19 Vaccine (2022-05 4 season) 2023 03/29/2023, 04/03/2022, 10/17/2021, Additional [...] OUTSIDE MG MAMMOGRAM Routine 04/01/2022 2:35 PM REFUGE MANAGER BMD BONE DENSITY SPINE HIPS RAD - Routine (most inpatients and all outpatients) 07/01/2017 1:41 PM CDT Screening Osteoporosis HCV AB SCRN W/REFLEX TO HCV PCR, S Routine 06/01/2016 10:10 AM REFUGE MANAGER from Last 3 Months or Most Recently Relevant to Health Maintenance Results * MM screening mammo BI-Outside Mammogram (04/01/2022 2:35 PM REFUGE MANAGER) Narrative IIMS - 07/03/2022 2:31 PM CDT [...] DENSITY SPINE HIPS COMPARISON: 2012, 2007, 2005 Performing Artist/Model: [employer] FINDINGS: ?? LUMBAR SPINE L1-L4 included unless [...] DENSITY SPINE HIPS COMPARISON: 2012, 2007, 2005 Performing Artist/Model: LOC&ALL FINDINGS: LUMBAR SPINE L1-L4 included unless otherwise [...] HCV PCR, S (medicare) (06/01/2016 10:10 AM REFUGE MANAGER) HXHCV Ab [facility] Negative Negative POWERCHART Comment: Vcbqke-sy-wmdrjh ratio is <1.00. Test Performed by: [facility] [place] [address] Sandblaster Supervisor: Giacomo Gatica II, M.D., Ph.D. Blood 06/01/2016 10:1 0 AM REFUGE MANAGER Luisa Roy M.D. LAB MICR OBIOLOGY - BLOOD ORDERABLES POWERCHART from Last 3 Months or Most Recently Relevant to Health Maintenance Care Teams Crotch Breaker Relationship Specialty Start Date End Date Tigre Preciado P.A.-C. PCP - General Family Medicine 10/11/19
--- OUTSIDE RECORDS SUMMARY | 2023-12-27 09:42 | XMS_ITS | Referral Summary ---
Author Organization [facility] Address [address] [place] [address] Care Team Providers Care Proprietary Trader Name Role Phone Tigre Preciado P.A.-C. Primary Care Provider Source Comments Patient records contain information from all sites at [facility]. For routine questions regarding patient records, call [phone] during business hours, M-F 8:00 AM - 5:00 PM Central Time. Record requests for emergency care only can be directed to [phone] at any time.[facility] Allergies Active Allergy Reactions Criticality Noted [...] 400 mg by mouth daily. Active vitamin A,C,X-wcekaz-aupms als (OCUVITE W/LUTEIN) 1,000 Unit-200 mg-60 Unit-2 [...] wheezing. 8 g 3 07/02/2021 Active zoledronic hxph-dhuzovfM-resp r (RECLAST) 5 mg/100 mL piggyback Infuse [...] will continue to work with her current eye clinic manager. We also discussed management options with vaginal [...] Answer Date Recorded PHQ-2 Score 0 06/26/2021 [facility] [place] of Occupat ional Health - Occupational [...] 56.7 kg (125 lb) 05/16/2023 2:41 PM DIRECTOR OF DEVELOPMENT Height 160.3 cm (5' 3.11) 05/26/2022 9:30 AM CS T Body Mass Index 22.07 05/26/2022 9:30 AM DIRECTOR OF DEVELOPMENT Plan of Treatment Not on file Procedures Procedure Name Priority Date/Time Associated Diagnosis Comments OUTSIDE MG MAMMOGRAM Routine 04/01/2022 2:35 PM DIRECTOR OF DEVELOPMENT BMD BONE DENSITY SPINE HIPS RAD - Routine (most inpatients and all outpatients) 07/01/2017 1:41 PM CDT Screening Osteoporosis HCV AB SCRN W/REFLEX TO HCV PCR, S Routine 06/01/2016 10:10 AM DIRECTOR OF DEVELOPMENT from Last 3 Months or Most Recently Relevant to Health Maintenance Results * MM screening mammo BI-Outside Mammogram (04/01/2022 2:35 PM DIRECTOR OF DEVELOPMENT) Narrative IIMS - 07/03/2022 2:31 PM CDT [...] DENSITY SPINE HIPS COMPARISON: 2012, 2007, 2005 Audit Analyst/Model: [employer] FINDINGS: ?? LUMBAR SPINE L1-L4 included unless [...] DENSITY SPINE HIPS COMPARISON: 2012, 2007, 2005 Audit Analyst/Model: [employer] FINDINGS: LUMBAR SPINE L1-L4 included unless otherwise [...] HCV PCR, S (medicare) (06/01/2016 10:10 AM DIRECTOR OF DEVELOPMENT) HXHCV Ab [facility] Negative Negative POWERCHART Comment: Ihrvkk-zi-yzhyhc ratio is <1.00. Test Performed by: [place] [address] Skiver Counter: Giacomo Gatica II, M.D., Ph.D. Blood 06/01/2016 10:1 0 AM DIRECTOR OF DEVELOPMENT Luisa Roy M.D. LAB MICR OBIOLOGY - BLOOD ORDERABLES POWERCHART from Last 3 Months or Most Recently Relevant to Health Maintenance Care Teams Proprietary Trader Relationship Specialty Start Date End Date Tigre Preciado P.A.-C. PCP - General Family Medicine 10/11/19
--- OUTSIDE RECORDS SUMMARY | 2023-12-27 09:42 | XMS_ITS | Clinical Summary ---
Author Organization [facility] Address [place], [place] [address] Care Team Providers Care Seed Buyer Name Role Phone Kanchan Granda NP Primary Care Provider [phone] Allergies Active Allergy Reactions Criticality Noted Date [...] PRN, Reported on 01/16/2020 vit A,C and K-xscbsw-zocpyptr (OCUVITE WITH LUTEIN) 1,000 unit-200 mg-60 unit-2 [...] Noted Date Diagnosed Date Angular cheilitis 12/01/2019 Overview (11/07/2020): Prescription for miconazole 2% ointment was faxed to her pharmacy and she will apply 2 times daily for up to 30 days. If symptoms do not improve I recommend she follow up with her primary care provider or contact me. At this point she has no additional concerns or questions and is agreeable to this plan of care. Female bladder prolapse 12/01/2019 Overview (11/07/2020): Grade 2-3 cystocele present. Prefers to manage with referral to [facility] and accupuncture at this time. Last Assessment & Plan: Referral to [facility] was completed in faxed. 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 We also discussed management options with vaginal estrogen therapy, pessary, or surgical intervention. She is not interested in these options at this time. I recommend she follow up as needed in the future. Osteoporosis 07/20/2017 Personal history of colonic polyps 11/10/2012 Reactive airway disease 07/12/2009 Headache(784.0) 01/09/2009 Encounters Date Type Department Care Team Description 10/25/2023 Lab Requisition [facility] [phone] Heather Jackson MD from Last 3 Months Immunizations Name Administration Dates Next Due COVID-19 vaccine (BarEye 30mcg/0.3mL) Noel FMITCH 02/24/2021 Influenza, IIV3 (Age >=3 years) 01/21/2009 [...] 159 cm (5' 2.6) 02/29/2020 12:48 PM CONTINUOUS DRYOUT OPERATOR Body Mass Index 22.61 02/29/2020 12:48 PM CONTINUOUS DRYOUT OPERATOR Plan of Treatment Health Maintenance Due Date Last Done Comments BMI (ht and wt on same day) for age 18+ 1965 Hepatitis C screening for age 18-79 1965 Zoster (shingles) series for age 50+ (1 of 2) 1997 RSV vaccine for adults or pr egnancy (1 - 1-dose 60+ series) 2007 DEXA/DXA scan for age 65+ 2012 Medicare Wellness for age 65+ 2012 Pneumococcal series for age 65+ (1 of 1 - PCV) 2012 Tetanus booster 01/23/2013 01/23/2003 Depression screening for age 12+ 11/22/2018 11/23/19 18 COVID-19 vaccine series ( season) 2023 02/24/2021, 07/04/2020, 06/06/2020 Influenza for age 65+ 12/19/2023 02/03/2021 , 02/19/2020, 01/21/2009 Tdap Completed 01/23/2003 Procedures Procedure Name Priority Date/Time Associated Diagnosis Comments LAB TRACKING EVENT Routine 10/25/2023 11 :10 AM CDT PATH TISSUE EXAM Routine 10/25/2023 11:1 0 AM CDT from Last 3 Months Results * LAB TRACKING EVENT (10/25/2023 11:10 AM CDT) Other (Other) Client Collect / Unknown 10/25/2023 11:10 AM CDT 10/25/2023 9:51 PM CDT Heather Jackson MD [facility] ONLY [facility] [address] [place] [address], * PATH TISSUE EXAM (10/25/2023 11:10 AM CDT) Case Report Pathology Report ?Case: [id number] ? Authorizing Provider: ??Heather Jackson MD ??Collected: ? 10/25/2023 1110 ? Ordering Location: ? [facility] ?Received: ?10/26/2023 0803 ? Pathologist: ? Ashli, Levi, ? Specimens: ?? A) - Stomach Biopsy ? B) - Stomach Biopsy ? C) - Colon Biopsy ? D) - Hepatic Flexure Polyp ? 10/27/2023 9:41 AM T [facility]AL LABORATORY Final Diagnosis A) STOMACH, BIOPSY: 1. Gastric body mucosa with no diagnostic abnormalities 2. Negative for Helicobacter B) STOMACH, HIATAL HERNIA, BIOPSY: 1. Gastric body mucosa with no diagnostic abnormalities 2. Negative for Helicobacter C) COLON, RANDOM, BIOPSY: 1. Patchy mild surface intraepithelial lymphocytosis suggestive of lymphocytic colitis 2. See comment D) COLON, HEPATIC FLEXURE, POLYPECTOMIES: 1. Tubular adenoma (1) and sessile serrated adenoma (1) 2. Negative for high grade dysplasia 3. Per the colonoscopy report: ?? a. Polyp sizes: 6 mm - 8 mm ?? b. Resection: Complete ?? c. Retrieval: Complete 10/27/2023 9:41 AM T [facility]-C ENTRAL LABORATORY Comment C) There is mild intraepithelial lymphocytosis that is suggestive, but not entirely diagnostic of the lymphocytic colitis form of microscopic colitis. The diagnosis of microscopic colitis would be further supported if there is a history of chronic watery diarrhea and if the colonic mucosa had a normal/near normal appearance endoscopically. Occasionally prolonged infectious diarrhea that occurs in outbreaks ([place] diarrhea) can show similar histologic changes. Some cases of lymphocytic colitis have been associated with medication use; high likelihood associations include NSAIDs, ASA, lansoprazole, ranitidine, sertraline, ticlopidine, and acarbose, with many other medications having been implicated as well. 10/27/2023 9:41 AM T [facility]ORAT[facility] Clinical Information Upper abdominal symptoms. Change in bowel habits. Upper GI endoscopy showed irregular Z-line. Small area of ulceration in hiatal hernia. Colonoscopy showed polyps. 10/27/2023 9:41 AM CDT [facility] Gross Description A) Received in formalin are 4 castellanos mucosal fragments ranging from 2 mm to 4 mm in greatest dimension, which are entirely submitted in one cassette. It is labeled with the patient's name and designated random stomach BXs. B) Received in formalin are 3 castellanos mucosal fragments averaging 4 mm in greatest dimension, which are entirely submitted in one cassette. It is labeled with the patient's name and designated hiatal hernia BXs. C) Received in formalin are 7 castellanos mucosal fragments averaging 4 mm in greatest dimension, which are entirely submitted in one cassette. It is labeled with the patient's name and designated random colon BXs. D) Received in formalin are 7 castellanos mucosal fragments ranging from 2 mm to 5 mm in greatest dimension, which are entirely submitted in one cassette. It is labeled with the patient's name and designated hepatic flexure polyps. Radha Terrell 10/26/2023 12:39 PM 10/27/2023 9:41 AM CDT [facility] Microscopic Description The final diagnosis is based on microscopic examination of appropriate sections of all specimens. 10/27/2023 9:41 AM CDT [facility] Additional Information Interpreted at [facility] Laboratory - [address] [facility] [address], [place] [address] 10/27/2023 9:41 AM CDT [facility] Other (Stomach Biopsy) 10/25/2023 11:10 AM CDT 10/26/2023 8:03 AM CDT Specimen (specimen) (Stomach Biopsy) 10/25/2023 11:10 AM CDT 10/26/2023 8:03 AM CDT Specimen (specimen) (Colon Biopsy) 10/25/2023 11:10 AM CDT 10/26/2023 8:03 AM CDT Specimen (specimen) (Hepatic Flexure Polyp) 10/25/2023 11:10 AM CDT 10/26/2023 8:03 AM CDT Heather Jackson MD PATHOLOGY/[facility] [address] [place] [address], from Last 3 Months Advance Directives * Full Code (Latest Code Status on File) Date Activated Date Inactivated Comments 03/13/2020 7:36 AM 03/13/2020 1:19 PM Question Answer Comments Code Status Discussion: Not Discussed Care Teams Seed Buyer Relationship Specialty Start Date End Date Kanchan Granda NP [address] [facility] [place] [address] PCP - General Emergency Medicine 06/02/23
--- OUTSIDE RECORDS SUMMARY | 2023-12-27 09:42 | XMS_ITS ---
Author Organization [facility] Address [address] [place] [address] Care Team Providers Care Area Cleaner Name Role Phone Unavailable Unavailable Unavailable Surgery Details Not on file Complications Check Surgery Details section. Procedure Estimated Blood Loss Check Surgery Details section. Procedure Findings Check Surgery Details section. Procedure Specimens Taken Check Surgery Details section.
== END 2023-12-27 17:09 | disposition home or self-care (01) ==
PROVIDERS: PCP Nurse Practitioner Family; Visit Provider Nurse Practitioner Family
DX: R19.7 Diarrhea, unspecified (principal); R14.0 Abdominal distension (gaseous); K52.839 Microscopic colitis, unspecified
CPT/HCPCS: 87045; 87046; 87177; 87209; 87427; 87493; 87505

== ENCOUNTER 2024-02-29 09:31 | Outpatient (CLI) | payer MEDICARE, SELFPAY ==
--- OUTSIDE RECORDS SUMMARY | 2024-02-29 09:35 | XMS_ITS | Clinical Summary ---
Author Organization [facility] Address [address] [place] [address] Care Team Providers Care Sap Senior Developer Name Role Phone Tigre Preciado P.A.-C. Primary Care Provider Source Comments Patient records contain information from all sites at [facility]. For routine questions regarding patient records, call [phone] during business hours, M-F 8:00 AM - 5:00 PM Central Time. Record requests for emergency care only can be directed to [phone] at any time.[facility] Allergies Active Allergy Reactions Criticality Noted Date [...] (Sulfonamide Antibiotics) Nausea Only Low 02/28/2013 Medications CRANBERRY FRUIT EXTRACT (CRANBERRY ORAL) Take 2 tablets by mouth 3 (three) times a day as needed. 7 Active LACTOBACILLUS ACIDOPHILUS (ACIDOPHILUS ORAL) Take by mouth daily. 3 Active calcium carbonate-vitami n D3 1,250 mg (500 mg calcium)-400 unit per chewable tablet Chew 1 tablet. 0 Active multivitamin tablet Take 1 tablet by mouth daily. 0 Active magnesium 200 mg tablet Take 400 mg by mouth daily. Active vitamin A,C,J-omvsgu-cdw erals (OCUVITE W/LUTEIN) 1,000 Unit-200 mg-60 Unit-2 mg tablet Take 1 tablet by mouth as needed. Active dicyclomine (BENTYL) 10 mg capsule Take 1 capsule (10 mg total) by mouth 4 (four) times a day as needed (abdominal pain or cramps). 180 capsule 3 1 Active nystatin (MYCOSTATIN) 100,000 unit/mL suspension Take 5 mL (500,000 Units total) by mouth 4 (four) times a day. Swish in mouth and swallow 280 mL 2 Active Additional Information Patient taking differently:500,000 Units oralAs needed, Swish in mouth and swallow, Reported on 07/23/2022 albuterol 90 mcg/actuation inhaler Inhale 2 puffs every 4 (four) hours as needed for wheezing. 8 g 3 2 Active zoledronic ckpl-ewbrefgK-mz ter (RECLAST) 5 mg/100 mL piggyback Infuse 5 mg into a venous catheter once. Once yearly- last dose 06/10/22 Active SUMAtriptan (IMITREX) 25 mg tablet TAKE 1 TABLET BY MOUTH NEEDED FOR MIGRAINE. MAY REPEAT DOSE ONCE IN 2 HOURS IF MIGRAINE UNRESOLVED. 9 tablet 5 3 Active azithromycin (ZITHROMAX) 250 mg tablet Take 1 tablet by mouth as directed. BRONCHITIS 3 Active montelukast (SINGULAIR) 10 mg tablet Take 1 tablet (10 mg total) by mouth at bedtime. 90 tablet 3 3 Active estrogens, conjugated, (Premarin) 1 g (0.625 mg/gram) vaginal cream Insert 1 g into the vagina 3 (three) times a week. At bedtime. May apply with applicator or fingertip 30 g 8 3 Active Paxlovid 300 mg (150 mg x 2)-100 mg dose pack Take 3 tablets by mouth 2 (two) times a day. 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 Prefers to manage with referral to [facility] and accupuncture at this time. Assessment & Plan (12/01/2019 8:33 AM CDT): Referral to [facility] was completed in faxed. She will continue to work with her current patient care coordinator. We also discussed management options with vaginal estrogen therapy, pessary, or surgical intervention. She is not interested in these options at this time. I recommend she follow up as needed in the future. Hyponatremia 11/13/2019 Neuropathy Peripheral 06/14/2018 Osteoporosis Without Pathological Fracture 07/20 Anxiety 03/19/2013 Polyp Colon Personal History, Unspecified Type 0 11/10/2012 Asthma 07/12/2009 Resolved Problems Problem Noted [...] PHQ-2 Score 0 06/26/2021 [facility] [place] of Occupat ional Health - Occupational Stress [...] Recorded Dental: Regular Dentist Unknown 06/07/19 21 Comments No Sex and Gender Information Value Date Recorded Sex Assigned at Female 01/14/2021 8:28 AM CDT Legal Sex Female 2:28 PM RIGGER CHIEF Gender Identity Not on file Sexual Orientation [...] 56.7 kg (125 lb) 05/16/2023 2:41 PM RIGGER CHIEF Height 160.3 cm (5' 3.11) 05/26/2022 9:30 AM CS T Body Mass Index 22.07 05/26/2022 9:30 AM RIGGER CHIEF Plan of Treatment Health Maintenance Due Date Last Done Comments Visit: Medicare Annual Wellness 1945 Zoster Vaccines (1 of 2) 1997 RSV vaccine - (32-36 weeks) or 60+ years (1 - 1-dose 75+ series) 2022 Depression Screening (Annual PHQ-2) 04/19/2023 Fall Risk Screen (Annual) 04/19/2023 COVID-19 Vaccine ( season) 2023 03/29/2023, 04/03/2022, 10/17/2021, Additional history exists Influenza Vaccine (#1) 2024 , 01/19/2022, 02/03/2021, Additional history exists Bone Density Scan Monitoring 02/24/2024 02/23/2022 (Performed elsewhere), 07/01/2017 Visit: Annual, age 65+ (or Medicare and <65) 05/16/2024 05/16/2023 DTaP,Tdap,and Td Vaccines (3 - Td or Tdap) 01/21/2033 01/21/2023, 04/03/2013, 01/23/2003 Pneumococcal vaccine (65+ years) Completed 05/29/2014, 04/08/2012 Hepatitis C Screening Completed 06/01/2016 Colonoscopy Discontinued 03/13/2020, 10/18, 11/10/2012 Colorectal Cancer Surveillance Discontinued Mammogram Discontinued 04/01/2022, 08/2020, 11/21/2019, Additional history exists CT Colonography Discontinued Cologuard Discontinued IPV Vaccines Aged Out No longer eligi ble based on patient's age to complete this topic Procedures Procedure Name Priority Date/Time Associated Diagnosis Comments OUTSIDE MG MAMMOGRAM Routine 04/01/2022 2:35 PM RIGGER CHIEF BMD BONE DENSITY SPINE HIPS RAD - Routine (most inpatients and all outpatients) 07/01/2017 1:41 PM CDT Screening Osteoporosis HCV AB SCRN W/REFLEX TO HCV PCR, S Routine 06/01/2016 10:10 AM RIGGER CHIEF from Last 3 Months or Most Recently Relevant to Health Maintenance Results * MM screening mammo BI-Outside Mammogram (04/01/2022 2:35 PM RIGGER CHIEF) Narrative IIMS - 07/03/2022 2:31 PM CDT This order has been created and auto-finalized to support the import of outside images. If available, original interpretation can be found on the Media Tab in Chart Review, in Document Viewer, or as an image in QREADS. If a re-interpretation or overread is required please follow defined workflow. ?? us Provider Not In System IMG BI PROCEDURES Final R esult IIMS NA * BMD Bone Density Spine Hips (07/01/2017 1:41 PM CDT) Anatomical Region Laterality Modality Hip, Lumbar Spine N/A Radiographic I maging 07/01/2017 2:57 PM CDT Impressions 07/01/2017 2:59 PM CDT Impression: Osteoporosis. Narrative 07/01/2017 2:59 PM CDT EXAM: BMD BONE DENSITY SPINE HIPS COMPARISON: 2012, 2007, 2005 Can Marker/Model: [employer] FINDINGS: ?? LUMBAR SPINE L1-L4 included unless [...] DENSITY SPINE HIPS COMPARISON: 2012, 2007, 2005 Can Marker/Model: [employer] FINDINGS: LUMBAR SPINE L1-L4 included unless otherwise [...] Impression: Osteoporosis. Luisa Roy M.D. IMG DXA PROCEDUR ES Final Result * HCV Ab w/Reflex to HCV PCR, S (medicare) (06/01/2016 10:10 AM RIGGER CHIEF) HXHCV Ab [facility] Negative Negative POWERCHART Comment: Bqwdwt-gq-mxhqxa ratio is <1.00. Test Performed by: [place] [address] Employment Law Attorney: Giacomo Gatica II, M.D., Ph.D. Blood 06/01/2016 10:1 0 AM RIGGER CHIEF Luisa Roy M.D. LAB MICROBIOLOGY - BLOOD ORDERABLES Final Result POWERCHART from Last 3 Months or Most Recently Relevant to Health Maintenance Insurance [facility] Care Teams Sap Senior Developer Relationship Specialty Start Date End Date Tigre Preciado P.A.-C. PCP - General Family Medicine 10/11/19
--- OUTSIDE RECORDS SUMMARY | 2024-02-29 09:36 | XMS_ITS | Referral Summary ---
Author Organization [facility] Address [address] [place] [address] Care Team Providers Care Skylights Assembler Name Role Phone Tigre Preciado P.A.-C. Primary Care Provider Source Comments Patient records contain information from all sites at [facility]. For routine questions regarding patient records, call [phone] during business hours, M-F 8:00 AM - 5:00 PM Central Time. Record requests for emergency care only can be directed to [phone] at any time.[facility] Allergies Active Allergy Reactions Criticality [...] 400 mg by mouth daily. Active vitamin A,C,H-eefjkw-xhd erals (OCUVITE W/LUTEIN) 1,000 Unit-200 mg-60 Unit-2 [...] wheezing. 8 g 3 2 Active zoledronic opqb-ruekmihE-sl ter (RECLAST) 5 mg/100 mL piggyback Infuse [...] will continue to work with her current foreign policy officer. We also discussed management options with vaginal [...] Answer Date Recorded PHQ-2 Score 0 06/26/2021 [facility] of Occupat ional Health - [...] AM CDT Legal Sex Female 2:28 PM IT SERVICE CONTINUITY SUPERVISOR Gender Identity Not on file Sexual Orientation [...] 56.7 kg (125 lb) 05/16/2023 2:41 PM IT SERVICE CONTINUITY SUPERVISOR Height 160.3 cm (5' 3.11) 05/26/2022 9:30 AM CS T Body Mass Index 22.07 05/26/2022 9:30 AM IT SERVICE CONTINUITY SUPERVISOR Plan of Treatment Not on file Procedures Procedure Name Priority Date/Time Associated Diagnosis Comments OUTSIDE MG MAMMOGRAM Routine 04/01/2022 2:35 PM IT SERVICE CONTINUITY SUPERVISOR BMD BONE DENSITY SPINE HIPS RAD - Routine (most inpatients and all outpatients) 07/01/2017 1:41 PM CDT Screening Osteoporosis HCV AB SCRN W/REFLEX TO HCV PCR, S Routine 06/01/2016 10:10 AM IT SERVICE CONTINUITY SUPERVISOR from Last 3 Months or Most Recently Relevant to Health Maintenance Results * MM screening mammo BI-Outside Mammogram (04/01/2022 2:35 PM IT SERVICE CONTINUITY SUPERVISOR) Narrative IIMS - 07/03/2022 2:31 PM CDT [...] System IMG BI PROCEDURES Final R esult IIWV NA * BMD Bone Density Spine Hips (07/01/2017 1:41 PM CDT) Anatomical Region Laterality Modality Hip, Lumbar Spine N/A Radiographic I maging 07/01/2017 2:57 PM CDT Impressions 07/01/2017 2:59 PM CDT Impression: Osteoporosis. Narrative 07/01/2017 2:59 PM CDT EXAM: BMD BONE DENSITY SPINE HIPS COMPARISON: 2012, 2007, 2005 Roller Die Cutting Machine Operator/Model: [employer] FINDINGS: ?? LUMBAR SPINE L1-L4 included unless [...] DENSITY SPINE HIPS COMPARISON: 2012, 2007, 2005 Roller Die Cutting Machine Operator/Model: [employer] FINDINGS: LUMBAR SPINE L1-L4 included unless otherwise [...] HCV PCR, S (medicare) (06/01/2016 10:10 AM IT SERVICE CONTINUITY SUPERVISOR) HXHCV Ab [facility] Negative Negative POWERCHART Comment: Xomzfn-ou-xseupc ratio is <1.00. Test Performed by: [place] [address] Software Sales Representative: Giacomo Gatica II, M.D., Ph.D. Blood 06/01/2016 10:1 0 AM IT SERVICE CONTINUITY SUPERVISOR Luisa Roy M.D. LAB MICROBIOLOGY - BLOOD ORDERABLES Final Result POWERCHART from Last 3 Months or Most Recently Relevant to Health Maintenance Insurance [facility] Care Teams Skylights Assembler Relationship Specialty Start Date End Date Tigre Preciado P.A.-C. PCP - General Family Medicine 10/11/19
--- OUTSIDE RECORDS SUMMARY | 2024-02-29 09:36 | XMS_ITS | Clinical Summary ---
Author Organization [facility] Address [place], [place] [address] Care Team Providers Care Sales Advisor Name Role Phone Kanchan Granda NP Primary Care Provider +1- [phone] Allergies Active Allergy Reactions Criticality Noted Date [...] PRN, Reported on 01/16/2020 vit A,C and B-mgspyb-jepxuzjd (OCUVITE WITH LUTEIN) 1,000 unit-200 mg-60 unit-2 [...] will continue to work with her current solution architect. We also discussed management options with vaginal estrogen therapy, pessary, or surgical intervention. She is not interested in these options at this time. I recommend she follow up as needed in the future. Osteoporosis 07/20/2017 Personal history of colonic polyps 11/10/2012 Reactive airway disease 07/12/2009 Headache(784.0) 01/09/2009 Immunizations Name Administration Dates Next Due COVID-19 vaccine ([employer] 30mcg/0.3mL) P F, MDV 02/24/2021 Influenza, IIV3 [...] 159 cm (5' 2.6) 02/29/2020 12:48 PM PRIMARY THERAPIST Body Mass Index 22.61 02/29/2020 12:48 PM PRIMARY THERAPIST Plan of Treatment Health Maintenance Due Date [...] screening for age 12+ 11/22/2018 11/23/19 18 RSV vaccine for adults or pr egnancy (1 - 1-dose 75+ series) 2022 COVID-19 vaccine series (2023-25 season) 2023 02/24/2021, 07/04/2020, 06/06/2020 Influenza for age 65+ 12/19/2023 02/03/2021 , 02/19/2020, 01/21/2009 Tdap Completed 01/23/2003 Advance Directives * Full Code (Latest Code Status on File) Date Activated Date Inactivated Comments 03/13/2020 7:36 AM 03/13/2020 1:19 PM Question Answer Comments Code Status Discussion: Not Discussed Care Teams Sales Advisor Relationship Specialty Start Date End Date Kanchan Granda NP [address] [place] [address] PCP - General Emergency Medicine 06/02/23
--- OUTSIDE RECORDS SUMMARY | 2024-02-29 09:36 | XMS_ITS ---
Author Organization [facility] Address [address] [place] [address] Care Team Providers Care Tile Trimmer Name Role Phone Unavailable Unavailable Unavailable Surgery Details Not on file Complications Check Surgery Details section. Procedure Estimated Blood Loss Check Surgery Details section. Procedure Findings Check Surgery Details section. Procedure Specimens Taken Check Surgery Details section.
== END 2024-02-29 09:32 | disposition home or self-care (01) ==
PROVIDERS: PCP Nurse Practitioner Family; Visit Provider Nurse Practitioner Family
DX: R53.83 Other fatigue (principal); Z13.6 Encounter for screening for cardiovascular disorders; M81.0 Age-related osteoporosis without current pathological fracture
CPT/HCPCS: 80061; 82306; 84443; 85025

== ENCOUNTER 2024-03-13 15:43 | Outpatient (CLI) | payer MEDICARE, SELFPAY ==
--- OUTSIDE RECORDS SUMMARY | 2024-03-13 15:50 | XMS_ITS | Referral Summary ---
Author Organization [facility] Address [address] [place] [address] Care Team Providers Care Director Of Academic Name Role Phone Tigre Preciado P.A.-C. Primary Care Provider Source Comments Patient records contain information from all sites at [facility]. For routine questions regarding patient records, call [phone] during business hours, M-F 8:00 AM - 5:00 PM Central Time. Record requests for emergency care only can be directed to [phone] at any time.[facility] Allergies Active Allergy Reactions Criticality Noted [...] 400 mg by mouth daily. Active vitamin A,C,V-mibokv-cpw erals (OCUVITE W/LUTEIN) 1,000 Unit-200 mg-60 Unit-2 [...] wheezing. 8 g 3 2 Active zoledronic fegm-lrbqytrO-tj ter (RECLAST) 5 mg/100 mL piggyback Infuse [...] will continue to work with her current network analyst. We also discussed management options with [...] AM CDT Legal Sex Female 2:28 PM AIRCRAFT QUALITY CONTROL INSPECTOR Gender Identity Not on file Sexual Orientation Not on file Last Filed Vital Signs Vital Sign Reading Time Taken Comments Blood Pressure 143/65 09/02/2023 10:32 AM CDT Pulse 89 09/02/2023 10:32 AM CDT Temperature 36.7 C (98.1 F) 09/02/2023 10:32 AM CDT Respiratory Rate 16 09/02/2023 10:32 AM CDT Oxygen Saturation 99% 08/15/2022 12:16 PM CDT Inhaled Oxygen Concentration - - Weight 56.7 kg (125 lb) 05/16/2023 2:41 PM AIRCRAFT QUALITY CONTROL INSPECTOR Height 160.3 cm (5' 3.11) 05/26/2022 9:30 AM CS T Body Mass Index 22.07 05/26/2022 9:30 AM AIRCRAFT QUALITY CONTROL INSPECTOR Plan of Treatment Not on file Procedures Procedure Name Priority Date/Time Associated Diagnosis Comments OUTSIDE MG MAMMOGRAM Routine 04/01/2022 2:35 PM AIRCRAFT QUALITY CONTROL INSPECTOR BMD BONE DENSITY SPINE HIPS RAD - Routine (most inpatients and all outpatients) 07/01/2017 1:41 PM CDT Screening Osteoporosis HCV AB SCRN W/REFLEX TO HCV PCR, S Routine 06/01/2016 10:10 AM AIRCRAFT QUALITY CONTROL INSPECTOR from Last 3 Months or Most Recently Relevant to Health Maintenance Results * MM screening mammo BI-Outside Mammogram (04/01/2022 2:35 PM AIRCRAFT QUALITY CONTROL INSPECTOR) Narrative IIMS - 07/03/2022 2:31 PM CDT This order has been created and auto-finalized to support the import of outside images. If available, original interpretation can be found on the Media Tab in Chart Review, in Document Viewer, or as an image in QREADS. If a re-interpretation or overread is required please follow defined workflow. us Provider Not In System IMG BI PROCEDURES Final R esult JALEESA NA * BMD Bone Density Spine Hips (07/01/2017 1:41 PM CDT) Anatomical Region Laterality Modality Hip, Lumbar Spine N/A Radiographic I maging 07/01/2017 2:57 PM CDT Impressions 07/01/2017 2:59 PM CDT Impression: Osteoporosis. Narrative 07/01/2017 2:59 PM CDT EXAM: BMD BONE DENSITY SPINE HIPS COMPARISON: 2012, 2007, 2005 [place]/Model: Complete Solar FINDINGS: LUMBAR SPINE L1-L4 included unless otherwise [...] last year. Calcium and vitamin D do NOT constitute treatment' in this context. All treatment decisions require clinical judgement and consideration [...] bone density (osteopenia) -2.5 or less Osteoporosis Procedure Note Patric Uriarte M.D. - 07/01/2017 EXAM: BMD BONE DENSITY SPINE HIPS COMPARISON: 2012, 2007, 2005 [place]/Model: Complete Solar FINDINGS: LUMBAR SPINE L1-L4 included unless otherwise [...] less Osteoporosis Impression: Osteoporosis. Luisa Roy M.D. G DXA PROCEDUR ES Final Result * HCV Ab w/Reflex to HCV PCR, S (medicare) (06/01/2016 10:10 AM AIRCRAFT QUALITY CONTROL INSPECTOR) HXHCV Ab [facility] Negative Negative POWERCHART Comment: Qvhnzk-bp-iiyapd ratio is <1.00. Test Performed by: [place] [address] Program Architect: Giacomo Gatica II, M.D., Ph.D. Blood 06/01/2016 10:1 0 AM AIRCRAFT QUALITY CONTROL INSPECTOR Luisa Roy M.D. LAB MICROBIOLOGY - BLOOD ORDERABLES Final Result POWERCHART from Last 3 Months or Most Recently Relevant to Health Maintenance [place] [id number] [facility] Care Teams Director Of Academic Relationship Specialty Start Date End Date Tigre Preciado P.A.-C. [address] [place] [phone] PCP - General Family Medicine 10/11/19
--- OUTSIDE RECORDS SUMMARY | 2024-03-13 15:50 | XMS_ITS ---
Author Organization [facility] Address [address] [place] [address] Care Team Providers Care Treatment Counselor Name Role Phone Unavailable Unavailable Unavailable Surgery Details Not on file Complications Check Surgery Details section. Procedure Estimated Blood Loss Check Surgery Details section. Procedure Findings Check Surgery Details section. Procedure Specimens Taken Check Surgery Details section.
--- OUTSIDE RECORDS SUMMARY | 2024-03-13 15:50 | XMS_ITS | Clinical Summary ---
Author Organization [facility] Address [place], [place] [address] Care Team Providers Care Railroad Shop Inspector Name Role Phone Kanchan Granda NP Primary Care Provider [phone]- [phone] Allergies Active Allergy Reactions Criticality Noted Date [...] PRN, Reported on 01/16/2020 vit A,C and V-kzwomk-fnamikof (OCUVITE WITH LUTEIN) 1,000 unit-200 mg-60 unit-2 [...] will continue to work with her current circular stuffer. We also discussed management options with vaginal estrogen therapy, pessary, or surgical intervention. She is not interested in these options at this time. I recommend she follow up as needed in the future. Osteoporosis 07/20/2017 Personal history of colonic polyps 11/10/2012 Reactive airway disease 07/12/2009 Headache(784.0) 01/09/2009 Immunizations Name Administration Dates Next Due COVID-19 vaccine (ImmusanT 30mcg/0.3mL) P F, MDV 02/24/2021 Influenza, IIV3 [...] 94 02/07/2021 5:40 PM CDT Temperature 36.6 C (97.8 F) 02/07/2021 5:40 PM CDT Respiratory Rate 16 02/07/2021 5:40 PM CDT Oxygen Saturation 98% 02/07/2021 5:40 PM CDT Inhaled Oxygen Concentration - - Weight 57.2 kg (126 lb) 02/07/2021 5:40 PM CDT Height 159 cm (5' 2.6) 02/29/2020 12:48 PM CASE MGR Body Mass Index 22.61 02/29/2020 12:48 PM CASE MGR Plan of Treatment Health Maintenance Due Date [...] 1-dose 75+ series) 2022 COVID-19 vaccine series (2023- season) 2023 02/24/2021, 07/04/2020, 06/06/2020 Influenza for age 65+ 12/19/2023 02/03/2021 , 02/19/2020, 01/21/2009 Tdap Completed 01/23/2003 Advance Directives * Full Code (Latest Code Status on File) Date Activated Date Inactivated Comments 03/13/2020 7:36 AM 03/13/2020 1:19 PM Question Answer Comments Code Status Discussion: Not Discussed Care Teams Railroad Shop Inspector Relationship Specialty Start Date End Date Kanchan Granda SPRAY APPLICATOR [address] [place] [id number] PCP - General Emergency Medicine 06/02/23
--- OUTSIDE RECORDS SUMMARY | 2024-03-13 15:50 | XMS_ITS | Clinical Summary ---
Author Organization [facility] Address [address] [place] [address] Care Team Providers Care Marketing Strategy Analyst Name Role Phone Tigre Preciado P.A.-C. Primary Care Provider Source Comments Patient records contain information from all sites at [facility]. For routine questions regarding patient records, call [phone] during business hours, M-F 8:00 AM - 5:00 PM Central Time. Record requests for emergency care only can be directed to [phone] at any time.[facility] Allergies Active Allergy Reactions Criticality Noted [...] 400 mg by mouth daily. Active vitamin A,C,G-giqozw-hlv erals (OCUVITE W/LUTEIN) 1,000 Unit-200 mg-60 Unit-2 [...] wheezing. 8 g 3 2 Active zoledronic jwyv-epjwpyxV-ka ter (RECLAST) 5 mg/100 mL piggyback Infuse [...] will continue to work with her current animal ride attendant. We also discussed management options with vaginal [...] Date Recorded PHQ-2 Score 0 06/26/2021 [facility] of Occupat ional Health - Occupational Stress [...] AM CDT Legal Sex Female 2:28 PM CONFERENCE CENTER MANAGER Gender Identity Not on file Sexual Orientation [...] 56.7 kg (125 lb) 05/16/2023 2:41 PM CONFERENCE CENTER MANAGER Height 160.3 cm (5' 3.11) 05/26/2022 9:30 AM CS T Body Mass Index 22.07 05/26/2022 9:30 AM CONFERENCE CENTER MANAGER Plan of Treatment Health Maintenance Due [...] OUTSIDE MG MAMMOGRAM Routine 04/01/2022 2:35 PM CONFERENCE CENTER MANAGER BMD BONE DENSITY SPINE HIPS RAD - Routine (most inpatients and all outpatients) 07/01/2017 1:41 PM CDT Screening Osteoporosis HCV AB SCRN W/REFLEX TO HCV PCR, S Routine 06/01/2016 10:10 AM CONFERENCE CENTER MANAGER from Last 3 Months or Most Recently Relevant to Health Maintenance Results * MM screening mammo BI-Outside Mammogram (04/01/2022 2:35 PM CONFERENCE CENTER MANAGER) Narrative IIMS - 07/03/2022 2:31 PM [...] DENSITY SPINE HIPS COMPARISON: 2012, 2007, 2005 Alliance Director/Model: [employer] FINDINGS: LUMBAR SPINE L1-L4 included unless otherwise [...] DENSITY SPINE HIPS COMPARISON: 2012, 2007, 2005 Alliance Director/Model: [employer] FINDINGS: LUMBAR SPINE L1-L4 included unless otherwise [...] HCV PCR, S (medicare) (06/01/2016 10:10 AM CONFERENCE CENTER MANAGER) HXHCV Ab [facility] Negative Negative POWERCHART Comment: Wcnrid-xg-uoaznp ratio is <1.00. Test Performed by: [place] [address] Machine Heel Sprayer: Giacomo Gatica II, M.D., Ph.D. Blood 06/01/2016 10:1 0 AM CONFERENCE CENTER MANAGER Luisa Roy M.D. LAB MICROBIOLOGY - BLOOD ORDERABLES Final Result POWERCHART from Last 3 Months or Most Recently Relevant to Health Maintenance Insurance [facility] Care Teams Marketing Strategy Analyst Relationship Specialty Start Date End Date Tigre Preciado P.A.-C. [address] [place] [phone] PCP - General Family Medicine 10/11/19
[2024-03-13 23:08] LABS: SARS PCR* Negative SARS-CoV-2 (Negative)
== END 2024-03-13 15:44 | disposition home or self-care (01) ==
PROVIDERS: PCP Nurse Practitioner Family; Visit Provider Nurse Practitioner Family
DX: R42 Dizziness and giddiness (principal); R53.83 Other fatigue
CPT/HCPCS: 80053; 81001; 84484; 85025; 87086; 87635

== ENCOUNTER 2024-03-16 11:11 | Emergency (ER) | payer MEDICARE, SELFPAY ==
[2024-03-16] VITALS (13 sets, daily range): BP systolic 147–184; BP diastolic 72–102; PULSE 84–96; RESP 28; TEMP 36.8; O2SAT 93–100; BMI 21.3
--- OUTSIDE RECORDS SUMMARY | 2024-03-16 11:14 | XMS_ITS | Clinical Summary ---
Author Organization [facility] Address [address] [place] [address] Care Team Providers Care Chief Technician Name Role Phone Tigre Preciado P.A.-C. Primary Care Provider Source Comments Patient records contain information from all sites at [facility]. For routine questions regarding patient records, call [phone] during business hours, M-F 8:00 AM - 5:00 PM Central Time. Record requests for emergency care only can be directed to [phone] at any time.[facility] Allergies Active Allergy Reactions Criticality Noted Date [...] 400 mg by mouth daily. Active vitamin A,C,K-eahkno-fbe erals (OCUVITE W/LUTEIN) 1,000 Unit-200 mg-60 Unit-2 [...] wheezing. 8 g 3 2 Active zoledronic gfiv-rvdrkezU-nt ter (RECLAST) 5 mg/100 mL piggyback Infuse [...] will continue to work with her current curing bin operator. We also discussed management options with [...] Recorded PHQ-2 Score 0 06/26/2021 [facility] [place] of Occupat ional Health - Occupational Stress [...] AM CDT Legal Sex Female 2:28 PM PLASTIC PARTS FABRICATOR TRIMMER Gender Identity Not on file Sexual Orientation [...] 56.7 kg (125 lb) 05/16/2023 2:41 PM PLASTIC PARTS FABRICATOR TRIMMER Height 160.3 cm (5' 3.11) 05/26/2022 9:30 AM CS T Body Mass Index 22.07 05/26/2022 9:30 AM PLASTIC PARTS FABRICATOR TRIMMER Plan of Treatment Health Maintenance Due Date [...] OUTSIDE MG MAMMOGRAM Routine 04/01/2022 2:35 PM PLASTIC PARTS FABRICATOR TRIMMER BMD BONE DENSITY SPINE HIPS RAD - Routine (most inpatients and all outpatients) 07/01/2017 1:41 PM CDT Screening Osteoporosis HCV AB SCRN W/REFLEX TO HCV PCR, S Routine 06/01/2016 10:10 AM PLASTIC PARTS FABRICATOR TRIMMER from Last 3 Months or Most Recently Relevant to Health Maintenance Results * MM screening mammo BI-Outside Mammogram (04/01/2022 2:35 PM PLASTIC PARTS FABRICATOR TRIMMER) Narrative IIMS - 07/03/2022 2:31 PM CDT [...] DENSITY SPINE HIPS COMPARISON: 2012, 2007, 2005 Network Security Administrator/Model: Kahub FINDINGS: LUMBAR SPINE L1-L4 included unless otherwise [...] DENSITY SPINE HIPS COMPARISON: 2012, 2007, 2005 Network Security Administrator/Model: Kahub FINDINGS: LUMBAR SPINE L1-L4 included unless otherwise [...] HCV PCR, S (medicare) (06/01/2016 10:10 AM PLASTIC PARTS FABRICATOR TRIMMER) HXHCV Ab [facility] Negative Negative POWERCHART Comment: Owzsuq-bz-yjtpgb ratio is <1.00. Test Performed by: [place] [address] Complaint Adjuster: Giacomo Gatica II, M.D., Ph.D. Blood 06/01/2016 10:1 0 AM PLASTIC PARTS FABRICATOR TRIMMER Luisa Roy M.D. LAB MICROBIOLOGY - BLOOD ORDERABLES Final Result POWERCHART from Last 3 Months or Most Recently Relevant to Health Maintenance Insurance [facility] Care Teams Chief Technician Relationship Specialty Start Date End Date Tigre Preciado P.A.-C. [address] [place] [phone] PCP - General Family Medicine 10/11/19
--- OUTSIDE RECORDS SUMMARY | 2024-03-16 11:14 | XMS_ITS | Referral Summary ---
Author Organization [facility] Address [address] [place] [address] Care Team Providers Care Table Top Tile Setter Name Role Phone Tigre Preciado P.A.-C. Primary Care Provider Source Comments Patient records contain information from all sites at [facility]. For routine questions regarding patient records, call [phone] during business hours, M-F 8:00 AM - 5:00 PM Central Time. Record requests for emergency care only can be directed to [phone] at any time.[facility] Allergies Active Allergy Reactions Criticality Noted Date [...] 400 mg by mouth daily. Active vitamin A,C,X-azdeav-ibs erals (OCUVITE W/LUTEIN) 1,000 Unit-200 mg-60 Unit-2 [...] wheezing. 8 g 3 2 Active zoledronic himz-hjwmkbtT-jr ter (RECLAST) 5 mg/100 mL piggyback Infuse [...] will continue to work with her current automation engineer. We also discussed management options with [...] Answer Date Recorded PHQ-2 Score 0 06/26/2021 [facility] of Occupat ional Health - Occupational [...] AM CDT Legal Sex Female 2:28 PM DECK SPECIALIST Gender Identity Not on file Sexual Orientation [...] 56.7 kg (125 lb) 05/16/2023 2:41 PM DECK SPECIALIST Height 160.3 cm (5' 3.11) 05/26/2022 9:30 AM CS T Body Mass Index 22.07 05/26/2022 9:30 AM DECK SPECIALIST Plan of Treatment Not on file Procedures Procedure Name Priority Date/Time Associated Diagnosis Comments OUTSIDE MG MAMMOGRAM Routine 04/01/2022 2:35 PM DECK SPECIALIST BMD BONE DENSITY SPINE HIPS RAD - Routine (most inpatients and all outpatients) 07/01/2017 1:41 PM CDT Screening Osteoporosis HCV AB SCRN W/REFLEX TO HCV PCR, S Routine 06/01/2016 10:10 AM DECK SPECIALIST from Last 3 Months or Most Recently Relevant to Health Maintenance Results * MM screening mammo BI-Outside Mammogram (04/01/2022 2:35 PM DECK SPECIALIST) Narrative IIMS - 07/03/2022 2:31 PM CDT [...] DENSITY SPINE HIPS COMPARISON: 2012, 2007, 2005 Energy Rater/Model: [employer] FINDINGS: LUMBAR SPINE L1-L4 included unless otherwise [...] DENSITY SPINE HIPS COMPARISON: 2012, 2007, 2005 Energy Rater/Model: Demdex FINDINGS: LUMBAR SPINE L1-L4 included unless otherwise [...] HCV PCR, S (medicare) (06/01/2016 10:10 AM DECK SPECIALIST) HXHCV Ab [facility] Negative Negative POWERCHART Comment: Ajpsws-cy-jdpssl ratio is <1.00. Test Performed by: [place] [address] Triage Clinician: Giacomo Gatica II, M.D., Ph.D. Blood 06/01/2016 10:1 0 AM DECK SPECIALIST Luisa Roy M.D. LAB MICROBIOLOGY - BLOOD ORDERABLES Final Result POWERCHART from Last 3 Months or Most Recently Relevant to Health Maintenance Insurance [facility] [place] [phone] [facility] Care Teams Table Top Tile Setter Relationship Specialty Start Date End Date Tigre Preciado P.A.-C. [address] [place] [phone] PCP - General Family Medicine 10/11/19
--- OUTSIDE RECORDS SUMMARY | 2024-03-16 11:14 | XMS_ITS | Clinical Summary ---
Author Organization [facility] Address [place], [place] [address] Care Team Providers Care Toolman Name Role Phone Kanchan Granda NP Primary Care Provider [phone]- [phone] Allergies Active Allergy Reactions Criticality Noted Date [...] PRN, Reported on 01/16/2020 vit A,C and G-coojha-pksseckx (OCUVITE WITH LUTEIN) 1,000 unit-200 mg-60 unit-2 [...] will continue to work with her current case management social worker. We also discussed management options with vaginal estrogen therapy, pessary, or surgical intervention. She is not interested in these options at this time. I recommend she follow up as needed in the future. Osteoporosis 07/20/2017 Personal history of colonic polyps 11/10/2012 Reactive airway disease 07/12/2009 Headache(784.0) 01/09/2009 Immunizations Name Administration Dates Next Due COVID-19 vaccine ([employer] 30mcg/0.3mL) P F, MDV 02/24/2021 Influenza, IIV3 [...] 159 cm (5' 2.6) 02/29/2020 12:48 PM WET PRESS TENDER Body Mass Index 22.61 02/29/2020 12:48 PM WET PRESS TENDER Plan of Treatment Health Maintenance Due Date [...] 02/03/2021 , 02/19/2020, 01/21/2009 Tdap Completed 01/23/2003 Insurance Payer Benefit Plan / Group Subscriber ID Effective Dates Phone Address Type MEDICARE PART B - HB USE ONLY MEDICARE PART B HB ONLY [id number] 2012-Presen t ATTN: CLAIMS [address] [facility] [place] [address] [facility]LY [facility] [id number] 2014-Present [address] [place] [address] [facility] MEDICARE ADVANTAGE [id number] 2019-Present [address] [place] [address] Advance Directives * Full Code (Latest Code Status on File) Date Activated Date Inactivated Comments 03/13/2020 7:36 AM 03/13/2020 1:19 PM Question Answer Comments Code Status Discussion: Not Discussed Care Teams Toolman Relationship Specialty Start Date End Date Kanchan Granda TRAVERSE ROD ASSEMBLER [address] [place] [phone] PCP - General Emergency Medicine 06/02/23
--- OUTSIDE RECORDS SUMMARY | 2024-03-16 11:14 | XMS_ITS ---
Author Organization [facility] Address [address] [place] [address] Care Team Providers Care Renal Dialysis Rn Name Role Phone Unavailable Unavailable Unavailable Surgery Details Not on file Complications Check Surgery Details section. Procedure Estimated Blood Loss Check Surgery Details section. Procedure Findings Check Surgery Details section. Procedure Specimens Taken Check Surgery Details section.
--- NOTE | 2024-03-16 11:47 | ED_ITS ---
HPI - SOB/Dyspnea General Date Seen: 03/16/24 Chief Complaint: Shortness of Breath/Dyspnea Stated Complaint: Labored breathing, weak Time Seen by Provider: 03/16/24 11:37 Source: patient Mode of arrival: ambulatory Limitations: no limitations History of Present Illness HPI Narrative: Patient is a 78-year-old female presenting to the emergency department for concern of shortness of breath reviewed she states she has felt like she has been having labored breathing for the past 6 days. This past Wednesday she woke up and felt very lightheaded and off balance like she was a fall pass out. Her helped her down the steps yesterday when the above symptoms fully resolved. She has not had a repeat of those symptoms since. Does note she had similar symptoms about 2 years ago. Was told by her primary care provider that they will need to do carotid ultrasounds. Patient does note she gets bronchitis once a year and will have an asthma flare with at which she usually uses her alb uterol inhaler for. Has been using her inhaler at home with some mild improvements. Does states she has had symptoms like this before and was found to have pneumonia. Chest x-ray done this past Wednesday showed some nodular densities in left upper lobe and CT of the chest was recommended. This was scheduled for outpatient but symptoms were persistent so she came to the emergency department today. She denies fevers, chills, chest pain, abdominal pain, numbness, constipation, diarrhea, nausea/vomiting. Does feel slightly fatigued. Related Data Previous Rx's ?Medication ?Instructions ?Recorded docusate sodium 100 mg capsule 100 mg PO QDAY #90 caps 02/29/24 (Colace) nitrofurantoin 100 mg PO ONCE 7 days #7 caps 02/29/24 monohydrate/macrocrystals 100 mg capsule (Macrobid) sumatriptan succinate 25 mg tablet See Rx Instructions PO .COMPLEX 02/29/24 #12 tabs Allergies Allergy/AdvReac Type Severity Reaction Status Date / Time cephalexin (From Keflex) Allergy Severe Difficulty Verified 03/13/24 15:09 Swallowing metronidazole Allergy Verified 03/13/24 15:09 cefuroxime AdvReac Verified 03/13/24 15:09 ciprofloxacin AdvReac Tendonitis, Verified 03/13/24 15:09 myalgia epinephrine (From Xylocaine AdvReac Verified 03/13/24 15:09 with Epinephrine) fluconazole AdvReac Verified 03/13/24 15:09 latex AdvReac Rash Verified 03/13/24 15:09 lidocaine (From Xylocaine AdvReac Verified 03/13/24 15:09 with Epinephrine) Sulfa (Sulfonamide AdvReac Nausea Verified 03/13/24 15:09 Antibiotics) Review of Systems Status of ROS: Reports: 10 or more systems reviewed and unremarkable except as noted in History and below PFSH PFSH Medical History Hx of colonic polyp ?Z86.010 - Personal history of colonic polyps (ICD-10) Hx of migraine headaches ?Z86.69 - Personal history of other diseases of the nervous system and sense organs (ICD-10) History of cystocele ?Z87.448 - Personal history of other diseases of urinary system (ICD-10) History of oral candidiasis ?Z86.19 - Personal history of other infectious and parasitic diseases (ICD- 10) Hx of peripheral neuropathy ?Z86.69 - Personal history of other diseases of the nervous system and sense organs (ICD-10) Hyponatremia ?E87.1 - Hypo-osmolality and hyponatremia (ICD-10) History of anxiety ?Z86.59 - Personal history of other mental and behavioral disorders (ICD-10) History of diverticulosis ?Z87.19 - Personal history of other diseases of the digestive system (ICD-10) Hx of scoliosis ?Z87.39 - Personal history of other diseases of the musculoskeletal system and connective tissue (ICD-10) Hx of fracture of rib ?Z87.81 - Personal history of (healed) traumatic fracture (ICD-10) Degenerative disc disease at L5-S1 level ?M51.37 - Other intervertebral disc degeneration, lumbosacral region (ICD-10) Surgical History History of lumpectomy of right breast ?Z98.890 - Other specified postprocedural states (ICD-10) Hx of colonoscopy ?Z98.890 - Other specified postprocedural states (ICD-10) Hx laparoscopic cholecystectomy ?Z90.49 - Acquired absence of other specified parts of digestive tract (ICD- 10) Family History Brother Laryngeal cancer Father Laryngeal cancer High blood pressure Mother Breast cancer COPD (chronic obstructive pulmonary disease) Diabetes High blood pressure Macular degeneration Aunt Breast cancer Sister Coronary artery disease Pacemaker Retinal detachment Social History Narrative: . 3 children. Exercises daily. Non smoker. Alcohol rare. No illicit drug use. What is your current living situation?: I presently have a place to live In the past 12 months, utilities in danger of being shut off: no In the past 12 mos, have been you worried that your food would run out before you had money to buy more?: never true In the past 12 mos, the food you bought just didn't last and you didn't have money to buy more?: never true Smoking Status: Never smoker How often does anyone, including family, friends and others, physically hurt you : never How often does anyone, including family, friends and others, insult or talk down to you: never How often does anyone, including family, friends and others, threaten you with harm: never How often does anyone, including family, friends and others, scream or curse at you: never Exam Narrative: Exam Narrative: Const: Well-nourished, Well-developed, in no distress Eyes: PERRL, no conjunctival injection, and symmetrical lids HENT: Atraumatic external nose and ears. Moist mucous membranes. Neck: Symmetric, trachea midline, No thyromegaly. CVS: RRR, No murmurs or gallops. Peripheral pulses 2+ and equal in all extremities RESP: Unlabored respiratory effort. Clear to auscultation bilaterally. GI: Nontender/Nondistended, No rebound or guarding. MSK:Extremities w/o deformity, Normal Active ROM Skin: Warm, Dry. No rashes or lesions. Neuro: Normal Muscle tone, No focal neurological deficits. Psych: Awake, Alert, & Oriented x3. Appropriate mood and affect. Const: Vital Signs, click to edit/add: Vital Signs - 24 hr 03/16/24 11:24 03/16/24 12:30 03/16/24 12:31 Temperature 98.3 F Pulse Rate 87 Pulse Rate [Pulse Oximeter] 96 Respiratory Rate 28 H Blood Pressure 153/84 H Blood Pressure [Le ft Upper Arm] 184/99 H Pulse Oximetry 99 97 Oxygen Delivery Me thod Room Air 03/16/24 12:45 03/16/24 13:00 03/16/24 13:02 Temperature Pulse Rate 87 86 86 Pulse Rate [Pulse Oximeter] Respiratory Rate Blood Pressure 153/81 H Blood Pressure [Le ft Upper Arm] Pulse Oximetry 98 99 100 Oxygen Delivery Me thod 03/16/24 13:15 03/16/24 13:31 03/16/24 13:52 Temperature Pulse Rate 85 84 Pulse Rate [Pulse Oximeter] Respiratory Rate Blood Pressure 147/72 H Blood Pressure [Le ft Upper Arm] Pulse Oximetry 98 98 Oxygen Delivery Me thod 03/16/24 14:01 03/16/24 14:02 03/16/24 14:18 Temperature Pulse Rate 91 93 Pulse Rate [Pulse Oximeter] Respiratory Rate Blood Pressure 153/81 H Blood Pressure [Le ft Upper Arm] Pulse Oximetry 96 93 Oxygen Delivery Me thod 03/16/24 14:31 Temperature Pulse Rate Pulse Rate [Pulse Oximeter] Respiratory Rate Blood Pressure 159/102 H Blood Pressure [Le ft Upper Arm] Pulse Oximetry Oxygen Delivery Me thod Course Vital Signs Vital signs: Initial Vital Signs Temperature 98.3 F 03/16/24 11:24 Temperature Source Temporal Artery Scan 03/16/24 11:24 Pulse Rate 96 03/16/24 11:24 Pulse Rhythm Regular 03/16/24 11:24 Respiratory Rate 28 H 03/16/24 11:24 Blood Pressure 184/99 H 03/16/24 11:24 Blood Pressure Mean 127 H 03/16/24 11:24 Blood Pressure Position Supine 03/16/24 11:24 Pulse Oximetry 99 03/16/24 11:24 Oxygen Delivery Method Room Air 03/16/24 11:24 Vital Signs Temperature 98.3 F 03/16/24 11:24 Pulse Rate 96 03/16/24 11:24 Respiratory Rate 28 H 03/16/24 11:24 Blood Pressure 184/99 H 03/16/24 11:24 Pulse Oximetry 99 03/16/24 11:24 Oxygen Delivery Method Room Air 03/16/24 11:24 Temperature 98.3 F 03/16/24 11:24 Pulse Rate 93 03/16/24 14:18 Respiratory Rate 28 H 03/16/24 11:24 Blood Pressure 159/102 H 03/16/24 14:31 Pulse Oximetry 93 03/16/24 14:18 Oxygen Delivery Method Room Air 03/16/24 11:24 MDM - SOB/Dyspnea MDM Narrative Medical decision making narrative: Patient is a 78-year-old female presenting for shortness of breath. The differential diagnosis of shortness of breath is broad and includes common etiologies such as COPD, asthma, pneumonia, viral syndrome, etc. More serious etiologies considered include PE, CHF, coronary artery disease, pneumothorax, aortic dissection, aortic aneurysm. Will eventually do a CT scan of the chest to look for pneumonia on a or pneumothorax. Are holding off until D-dimer returns to know if this needs to be with or without contrast for CTA. No history of CHF and no lower extremity edema so CHF seems less likely but will order BNP. Will do EKG and troponin to look for signs of ACS. Will also order CBC, CMP, magnesium, urinalysis. When she 1st arrived his pulse is 96 respirations were 28 so did meet criteria for SIRS so lactate was ordered. Will do viral swabs should for COVID/flu/RSV. The EKG shows no concerning abnormalities. Troponin within normal limits. Considering symptoms have been going on for over week do not believe repeat troponin is necessary. Lab work shows no concerning findings. D-dimer within normal limits will do a CT non-con. Lactate within normal limits. CTA reviewed by myself and the radiologist shows no concerning abnormalities. On my review vital signs are stable throughout time in in the emergency department. Oximetry stayed in the mid to high 90s. cardiac monitor technician showed no concerning arrhythmias. She continues to be doing well at this time. I do not know exactly was causing her symptoms but I see no concerning abnormalities. She can follow up outpatient with her primary care provider. She is agreeable to this plan. Lab Data Labs: Lab Results 03/16/24 03/16/24 03/16/24 Range/Units 11:48 11:51 13:00 WBC 7.06 (4.50-11.00) K/uL RBC 4.23 (4.00-5.20) m/uL Hgb 13.3 (12.0-16.0) gm/dL Hct 39.1 (33.0-51.0) % MCV 92 (80-100) fL MCH 31 (26-34) pg MCHC 34 (32-36) gm/dL RDW Coeff of Nati 12.3 (11.5-15.5) % Plt Count 341 (140-440) K/uL Neut % (Auto) 69.1 (42.0-72.0) % Lymph % (Auto) 23.5 (20-44) % [place] % (Auto) 5.9 (0.0-11.0) % Eos % (Auto) 1.0 (0.0-7.0) % Baso % (Auto) 0.4 (0.0-3.0) % Neut # (Auto) 4.87 (1.7-7.0) K/uL Lymph # (Auto) 1.66 (0.90-2.90) K/uL [place] # (Auto) 0.40 (0.00-0.90) K/UL Eos # (Auto) 0.07 (0.00-0.50) K/uL Baso # (Auto) 0.03 (0.00-0.30) K/uL Abs Immat Gran (auto) 0.01 (0.00-0.30) K/uL Imm/Tot Granulo (auto) 0.1 % D-Dimer Quant (PE/DVT) 0.34 (0.00-0.50) ug/ml Sodium 133 L (135-149) mmol/L Potassium 3.9 (3.6-5.1) mmol/L Chloride 101 (96-114) mmol/L Carbon Dioxide 24 (20-32) mmol/L Anion Gap 8 (7-15) mEq/L BUN 10 (7-30) mg/dL Creatinine 0.8 (0.5-1.5) mg/dL Estimated Creat Clear 39.59 Estimated GFR 76 ml/min Glucose 98 (60-115) mg/dL Lactate 0.9 (0.5-1.9) mmol/L Calcium 9.6 (8.4-10.6) mg/dL Magnesium 2.0 (1.5-2.6) mg/dL Total Bilirubin 0.5 (0.1-1.5) mg/dL AST 27 (12-35) U/L ALT 15 (4-35) U/L Alkaline Phosphatase 72 (40-150) U/L NT-Pro-B Natriuret Pep 118 pg/mL Total Protein 7.5 (6.0-8.3) g/dL Albumin 4.6 (3.3-5.0) g/dL Urine Color Yellow (Yellow) Urine Appearance Clear (Clear) Urine pH 6.5 (5.0-8.5) Ur Specific [place] 1.010 (1.000-1.030) Urine Protein Negative (Negative) Urine Glucose (UA) Negative (Negative) Urine Ketones Negative (Negative) Urine Blood Negative (Negative) Urine Nitrite Negative (Negative) Urine Bilirubin Negative (Negative) Urine Urobilinogen 0.2 (0.2-1.0) Ur Leukocyte Esterase Negative (Negative) Urine RBC 0-2 (0-2) Urine WBC 0-2 (0-5) Ur Squamous Epith Cells None (None-Few) Urine Bacteria None (None) SARS-CoV-2 (PCR) Negative SARS-CoV-2 (Negative) Influenza Type A (PCR) Negative PCR FLU A (Negative) Influenza Type B (PCR) Negative PCR FLU B (Negative) RSV (PCR) Negative PCR RSV (Negative) POC Troponin I 0.01 (0.01-0.04) ng/ml Imaging Data CTA chest: Attestation: I have reviewed the pertinent imaging results. Radiologist's impression: 1. No acute pulmonary findings. Left perifissural 5 millimeter nodule follow-up per Fleischner society guidelines. FLEISCHNER SOCIETY GUIDELINES - SOLID NODULES: SINGLE LOW RISK - nodule less than 6 mm: No routine follow-up. - nodule 6-8 mm: CT at 6-12 months, then consider CT at 18-24 months. - nodule greater than 8 mm: Consider CT at 3 months, PET/CT or tissue sampling. SINGLE HIGH RISK - nodule less than 6 mm: Optional CT at 12 months. - nodule 6-8 mm: CT at 6-12 months, then CT at 18-24 months. - nodule greater than 8 mm: Consider CT at 3 months, PET/CT or tissue sampling. MULTIPLE LOW RISK - nodule less than 6 mm: No routine follow-up. - nodule 6-8 mm: CT at 3-6 months, then consider CT at 18-24 months. - nodule greater than 8 mm: CT at 3-6 months, then consider CT at 18-24 months. MULTIPLE HIGH RISK - nodule less than 6 mm: Optional CT at 12 months. - nodule 6-8 mm: CT at 3-6 months, then at 18-24 months. - nodule greater than 8 mm: CT at 3-6 months, then at 18-24 months. Please note that all CT scans at this facility use dose modulation, iterative reconstruction, and/or weight-based dosing when appropriate to reduce radiation dose to as low as reasonably achievable. Dictated by Jyoti Cunningham MD @ 03/16/2024 1:24:58 PM ECG Data Attestation: I personally reviewed and interpreted this ECG as follows: Prior ECG tracings: available for review Interpretation: EKG shows normal sinus rhythm with a rate of 88 beats per minute, normal intervals, normal axis, no ST or T-wave abnormalities. Appears similar to previous EKG on file Discharge Plan Discharge Clinical Impression: Shortness of breath Patient Disposition: Home, Self-Care Condition: Stable Additional Instructions: While I do not know what is causing your symptoms at this time I do not find any acute concerning findings. There is a lung nodule seen on your CT scan any should follow up with the primary care provider about this. They may have repeat CTs done to monitor it. Return to emergency department for any new or worsening symptoms. Prescriptions: No Action nitrofurantoin monohyd/m-cryst [Macrobid] 100 mg capsule 100 mg PO ONCE 7 Days Qty: 7 5RF Rx Instructions: must administer with a meal/food one capsule after intercourse docusate sodium [Colace] 100 mg capsule 100 mg PO QDAY Qty: 90 3RF sumatriptan succinate 25 mg tablet See Rx Instructions PO .COMPLEX Qty: 12 0RF Rx Instructions: take 1 tab at onset of headache; if no relief may repeat 1 tab after at least 2 hrs; max = 4 tabs/24 hr PO Follow Up/Referrals: Kanchan Granda, LIEUTENANT SHIFT SUPERVISOR, RANGE CONSERVATIONIST [Primary Care Provider] - Stand Alone Forms: MyHealth Info Instructions
[2024-03-16 11:57] LABS: Lactate Sepsis w/Reflex* 0.9 mmol/L (0.5-1.9)
--- OUTSIDE RECORDS SUMMARY | 2024-03-16 11:57 | XMS_ITS | Clinical Summary ---
Author Organization [facility] Address [address] [place] [address] Care Team Providers Care Assistant Prosecuting Attorney Name Role Phone Tigre Preciado P.A.-C. Primary Care Provider Source Comments Patient records contain information from all sites at [facility]. For routine questions regarding patient records, call [phone] during business hours, M-F 8:00 AM - 5:00 PM Central Time. Record requests for emergency care only can be directed to [phone] at any time.[facility] Allergies Active Allergy Reactions Criticality Noted [...] 400 mg by mouth daily. Active vitamin A,C,M-bgxhxt-lzn erals (OCUVITE W/LUTEIN) 1,000 Unit-200 mg-60 Unit-2 [...] wheezing. 8 g 3 2 Active zoledronic nbue-rljvltvE-ih ter (RECLAST) 5 mg/100 mL piggyback Infuse [...] will continue to work with her current device repair technician. We also discussed management options with vaginal [...] Date Recorded PHQ-2 Score 0 06/26/2021 [facility] - Occupational Stress [...] AM CDT Legal Sex Female 2:28 PM ASSEMBLER TYPE BAR AND SEGMENT Gender Identity Not on file Sexual Orientation [...] 56.7 kg (125 lb) 05/16/2023 2:41 PM ASSEMBLER TYPE BAR AND SEGMENT Height 160.3 cm (5' 3.11) 05/26/2022 9:30 AM CS T Body Mass Index 22.07 05/26/2022 9:30 AM ASSEMBLER TYPE BAR AND SEGMENT Plan of Treatment Health Maintenance Due Date [...] OUTSIDE MG MAMMOGRAM Routine 04/01/2022 2:35 PM ASSEMBLER TYPE BAR AND SEGMENT BMD BONE DENSITY SPINE HIPS RAD - Routine (most inpatients and all outpatients) 07/01/2017 1:41 PM CDT Screening Osteoporosis HCV AB SCRN W/REFLEX TO HCV PCR, S Routine 06/01/2016 10:10 AM ASSEMBLER TYPE BAR AND SEGMENT from Last 3 Months or Most Recently Relevant to Health Maintenance Results * MM screening mammo BI-Outside Mammogram (04/01/2022 2:35 PM ASSEMBLER TYPE BAR AND SEGMENT) Narrative [facility]IMS - 07/03/2022 2:31 PM CDT [...] DENSITY SPINE HIPS COMPARISON: 2012, 2007, 2005 Account Development Representative/Model: [employer] FINDINGS: LUMBAR SPINE L1-L4 included unless otherwise [...] DENSITY SPINE HIPS COMPARISON: 2012, 2007, 2005 Account Development Representative/Model: [employer] FINDINGS: LUMBAR SPINE L1-L4 included unless otherwise [...] HCV PCR, S (medicare) (06/01/2016 10:10 AM ASSEMBLER TYPE BAR AND SEGMENT) HXHCV Ab [facility] Negative Negative POWERCHART Comment: Vzlzer-hw-bbapsd ratio is <1.00. Test Performed by: [place] [address] Profile Grinder Technician: Giacomo Gatica II, M.D., Ph.D. Blood 06/01/2016 10:1 0 AM ASSEMBLER TYPE BAR AND SEGMENT Luisa Roy M.D. LAB MICROBIOLOGY - BLOOD ORDERABLES Final Result POWERCHART from Last 3 Months or Most Recently Relevant to Health Maintenance Insurance [facility] Care Teams Assistant Prosecuting Attorney Relationship Specialty Start Date End Date Tigre Preciado P.A.-C. [address] [place] [id number] PCP - General Family Medicine 10/11/19
--- OUTSIDE RECORDS SUMMARY | 2024-03-16 11:57 | XMS_ITS | Referral Summary ---
Author Organization [facility] Address [address] [place] [id number] Care Team Providers Care Associate Software Application Engineer Name Role Phone Tigre Preciado P.A.-C. Primary Care Provider Source Comments Patient records contain information from all sites at [facility]. For routine questions regarding patient records, call [phone] during business hours, M-F 8:00 AM - 5:00 PM Central Time. Record requests for emergency care only can be directed to [phone] at any time.[facility] Allergies Active Allergy Reactions Criticality Noted Date [...] 400 mg by mouth daily. Active vitamin A,C,Z-trfaec-ezm erals (OCUVITE W/LUTEIN) 1,000 Unit-200 mg-60 Unit-2 [...] wheezing. 8 g 3 2 Active zoledronic sbfm-oeizvidZ-np ter (RECLAST) 5 mg/100 mL piggyback Infuse [...] will continue to work with her current solar installation helper. We also discussed management options with vaginal [...] Answer Date Recorded PHQ-2 Score 0 06/26/2021 [facility] ional [facility] - [...] AM CDT Legal Sex Female 2:28 PM PARATRANSIT OPERATOR Gender Identity Not on file Sexual Orientation [...] 56.7 kg (125 lb) 05/16/2023 2:41 PM PARATRANSIT OPERATOR Height 160.3 cm (5' 3.11) 05/26/2022 9:30 AM CS T Body Mass Index 22.07 05/26/2022 9:30 AM PARATRANSIT OPERATOR Plan of Treatment Not on file Procedures Procedure Name Priority Date/Time Associated Diagnosis Comments OUTSIDE MG MAMMOGRAM Routine 04/01/2022 2:35 PM PARATRANSIT OPERATOR BMD BONE DENSITY SPINE HIPS RAD - Routine (most inpatients and all outpatients) 07/01/2017 1:41 PM CDT Screening Osteoporosis HCV AB SCRN W/REFLEX TO HCV PCR, S Routine 06/01/2016 10:10 AM PARATRANSIT OPERATOR from Last 3 Months or Most Recently Relevant to Health Maintenance Results * MM screening mammo BI-Outside Mammogram (04/01/2022 2:35 PM PARATRANSIT OPERATOR) Narrative [facility]IMS - 07/03/2022 2:31 PM [...] DENSITY SPINE HIPS COMPARISON: 2012, 2007, 2005 Hat Maker/Model: [employer] FINDINGS: LUMBAR SPINE L1-L4 included unless otherwise [...] DENSITY SPINE HIPS COMPARISON: 2012, 2007, 2005 Hat Maker/Model: [employer] FINDINGS: LUMBAR SPINE L1-L4 included unless otherwise [...] HCV PCR, S (medicare) (06/01/2016 10:10 AM PARATRANSIT OPERATOR) HXHCV Ab [facility] Negative Negative POWERCHART Comment: Nohtme-ts-nndrez ratio is <1.00. Test Performed by: [place] [address] Chemistry Manager: Giacomo aGtica II, M.D., Ph.D. Blood 06/01/2016 10:1 0 AM PARATRANSIT OPERATOR Luisa Roy M.D. LAB MICROBIOLOGY - BLOOD ORDERABLES Final Result POWERCHART from Last 3 Months or Most Recently Relevant to Health Maintenance [place] [phone] [facility] Care Teams Associate Software Application Engineer Relationship Specialty Start Date End Date Tigre Preciado P.A.-C. [address] [place] [phone] PCP - General Family Medicine 10/11/19
--- OUTSIDE RECORDS SUMMARY | 2024-03-16 11:57 | XMS_ITS | Clinical Summary ---
Author Organization [facility] Address [place], [place] [address] Care Team Providers Care Packing Machine Pilot Can Router Name Role Phone Kanchan Granda NP Primary Care Provider [phone] Allergies Active Allergy Reactions Criticality Noted Date [...] PRN, Reported on 01/16/2020 vit A,C and K-srxkfn-apxhsmca (OCUVITE WITH LUTEIN) 1,000 unit-200 mg-60 unit-2 [...] will continue to work with her current fire alarm mechanic. We also discussed management options with vaginal estrogen therapy, pessary, or surgical intervention. She is not interested in these options at this time. I recommend she follow up as needed in the future. Osteoporosis 07/20/2017 Personal history of colonic polyps 11/10/2012 Reactive airway disease 07/12/2009 Headache(784.0) 01/09/2009 Immunizations Name Administration Dates Next Due COVID-19 vaccine (AuthorBee 30mcg/0.3mL) P F, MDV 02/24/2021 Influenza, IIV3 [...] 159 cm (5' 2.6) 02/29/2020 12:48 PM COMMAND AND CONTROL Body Mass Index 22.61 02/29/2020 12:48 PM COMMAND AND CONTROL Plan of Treatment Health Maintenance Due Date [...] Code Status Discussion: Not Discussed Care Teams Packing Machine Pilot Can Router Relationship Specialty Start Date End Date Kanchan Granda PAN GREASER [address] [place] [id number] PCP - General Emergency Medicine 06/02/23
--- OUTSIDE RECORDS SUMMARY | 2024-03-16 11:57 | XMS_ITS ---
Author Organization [facility] Address [address] [place] [address] Care Team Providers Care Carder Blankets Name Role Phone Unavailable Unavailable Unavailable Surgery Details Not on file Complications Check Surgery Details section. Procedure Estimated Blood Loss Check Surgery Details section. Procedure Findings Check Surgery Details section. Procedure Specimens Taken Check Surgery Details section.
[2024-03-16 12:01] LABS: Basophils Absolute Auto 0.03 K/uL (0.00-0.30); Basophils Percent Auto 0.4 % (0.0-3.0); Eosinophils Absolute Auto 0.07 K/uL (0.00-0.50); Hematocrit 39.1 % (33.0-51.0); Hemoglobin* 13.3 gm/dL (12.0-16.0); Immature Granulocytes Abs Auto 0.01 K/uL (0.00-0.30); Immature Granulocytes Pct Auto 0.1 %; Lymphocytes Absolute Auto 1.66 K/uL (0.90-2.90); Lymphocytes Percent Auto 23.5 % (20-44); Mean Corpuscular HGB Conc 34 gm/dL (32-36); Mean Corpuscular Hemoglobin 31 pg (26-34); Mean Corpuscular Volume 92 fL (80-100); Monocytes Percent Auto 5.9 % (0.0-11.0); Neutrophils Absolute Auto 4.87 K/uL (1.7-7.0); Neutrophils Percent Auto 69.1 % (42.0-72.0); Platelet Count* 341 K/uL (140-440); RDW Coefficient of Variation % 12.3 % (11.5-15.5); Red Blood Count 4.23 m/uL (4.00-5.20); White Blood Count* 7.06 K/uL (4.50-11.00)
[2024-03-16 12:04] LABS: Slide Review Reflex No
[2024-03-16 12:14] LABS: Albumin* 4.6 g/dL (3.3-5.0); Chloride* 101 mmol/L (96-114); Potassium* 3.9 mmol/L (3.6-5.1); Sodium* 133 mmol/L (135-149)
[2024-03-16 12:16] LABS: Anion Gap 8 mEq/L (7-15); Aspartate Amino Transferase* 27 U/L (12-35); Bilirubin Total* 0.5 mg/dL (0.1-1.5); Carbon Dioxide* 24 mmol/L (20-32); Creatinine* 0.8 mg/dL (0.5-1.5); Est. Creatinine Clearance* 39.59; Estimated Glomerular Filt Rate 76 ml/min; Total Protein* 7.5 g/dL (6.0-8.3)
[2024-03-16 12:17] LABS: Alanine Aminotransferase* 15 U/L (4-35); Alkaline Phosphatase* 72 U/L (40-150); Blood Urea Nitrogen* 10 mg/dL (7-30); Calcium* 9.6 mg/dL (8.4-10.6); Glucose* 98 mg/dL (60-115)
[2024-03-16 12:20] LABS: D Dimer Quantitative* 0.34 ug/ml (0.00-0.50)
--- NOTE | 2024-03-16 12:21 | CRLHL7_ITS ---
For Patients: As a result of the 21st Century Cures Act, medical imaging exams and procedure reports are released immediately into your electronic medical record. You may view this report before your referring provider. If you have questions, please contact your health care provider. INDICATION: Abnormal chest x-ray TECHNIQUE: CT chest without contrast. COMPARISON: Chest x-ray 03/13/2024 FINDINGS: Lungs and pleura: 5 millimeter left perifissural nodule 60 basilar atelectasis Heart and vasculature: Heart size is normal. Thoracic aorta and pulmonary artery are normal in caliber. Lymph nodes/mediastinum: No mediastinal, hilar, or axillary adenopathy. Chest wall: No masses. Upper abdomen: No significant findings. Cholecystectomy Bones: Unremarkable for age. IMPRESSION: 1. No acute pulmonary findings. Left perifissural 5 millimeter nodule follow-up per Fleischner society guidelines. FLEISCHNER SOCIETY GUIDELINES - SOLID NODULES: SINGLE LOW RISK - nodule less than 6 mm: No routine follow-up. - nodule 6-8 mm: CT at 6-12 months, then consider CT at 18-24 months. - nodule greater than 8 mm: Consider CT at 3 months, PET/CT or tissue sampling. SINGLE HIGH RISK - nodule less than 6 mm: Optional CT at 12 months. - nodule 6-8 mm: CT at 6-12 months, then CT at 18-24 months. - nodule greater than 8 mm: Consider CT at 3 months, PET/CT or tissue sampling. MULTIPLE LOW RISK - nodule less than 6 mm: No routine follow-up. - nodule 6-8 mm: CT at 3-6 months, then consider CT at 18-24 months. - nodule greater than 8 mm: CT at 3-6 months, then consider CT at 18-24 months. MULTIPLE HIGH RISK - nodule less than 6 mm: Optional CT at 12 months. - nodule 6-8 mm: CT at 3-6 months, then at 18-24 months. - nodule greater than 8 mm: CT at 3-6 months, then at 18-24 months. Please note that all CT scans at this facility use dose modulation, iterative reconstruction, and/or weight-based dosing when appropriate to reduce radiation dose to as low as reasonably achievable. Dictated by Jyoti Cunningham MD @ 03/16/2024 1:24:58 PM (Electronically Signed)
[2024-03-16 12:22] LABS: Troponin, Point-of-Care* 0.01 ng/ml (0.01-0.04)
[2024-03-16 12:30] LABS: NT Pro B Type NatriureticPept* 118 pg/mL
[2024-03-16 12:39] LABS: PCR FLU A Negative PCR FLU A (Negative); PCR FLU B Negative PCR FLU B (Negative); PCR RSV Negative PCR RSV (Negative); SARS PCR* Negative SARS-CoV-2 (Negative)
[2024-03-16 13:07] LABS: Appearance Urine Clear (Clear); Bilirubin Urine Negative (Negative); Blood Urine Negative (Negative); Color Urine Yellow (Yellow); Glucose Urine Negative (Negative); Ketones Urine Negative (Negative); Leukocyte Esterase Urine Negative (Negative); Nitrite Urine Negative (Negative); Protein Urine Negative (Negative); Urobilinogen Urine 0.2 (0.2-1.0); pH Urine 6.5 (5.0-8.5)
[2024-03-16 13:42] LABS: RBC Urine 0-2 (0-2); WBC Urine 0-2 (0-5)
== END 2024-03-16 15:36 | disposition home or self-care (01) ==
PROVIDERS: Emergency Provider Student in an Organized Health Care Education/Training Program; PCP Nurse Practitioner Family
DX: R06.02 Shortness of breath (principal)
CPT/HCPCS: 36415; 71250; 80053; 81001; 83605; 83735; 83880; 84484; 85025; 85379; 87631; 93005; 99284

== ENCOUNTER 2024-03-20 14:04 | Outpatient (CLI) | payer MEDICARE, SELFPAY ==
--- NOTE | 2024-03-20 14:00 | CRLHL7_ITS ---
For Patients: As a result of the Cures Act, medical imaging exams and procedure reports are released immediately into your electronic medical record. You may view this report before your referring provider. If you have questions, please contact your health care provider. CLINICAL HISTORY: Dizziness, carotid bruit TECHNIQUE: The carotid circulations and the vertebral arteries in the neck were examined with whiting-scale ultrasound, color-flow and Doppler spectral analysis. Degrees of stenosis were determined using SRU 2002 Consensus Panel Criteria. FINDINGS: Sonographic images demonstrate bilateral atherosclerotic plaque formation without suspicious soft tissue mass. There was antegrade blood flow demonstrated within the vertebral arteries and the subclavian arteries demonstrated a normal triphasic waveform. The spectral Doppler tracings of the common carotid, internal and external carotid arteries demonstrate some turbulence and spectral broadening within the left mid ICA. There was significant elevation of peak systolic blood flow within the mid left ICA measuring 190 cm/second which would indicate a hemodynamically-significant stenosis by SRU criteria. The ICA/CCA peak systolic velocity ratio measures 1.6 on the right and 1.8 on the left. 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 Less than 50 percent stenosis of the right ICA. Dictated by Sanjeev Hendricks MD @ 03/21/2024 11:19:03 AM (Electronically Signed)
--- OUTSIDE RECORDS SUMMARY | 2024-03-20 14:07 | XMS_ITS | Referral Summary ---
Author Organization [facility] Address [address] [place] [address] Care Team Providers Care Payroll Services Analyst Name Role Phone Tigre Preciado P.A.-C. Primary Care Provider Source Comments Patient records contain information from all sites at [facility]. For routine questions regarding patient records, call [phone] during business hours, M-F 8:00 AM - 5:00 PM Central Time. Record requests for emergency care only can be directed to [phone] at any time.[facility] Allergies Active Allergy Reactions Criticality [...] 400 mg by mouth daily. Active vitamin A,C,T-ptgrez-khq erals (OCUVITE W/LUTEIN) 1,000 Unit-200 mg-60 Unit-2 [...] wheezing. 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 We also discussed management options with vaginal [...] Date Recorded PHQ-2 Score 0 06/26/2021 [facility] [...] AM CDT Legal Sex Female 2:28 PM COATER OPERATOR Gender Identity Not on file Sexual [...] 56.7 kg (125 lb) 05/16/2023 2:41 PM COATER OPERATOR Height 160.3 cm (5' 3.11) 05/26/2022 9:30 AM CS T Body Mass Index 22.07 05/26/2022 9:30 AM COATER OPERATOR Plan of Treatment Not on file Procedures Procedure Name Priority Date/Time Associated Diagnosis Comments OUTSIDE MG MAMMOGRAM Routine 04/01/2022 2:35 PM COATER OPERATOR BMD BONE DENSITY SPINE HIPS RAD - Routine (most inpatients and all outpatients) 07/01/2017 1:41 PM CDT Screening Osteoporosis HCV AB SCRN W/REFLEX TO HCV PCR, S Routine 06/01/2016 10:10 AM COATER OPERATOR from Last 3 Months or Most Recently Relevant to Health Maintenance Results * MM screening mammo BI-Outside Mammogram (04/01/2022 2:35 PM COATER OPERATOR) Narrative IIMS - 07/03/2022 2:31 PM [...] DENSITY SPINE HIPS COMPARISON: 2012, 2007, 2005 Ornamental Plaster Sticker/Model: [employer] FINDINGS: LUMBAR SPINE L1-L4 included unless [...] DENSITY SPINE HIPS COMPARISON: 2012, 2007, 2005 Ornamental Plaster Sticker/Model: [employer] FINDINGS: LUMBAR SPINE L1-L4 included unless [...] HCV PCR, S (medicare) (06/01/2016 10:10 AM COATER OPERATOR) HXHCV Ab [facility] Negative Negative POWERCHART Comment: Drlmqw-ub-sdkryw ratio is <1.00. Test Performed by: [place] [address] [employer] Supervisor: Giacomo Gatica II, M.D., Ph.D. Blood 06/01/2016 10:1 0 AM COATER OPERATOR Luisa Roy M.D. LAB MICROBIOLOGY - BLOOD ORDERABLES Final Result POWERCHART from Last 3 Months or Most Recently Relevant to Health Maintenance [place] [phone] [facility] Care Teams Payroll Services Analyst Relationship Specialty Start Date End Date Tigre Preciado P.A.-C. [address] [place] [phone] PCP - General Family Medicine 10/11/19
--- OUTSIDE RECORDS SUMMARY | 2024-03-20 14:07 | XMS_ITS | Clinical Summary ---
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 We also discussed management options with vaginal estrogen therapy, pessary, or surgical intervention. She is not interested in these options at this time. I recommend she follow up as needed in the future. Osteoporosis 07/20/2017 Personal history of colonic polyps 11/10/2012 Reactive airway disease 07/12/2009 Headache(784.0) 01/09/2009 Immunizations Name Administration Dates Next Due COVID-19 vaccine (extraTKT 30mcg/0.3mL) P F, MDV 02/24/2021 Influenza, IIV3 [...] 159 cm (5' 2.6) 02/29/2020 12:48 PM CONFIGURATION MANAGEMENT ADMINISTRATOR Body Mass Index 22.61 02/29/2020 12:48 PM CONFIGURATION MANAGEMENT ADMINISTRATOR Plan of Treatment Health Maintenance Due Date [...] Code Status Discussion: Not Discussed Care Teams Machine Stripper Cutter Relationship Specialty Start Date End Date Kanchan Granda CHAPLAIN [address] [place] [id number] PCP - General Emergency Medicine 06/02/23
--- OUTSIDE RECORDS SUMMARY | 2024-03-20 14:07 | XMS_ITS ---
Author Organization [facility] Address [address] [place] [address] Care Team Providers Care Electronic Device Repairer Name Role Phone Unavailable Unavailable Unavailable Surgery Details Not on file Complications Check Surgery Details section. Procedure Estimated Blood Loss Check Surgery Details section. Procedure Findings Check Surgery Details section. Procedure Specimens Taken Check Surgery Details section.
--- OUTSIDE RECORDS SUMMARY | 2024-03-20 14:07 | XMS_ITS | Clinical Summary ---
Author Organization [facility] Address [address] [place] [address] Care Team Providers Care Fire Extinguisher Sprinkler Inspector Name Role Phone Tigre Precaido P.A.-C. Primary Care Provider Source Comments Patient records contain information from all sites at [facility]. For routine questions regarding patient records, call [phone] during business hours, M-F 8:00 AM - 5:00 PM Central Time. Record requests for emergency care only can be directed to [phone] at any time.[facility] Allergies Active Allergy Reactions Criticality Noted Date [...] 400 mg by mouth daily. Active vitamin A,C,Q-mihfqs-bnk erals (OCUVITE W/LUTEIN) 1,000 Unit-200 mg-60 Unit-2 [...] wheezing. 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 We also discussed management options with vaginal [...] Score 0 06/26/2021 [facility] Occupat ional Health - Occupational [...] AM CDT Legal Sex Female 2:28 PM CATERING ADMINISTRATIVE ASSISTANT Gender Identity Not on file Sexual Orientation [...] 56.7 kg (125 lb) 05/16/2023 2:41 PM CATERING ADMINISTRATIVE ASSISTANT Height 160.3 cm (5' 3.11) 05/26/2022 9:30 AM CS T Body Mass Index 22.07 05/26/2022 9:30 AM CATERING ADMINISTRATIVE ASSISTANT Plan of Treatment Health Maintenance Due Date [...] OUTSIDE MG MAMMOGRAM Routine 04/01/2022 2:35 PM CATERING ADMINISTRATIVE ASSISTANT BMD BONE DENSITY SPINE HIPS RAD - Routine (most inpatients and all outpatients) 07/01/2017 1:41 PM CDT Screening Osteoporosis HCV AB SCRN W/REFLEX TO HCV PCR, S Routine 06/01/2016 10:10 AM CATERING ADMINISTRATIVE ASSISTANT from Last 3 Months or Most Recently Relevant to Health Maintenance Results * MM screening mammo BI-Outside Mammogram (04/01/2022 2:35 PM CATERING ADMINISTRATIVE ASSISTANT) Narrative IIMS - 07/03/2022 2:31 PM CDT [...] DENSITY SPINE HIPS COMPARISON: 2012, 2007, 2005 Auriculotherapist/Model: [employer] FINDINGS: LUMBAR SPINE L1-L4 included unless otherwise [...] DENSITY SPINE HIPS COMPARISON: 2012, 2007, 2005 Auriculotherapist/Model: [employer] FINDINGS: LUMBAR SPINE L1-L4 included unless otherwise [...] HCV PCR, S (medicare) (06/01/2016 10:10 AM CATERING ADMINISTRATIVE ASSISTANT) HXHCV Ab [facility] Negative Negative POWERCHART Comment: Lqzywy-mi-lfkucj ratio is <1.00. Test Performed by: [place] [address] Product Support Rep: Giacomo Gatica II, M.D., Ph.D. Blood 06/01/2016 10:1 0 AM CATERING ADMINISTRATIVE ASSISTANT Luisa Roy M.D. LAB MICROBIOLOGY - BLOOD ORDERABLES Final Result POWERCHART from Last 3 Months or Most Recently Relevant to Health Maintenance Insurance [facility] Care Teams Fire Extinguisher Sprinkler Inspector Relationship Specialty Start Date End Date Tigre Preciado P.A.-C. [address] [place] [phone] PCP - General Family Medicine 10/11/19
== END 2024-03-20 14:05 | disposition home or self-care (01) ==
PROVIDERS: PCP Nurse Practitioner Family; Visit Provider Nurse Practitioner Family
DX: R09.89 Other specified symptoms and signs involving the circulatory and respiratory systems (principal); I65.23 Occlusion and stenosis of bilateral carotid arteries; R42 Dizziness and giddiness
CPT/HCPCS: 93880

== ENCOUNTER 2024-03-31 08:41 | Outpatient (CLI) | payer MEDICARE, SELFPAY | END 2024-03-31 08:42 | disposition home or self-care (01) | LOC: RAD 08:41 | PROVIDERS: PCP Nurse Practitioner Family; Visit Provider Nurse Practitioner Family | DX: R06.09 Other forms of dyspnea (principal); I07.1 Rheumatic tricuspid insufficiency | CPT/HCPCS: 93306 ==

== ENCOUNTER 2024-06-08 13:31 | Outpatient (CLI) | payer MEDICARE, SELFPAY ==
--- NOTE | 2024-06-08 14:00 | CRLHL7_ITS ---
For Patients: As a result of the Century Cures Act, medical imaging exams and procedure reports are released immediately into your electronic medical record. You may view this report before your referring provider. If you have questions, please contact your health care provider. XR DXA Bone Mineral Density (BMD) Reason for exam: Osteoporosis. Current height (in): 63. Weight (lb): 120. Menopause age: 54. Ethnicity: White. 1. Have you had a previous hip or vertebral fracture? No. 2. Have you had any fractures during your adult life which did not result from significant trauma (e.g., auto accident)? No. 3. Did either of your parents have a hip fracture? No. 4. Do you smoke? No. 5. Have you ever taken Glucocorticoids? No. 6. Do you have rheumatoid arthritis? No. 7. Do you have secondary osteoporosis? No. 8. Do you drink 3 or more alcoholic drinks per day? No. 9. Are you being treated for osteoporosis? Yes. 10. Have you ever taken any of the following medications: Actonel, Evista, Fosamax, Miacalcin, Reclast, Boniva, Forteo, HRT (i.e., estrogen/hormone therapy), Protelos, Prolia, Vitamin D, Calcium, other ??? please specify. ANSWER: Yes, Fosamax (i.e., alendronate), Reclast (i.e., zoledronate), Vitamin D, and Calcium. 11. Do you have any of the following medical conditions: Anorexia or bulimia, asthma or emphysema, end stage renal disease, hyperparathyroidism, any seizure disorders, cancer, inflammatory bowel diseases, hysterectomy, other ??? please specify. ANSWER: No. 12. What was your maximum height (inches)? 64. 13. Do you perform weight bearing exercise regularly? Yes. 14. Do you regularly consume dairy products? Yes. 15. Do you drink caffeinated beverages? Yes. 16. At what age did your period start? 15. 17. Are you premenopausal? No. 18. How many full-term pregnancies have you had? 3. 19. Have you ever missed your period for more than 6 months in a row (not including or menopause)? No. TECHNIQUE: Bone mineral density study was performed using the Medityplus. FINDINGS: The results of the study expressed as bone mineral density (BMD) are as follows: Lumbar spine L1 to L4: BMD: 0.776 g/cm2. T-score: -2.5. Z-score: 0.1 Neck Left: BMD: 0.689 g/cm2. T-score: -1.4. Z-score: 0.7 Right: BMD: 0.609 g/cm2. T-score: -2.2. Z-score: 0.0 Total Left: BMD: 0.720 g/cm2. T-score: -1.8. Z-score: 0.1 Right: BMD: 0.755 g/cm2. T-score: -1.5. Z-score: 0.4 IMPRESSION: Osteoporosis. *Comparison exams done prior to 09/2019 were performed on different unit, [facility]. COMPARISON: Compared with scan of 04/01/2022, the bone mineral density has increased by 12.5 percent at the spine and increased by 9.4 percent at the hip. Leticia Pierce M.D. Diagnostic Radiologist [email or web address] servin/Dictated by: Leticia Pierce MD @ 06/09/2024 8:05:00 AM (Electronically Signed)
--- NOTE | 2024-06-08 14:40 | CRLHL7_ITS ---
For Patients: As a result of the Century Cures Act, medical imaging exams and procedure reports are released immediately into your electronic medical record. You may view this report before your referring provider. If you have questions, please contact your health care provider. BILATERAL SCREENING MAMMOGRAM WITH COMPUTER-AIDED DETECTION AND TOMOSYNTHESIS TECHNIQUE: CC and MLO views were obtained. These mammographic images have been obtained using full-field digital technique. These mammographic images were interpreted with the benefit of computer-aided detection. Breast Tomosynthesis was used in this interpretation. COMPARISON FILM: 04/29/23, 04/01/22, 01/21/21. FINDINGS: The breasts are heterogeneously dense, which may obscure small masses IMPRESSION: There is no radiographic evidence for malignancy. ASSESSMENT: BI-RADS Category 2: Benign RECOMMENDATION: Routine screening mammogram in 1 year. A lay language report of this examination will be provided to the patient. Sanjeev Hendricks M.D. Diagnostic Radiologist [email or web address] Transcribed: 2:45 p.mElda servin/Dictated by: Sanjeev Hendricks MD @ 06/13/2024 12:40:00 PM (Electronically Signed)
== END 2024-06-08 13:32 | disposition home or self-care (01) ==
LOC: RAD 13:32
PROVIDERS: PCP Nurse Practitioner Family; Visit Provider Nurse Practitioner Family
DX: Z12.31 Encounter for screening mammogram for malignant neoplasm of breast (principal); R92.333 Mammographic heterogeneous density, bilateral breasts; M81.0 Age-related osteoporosis without current pathological fracture
CPT/HCPCS: 77063; 77067; 77080

== ENCOUNTER 2024-08-04 08:57 | Outpatient (CLI) | payer MEDICARE, SELFPAY | END 2024-08-04 08:58 | disposition home or self-care (01) | LOC: KYNREF 08:58 | PROVIDERS: PCP Nurse Practitioner Family; Visit Provider Nurse Practitioner Family | DX: R30.0 Dysuria (principal) | CPT/HCPCS: 81001; 87086 ==

== ENCOUNTER 2024-10-24 09:37 | Outpatient (CLI) | payer MEDICARE, SELFPAY | END 2024-10-24 09:38 | disposition home or self-care (01) | PROVIDERS: PCP Nurse Practitioner Family; Visit Provider Nurse Practitioner Family | DX: I10 Essential (primary) hypertension (principal); E11.9 Type 2 diabetes mellitus without complications; M81.0 Age-related osteoporosis without current pathological fracture | CPT/HCPCS: 80053; 82728; 84443; 85025; 85651 ==

== ENCOUNTER 2024-10-27 07:58 | Outpatient (CLI) | payer MEDICARE, SELFPAY | END 2024-10-27 07:59 | disposition home or self-care (01) | LOC: NFLDREF 10-30 15:56 | PROVIDERS: PCP Nurse Practitioner Family; Referring Provider Nurse Practitioner Family; Visit Provider Nurse Practitioner Family | DX: R82.90 Unspecified abnormal findings in urine (principal) | CPT/HCPCS: 81001; 87086 ==

== ENCOUNTER 2024-11-03 10:11 | Emergency (ER) | payer MEDICARE, SELFPAY ==
--- OUTSIDE RECORDS SUMMARY | 2024-09-19 11:41 | XMS_ITS | Encounter Summary ---
Author Organization [facility] Address [address] [place] [address] Care Team Providers Care Fractionation Plant Supervisor Name Role Phone Elsewhere, Pcp Primary Care Provider Unavailabl e Encounter Details Date Type Department Care Team (Latest Contact Info) Description 09/19/2024 11:41 AM CDT - 09/19/2024 11:59 PM CDT Hospital Encounter Department of Laboratory Medicine and Pathology, [facility], in [place], [place] [address] [place] [phone] Duncan Mcgraw M.D. [address] [place] [phone] Osteoporosis Discharge Disposition: Home or Self Care Social History Tobacco Use Types Packs/Day Years Used Date Smoking Tobacco: Former Cigarettes Q uit: 1968 Smokeless Tobacco: Never Alcohol Use Standard Drinks/Week Comments Yes 0 (1 standard drink = 0.6 oz pur e alcohol) Hunger Vital Sign Answer Date Recorded Within [...] things needed for daily living? No 12/01/2019 Comments No Sex and Gender Information Value Date Recorded Sex Assigned at Female 01/14/2021 8:28 AM CDT Legal Sex Female 2:28 PM MARKETING TECHNOLOGIST Gender Identity Not on file Sexual Orientation Not on file documented as of this encounter Medications at Time of Discharge albuterol 90 mcg/actuation inhaler Inhale 2 puffs every 4 (four) hours as needed for wheezing. 8 g 3 07/02/2021 azithromycin (ZITHROMAX) 250 mg tablet Take 1 tablet by mouth as directed. BRONCHITIS 08/11/2022 calcium carbonate-vitamin D3 1,250 mg (500 mg calcium)-400 unit per chewable tablet Chew 1 tablet. 11/07/2009 ELDERBERRY FRUIT ORAL Take 2 tablets by mouth daily. gummies fexofenadine (Prema) 180 mg tablet Take 180 mg by mouth daily. LACTOBACILLUS ACIDOPHILUS (ACIDOPHILUS ORAL) Take by mouth daily. 10/05/2012 losartan (Cozaar) 25 mg tablet Take 1 tablet by mouth daily. 08/19/2024 magnesium 200 mg tablet Take 400 mg by mouth daily. multivitamin tablet Take 1 tablet by mouth daily. 06/28/2009 neomycin-polymyxi n-dexamethasone (Maxitrol) 3.5mg/mL-10,000 unit/mL-0.1 % ophthalmic suspension Administer 1 drop into both eyes 3 (three) times a day. 09/06/2024 SUMAtriptan (IMITREX) 25 mg tablet TAKE 1 TABLET BY MOUTH NEEDED FOR MIGRAINE. MAY REPEAT DOSE ONCE IN 2 HOURS IF MIGRAINE UNRESOLVED. 9 tablet 5 07/31/2022 vitamin A,C,X-ylkqxs-ihnp rals (OCUVITE W/LUTEIN) 1,000 Unit-200 mg-60 Unit-2 mg tablet Take 1 tablet by mouth as needed. zoledronic izov-itivkriA-jxp er (RECLAST) 5 mg/100 mL piggyback Infuse 5 mg into a venous catheter once. Once yearly- last dose 06/10/22 documented as of this encounter Plan of Treatment Not on file documented as of this encounter Procedures Procedure Name Priority Date/Time Associated Diagnosis Comments BETA-CROSSLAPS (BETA-CTX), S Routine 09/19/2024 12:05 PM CDT Osteoporosis 25-HYDROXYVITAMIN D2 AND D3, S Routine 09/19/2024 12:05 PM CDT Osteoporosis CREATININE WITH EGFR, S/P Routine 09/19/2024 12:05 PM CDT Osteoporosis CALCIUM, TOT, S/P Routine 09/19/2024 12: 05 PM CDT Osteoporosis documented in this encounter Results * Calcium, Total (09/19/2024 12:05 PM CDT) Pathologist [facility] Calcium, Total, S 9.6 8.8 - 10.2 mg/dL 09/19/2024 1:11 PM CDT DTL Blood (Blood, Venous) 09/19/2024 12:05 PM CDT 09/19/2024 12:52 PM CDT us Duncan Mcgraw M.D. LAB BLOOD ADD-ON Final Resu lt Performing Organization Address City/[facility]/ZIP Co de Phone Number [facility] [address] [place] [address], [facility] DTL [facility] [address] [place] [address] * (ABNORMAL) Creatinine with Estimated GFR (09/19/2024 12:05 PM CDT) [facility] Creatinine 1.03 0.59 - 1.04 mg/dL 09/19/2024 1:11 PM CDT DTL Estimated GFR (eGFR) 56(L) >=60 mL/min/BSA 09/19/2024 1:11 PM CDT DTL Comment: Estimated GFR calculated using the 2020 CKD_EPI creatinine equation. Blood (Blood, Venous) 09/19/2024 12:05 PM CDT 09/19/2024 12:52 PM CDT us Duncan Mcgraw M.D. LAB BLOOD ADD-ON Final Resu lt Performing Organization Address City/[facility]/ZIP Co de Phone Number [facility] [place] [address] [place] [address], [place] DTL [facility] [address] [place] [address] * (ABNORMAL) Beta-CrossLaps (Beta-CTx) (09/19/2024 12:05 PM CDT) Pathologist [facility] Beta-CrossLaps (B-CTx), S 138(L) pg/mL 09/19/2024 4:37 PM CDT [facility] Comment: ----REFERENCE VALUE---- 148-967 (18-29 y) 150-635 (30-39 y) 131-670 (40-49 y) 183-1060 (50-59 y) 171-970 (60-69 y) 152-858 (>70 y) 136-689 (Premenopausal) 177-1015 (Postmenopausal) Flagging is based on the age-specific reference interval and not menopausal status. Blood (Blood, Venous) 09/19/2024 12:05 PM CDT 09/19/2024 3:58 PM CDT Duncan Mcgraw M.D. LAB BLOOD NON ADD-ON Final Result [facility] [address] [place] [address] [facility] [address] [place] [address] * 25-Hydroxyvitamin D2 and D3 (09/19/2024 12:05 PM CDT) Pathologist [facility] 25-Hydroxy D2 <4.0 ng/mL 09/22/2024 8:16 AM CDT [facility] 25-Hydroxy D3 50 ng/mL 09/22/2024 8:16 AM CDT [facility] 25-Hydroxy D Total 50 ng/mL 2024 8:16 AM CDT [facility] Comment: ----REFERENCE VALUE---- 25-HYDROXY D TOTAL (D2+D3) Optimum levels in the healthy population are 20-50. ----ADDITIONAL INFORMATION---- This test was developed and its performance characteristics determined by [facility] in a manner consistent with CLIA requirements. This test has not been cleared or approved by the U.S. Food and Drug Administration. Blood (Blood, Venous) 09/19/2024 12:05 PM CDT 09/20/2024 7:51 AM CDT us Duncan Mcgraw M.D. LAB BLOOD ADD-ON Final Resu lt [facility] [address] [place] [address] [facility] [address] [place] [address] [place] [address] documented in this encounter Visit Diagnoses Diagnosis Osteoporosis documented in this encounter Additional Health Concerns Assessment Noted Time PHQ-9 Depression Total Score: 1 06/02/19 18 9:34 AM MARKETING TECHNOLOGIST documented as of this encounter Care Teams Fractionation Plant Supervisor Relationship Specialty Start Date End Date Elsewhere, Pcp PCP - General Internal Medicine 09/14/24 documented as of this encounter
--- OUTSIDE RECORDS SUMMARY | 2024-09-19 14:30 | XMS_ITS | Encounter Summary ---
Author Organization [facility] Address [address] [place] [address] Care Team Providers Care Sas Administrator Name Role Phone Elsewhere, Pcp Primary Care Provider Unavailabl e Reason for Referral * Outpatient (Routine) - Authorized Specialty Diagnoses / Procedures Referred By Contac t Referred To Contact Diagnoses Osteoporosis Procedures BMD Bone Density Spine Hips Heidi Ruiz M.D. [address] [place] [address] Phone: tel: fax: [facility] Referral ID Status Reason Start Date Expiration Date V isits Requested Visits Authorized [id number] Authorized 09/28/2024 12/29/2025 1 1 * Outpatient (Routine) - Authorized Specialty Diagnoses / Procedures Referred By Contac t Referred To Contact Endocrinology Diagnoses Osteoporosis Heidi Ruiz M.D. [address] [place] [id number] Phone: tel: fax: [facility] Referral ID Status Reason Start Date Expiration Date V isits Requested Visits Authorized [id number] Authorized 09/28/2024 03/30/2026 1 1 Reason for Visit * Outpatient (Routine) - Closed Specialty Diagnoses / Procedures Referred By Contac t Referred To Contact Endocrinology Diagnoses Osteoporosis Duncan Mcgraw M.D. [address] [place] [id number] Phone: tel: fax: [facility] Referral ID Status Reason Start Date Expiration Date Visits Re quested Visits Authorized [id number] Closed 07/02/2023 12/31/2024 1 1 Encounter Details Date Type Department Care Team (Late st Contact Info) Description 09/19/2024 2:30 PM CDT Office Visit Division of Endocrinology in [place], [place] [address] [place] [address] Heidi Ruiz M.D. [address] [place] [address] Osteoporosis Social History Tobacco Use Types Packs/Day Years Used Date Smoking Tobacco: Former Cigarettes Q uit: 1968 Smokeless Tobacco: Never Tobacco Cessation:Counseling Given: Not Answered Alcohol Use Standard Drinks/Week Comments Yes 0 [...] AM CDT Legal Sex Female 2:28 PM MEDICAL ONCOLOGY PHYSICIAN Gender Identity Not on file Sexual Orientation Not on file documented as of this encounter Last Filed Vital Signs Vital Sign Reading Time Taken Comments Blood Pressure 159/87 09/19/2024 12:27 PM CDT Pulse 80 09/19/2024 12:27 PM CDT Temperature - - Respiratory Rate - - Oxygen Saturation - - Inhaled Oxygen Concentration - - Weight 56.3 kg (124 lb 1.9 oz) 09/19/2024 12:27 PM CDT Height 156.8 cm (5' 1.73) 09/19/2024 12:27 PM C DT Body Mass Index 22.9 09/19/2024 12:27 PM CDT documented in this encounter Consult Notes * Heidi Ruiz M.D. - 09/19/2024 2:30 PM CDT [facility], DIABETES, METABOLISM AND NUTRITION BONE/OSTEOPOROSIS CLINIC SUBJECTIVE CHIEF COMPLAINT / REASON FOR VISIT Osteoporosis The patient verbally consented to an audio recording of their visit to assist with the completion of documentation. HISTORY OF PRESENT ILLNESS Isadora Back is a 79 y.o. female who presents for consultation and evaluation of osteoporosis. Previously seen by Dr. Mcgraw - last visit on 05/26/2022. She was diagnosed with osteoporosis more than 15yrs ago. Past therapies: alendronate (Fosamax) - remote history, stopped after 3-4 months due to groin pain Zoledronic acid 07/08/2022, 09/02/2023 Fracture history: rib fracture- slipped while getting out of the tub -3 yrs ago She notes balance reduced with age Follows with PT Activity: reduced in the winter, looking forward to water aerobics this summer, some walking, raising 13yo grandson, stairs in the home - she exercises caution, uses railing Assistive devices: none Tobacco use: yes - 18-22yo, none since Alcohol use: yes - socially, no heavy use Menstrual history: Menopause at age approx [age]yo. Brief HRT after Dietary calcium intake: 2 servings of dairy or calcium rich food per day Calcium supplement intake: not consistent recently On MVI which contains calcium Vitamin D intake: none recently RISK FACTORS FOR OSTEOPOROSIS/OSTEOPOROTIC FRACTURE No history of hyperthyroidism GERD: Yes. Occasional Tums Kidney stones: no Malabsorption condition, Celiac disease/IBD, major GI surgery/bariatric surgery: no Chemotherapy/Immunosuppressive/Seizure meds: No Hx of radiation: No Rheumatoid arthritis: No Chronic glucocorticoid use including injections: no Family history of osteoporosis: unknown Dental issues/plans for upcoming dental procedures: No though she notes front tooth is being monitored Last dental exam: fall 2023 Reported loss of height to date: 0.5 inch Bone mineral density: Date: 06/08/2024 Results: Left femoral neck -1.4 Left total hip -1.8 Right femoral neck -2.2 Right total hip -1.5 Lumbar spine -2.5 - on personal review, image quality limited- suspect non-diagnostic This represents a +9.4% change at her total T-score mean hip and +12.5% at lumbar spine when compared to previous, which was on 04/01/2022. The following portions of the patient's history were reviewed and updated as appropriate: allergies, current medications, family history, medical history, social history, surgical history. REVIEW OF SYSTEMS REVIEW OF SYSTEMS OBJECTIVE VITAL SIGNS BP 159/87 (BP Location: Right arm, Patient Position: Sitting, Cuff Size: Regular) Pulse 80 Ht 156.8 cm Wt 56.3 kg LMP (LMP Unknown) BMI 22.90 kg/m?? PHYSICAL EXAMINATION General: Alert. No acute distress. HEENT: Normocephalic, atraumatic. Heart: Regular Pulse Rate. Lungs: Unlabored breathing pattern. Normal rate. Skin: Exposed areas of skin are clean, dry, and intact with no evidence of rash. Psych: Normal mood and affect. Spine: No tenderness to palpation of the entire spine. Kyphosis and scoliosis noted. DIAGNOSTICS Lab Results Component Value Date CALCIUM 9.6 09/19/2024 ALBUMIN 4.3 10/18/2020 LABPHOS 3.7 05/16/2023 ALKPHOS 98 10/18/2020 CREATININE 1.03 09/19/2024 EGFR 56 (L) 09/19/2024 MG 2.3 05/16/2023 TSH 4.0 11/08/2019 25OHVITDTTL 57 05/26/2022 Estimated Creatinine Clearance: 40.7 mL/min (by C-G formula based on SCr of 1.03 mg/dL). ASSESSMENT / PLAN Mrs. Back is a 79 y.o. female who presents for evaluation of osteoporosis. #1 Osteoporosis - Endocrinology office visit (clinic) - Creatinine with Estimated GFR; Future; Expected date: 09/19/2024 - Endocrinology office visit (clinic); Future; Expected date: 09/28/2026 - 25-Hydroxyvitamin D2 and D3; Future; Expected date: 09/28/2026 - Calcium, Total; Future; Expected date: 09/28/2026 - Creatinine with Estimated GFR; Future; Expected date: 09/28/2026 - BMD Bone Density Spine Hips; Future; Expected date: 09/28/2026 Assessment & Plan Osteoporosis Significant improvement in bone density noted with current zoledronic acid (Reclast) treatment. Calcium intake is suboptimal. Discussed risks and benefits of continuing zoledronic acid. Plan for a drug holiday after the third dose to minimize risks such as ONJ and AFF. - Optimize calcium intake to 1200 mg per day through diet and supplementation, considering almond milk as a source. - Ensure adequate vitamin D levels; await vitamin D lab result. - Continue physical therapy for strengthening, posture, and fall prevention. - Administer third dose of zoledronic acid (Reclast) after confirming stable kidney function. Creatinine elevation noted on 09/19/2024 - recommend repeating to assess trend before proceeding with reclast. Pt advised to optimize hydration and avoid NSAIDs. Pending result, anticipate proceeding with 3rd dose of reclast at [facility]. - Plan for a drug holiday after the third dose of Reclast. - Repeat bone density test in two years. - Emphasized home safety measures. Continue physical therapy, fall prevention. Follow-up in 2 yrs is reasonable. Heidi Ruiz M.D. Endocrinology documented in this encounter Plan of Treatment Scheduled Orders Name Type Priority Associated Diagnoses Orde r Schedule 25-Hydroxyvitamin D2 and D3 Lab Routine Osteoporosis Expected: 09/28/2026, Expires: 03/30/2027 Calcium, Total Lab Routine Osteoporosis Expected: 09/28/2026, Expires: 03/30/2027 Creatinine with Estimated GFR Lab Routine Osteoporosis Expected: 09/28/2026, Expires: 03/30/2027 BMD Bone Density Spine Hips Imaging RAD - Routine (most inpatients and all outpatients) Osteoporosis Expected: 09/28/2026, Expires: 03/30/2027 Scheduled Referrals Name Type Priority Associated Diagnoses Order Schedule Endocrinology office visit (clinic) Outpatient Referral Routine Osteoporosis Expected: 09/28/2026, Expires: 03/30/2027 documented as of this encounter Visit Diagnoses Diagnosis Osteoporosis documented in this encounter Additional Health Concerns Assessment Noted Time PHQ-9 Depression Total Score: 1 06/02/19 18 9:34 AM MEDICAL ONCOLOGY PHYSICIAN documented as of this encounter Care Teams Sas Administrator Relationship Specialty Start Date End Date Elsewhere, Pcp PCP - General Internal Medicine 09/14/24 documented as of this encounter
--- OUTSIDE RECORDS SUMMARY | 2024-11-03 10:13 | XMS_ITS | Encounter Summary ---
Author Organization [facility] Address [address] [place] [address] Care Team Providers Care Bmw Service Technician Name Role Phone Elsewhere, Pcp Primary Care Provider Unavailabl e Encounter Details Date Type Department Care Team (Latest Contact Info) Description 09/22/2024 Results Follow-Up Division of Endocrinology in [place], [place] [address] [place] [address] Duncan Mcgraw M.D. [address] [place] [address] 25-Hydroxyvitamin D2 and D3, Beta-CrossLaps (Beta-CTx), Creatinine with Estimated GFR, Calcium, Total Social History Tobacco Use Types Packs/Day Years [...] AM CDT Legal Sex Female 2:28 PM MANAGEMENT AIDE Gender Identity Not on file Sexual Orientation Not on file documented as of this encounter Miscellaneous Notes * Result Encounter Note - Duncan Mcgraw M.D. - 09/22/2024 8:21 AM CDT Total vitamin-D level 50 ng/mL (optimal range for skeletal health 30-50, safe/acceptable range up to 60 ng/mL. Vitamin-D level 2 years ago was 57 ng/mL. No change in vitamin-D dosing is needed at thecurrent time. Would recheck vitamin-D level in 1 year. documented in this encounter Plan of Treatment Not on file documented as of this encounter Visit Diagnoses Not on filedocumented in this encounter Additional Health Concerns Assessment Noted Time PHQ-9 Depression Total Score: 1 06/02/19 18 9:34 AM MANAGEMENT AIDE documented as of this encounter Care Teams Bmw Service Technician Relationship Specialty Start Date End Date Elsewhere, Pcp PCP - General Internal Medicine 09/14/24 documented as of this encounter
--- OUTSIDE RECORDS SUMMARY | 2024-11-03 10:13 | XMS_ITS | Clinical Summary ---
Author Organization [facility] Address [address] [place] [address] Care Team Providers Care Bridge Operator Slip Name Role Phone Kanchan Granda NP Primary Care Provider [phone] Allergies Active Allergy Reactions Criticality Noted Date [...] Azithromycin Nausea Only,Headache 02/04/2009 Mood changes Medications Calcium-Cholecalc iferol, D3, (CALCIUM 500+D) 500 mg(1,250mg) -400 unit chewable tabletIndications :Loose stools Take 1 tablet by mouth once daily. 0 0 Active SUMAtriptan (IMITREX) 25 mg tabletIndications :Headache(784.0) TAKE ONE TABLET BY MOUTH EVERY 2 HOURS NEEDED FOR MIGRAINE. MAX DOSE: 200MG PER 24 HOURS. 9 tablet 5 2 Active Additional Information Patient taking differently:OralQ 2H PRN, Reported on 01/16/2020 vit A,C and L-thjkol-lymxemor (OCUVITE WITH LUTEIN) 1,000 unit-200 mg-60 unit-2 mg tab Take 1 Tab by mouth once daily. Active Magnesium 200 mg tab Take 400 mg by mouth once daily. Active cyanocobalamin (VITAMIN B12) 100 mcg tablet Take 100 mcg by mouth once daily. Active nystatin (MYCOSTATIN) 100,000 unit/mL suspension Take 500,000 units by mouth. 0 Active MULTIVITAMIN ORAL Take 1 tablet by mouth once daily. With elderberry Active vit A/vit C/bioflav/Zn/Herb 25 (ECHINACEA ACZ ORAL) Take 1 tablet by mouth once daily. Active ondansetron (ZOFRAN) 4 mg tabletIndications :History of colonic polyps Take 1 tablet by mouth every 8 hours if needed for Nausea/Vomiting . Take one tablet prior to each half of the Golytely 2 tablet 0 Active codeine-guaiFENes in (ROBITUSSIN AC) 10-100 mg/5 mL liquidIndications :Cough,Acute bronchiolitis due to unspecified organism Take 10 mL by mouth at bedtime if needed for Cough. Max dose 60 mL per 24 hrs. 118 mL 1 Active Active Problems Problem Noted Date Diagnosed [...] will continue to work with her current bone process operator. We also discussed management options with vaginal estrogen therapy, pessary, or surgical intervention. She is not interested in these options at this time. I recommend she follow up as needed in the future. 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 Not on file Not on file N ot on file Obstetrics History Para Term AB [...] 159 cm (5' 2.6) 02/29/2020 12:48 PM FABRIC SOURCER Body Mass Index 22.61 02/29/2020 12:48 PM FABRIC SOURCER Plan of Treatment Health Maintenance Due Date Last Done Comments Depression screening for age 12+ 1959 BMI (ht and wt on same day) for age 18+ 1965 Hepatitis C screening for ag e 18-79 1965 Pneumococcal series for age 50+ (1 of 1 - PCV) 1997 Zoster (shingles) series for age 50+ (1 of 2) 1997 DEXA/DXA scan for age 65+ 2012 Medicare Wellness for age 65+ 2012 Tetanus booster 01/23/2013 01/23/2003 RSV vaccine for adults or (1 - 1-dose 75+ series) 2022 COVID-19 vaccine series ( season) 2023 02/24/2021, 07/04/2020, 06/06/2020 Influenza Vaccine (#1) 2024 , 02/19/2020, 01/21/2009 Hepatitis B series for 19+ Aged Out N o longer eligible based on patient's age to complete this topic Insurance [employer] MEDICARE ADVANTAGE MEDICARE PART B HB ONLY [facility] [facility] Advance Directives * Full Code (Latest Code Status on File) Date Activated Date Inactivated Comments 03/13/2020 7:36 AM 03/13/2020 1:19 PM Question Answer Comments Code Status Discussion: Not Discussed Care Teams Bridge Operator Slip Relationship Specialty Start Date End Date Kanchan Granda NP [address] [place] [address] PCP - General Emergency Medicine 06/02/23
--- OUTSIDE RECORDS SUMMARY | 2024-11-03 10:14 | XMS_ITS | Clinical Summary ---
Author Organization [facility] Address [address] [place] [address] Care Team Providers Care Hot Box Spotter Name Role Phone Elsewhere, Pcp Primary Care Provider Unavailabl e Source Comments Patient records contain information from all sites at [facility]. For routine questions regarding patient records, call [phone] during business hours, M-F 8:00 AM - 5:00 PM Central Time. Record requests for emergency care only can be directed to [phone] at any time.[facility] Allergies Active Allergy Reactions Criticality Noted Date [...] (Sulfonamide Antibiotics) Nausea Only Low 02/28/2013 Medications LACTOBACILLUS ACIDOPHILUS (ACIDOPHILUS ORAL) Take by mouth daily. 3 Active calcium carbonate-vitami n D3 1,250 mg (500 mg calcium)-400 unit per chewable tablet Chew 1 tablet. 0 Active multivitamin tablet Take 1 tablet by mouth daily. 0 Active magnesium 200 mg tablet Take 400 mg by mouth daily. Active vitamin A,C,E-dgrmuv-uhm erals (OCUVITE W/LUTEIN) 1,000 Unit-200 mg-60 Unit-2 mg tablet Take 1 tablet by mouth as needed. Active albuterol 90 mcg/actuation inhaler Inhale 2 puffs every 4 (four) hours as needed for wheezing. 8 g 3 2 Active zoledronic dbdy-adpzsdaG-cq ter (RECLAST) 5 mg/100 mL piggyback Infuse 5 mg into a venous catheter once. Once yearly- last dose 06/10/22 Active SUMAtriptan (IMITREX) 25 mg tablet TAKE 1 TABLET BY MOUTH NEEDED FOR MIGRAINE. MAY REPEAT DOSE ONCE IN 2 HOURS IF MIGRAINE UNRESOLVED. 9 tablet 5 3 Active azithromycin (ZITHROMAX) 250 mg tablet Take 1 tablet by mouth as directed. BRONCHITIS 3 Active losartan (Cozaar) 25 mg tablet Take 1 tablet by mouth daily. 5 Active neomycin-polymyx in-dexamethasone (Maxitrol) 3.5mg/mL-10,000 unit/mL-0.1 % ophthalmic suspension Administer 1 drop into both eyes 3 (three) times a day. 5 Active ELDERBERRY FRUIT ORAL Take 2 tablets by mouth daily. gummies Active fexofenadine (Prema) 180 mg tablet Take 180 mg by mouth daily. 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 We also discussed management options with vaginal [...] Encounters Date Type Department Care Team Description 09/22/2024 Results Follow-Up Division of Endocrinology in [address] [address] Duncan Mcgraw M.D. 25-Hydroxyvitamin D2 and D3, Beta-CrossLaps (Beta-CTx), Creatinine with Estimated GFR, Calcium, Total 09/19/2024 2:30 PM CDT Office Visit Division of Endocrinology in [address] [address] Heidi Ruzi M.D. Osteoporosis 09/19/2024 11:41 AM CDT - 09/19/2024 11:59 PM CDT Hospital Encounter Department of Laboratory Medicine and Pathology, [facility], in [address] [address] Duncan Mcgraw M.D. Osteoporosis Discharge Disposition: Home or Self Care 09/14/2024 10:15 AM CDT Clinical Communication Virtual Review in [address] [phone] Pre-visit Intake 08/12/2024 Orders Only Division of Endocrinology in [address] [address] Duncan Mcgraw M.D. from Last 3 Months Immunizations Immunization Administration Dates Next Due Influenza high dose [...] AM CDT Legal Sex Female 2:28 PM FOOD PRODUCT INSPECTOR Gender Identity Not on file Sexual Orientation Not on file Last Filed Vital Signs Vital Sign Reading Time Taken Comments Blood Pressure 159/87 09/19/2024 12:27 PM CDT Pulse 80 09/19/2024 12:27 PM CDT Temperature 36.7 C (98.1 F) 09/02/2023 10:32 AM CDT Respiratory Rate 16 09/02/2023 10:32 AM CDT Oxygen Saturation 99% 08/15/2022 12:16 PM CDT Inhaled Oxygen Concentration - - Weight 56.3 kg (124 lb 1.9 oz) 09/19/2024 12:27 PM CDT Height 156.8 cm (5' 1.73) 09/19/2024 12:27 PM C DT Body Mass Index 22.9 09/19/2024 12:27 PM CDT Plan of Treatment Health Maintenance Due Date Last Done Comments Bone Density Scan Monitoring 02/24/2024 02/23/2022 (Performed elsewhere), 07/01/2017 Depression Screening (Annual PHQ-2) 04/19/2024 Fall Risk Screen (Annual) 04/19/2024 Potassium Level 05/16/2024 05/16/2023, 07/0 05/2020, 11/08/2019, Additional history exists Sodium Level 05/16/2024 05/16/2023, 07/0 05/2020, 11/08/2019, Additional history exists COVID-19 Vaccine ( season) 2024 12/27/2023, 03/29/2023, 04/03/2022, Additional history exists Influenza Vaccine (#1) 2025 , 01/21/2023, 01/19/2022, Additional history exists Creatinine Level (Kidney Function Test) 09/19/2025 09/19/2024, 05/16/2023, 05/26/2022, Additional history exists DTaP,Tdap,and Td Vaccines (3 - Td or Tdap) 01/21/2033 01/21/2023, 04/03/2013, 01/23/2003 Pneumococcal vaccine (50+ years) Completed 05/29/2014, 04/08/2012 Hepatitis C Screening Completed 06/01/2016 Colonoscopy Discontinued 03/13/2020, 10/18, 11/10/2012 Colorectal Cancer Surveillance Discontinued Mammogram Discontinued 04/01/2022, 08/2020, 11/21/2019, Additional history exists RSV vaccine - (32-36 weeks) or 60+ years Completed 06/07/2024 Zoster Vaccines Completed 08/14/2024, 03/27/2024 CT Colonography Discontinued Cologuard Discontinued IPV Vaccines Aged Out No longer eligi ble based on patient's age to complete this topic Procedures Procedure Name Priority Date/Time Associated Diagnosis Comments CALCIUM, TOT, S/P Routine 09/19/2024 12: 05 PM CDT Osteoporosis CREATININE WITH EGFR, S/P Routine 09/19/2024 12:05 PM CDT Osteoporosis BETA-CROSSLAPS (BETA-CTX), S Routine 09/19/2024 12:05 PM CDT Osteoporosis 25-HYDROXYVITAMIN D2 AND D3, S Routine 09/19/2024 12:05 PM CDT Osteoporosis BASIC METABOLIC PANEL, S/P Routine 05/16/2023 3:35 PM FOOD PRODUCT INSPECTOR Injury Head Initial OUTSIDE MG MAMMOGRAM Routine 04/01/2022 2:35 PM FOOD PRODUCT INSPECTOR BMD BONE DENSITY SPINE HIPS RAD - Routine (most inpatients and all outpatients) 07/01/2017 1:41 PM CDT Screening Osteoporosis HCV AB SCRN W/REFLEX TO HCV PCR, S Routine 06/01/2016 10:10 AM FOOD PRODUCT INSPECTOR from Last 3 Months or Most Recently Relevant to Health Maintenance Results * (ABNORMAL) Beta-CrossLaps (Beta-CTx) (09/19/2024 12:05 PM CDT) Beta-CrossLaps (B-CTx), S 138(L) pg/mL 09/19/2024 4:37 PM CDT [facility] Comment: ----REFERENCE VALUE---- 148-967 (18-29 y) 150-635 (30-39 y) 131-670 (40-49 y) 183-1060 (50-59 y) 171-970 (60-69 y) 152-858 (>70 y) 136-689 (Premenopausal) 177-1015 (Postmenopausal) Flagging is based on the age-specific reference interval and not menopausal status. Blood (Blood, Venous) 09/19/2024 12:05 PM CDT 09/19/2024 3:58 PM CDT us Duncan Mcgraw M.D. LAB BLOOD NON ADD-ON Final Result [facility] [address] [place] [address] [facility] [address] [place] [address] * 25-Hydroxyvitamin D2 and D3 (09/19/2024 12:05 PM CDT) Pathologist [facility] 25-Hydroxy D2 <4.0 ng/mL 09/22/2024 8:16 AM CDT [facility] 25-Hydroxy D3 50 ng/mL 09/22/2024 8:16 AM CDT [facility] 25-Hydroxy D Total 50 ng/mL 2024 8:16 AM CDT [facility] Comment: ----REFERENCE VALUE---- 25-HYDROXY D TOTAL (D2+D3) Optimum levels in the healthy population are 20-50. ----ADDITIONAL INFORMATION---- This test was developed and its performance characteristics determined by [facility] in a manner consistent with CLIA requirements. This test has not been cleared or approved by the U.S. Food and Drug Administration. Blood (Blood, Venous) 09/19/2024 12:05 PM CDT 09/20/2024 7:51 AM CDT us Duncan Mcgraw M.D. LAB BLOOD ADD-ON Final Resu lt Performing Organization Address [facility] Co de Phone Number [facility] [address] [place] [address] [facility] [address] [place] [address] [place] [address] * (ABNORMAL) Creatinine with Estimated GFR (09/19/2024 12:05 PM CDT) Creatinine 1.03 0.59 - 1.04 mg/dL 09/19/2024 1:11 PM CDT DTL Estimated GFR (eGFR) 56(L) >=60 mL/min/BSA 09/19/2024 1:11 PM CDT DTL Comment: Estimated GFR calculated using the 2020 CKD_EPI creatinine equation. Blood (Blood, Venous) 09/19/2024 12:05 PM CDT 09/19/2024 12:52 PM CDT us Duncan Mcgraw M.D. LAB BLOOD ADD-ON Final Resu lt Performing Organization Address [facility] Co de Phone Number [facility] [address] [place] [address], [facility] DTL [facility] [address] [place] [address] * Calcium, Total (09/19/2024 12:05 PM CDT) Calcium, Total, S 9.6 8.8 - 10.2 mg/dL 09/19/2024 1:11 PM CDT DTL Blood (Blood, Venous) 09/19/2024 12:05 PM CDT 09/19/2024 12:52 PM CDT us Duncan Mcgraw M.D. LAB BLOOD ADD-ON Final Resu lt [facility] [address] [place] [address], [place] DTL [facility] [address] [place] [address] * (ABNORMAL) Basic Metabolic Panel (05/16/2023 3:35 PM FOOD PRODUCT INSPECTOR) Potassium, P 4.3 3.6 - 5.2 mmol/L 05/16/2023 4:40 PM FOOD PRODUCT INSPECTOR OWAT Sodium, P 134(L) 135 - 145 mmol/L 05/16/2023 4:40 PM FOOD PRODUCT INSPECTOR OWAT Chloride, P 97(L) 98 - 107 mmol/L 05/16/2023 4:40 PM FOOD PRODUCT INSPECTOR OWAT Bicarbonate, P 24 22 - 29 mmol/L 05/16/2023 4:40 PM FOOD PRODUCT INSPECTOR OWAT Anion Gap, P 13 7 - 15 05/16/2023 4:40 PM FOOD PRODUCT INSPECTOR OWAT BUN (Blood Urea Nitrogen), P 16 6 - 21 mg/dL 05/16/2023 4:40 PM FOOD PRODUCT INSPECTOR OWAT Creatinine 0.81 0.59 - 1.04 mg/dL 05/16/2023 4:40 PM FOOD PRODUCT INSPECTOR OWAT Estimated GFR (eGFR) 75 >=60 mL/min/BSA 05/16/2023 4:40 PM FOOD PRODUCT INSPECTOR OWAT Comment: Estimated GFR calculated using the 2020 CKD_EPI creatinine equation. Calcium, Total, P 9.8 8.8 - 10.2 mg/dL 05/16/2023 4:40 PM FOOD PRODUCT INSPECTOR OWAT Glucose, P 102 70 - 140 mg/dL 05/16/2023 4:40 PM FOOD PRODUCT INSPECTOR OWAT Blood (Blood, Venous) 05/16/2023 3:35 PM FOOD PRODUCT INSPECTOR 05/16/2023 4:22 PM FOOD PRODUCT INSPECTOR us Zoe Hope M.D., M.S. LAB BLOOD ADD-ON Final Resu lt [facility] [address] [place] [address], [place] OWAT [facility] [place] [address] [place] [address] * MM screening mammo BI-Outside Mammogram (04/01/2022 2:35 PM FOOD PRODUCT INSPECTOR) Narrative IIMS - 07/03/2022 2:31 PM [...] System IMG BI PROCEDURES Final R esult IINY NA * BMD Bone Density Spine Hips (07/01/2017 1:41 PM CDT) Anatomical Region Laterality Modality Hip, Lumbar Spine N/A Radiographic I maging 07/01/2017 2:57 PM CDT Impressions 07/01/2017 2:59 PM CDT Impression: Osteoporosis. Narrative 07/01/2017 2:59 PM CDT EXAM: BMD BONE DENSITY SPINE HIPS COMPARISON: 2012, 2007, 2005 [employer] Sales Representative/Model: [id number] FINDINGS: LUMBAR SPINE L1-L4 included unless otherwise [...] DENSITY SPINE HIPS COMPARISON: 2012, 2007, 2005 [employer] Sales Representative/Model: [id number] FINDINGS: LUMBAR SPINE L1-L4 included unless otherwise [...] HCV PCR, S (medicare) (06/01/2016 10:10 AM FOOD PRODUCT INSPECTOR) HXHCV Ab [facility] Negative Negative POWERCHART Comment: Yfptiu-qu-ljpfnn ratio is <1.00. Test Performed by: [place] [address] [employer] Range Feeder: Giacomo Gatica II, M.D., Ph.D. Blood 06/01/2016 10:1 0 AM FOOD PRODUCT INSPECTOR Luisa Roy M.D. LAB MICROBIOLOGY - BLOOD ORDERABLES Final Result POWERCHART from Last 3 Months or Most Recently Relevant to [place] [address] [facility] Care Teams Hot Box Spotter Relationship Specialty Start Date End Date Elsewhere, Pcp PCP - General Internal Medicine 09/14/24
[2024-11-03 10:26] VITALS: BP 199/96; PULSE 85; RESP 18; TEMP 37.1; O2SAT 99; BMI 21.9
--- NOTE | 2024-11-03 10:57 | ED_ITS ---
HPI - General Adult General Chief complaint: Weakness Stated complaint: high Blood Pressure, dizziness Time Seen by Provider: 11/03/24 10:57 History of Present Illness HPI narrative: Patient presents to the emergency department complaining of general fatigue and weakness. Patient states these symptoms have been going on a couple of months. Patient states her symptoms are getting worse. Patient denies being ill otherwise. Patient was referred to cardiology by primary care for her symptoms but her appointment isn't until November. 79-year-old woman presenting to the emergency department with concern weakness. Has just been feeling frequently often generally weak or woozy or wobbly. Not exactly dizzy. Has had to take her 's arm before. Sounds like she can feel short of breath but this is more related to fatigue perhaps. No cough or cold symptoms described. Has started some workup with primary care provider. Some of the symptoms seem to have begun since starting treatment for high blood pressure. Review of record shows a slightly lower sodium; apparently she has struggled with this. Does have a history of headaches and migraine headaches. She says she has headaches all the time but all of this has really gotten better if she has gotten older. Does not sound like she has had a migraine in some time. Does recall an episode few weeks ago in denominational where she had a more abrupt onset of this sense of wooziness. Echocardiogram from March last year looked quite good. Does have some degree of neuropathy in her feet in particular. Is more upset that is struggling to find energy to do things with her visiting granddaughters. Related Data Previous Rx's ?Medication ?Instructions ?Recorded sumatriptan succinate 25 mg tablet See Rx Instructions PO .COMPLEX 02/29/24 #12 tabs losartan 25 mg tablet (Cozaar) 25 mg PO QDAY #90 tabs 08/18/24 albuterol sulfate 90 mcg/actuation 2 puff inhalation Q 4-6H PRN 08/28/24 aerosol inhaler shortness of breath or wheez ing #8.5 grams nitrofurantoin 100 mg PO ONCE PRN UTI Sympt oms #7 09/28/24 monohydrate/macrocrystals 100 mg caps capsule (Macrobid) Allergies Allergy/AdvReac Type Severity Reaction Status Date / Time cephalexin (From Infantium) Allergy Severe Difficulty Verified 11/03/24 10:34 Swallowing metronidazole Allergy Verified 11/03/24 10:34 cefuroxime AdvReac Verified 11/03/24 10:34 ciprofloxacin AdvReac Tendonitis, Verified 11/03/24 10:34 myalgia epinephrine (From Xylocaine AdvReac Verified 11/03/24 10:34 with Epinephrine) fluconazole AdvReac Verified 11/03/24 10:34 latex AdvReac Rash Verified 11/03/24 10:34 lidocaine (From Xylocaine AdvReac Verified 11/03/24 10:34 with Epinephrine) Sulfa (Sulfonamide AdvReac Nausea Verified 11/03/24 10:34 Antibiotics) Review of Systems Status of ROS: Reports: 6 or more systems reviewed and unremarkable except as noted in History and below [facility] Medical History UTI symptoms ?R39.9 - Unspecified symptoms and signs involving the genitourinary system (ICD-10) Microscopic colitis, unspecified ?K52.839 - Microscopic colitis, unspecified (ICD-10) Hx of colonic polyp ?Z86.010 - Personal history of colonic polyps (ICD-10) Hx of migraine headaches ?Z86.69 - Personal history of other diseases of the nervous system and sense organs (ICD-10) History of cystocele ?Z87.448 - Personal history of other diseases of urinary system (ICD-10) History of oral candidiasis ?Z86.19 - Personal history of other infectious and parasitic diseases (ICD-1 0) Hx of peripheral neuropathy ?Z86.69 - Personal history of other diseases of the nervous system and sense organs (ICD-10) Hyponatremia ?E87.1 - Hypo-osmolality and hyponatremia (ICD-10) History of anxiety ?Z86.59 - Personal history of other mental and behavioral disorders (ICD-10) History of diverticulosis ?Z87.19 - Personal history of other diseases of the digestive system (ICD-10) Hx of scoliosis ?Z87.39 - Personal history of other diseases of the musculoskeletal system and connective tissue (ICD-10) Hx of fracture of rib ?Z87.81 - Personal history of (healed) traumatic fracture (ICD-10) Degenerative disc disease at L5-S1 level ?M51.37 - Other intervertebral disc degeneration, lumbosacral region (ICD-10) Surgical History History of lumpectomy of right breast ?Z98.890 - Other specified postprocedural states (ICD-10) Hx of colonoscopy ?Z98.890 - Other specified postprocedural states (ICD-10) Hx laparoscopic cholecystectomy ?Z90.49 - Acquired absence of other specified parts of digestive tract (ICD- 10) Family History Brother Laryngeal cancer Father Laryngeal cancer High blood pressure Mother Breast cancer COPD (chronic obstructive pulmonary disease) Diabetes High blood pressure Macular degeneration Aunt Breast cancer Sister Coronary artery disease Pacemaker Retinal detachment Social History Narrative: . 3 children. Exercises daily. Non smoker. Alcohol rare. No illicit drug use. What is your current living situation?: I presently have a place to live In the past 12 months, utilities in danger of being shut off: no In past 12 months, lack of transportation kept you from medical appts, meetings, work, or getting things needed for daily living: no In the past 12 mos, have been you worried that your food would run out before you had money to buy more?: never true In the past 12 mos, the food you bought just didn't last and you didn't have money to buy more?: never true Smoking Status: Never smoker Non-prescribed substance use: denies use How often does anyone, including family, friends and others, physically hurt you : never How often does anyone, including family, friends and others, insult or talk down to you: never How often does anyone, including family, friends and others, threaten you with harm: never How often does anyone, including family, friends and others, scream or curse at you: never Exam Narrative: Exam Narrative: Pleasant. NAD. Skin is warm and dry. Moving all extremities without difficulty. Normal [id number]. Cranial nerves 2-12 intact. Eyes without nystagmus. Head is atraumatic. Neck is supple nontender. Lungs are clear. Heart in regular rate and rhythm without murmur rub or gallop. Well-perfused peripherally. No edema. Const: Vital Signs, click to edit/add: Vital Signs - 24 hr 11/03/24 10:26 Temperature 98.8 F Pulse Rate [Right Pulse Oximeter] 85 Respiratory Rate 18 Blood Pressure [Ri ght Upper Arm] 199/96 H Pulse Oximetry 99 Oxygen Delivery Me thod Room Air Documenting provider has reviewed patient's vital signs: yes Course Vital Signs Vital signs: Initial Vital Signs Temperature 98.8 F 11/03/24 10:26 Temperature Source Temporal Artery Scan 11/03/24 10:26 Pulse Rate 85 11/03/24 10:26 Pulse Rhythm Regular 11/03/24 10:26 Pulse Strength 3+ Normal 11/03/24 10:26 Respiratory Rate 18 11/03/24 10:26 Blood Pressure 199/96 H 11/03/24 10:26 Blood Pressure Mean 130 H 11/03/24 10:26 Blood Pressure Position Sitting 11/03/24 10:26 Pulse Oximetry 99 11/03/24 10:26 Oxygen Delivery Method Room Air 11/03/24 10:26 Vital Signs Temperature 98.8 F 11/03/24 10:26 Pulse Rate 85 11/03/24 10:26 Respiratory Rate 18 11/03/24 10:26 Blood Pressure 199/96 H 11/03/24 10:26 Pulse Oximetry 99 11/03/24 10:26 Oxygen Delivery Method Room Air 11/03/24 10:26 Temperature 98.8 F 11/03/24 13:20 Pulse Rate 85 11/03/24 13:20 Respiratory Rate 18 11/03/24 13:20 Blood Pressure 154/87 H 11/03/24 13:20 Pulse Oximetry 99 11/03/24 10:26 Oxygen Delivery Method Room Air 11/03/24 10:26 Medical Decision Making [facility] Narrative Medical decision making narrative: Symptoms might be related to progressive hyponatremia given her history. Could have other underlying neuro degenerative disorder though does not appear to be present in family. Does not appear to be experiencing infectious etiology at this point. Other than hypertension recent cardiac evaluation is look good. Chronic anxiety could be contributing though I do not think would explain all of her symptoms. Does not have symptoms to the level of vestibular neuritis. Unsteadiness could be related to neuropathy. All this amplified with deconditioning over time perhaps. I do not see that various vitamin levels have been checked recently. TSH recently was normal. Stress in the home noted caring for a teenager for daughter with bipolar disorder. Monitored on jet aircraft servicer during time in the emergency department without event. Labs are generally reassuring. Due to complaints of chronic fatigue did add on vitamin level is anticipating follow-up primary care for results. Would note though that red cell indices are normal. Seemed a little improved during time in emergency department. Blood pressure certainly improve the still mildly elevated. Orthostatics done during time in the emergency department were normal. See patient discharge plan further discussion Stay well-hydrated. Continue to try to get quality and regular sleep. Yes I think acupuncture or massage might do you good. Spend time outside. Some labs are pending here for your follow-up appointment. I would consider holding your losartan blood pressure medication for 1-2 weeks since timing of the symptoms has correlated somewhat with initiating this treatment. Follow up appointment is scheduled at the [facility] on 11/09 with an 11:15am appointment time. If you have any questions or need to reschedule, please call [phone]. Medical Records Medical records reviewed: Yes I reviewed the patient's medical records Lab Data Lab results reviewed: Yes I reviewed the patient's lab results Labs: Lab Results 11/03/24 11/03/24 11/03/24 Range/Units 11:10 11:17 12:51 WBC 9.53 (4.50-11.00) K/uL RBC 4.50 (4.00-5.20) m/uL Hgb 14.2 (12.0-16.0) gm/dL Hct 41.9 (33.0-51.0) % MCV 93 (80-100) fL MCH 32 (26-34) pg MCHC 34 (32-36) gm/dL RDW Coeff of Nati 11.9 (11.5-15.5) % Plt Count 375 (140-440) K/uL Neut % (Auto) 76.3 H (42.0-72.0) % Lymph % (Auto) 18.2 L (20-44) % Simpson % (Auto) 4.5 (0.0-11.0) % Eos % (Auto) 0.5 (0.0-7.0) % Baso % (Auto) 0.4 (0.0-3.0) % Neut # (Auto) 7.30 H (1.7-7.0) K/uL Lymph # (Auto) 1.70 (0.90-2.90) K/uL Simpson # (Auto) 0.40 (0.00-0.90) K/UL Eos # (Auto) 0.05 (0.00-0.50) K/uL Baso # (Auto) 0.04 (0.00-0.30) K/uL Abs Immat Gran (auto) 0.01 (0.00-0.30) K/uL Imm/Tot Granulo (auto) 0.1 % Sodium 133 L (135-149) mmol/L Potassium 4.2 (3.6-5.1) mmol/L Chloride 96 (96-114) mmol/L Carbon Dioxide 29 (20-32) mmol/L Anion Gap 8 (7-15) mEq/L BUN 9 (7-30) mg/dL Creatinine 0.8 (0.5-1.5) mg/dL Estimated Creat Clear 37.26 Estimated GFR 76 ml/min Glucose 108 (60-115) mg/dL Calcium 10.2 (8.4-10.6) mg/dL NT-Pro-B Natriuret Pep 154 (See Note) pg/mL Vitamin B12 539 (243-894) pg/mL 25-OH Vitamin D Total 68 (30-80) ng/mL Urine Color Yellow (Yellow) Urine Appearance Clear (Clear) Urine pH 7.5 (5.0-8.5) Ur Specific [place] 1.015 (1.000-1.030) Urine Protein Negative (Negative) Urine Glucose (UA) Negative (Negative) Urine Ketones Negative (Negative) Urine Blood Negative (Negative) Urine Nitrite Negative (Negative) Urine Bilirubin Negative (Negative) Urine Urobilinogen 0.2 (0.2-1.0) Ur Leukocyte Esterase Trace A (Negative) Urine RBC 0-2 (0-2) Urine WBC 0-2 (0-5) Ur Squamous Epith Cells Few (None-Few) Urine Bacteria None (None) Lab Acknowledgement Test Added Discharge Plan Discharge Clinical Impression: Fatigue, Peripheral neuropathy, Other social stressor Patient Disposition: Home w/ Parent or Adult Condition: Stable Additional Instructions: Stay well-hydrated. Continue to try to get quality and regular sleep. Yes I think acupuncture or massage might do you good. Spend time outside. Some labs are pending here for your follow-up appointment. I would consider holding your losartan blood pressure medication for 1-2 weeks since timing of the symptoms has correlated somewhat with initiating this treatment. Follow up appointment is scheduled at the [facility] on 11/09 with an 11:15am appointment time. If you have any questions or need to reschedule, please call [phone]. Prescriptions: No Action losartan [Cozaar] 25 mg tablet 25 mg PO QDAY Qty: 90 3RF sumatriptan succinate 25 mg tablet See Rx Instructions PO .COMPLEX Qty: 12 0RF Rx Instructions: take 1 tab at onset of headache; if no relief may repeat 1 tab after at least 2 hrs; max = 4 tabs/24 hr PO albuterol sulfate 90 mcg/actuation HFA aerosol inhaler 2 puff inhalation Q4-6H PRN (Reason: shortness of breath or wheezing) Qty: 8.5 1RF nitrofurantoin monohyd/m-cryst [Macrobid] 100 mg capsule 100 mg PO ONCE PRN (Reason: UTI Symptoms) Qty: 7 6RF Rx Instructions: must administer with a meal/food one capsule after intercourse Follow Up/Referrals: Kanchan Granda, [employer], [facility] [Primary Care Provider, Family Practice] Stand Alone Forms: [employer] [facility] Info Instructions
[2024-11-03 11:18] LABS: Appearance Urine Clear (Clear)
[2024-11-03 11:29] LABS: Hematocrit 41.9 % (33.0-51.0); Hemoglobin* 14.2 gm/dL (12.0-16.0); Immature Granulocytes Abs Auto 0.01 K/uL (0.00-0.30); Immature Granulocytes Pct Auto 0.1 %; Mean Corpuscular HGB Conc 34 gm/dL (32-36); Mean Corpuscular Hemoglobin 32 pg (26-34); Mean Corpuscular Volume 93 fL (80-100); RDW Coefficient of Variation % 11.9 % (11.5-15.5); Red Blood Count 4.50 m/uL (4.00-5.20); White Blood Count* 9.53 K/uL (4.50-11.00)
[2024-11-03 11:36] LABS: Lymphocytes Absolute Auto 1.70 K/uL (0.90-2.90)
[2024-11-03 11:37] LABS: Slide Review Reflex No
[2024-11-03 11:42] LABS: Chloride* 96 mmol/L (96-114); Potassium* 4.2 mmol/L (3.6-5.1); Sodium* 133 mmol/L (135-149)
[2024-11-03 11:45] LABS: Anion Gap 8 mEq/L (7-15); Blood Urea Nitrogen* 9 mg/dL (7-30); Carbon Dioxide* 29 mmol/L (20-32); Creatinine* 0.8 mg/dL (0.5-1.5); Est. Creatinine Clearance* 37.26; Estimated Glomerular Filt Rate 76 ml/min
[2024-11-03 11:46] LABS: Calcium* 10.2 mg/dL (8.4-10.6); Glucose* 108 mg/dL (60-115)
[2024-11-03 11:56] LABS: NT Pro B Type NatriureticPept* 154 pg/mL (See Note)
[2024-11-03 12:41] VITALS: BP 154/87; BP 159/80; BP 167/83; PULSE 75; PULSE 85; PULSE 92
[2024-11-03 13:20] VITALS: BP 154/87; PULSE 85; RESP 18; TEMP 37.1
[2024-11-03 13:25] LABS: Vitamin D 25 Hydroxy* 68 ng/mL (30-80)
[2024-11-03 13:58] LABS: Vitamin B12* 539 pg/mL (243-894)
== END 2024-11-03 13:20 | disposition home or self-care (01) ==
PROVIDERS: Emergency Provider Family Medicine; PCP Nurse Practitioner Family
DX: G62.9 Polyneuropathy, unspecified (principal); R53.83 Other fatigue; F43.9 Reaction to severe stress, unspecified; Z79.899 Other long term (current) drug therapy; R06.02 Shortness of breath
CPT/HCPCS: 36415; 80048; 81001; 82306; 82607; 83880; 84207; 85025; 87086; 99283; 99284

== ENCOUNTER 2024-11-16 10:07 | Outpatient (CLI) | payer MEDICARE, SELFPAY | END 2024-11-16 10:08 | disposition home or self-care (01) | PROVIDERS: PCP Nurse Practitioner Family; Visit Provider Nurse Practitioner Family | DX: R11.0 Nausea (principal); R53.83 Other fatigue; R82.90 Unspecified abnormal findings in urine | CPT/HCPCS: 80053; 81001; 82150; 83690; 85025; 86038; 86039; 87086 ==

== ENCOUNTER 2024-11-27 13:08 | Outpatient (CLI) | payer MEDICARE, SELFPAY | END 2024-11-27 13:09 | disposition home or self-care (01) | LOC: KYNREF 13:09 | PROVIDERS: PCP Nurse Practitioner Family; Visit Provider Nurse Practitioner Family | DX: I10 Essential (primary) hypertension (principal); E87.1 Hypo-osmolality and hyponatremia; R79.89 Other specified abnormal findings of blood chemistry | CPT/HCPCS: 80048 ==

== ENCOUNTER 2025-01-02 13:38 | Outpatient (CLI) | payer MEDICARE, SELFPAY ==
[2025-01-02 14:32] VITALS: BP 140/76; PULSE 68; RESP 18; O2SAT 97
--- NOTE | 2025-01-02 14:46 | W.PM.STED ---
Stress Test Note Date Date of test: 01/02/25 Providers Primary care provider: Kanchan Granda Stress test physician: Valentin Vyas Stress Test Note Stress test ordered: Stress Echo Indication for test: Chest pain Results discussion: This very nice lady presents for stress echo, discussed the risks benefits and side effects, she accepts these would proceed cardiac stress test medical history form is reviewed. Pretest EKG shows normal sinus rhythm, ventricular rate 84, blood pressure 159/72 standard Dewayne protocol is employed over a time course of 2 minutes and 30 seconds, achieved a metabolic equivalent of 3.8 Mets, maximum heart rate was 149, which is 122% of the maximum. Test is terminated because of fatigue. During this test there is no ST wave changes suggestive of ischemia, there is no dysrhythmias. Impression: Negative electrographic portion of stress echo, conditioning was poor. Follow up suggested: Await echo read, which will be done by Cardiology clinical correlation with this will be needed. Patient left this testing facility in good condition. There were no complications.
== END 2025-01-02 13:39 | disposition home or self-care (01) ==
LOC: STRESS 13:39
PROVIDERS: PCP Nurse Practitioner Family; Visit Provider Internal Medicine Cardiovascular Disease
DX: R07.89 Other chest pain (principal); R53.83 Other fatigue; R06.02 Shortness of breath
CPT/HCPCS: 93016; 93325; 93351

== ENCOUNTER 2025-04-09 13:15 | Outpatient (CLI) | payer MEDICARE, SELFPAY ==
--- NOTE | 2025-04-09 14:00 | CRLHL7_ITS ---
For Patients: As a result of the Century Cures Act, medical imaging exams and procedure reports are released immediately into your electronic medical record. You may view this report before your referring provider. If you have questions, please contact your health care provider. Indication: Chronic sinusitis. Technique: Noncontrast CT images of the paranasal sinuses. Comparison: None. Findings: No air-fluid levels to suggest acute sinusitis. [id number] right maxillary sinus opacification. Minimal left maxillary sinus mucosal thickening. The ethmoid infundibula are widely patent. Minimal mucosal thickening in the frontal recesses. The frontal sinuses are otherwise clear. Mild mucosal thickening in the ethmoid air cells. Mild right and minimal left sphenoid sinus mucosal thickening. The right sphenoethmoidal recess is patent. The left sphenoethmoidal recess is opacified. Mild leftward nasal septal deviation and 3 mm leftward directed septal spur. Trace opacification mastoid air cells bilaterally. Impression: 1. Cegi-xz-lkyrgzpi opacification of the right maxillary sinus. There is otherwise mild paranasal sinus mucosal disease. No air-fluid levels to suggest acute sinusitis. 2. Mild leftward nasal septal deviation and 3 mm leftward directed septal spur. Please note that all CT scans at this facility use dose modulation, iterative reconstruction, and/or weight-based dosing when appropriate to reduce radiation dose to as low as reasonably achievable. Dictated by Gama Dickerson MD @ 04/11/2025 7:51:42 AM (Electronically Signed)
== END 2025-04-09 13:16 | disposition home or self-care (01) ==
LOC: CT 13:16
PROVIDERS: PCP Nurse Practitioner Family; Visit Provider Nurse Practitioner Family
DX: J32.9 Chronic sinusitis, unspecified (principal); J32.0 Chronic maxillary sinusitis; J34.2 Deviated nasal septum
CPT/HCPCS: 70486